=== PATIENT | female | born 2000 | race Caucasian/White ===

== ENCOUNTER 2022-09-24 19:43 | Outpatient (REF) | payer OTHER, SELFPAY ==
[2022-09-29 10:08] LABS: Age Gdln ACOG Testing Note (.); IGP, rfx Aptima HPV ASCU Note (.)
== END 2022-09-24 19:44 | disposition home or self-care (01) ==
LOC: LAB 19:43
PROVIDERS: Visit Provider Physician Assistant
DX: Z12.4 Encounter for screening for malignant neoplasm of cervix (principal); Z11.51 Encounter for screening for human papillomavirus (HPV)
CPT/HCPCS: G0145

== ENCOUNTER 2022-10-15 11:09 | Outpatient (OUT) | payer OTHER, SELFPAY ==
--- NOTE | 2022-10-15 11:15 | US_ITS ---
The [address] [address] Patient Name: SOCORRO VALENCIA MRN: [id number] date: 2000 Sex: F Assigned Patient Location: US Current Patient Location: US Accession/Order Number: [id number] Exam Date: 10/15/2022 11:15 Report Date: 10/15/2022 12:07 At the request of: ARIELA ALEJANDRO Procedure: US pelvis w/ transvaginal EXAMINATION: US pelvis w/ transvaginal HISTORY: MENORRHAGIA COMPARISON: Ultrasound pelvis 10/18/2021 TECHNIQUE: Transabdominal and/or transvaginal sonographic examination was performed as indicated by examination type. FINDINGS: UTERUS: Normal size and appearance. Uterus size: 8.6 x 5.0 x 6.7 cm. ENDOMETRIUM: Normal homogeneous appearance. Endometrial thickness: 10 mm RIGHT OVARY: Contains numerous follicles of varying size throughout the ovary. Duplex Doppler demonstrates normal waveform and flow; resistive index 0.6. Ovary size: 5.3 x 2.6 x 2.6 cm LEFT OVARY: Contains numerous follicles of varying size throughout the ovary. Duplex Doppler demonstrates normal waveform and flow; resistive index 0.7. Ovary size: 3.9 x 2.0 x 3.0 cm CUL-DE-SAC: Unremarkable. No significant free fluid. BLADDER: Unremarkable. OTHER: None. US/US pelvis w/ transvaginal IMPRESSION: 1. Unremarkable uterus. No specific findings to account for patient's symptoms. 2. Both ovaries contain numerous follicles, which can be seen with polycystic ovarian syndrome, but the distribution throughout the ovary and variable size size is not typical for PCOS. Electronically authenticated by: EVELIA LLAMAS Date: 10/15/2022 12:07
== END 2022-10-15 11:10 | disposition home or self-care (01) ==
LOC: US 11:10
PROVIDERS: Visit Provider Obstetrics & Gynecology
DX: N92.1 Excessive and frequent menstruation with irregular cycle (principal)
CPT/HCPCS: 76830; 76856

== ENCOUNTER 2023-01-22 08:43 | Outpatient (OUT) | payer OTHER, SELFPAY | END 2023-01-22 08:44 | disposition home or self-care (01) | PROVIDERS: Visit Provider Obstetrics & Gynecology | DX: Z01.818 Encounter for other preprocedural examination (principal); N92.0 Excessive and frequent menstruation with regular cycle; N93.9 Abnormal uterine and vaginal bleeding, unspecified; R10.2 Pelvic and perineal pain ==

== ENCOUNTER 2023-02-05 06:08 | Day surgery (SDC) | payer OTHER, SELFPAY ==
[2023-01-22 09:17] VITALS: BP 118/70; PULSE 63; RESP 14; TEMP 36.3; O2SAT 98; BMI 25.3
[2023-02-05] VITALS (9 sets, daily range): BP systolic 92–112; BP diastolic 49–71; PULSE 55–88; RESP 10–24; TEMP 36.3–36.6; O2SAT 97–99; BMI 25.1
[2023-02-05 06:19] LABS: Basophils Absolute Auto 0.1 10^3/uL (0.0-0.1); Basophils Percent Auto 0.9 % (0.2-2.0); Eosinophils Absolute Auto 0.1 10^3/uL (0.0-0.7); Eosinophils Percent Auto 1.7 % (0.9-7.0); Hemoglobin 14.2 g/dL (12.0-16.0); Immature Granulocytes Abs Auto 0.01 10^3/uL (0.00-0.03); Immature Granulocytes Pct Auto 0.2 % (0.0-0.5); Lymphocytes Absolute Auto 2.7 10^3/uL (1.2-3.8); Lymphocytes Percent Auto 40.6 % (20.5-60.0); Mean Corpuscular Hemoglobin 31.6 pg (26.7-34.0); Mean Corpuscular Volume 95.6 fL (81.0-99.0); Mean Platelet Volume 10.2 fL (9.5-13.5); Monocytes Absolute Auto 0.4 10^3/uL (0.3-0.8); Monocytes Percent Auto 6.3 % (1.7-12.0); Neutrophils Absolute Auto 3.3 10^3/uL (1.4-6.5); Neutrophils Percent Auto 50.3 % (43.0-75.0); Platelet Count 243 10^3/uL (150-450); Red Cell Distribution Width 12.4 % (11.0-15.0); White Blood Count 6.5 10^3/uL (4.0-11.0)
[2023-02-05 06:36] LABS: HCG Quantitative <1 mIU/mL
[2023-02-05] MEDS: LACTATED RINGER'S SOLUTION 1,000 ML 50 ML IV (06:41)
[2023-02-05] MEDS: HYDROMORPHONE HCL 0.5 MG/0.5 ML SYRINGE IV (08:32)
--- NOTE | 2023-02-05 08:44 | PC.NURSE ---
Peripad dry; having urge to void; placed on bedpan
--- NOTE | 2023-02-05 08:47 | PC.NURSE ---
Removed from bedpan; unable to void. Peripad dry
[2023-02-05] MEDS: HYDROCODONE/ACET 5-325 MG TABLET 1 TAB PO (09:09)
--- NOTE | 2023-02-05 09:33 | PC.NURSE ---
Denies urge to void; peripad dry
--- NOTE | 2023-02-05 09:43 | PC.NURSE ---
Up to bathroom and voids clear yellow without difficulty; scant bloody drainage on peripad
--- NOTE | 2023-02-05 10:31 | PM.ONB ---
Brief Operative Note Date of procedure: 02/05/23 Pre-op diagnosis: menorrhagia Post-op diagnosis: same as pre-op Procedure: NAME OF PROCEDURE: [ ] Radha endometrial ablation with hysteroscopy. PROCEDURE: The patient was taken back to the OR where she was prepped and draped in the normal sterile fashion after being placed in the dorsal lithotomy position, after being placed under general anesthesia without difficulty.? A weighted speculum was placed into the vagina. The anterior lip was grasped with a single tooth tenaculum. The patient was then sounded to approximated 8cm. The patient?s cervix was gently dilated using hegardilators. The hysteroscope was passed through the cervix into the uterus where both ostia were seen. No gross evidence of polyps, fibroids or malignancy. The cervical length was noted to be 4 cm. The total cavity length is 4cm.? The Radha ablation apparatus was set to approximately 4cm in length. This was placed through the cervix and into the uterus. After the seal was tested, at that time the total ablation of 120 seconds was performed with the Radha withoutdifficulty. All instruments were removed from the vagina. Excellent hemostasis noted.? Sponge and lap count correct times 2.? Patient taken to recovery in stable condition. Anesthesia: GETA Surgeon: Shaan Witt Estimated blood loss (mL): 5 Pathology: none sent Condition: stable Disposition: PACU
== END 2023-02-05 09:50 | disposition home or self-care (01) ==
PROVIDERS: Visit Provider Obstetrics & Gynecology
PROC: (CPT 952; principal; 2023-02-05 07:30)
DX: N92.0 Excessive and frequent menstruation with regular cycle (principal); N93.9 Abnormal uterine and vaginal bleeding, unspecified; R10.2 Pelvic and perineal pain; F32.A Depression, unspecified; F17.210 Nicotine dependence, cigarettes, uncomplicated
CPT/HCPCS: 58563; 36415; 84702; 85025; J1170; J2704

== ENCOUNTER 2023-12-13 20:29 | Outpatient (REF) | payer BC, SELFPAY ==
--- OUTSIDE RECORDS SUMMARY | 2023-12-13 20:34 | XMS_ITS | CCD ---
Author Organization [facility] Care Team Providers Care Director Property Name Role Phone GIGI MITCH ALLISON Unavailable CHANDANA Armstrong Unavailable Unavailable NO PRIMARY CARE, Unavailable Unavailable Lilliam Gonzalez Primary Care Physician Fernanda MNUROE Unavailable Raquel Nolan Primary Care Physician [phone] Unavailable Primary Care Provider Unavailhoney WITT ., DR TITUS Admitting Unavailable ALMA NOLAN Primary Care Unavailable JAVON ., DR TITUS Attending Unavailable JAVON ., DR TITUS Consulting Unavailable RAD LICEA Consulting Unavailable STEW IIKAYA Consulting Unavailable JAVON ., DR TITUS Attending Unavailable JAVON ., DR TITUS Admitting Unavailable JAVON ., DR TITUS Admitting Unavailable JAVON ., DR TITUS Attending Unavailable JAVON ., DR TITUS Consulting Unavailable ZIEBER, DR EVELIA Gutierrez Consulting Unavailable JAVON ., DR TITUS Admitting Unavailable MILFORD, DR BAO Painter Consulting Unavailable RAQUEL NOLANH Primary Care Unavailable JAVON ., DR TITUS Attending Unavailable JAVON ., DR TITUS Consulting Unavailable DO Amberly Whitehead Attending Unavailable Jacinto Mendiola Attending Unavailable Tony Aguirre Attending Unavailable Tony Aguirre Attending Unavailable Tony Aguirre Admitting Unavailable MARY NARAYAN Attending Unavailab ARIADNA Monsivais Attending Unavailable HENRRY PORRAS Attending Unavailable RAQUEL NOLAN Attending Unavailable TERESA AGUIRRE Attending Unavailable TERESA AGUIRRE Attending Unavailable Medications Current Medications Medication Drug Class(es) Dates Sig (Normalized) Sig (Original) acetaminophen 325 mg / HYDROcodone bitartrate 5 mg oral tablet (2 sources) Opioid Agonist Start: 09-18-2021 [place] 325 mg-5 mg oral tablet 1 tab(s), Oral, q6hr for pain, 10 tab(s), Refill(s) 0 Start Date: 09/18/21 Status: Ordered amoxicillin 875 mg / clavulanate 125 mg oral tablet (1 source) Penicillin-class Antibacterial Start: 09-18-2021 End: 09-28-2021 Augmentin 875 mg-125 mg Tab 1 tab(s), Oral, q12hr for 10 day(s), 20 tab(s), Refill(s) 0 Start Date: 09/18/21 Stop Date: 09/28/21 Status: Ordered cephalexin 500 mg oral capsule (4 sources) Cephalosporin Antibacterial Start: 06-16-2020 take 1 capsule by mouth every twelve hours Keflex 500 mg Cap 500 mg = 1 cap(s), Oral, q12hr, # 14 cap(s), Refills(s) 0, Pharmacy: [facility], 175, cm, 06/16/20 13:40:00 EDT, Height/Length Dosing, 70.8, kg, 06/16/20 13:40:00 EDT, Weight Dosing Start Date: 06/16/20 Status: Ordered dicyclomine hydrochloride 10 mg oral capsule (1 source) Anticholinergic Start: 09-18-2021 End: 09-25-2021 take 1 capsule by mouth four times daily Bentyl 10 mg Cap 10 mg = 1 cap(s), Oral, QID, X 7 day(s), # 14 cap(s), Refills(s) 0 Start Date: 09/18/21 Stop Date: 09/25/21 Status: Ordered levonorgestrel 0.330695 mg/hr intrauterine system (4 sources) Progestin, Progestin-containing Intrauterine Device Start: 08-29-2019 Liletta 52 mg IUD Refills(s) 0 Start Date: 08/29/19 Status: Ordered Start: 08-29-2019 Liletta 52 mg IUD Refills(s) 0 Start Date: 08/29/19 Status: Ordered methocarbamol 500 mg oral tablet (1 source) Muscle Relaxant Start: 06-29-2023 End: 07-02-2023 take 1 tablet by mouth three times daily Robaxin 500 mg Tab 500 mg = 1 tab(s), Oral, TID, X 3 day(s), # 9 tab(s), Refills(s) 0, Pharmacy: [facility] 1985, 175, cm, 06/29/23 19:28:00 EDT, Height/Length Dosing, 82, kg, 06/29/23 19:28:00 EDT, Weight Dosing Start Date: 06/29/23 Stop Date: 07/02/23 Status: Ordered naproxen 500 mg oral tablet (1 source) Nonsteroidal Anti-inflammatory Drug Start: 06-29-2023 take 1 tablet by mouth twice daily as needed for pain Naprosyn 500 mg Tab 500 mg = 1 tab(s), Oral, BID, PRN for pain, # 20 tab(s), Refills(s) 0, Pharmacy: [facility], 175, cm, 06/29/23 19:28:00 EDT, Height/Length Dosing, 82, kg, 06/29/23 19:28:00 EDT, Weight Dosing Start Date: 06/29/23 Status: Ordered ondansetron 4 mg oral tablet (4 sources) Serotonin-3 Receptor Antagonist Start: 09-18-2021 take 1 tablet by mouth every eight hours as needed for nausea Zofran 4 mg Tab 4 mg = 1 tab(s), Oral, q8hr, PRN Nausea/Vomiting, # 12 tab(s), Refills(s) 0 Start Date: 09/18/21 Status: Ordered Comment on above: Take 4 mg by mouth e very 8 hours as needed for nausea/vomiting. Zofran ODT 4 mg Tab-Dis (3 sources) Start: 06-29-2023 take 1 tablet by mouth every eight hours Zofran ODT 4 mg Tab-Dis 4 mg = 1 tab(s), Oral, q8hr, # 12 tab(s), Refills(s) 0, Pharmacy: [facility], 175, cm, 06/29/23 19:28:00 EDT, Height/Length Dosing, 82, kg, 06/29/23 19:28:00 EDT, Weight Dosing Start Date: 06/29/23 Status: Ordered Start: 02-16-2023 take 1 tablet by sloan th every eight hours as needed for nausea Zofran ODT 4 mg Tab-Dis 4 mg = 1 tab(s), Oral, q8hr, PRN Nausea/Vomiting, # 20 tab(s), Refills(s) 0, Pharmacy: [facility] 1986, 175.3, cm, 02/16/23 5:18:00 EST, Height/Length Dosing, 76, kg, 02/16/23 5:18:00 EST, Weight Dosing Start Date: 02/16/23 Status: Ordered Completed/Discontinued Medications Medication Drug Class(es) Dates Sig (Normalized) Sig (Original) amoxicillin 875 mg oral tablet (2 sources) Penicillin-class Antibacterial take 1 tablet by mouth twice daily amoxicillin (AMOXIL) 875 mg tablet Take 875 mg by mouth twice daily. 0 Active Comment on above: Take 875 mg by mouth twice daily. polyethylene glycol 3350 84490 mg powder for oral solution (2 sources) Osmotic Laxative Start: 10-10-2021 polyethylene glycol 3350 (MIRALAX) 17 gram/dose powder Take 17 g by mouth once daily. Dissolve dose in 4 - 8 ounces of liquid and take as directed. 507 g 5 10/10/2021 Active Comment on above: Take 17 g by mouth o nce daily. Dissolve dose in 4 - 8 ounces of liquid and take as directed. Problems Active Problems Problem Classification Problem Date Documented Da te Episodic/Chronic Abdominal pain (2 sources) Abdominal pain; Translations: [Unspecified abdominal pain] Onset: 11-17-2021 Episodic Contraceptive and procreative management (4 sources) Encounter for sterilization; Translations: [ENCOUNTER FOR STERILIZATION] Onset: 06-24-2022 Episodic Endometriosis (1 source) Endometriosis; Translations: [ENDOMETRIOSIS RT OVARY UNSPEC DEPTH] Onset: 07-08-2022 Headache; including migraine (1 source) Headache; Translations: [Headache, unspecified] Onset: 06-29-2023 Episodic Menstrual disorders (4 sources) Irregular menstruation, unspecified; Translations: [IRREGULAR MENSTRUATION UNSPECIFIED] Onset: 10-18-2021 Chronic Mood disorders (7 sources) Depressive disorder 12-28-2018 Chronic Nausea and vomiting (3 sources) Vomiting; Translations: [Vomiting, unspecified] Onset: 11-17-2021 Episodic Noninfectious gastroenteritis (3 sources) Noninfectious enteritis; Translations: [Noninfective gastroenteritis and colitis, unspecified] Onset: 09-18-2021 Episodic Other female genital disorders (2 sources) Abnormal uterine bleeding; Translations: [Abnormal uterine and vaginal bleeding, unspecified] Onset: 07-16-2021 Chronic Other female genital disorders (1 source) Other specified noninflammatory disorders of vagina; Translations: [OTH SPEC NONINFLAMMATORY D/O VAGINA] Onset: 07-08-2022 Episodic Other gastrointestinal disorders (2 sources) Constipation; Translations: [Constipation, unspecified] Episodic Other gastrointestinal disorders (2 sources) Diarrhea; Translations: [Diarrhea, unspecified] Onset: 11-17-2021 Episodic Other and delivery including normal (7 sources) Normal 05-03-2019 Episodic Ovarian cyst (2 sources) Cyst of ovary; Translations: [Unspecified ovarian cyst, unspecified side] Onset: 09-18-2021 Episodic Substance-related disorders (16 sources) Smoker; Translations: [Nicotine dependence, cigarettes, uncomplicated] Onset: 06-11-2022 Resolved: 09-25-2016 11-21-2018 Chronic Comment on above: Added secondary to d ocumentation in Social History. Added secondary to d ocumentation in Social History. Syncope (1 source) Syncope and collapse; Translations: [Syncope and collapse] Onset: 02-16-2023 Episodic Past or Other Problems Problem Classification Problem Date Documented Da te Episodic/Chronic Unclassified (14 sources) Onset: 09-11-2017 Resolved: 07-18-2019 11-04-2017 Results Test Name Value Interpretation Reference Range Facility B hCG [place] 06-30-2023 Beta HCG ( test) Ql Negative Normal [facility] Comment on above: Performed By: #### 2 [id number], [id number], [id number], [id number], [id number], [id number] ####[facility] [id number] [place] [address] CT Abdomen/Pelvis w/ Contras ton 06-30-2023 CT Abdomen/Pelvis w/ Contrast Exam Date/Time: 06/29/2023 22:13 EDT Reason for Exam: Abdominal pain, acute, nonlocalized;Other (please specify) Report IMPRESSION: NO EVIDENCE OF ACUTE ABDOMINAL OR PELVIC PATHOLOGY. CLINICAL HISTORY: Abdominal pain, acute, nonlocalized. COMPARISON: 09/17/2021. COMMENT: Images were obtained following the administration of Intravenous contrast. The liver, spleen, pancreas, gallbladder, adrenal glands, and kidneys are normal in appearance. The renal collecting systems are not dilated. No retroperitoneal lymphadenopathy is evident. The abdominal aorta is normal. No aneurysm is noted. Evaluation of bowel is limited. The bowel loops are not dilated, and there is no evidence of bowel obstruction. The appendix is normal. Fecal material in the colon limits evaluation. There is no evidence of colitis or diverticulitis. No abdominal inflammatory complex nor free air nor free fluid is noted. The uterus is retroverted. There are small follicular ovarian cysts bilaterally. There is little fluid in the lumen of the urinary bladder, and lack of fluid distention of the bladder limits assessment. No bladder calculus is evident. No pelvic mass nor pelvic lymphadenopathy is noted. The visualized bones are unremarkable. All CT scans at this facility use dose modulation, iterative reconstruction, and/or weight based dosing when appropriate to reduce radiation dose to as low as reasonably achievable. Unless otherwise stated, incidental findings identified in this report do not require routine follow-up imaging. Ordering Provider: Amberly Whitehead FINAL REPORT Dictated: 06/30/2023 10:32 am Pk Foley M.D. Signed (Electronic Signature): 06/30/2023 10:32 am Signed by: Pk Foley M.D. Transcribed by: KEE Technologist: ABIGAIL Technical Comments GFR (mL/min/1/73m2) n/a-age Contrast: Isovue 300 Contrast amount in ml's: 100 Normal [facility] CT Head or Brain w/o Contras ton 06-30-2023 CT Head or Brain w/o Contrast Exam Date/Time: 06/29/2023 22:13 EDT Reason for Exam: Headache, new or worsening, neuro deficit;Other (please specify) Report IMPRESSION: NEGATIVE CT SCAN OF THE BRAIN. CLINICAL HISTORY: Headache, new or worsening, neuro deficit. COMMENT: Unenhanced images were obtained. The ventricles and basal cisterns and cortical sulci appear normal. There is no mass effect nor midline shift. No abnormal attenuation within the brain is noted. There is no evidence of intracranial hemorrhage nor extra-axial hematoma. No mass lesion is evident. No skull fracture is noted. All CT scans at this facility use dose modulation, iterative reconstruction, and/or weight based dosing when appropriate to reduce radiation dose to as low as reasonably achievable. Ordering Provider: Amberly Whitehead FINAL REPORT Dictated: 06/30/2023 8:43 am Pk Foley M.D. Signed (Electronic Signature): 06/30/2023 8:43 am Signed by: Pk Foley M.D. Transcribed by: KEE Technologist: ABIGAIL Normal [facility] Discharge Instructionson Discharge Instructions [id number] #[id number] Normal [facility] ED Clinical Summaryon 2023 ED Clinical Summary [place] [id number] ED Clinical Summary Person Information Name: SOCORRO JOSEPH [facility] Age: 22 Years : 2000 Sex: Female Language: Wolof PCP: Raquel Nolan MD Marital Status: Single Visit Id: Visit Reason: Vomiting; Nausea; Headache; PAIN IN BACK OF NECK AND HEAD LEFT SIDE Speciality: Acuity: 3 Enc Type: Emergency Med Service: Emergency Arrival: 06/29/2023 19:10:29 Discharge: 06/30/2023 00:02:52 LOS: 000 04:52 Checkin: 06/29/2023 19:10:29 Checkout: 06/30/2023 00:02:52 Dispo Type: Home (Routine DC) EVENTS: Event Name Event Status Request Date/Time Start Date/Time Complete Date/Time Arrive Complete 06/29/2023 19:10:29 06/29/2023 19:10:29 06/29/2023 19:10:29 Document Home Meds Request 06/29/2023 19:10:29 Triage Complete 06/29/2023 19:10:29 06/29/2023 19:28:56 06/29/2023 19:28:56 Registration Complete 06/29/2023 19:13:57 06/29/2023 19:13:57 06/29/2023 19:13:57 Reg Complete Request 06/29/2023 19:13:57 Reg Bed Request Complete 06/29/2023 19:13:57 06/29/2023 19:13:57 06/29/2023 19:13:57 Bed Assign Complete 06/29/2023 20:03:28 06/29/2023 20:03:28 06/29/2023 20:03:28 Dr Exam Complete 06/29/2023 20:03:28 06/29/2023 20:05:22 06/29/2023 20:05:22 RN Exam Complete 06/29/2023 20:03:28 06/29/2023 20:22:09 06/29/2023 20:22:09 Registration Request 06/29/2023 20:05:22 Meds Admin Complete 06/29/2023 21:01:22 06/29/2023 21:27:45 Pending Labs Complete 06/29/2023 21:01:22 06/29/2023 22:03:06 Lab Complete 06/29/2023 21:01:22 06/29/2023 21:52:52 CT Complete 06/29/2023 21:01:22 06/29/2023 21:35:32 06/29/2023 22:13:21 Pending Labs Complete 06/29/2023 21:34:28 06/29/2023 21:34:28 06/29/2023 21:52:52 Lab Complete 06/29/2023 21:34:28 06/29/2023 21:34:28 06/29/2023 21:52:52 Discharge Complete 06/29/2023 23:51:28 06/30/2023 00:02:57 06/30/2023 00:02:57 Transfer Complete 06/30/2023 00:02:57 06/30/2023 00:02:57 06/30/2023 00:02:57 ADDRESS: [address] [place] [id number] PHYS DOC NOTES: MEDICAL INFORMATION: Prescriptions Given: New Medications [facility], [address] [place], [place] [id number], [phone] methocarbamol (Robaxin 500 mg Tab) 1 Tablets By Mouth 3 times a day for 3 Days. Refills: 0. naproxen (Naprosyn 500 mg Tab) 1 Tablets By Mouth 2 times a day as needed for pain. Refills: 0. Medications to Continue Taking That Have Changed [facility], [address] [place], [place] [id number], [phone] START: ondansetron (Zofran ODT 4 mg Tab-Dis) 1 Tablets By Mouth every 8 hours. Refills: 0. Other Medications START: ondansetron (Zofran ODT 4 mg Tab-Dis) 1 Tablets By Mouth every 8 hours as needed Nausea/Vomiting. Refills: 0. PATIENT EDUCATION INFORMATION: Instructions: Nausea and Vomiting, Adult, Ozmf-so-Aqyo; General Headache Without Cause, Pwtg-hi-Slxc; Abdominal Pain, Adult, Rtsx-oz-Iqut Follow up: With: Address: When: Raquel [place] [address] Business (1) In 3 days 07/02/2023 Comments: You can take the medications as prescribed as needed for pain. Please follow-up with your primary care doctor in the next 2 to 3 days for further evaluation management. Please return to the ED for any new or worsening symptoms. DIAGNOSIS: Abdominal pain, acute; Headache; N&V (nausea and vomiting) Normal [facility] ED Note-Physicianon 06-30-19 ED Note-Physician Basic Information Time Seen: Amberly Whitehead DO 06/29/2023 20:05 Chief Complaint Pt. reports headache since wednesday and today associated with nuasea and abdominal pain. History of Present Illness Patient is a 22-year-old female with no past medical history presenting to the ED for evaluation of headache, in addition to nausea and abdominal pain. Patient states she has had tightness in her neck since Wednesday, wrapping around to the front of her head with some blurred vision in her left eye. Patient states today started having nausea vomiting in addition to left lower quadrant abdominal pain. Patient denies recent falls, trauma, fevers, chills, dizziness or lightheadedness. Denies previous history of headaches. Review of Systems A 10 point review of systems is negative except as noted above. Medical and Surgical History: Reviewed and noted Social history: Lives at home Tobacco: Denies Physical Exam Vitals & Measurements T: 36.9 ?C(Oral) HR: 58(Peripheral) RR: 16 BP: 115/57 SpO2: 99% HT: 175 cm WT: 82 kg BMI: 26.78 General: Well developed, non toxic appearing, no acute distress HEENT: Head atraumatic, Mucosa moist, hearing grossly normal Neck: No JVD, tracheal deviation Cardiac: Regular rate, rhythm, no murmurs, or gallops, 2+ radial pulses Respiratory: Lungs clear to auscultation B/L, normal respiratory effort Abdomen: Soft, mild tenderness palpation of the left lower quadrant no rebound or guarding, no peritoneal signs Extremities: No edema noted in the LE B/L, no tenderness to palpation Neurologic: Alert and oriented, speech clear cranial nerves III through XII intact, no focal neurologic deficits, no ataxia with finger-nose testing Skin: No rashes or lesions Psych: Appropriate mood and behavior Medical Decision Making MEDICAL DECISION MAKING Number and Complexity of Problems Differential Diagnosis: [] [facility] Data External documents reviewed: [] My EKG interpretation: [] My CT interpretation: [] My X-ray interpretation: [] My Ultrasound interpretation: [] Decision rules/scores evaluated: [] Discussed with: [] Treatment and Disposition ED Course: Patient is a 22-year-old female presenting to the ED for evaluation of headache, abdominal pain, nausea and vomiting. Patient is nontoxic and on arrival, no acute distress. No focal deficits noted on examination. Laboratory evaluation is obtained is unremarkable, urinalysis is without signs of infection. Patient is given Toradol, Reglan, IV fluids in addition to Benadryl and Decadron for treatment of her headache. CT imaging is ordered. Patient's laboratory evaluation is unremarkable, urinalysis without signs of infection. CT imaging shows no acute findings, CT ab pelvis does not show any acute intra-abdominal pathology. On reevaluation patient is feeling improved. Discussed findings with patient she is comfortable with discharge home. She is discharged home with Debora Robaxin in addition to Zofran. She is follow-up with her primary care doctor in the next 2 to 3 days. She is to return to the ED for any new or worsening symptoms. Shared decision making: [] Code status: [] Assessment/Plan Abdominal pain, acute (R10.9: Unspecified abdominal pain) Headache (R51.9: Headache, unspecified) N&V (nausea and vomiting) (R11.2: Nausea with vomiting, unspecified) Orders: dexamethasone, 10 mg = 2.5 mL, Injection, IV Push, Once, Stop date 06/29/23 21:00:00 EDT, STAT, Start date 06/29/23 21:00:00 EDT, 06/29/23 21:00:00 EDT diphenhydrAMINE, 25 mg = 0.5 mL, Injection, IV Push, Once, Stop date 06/29/23 21:00:00 EDT, STAT, Start date 06/29/23 21:00:00 EDT, 06/29/23 21:00:00 EDT ketorolac, 30 mg = 1 mL, Injection, IV Push, Once, Stop date 06/29/23 21:00:00 EDT, STAT, Start date 06/29/23 21:00:00 EDT, 06/29/23 21:00:00 EDT methocarbamol, 500 mg = 1 tab(s), Oral, TID, X 3 day(s), # 9 tab(s), Refills(s) 0, Pharmacy: [facility] 1985, 175, cm, 06/29/23 19:28:00 EDT, Height/Length Dosing, 82, kg, 06/29/23 19:28:00 EDT, Weight Dosing metoclopramide, 10 mg = 2 mL, Injection, IV Push, Once, Stop date 06/29/23 21:00:00 EDT, STAT, Start date 06/29/23 21:00:00 EDT, 06/29/23 21:00:00 EDT naproxen, 500 mg = 1 tab(s), Oral, BID, PRN for pain, # 20 tab(s), Refills(s) 0, Pharmacy: [facility] 1985, 175, cm, 06/29/23 19:28:00 EDT, Height/Length Dosing, 82, kg, 06/29/23 19:28:00 EDT, Weight Dosing ondansetron, 4 mg = 1 tab(s), Oral, q8hr, # 12 tab(s), Refills(s) 0, Pharmacy: [facility] 1985, 175, cm, 06/29/23 19:28:00 EDT, Height/Length Dosing, 82, kg, 06/29/23 19:28:00 EDT, Weight Dosing Sodium Chloride 0.9% intravenous solution, 1,000 mL, Soln-IV, IV, Once, Stop date 06/29/23 21:00:00 EDT, STAT, Start date 06/29/23 21:00:00 EDT, Infuse over 61, minute(s) Basic Metabolic Panel Beta hCG Qual CBC w/ Auto Diff CT Abdomen/Pelvis w/ Contrast CT Head or Brain w/o Contrast eGFR Hepatic Function Panel Lipase Level UA with Cult Rfl (more content not included)... Normal [facility] Comment on above: Result Comment: Elec tronically Signed By: Amberly Whitehead DO\.br\Date and Time Signed: 06/29/23 23:56 EDT ED Patient Education Noteon 06-30-2023 ED Patient Education Note Gastroenterolo gy Nausea and Vomiting, Adult Nausea is feeling that you have an upset stomach and that you are about to vomit. Vomiting is when food in your stomach forcefully comes out of your mouth. Vomiting can make you feel weak. If you vomit, or if you are not able to drink enough fluids, you may not have enough water in your body (get dehydrated). If you do not have enough water in your body, you may: ? Feel tired. ? Feel thirsty. ? Have a dry mouth. ? Have cracked lips. ? Pee (urinate) less often. Older adults and people with other diseases or a weak body defense system (immune system) are at higher risk for not having enough water in the body. If you feel like you may vomit or you vomit, it is important to follow instructions from your doctor about how to take care of yourself. Follow these instructions at home: Watch your symptoms for any changes. Tell your doctor about them. Eating and drinking ? Take an ORS (oral rehydration solution). This is a drink that is sold at pharmacies and stores. ? Drink clear fluids in small amounts as you are able, such as: ? Water. ? Ice chips. ? Fruit juice that has water added (diluted fruit juice). ? Low-calorie sports drinks. ? Eat bland, twqb-hr-hempnx foods in small amounts as you are able, such as: ? Bananas. ? Applesauce. ? Rice. ? Low-fat (lean) meats. ? Dane. ? Crackers. ? Avoid drinking fluids that have a lot of sugar or caffeine in them. This includes energy drinks, sports drinks, and soda. ? Avoid alcohol. ? Avoid spicy or fatty foods. General instructions ? Take nthq-zhl-ktrhmqq and prescription medicines only as told by your doctor. ? Drink enough fluid to keep your pee (urine) pale yellow. ? Wash your hands often with soap and water for at least 20 seconds. If you cannot use soap and water, use hand donor services manager. ? Make sure that everyone in your home washes their hands well and often. ? Rest at home until you feel better. ? Watch your condition for any changes. ? Take slow and deep breaths when you feel like you may vomit. ? Keep all follow-up visits. Contact a doctor if: ? Your symptoms get worse. ? You have new symptoms. ? You have a fever. ? You cannot drink fluids without vomiting. ? You feel like you may vomit for more than 2 days. ? You feel light-headed or dizzy. ? You have a headache. ? You have muscle cramps. ? You have a rash. ? You have pain while peeing. Get help right away if: ? You have pain in your chest, neck, arm, or jaw. ? You feel very weak or you faint. ? You vomit again and again. ? You have vomit that is bright red or looks like black coffee grounds. ? You have bloody or black poop (stools) or poop that looks like tar. ? You have a very bad headache, a stiff neck, or both. ? You have very bad pain, cramping, or bloating in your belly (abdomen). ? You have trouble breathing. ? You are breathing very quickly. ? Your heart is beating very quickly. ? Your skin feels cold and clammy. ? You feel confused. ? You have signs of losing too much water in your body, such as: ? Dark pee, very little pee, or no pee. ? Cracked lips. ? Dry mouth. ? Sunken eyes. ? Sleepiness. ? Weakness. These symptoms may be an emergency. Get help right away. Call 911. ? Do not wait to see if the symptoms will go away. ? Do not drive yourself to the hospital. Summary ? Nausea is feeling that you have an upset stomach and that you are about to vomit. Vomiting is when food in your stomach comes out of your mouth. ? Follow instructions from your doctor about eating and drinking. ? Take encd-dwy-spqzoei and prescription medicines only as told by your doctor. ? Contact your doctor if your symptoms get worse or you have new symptoms. ? Keep all follow-up visits. This information is not intended to replace advice given to you by your health care provider. Make sure you discuss any questions you have with your health care provider. Document Revised: 09/26/2021 Document Reviewed: 09/26/2021 [employer] Patient Education ? 2022 [employer]. Abdominal Pain, Adult Many things can cause belly (abdominal) pain. Most times, belly pain is not dangerous. Many cases of belly pain can be watched and treated at home. Sometimes, though, belly pain is serious. Your doctor will try to find the cause of your belly pain. Follow these instructions at home: Medicines ? Take ogph-yro-olauqxv and prescription medicines only as told by your doctor. ? Do not take medicines that help you poop (laxatives) unless told by your doctor. General instructions ? Watch your belly pain for any changes. ? Drink enough fluid to keep your pee (urine) pale yellow. ? Keep all follow-up visits as told by your doctor. This is important. Contact a doctor if: ? Your belly pain changes or gets worse. ? You are not hungry, or y (more content not included)... Normal [facility] ED Patient Summaryon 024 ED Patient Summary [address], [place] [address] Patient Discharge Instructions Person Information Name: SOCORRO JOSEPH Age: 22 Years Arrival Date: 06/29/2023 19:10:29 Discharge Diagnosis: Abdominal pain, acute; Headache; N&V (nausea and vomiting) Primary Care Physician: Raquel Nolan MD Provider Information Primary Provider: Amberly Whitehead DO Advanced Sole Buffer:None The exam and treatment you received in the Emergency Department were for an urgent problem and are not intended as complete care. It is important that you follow up with a doctor, nurse practitioner, or physician?s programs assistant for ongoing care. If your symptoms become worse or you do not improve as expected and you are unable to reach your usual health care provider, you should return to the Emergency Department. We are available 24 hours a day. SOCORRO JOSEPH has been given the following list of patient education materials, prescriptions and follow-up instructions: Follow-up Instructions: With: Address: When: [place] [address] [place] [address] Business (1) In 3 days 07/02/2023 Comments: You can take the medications as prescribed as needed for pain. Please follow-up with your primary care doctor in the next 2 to 3 days for further evaluation management. Please return to the ED for any new or worsening symptoms. In the event that this physician does not participate in your insurance network, please consult with your insurance company to find a nearby participating provider. Patient Education Materials: Nausea and Vomiting, Adult, Jpym-ba-Hnzs; General Headache Without Cause, Ppoz-ll-Yoqt; Abdominal Pain, Adult, Kofa-ee-Afnj A MESSAGE TO ALL PATIENTS REGARDING OPIOIDS PRESCRIPTION OPIOIDS: WHAT YOU NEED TO KNOW Prescription opioids can be used to help relieve vhmtnndz-qk-qrtdct pain and are often prescribed following a surgery or injury, or for certain health conditions. These medications can be an important part of the treatment but also come with serious risks. It is important to work with your healthcare provider to make sure you are getting the safest, most effective care. WHAT ARE THE RISKS AND SIDE EFFECTS OF OPIOID USE? Prescription opioids carry serious risks of addiction and overdose, especially with prolonged use. An opioid overdose, often marked by slowed breathing, can cause sudden . The use of prescription opioids can have a number of side effects as well, even when taken as directed: ? Tolerance?meaning you might need to take more of the medication for the same pain relief ? Physical dependence?meaning you have symptoms of withdrawal when a medication is stopped ? Increased sensitivity to pain ? Constipation ? Nausea, vomiting, and dry mouth ? Sleepiness and dizziness ? Confusion ? Depression ? Low levels of testosterone that can result in lower sex drive, energy, and strength ? Itching and sweating RISKS ARE GREATER WITH: ? History of drug misuse, substance use disorder, or overdose ? Mental health conditions (such as depression or anxiety) ? Sleep apnea ? Older age (65 years and older) ? Avoid alcohol while taking prescription opioids. Also, unless specifically advised by your health care provider, medications to avoid include: ? Benzodiazepines (such as Xanax or Valium) ? Muscle relaxants (such as Soma or Flexeril) ? Hypnotics (such as Ambien or Lunesta) ? Other prescription opioids KNOW YOUR OPTIONS Talk to your health care provider about ways to manage your pain that don?t involve prescription opioids. Some of these options may actually work better and have fewer risks and side effects. Options may include: ? Pain relievers such as acetaminophen, ibuprofen, and naproxen ? Some medication that are also used for depression or seizures ? Physical therapy and exercise ? Cognitive behavioral therapy, a psychological, goal-directed approach, in which patients learn how to modify physical, behavioral, and emotional triggers of pain and stress. IF YOU ARE PRESCRIBED OPIOIDS FOR PAIN: ? Never take opioids in greater amounts or more often than prescribed. ? Follow up with your primary health care provider. o Work together to create a plan on how to manage your pain. o Talk about ways to help manage your pain that don?t involve prescription opioids. o Talk about any and all concerns and side effects. ? Help prevent misuse and abuse o Never sell or share prescription opioids. o Never use another person?s prescription opioids. ? Store prescription opioids in a secure place and out of reach of others (this may include visitors, children, friends, and family). ? Safely dispose of unused prescription opioids: Find your community drug take-back program or your pharmacy mail-back program, or flush them down the toilet, follow (more content not included)... Normal [facility] Prescriptions/Work Noteson 0 06-30-2023 Prescriptions/Work Notes [id number] #1.00TIFF Normal [facility] RAD - Preliminary Cat Scan R eporton 06-30-2023 RAD - Preliminary Cat Scan Report [id number] #1.00TIFF Normal [facility] BMPon 06-29-2023 Anion gap [Moles/Vol] 9 mmol/L Normal 6-16 [facility] Comment on above: Performed By: #### 2 636514, 19442909, 1244374, 9355756, 63357770, 2004117 ####[facility] [address] [place] [address] Calcium [Mass/Vol] 9.0 mg/dL Normal 8.9-11.1 [facility] Comment on above: Performed By: #### 2 823513, 56946213, 2341316, 6150751, 41020906, 0911552 ####[facility] [address] [place] [address] Chloride [Moles/Vol] 104 mmol/L Normal 101-111 [facility] Comment on above: Performed By: #### 2 413947, 71950516, 2145748, 1753649, 28428095, 0277519 ####[facility] [address] [place] [address] CO2 [Moles/Vol] 27 mmol/L Normal 21-31 [facility] Comment on above: Performed By: #### 2 150081, 35914336, 7929643, 4273727, 12577800, 0259645 ####[facility] [address] [place] [address] Creatinine [Mass/Vol] 0.7 mg/dL Normal 0.5-1.3 [facility] Comment on above: Performed By: #### 2 701642, 57974513, 2682406, 4021485, 21898217, 8820743 ####[facility] [address] [place] [address] Glucose [Mass/Vol] 93 mg/dL Normal 55-199 [facility] Comment on above: Performed By: #### 2 312918, 37747317, 8980643, 1475695, 29177592, 3446306 ####[facility] [address] [place] [address] Potassium [Moles/Vol] 3.7 mmol/L Normal 3.5-5.3 [facility] Comment on above: Performed By: #### 2 832071, 17886430, 1580071, 7352138, 41337225, 6438707 ####[facility] [address] [place] [address] Sodium [Moles/Vol] 136 mmol/L Normal 135-145 [facility] Comment on above: Performed By: #### 2 496601, 62419206, 3163984, 4118757, 37114001, 8329304 ####[facility] [address] [place] [address] Urea nitrogen [Mass/Vol] 13 mg/dL Normal 5-21 [facility] Comment on above: Performed By: #### 2 448324, 56582991, 4544872, 9326750, 56811685, 6605507 ####[facility] [address] [place] [address] Urea nitrogen/Creatinine [Mass ratio] 19 No Units Normal 10-20 [facility] Comment on above: Performed By: #### 2 297853, 14586644, 4498489, 0509601, 87838419, 7985306 ####[facility] [address] [place] [address] CBC w/ Auto Diffon 4 Basophils/100 WBC (Bld) 0.3 % Normal 0.0-2.0 [facility] Comment on above: Order Comment: Per eva Salter, wait to poke until they try for an IV. [id number] 06/29/2023 21:16:35 EDT Performed By: #### 2 068600, 68834374, 1990167, 8203555, 02381891, 2129535 ####[facility] [address] [place] [address] Basophils/Leukocytes Auto (Bld) [Pure # fraction] 0.0 E9/L Normal 0.0-0.2 [facility] Comment on above: Order Comment: Per eva Salter, wait to poke until they try for an IV. [id number] 06/29/2023 21:16:35 EDT Performed By: #### 2 879108, 43352866, 3005984, 5000271, 92489137, 1991246 ####[facility] [address] [place] [address] Eosinophils (Bld) [#/Vol] 0.1 E9/L Normal 0.0-0.5 [facility] Comment on above: Order Comment: Per eva Salter, wait to poke until they try for an IV. [id number] 06/29/2023 21:16:35 EDT Performed By: #### 2 450230, 41232053, 8807909, 7430608, 51987486, 6837087 ####[facility] [address] [place] [address] Eosinophils/100 WBC (Bld) 1.2 % Normal 0.0-8.0 [facility] Comment on above: Order Comment: Per eva Salter, wait to poke until they try for an IV. [id number] 06/29/2023 21:16:35 EDT Performed By: #### 2 035877, 29349661, 3443899, 5026287, 22836668, 2451546 ####[facility] [address] [place] [address] Erythrocyte distribution width (RBC) [Ratio] 13.1 % Normal 10.9-14.2 [facility] Comment on above: Order Comment: Per eva Salter, wait to poke until they try for an IV. [id number] 06/29/2023 21:16:35 EDT Performed By: #### 2 016758, 20311769, 7336811, 6949136, 18584778, 7659959 ####[facility] [address] [place] [address] Hematocrit (Bld) [Volume fraction] 39.6 % Normal 34.0-46.0 [facility] Comment on above: Order Comment: Per r andrew Salter, wait to poke until they try for an IV. [id number] 06/29/2023 21:16:35 EDT Performed By: #### 2 751786, 51824768, 3289862, 5732379, 11114233, 0636905 ####[facility] [address] [place] [address] Hemoglobin (Bld) [Mass/Vol] 13.2 g/dL Normal 12.0-16.0 [facility] Comment on above: Order Comment: Per r andrew Salter, wait to poke until they try for an IV. [id number] 06/29/2023 21:16:35 EDT Performed By: #### 2 034818, 86831879, 7542153, 4776806, 64357623, 5191450 ####[facility] [address] [place] [address] Lymphocytes (Bld) [#/Vol] 2.0 E9/L Normal 1.0-4.0 [facility] Comment on above: Order Comment: Per r andrew Salter, wait to poke until they try for an IV. [id number] 06/29/2023 21:16:35 EDT Performed By: #### 2 399691, 49361776, 4282176, 9979405, 37636257, 4901259 ####[facility] [address] [place] [address] Lymphocytes/100 WBC (Bld) 22.0 % Normal 14.0-50.0 [facility] Comment on above: Order Comment: Per r andrew Salter, wait to poke until they try for an IV. [id number] 06/29/2023 21:16:35 EDT Performed By: #### 2 989577, 65019505, 4117433, 4228241, 19249411, 5528862 ####[facility] [address] [place] [address] MCH (RBC) [Entitic mass] 30.7 pg Normal 27.0-34.0 [facility] Comment on above: Order Comment: Per eva Salter, wait to poke until they try for an IV. [id number] 06/29/2023 21:16:35 EDT Performed By: #### 2 375208, 91379975, 4352656, 7097666, 56836779, 6501982 ####[facility] [address] [place] [address] MCHC (RBC) [Mass/Vol] 33.3 g/dL Normal 31.4-36.0 [facility] Comment on above: Order Comment: Per eva Salter, wait to poke until they try for an IV. [id number] 06/29/2023 21:16:35 EDT Performed By: #### 2 795233, 62731317, 1760593, 6493555, 37804639, 2520079 ####[facility] [address] [place] [address] MCV (RBC) [Entitic vol] 91.9 fL Normal 80.0-100.0 [facility] Comment on above: Order Comment: Per eva Salter, wait to poke until they try for an IV. [id number] 06/29/2023 21:16:35 EDT Performed By: #### 2 134792, 17228667, 4683361, 6245566, 26272670, 8046731 ####[facility] [address] [place] [address] Monocytes (Bld) [#/Vol] 0.4 E9/L Normal 0.2-1.0 [facility] Comment on above: Order Comment: Per eva Salter, wait to poke until they try for an IV. [id number] 06/29/2023 21:16:35 EDT Performed By: #### 2 414210, 20164992, 2704775, 5436493, 40040626, 9474934 ####[facility] [address] [place] [address] Neutrophils (Bld) [#/Vol] 6.5 E9/L Normal 2.0-7.5 [facility] Comment on above: Order Comment: Per eva Salter, wait to poke until they try for an IV. [id number] 06/29/2023 21:16:35 EDT Performed By: #### 2 567096, 86527108, 2608659, 8928672, 57981702, 6903804 ####[facility] [address] [place] [address] Neutrophils/100 WBC (Bld) 71.9 % Normal 36.0-75.0 [facility] Comment on above: Order Comment: Per eva Salter, wait to poke until they try for an IV. [facility] 06/29/2023 21:16:35 EDT Performed By: #### 2 485776, 61118042, 2857139, 4959104, 26759730, 6543614 ####[facility] [address] [place] [address] Platelet 216.0 E9/L Normal 150.0-500.0 [facility] Comment on above: Order Comment: Per eva Salter, wait to poke until they try for an IV. [facility] 06/29/2023 21:16:35 EDT Performed By: #### 2 143948, 08111973, 2254636, 8434936, 65205443, 1215648 ####[facility] [address] [place] [address] Platelet mean volume (Bld) [Entitic vol] 8.2 fL Normal 6.4-10.8 [facility] Comment on above: Order Comment: Per eva Salter, wait to poke until they try for an IV. [id number] 06/29/2023 21:16:35 EDT Performed By: #### 2 671732, 21026145, 8441926, 5851932, 29921137, 8151755 ####[facility] [address] [place] [address] RBC (Bld) [#/Vol] 4.3 E12/L Normal 4.3-5.9 [facility] Comment on above: Order Comment: Per eva Salter, wait to poke until they try for an IV. [id number] 06/29/2023 21:16:35 EDT Performed By: #### 2 671845, 47045012, 9594088, 3852637, 39997280, 1547065 ####[facility] [address] [place] [address] WBC corrected for nucl RBC Auto (Bld) [#/Vol] 9.0 E9/L Normal 4.0-11.0 [facility] Comment on above: Order Comment: Per eva Salter, wait to poke until they try for an IV. [id number] 06/29/2023 21:16:35 EDT Performed By: #### 2 924647, 88575963, 0295793, 0293287, 25980535, 6800982 ####[facility] [address] [place] [address] CHEMISTRYOrdered By: SYSTEM SYSTEM on 06-29-2023 Albumin [Mass/Vol] 4.3 g/dL Normal 3.3 - 5.0 gm/dL [facility] Albumin/Globulin [Mass ratio] 2.0 {ratio} Normal 1.1 - 2.2 [facility] ALP [Catalytic activity/Vol] 70 [iU]/d Normal 21 - 98 Int._Unit/L [facility] ALT No additional P-5'-P [Catalytic activity/Vol] 29 [iU]/d Normal 6 - 46 Int._Unit/L [facility] Anion gap [Moles/Vol] 9 mmol/L Normal 6 - 16 mEq/L [facility] AST [Catalytic activity/Vol] 17 [iU]/d Normal 5 - 43 Int._Unit/L [facility] Bilirubin [Mass/Vol] 0.9 mg/dL Normal 0.0 - 1 .1 mg/dL [facility] Bilirubin.direct [Mass/Vol] 0.1 mg/dL Normal 0.0 - 0.4 mg/dL [facility] Bilirubin.indirect [Mass or moles/Vol] 0.8 mg/dL Normal 0.1 - 0.9 mg/dL [facility] Calcium [Mass/Vol] 9.0 mg/dL Normal 8.9 - 11. 1 mg/dL [facility] Chloride [Moles/Vol] 104 mmol/L Normal 101 - 1 11 mmol/L [facility] CO2 [Moles/Vol] 27 mmol/L Normal 21 - 31 mmol/L [facility] Creatinine [Mass/Vol] 0.7 mg/dL Normal 0.5 - 1.3 mg/dL [facility] eGFR 123 mL/min/1.73 m2 Normal >=59mL/mi n/ 1.73 m2 [facility] Globulin (S) [Mass/Vol] 2.1 g/dL Normal 1.4 - 4.0 gm/dL [facility] Glucose [Mass/Vol] 93 mg/dL Normal 55 - 199 mg/dL [facility] Lipase [Catalytic activity/Vol] unit/L Low 13 - 58 unit/L [facility] Potassium [Moles/Vol] 3.7 mmol/L Normal 3.5 - 5.3 mmol/L [facility] Protein [Mass/Vol] 6.4 g/dL Normal 6.0 - 7.8 gm/dL [facility] Sodium [Moles/Vol] 136 mmol/L Normal 135 - 145 mmol/L [facility] Urea nitrogen [Mass/Vol] 13 mg/dL Normal 5 - 21 mg/dL [facility] Urea nitrogen/Creatinine [Mass ratio] 19 mg/mg Normal 10 - 20 [facility] Consent for Treatmenton 06-04 Consent for Treatment [id number] [facility] [id number]#1 .00TIFF Normal [facility] HEMATOLOGYOrdered By: SYSTEM SYSTEM on 06-29-2023 Basophils/100 WBC (Bld) 0.3 % Normal 0.0 - 2.0 % [facility] Basophils/Leukocytes Auto (Bld) [Pure # fraction] 0.0 E9/L Normal 0.0 - 0.2 E9/L [facility] Eosinophils (Bld) [#/Vol] 0.1 E9/L Normal 0. 0 - 0.5 E9/L [facility] Eosinophils/100 WBC (Bld) 1.2 % Normal 0.0 - 8.0 % [facility] Erythrocyte distribution width (RBC) [Ratio] 13.1 % Normal 10.9 - 14.2 % [facility] Hematocrit (Bld) [Volume fraction] 39.6 % Normal 34.0 - 46.0 % [facility] Hemoglobin (Bld) [Mass/Vol] 13.2 g/dL Normal 12.0 - 16.0 gm/dL [facility] Lymphocytes (Bld) [#/Vol] 2.0 E9/L Normal 1. 0 - 4.0 E9/L [facility] Lymphocytes/100 WBC (Bld) 22.0 % Normal 14 .0 - 50.0 % [facility] MCH (RBC) [Entitic mass] 30.7 pg Normal 27. 0 - 34.0 pg [facility] MCHC (RBC) [Mass/Vol] 33.3 g/dL Normal 31.4 - 36.0 gm/dL [facility] MCV (RBC) [Entitic vol] 91.9 fL Normal 80.0 - 100.0 fL [facility] Monocytes (Bld) [#/Vol] 0.4 E9/L Normal 0.2 - 1.0 E9/L [facility] Monocytes/100 WBC (Bld) 4.6 % Normal 4.0 - 14.0 % [facility] Neutrophils (Bld) [#/Vol] 6.5 E9/L Normal 2. 0 - 7.5 E9/L [facility] Neutrophils/100 WBC (Bld) 71.9 % Normal 36 .0 - 75.0 % [facility] Platelet 216.0 E9/L Normal 150.0 - 500.0 E9/L [facility] Platelet mean volume (Bld) [Entitic vol] 8.2 fL Normal 6.4 - 10.8 fL [facility] RBC (Bld) [#/Vol] 4.3 E12/L Normal 4.3 - 5.9 E12/L [facility] WBC corrected for nucl RBC Auto (Bld) [#/Vol] 9.0 E9/L Normal 4.0 - 11.0 E9/L [facility] Hep Func Panelon 06-29-2023 Albumin [Mass/Vol] 4.3 g/dL Normal 3.3-5.0 [facility] Comment on above: Performed By: #### 2 421796, 08924223, 1797063, 4914566, 40547904, 3874979 ####[facility] [address] [place] [address] Albumin/Globulin (S) [Mass conc ratio] 2.0 Normal 1.1-2.2 [facility] Comment on above: Performed By: #### 2 367834, 00063685, 4028777, 2247546, 05997376, 3586800 ####[facility] [address] [place] [address] ALP [Catalytic activity/Vol] 70 Int._Unit/L Normal 21-98 [facility] Comment on above: Performed By: #### 2 315870, 34688510, 8147492, 5822573, 20678382, 5103757 ####[address] [address] ALT No additional P-5'-P [Catalytic activity/Vol] 29 Int._Unit/L Normal 6-46 [facility] Comment on above: Performed By: #### 2 033619, 06812299, 5430989, 9920136, 72947916, 8766693 ####[facility] [address] [place] [address] AST [Catalytic activity/Vol] 17 Int._Unit/L Normal 5-43 [facility] Comment on above: Performed By: #### 2 307620, 57186701, 4688130, 2771953, 97903807, 5407878 ####[facility] [address] [place] [address] Bilirubin [Mass/Vol] 0.9 mg/dL Normal 0.0-1.1 [facility] Comment on above: Performed By: #### 2 910544, 56165648, 1377406, 3864404, 59449737, 9390277 ####[address] [address] Bilirubin.direct [Mass/Vol] 0.1 mg/dL Normal 0.0-0.4 [facility] Comment on above: Performed By: #### 2 185860, 90606011, 1598826, 9058994, 55884282, 5740441 ####[facility] [address] [place] [address] Bilirubin.indirect [Mass or moles/Vol] 0.8 mg/dL Normal 0.1-0.9 [facility] Comment on above: Performed By: #### 2 863529, 11006385, 1139286, 6827850, 89424599, 8400708 ####[address] [place] [address] Globulin (S) [Mass/Vol] 2.1 g/dL Normal 1.4-4.0 [facility] Comment on above: Performed By: #### 2 348015, 11369172, 0440105, 5490945, 62928799, 2934689 ####[facility] [address] [place] [address] Protein [Mass/Vol] 6.4 g/dL Normal 6.0-7.8 [facility] Comment on above: Performed By: #### 2 788267, 06975225, 6831277, 1228252, 04920551, 8147404 ####[address] [address] Lipase Levelon 06-29-2023 Lipase [Catalytic activity/Vol] U/L Low 13-58 [facility] Comment on above: Performed By: #### 2 737684, 41686521, 6179658, 6467687, 53617401, 6608866 ####[address] [address] SEROLOGYOrdered By: Linh Wright on 06-29-2023 Beta HCG ( test) Ql Negative (06/29/23 9:29 PM) Normal [facility] UA with Cult Rflxon 06-29-19 24 Color (U) Light-Yellow Normal Yellow [facility] Comment on above: Result Comment: Micr oscopic readings are only performed on those samples that meet specific criteria set forth by [facility]. Performed By: #### 4 [id number] ####[facility] [address] [place] [address] Glucose (U) [Mass/Vol] Negative Normal Negative [facility] Comment on above: Performed By: #### 4 [id number] ####[facility] [address] [place] [address] Ketones Ql (U) Negative Normal Negative [facility] Comment on above: Performed By: #### 4 [id number] ####[facility] [address] [place] [address] UA Blood Negative Normal Negative [facility] Comment on above: Performed By: #### 4 [id number] ####[facility] [address] [place] [address] UA Bacteria Trace Normal Trace [facility] Comment on above: Performed By: #### 4 [id number] ####[facility] [address] [place] [address] UA Clarity Turbid Abnormal Clear [facility] Comment on above: Performed By: #### 4 [id number] ####[facility] [address] [facility] [place] [address] UA Leuk Est Negative Normal Negative [facility] Comment on above: Performed By: #### 4 [id number] ####[facility] [address] [address] UA Mucous Trace Normal Negative [facility] Comment on above: Performed By: #### 4 [id number] ####[facility] [address] [place] [address] UA Nitrite Negative Normal Negative [facility] Comment on above: Performed By: #### 4 [id number] ####[facility] [address] [place] [address] UA pH 5.5 Invalid Interpretation Code 5.0-9.0 [facility] Comment on above: Performed By: #### 4 [id number] ####[facility] [address] [place] [address] UA Protein Negative Normal Negative [facility] Comment on above: Performed By: #### 4 [id number] ####[facility] [address] [place] [address] UA RBC 0-3 Normal 0-3 [facility] Comment on above: Performed By: #### 4 [id number] ####[facility] [address] [place] [address] UA Spec Grav 1.017 Invalid Interpretation Code 1.005-1.030 [facility] Comment on above: Performed By: #### 4 [id number] ####[address] [address] UA Squam Epithelial >10 Abnormal 0-2 [facility] Comment on above: Performed By: #### 4 [id number] ####[facility] [address] [place] [address] UA Urobilinogen Negative Normal Negative [facility] Comment on above: Performed By: #### 4 [id number] ####[address] [address] Urobilinogen (U) [Mass/Vol] Negative Normal Negative [facility] Comment on above: Performed By: #### 4 [id number] ####[address] [address] UA Spec Desc Clean Catch Normal [facility] Comment on above: Performed By: #### 4 [id number] ####[facility] [address] [place] [address] URINALYSISOrdered By: SYSTEM SYSTEM on 06-29-2023 Color (U) Light-Yellow 1 (06/29/23 9:34 PM) Normal Yellow [facility] UA Auto SS Comment on above: Interpretive Data: M icroscopic readings are only performed on those samples that meet specific criteria set forth by [facility]. Glucose (U) [Mass/Vol] Negative Normal Negat ivemg/ dL [facility] UA Auto SS Ketones Ql (U) Negative Normal Negativemg/ dL [facility] UA Auto SS UA Bacteria Trace graded/HPF Normal Tracegraded /HPF [facility] UA Auto SS UA Blood Negative Normal Negativemg/ dL [facility] UA Auto SS UA Clarity Turbid *ABN* (06/29/23 9:34 PM) Invalid Interpretation Code Clear [facility] UA Auto SS UA Leuk Est Negative Normal NegativeLeu /uL [facility] UA Auto SS UA Mucous Trace graded/LPF Normal Negativegra ded/LPF [facility] UA Auto SS UA Nitrite Negative Normal Negativemg/ dL [facility] UA Auto SS UA pH 5.5 *NA* (06/29/23 9:34 PM) Invalid Interpretation Code 5.0 - 9.0 [facility] UA Auto SS UA Protein Negative Normal Negativemg/ dL [facility] UA Auto SS UA RBC 0-3 graded/HPF Normal 0-3graded/H PF [facility] UA Auto SS UA Spec Grav 1.017 *NA* (06/29/23 9:34 PM) Invalid Interpretation Code 1.005 - 1.030 [facility] UA Auto SS UA Squam Epithelial >10 graded/HPF Invalid Interpretation Code 0-2graded/H PF [facility] UA Auto SS UA Urobilinogen Negative Normal Negativemg/ dL [facility] UA Auto SS Urobilinogen (U) [Mass/Vol] Negative Normal Negativemg/ dL [facility] UA Auto SS URINALYSISOrdered By: Mary Ann Whitehead on 06-29-2023 UA Spec Desc Clean Catch (06/29/23 9:34 PM) Normal [facility] UA Auto SS Work Phone: eGFRon 06-29-2023 eGFR 123 mL/min/1.73 m2 Normal >=59 [facility] Comment on above: Order Comment: Order added by Discern Expert. Performed By: #### 2 [id number], [id number], 7842873, 9340544, 54610098, 4172131 ####[facility] [address] [place] [address] Auto Diffon 02-16-2023 Basophils/100 WBC (Bld) 0.6 % Normal 0.0-2.0 [facility] Comment on above: Order Comment: Order Added by Discern Expert. Performed By: #### 1 0287562, 2938264, 5649314, 0644209, 2488653, 57396889, 6368120 ####[place] [address] [place] [address] Basophils/Leukocytes Auto (Bld) [Pure # fraction] 0.0 E9/L Normal 0.0-0.2 [facility] Comment on above: Order Comment: Order Added by Discern Expert. Performed By: #### 1 5268386, 0876855, 8628134, 1615148, 6323950, 49174477, 8815252 ####[address] [place] [address] Eosinophils/100 WBC (Bld) 0.8 % Normal 0.0-8.0 [facility] Comment on above: Order Comment: Order Added by Chaitanya Expert. Performed By: #### 1 5303900, 9331018, 6272362, 0600284, 7955597, 71908484, 9901397 ####[address] [address] Eosinophils/Leukocytes Auto (Bld) [Pure # fraction] 0.1 E9/L Normal 0.0-0.5 [facility] Comment on above: Order Comment: Order Added by Chaitanya Expert. Performed By: #### 1 2804435, 8220508, 6925003, 4554978, 0844891, 52044122, 0253496 ####[address] [address] Lymphocytes/100 WBC (Bld) 27.0 % Normal 14.0-50.0 [facility] Comment on above: Order Comment: Order Added by Chaitanya Expert. Performed By: #### 1 0907264, 0125197, 4088303, 0837459, 4446966, 40809114, 9957186 ####[address] [place] [address] Lymphocytes/Leukocytes Auto (Bld) [Pure # fraction] 1.8 E9/L Normal 1.0-4.0 [facility] Comment on above: Order Comment: Order Added by Discern Expert. Performed By: #### 1 5928787, 3967280, 4704373, 7909674, 5630161, 42424764, 8224680 ####[facility] [address] [place] [address] Monocytes/100 WBC (Bld) 7.8 % Normal 4.0-14.0 [facility] Comment on above: Order Comment: Order Added by Discern Expert. Performed By: #### 1 3333444, 6204575, 4465972, 5726296, 8512986, 36340235, 2271192 ####[facility] [address] [place] [address] Monocytes/Leukocytes Auto (Bld) [Pure # fraction] 0.5 E9/L Normal 0.2-1.0 [facility] Comment on above: Order Comment: Order Added by Chaitanya Expert. Performed By: #### 1 5541576, 4613970, 4085324, 8110528, 1080990, 19552834, 4093982 ####[facility] [address] [place] [address] Neutrophils/100 WBC (Bld) 63.8 % Normal 36.0-75.0 [facility] Comment on above: Order Comment: Order Added by Chaitanya Expert. Performed By: #### 1 3796214, 6933625, 3297404, 0953537, 4989539, 20874252, 1858950 ####[facility] [address] [place] [address] Neutrophils/Leukocytes Auto (Bld) [Pure # fraction] 4.3 E9/L Normal 2.0-7.5 [facility] Comment on above: Order Comment: Order Added by Chaitanya Expert. Performed By: #### 1 2287363, 5986013, 4568473, 6322558, 7997518, 84433137, 5520213 ####[facility] [address] [place] [address] BMPon 02-16-2023 Creatinine [Mass/Vol] 0.6 mg/dL Normal 0.5-1.3 [facility] Comment on above: Performed By: #### 1 2127651, 2320345, 4561398, 5918599, 4510097, 09625680, 3308162 ####[facility] [address] [place] [address] Urea nitrogen [Mass/Vol] 19 mg/dL Normal 5-21 [facility] Comment on above: Performed By: #### 1 6900806, 8002105, 8962874, 1748519, 6742003, 18548902, 5713545 ####[facility] [address] [place] [address] Urea nitrogen/Creatinine [Mass ratio] 32 No Units High 10-20 [facility] Comment on above: Performed By: #### 1 5597536, 9582600, 2584097, 1594731, 9037307, 25832352, 9643127 ####[facility] [address] [place] [address] Anion gap [Moles/Vol] 8 mmol/L Normal 6-16 [facility] Comment on above: Performed By: #### 1 2144866, 9478615, 8550864, 2040570, 5801312, 92787148, 3306914 ####[facility] [address] [place] [address] Calcium [Mass/Vol] 8.5 mg/dL Low 8.9-11.1 [facility] Comment on above: Performed By: #### 1 0241735, 2812033, 4525147, 7869106, 0200841, 37841893, 6901294 ####[facility] [address] [place] [address] Chloride [Moles/Vol] 107 mmol/L Normal 101-111 [facility] Comment on above: Performed By: #### 1 9647874, 0097767, 7695870, 2220373, 8586127, 30528763, 7113865 ####[facility] [address] [place] [address] CO2 [Moles/Vol] 25 mmol/L Normal 21-31 [facility] Comment on above: Performed By: #### 1 3297397, 5706622, 7822326, 3478670, 3906082, 04894510, 5870575 ####[facility] [address] [place] [address] Glucose [Mass/Vol] 93 mg/dL Normal 55-199 [facility] Comment on above: Result Comment: If t his glucose result represents a fasting glucose, interpretation should refer to the following reference range: 55-99 mg/dL Performed By: #### 1 4513745, 2940029, 8843469, 1858218, 5603637, 71029806, 7911400 ####[facility] [address] [place] [address] Potassium [Moles/Vol] 3.4 mmol/L Low 3.5-5.3 [facility] Comment on above: Performed By: #### 1 4413466, 2117996, 2238484, 6890841, 3092452, 91196238, 5697874 ####[facility] [address] [place] [address] Sodium [Moles/Vol] 137 mmol/L Normal 135-145 [facility] Comment on above: Performed By: #### 1 5067683, 6994696, 7392939, 3331963, 5496641, 24783274, 1429039 ####[facility] [address] [place] [address] CBC w/ Auto Diffon 3 Erythrocyte distribution width (RBC) [Ratio] 13.0 % Normal 10.9-14.2 [facility] Comment on above: Performed By: #### 1 8800347, 8760517, 1874288, 6409579, 0913875, 01082091, 9895564 ####[facility] [address] [place] [address] Hematocrit (Bld) [Volume fraction] 41.4 % Normal 34.0-46.0 [facility] Comment on above: Performed By: #### 1 2506625, 4466377, 7260053, 0471513, 3459694, 36751044, 8255743 ####[address] [place] [address] Hemoglobin (Bld) [Mass/Vol] 13.9 g/dL Normal 12.0-16.0 [facility] Comment on above: Performed By: #### 1 6484894, 4243169, 7487761, 7423592, 3017566, 16083665, 6261791 ####[address] [address] MCH (RBC) [Entitic mass] 31.0 pg Normal 27.0-34.0 [facility] Comment on above: Performed By: #### 1 5621505, 2019964, 5093521, 4179451, 8933630, 85224214, 3523419 ####[place] [address] MCHC (RBC) [Mass/Vol] 33.6 g/dL Normal 31.4-36.0 [facility] Comment on above: Performed By: #### 1 0284827, 8907024, 7085409, 1636453, 8064488, 38958495, 2745486 ####[address] [address] MCV (RBC) [Entitic vol] 92.3 fL Normal 80.0-100.0 [facility] Comment on above: Performed By: #### 1 3422922, 8438671, 2535032, 9397691, 5497054, 76191379, 2989784 ####[address] [place] [address] Platelet mean volume (Bld) [Entitic vol] 9.7 fL Normal 6.4-10.8 [facility] Comment on above: Performed By: #### 1 8108792, 8781377, 8453539, 1822742, 6463419, 57300159, 9686803 ####[address] [address] Platelets (Bld) [#/Vol] 254.0 E9/L Normal 150.0-500.0 [facility] Comment on above: Performed By: #### 1 4863466, 9143430, 9474532, 2966151, 5692558, 61073115, 2188658 ####[facility] [address] [place] [address] RBC (Bld) [#/Vol] 4.5 E12/L Normal 4.3-5.9 [facility] Comment on above: Performed By: #### 1 6025495, 7887155, 3752684, 0186682, 4968975, 80114665, 7584846 ####[facility] [address] [place] [address] WBC corrected for nucl RBC Auto (Bld) [#/Vol] 6.7 E9/L Normal 4.0-11.0 [facility] Comment on above: Performed By: #### 1 5201729, 7268001, 9969816, 9109892, 1909242, 30962625, 1533748 ####[facility] [address] [place] [address] CHEMISTRYOrdered By: SYSTEM SYSTEM on 02-16-2023 Albumin [Mass/Vol] 3.9 g/dL Normal 3.3 - 5.0 gm/dL [facility] Remisol Albumin/Globulin [Mass ratio] 1.4 {ratio} Normal 1.1 - 2.2 [facility] Remisol ALP [Catalytic activity/Vol] 86 [iU]/d Normal 21 - 98 Int._Unit/L [facility] Remisol ALT No additional P-5'-P [Catalytic activity/Vol] 18 [iU]/d Normal 6 - 46 Int._Unit/L [facility] Anion gap [Moles/Vol] 8 mmol/L Normal 6 - 16 mEq/L [facility] AST [Catalytic activity/Vol] 14 [iU]/d Normal 5 - 43 Int._Unit/L [facility] Bilirubin [Mass/Vol] 1.0 mg/dL Normal 0.0 - 1 .1 mg/dL [facility] Bilirubin.direct [Mass/Vol] 0.2 mg/dL Normal 0.1 - 0.4 mg/dL [facility] Bilirubin.indirect [Mass or moles/Vol] 0.8 mg/dL Normal 0.1 - 0.9 mg/dL [facility] Calcium [Mass/Vol] 8.5 mg/dL Low 8.9 - 11. 1 mg/dL [facility] Chloride [Moles/Vol] 107 mmol/L Normal 101 - 1 11 mmol/L [facility] CO2 [Moles/Vol] 25 mmol/L Normal 21 - 31 mmol/L [facility] Creatinine [Mass/Vol] 0.6 mg/dL Normal 0.5 - 1.3 mg/dL FT Remisol GFR/1.73 sq M.predicted among non-blacks MDRD (S/P/Bld) [Vol rate/Area] 128 mL/min/1.73 m2 Normal >=59mL/min/ 1.73 m2 [facility] Chem S Comment on above: Interpretive Data: C hronic kidney disease could be indicated at eGFR's of less than 60 mL/min/1.73m2. Kidney failure is indicated at less than 15 mL/min/1.73m2. Globulin (S) [Mass/Vol] 2.8 g/dL Normal 1.4 - 4.0 gm/dL [facility] Glucose [Mass/Vol] 93 mg/dL Normal 55 - 199 mg/dL [facility] Comment on above: Interpretive Data: I f this glucose result represents a fasting glucose, interpretation should refer to the following reference range: 55-99 mg/dL Lipase [Catalytic activity/Vol] 22 U/L Normal 13 - 58 unit/L [facility] Potassium [Moles/Vol] 3.4 mmol/L Low 3.5 - 5.3 mmol/L [facility] Protein [Mass/Vol] 6.7 g/dL Normal 6.0 - 7.8 gm/dL [facility] Sodium [Moles/Vol] 137 mmol/L Normal 135 - 145 mmol/L [facility]isol Troponin I.cardiac [Mass/Vol] pg/mL Low 10.10 - 27.10 pg/mL [facility] Comment on above: Interpretive Data: T he 95% CI (Confidence Interval) PPV (Positive Predictive Value) for myocardial infarction in females is 38 pg/mL, in males 51 pg/mL. The results should be used in conjunction with clinical conditions of myocardial infarction. (Access High Sensitivity Troponin I Instructions For Use, Lianna Alejandra, November 2017) Urea nitrogen [Mass/Vol] 19 mg/dL Normal 5 - 21 mg/dL [facility] Remisol Urea nitrogen/Creatinine [Mass ratio] 32 mg/mg High 10 - 20 [facility] Remisol Consent for Treatmenton 02-03 Consent for Treatment [id number] .[id number] Normal [facility] Discharge Instructionson Discharge Instructions [id number] Normal [facility] ED Clinical Summaryon 2022 ED Clinical Summary [place] [id number] ED Clinical Summary Person Information Name: SOCORRO JOSEPH Alena/[facility] Age: 22 Years : 2000 Sex: Female Language: Wolof PCP: Lilliam Gonzalez MD Marital Status: Single Visit Id: Visit Reason: Syncope/Near syncope; Diarrhea; Vomiting; Nausea; VOMITING, SYNCOPE Speciality: Acuity: 3 Enc Type: Emergency Med Service: Emergency Arrival: 02/16/2023 05:05:22 Discharge: 02/16/2023 07:09:17 LOS: 000 02:04 Checkin: 02/16/2023 05:05:22 Checkout: 02/16/2023 07:09:17 Dispo Type: Home (Routine DC) EVENTS: Event Name Event Status Request Date/Time Start Date/Time Complete Date/Time Arrive Complete 02/16/2023 05:05:22 02/16/2023 05:05:22 02/16/2023 05:05:22 Document Home Meds Request 02/16/2023 05:05:22 Triage Complete 02/16/2023 05:05:22 02/16/2023 05:18:18 02/16/2023 05:18:18 Dr Exam Complete 02/16/2023 05:06:31 02/16/2023 05:06:31 02/16/2023 05:06:31 Registration Complete 02/16/2023 05:06:31 02/16/2023 05:08:06 02/16/2023 05:08:06 Reg Complete Request 02/16/2023 05:08:06 Reg Bed Request Complete 02/16/2023 05:08:06 02/16/2023 05:08:06 02/16/2023 05:08:06 EKG Complete 02/16/2023 05:15:00 02/16/2023 05:32:30 Meds Admin Complete 02/16/2023 05:15:00 02/16/2023 05:44:31 Pending Labs Complete 02/16/2023 05:15:00 02/16/2023 06:46:06 Lab Complete 02/16/2023 05:15:00 02/16/2023 06:41:11 Patient Care Complete 02/16/2023 05:15:00 02/16/2023 05:45:53 Bed Assign Complete 02/16/2023 05:20:22 02/16/2023 05:20:22 02/16/2023 05:20:22 RN Exam Complete 02/16/2023 05:20:22 02/16/2023 05:24:21 02/16/2023 05:24:21 Fall Risk Request 02/16/2023 05:24:22 Pending Labs Complete 02/16/2023 05:46:06 02/16/2023 05:46:06 02/16/2023 06:41:12 Lab Complete 02/16/2023 05:46:06 02/16/2023 05:46:06 02/16/2023 06:41:12 Pending Labs Complete 02/16/2023 05:58:45 02/16/2023 05:58:45 02/16/2023 05:58:51 Lab Complete 02/16/2023 05:58:45 02/16/2023 05:58:45 02/16/2023 05:58:51 Pending Labs Complete 02/16/2023 06:21:19 02/16/2023 06:21:19 02/16/2023 06:21:19 Pending Labs Complete 02/16/2023 06:21:32 02/16/2023 06:21:32 02/16/2023 06:21:32 Pending Labs Complete 02/16/2023 06:21:49 02/16/2023 06:21:49 02/16/2023 06:21:49 Meds Admin Complete 02/16/2023 06:40:27 02/16/2023 07:06:58 Discharge Complete 02/16/2023 06:54:10 02/16/2023 07:09:21 02/16/2023 07:09:21 Transfer Complete 02/16/2023 07:09:21 02/16/2023 07:09:21 02/16/2023 07:09:21 ADDRESS: [address] [place] [id number] PHYS DOC NOTES: MEDICAL INFORMATION: Prescriptions Given: New Medications [facility] 1988, [address] [facility] [place], [place] [id number], [phone] ondansetron (Zofran ODT 4 mg Tab-Dis) 1 Tablets By Mouth every 8 hours as needed Nausea/Vomiting. Refills: 0. PATIENT EDUCATION INFORMATION: Instructions: Nausea and Vomiting, Adult Follow up: With: Address: When: Lilliam Gonzalez [address] [place] [address] Business (1) In 3 days DIAGNOSIS: Diarrhea; N&V (nausea and vomiting); Syncope Normal [facility] ED Note-Physicianon 02-17-20 ED Note-Physician Basic Information Time Seen: Jacinto Mendiola DO 02/16/2023 05:06 History of Present Illness HPI: Patient is a 22-year-old female with past medical history of depression who presents the ED for nausea, vomiting, and syncope. Patient states that yesterday she developed intense nausea and vomiting as well as diarrhea. She has been unable to hold down any foods or liquids since that time. She has had chills but no fever that she is aware of. She denies any cough or shortness of breath or respiratory symptoms. She states that this morning when she got up and for stood up she got extremely lightheaded and passed out. ROS: Pertinent review of systems conducted and is negative except as noted above. Physical exam: General: nontoxic appearing and in no distress HEENT: Mucous membranes moist Neuro: awake and alert Neck: supple, trachea midline Card: Heart regular rate and rhythm no murmur Resp: Lungs clear to auscultation no wheeze or rhonchi Abd: Soft and nondistended. Mild epigastric tenderness without rebound or guarding. Ext: No gross deformity or edema Medical Decision Making MEDICAL DECISION MAKING Number and Complexity of Problems Differential Diagnosis: [] [facility] Data External documents reviewed: N/A My EKG interpretation: Noted in chart if applicable My CT interpretation: N/A My X-ray interpretation: Noted in chart if applicable My Ultrasound interpretation: N/A Decision rules/scores evaluated: N/A Discussed with: N/A Treatment and Disposition ED Course: Patient is well-appearing and in no distress. She is afebrile here in the ED and her vital signs are overall reassuring. She is neurologically intact to my exam. She has had symptoms of gastroenteritis for 24 hours and then when she stood up concerning for orthostatic hypotension. We will give her IV fluids and Zofran and obtain blood work including metabolic panel and troponin. Work-up reveals very mild hypokalemia of 3.4 for which we will give her potassium orally. Patient is feeling better after the IV fluids and Zofran. We discussed the plan of discharge with a prescription for Zofran as well as a work note. We discussed the need for rest and oral hydration as I believe she has a viral gastroenteritis. Patient will follow-up with her primary care physician in 2 to 3 days for follow-up. Shared decision making: As above Code status: N/A Assessment/Plan Diarrhea (R19.7: Diarrhea, unspecified) N&V (nausea and vomiting) (R11.2: Nausea with vomiting, unspecified) Syncope (R55: Syncope and collapse) Orders: ondansetron, 4 mg = 2 mL, Injection, IV Push, Once, Stop date 02/16/23 5:14:00 EST, STAT, Start date 02/16/23 5:14:00 EST, 02/16/23 5:14:00 EST potassium bicarbonate, 25 mEq = 1 tab(s), Tab-Eff, Oral, Once, Stop date 02/16/23 6:40:00 EST, STAT, Start date 02/16/23 6:40:00 EST, 02/16/23 6:40:00 EST Sodium Chloride 0.9% intravenous solution, 1,000 mL, Soln-IV, IV, Once, Stop date 02/16/23 5:14:00 EST, STAT, Start date 02/16/23 5:14:00 EST, Infuse over 61, minute(s) Automated Diff Basic Metabolic Panel CBC w/ Auto Diff ECG 12 Lead Adult eGFR Extra Blue Tube Extra Lav Tube Extra SST Tube Hepatic Function Panel Lipase Level Saline Lock Insert Troponin 0 Hr. Medications Administered Given NS 1000 ml Bolus, 1000 mL, IV ondansetron 4 mg/2 mL Inj, 4 mg, IV Push Disposition Plan Discharge Prescription List Prescriptions Zofran ODT 4 mg Tab-Dis, 4 mg= 1 tab(s), Oral, q8hr, PRN Follow-up With When Contact Information Lilliam Gonzalez In 3 days [address] [place], [place] [address] (1) Additional Instructions: Patient Education Nausea and Vomiting, Adult Problem List/Past Medical History Ongoing Depression Smoker Historical Smoker Supervision of normal in second trimester Procedure/Surgical History Insertion of IUD (07/18/2019). Medications Inpatient NS 1000 ml Bolus, 1000 mL, IV, Once ondansetron 4 mg/2 mL Inj, 4 mg= 2 mL, IV Push, Once Home No active home medications Allergies No Known Allergies Social History Alcohol - Medium Risk, 06/16/2020 Liquor, 1-2 times per month, 06/16/2020 DENIES, Household alcohol concerns: No., 12/25/2019 Employment/School Employed, Highest education level: High school. Operates hazardous equipment: No., 11/01/2017 Home/Environment Lives with Father, Mother. Living situation: Home/Independent. Alcohol abuse in household: No. Substance abuse in household: No. Smoker in household: No. Injuries/Abuse/Neglec t in household: No. Feels unsafe at home: No. Safe place to go: Yes. Agency(s)/Others notified: No. Family/Friends available for support: Yes. Concern for family members at home: No. Major illness in household: No. Financial concerns: No., 07/18/2019 Nutrition/Health Regular, 07/18/2019 Sexual Straight or heterosexual Sexual orientation:. Sexually active: Yes., 11/01/2017 Substance Abuse - Isaac (more content not included)... Normal [facility] Comment on above: Result Comment: Elec tronically Signed By: Jacinto Mendiola DO\.br\Date and Time Signed: 02/16/23 06:54 EST ED Patient Education Noteon 02-16-2023 ED Patient Education Note Gastroenterolo gy Nausea and Vomiting, Adult Nausea is the feeling that you have an upset stomach or that you are about to vomit. As nausea gets worse, it can lead to vomiting. Vomiting is when stomach contents forcefully come out of your mouth as a result of nausea. Vomiting can make you feel weak and cause you to become dehydrated. Dehydration can make you feel tired and thirsty, cause you to have a dry mouth, and decrease how often you urinate. Older adults and people with other diseases or a weak disease-fighting system (immune system) are at higher risk for dehydration. It is important to treat your nausea and vomiting as told by your health care provider. Follow these instructions at home: Watch your symptoms for any changes. Tell your health care provider about them. Eating and drinking ? Take an oral rehydration solution (ORS). This is a drink that is sold at pharmacies and retail stores. ? Drink clear fluids slowly and in small amounts as you are able. Clear fluids include water, ice chips, low-calorie sports drinks, and fruit juice that has water added (diluted fruit juice). ? Eat bland, ucyz-hh-zgcmhc foods in small amounts as you are able. These foods include bananas, applesauce, rice, lean meats, toast, and crackers. ? Avoid fluids that contain a lot of sugar or caffeine, such as energy drinks, sports drinks, and soda. ? Avoid alcohol. ? Avoid spicy or fatty foods. General instructions ? Take uhfu-dqi-shukyjx and prescription medicines only as told by your health care provider. ? Drink enough fluid to keep your urine pale yellow. ? Wash your hands often using soap and water for at least 20 seconds. If soap and water are not available, use hand donor services manager. ? Make sure that everyone in your household washes their hands well and often. ? Rest at home while you recover. ? Watch your condition for any changes. ? Take slow and deep breaths when you feel nauseous. ? Keep all follow-up visits. This is important. Contact a health care provider if: ? Your symptoms get worse. ? You have new symptoms. ? You have a fever. ? You cannot drink fluids without vomiting. ? Your nausea does not go away after 2 days. ? You feel light-headed or dizzy. ? You have a headache. ? You have muscle cramps. ? You have a rash. ? You have pain while urinating. Get help right away if: ? You have pain in your chest, neck, arm, or jaw. ? You feel extremely weak or you faint. ? You have persistent vomiting. ? You have vomit that is bright red or looks like black coffee grounds. ? You have bloody or black stools (feces) or stools that look like tar. ? You have a severe headache, a stiff neck, or both. ? You have severe pain, cramping, or bloating in your abdomen. ? You have difficulty breathing, or you are breathing very quickly. ? Your heart is beating very quickly. ? Your skin feels cold and clammy. ? You feel confused. ? You have signs of dehydration, such as: ? Dark urine, very little urine, or no urine. ? Cracked lips. ? Dry mouth. ? Sunken eyes. ? Sleepiness. ? Weakness. These symptoms may be an emergency. Get help right away. Call 911. ? Do not wait to see if the symptoms will go away. ? Do not drive yourself to the hospital. Summary ? Nausea is the feeling that you have an upset stomach or that you are about to vomit. As nausea gets worse, it can lead to vomiting. Vomiting can make you feel weak and cause you to become dehydrated. ? Follow instructions from your health care provider about eating and drinking to prevent dehydration. ? Take llgb-mfu-tyrmfvm and prescription medicines only as told by your health care provider. ? Contact your health care provider if your symptoms get worse, or you have new symptoms. ? Keep all follow-up visits. This is important. This information is not intended to replace advice given to you by your health care provider. Make sure you discuss any questions you have with your health care provider. Document Revised: 09/26/2021 Document Reviewed: 09/26/2021 Elsevier Patient Education ? 2022 [employer] Normal [facility] ED Patient Summaryon 023 ED Patient Summary [address] [address] Patient Discharge Instructions Person Information Name: SOCORRO JOSEPH Age: 22 Years Arrival Date: 02/16/2023 05:05:22 Discharge Diagnosis: Diarrhea; N&V (nausea and vomiting); Syncope Primary Care Physician: Lilliam Gonzalez MD Provider Information Primary Provider: Jacinto Mendiola DO Advanced Sole Buffer:None The exam and treatment you received in the Emergency Department were for an urgent problem and are not intended as complete care. It is important that you follow up with a doctor, nurse practitioner, or physician?s programs assistant for ongoing care. If your symptoms become worse or you do not improve as expected and you are unable to reach your usual health care provider, you should return to the Emergency Department. We are available 24 hours a day. SOCORRO JOSEPH has been given the following list of patient education materials, prescriptions and follow-up instructions: Follow-up Instructions: With: Address: When: [place] [address] Business (1) In 3 days In the event that this physician does not participate in your insurance network, please consult with your insurance company to find a nearby participating provider. Patient Education Materials: Nausea and Vomiting, Adult A MESSAGE TO ALL PATIENTS REGARDING OPIOIDS PRESCRIPTION OPIOIDS: WHAT YOU NEED TO KNOW Prescription opioids can be used to help relieve nomgcced-dj-rxweup pain and are often prescribed following a surgery or injury, or for certain health conditions. These medications can be an important part of the treatment but also come with serious risks. It is important to work with your healthcare provider to make sure you are getting the safest, most effective care. WHAT ARE THE RISKS AND SIDE EFFECTS OF OPIOID USE? Prescription opioids carry serious risks of addiction and overdose, especially with prolonged use. An opioid overdose, often marked by slowed breathing, can cause sudden . The use of prescription opioids can have a number of side effects as well, even when taken as directed: ? Tolerance?meaning you might need to take more of the medication for the same pain relief ? Physical dependence?meaning you have symptoms of withdrawal when a medication is stopped ? Increased sensitivity to pain ? Constipation ? Nausea, vomiting, and dry mouth ? Sleepiness and dizziness ? Confusion ? Depression ? Low levels of testosterone that can result in lower sex drive, energy, and strength ? Itching and sweating RISKS ARE GREATER WITH: ? History of drug misuse, substance use disorder, or overdose ? Mental health conditions (such as depression or anxiety) ? Sleep apnea ? Older age (65 years and older) ? Avoid alcohol while taking prescription opioids. Also, unless specifically advised by your health care provider, medications to avoid include: ? Benzodiazepines (such as Xanax or Valium) ? Muscle relaxants (such as Soma or Flexeril) ? Hypnotics (such as Ambien or Lunesta) ? Other prescription opioids KNOW YOUR OPTIONS Talk to your health care provider about ways to manage your pain that don?t involve prescription opioids. Some of these options may actually work better and have fewer risks and side effects. Options may include: ? Pain relievers such as acetaminophen, ibuprofen, and naproxen ? Some medication that are also used for depression or seizures ? Physical therapy and exercise ? Cognitive behavioral therapy, a psychological, goal-directed approach, in which patients learn how to modify physical, behavioral, and emotional triggers of pain and stress. IF YOU ARE PRESCRIBED OPIOIDS FOR PAIN: ? Never take opioids in greater amounts or more often than prescribed. ? Follow up with your primary health care provider. o Work together to create a plan on how to manage your pain. o Talk about ways to help manage your pain that don?t involve prescription opioids. o Talk about any and all concerns and side effects. ? Help prevent misuse and abuse o Never sell or share prescription opioids. o Never use another person?s prescription opioids. ? Store prescription opioids in a secure place and out of reach of others (this may include visitors, children, friends, and family). ? Safely dispose of unused prescription opioids: Find your community drug take-back program or your pharmacy mail-back program, or flush them down the toilet, following guidance from the Food and Drug Administration (www.fda.gov/Drugs/Re sourcesForYou). ? Visit www.cdc.gov/drugoverd ose to learn about the risks of opioids abuse and overdose. ? If you believe you may be struggling with addiction, tell your health technical healthcare consultant and ask for guidance or call [facility]?S National Helpline at 6-783-799-ZDNG. g [facility] (more content not included)... Normal [facility] HEMATOLOGYOrdered By: SYSTEM SYSTEM on 02-16-2023 Basophils/100 WBC (Bld) 0.6 % Normal 0.0 - 2.0 % [facility] Basophils/Leukocytes Auto (Bld) [Pure # fraction] 0.0 E9/L Normal 0.0 - 0.2 E9/L [facility] Eosinophils/100 WBC (Bld) 0.8 % Normal 0.0 - 8.0 % [facility] Eosinophils/Leukocytes Auto (Bld) [Pure # fraction] 0.1 E9/L Normal 0.0 - 0.5 E9/L [facility] Lymphocytes/100 WBC (Bld) 27.0 % Normal 14 .0 - 50.0 % [facility] Lymphocytes/Leukocytes Auto (Bld) [Pure # fraction] 1.8 E9/L Normal 1.0 - 4.0 E9/L [facility] Monocytes/100 WBC (Bld) 7.8 % Normal 4.0 - 14.0 % [facility] Monocytes/Leukocytes Auto (Bld) [Pure # fraction] 0.5 E9/L Normal 0.2 - 1.0 E9/L [facility] Neutrophils/100 WBC (Bld) 63.8 % Normal 36 .0 - 75.0 % [facility] Neutrophils/Leukocytes Auto (Bld) [Pure # fraction] 4.3 E9/L Normal 2.0 - 7.5 E9/L [facility] HEMATOLOGYOrdered By: Case Aponte on 02-16-2023 Erythrocyte distribution width (RBC) [Ratio] 13.0 % Normal 10.9 - 14.2 % [facility] Hematocrit (Bld) [Volume fraction] 41.4 % Normal 34.0 - 46.0 % [facility] Hemoglobin (Bld) [Mass/Vol] 13.9 g/dL Normal 12.0 - 16.0 gm/dL [facility] MCH (RBC) [Entitic mass] 31.0 pg Normal 27. 0 - 34.0 pg [facility] MCHC (RBC) [Mass/Vol] 33.6 g/dL Normal 31.4 - 36.0 gm/dL [facility] MCV (RBC) [Entitic vol] 92.3 fL Normal 80.0 - 100.0 fL [facility] Platelet mean volume (Bld) [Entitic vol] 9.7 fL Normal 6.4 - 10.8 fL [facility] Platelets (Bld) [#/Vol] 254.0 E9/L Normal 150. 0 - 500.0 E9/L [facility] RBC (Bld) [#/Vol] 4.5 E12/L Normal 4.3 - 5.9 E12/L [facility] WBC corrected for nucl RBC Auto (Bld) [#/Vol] 6.7 E9/L Normal 4.0 - 11.0 E9/L [facility] Hep Func Panelon 02-16-2023 Albumin [Mass/Vol] 3.9 g/dL Normal 3.3-5.0 [facility] Comment on above: Performed By: #### 1 [id number], [id number], 8688391, 0095944, 6225741, [id number], 1960803 ####[facility] [address] [place] [address] Albumin/Globulin (S) [Mass conc ratio] 1.4 Normal 1.1-2.2 [facility] Comment on above: Performed By: #### 1 [id number], 5086514, 4369724, 4912989, 2935739, 66591064, 9078220 ####[facility] [address] [place] [address] ALP [Catalytic activity/Vol] 86 Int._Unit/L Normal 21-98 [facility] Comment on above: Performed By: #### 1 [id number], 7745598, 8775778, 0501787, 0214530, 78609048, 8180456 ####[facility] [address] [place] [address] ALT No additional P-5'-P [Catalytic activity/Vol] 18 Int._Unit/L Normal 6-46 [facility] Comment on above: Performed By: #### 1 [id number], 7384324, 3238511, 0667943, 1501542, 83164217, 8984549 ####[facility] [address] [place] [address] AST [Catalytic activity/Vol] 14 Int._Unit/L Normal 5-43 [facility] Comment on above: Performed By: #### 1 [id number], 7738305, 8626473, 9041446, 4325096, 16961232, 9768610 ####[facility] [address] [place] [address] Bilirubin [Mass/Vol] 1.0 mg/dL Normal 0.0-1.1 [facility] Comment on above: Performed By: #### 1 0171084, 1421784, 6065217, 9095399, 2848891, 33050551, 5288929 ####[place] [id number] Bilirubin.direct [Mass/Vol] 0.2 mg/dL Normal 0.1-0.4 [facility] Comment on above: Performed By: #### 1 2894222, 1483278, 3163744, 9424182, 2004340, 18470361, 8399858 ####[place] [address] [place] [address] Bilirubin.indirect [Mass or moles/Vol] 0.8 mg/dL Normal 0.1-0.9 [facility] Comment on above: Performed By: #### 1 [id number], 6620872, 9476528, 9869406, 7424146, 24871503, 9564886 ####[place] [address] [place] [address] Globulin (S) [Mass/Vol] 2.8 g/dL Normal 1.4-4.0 [facility] Comment on above: Performed By: #### 1 7403448, 0132360, 6846811, 1339008, 1429118, 68326580, 3186732 ####[facility] [address] [place] [address] Protein [Mass/Vol] 6.7 g/dL Normal 6.0-7.8 [facility] Comment on above: Performed By: #### 1 7974421, 8511160, 2048067, 0492455, 1157025, 86592393, 8597028 ####[facility] [address] [place] [address] Lipase Levelon 02-16-2023 Lipase [Catalytic activity/Vol] 22 U/L Normal 13-58 [facility] Comment on above: Performed By: #### 1 [id number], 6396364, 9440960, 4251322, 4916769, 41057078, 0840573 ####[facility] [address] [place] [address] Prescriptions/Work Noteson 1 04-18-2022 Prescriptions/Work Notes [id number] Normal [facility] Troponin 0 Hr.on 02-16-2023 Troponin I.cardiac [Mass/Vol] ng/mL Low 10.10-27.10 [facility] Comment on above: Result Comment: The 95% CI (Confidence Interval) PPV (Positive Predictive Value) for myocardial infarction in females is 38 pg/mL, in males 51 pg/mL. The results should be used in conjunction with clinical conditions of myocardial infarction. (Access High Sensitivity Troponin I Instructions For Use, Lianna Eckley, November 2017) Performed By: #### 1 [id number], 6748641, 9019395, 6496006, 7413608, 19089108, 4769406 ####[facility] [address] [place] [address] eGFRon 02-16-2023 GFR/1.73 sq M.predicted among non-blacks MDRD (S/P/Bld) [Vol rate/Area] 128 mL/min/1.73 m2 Normal >=59 Fis [facility] Comment on above: Order Comment: Order added by Discern Expert. 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 Kidney failure is indicated at less than 15 mL/min/1.73m2. Performed By: #### 1 [id number], 9724194, 8512643, 3692864, 8850317, 91283731, 5285763 ####[facility] [address] [place] [address] Family Medicine Office/Clini c Noteon 12-18-2022 Family Medicine Office/Clinic Note Chief Complaint EST rt foot injury HPI Staff 22 year old female presents with right foot injury dropped a transmission on her foot and then dropped a steel cast on it a couple days later History of Present Illness I have reviewed and verified the staff HPI to be accurate for this encounter. Portions of this record have been created with voice recognition software. Occasional wrong-word or ?ecqtf-h-udkq? substitutions may have occurred due to the inherent limitations of voice recognition software. 22 yo female presents today with cc of foot pain following injury. Patient states 2 days ago on Wednesday she was helping her who is a ethanol maintenance mechanic change a transmission. She states it kind of rolled on top of her right foot and she states the right great toe took the brunt of it. She states when she can realize that this big thing was sitting on her foot she tried to pull her foot out from underneath of it. She states that shortly after that she then dropped a steel casing onto the right foot. Patient states pain is a 6 out of 10 throbbing in nature while resting. Better 8 out of 10 while walking. She states she was not one of her kids a field trip today but came in for further evaluation to make sure that nothing is broken in the right foot she also complains of ankle pain mostly radiating from the right foot however also has concern for right ankle pain. She denies any numbness tingling or weakness in the right foot or right lower extremity. She does note she has fractured that foot in the past. States last menstrual cycle ended last week denies any chance of history of tubal ligation. Patient has no other concerns at this time. Review of Systems PHQ Score Initial Depression Screen Score: 0 ROS negative unless otherwise stated in HPI. Physical Exam Vitals & Measurements T: 37 ?C(Oral) HR: 61(Peripheral) BP: 108/72 SpO2: 98% HT: 70 in HT: 178 cm WT: 76 kg WT: 167.2 lb BMI: 23.99 General: Well developed, well nourished, in no acute distress Eyes: Conjunctive a within normal limits no injection Ears: Nose: not addressed Mouth: not assessed Neck: not assessed Lungs: Lung sounds are clear bilaterally. No wheezing rhonchi or crackles on exam. Cardio: S1, S2, regular rhythm. No murmurs gallops or rubs. Abdomen: not assessed Extremity: Patient has strong pedal and posterior tibialis pulses bilaterally. No lower extremity edema or pedal edema. No calf tenderness. Negative Homans' sign bilaterally. Patient has pain and discomfort with palpation over the dorsal aspect of the right foot along all metatarsals 1 through 5. Patient has pain with palpation at the right great toe at the MTP and proximal phalanx. Patient has normal flexion extension of all of all joint spaces of the right toes. She is able to dorsiflex and plantarflex the right foot without difficulty she notes slight pain at end range of motion of the right ankle. Is able to rotate the right ankle. No obvious edema no bony tenderness with patient over the right ankle. No acute bruising lacerations abrasions or lesions. No focal deficits. Patient is neurovascularly intact. Neurologic: not assessed Skin: No rashes, ulcerations, or suspicious lesions Mental Status: Alert and oriented x3. Normal mood and affect Assessment/Plan X-ray right foot, right ankle are negative for any fractures or dislocations. I updated patient in regards to negative x-ray results treated for a right foot and ankle contusion continue rest ice and elevation as needed for pain and swelling Tylenol or ibuprofen as needed for pain. Patient agrees and understands plan will continue to follow-up with primary care provider and return if needed 1. Contusion of right foot (S90.31XA: Contusion of right foot, initial encounter) Please follow closely with primary care provider in 3 to 5 days contact their office on Wednesday morning to schedule follow-up appointment you were seen and evaluated regards to right foot and right ankle pain following injury x2 days ago x-ray right foot x-ray right ankle are both negative for any fractures or dislocations. Continue rest ice and elevation as needed for discomfort Tylenol or ibuprofen as needed for pain or swelling. Continue to wear good supportive shoes and rest when you can. You may return if needed for any worsening or concerning symptoms. 2. Contusion of right ankle (S90.01XA: Contusion of right ankle, initial encounter) see above Right ankle pain (M25.571: Pain in right ankle and joints of right foot) Ordered: XR Ankle 3+ Views Right Right foot pain (M79.671: Pain in right foot) Ordered: XR Ankle 3+ Views Right XR Foot 3+ Views Right Follow-up With When Contact Information Raquel Nolan MD [address] [place] [address]- Additional Instructions: Patient Education Contusion, Qfsc-jf-Lzni Problem List/Past Medical History Ongoing Depression Smoker Historical Smoker Supervision of normal (more content not included)... Normal [facility] Comment on above: Result Comment: Elec tronically Signed By: Timothy TREVIZO, Tony Bhatia\.br\Date and Time Signed: 12/18/22 16:13 EDT Patient Educationon 12-19-19 Patient Education Orthopedics Contusion A contusion is a deep bruise. This is a result of an injury that causes bleeding under the skin. Symptoms of bruising include pain, swelling, and discolored skin. The skin may turn blue, purple, or yellow. Follow these instructions at home: Managing pain, stiffness, and swelling You may use RICE. This stands for: ? Resting. ? Icing. ? Compression, or putting pressure. ? Elevating, or raising the injured area. To follow this method, do these actions: ? Rest the injured area. ? If told, put ice on the injured area. ? Put ice in a plastic bag. ? Place a towel between your skin and the bag. ? Leave the ice on for 20 minutes, 2?3 times per day. ? If told, put light pressure (compression) on the injured area using an elastic bandage. Make sure the bandage is not too tight. If the area tingles or becomes numb, remove it and put it back on as told by your doctor. ? If possible, raise (elevate) the injured area above the level of your heart while you are sitting or lying down. General instructions ? Take epsj-vgj-kprtqtg and prescription medicines only as told by your doctor. ? Keep all follow-up visits as told by your doctor. This is important. Contact a doctor if: ? Your symptoms do not get better after several days of treatment. ? Your symptoms get worse. ? You have trouble moving the injured area. Get help right away if: ? You have very bad pain. ? You have a loss of feeling (numbness) in a hand or foot. ? Your hand or foot turns pale or cold. Summary ? A contusion is a deep bruise. This is a result of an injury that causes bleeding under the skin. ? Symptoms of bruising include pain, swelling, and discolored skin. The skin may turn blue, purple, or yellow. ? This condition is treated with rest, ice, compression, and elevation. This is also called RICE. You may be given hubp-uhu-ypnlxnx medicines for pain. ? Contact a doctor if you do not feel better, or you feel worse. Get help right away if you have very bad pain, have lost feeling in a hand or foot, or the area turns pale or cold. This information is not intended to replace advice given to you by your health care provider. Make sure you discuss any questions you have with your health care provider. Document Revised: 01/15/2022 Document Reviewed: 01/15/2022 [employer] Patient Education ? 2022 [employer]. Normal [facility] XR Ankle 3+ Views Righton XR Ankle 3+ Views Right Exam Date/Time: 12/18/2022 15:56 EDT Reason for Exam: Pain Report IMPRESSION: No acute osseous findings. EXAMINATION/TECHNIQUE : XR Foot 3+ Views Right, 3+ views right ankle HISTORY: Right foot and ankle pain. COMPARISON: 04/30/2022. RESULT: Right foot/ankle: No evidence for acute fracture. No dislocation. Ankle mortise maintained. Joint spaces appear maintained. Mild hallux valgus. Mild soft tissue edema. No other significant abnormality. Ordering Provider: Tony Aguirre FINAL REPORT Dictated: 12/18/2022 4:05 pm Roque Vasques MD. Signed (Electronic Signature): 12/18/2022 4:05 pm Signed by: Roque Vasques MD Transcribed by: KEE Technologist: PHILIPPE Technical Comments Radiation Dose: Kar in mGy = na DAP = na Normal [facility] XR Foot 3+ Views Righton XR Foot 3+ Views Right Exam Date/Time: 12/18/2022 15:56 EDT Reason for Exam: Pain, Traumatic Report IMPRESSION: No acute osseous findings. EXAMINATION/TECHNIQUE : XR Foot 3+ Views Right, 3+ views right ankle HISTORY: Right foot and ankle pain. COMPARISON: 04/30/2022. RESULT: Right foot/ankle: No evidence for acute fracture. No dislocation. Ankle mortise maintained. Joint spaces appear maintained. Mild hallux valgus. Mild soft tissue edema. No other significant abnormality. Ordering Provider: Tony Aguirre FINAL REPORT Dictated: 12/18/2022 4:04 pm Roque Vasques MD. Signed (Electronic Signature): 12/18/2022 4:04 pm Signed by: Roque Vasques MD Transcribed by: KEE Technologist: PHILIPPE Technical Comments Radiation Dose: Ka,r in mGy = na DAP = na Normal [facility] CBC AUTO DIFFon 06-24-2022 BASO # 0.1 103/ul Normal 0.0-0.1 [facility] Comment on above: Performed By: #### C BC #### [facility] [address] [place] [address] Dr. Janett Plata Basophils/100 WBC (Bld) 1.1 % Normal 0.2-2.0 [facility] Comment on above: Performed By: #### C BC #### [facility] [address] [place] [address] Dr. Janett Plata EO # 0.1 103/ul Normal 0.0-0.7 [facility] Comment on above: Performed By: #### C BC #### [facility] [address] [place] [address] Dr. Janett Plata Eosinophils/100 WBC (Bld) 1.7 % Normal 0.9-7.0 [facility] Comment on above: Performed By: #### C BC #### [facility] [address] [place] [address] Dr. Janett Plata Erythrocyte distribution width (RBC) [Ratio] 12.6 % Normal 11.0-15.0 [facility] Comment on above: Performed By: #### C BC #### [facility] [address] [place] [address] Dr. Janett Plata Hematocrit (Bld) [Volume fraction] 41.0 % Normal 36.0-48.0 [facility] Comment on above: Performed By: #### C BC #### [facility] [address] [place] [address] Dr. Janett Plata Hemoglobin (Bld) [Mass/Vol] 13.3 g/dL Normal 12.0-16.0 [facility] Comment on above: Performed By: #### C BC #### [facility] [address] [place] [address] Dr. Janett Plata IG # 0.02 10e3/ul Normal 0.00-0.03 [facility] Comment on above: Performed By: #### C BC #### [facility] [address] [place] [address] Dr. Janett Plata IG % 0.3 % Normal 0.0-0.5 [facility] Comment on above: Performed By: #### C BC #### [facility] [address] [place] [address] Dr. Janett Plata LYMPH # 2.8 103/ul Normal 1.2-3.8 [facility] Comment on above: Performed By: #### C BC #### [facility] [address] [place] [address] Dr. Janett Plata Lymphocytes/100 WBC (Bld) 40.6 % Normal 20.5-60.0 [facility] Comment on above: Performed By: #### C BC #### [facility] [address] [place] [address] Dr. Janett Plata MANUAL DIFF REQ NO Normal [facility] Comment on above: Performed By: #### C BC #### [facility] [address] [place] [address] Dr. Janett Plata MCH (RBC) [Entitic mass] 30.4 pg Normal 26.7-34.0 [facility] Comment on above: Performed By: #### C BC #### [facility] [address] [place] [address] Dr. Janett Plata MCHC (RBC) [Mass/Vol] 32.4 g/dL Normal 29.9-35.2 [facility] Comment on above: Performed By: #### C BC #### [facility] [address] [place] [address] Dr. Janett Plata MCV (RBC) [Entitic vol] 93.8 fL Normal 81.0-99.0 [facility] Comment on above: Performed By: #### C BC #### [facility] [address] [place] [address] Dr. Janett Plata MONO # 0.4 103/ul Normal 0.3-0.8 [facility] Comment on above: Performed By: #### C BC #### [facility] [address] [place] [address] Dr. Janett Plata Monocytes/100 WBC (Bld) 5.4 % Normal 1.7-12.0 [facility] Comment on above: Performed By: #### C BC #### [facility] [address] [place] [address] Dr. Janett Plata NEUT # 3.6 103/ul Normal 1.4-6.5 [facility] Comment on above: Performed By: #### C BC #### [facility] [address] [place] [address] Dr. Janett Plata Neutrophils/100 WBC (Bld) 50.9 % Normal 43.0-75.0 [facility] Comment on above: Performed By: #### C BC #### [facility] [address] [place] [address] Dr. Janett Plata Platelet mean volume (Bld) [Entitic vol] 10.2 fL Normal 9.5-13.5 [facility] Comment on above: Performed By: #### C BC #### [facility] [address] [place] [address] Dr. Janett Plata PLT 267 103/ul Normal 150-450 [facility] Comment on above: Performed By: #### C BC #### [facility] [address] [address] [address] Janett Plata RBC 4.37 106/ul Normal 4.20-5.40 [facility] Comment on above: Performed By: #### C BC #### [facility] [address] [place] [address] Dr. Janett Plata WBC 7.0 103/ul Normal 4.0-11.0 [facility] Comment on above: Performed By: #### C BC #### [facility] [address] [place] [address] Dr. Janett Plata PREG QUANT HCGon 06-24-2022 HCG QUANT <1 Normal [facility] Comment on above: Performed By: #### P REGQNT #### [facility] [address] [place] [address] Dr. Janett Plata HCG RANGE SEE BELOW Normal [facility] Comment on above: Result Comment: 5-50 0.2-1 WEEK 50-500 1-2 WEEKS 100-5,000 2-3 WEEKS 500-10,000 3-4 WEEKS 1,000-50,000 4-5 WEEKS 10,000-100,000 5-6 WEEKS 15,000-200,000 6-8 WEEKS 10,000-100,000 2-3 MONTHS Performed By: #### P REGQNT #### [facility] [address] [place] [address] Dr. Janett Plata XR CHEST 2 Von 06-10-2022 XR CHEST 2 V EXAMINATION: XR CHES T 2 V HISTORY: Electronic cigarette user COMPARISON: No relevant comparison available. TECHNIQUE: PA and lateral FINDINGS: LUNGS: No significant pulmonary parenchymal abnormalities. VASCULATURE: No increased pulmonary vasculature. PLEURA: No pneumothorax, effusion, or pleural thickening. CARDIAC: No cardiomegaly or cardiac silhouette abnormality. MEDIASTINUM: No visible mass or adenopathy. BONES: No fracture or visible bone lesion. OTHER: Negative. IMPRESSION: No acute disease. Electronically authenticated by: BAO DESIR Date: 2022-06-10 10:31 Normal [facility] CNOVon 11-06-2021 CNOV Office Visit ([facility] ) SOCORRO JOSEPH ([id number]) 2000 F Date Time Provider Department 11/06/21 1:30 PM FERNANDA BROWN During your visit today, we recorded the following information about you: Fernanda Brown APRN.CNP 11/06/2021 1:17 PM Signed 1. Stay hydrated by drinking at least 8 glasses of water per day. This will help to keep your bowel habits more regular. 2. Continue taking your bowel regimen as prescribed by Dr. Gutierrez 3. Pelvic floor physical therapy. The goal of this therapy is to retrain the pelvic floor muscles to more appropriately relax and therefore improve evacuation of stool. Physical therapy is the most effective way to get the pelvic floor muscles moving and coordinating correctly. Pelvic floor PT was ordered today, reviewed scheduling process with patient and how to find local therapists. 4.Follow up with your referring physician. A copy of your test results will be sent to this physician. You may follow by virtual after completion of physical therapy Fernanda Brown APRN.CNP 11/06/2021 2:00 PM Signed PELVIC FLOOR COLON AND RECTAL SURGERY Reason for visit: Review anorectal manometry and EMG results History of Present Illness: Socorro Joseph is a 21 year old FEMALE who was seen at the request of Dr. Gutierrez for anorectal manometry testing, rectal sensation testing and EMG recruitment. Ms. Joseph was referred for testing due to symptoms of constipation. Office visit with Dr. Gutierrez on 10/10/2021 PRESENTING COMPLAINT 20 year old female with PMHx of tobacco use (active) and cervical dysplasia s/p LEEP procedure, who presents to IBD clinic to establish care for ?gastroenteritis. ? Accompanied by her boyfriend today. In terms of GI symptoms, at 8 years of age, after a meal had severe abd pain with nausea, vomiting, went to the ED, diagnosed with ovarian cyst (had menstrual cycles) and constipation, given abx for tt. ? Ms. Joseph reports being in usual state of health until 6 months ago. She developed lower abdominal burning pain intermittently, usually post-prandial, associated with nausea and multiple episodes of vomiting, but no diarrhea. She was in the ED 3 weeks ago with these symptoms, chart review from 09/17/2021 reveals a normal CBC/CMP/lipase, -ve FOBT, - UA, had a CT that's not on records, per pt diagnosed with gastroenteritis and ovarian cyst, prescribed abx, zofran and norco. Symptoms improved with this, however she has constant nausea all day, and abd pain only post-prandially, no emesis since ED visit. ? BMs: normal is 1 every 1-2 sometimes even every 3 weeks, has straining, feels constipated and has small BMs at a time, no blood. Took OTC Docusate and OTC laxative (Mg Citrate), did not help. Last normal BM over a year ago. ? No fevers or chills, gained weight recently. +ve cigarette smoking. No significant ETOH use. No known FHx of IBD, however mom has diarrhea and abd pain and is getting a colonoscopy soon. 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 No skin rash, no oral ulcers. IMPRESSION #Nausea and abdominal pain Long-standing history of chronic constipation (1 small BM every 1-3 weeks), not responsive to OTC stool softener and Mg citrate, never tried Miralax. Had an ED visit as a result as a 8 year old, and recently on 09/17 at [address]. Although CT incidentally showed ?gastroenteritis (report unavailable), her clinical picture is consistent with constipation induced nausea and abdominal pain. Suspect constipation from pelvic floor dysfunction. ? PLAN - Prescribed Miralax once daily, advised to titrate as needed for desired effect - ARM ordered to rule out dyssynergic defecation in s/o severe constipation Squatty potty She recently was put on Metformin about 2 weeks ago, she is now having bowel movements once a day. She is straining to get stool and does not feel completely empty after going. The stool consistency is unformed due to medicine usually stool is small in small amounts and hard. She denies any blood but could possibly see mucus in stool. She denies any protrusion of tissue or swelling feeling with BM. She does get bulging sensation from vagina at times with defecation. She denies any urinary issues, except frequency. She is on BC and Metformin and Miralax, but has not taken due to results from metformin. She does get pelvic pressure and pain relieved with bowel movements as well as sharp anorectal pain ( also relieved with bowel movement) Prior hysterectomy: No Obstetric history: 2 Para 2 Vaginal delivery: 2 vaginal births. - Episiotomy: No - Tear: Yes - Forceps No Previous Testing Results include: Colonoscopy: no Manometry: today Defecography: No No past medical history on file. No past surgical history on file. Current Outpatient Medications M (more content not included)... Normal [facility] HISTORY PHYSICALon HISTORY PHYSICAL HNO ID: [id number] Author: Fernanda Brown APRN.MASON HELPER Service: ? Author Type: Nurse Practitioner Type: HANDP Filed: 11/06/2021 2:00 PM Note Text: PELVIC FLOOR COLON AND RECTAL SURGERY Reason for visit: Review anorectal manometry and EMG results History of Present Illness: Socorro Joseph is a 21 year old FEMALE who was seen at the request of Dr. Gutierrez for anorectal manometry testing, rectal sensation testing and EMG recruitment. Ms. Joseph was referred for testing due to symptoms of constipation. Office visit with Dr. Gutierrez on 10/10/2021 PRESENTING COMPLAINT 20 year old female with PMHx of tobacco use (active) and cervical dysplasia s/p LEEP procedure, who presents to IBD clinic to establish care for ?gastroenteritis. ? Accompanied by her boyfriend today. In terms of GI symptoms, at 8 years of age, after a meal had severe abd pain with nausea, vomiting, went to the ED, diagnosed with ovarian cyst (had menstrual cycles) and constipation, given abx for tt. ? Ms. Joseph reports being in usual state of health until 6 months ago. She developed lower abdominal burning pain intermittently, usually post-prandial, associated with nausea and multiple episodes of vomiting, but no diarrhea. She was in the ED 3 weeks ago with these symptoms, chart review from 09/17/2021 reveals a normal CBC/CMP/lipase, -ve FOBT, - UA, had a CT that's not on records, per pt diagnosed with gastroenteritis and ovarian cyst, prescribed abx, zofran and norco. Symptoms improved with this, however she has constant nausea all day, and abd pain only post-prandially, no emesis since ED visit. ? BMs: normal is 1 every 1-2 sometimes even every 3 weeks, has straining, feels constipated and has small BMs at a time, no blood. Took OTC Docusate and OTC laxative (Mg Citrate), did not help. Last normal BM over a year ago. ? No fevers or chills, gained weight recently. +ve cigarette smoking. No significant ETOH use. No known FHx of IBD, however mom has diarrhea and abd pain and is getting a colonoscopy soon. 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 No skin rash, no oral ulcers. IMPRESSION #Nausea and abdominal pain Long-standing history of chronic constipation (1 small BM every 1-3 weeks), not responsive to OTC stool softener and Mg citrate, never tried Miralax. Had an ED visit as a result as a 8 year old, and recently on 09/17 at [address]. Although CT incidentally showed ?gastroenteritis (report unavailable), her clinical picture is consistent with constipation induced nausea and abdominal pain. Suspect constipation from pelvic floor dysfunction. ? PLAN - Prescribed Miralax once daily, advised to titrate as needed for desired effect - ARM ordered to rule out dyssynergic defecation in s/o severe constipation Squatty potty She recently was put on Metformin about 2 weeks ago, she is now having bowel movements once a day. She is straining to get stool and does not feel completely empty after going. The stool consistency is unformed due to medicine usually stool is small in small amounts and hard. She denies any blood but could possibly see mucus in stool. She denies any protrusion of tissue or swelling feeling with BM. She does get bulging sensation from vagina at times with defecation. She denies any urinary issues, except frequency. She is on BC and Metformin and Miralax, but has not taken due to results from metformin. She does get pelvic pressure and pain relieved with bowel movements as well as sharp anorectal pain ( also relieved with bowel movement) Prior hysterectomy: No Obstetric history: 2 Para 2 Vaginal delivery: 2 vaginal births. - Episiotomy: No - Tear: Yes - Forceps No Previous Testing Results include: Colonoscopy: no Manometry: today Defecography: No No past medical history on file. No past surgical history on file. Current Outpatient Medications Medication Sig Dispense Refill - ondansetron (ZOFRAN) 4 mg tablet Take 4 mg by mouth every 8 hours as needed for nausea/vomiting. - amoxicillin (AMOXIL) 875 mg tablet Take 875 mg by mouth twice daily. - polyethylene glycol 3350 (MIRALAX) 17 gram/dose powder Take 17 g by mouth once daily. Dissolve dose in 4 - 8 ounces of liquid and take as directed. 507 g 5 No current facility-administered medications for this visit. ALLERGIES No Known Allergies No family history on file. Social History Tobacco Use - Smoking status: Current Some Day Smoker Packs/day: 1.00 Types: Cigarettes - Smokeless tobacco: Not on file - Tobacco comment: smokes 1 packs every 2 days Substance Use Topics - Alcohol use: Not Currently - Drug use: Not on file Physical Exam: There were no vitals filed for this visit. General Appearance: Well appearing, alert, in no acute distress, well-hydrated, well nourished. Anorectal: Perianal skin is intact. No erythema, induration or e (more content not included)... Normal [facility] DHEA SERUMon 10-23-2021 Dehydroepiandrosterone (DHEA) 234 ng/dL Normal 31-701 [facility] Comment on above: Result Comment: Age 1 - 5 years 0 - 67 6 - 7 years 0 - 110 8 - 10 years 0 - 185 11 - 12 years 0 - 201 13 - 14 years 0 - 318 15 - 16 years 39 - 481 17 - 19 years 40 - 491 >19 years 31 - 701 Performed By: #### D [facility]. #### [facility] [address] [address] [address] Janett Plata US PELVIS AND TRANSVAGon US PELVIS AND TRANSVAG EXAMINATION: US PELVIS AND TRANSVAG HISTORY: Irregular periods COMPARISON: No relevant comparison available. TECHNIQUE: Transabdominal and transvaginal sonographic examination. FINDINGS: UTERUS: Normal size and appearance. Uterus size: 7.8 x 6.5 x 4.6 cm ENDOMETRIUM: Normal homogeneous appearance. Endometrial thickness: 10 mm RIGHT OVARY: Normal size and appearance, containing multiple small follicles. Duplex Doppler demonstrates normal waveform and flow; resistive index 0.55. Ovary size: 4.3 x 3.2 x 2.5 cm LEFT OVARY: Normal size and appearance, containing multiple small follicles. Duplex Doppler demonstrates normal waveform and flow; resistive index 0.55. Ovary size: 3.3 x 2.2 x 1.6 cm CUL-DE-SAC: Unremarkable. No significant free fluid. BLADDER: Unremarkable. OTHER: None. IMPRESSION: 1. Normal-appearing uterus and ovaries. Both ovaries contain multiple small follicles. Electronically authenticated by: EVELIA LLAMAS Date: 2021-10-21 08:09 Normal [facility] DHEA-SULFATEon 10-19-2021 DHEA-Sulfate 244.0 ug/dL Normal 110.0-431.7 [facility] Comment on above: Performed By: #### D HEASUL ####[facility] [id number] [address]Dr. Janett Plata FSHon 10-19-2021 FSH 8.3 mIU/mL Normal [facility] Comment on above: Result Comment: Adul t Female: Follicular phase 3.5 - 12.5 Ovulation phase 4.7 - 21.5 Luteal phase 1.7 - 7.7 Postmenopausal 25.8 - 134.8 Performed By: #### L BCFSH #### [facility] [address] [place] [address] Dr. Janett Plata LUTEINIZING HORMONE (LH)on 0 10-19-2021 LH 21.9 mIU/mL Normal [facility] Comment on above: Result Comment: Adul t Female: Follicular phase 2.4 - 12.6 Ovulation phase 14.0 - 95.6 Luteal phase 1.0 - 11.4 Postmenopausal 7.7 - 58.5 Performed By: #### L BCLH #### [facility] [address] [address] [address] Janett Plata CBC AUTO DIFFon 10-18-2021 BASO # 0.0 103/ul Normal 0.0-0.1 [facility] Comment on above: Performed By: #### C BC #### [facility] [address] [place] [address] Dr. Janett Plata Basophils/100 WBC (Bld) 0.4 % Normal 0.2-2.0 [facility] Comment on above: Performed By: #### C BC #### [facility] [address] [place] [address] Dr. Janett Plata EO # 0.1 103/ul Normal 0.0-0.7 [facility] Comment on above: Performed By: #### C BC #### [facility] [address] [place] [address] Dr. Janett Plata Eosinophils/100 WBC (Bld) 1.1 % Normal 0.9-7.0 [facility] Comment on above: Performed By: #### C BC #### [facility] [address] [place] [address] Dr. Janett Plata Erythrocyte distribution width (RBC) [Ratio] 12.1 % Normal 11.0-15.0 [facility] Comment on above: Performed By: #### C BC #### [facility] [address] [place] [address] Dr. Janett Plata Hematocrit (Bld) [Volume fraction] 39.9 % Normal 36.0-48.0 [facility] Comment on above: Performed By: #### C BC #### [facility] [address] [place] [address] Dr. Janett Plata Hemoglobin (Bld) [Mass/Vol] 13.0 g/dL Normal 12.0-16.0 [facility] Comment on above: Performed By: #### C BC #### [facility] [address] [place] [address] Dr. Janett Plata IG # 0.02 10e3/ul Normal 0.00-0.03 [facility] Comment on above: Performed By: #### C BC #### [facility] [address] [place] [address] Dr. Janett Plata IG % 0.2 % Normal 0.0-0.5 [facility] Comment on above: Performed By: #### C BC #### [facility] [address] [place] [address] Dr. Janett Plata LYMPH # 2.9 103/ul Normal 1.2-3.8 [facility] Comment on above: Performed By: #### C BC #### [facility] [address] [place] [address] Dr. Janett Plata Lymphocytes/100 WBC (Bld) 32.0 % Normal 20.5-60.0 [facility] Comment on above: Performed By: #### C BC #### [facility] [address] [place] [address] Dr. Janett Plata MANUAL DIFF REQ NO Normal [facility] Comment on above: Performed By: #### C BC #### [facility] [address] [place] [address] Dr. Janett Plata MCH (RBC) [Entitic mass] 31.0 pg Normal 26.7-34.0 [facility] Comment on above: Performed By: #### C BC #### [facility] [address] [place] [address] Dr. Janett Plata MCHC (RBC) [Mass/Vol] 32.6 g/dL Normal 29.9-35.2 [facility] Comment on above: Performed By: #### C BC #### [facility] [address] [place] [address] Dr. Janett Plata MCV (RBC) [Entitic vol] 95.2 fL Normal 81.0-99.0 [facility] Comment on above: Performed By: #### C BC #### [facility] [address] [place] [address] Dr. Janett Plata MONO # 0.5 103/ul Normal 0.3-0.8 [facility] Comment on above: Performed By: #### C BC #### [facility] [address] [place] [address] Dr. Janett Plata Monocytes/100 WBC (Bld) 5.3 % Normal 1.7-12.0 [facility] Comment on above: Performed By: #### C BC #### [facility] [address] [place] [address] Dr. Janett Plata NEUT # 5.5 103/ul Normal 1.4-6.5 [facility] Comment on above: Performed By: #### C BC #### [facility] [address] [address] [address] Janett Plata Neutrophils/100 WBC (Bld) 61.0 % Normal 43.0-75.0 [facility] Comment on above: Performed By: #### C BC #### [facility] [address] [address] [address] Janett Plata Platelet mean volume (Bld) [Entitic vol] 9.5 fL Normal 9.5-13.5 [facility] Comment on above: Performed By: #### C BC #### [facility] [address] [address] [address] Janett Plata PLT 227 103/ul Normal 150-450 [facility] Comment on above: Performed By: #### C BC #### [facility] [address] [address] [address] Janett Plata RBC 4.19 106/ul Critically low 4.20-5.40 [facility] Comment on above: Performed By: #### C BC #### [facility] [address] [address] [address] Janett Plata WBC 9.1 103/ul Normal 4.0-11.0 [facility] Comment on above: Performed By: #### C BC #### [facility] [address] [place] [address] Dr. Janett Plata TSHon 10-18-2021 TSH 1.507 uIU/mL Normal 0.358-3.740 [facility] Comment on above: Performed By: #### T SH #### [facility] [address] [address] [address] Janett Plata URINALYSISOrdered By: Cristina Wright on 09-18-2021 Bilirubin Ql (U) Negative (09/18/21 1:25 AM) Normal Negative [facility] UA Auto SS Clarity (U) Clear (09/18/21 1:25 AM) Normal Clear [facility] UA Auto SS Color (U) Yellow (09/18/21 1:25 AM) Normal Yellow [facility] UA Auto SS Epithelial cells.squamous LM.HPF (Urine sed) [#/Area] 0-2 /HPF Normal 0-2/HPF [facility] UA Auto SS Glucose Test strip (U) [Mass/Vol] Negative (09/18/21 1:25 AM) Normal Negative [facility] UA Auto SS Hemoglobin Ql (U) Negative (09/18/21 1:25 AM) Normal Negative [facility] UA Auto SS Ketones (U) [Mass/Vol] Negative (09/18/21 1:25 AM) Normal Negative [facility] UA Auto SS [place].plasma/[place].RB C (Bld) [Mass ratio] 0-3 /HPF Normal 0-3/HPF [facility] UA Aut o SS Nitrite Ql (U) Negative (09/18/21 1:25 AM) Normal Negative [facility] UA Auto SS pH (U) 6.5 *NA* (09/18/21 1:25 AM) Invalid Interpretation Code 5.0 - 9.0 [facility] Auto SS Protein (U) [Mass/Vol] Negative (09/18/21 1:25 AM) Normal Negative [facility] UA Auto SS Specific gravity (U) [Rel density] <=1.005 *NA* (09/18/21 1:25 AM) Invalid Interpretation Code 1.005 - 1.030 [facility] UA Auto SS UA Spec Desc Clean Catch (09/18/21 1:25 AM) Normal [facility] UA Auto SS Urobilinogen Qn (U) [id number] {Paco'U}/dL Normal 0.0 - 1.0 EU/dL [facility] UA Auto SS WBC Auto Ql (U) Negative (09/18/21 1:25 AM) Normal Negative [facility] UA Auto SS WBC LM.HPF (Urine sed) [#/Area] 0-5 /HPF Normal 0-5/HPF [facility] UA Auto SS CHEMISTRYOrdered By: SYSTEM SYSTEM on 09-17-2021 Albumin [Mass/Vol] 4.5 g/dL Normal 3.3 - 5.0 gm/dL [facility] Remisol Albumin/Globulin [Mass ratio] 1.6 {ratio} Normal 1.1 - 2.2 [facility] Remisol ALP [Catalytic activity/Vol] 71 [iU]/d Normal 21 - 98 Int._Unit/L [facility] Remisol ALT No additional P-5'-P [Catalytic activity/Vol] 27 [iU]/d Normal 6 - 46 Int._Unit/L [facility] Remisol Anion gap [Moles/Vol] 14 mmol/L Normal 6 - 16 mEq/L [facility] Remisol AST [Catalytic activity/Vol] 32 [iU]/d Normal 5 - 43 Int._Unit/L [facility] Remisol Bilirubin [Mass/Vol] 0.6 mg/dL Normal 0.0 - 1 .1 mg/dL [facility] Remisol Bilirubin.direct [Mass/Vol] mg/dL Normal 0.1 - 0.4 mg/dL [facility] Remisol Bilirubin.indirect [Mass or moles/Vol] Unable to Calculate mg/dL Invalid Interpretation Code 0.1 - 0.9 mg/dL [facility] Remisol Calcium [Mass/Vol] 9.2 mg/dL Normal 8.9 - 11. 1 mg/dL [facility] Chloride [Moles/Vol] 105 mmol/L Normal 101 - 1 11 mmol/L [facility] Remisol CO2 [Moles/Vol] 23 mmol/L Normal 21 - 31 mmol/L [facility] Remisol Creatinine [Mass/Vol] 0.6 mg/dL Normal 0.5 - 1.3 mg/dL [facility] Rem[facility] GFR/1.73 sq M.predicted among blacks MDRD (S/P/Bld) [Vol rate/Area] mL/min/1.73 m2 Normal >=59mL/min/ 1.73 m2 [facility] S GFR/1.73 sq M.predicted among non-blacks MDRD (S/P/Bld) [Vol rate/Area] mL/min/1.73 m2 Normal >=59mL/min/ 1.73 m2 [facility] S Globulin (S) [Mass/Vol] 2.8 g/dL Normal 1.4 - 4.0 gm/dL [facility] Glucose [Mass/Vol] 109 mg/dL Normal 55 - 199 mg/dL [facility] Lipase [Catalytic activity/Vol] 23 U/L Normal 13 - 58 unit/L [facility] Potassium [Moles/Vol] 3.5 mmol/L Normal 3.5 - 5.3 mmol/L [facility] Protein [Mass/Vol] 7.3 g/dL Normal 6.0 - 7.8 gm/dL [facility] Sodium [Moles/Vol] 138 mmol/L Normal 135 - 145 mmol/L [facility] Urea nitrogen [Mass/Vol] 10 mg/dL Normal 5 - 21 mg/dL [facility] Urea nitrogen/Creatinine [Mass ratio] 17 mg/mg Normal 10 - 20 [facility] HEMATOLOGYOrdered By: SYSTEM SYSTEM on 09-17-2021 Basophils/100 WBC (Bld) 0.4 % Normal 0.0 - 2.0 % [facility] Basophils/Leukocytes Auto (Bld) [Pure # fraction] 0.0 E9/L Normal 0.0 - 0.2 E9/L [facility] Eosinophils/100 WBC (Bld) 0.7 % Normal 0.0 - 8.0 % [facility] Eosinophils/Leukocytes Auto (Bld) [Pure # fraction] 0.1 E9/L Normal 0.0 - 0.5 E9/L [facility] Lymphocytes/100 WBC (Bld) 33.7 % Normal 14 .0 - 50.0 % [facility] Lymphocytes/Leukocytes Auto (Bld) [Pure # fraction] 3.6 E9/L Normal 1.0 - 4.0 E9/L [facility] Monocytes/100 WBC (Bld) 6.4 % Normal 4.0 - 14.0 % [facility] Monocytes/Leukocytes Auto (Bld) [Pure # fraction] 0.7 E9/L Normal 0.2 - 1.0 E9/L [facility] Neutrophils/100 WBC (Bld) 58.8 % Normal 36 .0 - 75.0 % [facility] Neutrophils/Leukocytes Auto (Bld) [Pure # fraction] 6.3 E9/L Normal 2.0 - 7.5 E9/L [facility] HEMATOLOGYOrdered By: Coretta li on 09-17-2021 Erythrocyte distribution width (RBC) [Ratio] 13.1 % Normal 10.9 - 14.2 % [facility] Hematocrit (Bld) [Volume fraction] 41.1 % Normal 34.0 - 46.0 % [facility] Hemoglobin (Bld) [Mass/Vol] 14.0 g/dL Normal 12.0 - 16.0 gm/dL [facility] MCH (RBC) [Entitic mass] 31.8 pg Normal 27. 0 - 34.0 pg [facility] MCHC (RBC) [Mass/Vol] 34.1 g/dL Normal 31.4 - 36.0 gm/dL [facility] MCV (RBC) [Entitic vol] 93.2 fL Normal 80.0 - 100.0 fL [facility] Platelet mean volume (Bld) [Entitic vol] 8.4 fL Normal 6.4 - 10.8 fL [facility] Platelets (Bld) [#/Vol] 233.0 E9/L Normal 150. 0 - 500.0 E9/L [facility] RBC (Bld) [#/Vol] 4.4 E12/L Normal 4.3 - 5.9 E12/L [facility] WBC corrected for nucl RBC Auto (Bld) [#/Vol] 10.7 E9/L Normal 4.0 - 11.0 E9/L [facility] MICRO OTHER TESTSOrdered By: Coretta Tony on 09-17-2021 Occult Bld Stl Negative (09/17/21 10:40 PM) Normal Negative [facility] SEROLOGYOrdered By: iLnh Wright on 09-17-2021 Beta hCG Ql Negative (09/17/21 10:42 PM) Normal [facility] BLOOD BANKOrdered By: Coretta li on 07-16-2021 ABO/Rh Interp Positive Invalid Interpretation Code [facility] BB Subsection CHEMISTRYOrdered By: SYSTEM SYSTEM on 07-16-2021 Anion gap [Moles/Vol] 12 mmol/L Normal 6 - 16 mEq/L [facility] Calcium [Mass/Vol] 9.1 mg/dL Normal 8.9 - 11. 1 mg/dL [facility] Chloride [Moles/Vol] 103 mmol/L Normal 101 - 1 11 mmol/L [facility] CO2 [Moles/Vol] 24 mmol/L Normal 21 - 31 mmol/L [facility] Creatinine [Mass/Vol] 0.5 mg/dL Normal 0.5 - 1.3 mg/dL [facility] GFR/1.73 sq M.predicted among blacks MDRD (S/P/Bld) [Vol rate/Area] mL/min/1.73 m2 Normal >=59mL/min/ 1.73 m2 [facility] Chem S GFR/1.73 sq M.predicted among non-blacks MDRD (S/P/Bld) [Vol rate/Area] mL/min/1.73 m2 Normal >=59mL/min/ 1.73 m2 [facility] Chem S Glucose [Mass/Vol] 114 mg/dL Normal 55 - 199 mg/dL [facility] Potassium [Moles/Vol] 3.6 mmol/L Normal 3.5 - 5.3 mmol/L [facility] Sodium [Moles/Vol] 135 mmol/L Normal 135 - 145 mmol/L [facility] Urea nitrogen [Mass/Vol] 17 mg/dL Normal 5 - 21 mg/dL [facility] Urea nitrogen/Creatinine [Mass ratio] 34 mg/mg High 10 - 20 [facility] COAGULATIONOrdered By: Panchito Rosales on 07-16-2021 aPTT Coag (PPP) [Time] 36.1 s Normal 25.1 - 36.5 second(s) [facility] Coag INR Coag (PPP) [Relative time] 1.0 {INR} Invalid Interpretation Code [facility] Auto Coag PT Coag (PPP) [Time] 12.3 s Normal 10.2 - 12.9 second(s) [facility] Auto Coag HEMATOLOGYOrdered By: SYSTEM SYSTEM on 07-16-2021 Basophils/100 WBC (Bld) 0.4 % Normal 0.0 - 2.0 % [facility] Basophils/Leukocytes Auto (Bld) [Pure # fraction] 0.0 E9/L Normal 0.0 - 0.2 E9/L [facility] Eosinophils/100 WBC (Bld) 0.8 % Normal 0.0 - 8.0 % [facility] Eosinophils/Leukocytes Auto (Bld) [Pure # fraction] 0.1 E9/L Normal 0.0 - 0.5 E9/L [facility] Lymphocytes/100 WBC (Bld) 39.8 % Normal 14 .0 - 50.0 % [facility] Lymphocytes/Leukocytes Auto (Bld) [Pure # fraction] 2.6 E9/L Normal 1.0 - 4.0 E9/L [facility] Monocytes/100 WBC (Bld) 5.8 % Normal 4.0 - 14.0 % [facility] Monocytes/Leukocytes Auto (Bld) [Pure # fraction] 0.4 E9/L Normal 0.2 - 1.0 E9/L [facility] Neutrophils/100 WBC (Bld) 53.2 % Normal 36 .0 - 75.0 % [facility] Neutrophils/Leukocytes Auto (Bld) [Pure # fraction] 3.5 E9/L Normal 2.0 - 7.5 E9/L [facility] HEMATOLOGYOrdered By: Coretta li on 07-16-2021 Erythrocyte distribution width (RBC) [Ratio] 13.3 % Normal 10.9 - 14.2 % [facility] Hematocrit (Bld) [Volume fraction] 38.5 % Normal 34.0 - 46.0 % [facility] Hemoglobin (Bld) [Mass/Vol] 13.1 g/dL Normal 12.0 - 16.0 gm/dL [facility] MCH (RBC) [Entitic mass] 31.4 pg Normal 27. 0 - 34.0 pg [facility] MCHC (RBC) [Mass/Vol] 34.2 g/dL Normal 31.4 - 36.0 gm/dL [facility] MCV (RBC) [Entitic vol] 92.0 fL Normal 80.0 - 100.0 fL [facility] Platelet mean volume (Bld) [Entitic vol] 8.6 fL Normal 6.4 - 10.8 fL [facility] Platelets (Bld) [#/Vol] 213.0 E9/L Normal 150. 0 - 500.0 E9/L [facility] RBC (Bld) [#/Vol] 4.2 E12/L Low 4.3 - 5.9 E12/L [facility] WBC corrected for nucl RBC Auto (Bld) [#/Vol] 6.6 E9/L Normal 4.0 - 11.0 E9/L [facility] SEROLOGYOrdered By: Charlotte stanford on 07-16-2021 HCG.beta subunit (U) [Moles/Vol] Negative Normal [facility] URINALYSISOrdered By: Charlotte Rosales on 07-16-2021 Bilirubin Ql (U) Negative (07/16/21 3:20 PM) Normal Negative [facility]A Auto SS Clarity (U) Clear (07/16/21 3:20 PM) Normal Clear [facility]A Auto SS Color (U) Yellow (07/16/21 3:20 PM) Normal Yellow [facility]A [facility] SS Epithelial cells.squamous LM.HPF (Urine sed) [#/Area] 0-2 /HPF Normal 0-2/HPF [facility]A Auto SS Glucose Test strip (U) [Mass/Vol] Negative (07/16/21 3:20 PM) Normal Negative [facility]A Auto SS Hemoglobin Ql (U) 1+ *ABN* (07/16/21 3:20 PM) Invalid Interpretation Code Negative [facility]A Auto SS Ketones (U) [Mass/Vol] Negative (07/16/21 3:20 PM) Normal Negative [facility] UA Auto SS [place].plasma/[place].RB C (Bld) [Mass ratio] 4-20 /HPF Normal 0-3/HPF [facility] UA Aut o SS Nitrite Ql (U) Negative (07/16/21 3:20 PM) Normal Negative [facility]A Auto SS pH (U) 7.0 *NA* (07/16/21 3:20 PM) Invalid Interpretation Code 5.0 - 9.0 [facility]A Auto SS Protein (U) [Mass/Vol] Negative (07/16/21 3:20 PM) Normal Negative [facility]A Auto SS Specific gravity (U) [Rel density] 1.010 *NA* (07/16/21 3:20 PM) Invalid Interpretation Code 1.005 - 1.030 [facility]A Auto SS UA Spec Desc Clean Catch (07/16/21 3:20 PM) Normal [facility]A Auto SS Urobilinogen Qn (U) [id number] {Paco'U}/dL Normal 0.0 - 1.0 EU/dL [facility] Auto SS WBC Auto Ql (U) Negative (07/16/21 3:20 PM) Normal Negative [facility]A Auto SS WBC LM.HPF (Urine sed) [#/Area] 0-5 /HPF Normal 0-5/HPF [facility] UA Auto SS Progress Noteon 07-05-2017 [employer] Aut[employer] Interface Message Text GeneticsNoteReason for ReferralSocorro, her partner Uli, her mother and sister were seen on 07/05/2017 at [facility] by myself and Brenda [facility]. Chandana Huitron MD requested a genetic consult to discuss theprevious ultrasound finding of a choroid plexus cyst. The ultrasound also notedpossible shortened cervical length.HistoryAt the time of the visit Socorro was 16 y.o. and , approximately 20 weeks 1day by prior established dating, with an KAIN of 11/21/17.Prior to her visit Socorro had an ultrasound performed at 19 weeks 2 daysgestation that was significant for a right choroid plexus cyst and possibleshortened cervical length.Family History (scanned under media tab)Maternal first cousin with a congenital heart defect not requiring surgery, butrestricting participation in sports.Maternal grandmother and two of her grandmother's siblings reportedly ofcardiac issues at age 47 years.Paternal aunt reported to have a hole in her spine affecting walking to acertain degree. She reportedly has a son with a hole in his spine who iscompletely asymptomatic. This aunt also has a 23 year old son withhydrocephalus, cerebral palsy, intellectual disability, and deafness. She hasanother son who is 7 years of age, who was born premature, has a trach, anddevelopmental delays. There is no known chromosome abnormality known toBsharron, as an underlying etiology for the two cousins with developmentaldelays.Alejandra rahman's reported family history is unremarkable.The remainder of the and family medical history was also obtainedwhich was non-contributory.Gene tic Counseling SummaryChoroid Plexus Cysts:We discussed that choroid plexus cysts (CPCs) typically occur as normal variantsand are a common ultrasound finding, seen in approximately 1% to 2% of fetusesin the second trimester. They are not associated with an increased chance ofneurological problems and usually resolve on their own. However, regardless ofwhether or not they resolve, CPCs are associated with an increased risk oftrisomy 18, and to a lesser extent, Down syndrome. When identified, the presenceof structural malformations and other sonographic markers of aneuploidy shouldbe assessed including a detailed examination of the heart with 4-chamberview and outflow tracts view, hands for clenching or other abnormalpositioning, and biometry for assessment of intrauterine growthrestriction. If no other sonographic abnormalities are present, the choroidplexus cyst is considered isolated, and the increased risk is typicallyconsidered to be less than 1%, as long as there are not additional risks such asfamily history, advanced maternal age, or abnormal maternal serum screening. Wediscussed the option of maternal serum cell-free DNA screening forspecific chromosome abnormalities, including trisomy 18, that can be done at anytime in the after 9 weeks' gestation. We also discussed diagnostictesting through amniocentesis.Althoug h the paternal family histories of two cousins with developmental delaysdid not appear to be consistent with trisomy 18, recommend a genetic consult, ifnot already done, to determine if there is an underlying genetic etiology foreither of these cousins problems. Although not related to CPCs, we discussed the option of universal carrierscreening for conditions such as cystic fibrosis, spinal muscular atrophy, andFragile X syndrome. Follow up testing options discussed included: Comprehensive Ultrasound Amniocentesis Maternal serum cell-free DNA screening [place] carrier screeningFollowing our discussion Socorro elected to have: Ultrasound only and declined additional screening and testing.Ultrasound FindingsThe ultrasound was consistent with prior ultrasound dating. 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 Otherwise the ultrasound was unremarkable. The cervicallength was in the normal range. Please refer to the ultrasound report for fulldetails.Follow-up No follow-up in [facility] necessary unless additional concerns arise. Recommend that Socorro's mother follow-up with her physician in regard to herfamily history of early-onset heart conditions Recommend genetic consult for [place] paternal first cousins to rule out agenetic etiology for their defects/developmental delays which may provideimportant etiologic information for their nuclear family as well as other familymembers. Follow up as clinically indicated. Mitch Phillips MD and SCOT Mark Normal [facility] Vital Signs Date Time Vital Sign Value Performing Clinician Facility 06-29-2023 23:53-0400 Diastolic blood pressure 64 mm[Hg] Amberly Whitehead [facility] 06-29-2023 23:53-0400 Heart rate 65 /min Amberly Whitehead [facility] 06-29-2023 23:53-0400 Mean blood pressure 79 mm[Hg] Kaylinn Dokken [facility] 06-29-2023 23:53-0400 Respiratory rate 16 /min Kaylinn Dokken [facility] 06-29-2023 23:53-0400 SaO2% (BldA) [Mass fraction] 98 % Kaylinn Dokken [facility] 06-29-2023 23:53-0400 Systolic blood pressure 110 mm[Hg] Kaylinn Dokken [facility] 06-29-2023 22:37-0400 Diastolic blood pressure 65 mm[Hg] Kaylinn Dokken [facility] 06-29-2023 22:37-0400 Heart rate 62 /min Kaylinn Dokken [facility] 06-29-2023 22:37-0400 Mean blood pressure 81 mm[Hg] Kaylinn Dokken [facility] 06-29-2023 22:37-0400 Respiratory rate 16 /min Kaylinn Dokken [facility] 06-29-2023 22:37-0400 SaO2% (BldA) [Mass fraction] 98 % Kaylinn Dokken [facility] 06-29-2023 22:37-0400 Systolic blood pressure 114 mm[Hg] Kaylinn Dokken [facility] 06-29-2023 21:29-0400 Diastolic blood pressure 57 mm[Hg] Kaylinn Dokken [facility] 06-29-2023 21:29-0400 Heart rate 58 /min Teylinn Dokken [facility] 06-29-2023 21:29-0400 Mean blood pressure 76 mm[Hg] Kaylinn Dokken [facility] 06-29-2023 21:29-0400 Respiratory rate 16 /min Kaylinn Dokken [facility] 06-29-2023 21:29-0400 SaO2% (BldA) [Mass fraction] 99 % Awildainn Dokken [facility] 06-29-2023 21:29-0400 Systolic blood pressure 115 mm[Hg] Teylinn Dokken [facility] 06-29-2023 20:10-0400 Heart rate 61 /min Teylinn Dokken [facility] 06-29-2023 19:25-0400 Body temperature 98.42 [degF] Teylinn Dokken [facility] 06-29-2023 19:25-0400 Heart rate 62 /min Teylinn Dokken [facility] 02-16-2023 07:05-0500 Diastolic blood pressure 56 mm[Hg] Jacinto Maury [facility] 02-16-2023 07:05-0500 Heart rate 58 /min Jacinto Maury [facility] 02-16-2023 07:05-0500 Mean blood pressure 73 mm[Hg] Jacinto Maury [facility] 02-16-2023 07:05-0500 Respiratory rate 18 /min Jacinto Maury [facility] 02-16-2023 07:05-0500 SaO2% (BldA) [Mass fraction] 99 % Jacinto Maury [facility] 02-16-2023 07:05-0500 Systolic blood pressure 106 mm[Hg] Jacinto Maury [facility] 02-16-2023 06:16-0500 Diastolic blood pressure 68 mm[Hg] Jacinto Maury [facility] 02-16-2023 06:16-0500 Heart rate 81 /min Jacinto Maury [facility] 02-16-2023 06:16-0500 Mean blood pressure 81 mm[Hg] Jacinto Maury [facility] 02-16-2023 06:16-0500 Respiratory rate 18 /min Jacinto Maury [facility] 02-16-2023 06:16-0500 SaO2% (BldA) [Mass fraction] 99 % Jacinto Maury [facility] 02-16-2023 06:16-0500 Systolic blood pressure 106 mm[Hg] Jacinto Maury [facility] 02-16-2023 05:18-0500 gluc 100 mg/dL Jacinto Maury [facility] 02-16-2023 05:18-0500 gluc Jacinto Maury [facility] 02-16-2023 05:12-0500 Body temperature 97.7 [degF] Jacinto Maury [facility] 02-16-2023 05:12-0500 Diastolic blood pressure 75 mm[Hg] Jacinto Maury [facility] 02-16-2023 05:12-0500 Heart rate 73 /min Jacinto Maury [facility] 02-16-2023 05:12-0500 Respiratory rate 16 /min Jacinto Maury [facility] 02-16-2023 05:12-0500 SaO2% (BldA) [Mass fraction] 98 % Jacinto Maury [facility] 02-16-2023 05:12-0500 Systolic blood pressure 120 mm[Hg] Jacinto Maury [facility] 10-10-2021 13:50-0400 Body height 175.3 cm Javier Gutierrez MD Work Phone: [facility] 10-10-2021 13:50-0400 Body temperature 96.69 [degF] Javier Gutierrez MD Work Phone: [facility] 10-10-2021 13:50-0400 Body weight 75.52 kg Javier Gutierrez MD Work Phone: [facility] 10-10-2021 13:50-0400 Diastolic blood pressure 68 mm[Hg] Javier Gutierrez MD Work Phone: [facility] 10-10-2021 13:50-0400 Heart rate 67 /min Javier Gutierrez MD Work Phone: [facility] 10-10-2021 13:50-0400 SaO2% (BldA) [Mass fraction] 98 % Javier Gutierrez MD Work Phone: [facility] 10-10-2021 13:50-0400 Systolic blood pressure 116 mm[Hg] Javier Gutierrez MD Work Phone: [facility] 09-18-2021 02:53-0400 Diastolic blood pressure 58 mm[Hg] Kaylinn Dokken [facility] 09-18-2021 02:53-0400 Heart rate 58 /min Kaylinn Dokken [facility] 09-18-2021 02:53-0400 Hourly Rounding Kaylinn Dokken [facility] 09-18-2021 02:53-0400 Respiratory rate 16 /min Kaylinn Dokken [facility] 09-18-2021 02:53-0400 SaO2% (BldA) [Mass fraction] 100 % Kaylinn Dokken [facility] 09-18-2021 02:53-0400 Systolic blood pressure 101 mm[Hg] Kaylinn Dokken [facility] 09-18-2021 01:45-0400 Diastolic blood pressure 52 mm[Hg] Kaylinn Dokken [facility] 09-18-2021 01:45-0400 Heart rate 61 /min Kaylinn Dokken [facility] 09-18-2021 01:45-0400 Hourly Rounding Kaylinn Dokken [facility] 09-18-2021 01:45-0400 Respiratory rate 18 /min Kaylinn Dokken [facility] 09-18-2021 01:45-0400 SaO2% (BldA) [Mass fraction] 98 % Kaylinn Dokken [facility] 09-18-2021 01:45-0400 Systolic blood pressure 97 mm[Hg] Kaylinn Dokken [facility] 09-18-2021 00:15-0400 Hourly Rounding Kaylinn Dokken [facility] 09-17-2021 23:50-0400 Body temperature 97.88 [degF] Mary Annn Dokken [facility] 09-17-2021 23:50-0400 Diastolic blood pressure 61 mm[Hg] Awildainn Dokken [facility] 09-17-2021 23:50-0400 Heart rate 70 /min Mary Annn Dokken [facility] 09-17-2021 23:50-0400 Respiratory rate 18 /min Mary Annn kken [facility] 09-17-2021 23:50-0400 SaO2% (BldA) [Mass fraction] 98 % Mary Annn kken [facility] 09-17-2021 23:50-0400 Systolic blood pressure 107 mm[Hg] Mary Annn Dokken [facility] 09-17-2021 22:06-0400 Body temperature 98.06 [degF] yordann Dotrishaen [facility] 07-16-2021 16:39-0400 Diastolic blood pressure 54 mm[Hg] [facility] 07-16-2021 16:39-0400 Heart rate 64 /min [facility] 07-16-2021 16:39-0400 Mean blood pressure 73 mm[Hg] [facility] 07-16-2021 16:39-0400 Respiratory rate 16 /min [facility] 07-16-2021 16:39-0400 SaO2% (BldA) [Mass fraction] 99 % [facility] 07-16-2021 16:39-0400 Systolic blood pressure 111 mm[Hg] [facility] 07-16-2021 16:00-0400 Hourly Rounding [facility] 07-16-2021 16:00-0400 Promise to Return [facility] 07-16-2021 14:24-0400 Body temperature 98.42 [degF] [facility] 07-16-2021 14:24-0400 Diastolic blood pressure 81 mm[Hg] [facility] 07-16-2021 14:24-0400 Heart rate 67 /min [facility] 07-16-2021 14:24-0400 Respiratory rate 16 /min [facility] 07-16-2021 14:24-0400 SaO2% (BldA) [Mass fraction] 99 % [facility] 07-16-2021 14:24-0400 Systolic blood pressure 139 mm[Hg] [facility] Encounters Encounter Date Encounter Type Care Provider Facility Start: 09-21-2023 End: 09-21-2023 ambulatory TERESA AGUIRRE Not Available Start: 08-27-2023 End: 08-27-2023 ambulatory TERESA AGUIRRE Not Available Start: 06-30-2023 End: 06-30-2023 ambulatory RAQUEL NOLAN Not Available Start: 06-29-2023 End: 06-30-2023 Emergency department patient visit DO Amberly Whitehead Facility[facility] Start: 06-29-2023 End: 06-30-2023 Emergency department patient visit Amberly Néstor Ventura [facility] Start: 06-25-2023 End: 06-25-2023 ambulatory ARIADNA CBOB Not Available Start: 04-27-2023 End: 04-27-2023 ambulatory MARY NARAYAN Not Available Start: 03-09-2023 End: 03-09-2023 ambulatory HENRRY PORRAS Not Available Start: 02-16-2023 End: 02-16-2023 Emergency department patient visit Jacinto Mendiola Facility:[facility] Start: 02-16-2023 End: 02-16-2023 Emergency department patient visit Jacinto Mendiola [facility] Start: 12-18-2022 End: 12-19-2022 ambulatory Toyn Aguirre Facility:[facility] Start: 12-18-2022 End: 12-18-2022 Patient encounter procedure Tony Aguirre [facility] Start: 06-24-2022 End: 06-24-[address] SHAAN WITT . Facility: Start: 06-11-2022 Encounter for preprocedural cardiovascular examination DR SHAAN WITT . [facility] Start: 06-10-2022 End: 06-11-[address] SHAAN WITT . Facility: Start: 06-10-2022 End: 06-11-2022 Encounter for preprocedural cardiovascular examination DR SHAAN WITT . Facility: Start: 11-19-2021 End: 11-19-2021 Patient encounter procedure Aguilarcata ROACH [facility] Start: 10-18-2021 End: 10-19-[address] SHAAN WITT . Facility: Start: 10-14-[address] SHAAN WITT . Facili ty:[facility] Start: 10-10-2021 End: 10-10-2021 Patient encounter procedure Javier Gutierrez MD Work Phone: Gastroenterology Comment on above: Constipation, unspec ified constipation type (Primary Dx) Start: 09-17-2021 End: 09-18-2021 Emergency department patient visit Amberly Whitehead [facility] Start: 08-07-2021 End: 08-07-2021 Lab Drop off Fernanda MUNROE [facility] Start: 07-16-2021 End: 07-16-2021 Emergency department patient visit Lcuila Levin [facility] Start: 07-05-2017 Ambulatory MITCH ALLISON [facility] Procedures Date Procedure Procedure Detail Performing Clinician Start: 07-18-2019 Insertion of intraut erine contraceptive device Lucila Levin Ligation of fallopian tube N oah Maury Plan of Treatment Date Care Activity Detail Author Start: 12-04-2021 Influenza vaccination INFLUENZA (#1) [facility] Start: 11-04-2019 PAP TESTING PAP TESTING [facility] Start: 2017 Urine microalbumin profile DTAP,TDAP,TD (1 - Tdap) [facility] Start: 2016 CHLAMYDIA SCREENING (18-24) CHLAMYDIA SCREENING (18-24) [facility] Start: 2016 GC (GONORRHEA) SCREE ADRIANNA (18-24) GC (GONORRHEA) SCREENING (18-24) [facility] Start: 2016 HEPATITIS C SCREENING HEPATITIS C SC REENING [facility] Start: 2016 HIV SCREENING HIV SCREENING [facility] Start: 2012 PEDS TO ADULT TRANSI TION ANNUAL ASSESSMENT PEDS TO ADULT TRANSITION ANNUAL ASSESSMENT [facility] Start: 2010 Adult depression screening assessment DEPRESSION SCREENING [facility] Start: 2010 PEDS TO ADULT TRANSI TION INITIAL DISCUSSION PEDS TO ADULT TRANSITION INITIAL DISCUSSION [facility] Start: 2009 HPV VACCINE (1 - 2-d ose series) HPV VACCINE (1 - 2-dose series) [facility] Start: 2008 MENINGOCOCCAL B: Consider based on risk (1 of 2 - Risk Bexsero 2-dose series) MENINGOCOCCAL B: Consider based on risk (1 of 2 - Risk Bexsero 2-dose series) [facility] Start: 2004 PNEUMOCOCCAL (1 - PCV) PNEUMOCOCCAL (1 - PCV) [facility] Start: 05-06-1999 COVID-19 VACCINE (#1) COVID-19 VACCI NE (#1) [facility] End: 10-10-2022 ADULT [place] [facility] ADULT [place] [facility] Endoscopy Routine Constipation, unspecified constipation type 1 Occurrences starting 10/10/2021 until 10/10/2022 [facility] Work Phone: Comment on above: 1 Occurrences starti ng 10/10/2021 until 10[facility] Immunization Date Immunization Notes Care Provider Xochilt perdomo 06-19-2019 tetanus toxoid, unspecified formulation Lucila Arevalochidi [facility] Comment on above: Result Comment: Done at Health Department Result Comment: Done at Health Department 09-15-2017 tetanus toxoid, reduced diphtheria toxoid, and acellular pertussis vaccine, adsorbed Aguilar SALAM [facility] 01-27-2017 hepatitis A vaccine, unspecified formulation Aguilar SALAM [facility] 01-27-2017 HPV, unspecified formulation Aguilar SALAM [facility] 01-27-2017 meningococcal B vaccine, fully recombinant Aguilar SALAM [facility] 11-26-2016 HPV, unspecified formulation Aguilar SALAM [facility] 12-13-2015 meningococcal ACWY vaccine, unspecified formulation Aguilar SALAM [facility] 11-24-2010 tetanus toxoid, reduced diphtheria toxoid, and acellular pertussis vaccine, adsorbed Aguilar SALAM [facility] [facility]2004 DTaP, unspecified formulation [facility]ilar SALAM [facility] 01-09-2004 measles, mumps and rubella virus vaccine Aguilar SALAM [facility] 12-24-1999 DTaP, unspecified formulation Aguilar SALAM [facility] 12-24-1999 haemophilus influenz ae type b vaccine, PRP-OMP conjugate [employer] [facility] 12-24-1999 measles, mumps and rubella virus vaccine Aguilar SALAM [facility] 12-24-1999 poliovirus vaccine, unspecified formulation Aguilar SALAM [facility] 04-30-1999 DTaP, unspecified formulation Aguilar SALAM [facility] 04-30-1999 haemophilus influenz ae type b vaccine, PRP-OMP conjugate [employer] [facility] 04-30-1999 hepatitis B vaccine, pediatric or pediatric/adolescent dosage Aguilar SALAM [facility] 02-26-1999 DTaP, unspecified formulation Aguilar SALAM [facility] 02-26-1999 haemophilus influenz ae type b vaccine, PRP-OMP conjugate [employer]ilar [employer] [facility] 02-26-1999 poliovirus vaccine, unspecified formulation [facility] [employer] [facility] 1998 DTaP, unspecified formulation [employer] [facility] 1998 haemophilus influenz ae type b vaccine, PRP-OMP conjugate [facility] [employer] [facility] 1998 hepatitis B vaccine, pediatric or pediatric/adolescent dosage [facility] [employer] [facility] 1998 poliovirus vaccine, unspecified formulation [facility] [employer] [facility] 1998 hepatitis B vaccine, pediatric or pediatric/adolescent dosage [employer] [facility] NEGATED: Highlighted row has not occurred!03-21-2019 influenza virus vaccine, live, attenuated, for intranasal use Lucila Levin [facility] Payers Date Payer Category Payer Unknown [id number] 2017 Medicaid [place] [employer] [place] [employer] [id number] 2017-Present [phone] [address] [place] [address] Medicaid [id number] 1998 Unknown [id number] 1998 Unknown [id number] 1998 Unknown [id number] 1998 Unknown [id number] 1998 Unknown [id number] 1998 Unknown [id number] 1998 Unknown [id number] 1998 Unknown [id number] 1998 Unknown [id number] 1998 Unknown [id number] [id number] 1998 Unknown [id number] 1998 Unknown [id number] [id number] 1998 Unknown [id number] [id number] 1998 Unknown [id number] 1959 Self-pay 1961 Unknown [id number] Social History Date Type Detail Facility Tobacco [facility] Comment on above: current current Sex Assigned At Female [facility] Start: 10-10-2021 Tobacco smoking stat us NHIS Occasional tobacco smoker [facility] History of tobacco use Cigarette Smoker [facility] Start: 10-10-2021 Cigarettes smoked current (pack per day) - Reported 1 [facility] Start: 10-10-2021 Alcohol intake Ex-drinker (finding) [facility] Start: 10-10-2021 Tobacco Comment smokes 1 packs every 2 days [facility] Start: 2000 Sex Assigned At Not on file [facility] Start: 12-18-2022 Tobacco smoking status Light t obacco smoker (finding) [facility] Comment on above: current Tobacco smoking status No Smokin g Status Entered [facility] Functional Status Date Assessment Result Facility 06-29-2023 Functional Status N/A [facility] 02-16-2023 Functional Status N/A [facility] 09-17-2021 Functional Status N/A [facility] Clinical Notes 07-16-2021 to 06-30-2023 Note Date & Type Note Facility 06-30-2023 Hospital Discharg e instructions Patient Education 06/30/2023 00:02:57 Nausea and Vomiting, Adult, Uriv-ob-Wodw Nausea and Vomiting, Adult Nausea is feeling that you have an upset stomach and that you are about to vomit. Vomiting is when food in your stomach forcefully comes out of your mouth. Vomiting can make you feel weak. If you vomit, or if you are not able to drink enough fluids, you may not have enough water in your body (get dehydrated). If you do not have enough water in your body, you may: Feel tired. Feel thirsty. Have a dry mouth. Have cracked lips. Pee (urinate) less often. Older adults and people with other diseases or a weak body defense system (immune system) are at higher risk for not having enough water in the body. If you feel like you may vomit or you vomit, it is important to follow instructions from your doctor about how to take care of yourself. Follow these instructions at home: Watch your symptoms for any changes. Tell your doctor about them. Eating and drinking Take an ORS (oral rehydration solution). This is a drink that is sold at pharmacies and stores. Drink clear fluids in small amounts as you are able, such as: ?Water. ?Ice chips. ?Fruit juice that has water added (diluted fruit juice). ?Low-calorie sports drinks. Eat bland, ucob-tv-xkmykr foods in small amounts as you are able, such as: ?Bananas. ?Applesauce. ?Rice. ?Low-fat (lean) meats. ?Dane. ?Crackers. Avoid drinking fluids that have a lot of sugar or caffeine in them. This includes energy drinks, sports drinks, and soda. Avoid alcohol. Avoid spicy or fatty foods. General instructions Take rijg-zgl-vcrccfk and prescription medicines only as told by your doctor. Drink enough fluid to keep your pee (urine) pale yellow. Wash your hands often with soap and water for at least 20 seconds. If you cannot use soap and water, use hand donor services manager. Make sure that everyone in your home washes their hands well and often. Rest at home until you feel better. Watch your condition for any changes. Take slow and deep breaths when you feel like you may vomit. Keep all follow-up visits. Contact a doctor if: Your symptoms get worse. You have new symptoms. You have a fever. You cannot drink fluids without vomiting. You feel like you may vomit for more than 2 days. You feel light-headed or dizzy. You have a headache. You have muscle cramps. You have a rash. You have pain while peeing. Get help right away if: You have pain in your chest, neck, arm, or jaw. You feel very weak or you faint. You vomit again and again. You have vomit that is bright red or looks like black coffee grounds. You have bloody or black poop (stools) or poop that looks like tar. You have a very bad headache, a stiff neck, or both. You have very bad pain, cramping, or bloating in your belly (abdomen). You have trouble breathing. You are breathing very quickly. Your heart is beating very quickly. Your skin feels cold and clammy. You feel confused. You have signs of losing too much water in your body, such as: ?Dark pee, very little pee, or no pee. ?Cracked lips. ?Dry mouth. ?Sunken eyes. ?Sleepiness. ?Weakness. These symptoms may be an emergency. Get help right away. Call 911. Do not wait to see if the symptoms will go away. Do not drive yourself to the hospital. Summary Nausea is feeling that you have an upset stomach and that you are about to vomit. Vomiting is when food in your stomach comes out of your mouth. Follow instructions from your doctor about eating and drinking. Take kujz-ele-njgdqme and prescription medicines only as told by your doctor. Contact your doctor if your symptoms get worse or you have new symptoms. Keep all follow-up visits. This information is not intended to replace advice given to you by your health care provider. Make sure you discuss any questions you have with your health care provider. Document Revised: 09/26/2021 Document Reviewed: 09/26/2021 [employer] Patient Education 2022 [employer] 06/30/2023 00:02:57 General Headache Without Cause, Qckt-lx-Gkfh General Headache Without Cause A headache is pain or discomfort you feel around the head or neck area. There are many causes and types of headaches. In some cases, the cause may not be found. Follow these instructions at home: Watch your condition for any changes. Let your doctor know about them. Take these steps to help with your condition: Managing pain Take bcmz-xlk-faxgsea and prescription medicines only as told by your doctor. This includes medicines for pain that are taken by mouth or put on the skin. Lie down in a dark, quiet room when you have a headache. If told, put ice on your head and neck area: ?Put ice in a plastic bag. ?Place a towel between your skin and the bag. ?Leave the ice on for 20 minutes, 2 3 times per day. ?Take off the ice if your skin turns bright red. This is very important. If you cannot feel pain, heat, or cold, you have a greater risk of damage to the area. If told, put heat on the affected area. Use the heat source that your doctor recommends, such as a moist heat pack or a heating pad. ? Place a towel between your skin and the heat source. ?Leave the heat on for 20 30 minutes. ?Take off the heat if your skin turns bright red. This is very important. If you cannot feel pain, heat, or cold, you have a greater risk of getting burned. Keep lights dim if bright lights bother you or make your headaches worse. Eating and drinking Eat meals on a regular schedule. If you drink alcohol: ?Limit how much you have to: ?0 1 drink a day for women who are not . ? 0 2 drinks a day for men. ?Know how much alcohol is in a drink. In the [place] one drink equals one 12 oz bottle of beer (355 mL), one 5 oz glass of wine (148 mL), or one 1 oz glass of hard liquor (44 mL). Stop drinking caffeine, or drink less caffeine. General instructions Keep a journal to find out if certain things bring on headaches. For example, write down: ?What you eat and drink. ?How much sleep you get. ?Any change to your diet or medicines. Get a massage or try other ways to relax. Limit stress. Sit up straight. Do not tighten (tense) your muscles. Do not smoke or use any products that contain nicotine or tobacco. If you need help quitting, ask your doctor. Exercise regularly as told by your doctor. Get enough sleep. This often means 7 9 hours of sleep each night. Keep all follow-up visits. This is important. Contact a doctor if: Medicine does not help your symptoms. You have a headache that feels different than the other headaches. You feel like you may vomit (nauseous) or you vomit. You have a fever. Get help right away if: Your headache: ?Gets very bad quickly. ?Gets worse after a lot of physical activity. You have any of these symptoms: ?You continue to vomit. ?A stiff neck. ?Trouble seeing. ?Your eye or ear hurts. ?Trouble speaking. ?Weak muscles or you lose muscle control. ?You lose your balance or have trouble walking. You feel like you will pass out (faint) or you pass out. You are mixed up (confused). You have a seizure. These symptoms may be an emergency. Get help right away. Call your local emergency services (911 in the [place] Do not wait to see if the symptoms will go away. Do not drive yourself to the hospital. Summary A headache is pain or discomfort that is felt around the head or neck area. There are many causes and types of headaches. In some cases, the cause may not be found. Keep a journal to help find out what causes your headaches. Watch your condition for any changes. Let your doctor know about them. Contact a doctor if you have a headache that is different from usual, or if medicine does not help your headache. Get help right away if your headache gets very bad, you throw up, you have trouble seeing, you lose your balance, or you have a seizure. This information is not intended to replace advice given to you by your health care provider. Make sure you discuss any questions you have with your health care provider. Document Revised: 08/20/2021 Document Reviewed: 08/20/2021 [employer] Patient Education 2022 [employer] 06/30/2023 00:02:57 Abdominal Pain, Adult, Dhyo-ei-Plch Abdominal Pain, Adult Many things can cause belly (abdominal) pain. Most times, belly pain is not dangerous. Many cases of belly pain can be watched and treated at home. Sometimes, though, belly pain is serious. Your doctor will try to find the cause of your belly pain. Follow these instructions at home: Medicines Take cmsu-ybh-yyswxuj and prescription medicines only as told by your doctor. Do not take medicines that help you poop (laxatives) unless told by your doctor. General instructions Watch your belly pain for any changes. Drink enough fluid to keep your pee (urine) pale yellow. Keep all follow-up visits as told by your doctor. This is important. Contact a doctor if: Your belly pain changes or gets worse. You are not hungry, or you lose weight without trying. You are having trouble pooping (constipated) or have watery poop (diarrhea) for more than 2 3 days. You have pain when you pee or poop. Your belly pain wakes you up at night. Your pain gets worse with meals, after eating, or with certain foods. You are vomiting and cannot keep anything down. You have a fever. You have blood in your pee. Get help right away if: Your pain does not go away as soon as your doctor says it should. You cannot stop vomiting. Your pain is only in areas of your belly, such as the right side or the left lower part of the belly. You have bloody or black poop, or poop that looks like tar. You have very bad pain, cramping, or bloating in your belly. You have signs of not having enough fluid or water in your body (dehydration), such as: ?Dark pee, very little pee, or no pee. ?Cracked lips. ?Dry mouth. ?Sunken eyes. ?Sleepiness. ?Weakness. You have trouble breathing or chest pain. Summary Many cases of belly pain can be watched and treated at home. Watch your belly pain for any changes. Take bhmj-naf-jwtagxs and prescription medicines only as told by your doctor. Contact a doctor if your belly pain changes or gets worse. Get help right away if you have very bad pain, cramping, or bloating in your belly. This information is not intended to replace advice given to you by your health care provider. Make sure you discuss any questions you have with your health care provider. Document Revised: 07/31/2019 Document Reviewed: 07/31/2019 [employer] Patient Education 2022 [employer]. Follow Up Care 06/29/2023 19:12:13 With:Raquel Nolan Address: [place] [address]- Business (1) When:07/02/2023 Comments:You can take the medications as prescribed as needed for pain. Please follow-up with your primary care doctor in the next 2 to 3 days for further evaluation management. Please return to the ED for any new or worsening symptoms. [facility] 06-29-2023 Evaluation + Plan note Extrac brittani from: Title:ED Note Author:Amberly Whitehead DO Date :06/29/23 Abdominal pain, acute (R10.9 : Unspecified abdominal pain) Headache (R51.9: Headache, unspecified) N&V (nausea and vomiting) (R11.2: Nausea with vomiting, unspecified) Orders: dexamethasone, 10 mg = 2.5 mL, Injection, IV Push, Once, Stop date 06/29/23 21:00:00 EDT, STAT, Start date 06/29/23 21:00:00 EDT, 06/29/23 21:00:00 EDT diphenhydrAMINE, 25 mg = 0.5 mL, Injection, IV Push, Once, Stop date 06/29/23 21:00:00 EDT, STAT, Start date 06/29/23 21:00:00 EDT, 06/29/23 21:00:00 EDT ketorolac, 30 mg = 1 mL, Injection, IV Push, Once, Stop date 06/29/23 21:00:00 EDT, STAT, Start date 06/29/23 21:00:00 EDT, 06/29/23 21:00:00 EDT methocarbamol, 500 mg = 1 tab(s), Oral, TID, X 3 day(s), # 9 tab(s), Refills(s) 0, [facility], [facility], cm, 06/29/23 19:28:00 EDT, Height/Length Dosing, 82, kg, 06/29/23 19:28:00 EDT, Weight Dosing metoclopramide, 10 mg = 2 mL, Injection, IV Push, Once, Stop date 06/29/23 21:00:00 EDT, STAT, Start date 06/29/23 21:00:00 EDT, 06/29/23 21:00:00 EDT naproxen, 500 mg = 1 tab(s), Oral, BID, PRN for pain, # 20 tab(s), Refills(s) 0, [facility], [facility], cm, 06/29/23 19:28:00 EDT, Height/Length Dosing, 82, kg, 06/29/23 19:28:00 EDT, Weight Dosing ondansetron, 4 mg = 1 tab(s), Oral, q8hr, # 12 tab(s), Refills(s) 0, [facility], 175, cm, 06/29/23 19:28:00 EDT, Height/Length Dosing, 82, kg, 06/29/23 19:28:00 EDT, Weight Dosing Sodium Chloride 0.9% intravenous solution, 1,000 mL, Soln-IV, IV, Once, Stop date 06/29/23 21:00:00 EDT, STAT, Start date 06/29/23 21:00:00 EDT, Infuse over 61, minute(s) Basic Metabolic Panel Beta hCG Qual CBC w/ Auto Diff CT Abdomen/Pelvis w/ Contrast CT Head or Brain w/o Contrast eGFR Hepatic Function Panel Lipase Level UA with Cult Rflx [facility]11-14-2023 Evaluation + Plan noteExtracted from: Title:ED Note Author:Jacinto Mendiola DO Date :02/16/23 Diarrhea (R19.7: Diarrhea, u nspecified) N&V (nausea and vomiting) (R11.2: Nausea with vomiting, unspecified) Syncope (R55: Syncope and collapse) Orders: ondansetron, 4 mg = 2 mL, Injection, IV Push, Once, Stop date 02/16/23 5:14:00 EST, STAT, Start date 02/16/23 5:14:00 EST, 02/16/23 5:14:00 EST potassium bicarbonate, 25 mEq = 1 tab(s), Tab-Eff, Oral, Once, Stop date 02/16/23 6:40:00 EST, STAT, Start date 02/16/23 6:40:00 EST, 02/16/23 6:40:00 EST Sodium Chloride 0.9% intravenous solution, 1,000 mL, Soln-IV, IV, Once, Stop date 02/16/23 5:14:00 EST, STAT, Start date 02/16/23 5:14:00 EST, Infuse over 61, minute(s) Automated Diff Basic Metabolic Panel CBC w/ Auto Diff ECG 12 Lead Adult eGFR Extra Blue Tube Extra Lav Tube Extra SST Tube Hepatic Function Panel Lipase Level Saline Lock Insert Troponin 0 Hr. [facility]11-14-2023 Hospital Discharge instructions Patient Education 02/16/2023 07:09:21 Nausea and Vomiting, Adult Nausea and Vomiting, Adult Nausea is the feeling that you have an upset stomach or that you are about to vomit. As nausea getsworse, it can lead to vomiting. Vomiting is when stomach contents forcefully come out of your mouthas a result of nausea. Vomiting can make you feel weak and cause you to become dehydrated. Dehydration can make you feel tired and thirsty, cause you to have a dry mouth, and decrease how often you urinate. Older adults and people with other diseases or a weak disease-fighting system (immune system) are at higher risk for dehydration. It is important to treat your nausea and vomiting as told by your health care provider. Follow these instructions at home: Watch your symptoms for any changes. Tell your health care provider about them. Eating and drinking Take an oral rehydration solution (ORS). This is a drink that is sold at pharmacies and retail stores. Drink clear fluids slowly and in small amounts as you are able. Clear fluids include water, ice chips, low-calorie sports drinks, and fruit juice that has water added (diluted fruit juice). Eat bland, bnak-uw-bxqfcl foods in small amounts as you are able. These foods include bananas, applesauce, rice, lean meats, toast, and crackers. Avoid fluids that contain a lot of sugar or caffeine, such as energy drinks, sports drinks, and soda. Avoid alcohol. Avoid spicy or fatty foods. General instructions Take acyc-nex-uriiose and prescription medicines only as told by your health care provider. Drink enough fluid to keep your urine pale yellow. Wash your hands often using soap and water for at least 20 seconds. If soap and water are not available, use hand donor services manager. Make sure that everyone in your household washes their hands well and often. Rest at home while you recover. Watch your condition for any changes. Take slow and deep breaths when you feel nauseous. Keep all follow-up visits. This is important. Contact a health care provider if: Your symptoms get worse. You have new symptoms. You have a fever. You cannot drink fluids without vomiting. Your nausea does not go away after 2 days. You feel light-headed or dizzy. You have a headache. You have muscle cramps. You have a rash. You have pain while urinating. Get help right away if: You have pain in your chest, neck, arm, or jaw. You feel extremely weak or you faint. You have persistent vomiting. You have vomit that is bright red or looks like black coffee grounds. You have bloody or black stools (feces) or stools that look like tar. You have a severe headache, a stiff neck, or both. You have severe pain, cramping, or bloating in your abdomen. You have difficulty breathing, or you are breathing very quickly. Your heart is beating very quickly. Your skin feels cold and clammy. You feel confused. You have signs of dehydration, such as: ?Dark urine, very little urine, or no urine. ?Cracked lips. ?Dry mouth. ?Sunken eyes. ?Sleepiness. ?Weakness. These symptoms may be an emergency. Get help right away. Call 911. Do not wait to see if the symptoms will go away. Do not drive yourself to the hospital. Summary Nausea is the feeling that you have an upset stomach or that you are about to vomit. As nausea getsworse, it can lead to vomiting. Vomiting can make you feel weak and cause you to become dehydrated. Follow instructions from your health care provider about eating and drinking to prevent dehydration. Take ajgi-ral-azjcbhi and prescription medicines only as told by your health care provider. Contact your health care provider if your symptoms get worse, or you have new symptoms. Keep all follow-up visits. This is important. This information is not intended to replace advice given to you by your health care provider. Make sure you discuss any questions you have with your health care provider. Document Revised: 09/26/2021 Document Reviewed: 09/26/2021 [employer] Patient Education 2022 [employer] Follow Up Care 02/16/2023 05:06:19 With:Lilliam Gonzalez Address: [address] [place], [place] [id number] Business (1) When:Within 3 Day(s) [facility]03-22-2023 NoteOPERATIVE NOTE OPERATION DATE: 06/24/2022 PROCEDURE: Robotic assisted bilateral laparoscopic salpingectomy, fulguration of ovarian endometrial implant. PREOPERATIVE DIAGNOSIS: Desires permanent sterilization, multiparity. POSTOPERATIVE DIAGNOSIS: Desires permanent sterilization, multiparity. ANESTHESIA: General. SURGEON: Shaan Witt D.O. SCOWMAN: ASHLEY Dominguez URINE OUTPUT: Yellow and clear. BLOOD LOSS: 5 mL. SPECIMEN: Bilateral tubes. FINDINGS: Normal appearing ovaries, uterus and tubes. Please note, there was an area of endometriosis on the patient's right ovary which was fulgurated. PROCEDURE: The patient was taken back to the OR where she was prepped and draped in the normal sterile fashion after being placed in the dorsal lithotomy position, after being placed under general anesthesia without difficulty. A wet sponge stick was placed into the patient's vagina. Attention was then turned to the patient's abdomen, where a scalpel was used to make a small infraumbilical incision. The S retractors were then used to dissect the underlying layers until the fascia could be seen. The fascia was then grasped with Gabby clamps and tented up. A knife was then used to make a small incision to the fascia. The muscle was identified, at that time two sutures of #0 Vicryl on a GI needle was then used and placed through the fascia. The peritoneum was then identified and entered bluntly. The 10-4 Olivia was then placed into the patient's abdomen. This was confirmed with direct visualization of the bowel, using the laparoscope. The patient's abdomen was then insufflated using approximately 4 liters of CO2 gas. Survey of the patient's abdomen demonstrated normal appearing ovaries, uterus and tubes. A second and third lateral port, which was 7-8 in size and 5 mm in size, was then placed laterally after incision was made in the skin under direct visualization. The patient's tube on the patient's right side was identified. The tube was then tented up using a grasper. The LigaSure was used to transect and coagulate the mesosalpinx from the fimbriated end to the insertion at the uterus; the tube was amputated and removed in its entirety. Excellent hemostasis was noted. This was performed on the contralateral side as well. The lateral ports were then removed under direct visualization with excellent hemostasis. The abdomen was desufflated. All instruments were removed from the patient's abdomen. The fascia was closed using the #0 Vicryl on GI needle. The skin was closed using 4-0 Vicryl subcuticularly. All instruments were removed from the patient's vagina as well. The patient was taken out of the dorsal lithotomy position and placed in the supine position and taken to recovery in stable condition. Sponge, lap and needle counts were correct x2.[facility] [id number] NoteHNO ID: [id number] Author: Javier Gutierrez MD Service: ? Author Type: Physician Type: Progress Notes Filed: 10/10/2021 3:41 PM Note Text: NAME: Socorro Joseph CLINIC NO: [id number] REASON FOR VISIT Socorro Joseph is a 20 year old female who is scheduled for a consult at the request of Raquel Nolan Consultation requested by Dr. Ellis for an opinion regarding constipation. My final recommendations will be communicated back to the requesting physician by way of shared Medical record or letter to requesting physician via US mail. . Patient presents with: New Patient: inflammation in abdomon PRESENTING COMPLAINT 20 year old female with PMHx of tobacco use (active) and cervical dysplasia s/p LEEP procedure, who presents to IBD clinic to establish care for ?gastroenteritis. Accompanied by her boyfriend today. In terms of GI symptoms, at 8 years of age, after a meal had severe abd pain with nausea, vomiting, went to the ED, diagnosed with ovarian cyst (had menstrual cycles) and constipation, given abx for tt. Ms. Joseph reports being in usual state of health until 6 months ago. She developed lower abdominal burning pain intermittently, usually post-prandial, associated with nausea and multiple episodes of vomiting, but no diarrhea. She was in the ED 3 weeks ago with these symptoms, chart review from 09/17/2021 reveals a normal CBC/CMP/lipase, -ve FOBT, - UA, had a CT that's not on records, per pt diagnosed with gastroenteritis and ovarian cyst, prescribed abx, zofran and norco. Symptoms improved with this, however she has constant nausea all day, and abd pain only post-prandially, no emesis since ED visit. BMs: normal is 1 every 1-2 sometimes even every 3 weeks, has straining, feels constipated and has small BMs at a time, no blood. Took OTC Docusate and OTC laxative (Mg Citrate), did not help. Last normal BM over a year ago. No fevers or chills, gained weight recently. +ve cigarette smoking. No significant ETOH use. No known FHx of IBD, however mom has diarrhea and abd pain and is getting a colonoscopy soon. 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 No skin rash, no oral ulcers. No past surgical history on file. No past medical history on file. Current Outpatient Medications Medication Sig Dispense Refill - ondansetron (ZOFRAN) 4 mg tablet Take 4 mg by mouth every 8 hours as needed for nausea/vomiting. - amoxicillin (AMOXIL) 875 mg tablet Take 875 mg by mouth twice daily. - polyethylene glycol 3350 (MIRALAX) 17 gram/dose powder Take 17 g by mouth once daily. Dissolve dose in 4 - 8 ounces of liquid and take as directed. 507 g 5 No current facility-administered medications for this visit. Patient has no known allergies. Recent Labs: CBC: No results found for: WBC, HCT, MCV, PLT, NEUT, LYMPHP Hepatic Function Panel: No results found for: ALB, TBILI, CBILI, ALKPHOS, AST, ALT, TPROT Social History Tobacco Use - Smoking status: Current Some Day Smoker Packs/day: 1.00 Types: Cigarettes - Smokeless tobacco: Not on file - Tobacco comment: smokes 1 packs every 2 days Substance Use Topics - Alcohol use: Not Currently - Drug use: Not on file PERSONAL HABITS: Tobacco: Yes, Alcohol: No PAST MEDICAL HISTORY Colon polyps:No Colon cancer: No Other cancer:No Radiation / Chemotherapy:No Crohn's disease / Ulcerative colitis:No High cholesterol or triglycerides:No Ulcers: No Gallstones:No Hepatitis / jaundice: No Heart Disease: No Lung Disease:No Liver problems:No Thyroid disease: No Kidney stones:No Pancreatitis:No Diabetes:No Arthritis:No Rheumatic fever:No Gastrointestinal bleeding:No Depression or other mental illness:No ROS EyesNegative for vision changes, diplopia or epiphora. Ears, Mouth, nose, throat:No problems Cardiovascular: No Problems Respiratory: Negative for cough, wheezing and shortness of breath Gastrointestinal : see above Genitourinary: Negative Musuloskeletal: Normal Integumentary: no rashes, lesions, or jaundice Neurological: No history of neurologic problems Endocrine: Negative for cold or heat intolerance, polyuria, polydipsia and goiter. Psychiatric: Cooperative and agreeable Allergic/ Immunologic: Negative All others negative FAMILY HISTORY Has anyone in your family (grandparents, parents, brothers, sisters, aunts, or uncles) had: Liver problems: No Colitis: No Colon cancer:No No family history on file. PHYSICAL EXAMINATION General Appearance: alert, oriented x 3, pleasant and in no acute distress Eyes: No icterus or conjunctival pallor.. Oropharynx: Lips, tongue, and oral mucosa normal. There is no thrush or oral ulcers. Lungs: breath sounds clear to auscultation bilaterally Heart: regular rate and rhythm, no murmurs or gallops. Abdomen: Not distended. Normal bowel sounds. Soft, mild lower abd TTP. No masses or organomegaly. (more content not included)...[facility]07-08-2022 History of Present illness Narrative* Javier Gutierrez MD - 10/10/2021 2:00 PM EDT [facility] NO: [id number] REASON FOR VISIT Socorro Joseph is a 20 year old female who is scheduled for a consult at the request of Raquel Nolan Consultation requested by Dr. Ellis for an opinion regarding constipation. My final recommendations will be communicated back to the requesting physician by way of shared Medical record or letter to requesting physician via [place] mail. . Patient presents with: New Patient: inflammation in abdomon PRESENTING COMPLAINT 20 year old female with PMHx of tobacco use (active) and cervical dysplasia s/p LEEP procedure, whopresents to IBD clinic to establish care for ?gastroenteritis. Accompanied by her boyfriend today. In terms of GI symptoms, at 8 years of age, after a meal had severe abd pain with nausea, vomiting, went to the ED, diagnosed with ovarian cyst (had menstrual cycles) and constipation, given abx for tt. Ms. Joseph reports being in usual state of health until 6 months ago. She developed lower abdominalburning pain intermittently, usually post-prandial, associated with nausea and multiple episodes ofvomiting, but no diarrhea. She was in the ED 3 weeks ago with these symptoms, chart review from 09/17/2021 reveals a normal CBC/CMP/lipase, -ve FOBT, - UA, had a CT that's not on records, per pt diagnosed with gastroenteritis and ovarian cyst, prescribed abx, zofran and norco. Symptoms improved withthis, however she has constant nausea all day, and abd pain only post-prandially, no emesis since ED visit. BMs: normal is 1 every 1-2 sometimes even every 3 weeks, has straining, feels constipated and has small BMs at a time, no blood. Took OTC Docusate and OTC laxative (Mg Citrate), did not help. Last normal BM over a year ago. No fevers or chills, gained weight recently. +ve cigarette smoking. No significant ETOH use. No known FHx of IBD, however mom has diarrhea and abd pain and is getting a colonoscopy soon. 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 No skin rash, no oral ulcers. No past surgical history on file. No past medical history on file. Current Outpatient Medications Medication Sig Dispense Refill ondansetron (ZOFRAN) 4 mg tablet Take 4 mg by mouth every 8 hours as needed for nausea/vomiting. amoxicillin (AMOXIL) 875 mg tablet Take 875 mg by mouth twice daily. polyethylene glycol 3350 (MIRALAX) 17 gram/dose powder Take 17 g by mouth once daily. Dissolve dosein 4 - 8 ounces of liquid and take as directed. 507 g 5 No current facility-administered medications for this visit. Patient has no known allergies. Recent Labs: CBC: No results found for: WBC, HCT, MCV, PLT, NEUT, LYMPHP Hepatic Function Panel: No results found for: ALB, TBILI, CBILI, ALKPHOS, AST, ALT, TPROT Social History Tobacco Use Smoking status: Current Some Day Smoker Packs/day: 1.00 Types: Cigarettes Smokeless tobacco: Not on file Tobacco comment: smokes 1 packs every 2 days Substance Use Topics Alcohol use: Not Currently Drug use: Not on file PERSONAL HABITS: Tobacco: Yes, Alcohol: No PAST MEDICAL HISTORY Colon polyps:No Colon cancer: No Other cancer:No Radiation / Chemotherapy:No Crohn's disease / Ulcerative colitis:No High cholesterol or triglycerides:No Ulcers: No Gallstones:No Hepatitis / jaundice: No Heart Disease: No Lung Disease:No Liver problems:No Thyroid disease: No Kidney stones:No Pancreatitis:No Diabetes:No Arthritis:No Rheumatic fever:No Gastrointestinal bleeding:No Depression or other mental illness:No ROS EyesNegative for vision changes, diplopia or epiphora. Ears, Mouth, nose, throat:No problems Cardiovascular: No Problems Respiratory: Negative for cough, wheezing and shortness of breath Gastrointestinal : see above Genitourinary: Negative Musuloskeletal: Normal Integumentary: no rashes, lesions, or jaundice Neurological: No history of neurologic problems Endocrine: Negative for cold or heat intolerance, polyuria, polydipsia and goiter. Psychiatric: Cooperative and agreeable Allergic/ Immunologic: Negative All others negative FAMILY HISTORY Has anyone in your family (grandparents, parents, brothers, sisters, aunts, or uncles) had: Liver problems: No Colitis: No Colon cancer:No No family history on file. PHYSICAL EXAMINATION General Appearance: alert, oriented x 3, pleasant and in no acute distress Eyes: No icterus or conjunctival pallor.. Oropharynx: Lips, tongue, and oral mucosa normal. There is no thrush or oral ulcers. Lungs: breath sounds clear to auscultation bilaterally Heart: regular rate and rhythm, no murmurs or gallops. Abdomen: Not distended. Normal bowel sounds. Soft, mild lower abd TTP. No masses or organomegaly. Rectal: No external lesions, no masses Extremities: no cyanosis or edema. Skin: no rashes or lesions Lymph: No cervical, axillary, supraclavicular, or adenopathy. Assessment IMPRESSION #Nausea and abdominal pain Long-standing history of chronic constipation (1 small BM every 1-3 weeks), not responsive to OTC stool softener and Mg citrate, never tried Miralax. Had an ED visit as a result as a 8 year old, andregayly on 09/[address] Although CT incidentally showed ?gastroenteritis (report unavailable), her clinical picture is consistent with constipation induced nausea and abdominal pain. Suspect const ipation from pelvic floor dysfunction. PLAN - Prescribed Miralax once daily, advised to titrate as needed for desired effect - ARM ordered to rule out dyssynergic defecation in s/o severe constipation Ernay teri Kesha Nicholson MD October 10, 2021 11:07 AM Gastroenterology, IBD Fellow, PGY- VII Javier Gutierrez MD October 10, 2021 11:07 AM [facility] Discharge instructions Patient Education 09/18/2021 03:02:59 Ovarian Cyst, Ecdq-ry-Ztis Ovarian Cyst An ovarian cyst is a fluid-filled sac on an ovary. The ovaries are organs that make eggs in women. Most ovarian cysts go away on their own and are not cancerous (are benign). Some cysts need treatment. Follow these instructions at home: Take cpbq-hot-dtspujo and prescription medicines only as told by your doctor. Do not drive or use heavy machinery while taking prescription pain medicine. Get pelvic exams and Pap tests as often as told by your doctor. Return to your normal activities as told by your doctor. Ask your doctor what activities are safe for you. Do not use any products that contain nicotine or tobacco, such as cigarettes and e-cigarettes. If you need help quitting, ask your doctor. Keep all follow-up visits as told by your doctor. This is important. Contact a doctor if: Your periods are: ?Late. ?Irregular. ?Painful. Your periods stop. You have pelvic pain that does not go away. You have pressure on your bladder. You have trouble making your bladder empty when you pee (urinate). You have pain during sex. You have any of the following in your belly (abdomen): ?A feeling of fullness. ?Pressure. ?Discomfort. ?Pain that does not go away. ?Swelling. You feel sick most of the time. You have trouble pooping (have constipation). You are not as hungry as usual (you lose your appetite). You get very bad acne. You start to have more hair on your body and face. You are gaining weight or losing weight without changing your exercise and eating habits. You think you may be . Get help right away if: You have belly pain that is very bad or gets worse. You cannot eat or drink without throwing up (vomiting). You suddenly get a fever. Your period is a lot heavier than usual. This information is not intended to replace advice given to you by your health care provider. Make sure you discuss any questions you have with your health care provider. Document Released: 09/07/2008 Document Revised: 03/04/2018 Document Reviewed: 08/23/2016 [employer] Patient Education 2020 [employer]. 09/18/2021 03:02:59 Colitis Colitis Colitis is inflammation of the colon. Colitis may last a short time (be acute), or it may last a long time (become chronic). What are the causes? This condition may be caused by: Viruses. Bacteria. Reaction to medicine. Certain autoimmune diseases such as Crohn's disease or ulcerative colitis. Radiation treatment. Decreased blood flow to the bowel (ischemia). What are the signs or symptoms? Symptoms of this condition include: Watery diarrhea. Passing bloody or tarry stool. Pain. Fever. Vomiting. Tiredness (fatigue). Weight loss. Bloating. Abdominal pain. Having fewer bowel movements than usual. A strong and sudden urge to have a bowel movement. Feeling like the bowel is not empty after a bowel movement. How is this diagnosed? This condition is diagnosed with a stool test or a blood test. You may also have other tests, such as: X-rays. CT scan. Colonoscopy. Endoscopy. Biopsy. How is this treated? Treatment for this condition depends on the cause. The condition may be treated by: Resting the bowel. This involves not eating or drinking for a period of time. Fluids that are given through an IV. Medicine for pain and diarrhea. Antibiotic medicines. Cortisone medicines. Surgery. Follow these instructions at home: Eating and drinking Follow instructions from your health care provider about eating or drinking restrictions. Drink enough fluid to keep your urine pale yellow. Work with a dietitian to determine which foods cause your condition to flare up. Avoid foods that cause flare-ups. Eat a well-balanced diet. General instructions If you were prescribed an antibiotic medicine, take it as told by your health care provider. Do notstop taking the antibiotic even if you start to feel better. Take jhls-kzv-jpwodho and prescription medicines only as told by your health care provider. Keep all follow-up visits as told by your health care provider. This is important. Contact a health care provider if: Your symptoms do not go away. You develop new symptoms. Get help right away if you: Have a fever that does not go away with treatment. Develop chills. Have extreme weakness, fainting, or dehydration. Have repeated vomiting. Develop severe pain in your abdomen. Pass bloody or tarry stool. Summary Colitis is inflammation of the colon. Colitis may last a short time (be acute), or it may last a long time (become chronic). Treatment for this condition depends on the cause and may include resting the bowel, taking medicines, or having surgery. If you were prescribed an antibiotic medicine, take it as told by your health care provider. Do notstop taking the antibiotic even if you start to feel better. Get help right away if you develop severe pain in your abdomen. Keep all follow-up visits as told by your health care provider. This is important. This information is not intended to replace advice given to you by your health care provider. Make sure you discuss any questions you have with your health care provider. Document Released: 04/29/2005 Document Revised: 09/22/2018 Document Reviewed: 09/22/2018 [employer] Patient Education 2020 [employer]. Follow Up Care 09/17/2021 22:00:56 With:Jeff ROACH Address: [address] [place] [address] Business (1) When:09/21/2021 Comments:Take The antibiotics as prescribed until you have completed the course. You can use the Zofran every 6 hours as needed for nausea and vomiting. You can use the [place] every 6 hours as needed for pain or the Bentyl every 8 hours. Please follow-up with your primary care doctor in addition to GI for further evaluation and management of the inflammation of your colon. Please return to the ED for any new or worsening symptoms. With:Raquel Nolan Address: [place] [phone]- Business (1) When:Within 3 Day(s) [facility]06-15-2022 Evaluation + Plan noteExtracted from: Title:ED Note Author:Amberly Whitehead DO Date :09/17/21 Acute colitis (K52.9: Noninf ective gastroenteritis and colitis, unspecified) Cyst, ovarian (N83.209: Unspecified ovarian cyst, unspecified side) Orders: acetaminophen-hydrocodone, 1 tab(s), Oral, q6hr for pain, 10 tab(s), Refill(s) 0 amoxicillin-clavulanate, 1 tab(s), Tab, Oral, Once, Stop date 09/18/21 1:27:00 EDT, STAT, Start date 09/18/21 1:27:00 EDT amoxicillin-clavulanate, 1 tab(s), Oral, q12hr for 10 day(s), 20 tab(s), Refill(s) 0 dicyclomine, 10 mg = 1 cap(s), Oral, QID, X 7 day(s), # 14 cap(s), Refills(s) 0 ketorolac, 30 mg = 1 mL, Injection, IV Push, Once, Stop date 09/17/21 22:25:00 EDT, STAT, Start date 09/17/21 22:25:00 EDT, 09/17/21 22:25:00 EDT morphine, 2 mg = 1 mL, Injection, IV Push, Once, Stop date 09/18/21 1:37:00 EDT, STAT, Start date 09/18/21 1:37:00 EDT, 09/18/21 1:37:00 EDT ondansetron, 4 mg = 2 mL, Injection, IV Push, Once, Stop date 09/17/21 22:25:00 EDT, STAT, Start date 09/17/21 22:25:00 EDT, 09/17/21 22:25:00 EDT ondansetron, 4 mg = 2 mL, Injection, IV Push, Once, Stop date 09/18/21 1:27:00 EDT, STAT, Start date 09/18/21 1:27:00 EDT, 09/18/21 1:27:00 EDT ondansetron, 4 mg = 1 tab(s), Oral, q8hr, PRN Nausea/Vomiting, # 12 tab(s), Refills(s) 0 Sodium Chloride 0.9% intravenous solution 1,000 mL, 1,000 mL, IV, 983.61 mL/hr, for 30 day(s), Stop date 10/17/21 22:25:00 EDT, STAT, Start date 09/17/21 22:26:00 EDT, 61 minute(s), Total volume (mL): 1,000, 74 kg, 1.9, m2 Sodium Chloride 0.9% intravenous solution 1,000 mL, 1,000 mL, IV, 983.61 mL/hr, for 30 day(s), Stop date 10/18/21 1:47:00 EDT, STAT, Start date 09/18/21 1:48:00 EDT, 61 minute(s), Total volume (mL): 1,000, 74 kg, 1.9, m2 Automated Diff Basic Metabolic Panel Beta hCG Qual CBC w/ Auto Diff CT Abdomen/Pelvis w/ Contrast eGFR Hepatic Function Panel Lipase Level Stool Occult Blood UA With Cult Reflex Future Appointments Appointment Date:11/19/2021 08:00:00 AM Scheduled Provider:Jeff ROACH MD Location:[facility] App[facility] Type:[facility]04-13-2022 Hospital Discharge instructions Patient Education 07/16/2021 16:41:56 Abnormal Uterine Bleeding Abnormal Uterine Bleeding Abnormal uterine bleeding is unusual bleeding from the uterus. It includes: Bleeding or spotting between periods. Bleeding after sex. Bleeding that is heavier than normal. Periods that last longer than usual. Bleeding after menopause. Abnormal uterine bleeding can affect women at various stages in life, including teenagers, women intheir reproductive years, women, and women who have reached menopause. Common causes of abnormal uterine bleeding include: . Growths of tissue (polyps). A noncancerous tumor in the uterus (fibroid). Infection. Cancer. Hormonal imbalances. Any type of abnormal bleeding should be evaluated by a health care provider. Many cases are minor and simple to treat, while others are more serious. Treatment will depend on the cause of the bleeding. Follow these instructions at home: Monitor your condition for any changes. Do not use tampons, douche, or have sex if told by your health care provider. Change your pads often. Get regular exams that include pelvic exams and cervical cancer screening. Keep all follow-up visits as told by your health care provider. This is important. Contact a health care provider if: Your bleeding lasts for more than one week. You feel dizzy at times. You feel nauseous or you vomit. Get help right away if: You pass out. Your bleeding soaks through a pad every hour. You have abdominal pain. You have a fever. You become sweaty or weak. You pass large blood clots from your vagina. Summary Abnormal uterine bleeding is unusual bleeding from the uterus. Any type of abnormal bleeding should be evaluated by a health care provider. Many cases are minor and simple to treat, while others are more serious. Treatment will depend on the cause of the bleeding. This information is not intended to replace advice given to you by your health care provider. Make sure you discuss any questions you have with your health care provider. Document Released: 03/22/2006 Document Revised: 06/29/2018 Document Reviewed: 04/23/2017 [employer] Patient Education [employer]. Follow Up Care 07/16/2021 14:22:36 With:Sujit Mujica Address: [address] [address] Business (1) When:07/18/2021 16:29:07 Comments:Make sure to follow-up with Dr. Mujica as discussed. Return to the emergency room if your bleeding gets worse, you develop dizziness your abdominal pain gets worse or any new symptoms. With:Lilliam Gonzalez Address: [address] [place] [phone]- Business (1) When:Within 3 Day(s) [facility]04-13-2022 Evaluation + Plan noteExtracted from: Title:ED Note Author:Ollie Sneed, Astrit H Da te:07/16/21 1. Abnormal vaginal bleeding (N93.9: Abnormal uterine and vaginal bleeding, unspecified) Orders: ketorolac, 30 mg = 1 mL, Injection, IV Push, Once, Stop date 07/16/21 14:47:00 EDT, STAT, Start date 07/16/21 14:47:00 EDT, 07/16/21 14:47:00 EDT Sodium Chloride 0.9% intravenous solution, Soln-IV, Misc, Once, Stop date 07/16/21 14:58:44 EDT, Physician Stop, 07/16/21 14:58:44 EDT ABO/Rh Automated Diff Basic Metabolic Panel CBC w/ Auto Diff eGFR Orthostatic Vitals Signs PT & PTT Saline Lock Insert U Beta Hcg Qual UA With Cult Reflex [facility] Diagnosis Constipation, unspecified constipation type- Primary documented in this encounter [facility] Narrative No data available for this section [facility] No data available for this section [facility] No data available for this section [facility] Outpatient Procedure (Routine) - Authorized Specialty Diagnoses / Procedures Referred By Keo mcneal Referred To Contact [facility] Diagnoses Constipation, unspecified constipation type Procedures [facility] ANORECTAL MANOMETRY ANORECTAL MANOMETRY Javier Gutierrez MD [address] [place] [address] [facility] [address] [place] [address] Referral ID Status Reason Start Date Expiration Date Visits Requested Visits Authorized [id number] Authorized Auto-Generat ed Referral 10/10/2021 10/10/2022 1 1 [facility] Summary Purpose Family History No Family History Records FoundNo Family History Records FoundNo Family History Records Found No data available for this section No data available for this section No Family History Records FoundNo Family History Records Found Advance Directives No Advanced Directives Records FoundNo Advanced Directives Records FoundNo Advanced Directives Records FoundNo Advanced Directives Records FoundNo Advanced Directives Records Found Additional Source Comments INFORMATION SOURCE (unrecogn ized section and content) DATE CREATED AUTHOR 09/23/2017 [facility] DATE CREATED AUTHOR AUTHOR'S ORGANIZ ATION 11/07/2021 [facility] DATE CREATED AUTHOR AUTHOR'S ORGANIZ ATION 07/10/2022 [facility] DATE CREATED AUTHOR AUTHOR'S ORGANIZ ATION 07/01/2023 [place] [facility] DATE CREATED AUTHOR AUTHOR'S ORGANIZ ATION 09/22/2023 [facility] EPIC Care Team (unrecognized sect ion and content) Personnel Name: Raquel Nolan MD Address: [address] Name: Fernanda HARMON Address: [facility] [address] [place] [address] [place] [address] Personnel Name: Raquel Nolan MD Address: [address] Name: Fernanda HARMON Address: [facility] [address] Personnel Name: Raquel Nolan MD Address: Address: [address] Name: Fernanda HARMON Address: Address: [facility] [address] Personnel Name: Lilliam Gonzalez MD Address: Address: [address] Name: Fernanda HARMON Address: Address: [facility] [address] Personnel Name: Raquel Nolan MD Address: Address: [address] Name: Fernanda HARMON Address: Address: [facility] [address] [place] [address] [place] [address] Source Comments (unrecognize d section and content) In the event this informatio n is protected by the Federal Confidentiality of Alcohol and Drug Abuse Patient Records regulations: The Federal rules restrict any use of the information to criminally investigate or prosecute any alcohol or drug abuse patient.[facility] Reason for Visit (unrecogniz ed section and content) Reason Comments New Patient inflammation in abdo mon FOR RECORDS PERTAINING TO PATIENTS WHO ARE OR HAVE BEEN ENROLLED IN A CHEMICAL DEPENDENCY/SUBSTANCEABUSE PROGRAM, SOME INFORMATION MAY BE OMITTED. This clinical summary was aggregated from multiple sources. Caution should be exercised in using it in the provision of clinical care. This summary normalizes information from multiple sources, and as a consequence, information in this document may materially change the coding, format and clinical context of patient data. In addition, data may be omitted in some cases. CLINICAL DECISIONS SHOULD BE BASED ON THE PRIMARY CLINICAL RECORDS. [facility]. provides no warranty or guarantee of the accuracy or completeness of information in this document.
[2023-12-17 08:13] LABS: Age Gdln ACOG Testing Note (.); IGP, rfx Aptima HPV ASCU Note (.)
== END 2023-12-13 20:30 | disposition home or self-care (01) ==
LOC: LAB 20:29
PROVIDERS: Visit Provider Physician Assistant
DX: Z01.419 Encounter for gynecological examination (general) (routine) without abnormal findings (principal)
CPT/HCPCS: 88175

== ENCOUNTER 2024-12-18 20:20 | Outpatient (REF) | payer BC, SELFPAY ==
--- OUTSIDE RECORDS SUMMARY | 2024-12-18 20:26 | XMS_ITS | CCD ---
Author Organization [facility] CliniSyin Care Team Providers Care Stapler Coil Unit Name Role Phone GIGI MITCH ALLISON Unavailable UnaCHANDANA Dey Unavailable Unavailable NO PRIMARY CARE, Unavailable Unavailable Lilliam Gonzalez Primary Care Physician Fernanda MUNROE Unavailable Raquel Nolan Primary Care Physician Unavailable Primary Care Provider Unavailhoney WITT ., DR TITUS Admitting Unavailable ALMA NOLAN Primary Care Unavailable JAVON ., DR TITUS Attending Unavailable JAVON ., DR TITUS Consulting Unavailable RAD LICEA Consulting Unavailable STEW II, KAYA Consulting Unavailable JAVON ., DR TITUS Attending Unavailable JAVON ., DR TITUS Admitting Unavailable JAVON ., DR TITUS Admitting Unavailable JAVON ., DR TITUS Attending Unavailable JAVON ., DR TITUS Consulting Unavailable ZIEBER, DR EVELIA Gutierrez Consulting Unavailable JAVON ., DR TITUS Admitting Unavailable SPRAY, DR BAO Painter Consulting Unavailable ALMA NOLAN Primary Care Unavailable JAVON ., DR TITUS Attending Unavailable JAVON ., DR TITUS Consulting Unavailable DO Jacinto Mendiola Attending Unavailable Amberly Whitehead Attending Unavailable Tony Aguirre Attending Unavailable Tony Aguirre Admitting Unavailable Tony Aguirre Attending Unavailable NIA COLBERT Attending Unavailable NIA COLBERT Admitting Unavailable Raquel Nolan MD Primary Care Provider Raquel Nolan MD Unavailable NIA COLBERT Admitting Unavailable NIA COLBERT Attending Unavailable Roque Harris Attending Unavailable Ann Warner Attending Unavailable Ann Warner Admitting Unavailable Ann Warner Attending Unavailable Narinder Kumar. Attending Unavailable Roque Harris Attending Unavailable Ann Warner Attending Unavailable Elver Gonzales Attending Unavailable Narinder Kumar. Attending Unavailable Raquel Nolan MD Unavailable Elver Gonzales Attending Unavailable Raquel Nolan MD Primary Care Provider Raqeul Nolan MD Unavailable [phone] RAQUEL NOLAN Attending Unavailable RAQUEL NOLAN Attending Unavailable NIA COLBERT Attending Unavailable NIA COLBERT Attending Unavailable RAQUEL NOLAN Attending Unavailable CHERISE JAIMES Attending Unavail le Medications Current Medications Medication Drug Class(es) Dates Sig (Normalized) Sig (Original) acetaminophen 325 mg / HYDROcodone bitartrate 5 mg oral tablet (2 sources) Opioid Agonist Start: 09-18-2021 [place] 325 mg-5 mg oral tablet 1 tab(s), Oral, q6hr for pain, 10 tab(s), Refill(s) 0 Start Date: 09/18/21 Status: Ordered [id number] 200 actuat albuterol 0.09 mg/actuat metered dose inhaler (10 sources) beta2-Adrenergic Agonist Start: 04-27-2023 End: 03-22-2024 take 2 puff(s) by inhalation every four hours for wheezing albuterol HFA 90 mcg/act inhaler Indications: Acute cough Inhale 2 puffs every 4 (four) hours if needed for wheezing or shortness of breath 18 g 04/27/2023 03/22/2024 Discontinued (Therapy completed) cephalexin 500 mg oral capsule (4 sources) Cephalosporin Antibacterial Start: 06-16-2020 take 1 capsule by mouth every twelve hours Keflex 500 mg Cap 500 mg = 1 cap(s), Oral, q12hr, # 14 cap(s), Refills(s) 0, Pharmacy: [facility], 175, cm, 06/16/20 13:40:00 EDT, Height/Length Dosing, 70.8, kg, 06/16/20 13:40:00 EDT, Weight Dosing Start Date: 06/16/20 Status: Ordered dextromethorphan hydrobromide 3 mg/ml / promethazine hydrochloride 1.25 mg/ml oral solution (1 source) Phenothiazine, Uncompetitive N-jdjllg-R-aspartate Receptor Antagonist, Sigma-1 Agonist Start: 03-20-2024 End: 03-25-2024 take 5 mL by mouth every six hours for cough dextromethorphan- promethazine 15 mg-6.25 mg/5 mL Oral Syrup 5 mL 5 mL, Oral, q6hr for cough for 5 day(s), 200 mL, Refill(s) 0, [facility], 175.6, cm, 03/20/24 7:23:00 EST, Height/Length Dosing, 80, kg, 03/20/24 7:23:00 EST, Weight Dosing Start Date: 03/20/24 Stop Date: 03/25/24 Status: Ordered dicyclomine hydrochloride 10 mg oral capsule (2 sources) Anticholinergic Start: 04-16-2024 take 1 capsule by mouth four times daily as needed for nausea Bentyl 10 mg Cap 10 mg = 1 cap(s), Oral, QID, PRN Nausea/Vomiting, For abdominal cramping, # 16 cap(s), Refills(s) 0, Pharmacy: [facility] 1986, 177, cm, 04/15/24 21:15:00 EST, Height/Length Dosing, 83.8, kg, 04/15/24 21:15:00 EST, Weight Dosing Start Date: 04/16/24 Status: Ordered Start: 09-18-2021 End: 09-25-2021 take 1 capsule by mouth four times daily Bentyl 10 mg Cap 10 mg = 1 cap(s), Oral, QID, X 7 day(s), # 14 cap(s), Refills(s) 0 Start Date: 09/18/21 Stop Date: 09/25/21 Status: Ordered famotidine 40 mg oral tablet (10 sources) Histamine-2 Receptor Antagonist Start: 06-15-2024 End: 06-15-2025 take 1 tablet by mouth at bedtime famotidine (Pepcid) 40 MG tablet Indications: Gastroesophageal reflux disease, unspecified whether esophagitis present Take 1 tablet (40 mg) by mouth at bedtime 90 tablet 3 06/15/2024 06/15/2025 Active ibuprofen 200 mg oral tablet (10 sources) Nonsteroidal Anti-inflammatory Drug End: 03-22-2024 ibuprofen 200 MG tablet Take by mouth. 03/22/2024 Discontinued (Therapy completed) levonorgestrel 0.825304 mg/hr intrauterine system (4 sources) Progestin, Progestin-contain ing Intrauterine Device Start: 08-29-2019 Liletta 52 mg [...] day(s), # 9 tab(s), Refills(s) 0, Pharmacy: [facility], 175, cm, 06/29/23 19:28:00 EDT, Height/Length Dosing, 82, kg, 06/29/23 19:28:00 EDT, Weight Dosing Start Date: 06/29/23 Stop Date: 07/02/23 Status: Ordered naproxen 500 mg oral tablet (2 sources) Nonsteroidal Anti-inflammatory Drug Start: 06-29-2023 take 1 tablet by mouth twice daily as needed for pain Naprosyn 500 mg Tab 500 mg = 1 tab(s), Oral, BID, PRN for pain, # 20 tab(s), Refills(s) 0, Pharmacy: [facility], 175, cm, 06/29/23 19:28:00 EDT, Height/Length Dosing, 82, kg, 06/29/23 19:28:00 EDT, Weight Dosing Start Date: 06/29/23 Status: Ordered ondansetron 4 mg oral tablet (20 sources) Serotonin-3 Receptor Antagonist Start: 12-06-2024 take 1 tablet by mouth every eight hours as needed for nausea and vomiting and nausea and nausea ondansetron (Zofran) 4 MG tablet Indications: Nausea Take 1 tablet (4 mg) by mouth every 8 (eight) hours if needed for nausea or vomiting 12 tablet 12/06/2024 Active Start: 07-26-2024 End: 12-06-2024 take 2 tablets by mouth every eight hours as needed for nausea and vomiting and nausea and nausea ondansetron (Zofran) 4 MG tablet Indications: Nausea Take 2 tablets (8 mg) by mouth every 8 (eight) hours if needed for nausea or vomiting 20 tablet 09/26/2024 12/06/2024 Discontinued (Reorder) Start: 04-12-2024 End: 04-14-2024 take 1 tablet by mouth every eight hours ondansetron 4 mg Dis Tab 4 mg = 1 tab(s), Oral, q8hr, allow tablet to dissolve on tongue, X 2 day(s), # 6 tab(s), Refills(s) 0, Pharmacy: [facility], 175.6, cm, 04/12/24 13:49:00 EST, Height/Length Dosing, 83.8, kg, 04/12/24 13:49:00 EST, Weight Dosing Start Date: 04/12/24 Stop Date: 04/14/24 Status: Ordered Start: 12-13-2023 End: 01-12-2024 take 1 tablet by mouth every six hours as needed for nausea and vomiting and nausea and nausea ondansetron ODT (Zofran-ODT) 4 MG disintegrating tablet Indications: Nausea Take 1 tablet (4 mg) by mouth every 6 (six) hours if needed for nausea or vomiting 30 tablet 2 12/13/2023 01/12/2024 Active Start: 09-21-2023 End: 03-22-2024 take 2 tablets by mouth every eight hours as needed for nausea and vomiting and nausea and nausea ondansetron (Zofran) 4 MG tablet Indications: Nausea Take 2 tablets (8 mg) by mouth every 8 (eight) hours if needed for nausea or vomiting 20 tablet 03/22/2024 Active Start: 09-18-2021 take 1 tablet by sloan th every eight hours as needed for nausea Zofran 4 mg Tab 4 mg = 1 tab(s), Oral, q8hr, PRN Nausea/Vomiting, # 12 tab(s), Refills(s) 0 Start Date: 09/18/21 Status: Ordered Comment on above: Take 4 mg by mouth e very 8 hours as needed for nausea/vomiting. oseltamivir 75 mg oral capsule (2 sources) Neuraminidase Inhibitor Start: 2024 End: 2024 take 1 capsule by mouth twice daily Tamiflu 75 mg Cap 75 mg = 1 cap(s), Oral, BID, X 5 day(s), # 10 cap(s), Refills(s) 0, Pharmacy: [facility], 175.6, cm, 04/12/24 13:49:00 EST, Height/Length Dosing, 83.8, kg, 04/12/24 13:49:00 EST, Weight Dosing Start Date: 04/12/24 Stop Date: 04/17/24 Status: Ordered pantoprazole 40 mg delayed release oral tablet (10 sources) Proton Pump Inhibitor Start: 2024 End: 2025 take 1 tablet by mouth once daily pantoprazole (ProtoNix) 40 MG EC tablet Indications: Gastroesophageal reflux disease, unspecified whether esophagitis present Take 1 tablet (40 mg) by mouth Daily Do not crush, chew, or split. 90 tablet 3 06/15/2024 06/15/2025 Active phenazopyridine hydrochloride 100 mg oral tablet (2 sources) Start: 2024 End: 2024 take 1 tablet by mouth three times daily as needed for muscle spasms phenazopyridine (Pyridium) 100 MG tablet Indications: UTI symptoms Take 1 tablet (100 mg) by mouth 3 (three) times a day as needed for bladder spasms for up to 3 days 10 tablet 12/18/2024 12/21/2024 Active predniSONE 20 mg oral tablet (2 sources) Start: 2023 End: 2023 take 2 tablets by mouth once daily predniSONE (Deltasone) 20 MG tablet Indications: Acute cough Take 2 tablets (40 mg) by mouth Daily for 5 days 10 tablet 03/22/2024 03/27/2024 Active Zofran ODT 4 mg Tab-Dis (6 sources) Start: 2024 take 1 tablet by mouth every eight hours as needed for nausea Zofran ODT 4 mg Tab-Dis 4 mg = 1 tab(s), Oral, q8hr, PRN Nausea/Vomiting, # 12 tab(s), Refills(s) 0, Pharmacy: [facility] 1986, 177, cm, 04/15/24 21:15:00 EST, Height/Length Dosing, 83.8, kg, 04/15/24 21:15:00 EST, Weight Dosing Start Date: 04/16/24 Status: Ordered Start: 06-29-2023 take 1 tablet by sloan th every eight hours Zofran ODT 4 mg Tab-Dis 4 mg = 1 tab(s), Oral, q8hr, # 12 tab(s), Refills(s) 0, Pharmacy: [facility] 1986, 175, cm, 06/29/23 19:28:00 EDT, Height/Length Dosing, 82, kg, 06/29/23 19:28:00 EDT, Weight Dosing Start Date: 06/29/23 Status: Ordered Start: 02-16-2023 take 1 tablet by sloan th every eight hours as needed for nausea Zofran ODT 4 mg Tab-Dis 4 mg = 1 tab(s), Oral, q8hr, PRN Nausea/Vomiting, # 20 tab(s), Refills(s) 0, Pharmacy: [facility] 1986, 175.3, cm, 02/16/23 5:18:00 EST, [...] Take 875 mg by mouth twice daily. amoxicillin 875 mg / clavulanate 125 mg oral tablet (7 sources) Penicillin-class Antibacterial Start: 03-20-2024 End: 06-15-2024 take 1 tablet by mouth in the morning amoxicillin-clavul anate (Augmentin) 875-125 MG tablet Take 875 mg by mouth in the morning and 875 mg before bedtime. 03/20/2024 06/15/2024 Discontinued Start: 09-18-2021 End: 09-28-2021 Augmentin 875 mg-125 mg Tab 1 tab(s), Oral, q12hr for 10 day(s), 20 tab(s), Refill(s) 0 Start Date: 09/18/21 Stop Date: 09/28/21 Status: Ordered azithromycin 250 mg oral tablet (5 sources) Macrolide Antimicrobial Start: 03-22-2024 End: 06-15-2024 azithromycin (Zithromax) 250 MG tablet Indications: Acute cough Take 2 tabs PO x 1 day then 1 tab PO daily x 4 days 6 tablet 03/22/2024 06/15/2024 Discontinued metFORMIN hydrochloride 500 mg oral tablet (12 sources) Biguanide Start: 12-13-2023 End: 12-12-2024 take 1 tablet by mouth at bedtime metFORMIN (Glucophage) 500 MG tablet Indications: PCOS (polycystic ovarian syndrome) Take 1 tablet (500 mg) by mouth at bedtime 30 tablet 11 12/13/2023 06/15/2024 Discontinued polyethylene glycol 3350 85764 mg powder for oral solution (2 sources) [...] Classification Problem Date Documented Da te Episodic/Chronic Diseases of white blood cells (2 sources) Leukocytosis; Translations: [Elevated white blood cell count, unspecified] 06-15-2024 Chronic Endometriosis (1 source) Endometriosis; Translations: [ENDOMETRIOSIS RT OVARY UNSPEC DEPTH] Onset: 3 Esophageal disorders (4 sources) Gastroesophageal reflux disease; Translations: [Gastro-esophageal reflux disease without esophagitis] 06-15-2024 Chronic Genitourinary symptoms and ill-defined conditions (2 sources) Urinary symptoms ; Translations: [Unspecified symptoms and signs involving the genitourinary system] 12-18-2024 Episodic Headache; including migraine (4 sources) Headache; Translations: [Headache, unspecified] Onset: 4 Episodic Immunizations and screening for infectious disease (2 sources) Exposure to sexually transmissible disorder; Translations: [Contact with and (suspected) exposure to infections with a predominantly sexual mode of transmission] 12-18-2024 Episodic Influenza (1 source) Influenza; Translations: [Influenza due to other identified influenza virus with other respiratory manifestations] Onset: 5 Episodic Menstrual disorders (4 sources) Irregular menstruation, unspecified; Translations: [IRREGULAR MENSTRUATION UNSPECIFIED] Onset: 2 Chronic Mood disorders (20 sources) Depressive disorder; Translations: [Depression] Onset: 3 12-28-2018 Chronic Other ear and sense organ disorders (2 sources) Ear sensations - finding; Translations: [Other specified disorders of ear, bilateral] 03-22-2024 Episodic Other endocrine disorders (2 sources) Polycystic ovary syndrome; Translations: [Polycystic ovarian syndrome] 12-13-2023 Chronic Other female genital disorders (2 sources) Abnormal uterine bleeding; Translations: [Abnormal uterine and vaginal bleeding, unspecified] Onset: 2 Chronic Other female genital disorders (1 source) Other specified noninflammatory disorders of vagina; Translations: [OTH SPEC NONINFLAMMATORY D/O VAGINA] Onset: 3 Episodic Other female genital disorders (2 sources) Vaginal discharge; Translations: [Other specified noninflammatory disorders of vagina] 12-18-2024 Episodic Other gastrointestinal disorders (2 sources) Diarrhea; Translations: [Diarrhea, unspecified] Onset: 2 Episodic Other gastrointestinal disorders (2 sources) Acute diarrhea; Translations: [Diarrhea, unspecified] 12-06-2024 Episodic Other lower respiratory disease (1 source) Cough; Translations: [Cough, unspecified] Onset: 4 Episodic Other lower respiratory disease (2 sources) Cough; Translations: [Acute cough] 03-22-2024 Episodic Other nervous system disorders (2 sources) Pins and needles; Translations: [Paresthesia of skin] 09-26-2024 Episodic Other nutritional; endocrine; and metabolic disorders (7 sources) Overweight in adulthood with body mass index of 25 or more but less than 30; Translations: [Body mass index (BMI) 27.0-27.9, adult] Onset: 5 03-22-2024 Episodic Other nutritional; endocrine; and metabolic disorders (6 sources) Overweight; Translations: [Overweight] 03-22-2024 Episodic Other and delivery including normal (11 sources) Normal 05-03-2019 Episodic Other upper respiratory disease (3 sources) Nasal congestion; Translations: [Nasal congestion] Onset: 5 03-22-2024 Episodic Ovarian cyst (2 sources) Cyst of ovary; Translations: [Unspecified ovarian cyst, unspecified side] Onset: 2 Episodic Residual codes; unclassified (1 source) Chill; Translations: [Chills (without fever)] Onset: 5 Episodic Substance-related disorders (20 sources) Smoker; Translations: [Nicotine dependence, cigarettes, uncomplicated] Onset: 3 Resolved: 7 11-21-2018 Chronic Comment on above: Added secondary to d ocumentation in Social History. Added secondary to d ocumentation in Social History. Syncope (1 source) Syncope and collapse; Translations: [Syncope and collapse] Onset: 3 Episodic Past or Other Problems Problem Classification Problem Date Documented Da te Episodic/Chronic Abdominal pain (20 sources) Abdominal pain; Translations: [Unspecified abdominal pain] Onset: 11-17-2021 Episodic Complication of device; implant or graft (20 sources) Mechanical complication of intrauterine contraceptive device; Translations: [Other mechanical complication of intrauterine contraceptive device, initial encounter] Onset: 09-24-2022 09-24-2022 Episodic Contraceptive and procreative management (20 sources) Encounter for sterilization; Translations: [Sterilization requested] Onset: 06-24-2022 Resolved: 06-30-2023 Episodic Nausea and vomiting (20 sources) Vomiting; Translations: [Vomiting, unspecified] Onset: 11-17-2021 Episodic Noninfectious gastroenteritis (20 sources) Noninfectious enteritis; Translations: [Noninfective gastroenteritis and colitis, unspecified] Onset: 09-18-2021 Episodic Other female genital disorders (20 sources) Cervical intraepithelial neoplasia grade 2; Translations: [Moderate cervical dysplasia] Onset: 09-24-2022 09-24-2022 Episodic Other female genital disorders (20 sources) Vaginal odor; Translations: [Other specified noninflammatory disorders of vagina] Onset: 09-24-2022 09-24-2022 Episodic Other gastrointestinal disorders (20 sources) Constipation; Translations: [Constipation, unspecified] Onset: 09-24-2022 Episodic Other upper respiratory infections (20 sources) Pharyngitis; Translations: [Acute pharyngitis, unspecified] Onset: 08-27-2023 08-27-2023 Episodic Otitis media and related conditions (20 sources) Acute suppurative otitis media without spontaneous rupture of ear drum; Translations: [Acute suppurative otitis media without spontaneous rupture of ear drum, left ear] Onset: 08-27-2023 08-27-2023 Episodic Residual codes; unclassified (20 sources) History of endometrial ablation; Translations: [Other specified postprocedural states] Onset: 03-05-2023 03-05-2023 Episodic Unclassified (20 sources) Onset: 09-11-2017 Resolved: 07-18-2019 11-04-2017 Results Test Name Value Interpretation Reference Range Facility Urinalysis macro (dipstick) panel (U)on 12-18-2024 Bilirubin, UA Negative Negative - 4(70) +++ mg/dL [facility] Blood, UA Negative Negative - 50 Silas/mcL [facility] Clarity, UA Clear [facility] Color, UA Yellow [facility] Glucose, UA Negative Negative - 2000(110) ++++ mg/dL [facility] Interpretation and review of laboratory results Normal [facility] Ketones, UA Negative Negative - 160(16) ++++ mg/dL [facility] Leukocytes, UA Negative Negative - 500+++ Estephania/mcL [facility] Nitrite, UA Negative Negative - Positive [facility] pH, UA 6 5 - 9 [facility] Protein, UA Negative Negative - 2000(20) ++++ mg/dL [facility] Spec Grav, UA 1.01 1 - 1.03 [facility] Urobilinogen, UA 1.0 0.2 - 12 mg/dL [facility] ED Note-Physicianon 06-19-19 ED Note-Physician ED Note-Physician Basic Information Time Seen: Heri Lazcano PA-C 06/11/2024 09:02 Chief Complaint pt presents with vomitting and diahrea since 3AM this morning History of Present Illness 23-year-old female comes to the ED for evaluation of nausea vomiting and diarrhea. She developed symptoms overnight. She tried taking a Zofran without any relief. She has some mild associate abdominal cramping. No concerns of or previous tubal ligation. No fever or chills. No recent travel, sick contacts or bad food. Review of Systems A 10 point review of systems is negative except as noted above. Medical and Surgical History: Reviewed and noted Social history: Lives at home Tobacco: Denies Physical Exam Vitals & Measurements T: 36.6 ???C(Oral) HR: 79(Peripheral) RR: 16 BP: 108/73 SpO2: 100% HT: 177 cm WT: 80.7 kg BMI: 25.76 Nurses notes and vital signs reviewed and patient is not hypoxic. General: Well-awake and alert, sitting in exam chair, nontoxic Skin: Warm, dry. Head: Atraumatic. Neck: No JVD. Eye: Normal conjunctiva. Ears, Nose, Mouth, and Throat: Sinus congestion, no difficulty with speaking or swallowing Cardiovascular: Not tachycardic Chest wall: Respiratory: Respirations are nonlabored. Back: Normal range of motion. Musculoskeletal: Normal ROM with no gross deformity. Gastrointestinal: Abdomen is soft throughout. Relatively nontender. No guarding rebound or rigidity. No distention Urological: Neurological: Awake and alert. No focal deficits. Follows commands. Psychiatric: Cooperative. Medical Decision Making Laboratory studies are reviewed and noted. The patient was treated here with Phenergan and is feeling improved. She is been able to take oral fluids. Her abdomen is benign. Suspect viral gastroenteritis and we have seen a significant number of cases throughout the community in recent days. She is discharged home with Phenergan and given PCP follow-up. Patient was encouraged to return to the ED if symptoms worsen or change. Assessment/Plan Diarrhea, unspecified (R19.7: Diarrhea, unspecified) Nausea vomiting and diarrhea (R11.2: Nausea with vomiting, unspecified) Orders: ondansetron, 4 mg = 1 tab(s), Tab-Dis, Oral, Once, Stop date 06/11/24 10:33:00 EDT, STAT, Start date 06/11/24 10:33:00 EDT, 06/11/24 10:33:00 EDT promethazine, 25 mg = 1 mL, Injection, IntraMuscular, Once, Stop date 06/11/24 9:06:00 EDT, STAT, Start date 06/11/24 9:06:00 EDT promethazine, 25 mg = 1 tab(s), Oral, TID, # 15 tab(s), Refills(s) 0, Pharmacy: [facility] 1986, 177, cm, 06/11/24 9:05:00 EDT, Height/Length Dosing, 80.7, kg, 06/11/24 9:05:00 EDT, Weight Dosing Basic Metabolic Panel CBC w/ Auto Diff eGFR Hepatic Function Panel Lipase Level Disposition Plan Patient Discharge Condition Disposition: Discharged home Condition: Improved and stable Counseled: Patient and/or family were counseled to workup, results, treatment plan and follow-up recommendations Discharge Prescription List Prescriptions promethazine 25 mg Tab, 25 mg= 1 tab(s), Oral, TID Follow-up With When Contact Information Raquel Nolan In 3 days 06/14/[address] [place] [address]- Business (1) Additional Instructions: Patient Education Viral Gastroenteritis, Adult Attestation I performed a substantive part of the MDM during the patient???s E/M visit. I personally made or approved the documented management plan and acknowledge its risk of complications. (Independent Interpretation) My (EKG/X-Ray/US/CT) interpretation as above. (Discussion) Management/test interpretation discussed with APC. This report was transcribed using voice recognition software. Every effort was made to ensure accuracy, however, inadvertently computerized account manager b2b mistakes may be present. Appropriate healthcare PPE was used in evaluating this patient. Problem List/Past Medical History Ongoing Depression Smoker Historical Smoker Supervision of normal in second trimester Procedure/Surgical History Insertion of IUD (07/18/2019), Tubal ligation. Medications Inpatient Phenergan 25 mg/mL Injection, 25 mg= 1 mL, IntraMuscular, Once Home Bentyl 10 mg Cap, 10 mg= 1 cap(s), Oral, QID, PRN Zofran ODT 4 mg Tab-Dis, 4 mg= 1 tab(s), Oral, q8hr, PRN Allergies No Known Allergies Social History Alcohol - Denies Alcohol Use, 06/29/2023 Liquor, 1-2 times per month, 06/16/2020 DENIES, [...] Yes. Agency(s)/Others notified: No. Family/Friends available for suppo (more content not included)... Normal [facility] Comment on above: Result Comment: Elec tronically Signed By: Heri Lazcano PA-C\.br\Date and Time Signed: 06/11/24 11:45 EDT\.br\Electronically Co-Signed By: Elver Gonzales MD\.br\Date and Time Co-Signed: 06/18/24 00:53 EDT CBC (INCLUDES DIFF/PLT)on Basophils (Bld) [#/Vol] 0.043 10*3/uL Normal 0-200 [facility] Comment on above: Performed By: #### [id number] #### [facility] [place] [address] Swing Driver: Nima Dong MD Basophils/100 WBC (Bld) 0.5 % Normal [facility] Comment on above: Performed By: #### 6 [id number] #### [facility] [place] [address] Swing Driver: Nima Dong MD Eosinophils (Bld) [#/Vol] 0.068 10*3/uL Normal 15-500 [facility] Comment on above: Performed By: #### 6 399 #### [facility] [place] [address] Swing Driver: Nima Dong MD Eosinophils/100 WBC (Bld) 0.8 % Normal [facility] Comment on above: Performed By: #### 6 399 #### [facility] [place] [address] Swing Driver: Nima Dong MD Erythrocyte distribution width (RBC) [Ratio] 12.1 % Normal 11.0-15.0 [facility] Comment on above: Performed By: #### 6 399 #### [facility] [place] [address] Swing Driver: Nima Dong MD Hematocrit (Bld) [Volume fraction] 41.2 % Normal 35.0-45.0 [facility] Comment on above: Performed By: #### 6 399 #### [facility] [place] [address] Swing Driver: Nima Dong MD Hemoglobin (Bld) [Mass/Vol] 13.9 g/dL Normal 11.7-15.5 [facility] Comment on above: Performed By: #### 6 399 #### [facility] [place] [address] Swing Driver: Nima Dong MD Lymphocytes (Bld) [#/Vol] 2.788 10*3/uL Normal 850-3900 [facility] Comment on above: Performed By: #### 6 399 #### [facility] [place] [address] Swing Driver: Nima Dong MD Lymphocytes/100 WBC (Bld) 32.8 % Normal [facility] Comment on above: Performed By: #### 6 399 #### [facility] [place] [address] Swing Driver: Nima Dong MD MCH (RBC) [Entitic mass] 31.5 pg Normal 27.0-33.0 [facility] Comment on above: Performed By: #### 6 399 #### [facility] [place] [address] Swing Driver: Nima Dong MD MCHC (RBC) [Mass/Vol] 33.7 g/dL Normal 32.0-36.[address] [facility] Comment on above: Result Comment: For adults, a slight decrease in the calculated MCHC value (in the range of 30 to 32 g/dL) is most likely not clinically significant; however, it should be interpreted with caution in correlation with other red cell parameters and the patient's clinical condition. Performed By: #### 6 399 #### [facility] [place] [address] Swing Driver: Nima Dong MD MCV (RBC) [Entitic vol] 93.4 fL Normal 80.0-100.0 [facility] Comment on above: Performed By: #### 6 399 #### [facility] of [address], [address] [place] [address] Swing Driver: Nima Dong MD Monocytes (Bld) [#/Vol] 0.502 10*3/uL Normal 200-950 [facility] Comment on above: Performed By: #### 6 399 #### [facility] [place] [address] Swing Driver: Nima Dong MD Monocytes/100 WBC (Bld) 5.9 % Normal [facility] Comment on above: Performed By: #### 6 399 #### [facility] [place] [address] Swing Driver: Nima Dong MD Neutrophils (Bld) [#/Vol] 5.1 10*3/uL Normal 6755-8901 [facility] Comment on above: Performed By: #### 6 399 #### [facility] [place] [address] Swing Driver: Nima Dong MD Neutrophils/100 WBC (Bld) 60 % Normal [facility] Comment on above: Performed By: #### 6 399 #### [facility] [place] [address] Swing Driver: Nima Dong MD Platelet mean volume (Bld) [Entitic vol] 10.8 fL Normal 7.5-12.5 [facility] Comment on above: Performed By: #### 6 399 #### [facility] [place] [address] Swing Driver: Nima Dong MD Platelets (Bld) [#/Vol] 280 10*3/uL Normal 140-400 [facility] Comment on above: Performed By: #### 6 399 #### [facility] of [address], [address] [place] [address] Swing Driver: Nima Dong MD RBC (Bld) [#/Vol] 4.41 10*6/uL Normal 3.80-5.10 [facility] Comment on above: Performed By: #### 6 399 #### [facility] of [place] [address], [address] [place] [address] Swing Driver: Nima Dong MD WBC (Bld) [#/Vol] 8.5 10*3/uL Normal 3.8-10.8 [facility] Comment on above: Performed By: #### 6 399 #### [facility] [address], [address] [place] [address] Swing Driver: Nima Dong [facility] Anion gap [Moles/Vol] 12 mmol/L Normal 6-16 [facility] Comment on above: Performed By: #### 2 [id number] #### [facility] [address] [place] [address] Calcium [Mass/Vol] 10.0 mg/dL Normal 8.9-11.1 [facility] Comment on above: Performed By: #### 2 [id number] #### [facility] [address] [place] [address] Chloride [Moles/Vol] 105 mmol/L Normal 101-111 [facility] Comment on above: Performed By: #### 2 [id number] #### [facility] [address] [place] [address] CO2 [Moles/Vol] 25 mmol/L Normal 21-31 [facility] Comment on above: Performed By: #### 2 [id number] #### [facility] [address] [place] [address] Creatinine [Mass/Vol] 0.6 mg/dL Normal 0.5-1.3 [facility] Comment on above: Performed By: #### 2 [id number] #### [facility] [address] [place] [address] Glucose [Mass/Vol] 117 mg/dL Normal 55-199 [facility] Comment on above: Performed By: #### 2 [id number] #### [facility] [address] [place] [address] Potassium [Moles/Vol] 4.2 mmol/L Normal 3.5-5.3 [facility] Comment on above: Performed By: #### 2 [id number] #### [facility] [address] [place] [address] Sodium [Moles/Vol] 138 mmol/L Normal 135-145 [facility] Comment on above: Performed By: #### 2 [id number] #### [facility] [address] [place] [address] Urea nitrogen [Mass/Vol] 15 mg/dL Normal 5-21 [facility] Comment on above: Performed By: #### 2 468153 #### [facility] [address] [place] [address] Urea nitrogen/Creatinine [Mass ratio] 25 No Units High 10-20 [facility] Comment on above: Performed By: #### 2 [id number] #### [facility] [address] [place] [address] CBC w/ Auto Diffon 5 Basophils/100 WBC (Bld) 0.1 % Normal 0.0-2.0 [facility] Comment on above: Performed By: #### 2 [id number] #### [facility] [address] [place] [address] Basophils/Leukocytes Auto (Bld) [Pure # fraction] 0.0 E9/L Normal 0.0-0.2 [facility] Comment on above: Performed By: #### 2 309507 #### [facility] [address] [place] [address] Eosinophils (Bld) [#/Vol] 0.1 E9/L Normal 0.0-0.5 [facility] Comment on above: Performed By: #### 2 830014 #### [facility] [address] [place] [address] Eosinophils/100 WBC (Bld) 0.4 % Normal 0.0-8.0 [facility] Comment on above: Performed By: #### 2 398322 #### [facility] [address] [place] [address] Erythrocyte distribution width (RBC) [Ratio] 13.5 % Normal 10.9-14.2 [facility] Comment on above: Performed By: #### 2 749281 #### [facility] [address] [place] [address] Hematocrit (Bld) [Volume fraction] 44.1 % Normal 34.0-46.0 [facility] Comment on above: Performed By: #### 2 736555 #### [facility] [address] [place] [address] Hemoglobin (Bld) [Mass/Vol] 15.1 g/dL Normal 12.0-16.0 [facility] Comment on above: Performed By: #### 2 151251 #### [facility] [address] [place] [address] Lymphocytes (Bld) [#/Vol] 1.1 E9/L Normal 1.0-4.0 [facility] Comment on above: Performed By: #### 2 768615 #### [facility] [address] [place] [address] Lymphocytes/100 WBC (Bld) 7.4 % Low 14.0-50.0 [facility] Comment on above: Performed By: #### 2 745420 #### [facility] [address] [place] [address] MCH (RBC) [Entitic mass] 31.8 pg Normal 27.0-34.0 [facility] Comment on above: Performed By: #### 2 [id number] #### [facility] [address] [place] [address] MCHC (RBC) [Mass/Vol] 34.2 g/dL Normal 31.4-36.0 [facility] Comment on above: Performed By: #### 2 242981 #### [facility] [address] [place] [address] MCV (RBC) [Entitic vol] 93.0 fL Normal 80.0-100.0 [facility] Comment on above: Performed By: #### 2 397299 #### [facility] [address] [place] [address] Monocytes (Bld) [#/Vol] 0.4 E9/L Normal 0.2-1.0 [facility] Comment on above: Performed By: #### 2 269565 #### [facility] [address] [place] [address] Neutrophils (Bld) [#/Vol] 13.1 E9/L High 2.0-7.5 [facility] Comment on above: Performed By: #### 2 [id number] #### [facility] [address] [place] [address] Neutrophils/100 WBC (Bld) 89.6 % High 36.0-75.0 [facility] Comment on above: Performed By: #### 2 712449 #### [facility] [address] [place] [address] Platelet mean volume (Bld) [Entitic vol] 8.6 fL Normal 6.4-10.8 [facility] Comment on above: Performed By: #### 2 960312 #### [facility] [address] [place] [address] Platelets (Bld) [#/Vol] 269.0 E9/L Normal 150.0-500.0 [facility] Comment on above: Performed By: #### 2 790107 #### [facility] [address] [place] [address] RBC (Bld) [#/Vol] 4.7 E12/L Normal 4.3-5.9 [facility] Comment on above: Performed By: #### 2 [id number] #### [facility] [address] [place] [address] WBC corrected for nucl RBC Auto (Bld) [#/Vol] 14.7 E9/L High 4.0-11.0 [facility] Comment on above: Performed By: #### 2 [id number] #### [facility] [address] [place] [address] ED Clinical Summaryon 2024 ED Clinical Summary ED Clinical Summary [address] [address] ED Clinical Summary Person Information Name: SOCORRO JOSEPH [facility] Age: 23 Years : 2000 Sex: Female Language: Nepalese PCP: Raquel Nolan MD Marital Status: Single Visit Id: Visit Reason: Diarrhea; Vomiting; DIZZY, VOMTING Speciality: Acuity: 3 Enc Type: Emergency Med Service: Emergency Arrival: 06/11/2024 08:54:52 Discharge: 06/11/2024 11:55:32 LOS: 000 03:01 Checkin: 06/11/2024 08:54:52 Checkout: 06/11/2024 11:55:32 Dispo Type: Home (Routine DC) EVENTS: Event Name Event Status Request Date/Time Start Date/Time Complete Date/Time Arrive Complete 06/11/2024 08:54:52 06/11/2024 08:54:52 06/11/2024 08:54:52 Document Home Meds Request 06/11/2024 08:54:52 Triage Complete 06/11/2024 08:54:52 06/11/2024 09:05:36 06/11/2024 09:05:36 Bed Assign Complete 06/11/2024 09:01:25 06/11/2024 09:01:25 06/11/2024 09:01:25 Dr Exam Complete 06/11/2024 09:01:25 06/11/2024 09:02:58 06/11/2024 09:02:58 RN Exam Complete 06/11/2024 09:01:25 06/11/2024 09:08:48 06/11/2024 09:08:48 Registration Complete 06/11/2024 09:02:58 06/11/2024 09:05:43 06/11/2024 09:05:43 Reg Complete Request 06/11/2024 09:05:43 Reg Bed Request Complete 06/11/2024 09:05:43 06/11/2024 09:05:43 06/11/2024 09:05:43 Meds Admin Complete 06/11/2024 09:06:22 06/11/2024 09:18:21 Pending Labs Complete 06/11/2024 09:06:22 06/11/2024 09:56:35 Lab Complete 06/11/2024 09:06:22 06/11/2024 09:56:35 Pending Labs Complete 06/11/2024 09:31:05 06/11/2024 09:31:05 06/11/2024 09:56:35 Lab Complete 06/11/2024 09:31:05 06/11/2024 09:31:05 06/11/2024 09:56:35 Meds Admin Complete 06/11/2024 10:34:06 06/11/2024 10:42:16 Dr Exam Complete 06/11/2024 11:43:32 06/11/2024 11:43:32 06/11/2024 11:43:32 Registration Request 06/11/2024 11:43:32 Discharge Complete 06/11/2024 11:44:35 06/11/2024 11:55:54 06/11/2024 11:55:54 Transfer Complete 06/11/2024 11:55:54 06/11/2024 11:55:54 06/11/2024 11:55:54 ADDRESS: [address] [place] [id number] PHYS DOC NOTES: MEDICAL INFORMATION: Prescriptions Given: New Medications [facility], [address] [place], [place] [id number], [phone] promethazine (promethazine 25 mg Tab) 1 Tablets By Mouth 3 times a day. Refills: 0. Medications to Continue with No Changes Other Medications dicyclomine (Bentyl 10 mg Cap) 1 Capsules By Mouth 4 times a day as needed Nausea/Vomiting. For abdominal cramping. Refills: 0. ondansetron (Zofran ODT 4 mg Tab-Dis) 1 Tablets By Mouth every 8 hours as needed Nausea/Vomiting. Refills: 0. PATIENT EDUCATION INFORMATION: Instructions: Viral Gastroenteritis, Adult Follow up: With: Address: When: Raquel Nolan [address] [place] [address] Business (1) In 3 days 06/14/2024 DIAGNOSIS: Diarrhea, unspecified; Nausea vomiting and diarrhea Normal [facility] ED Patient Summaryon 025 ED Patient Summary ED Patient Summary [address] [address] Patient Discharge Instructions Person Information Name: ERIKSOCORRO Kumar Age: 23 Years Arrival Date: 06/11/2024 08:54:52 Discharge Diagnosis: Diarrhea, unspecified; Nausea vomiting and diarrhea Primary Care Physician: Raquel Nolan MD Provider Information Primary Provider: Elver Gonzales MD Advanced Promotional Marketing Agent:Heri Lazcano PA-C The exam and treatment you received in the Emergency Department were for an urgent problem and are not intended as complete care. It is important that you follow up with a doctor, nurse practitioner, or physician???s tmd teacher assistant for ongoing care. If your symptoms become worse or you do not improve as expected and you are unable to reach your usual health care provider, you should return to the Emergency Department. We are available 24 hours a day. SOCORRO JOSEPH has been given the following list of patient education materials, prescriptions and follow-up instructions: Follow-up Instructions: With: Address: When: [address] [address] [employer] (1) In 3 days 06/14/2024 In the event that this physician does not participate in your insurance network, please consult with your insurance company to find a nearby participating provider. Patient Education Materials: Viral Gastroenteritis, Adult A MESSAGE TO ALL PATIENTS REGARDING OPIOIDS PRESCRIPTION OPIOIDS: WHAT YOU NEED TO KNOW Prescription opioids can be used to help relieve hmujgjfz-ri-codfzd pain and are often prescribed following a [...] as well, even when taken as directed: ??? Tolerance???meaning you might need to take more of the medication for the same pain relief ??? Physical dependence???meaning you have symptoms of withdrawal when a medication is stopped ??? Increased sensitivity to pain ??? Constipation ??? Nausea, vomiting, and dry mouth ??? Sleepiness and dizziness ??? Confusion ??? Depression ??? Low levels of testosterone that can result in lower sex drive, energy, and strength ??? Itching and sweating RISKS ARE GREATER WITH: ??? History of drug misuse, substance use disorder, or overdose ??? Mental health conditions (such as depression or anxiety) ??? Sleep apnea ??? Older age (65 years and older) ??? Avoid alcohol while taking prescription opioids. Also, unless specifically advised by your health care provider, medications to avoid include: ??? Benzodiazepines (such as Xanax or Valium) ??? Muscle relaxants (such as Soma or Flexeril) ??? Hypnotics (such as Ambien or Lunesta) ??? Other prescription opioids KNOW YOUR OPTIONS Talk to your health care provider about ways to manage your pain that don???t involve prescription opioids. Some of these options may actually work better and have fewer risks and side effects. Options may include: ??? Pain relievers such as acetaminophen, ibuprofen, and naproxen ??? Some medication that are also used for depression or seizures ??? Physical therapy and exercise ??? Cognitive behavioral therapy, a psychological, goal-directed approach, in which patients learn how to modify physical, behavioral, and emotional triggers of pain and stress. IF YOU ARE PRESCRIBED OPIOIDS FOR PAIN: ??? Never take opioids in greater amounts or more often than prescribed. ??? Follow up with your primary health care provider. o Work together to create a plan on how to manage your pain. o Talk about ways to help manage your pain that don???t involve prescription opioids. o Talk about any and all concerns and side effects. ??? Help prevent misuse and abuse o Never sell or share prescription opioids. o Never use another person???s prescription opioids. ??? Store prescription opioids in a secure place and out of reach of others (this may include visitors, children, friends, and family). ??? Safely dispose of unused prescription opioids: Find your community drug take-back program or your pharmacy mail-back program, or flush them down the toilet, following guidance from the Food and Drug Administration (www.fda.gov/Drugs/Re sourcesForYou). ??? Visit www.cdc.gov/drugoverd ose to learn about the risks of opioids abuse and overdose. ??? If you believe you may be struggling with addiction, tell (more content not included)... Normal [facility] Hep Func Panelon 06-11-2024 Albumin [Mass/Vol] 4.9 g/dL Normal 3.3-5.0 [facility] Comment on above: Performed By: #### 2 [id number] #### [facility] [address] [place] [address] Albumin/Globulin (S) [Mass conc ratio] 1.8 Normal 1.1-2.2 [facility] Comment on above: Performed By: #### 2 [id number] #### [facility] [address] [place] [address] ALP [Catalytic activity/Vol] 91 Int._Unit/L Normal 21-98 [facility] Comment on above: Performed By: #### 2 [id number] #### [facility] [address] [place] [address] ALT No additional P-5'-P [Catalytic activity/Vol] 14 Int._Unit/L Normal 6-46 [facility] Comment on above: Performed By: #### 2 [id number] #### [facility] [address] [place] [address] AST [Catalytic activity/Vol] 14 Int._Unit/L Normal 5-43 [facility] Comment on above: Performed By: #### 2 [id number] #### [facility] [address] [place] [address] Bilirubin [Mass/Vol] 1.0 mg/dL Normal 0.0-1.1 [facility] Comment on above: Performed By: #### 2 [id number] #### [facility] [address] [place] [address] Bilirubin.direct [Mass/Vol] 0.1 mg/dL Normal 0.0-0.4 [facility] Comment on above: Performed By: #### 2 [id number] #### [facility] [address] [place] [address] Bilirubin.indirect [Mass or moles/Vol] 0.9 mg/dL Normal 0.1-0.9 [facility] Comment on above: Performed By: #### 2 [id number] #### [facility] [address] [place] [address] Globulin (S) [Mass/Vol] 2.7 g/dL Normal 1.4-4.0 [facility] Comment on above: Performed By: #### 2 230578 #### [facility] [address] [place] [address] Protein [Mass/Vol] 7.6 g/dL Normal 6.0-7.8 [facility] Comment on above: Performed By: #### 2 [id number] #### [facility] [address] [place] [address] Lipase Levelon 06-11-2024 Lipase [Catalytic activity/Vol] 6 U/L Low 13-58 [facility] Comment on above: Performed By: #### 2 650214 #### [facility] [address] [place] [address] eGFRon 06-11-2024 eGFR 127 mL/min/1.73 m2 Normal >=59 [facility] Comment on above: Performed By: #### 1 [id number] #### [facility] [address] [place] [address] CT Abdomen/Pelvis w/ Contras ton 04-16-2024 CT Abdomen/Pelvis w/ Contrast Exam Date/Time: 04/15/2024 23:15 EST Reason for Exam: Pain Report IMPRESSION: FINDINGS SUGGESTIVE OF ENTEROCOLITIS, NOTED. NO ACUTE INTRA-ABDOMINAL COMPLICATION IDENTIFIED. EXAM: CT Abdomen/Pelvis w/ Contrast DATE: 04/15/2024 11:07 PM CLINICAL HISTORY: Pain. COMPARISON: None available. TECHNIQUE: Spiral imaging was obtained of the abdomen and pelvis after the uneventful infusion of approximately 100 mL of Isovue [address] scans at this facility use dose modulation, iterative reconstruction, and/or weight based dosing when appropriate to reduce radiation dose to as low as reasonably achievable. Unless otherwise stated, incidental findings identified in this report do not require routine follow-up imaging. FINDINGS: Liver: No enlargement, significant fatty infiltration, suspicious mass or lesion. Biliary: The gallbladder is unremarkable. No abnormal biliary ductal dilatation. Pancreas: No suspicious mass, organized fluid collection, surrounding inflammation, or abnormal pancreatic ductal dilatation. Spleen: Unremarkable. Adrenals: Unremarkable. Kidneys: No hydronephrosis, significant urinary tract calculi, or suspicious mass. GI tract: Mild wall thickening with some fluid within the mid to distal small bowel and essentially decompressed colon. No abnormal small bowel dilation, pneumatosis, or suspicious mass. Normal appendix. Lymph nodes: No pathologically enlarged lymph nodes. Vasculature: No aneurysm or dissection. Mesentery/peritoneum/ retroperitoneum: No ascites, organized fluid collection, inflammatory changes, or suspicious mass. Pelvis: The urinary bladder, uterus, and adnexa appear within normal limits. Musculoskeletal: No acute osseous findings identified. Lower thorax: Noncontributory. Report Ordering Provider: Narinder Kumar FINAL REPORT Dictated: 04/16/2024 10:58 am Galo Altman MD Signed (Electronic Signature): 04/16/2024 10:58 am Signed by: Galo Altman MD Transcribed by: KEE Technologist: RODRÍGUEZ Technical Comments GFR (mL/min/1/73m2) na - age Contrast: Isovue 300 Contrast amount in ml's: 100 Normal [facility] ED Clinical Summaryon 2024 ED Clinical Summary ED Clinical Summary [address] [address] ED Clinical Summary Person Information Name: SOCORRO JOSEPH/New[employer]jeev Age: 23 Years : 2000 Sex: Female Language: Nepalese PCP: Raquel Nolan MD Marital Status: Single Visit Id: Visit Reason: Sinus Pain/Congestion; Vomiting; Nausea; Epigastric Pain; FLU+, N/V/ Speciality: Acuity: 3 Enc Type: Emergency Med Service: Emergency Arrival: 04/15/2024 20:32:57 Discharge: 04/16/2024 02:42:29 LOS: 000 06:10 Checkin: 04/15/2024 20:32:57 Checkout: 04/16/2024 02:42:29 Dispo Type: Home (Routine DC) EVENTS: Event Name Event Status Request Date/Time Start Date/Time Complete Date/Time Arrive Complete 04/15/2024 20:32:57 04/15/2024 20:32:57 04/15/2024 20:32:57 Document Home Meds Request 04/15/2024 20:32:57 Triage Complete 04/15/2024 20:32:57 04/15/2024 21:15:37 04/15/2024 21:15:37 Registration Complete 04/15/2024 20:37:26 04/15/2024 20:37:26 04/15/2024 20:37:26 Reg Complete Request 04/15/2024 20:37:26 Reg Bed Request Complete 04/15/2024 20:37:26 04/15/2024 20:37:26 04/15/2024 20:37:26 Bed Assign Complete 04/15/2024 21:43:27 04/15/2024 21:43:27 04/15/2024 21:43:27 Dr Exam Complete 04/15/2024 21:43:27 04/15/2024 21:51:23 04/15/2024 21:51:23 RN Exam Complete 04/15/2024 21:43:27 04/15/2024 22:40:12 04/15/2024 22:40:12 Pending Labs Complete 04/15/2024 21:51:18 04/15/2024 22:48:53 Lab Complete 04/15/2024 21:51:18 04/15/2024 22:48:53 Registration Request 04/15/2024 21:51:23 Pending Labs Complete 04/15/2024 22:21:35 04/15/2024 22:21:35 04/15/2024 22:48:53 Lab Complete 04/15/2024 22:21:35 04/15/2024 22:21:35 04/15/2024 22:48:53 CT Complete 04/15/2024 22:40:12 04/15/2024 23:07:24 04/15/2024 23:15:24 Meds Admin Complete 04/15/2024 22:42:37 04/15/2024 23:18:19 Meds Admin Request 04/15/2024 23:14:22 Meds Admin Complete 04/16/2024 00:07:04 04/16/2024 00:27:14 Meds Admin Complete 04/16/2024 02:16:00 04/16/2024 02:33:25 Discharge Complete 04/16/2024 02:16:40 04/16/2024 02:43:08 04/16/2024 02:43:08 Transfer Complete 04/16/2024 02:43:08 04/16/2024 02:43:08 04/16/2024 02:43:08 ADDRESS: [address] [place] [id number] PHYS DOC NOTES: MEDICAL INFORMATION: Prescriptions Given: New Medications [facility] 1986, [address] [place], [place] [id number], [phone] dicyclomine (Bentyl 10 mg Cap) 1 Capsules By Mouth 4 times a day as needed Nausea/Vomiting. For abdominal cramping. Refills: 0. ondansetron (Zofran ODT 4 mg Tab-Dis) 1 Tablets By Mouth every 8 hours as needed Nausea/Vomiting. Refills: 0. Medications to Continue with No Changes Other Medications oseltamivir (Tamiflu 75 mg Cap) 1 Capsules By Mouth 2 times a day for 5 Days. Refills: 0. PATIENT EDUCATION INFORMATION: Instructions: Abdominal Pain, Adult Follow up: With: Address: When: [place] [address] [place] [address] [employer] ([employer] In 3 days 04/19/2024 Comments: Call the office of your primary care doctor to arrange for follow-up within the above-stated timeframe. Follow-up with your primary care doctor about this ED visit. You should review your labs, imaging, and diagnoses from this ED visit with your primary care physician. There are occasionally non-emergent findings that require additional follow-up after your ED visit. If you were prescribed medications you should discuss possible side-effects and drug interactions with your pharmacist. Call 911 or go to the nearest Emergency Department if you develop any new or worsening symptoms. DIAGNOSIS: Abdominal pain, acute, epigastric; N&V (nausea and vomiting) Normal [facility] ED Note-Physicianon 04-16-19 ED Note-Physician ED Note-Physician Basic Information Time Seen: Narinder Kumar DO 04/15/2024 21:51 Chief Complaint dx with influenza on wednesday, started on tamiflu and n/v has gotten worse with epigastric pain. History of Present Illness 23-year-old female to the emergency department chief complaint of abdominal pain. She reports nausea and vomiting as well. She was diagnosed with influenza on Wednesday. She was started on Tamiflu. She reports worsening nausea and vomiting. Today she began to have severe epigastric pain. She denies . Review of Systems A 10 point review of systems is negative except as noted above. Medical and Surgical History: Reviewed and noted Social history: Lives at home Tobacco: Denies Physical Exam Vitals & Measurements T: 36.4 ???C(Oral) HR: 61(Monitored) RR: 16 BP: 114/62 SpO2: 97% HT: 177 cm WT: 83.8 kg BMI: 26.75 VITALS: I have reviewed the triage vital signs. GENERAL: Well developed, well appearing adult in no acute distress. NEURO: Alert and oriented. Moves all extremities. Face is symmetric and expressive. EYES: PERRL. No scleral icterus or conjunctival injection. No discharge. HENT: Normocephalic, atraumatic. Hearing is grossly intact. Nares grossly patent and without discharge. Mucous membranes moist. NECK: No JVD. Patient moves neck without restriction. CARDIO: Rhythm regular. Normal rate. No murmur, rub, or gallop. Pulses equal bilaterally in the upper and lower extremity. No lower extremity edema. PULM: Lungs clear to auscultation in all stevens. No wheezes, rales, or rhonchi. No conversational dyspnea. No splinting, stridor, or accessory muscle use. GI/: Abdomen is soft. Moderate epigastric tenderness. Normoactive bowel sounds. EXTREMITIES: Symmetric muscle bulk. No joint swelling. No clubbing, cyanosis, or deformity. SKIN: Warm and dry. Normal turgor. No rash or lesions appreciated. PSYCH: Mood, affect, and interaction is appropriate to the setting. Medical Decision Making 23-year-old female to the emergency department chief complaint of severe abdominal pain as well as nausea vomiting. Vital stable, the patient is afebrile. Recent influenza diagnosis. She seems to have more pain that I would expect in the abdomen however. Symptomatic medications were ordered. Will obtain CT scan as well as labs. Patient agrees with this plan. CBC and chemistry without major abnormalities. Her lipase is low. CT scan without acute findings. Possible enteritis. Discussed findings with the patient. She feels much improved. She is able tolerate oral intake. Return precautions were discussed. All questions were answered. The patient was discharged home. Assessment/Plan Abdominal pain, acute, epigastric (R10.13: Epigastric pain) N&V (nausea and vomiting) (R11.2: Nausea with vomiting, unspecified) Orders: dicyclomine, 10 mg = 1 cap(s), Oral, QID, PRN Nausea/Vomiting, For abdominal cramping, # 16 cap(s), Refills(s) 0, Pharmacy: [facility], 177, cm, 04/15/24 21:15:00 EST, Height/Length Dosing, 83.8, kg, 04/15/24 21:15:00 EST, Weight Dosing dicyclomine, 20 mg = 1 tab(s), Tab, Oral, Once, Stop date 04/16/24 2:15:00 EST, STAT, Start date 04/16/24 2:15:00 EST, 04/16/24 2:15:00 EST famotidine, 20 mg = 2 mL, Soln-IV, IV Push, Once, Stop date 04/15/24 22:42:00 EST, STAT, Start date 04/15/24 22:42:00 EST, 04/15/24 22:42:00 EST ketorolac, 15 mg = 1 mL, Injection, IV Push, Once, Stop date 04/15/24 22:41:00 EST, STAT, Start date 04/15/24 22:41:00 EST, 04/15/24 22:41:00 EST ondansetron, 4 mg = 1 tab(s), Oral, q8hr, PRN Nausea/Vomiting, # 12 tab(s), Refills(s) 0, Pharmacy: [facility], 177, cm, 04/15/24 21:15:00 EST, Height/Length Dosing, 83.8, kg, 04/15/24 21:15:00 EST, Weight Dosing ondansetron, 4 mg = 2 mL, Injection, IV Push, Once, Stop date 04/15/24 22:41:00 EST, STAT, Start date 04/15/24 22:41:00 EST, 04/15/24 22:41:00 EST ondansetron, 4 mg = 1 tab(s), Tab-Dis, Oral, Once, Stop date 04/16/24 2:15:00 EST, STAT, Start date 04/16/24 2:15:00 EST, 04/16/24 2:15:00 EST promethazine 25 mg + Sodium Chloride 0.9% intravenous solution 50 mL, Injection, IV Piggyback, Once, Stop date 04/16/24 0:06:00 EST, STAT, Start date 04/16/24 0:06:00 EST, 153 mL/hr, Infuse over 20 minute(s) Sodium Chloride 0.9% intravenous solution 1,000 mL, 1,000 mL, IV, 999 mL/hr, STAT, Start date 04/15/24 23:13:00 EST, 1 hour(s), Total volume (mL): 1,000, 83.8 kg, 2.03, m2 CBC w/ Auto Diff Comprehensive Metabolic Panel CT Abdomen/Pelvis w/ Contrast eGFR Lipase Level Medications Administered Given Sodium Chloride 0.9% IV Lorie 1000 mL 1,000 mL, 1000 mL, IV dicyclomine 20 mg Tab, 20 mg, Oral famotidine 10 mg/mL IV Lorie, 20 mg, IV Push ketorolac 15 mg/mL Inj, 15 mg, IV Push ondansetron 4 mg Dis Tab, 4 mg, Oral [id number] [F] 25 mg + Sodium Chloride 0.9% IV Lorie 50 mL [F] 50 mL, IV Piggyback Zofran 4 mg/2 mL Injection, 4 mg, IV Push Disposition Plan Patient Discharge Condition Stable Discharge Dispo (more content not included)... Normal [facility] Comment on above: Result Comment: Elec tronically Signed By: Narinder Kumar DO\.br\Date and Time Signed: 04/16/24 04:28 EST ED Patient Summaryon 025 ED Patient Summary ED Patient Summary [address] [address] Patient Discharge Instructions Person Information Name: SOCORRO JOSEPH Age: 23 Years Arrival Date: 04/15/2024 20:32:57 Discharge Diagnosis: Abdominal pain, acute, epigastric; N&V (nausea and vomiting) Primary Care Physician: Raquel Nolan MD Provider Information Primary Provider: Narinder Kumar DO Advanced Promotional Marketing Agent:None The exam and treatment you received in the Emergency Department were for an urgent problem and are not intended as complete care. It is important that you follow up with a doctor, nurse practitioner, or physician???s tmd teacher assistant for ongoing care. If your symptoms [...] With: Address: When: Raquel Nolan [place] [address] Business (1) In 3 days 04/19/2024 Comments: Call the office of your primary care doctor to arrange for follow-up within the above-stated timeframe. Follow-up with your primary care doctor about this ED visit. You should review your labs, imaging, and diagnoses from this ED visit with your primary care physician. There are occasionally non-emergent findings that require additional follow-up after your ED visit. If you were prescribed medications you should discuss possible side-effects and drug interactions with your pharmacist. Call 911 or go to the nearest Emergency Department if you develop any new or worsening symptoms. In the event that this physician does not participate in your insurance network, please consult with your insurance company to find a nearby participating provider. Patient Education Materials: Abdominal Pain, Adult A MESSAGE TO ALL PATIENTS REGARDING OPIOIDS PRESCRIPTION OPIOIDS: WHAT YOU NEED TO KNOW Prescription opioids can be used to help relieve hzyyatly-mi-fervmx pain and are often prescribed following a [...] as well, even when taken as directed: ??? Tolerance???meaning you might need to take more of the medication for the same pain relief ??? Physical dependence???meaning you have symptoms of withdrawal when a medication is stopped ??? Increased sensitivity to pain ??? Constipation ??? Nausea, vomiting, and dry mouth ??? Sleepiness and dizziness ??? Confusion ??? Depression ??? Low levels of testosterone that can result in lower sex drive, energy, and strength ??? Itching and sweating RISKS ARE GREATER WITH: ??? History of drug misuse, substance use disorder, or overdose ??? Mental health conditions (such as depression or anxiety) ??? Sleep apnea ??? Older age (65 years and older) ??? Avoid alcohol while taking prescription opioids. Also, unless specifically advised by your health care provider, medications to avoid include: ??? Benzodiazepines (such as Xanax or Valium) ??? Muscle relaxants (such as Soma or Flexeril) ??? Hypnotics (such as Ambien or Lunesta) ??? Other prescription opioids KNOW YOUR OPTIONS Talk to your health care provider about ways to manage your pain that don???t involve prescription opioids. Some of these options may actually work better and have fewer risks and side effects. Options may include: ??? Pain relievers such as acetaminophen, ibuprofen, and naproxen ??? Some medication that are also used for depression or seizures ??? Physical therapy and exercise ??? Cognitive behavioral therapy, a psychological, goal-directed approach, in which patients learn how to modify physical, behavioral, and emotional triggers of pain and stress. IF YOU ARE PRESCRIBED OPIOIDS FOR PAIN: ??? Never take opioids in greater amounts or more often than prescribed. ??? Follow up with your primary health care provider. o Work together to create a plan on how to manage your pain. o Talk about ways to help manage your pain that don???t involve prescription opioids. o Talk about any and all concerns and side effects. ??? Help prevent misuse and abuse o Never sell or share prescription opioids. o Never use (more content not included)... Normal [facility] CBC w/ Auto Diffon 5 Basophils/100 WBC (Bld) 0.2 % Normal 0.0-2.0 [facility] Comment on above: Performed By: #### 2 [id number] #### [facility] [address] [place] [address] Basophils/Leukocytes Auto (Bld) [Pure # fraction] 0.0 E9/L Normal 0.0-0.2 [facility] Comment on above: Performed By: #### 2 [id number] #### [facility] [address] [place] [address] Eosinophils (Bld) [#/Vol] 0.1 E9/L Normal 0.0-0.5 [facility] Comment on above: Performed By: #### 2 [id number] #### [facility] [address] [place] [address] Eosinophils/100 WBC (Bld) 1.0 % Normal 0.0-8.0 [facility] Comment on above: Performed By: #### 2 [id number] #### [facility] [address] [place] [address] Erythrocyte distribution width (RBC) [Ratio] 13.1 % Normal 10.9-14.2 [facility] Comment on above: Performed By: #### 2 [id number] #### [facility] [address] [place] [address] Hematocrit (Bld) [Volume fraction] 39.0 % Normal 34.0-46.0 [facility] Comment on above: Performed By: #### 2 [id number] #### [facility] [address] [place] [address] Hemoglobin (Bld) [Mass/Vol] 13.4 g/dL Normal 12.0-16.0 [facility] Comment on above: Performed By: #### 2 [id number] #### [facility] [address] [place] [address] Lymphocytes (Bld) [#/Vol] 2.9 E9/L Normal 1.0-4.0 [facility] Comment on above: Performed By: #### 2 [id number] #### [facility] [address] [place] [address] Lymphocytes/100 WBC (Bld) 28.0 % Normal 14.0-50.0 [facility] Comment on above: Performed By: #### 2 [id number] #### [facility] [address] [place] [address] MCH (RBC) [Entitic mass] 31.8 pg Normal 27.0-34.0 [facility] Comment on above: Performed By: #### 2 [id number] #### [facility] [address] [place] [address] MCHC (RBC) [Mass/Vol] 34.3 g/dL Normal 31.4-36.0 [facility] Comment on above: Performed By: #### 2 [id number] #### [facility] [address] [place] [address] MCV (RBC) [Entitic vol] 92.9 fL Normal 80.0-100.0 [facility] Comment on above: Performed By: #### 2 [id number] #### [facility] [address] [place] [address] Monocytes (Bld) [#/Vol] 0.5 E9/L Normal 0.2-1.0 [facility] Comment on above: Performed By: #### 2 [id number] #### [facility] [address] [place] [address] Neutrophils (Bld) [#/Vol] 6.9 E9/L Normal 2.0-7.5 [facility] Comment on above: Performed By: #### 2 [id number] #### [facility] [address] [place] [address] Neutrophils/100 WBC (Bld) 66.1 % Normal 36.0-75.0 [facility] Comment on above: Performed By: #### 2 [id number] #### [facility] [address] [place] [address] Platelet mean volume (Bld) [Entitic vol] 8.2 fL Normal 6.4-10.8 [facility] Comment on above: Performed By: #### 2 [id number] #### [facility] [address] [place] [address] Platelets (Bld) [#/Vol] 214.0 E9/L Normal 150.0-500.0 [facility] Comment on above: Performed By: #### 2 [id number] #### [facility] [address] [place] [address] RBC (Bld) [#/Vol] 4.2 E12/L Low 4.3-5.9 [facility] Comment on above: Performed By: #### 2 [id number] #### [facility] [address] [place] [address] WBC corrected for nucl RBC Auto (Bld) [#/Vol] 10.5 E9/L Normal 4.0-11.0 [facility] Comment on above: Performed By: #### 2 [id number] #### [facility] [address] [place] [address] CHEMISTRYOrdered By: Case shanks on 04-15-2024 Albumin [Mass/Vol] 4.4 g/dL Normal 3.3 - 5.0 gm/dL [facility] Albumin/Globulin [Mass ratio] 2.0 {ratio} Normal 1.1 - 2.2 [facility] ALP [Catalytic activity/Vol] 78 [iU]/d Normal 21 - 98 Int._Unit/L [facility] ALT No additional P-5'-P [Catalytic activity/Vol] 24 [iU]/d Normal 6 - 46 Int._Unit/L [facility] Anion gap [Moles/Vol] 10 mmol/L Normal 6 - 16 mEq/L [facility] AST [Catalytic activity/Vol] 16 [iU]/d Normal 5 - 43 Int._Unit/L [facility] Bilirubin [Mass/Vol] 0.4 mg/dL Normal 0.0 - 1 .1 mg/dL [facility] Calcium [Mass/Vol] 8.8 mg/dL Low 8.9 - 11. 1 mg/dL [facility] Chloride [Moles/Vol] 106 mmol/L Normal 101 - 1 11 mmol/L [facility] CO2 [Moles/Vol] 27 mmol/L Normal 21 - 31 mmol/L [facility] Creatinine [Mass/Vol] 0.7 mg/dL Normal 0.5 - 1.3 mg/dL [facility] eGFR 123 mL/min/1.73 m2 Normal >=59mL/mi n/ 1.73 m2 [facility] Globulin (S) [Mass/Vol] 2.2 g/dL Normal 1.4 - 4.0 gm/dL [facility] Glucose [Mass/Vol] 94 mg/dL Normal 55 - 199 mg/dL [facility] Lipase [Catalytic activity/Vol] 8 U/L Low 13 - 58 unit/L [facility] Potassium [Moles/Vol] 3.5 mmol/L Normal 3.5 - 5.3 mmol/L [facility] Protein [Mass/Vol] 6.6 g/dL Normal 6.0 - 7.8 gm/dL [facility] Sodium [Moles/Vol] 139 mmol/L Normal 135 - 145 mmol/L [facility] Urea nitrogen [Mass/Vol] 9 mg/dL Normal 5 - 21 mg/dL [facility] Urea nitrogen/Creatinine [Mass ratio] 13 mg/mg Normal 10 - 20 [facility] CMPon 04-15-2024 Albumin [Mass/Vol] 4.4 g/dL Normal 3.3-5.0 [facility] Comment on above: Performed By: #### 2 [id number] #### [facility] [address] [place] [address] Albumin/Globulin (S) [Mass conc ratio] 2.0 Normal 1.1-2.2 [facility] Comment on above: Performed By: #### 2 [id number] #### [facility] [address] [place] [address] ALP [Catalytic activity/Vol] 78 Int._Unit/L Normal 21-98 [facility] Comment on above: Performed By: #### 2 [id number] #### [facility] [address] [place] [address] ALT No additional P-5'-P [Catalytic activity/Vol] 24 Int._Unit/L Normal 6-46 [facility] Comment on above: Performed By: #### 2 [id number] #### [facility] [address] [place] [address] Anion gap [Moles/Vol] 10 mmol/L Normal 6-16 [facility] Comment on above: Performed By: #### 2 [id number] #### [facility] [address] [place] [address] AST [Catalytic activity/Vol] 16 Int._Unit/L Normal 5-43 [facility] Comment on above: Performed By: #### 2 [id number] #### [facility] [address] [place] [address] Bilirubin [Mass/Vol] 0.4 mg/dL Normal 0.0-1.1 [facility] Comment on above: Performed By: #### 2 [id number] #### [facility] [address] [place] [address] Calcium [Mass/Vol] 8.8 mg/dL Low 8.9-11.1 [facility] Comment on above: Performed By: #### 2 [id number] #### [facility] [address] [place] [address] Chloride [Moles/Vol] 106 mmol/L Normal 101-111 [facility] Comment on above: Performed By: #### 2 [id number] #### [facility] [address] [place] [address] CO2 [Moles/Vol] 27 mmol/L Normal 21-31 [facility] Comment on above: Performed By: #### 2 [id number] #### [facility] [address] [place] [address] Creatinine [Mass/Vol] 0.7 mg/dL Normal 0.5-1.3 [facility] Comment on above: Performed By: #### 2 [id number] #### [facility] [address] [place] [address] Globulin (S) [Mass/Vol] 2.2 g/dL Normal 1.4-4.0 [facility] Comment on above: Performed By: #### 2 [id number] #### [facility] [address] [place] [address] Glucose [Mass/Vol] 94 mg/dL Normal 55-199 [facility] Comment on above: Performed By: #### 2 [id number] #### [facility] [address] [place] [address] Potassium [Moles/Vol] 3.5 mmol/L Normal 3.5-5.3 [facility] Comment on above: Performed By: #### 2 [id number] #### [facility] [address] [place] [address] Protein [Mass/Vol] 6.6 g/dL Normal 6.0-7.8 [facility] Comment on above: Performed By: #### 2 [id number] #### [facility] [address] [place] [address] Sodium [Moles/Vol] 139 mmol/L Normal 135-145 [facility] Comment on above: Performed By: #### 2 [id number] #### [facility] [address] [place] [address] Urea nitrogen [Mass/Vol] 9 mg/dL Normal 5-21 [facility] Comment on above: Performed By: #### 2 [id number] #### [facility] [address] [place] [address] Urea nitrogen/Creatinine [Mass ratio] 13 No Units Normal 10-20 [facility] Comment on above: Performed By: #### 2 [id number] #### [facility] [address] [place] [address] HEMATOLOGYOrdered By: SYSTEM SYSTEM on 04-15-2024 Basophils/100 WBC (Bld) 0.2 % Normal 0.0 - 2.0 % [facility] Basophils/Leukocytes Auto (Bld) [Pure # fraction] 0.0 E9/L Normal 0.0 - 0.2 E9/L [facility] Eosinophils (Bld) [#/Vol] 0.1 E9/L Normal 0.0 - 0.5 E9/L [facility] Eosinophils/100 WBC (Bld) 1.0 % Normal 0.0 - 8.0 % [facility] Erythrocyte distribution width (RBC) [Ratio] 13.1 % Normal 10.9 - 14.2 % [facility] Hematocrit (Bld) [Volume fraction] 39.0 % Normal 34.0 - 46.0 % [facility] Hemoglobin (Bld) [Mass/Vol] 13.4 g/dL Normal 12.0 - 16.0 gm/dL [facility] Lymphocytes (Bld) [#/Vol] 2.9 E9/L Normal 1.0 - 4.0 E9/L [facility] Lymphocytes/100 WBC (Bld) 28.0 % Normal 14.0 - 50.0 % [facility] MCH (RBC) [Entitic mass] 31.8 pg Normal 27. 0 - 34.0 pg [facility] MCHC (RBC) [Mass/Vol] 34.3 g/dL Normal 31.4 - 36.0 gm/dL [facility] MCV (RBC) [Entitic vol] 92.9 fL Normal 80.0 - 100.0 fL [facility] Monocytes (Bld) [#/Vol] 0.5 E9/L Normal 0.2 - 1.0 E9/L [facility] Monocytes/100 WBC (Bld) 4.7 % Normal 4.0 - 14.0 % [facility] Neutrophils (Bld) [#/Vol] 6.9 E9/L Normal 2.0 - 7.5 E9/L [facility] Neutrophils/100 WBC (Bld) 66.1 % Normal 36.0 - 75.0 % [facility] Platelet mean volume (Bld) [Entitic vol] 8.2 fL Normal 6.4 - 10.8 fL [facility] Platelets (Bld) [#/Vol] 214.0 E9/L Normal 150. 0 - 500.0 E9/L [facility] RBC (Bld) [#/Vol] 4.2 E12/L Low 4.3 - 5.9 E12/L [facility] WBC corrected for nucl RBC Auto (Bld) [#/Vol] 10.5 E9/L Normal 4.0 - 11.0 E9/L [facility] Lipase Levelon 04-15-2024 Lipase [Catalytic activity/Vol] 8 U/L Low 13-58 [facility] Comment on above: Performed By: #### 2 [id number] #### [facility] [address] [place] [address] eGFRon 04-15-2024 eGFR 123 mL/min/1.73 m2 Normal >=59 [facility] Comment on above: Performed By: #### 1 [id number] #### [facility] [address] [place] [address] Ambulatory Visit Summaryon 0 04-12-2024 Ambulatory Visit Summary Ambulatory Visi t Summary EARL JOSEPHERICA Penny :2000 Visit Date:04/12/2024 Ambulatory Visit Instructions Your Diagnosis Influenza A Headache Nausea Chills Congestion of nasal sinus BMI 27.0-27.9,adult Your Care Team Attending Physician - Alana VIEYRA, Charisse Primary Care Physician - Raquel Nolan MD This Is Your Medications List ondansetron (ondansetron 4 mg Dis Tab) oseltamivir (Tamiflu 75 mg Cap) Procedures Performed Insertion of IUD (07/18/2019), Tubal ligation. Discharge Vitals Temperature (Oral) 36.8 ???C Heart Rate (Peripheral) 79 Respiratory Rate 18 Blood Pressure 122/72 Height 175.6 cm Height 69 in Weight 83.8 kg Weight 184.747 lb BMI 27.18 Medications What How Much When Why Instructions New ondansetron (ondansetron 4 mg Dis Tab) 1 Tablets By Mouth Every 8 hours Duration: 2 Days allow tablet to dissolve on tongue Pickup at [facility] 1985 New oseltamivir (Tamiflu 75 mg Cap) 1 Capsules By Mouth 2 times a day Influenza A Nausea BMI 27.0-27.9,adult Duration: 5 Days Pickup at [facility] 1985 Pharmacy Information [facility] 1986: [address], [place] [id number] [phone] Medications and Immunizations Administered Given ondansetron 4 mg Dis Tab, 4 mg, Oral. For: Allergies No Known Allergies Problems Ongoing - Any problem that you are currently receiving treatment for. Depression Smoker Historical - Any problem that you are no longer receiving treatment for. Smoker Supervision of normal in second trimester Patient Survey You may receive a survey via text or e-mail asking about your office visit. Please share your experience with us by completing your survey. We appreciate your feedback and thank you for choosing us for your care. Normal [facility] Family Medicine Office/Clini c Noteon 04-12-2024 Family Medicine Office/Clinic Note Family Medicine Office/Clinic Note Chief Complaint migraine, nausea HPI Staff 23 year old female presents with migraine, nausea, sinus congestion onset yesterday History of Present Illness I have reviewed and verified the staff HPI to be accurate for this encounter. Portions of this record have been created with voice recognition software. Occasional wrong-word or ???[id number]??? substitutions may have occurred due to the inherent limitations of voice recognition software. 23-year-old female presents with complaints of nasal congestion, headache and nausea. Patient states she is not sure if it is a migraine or she is coming down with something as her sister recently had been diagnosed with influenza A. States she has been difficult for her to eat today as she feels like she could throw up but so she has not been eating. She does report cutting back on caffeine but tried sipping a Coke earlier for the caffeine it did not seem to help. She denies any ear pain or sore throat. She denies any cough wheezing shortness of breath. She has felt cold at times and hot at times but she says she is not sure if that is a fever or the weather. Is been using Tylenol for her headache pain with some relief but feels like she does not get a significant amount of relief with just Tylenol. She does not report having history of migraines in the past. Patient states her headache pain radiates down each side of her neck. No known trauma to her neck or head. She reports some mild light sensitivity but not increased sensitivity to sound. Patient states she was treated in the ER for sinus infection a few weeks ago and had headaches at that time as well but does not feel she has another sinus infection but she is not sure. Review of Systems PHQ Score Initial Depression Screen Score: 0 SCORE ROS negative unless otherwise stated in HPI. Physical Exam Vitals & Measurements T: 36.8 ???C(Oral) HR: 79(Peripheral) RR: 18 BP: 122/72 SpO2: 99% HT: 69 in HT: 175.6 cm WT: 83.8 kg WT: 184.747 lb BMI: 27.18 General: Well developed, well nourished, in no acute distress Eyes: Pupils equal, round, and reactive to light. Conjunctivae and sclerae normal, and extraocular movements intact. Glasses Ears: No deformity or lesion of external ear. Canals and TM appear normal bilaterally. TM???s intact, not inflamed, with normal light reflex. Hearing grossly normal to conversational speech Nose: mild nasal mucosa inflammation and edema Mouth: Mucous membranes moist. Normal oropharynx, and posterior pharynx without lesions or exudates. Tongue normal Neck: no adenopathy Lungs: clear to auscultation throughout, no wheezing, no rales. No respiratory distress Cardio: regular rate and rhythm, no murmur Abdomen: not assessed Musculoskeletal: not assessed Extremity: not assessed Neurologic: Grossly normal Skin: No rashes, ulcerations, or suspicious lesions Mental Status: Alert and oriented x3. Normal mood and affect Assessment/Plan Due to exposure to influenza A by her sister as well as symptoms that could also be COVID we will rule those out with a rapid swab. Patient was positive for influenza A. Patient has had symptoms less than 72 hours and would like to be treated with Tamiflu which will be sent to her preferred pharmacy. Work note provided for today and tomorrow. Also given additional note for Wednesday at but patient would like to try to return on Wednesday if she is fever free without use of medication. For headache pain she is going to try alternating doses of ibuprofen and Tylenol. Headaches are likely due to illness with influenza A. 1. Influenza A (J10.1: Influenza due to other identified influenza virus with other respiratory manifestations) Tested at patient request. Rapid influenza test positive for influenza A. Discussed viral nature of illness and typical duration- the worst (fever, body aches) is usually the first 3-5 days with cold symptoms lasting 7-14 days typically. Advised 72 hr tamiflu window. Advised of possible benefits (shortening duration of illness by about 24 hours, possibly less severe illness) vs possible risks/side effects including temporary altered mental status. Patient/parent would like RX for tamiflu- sent to pharmacy. May use [id number] cold and flu medications per package instructions for symptomatic treatment. Fluids/rest encouraged, PRN tylenol/ibuprofen for pain/fever, may need to alternate. Follow up with PCP if not improving over next 5-7 days, sooner or ER if significantly worsening. Patient/parent verbalized understanding of tx plan. Ordered: oseltamivir, 75 mg = 1 cap(s), Oral, BID, X 5 day(s), # 10 cap(s), Refills(s) 0, Pharmacy: [facility], 175.6, cm, 04/12/24 13:49:00 EST, Height/Length Dosing, 83.8, kg, 04/12/24 13:49:00 EST, Weight Dosing 2. Headache (R51.9: Headache, unspecified) As above in #1 May use Tylenol or ibuprofen for headache/ fever per package instructions. 3. Nausea (R11.0: Nausea) Patien (more content not included)... Normal [facility] Comment on above: Result Comment: Elec tronically Signed By: Alana VIEYRA, Charisse\.br\Date and Time Signed: 04/12/24 18:34 EST Patient Letter FTon 2024 Patient Letter [facility] Patient Letter [facility] [address], [facility] [place] [id number] April 12, 2024 BREANNIA ERIK [address] [place] [address] : 2000 Please excuse ERIK, BREANNIA M from work . Date and/or Time of Absence: From: 04/15/24 To: 04/15/2024 May return to work on: 04/16/2024 Restrictions: None Comments: Please excuse due to an acute illness. Provider Signature: AZALIA Arizmendi Nurse Practitioner [facility] [address] [place] [address] [facility] Patient Letter [facility] Patient Letter [facility] [address], [place] [phone] April 12, 2024 BREANNIA ERIK [address] [place] [address] : 2000 Please excuse ERIK BREANNIA M from work . Date and/or Time of Absence: From: 04/12/2024 To: 04/13/2024 May return to work on: 04/14/2024 Restrictions: None Comments: Please excuse due to an acute illness. Provider Signature: AZALIA Arizmendi Nurse Practitioner [facility] [address] [place] [address] [facility] ED Note-Physicianon 03-21-20 ED Note-Physician ED Note-Physician Basic Information Time Seen: Heri Lazcano PA-C 03/20/2024 07:21 Chief Complaint Pt reports she started with burning pain around umbilicus this AM while driviing with associated nausea. has had URI s/s for one week. Covid and CXR neg. Started with urinary urgency and burning last night. hx of tubal. History of Present Illness 23-year-old female comes into the ED for evaluation of abdominal pain. Over the last several days she has had some upper respiratory infection symptoms nasal congestion and cough. Associated lack of taste and smell. States she had negative COVID testing performed. Has been trying some vkey-cuv-dkoquhi cough and cold medications. Muscle discharge now has developed abdominal pain. She complains of pain to the umbilicus without radiation. She has had nausea but no vomiting. Has had some urinary symptoms with frequency and discomfort. She has had previous tubal ligation secondary to ectopic . No fever or chills. Review of Systems A 10 point review of systems is negative except as noted above. Medical and Surgical History: Reviewed and noted Social history: Lives at home Tobacco: Denies Physical Exam Vitals & Measurements T: 36.8 ???C(Oral) HR: 79(Peripheral) RR: 16 BP: 132/88 SpO2: 100% HT: 175.56 cm WT: 80 kg BMI: 25.96 Nurses notes and vital signs reviewed and patient is not hypoxic. General: The patient appears well, resting comfortably. Skin: Warm, dry. Head: Atraumatic. Neck: No JVD. Eye: Normal conjunctiva. Ears, Nose, Mouth, and Throat: Moist mucous membranes. Sinus congestion Cardiovascular: Strong distal pulses. Chest wall: Respiratory: Respirations are nonlabored. Congested cough Back: Normal range of motion. Mild right CVA tenderness Musculoskeletal: Normal ROM with no gross deformity. Gastrointestinal: Abdomen is soft throughout. There is mild tenderness about the umbilicus. No guarding rebound or rigidity. No distention Urological: Neurological: Awake and alert. No focal deficits. Follows commands. Psychiatric: Cooperative. Medical Decision Making Laboratory studies reviewed and noted. The patient does have some hematuria, which is currently on her menstrual period. Chest and abdominal x-rays with no acute findings. Patient does feel improved here after Bentyl and Naprosyn. Her abdomen is soft throughout. Relatively nontender. No fevers. No vomiting he does have sinus congestion and cough on examination. Though symptoms have been progressive over the last 7-10 days. Her sinus congestion and drainage may be contributory to her abdominal pain. She is treated today with Augmentin and Phenergan DM. Discharged home PCP follow-up. Patient was encouraged to return to the ED if symptoms worsen or change. Assessment/Plan Abdominal pain (R10.9: Unspecified abdominal pain) Cough (R05.9: Cough, unspecified) Orders: amoxicillin-clavulana te, = 1 tab(s), Oral, q12hr, X 10 day(s), # 20 tab(s), Refills(s) 0, Pharmacy: [facility] 1985, 175.6, cm, 03/20/24 7:23:00 EST, Height/Length Dosing, 80, kg, 03/20/24 7:23:00 EST, Weight Dosing dextromethorphan-prom ethazine, 5 mL, Oral, q6hr for cough for 5 day(s), 200 mL, Refill(s) 0, [facility], 175.6, cm, 03/20/24 7:23:00 EST, Height/Length Dosing, 80, kg, 03/20/24 7:23:00 EST, Weight Dosing dicyclomine, 20 mg = 1 tab(s), Tab, Oral, Once, Stop date 03/20/24 7:38:00 EST, STAT, Start date 03/20/24 7:38:00 EST, 03/20/24 7:38:00 EST ibuprofen, 600 mg = 1 tab(s), Tab, Oral, Once, Stop date 03/20/24 7:38:00 EST, STAT, Start date 03/20/24 7:38:00 EST, 03/20/24 7:38:00 EST Basic Metabolic Panel CBC w/ Auto Diff eGFR Extra Blue Tube Extra SST Tube Hepatic Function Panel Lipase Level U Beta Hcg Qual UA with Cult Rflx XR Abdomen Series w/ Chest 1 View Medications Administered Given dicyclomine 20 mg Tab, 20 mg, Oral ibuprofen 600 mg Tab, 600 mg, Oral Disposition Plan Patient Discharge Condition Disposition: Discharged home Condition: Improved and stable Counseled: Patient and/or family were counseled to workup, results, treatment plan and follow-up recommendations Discharge Prescription List Prescriptions Augmentin 875 mg oral tablet, 1 tab(s), Oral, q12hr dextromethorphan-prom ethazine 15 mg-6.25 mg/5 mL Oral Syrup 5 mL, 5 mL, Oral, q6hr, PRN Follow-up With When Contact Information Raquel Nolan In 3 days 03/23/[address] [place] [address]- Business (1) Additional Instructions: Patient Education Cough, Adult Abdominal Pain, Adult Attestation I performed a substantive part of the MDM during the patient???s E/M visit. I personally made or approved the documented management plan and acknowledge its risk of complications. (Independent Interpretation) My (EKG/X-Ray/US/CT) interpretation as above. (Discussion) Management/test interpretation discussed with APC. This report was transcribed using voice recognition software. Every effort was mad (more content not included)... Normal [facility] Comment on above: Result Comment: Elec tronically Signed By: Heri Lazcano PA-C\.br\Date and Time Signed: 03/20/24 09:21 EST\.br\Electronically Co-Signed By: Roque Harris DO\.br\Date and Time Co-Signed: 03/21/24 08:01 EST BMPon 03-20-2024 Anion gap [Moles/Vol] 10 mmol/L Normal 6-16 [facility] Comment on above: Performed By: #### 2 [id number] #### [facility] [address] [place] [address] Calcium [Mass/Vol] 9.4 mg/dL Normal 8.9-11.1 [facility] Comment on above: Performed By: #### 2 [id number] #### [facility] [address] [place] [address] Chloride [Moles/Vol] 104 mmol/L Normal 101-111 [facility] Comment on above: Performed By: #### 2 [id number] #### [facility] [address] [place] [address] CO2 [Moles/Vol] 28 mmol/L Normal 21-31 [facility] Comment on above: Performed By: #### 2 [id number] #### [facility] [address] [place] [address] Creatinine [Mass/Vol] 0.6 mg/dL Normal 0.5-1.3 [facility] Comment on above: Performed By: #### 2 [id number] #### [facility] [address] [place] [address] Glucose [Mass/Vol] 93 mg/dL Normal 55-199 [facility] Comment on above: Performed By: #### 2 [id number] #### [facility] [address] [place] [address] Potassium [Moles/Vol] 4.2 mmol/L Normal 3.5-5.3 [facility] Comment on above: Performed By: #### 2 [id number] #### [facility] [address] [place] [address] Sodium [Moles/Vol] 138 mmol/L Normal 135-145 [facility] Comment on above: Performed By: #### 2 [id number] #### [facility] [address] [place] [address] Urea nitrogen [Mass/Vol] 15 mg/dL Normal 5-21 [facility] Comment on above: Performed By: #### 2 [id number] #### [facility] [address] [place] [address] Urea nitrogen/Creatinine [Mass ratio] 25 No Units High 10-20 [facility] Comment on above: Performed By: #### 2 [id number] #### [facility] [address] [place] [address] CBC w/ Auto Diffon 4 Basophils/100 WBC (Bld) 0.7 % Normal 0.0-2.0 [facility] Comment on above: Performed By: #### 2 [id number] #### [facility] [address] [place] [address] Basophils/Leukocytes Auto (Bld) [Pure # fraction] 0.1 E9/L Normal 0.0-0.2 [facility] Comment on above: Performed By: #### 2 [id number] #### [facility] [address] [place] [address] Eosinophils (Bld) [#/Vol] 0.3 E9/L Normal 0.0-0.5 [facility] Comment on above: Performed By: #### 2 [id number] #### [facility] [address] [place] [address] Eosinophils/100 WBC (Bld) 3.9 % Normal 0.0-8.0 [facility] Comment on above: Performed By: #### 2 [id number] #### [facility] [address] [place] [address] Erythrocyte distribution width (RBC) [Ratio] 12.7 % Normal 10.9-14.2 [facility] Comment on above: Performed By: #### 2 [id number] #### [facility] [address] [place] [address] Hematocrit (Bld) [Volume fraction] 38.7 % Normal 34.0-46.0 [facility] Comment on above: Performed By: #### 2 997231 #### [facility] [address] [place] [address] Hemoglobin (Bld) [Mass/Vol] 13.4 g/dL Normal 12.0-16.0 [facility] Comment on above: Performed By: #### 2 [id number] #### [facility] [address] [place] [address] Lymphocytes (Bld) [#/Vol] 2.2 E9/L Normal 1.0-4.0 [facility] Comment on above: Performed By: #### 2 [id number] #### [facility] [address] [place] [address] Lymphocytes/100 WBC (Bld) 31.7 % Normal 14.0-50.0 [facility] Comment on above: Performed By: #### 2 696117 #### [facility] [address] [place] [address] MCH (RBC) [Entitic mass] 32.2 pg Normal 27.0-34.0 [facility] Comment on above: Performed By: #### 2 076172 #### [facility] [address] [place] [address] MCHC (RBC) [Mass/Vol] 34.5 g/dL Normal 31.4-36.0 [facility] Comment on above: Performed By: #### 2 [id number] #### [facility] [address] [place] [address] MCV (RBC) [Entitic vol] 93.1 fL Normal 80.0-100.0 [facility] Comment on above: Performed By: #### 2 [id number] #### [facility] [address] [place] [address] Monocytes (Bld) [#/Vol] 0.5 E9/L Normal 0.2-1.0 [facility] Comment on above: Performed By: #### 2 [id number] #### [facility] [address] [place] [address] Neutrophils (Bld) [#/Vol] 4.0 E9/L Normal 2.0-7.5 [facility] Comment on above: Performed By: #### 2 579666 #### [facility] [address] [place] [address] Neutrophils/100 WBC (Bld) 56.8 % Normal 36.0-75.0 [facility] Comment on above: Performed By: #### 2 845384 #### [facility] [address] [place] [address] Platelet mean volume (Bld) [Entitic vol] 8.6 fL Normal 6.4-10.8 [facility] Comment on above: Performed By: #### 2 [id number] #### [facility] [address] [place] [address] Platelets (Bld) [#/Vol] 264.0 E9/L Normal 150.0-500.0 [facility] Comment on above: Performed By: #### 2 [id number] #### [facility] [address] [place] [address] RBC (Bld) [#/Vol] 4.2 E12/L Low 4.3-5.9 [facility] Comment on above: Performed By: #### 2 [id number] #### [facility] [address] [place] [address] WBC corrected for nucl RBC Auto (Bld) [#/Vol] 7.0 E9/L Normal 4.0-11.0 [facility] Comment on above: Performed By: #### 2 [id number] #### [facility] [address] [place] [address] CHEMISTRYOrdered By: SYSTEM SYSTEM on 03-20-2024 Albumin [Mass/Vol] 4.3 g/dL Normal 3.3 - 5.0 gm/dL Rem[facility] Chem Albumin/Globulin [Mass ratio] 1.6 {ratio} Normal 1.1 - 2.2 [facility] ALP [Catalytic activity/Vol] 110 [iU]/d High 21 - 98 Int._Unit/L [facility]isol Chem ALT No additional P-5'-P [Catalytic activity/Vol] 26 [iU]/d Normal 6 - 46 Int._Unit/L [facility] Anion gap [Moles/Vol] 10 mmol/L Normal 6 - 16 mEq/L [facility] AST [Catalytic activity/Vol] 16 [iU]/d Normal 5 - 43 Int._Unit/L [facility] Bilirubin [Mass/Vol] 0.7 mg/dL Normal 0.0 - 1 .1 mg/dL [facility] Bilirubin.direct [Mass/Vol] 0.1 mg/dL Normal 0.0 - 0.4 mg/dL [facility] Bilirubin.indirect [Mass or moles/Vol] 0.6 mg/dL Normal 0.1 - 0.9 mg/dL [facility] Calcium [Mass/Vol] 9.4 mg/dL Normal 8.9 - 11. 1 mg/dL [facility] Chloride [Moles/Vol] 104 mmol/L Normal 101 - 1 11 mmol/L [facility] CO2 [Moles/Vol] 28 mmol/L Normal 21 - 31 mmol/L [facility] Creatinine [Mass/Vol] 0.6 mg/dL Normal 0.5 - 1.3 mg/dL [facility] eGFR 127 mL/min/1.73 m2 Normal >=59mL/mi n/ 1.73 m2 [facility] Globulin (S) [Mass/Vol] 2.7 g/dL Normal 1.4 - 4.0 gm/dL [facility] Glucose [Mass/Vol] 93 mg/dL Normal 55 - 199 mg/dL [facility] Lipase [Catalytic activity/Vol] 6 U/L Low 13 - 58 unit/L [facility] Potassium [Moles/Vol] 4.2 mmol/L Normal 3.5 - 5.3 mmol/L [facility] Protein [Mass/Vol] 7.0 g/dL Normal 6.0 - 7.8 gm/dL [facility] Sodium [Moles/Vol] 138 mmol/L Normal 135 - 145 mmol/L [facility] Urea nitrogen [Mass/Vol] 15 mg/dL Normal 5 - 21 mg/dL [facility] Urea nitrogen/Creatinine [Mass ratio] 25 mg/mg High 10 - 20 [facility] ED Clinical Summaryon 2023 ED Clinical Summary ED Clinical Summary [place] [id number] ED Clinical Summary Person Information Name: SOCORRO JOSEPH [facility] Age: 23 Years : 2000 Sex: Female Language: Nepalese PCP: Raquel Nolan MD Marital Status: Single Visit Id: Visit Reason: Nausea; Abdominal pain; NAUSEA, ABDOMINAL PAIN Speciality: Acuity: 3 Enc Type: Emergency Med Service: Emergency Arrival: 03/20/2024 07:17:01 Discharge: 03/20/2024 09:23:43 LOS: 000 02:06 Checkin: 03/20/2024 07:17:01 Checkout: 03/20/2024 09:23:43 Dispo Type: Home (Routine DC) EVENTS: Event Name Event Status Request Date/Time Start Date/Time Complete Date/Time Arrive Complete 03/20/2024 07:17:01 03/20/2024 07:17:01 03/20/2024 07:17:01 Document Home Meds Request 03/20/2024 07:17:01 Triage Complete 03/20/2024 07:17:01 03/20/2024 07:23:48 03/20/2024 07:23:48 Bed Assign Complete 03/20/2024 07:19:50 03/20/2024 07:19:50 03/20/2024 07:19:50 Dr Exam Complete 03/20/2024 07:19:50 03/20/2024 07:21:25 03/20/2024 07:21:25 RN Exam Complete 03/20/2024 07:19:50 03/20/2024 07:36:37 03/20/2024 07:36:37 Registration Complete 03/20/2024 07:20:08 03/20/2024 07:20:08 03/20/2024 07:20:08 Reg Complete Request 03/20/2024 07:20:08 Reg Bed Request Complete 03/20/2024 07:20:09 03/20/2024 07:20:09 03/20/2024 07:20:09 Registration Request 03/20/2024 07:21:25 Pending Labs Complete 03/20/2024 07:28:08 03/20/2024 07:53:33 Lab Complete 03/20/2024 07:28:08 03/20/2024 07:52:34 Urine Collect Complete 03/20/2024 07:28:08 03/20/2024 07:52:34 Dr Exam Complete 03/20/2024 07:29:21 03/20/2024 07:29:21 03/20/2024 07:29:21 X-Ray Complete 03/20/2024 07:33:37 03/20/2024 07:59:19 03/20/2024 08:14:40 Pending Labs Complete 03/20/2024 07:33:37 03/20/2024 08:29:25 Lab Complete 03/20/2024 07:33:37 03/20/2024 08:29:25 Meds Admin Complete 03/20/2024 07:38:21 03/20/2024 08:01:13 Pending Labs Complete 03/20/2024 08:01:58 03/20/2024 08:01:58 03/20/2024 08:29:25 Lab Complete 03/20/2024 08:01:58 03/20/2024 08:01:58 03/20/2024 08:29:25 Wet Read Complete 03/20/2024 08:14:40 03/20/2024 08:17:07 03/20/2024 08:17:07 Pending Labs Complete 03/20/2024 08:36:32 03/20/2024 08:36:32 03/20/2024 08:36:33 Discharge Complete 03/20/2024 09:16:34 03/20/2024 09:23:46 03/20/2024 09:23:46 Transfer Complete 03/20/2024 09:23:46 03/20/2024 09:23:46 03/20/2024 09:23:46 ADDRESS: [address] [place] [phone] PHYS DOC NOTES: MEDICAL INFORMATION: Prescriptions Given: New Medications [facility], [address] [place] [id number], [phone] amoxicillin-clavulana te (Augmentin 875 mg oral tablet) 1 Tablets By Mouth every 12 hours for 10 Days. Refills: 0. dextromethorphan-prom ethazine (dextromethorphan-pro methazine 15 mg-6.25 mg/5 mL Oral Syrup 5 mL) 5 Milliliter By Mouth every 6 hours as needed for cough for 5 Days. Refills: 0. Medications to Continue with No Changes Other Medications brompheniramine/dextr omethorphan/PSE (Bromfed DM oral syrup) 10 Milliliter By Mouth 4 times a day for 5 Days. Refills: 0. PATIENT EDUCATION INFORMATION: Instructions: Cough, Adult; Abdominal Pain, Adult Follow up: With: Address: When: Raquel [place] [address] Business (1) In 3 days 03/23/2024 DIAGNOSIS: Abdominal pain; Cough Normal [facility] ED Patient Summaryon ED Patient Summary ED Patient Summary [address] [address] Patient Discharge Instructions Person Information Name: SOCORRO JOSEPH Age: 23 Years Arrival Date: 03/20/2024 07:17:01 Discharge Diagnosis: Abdominal pain; Cough Primary Care Physician: Raquel Nolan MD Provider Information Primary Provider: Roque Harris DO Advanced Promotional Marketing Agent:Heri Lazcano PA-C The exam and treatment you received in the Emergency Department were for an urgent problem and are not intended as complete care. It is important that you follow up with a doctor, nurse practitioner, or physician???s tmd teacher assistant for ongoing care. If your symptoms [...] With: Address: When: Raquel [address] [place], [place] [id number] Business (1) In 3 days 03/23/2024 In the event that this physician does not participate in your insurance network, please consult with your insurance company to find a nearby participating provider. Patient Education Materials: Cough, Adult; Abdominal Pain, Adult A MESSAGE TO ALL PATIENTS REGARDING OPIOIDS PRESCRIPTION OPIOIDS: WHAT YOU NEED TO KNOW Prescription opioids can be used to help relieve npvvzbtg-jm-kfskso pain and are often prescribed following a [...] as well, even when taken as directed: ??? Tolerance???meaning you might need to take more of the medication for the same pain relief ??? Physical dependence???meaning you have symptoms of withdrawal when a medication is stopped ??? Increased sensitivity to pain ??? Constipation ??? Nausea, vomiting, and dry mouth ??? Sleepiness and dizziness ??? Confusion ??? Depression ??? Low levels of testosterone that can result in lower sex drive, energy, and strength ??? Itching and sweating RISKS ARE GREATER WITH: ??? History of drug misuse, substance use disorder, or overdose ??? Mental health conditions (such as depression or anxiety) ??? Sleep apnea ??? Older age (65 years and older) ??? Avoid alcohol while taking prescription opioids. Also, unless specifically advised by your health care provider, medications to avoid include: ??? Benzodiazepines (such as Xanax or Valium) ??? Muscle relaxants (such as Soma or Flexeril) ??? Hypnotics (such as Ambien or Lunesta) ??? Other prescription opioids KNOW YOUR OPTIONS Talk to your health care provider about ways to manage your pain that don???t involve prescription opioids. Some of these options may actually work better and have fewer risks and side effects. Options may include: ??? Pain relievers such as acetaminophen, ibuprofen, and naproxen ??? Some medication that are also used for depression or seizures ??? Physical therapy and exercise ??? Cognitive behavioral therapy, a psychological, goal-directed approach, in which patients learn how to modify physical, behavioral, and emotional triggers of pain and stress. IF YOU ARE PRESCRIBED OPIOIDS FOR PAIN: ??? Never take opioids in greater amounts or more often than prescribed. ??? Follow up with your primary health care provider. o Work together to create a plan on how to manage your pain. o Talk about ways to help manage your pain that don???t involve prescription opioids. o Talk about any and all concerns and side effects. ??? Help prevent misuse and abuse o Never sell or share prescription opioids. o Never use another person???s prescription opioids. ??? Store prescription opioids in a secure place and out of reach of others (this may include visitors, children, friends, and family). ??? Safely dispose of unused prescription opioids: Find your community drug take-back program or your pharmacy mail-back program, or flush them down the toilet, following guidance from the Food and Drug Administration (www.fda.gov/Drugs/Re sourcesForYou). ??? Visit www.cdc.gov/drugoverd ose to learn about the risks of opioids abuse and overdose. ??? If you believe you may be struggling with addiction, tell your health care (more content not included)... [facility] Extra Blueon 12-16-2024 Tube Collected Plasma Yes Invalid Interpretation Code [facility] Comment on above: Performed By: #### 1 [id number] #### [facility] Laboratory [address] [place] [address] HEMATOLOGYOrdered By: Bruna San on 03-20-2024 Basophils/100 WBC (Bld) 0.7 % Normal 0.0 - 2.0 % Remisol Heme Basophils/Leukocytes Auto (Bld) [Pure # fraction] 0.1 E9/L Normal 0.0 - 0.2 E9/L Remisol Heme Eosinophils (Bld) [#/Vol] 0.3 E9/L Normal 0.0 - 0.5 E9/L Remisol Heme Eosinophils/100 WBC (Bld) 3.9 % Normal 0.0 - 8.0 % Remisol Heme Erythrocyte distribution width (RBC) [Ratio] 12.7 % Normal 10.9 - 14.2 % Remisol Heme Hematocrit (Bld) [Volume fraction] 38.7 % Normal 34.0 - 46.0 % Remisol Heme Hemoglobin (Bld) [Mass/Vol] 13.4 g/dL Normal 12.0 - 16.0 gm/dL Remisol Heme Lymphocytes (Bld) [#/Vol] 2.2 E9/L Normal 1.0 - 4.0 E9/L Remisol Heme Lymphocytes/100 WBC (Bld) 31.7 % Normal 14.0 - 50.0 % Remisol Heme MCH (RBC) [Entitic mass] 32.2 pg Normal 27. 0 - 34.0 pg Remisol Heme MCHC (RBC) [Mass/Vol] 34.5 g/dL Normal 31.4 - 36.0 gm/dL Remisol Heme MCV (RBC) [Entitic vol] 93.1 fL Normal 80.0 - 100.0 fL Remisol Heme Monocytes (Bld) [#/Vol] 0.5 E9/L Normal 0.2 - 1.0 E9/L Remisol Heme Monocytes/100 WBC (Bld) 6.9 % Normal 4.0 - 14.0 % Remisol Heme Neutrophils (Bld) [#/Vol] 4.0 E9/L Normal 2.0 - 7.5 E9/L Rem[facility] Heme Neutrophils/100 WBC (Bld) 56.8 % Normal 36.0 - 75.0 % [facility] Heme Platelet mean volume (Bld) [Entitic vol] 8.6 fL Normal 6.4 - 10.8 fL Rem[facility] Heme Platelets (Bld) [#/Vol] 264.0 E9/L Normal 150. 0 - 500.0 E9/L Rem[facility] Heme RBC (Bld) [#/Vol] 4.2 E12/L Low 4.3 - 5.9 E12/L [facility] Heme WBC corrected for nucl RBC Auto (Bld) [#/Vol] 7.0 E9/L Normal 4.0 - 11.0 E9/L Remisol Heme Hep Func Panelon 03-20-2024 Albumin [Mass/Vol] 4.3 g/dL Normal 3.3-5.0 [facility] Comment on above: Performed By: #### 2 [id number] #### [facility] [address] [place] [address] Albumin/Globulin (S) [Mass conc ratio] 1.6 Normal 1.1-2.2 [facility] Comment on above: Performed By: #### 2 [id number] #### [facility] [address] [place] [address] ALP [Catalytic activity/Vol] 110 Int._Unit/L High 21-98 [facility] Comment on above: Performed By: #### 2 [id number] #### [facility] [address] [place] [address] ALT No additional P-5'-P [Catalytic activity/Vol] 26 Int._Unit/L Normal 6-46 [facility] Comment on above: Performed By: #### 2 [id number] #### [facility] [address] [place] [address] AST [Catalytic activity/Vol] 16 Int._Unit/L Normal 5-43 [facility] Comment on above: Performed By: #### 2 [id number] #### [facility] [address] [place] [address] Bilirubin [Mass/Vol] 0.7 mg/dL Normal 0.0-1.1 [facility] Comment on above: Performed By: #### 2 [id number] #### [facility] [address] [place] [address] Bilirubin.direct [Mass/Vol] 0.1 mg/dL Normal 0.0-0.4 [facility] Comment on above: Performed By: #### 2 [id number] #### [facility] [address] [place] [address] Bilirubin.indirect [Mass or moles/Vol] 0.6 mg/dL Normal 0.1-0.9 [facility] Comment on above: Performed By: #### 2 [id number] #### [facility] [address] [place] [address] Globulin (S) [Mass/Vol] 2.7 g/dL Normal 1.4-4.0 [facility] Comment on above: Performed By: #### 2 [id number] #### [facility] [address] [place] [address] Protein [Mass/Vol] 7.0 g/dL Normal 6.0-7.8 [facility] Comment on above: Performed By: #### 2 [id number] #### [facility] [address] [place] [address] Lipase Levelon 03-20-2024 Lipase [Catalytic activity/Vol] 6 U/L Low 13-58 [facility] Comment on above: Performed By: #### 2 [id number] #### [facility] [address] [id number] SEROLOGYOrdered By: Radha kumar on 03-20-2024 HCG.beta subunit (U) [Moles/Vol] Negative Normal [facility] Man Sero U BetaHcg Qualon 03-20-2024 HCG.beta subunit (U) [Moles/Vol] Negative Normal [facility] Comment on above: Performed By: #### 2 [id number] #### [facility] [address] [place] [address] UA with Cult Rflxon 12-16-20 24 Bacteria Auto Ql (U) Trace Normal Trace Fish er [facility] Comment on above: Performed By: #### 4 [id number] #### [facility] [address] [place] [address] Bilirubin Ql (U) Negative Normal Negative [facility] Comment on above: Performed By: #### 4 [id number] #### [facility] [address] [place] [address] Clarity (U) Clear Normal Clear [facility] Comment on above: Performed By: #### 4 [id number] #### [facility] [address] [place] [address] Color (U) Yellow Normal Yellow [facility] Comment on above: Result Comment: Micr oscopic readings are only performed on those samples that meet specific criteria set forth by [facility]. Performed By: #### 4 [id number] #### [facility] [address] [place] [address] Epithelial cells.squamous Auto (Urine sed) [#/Area] 3-4 Invalid Interpretation Code [facility] Comment on above: Performed By: #### 4 [id number] #### [facility] [address] [place] [address] Glucose Ql (U) Negative Normal Negative [facility] Comment on above: Performed By: #### 4 [id number] #### [facility] [address] [place] [address] Hemoglobin Auto test strip (U) [Mass/Vol] 3+ mg/dL Abnormal Negative [facility] Comment on above: Performed By: #### 4 [id number] #### [facility] [address] [place] [address] Ketones Auto test strip Ql (U) Negative Normal Negative [facility] Comment on above: Performed By: #### 4 [id number] #### [facility] [address] [place] [address] Leukocyte esterase Auto test strip Ql (U) Negative Normal Negative [facility] Comment on above: Performed By: #### 4 [id number] #### [facility] [address] [place] [address] Mucus Auto Ql (U) Trace Normal Negative [facility] Comment on above: Performed By: #### 4 [id number] #### [facility] [address] [place] [address] Nitrite Auto test strip Ql (U) Negative Normal Negative [facility] Comment on above: Performed By: #### 4 [id number] #### [facility] [address] [place] [address] pH (U) 7.5 [pH] Invalid Interpretation Code 5.0-9.0 [facility] Comment on above: Performed By: #### 4 [id number] #### [facility] [address] [place] [address] Protein Ql (U) Negative Normal Negative [facility] Comment on above: Performed By: #### 4 [id number] #### [facility] [address] [place] [address] RBC Ql (U) 4-20 Abnormal 0-3 [facility] Comment on above: Performed By: #### 4 [id number] #### [facility] [address] [place] [address] Specific gravity (U) [Rel density] 1.012 Invalid Interpretation Code 1.005-1.030 [facility] Comment on above: Performed By: #### 4 [id number] #### [facility] [address] [place] [address] Urobilinogen (U) [Mass/Vol] Negative Normal Negative [facility] Comment on above: Performed By: #### 4 [id number] #### [facility] [address] [place] [address] WBC Auto (Urine sed) [#/Area] 0-5 Normal 0-5 [facility] Comment on above: Performed By: #### 4 [id number] #### [facility] [address] [place] [address] Type of Urine collection method Clean Catch Normal [facility] Comment on above: Performed By: #### 4 [id number] #### [facility] [address] [place] [address] URINALYSISOrdered By: SYSTEM SYSTEM on 03-20-2024 Bacteria Auto Ql (U) Trace /HPF Normal Trace/HPF [facility] UA Auto SS Bilirubin Ql (U) Negative Normal Negativemg/ dL [facility] UA Auto SS Clarity (U) Clear (03/20/24 7:29 AM) Normal Clear [facility] UA Auto SS Color (U) Yellow 1 (03/20/24 7:29 AM) Normal Yellow [facility] UA Auto SS Comment on above: Interpretive Data: M icroscopic readings are only performed on those samples that meet specific criteria set forth by [facility]. Epithelial cells.squamous Auto (Urine sed) [#/Area] 3-4 graded/HPF Invalid Interpretation Code [facility] UA Auto SS Glucose Ql (U) Negative Normal Negativemg/ dL [facility] UA Auto SS Hemoglobin Auto test strip (U) [Mass/Vol] 3+ mg/dL Invalid Interpretation Code Negativemg/ dL [facility] UA Auto SS Ketones Auto test strip Ql (U) Negative Normal Negativemg/ dL [facility] UA Auto SS Leukocyte esterase Auto test strip Ql (U) Negative Normal NegativeLeu /uL [facility] UA Auto SS Mucus Auto Ql (U) Trace graded/LPF Normal Negati vegra ded/LPF [facility] UA Auto SS Nitrite Auto test strip Ql (U) Negative Normal Negativemg/ dL [facility] UA Auto SS pH (U) 7.5 *NA* (03/20/24 7:29 AM) Invalid Interpretation Code 5.0 - 9.0 [facility] UA Auto SS Protein Ql (U) Negative Normal Negativemg/ dL [facility] UA Auto SS RBC Ql (U) 4-20 graded/HPF Invalid Interpretation Code 0-3graded/H PF [facility] UA Auto SS Specific gravity (U) [Rel density] 1.012 *NA* (03/20/24 7:29 AM) Invalid Interpretation Code 1.005 - 1.030 [facility] UA Auto SS Urobilinogen (U) [Mass/Vol] Negative Normal Negativemg/ dL [facility] UA Auto SS WBC Auto (Urine sed) [#/Area] 0-5 graded/HPF Normal 0-5graded/H PF [facility] UA Auto SS URINALYSISOrdered By: Blanca Tellez on 03-20-2024 UA Spec Desc Clean Catch (03/20/24 7:29 AM) Normal [facility] UA Auto SS XR Abdomen Series w/ Chest 1 Viewon 03-20-2024 XR Abdomen Series w/ Chest 1 View Exam Date/Time: 03/20/2024 08:14 EST Reason for Exam: Abdominal pain Report IMPRESSION: No acute radiographic findings. EXAMINATION/TECHNIQUE : XR Abdomen Series w/ Chest 1 View HISTORY: Abdominal pain. Nausea. COMPARISON: Chest x-ray 03/15/2024. CT 06/29/2023. RESULT: No consolidation. No pleural effusion. No pneumothorax. Normal cardiomediastinal silhouette. No pneumoperitoneum. Nonspecific nondilated bowel gas pattern. No abnormal calcifications. No acute osseous findings. No other significant abnormality. Ordering Provider: Heri Lazcano FINAL REPORT Dictated: 03/20/2024 8:50 am Roque Vasques MD Signed (Electronic Signature): 03/20/2024 8:50 am Signed by: Roque Vasques MD Transcribed by: KEE Technologist: SANDER Technical Comments Radiation Dose: Ka,r in mGy = na DAP = na Normal [facility] eGFRon 03-20-2024 eGFR 127 mL/min/1.73 m2 Normal >=59 [facility] Comment on above: Performed By: #### 1 [id number] #### [facility] [address] [place] [address] Ambulatory Visit Summaryon 1 05-16-2023 Ambulatory Visit Summary Ambulatory Visi t Summary SOCORRO JOSEPH :2000 Visit Date:03/15/2024 Ambulatory Visit Instructions Your Diagnosis Exposure to pneumonia Cough Your Care Team Attending Physician - Alana VIEYRA, Charisse Primary Care Physician - Raquel Nolan MD This Is Your Medications List brompheniramine/dextr omethorphan/PSE (Bromfed DM oral syrup) Procedures Performed Insertion of IUD (07/18/2019), Tubal ligation. Discharge Vitals Temperature (Tympanic) 37 ???C Heart Rate (Peripheral) 88 Blood Pressure 112/68 Height 175 cm Height 69 in Weight 84 kg Weight 185.188 lb BMI 27.43 Medications What How Much When Why Instructions New brompheniramine/ dextromethorphan/ PSE (Bromfed DM oral syrup) 10 Milliliter By Mouth 4 times a day Exposure to pneumonia Cough Duration: 5 Days Pickup at [facility] 1985 Pharmacy Information [facility] 1985: [address], [place] [id number] [phone] Allergies No Known Allergies Problems Ongoing - Any problem that you are currently receiving treatment for. Depression Smoker Historical - Any problem that you are no longer receiving treatment for. Smoker Supervision of normal in second trimester Patient Survey You may receive a survey via text or e-mail asking about your office visit. Please share your experience with us by completing your survey. We appreciate your feedback and thank you for choosing us for your care. Normal [facility] Family Medicine Office/Clini c Noteon 03-15-2024 Family Medicine Office/Clinic Note Family Medicine Office/Clinic Note Chief Complaint cough HPI Staff 23 year old female presents with sore throat, cough, congestion, headache, ear pain, itchy eyes for the past day pt's daughter had pneumonia 2 weeks ago, pt's coworker currently has pneumonia dayquil, tylenol cold and flu History of Present Illness I have reviewed and verified the staff HPI to be accurate for this encounter. Portions of this record have been created with voice recognition software. Occasional wrong-word or ???[id number]-d-ihzh??? substitutions may have occurred due to the inherent limitations of voice recognition software. 23-year-old female presents with complaints of sore throat, cough, nasal congestion, ear pain, itchy eyes for the past 24 hours. Patient also wanted to let us know that her daughter had pneumonia 2 weeks ago and she has a coworker she has been exposed to that was recently diagnosed with pneumonia. She has been using kgbc-nuz-daavffj medications like DayQuil, Tylenol Cold and flu for her symptoms. Patient is agreeable to COVID testing in the office however would like a chest x-ray to rule out pneumonia due to her cough and feeling tired. Review of Systems PHQ Score Initial Depression Screen Score: 0 SCORE ROS negative unless otherwise stated in HPI. Physical Exam Vitals & Measurements T: 37 ???C(Tympanic) HR: 88(Peripheral) BP: 112/68 SpO2: 100% HT: 69 in HT: 175 cm WT: 84 kg WT: 185.188 lb BMI: 27.43 General: Well developed, well nourished, in no acute distress mildly ill-appearing Eyes: Pupils equal, round, and reactive to light. Conjunctivae and sclerae normal, and extraocular movements intact Ears: No deformity or lesion of external ear. Right ear tympanic membrane has fluid behind the tympanic membrane. Left ear appears normal. TMs not inflamed. Hearing grossly normal to conversational speech Nose: moderate nasal mucosa inflammation and edema clear nasal drainage Mouth: Mucous membranes moist. Normal oropharynx, and posterior pharynx without lesions or exudates. Tongue normal Neck: no adenopathy Lungs: clear diminished auscultation in the bases. no wheezing, no rales. No respiratory distress moist cough noted Cardio: regular rate and rhythm, no murmur Abdomen: not assessed Musculoskeletal: not assessed Extremity: not assessed Neurologic: not assessed Skin: No rashes, ulcerations, or suspicious lesions Mental Status: Alert and oriented x3. Normal mood and affect Assessment/Plan Due to her symptoms I feel she likely has a viral illness possibly COVID so she is agreeable to COVID testing in the office today. If that is negative patient is requesting chest x-ray due to exposure to pneumonia by her child and coworker. Rapid COVID test was negative in the office today. X-ray was also negative. Suggested she repeat home COVID test in 2 to 3 days as she has only had symptoms for 24 hours so may not be picking up viral load on rapid COVID test today. 1. Viral URI with cough (J06.9: Acute upper respiratory infection, unspecified) Discussed exam and hx are consistent with viral illness. Advised of typical duration. Discussed antibiotics unfortunately do not treat viral illnesses, it will take time to run course- usually 7-14 days. Fluids/rest encouraged, PRN tylenol/ibuprofen for any pain. May use prescribed Bromfed-DM for symptomatic tx. Follow up with PCP if not improving over next 3-5 days or significantly worsening symptoms. Patient and/or parent verbalized understanding of tx plan. 2. Exposure to pneumonia (Z20.89: Contact with and (suspected) exposure to other communicable diseases) Chest x-ray negative today Ordered: brompheniramine/dextr omethorphan/PSE, 10 mL, Oral, QID for 5 day(s), 200 mL, Refill(s) 0, [facility], 175, cm, 03/15/24 15:52:00 EST, Height/Length Dosing, 84, kg, 03/15/24 15:52:00 EST, Weight Dosing Rapid COVID POC 29365 XR Chest 2 Views Cough (R05.9: Cough, unspecified) Ordered: brompheniramine/dextr omethorphan/PSE, 10 mL, Oral, QID for 5 day(s), 200 mL, Refill(s) 0, [facility], 175, cm, 03/15/24 15:52:00 EST, Height/Length Dosing, 84, kg, 03/15/24 15:52:00 EST, Weight Dosing Rapid COVID POC 95618 XR Chest 2 Views Follow-up With When Contact Information An LOERA, Raquel [address] [place] [address]- Additional Instructions: Patient Education Cough, Adult, Nyxj-eo-Gvsl Viral Respiratory Infection, Jeai-Ve-Eicc Problem List/Past Medical History Ongoing Depression Smoker Historical Smoker Supervision of normal in second trimester Procedure/Surgical History Insertion of IUD (07/18/2019), Tubal ligation. Medications Bromfed DM oral syrup, 10 mL, Oral, QID Allergies No Known Allergies Social History Alcohol - Denies Alcohol Use, 06/29/2023 Liquor, 1-2 times per month, 06/16/2020 DENIES, Household alcohol concerns: No., 12/25/2019 Employment/School Employed, Highest education (more content not included)... Normal [facility] Comment on above: Result Comment: Elec tronically Signed By: Charisse Russell\.br\Date and Time Signed: 03/15/24 16:45 EST Family Medicine Office/Clinic Note Family Medicine Office/Clinic Note Chief Complaint cough HPI Staff 23 year old female presents with sore throat, cough, congestion, headache, ear pain, itchy eyes for the past day pt's daughter had pneumonia 2 weeks ago, pt's coworker currently has pneumonia dayquil, tylenol cold and flu Review of Systems PHQ Score Initial Depression Screen Score: 0 SCORE Physical Exam Vitals & Measurements T: 37 ???C(Tympanic) HR: 88(Peripheral) BP: 112/68 SpO2: 100% HT: 69 in HT: 175 cm WT: 84 kg WT: 185.188 lb BMI: 27.43 Assessment/Plan 1. Exposure to pneumonia (Z20.89: Contact with and (suspected) exposure to other communicable diseases) Ordered: brompheniramine/dextr omethorphan/PSE, 10 mL, Oral, QID for 5 day(s), 200 mL, Refill(s) 0, [facility], 175, cm, 03/15/24 15:52:00 EST, Height/Length Dosing, 84, kg, 03/15/24 15:52:00 EST, Weight Dosing Rapid COVID POC 81763 XR Chest 2 Views 2. Cough (R05.9: Cough, unspecified) Ordered: brompheniramine/dextr omethorphan/PSE, 10 mL, Oral, QID for 5 day(s), 200 mL, Refill(s) 0, [facility], 175, cm, 03/15/24 15:52:00 EST, Height/Length Dosing, 84, kg, 03/15/24 15:52:00 EST, Weight Dosing Rapid COVID POC 13383 XR Chest 2 Views Follow-up No qualifying data available Problem List/Past Medical History Ongoing Depression Smoker Historical Smoker Supervision of normal in second trimester Procedure/Surgical History Insertion of IUD (07/18/2019), Tubal ligation. Medications Bromfed DM oral syrup, 10 mL, Oral, QID Allergies No Known Allergies Social History Alcohol - Denies Alcohol Use, 06/29/2023 Liquor, 1-2 times per month, 06/16/2020 DENIES, [...] Sexually active: Yes., 11/01/2017 Substance Abuse - Denies Substance Abuse, 05/03/2019 DENIES, Household substance abuse concerns: No., 12/25/2019 Tobacco - High Risk, 06/16/2020 4 or less cigarettes(less than 1/4 pack)/day in last 30 days Tobacco Use:. Current vaping or e-cigarette use Smokeless Tobacco Use:. Cigarettes, Vaping, 03/15/2024 5-9 cigarettes (between 1/4 to 1/2 pack)/day in last 30 days Tobacco Use:. Current vaping or e-cigarette use Smokeless Tobacco Use:. Cigarettes, Vaping, 12/18/2022 5-9 cigarettes (between 1/4 to 1/2 pack)/day in last 30 days Tobacco Use:. Never Smokeless Tobacco Use:. Cigarettes, 7 per day. 4 year(s). Yes, 06/20/2020 Cigarettes, Vaping, 06/16/2020 Family History Diabetes mellitus type 2: Mother. Hypertension: Father. Immunizations Vaccine Date Status Comments influenza virus vaccine, inactivated - Not Given Contraindicated - Do not give tetanus toxoid 06/19/2019 [facility] influenza virus vaccine, live, trivalent - Not Given Patient Refuses diphtheria/pertussis, acel/tetanus adult 09/15/2017 Recorded meningococcal group B vaccine 01/27/2017 Recorded human papillomavirus vaccine 01/27/2017 Recorded hepatitis A pediatric vaccine 01/27/2017 Recorded human papillomavirus vaccine 11/26/2016 Recorded meningococcal conjugate vaccine 12/13/2015 Recorded diphtheria/pertussis, acel/tetanus adult 11/24/2010 Recorded measles/mumps/rubella virus vaccine 01/09/2004 Recorded DTaP, unspecified formulation 01/09/2004 Recorded poliovirus vaccine, inactivated 12/24/1999 Recorded measles/mumps/rubella virus vaccine 12/24/1999 Recorded haemophilus b conj (PRP-OMP) vaccine 12/24/1999 Recorded DTaP, unspecified formulation 12/24/1999 Recorded hepatitis B pediatric vaccine 04/30/1999 Recorded haemophilus b conj (PRP-OMP) vaccine 04/30/1999 Recorded DTaP, unspecified formulation 04/30/1999 Recorded poliovirus vaccine, inactivated 02/26/1999 Recorded haemophilus b conj (PRP-OMP) vaccine 02/26/1999 Recorded DTaP, unspecified formulation 02/26/1999 Recorded poliovirus vaccine, inactivated 1998 Recorded hepatitis B pediatric vaccine 1998 Recorded haemophilus b conj (PRP-OMP) vaccine 1998 Recorded DTaP, unspecified formulation 1998 Recorded hepatitis B pediatric vaccine 1998 Recorded Lab Results Ambulatory Point of Care Results Rapid Covid POC: Negative (03/15/24 16:31:00) Diagnostic Results (03/15/2024 16:25 EST XR Chest 2 Views) IMPRESSION: NO RADIOGRAPHIC EVIDENC (more content not included)... Normal [facility] Comment on above: Result Comment: Elec tronically Signed By: Charisse Russell\.br\Date and Time Signed: 03/15/24 16:37 EST XR Chest 2 Viewson XR Chest 2 Views Exam Date/Time: 03/15/2024 16:25 EST Reason for Exam: Cough Report IMPRESSION: NO RADIOGRAPHIC EVIDENCE OF ACUTE INTRATHORACIC PROCESS. EXAMINATION: XR Chest 2 Views HISTORY: Cough TECHNIQUE: Frontal and lateral views of the chest. COMPARISON: None available FINDINGS: Cardiomediastinal silhouette is within normal limits. No pneumothorax, pleural effusion, or consolidation. No acute osseous abnormality. Ordering Provider: Ann Warner FINAL REPORT Dictated: 03/15/2024 4:31 pm Jeff Rand DO Signed (Electronic Signature): 03/15/2024 4:31 pm Signed by: Jeff Rand DO Transcribed by: KEE Technologist: SRF Technical Comments Radiation Dose: Ka,r in mGy = na DAP = na Normal [facility] IGP,APTIMA HPV,AGE GDLNon AGE GDLN ACOG TESTING Note . [facility] Comment on above: TESTS RESULT FLAG UN ITS REF RANGE LAB Clinician Provided Cytology Information Source.............Cervix;Endocervix No. of containers..01 ThinPrep Vial Age Ricardo ALCAZAR Rebecca... FLAG LEGEND: L-Low Normal,H-High Normal,LL-Alert Low,HH-Alert High <-Panic Low,>-Panic High,A-Abnormal,AA-Critical Abnormal Performed at: 01 [address] [place] [address] Rosalia Harp MD, IGP, RFX APTIMA HPV ASCU Note . [facility] Comment on above: TESTS RESULT FLAG UN ITS REF RANGE LAB DIAGNOSIS: 02 NEGATIVE FOR INTRAEPITHELIAL LESION OR MALIGNANCY. Specimen adequacy: 02 Satisfactory for evaluation. No endocervical component is identified. Performed by: 02 Hillary Campa, Curatorial Assistant ([facility]) . 02 Note: Note 02 The Pap smear is a screening test designed to aid in the detection of premalignant and malignant conditions of the uterine cervix. It is not a diagnostic procedure and should not be used as the sole means of detecting cervical cancer. Both false-positive and false-negative reports do occur. Test Methodology: Note 02 This liquid based ThinPrep(R) pap test was screened with the use of an image guided system. . 02 The HPV DNA reflex criteria were not met with this specimen result therefore, no HPV testing was performed. FLAG LEGEND: L-Low Normal,H-High Normal,LL-Alert Low,HH-Alert High <-Panic Low,>-Panic High,A-Abnormal,AA-Critical Abnormal Performed at: [address] [address] Rosalia Harp MD, Performed at: =G - [facility] [address] [id number] Senior C Web Developer: Rosalia Harp MD, Phone: [phone] Performed at: - [address] [id number] Senior C Web Developer: Rosalia Harp MD, Phone: [phone] BRUSH-SPATULA CERVIX ENDOCERVIX [facility] CBC w/ Auto Diffon 4 Basophils/100 WBC (Bld) 0.5 % Normal 0.0-2.0 F [facility] Comment on above: Performed By: #### 2 [id number] #### [facility] [address] [place] [address] Basophils/Leukocytes Auto (Bld) [Pure # fraction] 0.0 E9/L Normal 0.0-0.2 [facility] Comment on above: Performed By: #### 2 923325 #### [facility] [address] [place] [address] Eosinophils (Bld) [#/Vol] 0.1 E9/L Normal 0.0-0.5 [facility] Comment on above: Performed By: #### 2 863516 #### [facility] [address] [place] [address] Eosinophils/100 WBC (Bld) 1.1 % Normal 0.0-8.0 [facility] Comment on above: Performed By: #### 2 641805 #### [facility] [address] [place] [address] Erythrocyte distribution width (RBC) [Ratio] 13.1 % Normal 10.9-14.2 [facility] Comment on above: Performed By: #### 2 265359 #### [facility] [address] [place] [address] Hematocrit (Bld) [Volume fraction] 39.5 % Normal 34.0-46.0 [facility] Comment on above: Performed By: #### 2 295893 #### [facility] [address] [place] [address] Hemoglobin (Bld) [Mass/Vol] 13.8 g/dL Normal 12.0-16.0 [facility] Comment on above: Performed By: #### 2 827683 #### [facility] [address] [place] [address] Lymphocytes (Bld) [#/Vol] 3.0 E9/L Normal 1.0-4.0 [facility] Comment on above: Performed By: #### 2 505014 #### [facility] [address] [place] [address] Lymphocytes/100 WBC (Bld) 46.0 % Normal 14.0-50.0 [facility] Comment on above: Performed By: #### 2 675887 #### [facility] [address] [place] [address] MCH (RBC) [Entitic mass] 32.4 pg Normal 27.0-34.0 [facility] Comment on above: Performed By: #### 2 454267 #### [facility] [address] [place] [address] MCHC (RBC) [Mass/Vol] 34.8 g/dL Normal 31.4-36.0 [facility] Comment on above: Performed By: #### 2 090298 #### [facility] [address] [place] [address] MCV (RBC) [Entitic vol] 93.0 fL Normal 80.0-100.0 F [facility] Comment on above: Performed By: #### 2 863860 #### [facility] [address] [place] [address] Monocytes (Bld) [#/Vol] 0.4 E9/L Normal 0.2-1.0 [facility] Comment on above: Performed By: #### 2 822547 #### [facility] [address] [place] [address] Neutrophils (Bld) [#/Vol] 3.0 E9/L Normal 2.0-7.5 [facility] Comment on above: Performed By: #### 2 456468 #### [facility] [address] [place] [address] Neutrophils/100 WBC (Bld) 46.2 % Normal 36.0-75.0 [facility] Comment on above: Performed By: #### 2 207601 #### [facility] [address] [place] [address] Platelet mean volume (Bld) [Entitic vol] 8.7 fL Normal 6.4-10.8 [facility] Comment on above: Performed By: #### 2 919726 #### [facility] [address] [place] [address] Platelets (Bld) [#/Vol] 254.0 E9/L Normal 150.0-500.0 [facility] Comment on above: Performed By: #### 2 650017 #### [facility] [address] [place] [address] RBC (Bld) [#/Vol] 4.3 E12/L Normal 4.3-5.9 [facility] Comment on above: Performed By: #### 2 131803 #### [facility] [address] [place] [address] WBC corrected for nucl RBC Auto (Bld) [#/Vol] 6.5 E9/L Normal 4.0-11.0 [facility] Comment on above: Performed By: #### 2 941261 #### [facility] [address] [place] [address] CHEMISTRYOrdered By: SYSTEM SYSTEM on 12-14-2023 Albumin [Mass/Vol] 4.7 g/dL Normal 3.3 - 5.0 gm/dL [facility] Albumin/Globulin [Mass ratio] 2.0 {ratio} Normal 1.1 - 2.2 [facility] ALP [Catalytic activity/Vol] 78 [iU]/d Normal 21 - 98 Int._Unit/L [facility] ALT No additional P-5'-P [Catalytic activity/Vol] 26 [iU]/d Normal 6 - 46 Int._Unit/L [facility] Anion gap [Moles/Vol] 8 mmol/L Normal 6 - 16 mEq/L [facility] AST [Catalytic activity/Vol] 17 [iU]/d Normal 5 - 43 Int._Unit/L [facility] Bilirubin [Mass/Vol] 0.6 mg/dL Normal 0.0 - 1 .1 mg/dL [facility] Calcium [Mass/Vol] 9.7 mg/dL Normal 8.9 - 11. 1 mg/dL [facility] Chloride [Moles/Vol] 104 mmol/L Normal 101 - 1 11 mmol/L [facility] Cholesterol [Mass/Vol] 198 mg/dL Normal 120 - 200 mg/dL [facility] Cholesterol in HDL [Mass/Vol] 37 mg/dL Invalid Interpretation Code [facility] Comment on above: Result Comment: '>= 60 LOW RISK' '<= 40 HIGH RISK' Cholesterol in LDL [Mass/Vol] 141 mg/dL High <=129mg/dL [facility] Cholesterol in VLDL [Mass/Vol] 62 mg/dL High 7 - 40 mg/dL [facility] CO2 [Moles/Vol] 30 mmol/L Normal 21 - 31 mmol/L [facility] Creatinine [Mass/Vol] 0.6 mg/dL Normal 0.5 - 1.3 mg/dL [facility] eGFR 128 mL/min/1.73 m2 Normal >=59mL/mi n/ 1.73 m2 [facility] Globulin (S) [Mass/Vol] 2.4 g/dL Normal 1.4 - 4.0 gm/dL [facility] Glucose [Mass/Vol] 102 mg/dL Normal 55 - 199 mg/dL [facility] Lipase [Catalytic activity/Vol] 13 U/L Normal 13 - 58 unit/L [facility] Potassium [Moles/Vol] 4.4 mmol/L Normal 3.5 - 5.3 mmol/L [facility] Protein [Mass/Vol] 7.1 g/dL Normal 6.0 - 7.8 gm/dL [facility] Sodium [Moles/Vol] 138 mmol/L Normal 135 - 145 mmol/L [facility] Triglyceride [Mass/Vol] 309 mg/dL High <=149mg/dL R [facility] TSH Qn 1.11 m[IU]/L Normal 0.34 - 5.60 mcIU/mL [facility] Urea nitrogen [Mass/Vol] 12 mg/dL Normal 5 - 21 mg/dL [facility] Urea nitrogen/Creatinine [Mass ratio] 20 mg/mg Normal 10 - 20 [facility] CHEMISTRYOrdered By: Angy Rdz on 12-14-2023 HbA1c (Bld) [Mass fraction] 4.9 % Normal <=5.9% [facility] ChemAutoSS CMPon 12-14-2023 Albumin [Mass/Vol] 4.7 g/dL Normal 3.3-5.0 [facility] Comment on above: Performed By: #### 2 [id number] #### [facility] [address] [place] [address] Albumin/Globulin (S) [Mass conc ratio] 2.0 Normal 1.1-2.2 [facility] Comment on above: Performed By: #### 2 732014 #### [facility] [address] [place] [address] ALP [Catalytic activity/Vol] 78 Int._Unit/L Normal 21-98 [facility] Comment on above: Performed By: #### 2 069584 #### [facility] [address] [place] [address] ALT No additional P-5'-P [Catalytic activity/Vol] 26 Int._Unit/L Normal 6-46 [facility] Comment on above: Performed By: #### 2 060224 #### [facility] [address] [place] [address] Anion gap [Moles/Vol] 8 mmol/L Normal 6-16 [facility] Comment on above: Performed By: #### 2 670569 #### [facility] [address] [place] [address] AST [Catalytic activity/Vol] 17 Int._Unit/L Normal 5-43 [facility] Comment on above: Performed By: #### 2 444568 #### [facility] [address] [place] [address] Bilirubin [Mass/Vol] 0.6 mg/dL Normal 0.0-1.1 [facility] Comment on above: Performed By: #### 2 253276 #### [facility] [address] [place] [address] Calcium [Mass/Vol] 9.7 mg/dL Normal 8.9-11.1 [facility] Comment on above: Performed By: #### 2 767206 #### [facility] [address] [place] [address] Chloride [Moles/Vol] 104 mmol/L Normal 101-111 [facility] Comment on above: Performed By: #### 2 378007 #### [facility] [address] [place] [address] CO2 [Moles/Vol] 30 mmol/L Normal 21-31 [facility] Comment on above: Performed By: #### 2 103762 #### [facility] [address] [place] [address] Creatinine [Mass/Vol] 0.6 mg/dL Normal 0.5-1.3 [facility] Comment on above: Performed By: #### 2 594619 #### [facility] [address] [place] [address] Globulin (S) [Mass/Vol] 2.4 g/dL Normal 1.4-4.0 [facility] Comment on above: Performed By: #### 2 414504 #### [facility] [address] [place] [address] Glucose [Mass/Vol] 102 mg/dL Normal 55-199 [facility] Comment on above: Performed By: #### 2 768343 #### [facility] [address] [place] [address] Potassium [Moles/Vol] 4.4 mmol/L Normal 3.5-5.3 [facility] Comment on above: Performed By: #### 2 003264 #### [facility] [address] [place] [address] Protein [Mass/Vol] 7.1 g/dL Normal 6.0-7.8 [facility] Comment on above: Performed By: #### 2 176931 #### [facility] [address] [place] [address] Sodium [Moles/Vol] 138 mmol/L Normal 135-145 [facility] Comment on above: Performed By: #### 2 006154 #### [facility] [address] [place] [address] Urea nitrogen [Mass/Vol] 12 mg/dL Normal 5-21 [facility] Comment on above: Performed By: #### 2 028174 #### [facility] [address] [place] [address] Urea nitrogen/Creatinine [Mass ratio] 20 No Units Normal 10-20 [facility] Comment on above: Performed By: #### 2 455101 #### [facility] [address] [place] [address] HEMATOLOGYOrdered By: SYSTEM SYSTEM on 12-14-2023 Basophils/100 WBC (Bld) 0.5 % Normal 0.0 - 2.0 % [facility] Basophils/Leukocytes Auto (Bld) [Pure # fraction] 0.0 E9/L Normal 0.0 - 0.2 E9/L [facility] Eosinophils (Bld) [#/Vol] 0.1 E9/L Normal 0.0 - 0.5 E9/L [facility] Eosinophils/100 WBC (Bld) 1.1 % Normal 0.0 - 8.0 % [facility] Erythrocyte distribution width (RBC) [Ratio] 13.1 % Normal 10.9 - 14.2 % [facility] Hematocrit (Bld) [Volume fraction] 39.5 % Normal 34.0 - 46.0 % [facility] Hemoglobin (Bld) [Mass/Vol] 13.8 g/dL Normal 12.0 - 16.0 gm/dL [facility] Lymphocytes (Bld) [#/Vol] 3.0 E9/L Normal 1.0 - 4.0 E9/L [facility] Lymphocytes/100 WBC (Bld) 46.0 % Normal 14.0 - 50.0 % [facility] MCH (RBC) [Entitic mass] 32.4 pg Normal 27. 0 - 34.0 pg [facility] MCHC (RBC) [Mass/Vol] 34.8 g/dL Normal 31.4 - 36.0 gm/dL [facility] MCV (RBC) [Entitic vol] 93.0 fL Normal 80.0 - 100.0 fL [facility] Monocytes (Bld) [#/Vol] 0.4 E9/L Normal 0.2 - 1.0 E9/L [facility] Monocytes/100 WBC (Bld) 6.2 % Normal 4.0 - 14.0 % [facility] Neutrophils (Bld) [#/Vol] 3.0 E9/L Normal 2.0 - 7.5 E9/L [facility] Neutrophils/100 WBC (Bld) 46.2 % Normal 36.0 - 75.0 % [facility] Platelet mean volume (Bld) [Entitic vol] 8.7 fL Normal 6.4 - 10.8 fL [facility] Platelets (Bld) [#/Vol] 254.0 E9/L Normal 150. 0 - 500.0 E9/L [facility] RBC (Bld) [#/Vol] 4.3 E12/L Normal 4.3 - 5.9 E12/L [facility] WBC corrected for nucl RBC Auto (Bld) [#/Vol] 6.5 E9/L Normal 4.0 - 11.0 E9/L [facility] KihG1oka 12-14-2023 HbA1c (Bld) [Mass fraction] 4.9 % Normal <=5.9 [facility] Comment on above: Performed By: #### 7 [id number] #### [facility] [address] [place] [address] Lipase Levelon 12-14-2023 Lipase [Catalytic activity/Vol] 13 U/L Normal 13-58 [facility] Comment on above: Performed By: #### 2 [id number] #### [facility] [address] [place] [address] Lipid Panelon 12-14-2023 Cholesterol [Mass/Vol] 198 mg/dL Normal 120-200 [facility] Comment on above: Performed By: #### 2 920783 #### [facility] [address] [place] [address] Cholesterol in HDL [Mass/Vol] 37 mg/dL Invalid Interpretation Code [facility] Comment on above: Result Comment: '>= 60 LOW RISK' '<= 40 HIGH RISK' Performed By: #### 2 718583 #### [facility] [address] [place] [address] Cholesterol in LDL [Mass/Vol] 141 mg/dL High <=129 [facility] Comment on above: Performed By: #### 2 099145 #### [facility] [address] [place] [address] Cholesterol in VLDL [Mass/Vol] 62 mg/dL High 7-40 [facility] Comment on above: Performed By: #### 2 796310 #### [facility] [address] [place] [address] Triglyceride [Mass/Vol] 309 mg/dL High <=149 [facility] Comment on above: Performed By: #### 2 555609 #### [facility] [address] [place] [address] TSHon 12-14-2023 TSH Qn 1.11 m[IU]/L Normal 0.34-5.60 [facility] Comment on above: Performed By: #### 2 633980 #### [facility] [address] [place] [address] eGFRon 12-14-2023 eGFR 128 mL/min/1.73 m2 Normal >=59 [facility] Comment on above: Order Comment: Order added by Discern Expert. Performed By: #### 1 [id number] #### [facility] [address] [place] [address] CT Abdomen/Pelvis w/ Contras ton 06-30-2023 CT [...] 300 Contrast amount in ml's: [address] [facility] [address] Head or Brain w/o Contras ton [...] M.D. Transcribed by: KEE Technologist: ABIGAIL Normal [facility] Discharge Instructionson Discharge Instructions [id number] #1.00TIFF Normal [facility] ED Clinical Summaryon 2023 ED Clinical Summary [place] [id number] ED Clinical Summary Person Information Name: SOCORRO JOSEPH [place] Age: 22 Years : 2000 Sex: Female Language: Nepalese PCP: Raquel Nolan MD Marital Status: Single [...] 06/30/2023 00:02:57 06/30/2023 00:02:57 06/30/2023 00:02:57 ADDRESS: [address] [place] [id number] PHYS DOC NOTES: MEDICAL INFORMATION: Prescriptions Given: New Medications [facility], [address] [place] [id number], [phone] methocarbamol (Robaxin 500 mg Tab) 1 Tablets By Mouth 3 times a day for 3 Days. Refills: 0. naproxen (Naprosyn 500 mg Tab) 1 Tablets By Mouth 2 times a day as needed for pain. Refills: 0. Medications to Continue Taking That Have Changed [facility] [address], [address] [place] [id number], [phone] START: ondansetron (Zofran ODT 4 mg Tab-Dis) 1 Tablets By Mouth every 8 hours. Refills: 0. Other Medications START: ondansetron (Zofran ODT 4 mg Tab-Dis) 1 Tablets By Mouth every 8 hours as needed Nausea/Vomiting. Refills: 0. PATIENT EDUCATION INFORMATION: Instructions: Nausea and Vomiting, Adult, Wfvl-tb-Ltur; General Headache Without Cause, Gezv-xh-Nvfz; Abdominal Pain, Adult, Givu-eh-Tykb Follow up: With: Address: When: Raquel Nolan [place] [address] Business (1) In 3 days 07/02/2023 Comments: You can take the medications as prescribed as needed for pain. Please follow-up with your primary care doctor in the next 2 to 3 days for further evaluation management. Please return to the ED for any new or worsening symptoms. DIAGNOSIS: Abdominal pain, acute; Headache; N&V (nausea and vomiting) Normal [facility] ED Patient Education Noteon 06-30-2023 ED Patient Education Note Gastroenterology Nausea and Vomiting, Adult Nausea is feeling [...] ? Low-calorie sports drinks. ? Eat bland, axeh-cj-ogidcq foods in small amounts as you are able, such as: ? Bananas. ? Applesauce. ? Rice. ? Low-fat (lean) meats. ? [place]. ? Crackers. ? Avoid drinking fluids that have a lot of sugar or caffeine in them. This includes energy drinks, sports drinks, and soda. ? Avoid alcohol. ? Avoid spicy or fatty foods. General instructions ? Take xbhk-lmi-qfwmgwu and prescription medicines only as told by your doctor. ? Drink enough fluid to keep your pee (urine) pale yellow. ? Wash your hands often with soap and water for at least 20 seconds. If you cannot use soap and water, use hand solar photovoltaic electrician. ? Make sure that everyone in your [...] doctor about eating and drinking. ? Take snrg-jkw-msvzqpw and prescription medicines only as told by [...] Reviewed: 09/26/2021 Elsevier Patient Education ? 2022 [employer] Abdominal Pain, Adult Many things can cause belly (abdominal) pain. Most times, belly pain is not dangerous. Many cases of belly pain can be watched and treated at home. Sometimes, though, belly pain is serious. Your doctor will try to find the cause of your belly pain. Follow these instructions at home: Medicines ? Take ruyh-oxv-nudrpld and prescription medicines only as told by [...] or y (more content not included)... Normal [facility] ED Patient Summaryon 024 ED Patient Summary [place] [id number] Patient Discharge Instructions Person Information Name: SOCORRO JOSEPH Age: 22 Years Arrival Date: 06/29/2023 19:10:29 Discharge Diagnosis: Abdominal pain, acute; Headache; N&V (nausea and vomiting) Primary Care Physician: Raquel Nolan MD Provider Information Primary Provider: Amberly Whitehead DO Advanced Promotional Marketing Agent:None The exam and treatment you received in the Emergency Department were for an urgent problem and are not intended as complete care. It is important that you follow up with a doctor, nurse practitioner, or physician?s tmd teacher assistant for ongoing care. If your symptoms [...] With: Address: When: [place] [place] [address] Business (1) In 3 days 07/02/2023 Comments: [...] Patient Education Materials: Nausea and Vomiting, Adult, Acjf-jh-Gazy; General Headache Without Cause, Uvwb-fr-Mokx; Abdominal Pain, Adult, Bfpr-ay-Szqb A MESSAGE TO ALL PATIENTS REGARDING OPIOIDS PRESCRIPTION OPIOIDS: WHAT YOU NEED TO KNOW Prescription opioids can be used to help relieve suzdzbva-iw-nhkqkl pain and are often prescribed following a [...] toilet, follow (more content not included)... Normal [facility] Prescriptions/Work Noteson 0 06-30-2023 Prescriptions/Work Notes [id number] #1.00TIFF [facility] RAD - Preliminary Cat Scan R eporton 06-30-2023 RAD - Preliminary Cat Scan Report [id number] #1.00TIFF [facility] B hCG Qualon 06-29-2023 Beta HCG ( test) Ql Negative [facility] Comment on above: Performed By: #### 2 488798, [id number], 9030356, 4367410, 36621039, 7224981 ####[facility] [address] [place] [address] BMPon 06-29-2023 Anion gap [Moles/Vol] 9 mmol/L Normal 6-16 [facility] Comment on above: Performed By: #### 2 176167, 01705255, 7440533, 1339733, 75194563, 1530264 ####[facility] [address] [place] [address] Calcium [Mass/Vol] 9.0 mg/dL Normal 8.9-11.1 [facility] Comment on above: Performed By: #### 2 322851, 49123812, 6578622, 9373161, 13179871, 5214340 ####[facility] [address] [place] [address] Chloride [Moles/Vol] 104 mmol/L Normal 101-111 [facility] Comment on above: Performed By: #### 2 590744, 23017134, 7503039, 7368757, 34732964, 4377127 ####[facility] [address] [place] [address] CO2 [Moles/Vol] 27 mmol/L Normal 21-31 [facility] Comment on above: Performed By: #### 2 487872, 60816041, 5936369, 5154915, 20911521, 3205361 ####[facility] [address] [place] [address] Creatinine [Mass/Vol] 0.7 mg/dL Normal 0.5-1.3 [facility] Comment on above: Performed By: #### 2 713652, 05396171, 3916751, 2967148, 66985450, 3322243 ####[facility] [address] [place] [address] Glucose [Mass/Vol] 93 mg/dL Normal 55-199 [facility] Comment on above: Performed By: #### 2 218198, 94647521, 2546301, 7510413, 57075362, 2157525 ####[facility] [address] [place] [address] Potassium [Moles/Vol] 3.7 mmol/L Normal 3.5-5.3 [facility] Comment on above: Performed By: #### 2 089561, 70639713, 4512486, 8369774, 47559317, 2305142 ####[facility] [address] [place] [address] Sodium [Moles/Vol] 136 mmol/L Normal 135-145 [facility] Comment on above: Performed By: #### 2 747755, 78851904, 1681795, 9205097, 95914638, 4568947 ####[facility] [address] [place] [address] Urea nitrogen [Mass/Vol] 13 mg/dL Normal 5-21 [facility] Comment on above: Performed By: #### 2 323783, 71815879, 7529760, 3076975, 34901954, 3597277 ####[facility] [address] [place] [address] Urea nitrogen/Creatinine [Mass ratio] 19 No Units Normal 10-20 [facility] Comment on above: Performed By: #### 2 468811, 74209232, 0103848, 2215082, 45731266, 3038698 ####[facility] [address] [place] [address] CBC w/ Auto Diffon 4 Basophils/100 WBC (Bld) 0.3 % Normal 0.0-2.0 F [facility] Comment on above: Order Comment: Per eva Salter, wait to poke until they try for an IV. [id number] 06/29/2023 21:16:35 EDT Performed By: #### 2 203999, 32543976, 9240965, 2648919, 34714059, 4881704 ####[facility] [address] [place] [address] Basophils/Leukocytes Auto (Bld) [Pure # fraction] 0.0 E9/L Normal 0.0-0.2 [facility] Comment on above: Order Comment: Per eva Salter, wait to poke until they try for an IV. [id number] 06/29/2023 21:16:35 EDT Performed By: #### 2 353837, 47075634, 0451221, 8996260, 28535621, 7327090 ####[facility] [address] [place] [address] Eosinophils (Bld) [#/Vol] 0.1 E9/L Normal 0.0-0.5 [facility] Comment on above: Order Comment: Per eva Salter, wait to poke until they try for an IV. [facility] 06/29/2023 21:16:35 EDT Performed By: #### 2 924692, 35724946, 0463296, 4568720, 97490725, 4252547 ####[facility] [address] [place] [address] Eosinophils/100 WBC (Bld) 1.2 % Normal 0.0-8.0 [facility] Comment on above: Order Comment: Per eva Salter, wait to poke until they try for an IV. [facility] 06/29/2023 21:16:35 EDT Performed By: #### 2 813628, 44720723, 2125553, 9100955, 34436314, 2537409 ####[facility] [address] [place] [address] Erythrocyte distribution width (RBC) [Ratio] 13.1 % Normal 10.9-14.2 [facility] Comment on above: Order Comment: Per eva Salter, wait to poke until they try for an IV. [facility] [facility] 06/29/2023 21:16:35 EDT Performed By: #### 2 176329, 60053555, 1674726, 3687997, 42834877, 8750642 ####[facility] [address] [place] [address] Hematocrit (Bld) [Volume fraction] 39.6 % Normal 34.0-46.0 [facility] Comment on above: Order Comment: Per eva Salter, wait to poke until they try for an IV. [facility] 06/29/2023 21:16:35 EDT Performed By: #### 2 391259, 39337386, 6624744, 8440263, 64470880, 0471978 ####[facility] [address] [place] [address] Hemoglobin (Bld) [Mass/Vol] 13.2 g/dL Normal 12.0-16.0 [facility] Comment on above: Order Comment: Per eva Salter, wait to poke until they try for an IV. [id number] 06/29/2023 21:16:35 EDT Performed By: #### 2 370086, 41781015, 2916247, 1891499, 36958155, 2626566 ####[facility] [address] [place] [address] Lymphocytes (Bld) [#/Vol] 2.0 E9/L Normal 1.0-4.0 [facility] Comment on above: Order Comment: Per eva Salter, wait to poke until they try for an IV. [id number] 06/29/2023 21:16:35 EDT Performed By: #### 2 837319, 95044429, 8622701, 6445367, 98327254, 8526048 ####[facility] [address] [place] [address] Lymphocytes/100 WBC (Bld) 22.0 % Normal 14.0-50.0 [facility] Comment on above: Order Comment: Per eva Salter, wait to poke until they try for an IV. [id number] 06/29/2023 21:16:35 EDT Performed By: #### 2 818477, 48669692, 2588790, 0053374, 17376709, 4074691 ####[facility] [address] [place] [address] MCH (RBC) [Entitic mass] 30.7 pg Normal 27.0-34.0 [facility] Comment on above: Order Comment: Per eva Salter, wait to poke until they try for an IV. [id number] 06/29/2023 21:16:35 EDT Performed By: #### 2 707300, 85110860, 6314126, 1754050, 83091700, 5453183 ####[facility] [address] [place] [address] MCHC (RBC) [Mass/Vol] 33.3 g/dL Normal 31.4-36.[address] [facility] Comment on above: Order Comment: Per eva Salter, wait to poke until they try for an IV. [id number] 06/29/2023 21:16:35 EDT Performed By: #### 2 893145, 48766367, 9262336, 8066490, 20313187, 5348218 ####[facility] [address] [place] [address] MCV (RBC) [Entitic vol] 91.9 fL Normal 80.0-100.0 F [facility] Comment on above: Order Comment: Per eva Salter, wait to poke until they try for an IV. [id number] 06/29/2023 21:16:35 EDT Performed By: #### 2 568397, 86581014, 2926125, 6454220, 91880397, 3054774 ####[facility] [address] [place] [address] Monocytes (Bld) [#/Vol] 0.4 E9/L Normal 0.2-1.0 [facility] Comment on above: Order Comment: Rakan Salter, wait to poke until they try for an IV. [id number] 06/29/2023 21:16:35 EDT Performed By: #### 2 131624, 04120248, 3408401, 0011139, 08942280, 3087956 ####[facility] [address] [place] [address] Neutrophils (Bld) [#/Vol] 6.5 E9/L Normal 2.0-7.5 [facility] Comment on above: Order Comment: Rakan Salter, wait to poke until they try for an IV. [id number] 06/29/2023 21:16:35 EDT Performed By: #### 2 753806, 55438163, 0819100, 5101946, 45186643, 3459888 ####[facility] [address] [place] [address] Neutrophils/100 WBC (Bld) 71.9 % Normal 36.0-75.0 [facility] Comment on above: Order Comment: Per eva Salter, wait to poke until they try for an IV. [facility] 06/29/2023 21:16:35 EDT Performed By: #### 2 086827, 62179063, 2051055, 8588876, 58927931, 0503723 ####[facility] [address] [place] [address] Platelet 216.0 E9/L Normal 150.0-500.0 [facility] Comment on above: Order Comment: Per eva Salter, wait to poke until they try for an IV. [facility] 06/29/2023 21:16:35 EDT Performed By: #### 2 896482, 26816985, 2492791, 6554259, 97138366, 7157581 ####[address] [address] Platelet mean volume (Bld) [Entitic vol] 8.2 fL Normal 6.4-10.8 [facility] Comment on above: Order Comment: Per eva Salter, wait to poke until they try for an IV. [facility] 06/29/2023 21:16:35 EDT Performed By: #### 2 919445, 60639415, 1066363, 9752576, 93754308, 7959874 ####[address] [address] RBC (Bld) [#/Vol] 4.3 E12/L Normal 4.3-5.9 [facility] Comment on above: Order Comment: Per eva Salter, wait to poke until they try for an IV. [facility] 06/29/2023 21:16:35 EDT Performed By: #### 2 636148, 43074237, 7911838, 8637656, 53513115, 3555694 ####[facility] [address] [place] [address] WBC corrected for nucl RBC Auto (Bld) [#/Vol] 9.0 E9/L Normal 4.0-11.0 [facility] Comment on above: Order Comment: Per eva Salter, wait to poke until they try for an IV. [id number] 06/29/2023 21:16:35 EDT Performed By: #### 2 757809, 35552396, 5914728, 6707180, 95305862, 1332513 ####[facility] [address] [place] [address] CHEMISTRYOrdered By: SYSTEM SYSTEM on 06-29-2023 Albumin [...] for Treatmenton 06-04 Consent for Treatment [id number] Normal [facility] ED Note-Physicianon 06-29-19 ED Note-Physician Basic Information Time Seen: Amberly Whitehead DO Néstor 06/29/2023 20:05 Chief Complaint Pt. reports headache [...] and Complexity of Problems Differential Diagnosis: [] [facility] Data External documents reviewed: [] My [...] discharge home. She is discharged home with Naprosyn, Robaxin in addition to Zofran. She is [...] day(s), # 9 tab(s), Refills(s) 0, [facility], [facility], cm, 06/29/23 19:28:00 EDT, Height/Length Dosing, 82, kg, 06/29/23 19:28:00 EDT, Weight Dosing metoclopramide, 10 mg = 2 mL, Injection, IV Push, Once, Stop date 06/29/23 21:00:00 EDT, STAT, Start date 06/29/23 21:00:00 EDT, 06/29/23 21:00:00 EDT naproxen, 500 mg = 1 tab(s), Oral, BID, PRN for pain, # 20 tab(s), Refills(s) 0, [facility], 175, cm, 06/29/23 19:28:00 EDT, Height/Length Dosing, 82, kg, 06/29/23 19:28:00 EDT, Weight Dosing ondansetron, 4 mg = 1 tab(s), Oral, q8hr, # 12 tab(s), Refills(s) 0, [facility], 175, cm, 06/29/23 19:28:00 EDT, [...] Cult Rfl (more content not included)... Normal [facility] Comment on above: Result Comment: Elec tronically Signed By: Amberly Whitehead DO\.br\Date and Time Signed: 06/29/23 23:56 EDT HEMATOLOGYOrdered By: SYSTEM SYSTEM on 06-29-2023 Basophils/100 WBC (Bld) 0.3 % Normal 0.0 - 2.0 % Rem[facility]e Basophils/Leukocytes Auto (Bld) [Pure # fraction] 0.0 E9/L Normal 0.0 - 0.2 E9/L [facility] Eosinophils (Bld) [#/Vol] 0.1 E9/L Normal 0.0 - 0.5 E9/L [facility] Eosinophils/100 WBC (Bld) 1.2 % Normal 0.0 - 8.0 % [facility] Erythrocyte distribution width (RBC) [Ratio] 13.1 % Normal 10.9 - 14.2 % [facility] Hematocrit (Bld) [Volume fraction] 39.6 % Normal 34.0 - 46.0 % [facility] Hemoglobin (Bld) [Mass/Vol] 13.2 g/dL Normal 12.0 - 16.0 gm/dL [facility] Lymphocytes (Bld) [#/Vol] 2.0 E9/L Normal 1.0 - 4.0 E9/L [facility] Lymphocytes/100 WBC (Bld) 22.0 % Normal 14.0 - 50.0 % [facility] MCH (RBC) [...] Heme Neutrophils (Bld) [#/Vol] 6.5 E9/L Normal 2.0 - 7.5 E9/L [facility] Neutrophils/100 WBC (Bld) 71.9 % Normal 36.0 - 75.0 % [facility] Platelet 216.0 [...] 06-29-2023 Albumin [Mass/Vol] 4.3 g/dL Normal 3.3-5.0 [facility] Comment on above: Performed By: #### 2 954846, 37806387, 2148714, 2752373, 28791327, 7638917 ####[facility] [address] [place] [address] Albumin/Globulin (S) [Mass conc ratio] 2.0 Normal 1.1-2.2 [facility] Comment on above: Performed By: #### 2 117183, 38915351, 2296388, 8993595, 56960731, 1090918 ####[facility] [address] [place] [address] ALP [Catalytic activity/Vol] 70 Int._Unit/L Normal 21-98 [facility] Comment on above: Performed By: #### 2 768332, 81046653, 2340779, 1217930, 72691016, 0799192 ####[address] [address] ALT No additional P-5'-P [Catalytic activity/Vol] 29 Int._Unit/L Normal 6-46 [facility] Comment on above: Performed By: #### 2 159930, 98316475, 4041358, 9324748, 72695088, 4838401 ####[address] [address] AST [Catalytic activity/Vol] 17 Int._Unit/L Normal 5-43 [facility] Comment on above: Performed By: #### 2 103808, 67889465, 4004068, 5914325, 31919447, 3527198 ####[address] [address] Bilirubin [Mass/Vol] 0.9 mg/dL Normal 0.0-1.1 [facility] Comment on above: Performed By: #### 2 408969, 70544848, 6195574, 1194404, 20557678, 8698237 ####[place] [address] Bilirubin.direct [Mass/Vol] 0.1 mg/dL Normal 0.0-0.4 [facility] Comment on above: Performed By: #### 2 473506, 02960527, 8790457, 5866440, 02630492, 1856284 ####[place] [address] Bilirubin.indirect [Mass or moles/Vol] 0.8 mg/dL Normal 0.1-0.9 [facility] Comment on above: Performed By: #### 2 016248, 55534820, 0322616, 3923250, 81139135, 9564539 ####[address] [address] Globulin (S) [Mass/Vol] 2.1 g/dL Normal 1.4-4.0 F [facility] Comment on above: Performed By: #### 2 228532, 06761754, 9063321, 7746243, 54787332, 9148194 ####[facility] [address] [place] [address] Protein [Mass/Vol] 6.4 g/dL Normal 6.0-7.8 [facility] Comment on above: Performed By: #### 2 999823, 10666572, 0515984, 2001591, 65278504, 3134362 ####[facility] [address] [place] [address] Lipase Levelon 06-29-2023 Lipase [Catalytic activity/Vol] U/L Low 13-58 [facility] Comment on above: Performed By: #### 2 984093, 35513386, 8215342, 4764394, 93430254, 1467767 ####[facility] [address] [place] [address] SEROLOGYOrdered By: Linh Wright on 06-29-2023 Beta HCG ( test) Ql Negative (06/29/23 9:29 PM) Normal [facility] Man Sero UA with Cult Rflxon 06-29-19 Color (U) Light-Yellow Normal Yellow [facility] Comment on above: Result Comment: Micr oscopic readings are only performed on those samples that meet specific criteria set forth by [facility]. Performed By: #### 4 [id number] ####[facility] [address] [place] [address] Glucose (U) [Mass/Vol] Negative Normal Negative [facility] Comment on above: Performed By: #### 4 [id number] ####[facility] [address] [place] [address] Ketones Ql (U) Negative Normal Negative [facility] Comment on above: Performed By: #### 4 [id number] ####[facility] [address] [place] [address] UA Blood Negative Normal Negative [facility] Comment on above: Performed By: #### 4 [id number] ####[facility] [address] [place] [address] UA Bacteria Trace Normal Trace [facility] Comment on above: Performed By: #### 4 [id number] ####[facility] [address] [place] [address] UA Clarity Turbid Abnormal Clear [facility] Comment on above: Performed By: #### 4 [id number] ####[facility] [address] [place] [address] UA Leuk Est Negative Normal Negative [facility] Comment on above: Performed By: #### 4 [id number] ####[facility] [address] [place] [address] UA Mucous Trace Normal Negative [facility] Comment on above: Performed By: #### 4 [id number] ####[facility] [address] [place] [place] [address] UA Nitrite Negative Normal Negative [facility] Comment on above: Performed By: #### 4 [id number] ####[facility] [address] [place] [address] UA pH 5.5 Invalid Interpretation Code 5.0-9.0 [facility] Comment on above: Performed By: #### 4 [id number] ####[facility] [address] [place] [address] UA Protein Negative Normal Negative [facility] Comment on above: Performed By: #### 4 [id number] ####[facility] [address] [place] [address] UA RBC 0-3 Normal 0-3 [facility] Comment on above: Performed By: #### 4 [id number] ####[facility] [address] [place] [address] UA Spec Grav 1.017 Invalid Interpretation Code 1.005-1.030 [facility] Comment on above: Performed By: #### 4 [id number] ####[facility] [address] [place] [address] UA Squam Epithelial >10 Abnormal 0-2 [facility] Comment on above: Performed By: #### 4 [id number] ####[facility] [address] [place] [address] UA Urobilinogen Negative Normal Negative [facility] Comment on above: Performed By: #### 4 [id number] ####[facility] [address] [place] [address] Urobilinogen (U) [Mass/Vol] Negative Normal Negative [facility] Comment on above: Performed By: #### 4 [id number] ####[facility] [address] [place] [address] UA Spec Desc Clean Catch Normal [facility] Comment on above: Performed By: #### 4 [id number] ####[facility] [address] [place] [address] URINALYSISOrdered By: SYSTEM SYSTEM on 06-29-2023 Color (U) Light-Yellow 1 (06/29/23 9:34 PM) Normal Yellow [facility] UA Auto SS Comment on above: Interpretive Data: M icroscopic readings are only performed on those samples that meet specific criteria set forth by [facility]. Glucose (U) [Mass/Vol] Negative Normal Negat ivemg/ dL [facility] UA Auto SS Ketones Ql (U) Negative Normal Negativemg/ dL FT UA Auto SS UA Bacteria Trace graded/HPF Normal Tracegraded /HPF FT UA Auto SS UA Blood Negative Normal Negativemg/ dL FT UA Auto SS UA Clarity Turbid *ABN* (06/29/23 9:34 PM) Invalid Interpretation Code Clear FT UA Auto SS UA Leuk Est Negative Normal NegativeLeu /uL FT UA Auto SS UA Mucous Trace graded/LPF Normal Negativegra ded/LPF FT UA Auto SS UA Nitrite Negative Normal Negativemg/ dL FT UA Auto SS UA pH 5.5 *NA* (06/29/23 9:34 PM) Invalid Interpretation Code 5.0 - 9.0 [facility] UA Auto SS UA Protein Negative Normal Negativemg/ dL [facility] UA Auto SS UA RBC 0-3 graded/HPF Normal 0-3graded/H PF FT UA Auto SS UA Spec Grav 1.017 *NA* (06/29/23 9:34 PM) Invalid Interpretation Code 1.005 - 1.030 [facility] UA Auto SS UA Squam Epithelial >10 graded/HPF Invalid Interpretation Code 0-2graded/H PF FT UA Auto SS UA Urobilinogen Negative Normal Negativemg/ dL FT UA Auto SS Urobilinogen (U) [Mass/Vol] Negative Normal Negativemg/ dL FT UA Auto SS URINALYSISOrdered By: Mary Ann Whitehead on 06-29-2023 UA Spec Desc Clean Catch (06/29/23 9:34 PM) Normal [facility] UA Auto SS eGFRon 06-29-2023 eGFR 123 mL/min/1.73 m2 Normal >=59 [facility] Comment on above: Order Comment: Order added by Discern Expert. Performed By: #### 2 780636, 99987403, 1740025, 9622143, 64584736, 7476814 ####[facility] [address] [place] [address] Auto Diffon 02-16-2023 Basophils/100 WBC (Bld) 0.6 % Normal 0.0-2.0 F [facility] Comment on above: Order Comment: Order Added by Discern Expert. Performed By: #### 1 4099871, 7585323, 1621237, 9307550, 5928547, 71567002, 3716479 ####[facility] [address] [place] [address] Basophils/Leukocytes Auto (Bld) [Pure # fraction] 0.0 E9/L Normal 0.0-0.2 [facility] Comment on above: Order Comment: Order Added by Discern Expert. Performed By: #### 1 2832977, 2114991, 2440897, 6901056, 4558404, 53608050, 1228606 ####[facility] [address] [place] [address] Eosinophils/100 WBC (Bld) 0.8 % Normal 0.0-8.0 [facility] Comment on above: Order Comment: Order Added by Discern Expert. Performed By: #### 1 9084269, 8195095, 5274573, 2537440, 5367137, 27027425, 3799395 ####[place] [address] [place] [address] Eosinophils/Leukocytes Auto (Bld) [Pure # fraction] 0.1 E9/L Normal 0.0-0.5 [facility] Comment on above: Order Comment: Order Added by Discern Expert. Performed By: #### 1 0387590, 0489162, 8289320, 0088438, 8077295, 93620161, 4427424 ####[address] [address] Lymphocytes/100 WBC (Bld) 27.0 % Normal 14.0-50.0 [facility] Comment on above: Order Comment: Order Added by Discern Expert. Performed By: #### 1 6974286, 8958196, 5846432, 6797867, 1923300, 78114548, 1250986 ####[address] [address] Lymphocytes/Leukocytes Auto (Bld) [Pure # fraction] 1.8 E9/L Normal 1.0-4.0 [facility] Comment on above: Order Comment: Order Added by Discern Expert. Performed By: #### 1 7073944, 2934881, 4029658, 8833117, 8321610, 83400253, 3564533 ####[address] [address] Monocytes/100 WBC (Bld) 7.8 % Normal 4.0-14.0 [facility] Comment on above: Order Comment: Order Added by Discern Expert. Performed By: #### 1 3090922, 1404288, 2975582, 2460865, 9793701, 19471763, 0891092 ####[place] [address] [place] [address] Monocytes/Leukocytes Auto (Bld) [Pure # fraction] 0.5 E9/L Normal 0.2-1.0 [facility] Comment on above: Order Comment: Order Added by Discern Expert. Performed By: #### 1 0337745, 0332778, 5121118, 8506933, 2967894, 12978992, 1967141 ####[facility] [address] [place] [address] Neutrophils/100 WBC (Bld) 63.8 % Normal 36.0-75.0 [facility] Comment on above: Order Comment: Order Added by Discern Expert. Performed By: #### 1 8913629, 7999182, 7849731, 1848459, 6342148, 57043238, 1643403 ####[facility] [address] [place] [address] Neutrophils/Leukocytes Auto (Bld) [Pure # fraction] 4.3 E9/L Normal 2.0-7.5 [facility] Comment on above: Order Comment: Order Added by Discern Expert. Performed By: #### 1 4688299, 2088411, 5833365, 2254738, 8638816, 21791035, 3140252 ####[facility] [address] [place] [address] [facility] 02-16-2023 Creatinine [Mass/Vol] 0.6 mg/dL Normal 0.5-1.3 [facility] Comment on above: Performed By: #### 1 6136145, 1921688, 5819902, 9145439, 7267082, 96375595, 7959300 ####[facility] [address] [place] [address] Urea nitrogen [Mass/Vol] 19 mg/dL Normal 5-21 [facility] Comment on above: Performed By: #### 1 2937330, 8086353, 0202040, 4716479, 2469941, 66308826, 9350833 ####[facility] [address] [place] [address] Urea nitrogen/Creatinine [Mass ratio] 32 No Units High 10-20 [facility] Comment on above: Performed By: #### 1 0047947, 4921111, 2605119, 4479978, 7604384, 50728762, 2403056 ####[facility] [address] [place] [address] Anion gap [Moles/Vol] 8 mmol/L Normal 6-16 [facility] Comment on above: Performed By: #### 1 6185971, 6078141, 4277569, 0451458, 6948205, 14559341, 7485941 ####[facility] [address] [place] [address] Calcium [Mass/Vol] 8.5 mg/dL Low 8.9-11.1 [facility] Comment on above: Performed By: #### 1 0317153, 2956692, 4751420, 0101267, 0875093, 04143504, 4780389 ####[facility] [address] [place] [address] Chloride [Moles/Vol] 107 mmol/L Normal 101-111 [facility] Comment on above: Performed By: #### 1 0173060, 2549393, 1875929, 2642608, 0592527, 44935652, 4017971 ####[facility] [address] [place] [address] CO2 [Moles/Vol] 25 mmol/L Normal 21-31 [facility] Comment on above: Performed By: #### 1 5840026, 7198934, 6057355, 9196411, 4787065, 55360372, 8251911 ####[facility] [address] [place] [address] Glucose [Mass/Vol] 93 mg/dL Normal 55-199 [facility] Comment on above: Result Comment: If t his glucose result represents a fasting glucose, interpretation should refer to the following reference range: 55-99 mg/dL Performed By: #### 1 2839817, 3357237, 9322843, 2355082, 3800912, 15840706, 5278425 ####[facility] [address] [place] [address] Potassium [Moles/Vol] 3.4 mmol/L Low 3.5-5.3 [facility] Comment on above: Performed By: #### 1 6233943, 2311793, 6446503, 2462486, 0631092, 77390359, 6120184 ####[facility] [address] [place] [address] Sodium [Moles/Vol] 137 mmol/L Normal 135-145 [facility] Comment on above: Performed By: #### 1 9945256, 9881993, 5858285, 4147751, 2743458, 45621250, 1009888 ####[place] [address] [place] [address] CBC w/ Auto Diffon Erythrocyte distribution width (RBC) [Ratio] 13.0 % Normal 10.9-14.2 [facility] Comment on above: Performed By: #### 1 4285158, 7519275, 7479787, 4330198, 8637419, 44092602, 4031650 ####[place] [address] [place] [address] Hematocrit (Bld) [Volume fraction] 41.4 % Normal 34.0-46.0 [facility] Comment on above: Performed By: #### 1 0393777, 9188449, 0966477, 1664269, 0739786, 18651963, 4701962 ####[address] [address] Hemoglobin (Bld) [Mass/Vol] 13.9 g/dL Normal 12.0-16.0 [facility] Comment on above: Performed By: #### 1 5403397, 6147580, 4724675, 2050158, 0235500, 10955083, 7445300 ####[place] [address] [place] [address] MCH (RBC) [Entitic mass] 31.0 pg Normal 27.0-34.0 [facility] Comment on above: Performed By: #### 1 3313443, 6005660, 4125548, 6906174, 6556181, 28957938, 4640642 ####[address] [address] MCHC (RBC) [Mass/Vol] 33.6 g/dL Normal 31.4-36.[address] [facility] Comment on above: Performed By: #### 1 4946490, 3755691, 5881938, 8988078, 1002398, 11656710, 7510902 ####[facility] [address] [place] [address] MCV (RBC) [Entitic vol] 92.3 fL Normal 80.0-100.0 F [facility] Comment on above: Performed By: #### 1 7053453, 8024202, 7357068, 7015091, 5399373, 79568803, 2380229 ####[facility] [address] [place] [address] Platelet mean volume (Bld) [Entitic vol] 9.7 fL Normal 6.4-10.8 [facility] Comment on above: Performed By: #### 1 1026190, 2583250, 4037039, 5567804, 5284871, 75887274, 5040742 ####[facility] [address] [place] [address] Platelets (Bld) [#/Vol] 254.0 E9/L Normal 150.0-500.0 [facility] Comment on above: Performed By: #### 1 8416984, 5541317, 6077768, 0712901, 4494045, 95838249, 5765454 ####[facility] [address] [place] [address] RBC (Bld) [#/Vol] 4.5 E12/L Normal 4.3-5.9 [facility] Comment on above: Performed By: #### 1 6713812, 8681397, 3120664, 6995143, 6560635, 64710351, 2868371 ####[facility] [address] [place] [address] WBC corrected for nucl RBC Auto (Bld) [#/Vol] 6.7 E9/L Normal 4.0-11.0 [facility] Comment on above: Performed By: #### 1 4521433, 0650573, 3396748, 9725135, 4810980, 70976800, 2125493 ####[facility] [address] [place] [address] CHEMISTRYOrdered By: SYSTEM SYSTEM on 02-16-2023 Albumin [...] 0.6 mg/dL Normal 0.5 - 1.3 mg/dL [facility] Remisol GFR/1.73 sq M.predicted among non-blacks MDRD (S/P/Bld) [Vol rate/Area] 128 mL/min/1.73 m2 Normal >=59mL/min/ 1.73 m2 [facility] Chem S Comment on above: Interpretive Data: [...] Sensitivity Troponin I Instructions For Use, Lianna [place], November 2017) Urea nitrogen [Mass/Vol] 19 mg/dL Normal 5 - 21 mg/dL [facility] Remisol Urea nitrogen/Creatinine [Mass ratio] 32 mg/mg High 10 - 20 [facility] Remisol Consent for Treatmenton 02-03 Consent for Treatment [id number] Normal [facility] Discharge Instructionson Discharge Instructions [id number] Normal [facility] ED Clinical Summaryon 2022 ED Clinical Summary [address] [address] ED Clinical Summary Person Information Name: SOCORRO JOSEPH [facility] Age: 22 Years : 2000 Sex: Female Language: Nepalese PCP: Lilliam Gonzalez MD Marital Status: Single [...] 02/16/2023 07:09:21 02/16/2023 07:09:21 02/16/2023 07:09:21 ADDRESS: [address] [place] [id number] PHYS DOC NOTES: MEDICAL INFORMATION: Prescriptions Given: New Medications [facility], [address] [place], [place] [id number], [phone] ondansetron (Zofran ODT 4 mg Tab-Dis) 1 Tablets By Mouth every 8 hours as needed Nausea/Vomiting. Refills: 0. PATIENT EDUCATION INFORMATION: Instructions: Nausea and Vomiting, Adult Follow up: With: Address: When: Lilliam Gonzalez [address] [place] [address] Business (1) In 3 days DIAGNOSIS: Diarrhea; N&V (nausea and vomiting); Syncope Normal [facility] ED Note-Physicianon 02-17-20 ED Note-Physician Basic Information [...] and Complexity of Problems Differential Diagnosis: [] [facility] Data External documents reviewed: N/A My [...] Information Lilliam Gonzalez In [address] [place] [address]- [employer] (1) Additional Instructions: Patient Education Nausea and [...] - Isaac (more content not included)... Normal [facility] Comment on above: Result Comment: Elec tronically Signed By: Jacinto Mendiola DO\.br\Date and Time Signed: 02/16/23 06:54 EST ED Patient Education Noteon 02-16-2023 ED Patient Education Note Gastroenterology Nausea and Vomiting, Adult Nausea is the [...] added (diluted fruit juice). ? Eat bland, hgck-zz-pmrtjc foods in small amounts as you are able. These foods include bananas, applesauce, rice, lean meats, toast, and crackers. ? Avoid fluids that contain a lot of sugar or caffeine, such as energy drinks, sports drinks, and soda. ? Avoid alcohol. ? Avoid spicy or fatty foods. General instructions ? Take nzyf-pho-ptzfzfe and prescription medicines only as told by your health care provider. ? Drink enough fluid to keep your urine pale yellow. ? Wash your hands often using soap and water for at least 20 seconds. If soap and water are not available, use hand solar photovoltaic electrician. ? Make sure that everyone in your [...] and drinking to prevent dehydration. ? Take ikjc-tbf-cubusme and prescription medicines only as told by [...] provider. Document Revised: 09/26/2021 Document Reviewed: 09/26/2021 [employer] Patient Education ? 2022 [employer] Normal [facility] ED Patient Summaryon 023 ED Patient Summary [place] [id number] Patient Discharge Instructions Person Information Name: SOCORRO JOSEPH Age: 22 Years Arrival Date: 02/16/2023 05:05:22 Discharge Diagnosis: Diarrhea; N&V (nausea and vomiting); Syncope Primary Care Physician: Lilliam Gonzalez MD Provider Information Primary Provider: Jacinto Mendiola DO Advanced Promotional Marketing Agent:None The exam and treatment you received in the Emergency Department were for an urgent problem and are not intended as complete care. It is important that you follow up with a doctor, nurse practitioner, or physician?s tmd teacher assistant for ongoing care. If your symptoms [...] Follow-up Instructions: With: Address: When: Lilliam Gonzalez [address] [place] [phone] Business (1) In 3 days In the event that this physician does not participate in your insurance network, please consult with your insurance company to find a nearby participating provider. Patient Education Materials: Nausea and Vomiting, Adult A MESSAGE TO ALL PATIENTS REGARDING OPIOIDS PRESCRIPTION OPIOIDS: WHAT YOU NEED TO KNOW Prescription opioids can be used to help relieve ybsiahnj-ph-zzolom pain and are often prescribed following a [...] be struggling with addiction, tell your health respiratory care instructor and ask for guidance or call [facility] National Helpline at 3-359-568-KITU. p [facility] (more content not included)... Normal [facility] HEMATOLOGYOrdered By: SYSTEM SYSTEM on 02-16-2023 Basophils/100 WBC (Bld) 0.6 % Normal 0.0 - 2.0 % [facility] HemeAutoSS Basophils/Leukocytes Auto (Bld) [Pure # fraction] 0.0 E9/L Normal 0.0 - 0.2 E9/L [facility] HemeAutoSS Eosinophils/100 WBC (Bld) 0.8 % Normal 0.0 - 8.0 % [facility] HemeAutoSS Eosinophils/Leukocytes Auto (Bld) [Pure # fraction] 0.1 E9/L Normal 0.0 - 0.5 E9/L [facility] HemeAutoSS Lymphocytes/100 WBC (Bld) 27.0 % Normal 14.0 - 50.0 % [facility] HemeAutoSS Lymphocytes/Leukocytes Auto (Bld) [Pure # fraction] 1.8 E9/L Normal 1.0 - 4.0 E9/L [facility] HemeAutoSS Monocytes/100 WBC (Bld) 7.8 % Normal 4.0 - 14.0 % [facility] HemeAutoSS Monocytes/Leukocytes Auto (Bld) [Pure # fraction] 0.5 E9/L Normal 0.2 - 1.0 E9/L [facility] HemeAutoSS Neutrophils/100 WBC (Bld) 63.8 % Normal 36.0 - 75.0 % [facility] HemeAutoSS Neutrophils/Leukocytes Auto [...] 34.0 pg [facility] HemeAutoSS MCHC (RBC) [Mass/Vol] 33.6 g/dL Normal 31.4 - 36.0 gm/dL [facility] HemeAutoSS MCV (RBC) [Entitic vol] 92.3 fL Normal 80.0 - 100.0 fL [facility] HemeAutoSS Platelet mean volume (Bld) [Entitic vol] 9.7 fL Normal 6.4 - 10.8 fL [facility] HemeAutoSS Platelets (Bld) [#/Vol] 254.0 E9/L Normal 150. 0 - 500.0 E9/L [facility] HemeAutoSS RBC (Bld) [#/Vol] 4.5 E12/L Normal 4.3 - 5.9 E12/L [facility] HemeAutoSS WBC corrected for nucl RBC Auto (Bld) [#/Vol] 6.7 E9/L Normal 4.0 - 11.0 E9/L [facility] HemeAutoSS Hep Func Panelon 02-16-2023 Albumin [Mass/Vol] 3.9 g/dL Normal 3.3-5.0 [facility] Comment on above: Performed By: #### 1 [id number], 5928185, 4708629, 7974838, 1535657, 09579409, 2331311 ####[facility] [address] [place] [address] Albumin/Globulin (S) [Mass conc ratio] 1.4 Normal 1.1-2.2 [facility] Comment on above: Performed By: #### 1 [id number], 8671562, 2332071, 1277295, 8161079, 30806326, 9075063 ####[place] [address] [place] [address] ALP [Catalytic activity/Vol] 86 Int._Unit/L Normal 21-98 [facility] Comment on above: Performed By: #### 1 8468684, 3468910, 0715483, 8406781, 5995501, 85351923, 2959109 ####[address] [address] ALT No additional P-5'-P [Catalytic activity/Vol] 18 Int._Unit/L Normal 6-46 [facility] Comment on above: Performed By: #### 1 8879132, 3419143, 1591205, 7258311, 0215875, 17995602, 9047509 ####[address] [address] AST [Catalytic activity/Vol] 14 Int._Unit/L Normal 5-43 [facility] Comment on above: Performed By: #### 1 5145202, 1412828, 9590979, 2924242, 1532110, 38071221, 0431552 ####[place] [address] [place] [address] Bilirubin [Mass/Vol] 1.0 mg/dL Normal 0.0-1.1 [facility] Comment on above: Performed By: #### 1 4886677, 0708954, 4056123, 5992084, 9724128, 01328089, 5682434 ####[facility] [address] [place] [address] Bilirubin.direct [Mass/Vol] 0.2 mg/dL Normal 0.1-0.4 [facility] Comment on above: Performed By: #### 1 4548002, 2418309, 7457145, 1870991, 4832268, 07989009, 2552439 ####[facility] [address] [place] [address] Bilirubin.indirect [Mass or moles/Vol] 0.8 mg/dL Normal 0.1-0.9 [facility] Comment on above: Performed By: #### 1 6644173, 8860878, 8829142, 5717004, 1858193, 61111855, 7881726 ####[facility] [address] [place] [address] Globulin (S) [Mass/Vol] 2.8 g/dL Normal 1.4-4.0 [facility] Comment on above: Performed By: #### 1 1227656, 2486833, 2826930, 5370701, 7611428, 58623472, 2112092 ####[facility] [address] [place] [address] Protein [Mass/Vol] 6.7 g/dL Normal 6.0-7.8 [facility] Comment on above: Performed By: #### 1 2773325, 1374154, 0768669, 2029848, 2288804, 01384995, 4601462 ####[facility] [address] [place] [address] Lipase Levelon 02-16-2023 Lipase [Catalytic activity/Vol] 22 U/L Normal 13-58 [facility] Comment on above: Performed By: #### 1 1194823, 5759072, 6291916, 9961244, 7365355, 69089597, 7319130 ####[facility] [address] [place] [address] Prescriptions/Work Noteson 04-18-2022 Prescriptions/Work Notes [id number] Normal [facility] Troponin 0 Hr.on 02-16-2023 Troponin I.cardiac [Mass/Vol] ng/mL Low 10.10-27.10 [facility] Comment on above: Result Comment: The 95% CI (Confidence Interval) PPV (Positive Predictive Value) for myocardial infarction in females is 38 pg/mL, in males 51 pg/mL. The results should be used in conjunction with clinical conditions of myocardial infarction. (Access High Sensitivity Troponin I Instructions For Use, [place], November 2017) Performed By: #### 1 [id number], 1326945, 2573326, 3210219, 9245094, 50847009, 6947330 ####[facility] [address] [place] [address] eGFRon 02-16-2023 GFR/1.73 sq M.predicted among non-blacks MDRD (S/P/Bld) [Vol rate/Area] 128 mL/min/1.73 m2 Normal >=59 [facility] Comment on above: Order Comment: Order added by Discern Expert. Result Comment: Channel [employer] lila kidney disease could be indicated at eGFR's of less than 60 mL/min/1.73m2. Kidney failure is indicated at less than 15 mL/min/1.73m2. Performed By: #### 1 3547366, 7175042, 4761824, 4065944, 4708987, 98471797, 9250759 ####[facility] [address] [place] [address] Family Medicine Office/Clini c Noteon 12-18-2022 Family [...] with voice recognition software. Occasional wrong-word or ?rsrvp-q-hyjp? substitutions may have occurred due to the inherent limitations of voice recognition software. 22 yo female presents today with cc of foot pain following injury. 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 She states it kind [...] Views Right Follow-up With When Contact Information An LOERA, Raquel Penny [address] [place] [address]- Additional Instructions: Patient Education Contusion, Gsbv-ci-Hmvq Problem List/Past Medical History Ongoing Depression Smoker Historical Smoker Supervision of normal (more content not included)... Normal [facility] Comment on above: Result Comment: Elec tronically Signed By: Timothy TREVIZO, Tony Bhatia\.br\Date and Time Signed: 12/18/22 16:13 EDT Patient Educationon 09-15-20 23 Patient Education Orthopedics Contusion A contusion is [...] or lying down. General instructions ? Take tgxm-qtt-bphnvos and prescription medicines only as told by [...] also called RICE. You may be given ryqo-beo-xclizvc medicines for pain. ? Contact a doctor [...] provider. Document Revised: 01/15/2022 Document Reviewed: 01/15/2022 Elsevier Patient Education ? 2022 Elsevier Inc. Normal [facility] XR Ankle 3+ Views Righton XR Ankle [...] mGy = na DAP = na Normal [facility] XR Foot 3+ Views Righton XR Foot [...] mGy = na DAP = na Normal [facility] CBC AUTO DIFFon 06-24-2022 BASO # 0.1 103/ul Normal 0.0-0.1 [facility] Comment on above: Performed By: #### C BC #### [facility] [address] [place] [address] Dr. Janett Plata Basophils/100 WBC (Bld) 1.1 % Normal 0.2-2.0 [facility] Comment on above: Performed By: #### C BC #### [facility] [address] [place] [address] Dr. Janett Plata EO # 0.1 103/ul Normal 0.0-0.7 [facility] Comment on above: Performed By: #### C BC #### [facility] [address] [place] [address] Dr. Janett Plata Eosinophils/100 WBC (Bld) 1.7 % Normal 0.9-7.0 [facility] Comment on above: Performed By: #### C BC #### [facility] [address] [place] [address] Dr. Janett Plata Erythrocyte distribution width (RBC) [Ratio] 12.6 % Normal 11.0-15.0 [facility] Comment on above: Performed By: #### C BC #### [facility] [address] [place] [address] Dr. Janett Plata Hematocrit (Bld) [Volume fraction] 41.0 % Normal 36.0-48.0 [facility] Comment on above: Performed By: #### C BC #### [facility] [address] [place] [address] Dr. Janett Plata Hemoglobin (Bld) [Mass/Vol] 13.3 g/dL Normal 12.0-16.0 [facility] Comment on above: Performed By: #### C BC #### [facility] [address] [place] [address] Dr. Janett Plata IG # 0.02 10e3/ul Normal 0.00-0.03 [facility] Comment on above: Performed By: #### C BC #### [facility] [address] [place] [address] Dr. Janett Plata IG % 0.3 % Normal 0.0-0.5 [facility] Comment on above: Performed By: #### C BC #### [facility] [address] [place] [address] Dr. Janett Plata LYMPH # 2.8 103/ul Normal 1.2-3.8 [facility] Comment on above: Performed By: #### C BC #### [facility] [address] [place] [address] Dr. Janett Plata Lymphocytes/100 WBC (Bld) 40.6 % Normal 20.5-60.0 [facility] Comment on above: Performed By: #### C BC #### [facility] [address] [place] [address] Dr. Janett Plata MANUAL DIFF REQ NO Normal [facility] Comment on above: Performed By: #### C BC #### [facility] [address] [place] [address] Dr. Janett Plata MCH (RBC) [Entitic mass] 30.4 pg Normal 26.7-34.0 [facility] Comment on above: Performed By: #### C BC #### [facility] [address] [place] [address] Dr. Janett Plata MCHC (RBC) [Mass/Vol] 32.4 g/dL Normal 29.9-35.2 [facility] Comment on above: Performed By: #### C BC #### [facility] [address] [place] [address] Dr. Janett Plata MCV (RBC) [Entitic vol] 93.8 fL Normal 81.0-99.0 [facility] Comment on above: Performed By: #### C BC #### [facility] [address] [place] [address] Dr. Janett Plata MONO # 0.4 103/ul Normal 0.3-0.8 [facility] Comment on above: Performed By: #### C BC #### [facility] [address] [place] [address] Dr. Janett Plata Monocytes/100 WBC (Bld) 5.4 % Normal 1.7-12.0 [facility] Comment on above: Performed By: #### C BC #### [facility] [address] [place] [address] Dr. Janett Plata NEUT # 3.6 103/ul Normal 1.4-6.5 [facility] Comment on above: Performed By: #### C BC #### [facility] [address] [place] [address] Dr. Janett Plata Neutrophils/100 WBC (Bld) 50.9 % Normal 43.0-75.0 [facility] Comment on above: Performed By: #### C BC #### [facility] [address] [place] [address] Dr. Janett Plata Platelet mean volume (Bld) [Entitic vol] 10.2 fL Normal 9.5-13.5 [facility] Comment on above: Performed By: #### C BC #### [facility] [address] [place] [address] Dr. Janett Plata PLT 267 103/ul Normal 150-450 [facility] Comment on above: Performed By: #### C BC #### [facility] [address] [place] [address] Dr. Janett Plata RBC 4.37 106/ul Normal 4.20-5.40 [facility] Comment on above: Performed By: #### C BC #### [facility] [address] [place] [address] Dr. Janett Plata WBC 7.0 103/ul Normal 4.0-11.0 [facility] Comment on above: Performed By: #### C BC #### [facility] [address] [place] [address] Dr. Janett Plata PREG QUANT HCGon 06-24-2022 HCG QUANT <1 Normal [facility] Comment on above: Performed By: #### P REGQNT #### [facility] [address] [place] [address] Dr. Janett Plata HCG RANGE SEE BELOW Normal [facility] Comment on above: Result Comment: 5-50 0.2-1 WEEK 50-500 1-2 WEEKS 100-5,000 2-3 WEEKS 500-10,000 3-4 WEEKS 1,000-50,000 4-5 WEEKS 10,000-100,000 5-6 WEEKS 15,000-200,000 6-8 WEEKS 10,000-100,000 2-3 MONTHS Performed By: #### P REGQNT #### [facility] [address] [place] [address] [address] Janett Plata XR CHEST 2 Von [...] by: BAO DESIR Date: 2022-06-10 10:31 [facility] Office Visit (CALEB ) SOCORRO JOSEPH ([id number]) 2000 F Date Time Provider Department 11/06/21 1:30 PM FERNANDA SOUZA During your visit today, we recorded the following information about you: Fernanda Souza APRN.[employer] 11/06/2021 1:17 PM Signed 1. Stay hydrated [...] virtual after completion of physical therapy Fernanda Souza APRN.CNP 11/06/2021 2:00 PM Signed PELVIC FLOOR [...] Medications M (more content not included)... Normal [facility] HISTORY PHYSICALon HISTORY PHYSICAL HNO ID: [id number] Author: Fernanda Souza APRN.[employer] Service: ? 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 Normal [facility] DHEA SERUMon 10-23-2021 Dehydroepiandrosterone (DHEA) 234 ng/dL Normal 31-701 [facility] Comment on above: Result Comment: Age [...] years 31 - 701 Performed By: #### Alejandra FIELDS. #### [facility] [address] [place], [place] [address] Dr. Janett Plata US PELVIS AND TRANSVAGon [...] EVELIA LLAMAS Date: 2021-10-21 08:09 Normal [facility] DHEA-SULFATEon 10-19-2021 DHEA-Sulfate 244.0 ug/dL Normal 110.0-431.7 [facility] Comment on above: Performed By: #### Alejandra CURRYUL ####[facility] [address] [place], [place] [address]CrDr. Janett Plata FSHon 10-19-2021 FSH 8.3 mIU/mL Normal [facility] Comment on above: Result Comment: Adul t Female: Follicular phase 3.5 - 12.5 Ovulation phase 4.7 - 21.5 Luteal phase 1.7 - 7.7 Postmenopausal 25.8 - 134.8 Performed By: #### L [facility] #### [facility] [address] [place] [address] Dr. Janett Plata LUTEINIZING HORMONE (LH)on 0 10-19-2021 LH 21.9 mIU/mL Normal [facility] Comment on above: Result Comment: Adul t Female: Follicular phase 2.4 - 12.6 Ovulation phase 14.0 - 95.6 Luteal phase 1.0 - 11.4 Postmenopausal 7.7 - 58.5 Performed By: #### L BCL #### [facility] [address] [place] [address] Dr. Janett Plata CBC AUTO DIFFon 10-18-2021 BASO # 0.0 103/ul Normal 0.0-0.1 [facility] Comment on above: Performed By: #### C BC #### [facility] [address] [place] [address] Dr. Janett Plata Basophils/100 WBC (Bld) 0.4 % Normal 0.2-2.0 [facility] Comment on above: Performed By: #### C BC #### [facility] [address] [place] [address] Dr. Janett Plata EO # 0.1 103/ul Normal 0.0-0.7 [facility] Comment on above: Performed By: #### C BC #### [facility] [address] [place] [address] Dr. Janett Plata Eosinophils/100 WBC (Bld) 1.1 % Normal 0.9-7.0 [facility] Comment on above: Performed By: #### C BC #### [facility] [address] [place] [address] Dr. Janett Plata Erythrocyte distribution width (RBC) [Ratio] 12.1 % Normal 11.0-15.0 [facility] Comment on above: Performed By: #### C BC #### [facility] [address] [place] [address] Dr. Janett Plata Hematocrit (Bld) [Volume fraction] 39.9 % Normal 36.0-48.0 [facility] Comment on above: Performed By: #### C BC #### [facility] [address] [place] [address] Dr. Janett Plata Hemoglobin (Bld) [Mass/Vol] 13.0 g/dL Normal 12.0-16.0 [facility] Comment on above: Performed By: #### C BC #### [facility] [address] [place] [address] Dr. Janett Plata IG # 0.02 10e3/ul Normal 0.00-0.03 [facility] Comment on above: Performed By: #### C BC #### [facility] [address] [place] [address] Dr. Janett Plata IG % 0.2 % Normal 0.0-0.5 [facility] Comment on above: Performed By: #### C BC #### [facility] [address] [place] [address] Dr. Janett Plata LYMPH # 2.9 103/ul Normal 1.2-3.8 [facility] Comment on above: Performed By: #### C BC #### [facility] [address] [place] [address] Dr. Janett Plata Lymphocytes/100 WBC (Bld) 32.0 % Normal 20.5-60.0 [facility] Comment on above: Performed By: #### C BC #### [facility] [address] [place] [address] Dr. Janett Plata MANUAL DIFF REQ NO Normal [facility] Comment on above: Performed By: #### C BC #### [facility] [address] [place] [address] Dr. Janett Plata MCH (RBC) [Entitic mass] 31.0 pg Normal 26.7-34.0 [facility] Comment on above: Performed By: #### C BC #### [facility] [address] [place] [address] Dr. Janett Plata MCHC (RBC) [Mass/Vol] 32.6 g/dL Normal 29.9-35.2 [facility] Comment on above: Performed By: #### C BC #### [facility] [address] [place] [address] Dr. Janett Plata MCV (RBC) [Entitic vol] 95.2 fL Normal 81.0-99.0 [facility] Comment on above: Performed By: #### C BC #### [facility] [address] [place] [address] Dr. Janett Plata MONO # 0.5 103/ul Normal 0.3-0.8 [facility] Comment on above: Performed By: #### C BC #### [facility] [address] [place] [address] Dr. Janett Plata Monocytes/100 WBC (Bld) 5.3 % Normal 1.7-12.0 [facility] Comment on above: Performed By: #### C BC #### [facility] [address] [place] [address] Dr. Janett Plata NEUT # 5.5 103/ul Normal 1.4-6.5 [facility] Comment on above: Performed By: #### C BC #### [facility] [address] [place] [address] Dr. Janett Plata Neutrophils/100 WBC (Bld) 61.0 % Normal 43.0-75.0 [facility] Comment on above: Performed By: #### C BC #### [facility] [address] [place] [address] Dr. Janett Plata Platelet mean volume (Bld) [Entitic vol] 9.5 fL Normal 9.5-13.5 [facility] Comment on above: Performed By: #### C BC #### [facility] [address] [place] [address] Dr. Janett Plata PLT 227 103/ul Normal 150-450 [facility] Comment on above: Performed By: #### C BC #### [facility] [address] [place] [address] Dr. Janett Plata RBC 4.19 106/ul Critically low 4.20-5.40 [facility] Comment on above: Performed By: #### C BC #### [facility] [address] [address] [address] Janett Plata WBC 9.1 103/ul Normal 4.0-11.0 [facility] Comment on above: Performed By: #### C BC #### [facility] [id number] Janett Plata TSHon 10-18-2021 TSH 1.507 uIU/mL Normal 0.358-3.740 [facility] Comment on above: Performed By: #### T SH #### [facility] [address] [place] [address] Dr. Janett Plata URINALYSISOrdered By: Cristina Wright on 09-18-2021 Bilirubin Ql (U) Negative (09/18/21 1:25 AM) Normal Negative [facility] UA Auto SS Clarity (U) Clear (09/18/21 1:25 AM) Normal Clear [facility] UA Auto SS Color (U) Yellow (09/18/21 1:25 AM) Normal Yellow [facility] UA Auto SS Epithelial cells.squamous LM.HPF (Urine sed) [#/Area] 0-2 /HPF Normal 0-2/HPF [facility] UA Aut o SS Glucose Test strip (U) [Mass/Vol] Negative (09/18/21 1:25 AM) Normal Negative [facility] UA Auto SS Hemoglobin Ql (U) Negative (09/18/21 1:25 AM) Normal Negative [facility] UA Auto SS Ketones (U) [Mass/Vol] Negative (09/18/21 1:25 AM) Normal Negative [facility] UA Auto SS [place].plasma/[place].R BC (Bld) [Mass ratio] 0-3 /HPF Normal 0-3/HPF [facility] UA Au to SS Nitrite Ql (U) Negative (09/18/21 1:25 AM) Normal Negative [facility] UA Auto SS pH (U) 6.5 *NA* (09/18/21 1:25 AM) Invalid Interpretation Code 5.0 - 9.0 [facility] UA Auto SS Protein (U) [Mass/Vol] Negative (09/18/21 1:25 AM) Normal Negative [facility] UA Auto SS Specific gravity (U) [Rel density] <=1.005 *NA* (09/18/21 1:25 AM) Invalid Interpretation Code 1.005 - 1.030 [facility] UA Auto SS UA Spec Desc Clean Catch (09/18/21 1:25 AM) Normal [facility] UA Auto SS Urobilinogen Qn (U) [id number] {Paco'U}/dL Normal 0.0 - 1.0 EU/dL [facility] [...] 11. 1 mg/dL [facility] Remisol Chloride [Moles/Vol] 105 mmol/L Normal 101 - 1 11 mmol/L [facility] Remisol CO2 [Moles/Vol] 23 mmol/L Normal 21 - 31 mmol/L [facility] Remisol Creatinine [Mass/Vol] 0.6 mg/dL Normal 0.5 - 1.3 mg/dL [facility] Remisol GFR/1.73 sq M.predicted among blacks MDRD (S/P/Bld) [Vol rate/Area] mL/min/1.73 m2 Normal >=59mL/min/ 1.73 m2 [facility] Chem S GFR/1.73 sq M.predicted among non-blacks MDRD (S/P/Bld) [Vol rate/Area] mL/min/1.73 m2 Normal >=59mL/min/ 1.73 m2 [facility] Chem S Globulin (S) [Mass/Vol] 2.8 g/dL Normal 1.4 - 4.0 gm/dL [facility] Remisol Glucose [Mass/Vol] 109 mg/dL Normal 55 - 199 mg/dL [facility] Lipase [Catalytic activity/Vol] 23 U/L Normal 13 - 58 unit/L [facility]isol Potassium [Moles/Vol] 3.5 mmol/L Normal 3.5 - 5.3 mmol/L [facility] Remisol Protein [Mass/Vol] 7.3 g/dL Normal 6.0 - 7.8 gm/dL [facility] Remisol Sodium [Moles/Vol] 138 mmol/L Normal 135 [...] HemeAutoSS Lymphocytes/100 WBC (Bld) 33.7 % Normal 14.0 - 50.0 % [facility] HemeAutoSS Lymphocytes/Leukocytes Auto (Bld) [Pure # fraction] 3.6 E9/L Normal 1.0 - 4.0 E9/L [facility] HemeAutoSS Monocytes/100 WBC (Bld) 6.4 % Normal 4.0 - 14.0 % [facility] HemeAutoSS Monocytes/Leukocytes Auto (Bld) [Pure # fraction] 0.7 E9/L Normal 0.2 - 1.0 E9/L [facility] HemeAutoSS Neutrophils/100 WBC (Bld) 58.8 % Normal 36.0 - 75.0 % [facility] HemeAutoSS Neutrophils/Leukocytes Auto (Bld) [Pure # fraction] 6.3 E9/L Normal 2.0 - 7.5 E9/L [facility] HemeAutoSS HEMATOLOGYOrdered By: Coretta li on 09-17-2021 Erythrocyte distribution width (RBC) [Ratio] 13.1 % Normal 10.9 - 14.2 % [facility] HemeAutoSS Hematocrit (Bld) [Volume fraction] 41.1 % Normal 34.0 - 46.0 % [facility] HemeAutoSS Hemoglobin (Bld) [Mass/Vol] 14.0 g/dL Normal 12.0 - 16.0 gm/dL [facility] HemeAutoSS MCH (RBC) [Entitic mass] 31.8 pg Normal 27. 0 - 34.0 pg [facility] HemeAutoSS MCHC (RBC) [Mass/Vol] 34.1 g/dL Normal [...] 4.4 E12/L Normal 4.3 - 5.9 E12/L [facility] HemeAutoSS WBC corrected for nucl RBC Auto (Bld) [#/Vol] 10.7 E9/L Normal 4.0 - 11.0 E9/L [facility] HemeAutoSS MICRO OTHER TESTSOrdered By: Coretta Tony on 09-17-2021 Occult Bld Stl Negative (09/17/21 10:40 PM) Normal Negative [facility] Man Sero SEROLOGYOrdered By: Linh Wright on 09-17-2021 Beta hCG Ql Negative (09/17/21 10:42 PM) Normal [facility] Man Sero BLOOD BANKOrdered By: Coretta li on 07-16-2021 ABO/Rh Interp Positive Invalid Interpretation Code [facility] BB Subsection CHEMISTRYOrdered By: SYSTEM SYSTEM on 07-16-2021 Anion gap [Moles/Vol] 12 mmol/L Normal 6 - 16 mEq/L [facility] Remisol Calcium [Mass/Vol] 9.1 mg/dL Normal 8.9 - 11. 1 mg/dL [facility] Remisol Chloride [Moles/Vol] 103 mmol/L Normal 101 - 1 11 mmol/L [facility] CO2 [Moles/Vol] 24 mmol/L Normal 21 - 31 mmol/L [facility] Creatinine [Mass/Vol] 0.5 mg/dL Normal 0.5 - 1.3 mg/dL [facility] Remisol GFR/1.73 sq M.predicted among blacks MDRD (S/P/Bld) [Vol rate/Area] mL/min/1.73 m2 Normal >=59mL/min/ 1.73 m2 [facility] Chem S GFR/1.73 sq M.predicted among non-blacks MDRD (S/P/Bld) [Vol rate/Area] mL/min/1.73 m2 Normal >=59mL/min/ 1.73 m2 [facility] Chem S Glucose [Mass/Vol] 114 mg/dL Normal 55 - 199 mg/dL [facility] Potassium [Moles/Vol] 3.6 mmol/L Normal 3.5 - 5.3 mmol/L [facility] Sodium [Moles/Vol] 135 mmol/L Normal 135 - 145 mmol/L [facility] Urea nitrogen [Mass/Vol] 17 mg/dL Normal 5 - 21 mg/dL [facility] Remisol Urea nitrogen/Creatinine [Mass ratio] 34 mg/mg High 10 - 20 [facility] COAGULATIONOrdered By: Panchito Rosales on 07-16-2021 aPTT Coag (PPP) [Time] 36.1 s Normal 25.1 - 36.5 second(s) [facility] Auto Coag INR Coag (PPP) [Relative time] 1.0 {INR} Invalid Interpretation Code [facility] Auto Coag PT Coag (PPP) [Time] 12.3 s Normal 10.2 - 12.9 second(s) [facility] Auto Coag HEMATOLOGYOrdered By: SYSTEM SYSTEM on [...] HemeAutoSS Lymphocytes/100 WBC (Bld) 39.8 % Normal 14.0 - 50.0 % [facility] HemeAutoSS Lymphocytes/Leukocytes Auto (Bld) [Pure # fraction] 2.6 E9/L Normal 1.0 - 4.0 E9/L [facility] HemeAutoSS Monocytes/100 WBC (Bld) 5.8 % Normal 4.0 - 14.0 % [facility] HemeAutoSS Monocytes/Leukocytes Auto (Bld) [Pure # fraction] 0.4 E9/L Normal 0.2 - 1.0 E9/L [facility] HemeAutoSS Neutrophils/100 WBC (Bld) 53.2 % Normal 36.0 - 75.0 % [facility] HemeAutoSS Neutrophils/Leukocytes Auto (Bld) [Pure # fraction] 3.5 E9/L Normal 2.0 - 7.5 E9/L [facility] HemeAutoSS HEMATOLOGYOrdered By: Coretta li on 07-16-2021 Erythrocyte distribution width (RBC) [Ratio] 13.3 % Normal 10.9 - 14.2 % [facility] HemeAutoSS Hematocrit (Bld) [Volume fraction] 38.5 % Normal 34.0 - 46.0 % [facility] HemeAutoSS Hemoglobin (Bld) [Mass/Vol] 13.1 g/dL Normal 12.0 - 16.0 gm/dL [facility] HemeAutoSS MCH (RBC) [Entitic mass] 31.4 pg Normal 27. 0 - 34.0 pg [facility] HemeAutoSS MCHC (RBC) [Mass/Vol] 34.2 g/dL Normal 31.4 - 36.0 gm/dL [facility] HemeAutoSS MCV (RBC) [Entitic vol] 92.0 fL Normal 80.0 - 100.0 fL [facility] HemeAutoSS Platelet mean volume (Bld) [Entitic vol] 8.6 fL Normal 6.4 - 10.8 fL [facility] HemeAutoSS Platelets (Bld) [#/Vol] 213.0 E9/L Normal 150. 0 - 500.0 E9/L [facility] HemeAutoSS RBC (Bld) [#/Vol] 4.2 E12/L Low 4.3 - 5.9 E12/L [facility] HemeAutoSS WBC corrected for nucl RBC Auto (Bld) [#/Vol] 6.6 E9/L Normal 4.0 - 11.0 E9/L [facility] HemeAutoSS SEROLOGYOrdered By: Charlotte stanford on 07-16-2021 HCG.beta subunit (U) [Moles/Vol] Negative Normal [facility] Man Sero URINALYSISOrdered By: Charlotte Rosales on 07-16-2021 Bilirubin Ql (U) Negative (07/16/21 3:20 PM) Normal Negative [facility] UA Auto SS Clarity (U) Clear (07/16/21 3:20 PM) Normal Clear [facility] UA Auto SS Color (U) Yellow (07/16/21 3:20 PM) Normal Yellow [facility] UA Auto SS Epithelial cells.squamous LM.HPF (Urine sed) [#/Area] 0-2 /HPF Normal 0-2/HPF [facility] UA Aut o SS Glucose Test strip (U) [Mass/Vol] Negative (07/16/21 3:20 PM) Normal Negative [facility] UA Auto SS Hemoglobin Ql (U) 1+ *ABN* (07/16/21 3:20 PM) Invalid Interpretation Code Negative [facility] UA Auto SS Ketones (U) [Mass/Vol] Negative (07/16/21 3:20 PM) Normal Negative [facility] UA Auto SS [place].plasma/[place].R BC (Bld) [Mass ratio] 4-20 /HPF Normal 0-3/HPF [facility] UA Au to SS Nitrite Ql (U) Negative (07/16/21 3:20 [...] Desc Clean Catch (07/16/21 3:20 PM) Normal [facility] Auto SS Urobilinogen Qn (U) 0.2337513 {Paco'U}/dL Normal 0.0 - 1.0 EU/dL [facility] UA Auto SS WBC Auto Ql (U) Negative (07/16/21 3:20 PM) Normal Negative [facility] UA Auto SS WBC LM.HPF (Urine sed) [#/Area] 0-5 /HPF Normal 0-5/HPF [facility] UA Auto SS Progress Noteon 07-05-2017 [employer] Authentication Interface Message Text GeneticsSera for ReferralSocorro, her partner Uli, her mother and sister were seen on 07/05/2017 at [facility] by myself and Brenda [facility]. Chandana Huitron MD requested a genetic consult [...] There is no known chromosome abnormality known toBreannia, as an underlying etiology for the two [...] Ultrasound Amniocentesis Maternal serum cell-free DNA screening Whigham carrier screeningFollowing our discussion Socorro elected to have: Ultrasound only and declined additional screening and testing.Ultrasound FindingsThe ultrasound was consistent with prior ultrasound dating. 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 Otherwise the ultrasound was unremarkable. The cervicallength was in the normal range. Please refer to the ultrasound report for fulldetails.Follow-up No follow-up in [facility] necessary unless additional concerns arise. Recommend that Socorro's mother follow-up with her physician in regard to herfamily history of early-onset heart conditions Recommend genetic consult for Socorro's paternal first cousins to rule out agenetic etiology for their defects/developmental delays which may provideimportant etiologic information for their nuclear family as well as other familymembers. Follow up as clinically indicated. Mitch Phillips MD and Alix Hendricks Ana [facility] Vital Signs Date Time Vital Sign Value Performing Clinician Facility 12-18-2024 15:27-0400 Body mass index (BMI) [Ratio] 27.64 kg/m2 Nia GUILLEN Work Phone: [facility] 12-18-2024 15:27-0400 Body weight 82.46 kg Nia GUILLEN Work Phone: [facility] 12-18-2024 15:27-0400 Diastolic blood pressure 70 mm[Hg] Nia GUILLEN Work Phone: [facility] 12-18-2024 15:27-0400 Systolic blood pressure 120 mm[Hg] Nia GUILLEN Work Phone: [facility] 09-26-2024 12:38-0400 Body height 172.7 cm Raquel Nolan MD Work Phone: [facility] 09-26-2024 12:38-0400 Body mass index (BMI) [Ratio] 27.25 kg/m2 Raquel Nolan MD Work Phone: [facility] 09-26-2024 12:38-0400 Body temperature 98.2 [degF] Raquel Nolan MD Work Phone: [facility] 09-26-2024 12:38-0400 Body weight 81.28 kg Raquel Nolan MD Work Phone: [facility] 09-26-2024 12:38-0400 Diastolic blood pressure 70 mm[Hg] Raquel Nolan MD Work Phone: [facility] 09-26-2024 12:38-0400 Heart rate 71 /min Raquel Nolan MD Work Phone: [facility] 09-26-2024 12:38-0400 SaO2% (BldA) [Mass fraction] 98 % Raquel Nolan MD Work Phone: [facility] 09-26-2024 12:38-0400 Systolic blood pressure 118 mm[Hg] Raquel Nolan MD Work Phone: [facility] 06-15-2024 10:46-0400 Body height 172.7 cm Raquel Nolan MD Work Phone: [facility] 06-15-2024 10:46-0400 Body mass index (BMI) [Ratio] 26.94 kg/m2 Raquel Nolan MD Work Phone: [facility] 06-15-2024 10:46-0400 Body temperature 98.2 [degF] Raquel Nolan MD Work Phone: [facility] 06-15-2024 10:46-0400 Body weight 80.38 kg Raquel Nolan MD Work Phone: [facility] 06-15-2024 10:46-0400 Diastolic blood pressure 72 mm[Hg] Raquel Nolan MD Work Phone: [facility] 06-15-2024 10:46-0400 Heart rate 66 /min aRquel Nolan MD Work Phone: [facility] 06-15-2024 10:46-0400 SaO2% (BldA) [Mass fraction] 99 % Raquel Nolan MD Work Phone: [facility] 06-15-2024 10:46-0400 Systolic blood pressure 118 mm[Hg] Raquel Nolan MD Work Phone: [facility] 04-16-2024 14:00-0500 Diastolic blood pressure 62 mm[Hg] Narinder José [facility] 04-16-2024 14:00-0500 Heart rate 61 /min Narinder José [facility] 04-16-2024 14:00-0500 Mean blood pressure 79 mm[Hg] Narinder José [facility] 04-16-2024 14:00-0500 Respiratory rate 16 /min Narinder José [facility] 04-16-2024 14:00-0500 SaO2% (BldA) [Mass fraction] 97 % Narinder José [facility] 04-16-2024 14:00-0500 Systolic blood pressure 114 mm[Hg] Narinder José [facility] 04-16-2024 01:00-0500 Diastolic blood pressure 50 mm[Hg] Narinder José [facility] 04-16-2024 01:00-0500 Heart rate 60 /min Narinder José [facility] 04-16-2024 01:00-0500 Mean blood pressure 64 mm[Hg] Narinder José [facility] 04-16-2024 01:00-0500 SaO2% (BldA) [Mass fraction] 97 % Narinder José [facility] 04-16-2024 01:00-0500 Systolic blood pressure 91 mm[Hg] Narinder José [facility] 04-16-2024 00:00-0500 Diastolic blood pressure 71 mm[Hg] Narinder José [facility] 04-16-2024 00:00-0500 Heart rate 63 /min Narinder Kumar [facility] 04-16-2024 00:00-0500 Mean blood pressure 88 mm[Hg] Narinder Kumar [facility] 04-16-2024 00:00-0500 Respiratory rate 16 /min Narinder Kumar [facility] 04-16-2024 00:00-0500 SaO2% (BldA) [Mass fraction] 99 % Narinder Kumar [facility] 04-16-2024 00:00-0500 Systolic blood pressure 121 mm[Hg] Narinder Kumar [facility] 04-15-2024 21:11-0500 Body temperature 97.52 [degF] Narinder Kumar [facility] 04-15-2024 21:11-0500 Heart rate 68 /min Narinder Kumar [facility] 04-15-2024 21:11-0500 Respiratory rate 18 /min Narinder Kumar [facility] 04-12-2024 13:46-0500 Blood Pressure Location Ann Daviddner [facility] 04-12-2024 13:46-0500 Body temperature 98.24 [degF] Ann Bordner [facility] 04-12-2024 13:46-0500 Diastolic blood pressure 72 mm[Hg] Ann Bordner [facility] 04-12-2024 13:46-0500 Heart rate 79 /min Ann Bordner [facility] 04-12-2024 13:46-0500 Respiratory rate 18 /min Ann Warner [facility] 04-12-2024 13:46-0500 SaO2% (BldA) [Mass fraction] 99 % Ann Warner [facility] 04-12-2024 13:46-0500 Systolic blood pressure 122 mm[Hg] Ann Warner [facility] 03-22-2024 12:38-0500 Body height 172.7 cm Raquel Nolan MD Work Phone: [facility] 03-22-2024 12:38-0500 Body mass index (BMI) [Ratio] 27.31 kg/m2 Raquel Nolan MD Work Phone: [facility] 03-22-2024 12:38-0500 Body temperature 98.01 [degF] Raquel Nolan MD Work Phone: [facility] 03-22-2024 12:38-0500 Body weight 81.47 kg Raquel Nolan MD Work Phone: [facility] 03-22-2024 12:38-0500 Diastolic blood pressure 70 mm[Hg] Raquel Nolan MD Work Phone: [facility] 03-22-2024 12:38-0500 Heart rate 69 /min Raquel Nolan MD Work Phone: [facility] 03-22-2024 12:38-0500 SaO2% (BldA) [Mass fraction] 99 % Raquel Nolan MD Work Phone: [facility] 03-22-2024 12:38-0500 Systolic blood pressure 124 mm[Hg] Raquel Nolan MD Work Phone: [facility] 03-20-2024 08:55-0500 Diastolic blood pressure 71 mm[Hg] Roque Harris [facility] 03-20-2024 08:55-0500 Heart rate 53 /min Roque Harris [facility] 03-20-2024 08:55-0500 Mean blood pressure 83 mm[Hg] Roque Harris [facility] 03-20-2024 08:55-0500 Respiratory rate 15 /min Roque Harris [facility] 03-20-2024 08:55-0500 SaO2% (BldA) [Mass fraction] 100 % Roque Harris [facility] 03-20-2024 08:55-0500 Systolic blood pressure 108 mm[Hg] Roque Harris [facility] 03-20-2024 07:19-0500 Body temperature 98.24 [degF] Roque Harris [facility] 03-20-2024 07:19-0500 Diastolic blood pressure 88 mm[Hg] Roque Harris [facility] 03-20-2024 07:19-0500 Heart rate 79 /min Roque Harris [facility] 03-20-2024 07:19-0500 Respiratory rate 16 /min Roque Harris [facility] 03-20-2024 07:19-0500 SaO2% (BldA) [Mass fraction] 100 % Roque Harris [facility] 03-20-2024 07:19-0500 Systolic blood pressure 132 mm[Hg] Roque Cabrerae [facility] 12-13-2023 15:16-0400 Body mass index (BMI) [Ratio] 27.58 kg/m2 Nia GUILLEN Work Phone: [facility] 12-13-2023 15:16-0400 Body weight 82.28 kg Nia GUILLEN Work Phone: [facility] 12-13-2023 15:16-0400 Diastolic blood pressure 60 mm[Hg] Nia GUILLEN Work Phone: [facility] 12-13-2023 15:16-0400 Systolic blood pressure 100 mm[Hg] Nia GUILLEN Work Phone: [facility] 06-29-2023 23:53-0400 Diastolic blood pressure 64 mm[Hg] Kaylinn Dokken [facility] 06-29-2023 23:53-0400 Heart rate 65 /min Kaylinn Dokken [facility] 06-29-2023 23:53-0400 Mean blood pressure 79 mm[Hg] Kaylinn Dokken [facility] 06-29-2023 23:53-0400 Respiratory rate 16 /min Kaylinn Dokken [facility] 06-29-2023 23:53-0400 SaO2% (BldA) [Mass fraction] 98 % Kaylinn Dokken [facility] 06-29-2023 23:53-0400 Systolic blood pressure 110 mm[Hg] Kaylinn Dokken [facility] 06-29-2023 22:37-0400 Diastolic blood pressure 65 mm[Hg] Kaylinn Dokken [facility] 06-29-2023 22:37-0400 Heart rate 62 /min Kaylinn Dokken [facility] 06-29-2023 22:37-0400 Mean blood pressure 81 mm[Hg] Kaylinn Dokken [facility] 03-26-2024 22:37-0400 Respiratory rate 16 /min Kaylinn Dokken [facility] 06-29-2023 22:37-0400 SaO2% (BldA) [Mass fraction] 98 % Kaylinn Dokken [facility] 06-29-2023 22:37-0400 Systolic blood pressure 114 mm[Hg] Kaylinn Dokken [facility] 06-29-2023 21:29-0400 Diastolic blood pressure 57 mm[Hg] Kaylinn Dokken [facility] 06-29-2023 21:29-0400 Heart rate 58 /min Kaylinn Dokken [facility] 06-29-2023 21:29-0400 Mean blood pressure 76 mm[Hg] Kaylinn Dokken [facility] 06-29-2023 21:29-0400 Respiratory rate 16 /min Kaylinn Dokken [facility] 06-29-2023 21:29-0400 SaO2% (BldA) [Mass fraction] 99 % Kaylinn Dokken [facility] 06-29-2023 21:29-0400 Systolic blood pressure 115 mm[Hg] Kaylinn Dokken [facility] 06-29-2023 20:10-0400 Heart rate 61 /min Kaylinn Dokken [facility] 06-29-2023 19:25-0400 Body temperature 98.42 [degF] Kaylinn Dokken [facility] 06-29-2023 19:25-0400 Heart rate 62 /min Kaylinn Dokken [facility] 02-16-2023 07:05-0500 Diastolic blood pressure 56 mm[Hg] Jacinto Maury [facility] 02-16-2023 07:05-0500 Heart rate 58 /min Jacinto Maury [facility] 02-16-2023 07:05-0500 Mean blood pressure 73 mm[Hg] Jacinto Maury [facility] 02-16-2023 07:05-0500 Respiratory rate 18 /min Jacinto Maury [facility] 02-16-2023 07:05-0500 SaO2% (BldA) [Mass fraction] 99 % Jacinto Maury [facility] 02-16-2023 07:05-0500 Systolic blood pressure 106 mm[Hg] Jacinto Maury [facility] 02-16-2023 06:16-0500 Diastolic blood pressure 68 mm[Hg] Jacinto Maury [facility] 02-16-2023 06:16-0500 Heart rate 81 /min Jacinto Maury [facility] 02-16-2023 06:16-0500 Mean blood pressure 81 mm[Hg] Jacinto Maury [facility] 02-16-2023 06:16-0500 Respiratory rate 18 /min Jacinto Maury [facility] 02-16-2023 06:16-0500 SaO2% (BldA) [Mass fraction] 99 % Jacinto Maury [facility] 02-16-2023 06:16-0500 Systolic blood pressure 106 mm[Hg] Jacinto Maury [facility] 02-16-2023 05:18-0500 gluc 100 mg/dL Jacinto Maury [facility] 02-16-2023 05:18-0500 gluc Jacinto Maury [facility] 02-16-2023 05:12-0500 Body temperature 97.7 [degF] Jacinto Maury [facility] 02-16-2023 05:12-0500 Diastolic blood pressure 75 mm[Hg] Jacinto Maury [facility] 02-16-2023 05:12-0500 Heart rate 73 /min Jacinto Maury [facility] 02-16-2023 05:12-0500 Respiratory rate 16 /min [facility] [facility] 02-16-2023 05:12-0500 SaO2% (BldA) [Mass fraction] 98 % Jacinto Maury [facility] 02-16-2023 05:12-0500 Systolic blood pressure 120 mm[Hg] Jacinto Maury [facility] 10-10-2021 13:50-0400 Body height 175.3 cm Javier Gutierrez MD Work Phone: [facility] 10-10-2021 13:50-0400 Body temperature 96.69 [degF] Javier Gutierrez MD Work Phone: [facility] 10-10-2021 13:50-0400 Body weight 75.52 kg Javier Gutierrez MD Work Phone: [facility] 10-10-2021 13:50-0400 Diastolic blood pressure 68 mm[Hg] Javier Gutierrez MD Work Phone: [facility] 10-10-2021 13:50-0400 Heart rate 67 /min Javier Gutierrez MD Work Phone: [facility] 10-10-2021 13:50-0400 SaO2% (BldA) [Mass fraction] 98 % Javier Gutierrez MD Work Phone: [facility] 10-10-2021 13:50-0400 Systolic blood pressure 116 mm[Hg] Javier Gutierrez MD Work Phone: [facility] 09-18-2021 02:53-0400 Diastolic blood pressure 58 mm[Hg] Kaylinn Dokken [facility] 09-18-2021 02:53-0400 Heart rate 58 /min Kaylinn Dokken [facility] 09-18-2021 02:53-0400 Hourly Rounding Kaylinn Dokken [facility] 09-18-2021 02:53-0400 Respiratory rate 16 /min Kaylinn Dokken [facility] 09-18-2021 02:53-0400 SaO2% (BldA) [Mass fraction] 100 % Kaylinn Dokken [facility] 09-18-2021 02:53-0400 Systolic blood pressure 101 mm[Hg] Kaylinn Dokken [facility] 09-18-2021 01:45-0400 Diastolic blood pressure 52 mm[Hg] Kaylinn Dokken [facility] 09-18-2021 01:45-0400 Heart rate 61 /min Kaylinn Dokken [facility] 09-18-2021 01:45-0400 Hourly Rounding Kaylinn Dokken [facility] 09-18-2021 01:45-0400 Respiratory rate 18 /min Kaylinn Dokken [facility] 09-18-2021 01:45-0400 SaO2% (BldA) [Mass fraction] 98 % Kaylinn Dokken [facility] 09-18-2021 01:45-0400 Systolic blood pressure 97 mm[Hg] Kaylinn Dokken [facility] 09-18-2021 00:15-0400 Hourly Rounding Kaylinn Dokken [facility] 09-17-2021 23:50-0400 Body temperature 97.88 [degF] Kaylinn Dokken [facility] 09-17-2021 23:50-0400 Diastolic blood pressure 61 mm[Hg] Kaylinn Dokken [facility] 09-17-2021 23:50-0400 Heart rate 70 /min Kaylinn Dokken [facility] 09-17-2021 23:50-0400 Respiratory rate 18 /min Kaylinn Dokken [facility] 09-17-2021 23:50-0400 SaO2% (BldA) [Mass fraction] 98 % Kaylinn Dokken [facility] 09-17-2021 23:50-0400 Systolic blood pressure 107 mm[Hg] Kaylinn Dokken [facility] 09-17-2021 22:06-0400 Body temperature 98.06 [degF] Kaylinn Dokken [facility] 07-16-2021 16:39-0400 Diastolic blood pressure 54 mm[Hg[facility] 16:39-0400 Heart rate 64 /min [facility] 07-16-2021 16:39-0400 Mean blood pressure 73 mm[Hg] [facility] 07-16-2021 16:39-0400 Respiratory rate 16 /min [facility] 07-16-2021 16:39-0400 SaO2% (BldA) [Mass fraction] 99 % [facility] 07-16-2021 16:39-0400 Systolic blood pressure 111 mm[Hg] [facility] 07-16-2021 16:00-0400 Hourly Rounding [facility] 07-16-2021 16:00-0400 Promise to Return [facility] 07-16-2021 14:24-0400 Body temperature 98.42 [degF] [facility] 07-16-2021 14:24-0400 Diastolic blood pressure 81 mm[Hg] [facility] 07-16-2021 14:24-0400 Heart rate 67 /min [facility] 07-16-2021 14:24-0400 Respiratory rate 16 /min [facility] 07-16-2021 14:24-0400 SaO2% (BldA) [Mass fraction] 99 % [facility] 07-16-2021 14:24-0400 Systolic blood pressure 139 mm[Hg] [facility] Encounters Encounter Date Encounter Type Care Provider Facility Start: 12-18-2024 End: 12-18-2024 Patient encounter procedure Nia GUILLEN Work Phone: [facility] Work Phone: Start: 12-18-2024 End: 12-18-2024 Periodic preventive med est patient 18-39 yrs Nia GUILLEN Work Phone: [facility] Comment on above: Well woman exam with routine gynecological exam; UTI symptoms; Exposure to STD; Vaginal discharge Start: 12-18-2024 End: 12-18-2024 Bamboo flowsheet Nia GUILLEN Work Phone: [facility] Start: 12-18-2024 End: 12-18-2024 Bamboo flowsheet Nia GULILEN Work Phone: [facility] Start: 12-06-2024 End: 12-06-2024 ambulatory CHERISE A DONNAMILLER Not Available Start: 12-06-2024 End: 12-06-2024 Office outpatient visit 15 minutes Cherise Jaimes NP [facility] Comment on above: Acute diarrhea (Prim jyoti Dx); Nausea; Abdominal cramping Start: 09-26-2024 End: 09-26-2024 Bamboo flowsanali Nolan MD Work Phone: [facility] Start: 09-26-2024 End: 09-26-2024 Bamboo flowsanali Nolan MD Work Phone: [facility] Start: 09-26-2024 End: 09-26-2024 Office outpatient visit 15 minutes Raquel Nolan MD Work Phone: [facility] Comment on above: Intractable episodic headache, unspecified headache type (Primary Dx); Nausea; Facial tingling; Overweight; BMI 27.0-27.9,adult Start: 09-26-2024 End: 09-26-2024 ambulatory RAQUEL NOLAN Not Available Start: 06-15-2024 End: 06-15-2024 Bamboo scotty Nolan MD Work Phone: [facility] Start: 06-15-2024 End: 06-15-2024 Bamboo scotty Nolan MD Work Phone: [facility] Start: 06-15-2024 End: 06-15-2024 Office outpatient visit 25 minutes Raquel Nolan MD Work Phone: [facility] Comment on above: Leukocytosis, unspec ified type (Primary Dx); Gastroesophageal reflux disease, unspecified whether esophagitis present; BMI 26.0-26.9,adult; Overweight Start: 06-15-2024 End: 06-15-2024 ambulatory RAQUEL NOLAN Not Available Start: 06-11-2024 End: 06-11-2024 Emergency department patient visit Elver Gonzales Facility:[facility] Start: 04-15-2024 End: 04-16-2024 Emergency department patient visit Narinder Kumar [facility] Start: 04-12-2024 End: 04-12-2024 ambulatory Ann Warner Facility:[facility] Start: 04-12-2024 End: 04-12-2024 Patient encounter procedure Ann Warner [facility] Start: 03-22-2024 End: 03-22-2024 Bambobobby flowsanali Nolan MD Work Phone: [facility] Start: 03-22-2024 End: 03-22-2024 Mirza Nolan MD Work Phone: [facility] Start: 03-22-2024 End: 03-22-2024 Office outpatient visit 15 minutes Raquel Nolan MD Work Phone: [facility] Comment on above: Acute cough (Primary Dx); Nausea; Nasal congestion; Ear fullness, bilateral; BMI 27.0-27.9,adult; Overweight Start: 03-22-2024 End: 03-22-2024 ambulatory RAQUEL NOLAN Not Available Start: 03-20-2024 End: 03-20-2024 Emergency department patient visit Roque Harris Facility:[facility] Start: 03-15-2024 End: 03-15-2024 ambulatory Ann Warner Facility:[facility] Start: 12-22-2023 End: 12-22-2023 Bamboo flowsheet Nia GUILLEN Work Phone: [facility] Start: 12-22-2023 End: 12-22-2023 Bamboo flowsheet Nia GUILLEN Work Phone: [facility] Start: 12-22-2023 End: 12-22-2023 ambulatory NIA COLBERT Not Available Start: 12-22-2023 End: 12-22-2023 Office outpatient visit 10 minutes Nia GUILLEN Work Phone: [facility] Comment on above: Wellness examination (Primary Dx) Start: 12-22-2023 End: 12-22-2023 Patient encounter status Nia GUILLEN Work Phone: [facility] Work Phone: Start: 12-14-2023 End: 12-14-2023 ambulatory NIA COLBERT Facility:[facility] Start: 12-14-2023 End: 12-14-2023 Patient encounter procedure NIA COLBERT [facility] Start: 12-13-2023 End: 12-13-2023 Patient encounter procedure Nia GUILLEN Work Phone: [facility] Work Phone: Start: 12-13-2023 End: 12-13-2023 Periodic preventive med est patient 18-39 yrs Nia GUILLEN Work Phone: [facility] Comment on above: Well woman exam with routine gynecological exam; PCOS (polycystic ovarian syndrome); Nausea Start: 12-13-2023 End: 12-13-2023 ambulatory NIA COLBERT Not Available Start: 12-13-2023 End: 12-13-2023 Bamboo flowsheet Nia GUILLEN Work Phone: [facility] Start: 12-13-2023 End: 12-17-2023 Clinisync Result Encounter Nia GUILLEN Work Phone: [facility] Department Unsolicited Start: 12-13-2023 End: 12-17-2023 Clinisync Result Encounter Nia GUILLEN Work Phone: [facility] Unsolicited Start: 06-29-2023 End: 06-30-2023 Emergency department patient visit Amberly Whitehead [facility] Start: 02-16-2023 End: 02-16-2023 Emergency department patient visit Jacinto Mendiola [facility] Start: 12-18-2022 End: 12-18-2022 Patient encounter procedure Tony Aguirre [facility] Start: 12-18-2022 End: 12-18-2022 ambulatory Tony Aguirre Facility:[facility] Start: 06-24-2022 End: 06-24-[address] SHAAN WITT . Facility: Start: 06-11-2022 Encounter for preprocedural cardiovascular examination DR SHAAN WITT . [facility] Start: 06-10-2022 End: 06-11-[address] SHAAN WITT . Facility: Start: 06-10-2022 End: 06-11-2022 Encounter for preprocedural cardiovascular examination DR SHAAN WITT . Facility:[facility] Start: 11-19-2021 End: 11-19-2021 Patient encounter procedure Jeff ROACH [facility] Start: 10-18-2021 End: 10-19-[address] SHAAN WITT . Facility:[facility] Start: 10-14-[address] SHAAN WITT . Facili ty:[facility] Start: 10-10-2021 End: 10-10-2021 Patient encounter procedure Javier Gutierrez MD Work Phone: Gastroenterology Comment on above: Constipation, unspec ified constipation type (Primary Dx) Start: 09-17-2021 End: 09-18-2021 Emergency department patient visit Amberly Whitehead [facility] Start: 08-07-2021 End: 08-07-2021 Lab Drop off Fernanda MUNROE [facility] Start: 07-16-2021 End: 07-16-2021 Emergency department patient visit Lucila Levin [facility] Start: 07-05-2017 Ambulatory [facility]CH DE LA FU[facility] Procedures Date Procedure Procedure Detail Performing Clinician Start: 12-18-2024 Urnls dip stick/tabl et rgnt non-auto w/o micrscp Nia GUILLEN Work Phone: Start: 12-13-2023 IGP,APTIMA HPV,AGE GDLN Nia GUILLEN Work Phone: Start: 07-18-2019 Insertion of intraut erine contraceptive device Lucila Levin Ligation of fallopian tube N peterson Mendiola Plan of Treatment Date Care Activity Detail Author Start: 12-25-2025 End: 12-25-2025 Patient encounter procedure 12/25/2025 3:00 PM EDT Procedure Visit [facility] [address] [place] [address] Nia Colbert PA [address] [place] [address] [facility] Start: 12-18-2024 End: 12-18-2024 Patient encounter procedure [facility] Comment on above: Arrived Start: 12-04-2024 Influenza vaccination [facility] Start: 09-26-2024 End: 09-26-2024 Patient encounter procedure 09/26/2024 12:40 PM EDT Office Visit [facility] [address] [place] [address] Raquel Nolan MD [address] [place] [address] Arrived [facility] Comment on above: Arrived Start: 06-15-2024 End: 06-15-2025 CBC W Auto Differential panel - Blood CBC and differential Lab Routine Leukocytosis, unspecified type Expected: 06/15/2024 (Approximate), Expires: 06/15/2025 [facility] Work Phone: Comment on above: Expected: 06/15/2024 (Approximate), Expires: 06/15/2025 Start: 06-15-2024 End: 06-15-2024 Patient encounter procedure 06/15/2024 10:40 AM EDT Office Visit [facility] [address] [place] [address] Raquel Nolan MD [address] [place] [address] Arrived [facility] Comment on above: Arrived Start: 03-22-2024 End: 03-22-2024 Patient encounter procedure 03/22/2024 12:40 PM EST Office Visit [facility] [address] [place] [id number] Raquel Nolan MD [address] [place] [address] Arrived [facility] Comment on above: Arrived Start: 12-13-2023 End: 12-13-2023 Patient encounter procedure 12/13/2023 3:00 PM EDT Office Visit [facility] [address] [place] [phone] Nia Colbert PA [address] [place] [address] Arrived [facility] Comment on above: Arrived Start: 12-13-2023 End: 12-12-2024 Lipase [Enzymatic activity/volume] in Serum or Plasma Lipase Lab Routine Well woman exam with routine gynecological exam PCOS (polycystic ovarian syndrome) Expected: 12/13/2023 (Approximate), Expires: 12/12/2024 [facility] Comment on above: Expected: 12/13/2023 (Approximate), Expires: 12/12/2024 Start: 12-13-2023 End: 12-12-2024 Lipid 1996 panel - Serum or Plasma Lipid panel Lab Routine Well woman exam with routine gynecological exam PCOS (polycystic ovarian syndrome) Expected: 12/13/2023 (Approximate), Expires: 12/12/2024 [facility] Comment on above: Expected: 12/13/2023 (Approximate), Expires: 12/12/2024 Start: 12-05-2023 Influenza vaccination Influenza Vacc ine (#1) [facility] Start: 12-04-2021 Influenza vaccination INFLUENZA (#1) [facility] Start: 11-04-2019 PAP TESTING PAP TESTING [facility] Start: 2017 Urine microalbumin profile DTAP,TDAP,TD (1 - Tdap) [facility] Start: 2016 CHLAMYDIA SCREENING (18-24) CHLAMYDIA SCREENING (18-24) [facility] Start: 2016 GC (GONORRHEA) SCREE ADRIANNA (18-24) GC (GONORRHEA) SCREENING (18-24) [facility] Start: 2016 HEPATITIS C SCREENING HEPATITIS C SC REENING [facility] Start: 2016 HIV SCREENING HIV SCREENING [facility] Start: 2012 PEDS TO ADULT TRANSI TION ANNUAL ASSESSMENT PEDS TO ADULT TRANSITION ANNUAL ASSESSMENT [facility] Start: 2010 Adult depression screening assessment DEPRESSION SCREENING [facility] Start: 2010 PEDS TO ADULT TRANSI TION INITIAL DISCUSSION PEDS TO ADULT TRANSITION INITIAL DISCUSSION [facility] Start: 2009 HPV VACCINE (1 - 2-d ose series) HPV VACCINE (1 - 2-dose series) [facility] Start: 2008 MENINGOCOCCAL B: Consider based on risk (1 of 2 - Risk Bexsero 2-dose series) MENINGOCOCCAL B: Consider based on risk (1 of 2 - Risk Bexsero 2-dose series) [facility] Start: 2004 PNEUMOCOCCAL (1 - PCV) PNEUMOCOCCAL (1 - PCV) [facility] Start: 05-06-1999 COVID-19 VACCINE (#1) COVID-19 VACCI NE (#1) [facility] End: 10-10-2022 ADULT [place] [facility]ULT [place] [facility] Endoscopy Routine Constipation, unspecified constipation type 1 Occurrences starting 10/10/2021 until 10/10/2022 [facility] Work Phone: Comment on above: 1 Occurrences starti ng 10/10/2021 until 10/10/2022 CBC W Auto Different ial panel - Blood CBC and differential Lab Routine Well woman exam with routine gynecological exam PCOS (polycystic ovarian syndrome) Ordered: 12/13/2023 [facility] Comment on above: Ordered: 12/13/2023 CHLAMYDIA TRACHOMATI S (GENITO/STI) CHLAMYDIA TRACHOMATIS (GENITO/STI) Lab Routine Vaginal discharge Ordered: 12/18/2024 [facility] Comment on above: Ordered: 12/18/2024 Comprehensive metabo lic 2000 panel - Serum or Plasma Comprehensive metabolic panel Lab Routine Well woman exam with routine gynecological exam PCOS (polycystic ovarian syndrome) Ordered: 12/13/2023 [facility] Comment on above: Ordered: 12/13/2023 Cytology Cervical or vaginal smear or scraping study Pap Smear Pathology and Cytology Routine Well woman exam with routine gynecological exam Ordered: 12/13/2023 [facility] Work Phone: Comment on above: Ordered: 12/13/2023 Cytology Cervical or vaginal smear or scraping study Pap Smear Pathology and Cytology Routine Well woman exam with routine gynecological exam Ordered: 12/18/2024 [facility] Work Phone: Comment on above: Ordered: 12/18/2024 Hemoglobin A1c/Hemoglobin.total in Blood Hemoglobin A1c Lab Routine Well woman exam with routine gynecological exam PCOS (polycystic ovarian syndrome) Ordered: 12/13/2023 [facility] Comment on above: Ordered: 12/13/2023 Neisseria gonorrhoea e DNA [Presence] in Unspecified specimen by PRASHANT with probe detection Neisseria gonorrhea DNA probe, direct Lab Routine Vaginal discharge Ordered: 12/18/2024 [facility] Comment on above: Ordered: 12/18/2024 SURESWAB(R) ADVANCED VAGINITIS PLUS, TMA SURESWAB(R) ADVANCED VAGINITIS PLUS, TMA Pathology and Cytology Routine Exposure to STD Ordered: 12/18/2024 [facility] Comment on above: Ordered: 12/18/2024 Thyrotropin [Units/volume] in Serum or Plasma TSH Lab Routine Well woman exam with routine gynecological exam PCOS (polycystic ovarian syndrome) Ordered: 12/13/2023 [facility] Comment on above: Ordered: [facility]13[facility] Immunization Date Immunization Notes Care Provider Fa [facility] 06-19-2019 tetanus toxoid, redu jace diphtheria toxoid, and acellular pertussis vaccine, adsorbed Nia GUILLEN Work Phone: [facility] 06-19-2019 tetanus toxoid, unspecified formulation Gilkim Lópezaugusto [facility] Comment on above: Result Comment: Done at Health Department Result Comment: Done at Health Department 09-15-2017 tetanus toxoid, redu jace diphtheria toxoid, and acellular pertussis vaccine, adsorbed Aguilar SALAM [facility] 01-27-2017 hepatitis A vaccine, unspecified formulation Aguilar SALAM [facility] 01-27-2017 HPV, unspecified formulation Aguilar SALAM [facility] 01-27-2017 meningococcal B vaccine, fully recombinant Aguilar SALAM [facility] 11-26-2016 HPV, unspecified formulation Aguilar SALAM [facility] 12-13-2015 meningococcal ACWY vaccine, unspecified formulation Aguilar SALAM [facility] 12-13-2015 meningococcal polysaccharide (groups A, C, Y and W-135) diphtheria toxoid conjugate vaccine (MCV4P) Nia GUILLEN Work Phone: [facility] 11-24-2010 tetanus toxoid, redu jace diphtheria toxoid, and acellular pertussis vaccine, adsorbed Aguilar SALAM [facility] 02-21-2009 novel [id number], preservative-free, injectable Nia GUILLEN Work Phone: [facility] 01-09-2004 diphtheria, tetanus toxoids and acellular pertussis vaccine Nia GUILLEN Work Phone: [facility] 01-09-2004 diphtheria, tetanus toxoids and acellular pertussis vaccine, unspecified formulation Nia GUILLEN Work Phone: [facility] 01-09-2004 DTaP, unspecified formulation Aguilar STEVEAM [facility] 01-09-2004 measles, mumps and rubella virus vaccine Aguilar SALAM [facility] 01-09-2004 poliovirus vaccine, unspecified formulation Nia GUILLEN Work Phone: [facility] 07-21-2000 pneumococcal conjuga te vaccine, 7 valent Nia GUILLEN Work Phone: [facility] 03-24-2000 pneumococcal conjuga te vaccine, 7 valent Nia GUILLEN Work Phone: [facility] 12-24-1999 diphtheria, tetanus toxoids and acellular pertussis vaccine Nia GUILLEN Work Phone: [facility] 12-24-1999 diphtheria, tetanus toxoids and acellular pertussis vaccine, unspecified formulation Nia GUILLEN Work Phone: [facility] 12-24-1999 DTaP, unspecified formulation Aguilar STEVEAM [facility] 12-24-1999 haemophilus influenz ae type b vaccine, PRP-OMP conjugate Aguilar [employer] [facility] 12-24-1999 measles, mumps and rubella virus vaccine Aguilar SALAM [facility] 12-24-1999 poliovirus vaccine, inactivated Nia GUILLEN Work Phone: [facility] 12-24-1999 [facility]iovirus vaccine, unspecified [facility] 04-30-1999 diphtheria, tetanus toxoids and acellular pertussis vaccine Nia GUILLEN Work Phone: [facility] 04-30-1999 diphtheria, tetanus toxoids and acellular pertussis vaccine, unspecified formulation Nia GUILLEN Work Phone: [facility] 04-30-1999 DTaP, unspecified formulation Aguilar [employer] [facility] 04-30-1999 haemophilus influenz ae type b vaccine, PRP-OMP conjugate [facility] [employer] [facility] 04-30-1999 hepatitis B vaccine, pediatric or pediatric/adolescent dosage Aguilar SALAM [facility] 02-26-1999 diphtheria, tetanus toxoids and acellular pertussis vaccine Nia GUILLEN Work Phone: [facility] 02-26-1999 diphtheria, tetanus toxoids and acellular pertussis vaccine, unspecified formulation Nia GUILLEN Work Phone: [facility] 02-26-1999 DTaP, unspecified formulation [facility] 02-26-1999 haemophilus influenz ae type b vaccine, PRP-OMP conjugate [facility] 02-26-1999 poliovirus vaccine, inactivated Nia GUILLEN Work Phone: [facility] 02-26-1999 poliovirus vaccine, unspecified formulation [facility] 1998 diphtheria, tetanus toxoids and acellular pertussis vaccine Nia GUILLEN Work Phone: [facility] 1998 diphtheria, tetanus toxoids and acellular pertussis vaccine, unspecified formulation Nia GUILLEN Work Phone: [facility] 1998 DTaP, unspecified formulation [facility] [employer] [facility] 1998 haemophilus influenz ae type b vaccine, PRP-OMP conjugate [facility] [employer] [facility] 1998 hepatitis B vaccine, pediatric or pediatric/adolescent dosage [facility] [facility] 2000 poliovirus vaccine, inactivated Nia GUILLEN Work Phone: [facility] 1998 poliovirus vaccine, unspecified formulation [facility] 1998 hepatitis B vaccine, pediatric or pediatric/adolescent dosage [employer] [facility] NEGATED: Highlighted row has not occurred!03-21-2019 influenza virus vaccine, live, attenuated, for intranasal use Lucila Levin [facility] Payers Date Payer Category Payer [facility] [id number] 2023 Unknown [facility] [id number] 2023-Present [phone] [address] [place] [address] [id number]. [id number] 2023 Unknown [id number] 2017 Medicaid [place] [employer] [place] [employer] [id number] 2017-Present [phone] [address] [place] [address] Medicaid [id number] 1998 Unknown [id number] 2.16.840.1.350053.3.579.2. 593 1998 Unknown [id number] 2.16.840.1.379514.3.579.2. 593 1998 Unknown [id number] 2.16.840.1.484464.3.579.2. 593 1998 Unknown [id number] 2.16.840.1.106691.3.579.2. 593 1998 Unknown [id number] 2.16.840.1.541610.3.579.2. 727 1998 Unknown [id number] 2.16.840.1.822688.3.579.2. 727 1998 Unknown [id number] 2.16.840.1.718366.3.579.2. 727 1998 Unknown [id number] 2.16.840.1.425878.3.579.2. 727 1998 Unknown [id number] 2.16.840.1.247495.3.579.2. 727 1998 Unknown [id number] 2.16.840.1.922720.3.579.2. 72 1998 Unknown [id number] 2.16.840.1.840244.3.579.2. 727 1998 Unknown [id number] 2.16.840.1.456408.3.579.2. 72 1998 Unknown [id number] 2.16.840.1.562126.3.579.2. 727 1998 Unknown [id number] 2.16.840.1.599364.3.579.2. 727 1998 Unknown [id number] 2.16.840.1.888012.3.579.2. 727 1998 Unknown [id number] 2.16.840.1.960962.3.579.2. 727 1998 Unknown [id number] 2.16.840.1.907851.3.579.2. 727 1998 Unknown [id number] 2.16.840.1.525351.3.579.2. 727 1998 Unknown [id number] 2.16.840.1.520049.3.579.2. 1259 1998 Unknown [id number] 2.16.840.1.462866.3.579.2. 1259 1998 Unknown [id number] 2.16.840.1.316339.3.579.2. 1259 1998 Unknown [id number] 2.16.840.1.938225.3.579.2. 1259 1998 Unknown [id number] 2.16.840.1.971984.3.579.2. 1259 1998 Unknown [id number] 2.16.840.1.714220.3.579.2. 1259 1959 Self-pay 1961 Unknown [id number] Social History Date Type Detail Facility Tobacco Current every da y smoker [facility] Comment on above: current current Start: 08-27-2023 End: 09-26-2024 Sex Assigned At Female [facility] Start: 10-10-2021 Tobacco smoking stat us NHIS Occasional tobacco smoker [facility] History of tobacco use Cigarette Sm[facility] Start: 10-10-2021 End: 09-26-2024 Cigarettes smoked current (pack per day) - Reported 1 [facility] Start: 10-10-2021 Alcohol intake Ex-drinker (finding) [facility] Start: 10-10-2021 Tobacco Comment smokes 1 packs every 2 days [facility] Start: 2000 Sex Assigned At Not on file [facility] Start: 12-18-2022 End: 04-12-2024 Tobacco smoking status Light tobacco smoker (finding) [facility] Comment on above: current Tobacco smoking status No Smokin g Status Entered [facility] Start: 09-14-2022 End: 06-15-2024 Tobacco smoking status NHIS Smokes tobacco daily [facility] Start: 09-14-2022 End: 06-15-2024 Tobacco use and exposure Smokeless tobacco non-user [facility] Start: 12-13-2023 End: 12-18-2024 Alcoholic beverage intake Lifetime non-drinker (finding) [facility] Start: 09-14-2022 Alcohol Comment Caffeine intak e: occasional [facility] Functional Status Date Assessment Result Facility 09-26-2024 Patient Health [facility] ionnaire 2 item (PHQ-2) [Reported] [facility] 04-15-2024 Functional Status N/A [facility] 04-12-2024 Functional Status N/A [facility] 03-20-2024 Functional Status N/A [facility] 06-29-2023 Functional Status N/A [facility] 02-16-2023 Functional Status N/A [facility] 09-17-2021 Functional Status N/A [facility] Clinical Notes 07-16-2021 to 12-18-2024 WILMER Hernandez - 12/18/2024 3:00 PM EDTCherise Jaimes NP - 12/06/2024 10:40 AM Brooks Nolan MD - 09/26/2024 12:40 PM Brooks Nolan MD - 06/15/2024 10:40 AM EDT Note Date & Type Note Facility 12-18-2024 History of Present illness Narrative Reason for Appointment: Patient ID: Socorro Joseph is a 24 y.o. female who presents for Well Women Visit Patient presents today for Annual Exam. MEDICATIONS Current Outpatient Medications Medication Instructions famotidine (PEPCID) 40 mg, Oral, Nightly ondansetron (ZOFRAN) 4 mg, Oral, Every 8 hours PRN pantoprazole (PROTONIX) 40 mg, Oral, Daily, Do not crush, chew, or split. phenazopyridine (PYRIDIUM) 100 mg, Oral, 3 times daily PRN ALLERGIES No Known Allergies PROBLEMS Active Ambulatory Problems Diagnosis Date Noted Depression 09/14/2022 CUONG II (cervical intraepithelial neoplasia II) 09/24/2022 Colitis 09/24/2022 Constipation 09/24/2022 Nausea 09/24/2022 Mechanical complication of intrauterine contraceptive device 09/24/2022 Moderate episode of recurrent major depressive disorder (HCC) 09/24/2022 Pelvic and perineal pain 09/24/2022 Cigarette smoker 09/24/2022 Vaginal odor 09/24/2022 S/P endometrial ablation 03/05/2023 Pharyngitis 08/27/2023 Non-recurrent acute suppurative otitis media of left ear without spontaneous rupture of tympanic membrane 08/27/2023 Resolved Ambulatory Problems Diagnosis Date Noted Request for sterilization 09/24/2022 Past Medical History: Diagnosis Date History of abnormal cervical Pap smear History of being hospitalized History of cervical dysplasia Post depression Smoker HISTORY PAST MEDICAL HISTORY SOCIAL HISTORY Past Medical History: Diagnosis Date Constipation History of abnormal cervical Pap smear Colpo: CUONG II; Leep - CUONG II, CUONG III History of being hospitalized [facility] inflammation of stomach and ovarian cyst pain History of cervical dysplasia Pelvic and perineal pain Post depression Smoker Social History Tobacco Use Smoking status: Every Day Current packs/day: 0.50 Average packs/day: 0.5 packs/day for 6.0 years (3.0 ttl pk-yrs) Types: Cigarettes Smokeless tobacco: Never Vaping Use Vaping status: Every Day Substance Use Topics Alcohol use: Never Comment: Caffeine intake: occasional Drug use: Never FAMILY HISTORY Family History Problem Relation Name Age of Onset Diabetes Mother Hypertension Mother Mental illness Mother Breast cancer Mother Hypertension Father Mental illness Father No Known Problems Sister No Known Problems Daughter Cancer Son Cancer Maternal Grandmother Cancer Maternal Grandfather Cancer Paternal Grandmother Cancer Paternal Grandfather Mental illness Sibling SURGICAL HISTORY Past Surgical History: Procedure Laterality Date CERVICAL BIOPSY W/ LOOP ELECTRODE EXCISION 2020 Dr Mujica ENDOMETRIAL ABLATION 02/05/2023 ENDOMETRIAL ABLATION 02/05/2023 PAP SMEAR 08/12/2021 negative FL SALPINGECTOMY COMPLETE/PARTIAL UNI/BI SPX 06/24/2022 robotic, fulguration of ovarian endometrial implant VAGINAL DELIVERY x2 REVIEW OF SYSTEMS Review of Systems: Review of Systems Constitutional: Negative. HENT: Negative. Eyes: Negative. Respiratory: Negative. Cardiovascular: Negative. Gastrointestinal: Negative. Genitourinary: Negative. Musculoskeletal: Negative. Skin: Negative. Neurological: Negative. All other systems reviewed and are negative. Hematological: Negative. Endocrine: Negative. Allergic/Immunologic: Negative. OBJECTIVE Objective: Physical Exam Constitutional: Appearance: Normal appearance. Genitourinary: Right Adnexa: not tender and no mass present. Left Adnexa: not tender and no mass present. No cervical discharge. Breasts: Breasts are soft. Right: Normal. Left: Normal. HENT: Head: Normocephalic. Nose: Nose normal. Mouth/Throat: Mouth: Mucous membranes are moist. Cardiovascular: Rate and Rhythm: Normal rate. Pulmonary: Effort: Pulmonary effort is normal. Abdominal: General: Bowel sounds are normal. Palpations: Abdomen is soft. Musculoskeletal: General: Normal range of motion. Cervical back: Normal range of motion. Neurological: General: No focal deficit present. Mental Status: She is alert. Skin: General: Skin is warm and dry. Psychiatric: Mood and Affect: Mood normal. Vitals and nursing note reviewed. Exam conducted with a administrative judge present. Vitals: Estimated body mass index is 27.64 kg/m as calculated from the following: Height as of 09/26/24: 5' 8 . Weight as of this encounter: 181 lb 12.8 oz. BP: 120/70 Patient's last menstrual period was 12/09/2024. ASSESSMENT & PLAN ICD-10-CM 1. Well woman exam with routine gynecological exam Z01.419 Pap Smear 2. UTI symptoms R39.9 POCT urinalysis dipstick manually resulted phenazopyridine (Pyridium) 100 MG tablet 3. Exposure to STD Z20.2 SURESWAB(R) ADVANCED VAGINITIS PLUS, TMA 4. Vaginal discharge N89.8 CHLAMYDIA TRACHOMATIS (GENITO/STI) Neisseria gonorrhea DNA probe, direct Annual Exam: Patient presents today for an annual exam. Patient states she is doing well except she is having heavy bleeding and frequent periods per month despite ablation 2 years agoPap was obtained without difficulty. Orders Placed This Encounter Procedures CHLAMYDIA TRACHOMATIS (GENITO/STI) Neisseria gonorrhea DNA probe, direct POCT urinalysis dipstick manually resulted Patient wishes to move forward with surgical intervention for a partial hysterectomy due failed ablation and continued bleeding with pain Follow Up: Patient is to return in one year for annual unless needed otherwise. Documented by WILMER Hernandez on behalf of: WILMER Hernandez documented in this encounter [facility] 12-06-2024 History of Present illness Narrative Images from the original note were not included. Socorro Joseph is a 24 y.o. female presents with chief complaint of Diarrhea and Nausea HPI: History of Present Illness The patient is a 24-year-old female who presents via virtual visit via phone for an acute complaint. Symptoms began 5 days ago with a stomach bug, including frequent bathroom visits. This morning, she woke up feeling nauseous, and the nausea has progressively worsened. She has not vomited but has had 3 to 4 episodes of diarrhea per day since the onset of her symptoms. Stools are loose and brown in color, with no presence of blood. She has not experienced any fever or urinary symptoms. She has been able to consume saltine crackers and clear liquids. The patient's children's father has similar symptoms and is seeking medical attention today. Her girlfriend complained of a stomachache, but no other symptoms have been reported. She does not believe she consumed any contaminated food and has not traveled recently. She reports no exposure to C. difficile. She took Zofran, which she had left over from a previous illness, to alleviate the nausea. She has found relief from her symptoms with Zofran in the past and is requesting a refill. She has been taking antidiarrheal medication, which seems to have alleviated her abdominal cramping. She continues to take Pepcid and Protonix for acid reflux. Over the past few months, she has experienced intermittent diarrhea, which she did not find concerning as it would resolve on its own. She assumed these episodes were due to a stomach bug. SUBJECTIVE: ALLERGIES: No Known Allergies MEDICATIONS: Current Outpatient Medications Medication Instructions famotidine (PEPCID) 40 mg, Oral, Nightly ondansetron (ZOFRAN) 4 mg, Oral, Every 8 hours PRN pantoprazole (PROTONIX) 40 mg, Oral, Daily, Do not crush, chew, or split. REVIEW OF SYMPTOMS: Constitutional: Denies fever or chills, anorexia. Respiratory: Denies cough, wheezing or difficulty breathing. Gastrointestinal: Denies vomiting. Notes nausea and diarrhea. Genitourinary:Denies dysuria, hematuria, frequency or urgency. Obejctive: Visit Vitals OB Status Ablation Smoking Status Every Day BP Readings from Last 3 Encounters: 09/26/24 118/70 06/15/24 118/72 03/22/24 124/70 Wt Readings from Last 3 Encounters: 09/26/24 179 lb 3.2 oz 06/15/24 177 lb 3.2 oz 03/22/24 179 lb 9.6 oz Adult female spoken to over the phone, no acute distress heard. Conversation appropriate. Results No results found for: HGBA1C No results found for: GLUF , MICROALBUR , LDLCALC , CREATININE ASSESSMENT AND PLAN: Assessment & Plan 1. Acute diarrhea and nausea. - Symptoms suggest a viral etiology, given the onset on 12/02/2024 and the presence of nausea and diarrhea. The patient reports no vomiting, blood in stools, recent travel, antibiotic use or exposure to C. difficile. - Advised to maintain a bland diet including bananas, rice, applesauce, and toast, and to ensure adequate hydration. A daily probiotic was recommended to restore healthy gut kash. - A prescription for Zofran 4 mg every 8 hours as needed was provided and sent to pharmacy. If symptoms persist beyond this week, stool studies will be considered to rule out other underlying conditions. If unable to tolerate clear liquids or if develops a fever that does not respond to treatment, immediate reevaluation is advised. Assessment/Plan Diagnoses and all orders for this visit: Acute diarrhea Nausea - ondansetron (Zofran) 4 MG tablet; Take 1 tablet (4 mg) by mouth every 8 (eight) hours if needed for nausea or vomiting Abdominal cramping Resolving. This visit was conducting via phone communication. All issues were discussed and addressed but no physical exam was conducted. If it is determined that the patient should be evaluated in the clinic, the patient will be directed to the appropriate clinic or venue. The patient or their guardian verbally consented to this visit. Phone time was 10 minutes discussing health issues with counseling and coordination of care. Please Note: Portions of this chart may have been created using voice recognition software. Occasional wrong-word or sound-like substitutions may have occurred due to inherent limitations of the voice recognition software. Please read the chart carefully and recognize, using context, where the substitutions have occurred. documented in this encounter [facility] 09-26-2024 History of Present illness Narrative Images from the original note were not included. Subjective Patient ID: Socorro Joseph is a 23 y.o. female who presents for Dizziness, Migraine (/), Tingling (L side of face.), and Chest Pain. HPI Pt here for acute visit. States she has had headaches that are sudden and sharp, lasting for about 5-10 seconds on the L side of her head. Will have a dull ache after sharpness has resolved. Does have associated facial tinging w/o droop or speech abnormality. Denies aura, but does have nausea. Feels off balance and dizzy at times. Has tried tylenol w/o relief. Review of Systems General: Denies fever, chills CV: Denies CP, palpitations or swelling in legs Resp: denies cough, SOB or wheezing GI: Denies abd pain/n/v/c/d Skin: Denies rash Objective Blood pressure 118/70, pulse 71, temperature 98.2 F, height 5' 8 , weight 179 lb 3.2 oz, SpO2 98%. Body mass index is 27.25 kg/m . Physical Exam General: alert & oriented, NAD Head: NC/AT Oral Cavity: MMM Skin: warm, dry Heart: RRR, No m/r/g, S1S2 nml Lungs: CTA b/l Abdomen: soft, ND/NT, BS wnl Musculoskeletal: normal gait Extremities: no clubbing, cyanosis or edema Neurological: nonfocal Psych: mood/affect full range Assessment/Plan Socorro was seen today for dizziness, migraine, tingling and chest pain. Diagnoses and all orders for this visit: Intractable episodic headache, unspecified headache type (Primary) Nausea - ondansetron (Zofran) 4 MG tablet; Take 2 tablets (8 mg) by mouth every 8 (eight) hours if needed for nausea or vomiting Facial tingling Overweight BMI 27.0-27.9,adult Discussed possible causes with pt Samples of ubrelvy and nurtec given to pt - Discussed sx tx, side effects of meds and concerning sx to monitor for. If no improvement, consider migraine cocktail. Also discussed possible need for further evaluation with imaging if sx persist. documented in this encounter [facility] 06-15-2024 History of Present illness Narrative Images from the original note were not included. Patient: Socorro Joseph : 2000 PCP: Raquel Nolan MD Socorro Joseph is a 23 y.o. female presenting today for follow-up after being seen in ED. The main problem requiring evaluation was n/v/abd pain. The discharge summary and/or Transitional Care Management documentation was reviewed. Medication reconciliation was performed as indicated via the [facility] as Reviewed timestamp. Flowsheet Row Office Visit from 06/15/2024 in [facility] with Raquel Nolan MD Hospital Information ED, Hospital or Correction Facility Discharge? ED Patient has been contacted within 2 days of being seen in the ED Yes Diagnosis Virus Discharge Date 06/11/24 Discharged To: Home Setting Discharge [facility] Engagement Admission Date 06/11/24 Medications Discharge medications reviewed and reconciled from hospital? Yes Is the patient having any side effects they believe may be caused by any medication additions or changes? No Does the patient have all medications ordered at discharge? Yes Is the patient taking all medications as directed (includes completed medication regime)? Yes Appointments Self Management Patient Teaching Wrap Up Review of Systems General: Denies fever, chills, fatigue, LÓPEZ or weight loss/gain CV: Denies CP, palpitations or swelling in legs Resp: denies cough, SOB or wheezing Skin: Denies rash Neuro: Denies LH or dizziness Objective Vitals: 06/15/24 1046 BP: 118/72 Pulse: 66 Temp: 98.2 F SpO2: 99% Physical Exam General: alert & oriented, NAD Head: NC/AT Oral Cavity: MMM Skin: warm, dry Heart: RRR, No m/r/g, S1S2 nml Lungs: CTA b/l Abdomen: soft, ND/NT, BS wnl Musculoskeletal: normal gait Extremities: no clubbing, cyanosis or edema Neurological: nonfocal Psych: mood/affect full range Assessment/Plan Socorro was seen today for immunizations, er follow-up and results. Diagnoses and all orders for this visit: Leukocytosis, unspecified type (Primary) - CBC and differential; Future - CBC and differential Gastroesophageal reflux disease, unspecified whether esophagitis present - pantoprazole (ProtoNix) 40 MG EC tablet; Take 1 tablet (40 mg) by mouth Daily Do not crush, chew, or split. - famotidine (Pepcid) 40 MG tablet; Take 1 tablet (40 mg) by mouth at bedtime - Ambulatory referral to Gastroenterology; Future BMI 26.0-26.9,adult Overweight Reviewed ED course with pt including labs Discussed sx tx, side effects of meds and concerning sx to monitor for. Due to persistent sx, will refer to GI for further evaluation and tx. Follow up if symptoms worsen or fail to improve. documented in this encounter [facility] 06-11-2024 Note ED Patient Education Note Gastroenterology Viral Gastroenteritis, Adult Viral gastroenteritis is also known as the stomach flu. This condition may affect your stomach, small intestine, and large intestine. It can cause sudden watery diarrhea, fever, and vomiting. This condition is caused by many different viruses. These viruses can be passed from person to person very easily (are contagious). Diarrhea and vomiting can make you feel weak and cause you to become dehydrated. You may not be able to keep fluids down. Dehydration can make you tired and thirsty, cause you to have a dry mouth, and decrease how often you urinate. It is important to replace the fluids that you lose from diarrhea and vomiting. What are the causes? Gastroenteritis is caused by many viruses, including rotavirus and norovirus. Norovirus is the most common cause in adults. You can get sick after being exposed to the viruses from other people. You can also get sick by: ??? Eating food, drinking water, or touching a surface contaminated with one of these viruses. ??? Sharing utensils or other personal items with an infected person. What increases the risk? You are more likely to develop this condition if you: ??? Have a weak body defense system (immune system). ??? Live with one or more children who are younger than 2 years. ??? Live in a senior care. ??? Travel on cruise ships. What are the signs or symptoms? Symptoms of this condition start suddenly 1?3 days after exposure to a virus. Symptoms may last for a few days or for as long as a week. Common symptoms include watery diarrhea and vomiting. Other symptoms include: ??? Fever. ??? Headache. ??? Fatigue. ??? Pain in the abdomen. ??? Chills. ??? Weakness. ??? Nausea. ??? Muscle aches. ??? Loss of appetite. How is this diagnosed? This condition is diagnosed with a medical history and physical exam. You may also have a stool test to check for viruses or other infections. How is this treated? This condition typically goes away on its own. The focus of treatment is to prevent dehydration and restore lost fluids (rehydration). This condition may be treated with: ??? An oral rehydration solution (ORS) to replace important salts and minerals (electrolytes) in your body. Take this if told by your health care provider. This is a drink that is sold at pharmacies and retail stores. ??? Medicines to help with your symptoms. ??? Probiotic supplements to reduce symptoms of diarrhea. ??? Fluids given through an IV, if dehydration is severe. Older adults and people with other diseases or a weak immune system are at higher risk for dehydration. Follow these instructions at home: Eating and drinking ??? Take an ORS as told by your health care provider. ??? Drink clear fluids in small amounts as you are able. Clear fluids include: ? Water. ? Ice chips. ? Diluted fruit juice. ? Low-calorie sports drinks. ??? Drink enough fluid to keep your urine pale yellow. ??? Eat small amounts of healthy foods every 3?4 hours as you are able. This may include whole grains, fruits, vegetables, lean meats, and yogurt. ??? Avoid fluids that contain a lot of sugar or caffeine, such as energy drinks, sports drinks, and soda. ??? Avoid spicy or fatty foods. ??? Avoid alcohol. General instructions ??? Wash your hands often, especially after having diarrhea or vomiting. If soap and water are not available, use hand solar photovoltaic electrician. ??? Make sure that all people in your household wash their hands well and often. ??? Take [id number]-dao-uqspvkc and prescription medicines only as told by your health care provider. ??? Rest at home while you recover. ??? Watch your condition for any changes. ??? Take a warm bath to relieve any burning or pain from frequent diarrhea episodes. ??? Keep all follow-up visits. This is important. Contact a health care provider if you: ??? Cannot keep fluids down. ??? Have symptoms that get worse. ??? Have new symptoms. ??? Feel light-headed or dizzy. ??? Have muscle cramps. Get help right away if you: ??? Have chest pain. ??? Have trouble breathing or you are breathing very quickly. ??? Have a fast heartbeat. ??? Feel extremely weak or you faint. ??? Have a severe headache, a stiff neck, or both. ??? Have a rash. ??? Have severe pain, cramping, or bloating in your abdomen. ??? Have skin that feels cold and clammy. ??? Feel confused. ??? Have pain when you urinate. ??? Have signs of dehydration, such as: ? Dark urine, very little urine, or no urine. ? Cracked lips. ? Dry mouth. ? Sunken eyes. ? Sleepiness. ? Weakness. ??? Have signs of bleeding, such as: ? Seeing blood in your vomit. ? Having vomit that looks like coffee grounds. ? Having bloody or black stools or stools that look like tar. These symptoms may be an emergency. Get help right (more content not included)... [facility] 04-16-2024 Evaluation + Plan note Extrac brittani from: Title:ED Note Author:Narinder Kumar DO Date: Abdominal pain, acute, epiga stric (R10.13: Epigastric pain) N&V (nausea and vomiting) (R11.2: Nausea with vomiting, unspecified) Orders: dicyclomine, 10 mg = 1 cap(s), Oral, QID, PRN Nausea/Vomiting, For abdominal cramping, # 16 cap(s), Refills(s) 0, Pharmacy: [facility], 177, cm, 04/15/24 21:15:00 EST, Height/Length Dosing, 83.8, kg, 04/15/24 21:15:00 EST, Weight Dosing dicyclomine, 20 mg = 1 tab(s), Tab, Oral, Once, Stop date 04/16/24 2:15:00 EST, STAT, Start date 04/16/24 2:15:00 EST, 04/16/24 2:15:00 EST famotidine, 20 mg = 2 mL, Soln-IV, IV Push, Once, Stop date 04/15/24 22:42:00 EST, STAT, Start date 04/15/24 22:42:00 EST, 04/15/24 22:42:00 EST ketorolac, 15 mg = 1 mL, Injection, IV Push, Once, Stop date 04/15/24 22:41:00 EST, STAT, Start date 04/15/24 22:41:00 EST, 04/15/24 22:41:00 EST ondansetron, 4 mg = 1 tab(s), Oral, q8hr, PRN Nausea/Vomiting, # 12 tab(s), Refills(s) 0, Pharmacy: [facility], 177, cm, 04/15/24 21:15:00 EST, Height/Length Dosing, 83.8, kg, 04/15/24 21:15:00 EST, Weight Dosing ondansetron, 4 mg = 2 mL, Injection, IV Push, Once, Stop date 04/15/24 22:41:00 EST, STAT, Start date 04/15/24 22:41:00 EST, 04/15/24 22:41:00 EST ondansetron, 4 mg = 1 tab(s), Tab-Dis, Oral, Once, Stop date 04/16/24 2:15:00 EST, STAT, Start date 04/16/24 2:15:00 EST, 04/16/24 2:15:00 EST promethazine 25 mg + Sodium Chloride 0.9% intravenous solution 50 mL, Injection, IV Piggyback, Once, Stop date 04/16/24 0:06:00 EST, STAT, Start date 04/16/24 0:06:00 EST, 153 mL/hr, Infuse over 20 minute(s) Sodium Chloride 0.9% intravenous solution 1,000 mL, 1,000 mL, IV, 999 mL/hr, STAT, Start date 04/15/24 23:13:00 EST, 1 hour(s), Total volume (mL): 1,000, 83.8 kg, 2.03, m2 CBC w/ Auto Diff Comprehensive Metabolic Panel CT Abdomen/Pelvis w/ Contrast eGFR Lipase Level [facility] 01-12-2025 Hospital Discharge instructions Patient Education 04/16/2024 02:18:21 Abdominal Pain, Adult Abdominal Pain, Adult Pain in the abdomen (abdominal pain) can be caused by many things. In most cases, it gets better with no treatment or by being treated at home. But in some cases, it can be serious. Your health care provider will ask questions about your medical history and do a physical exam to try to figure out what is causing your pain. Follow these instructions at home: Medicines Take kiex-mew-wykexlx and prescription medicines only as told by your provider. Do not take medicines that help you poop (laxatives) unless told by your provider. General instructions Watch your condition for any changes. Drink enough fluid to keep your pee (urine) pale yellow. Contact a health care provider if: Your pain changes, gets worse, or lasts longer than expected. You have severe cramping or bloating in your abdomen, or you vomit. Your pain gets worse with meals, after eating, or with certain foods. You are constipated or have diarrhea for more than 2 3 days. You are not hungry, or you lose weight without trying. You have signs of dehydration. These may include: ?Dark pee, very little pee, or no pee. ?Cracked lips or dry mouth. ?Sleepiness or weakness. You have pain when you pee (urinate) or poop. Your abdominal pain wakes you up at night. You have blood in your pee. You have a fever. Get help right away if: You cannot stop vomiting. Your pain is only in one part of the abdomen. Pain on the right side could be caused by appendicitis. You have bloody or black poop (stool), or poop that looks like tar. You have trouble breathing. You have chest pain. These symptoms may be an emergency. Get help right away. Call 911. Do not wait to see if the symptoms will go away. Do not drive yourself to the hospital. This information is not intended to replace advice given to you by your health care provider. Make sure you discuss any questions you have with your health care provider. Document Revised: 01/06/2023 Document Reviewed: 01/06/2023 [employer] Patient Education 2023 GetThis. Follow Up Care 04/15/2024 20:34:28 With:Raquel Nolan Address: [address] [place] [address]- Business (1) When:04/19/2024 Comments:Call the office of your primary care doctor to arrange for follow-up within the above-stated timeframe. Follow-up with your primary care doctor about this ED visit. You should review your labs, imaging, and diagnoses from this ED visit with your primary care physician. There are occasionally non-emergent findings that require additional follow-up after your ED visit. If you were prescribed medications you should discuss possible side-effects and drug interactions with your pharmacist. Call 911 or go to the nearest Emergency Department if you develop any new or worsening symptoms. [facility] 01-12-2025 NoteED Patient Education Note Gastroenterology Abdominal Pain, Adult Pain in the abdomen (abdominal pain) can be caused by many things. In most cases, it gets better with no treatment or by being treated at home. But in some cases, it can be serious. Your health care provider will ask questions about your medical history and do a physical exam to try to figure out what is causing your pain. Follow these instructions at home: Medicines ??? Take ijiz-ygp-rzxisrh and prescription medicines only as told by your provider. ??? Do not take medicines that help you poop (laxatives) unless told by your provider. General instructions ??? Watch your condition for any changes. ??? Drink enough fluid to keep your pee (urine) pale yellow. Contact a health care provider if: ??? Your pain changes, gets worse, or lasts longer than expected. ??? You have severe cramping or bloating in your abdomen, or you vomit. ??? Your pain gets worse with meals, after eating, or with certain foods. ??? You are constipated or have diarrhea for more than 2?3 days. ??? You are not hungry, or you lose weight without trying. ??? You have signs of dehydration. These may include: ? Dark pee, very little pee, or no pee. ? Cracked lips or dry mouth. ? Sleepiness or weakness. ??? You have pain when you pee (urinate) or poop. ??? Your abdominal pain wakes you up at night. ??? You have blood in your pee. ??? You have a fever. Get help right away if: ??? You cannot stop vomiting. ??? Your pain is only in one part of the abdomen. Pain on the right side could be caused by appendicitis. ??? You have bloody or black poop (stool), or poop that looks like tar. ??? You have trouble breathing. ??? You have chest pain. These symptoms may be an emergency. Get help right away. Call 911. ??? Do not wait to see if the symptoms will go away. ??? Do not drive yourself to the hospital. This information is not intended to replace advice given to you by your health care provider. Make sure you discuss any questions you have with your health care provider. Document Revised: 01/06/2023 Document Reviewed: 01/06/2023 [employer] Patient Education ? 2023 GetThis.[facility] 04-12-2024 Hospital Discharge instructions Patient Education 04/12/2024 18:34:01 Influenza, Adult, Aeeh-zz-Fbbs Influenza, Adult Influenza is also called the flu. It is an infection in the lungs, nose, and throat (respiratory tract). It spreads easily from person to person (is contagious). The flu causes symptoms that are like a cold, along with high fever and body aches. What are the causes? This condition is caused by the influenza virus. You can get the virus by: Breathing in droplets that are in the air after a person infected with the flu coughed or sneezed. Touching something that has the virus on it and then touching your mouth, nose, or eyes. What increases the risk? Certain things may make you more likely to get the flu. These include: Not washing your hands often. Having close contact with many people during cold and flu season. Touching your mouth, eyes, or nose without first washing your hands. Not getting a flu shot every year. You may have a higher risk for the flu, and serious problems, such as a lung infection (pneumonia),if you: Are older than 65. Are . Have a weakened disease-fighting system (immune system) because of a disease or because you are taking certain medicines. Have a long-term (chronic) condition, such as: ?Heart, kidney, or lung disease. ?Diabetes. ?Asthma. Have a liver disorder. Are very overweight (morbidly obese). Have anemia. What are the signs or symptoms? Symptoms usually begin suddenly and last 4 14 days. They may include: Fever and chills. Headaches, body aches, or muscle aches. Sore throat. Cough. Runny or stuffy (congested) nose. Feeling discomfort in your chest. Not wanting to eat as much as normal. Feeling weak or tired. Feeling dizzy. Feeling sick to your stomach or throwing up. How is this treated? If the flu is found early, you can be treated with antiviral medicine. This can help to reduce how bad the illness is and how long it lasts. This may be given by mouth or through an IV tube. Taking care of yourself at home can help your symptoms get better. Your doctor may want you to: Take zpit-ymi-kfizifx medicines. Drink plenty of fluids. The flu often goes away on its own. If you have very bad symptoms or other problems, you may be treated in a hospital. Follow these instructions at home: Activity Rest as needed. Get plenty of sleep. Stay home from work or school as told by your doctor. ?Do not leave home until you do not have a fever for 24 hours without taking medicine. ?Leave home only to go to your doctor. Eating and drinking Take an ORS (oral rehydration solution). This is a drink that is sold at pharmacies and stores. Drink enough fluid to keep your pee pale yellow. Drink clear fluids in small amounts as you are able. Clear fluids include: ?Water. ?Ice chips. ?Fruit juice mixed with water. ?Low-calorie sports drinks. Eat bland foods that are easy to digest. Eat small amounts as you are able. These foods include: ?Bananas. ?Applesauce. ?Rice. ?Lean meats. ?[place]. ?Crackers. Do not eat or drink: ?Fluids that have a lot of sugar or caffeine. ?Alcohol. ?Spicy or fatty foods. General instructions Take mopy-oza-nhlmkbd and prescription medicines only as told by your doctor. Use a cool mist humidifier to add moisture to the air in your home. This can make it easier for youto breathe. ?When using a cool mist humidifier, clean it daily. Empty water and replace with clean water. Cover your mouth and nose when you cough or sneeze. Wash your hands with soap and water often and for at least 20 seconds. This is also important afteryou cough or sneeze. If you cannot use soap and water, use alcohol-based hand solar photovoltaic electrician. Keep all follow-up visits. How is this prevented? Get a flu shot every year. You may get the flu shot in late summer, fall, or winter. Ask your doctor when you should get your flu shot. Avoid contact with people who are sick during fall and winter. This is cold and flu season. Contact a doctor if: You get new symptoms. You have: ?Chest pain. ?Watery poop (diarrhea). ?A fever. Your cough gets worse. You start to have more mucus. You feel sick to your stomach. You throw up. Get help right away if you: Have shortness of breath. Have trouble breathing. Have skin or nails that turn a bluish color. Have very bad pain or stiffness in your neck. Get a sudden headache. Get sudden pain in your face or ear. Cannot eat or drink without throwing up. These symptoms may represent a serious problem that is an emergency. Get medical help right away. Call your local emergency services (911 in the [place] Do not wait to see if the symptoms will go away. Do not drive yourself to the hospital. Summary Influenza is also called the flu. It is an infection in the lungs, nose, and throat. It spreads easily from person to person. Take iwcm-wvr-ikhktdx and prescription medicines only as told by your doctor. Getting a flu shot every year is the best way to not get the flu. This information is not intended to replace advice given to you by your health care provider. Make sure you discuss any questions you have with your health care provider. Document Revised: 11/06/2020 Document Reviewed: 11/08/2020 [employer] Patient Education 2023 GetThis. Follow Up Care 04/12/2024 13:30:03 With:Raquel Nolan MD Address: [address] [place] [address]- When: Unknown [facility] 01-08-2025 NotePatient Education Infectious Disease Influenza, Adult Influenza is also called the flu. It is an infection in the lungs, nose, and throat (respiratory tract). It spreads easily from person to person (is contagious). The flu causes symptoms that are like a cold, along with high fever and body aches. What are the causes? This condition is caused by the influenza virus. You can get the virus by: ??? Breathing in droplets that are in the air after a person infected with the flu coughed or sneezed. ??? Touching something that has the virus on it and then touching your mouth, nose, or eyes. What increases the risk? Certain things may make you more likely to get the flu. These include: ??? Not washing your hands often. ??? Having close contact with many people during cold and flu season. ??? Touching your mouth, eyes, or nose without first washing your hands. ??? Not getting a flu shot every year. You may have a higher risk for the flu, and serious problems, such as a lung infection (pneumonia),if you: ??? Are older than 65. ??? Are . ??? Have a weakened disease-fighting system (immune system) because of a disease or because you aretaking certain medicines. ??? Have a long-term (chronic) condition, such as: ? Heart, kidney, or lung disease. ? Diabetes. ? Asthma. ??? Have a liver disorder. ??? Are very overweight (morbidly obese). ??? Have anemia. What are the signs or symptoms? Symptoms usually begin suddenly and last 4?14 days. They may include: ??? Fever and chills. ??? Headaches, body aches, or muscle aches. ??? Sore throat. ??? Cough. ??? Runny or stuffy (congested) nose. ??? Feeling discomfort in your chest. ??? Not wanting to eat as much as normal. ??? Feeling weak or tired. ??? Feeling dizzy. ??? Feeling sick to your stomach or throwing up. How is this treated? If the flu is found early, you can be treated with antiviral medicine. This can help to reduce how bad the illness is and how long it lasts. This may be given by mouth or through an IV tube. Taking care of yourself at home can help your symptoms get better. Your doctor may want you to: ??? Take panj-uck-daynutx medicines. ??? Drink plenty of fluids. The flu often goes away on its own. If you have very bad symptoms or other problems, you may be treated in a hospital. Follow these instructions at home: Activity ??? Rest as needed. Get plenty of sleep. ??? Stay home from work or school as told by your doctor. ? Do not leave home until you do not have a fever for 24 hours without taking medicine. ? Leave home only to go to your doctor. Eating and drinking ??? Take an ORS (oral rehydration solution). This is a drink that is sold at pharmacies and stores. ??? Drink enough fluid to keep your pee pale yellow. ??? Drink clear fluids in small amounts as you are able. Clear fluids include: ? Water. ? Ice chips. ? Fruit juice mixed with water. ? Low-calorie sports drinks. ??? Eat bland foods that are easy to digest. Eat small amounts as you are able. These foods include: ? Bananas. ? Applesauce. ? Rice. ? Lean meats. ? [place]. ? Crackers. ??? Do not eat or drink: ? Fluids that have a lot of sugar or caffeine. ? Alcohol. ? Spicy or fatty foods. General instructions ??? Take ighr-gsk-oksasen and prescription medicines only as told by your doctor. ??? Use a cool mist humidifier to add moisture to the air in your home. This can make it easier foryou to breathe. ? When using a cool mist humidifier, clean it daily. Empty water and replace with clean water. ??? Cover your mouth and nose when you cough or sneeze. ??? Wash your hands with soap and water often and for at least 20 seconds. This is also important after you cough or sneeze. If you cannot use soap and water, use alcohol-based hand solar photovoltaic electrician. ??? Keep all follow-up visits. How is this prevented? Get a flu shot every year. You may get the flu shot in late summer, fall, or winter. Ask your doctor when you should get your flu shot. ??? Avoid contact with people who are sick during fall and winter. This is cold and flu season. Contact a doctor if: ??? You get new symptoms. ??? You have: ? Chest pain. ? Watery poop (diarrhea). ? A fever. ??? Your cough gets worse. ??? You start to have more mucus. ??? You feel sick to your stomach. ??? You throw up. Get help right away if you: ??? Have shortness of breath. ??? Have trouble breathing. ??? Have skin or nails that turn a bluish color. ??? Have very bad pain or stiffness in your neck. ??? Get a sudden headache. ??? Get sudden pain in your face or ear. ??? Cannot eat or drink without throwing up. These symptoms may represent a serious problem that is an emergency. Get medical help right away. Call your local emergency services (911 in the [place] ??? Do (more content not included)...[facility]12-18-2024 History of Present illness Narrative* Raquel Nolan MD - 03/22/2024 12:40 PM EST Images from the original note were not included. Patient: Socorro Joseph : 2000 PCP: Raquel Nolan MD Socorro Joseph is a 23 y.o. female presenting today for follow-up after being seen in ED. The main problem requiring evaluation was cough, abd pain. The discharge summary and/or Transitional Care Management documentation was reviewed. Medication reconciliation was performed as indicated via the [employer] as Reviewed timestamp. Flowsheet Row Documentation from 03/21/2024 in [facility] with Amanda Rogers MA Hospital Information ED, Hospital or Correction Facility Discharge? ED Patient has been contacted within 1 week of being seen in the ED Yes Discharge Date 03/20/24 Discharged To: Home Setting Discharge Hospital [facility] Engagement Admission Date 03/20/24 Medications Discharge medications reviewed and reconciled from hospital? Yes Does the patient have all medications ordered at discharge? Yes Is the patient taking all medications as directed (includes completed medication regime)? Yes Appointments Does the patient have a primary care provider? Yes Self Management Patient Teaching Does the patient have access to their discharge instructions? Yes Wrap Up Review of Systems General: Denies fever, chills, fatigue, LÓPEZ or weight loss/gain CV: Denies CP, palpitations or swelling in legs Resp: denies SOB or wheezing GI: Denies abd pain/v/c/d Skin: Denies rash Neuro: Denies LH or dizziness Objective Vitals: 03/22/24 1238 BP: 124/70 Pulse: 69 Temp: 98 F SpO2: 99% Physical Exam General: alert & oriented, NAD Head: NC/AT Oral Cavity: MMM Skin: warm, dry Heart: RRR, No m/r/g, S1S2 nml Lungs: CTA b/l Abdomen: soft, ND/NT, BS wnl Musculoskeletal: normal gait Extremities: no clubbing, cyanosis or edema Neurological: nonfocal Psych: mood/affect full range Assessment/Plan Socorro was seen today for abdominal pain, nausea, cough, earache and sinusitis. Diagnoses and all orders for this visit: Acute cough (Primary) - azithromycin (Zithromax) 250 MG tablet; Take 2 tabs PO x 1 day then 1 tab PO daily x 4 days - predniSONE (Deltasone) 20 MG tablet; Take 2 tablets (40 mg) by mouth Daily for 5 days Discussed sx tx, side effects of meds and concerning sx to monitor for. Nausea - ondansetron (Zofran) 4 MG tablet; Take 2 tablets (8 mg) by mouth every 8 (eight) hours if needed for nausea or vomiting Nasal congestion Ear fullness, bilateral BMI 27.0-27.9,adult Overweight - continue to monitor weight Follow up if symptoms worsen or fail to improve. documented in this encounterSaint [facility] [id number] Hospital Discharge instructions Patient Education 03/20/2024 09:23:47 Cough, Adult Cough, Adult Coughing is a reflex that clears your throat and airways (respiratory system). It helps heal and protect your lungs. It is normal to cough from time to time. A cough that happens with other symptoms or that lasts a long time may be a sign of a condition that needs treatment. A short-term (acute) cough may only last 2 3 weeks. A long-term (chronic) cough may last 8 or more weeks. Coughing is often caused by: Diseases, such as: ?An infection of the respiratory system. ?Asthma or other heart or lung diseases. ?Gastroesophageal reflux. This is when acid comes back up from the stomach. Breathing in things that irritate your lungs. Allergies. Postnasal drip. This is when mucus runs down the back of your throat. Smoking. Some medicines. Follow these instructions at home: Medicines Take heeq-jgf-zcgdzyz and prescription medicines only as told by your health care provider. Talk with your provider before you take cough medicine (cough suppressants). Eating and drinking Do not drink alcohol. Avoid caffeine. Drink enough fluid to keep your pee (urine) pale yellow. Lifestyle Avoid cigarette smoke. Do not use any products that contain nicotine or tobacco. These products include cigarettes, chewing tobacco, and vaping devices, such as e-cigarettes. If you need help quitting, ask your provider. Avoid things that make you cough. These may include perfumes, candles, cleaning products, or campfire smoke. General instructions Watch for any changes to your cough. Tell your provider about them. Always cover your mouth when you cough. If the air is dry in your bedroom or home, use a cool mist vaporizer or humidifier. If your cough is worse at night, try to sleep in a semi-upright position. Rest as needed. Contact a health care provider if: You have new symptoms, or your symptoms get worse. You cough up pus. You have a fever that does not go away or a cough that does not get better after 2 3 weeks. You cannot control your cough with medicine, and you are losing sleep. You have pain that gets worse or is not helped with medicine. You lose weight for no clear reason. You have night sweats. Get help right away if: You cough up blood. You have trouble breathing. Your heart is beating very fast. These symptoms may be an emergency. Get help right away. Call 911. Do not wait to see if the symptoms will go away. Do not drive yourself to the hospital. This information is not intended to replace advice given to you by your health care provider. Make sure you discuss any questions you have with your health care provider. Document Revised: 11/20/2022 Document Reviewed: 11/20/2022 [employer] Patient Education 2023 GetThis. 03/20/2024 09:23:47 Abdominal Pain, Adult Abdominal Pain, Adult Pain in the abdomen (abdominal pain) can be caused by many things. In most cases, it gets better with no treatment or by being treated at home. But in some cases, it can be serious. Your health care provider will ask questions about your medical history and do a physical exam to try to figure out what is causing your pain. Follow these instructions at home: Medicines Take kvuq-azm-iwqaexk and prescription medicines only as told by your provider. Do not take medicines that help you poop (laxatives) unless told by your provider. General instructions Watch your condition for any changes. Drink enough fluid to keep your pee (urine) pale yellow. Contact a health care provider if: Your pain changes, gets worse, or lasts longer than expected. You have severe cramping or bloating in your abdomen, or you vomit. Your pain gets worse with meals, after eating, or with certain foods. You are constipated or have diarrhea for more than 2 3 days. You are not hungry, or you lose weight without trying. You have signs of dehydration. These may include: ?Dark pee, very little pee, or no pee. ?Cracked lips or dry mouth. ?Sleepiness or weakness. You have pain when you pee (urinate) or poop. Your abdominal pain wakes you up at night. You have blood in your pee. You have a fever. Get help right away if: You cannot stop vomiting. Your pain is only in one part of the abdomen. Pain on the right side could be caused by appendicitis. You have bloody or black poop (stool), or poop that looks like tar. You have trouble breathing. You have chest pain. These symptoms may be an emergency. Get help right away. Call 911. Do not wait to see if the symptoms will go away. Do not drive yourself to the hospital. This information is not intended to replace advice given to you by your health care provider. Make sure you discuss any questions you have with your health care provider. Document Revised: 01/06/2023 Document Reviewed: 01/06/2023 [employer] Patient Education 2023 [employer]. Follow Up Care 03/20/2024 07:17:55 With:Raquel Nolan Address: [address] [place] [address]- [facility] (1) When:03/23/2024 09:16:32 [facility] 12-16-2024 NoteED Patient Education Note ENT Cough, Adult Coughing is a reflex that clears your throat and airways (respiratory system). It helps heal and protect your lungs. It is normal to cough from time to time. A cough that happens with other symptoms or that lasts a long time may be a sign of a condition that needs treatment. A short-term (acute) cough may only last 2?3 weeks. A long-term (chronic) cough may last 8 or more weeks. Coughing is often caused by: ??? Diseases, such as: ? An infection of the respiratory system. ? Asthma or other heart or lung diseases. ? Gastroesophageal reflux. This is when acid comes back up from the stomach. ??? Breathing in things that irritate your lungs. ??? Allergies. ??? Postnasal drip. This is when mucus runs down the back of your throat. ??? Smoking. ??? Some medicines. Follow these instructions at home: Medicines ??? Take nvpx-wdf-kfaehlm and prescription medicines only as told by your health care provider. ??? Talk with your provider before you take cough medicine (cough suppressants). Eating and drinking ??? Do not drink alcohol. ??? Avoid caffeine. ??? Drink enough fluid to keep your pee (urine) pale yellow. Lifestyle ??? Avoid cigarette smoke. ??? Do not use any products that contain nicotine or tobacco. These products include cigarettes, chewing tobacco, and vaping devices, such as e-cigarettes. If you need help quitting, ask your provider. ??? Avoid things that make you cough. These may include perfumes, candles, cleaning products, or campfire smoke. General instructions ??? Watch for any changes to your cough. Tell your provider about them. ??? Always cover your mouth when you cough. ??? If the air is dry in your bedroom or home, use a cool mist vaporizer or humidifier. ??? If your cough is worse at night, try to sleep in a semi-upright position. ??? Rest as needed. Contact a health care provider if: ??? You have new symptoms, or your symptoms get worse. ??? You cough up pus. ??? You have a fever that does not go away or a cough that does not get better after 2?3 weeks. ??? You cannot control your cough with medicine, and you are losing sleep. ??? You have pain that gets worse or is not helped with medicine. ??? You lose weight for no clear reason. ??? You have night sweats. Get help right away if: ??? You cough up blood. ??? You have trouble breathing. ??? Your heart is beating very fast. These symptoms may be an emergency. Get help right away. Call 911. ??? Do not wait to see if the symptoms will go away. ??? Do not drive yourself to the hospital. This information is not intended to replace advice given to you by your health care provider. Make sure you discuss any questions you have with your health care provider. Document Revised: 11/20/2022 Document Reviewed: 11/20/2022 [employer] Patient Education ? 2023 GetThis. Gastroenterology Abdominal Pain, Adult Pain in the abdomen (abdominal pain) can be caused by many things. In most cases, it gets better with no treatment or by being treated at home. But in some cases, it can be serious. Your health care provider will ask questions about your medical history and do a physical exam to try to figure out what is causing your pain. Follow these instructions at home: Medicines ??? Take hlxp-tvw-irubdim and prescription medicines only as told by your provider. ??? Do not take medicines that help you poop (laxatives) unless told by your provider. General instructions ??? Watch your condition for any changes. ??? Drink enough fluid to keep your pee (urine) pale yellow. Contact a health care provider if: ??? Your pain changes, gets worse, or lasts longer than expected. ??? You have severe cramping or bloating in your abdomen, or you vomit. ??? Your pain gets worse with meals, after eating, or with certain foods. ??? You are constipated or have diarrhea for more than 2?3 days. ??? You are not hungry, or you lose weight without trying. ??? You have signs of dehydration. These may include: ? Dark pee, very little pee, or no pee. ? Cracked lips or dry mouth. ? Sleepiness or weakness. ??? You have pain when you pee (urinate) or poop. ??? Your abdominal pain wakes you up at night. ??? You have blood in your pee. ??? You have a fever. Get help right away if: ??? You cannot stop vomiting. ??? Your pain is only in one part of the abdomen. Pain on the right side could be caused by appendicitis. ??? You have bloody or black poop (stool), or poop that looks like tar. ??? You have trouble breathing. ??? You have chest pain. These symptoms may be an emergency. Get help right away. Call 911. ??? Do not wait to see if the symptoms will go away. ??? Do not drive yourself to the hospital. This information is not intended to replace advice given to you by your health care provider. Make sure you discuss any qu (more content not included)...[facility]12-11-2024 NotePatient Education ENT Cough, Adult A cough helps to clear your throat and lungs. It may be a sign of an illness or another condition. A short-term (acute) cough may last 2?3 weeks. A long-term (chronic) cough may last 8 or more weeks. Many things can cause a cough. They include: ??? Illnesses such as: ? An infection in your throat or lungs. ? Asthma or other heart or lung problems. ? Gastroesophageal reflux. This is when acid comes back up from your stomach. ??? Breathing in things that bother (irritate) your lungs. ??? Allergies. ??? Postnasal drip. This is when mucus runs down the back of your throat. ??? Smoking. ??? Some medicines. Follow these instructions at home: Medicines ??? Take niko-mcn-xkmszaz and prescription medicines only as told by your doctor. ??? Talk with your doctor before you take cough medicine (cough suppressants). Eating and drinking ??? Do not drink alcohol. ??? Do not drink caffeine. ??? Drink enough fluid to keep your pee (urine) pale yellow. Lifestyle ??? Stay away from cigarette smoke. ??? Do not smoke or use any products that contain nicotine or tobacco. If you need help quitting, ask your doctor. ??? Stay away from things that make you cough. These may include perfume, candles, cleaning products, or campfire smoke. General instructions ??? Watch for any changes to your cough. Tell your doctor about them. ??? Always cover your mouth when you cough. ??? If the air is dry in your home, use a cool mist vaporizer or humidifier. ??? If your cough is worse at night, try using extra pillows to raise your head up higher while yousleep. ??? Rest as needed. Contact a doctor if: ??? You have new symptoms. ??? Your symptoms get worse. ??? You cough up pus. ??? You have a fever that does not go away. ??? Your cough does not get better after 2?3 weeks. ??? Cough medicine does not help, and you are not sleeping well. ??? You have pain that gets worse or is not helped with medicine. ??? You are losing weight and do not know why. ??? You have night sweats. Get help right away if: ??? You cough up blood. ??? You have trouble breathing. ??? Your heart is beating very fast. These symptoms may be an emergency. Get help right away. Call 911. ??? Do not wait to see if the symptoms will go away. ??? Do not drive yourself to the hospital. This information is not intended to replace advice given to you by your health care provider. Make sure you discuss any questions you have with your health care provider. Document Revised: 11/20/2022 Document Reviewed: 11/20/2022 [employer] Patient Education ? 2023 [employer] Infectious Disease Viral Respiratory Infection A viral respiratory infection is an illness that affects parts of the body that are used for breathing. These include the lungs, nose, and throat. It is caused by a germ called a virus. Some examples of this kind of infection are: ??? A cold. ??? The flu (influenza). ??? A respiratory syncytial virus (RSV) infection. What are the causes? This condition is caused by a virus. It spreads from person to person. You can get the virus if: ??? You breathe in droplets from someone who is sick. ??? You come in contact with people who are sick. ??? You touch mucus or other fluid from a person who is sick. What are the signs or symptoms? Symptoms of this condition include: ??? A stuffy or runny nose. ??? A sore throat. ??? A cough. ??? Shortness of breath. ??? Trouble breathing. ??? Yellow or green fluid in the nose. Other symptoms may include: ??? A fever. ??? Sweating or chills. ??? Tiredness (fatigue). ??? Achy muscles. ??? A headache. How is this treated? This condition may be treated with: ??? Medicines that treat viruses. ??? Medicines that make it easy to breathe. ??? Medicines that are sprayed into the nose. ??? Acetaminophen or NSAIDs, such as ibuprofen, to treat fever. Follow these instructions at home: Managing pain and congestion ??? Take mwna-ycm-rxidggm and prescription medicines only as told by your doctor. ??? If you have a sore throat, gargle with salt water. Do this 3?4 times a day or as needed. ? To make salt water, dissolve ??1 tsp (3?6 g) of salt in 1 cup (237 mL) of warm water. Make sure that all the salt dissolves. ??? Use nose drops made from salt water. This helps with stuffiness (congestion). It also helps soften the skin around your nose. ??? Take 2 tsp (10 mL) of honey at bedtime to lessen coughing at night. ? Do not give honey to children who are younger than 1 year old. ??? Drink enough fluid to keep your pee (urine) pale yellow. General instructions ??? Rest as much as possible. ??? Do not drink alcohol. ??? Do not smoke or use any products that contain nicotine or tobacco. If you need help quitting, ask your doctor. ??? Keep all follow-up visits. How is this pr (more content not included)...[facility] 12-22-2023 History of Present illness Narrative* WILMER Hernandez - 12/22/2023 10:30 AM EDT Reason for Appointment: Patient ID: Socorro Joseph is a 23 y.o. female who presents for No chief complaint on file. Patient presents today via telephone call for a telehealth appointment. Patients Phone #: [phone] (mobile) Current Medications: has a current medication list which includes the following prescription(s): albuterol hfa, ibuprofen, metformin, ondansetron, and ondansetron odt. Medical History: Active Ambulatory Problems Diagnosis Date Noted Depression (CMS/HCC) 09/14/2022 CUONG II (cervical intraepithelial neoplasia II) 09/24/2022 Colitis 09/24/2022 Constipation 09/24/2022 Nausea 09/24/2022 Mechanical complication of intrauterine contraceptive device 09/24/2022 Moderate episode of recurrent major depressive disorder (HCC) (CMS/HCC) 09/24/2022 Pelvic and perineal pain 09/24/2022 Cigarette smoker 09/24/2022 Vaginal odor 09/24/2022 S/P endometrial ablation 03/05/2023 Pharyngitis 08/27/2023 Non-recurrent acute suppurative otitis media of left ear without spontaneous rupture of tympanic membrane 08/27/2023 Resolved Ambulatory Problems Diagnosis Date Noted Request for sterilization 09/24/2022 Past Medical History: Diagnosis Date History of abnormal cervical Pap smear History of being hospitalized History of cervical dysplasia Post depression (CMS/HCC) Smoker Family History Problem Relation Name Age of Onset Diabetes Mother Hypertension Mother Mental illness Mother Breast cancer Mother Hypertension Father Mental illness Father No Known Problems Sister No Known Problems Daughter Cancer Son Cancer Maternal Grandmother Cancer Maternal Grandfather Cancer Paternal Grandmother Cancer Paternal Grandfather Mental illness Sibling Social History Tobacco Use Smoking status: Every Day Current packs/day: 0.50 Average packs/day: 0.5 packs/day for 6.0 years (3.0 ttl pk-yrs) Types: Cigarettes Smokeless tobacco: Never Vaping Use Vaping status: Every Day Substance Use Topics Alcohol use: Never Comment: Caffeine intake: occasional Drug use: Never Past Surgical History: Procedure Laterality Date CERVICAL BIOPSY W/ LOOP ELECTRODE EXCISION 2020 Dr Mujica ENDOMETRIAL ABLATION 02/05/2023 ENDOMETRIAL ABLATION 02/05/2023 PAP SMEAR 08/12/2021 negative FL SALPINGECTOMY COMPLETE/PARTIAL UNI/BI SPX 06/24/2022 robotic, fulguration of ovarian endometrial implant VAGINAL DELIVERY x2 No Known Allergies Vitals: Estimated body mass index is 27.58 kg/m as calculated from the following: Height as of 08/27/23: 5' 8 . Weight as of 12/13/23: 181 lb 6.4 oz. BP: Patient's last menstrual period was 11/29/2023. Assessment/Plan No diagnosis found. Today's telehealth visit consisted of spending 5 minutes talking to patient on the phone. Documented by WILMER Hernandez on behalf of: Lalo Hernandez for Appointment: Patient ID: Socorro Joseph is a 23 y.o. female who presents for No chief complaint on file. Patient presents today via telephone call for a telehealth appointment. Patients Phone #: [phone] (mobile) Current Medications: has a current medication list which includes the following prescription(s): albuterol hfa, ibuprofen, metformin, ondansetron, and ondansetron odt. Medical History: Active Ambulatory Problems Diagnosis Date Noted Depression (CMS/HCC) 09/14/2022 CUONG II (cervical intraepithelial neoplasia II) 09/24/2022 Colitis 09/24/2022 Constipation 09/24/2022 Nausea 09/24/2022 Mechanical complication of intrauterine contraceptive device 09/24/2022 Moderate episode of recurrent major depressive disorder (HCC) (CMS/HCC) 09/24/2022 Pelvic and perineal pain 09/24/2022 Cigarette smoker 09/24/2022 Vaginal odor 09/24/2022 S/P endometrial ablation 03/05/2023 Pharyngitis 08/27/2023 Non-recurrent acute suppurative otitis media of left ear without spontaneous rupture of tympanic membrane 08/27/2023 Resolved Ambulatory Problems Diagnosis Date Noted Request for sterilization 09/24/2022 Past Medical History: Diagnosis Date History of abnormal cervical Pap smear History of being hospitalized History of cervical dysplasia Post depression (CMS/HCC) Smoker Family History Problem Relation Name Age of Onset Diabetes Mother Hypertension Mother Mental illness Mother Breast cancer Mother Hypertension Father Mental illness Father No Known Problems Sister No Known Problems Daughter Cancer Son Cancer Maternal Grandmother Cancer Maternal Grandfather Cancer Paternal Grandmother Cancer Paternal Grandfather Mental illness Sibling Social History Tobacco Use Smoking status: Every Day Current packs/day: 0.50 Average packs/day: 0.5 packs/day for 6.0 years (3.0 ttl pk-yrs) Types: Cigarettes Smokeless tobacco: Never Vaping Use Vaping status: Every Day Substance Use Topics Alcohol use: Never Comment: Caffeine intake: occasional Drug use: Never Past Surgical History: Procedure Laterality Date CERVICAL BIOPSY W/ LOOP ELECTRODE EXCISION 2020 Dr Mujica ENDOMETRIAL ABLATION 02/05/2023 ENDOMETRIAL ABLATION 02/05/2023 PAP SMEAR 08/12/2021 negative FL SALPINGECTOMY COMPLETE/PARTIAL UNI/BI SPX 06/24/2022 robotic, fulguration of ovarian endometrial implant VAGINAL DELIVERY x2 No Known Allergies Vitals: Estimated body mass index is 27.58 kg/m as calculated from the following: Height as of 08/27/23: 5' 8 . Weight as of 12/13/23: 181 lb 6.4 oz. BP: Patient's last menstrual period was 11/29/2023. Assessment/Plan No diagnosis found. Today's telehealth visit consisted of spending 5 minutes talking to patient on the phone. Patient labs were reviewed and pt made aware of elevated triglycerides. Pt will follow up with pcp for further assesment Documented by WILMER Hernandez on behalf of: WILMER Hernandez documented in this encounterSaint Louis University Health Science [id number] History of Present illness Narrative* WILMER Hernandez - 12/13/2023 3:00 PM EDT Reason for Appointment: Patient ID: Socorro Joseph is a 23 y.o. female who presents for Well Women Visit Patient presents today for Annual Exam. MEDICATIONS Current Outpatient Medications Medication Instructions albuterol HFA 90 mcg/act inhaler 2 puffs, Inhalation, Every 4 hours PRN ibuprofen 200 MG tablet Oral ondansetron (ZOFRAN) 8 mg, Oral, Every 8 hours PRN ALLERGIES No Known Allergies PROBLEMS Active Ambulatory Problems Diagnosis Date Noted Depression (CMS/HCC) 09/14/2022 CUONG II (cervical intraepithelial neoplasia II) 09/24/2022 Colitis 09/24/2022 Constipation 09/24/2022 Nausea 09/24/2022 Mechanical complication of intrauterine contraceptive device 09/24/2022 Moderate episode of recurrent major depressive disorder (HCC) ([facility]/HCC) 09/24/2022 Pelvic and perineal pain 09/24/2022 Cigarette smoker 09/24/2022 Vaginal odor 09/24/2022 S/P endometrial ablation 03/05/2023 Pharyngitis 08/27/2023 Non-recurrent acute suppurative otitis media of left ear without spontaneous rupture of tympanic membrane 08/27/2023 Resolved Ambulatory Problems Diagnosis Date Noted Request for sterilization 09/24/2022 Past Medical History: Diagnosis Date History of abnormal cervical Pap smear History of being hospitalized History of cervical dysplasia Post depression ([facility]) Smoker HISTORY PAST MEDICAL HISTORY SOCIAL HISTORY Past Medical History: Diagnosis Date Constipation History of abnormal cervical Pap smear Colpo: CUONG II; Leep - CUONG II, CUONG III History of being hospitalized [facility] inflammation of stomach and ovarian cyst pain History of cervical dysplasia Pelvic and perineal pain Post depression ([facility]) Smoker Social History Tobacco Use Smoking status: Every Day Current packs/day: 0.50 Average packs/day: 0.5 packs/day for 6.0 years (3.0 ttl pk-yrs) Types: Cigarettes Smokeless tobacco: Never Vaping Use Vaping status: Every Day Substance Use Topics Alcohol use: Never Comment: Caffeine intake: occasional Drug use: Never FAMILY HISTORY Family History Problem Relation Name Age of Onset Diabetes Mother Hypertension Mother Mental illness Mother Breast cancer Mother Hypertension Father Mental illness Father No Known Problems Sister No Known Problems Daughter Cancer Son Cancer Maternal Grandmother Cancer Maternal Grandfather Cancer Paternal Grandmother Cancer Paternal Grandfather Mental illness Sibling SURGICAL HISTORY Past Surgical History: Procedure Laterality Date CERVICAL BIOPSY W/ LOOP ELECTRODE EXCISION 2020 Dr Mujica ENDOMETRIAL ABLATION 02/05/2023 ENDOMETRIAL ABLATION 02/05/2023 PAP SMEAR 08/12/2021 negative FL SALPINGECTOMY COMPLETE/PARTIAL UNI/BI SPX 06/24/2022 robotic, fulguration of ovarian endometrial implant VAGINAL DELIVERY x2 REVIEW OF SYSTEMS Review of Systems: Review of Systems Constitutional: Negative. HENT: Negative. Eyes: Negative. Respiratory: Negative. Cardiovascular: Negative. Gastrointestinal: Negative. Genitourinary: Negative. Musculoskeletal: Negative. Skin: Negative. Neurological: Negative. All other systems reviewed and are negative. Hematological: Negative. Endocrine: Negative. Allergic/Immunologic: Negative. OBJECTIVE Objective: Physical Exam Constitutional: Appearance: Normal appearance. She is well-developed. Genitourinary: Vulva normal. Right Adnexa: not tender and no mass present. Left Adnexa: not tender and no mass present. No cervical discharge. Breasts: Breasts are soft. Right: Normal. Left: Normal. HENT: Head: Normocephalic. Nose: Nose normal. Mouth/Throat: Mouth: Mucous membranes are moist. Cardiovascular: Rate and Rhythm: Normal rate and regular rhythm. Pulmonary: Effort: Pulmonary effort is normal. Breath sounds: Normal breath sounds. Abdominal: General: Bowel sounds are normal. There is no distension. Palpations: Abdomen is soft. Tenderness: There is no abdominal tenderness. There is no guarding or rebound. Musculoskeletal: General: No swelling. Normal range of motion. Cervical back: Normal range of motion. Right lower leg: No edema. Left lower leg: No edema. Neurological: General: No focal deficit present. Mental Status: She is alert and oriented to person, place, and time. Skin: General: Skin is warm and dry. Psychiatric: Mood and Affect: Mood normal. Behavior: Behavior normal. Vitals and nursing note reviewed. Exam conducted with a administrative judge present. Vitals: Estimated body mass index is 27.58 kg/m as calculated from the following: Height as of 08/27/23: 5' 8 . Weight as of this encounter: 181 lb 6.4 oz. BP: 100/60 Patient's last menstrual period was 11/29/2023. ASSESSMENT & PLAN ICD-10-CM 1. Well woman exam with routine gynecological exam Z01.419 Pap Smear Annual Exam: Patient presents today for an annual exam. Patient states she is doing well other than history of chronic nausea in the mornings. States nauseated almost daily with family history of gall bladder issues. Pap was obtained without difficulty. Patient did have questions in regards gaining weight sinceknowing history of pcos. Pt has tried metformin in past but stopped due to side effects. We will send in metformin, not extended release and see if she tolerates better. We will order wellness labs as well Follow Up: Patient is to return in one year for annual unless needed otherwise. Documented by Sahara Rust LPN on behalf of: WILMER Hernandez documented in this encounterSaint Louis University Health Science [id number] Hospital Discharge instructions Patient Education 06/30/2023 00:02:57 Nausea and Vomiting, Adult, Wmbj-xp-Dssp Nausea and Vomiting, Adult Nausea is feeling [...] fruit juice). ?Low-calorie sports drinks. Eat bland, uued-fq-qumuxv foods in small amounts as you are able, such as: ?Bananas. ?Applesauce. ?Rice. ?Low-fat (lean) meats. ?[place]. ?Crackers. Avoid drinking fluids that have a lot of sugar or caffeine in them. This includes energy drinks, sports drinks, and soda. Avoid alcohol. Avoid spicy or fatty foods. General instructions Take swyb-oar-yqsttqu and prescription medicines only as told by your doctor. Drink enough fluid to keep your pee (urine) pale yellow. Wash your hands often with soap and water for at least 20 seconds. If you cannot use soap and water, use hand solar photovoltaic electrician. Make sure that everyone in your home [...] your doctor about eating and drinking. Take pxwl-wdr-xcjanjh and prescription medicines only as told by your doctor. Contact your doctor if your symptoms get worse or you have new symptoms. Keep all follow-up visits. This information is not intended to replace advice given to you by your health care provider. Make sure you discuss any questions you have with your health care provider. Document Revised: 09/26/2021 Document Reviewed: 09/26/2021 [employer] Patient Education 2022 [employer]. 06/30/2023 00:02:57 General Headache Without Cause, Xbcs-hr-Fgmq General Headache Without Cause A headache is pain or discomfort you feel around the head or neck area. There are many causes and types of headaches. In some cases, the cause may not be found. Follow these instructions at home: Watch your condition for any changes. Let your doctor know about them. Take these steps to help with your condition: Managing pain Take mmks-msi-jmjthbr and prescription medicines only as told by [...] right away. Call your local emergency services ([facility] [place] Do not wait to see if [...] throw up, you have trouble seeing, you loseyour balance, or you have a seizure. This information is not intended to replace advice given to you by your health care provider. Make sure you discuss any questions you have with your health care provider. Document Revised: 08/20/2021 Document Reviewed: 08/20/2021 [employer] Patient Education 2022 [employer] 06/30/2023 00:02:57 Abdominal Pain, Adult, Pngo-dm-Sfmv Abdominal Pain, Adult Many things can cause belly (abdominal) pain. Most times, belly pain is not dangerous. Many cases of belly pain can be watched and treated at home. Sometimes, though, belly pain is serious. Your doctor will try to find the cause of your belly pain. Follow these instructions at home: Medicines Take pmou-mry-skkqpws and prescription medicines only as told by [...] your belly pain for any changes. Take dkew-cvv-copvpmj and prescription medicines only as told by [...] provider. Document Revised: 07/31/2019 Document Reviewed: 07/31/2019 [employer] Patient Education 2022 GetThis. Follow Up Care 06/29/2023 19:12:13 With:Raquel Nolan Address: [place] [address]- Business (1) When:07/02/2023 Comments:You can take the medications as prescribed as needed for pain. Please follow-up with your primary care doctor in the next 2 to 3 days for further evaluation management. Please return to the ED for any new or worsening symptoms. [facility]03-26-2024 Evaluation + Plan noteExtracted from: Title:ED Note [...] day(s), # 9 tab(s), Refills(s) 0, Pharmacy: [facility], 175, cm, 06/29/23 19:28:00 EDT, Height/Length Dosing, 82, kg, 06/29/23 19:28:00 EDT, Weight Dosing metoclopramide, 10 mg = 2 mL, Injection, IV Push, Once, Stop date 06/29/23 21:00:00 EDT, STAT, Start date 06/29/23 21:00:00 EDT, 06/29/23 21:00:00 EDT naproxen, 500 mg = 1 tab(s), Oral, BID, PRN for pain, # 20 tab(s), Refills(s) 0, Pharmacy: [facility], 175, cm, 06/29/23 19:28:00 EDT, Height/Length Dosing, 82, kg, 06/29/23 19:28:00 EDT, Weight Dosing ondansetron, 4 mg = 1 tab(s), Oral, q8hr, # 12 tab(s), Refills(s) 0, Pharmacy: [facility], 175, cm, 06/29/23 19:28:00 EDT, [...] Panel Lipase Level UA with Cult Rflx [facility]11-14-2023 Evaluation + Plan noteExtracted from: Title:ED [...] date 02/16/23 6:40:00 EST, STAT, Start date 11/14/23 6:40:00 EST, 02/16/23 6:40:00 EST Sodium Chloride [...] Level Saline Lock Insert Troponin 0 Hr. [facility]11-14-2023 Hospital Discharge instructions Patient Education 02/16/2023 [...] water added (diluted fruit juice). Eat bland, veee-up-qwaqtl foods in small amounts as you are able. These foods include bananas, applesauce, rice, lean meats, toast, and crackers. Avoid fluids that contain a lot of sugar or caffeine, such as energy drinks, sports drinks, and soda. Avoid alcohol. Avoid spicy or fatty foods. General instructions Take hglq-lrs-ardnvod and prescription medicines only as told by your health care provider. Drink enough fluid to keep your urine pale yellow. Wash your hands often using soap and water for at least 20 seconds. If soap and water are not available, use hand solar photovoltaic electrician. Make sure that everyone in your household [...] eating and drinking to prevent dehydration. Take ttdc-etj-ilknnoc and prescription medicines only as told by [...] provider. Document Revised: 09/26/2021 Document Reviewed: 09/26/2021 [employer] Patient Education 2022 GetThis. Follow Up Care 02/16/2023 05:06:19 With:Lilliam Lisa Address: [address] [place], [place] [id number] Business (1) When:Within 3 Day(s) [facility]03-22-2023 NoteOPERATIVE NOTE OPERATION DATE: 06/24/2022 PROCEDURE: Robotic assisted bilateral laparoscopic salpingectomy, fulguration of ovarian endometrial implant. PREOPERATIVE DIAGNOSIS: Desires permanent sterilization, multiparity. POSTOPERATIVE DIAGNOSIS: Desires permanent sterilization, multiparity. ANESTHESIA: General. SURGEON: Shaan Witt D.O. TRAINING PROJECT MANAGER: ASHLEY Dominguez URINE OUTPUT: Yellow and clear. [...] lap and needle counts were correct x2.[facility] [id number] NoteHNO ID: [id number] Author: Javier Gutierrez MD Service: ? Author Type: Physician Type: Progress Notes Filed: 10/10/2021 3:41 PM Note Text: NAME: Socorro Joseph CLINIC NO: [id number] REASON FOR VISIT Socorro Joseph is a [...] No masses or organomegaly. (more content not included)...[facility]07-08-2022 History of Present illness Narrative* Javier Gutierrez MD - 10/10/2021 2:00 PM EDT [facility] NO: [id number] REASON FOR VISIT Socorro Joseph is a [...] a result as a 8 year old, andrecently on 09/[address] Although CT incidentally showed ?gastroenteritis (report unavailable), her clinical picture is consistent with constipation induced nausea and abdominal pain. Suspect const ipation from pelvic floor dysfunction. PLAN - Prescribed Miralax once daily, advised to titrate as needed for desired effect - ARM ordered to rule out dyssynergic defecation in s/o severe constipation Elver williamson Kesha Nicholson MD October 10, 2021 11:07 AM Gastroenterology, IBD Fellow, PGY- VII Javier Gutierrez MD October 10, 2021 11:07 AM [facility] Hospital Discharge instructions Patient Education 09/18/2021 03:02:59 Ovarian Cyst, Wqzw-sc-Nnyx Ovarian Cyst An ovarian cyst is a fluid-filled sac on an ovary. The ovaries are organs that make eggs in women. Most ovarian cysts go away on their own and are not cancerous (are benign). Some cysts need treatment. Follow these instructions at home: Take okqf-jop-yjkanbn and prescription medicines only as told by [...] 09/07/2008 Document Revised: 03/04/2018 Document Reviewed: 08/23/2016 [employer] Patient Education 2020 GetThis. 09/18/2021 03:02:59 Colitis Colitis Colitis is inflammation [...] if you start to feel better. Take hqvf-gwq-zmmfdiv and prescription medicines only as told by [...] 04/29/2005 Document Revised: 09/22/2018 Document Reviewed: 09/22/2018 [employer] Patient Education 2020 GetThis. Follow Up Care 09/17/2021 22:00:56 With:Jeff ROACH Address: [address] [place] [address] Business (1) When:09/21/2021 Comments:Take The antibiotics as prescribed until you have completed the course. You can use the Zofran every 6 hours as needed for nausea and vomiting. You can use the [place] every 6 hours as needed for pain or the Bentyl every 8 hours. Please follow-up with your primary care doctor in addition to GI for further evaluation and management of the inflammation of your colon. Please return to the ED for any new or worsening symptoms. With:Raquel Nolan Address: [address] [place] [address] Business (1) When:Within 3 Day(s) [facility]06-15-2022 Evaluation + Plan noteExtracted from: Title:ED Note Author:Ventura DE LA ROSA Tearben Palm Date :09/17/21 Acute colitis (K52.9: Noninf ective [...] Date:11/19/2021 08:00:00 AM Scheduled Provider:Jeff ROACH MD Location:[facility] Digestive Health Appointment Type:[facility] New Patient [facility]04-13-2022 Hospital Discharge instructions Patient Education 07/16/2021 [...] 03/22/2006 Document Revised: 06/29/2018 Document Reviewed: 04/23/2017 [employer] Patient Education [employer]. Follow Up Care 07/16/2021 14:22:36 With:Sujit Mujica Address: [address] [address]- Business (1) When:07/18/2021 16:29:07 Comments:Make sure to follow-up with Dr. Mujica as discussed. Return to the emergency room if your bleeding gets worse, you develop dizziness your abdominal pain gets worse or any new symptoms. With:Lilliam Gonzalez Address: [address] [place] [phone]- Business (1) When:Within 3 Day(s) [facility]04-13-2022 Evaluation + Plan noteExtracted from: Title:ED Note Author:Ollie Sneed, Lucila Arnold te:07/16/21 1. Abnormal vaginal bleeding (N93.9: Abnormal [...] Beta Hcg Qual UA With Cult Reflex [facility]* Diagnosis Constipation, unspecified constipation type- Primary documented in this [facility]* Diagnosis Wellness examination- Primary documented in this encounter [facility]* Diagnosis Nausea- Primary Nausea alone Acute cough- Primary Nausea Nausea alone Nasal congestion Other diseases of nasal cavity and sinuses Ear fullness, bilateral BMI 27.0-27.9,adult Overweight [facility] Diagnosis Well woman exam with routine gynecological exam Routine gynecological examination PCOS (polycystic ovarian syndrome) Polycystic ovaries Nausea Nausea alone documented in this encounter [facility]* Diagnosis Nausea- Primary Nausea alone Leukocytosis, unspecified type- Primary Gastroesophageal reflux disease, unspecified whether esophagitis present BMI 26.0-26.9,adult Overweight [facility] Diagnosis Nausea- Primary Nausea alone Intractable episodic headache, unspecified headache type- Primary Nausea Nausea alone Facial tingling Overweight BMI 27.0-27.9,adult [facility] Diagnosis Nausea- Primary Nausea alone Acute diarrhea- Primary Diarrhea Nausea Nausea alone Abdominal cramping Abdominal pain, unspecified site documented in this encounter [facility]* Diagnosis Nausea- Primary Nausea alone Well woman exam with routine gynecological exam Routine gynecological examination UTI symptoms Exposure to STD Vaginal discharge Leukorrhea, not specified as infective [facility] this encounter [facility] Narrative No data available for this section [facility] No data available for this section [facility]Progress note No data available for this section [facility] HospitalReason for referral (narrative)* Outpatient Procedure (Routine) - Authorized Specialty Diagnoses / Procedures Referred By Keo mcneal Referred To Contact [facility] Diagnoses Constipation, unspecified constipation type Procedures [facility] [place] [facility] ANORECTAL MANOMETRY Javier Gutierrez MD [address] [place] [address] [facility] [address] [place] [address] Referral ID Status Reason Start Date Expiration Date Visits Requested Visits Authorized [id number] Authorized Auto-Generat ed Referral 10/10/2021 10/10/2022 1 1 [facility] Summary Purpose Family History No Family [...] section and content) DATE CREATED AUTHOR 09/23/2017 [facility] DATE CREATED AUTHOR AUTHOR'S ORGANIZ ATION 11/07/2021 [facility] DATE CREATED AUTHOR AUTHOR'S ORGANIZ ATION 07/10/2022 [facility] DATE CREATED AUTHOR AUTHOR'S ORGANIZ ATION 12/16/2023 [facility] DATE CREATED AUTHOR AUTHOR'S ORGANIZ ATION 03/21/2024 [facility] DATE CREATED AUTHOR AUTHOR'S ORGANIZ ATION 04/18/2024 [facility] DATE CREATED AUTHOR AUTHOR'S ORGANIZ ATION 04/19/2024 [facility] DATE CREATED AUTHOR AUTHOR'S ORGANIZ ATION 06/12/2024 [facility] DATE CREATED AUTHOR AUTHOR'S ORGANIZ ATION 06/18/2024 [facility] DATE CREATED AUTHOR AUTHOR'S ORGANIZ ATION 06/20/2024 [facility] DATE CREATED AUTHOR AUTHOR'S ORGANIZ ATION 12/08/2024 [facility] Special[facility] Care Team (unrecognized sect ion and content) [employer] Relationship Specialty Start Date End Date Raquel Nolan MD [address] [place] [address] PCP - General [facility] 09/14/22 Raquel Nolan MD [address] [place] [address] PCP - [facility] 10/03/22 [employer] Relationship Specialty Start Date End Date Raquel Nolan MD [address] [place] [address] PCP - [facility] 09/14/22 Raquel Nolan MD [address] [place] [address] PCP - [facility] 10/03/22 [employer] Relationship Specialty Start Date End Date Raquel Nolan MD [address] [place] [address] PCP - [facility] 09/14/22 [employer] Relationship Specialty Start Date End Date Raquel Nolan MD [address] [place] [address] PCP - [facility] 09/14/22 [employer] Relationship Specialty Start Date End Date Raquel Nolan MD [address] [place] [address] PCP - [facility] 09/14/22 Raquel Nolan MD [address] [place] [address] PCP - [facility] 10/03/22 [employer] Relationship Specialty Start Date End Date Raquel Nolan MD [address] [place] [address] PCP - [facility] 09/14/22 Raquel Nolan MD [address] [place] [address] PCP - [facility] 10/03/22 [employer] Relationship Specialty Start Date End Date Raquel Nolan MD [address] [place] [address] PCP - [facility] 09/14/22 Raquel Nolan MD [address] [place] [address] PCP - [facility] 05/06/24 [employer] Relationship Specialty Start Date End Date Raquel Nolan MD [address] [place] [address] PCP - General Family [facility] 09/14/22 Raquel Nolan MD [address] [place] [address] PCP - [employer] 05/06/24 [employer] Relationship Specialty Start Date End Date Raquel Nolan MD [address] [place] [address] PCP - General [facility] 09/14/22 Raquel Nolan MD [address] [place] [address] PCP - [employer] 08/03/24 [employer] Relationship Specialty Start Date End Date Raquel Nolan MD [address] [place] [address] PCP - General Family Medicine 09/14/22 Raquel Nolan MD [address] [place] [address] PCP - [employer] 08/03/24 [employer] Relationship Specialty Start Date End Date Raquel Nolan MD [address] [place] [address] PCP - General Family Medicine 09/14/22 Raquel Nolan MD [address] [place] [address] PCP - [employer] 08/03/24 [employer] Relationship Specialty Start Date End Date Raquel Nolan MD [address] [place] [address] PCP - General Family [facility] 09/14/22 Raquel Nolan MD [address] [place] [address] PCP - [employer] 08/03/24 Source Comments (unrecognize d section and content) In the event this informatio n is protected by the Federal Confidentiality of Alcohol and Drug Abuse Patient Records regulations: The Federal rules restrict any use of the information to criminally investigate or prosecute any alcohol or drug abuse patient.[facility] Reason for Visit (unrecogniz ed section and content) Reason Comments New Patient inflammation in abdo mon Reason Comments Abdominal Pain Nausea Cough Earache Sinusitis Reason Comments Well Women Visit Reason Comments Immunizations Declines at this elver e ER Follow-up Results Discuss WBC and Acid Reflux Reason Comments Dizziness Migraine Tingling L side of face. Chest Pain Reason Comments Diarrhea Nausea FOR RECORDS PERTAINING TO PATIENTS WHO ARE [...] BE BASED ON THE PRIMARY CLINICAL RECORDS. [employer] provides no warranty or guarantee of the accuracy or completeness of information in this document.
[2024-12-22 19:08] LABS: Age Gdln ACOG Testing Note (.); IGP, rfx Aptima HPV ASCU Note (.)
== END 2024-12-18 20:21 | disposition home or self-care (01) ==
LOC: LAB 20:20
PROVIDERS: Visit Provider Physician Assistant
DX: Z01.419 Encounter for gynecological examination (general) (routine) without abnormal findings (principal)
CPT/HCPCS: 88175

== ENCOUNTER 2025-02-02 12:08 | Outpatient (OUT) | payer BC, SELFPAY ==
--- OUTSIDE RECORDS SUMMARY | 2025-01-24 10:00 | XMS_ITS | Encounter Summary ---
Author Organization [facility] Address [address] [place] [address] Care Team Providers Care Manager Domestic Name Role Phone Raquel Nolan MD Primary Care Provider [phone] Raquel Nolan MD Unavailable [phone] Encounter Details DateTypeDepartmentCare Team (Latest Contact Info)Fvgqjazwhpe40/22/2025 10:00 AM EDTAncillary Procedure [facility] [address] [place] [address] [place] [address] PCOS (polycystic ovarian syndrome); S/P endometrial ablation; Abnormal uterine bleeding (AUB); Pelvic pain in female Social History Tobacco UseTypesPacks/DayYears UsedDateSmoking Tobacco: Every DayCigarettes0.56 Smokeless Tobacco: NeverAlcohol UseStandard Drinks/WeekCommentsNever0 (1 standard drink = 0.6 oz pure alcohol)Caffeine intake: occasionalPHQ-2AnswerDate RecordedPatient Health Questionnaire-2 [id number] and Gender InformationValueDate RecordedSex Assigned at BirthNot on fileLegal Sex Xnzciq6806/17/2022 7:20 PM EDTGender IdentityNot on fileSexual OrientationNot on filedocumented as of this encounter Plan of Treatment DateTypeDepartmentCare Team (Latest Contact Info)Uootlhibvnt97/22/2026 3:00 PM EDTProcedure Visit [facility] [address] [place] [address] Nia Colbert PA [address] [place] [address] documented as of this encounter Procedures Procedure NamePriorityDate/TimeAssociated DiagnosisCommentsUS PELVIC COMPLETE W/ JGLzugmxe00/22/2025 10:36 AM EDT PCOS (polycystic ovarian syndrome) S/P endometrial ablation Abnormal uterine bleeding (AUB) Pelvic pain in female documented in this encounter Results * US Pelvis w/ TV (01/24/2025 10:36 AM EDT)Anatomical RegionLateralityModality PelvisUltrasoundSpecimen (Source)Anatomical Location / LateralityCollection Method / VolumeCollection TimeReceived Time01/24/2025 1:50 PM EDT Impressions 01/24/2025 2:01 PM EDT 1. Follicular ovaries, overall morphology can be consistent with PCOS. 2. ??Normal endometrium. TRANSCRIBED BY: ? ELECTRONICALLY SIGNED BY: Dmitriy Kimball MD Narrative 01/24/2025 2:01 PM EDT FINDINGS: Uterus ? 8.7 x 4.7 x 6.1 cm Endometrium ? 6 mm Right Ovary ?3.9 x 1.8 x 2.9 cm Left Ovary ?4.8 x 2.8 x 3.2 cm (cyst) Mild retroversion and retroflexion uterine fundus. Normal myometrium. 6 mm endometrium. No endometrial mass or cystic changes. No pelvic fluid. Both ovaries contain multiple subcentimeter follicles. ??Left ovary also contains a 2.7 x 2.4 x 2.2benign cyst. Procedure Note Dmitriy Kimball MD - 01/24/2025 FINDINGS: Uterus 8.7 x 4.7 x 6.1 cm Endometrium 6 mm Right Ovary 3.9 x 1.8 x 2.9 cm Left Ovary 4.8 x 2.8 x 3.2 cm (cyst) Mild retroversion and retroflexion uterine fundus. Normal myometrium. 6 mm endometrium. No endometrial mass or cystic changes. No pelvic fluid. Both ovaries contain multiple subcentimeter follicles. Left ovary alsocontains a 2.7 x 2.4 x 2.2 benign cyst. IMPRESSION: 1. Follicular ovaries, overall morphology can be consistent with PCOS. 2. Normal endometrium. TRANSCRIBED BY: ELECTRONICALLY SIGNED BY: Dmitriy Kimball MD Authorizing ProviderResult TypeResult StatusCorey Miryam [facility] PROCEDURESFinal Result documented in this encounter Visit Diagnoses Diagnosis PCOS (polycystic ovarian syndrome) Polycystic ovaries S/P endometrial ablation Other postprocedural status Abnormal uterine bleeding (AUB) Pelvic pain in female Unspecified symptom associated with female genital organs documented in this encounter Care Teams Team MemberRelationshipSpecialtyStart DateEnd Date Raquel Nolan MD [address] [place] [address] [facility] Raquel Nolan MD [address] [place] [address] PCP - Dewayne Yun08/03/24documented as of this encounter
--- OUTSIDE RECORDS SUMMARY | 2025-01-24 11:10 | XMS_ITS | Encounter Summary ---
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 Name Role Phone Raquel Nolan MD Primary Care Provider [phone] Raquel Nolan MD Unavailable [phone] Reason for Visit * ReasonCommentsPre-op Visit Encounter Details DateTypeDepartmentCare Team (Latest Contact Info)Upudjgsetiy51/22/2025 11:10 AM EDTConsult [facility] [address] [place] [address] Shaan Witt DO [address] [place], [place] [id number] Pre-operative exam; Menorrhagia with irregular cycle; Pelvic pain in female; Dysmenorrhea; Dyspareunia, female Social History Tobacco UseTypesPacks/DayYears UsedDateSmoking Tobacco: Every DayCigarettes0.56 Smokeless Tobacco: NeverAlcohol UseStandard Drinks/WeekCommentsNever0 (1 standard drink = 0.6 oz pure alcohol)Caffeine intake: occasionalPHQ-2AnswerDate RecordedPatient Health Questionnaire-2 Jyfvn261CommentsNoSex and Gender InformationValueDate RecordedSex Assigned at BirthNot on fileLegal Sex Jlhobb2006/17/2022 7:20 PM EDTGender IdentityNot on fileSexual OrientationNot on filedocumented as of this encounter Last Filed Vital Signs Vital SignReadingTime TakenCommentsBlood Mhkfxqdy855/8010/ 10:48 AM EDT Pulse--Temperature--Respiratory Rate--Oxygen Saturation--Inhaled Oxygen Concentration--Vegytg02.7 kg (186 lb 12.8 oz)01/24/2025 10:48 AM EDTHeight--Body Mass Index28. 12:38 PM EDTdocumented in this encounter Progress Notes * Krista Mandujano - 01/24/2025 11:10 AM EDT Reason for Appointment: Patient ID: Olamide Joseph is a 24 y.o. female who presents for Pre-op Visit Patient presents today for Pre Op appointment. Patient is scheduled to undergo Da Aliya assisted Laparoscopic Hysterectomy, possible exploratory laparotomy, possible BSO, possible cystoscopy on 02/19/[address] Witt at [facility]. MEDICATIONS Current Outpatient Medications Medication Instructions famotidine (PEPCID) 40 mg, Oral, Nightly pantoprazole (PROTONIX) 40 mg, Oral, Daily, Do not crush, chew, or split. ALLERGIES No Known Allergies PROBLEMS Active Ambulatory [...] II, CUONG III History of being hospitalized [facility] inflammation of stomach and ovarian cyst pain [...] ENDOMETRIAL ABLATION 02/05/2023 PAP SMEAR 08/12/2021 negative [place] SALPINGECTOMY COMPLETE/PARTIAL UNI/BI SPX 06/24/2022 robotic, fulguration of ovarian endometrial implant VAGINAL DELIVERY x2 REVIEW OF SYSTEMS Review of Systems: Review of Systems Constitutional: Negative. HENT: Negative. Eyes: Negative. Respiratory: Negative. Cardiovascular: Negative. Gastrointestinal: Negative. Genitourinary: Positive for dyspareunia, menstrual problem and pelvic pain. Musculoskeletal: Negative. Skin: Negative. Neurological: Negative. All other systems reviewed and are negative. Hematological: Negative. Endocrine: Negative. Allergic/Immunologic: Negative. OBJECTIVE Objective: Physical Exam Constitutional: Appearance: Normal appearance. She is well-developed. Cardiovascular: Rate and Rhythm: Normal rate and regular rhythm. Pulmonary: Effort: Pulmonary effort is normal. Breath sounds: Normal breath sounds. Abdominal: General: Bowel sounds are normal. There is no distension. Palpations: Abdomen is soft. Tenderness: There is no abdominal tenderness. There is no guarding or rebound. Musculoskeletal: General: No swelling. Normal range of motion. Right lower leg: No edema. Left lower leg: No edema. Neurological: Mental Status: She is alert and oriented to person, place, and time. Skin: General: Skin is warm and dry. Psychiatric: Mood and Affect: Mood normal. Behavior: Behavior normal. Vitals and nursing note reviewed. Exam conducted with a motor expert present. Vitals: Estimated body mass index is 28.4 kg/m?? as calculated from the following: Height as of 09/26/24: 5' 8 . Weight as of this encounter: 186 lb 12.8 oz. BP: 120/80 Patient's last menstrual period was 01/11/2025. ASSESSMENT & PLAN ICD-10-CM 1. Pre-operative exam Z01.818 2. Menorrhagia with irregular cycle N92.1 3. Pelvic pain in female R10.20 4. Dysmenorrhea N94.6 5. Dyspareunia, female N94.10 Pre Op: Patient is doing well but has complaints of menorrhagia, pelvic pain, dyspareunia, and dysmenorrhea. I have discussed conservative management vs. surgical management with the patient in detail and patient desires surgical management at this time. Patient will undergo Da Aliya assisted Laparoscopic H ysterectomy, possible exploratory laparotomy, possible BSO, possible cystoscopy on 02/19/2025. Surgical consents were signed, mmc was reviewed, and patient is to proceed to [facility] OR. Follow Up: Patient is to follow up at 1 & 6 weeks post operative to assess proper healing and recovery from procedure. Documented by Debi Nunez LPN on behalf of: Shaan Witt DO documented in this encounter Plan of Treatment DateTypeDepartmentCare Team (Latest Contact Info)Izznanvqjyr22/22/2026 3:00 PM EDTProcedure Visit [facility] [address] [place] [address] Nia Colbert PA [address] [place] [address] documented as of this encounter Visit Diagnoses Diagnosis Pre-operative exam Unspecified pre-operative examination Menorrhagia with irregular cycle Pelvic pain in female Unspecified symptom associated with female genital organs Dysmenorrhea Dyspareunia, female documented in this encounter Care Teams Team MemberRelationshipSpecialtyStart DateEnd Date Raquel Nolan MD [address] [place] [address] PCP - GeneralFamily Medicine09/14/22 Raquel Nolan MD [address] [place] [address] PCP - [employer]08/03/24documented as of this encounter
--- OUTSIDE RECORDS SUMMARY | 2025-02-02 12:14 | XMS_ITS | Clinical Summary ---
Author Organization [facility] Address [address] [place] [address] Care Team Providers Care Experimental Technician Name Role Phone Raquel Nolan MD Primary Care Provider [phone] Raquel Nolan MD Unavailable [phone] Allergies No known active allergies Medications MedicationSigDispense QuantityRefillsLast FilledStart DateEnd DateStatus pantoprazole (ProtoNix) 40 MG EC tablet Indications:Gastroesophageal reflux disease, unspecified whether esophagitis presentTake 1 tablet (40 mg) by mouth Daily Do not crush, chew, or split. 90 tablet 5006/15/2025ctive famotidine (Pepcid) 40 MG tablet Indications:Gastroesophageal reflux disease, unspecified whether esophagitis presentTake 1 tablet (40 mg) by mouth at bedtime 90 tablet 506Active ondansetron (Zofran) 4 MG tablet Indications:NauseaTake 1 tablet (4 mg) by mouth every 8 (eight) hours if needed for nausea or vomiting 12 tablet Discontinued Active Problems ProblemNoted DateDiagnosed IuwxDlhbcahdviz99/24/2024Non-recurrent acute suppurative otitis media of left ear without spontaneous rupture of tympanic mem brane08/27/2023S/P endometrial /01/2023IN II (cervical intraepithelial neoplasia II)09/24/20225575Wynuoes96/22/1381Incwzzsmcpjh56/22/2023 Rljcsw7009/24/2022 Assessment & Plan (09/21/2023 9:54 AM EDT): Patient states stomach pain is residing Will try zofran as needed Patient ok for work excuse Patient advised if symptoms change or worsen go to ER Mechanical complication of intrauterine contraceptive oyxcko7909/24/2022Moderate episode of recurrent major depressive edscoxif64/22/2023Pelvic and perineal pain 3Cigarette ljpapj5809/24/2022Vaginal odor09/24/20222772Sskpcmmpet98/12/2023 Resolved Problems ProblemNoted DateDiagnosed DateResolved DateRequest for edptftaswrgge97/22/2023 06/30/2023 Encounters DateTypeDepartmentCare SuxnTqhnqsonuva83/22/2025 11:10 AM EDTConsult [facility] [address] [place] [address] [place] [address] Shaan Witt, Pre-operative exam; Menorrhagia with irregular cycle; Pelvic pain in female; Dysmenorrhea; Dyspareunia, ygxpxp2101/24/2025 10:00 AM EDTAncillary Procedure [facility] [address] [place] [address] [place] [address] PCOS (polycystic ovarian syndrome); S/P endometrial ablation; Abnormal uterine bleeding (AUB); Pelvic pain in yrlfbl3001/04/2025Orders Only [facility] [address] [place], [place] [address] [address] Vale Hernandez MA 12/20/2024Orders Only [facility] [address] [place], [place] [address] [address] Shaan Witt DO PCOS (polycystic ovarian syndrome); S/P endometrial ablation; Abnormal uterine bleeding (AUB); Pelvic pain in bostmo7412/18/2024 3:00 PM EDTOffice Visit [facility] [place] [address] Nia Colbert PA Well woman exam with routine gynecological exam; UTI symptoms; Exposure to STD; Vaginal boahzbwoq81/15/2025linisync Result Encounter [facility] Unsolicited Nia Colbert PA 12/18/2024External Result Encounter [facility] Unsolicited Nia Colbert PA 12/18/2024amboo flowsheet [facility] HARDYDianna [address] [place] [address] [place] [address] Nia Colbert PA 12/17/20245160Sbgvcz79/05/2025Telephone [facility] [address] [place] [address] Jessie Colin Prior Mlzmjatlvpnxb92/03/2025 10:40 AM EDTOffice Visit [facility] [address] [place] [address] Cherise Jaimes, CARLOZ Acute diarrhea (Primary Dx); Nausea; Abdominal tmzlzehl46/03/2025Travelfrom Last 3 Months Immunizations ImmunizationAdministration DatesNext OxwBOxO81/06/2004,12/24/1999,04/30/1999, 02/26/1999,1998DTaP, Xbhwezmzmvj90/06/2004,12/24/1999,04/30/1999, 02/26/1999,1998HPV, Xxaxhqndvzo12/25/2017,11/26/2016Hep A, Unspecified 01/27/2017Hep B, Adolescent or Mkajwouzy74/26/2000,1998,1998Hib (PRP-OMP)12/24/1999,04/30/1999,02/26/1999,1998IPV12/24/1999,02/26/1999, 1998MMR1,12/24/1999Meningococcal ACWY, xlshmluggtd04/09/2016 Meningococcal B, Ptlcgnnrynx79/25/2017Meningococcal GJZ1W6412/13/2015Novel cotditigl-R2T9-62, preservative-free02/21/2009Pneumococcal Conjugate PCV 7 07/21/2000,03/24/2000Polio, Studbxbtqzp57/06/2004,12/24/1999,02/26/1999, 1998Tdap06/19/2019,09/15/2017,11/24/2010Tetanus Toxoid, Unspecified 06/19/2019 Family History Medical HistoryRelationNameCommentsNo Known ProblemsDaughterHypertensionFather Mental illnessFatherCancerMaternal GrandfatherCancerMaternal GrandmotherBreast cancerMotherDiabetesMotherHypertensionMotherMental illnessMotherCancerPaternal GrandfatherCancerPaternal GrandmotherMental illnessSiblingNo Known Problems RrmmdqNnbwveEbxJmgpdkagPgtjRwfodkLyfbnqgnBiousedo0BehhdiPtjdvRtxjadkd GrandfatherMaternal GrandmotherMotherAlivePaternal GrandfatherPaternal PswcnaiewwiCnnlhzqSukbem7Xtb Social History Tobacco UseTypesPacks/DayYears UsedDateSmoking Tobacco: Every DayCigarettes0.56 Smokeless Tobacco: Never Tobacco Cessation:Ready to Q uit: Not Asked; Counseling Given: Not Answered Alcohol UseStandard Drinks/WeekCommentsNever0 (1 standard drink = 0.6 oz pure alcohol)Caffeine intake: occasionalPHQ-2AnswerDate RecordedPatient Health Questionnaire-2 Adzvd464CommentsNoSex and Gender Information ValueDate RecordedSex Assigned at BirthNot on fileLegal VniJjuzye52/15/2023 7:20 PM EDTGender IdentityNot on fileSexual OrientationNot on file Last Filed Vital Signs Vital SignReadingTime TakenCommentsBlood Vcnoalem783/801 10:48 AM EDT Meqfn192809/26/2024 12:38 PM SGEVbfhounkfjw45.8 ??C (98.2 ??F)09/26/2024 12:38 PM EDTRespiratory Rate--Oxygen Qqxflwxzlu22%09/26/2024 12:38 PM EDTInhaled Oxygen Concentration--Qmkesc00.7 kg (186 lb 12.8 oz)01/24/2025 10:48 AM OIHRktsed209.7 cm (5' 8 )09/26/2024 12:38 PM EDTBody Mass Index28. 12:38 PM EDT Plan of Treatment DateTypeDepartmentCare Team (Latest Contact Info)Ilxfstnjuoi22/22/2026 3:00 PM EDTProcedure Visit [facility] FLORESN [address] [place] [address] Nia Colbert PA [address] [place] [address] Health MaintenanceDue DateLast DoneCommentsInfluenza Vaccine (#1)12/04/2024 Procedures Procedure NamePriorityDate/TimeAssociated DiagnosisCommentsUS PELVIC COMPLETE W/ CYYvbhtxv16/22/2025 10:36 AM EDT PCOS (polycystic ovarian syndrome) S/P endometrial ablation Abnormal uterine bleeding (AUB) Pelvic pain in female RECURRENT VAGINITIS (HTRX)Zjmcsek6712/18/2024 4:57 PM EDT POCT URINALYSIS CUXPUPWNCmwgzqq86/15/2025 3:39 PM EDT UTI symptoms IGP,APTIMA HPV,AGE PZNQUafdejz41/15/2025 1:23 PM EDT PAP MCUDCDsiuhza84/15/2025 12:00 AM EDTfrom Last 3 Months Results * US Pelvis w/ TV (01/24/2025 [...] Dmitriy Kimball MD Authorizing ProviderResult TypeResult StatusCorey Regional Medical Center of [facility] PROCEDURESFinal Result * RECURRENT VAGINITIS (HTRX) (12/18/2024 4:57 PM EDT)ComponentValueRef RangeTest MethodAnalysis TimePerformed AtPathologist SignatureATOPOBIUM SVRAVSC025.961 - 24.689 ppm12/20/2024 7:11 AM EDTHealthTrackRx at LabPortATOPOBIUM VAGINAENot Iikeqyvc51.961 - 24.689 ppm12/20/2024 7:11 AM EDTHealthTrackRx at LabPortBVAB 2,3 (BACTERIAL VAGINOSIS ASSOCIATED BACTERIA 2, 3); MOBILUNCUS FKO710.961 - 24.689 ppm12/20/2024 7:11 AM EDTHealthTrackRx at LabPortBVAB 2,3 (BACTERIAL VAGINOSIS ASSOCIATED BACTERIA 2, 3); MOBILUNCUS SPPNot Gvvharrg64.961 - 24.689 ppm12/20/2024 7:11 AM EDTHealthTrackRx at LabRiverview HospitalCANDIDA ALBICANS, PARAPSILOSIS, CZIJYSFPHR731.000 - 30.347 ppm12/20/2024 7:11 AM EDT [facility] LabRiverview HospitalCANDIDA ALBICANS, PARAPSILOSIS, TROPICALISNot Detected 23.000 - 30.347 ppm12/20/2024 7:11 AM EDTHealthTrackRx at LabPortCANDIDA HIFEATXR816.000 - 31.618 ppm12/20/2024 7:11 AM EDTHealthTrackRx at LabPort IVAN GLABRATANot Lpjxddns67.000 - 31.618 ppm12/20/2024 7:11 AM EDT [facility] at LabPortCANDIDA SAWZIS322.000 - 30.873 ppm12/20/2024 7:11 AM EDTHealthTrackRx at LabPortCANDIDA KRUSEINot Pcbeqsnt92.000 - 30.873 ppm 12/20/2024 7:11 AM EDTHealthTrackRx at LabPortCHLAMYDIA NVNPKPTCVTP922.000 - 31.586 ppm12/20/2024 7:11 AM EDTHealthTrackRx at LabPortCHLAMYDIA TRACHOMATIS Not Izeskvtt78.000 - 31.586 ppm12/20/2024 7:11 AM EDTHealthTrackRx at LabPort GARDNERELLA EQRXGTXBA919.961 - 24.689 ppm12/20/2024 7:11 AM EDTHealthTrackRx at LabRiverview HospitalGARDNERELLA VAGINALISNot Hefjqbjp04.961 - 24.689 ppm12/20/2024 7:11 AM EDTHealthTrackRx at LabPortMEGASPHAERA (TYPES 1, 2)019.961 - 24.689 ppm 12/20/2024 7:11 AM EDTHealthTrackRx at LabPortMEGASPHAERA (TYPES 1, 2)Not Bdevjuir03.961 - 24.689 ppm12/20/2024 7:11 AM EDTHealthTrackRx at LabPort NEISSERIA EINDVAFVPII951.000 - 32.587 ppm12/20/2024 7:11 AM EDTHealthTrackRx at LabPortNEISSERIA GONORRHOEAENot Zulgsqzn22.000 - 32.587 ppm12/20/2024 7:11 AM EDTHealthTrackRx at LabPortTRICHOMONAS YPQFTDLAX646.000 - 31.995 ppm 12/20/2024 7:11 AM EDTHealthTrackRx at [facility] HospitalTRICHOMONAS VAGINALISNot Rlcolarf97.000 - 31.995 ppm12/20/2024 7:11 AM EDTHealth[facility]Rx at [facility] MYCOPLASMA CUCWCFMPPH769.961 - 24.689 ppm12/20/2024 7:11 AM EDTHealthTrackRx at [facility] HospitalMYCOPLASMA GENITALIUMNot Tvltmgei82.961 - 24.689 ppm12/20/2024 7:11 AM EDTHealthTrackRx at [facility] HospitalSpecimen (Source)Anatomical Location / LateralityCollection Method / VolumeCollection TimeReceived TimeTissue 12/18/2024 4:57 PM EDT12/20/2024 1:39 AM EDT Narrative Authorizing ProviderResult TypeResult StatusAmy Filemon PALAB BLOOD ORDERABLES Final ResultPerforming OrganizationAddressCity/State/ZIP CodePhone Number [facility] [address] [place] [address] * POCT urinalysis dipstick manually resulted (12/18/2024 3:39 PM EDT)Component ValueRef RangeTest MethodAnalysis TimePerformed AtPathologist SignatureColor, UAYellowClarity, UAClearGlucose, UANegativeNegative - 2000(110) ++++ mg/dL Bilirubin, UANegativeNegative - 4(70) +++ mg/dLKetones, UANegativeNegative - 160(16) ++++ mg/dLSpec Grav, UA1.0101 - 1.03Blood, UANegativeNegative - 50 Silas/mcLpH, UA6.05 - 9Protein, UANegativeNegative - 2000(20) ++++ mg/dL Urobilinogen, UA1.00.2 - 12 mg/dLLeukocytes, UANegativeNegative - 500+++ Estephania/mcLNitrite, UANegativeNegative - PositiveSpecimen (Source)Anatomical Location / LateralityCollection Method / VolumeCollection TimeReceived Time Urine12/18/2024 3:39 PM EDT Narrative Authorizing ProviderResult TypeResult StatusAmy Filemon PAPOINT OF CARE TEST ENTER/EDIT ORDERABLESFinal Result * IGP,APTIMA HPV,AGE GDLN (12/18/2024 1:23 PM EDT)ComponentValueRef RangeTest MethodAnalysis TimePerformed AtPathologist SignatureAGE GDLN ACOG TESTINGNote. TBHComment: ?? TESTS ? RESULT ??FLAG ??UNITS ?REF RANGE ??LAB ?? Clinician Provided Cytology Information ?? Source.............Cervix;Endocervix ?? No. of containers..01 ThinPrep Vial Age Algo ACOG Rebecca... ??21-29 ? 01 ?FLAG LEGEND: ?L-Low Normal,H-High Normal,LL-Alert Low,HH-Alert High <-Panic Low,>-Panic High,A-Abnormal,AA-Critical Abnormal Performed at: 01 =G ?[facility] ?? [address] [place] ??[phone] ?? Rosalia Harp MD, IGP, RFX APTIMA HPV ASCUNote.TBHComment: ?? TESTS ? RESULT ??FLAG ??UNITS ?REF RANGE ??LAB DIAGNOSIS: ?02 ?? NEGATIVE FOR INTRAEPITHELIAL LESION OR MALIGNANCY. Specimen adequacy: ?02 ?? Satisfactory for evaluation. ??Endocervical and/or squamous metaplastic ?? cells (endocervical component) are present. Performed by: ? 02 ?? Gildardo Chan Garage Door Opener Installer (ASCP) . ? 02 Note: ? Note ?02 ?? The Pap smear is a screening test designed to aid in the ?? detection of premalignant and malignant conditions of the ?? uterine cervix. ??It is not a diagnostic procedure and ?? should not be used as the sole means of detecting cervical ?? cancer. ??Both false-positive and false-negative reports do ?? occur. Test Methodology: ? Note ?02 ?? This liquid based ThinPrep(R) pap test was screened with ?? the use of an image guided system. . ? 02 ?? The HPV DNA reflex criteria were not met with this specimen ?? result therefore, no HPV testing was performed. ?FLAG LEGEND: ?L-Low Normal,H-High Normal,LL-Alert Low,HH-Alert High <-Panic Low,>-Panic High,A-Abnormal,AA-Critical Abnormal Performed at: 02 WB ?[facility] ?? [address] [place], [place] ??[address] ?? Rosalia Harp MD, Performed at: ??=G - [facility] [address] ??[id number] Land Measurer: Rosalia Harp MD, Phone: ??[phone] Performed at: ??WB - [facility] ??[id number] Land Measurer: Rosalia Harp MD, Phone: ??[phone] Specimen (Source)Anatomical Location / LateralityCollection Method / Volume Collection TimeReceived Time12/18/2024 1:23 PM EDT12/18/2024 9:35 PM EDT Narrative [facility] - 12/22/2024 7:08 PM EDT BRUSH-SPATULA CERVIX ENDOCERVIX Authorizing ProviderResult TypeResult StatusAmy [place] PALAB BLOOD ORDERABLES Final ResultPerforming OrganizationAddressCity/State/ZIP CodePhone Number [facility] * Pap Smear (12/18/2024 12:00 AM EDT)Specimen (Source)Anatomical Location / LateralityCollection Method / VolumeCollection TimeReceived TimeSwabCervical swab / Unknown Narrative Authorizing ProviderResult TypeResult StatusAmy Filemon PALAB CYTOLOGY ORDERABLES Final ResultPerforming OrganizationAddressCity/State/ZIP CodePhone Number EXTERNAL LAB from Last 3 Months Insurance Care Teams Team MemberRelationshipSpecialtyStart DateEnd Date Raquel Nolan MD [address] [place] [address] [facility] Raquel Nolan MD [address] [place] [address] [facility]
--- OUTSIDE RECORDS SUMMARY | 2025-02-02 12:17 | XMS_ITS | CCD ---
Author Organization [facility] CliniSyma Care Team Providers Care Registered Nurse Surgical Services Name Role Phone GIGI MITCH ALLISON Unavailable UnaCHANDANA Dey Unavailable Unavailable NO PRIMARY CARE, Unavailable Unavailable Lilliam Gonzalez Primary Care Physician Fernanda MUNROE Unavailable Raquel Nolan Primary Care Physician [phone] Unavailable Primary Care Provider Unavailhoney WITT ., DR TITUS Admitting Unavailable ALMA NOLAN Primary Care Unavailable MIRYAM ., DR TITUS Attending Unavailable IMRYAM ., DR TITUS Consulting Unavailable RAD LICEA Consulting Unavailable STEW II, KAYA Consulting Unavailable MIRYAM ., DR TITUS Attending Unavailable MIRYAM ., DR TITUS Admitting Unavailable MIRYAM ., DR TITUS Admitting Unavailable MIRYAM ., DR TITUS Attending Unavailable MIRYAM ., DR TITUS Consulting Unavailable ZIEBER, DR EVELIA Gutierrez Consulting Unavailable MIRYAM ., DR TITUS Admitting Unavailable DUBUQUE, DR BAO Painter Consulting Unavailable ALMA NOLAN Primary Care Unavailable MIRYAM ., DR TITUS Attending Unavailable MIRYAM ., DR TITUS Consulting Unavailable DO Jacinto [...] Primary Care Provider Raquel Nolan MD Unavailable RAQUEL NOLAN Attending Unavailable RAQUEL NOLAN Attending Unavailable CHERISE JAIMES Attending Unavailab NIA Merritt Attending Unavailable SHAAN WITT Attending Unavailable RAQUEL NOLAN Attending Unavailable Medications Current Medications MedicationDrug Class(es)DatesSig (Normalized)Sig (Original)acetaminophen 325 mg / HYDROcodone bitartrate 5 mg oral tablet (2 sources)Opioid AgonistStart: 23-59-6048Oahgn 325 mg-5 mg oral tablet 1 tab(s), Oral, q6hr for pain, 10 tab(s), Refill(s) 0 Start Date: 09/18/21 Status: [id number] 200 actuat albuterol 0.09 mg/actuat metered dose inhaler (10 sources)beta2-Adrenergic AgonistStart: 04-27-2023 End: 62-92-9837glbd 2 puff(s) by inhalation every four hours for wheezing albuterol HFA 90 mcg/act inhaler Indications: Acute cough Inhale 2 puffs every 4 (four) hours if needed for wheezing or shortness of breath 18 g 04/27/2023 03/22/2024 Discontinued (Therapy completed)cephalexin 500 mg oral capsule (4 sources)Cephalosporin AntibacterialStart: 16-11-1876nyyz 1 capsule by mouth every twelve hoursKeflex 500 mg Cap 500 mg = 1 cap(s), Oral, q12hr, # 14 cap(s), Refills(s) 0, Pharmacy: [facility], 175, cm, 06/16/20 13:40:00 EDT, Height/Length Dosing, 70.8, kg, 06/16/20 13:40:00 EDT, Weight Dosing Start Date: 06/16/20 Status: Ordereddextromethorphan hydrobromide 3 mg/ml / promethazine hydrochloride 1.25 mg/ml oral solution (1 source)Phenothiazine, Uncompetitive M-basgsy-Q-aspartate Receptor Antagonist, Sigma-1 AgonistStart: 03-20-2024 End: 60-95-6608fcmn 5 mL by mouth every six hours for coughdextromethorphan- promethazine 15 mg-6.25 mg/5 mL Oral Syrup 5 mL 5 mL, Oral, q6hr for cough for 5 day(s), 200 mL, Refill(s) 0, [facility], 175.6, cm, 03/20/24 7:23:00 EST, Height/Length Dosing, 80, kg, 03/20/24 7:23:00 EST, Weight Dosing Start Date: 03/20/24 Stop Date: 03/25/24 Status: Ordereddicyclomine hydrochloride 10 mg oral capsule (2 sources)AnticholinergicStart: 97-17-3754azwa 1 capsule by mouth four times daily as needed for nauseaBentyl 10 mg Cap 10 mg = 1 cap(s), Oral, QID, PRN Nausea/Vomiting, For abdominal cramping, # 16 cap(s), Refills(s) 0, Pharmacy: [facility], 177, cm, 04/15/24 21:15:00 EST, Height/Length Dosing, 83.8, kg, 04/15/24 21:15:00 EST, Weight Dosing Start Date: 04/16/24 Status: OrderedStart: 09-18-2021 End: 61-08-3870aejd 1 capsule by mouth four times dailyBentyl 10 mg Cap 10 mg = 1 cap(s), Oral, QID, X 7 day(s), # 14 cap(s), Refills(s) 0 Start Date: 09/18/21 Stop Date: 09/25/21 Status: Orderedfamotidine 40 mg oral tablet (13 sources)Histamine-2 Receptor AntagonistStart: 06-15-2024 End: 95-73-3428nfbd 1 tablet by mouth at bedtimefamotidine (Pepcid) 40 MG tablet Indications: Gastroesophageal reflux disease, unspecified whether esophagitis present Take 1 tablet (40 mg) by mouth at bedtime 90 tablet 3 06/15/2024 06/15/2025 Activeibuprofen 200 mg oral tablet (10 sources)Nonsteroidal Anti-inflammatory Drug End: 91-36-1115lwfglgxmu 200 MG tablet Take by mouth. 03/22/2024 Discontinued (Therapy completed)levonorgestrel 0.304975 mg/hr intrauterine system (4 sources)Progestin, Progestin-containing Intrauterine DeviceStart: 08-29-2019 Liletta 52 mg IUD Refills(s) 0 Start Date: 08/29/19 Status: OrderedStart: 94-66-2516Dkgfrun 52 mg IUD Refills(s) 0 Start Date: 08/29/19 Status: Ordered methocarbamol 500 mg oral tablet (1 source)Muscle RelaxantStart: 06-29-2023 End: 84-75-4822kvsw 1 tablet by mouth three times dailyRobaxin 500 mg Tab 500 mg = 1 tab(s), Oral, TID, X 3 day(s), # 9 tab(s), Refills(s) 0, Pharmacy: [facility], 175, cm, 06/29/23 19:28:00 EDT, Height/Length Dosing, 82, kg, 06/29/23 19:28:00EDT, Weight Dosing Start Date: 06/29/23 Stop Date: 07/02/23 Status: Orderednaproxen 500 mg oral tablet (2 sources)Nonsteroidal Anti-inflammatory DrugStart: 85-16-4954lvxz 1 tablet by mouth twice daily as needed for painNaprosyn 500 mg Tab 500 mg = 1 tab(s), Oral, BID, PRN for pain, # 20 tab(s), Refills(s) 0, Pharmacy: [facility], 175, cm, 06/29/23 19:28:00 EDT, Height/Length Dosing, 82, kg, 06/29/23 19:28:00 EDT, Weight Dosing Start Date: 06/29/23 Status: Orderedoseltamivir 75 mg oral capsule (2 sources)Neuraminidase InhibitorStart: 04-12-2024 End: 67-75-9967orlw 1 capsule by mouth twice dailyTamiflu 75 mg Cap 75 mg = 1 cap(s), Oral, BID, X 5 day(s), # 10 cap(s), Refills(s) 0, Pharmacy: [facility], 175.6, cm, 04/12/24 13:49:00 EST, Height/Length Dosing, 83.8, kg, 04/12/24 13:49:00 EST, Weight Dosing Start Date: 04/12/24 Stop Date: 04/17/24 Status: Orderedpantoprazole 40 mg delayed release oral tablet (13 sources)Proton Pump InhibitorStart: 06-15-2024 End: 98-10-5254oxsz 1 tablet by mouth once dailypantoprazole (ProtoNix) 40 MG EC tablet Indications: Gastroesophageal reflux disease, unspecified whether esophagitis present Take 1 tablet (40 mg) by mouth Daily Do not crush, chew, or split. 90 tablet 3 06/15/2024 06/15/2025 Activephenazopyridine hydrochloride 100 mg oral tablet (3 sources)Start: 12-18-2024 End: 57-91-4380mqed 1 tablet by mouth three times daily as needed for muscle spasmsphenazopyridine (Pyridium) 100 MG tablet Indications: UTI symptoms Take 1 tablet (100 mg) by mouth 3 (three) times a day as needed for bladder spasms for up to 3 days 10 tablet 12/18/2024 12/21/2024 ActivepredniSONE 20 mg oral tablet (2 sources)Start: 03-22-2024 End: 88-18-7774neid 2 tablets by mouth once dailypredniSONE (Deltasone) 20 MG tablet Indications: Acute cough Take 2 tablets (40 mg) by mouth Daily for 5 days 10 tablet 03/22/2024 03/27/2024 ActiveZofran ODT 4 mg Tab-Dis (6 sources)Start: 58-28-7314tugh 1 tablet by mouth every eight hours as needed for nauseaZofran ODT 4 mg Tab-Dis 4 mg = 1 tab(s), Oral, q8hr, PRN Nausea/Vomiting, # 12 tab(s), Refills(s) 0, Pharmacy: [facility], 177, cm, 04/15/24 21:15:00 EST, Height/Length Dosing, 83.8, kg, 04/15/24 21:15:00 EST, Weight Dosing Start Date: 04/16/24 Status: OrderedStart: 06-29-2023 take 1 tablet by mouth every eight hoursZofran ODT 4 mg Tab-Dis 4 mg = 1 tab(s), Oral, q8hr, # 12 tab(s), Refills(s) 0, Pharmacy: [facility], 175, cm, 06/29/23 19:28:00 EDT, Height/Length Dosing, 82, kg, 06/29/23 19:28:00 EDT, We ight Dosing Start Date: 06/29/23 Status: OrderedStart: 81-04-0750rscy 1 tablet by mouth every eight hours as needed for nauseaZofran ODT 4 mg Tab-Dis 4 mg = 1 tab(s), Oral, q8hr, PRN Nausea/Vomiting, # 20 tab(s), Refills(s) 0, Pharmacy: [facility], 175.3, cm, 02/16/23 5:18:00 EST, Height/Length Dosing, 76, kg, 02/16/23 5:18:00 EST, Weight Dosing Start Date: 02/16/23 Status: Ordered Completed/Discontinued Medications MedicationDrug Class(es)DatesSig (Normalized)Sig (Original)amoxicillin 875 mg oral tablet (2 sources)Penicillin-class Antibacterialtake 1 tablet by mouth twice daily amoxicillin (AMOXIL) 875 mg tablet Take 875 mg by mouth twice daily. 0 Active Comment on above:Take 875 mg by mouth twice daily.amoxicillin 875 mg / clavulanate 125 mg oral tablet (7 sources)Penicillin-class AntibacterialStart: 03-20-2024 End: 25-87-9645qeyq 1 tablet by mouth in the morningamoxicillin-clavulanate (Augmentin) 875-125 MG tablet Take 875 mg by mouth in the morning and 875 mg before bedtime. 03/20/2024 06/15/2024 DiscontinuedStart: 09-18-2021 End: 35-33-9021Ktjpmmznz 875 mg-125 mg Tab 1 tab(s), Oral, q12hr for 10 day(s), 20 tab(s), Refill(s) 0 Start Date:09/18/21 Stop Date: 09/28/21 Status: Ordered azithromycin 250 mg oral tablet (5 sources)Macrolide AntimicrobialStart: 03-22-2024 End: 56-23-6918fccmngbnzyml (Zithromax) 250 MG tablet Indications: Acute cough Take 2 tabs PO x 1 day then 1 tab PO daily x 4 days 6 tablet 03/22/2024 06/15/2024 DiscontinuedmetFORMIN hydrochloride 500 mg oral tablet (12 sources)BiguanideStart: 12-13-2023 End: 80-21-6152qegm 1 tablet by mouth at bedtimemetFORMIN (Glucophage) 500 MG tablet Indications: PCOS (polycystic ovarian syndrome) Take 1 tablet (500 mg) by mouth at bedtime 30 tablet 11 12/13/2023 06/15/2024 Discontinuedondansetron 4 mg oral tablet (20 sources)Serotonin-3 Receptor AntagonistStart: 12-06-2024 End: 65-26-1826zdxh 1 tablet by mouth every eight hours as needed for nausea and vomiting and nausea and nauseaondansetron (Zofran) 4 MG tablet Indications: Nausea Take 1 tablet (4 mg) by mouth every 8 (eight) hours if needed for nausea or vomiting 12 tablet 12/06/2024 01/24/2025 DiscontinuedStart: 07-26-2024 End: 89-06-3107vkaz 2 tablets by mouth every eight hours as needed for nausea and vomiting and nausea and nauseaondansetron (Zofran) 4 MG tablet Indications: Nausea Take 2 tablets (8 mg) by mouth every 8 (eight)hours if needed for nausea or vomiting 20 tablet 09/26/2024 12/06/2024 Discontinued (Reorder)Start: 04-12-2024 End: 49-57-3110nqyy 1 tablet by mouth every eight hoursondansetron 4 mg Dis Tab 4 mg = 1 tab(s), Oral, q8hr, allow tablet to dissolve on tongue, X 2 day(s), # 6 tab(s), Refills(s) 0, Pharmacy: [facility], 175.6, cm, 04/12/24 13:49:00 EST, Height/Length Dosing, 83.8, kg, 04/12/24 13:49:00 EST, Weight Dosing Start Date: 04/12/24 Stop Date: 04/14/24 Status: OrderedStart: 12-13-2023 End: 39-40-7212jgoj 1 tablet by mouth every six hours as needed for nausea and vomiting and nausea and nauseaondansetron ODT (Zofran-ODT) 4 MG disintegrating tablet Indications: Nausea Take 1 tablet (4 mg) bymouth every 6 (six) hours if needed for nausea or vomiting 30 tablet 2 12/13/2023 01/12/2024 ActiveStart: 09-21-2023 End: 37-53-3896tyju 2 tablets by mouth every eight hours as needed for nausea and vomiting and nausea and nauseaondansetron (Zofran) 4 MG tablet Indications: Nausea Take 2 tablets (8 mg) by mouth every 8 (eight)hours if needed for nausea or vomiting 20 tablet 03/22/2024 ActiveStart: 21-38-6380yfks 1 tablet by mouth every eight hours as needed for nauseaZofran 4 mg Tab 4 mg = 1 tab(s), Oral, q8hr, PRN Nausea/Vomiting, # 12 tab(s), Refills(s) 0 Start Date: 09/18/21 Status: OrderedComment on above:Take 4 mg by mouth every 8 hours as needed for nausea/vomiting.polyethylene glycol 3350 41453 mg powder for oral solution (2 sources)Osmotic LaxativeStart: 00-48-9868phqurnoeitzu glycol 3350 (MIRALAX) 17 gram/dose powder Take 17 g by mouth once daily. Dissolve dosein 4 - 8 ounces of liquid and take as directed. 507 g 5 10/10/2021 ActiveComment on above:Take 17 g by mouth once daily. Dissolve dose in 4 - 8 ounces of liquid and take as directed. Problems Active Problems Problem ClassificationProblemDateDocumented DateEpisodic/ChronicDiseases of white blood cells (2 sources)Leukocytosis; Translations: [Elevated white blood cell count, unspecified]39-89-6724AsshgmeFwhdxicqhqqmm (1 source)Endometriosis; Translations: [ENDOMETRIOSIS RT OVARY UNSPEC DEPTH] Onset: 72-54-9157Cbcuqnvnow disorders (4 sources)Gastroesophageal reflux disease; Translations: [Gastro-esophageal reflux disease without esophagitis]45-59-5348PfifskyTenaaekmlnebq symptoms and ill-defined conditions (2 sources)Urinary symptoms ; Translations: [Unspecified symptoms and signs involving the genitourinary system]15-86-3565TpqodxquFydohxyw; including migraine (4 sources)Headache; Translations: [Headache, unspecified]Onset: 06-29-2023 EpisodicImmunizations and screening for infectious disease (2 sources)Exposure to sexually transmissible disorder; Translations: [Contact with and (suspected) exposure to infections with a predominantly sexual mode of transmission]87-49-7610LgvptkedXtjphafpe (1 source)Influenza; Translations: [Influenza due to other identified influenza virus with other respiratory manifestations]Onset: 01-78-0258LqudnspgRcwqpsxud disorders (6 sources)Irregular menstruation, unspecified; Translations: [Menometrorrhagia] Onset: 24-15-7487IosjnpmTvgk disorders (20 sources)Depressive disorder; Translations: [Depression]Onset: 09-14-2022 48-12-9550NpdkoujOnenl ear and sense organ disorders (2 sources)Ear sensations - finding; Translations: [Other specified disorders of ear, bilateral]54-63-8051FtjcqiedQrpmw endocrine disorders (2 sources)Polycystic ovary syndrome; Translations: [Polycystic ovarian syndrome]89-89-1069CflhldqRgzrm female genital disorders (2 sources)Abnormal uterine bleeding; Translations: [Abnormal uterine and vaginal bleeding, unspecified]Onset: 88-50-9733YatfrbhRutia female genital disorders (1 source)Pain in female genitalia on intercourse; Translations: [Unspecified dyspareunia]03-87-1837LnuobefOzncx female genital disorders (1 source)Other specified noninflammatory disorders of vagina; Translations: [OTH SPEC NONINFLAMMATORY D/O VAGINA]Onset: 55-62-3716MtzwcnhzHbfod female genital disorders (2 sources)Vaginal discharge; Translations: [Other specified noninflammatory disorders of vagina]60-55-1134LddigvpxNiktf female genital disorders (1 source)Pain in female pelvis; Translations: [Pelvic pain in female]01-24-2025 EpisodicOther gastrointestinal disorders (2 sources)Diarrhea; Translations: [Diarrhea, unspecified]Onset: 11-17-2021 EpisodicOther gastrointestinal disorders (2 sources)Acute diarrhea; Translations: [Diarrhea, unspecified]12-06-2024 EpisodicOther lower respiratory disease (1 source)Cough; Translations: [Cough, unspecified]Onset: 21-81-1049Zvdqdjtk Other lower respiratory disease (2 sources)Cough; Translations: [Acute cough]04-50-4918ZqytssycNvset nervous system disorders (2 sources)Pins and needles; Translations: [Paresthesia of skin]09-26-2024 EpisodicOther nutritional; endocrine; and metabolic disorders (7 sources)Overweight in adulthood with body mass index of 25 or more but less than 30; Translations: [Body mass index (BMI) 27.0-27.9, adult]Onset: 04-12-2024 00-90-6380IutblheaRyunf nutritional; endocrine; and metabolic disorders (6 sources)Overweight; Translations: [Overweight]89-42-1614OsovzjroNhvyl and delivery including normal (11 sources)Normal mbnsqerso49-73-4496DltylykiHhluk upper respiratory disease (3 sources)Nasal congestion; Translations: [Nasal congestion]Onset: 04-12-2024 33-87-1332IzvedutbYcrmtla cyst (2 sources)Cyst of ovary; Translations: [Unspecified ovarian cyst, unspecified side]Onset: 66-87-2179XjpldfeiBvejjcuq codes; unclassified (1 source)Chill; Translations: [Chills (without fever)]Onset: 63-17-6762Xjpxnjyl Substance-related disorders (20 sources)Smoker; Translations: [Nicotine dependence, cigarettes, uncomplicated]Onset: 06-11-2022 Resolved: 667664-15-7662MzrlthkPlfrrmm on above:Added secondary to documentation in Social History.Added secondary to documentation in Social History.Syncope (1 source)Syncope and collapse; Translations: [Syncope and collapse]Onset: 11-94-7816Wsqwodyq Past or Other Problems Problem ClassificationProblemDateDocumented DateEpisodic/ChronicAbdominal pain (20 sources)Abdominal pain; Translations: [Unspecified abdominal pain]Onset: 24-10-8979PmktydlkZitllkkdigla of device; implant or graft (20 sources)Mechanical complication of intrauterine contraceptive device; Translations: [Other mechanical complication of intrauterine contraceptive device, initial encounter]Onset: 806294-81-4628FvaondxaQkhinnuxhaovo and procreative management (20 sources)Encounter for sterilization; Translations: [Sterilization requested] Onset: 06-24-2022 Resolved: 54-87-6602SodynpefVukzvt and vomiting (20 sources)Vomiting; Translations: [Vomiting, unspecified]Onset: 11-17-2021 EpisodicNoninfectious gastroenteritis (20 sources)Noninfectious enteritis; Translations: [Noninfective gastroenteritis and colitis, unspecified]Onset: 93-66-3349RqkspcpeVyhtj female genital disorders (20 sources)Cervical intraepithelial neoplasia grade 2; Translations: [Moderate cervical dysplasia]Onset: 706045-51-0061PkphvepiFbgmf female genital disorders (20 sources)Vaginal odor; Translations: [Other specified noninflammatory disorders of vagina]Onset: 791783-93-6339LzaimqjhPmuqu female genital disorders (1 source)Pelvic and perineal pain; Translations: [Pelvic and perineal pain] Onset: 544102-31-1451FjcetuocDbqcv gastrointestinal disorders (20 sources)Constipation; Translations: [Constipation, unspecified]Onset: 25-10-8313KpqmkhbtDovqm upper respiratory infections (20 sources)Pharyngitis; Translations: [Acute pharyngitis, unspecified]Onset: 976521-46-9874QdguflyyTxpcun media and related conditions (20 sources)Acute suppurative otitis media without spontaneous rupture of ear drum; Translations: [Acute suppurative otitis media without spontaneous rupture of ear drum, left ear]Onset: 630603-90-8138YauiebdsAjcudpqe codes; unclassified (20 sources)History of endometrial ablation; Translations: [Other specified postprocedural states]Onset: 504378-44-3372LnoqxtxeRvbqngdhqdxw (20 sources)PregnancyOnset: 09-11-2017 Resolved: Results Test NameValueInterpretationReference RangeFacilityUS PELVIC COMPLETE W/ TVon 67-61-2537DF PELVIC COMPLETE W/ TVFINDINGS: Uterus 8.7 x 4.7 x 6.1 cm Endometrium 6 mm Right Ovary 3.9 x 1.8 x 2.9 cm Left Ovary 4.8 x 2.8 x 3.2 cm (cyst) Mild retroversion and retroflexion uterine fundus. Normal myometrium. 6 mm endometrium. No endometrial mass or cystic changes. No pelvic fluid. Both ovaries contain multiple subcentimeter follicles. Left ovary also contains a 2.7 x 2.4 x 2.2 benign cyst. IMPRESSION: 1. Follicular ovaries, overall morphology can be consistent with PCOS. 2. Normal endometrium. TRANSCRIBED BY: ELECTRONICALLY SIGNED BY: Norma Killian AvailableComment on above:Order Comment: US PELVIS-TRANSVAG IF INDICATED Patient's last menstrual period was 12/09/2024.IGP,APTIMA HPV,AGE GDLNon [id number] GDLN ACOG TESTINGNote.NOMS HealthcareComment on above:TESTS RESULT FLAG UNITS REF RANGE LAB Clinician Provided Cytology Information Source.............Cervix;Endocervix No. of containers..01 ThinPrep Vial Age Ricardo ALCAZAR Rebecca... -03 05 FLAG LEGEND: L-Low Normal,H-High Normal,LL-Alert Low,HH-Alert High <-Panic Low,>-Panic High,A-Abnormal,AA-Critical Abnormal Performed at: 01 =G [address] [address] Rosalia Harp MD, IGP, RFX APTIMA HPV ASCUNote.NOMS HealthcareComment on above:TESTS RESULT FLAG UNITS REF RANGE LAB DIAGNOSIS: 02 NEGATIVE FOR INTRAEPITHELIAL LESION OR MALIGNANCY. Specimen adequacy: 02 Satisfactory for evaluation. Endocervical and/or squamous metaplastic cells (endocervical component) are present. Performed by: 02 Gildardo Chan Digital Performance Analyst ([facility]) . 02 Note: Note 02 [...] Low,>-Panic High,A-Abnormal,AA-Critical Abnormal Performed at: 02 [facility] [address] [place] [address] Rosalia Harp MD, Performed at: =G - [facility] [address], [place] [id number] Extrusion Technician: Rosalia Harp MD, Phone: [phone] Performed at: [address] [id number] Extrusion Technician: Rosalia Harp MD, Phone: [phone] BRUSH-SPATULA CERVIX ENDOCERVIX CLINISYNCNOMS HealthcareRECURRENT VAGINITIS (HTRX)on 13-42-8432QZHYKEDKP VAGINAE 0NOMS HealthcareATOPOBIUM VAGINAENot detectedNOMS HealthcareBVAB 2,3 (BACTERIAL VAGINOSIS ASSOCIATED BACTERIA 2, 3); MOBILUNCUS [id number] HealthcareBVAB 2,3 (BACTERIAL VAGINOSIS ASSOCIATED BACTERIA 2, 3); MOBILUNCUS SPPNot detectedNOMS HealthcareCANDIDA ALBICANS, PARAPSILOSIS, [id number] HealthcareCANDIDA ALBICANS, PARAPSILOSIS, TROPICALISNot detectedNOMS HealthcareCANDIDA GLABRATA0 NOMS HealthcareCANDIDA GLABRATANot detectedNOMS HealthcareCANDIDA MUSPWQ2SBUE HealthcareCANDIDA KRUSEINot detectedNOMS HealthcareCHLAMYDIA PJJHCHHGNES6CUXG HealthcareCHLAMYDIA TRACHOMATISNot detectedNOMS HealthcareGARDNERELLA VAGINALIS0 NOMS HealthcareGARDNERELLA VAGINALISNot detectedNOMS HealthcareMEGASPHAERA (TYPES 1, 2)0NOMS HealthcareMEGASPHAERA (TYPES 1, 2)Not detectedNOMS Healthcare MYCOPLASMA [id number] HealthcareMYCOPLASMA GENITALIUMNot detectedNOMS HealthcareNEISSERIA [id number] HealthcareNEISSERIA GONORRHOEAENot detected NOMS HealthcareTRICHOMONAS [id number] HealthcareTRICHOMONAS VAGINALISNot detectedNOMS HealthcareNOMS HealthcareUrinalysis macro (dipstick) panel (U)on 94-22-8533Dydbszyhh, UANegativeNegative - 4(70) +++ mg/dLNOMS HealthcareBlood, UANegativeNegative - 50 Silas/mcLNOMS HealthcareClarity, UAClearNOMS Healthcare Color, UAYellowNOMS HealthcareGlucose, UANegativeNegative - 2000(110) ++++ mg/dL N[facility]S HealthcareInterpretation and review of laboratory resultsNormalNOMS HealthcareKetones, UANegativeNegative - 160(16) ++++ mg/dLNOMS Healthcare Leukocytes, UANegativeNegative - 500+++ Estephania/mcLNOMS HealthcareNitrite, UA NegativeNegative - PositiveNOMS HealthcarepH, UA65 - 9NOMS HealthcareProtein, UA NegativeNegative - 1999(20) ++++ mg/dLNOMS HealthcareSpec Grav, UA1.011 - 1.03 NOMS HealthcareUrobilinogen, UA1.00.2 - 12 mg/dLNOVA HealthcareNOMS HealthcareED Note-Physicianon [id number] Note-PhysicianED Note-Physician Basic Information Time Seen: Heri Lazcano [...] was encouraged to return to the ED ifsymptoms worsen or change. Assessment/Plan Diarrhea, unspecified (R19.7: [...] TID, # 15 tab(s), Refills(s) 0, Pharmacy: [facility], 177, cm, 06/11/24 9:05:00 EDT, Height/Length Dosing, [...] days 06/14/[address] [place] [address]- Business (1) Additional Instructions: Patient Education Viral [...] made to ensure accuracy, however, inadvertently computerized cartoon artist mistakes may be present. Appropriate healthcare PPE [...] in household: No. Smoker in household: No. Injuries/Abuse/Neglect in household: No. Feels unsafe at home: No. Safe place to go: Yes. Agency(s)/Others notified: No. Family/Friends availablefor suppo (more content not included)...[facility] WestComment on above:Result Comment: Electronically Signed By: Heri Lazcano PA-C\.br\Date and Time Signed: 06/11/2510:45 EDT\.br\Electronically Co-Signed By: Elver Gonzales MD\.br\Date and Time Co-Signed: 06/18/24 00:53 EDTCBC (INCLUDES DIFF/PLT)on 23-68-8573Dbgpkdrpy (Bld) [#/Vol]0.043 10*3/uLNormal0-200[facility] Comment on above:Performed By: #### [id number] #### [facility] [address] [place] [address], [address] [place] [id number] [employer]: Nima Dong MDBasophils/100 WBC (Bld)0.5 %NormalQuest DiagnosticsComment on above:Performed By: #### 6399 #### [facility] of [address], [address] [place] [address] [employer]: Nima Dong MDEosinophils (Bld) [#/Vol]0.068 10*3/uLNormal 15-500Quest DiagnosticsComment on above:Performed By: #### 6399 #### [facility] of [address], [address] [place] [address] [employer]: Nima Dong MDEosinophils/100 WBC (Bld)0.8 %NormalQuest DiagnosticsComment on above:Performed By: #### 6399 #### [facility] of [address] [address], [address] [place] [address] [employer]: Nima Dong MDErythrocyte distribution width (RBC) [Ratio] 12.1 %Pklbzi91.0-15.0Quest DiagnosticsComment on above:Performed By: #### [id number] #### [facility] of [address], [address] [place] [address] [employer]: Nima Dong MDHematocrit (Bld) [Volume fraction]41.2 %Normal 35.0-45.0Quest DiagnosticsComment on above:Performed By: #### [id number] #### [facility] of [address], [address] [place] [address] [employer]: Nima Dong MDHemoglobin (Bld) [Mass/Vol]13.9 g/dLNormal 11.7-15.5Quest DiagnosticsComment on above:Performed By: #### [id number] #### [facility] of [address], [address] [place] [address] [employer]: Nima Dong MDLymphocytes (Bld) [#/Vol]2.788 10*3/uLNormal 850-3900Quest DiagnosticsComment on above:Performed By: #### [id number] #### [facility] of [address], [address] [place] [address] [employer]: Nima Dong MDLymphocytes/100 WBC (Bld)32.8 %NormalQuest DiagnosticsComment on above:Performed By: #### [id number] #### [facility] of [address], [address] [place] [address] [employer]: Nima Dong MDMCH (RBC) [Entitic mass]31.5 ofFtkefw93.0-33.0 Quest DiagnosticsComment on above:Performed By: #### [id number] #### [facility] of [address], [address] [place] [address] [employer]: Nima SPARKSCHC (RBC) [Mass/Vol]33.7 g/bYOhfmtz39.0-36.0 Quest DiagnosticsComment on above:Result Comment: For adults, a slight decrease in the calculated MCHC value (in the range of 30 to 32 g/dL) is most likely not clinically significant; however, it should be interpreted with caution in correlation with other red cell parameters and the patient's clinical condition.Performed By: #### [id number] #### [facility] of [address], [address] [place] [address] [employer]: Nima Dong MDMCV (RBC) [Entitic vol]93.4 sMGxcdxb48.0-100.0 Quest DiagnosticsComment on above:Performed By: #### [id number] #### [facility] of [address], [address] [place] [address] [employer]: Nima Dong MDMonocytes (Bld) [#/Vol]0.502 10*3/uLNormal 200-950Quest DiagnosticsComment on above:Performed By: #### [id number] #### [facility] of [address], [address] [place] [address] [employer]: Nima Dong MDMonocytes/100 WBC (Bld)5.9 %NormalQuest DiagnosticsComment on above:Performed By: #### [id number] #### [facility] of [address], [address] [address] [employer]: Nima Dong MDNeutrophils (Bld) [#/Vol]5.1 10*3/uLNormal 1500-7800Quest DiagnosticsComment on above:Performed By: #### [id number] #### [facility] of [place] [address] [address] , [address] [place] [address] [employer]: Nima Youssefophils/100 WBC (Bld)60 %NormalQuest DiagnosticsComment on above:Performed By: #### [id number] #### [facility] of [place] [address] [address] , [address] [place] [address] [employer]: Nima Dong MDPlatelet mean volume (Bld) [Entitic vol]10.8 fLNormal7.5-12.5Quest DiagnosticsComment on above:Performed By: #### [id number] #### [facility] of [place] [address] [address] , [address] [place] [address] [employer]: Nima Dong MDPlatelets (Bld) [#/Vol]280 10*3/uLNormal 140-400Quest DiagnosticsComment on above:Performed By: #### [id number] #### [facility] of [place] [address] [address] , [address] [place] [address] [employer]: Nima Dong MDRBC (Bld) [#/Vol]4.41 10*6/uLNormal3.80-5.10 Quest DiagnosticsComment on above:Performed By: #### [id number] #### [facility] of [place] [address] [address] , [address] [place] [address] [employer]: Nima Dong MDWBC (Bld) [#/Vol]8.5 10*3/uLNormal3.8-10.8 Quest DiagnosticsComment on above:Performed By: #### [id number] #### [facility] of [place] [address] [address] , [address] [place] [address] [employer]: Nima Pride 93-37-0905Chljw gap [Moles/Vol]12 mmol/L Normal6-16[facility]len[facility] HospitalComment on above:Performed By: #### [id number] #### [facility] [address], [place] [address]Uiispeu [Mass/Vol]10.0 mg/dLNormal8.9-11.1FMercy Memorial HospitalComment on above:Performed By: #### [id number] #### [facility] [address], [place] [address]Bajbnlbg [Moles/Vol]105 mmol/ZPnykys282-860QclwzmOhiohealth O'Bleness HospitalComment on above:Performed By: #### [id number] #### [facility] [address], [place] [address]QA2 [Moles/Vol]25 mmol/TKfwoif46-68GfbfxoOhiohealth O'Bleness Hospital Comment on above:Performed By: #### [id number] #### [facility] [address], [place] [address]Ivtuuwppgt [Mass/Vol]0.6 mg/dLNormal0.5-1.3FMercy Memorial HospitalComment on above:Performed By: #### [id number] #### [facility] [address], [place] [address]Iuifgli [Mass/Vol]117 mg/hIMmzkyh19-828KiolgzOhiohealth O'Bleness HospitalComment on above:Performed By: #### [id number] #### [facility] [address], [place] [address]Zulebszys [Moles/Vol]4.2 mmol/LNormal3.5-5.3FMercy Memorial HospitalComment on above:Performed By: #### [id number] #### [facility] [address], [place] [address]Souiqv [Moles/Vol]138 mmol/DFmkbhh138-674UbmvoxOhiohealth O'Bleness HospitalComment on above:Performed By: #### [id number] #### [facility] [address], [place] [address]Nyvy nitrogen [Mass/Vol]15 mg/dLNormal5-21Ohio[facility] O'Bleness HospitalComment on above:Performed By: #### [id number] #### [facility] [address] [place] [address] 180[address]Nynb nitrogen/Creatinine [Mass ratio]25 No UqknfWxvm63-86XlnaweOhiohealth O'Bleness HospitalComment on above:Performed By: #### [id number] #### [facility] [address] [place] [address]OQA w/ Auto Diffon 50-34-8387Phlunoddm/100 WBC (Bld)0.1 %Normal 0.0-2.0[facility] O'Bleness HospitalComment on above:Performed By: #### [id number] #### [facility] [address] [place] [address]Rpurmfzho/Leukocytes Auto (Bld) [Pure # fraction]0.0 E9/LNormal 0.0-0.2FMercy Memorial HospitalComment on above:Performed By: #### [id number] #### [facility] [address] [place] [address] 05005Sdsqvjccgas (Bld) [#/Vol]0.1 E9/LNormal0.0-0.5FMercy Memorial HospitalComment on above:Performed By: #### [id number] #### [facility] [address] [place] [address] 61965Chfjafdqwab/100 WBC (Bld)0.4 %Normal0.0-8.0[facility]leness HospitalComment on above:Performed By: #### [id number] #### [facility] [address] [place] [address] 98[address]Mrvtofedykh distribution width (RBC) [Ratio]13.5 %Normal 10.9-14.2FMercy Memorial HospitalComment on above:Performed By: #### [id number] #### [facility] [address] [place] [address] 364[address]Oofbdexnzy (Bld) [Volume fraction]44.1 %Vvgmpb86.0-46.0[facility]leness HospitalComment on above:Performed By: #### [id number] #### [facility] [address] [place] [address] 38624Vuwchlvydu (Bld) [Mass/Vol]15.1 g/eXIxvork00.0-16.0[facility]leness HospitalComment on above:Performed By: #### [id number] #### [facility] [address] [place] [address] 313[address]Slwbqeqzpim (Bld) [#/Vol]1.1 E9/LNormal1.0-4.0[facility]leness HospitalComment on above:Performed By: #### [id number] #### [facility] [address] [place] [address] 413[address]Qcokedbfjfd/100 WBC (Bld)7.4 %Low14.0-50.0[facility]leness HospitalComment on above:Performed By: #### [id number] #### [facility] [address] [place] [address] 34598URZ (RBC) [Entitic mass]31.8 meUzzxgz66.0-34.0[facility]len[facility] HospitalComment on above:Performed By: #### [id number] #### [facility] [address] [place] [address] 08328TVTI (RBC) [Mass/Vol]34.2 g/oQEqcfyr48.4-36.0[facility]len[facility] HospitalComment on above:Performed By: #### [id number] #### [facility] [address] [place] [address] 00748QCX (RBC) [Entitic vol]93.0 yIKvykan03.0-100.0[facility]leness HospitalComment on above:Performed By: #### [id number] #### [facility] [address] [place] [address] 879[address]Oomemxizb (Bld) [#/Vol]0.4 E9/LNormal0.2-1.0[facility]leness HospitalComment on above:Performed By: #### [id number] #### [facility] [address] [place] [address] 004[address]Qzrkacaoihq (Bld) [#/Vol]13.1 E9/LHigh2.0-7.5FMercy Memorial HospitalComment on above:Performed By: #### [id number] #### [facility] [address] [place] [address] 97809Jsfhumytjcw/100 WBC (Bld)89.6 %High36.0-75.0[facility]len[facility] HospitalComment on above:Performed By: #### [id number] #### [facility] [address] [place] [address] 640[address]Wwzmbbqd mean volume (Bld) [Entitic vol]8.6 fLNormal6.4-10.8 [facility]len[facility] HospitalComment on above:Performed By: #### [id number] #### [facility] [address] [place] [address] 872[address]Ynldxfzdd (Bld) [#/Vol]269.0 E9/LRpvbkx754.0-500.0[facility] HospitalComment on above:Performed By: #### [id number] #### [facility] [address] [place] [address] 41186RCZ (Bld) [#/Vol]4.7 E12/LNormal4.3-5.9[facility]len[facility] HospitalComment on above:Performed By: #### [id number] #### [facility] [address] [place] [address] 882[address]LKM corrected for nucl RBC Auto (Bld) [#/Vol]14.7 E9/LHigh 4.0-11.0[facility]leness HospitalComment on above:Performed By: #### [id number] #### [facility] [address] [place] [address] 40125ZP Clinical Summaryon [id number] Clinical SummaryED Clinical Summary [address] [address] ED Clinical Summary Person Information Name: SOCORRO JOSEPH Alena/[facility] [place] Age: 23 Years : 2000 Sex: Female Language: Nigerien PCP: Raquel Nolan MD Marital Status: Single [...] 06/11/2024 11:55:54 06/11/2024 11:55:54 06/11/2024 11:55:54 ADDRESS: [address] [place] [id number] PHYS DOC NOTES: MEDICAL INFORMATION: Prescriptions Given: New Medications [facility], [address] [place], [place] [id number], [phone] promethazine (promethazine 25 mg Tab) 1 Tablets [...] Address: When: Raquel [address] [place], [place] [id number] Business (1) In 3 days 06/14/2024 DIAGNOSIS: Diarrhea, unspecified; Nausea vomiting and diarrheaNormalFisher Jo Daviess Medical CenterED Patient Summaryon [id number] Patient SummaryED Patient Summary [address] [address] Patient Discharge Instructions Person Information Name: SOCORRO JOSEPH Age: 23 Years Arrival Date: 06/11/2024 08:54:52 Discharge Diagnosis: Diarrhea, unspecified; Nausea vomiting and diarrhea Primary Care Physician: Raquel Nolan MD Provider Information Primary Provider: Elver Gonzales MD [facility] Rn:Heri Lazcano PA-C The exam and treatment you received in the Emergency Department were for an urgent problem and are not intended as complete care. It is important that you follow up with a doctor, nurse practitioner,or physician???s admin assistant for ongoing care. If your symptoms become worse or you do not improve asexpected and you are unable to reach your usual health care provider, you should return to the Emergency Department. We are available 24 hours a day. SOCORRO JOSEPH has been given the following list of patient education materials, prescriptions and follow-up instructions: Follow-up Instructions: With: Address: When: Raquel [place] [address] Business () In 3 days 06/14/2024 In the event that this physician does not participate in your insurance network, please consult with your insurance company to find a nearby participating provider. Patient Education Materials: Viral Gastroenteritis, Adult A MESSAGE TO ALL PATIENTS REGARDING OPIOIDS PRESCRIPTION OPIOIDS: WHAT YOU NEED TO KNOW Prescription opioids can be used to help relieve rbaxeczg-mi-qebaou pain and are often prescribed following a [...] guidance from the Food and Drug Administration (www.fda.gov/Drugs/ResourcesForYou). ??? Visit www.cdc.gov/drugoverdose to learn about the risks of opioids abuse and overdose. ??? If you believe you may be struggling with addiction, tell (more content not included)...NormalOhiohealth O'Bleness HospitalHep Func Panelon 16-91-9555Htbqolh [Mass/Vol]4.9 g/dLNormal3.3-5.0[facility]len[facility] HospitalComment on above: Performed By: #### [id number] #### [facility] [address], [place] [address]Onktwtm/Globulin (S) [Mass conc ratio]1.0Prngiv6.1-2.2FMercy Memorial HospitalComment on above:Performed By: #### [id number] #### [facility] [address], [place] [address]OJO [Catalytic activity/Vol]91 Int._Unit/AVbpszq40-33BcjfmrOhiohealth O'Bleness HospitalComment on above:Performed By: #### [id number] #### [facility] [address], [place] [address]XGJ No additional P-5'-P [Catalytic activity/Vol]14 Int._Unit/L Normal6-46[facility]'Bleness HospitalComment on above:Performed By: #### [id number] #### [facility] [address], [place] [address]XVM [Catalytic activity/Vol]14 Int._Unit/LNormal5-43[facility]leness HospitalComment on above:Performed By: #### [id number] #### [facility] [address], [place] [address]Wxnoubkvt [Mass/Vol]1.0 mg/dLNormal0.0-1.1FMercy Memorial HospitalComment on above:Performed By: #### [id number] #### [facility] [address], [place] [address]Wxaapplfk.direct [Mass/Vol]0.1 mg/dLNormal0.0-0.4FMercy Memorial HospitalComment on above:Performed By: #### [id number] #### [facility] [address] [place] [address]Hbsnalnuf.indirect [Mass or moles/Vol]0.9 mg/dLNormal0.1-0.9 [facility]leness HospitalComment on above:Performed By: #### [id number] #### [facility] [address] [place] [address]Sigyggcw (S) [Mass/Vol]2.7 g/dLNormal1.4-4.0[facility]leness HospitalComment on above:Performed By: #### [id number] #### [facility] [address] [place] [address]13[address]Mgmhzqg [Mass/Vol]7.6 g/dLNormal6.0-7.8[facility]Bleness HospitalComment on above:Performed By: #### [id number] #### [facility] [address] [place] [address] 541[address]Ipbxdc Levelon 70-16-1129Qtdusw [Catalytic activity/Vol]6 U/L Rgn68-29NitflkOhiohealth O'Bleness HospitalComment on above:Performed By: #### [id number] #### [facility] [address] [place] [address] 965[address]tFBKgu 28-99-5114mMXD709 mL/min/1.73 m1Glxxtj>=59Ohio[facility] O'Bleness HospitalComment on above:Performed By: #### [id number] #### [facility] [address] [place] [address] 00583CV Abdomen/Pelvis w/ Contraston 27-75-9628KX Abdomen/Pelvis w/ ContrastExam Date/Time: 04/15/2024 23:15 EST Reason for Exam: [...] lymph nodes. Vasculature: No aneurysm or dissection. Mesentery/peritoneum/retroperitoneum: No ascites, organized fluid collection, inflammatory changes, [...] Contrast: Isovue 300 Contrast amount in ml's: 100NormalFisher [facility] Hospital CenterED Clinical Summary on [id number] Clinical SummaryED Clinical Summary [address] [address] ED Clinical Summary Person Information Name: SOCORRO JOSEPH Alena/[facility] Age: 23 Years : 2000 Sex: Female Language: Nigerien PCP: Raquel Nolan MD Marital Status: Single [...] 04/16/2024 02:43:08 04/16/2024 02:43:08 04/16/2024 02:43:08 ADDRESS: [address] [place] [phone] PHYS DOC NOTES: MEDICAL INFORMATION: Prescriptions Given: New Medications [facility], [address] [place] [id number], [phone] dicyclomine (Bentyl 10 mg Cap) 1 Capsules [...] Abdominal Pain, Adult Follow up: With: Address: Mario: [place] [address] Business (1) In 3 days 04/19/2024 Comments: [...] Abdominal pain, acute, epigastric; N&V (nausea and vomiting)DoloresYonas Stacy Medical CenterED Note-Physicianon [id number] Note-PhysicianED Note-Physician Basic Information Time Seen: José DE LA ROSA Narinder PennyElizabeth 04/15/2024 21:51 Chief Complaint dx with influenza [...] began to have severe epigastric pain. She deniespregnancy. Review of Systems A 10 point review [...] PRN Nausea/Vomiting, For abdominal cramping, # 16 cap(s),Refills(s) 0, Pharmacy: [facility], 177, cm, 04/15/24 21:15:00 EST, Height/Length Dosing, 83.8, kg, 04/15/24 21:15:00 EST, Weight Dosing dicyclomine, 20 mg = 1 tab(s), Tab, Oral, Once, Stop date 04/16/24 2:15:00 EST, STAT, Start date 04/16/24 2:15:00 EST, 04/16/24 2:15:00 EST famotidine, 20 mg = 2 mL, Soln-IV, IV Push, Once, Stop date 04/15/24 22:42:00 EST, STAT, Start date04/15/24 22:42:00 EST, 04/15/24 22:42:00 EST ketorolac, 15 mg = 1 mL, Injection, IV Push, Once, Stop date 04/15/24 22:41:00 EST, STAT, Start date 04/15/24 22:41:00 EST, 04/15/24 22:41:00 EST ondansetron, 4 mg = 1 tab(s), Oral, q8hr, PRN Nausea/Vomiting, # 12 tab(s), Refills(s) 0, Pharmacy:[facility], 177, cm, 04/15/24 21:15:00 EST, Height/Length Dosing, 83.8, kg, 04/15/24 21:15:00 EST, Weight Dosing ondansetron, 4 mg = 2 mL, Injection, IV Push, Once, Stop date 04/15/24 22:41:00 EST, STAT, Start date 04/15/24 22:41:00 EST, 04/15/24 22:41:00 EST ondansetron, 4 mg = 1 tab(s), Tab-Dis, Oral, Once, Stop date 04/16/24 2:15:00 EST, STAT, Start date04/16/24 2:15:00 EST, 04/16/24 2:15:00 EST promethazine 25 [...] 4 mg Dis Tab, 4 mg, Oral kyvcfg87Gfattxgmq [F] 25 mg + Sodium Chloride 0.9% IV Lorie 50 mL [F] 50 mL, IV Piggyback Zofran 4 mg/2 mL Injection, 4 mg, IV Push Disposition Plan Patient Discharge Condition Stable Discharge Dispo (more content not included)...[facility] Comment on above:Result Comment: Electronically Signed By: Narinder Kumar DO\.br\Date and Time Signed: 04/16/24 04:28 ESTED Patient Summaryon [id number] Patient SummaryED Patient Summary [address] [address] Patient Discharge Instructions Person Information Name: SOCORRO JOSEPH Age: 23 Years Arrival Date: 04/15/2024 20:32:57 Discharge Diagnosis: Abdominal pain, acute, epigastric; N&V (nausea and vomiting) Primary Care Physician: Raquel Nolan MD Provider Information Primary Provider: Narinder Kumar DO [facility] Rn:None The exam and treatment you received in the Emergency Department were for an urgent problem and are not intended as complete care. It is important that you follow up with a doctor, nurse practitioner,or physician???s admin assistant for ongoing care. If your symptoms become worse or you do not improve asexpected and you are unable to reach your usual health care provider, you should return to the Emergency Department. We are available 24 hours a day. SOCORRO JOSEPH has been given the following list of patient education materials, prescriptions and follow-up instructions: Follow-up Instructions: With: Address: When: Ra[address] [place] [address] Business () In 3 days 04/19/2024 Comments: Call the [...] opioids can be used to help relieve vvqwqsqc-rh-vonyrc pain and are often prescribed following a [...] opioids. o Never use (more content not included)...NormalNor[facility] w/ Auto Diffon 52-79-1122Mbzpyknox/100 WBC (Bld)0.2 %Normal0.0-2.0[facility] HospitalComment on above:Performed By: #### [id number] #### [facility] [address] [place] [address] 987[address]Jttkphlkq/Leukocytes Auto (Bld) [Pure # fraction]0.0 E9/LNormal 0.0-0.2FMercy Memorial HospitalComment on above:Performed By: #### [id number] #### [facility] [address] [place] [address] 47790Qpuffktexzm (Bld) [#/Vol]0.1 E9/LNormal0.0-0.5FMercy Memorial HospitalComment on above:Performed By: #### [id number] #### [facility] [address] [place] [address] 25849Yjbsswaldiu/100 WBC (Bld)1.0 %Normal0.0-8.0[facility]len[facility] HospitalComment on above:Performed By: #### [id number] #### [facility] [address] [place] [address] 13276Wirmvvocuhp distribution width (RBC) [Ratio]13.1 %Normal 10.9-14.2FMercy Memorial HospitalComment on above:Performed By: #### [id number] #### [facility] [address] [place] [address] 23408Rvrdyginhi (Bld) [Volume fraction]39.0 %Auvzzs59.0-46.0[facility]leness HospitalComment on above:Performed By: #### [id number] #### [facility] [address] [place] [address] 56672Xunzyelhkm (Bld) [Mass/Vol]13.4 g/aKCfxivp75.0-16.0[facility]leness HospitalComment on above:Performed By: #### [id number] #### [facility] [address] [place] [address] 05029Czsfrewpkjz (Bld) [#/Vol]2.9 E9/LNormal1.0-4.0[facility]leness HospitalComment on above:Performed By: #### [id number] #### [facility] [address] [place] [address] 98058Ocbgfpoeiyl/100 WBC (Bld)28.0 %Jabpth10.0-50.0[facility]leness HospitalComment on above:Performed By: #### [id number] #### [facility] [address] [place] [address] 33964BXN (RBC) [Entitic mass]31.8 moIcqmbx72.0-34.0[facility]leness HospitalComment on above:Performed By: #### [id number] #### [facility] [address] [place] [address] 25468VPSL (RBC) [Mass/Vol]34.3 g/sIGcondz77.4-36.0[facility]leness HospitalComment on above:Performed By: #### [id number] #### [facility] [address] [place] [address] 76188CMY (RBC) [Entitic vol]92.9 bWSeucoc80.0-100.0[facility]len[facility] HospitalComment on above:Performed By: #### [id number] #### [facility] [address] [place] [address] 70502Vbvqzclrk (Bld) [#/Vol]0.5 E9/LNormal0.2-1.0[facility] HospitalComment on above:Performed By: #### [id number] #### [facility] [address], [place] [address]Zpimhuididv (Bld) [#/Vol]6.9 E9/LNormal2.0-7.5FMercy Memorial HospitalComment on above:Performed By: #### [id number] #### [facility] [address] [place] [address] 67008Dcgllrviojj/100 WBC (Bld)66.1 %Ayvocv34.0-75.0[facility]leness HospitalComment on above:Performed By: #### [id number] #### [facility] [address], [place] [address]Gqvnvcsv mean volume (Bld) [Entitic vol]8.2 fLNormal6.4-10.8 [facility]len[facility] HospitalComment on above:Performed By: #### [id number] #### [facility] [address] [place] [address] 853[address]Boexdybvz (Bld) [#/Vol]214.0 E9/ZHerped022.0-500.0[facility]leness HospitalComment on above:Performed By: #### [id number] #### [facility] [address] [place] [address] 01302TVJ (Bld) [#/Vol]4.2 E12/LLow4.3-5.9[facility] Comment on above:Performed By: #### [id number] #### [facility] [address] [place] [address] 26901ECF corrected for nucl RBC Auto (Bld) [#/Vol]10.5 E9/LNormal 4.0-11.0[facility]leness HospitalComment on above:Performed By: #### [id number] #### [facility] [address] [place] [address] 31911LJCUZXGVNVnceicg By: Case Aponte on 49-07-5832Xgnaqfz [Mass/Vol]4.4 g/dLNormal3.3 - 5.0 gm/dLRemisol ChemAlbumin/Globulin [Mass ratio] 2.0 {ratio}Normal1.1 - 2.2Remisol ChemALP [Catalytic activity/Vol]78 [iU]/d Uwuvzo36 - 98 Int._Unit/LRemisol ChemALT No additional P-5'-P [Catalytic activity/Vol]24 [iU]/dNormal6 - 46 Int._Unit/LRemisol ChemAnion gap [Moles/Vol] 10 mmol/LNormal6 - 16 mEq/LRemisol ChemAST [Catalytic activity/Vol]16 [iU]/d Normal5 - 43 Int._Unit/LRemisol ChemBilirubin [Mass/Vol]0.4 mg/dLNormal0.0 - 1.1 mg/dLRemisol ChemCalcium [Mass/Vol]8.8 mg/dLLow8.9 - 11.1 mg/dLRemisol Chem Chloride [Moles/Vol]106 mmol/CSfciio888 - 111 mmol/LRemisol ChemCO2 [Moles/Vol] 27 mmol/FCtkdcm38 - 31 mmol/LRemisol ChemCreatinine [Mass/Vol]0.7 mg/dLNormal0.5 - 1.3 mg/dLRemisol GiuavZJT674 mL/min/1.73 j1Zktzhw>=59mL/min/1.73 z0Tjjhbqz ChemGlobulin (S) [Mass/Vol]2.2 g/dLNormal1.4 - 4.0 gm/dLRemisol ChemGlucose [Mass/Vol]94 mg/nLEnnlxq94 - 199 mg/dLRemisol ChemLipase [Catalytic activity/Vol]8 U/LLow13 - 58 unit/LRemisol ChemPotassium [Moles/Vol]3.5 mmol/L Normal3.5 - 5.3 mmol/LRemisol ChemProtein [Mass/Vol]6.6 g/dLNormal6.0 - 7.8 gm/dLRemisol ChemSodium [Moles/Vol]139 mmol/YOesehv125 - 145 mmol/LRemisol Chem Urea nitrogen [Mass/Vol]9 mg/dLNormal5 - 21 mg/dLRemisol ChemUrea nitrogen/Creatinine [Mass ratio]13 mg/wcBtwzgj74 - 20Remisol ChemCMPon 38-30-2289Yrhgrkr [Mass/Vol]4.4 g/dLNormal3.3-5.0[facility] Comment on above:Performed By: #### [id number] #### [facility] [address] [place] [address] 93282Vsmlqea/Globulin (S) [Mass conc ratio]2.4Fbfokb9.1-2.2FMercy Memorial HospitalComment on above:Performed By: #### [id number] #### [facility] [address], [place] [address]ZEV [Catalytic activity/Vol]78 Int._Unit/SRojief18-54BwjbibOhiohealth O'Bleness HospitalComment on above:Performed By: #### [id number] #### [facility] [address] [place] [address] 68656HNL No additional P-5'-P [Catalytic activity/Vol]24 Int._Unit/L Normal6-46[facility] HospitalComment on above:Performed By: #### [id number] #### [facility] [address], [place] [address]Zbkpb gap [Moles/Vol]10 mmol/LNormal6-16[facility] HospitalComment on above:Performed By: #### [id number] #### [facility] [address] [place] [address] 14143TTQ [Catalytic activity/Vol]16 Int._Unit/LNormal5-43[facility] HospitalComment on above:Performed By: #### [id number] #### [facility] [address], [place] [address]Mjjrkjlsd [Mass/Vol]0.4 mg/dLNormal0.0-1.1FMercy Memorial HospitalComment on above:Performed By: #### [id number] #### [facility] [address] [place] [address] 978[address]Jbtuhrh [Mass/Vol]8.8 mg/dLLow8.9-11.1FMercy Memorial HospitalComment on above:Performed By: #### [id number] #### [facility] [address], [place] [address]Dlawfglk [Moles/Vol]106 mmol/KDhjpbd584-208RkcobrOhiohealth O'Bleness HospitalComment on above:Performed By: #### [id number] #### [facility] [address] [place] [address] 31309VR6 [Moles/Vol]27 mmol/RFkzvit84-33PruuteOhiohealth O'Bleness Hospital Comment on above:Performed By: #### [id number] #### [facility] [address], [place] [address]Ygcjxkbrmr [Mass/Vol]0.7 mg/dLNormal0.5-1.3FMercy Memorial HospitalComment on above:Performed By: #### [id number] #### [facility] [address] [place] [address] 116[address]Oxauhean (S) [Mass/Vol]2.2 g/dLNormal1.4-4.0[facility] HospitalComment on above:Performed By: #### [id number] #### [facility] [address], [place] [address]Kbsekyc [Mass/Vol]94 mg/dTMeohyb76-605LbwgiuOhiohealth O'Bleness HospitalComment on above:Performed By: #### [id number] #### [facility] [address] [place] [address]Xzudrzimp [Moles/Vol]3.5 mmol/LNormal3.5-5.3FMercy Memorial HospitalComment on above:Performed By: #### [id number] #### [facility] [address], [place] [address]Drbjugw [Mass/Vol]6.6 g/dLNormal6.0-7.8[facility] HospitalComment on above:Performed By: #### [id number] #### [facility] [address], [place] [address]Hhdvwf [Moles/Vol]139 mmol/VGfahes654-301DobdqkOhiohealth O'Bleness HospitalComment on above:Performed By: #### [id number] #### [place] [facility] [address], [place] [address]Lcpe nitrogen [Mass/Vol]9 mg/dLNormal5-21[facility] HospitalComment on above:Performed By: #### [id number] #### [facility] [address], [place] [address]Qvrx nitrogen/Creatinine [Mass ratio]13 No IlbdfKwrpag68-65 [facility] HospitalComment on above:Performed By: #### [id number] #### [facility] [address], [place] [address]SPARXVVFUQHdzxcjv By: SYSTEM SYSTEM on 30-50-6608Gfcspkpns/100 WBC (Bld)0.2 %Normal0.0 - 2.0 %Remisol HemeBasophils/Leukocytes Auto (Bld) [Pure # fraction]0.0 E9/LNormal0.0 - 0.2 E9/LRemisol HemeEosinophils (Bld) [#/Vol]0.1 E9/LNormal0.0 - 0.5 E9/LRemisol HemeEosinophils/100 WBC (Bld)1.0 %Normal0.0 - 8.0 %Remisol HemeErythrocyte distribution width (RBC) [Ratio]13.1 %Tgecxw69.9 - 14.2 %Remisol HemeHematocrit (Bld) [Volume fraction]39.0 %Iiivxg61.0 - 46.0 % Remisol HemeHemoglobin (Bld) [Mass/Vol]13.4 g/nXNmvqlk68.0 - 16.0 gm/dLRemisol HemeLymphocytes (Bld) [#/Vol]2.9 E9/LNormal1.0 - 4.0 E9/LRemisol Heme Lymphocytes/100 WBC (Bld)28.0 %Pacpic06.0 - 50.0 %Remisol HemeMCH (RBC) [Entitic mass]31.8 iqSfzkog27.0 - 34.0 pgRemisol HemeMCHC (RBC) [Mass/Vol]34.3 g/dL Gfkqzq08.4 - 36.0 gm/dLRemisol HemeMCV (RBC) [Entitic vol]92.9 mNHcznsg75.0 - 100.0 fLRemisol HemeMonocytes (Bld) [#/Vol]0.5 E9/LNormal0.2 - 1.0 E9/LRemisol HemeMonocytes/100 WBC (Bld)4.7 %Normal4.0 - 14.0 %Remisol HemeNeutrophils (Bld) [#/Vol]6.9 E9/LNormal2.0 - 7.5 E9/LRemisol HemeNeutrophils/100 WBC (Bld)66.1 % Zcgutq93.0 - 75.0 %Remisol HemePlatelet mean volume (Bld) [Entitic vol]8.2 fL Normal6.4 - 10.8 fLRemisol HemePlatelets (Bld) [#/Vol]214.0 E9/XDioypn298.0 - 500.0 E9/LRemisol HemeRBC (Bld) [#/Vol]4.2 E12/LLow4.3 - 5.9 E12/LRemisol Heme WBC corrected for nucl RBC Auto (Bld) [#/Vol]10.5 E9/LNormal4.0 - 11.0 E9/L Remisol HemeLipase Levelon 67-02-6478Kkojcb [Catalytic activity/Vol]8 U/LLow 13-58[facility] HospitalComment on above:Performed By: #### [id number] #### [facility] [address], [place] [address]sDAZqd 88-85-8639uVDG205 mL/min/1.73 k4Icunjk>=59[facility] HospitalComment on above:Performed By: #### [id number] #### [facility] [address], [place] [address]Blmdmzvogd Visit Summaryon 40-84-5523Ykhwkwymib Visit Summary Ambulatory Visit Summary SOCORRO JOSEPH :2000 Visit Date:04/12/2024 Ambulatory Visit Instructions Your Diagnosis Influenza A Headache Nausea Chills Congestion of nasal sinus BMI 27.0-27.9,adult Your Care Team Attending Physician - Alana VIEYRA, Charisse Primary Care Physician - An LOERA, Raquel Penny This Is Your Medications List ondansetron (ondansetron [...] tablet to dissolve on tongue Pickup at [facility] New oseltamivir (Tamiflu 75 mg Cap) 1 Capsules By Mouth 2 times a day Influenza A Nausea BMI 27.0-27.9,adult Duration: 5 Days Pickup at [facility] 1985 Pharmacy Information [facility] 1986: [address] [place], [place] [id number] [phone] Medications and Immunizations Administered Given ondansetron 4 [...] you for choosing us for your care. [facility] Medicine Office/Clinic Noteon 10-25-7489[facility] Office/Clinic Note[facility] Chief Complaint migraine, nausea HPI Staff 23 year old female presents with migraine, nausea, sinus congestion onset yesterday History of Present Illness I have reviewed and verified the staff HPI to be accurate for this encounter. Portions of this record have been created with voice recognition software. Occasional wrong-word or???kiunj-p-socp??? substitutions may have occurred due to the [...] less than 72 hours and would like kathie treated with Tamiflu which will be sent [...] positive for influenza A. Discussed viral nature ofillness and typical duration- the worst (fever, body aches) is usually the first 3-5 days with coldsymptoms lasting 7-14 days typically. Advised 72 hr tamiflu window. Advised of possible benefits (sh ortening duration of illness by about 24 hours, possibly less severe illness) vs possible risks/side effects including temporary altered mental status. Patient/parent would like RX for tamiflu- sent to pharmacy. May use rmhk-amj-uxzbsug cold and flu medications per package instructions for symptomat ic treatment. Fluids/rest encouraged, PRN tylenol/ibuprofen for pain/fever, may need to alternate. Follow up with PCP if not improving over next 5-7 days, sooner or ER if significantly worsening. Patient/parent verbalized understanding of tx plan. Ordered: oseltamivir, 75 mg = 1 cap(s), Oral, BID, X 5 day(s), # 10 cap(s), Refills(s) 0, Pharmacy: [facility], 175.6, cm, 04/12/24 13:49:00 EST, Height/Length Dosing, 83.8, kg, 04/12/24 13:49:00 EST, Weight Dosing 2. Headache (R51.9: Headache, unspecified) As above in #1 May use Tylenol or ibuprofen for headache/ fever per package instructions. 3. Nausea (R11.0: Nausea) Patien (more content not included)...[facility] - WestComment on above:Result Comment: Electronically Signed By: Alana VIEYRA, Charisse\.br\Date and Time Signed: 04/12/24 18:34 ESTPatient Letter FTMCon [id number] Letter FTPatient Letter FT [address] [facility], [place] [id number] April 12, 2024 BREANNIA ERIK [address] [place] [address] : 2000 Please excuse ERIK, BREANNIA M from work . Date and/or Time of Absence: From: 04/15/24 To: 04/15/2024 May return to work on: 04/16/2024 Restrictions: None Comments: Please excuse due to an acute illness. Provider Signature: AZALIA Arizmendi Nurse Practitioner [facility] [address] [address] [facility] - WestPatient Letter FTPatient Letter FT [address] [facility] [facility], [place] [address] [phone] April 12, 2024 BREANNIA ERIK [address] [place] [phone] : 2000 Please excuse ERIK, BREANNIA M from work . Date and/or Time of Absence: From: 04/12/2024 To: 04/13/2024 May return to work on: 04/14/2024 Restrictions: None Comments: Please excuse due to an acute illness. Provider Signature: AZALIA Arizmendi Nurse Practitioner [facility] [address] [place] [address] [facility] Note-Physicianon [id number] Note-PhysicianED Note-Physician Basic Information Time Seen: Heri Lazcano PA-C 03/20/2024 07:21 Chief Complaint Pt reports she started with burning pain around umbilicus this AM while driviing with associated nausea. has had URI s/s for one week. Covid and CXR neg. Started with urinary urgency and burning lastnight. hx of tubal. History of Present Illness 23-year-old female comes into the ED for evaluation of abdominal pain. Over the last several days she has had some upper respiratory infection symptoms nasal congestion and cough. Associated lack of taste and smell. States she had negative COVID testing performed. Has been trying some llsk-hbg-qismmee cough and cold medications. Muscle discharge now [...] abdominal pain) Cough (R05.9: Cough, unspecified) Orders: amoxicillin-clavulanate, = 1 tab(s), Oral, q12hr, X 10 day(s), # 20 tab(s), Refills(s) 0, Pharmacy:[facility], 175.6, cm, 03/20/24 7:23:00 EST, Height/Length Dosing, 80, kg, 03/20/24 7:23:00 EST, Weight Dosing dextromethorphan-promethazine, 5 mL, Oral, q6hr for cough for 5 day(s), 200 mL, Refill(s) 0, [facility], 175.6, cm, 03/20/24 7:23:00 EST, [...] mg oral tablet, 1 tab(s), Oral, q12hr dextromethorphan-promethazine 15 mg-6.25 mg/5 mL Oral Syrup 5 mL, 5 mL, Oral, q6hr, PRN Follow-up With When Contact Information Raquel Nolan In 3 days 03/23/2024 EST [address] [place] [address]- Business (1) Additional Instructions: Patient Education Cough, [...] Every effort was mad (more content not included)...[facility] - WestComment on above:Result Comment: Electronically Signed By: Heri Lazcano PA-C\.br\Date and Time Signed: 03/20/2409:21 EST\.br\Electronically Co-Signed By: Roque Harris DO\.br\Date and Time Co-Signed: 03/21/24 08:01 ESTBMPon 94-76-2994Ktuei gap [Moles/Vol]10 mmol/LNormal6-16[facility] HospitalComment on above: Performed By: #### [id number] #### [facility] [address], [place] [address]Nohxrkm [Mass/Vol]9.4 mg/dLNormal8.9-11.1FMercy Memorial HospitalComment on above:Performed By: #### [id number] #### [facility] [address], [place] [address]Ckxqszbd [Moles/Vol]104 mmol/NJhxlsy321-056GfmbhcOhiohealth O'Bleness HospitalComment on above:Performed By: #### [id number] #### [facility] [address], [place] [address]JM3 [Moles/Vol]28 mmol/FKdttux35-04YbewdlOhiohealth O'Bleness Hospital Comment on above:Performed By: #### [id number] #### [facility] [address], [place] [address]Mjhhwtwfph [Mass/Vol]0.6 mg/dLNormal0.5-1.3FMercy Memorial HospitalComment on above:Performed By: #### [id number] #### [facility] [address] [place] [address] 19[address]Bcjuezr [Mass/Vol]93 mg/lYElldfz02-698UffwdxOhiohealth O'Bleness HospitalComment on above:Performed By: #### [id number] #### [facility] [address], [place] [address]Iylugriuv [Moles/Vol]4.2 mmol/LNormal3.5-5.3FMercy Memorial HospitalComment on above:Performed By: #### [id number] #### [facility] [address] [place] [address]64[address]Qgodbd [Moles/Vol]138 mmol/UEyxvil089-701WdecvgOhiohealth O'Bleness HospitalComment on above:Performed By: #### [id number] #### [facility] [address] [place] [address]36[address]Spwz nitrogen [Mass/Vol]15 mg/dLNormal5-21[facility] HospitalComment on above:Performed By: #### [id number] #### [facility] [address] [place] [address] 588[address]Biei nitrogen/Creatinine [Mass ratio]25 No DsucuYzlk47-04OfkiafOhiohealth O'Bleness HospitalComment on above:Performed By: #### [id number] #### [facility] [address] [place] [address] 37[address]PGZ w/ Auto Diffon 48-97-0452Lnniggikq/100 WBC (Bld)0.7 %Normal 0.0-2.0[facility] HospitalComment on above:Performed By: #### [id number] #### [facility] [address] [place] [address] 524[address]Xxkknfwjr/Leukocytes Auto (Bld) [Pure # fraction]0.1 E9/LNormal 0.0-0.2FMercy Memorial HospitalComment on above:Performed By: #### [id number] #### [facility] [address] [place] [address]Fuagtgaqyjx (Bld) [#/Vol]0.3 E9/LNormal0.0-0.5FMercy Memorial HospitalComment on above:Performed By: #### [id number] #### [facility] [address] [place] [address] 60406Zwiempstmav/100 WBC (Bld)3.9 %Normal0.0-8.0[facility]len[facility] HospitalComment on above:Performed By: #### [id number] #### [facility] [address] [place] [address] 23[address]Mxlsnoimulq distribution width (RBC) [Ratio]12.7 %Normal 10.9-14.2FMercy Memorial HospitalComment on above:Performed By: #### [id number] #### [facility] [address] [place] [address] 39992Vndloeepie (Bld) [Volume fraction]38.7 %Hcrixc16.0-46.0[facility] HospitalComment on above:Performed By: #### [id number] #### [facility] [address] [place] [address] 19869Vegqaqarjn (Bld) [Mass/Vol]13.4 g/jKXbcbfo28.0-16.0[facility] HospitalComment on above:Performed By: #### [id number] #### [facility] [address] [place] [address] 647[address]Ahxwruhymqg (Bld) [#/Vol]2.2 E9/LNormal1.0-4.0[facility] HospitalComment on above:Performed By: #### [id number] #### [facility] [address] [place] [address] 10063Deznkqegkvd/100 WBC (Bld)31.7 %Hseppq66.0-50.0[facility] HospitalComment on above:Performed By: #### [id number] #### [facility] [address] [place] [address] [place] [address]JII (RBC) [Entitic mass]32.2 xdSpygel46.0-34.0[facility] HospitalComment on above:Performed By: #### [id number] #### [facility] [address] [place] [address] 900[address]UYOR (RBC) [Mass/Vol]34.5 g/cQMuoiml42.4-36.0[facility] HospitalComment on above:Performed By: #### [id number] #### [facility] [address] [place] [address] 92806DBL (RBC) [Entitic vol]93.1 iUBvoawp65.0-100.0[facility] HospitalComment on above:Performed By: #### [id number] #### [facility] [address] [place] [address]95[address]Vunkovzat (Bld) [#/Vol]0.5 E9/LNormal0.2-1.0[facility] HospitalComment on above:Performed By: #### [id number] #### [facility] [address] [place] [address]32[address]Luomuwtzcmy (Bld) [#/Vol]4.0 E9/LNormal2.0-7.5FMercy Memorial HospitalComment on above:Performed By: #### [id number] #### [facility] [address] [place] [address] 155[address]Ybegarmodal/100 WBC (Bld)56.8 %Scbdvn59.0-75.0[facility] HospitalComment on above:Performed By: #### [id number] #### [facility] [address] [place] [address] 949[address]Qpvljsvv mean volume (Bld) [Entitic vol]8.6 fLNormal6.4-10.8 [facility] HospitalComment on above:Performed By: #### [id number] #### [facility] [address] [place] [address] 285[address]Sqfawwmfd (Bld) [#/Vol]264.0 E9/HHvtzfi930.0-500.0[facility] HospitalComment on above:Performed By: #### [id number] #### [place] [facility] [address], [place] [address]HVP (Bld) [#/Vol]4.2 E12/LLow4.3-5.9[facility] Comment on above:Performed By: #### [id number] #### [place] [facility] [address], [place] [address]UJT corrected for nucl RBC Auto (Bld) [#/Vol]7.0 E9/LNormal 4.0-11.0[facility] HospitalComment on above:Performed By: #### [id number] #### [place] [facility] [address], [place] [address]RHTICFNOUYkudzsj By: SYSTEM SYSTEM on 71-31-8567Jdsvdog [Mass/Vol]4.3 g/dLNormal3.3 - 5.0 gm/dLRemisol ChemAlbumin/Globulin [Mass ratio] 1.6 {ratio}Normal1.1 - 2.2Remisol ChemALP [Catalytic activity/Vol]110 [iU]/dHigh 21 - 98 Int._Unit/LRemisol ChemALT No additional P-5'-P [Catalytic activity/Vol] 26 [iU]/dNormal6 - 46 Int._Unit/LRemisol ChemAnion gap [Moles/Vol]10 mmol/L Normal6 - 16 mEq/LRemisol ChemAST [Catalytic activity/Vol]16 [iU]/dNormal5 - 43 Int._Unit/LRemisol ChemBilirubin [Mass/Vol]0.7 mg/dLNormal0.0 - 1.1 mg/dLRemisol ChemBilirubin.direct [Mass/Vol]0.1 mg/dLNormal0.0 - 0.4 mg/dLRemisol Chem Bilirubin.indirect [Mass or moles/Vol]0.6 mg/dLNormal0.1 - 0.9 mg/dLRemisol Chem Calcium [Mass/Vol]9.4 mg/dLNormal8.9 - 11.1 mg/dLRemisol ChemChloride [Moles/Vol]104 mmol/ZJjhgus441 - 111 mmol/LRemisol ChemCO2 [Moles/Vol]28 mmol/L Ujdwbm91 - 31 mmol/LRemisol ChemCreatinine [Mass/Vol]0.6 mg/dLNormal0.5 - 1.3 mg/dLRemisol PltazNSX453 mL/min/1.73 q3Wudxxo>=59mL/min/1.73 g9Byxuzht Chem Globulin (S) [Mass/Vol]2.7 g/dLNormal1.4 - 4.0 gm/dLRemisol ChemGlucose [Mass/Vol]93 mg/jYWcueas18 - 199 mg/dLRemisol ChemLipase [Catalytic activity/Vol]6 U/LLow13 - 58 unit/LRemisol ChemPotassium [Moles/Vol]4.2 mmol/L Normal3.5 - 5.3 mmol/LRemisol ChemProtein [Mass/Vol]7.0 g/dLNormal6.0 - 7.8 gm/dLRemisol ChemSodium [Moles/Vol]138 mmol/MDpcila485 - 145 mmol/LRemisol Chem Urea nitrogen [Mass/Vol]15 mg/dLNormal5 - 21 mg/dLRemisol ChemUrea nitrogen/Creatinine [Mass ratio]25 mg/elHaqp59 - 20Remisol ChemED Clinical Summaryon [id number] Clinical SummaryED Clinical Summary [place] [id number] ED Clinical Summary Person Information Name: SOCORRO JOSEPH Alena/[facility] [place] Age: 23 Years : 2000 Sex: Female Language: Nigerien PCP: Raquel Nolan MD Marital Status: Single [...] 03/20/2024 09:23:46 03/20/2024 09:23:46 03/20/2024 09:23:46 ADDRESS: [address] [place] [id number] PHYS DOC NOTES: MEDICAL INFORMATION: Prescriptions Given: New Medications [facility], [address] [place], [place] [id number], [phone] amoxicillin-clavulanate (Augmentin 875 mg oral tablet) 1 Tablets By Mouth every 12 hours for 10 Days. Refills: 0. dextromethorphan-promethazine (dextromethorphan-promethazine 15 mg-6.25 mg/5 mL Oral Syrup 5 mL) 5 Milliliter By Mouth every 6 hours as needed for cough for 5 Days. Refills: 0. Medications to Continue with No Changes Other Medications brompheniramine/dextromethorphan/PSE (Bromfed DM oral syrup) 10 Milliliter By Mouth 4 times a day for 5 Days. Refills: 0. PATIENT EDUCATION INFORMATION: Instructions: Cough, Adult; Abdominal Pain, Adult Follow up: With: Address: When: Raquel Nolan [address] [place] [address] Business (1) In 3 days 03/23/2024 DIAGNOSIS: Abdominal pain; CoughNormalFisher Regis Medical CenterED Patient Summaryon [id number] Patient SummaryED Patient Summary [address] [address] Patient Discharge Instructions Person Information Name: SOCORRO JOSEPH Age: 23 Years Arrival Date: 03/20/2024 07:17:01 Discharge Diagnosis: Abdominal pain; Cough Primary Care Physician: Raquel Nolan MD Provider Information Primary Provider: Roque Harris DO [facility] Rn:Heri Lazcano PA-C The exam and treatment you received in the Emergency Department were for an urgent problem and are not intended as complete care. It is important that you follow up with a doctor, nurse practitioner,or physician???s admin assistant for ongoing care. If your symptoms become worse or you do not improve asexpected and you are unable to reach your usual health care provider, you should return to the Emergency Department. We are available 24 hours a day. SOCORRO JOSEPH has been given the following list of patient education materials, prescriptions and follow-up instructions: Follow-up Instructions: With: Address: When: Raquel Nolan [place] [address] Business (1) In 3 days 03/23/2024 In the event that this physician does not participate in your insurance network, please consult with your insurance company to find a nearby participating provider. Patient Education Materials: Cough, Adult; Abdominal Pain, Adult A MESSAGE TO ALL PATIENTS REGARDING OPIOIDS PRESCRIPTION OPIOIDS: WHAT YOU NEED TO KNOW Prescription opioids can be used to help relieve ugpzvofi-oz-yqoamd pain and are often prescribed following a [...] guidance from the Food and Drug Administration (www.fda.gov/Drugs/ResourcesForYou). ??? Visit www.cdc.gov/drugoverdose to learn about the risks of opioids abuse and overdose. ??? If you believe you may be struggling with addiction, tell your health care (more content not included)...[facility] - WestExtra Blueon 55-72-6739Aqbu Collected PlasmaYesInvalid Interpretation [facility] HospitalComment on above:Performed By: #### [id number] #### [place] [facility] [address] [place], [place] [address]OILEOWEGLILgxbxyi By: Rachael San on 03-20-2024 Basophils/100 WBC (Bld)0.7 %Normal0.0 - 2.0 %Remisol HemeBasophils/Leukocytes Auto (Bld) [Pure # fraction]0.1 E9/LNormal0.0 - 0.2 E9/LRemisol HemeEosinophils (Bld) [#/Vol]0.3 E9/LNormal0.0 - 0.5 E9/LRemisol HemeEosinophils/100 WBC (Bld) 3.9 %Normal0.0 - 8.0 %Remisol HemeErythrocyte distribution width (RBC) [Ratio] 12.7 %Phfieo68.9 - 14.2 %Remisol HemeHematocrit (Bld) [Volume fraction]38.7 % Gbglhg02.0 - 46.0 %Remisol HemeHemoglobin (Bld) [Mass/Vol]13.4 g/jSCmvzyn75.0 - 16.0 gm/dLRemisol HemeLymphocytes (Bld) [#/Vol]2.2 E9/LNormal1.0 - 4.0 E9/L Remisol HemeLymphocytes/100 WBC (Bld)31.7 %Xgjiav01.0 - 50.0 %Remisol HemeMCH (RBC) [Entitic mass]32.2 vnRturqw57.0 - 34.0 pgRemisol HemeMCHC (RBC) [Mass/Vol] 34.5 g/uTZlvitb92.4 - 36.0 gm/dLRemisol HemeMCV (RBC) [Entitic vol]93.1 fLNormal 80.0 - 100.0 fLRemisol HemeMonocytes (Bld) [#/Vol]0.5 E9/LNormal0.2 - 1.0 E9/L Remisol HemeMonocytes/100 WBC (Bld)6.9 %Normal4.0 - 14.0 %Remisol Heme Neutrophils (Bld) [#/Vol]4.0 E9/LNormal2.0 - 7.5 E9/LRemisol HemeNeutrophils/100 WBC (Bld)56.8 %Tdmtdj73.0 - 75.0 %Remisol HemePlatelet mean volume (Bld) [Entitic vol]8.6 fLNormal6.4 - 10.8 fLRemisol HemePlatelets (Bld) [#/Vol]264.0 E9/FByeucn922.0 - 500.0 E9/LRemisol HemeRBC (Bld) [#/Vol]4.2 E12/LLow4.3 - 5.9 E12/LRemisol HemeWBC corrected for nucl RBC Auto (Bld) [#/Vol]7.0 E9/LNormal4.0 - 11.0 E9/LRemisol HemeHep Func Panelon 79-58-8337Ftwgfkg [Mass/Vol]4.3 g/dL Normal3.3-5.0[facility]leness HospitalComment on above:Performed By: #### [id number] #### [facility] [address], [place] [address]Opfvrfy/Globulin (S) [Mass conc ratio]1.7Neztns0.1-2.2[facility] HospitalComment on above:Performed By: #### [id number] #### [facility] [address], [place] [address]MUN [Catalytic activity/Vol]110 Int._Unit/VRefa86-96WfydiuOhiohealth O'Bleness HospitalComment on above:Performed By: #### [id number] #### [facility] [address], [place] [address]VFN No additional P-5'-P [Catalytic activity/Vol]26 Int._Unit/L Normal6-46[facility]len[facility] HospitalComment on above:Performed By: #### [id number] #### [facility] [address], [place] [address]QJU [Catalytic activity/Vol]16 Int._Unit/LNormal5-43[facility] HospitalComment on above:Performed By: #### [id number] #### [facility] [address], [place] [address]Ffkqvpgrt [Mass/Vol]0.7 mg/dLNormal0.0-1.1FMercy Memorial HospitalComment on above:Performed By: #### [id number] #### [facility] [address], [place] [address]Fcrhwlsop.direct [Mass/Vol]0.1 mg/dLNormal0.0-0.4FMercy Memorial HospitalComment on above:Performed By: #### [id number] #### [facility] [address] [place] [address]Ygfhnfkpe.indirect [Mass or moles/Vol]0.6 mg/dLNormal0.1-0.9 [facility]len[facility] HospitalComment on above:Performed By: #### [id number] #### [facility] [address], [place] [address]Hotslloy (S) [Mass/Vol]2.7 g/dLNormal1.4-4.0[facility] HospitalComment on above:Performed By: #### [id number] #### [facility] [address], [place] [address]Fhfjlrq [Mass/Vol]7.0 g/dLNormal6.0-7.8[facility] HospitalComment on above:Performed By: #### [id number] #### [facility] [address] [place] [address]Mrcblg Levelon 13-48-5606Opuusr [Catalytic activity/Vol]6 U/L Vgz27-59DfeaftOhiohealth O'Bleness HospitalComment on above:Performed By: #### [id number] #### [facility] [address], [place] [address]PPXVCYKSKnhhqvo By: Radha Case on 28-37-8640JMI.beta subunit (U) [Moles/Vol]NegativeNormalMEM[facility]IAL [facility] Man SeroU BetaHcg Qualon 93-05-9574JPU.beta subunit (U) [Moles/Vol]NegativeNormalOhiohealth O'Bleness HospitalComment on above:Performed By: #### [id number] #### [facility] [address], [place] [address]ZK with Cult Rflxon 74-59-3302Iflbxnll Auto Ql (U)TraceNormal TraceOhiohealth O'Bleness HospitalComment on above:Performed By: #### [id number] #### [facility] [address], [place] [address]Tiinjcfds Ql (U)NegativeNormalNegativeOhiohealth O'Bleness HospitalComment on above:Performed By: #### [id number] #### [facility] [address], [place] [address]Sipersc (U)ClearNormalClearOhiohealth O'Bleness HospitalComment on above:Performed By: #### [id number] #### [facility] [address], [place] [address]Wefxj (U)YellowNormalYellowOhiohealth O'Bleness HospitalComment on above:Result Comment: Microscopic readings are only performed on those samples that meet specific criteria set forth by [facility].Performed By: #### [id number] #### [facility] [address], [place] [address]Tekvzauqpy cells.squamous Auto (Urine sed) [#/Area]3-4Invalid Interpretation CodeOhiohealth O'Bleness HospitalComment on above:Performed By: #### [id number] #### [facility] [address], [place] [address]Jmpmwyw Ql (U)NegativeNormalNegPeoples Hospital Comment on above:Performed By: #### [id number] #### [facility] [address], [place] [address]Awdyzrphtc Auto test strip (U) [Mass/Vol]3+ mg/dLAbnormal NegativeOhiohealth O'Bleness HospitalComment on above:Performed By: #### [id number] #### [facility] [address], [place] [address]Dmjwqka Auto test strip Ql (U)NegativeNormalNegativeOhiohealth O'Bleness HospitalComment on above:Performed By: #### [id number] #### [facility] [address], [place] [address]Dxyirbbma esterase Auto test strip Ql (U)[facility] HospitalNormalNegSt. Vincent HospitalComment on above:Performed By: #### [id number] #### [facility] [address], [place] [address]Mxkpk Auto Ql (U)TraceNormalNegPeoples Hospital Comment on above:Performed By: #### [id number] #### [facility] [address], [place] [address]Jchwred Auto test strip Ql (U)NegativeNormalNegPeoples HospitalComment on above:Performed By: #### [id number] #### [facility] [address], [place] [address]zU (U)7.5 [pH]Invalid Interpretation Code5.0-9.0[facility]len[facility] HospitalComment on above:Performed By: #### [id number] #### [facility] [address], [place] [address]Fezultc Ql (U)NegativeNormalNegPeoples Hospital Comment on above:Performed By: #### [id number] #### [facility] [address], [place] [address]IGX Ql (U)8-75Nyfsclec2-1RldmidMercy Memorial HospitalComment on above:Performed By: #### [id number] #### [facility] [address], [place] [address]Vsmyhajh gravity (U) [Rel density]1.012Invalid Interpretation Code1.005-1.030[facility] HospitalComment on above:Performed By: #### [id number] #### [facility] [address], [place] [address]Igtfhcqkszsw (U) [Mass/Vol]NegativeNormalNegativeOhiohealth O'Bleness HospitalComment on above:Performed By: #### [id number] #### [facility] [address] [place] [address]PCZ Auto (Urine sed) [#/Area]4-2Lbqqdh5-8NfalktMercy Memorial HospitalComment on above:Performed By: #### [id number] #### [facility] [address] [place] [address]Fota of Urine collection methodClean CatchNormalOhiohealth O'Bleness HospitalComment on above:Performed By: #### [id number] #### [facility] [address] [place] [address]CGNAIHWXBIMpbvjiv By: SYSTEM SYSTEM on 89-86-4465Tmgfuzxa Auto Ql (U)Trace /HPFNormalTrace/HPFMEMORIAL [facility] UA Auto SSBilirubin Ql (U)NegativeNormal Negativemg/dLMEMORIAL HOS[facility] UA Auto SSClarity (U)Clear (03/20/24 7:29 AM)NormalClearFTM UA Auto SSColor (U)Yellow 1 (03/20/24 7:29 AM)NormalYellowMEMORIAL H[facility] UA Auto SSComment on above:Interpretive Data: Microscopic readings are only performed on those samples that meet specific criteria set forth by [facility].Epithelial cells.squamous Auto (Urine sed) [#/Area]3-4 graded/HPFInvalid Interpretation CodeMEMORIAL HOS[facility] UA Auto SSGlucose Ql (U)NegativeNormalNegativemg/dLMEMORIAL HOS[facility] UA Auto SS Hemoglobin Auto test strip (U) [Mass/Vol]3+ mg/dLInvalid Interpretation Code Negativemg/dLFT UA Auto SSKetones Auto test strip Ql (U)NegativeNormal Negativemg/dLFT UA Auto SSLeukocyte esterase Auto test strip Ql (U)Negative NormalNegativeLeu/uLMEMORIAL HOS[facility] UA Auto SSMucus Auto Ql (U)Trace graded/LPFNormal Negativegraded/LPFFTMC UA Auto SSNitrite Auto test strip Ql (U)NegativeNormal Negativemg/dLMEMORIAL HOS[facility] UA Auto SSpH (U)7.5 *NA* (03/20/24 7:29 AM)Invalid Interpretation Code5.0 - 9.0[facility] UA Auto SSProtein Ql (U)NegativeNormalNegativemg/dLMEMORIAL [facility] UA Auto SSRBC Ql (U)4-20 graded/HPFInvalid Interpretation Code0-3graded/HPFMEMORIAL HOSPITAL OF [facility] UA Auto SSSpecific gravity (U) [Rel density]1.012 *NA* (03/20/24 7:29 AM)Invalid Interpretation Code1.005 - 1.030[facility] UA Auto SS Urobilinogen (U) [Mass/Vol]NegativeNormalNegativemg/dLMEMORIAL [facility] UA Auto SSWBC Auto (Urine sed) [#/Area]0-5 graded/HPFNormal0-5graded/HPFMEMORIAL HOS[facility] UA Auto SSURINALYSIS Ordered By: Chandana Tellez on 56-64-1801EE Spec DescClean Catch (03/20/24 7:29 AM)NormalMEMORIAL HOSPITAL OF [facility] UA Auto SSXR Abdomen Series w/ Chest 1 Viewon 34-21-1488ID Abdomen Series w/ Chest 1 ViewExam Date/Time: 03/20/2024 08:14 EST Reason for Exam: Abdominal pain Report IMPRESSION: No acute radiographic findings. EXAMINATION/TECHNIQUE: XR Abdomen Series w/ Chest 1 View [...] Ka,r in mGy = na DAP = naNormalOhiohealth O'Bleness HospitaleGFRon 77-01-9139oFNE416 mL/min/1.73 m2 Normal>=59Ohio[facility]len[facility] HospitalComment on above:Performed By: #### [id number] #### [facility] [address] [place] [address]Hxaampucdr Visit Summaryon 07-59-8434Sahwyoejlu Visit Summary Ambulatory Visit Summary ERIK, SOCORRO Penny :2000 Visit Date:03/15/2024 Ambulatory Visit Instructions Your Diagnosis Exposure to pneumonia Cough Your Care Team Attending Physician - Alana VIEYRA, Charisse Primary Care Physician - Raqule Nolan MD This Is Your Medications List brompheniramine/dextromethorphan/PSE (Bromfed DM oral syrup) Procedures Performed Insertion of IUD (07/18/2019), Tubal ligation. Discharge Vitals Temperature (Tympanic) 37 ???C Heart Rate (Peripheral) 88 Blood Pressure 112/68 Height 175 cm Height 69 in Weight 84 kg Weight 185.188 lb BMI 27.43 Medications What How Much When Why Instructions New brompheniramine/ dextromethorphan/ PSE (Bromfed DM oral syrup) 10 Milliliter By Mouth 4 times aday Exposure to pneumonia Cough Duration: 5 Days Pickup at [facility] Pharmacy Information [facility]: [address] [id number] [phone] Allergies No Known Allergies Problems Ongoing - [...] you for choosing us for your care. [facility] Medicine Office/Clinic Noteon 59-88-2117Beospd Medicine Office/Clinic NoteWestern [facility]/Clinic Note Chief Complaint cough HPI Staff 23 year old female presents with sore throat, cough, congestion, headache, ear pain, itchy eyes forthe past day pt's daughter had pneumonia 2 weeks ago, pt's coworker currently has pneumonia dayquil, tylenol cold and flu History of Present Illness I have reviewed and verified the staff HPI to be accurate for this encounter. Portions of this record have been created with voice recognition software. Occasional wrong-word or???kftpx-c-oadr??? substitutions may have occurred due to the [...] diagnosed with pneumonia. She has been using qpnn-oxp-euvpxvj medications like DayQuil, Tylenol Cold and flu for hersymptoms. Patient is agreeable to COVID testing in [...] communicable diseases) Chest x-ray negative today Ordered: brompheniramine/dextromethorphan/PSE, 10 mL, Oral, QID for 5 day(s), 200 mL, Refill(s) 0, [facility], 175, cm, 03/15/24 15:52:00 EST, Height/Length Dosing, 84, kg, 03/15/24 15:52:00 EST, Weight Dosing Rapid COVID POC 08628 XR Chest 2 Views Cough (R05.9: Cough, unspecified) Ordered: brompheniramine/dextromethorphan/PSE, 10 mL, Oral, QID for 5 day(s), 200 mL, Refill(s) 0, [facility], 175, cm, 03/15/24 15:52:00 EST, Height/Length Dosing, 84, kg, 03/15/24 15:52:00 EST, Weight Dosing Rapid COVID POC 89894 XR Chest 2 Views Follow-up With When Contact Information An LOERA, Raquel Penny [address] [place] [address]- Additional Instructions: Patient Education Cough, Adult, Dxqj-cu-Koiy Viral Respiratory Infection, Aofy-Wx-Xppo Problem List/Past Medical History Ongoing Depression Smoker Historical Smoker Supervision of normal in second trimester Procedure/Surgical History Insertion of IUD (07/18/2019), Tubal ligation. Medications Bromfed DM oral syrup, 10 mL, Oral, QID Allergies No Known Allergies Social History Alcohol - Denies Alcohol Use, 06/29/2023 Liquor, 1-2 times per month, 06/16/2020 DENIES, Household alcohol concerns: No., 12/25/2019 Employment/School Employed, Highest education (more content not included)...[facility] WestComment on above:Result Comment: Electronically Signed By: Charisse Russell\.br\Date and Time Signed: 03/15/24 16:45 ESTFamily Medicine Office/Clinic NoteFami Medicine Office/Clinic Note Chief Complaint cough HPI Staff 23 year old female presents with sore throat, cough, congestion, headache, ear pain, itchy eyes forthe past day pt's daughter had pneumonia 2 [...] (suspected) exposure to other communicable diseases) Ordered: brompheniramine/dextromethorphan/PSE, 10 mL, Oral, QID for 5 day(s), 200 mL, [facility]s) [facility], [facility], cm, 03/15/24 15:52:00 EST, Height/Length Dosing, 84, kg, 03/15/24 15:52:00 EST, Weight Dosing Rapid COVID POC 23858 XR Chest 2 Views 2. Cough (R05.9: Cough, unspecified) Ordered: brompheniramine/dextromethorphan/PSE, 10 mL, Oral, QID for 5 day(s), 200 mL, Refill(s) 0, [facility], 175, cm, 03/15/24 15:52:00 EST, Height/Length Dosing, 84, kg, 03/15/24 15:52:00 EST, Weight Dosing Rapid COVID POC 88635 XR Chest 2 Views Follow-up No qualifying [...] in household: No. Smoker in household: No. Injuries/Abuse/Neglect in household: No. Feels unsafe at home: No. Safe place to go: Yes. Agency(s)/Others notified: No. Family/Friends availablefor support: Yes. Concern for family members at home: No. Major illness in household: No. Financialconcerns: No., 07/18/2019 Nutrition/Health Regular, 07/18/2019 Sexual Straight [...] IMPRESSION: NO RADIOGRAPHIC EVIDENC (more content not included)...NormalFisher Regis Medical CenterComment on above:Result Comment: Electronically Signed By: Charisse Russell\.br\Date and Time Signed: 03/15/24 16:37 ESTXR Chest 2 Viewson 03-15-2024 XR Chest 2 ViewsExam Date/Time: 03/15/2024 16:25 EST Reason for Exam: [...] Jeff Rand DO Transcribed by: KEE Technologist: ROSENDA Technical Comments Radiation Dose: eva Tiwari in mGy = na DAP = naNorGerman HospitalIGP,APTIMA HPV,AGE GDLNon 07-12-5733VFL GDLN ACOG TESTINGNote.NOMS HealthcareComment on above:TESTS RESULT FLAG UNITS REF RANGE LAB Clinician Provided Cytology Information Source.............Cervix;Endocervix No. of containers..01 ThinPrep Vial Age Algo ACOG Rebecca... -03 05 FLAG LEGEND: L-Low Normal,H-High Normal,LL-Alert Low,HH-Alert High <-Panic Low,>-Panic High,A-Abnormal,AA-Critical Abnormal Performed at: 01 =[facility] [address] [place] [address] Rosalia Harp MD, IGP, RFX APTIMA HPV ASCUNote.NOMS HealthcareComment on above:TESTS RESULT FLAG UNITS REF RANGE LAB DIAGNOSIS: 02 NEGATIVE FOR INTRAEPITHELIAL LESION OR MALIGNANCY. Specimen adequacy: 02 Satisfactory for evaluation. No endocervical component is identified. Performed by: 02 Hillary Campa, [place] Machine Operator ([facility]) . 02 Note: Note 02 [...] <-Panic Low,>-Panic High,A-Abnormal,AA-Critical Abnormal Performed at: [address] [facility] [address] [place] [address] Rosalia Harp MD, Performed at: =G - [facility] [address], [place] [id number] Extrusion Technician: Rosalia Harp MD, Phone: [phone] Performed at: - [facility] [id number] Extrusion Technician: Rosalia Harp MD, Phone: [phone] BRUSH-SPATULA CERVIX ENDOCERVIX [facility] w/ Auto Diffon 01-92-3129Yoojjfvdp/100 WBC (Bld)0.5 %Normal0.0-2.0[facility]leness HospitalComment on above:Performed By: #### [id number] #### [facility] [address] [place] [address]Tvgekkdlt/Leukocytes Auto (Bld) [Pure # fraction]0.0 E9/LNormal 0.0-0.2FMercy Memorial HospitalComment on above:Performed By: #### [id number] #### [facility] [address] [place] [address]Vasmazjhdtm (Bld) [#/Vol]0.1 E9/LNormal0.0-0.5FMercy Memorial HospitalComment on above:Performed By: #### [id number] #### [facility] [address] [place] [address]Ymndmzigaxe/100 WBC (Bld)1.1 %Normal0.0-8.0[facility]Bleness HospitalComment on above:Performed By: #### [id number] #### [facility] [address] [place] [address]Ufaquklfjit distribution width (RBC) [Ratio]13.1 %Normal 10.9-14.2FMercy Memorial HospitalComment on above:Performed By: #### [id number] #### [facility] [address] [place] [address]Xosmpljhos (Bld) [Volume fraction]39.5 %Qimjhr64.0-46.0[facility] HospitalComment on above:Performed By: #### [id number] #### [facility] [address] [place] [address]Jwnyrtccfa (Bld) [Mass/Vol]13.8 g/aQScqtzf72.0-16.0[facility]leness HospitalComment on above:Performed By: #### [id number] #### [facility] [address] [place] [address]Ywactxpdzgf (Bld) [#/Vol]3.0 E9/LNormal1.0-4.0[facility] HospitalComment on above:Performed By: #### [id number] #### [facility] [address] [place] [address]Fakdodzrzgj/100 WBC (Bld)46.0 %Rmwwlv98.0-50.0[facility] HospitalComment on above:Performed By: #### [id number] #### [facility] [address] [place] [address]BQF (RBC) [Entitic mass]32.4 euIoyfvt50.0-34.0[facility] HospitalComment on above:Performed By: #### [id number] #### [facility] [address] [place] [address]OSBE (RBC) [Mass/Vol]34.8 g/xMOjrdwq70.4-36.0[facility] HospitalComment on above:Performed By: #### [id number] #### [facility] [address] [place] [address]VBN (RBC) [Entitic vol]93.0 rBTltkbo53.0-100.0[facility] HospitalComment on above:Performed By: #### [id number] #### [facility] [address] [place] [address]Jukkvckqk (Bld) [#/Vol]0.4 E9/LNormal0.2-1.0[facility] HospitalComment on above:Performed By: #### [id number] #### [facility] [address] [place] [address]Fqaszvikcgf (Bld) [#/Vol]3.0 E9/LNormal2.0-7.5FMercy Memorial HospitalComment on above:Performed By: #### [id number] #### [facility] [address] [place] [address]Kattjgbnirj/100 WBC (Bld)46.2 %Gryfrk60.0-75.0[facility]Bleness HospitalComment on above:Performed By: #### [id number] #### [facility] [address] [place] [address]Vuogdeay mean volume (Bld) [Entitic vol]8.7 fLNormal6.4-10.8 [facility]len[facility] HospitalComment on above:Performed By: #### [id number] #### [facility] [address] [place] [address]Lvkioyaot (Bld) [#/Vol]254.0 E9/QKzfwjy631.0-500.0[facility]leness HospitalComment on above:Performed By: #### [id number] #### [facility] [address] [place] [address]GRU (Bld) [#/Vol]4.3 E12/LNormal4.3-5.9[facility]len[facility] HospitalComment on above:Performed By: #### [id number] #### [facility] [address] [place] [address]PPV corrected for nucl RBC Auto (Bld) [#/Vol]6.5 E9/LNormal 4.0-11.0[facility]leness HospitalComment on above:Performed By: #### [id number] #### [facility] [address] [place] [address]BDFGCFHQFZcoeill By: SYSTEM SYSTEM on 02-12-3332Nznpjoj [Mass/Vol]4.7 g/dLNormal3.3 - 5.0 gm/dLRemisol ChemAlbumin/Globulin [Mass ratio] 2.0 {ratio}Normal1.1 - 2.2Remisol ChemALP [Catalytic activity/Vol]78 [iU]/d Ojorcx20 - 98 Int._Unit/LRemisol ChemALT No additional P-5'-P [Catalytic activity/Vol]26 [iU]/dNormal6 - 46 Int._Unit/LRemisol ChemAnion gap [Moles/Vol]8 mmol/LNormal6 - 16 mEq/LRemisol ChemAST [Catalytic activity/Vol]17 [iU]/dNormal 5 - 43 Int._Unit/LRemisol ChemBilirubin [Mass/Vol]0.6 mg/dLNormal0.0 - 1.1 mg/dL Remisol ChemCalcium [Mass/Vol]9.7 mg/dLNormal8.9 - 11.1 mg/dLRemisol Chem Chloride [Moles/Vol]104 mmol/WYwljfa072 - 111 mmol/LRemisol ChemCholesterol [Mass/Vol]198 mg/hIHlkzqm667 - 200 mg/dLRemisol ChemCholesterol in HDL [Mass/Vol]37 mg/dLInvalid Interpretation CodeRemisol ChemComment on above:Result Comment: '>= 60 LOW RISK' '<= 40 HIGH RISK'Cholesterol in LDL [Mass/Vol]141 mg/dLHigh<=129mg/dLRemisol ChemCholesterol in VLDL [Mass/Vol]62 mg/dLHigh7 - 40 mg/dLRemisol ChemCO2 [Moles/Vol]30 mmol/UHrtbzj70 - 31 mmol/LRemisol ChemCreatinine [Mass/Vol]0.6 mg/dLNormal0.5 - 1.3 mg/dLRemisol EotkqYRM314 mL/min/1.73 j8Weppge >=59mL/min/1.73 m5Dlomfep ChemGlobulin (S) [Mass/Vol]2.4 g/dLNormal1.4 - 4.0 gm/dLRemisol ChemGlucose [Mass/Vol]102 mg/mRRrwtbc86 - 199 mg/dLRemisol Chem Lipase [Catalytic activity/Vol]13 U/RYugdbd05 - 58 unit/LRemisol ChemPotassium [Moles/Vol]4.4 mmol/LNormal3.5 - 5.3 mmol/LRemisol ChemProtein [Mass/Vol]7.1 g/dLNormal6.0 - 7.8 gm/dLRemisol ChemSodium [Moles/Vol]138 mmol/JSwmdxc888 - 145 mmol/LRemisol ChemTriglyceride [Mass/Vol]309 mg/dLHigh<=149mg/dLRemisol ChemTSH Qn1.11 m[IU]/LNormal0.34 - 5.60 mcIU/mLRemisol ChemUrea nitrogen [Mass/Vol]12 mg/dLNormal5 - 21 mg/dLRemisol ChemUrea nitrogen/Creatinine [Mass ratio]20 mg/mg Zenfgd39 - 20Remisol ChemCHEMISTRYOrdered By: Angy Rdz on 74-54-2106QeF3h (Bld) [Mass fraction]4.9 %Normal<=5.9%[facility] ChemAutoSSCMPon 60-46-1980Lijboch [Mass/Vol]4.7 g/dLNormal3.3-5.0[facility] HospitalComment on above: Performed By: #### [id number] #### [facility] [address], [place] [address]Apkjbud/Globulin (S) [Mass conc ratio]2.6Qdebzt8.1-2.2Fisher [facility] HospitalComment on above:Performed By: #### [id number] #### [facility] [address], [place] [address]DBX [Catalytic activity/Vol]78 Int._Unit/MSgjwti18-18KeklzoOhiohealth O'Bleness HospitalComment on above:Performed By: #### [id number] #### [facility] [address], [place] [address]COW No additional P-5'-P [Catalytic activity/Vol]26 Int._Unit/L Normal6-46[facility] HospitalComment on above:Performed By: #### [id number] #### [facility] [address], [place] [address]Mgmdm gap [Moles/Vol]8 mmol/LNormal6-16[facility] HospitalComment on above:Performed By: #### [id number] #### [facility] [address], [place] [address]TJD [Catalytic activity/Vol]17 Int._Unit/LNormal5-43[facility] HospitalComment on above:Performed By: #### [id number] #### [facility] [address], [place] [address]Xvfyihcho [Mass/Vol]0.6 mg/dLNormal0.0-1.1FMercy Memorial HospitalComment on above:Performed By: #### [id number] #### [facility] [address], [place] [address]Gdkzeav [Mass/Vol]9.7 mg/dLNormal8.9-11.1FMercy Memorial HospitalComment on above:Performed By: #### [id number] #### [facility] [address], [place] [address]Mibcvljn [Moles/Vol]104 mmol/SFvvhwx259-455KbqaitOhiohealth O'Bleness HospitalComment on above:Performed By: #### [id number] #### [facility] [address] [place] [address]TU9 [Moles/Vol]30 mmol/TWwjwsa06-46KfgpzvOhiohealth O'Bleness Hospital Comment on above:Performed By: #### [id number] #### [facility] [address], [place] [address]Rjnxpkfhoq [Mass/Vol]0.6 mg/dLNormal0.5-1.3FMercy Memorial HospitalComment on above:Performed By: #### [id number] #### [facility] [address], [place] [address]Urtyhofz (S) [Mass/Vol]2.4 g/dLNormal1.4-4.0[facility] HospitalComment on above:Performed By: #### [id number] #### [facility] [address], [place] [address]Qxohias [Mass/Vol]102 mg/eBZkijbg43-982PqyunzOhiohealth O'Bleness HospitalComment on above:Performed By: #### [id number] #### [facility] [address], [place] [address]Bgztekhov [Moles/Vol]4.4 mmol/LNormal3.5-5.3FMercy Memorial HospitalComment on above:Performed By: #### [id number] #### [facility] [address], [place] [address]Grrheqq [Mass/Vol]7.1 g/dLNormal6.0-7.8[facility]'Bleness HospitalComment on above:Performed By: #### [id number] #### [facility] [address] [place] [address]Endhbu [Moles/Vol]138 mmol/QDdqfbd554-053MtxnrtOhiohealth O'Bleness HospitalComment on above:Performed By: #### [id number] #### [facility] [address], [place] [address]Mplq nitrogen [Mass/Vol]12 mg/dLNormal5-21Ohio[facility] O'Bleness HospitalComment on above:Performed By: #### [id number] #### [facility] [address] [place] [address]Brml nitrogen/Creatinine [Mass ratio]20 No QqffjSozmxj81-90 [facility]leness HospitalComment on above:Performed By: #### [id number] #### [facility] [address] [place] [address]IKLQPOBWGBIymdmpu By: SYSTEM SYSTEM on 88-11-5539Fwykcinly/100 WBC (Bld)0.5 %Normal0.0 - 2.0 %Remisol HemeBasophils/Leukocytes Auto (Bld) [Pure # fraction]0.0 E9/LNormal0.0 - 0.2 E9/LRemisol HemeEosinophils (Bld) [#/Vol]0.1 E9/LNormal0.0 - 0.5 E9/LRemisol HemeEosinophils/100 WBC (Bld)1.1 %Normal0.0 - 8.0 %Remisol HemeErythrocyte distribution width (RBC) [Ratio]13.1 %Lrtqgy99.9 - 14.2 %Remisol HemeHematocrit (Bld) [Volume fraction]39.5 %Ewytzi83.0 - 46.0 % Remisol HemeHemoglobin (Bld) [Mass/Vol]13.8 g/uHXmbyud59.0 - 16.0 gm/dLRemisol HemeLymphocytes (Bld) [#/Vol]3.0 E9/LNormal1.0 - 4.0 E9/LRemisol Heme Lymphocytes/100 WBC (Bld)46.0 %Abfkrw80.0 - 50.0 %Remisol HemeMCH (RBC) [Entitic mass]32.4 pqItffcl22.0 - 34.0 pgRemisol HemeMCHC (RBC) [Mass/Vol]34.8 g/dL Knflym49.4 - 36.0 gm/dLRemisol HemeMCV (RBC) [Entitic vol]93.0 pLSzwtwh98.0 - 100.0 fLRemisol HemeMonocytes (Bld) [#/Vol]0.4 E9/LNormal0.2 - 1.0 E9/LRemisol HemeMonocytes/100 WBC (Bld)6.2 %Normal4.0 - 14.0 %Remisol HemeNeutrophils (Bld) [#/Vol]3.0 E9/LNormal2.0 - 7.5 E9/LRemisol HemeNeutrophils/100 WBC (Bld)46.2 % Rikdqx89.0 - 75.0 %Remisol HemePlatelet mean volume (Bld) [Entitic vol]8.7 fL Normal6.4 - 10.8 fLRemisol HemePlatelets (Bld) [#/Vol]254.0 E9/IXgjbuy391.0 - 500.0 E9/LRemisol HemeRBC (Bld) [#/Vol]4.3 E12/LNormal4.3 - 5.9 E12/LRemisol HemeWBC corrected for nucl RBC Auto (Bld) [#/Vol]6.5 E9/LNormal4.0 - 11.0 E9/L Remisol DnsuHovB8mqe 38-30-5369SkU7i (Bld) [Mass fraction]4.9 %Normal<=5.9Ohio[facility] O'Bleness HospitalComment on above:Performed By: #### [id number] #### [facility] [address], [place] [address]Hnzqda Levelon 89-86-6904Bjihmo [Catalytic activity/Vol]13 U/L Falijq38-51XhsjzsOhiohealth O'Bleness HospitalComment on above:Performed By: #### [id number] #### [facility] [address], [place] [address]Nalms Panelon 00-66-6416Uudpvhuvcwe [Mass/Vol]198 mg/dLNormal 120-200[facility] O'Bleness HospitalComment on above:Performed By: #### [id number] #### [facility] [address], [place] [address]Hcgnwfrnqay in HDL [Mass/Vol]37 mg/dLInvalid Interpretation CodeOhiohealth O'Bleness HospitalComment on above:Result Comment: '>= 60 LOW RISK' '<= 40 HIGH RISK'Performed By: #### [id number] #### [facility] [address], [place] [address]Riftdcyrxxh in LDL [Mass/Vol]141 mg/dLHigh<=129Ohio[facility] O'Bleness HospitalComment on above:Performed By: #### [id number] #### [facility] [address], [place] [address]Krekxrxmpnc in VLDL [Mass/Vol]62 mg/dLHigh7-40Ohio[facility] O'Bleness HospitalComment on above:Performed By: #### [id number] #### [facility] [address], [place] [address]Zorrlgdvcljg [Mass/Vol]309 mg/dLHigh<=149Ohio[facility] O'Bleness HospitalComment on above:Performed By: #### [id number] #### [facility] [address], [place] [address]KNJya 65-42-0307GFS Qn1.11 m[IU]/LNormal0.34-5.60[facility]'Bleness HospitalComment on above:Performed By: #### [id number] #### [facility] [address], [place] [address]oHIRlq 31-00-3798gERO721 mL/min/1.73 n1Ryguyh>=59Ohiohealth O'Bleness HospitalComment on above:Order Comment: Order added by Discern Expert. Performed By: #### [id number] #### [facility] [address], [place] [address]OZ Abdomen/Pelvis w/ Contraston 08-41-5635JB Abdomen/Pelvis w/ ContrastExam Date/Time: 06/29/2023 22:13 EDT Reason for Exam: [...] Contrast: Isovue 300 Contrast amount in ml's: 100NoMercy Health West HospitalCT Head or Brain w/o Contraston 36-57-7002UL Head or Brain w/o ContrastExam Date/Time: 06/29/2023 22:13 EDT Reason for Exam: [...] Pk Foley M.D. Transcribed by: KEE Technologist: ABIGAILLake County Memorial Hospital - WestDischarge Instructionson 73-80-1977Rblueupka Instructions [id number]#1.00TIFFTuscarawas Hospital Clinical Summaryon [id number] Clinical Summary [address] [address] ED Clinical Summary Person Information Name: SOCORRO JOSEPH [place] Age: 22 Years : 2000 Sex: Female Language: Nigerien PCP: Raquel Nolan MD Marital Status: Single [...] 06/30/2023 00:02:57 06/30/2023 00:02:57 06/30/2023 00:02:57 ADDRESS: [address] [place] [phone] PHYS DOC NOTES: MEDICAL INFORMATION: Prescriptions Given: New Medications [facility], [address] [place], [place] [id number], [phone] methocarbamol (Robaxin 500 mg Tab) 1 Tablets By Mouth 3 times a day for 3 Days. Refills: 0. naproxen (Naprosyn 500 mg Tab) 1 Tablets By Mouth 2 times a day as needed for pain. Refills: 0. Medications to Continue Taking That Have Changed [facility], [address] [place], [place] [id number], [phone] START: ondansetron (Zofran ODT 4 mg Tab-Dis) 1 Tablets By Mouth every 8 hours. Refills: 0. Other Medications START: ondansetron (Zofran ODT 4 mg Tab-Dis) 1 Tablets By Mouth every 8 hours as needed Nausea/Vomiting. Refills: 0. PATIENT EDUCATION INFORMATION: Instructions: Nausea and Vomiting, Adult, Owca-pt-Iqhq; General Headache Without Cause, Qdiy-uu-Dddr; Abdominal Pain, Adult, Cwzn-hi-Blex Follow up: With: Address: When: Raquel Nolan [place] [address] Business (1) In 3 days 07/02/2023 Comments: You can take the medications as prescribed as needed for pain. Please follow-up with your primary care doctor in the next 2 to 3 days for further evaluation management. Please return to the ED for any new or worsening symptoms. DIAGNOSIS: Abdominal pain, acute; Headache; N&V (nausea and vomiting)[facility] CenterED Patient Education Noteon 23-47-7221BW Patient Education Note Gastroenterology Nausea and Vomiting, [...] ? Low-calorie sports drinks. ? Eat bland, qfvq-ki-iqnuhq foods in small amounts as you are able, such as: ? Bananas. ? Applesauce. ? Rice. ? Low-fat (lean) meats. ? [place]. ? Crackers. ? Avoid drinking fluids that have a lot of sugar or caffeine in them. This includes energy drinks, sports drinks, and soda. ? Avoid alcohol. ? Avoid spicy or fatty foods. General instructions ? Take qudx-htf-iztfvei and prescription medicines only as told by your doctor. ? Drink enough fluid to keep your pee (urine) pale yellow. ? Wash your hands often with soap and water for at least 20 seconds. If you cannot use soap and water, use hand vibrating screen operator. ? Make sure that everyone in your [...] doctor about eating and drinking. ? Take wign-xmw-ysscdir and prescription medicines only as told by [...] Reviewed: 09/26/2021 Elsevier Patient Education ? 2022 [employer] Abdominal Pain, Adult Many things can cause belly (abdominal) pain. Most times, belly pain is not dangerous. Many cases of belly pain can be watched and treated at home. Sometimes, though, belly pain is serious. Your doctor will try to find the cause of your belly pain. Follow these instructions at home: Medicines ? Take hggl-tih-gputaav and prescription medicines only as told by [...] not hungry, or y (more content not included)...[facility] Patient Summaryon [id number] Patient Summary [place] [id number] Patient Discharge Instructions Person Information Name: SOCORRO JOSEPH Age: 22 Years Arrival Date: 06/29/2023 19:10:29 Discharge Diagnosis: Abdominal pain, acute; Headache; N&V (nausea and vomiting) Primary Care Physician: Raquel Nolan MD Provider Information Primary Provider: Amberly Whitehead DO [facility] Rn:None The exam and treatment you received in the Emergency Department were for an urgent problem and are not intended as complete care. It is important that you follow up with a doctor, nurse practitioner,or physician?s admin assistant for ongoing care. If your symptoms become worse or you do not improve as expected and you are unable to reach your usual health care provider, you should return to the Emergency Department. We are available 24 hours a day. ERIK SOCORRO Hemalatha has been given the following list of patient education materials, prescriptions and follow-up instructions: Follow-up Instructions: With: Address: When: Raquel Nolan [address] [place] [address] Business (1) In 3 days 07/02/2023 Comments: [...] Patient Education Materials: Nausea and Vomiting, Adult, Nyds-ew-Ikzh; General Headache Without Cause, Woof-wd-Uojy; Abdominal Pain, Adult, Yozv-xl-Nwxy A MESSAGE TO ALL PATIENTS REGARDING OPIOIDS PRESCRIPTION OPIOIDS: WHAT YOU NEED TO KNOW Prescription opioids can be used to help relieve mgcnlnfw-oa-oatgpl pain and are often prescribed following a [...] and have fewer risks and side effects. Optionsmay include: ? Pain relievers such as acetaminophen, [...] unused prescription opioids: Find your community drug take- back program or yourCy[employer]light[employer].rmWebroot mail-back program, or flush them down the toilet, follow (more content not included)...[facility] Prescriptions/Work Noteson 76-60-2649Jdxmnfwpsurvc/Work Notes [id number]#1.00TIFMansfield HospitalRAD - Preliminary Cat Scan Reporton [id number] - Preliminary Cat Scan [id number]#1.00TIFMansfield HospitalB hCG Qualon 68-97-1354Edpr HCG ( test) QlNegativeNormal [facility] HospitalComment on above:Performed By: #### [id number], 00967774, 2858133, 4999732, 16949038, 3531883 ####[facility] [address] [place], [place] [address]KWFck 25-11-1196Ruarr gap [Moles/Vol] 9 mmol/LNormal6-16[facility]'Bleness HospitalComment on above:Performed By: #### 1165632, 98978322, 8014537, 6839629, 54194754, 9155901 ####[facility] [address] [place], [place] [address]Rvpipnm [Mass/Vol]9.0 mg/dL Normal8.9-11.1FMercy Memorial HospitalComment on above:Performed By: #### 4956820, 94334645, 5675443, 3748560, 48180937, 3362022 ####[facility] [address] [place], [place] [address]Xokwwdwg [Moles/Vol]104 mmol/L Mnncjx213-267HiueqhOhiohealth O'Bleness HospitalComment on above:Performed By: #### 0123251, 75975153, 8530902, 2552657, 10101413, 0520356 ####[facility] [address] [place], [place] [address]IZ7 [Moles/Vol]27 mmol/LNormal 21-31[facility]'Bleness HospitalComment on above:Performed By: #### 8336414, 49162354, 9677315, 4015236, 33221331, 5823148 ####[facility] [address] [place], [place] [address]Kotxfshzmo [Mass/Vol]0.7 mg/dLNormal 0.5-1.3FMercy Memorial HospitalComment on above:Performed By: #### 5244899, 12238843, 3039515, 5584445, 85295575, 5827355 ####[facility] [address] [place], [place] [address]Wvxuefh [Mass/Vol]93 mg/dLNormal 55-199Ohio[facility]'Bleness HospitalComment on above:Performed By: #### 5741128, 63506507, 6195875, 6509711, 93600784, 3089722 ####[facility] [address] [place], [place] [address]Lolptawyp [Moles/Vol]3.7 mmol/LNormal 3.5-5.3FMercy Memorial HospitalComment on above:Performed By: #### 5020508, 32771997, 4921846, 6411051, 21260981, 3157063 ####[facility] [address] [place], [place] [address]Kvjqiv [Moles/Vol]136 mmol/LNormal 135-145Ohio[facility] O'Bleness HospitalComment on above:Performed By: #### 8759323, 08253647, 2488703, 2370339, 20382518, 4824735 ####[facility] [address] [place], [place] [address]Mput nitrogen [Mass/Vol]13 mg/dL Normal5-21[facility]'Bleness HospitalComment on above:Performed By: #### 6748793, 06998860, 9971719, 0478116, 33207940, 0978582 ####[facility] [address] [place], [place] [address]Mvqv nitrogen/Creatinine [Mass ratio]19 No DixuxWvuhhq07-66OxmhemOhiohealth O'Bleness HospitalComment on above: Performed By: #### 3085722, 26182780, 2020419, 2219137, 31629632, 7235520 ####[facility] [address] [place], [place] [address]NCS w/ Auto Diffon 42-12-8925Mgpbdjrpd/100 WBC (Bld)0.3 %Normal0.0-2.0[facility]leness HospitalComment on above:Order Comment: Per fidel Salter wait to poke until they try for an IV. hgx262 06/29/2023 21:16:35 EDTPerformed By: #### 9006265, 54404540, 7938571, 9122235, 80262390, 8160358 ####[facility] [address] [place] [address]Ndfhookhi/Leukocytes Auto (Bld) [Pure # fraction]0.0 E9/LNormal0.0-0.2FMercy Memorial HospitalComment on above: Order Comment: Per fidel Salter wait to poke until they try for an IV. azr859 06/29/2023 21:16:35 EDTPerformed By: #### 5857107, 27034446, 0346866, 2588992, 14902885, 5656788 ####[facility] [address] [place], [place] [address]Dvmafrrftxs (Bld) [#/Vol]0.1 E9/LNormal0.0-0.5FMercy Memorial HospitalComment on above:Order Comment: Per fidel Salter, wait to poke until they try for an IV. pxq438 06/29/2023 21:16:35 EDTPerformed By: #### 9638744, 50986692, 1684950, 3686987, 72828100, 4583872 ####[place] [address] [place], [place] [address]Tyksaedepsz/100 WBC (Bld)1.2 %Normal 0.0-8.0[facility]Bleness HospitalComment on above:Order Comment: Per fidel Salter, wait to poke until they try for an IV. apy413 06/29/2023 21:16:35 EDT Performed By: #### 9205507, 90327093, 2274952, 4757608, 74562828, 3504418 ####[place] [address] [place] [address] Erythrocyte distribution width (RBC) [Ratio]13.1 %Ecsywp06.9-14.2FMercy Memorial HospitalComment on above:Order Comment: Per fidel Salter wait to poke until they try for an IV. sep948 06/29/2023 21:16:35 EDTPerformed By: #### 5764795, 84264957, 8616602, 8830857, 81462794, 0180129 ####[place] [address] [place], [place] [address]Bqgdbsofxc (Bld) [Volume fraction] 39.6 %Relwxk56.0-46.0[facility]len[facility] HospitalComment on above:Order Comment: Per fidel Salter, wait to poke until they try for an IV. yps321 06/29/2023 21:16:35 EDTPerformed By: #### 7287485, 77892248, 3589470, 1865461, 93188534, 3223325 ####[facility] [address] [place] [address] Hemoglobin (Bld) [Mass/Vol]13.2 g/kUSutxpi98.0-16.0[facility] Comment on above:Order Comment: Per fidel Salter, wait to poke until they try for an IV. dat500 06/29/2023 21:16:35 EDTPerformed By: #### 4346164, 26279839, 5654973, 4240030, 86252350, 8390333 ####[facility] [address] [place], [place] [address]Gwdwhjvviny (Bld) [#/Vol]2.0 E9/L Normal1.0-4.0[facility] HospitalComment on above:Order Comment: Per fidel Salter, wait to poke until they try for an IV. ixh018 06/29/2023 21:16:35 EDT Performed By: #### 4035393, 24188601, 3388136, 7545175, 80387220, 7739180 ####[facility] [address] [place] [address] Lymphocytes/100 WBC (Bld)22.0 %Twzfvf75.0-50.0[facility] HospitalComment on above:Order Comment: Per fidel Salter wait to poke until they try for an IV. hmw776 06/29/2023 21:16:35 EDTPerformed By: #### 6740114, 09659588, 4227217, 0149629, 30138202, 5348642 ####[facility] [address] [place], [place] [address]UVJ (RBC) [Entitic mass]30.7 xoLdutqj45.0-34.0 [facility] HospitalComment on above:Order Comment: Per fidel Salter, wait to poke until they try for an IV. cmz725 06/29/2023 21:16:35 EDTPerformed By: #### 7277872, 10551313, 8078064, 6629013, 26773594, 7419505 ####[facility] [address] [place], [place] [address]YQMF (RBC) [Mass/Vol] 33.3 g/hFUacuwj73.4-36.0[facility] HospitalComment on above:Order Comment: Per fidel Salter, wait to poke until they try for an IV. pwp963 06/29/2023 21:16:35 EDTPerformed By: #### 5501200, 21332819, 9215045, 7735615, 39701487, 9513259 ####[facility] [address] [place], [place] [address]DAZ (RBC) [Entitic vol]91.9 iDAnvlxk34.0-100.0[facility] Comment on above:Order Comment: Per fidel Salter, wait to poke until they try for an IV. xrd305 06/29/2023 21:16:35 EDTPerformed By: #### 7749833, 30383351, 8494644, 8585103, 68217939, 5867939 ####[place] [address] [place], [place] [address]Xpjlhxdjm (Bld) [#/Vol]0.4 E9/LNormal 0.2-1.0[facility] HospitalComment on above:Order Comment: Per fidel Salter wait to poke until they try for an IV. dcg630 06/29/2023 21:16:35 EDT Performed By: #### 8482856, 26566960, 5138517, 0352120, 17003974, 7206734 ####[facility] [address] [place] [address] Neutrophils (Bld) [#/Vol]6.5 E9/LNormal2.0-7.5FMercy Memorial HospitalComment on above:Order Comment: Per fidel Salter wait to poke until they try for an IV. lzt696 06/29/2023 21:16:35 EDTPerformed By: #### 2623940, 56262776, 7371675, 8655352, 97488936, 3923236 ####[facility] [address] [place], [place] [address]Crzebscmcjg/100 WBC (Bld)71.9 %Ikpsbe73.0-75.0 [facility] HospitalComment on above:Order Comment: Per fidel Salter, wait to poke until they try for an IV. ssq589 06/29/2023 21:16:35 EDTPerformed By: #### 1772678, 10094785, 2974068, 4304460, 04131669, 4817658 ####[place] [address] [place], [place] [address]Ddemqbvw633.0 E9/L Owvrqn238.0-500.0[facility]len[facility] HospitalComment on above:Order Comment: Per fidel Salter, wait to poke until they try for an IV. bbi364 06/29/2023 21:16:35 EDT Performed By: #### 4679902, 09593782, 4847458, 7662387, 22809632, 9601977 ####[facility] [address] [place] [address] Platelet mean volume (Bld) [Entitic vol]8.2 fLNormal6.4-10.8[facility] HospitalComment on above:Order Comment: Per fidel Salter, wait to poke until they try for an IV. zex626 06/29/2023 21:16:35 EDTPerformed By: #### 3758417, 54808212, 3375066, 2487427, 86785170, 7828610 ####[facility] [address] [place], [place] [address]GVZ (Bld) [#/Vol]4.3 E12/LNormal 4.3-5.9[facility]len[facility] HospitalComment on above:Order Comment: Per fidel Salter, wait to poke until they try for an IV. elk081 06/29/2023 21:16:35 EDT Performed By: #### 8238266, 14570699, 2222783, 6958061, 68013089, 5655869 ####[facility] [address] [place], [place] [address]WIZ corrected for nucl RBC Auto (Bld) [#/Vol]9.0 E9/LNormal4.0-11.0[facility] HospitalComment on above:Order Comment: Per fidel Salter, wait to poke until they try for an IV. lpj315 06/29/2023 21:16:35 EDTPerformed By: #### 8921363, 87377530, 4422612, 6555171, 75314841, 7038696 ####[facility] [address] [place], [place] [address]UDEZYHBAZQuwitsj By: SYSTEM SYSTEM on 70-88-2362Jvnwxpb [Mass/Vol]4.3 g/dLNormal3.3 - 5.0 gm/dLRemisol Chem Albumin/Globulin [Mass ratio]2.0 {ratio}Normal1.1 - 2.2Remisol ChemALP [Catalytic activity/Vol]70 [iU]/rYbulid73 - 98 Int._Unit/LRemisol ChemALT No additional P-5'-P [Catalytic activity/Vol]29 [iU]/dNormal6 - 46 Int._Unit/L Remisol ChemAnion gap [Moles/Vol]9 mmol/LNormal6 - 16 mEq/LRemisol ChemAST [Catalytic activity/Vol]17 [iU]/dNormal5 - 43 Int._Unit/LRemisol ChemBilirubin [Mass/Vol]0.9 mg/dLNormal0.0 - 1.1 mg/dLRemisol ChemBilirubin.direct [Mass/Vol] 0.1 mg/dLNormal0.0 - 0.4 mg/dLRemisol ChemBilirubin.indirect [Mass or moles/Vol] 0.8 mg/dLNormal0.1 - 0.9 mg/dLRemisol ChemCalcium [Mass/Vol]9.0 mg/dLNormal8.9 - 11.1 mg/dLRemisol ChemChloride [Moles/Vol]104 mmol/UGdtnlv542 - 111 mmol/L Remisol ChemCO2 [Moles/Vol]27 mmol/HWirvck27 - 31 mmol/LRemisol ChemCreatinine [Mass/Vol]0.7 mg/dLNormal0.5 - 1.3 mg/dLRemisol JvjxxTFD648 mL/min/1.73 b8Dhrziz >=59mL/min/1.73 z3Kqjhptl ChemGlobulin (S) [Mass/Vol]2.1 g/dLNormal1.4 - 4.0 gm/dLRemisol ChemGlucose [Mass/Vol]93 mg/nHXgejgx27 - 199 mg/dLRemisol Chem Lipase [Catalytic activity/Vol]unit/LLow13 - 58 unit/LRemisol ChemPotassium [Moles/Vol]3.7 mmol/LNormal3.5 - 5.3 mmol/LRemisol ChemProtein [Mass/Vol]6.4 g/dLNormal6.0 - 7.8 gm/dLRemisol ChemSodium [Moles/Vol]136 mmol/DUgwgto889 - 145 mmol/LRemisol ChemUrea nitrogen [Mass/Vol]13 mg/dLNormal5 - 21 mg/dLRemisol ChemUrea nitrogen/Creatinine [Mass ratio]19 mg/tuZcgpyk36 - 20Remisol Chem Consent for Treatmenton 52-89-2440[place] for Treatment [id number]#1.00TIFFNormalFisher Jo Daviess Medical CenterED Note-Physicianon [id number] Note-PhysicianBasic Information Time Seen: vandana Mary Annandrew Palm 06/29/2023 20:05 Chief Complaint Pt. reports headache since wednesday and today associated with nuasea and abdominal pain. History of Present Illness Patient is a 22-year-old female with no past medical history presenting to the ED for evaluation ofheadache, in addition to nausea and abdominal pain. Patient states she has had tightness in her neck since Wednesday, wrapping around to the front of her head with some blurred vision in her left eye. Patient states today started having nausea vomiting in addition to left lower quadrant abdominal pain. Patient denies recent falls, trauma, fevers, chills, dizziness or lightheadedness. Denies previoushistory of headaches. Review of Systems A 10 [...] and Complexity of Problems Differential Diagnosis: [] [facility] Data External documents reviewed: [] My [...] ab pelvis does not show any acute intra- abdominal pathology. On reevaluation patient is feeling improved. [...] day(s), # 9 tab(s), Refills(s) 0, [facility], cm, 06/29/23 19:28:00 EDT, Height/Length Dosing, 82, kg, 06/29/23 19:28:00 EDT, Weight Dosing metoclopramide, 10 mg = 2 mL, Injection, IV Push, Once, Stop date 06/29/23 21:00:00 EDT, STAT, Start date 06/29/23 21:00:00 EDT, 06/29/23 21:00:00 EDT naproxen, 500 mg = 1 tab(s), Oral, BID, PRN for pain, # 20 tab(s), Refills(s) 0, Pharmacy: [facility], 175, cm, 06/29/23 19:28:00 EDT, Height/Length Dosing, 82, kg, 06/29/23 19:28:00 EDT, Weight Dosing ondansetron, 4 mg = 1 tab(s), Oral, q8hr, # 12 tab(s), Refills(s) 0, Pharmacy: [facility], 175, cm, 06/29/23 19:28:00 EDT, Height/Length Dosing, 82, kg, 06/29/23 19:28:00 EDT, Weight Dosing Sodium Chloride 0.9% intravenous solution, 1,000 mL, Soln-IV, IV, Once, Stop date 06/29/23 21:00:00EDT, STAT, Start date 06/29/23 21:00:00 EDT, Infuse over 61, minute(s) Basic Metabolic Panel Beta hCG Qual CBC w/ Auto Diff CT Abdomen/Pelvis w/ Contrast CT Head or Brain w/o Contrast eGFR Hepatic Function Panel Lipase Level UA with Cult Rfl (more content not included)...[facility] Comment on above:Result Comment: Electronically Signed By: Amberly Whitehead DO\.br\Date and Time Signed: 06/29/23 23:56 EDTHEMATOLOGYOrdered By: SYSTEM SYSTEM on [id number]/100 WBC (Bld)0.3 %Normal0.0 - 2.0 %Remisol Heme Basophils/Leukocytes Auto (Bld) [Pure # fraction]0.0 E9/LNormal0.0 - 0.2 E9/L Remisol HemeEosinophils (Bld) [#/Vol]0.1 E9/LNormal0.0 - 0.5 E9/LRemisol Heme Eosinophils/100 WBC (Bld)1.2 %Normal0.0 - 8.0 %Remisol HemeErythrocyte distribution width (RBC) [Ratio]13.1 %Qlqrrw17.9 - 14.2 %Remisol HemeHematocrit (Bld) [Volume fraction]39.6 %Nqyeaq64.0 - 46.0 %Remisol HemeHemoglobin (Bld) [Mass/Vol]13.2 g/hXYjkueo19.0 - 16.0 gm/dLRemisol HemeLymphocytes (Bld) [#/Vol] 2.0 E9/LNormal1.0 - 4.0 E9/LRemisol HemeLymphocytes/100 WBC (Bld)22.0 %Normal 14.0 - 50.0 %Remisol HemeMCH (RBC) [Entitic mass]30.7 pdHrsqxj12.0 - 34.0 pg Remisol HemeMCHC (RBC) [Mass/Vol]33.3 g/dMOigzad56.4 - 36.0 gm/dLRemisol HemeMCV (RBC) [Entitic vol]91.9 gCXbvhkg41.0 - 100.0 fLRemisol HemeMonocytes (Bld) [#/Vol]0.4 E9/LNormal0.2 - 1.0 E9/LRemisol HemeMonocytes/100 WBC (Bld)4.6 % Normal4.0 - 14.0 %Remisol HemeNeutrophils (Bld) [#/Vol]6.5 E9/LNormal2.0 - 7.5 E9/LRemisol HemeNeutrophils/100 WBC (Bld)71.9 %Qchiwr47.0 - 75.0 %Remisol Heme Ugnqkoxy635.0 E9/ZUjxolb309.0 - 500.0 E9/LRemisol HemePlatelet mean volume (Bld) [Entitic vol]8.2 fLNormal6.4 - 10.8 fLRemisol HemeRBC (Bld) [#/Vol]4.3 E12/L Normal4.3 - 5.9 E12/LRemisol HemeWBC corrected for nucl RBC Auto (Bld) [#/Vol] 9.0 E9/LNormal4.0 - 11.0 E9/LRemisol HemeHep Func Panelon [id number] [Mass/Vol]4.3 g/dLNormal3.3-5.0[facility] HospitalComment on above: Performed By: #### 6359618, 68459227, 1604671, 5004032, 74135131, 5737329 ####Yonas [facility] [address] [place] [address] Albumin/Globulin (S) [Mass conc ratio]2.3Aestum7.1-2.2FMercy Memorial HospitalComment on above:Performed By: #### 2996573, 65305993, 7112910, 4647248, 13274289, 8854546 ####[address] [address]HRH [Catalytic activity/Vol]70 Int._Unit/EAhrlrl87-68VhvdpoOhiohealth O'Bleness HospitalComment on above:Performed By: #### 2190901, 82353073, 6752347, 0191552, 35212504, 7059195 ####[address] [address]YYM No additional P-5'-P [Catalytic activity/Vol]29 Int._Unit/LNormal6-46Ohio[facility]len[facility] HospitalComment on above:Performed By: #### 7784109, 67161982, 5818958, 0321497, 17426792, 4454636 ####[address] [address]FLO [Catalytic activity/Vol]17 Int._Unit/LNormal5-43[facility] Comment on above:Performed By: #### 6526497, 90529280, 3099327, 6284665, 69854460, 6764212 ####[address] [address]Xgwfdxbhp [Mass/Vol]0.9 mg/dLNormal0.0-1.1FMercy Memorial HospitalComment on above:Performed By: #### 0448225, 96541968, 8075073, 4736448, 56749250, 5929928 ####[address] [address]Hectkppxe.direct [Mass/Vol]0.1 mg/dLNormal0.0-0.4 [facility] HospitalComment on above:Performed By: #### 4706631, 45755158, 4885459, 2410667, 53125959, 9595278 ####[facility] [address] [place], [place] [address]Vfbzdhbdh.indirect [Mass or moles/Vol]0.8 mg/dLNormal0.1-0.9[facility] HospitalComment on above: Performed By: #### 4716989, 05895437, 5385936, 1994018, 65651759, 2321940 ####[address] [address] Globulin (S) [Mass/Vol]2.1 g/dLNormal1.4-4.0[facility] HospitalComment on above:Performed By: #### 6550955, 30340122, 6559711, 6950725, 33293834, 9427880 ####[address] [address]Agnwbny [Mass/Vol]6.4 g/dLNormal6.0-7.8[facility] HospitalComment on above:Performed By: #### 5678981, 00270301, 4743122, 1648484, 84740652, 5635020 ####[address] [address]Eqvgso Levelon 23-70-9379Vekczg [Catalytic activity/Vol]U/EXbj60-99NycyeuOhiohealth O'Bleness HospitalComment on above:Performed By: #### 7124867, 83112281, 7609187, 4367183, 65622842, 8791738 ####[address] [address]YQNIMQIQJwssose By: Linh Wright on 64-51-8003Gaxc HCG ( test) QlNegative (06/29/23 9:29 PM)NormalMEM[facility]IAL [facility] Man SeroUA with Cult Rflxon 31-05-4062Jwefc (U) Light-YellowNormalYellowOhiohealth O'Bleness HospitalComment on above:Result Comment: Microscopic readings are only performed on those samples that meet specific criteria set forth by [facility].Performed By: #### [id number] ####[address], [id number] (U) [Mass/Vol]NegativeNormalNegativeOhiohealth O'Bleness HospitalComment on above:Performed By: #### [id number] ####[address], KG[address]Brpjzjl Ql (U)Negative NormalNegativeOhiohealth O'Bleness HospitalComment on above:Performed By: #### [id number] ####[address], [place] [address]GA BloodNegativeNormalNegativeOhiohealth O'Bleness HospitalComment on above: Performed By: #### [id number] ####[address], [id number] BacteriaTraceNormalTraceOhiohealth O'Bleness HospitalComment on above:Performed By: #### [id number] ####[address], [place]RR ClarityTurbidAbnormalClear [facility] HospitalComment on above:Performed By: #### [id number] ####[address], ST32[address]QI Leuk EstNegativeNormalNegPeoples HospitalComment on above: Performed By: #### [id number] ####[address], [place]EF MucousTraceNormalNegativeOhiohealth O'Bleness HospitalComment on above:Performed By: #### [id number] ####[address], [id number] NitriteNegativeNormal NegativeOhiohealth O'Bleness HospitalComment on above:Performed By: #### [id number] ####[address], [place] [address]CH pH5.5Invalid Interpretation Code5.0-9.0[facility] Comment on above:Performed By: #### [id number] ####[place] [address] [place] [facility], [id number] ProteinNegativeNormalNegativeOhiohealth O'Bleness HospitalComment on above:Performed By: #### [id number] ####[place] [address] [place] [facility], [place]SW RBC0-3Normal 0-3Fisher [facility] Memorial HospitalComment on above:Performed By: #### [id number] ####[address], [id number] Spec Grav1.017Invalid Interpretation Code1.005-1.030[facility] Comment on above:Performed By: #### [id number] ####[address], [place]GD Squam Epithelial>81Acscjber3-4 [facility] HospitalComment on above:Performed By: #### [id number] ####[address], [id number] UrobilinogenNegativeNormalNegativeOhiohealth O'Bleness HospitalComment on above: Performed By: #### [id number] ####[address], [place]Tirnhnmtvqax (U) [Mass/Vol]NegativeNormalNegative [facility]len[facility] HospitalComment on above:Performed By: #### [id number] ####[address], [id number] Spec DescClean CatchNormalOhiohealth O'Bleness HospitalComment on above:Performed By: #### [id number] ####[address], TO[address]DTBDAIXKEIWzcyxvp By: SYSTEM SYSTEM on 08-30-8584Nsssw (U) Light-Yellow 1 (06/29/23 9:34 PM)NormalYellowFT UA Auto SSComment on above:Interpretive Data: Microscopic readings are only performed on those samples that meet specific criteria set forth by [facility].Glucose (U) [Mass/Vol]NegativeNormalNegativemg/dLMEMORIAL H[facility] UA Auto SSKetones Ql (U)NegativeNormal Negativemg/dLFT UA Auto SSUA BacteriaTrace graded/HPFNormalTracegraded/HPFFT UA Auto SSUA BloodNegativeNormalNegativemg/dLMEMORIAL [facility] UA Auto SSUA ClarityTurbid *ABN* (06/29/23 9:34 PM)Invalid Interpretation CodeClearFCLEVELAND AREA HOSPITAL [facility] UA Auto SSUA Leuk Est NegativeNormalNegativeLeu/uLFT UA Auto SSUA MucousTrace graded/LPFNormal Negativegraded/LPFFTMC UA Auto SSUA NitriteNegativeNormalNegativemg/dLMEMORIAL [facility] UA Auto SSUA pH5.5 *NA* (06/29/23 9:34 PM)Invalid Interpretation Code5.0 - 9.0[facility] UA Auto SSUA Protein NegativeNormalNegativemg/dLMEMORIAL [facility] UA Auto SSUA RBC0-3 graded/HPFNormal 0-3graded/HPFMEMORIAL HOSP[facility] UA Auto SSUA Spec Grav1.017 *NA* (06/29/23 9:34 PM)Invalid Interpretation Code1.005 - 1.030FT UA Auto SSUA Squam Epithelial>10 graded/HPFInvalid Interpretation Code0-2graded/HPFFT UA Auto SS UA UrobilinogenNegativeNormalNegativemg/dLMEMORIAL [facility] UA Auto SSUrobilinogen (U) [Mass/Vol]NegativeNormalNegativemg/dLMEMORIAL HOS[facility] UA Auto SSURINALYSISOrdered By: Amberly Whitehead on 57-87-1423RL Spec DescClean Catch (06/29/23 9:34 PM)NormalMEMORIAL [facility] UA Auto SS eGFRon 91-83-0127eGRR100 mL/min/1.73 f1Xbanij>=59Ohio[facility] O'Bleness HospitalComment on above:Order Comment: Order added by Discern Expert.Performed By: #### 1630164, 91930767, 0633777, 8350425, 31281750, 4242261 ####Branham Regis [address] [address]Psyb Diffon 01-78-4348Zvggewvhf/100 WBC (Bld)0.6 %Normal0.0-2.0[facility] HospitalComment on above:Order Comment: Order Added by Discern Expert.Performed By: #### 69632317, 5244323, 2532219, 2633745, 7158564, 45140992, 0235925 ####Branham [address] [address] Basophils/Leukocytes Auto (Bld) [Pure # fraction]0.0 E9/LNormal0.0-0.2FMercy Memorial HospitalComment on above:Order Comment: Order Added by Discern Expert.Performed By: #### 91721544, 1667095, 0249899, 6399789, 5665683, 86257965, 8259513 ####[address] [address]Zvbigkszvwo/100 WBC (Bld)0.8 %Normal0.0-8.0[facility] HospitalComment on above:Order Comment: Order Added by Discern Expert. Performed By: #### 66856260, 2683433, 5715554, 1494110, 5962591, 61353337, 4475211 ####Branham [address] [address]Pidvaieawqy/Leukocytes Auto (Bld) [Pure # fraction]0.1 E9/LNormal0.0-0.5 [facility] HospitalComment on above:Order Comment: Order Added by Discern Expert.Performed By: #### 99865138, 0687244, 2380305, 2534486, 6885699, 00021634, 2012567 ####[address] [address]Sjzldjicxel/100 WBC (Bld)27.0 %Aanewe70.0-50.0[facility] HospitalComment on above:Order Comment: Order Added by Discern Expert. Performed By: #### 95286068, 5653934, 8736466, 9757139, 1960574, 99916795, 7007100 ####[facility] [address] [place], [place] [address]Datiaebkdch/Leukocytes Auto (Bld) [Pure # fraction]1.8 E9/LNormal1.0-4.0 [facility] HospitalComment on above:Order Comment: Order Added by Discern Expert.Performed By: #### 73624051, 2504126, 9120269, 5438660, 8940425, 38477974, 5604825 ####[address] [address]Engqunvaw/100 WBC (Bld)7.8 %Normal4.0-14.0[facility] HospitalComment on above:Order Comment: Order Added by Discern Expert. Performed By: #### 76789387, 2401914, 1569806, 8593285, 3215210, 55287299, 9648465 ####[address] [address]Qtkwkkcli/Leukocytes Auto (Bld) [Pure # fraction]0.5 E9/LNormal0.2-1.0 [facility] HospitalComment on above:Order Comment: Order Added by Discern Expert.Performed By: #### 97998432, 1732233, 8820138, 6393281, 9795973, 11053271, 3084279 ####[address] [address]Xtmrkehtfdk/100 WBC (Bld)63.8 %Zyroqf26.0-75.0[facility] HospitalComment on above:Order Comment: Order Added by Discern Expert. Performed By: #### 29049993, 8643027, 1508240, 5469283, 2838787, 87364698, 6912947 ####[place] [address] [place], [place] [address]Nxsfftftpkw/Leukocytes Auto (Bld) [Pure # fraction]4.3 E9/LNormal2.0-7.5 [facility] HospitalComment on above:Order Comment: Order Added by Discern Expert.Performed By: #### 96019513, 8610348, 9141145, 2858705, 2495407, 67746530, 3462041 ####[place] [address] [place], [place] [address]ZAUuv 37-68-6444Qjtzantady [Mass/Vol]0.6 mg/dLNormal0.5-1.3 [facility] HospitalComment on above:Performed By: #### 60312593, 9305764, 1936795, 9843325, 0454234, 42966690, 4128026 ####[place] [address] [place], [place] [address]Tsra nitrogen [Mass/Vol]19 mg/dLNormal5-21[facility] HospitalComment on above:Performed By: #### 58404016, 7541350, 4001740, 9944333, 8779919, 59859825, 3444130 ####[address] [address]Mnfj nitrogen/Creatinine [Mass ratio]32 No KsxsyPllb74-64BxngukOhiohealth O'Bleness Hospital Comment on above:Performed By: #### 37021727, 6633886, 4554828, 5367012, 6659404, 72162777, 1728636 ####[place] [address] [place], [place] [address]Tfpld gap [Moles/Vol]8 mmol/LNormal6-16[facility] HospitalComment on above:Performed By: #### 61647203, 4752948, 6782747, 8822824, 1177196, 37798265, 5468744 ####[place] [address] [place], [place] [address]Kguongx [Mass/Vol]8.5 mg/dLLow8.9-11.1FMercy Memorial HospitalComment on above:Performed By: #### 48688902, 6240633, 3598055, 4682882, 5462059, 52881677, 5907234 ####Branham [facility] [address] [place], [place] [address]Filybfzf [Moles/Vol]107 mmol/TUuerlx686-832EcjzxuOhiohealth O'Bleness HospitalComment on above:Performed By: #### 79978399, 7970280, 2291411, 6549188, 9804856, 05894164, 0340303 ####Branham [place] [address] [place], [place] [address]IK8 [Moles/Vol]25 mmol/QJwoebu59-34AuzxjaOhiohealth O'Bleness HospitalComment on above:Performed By: #### 79035399, 7863558, 6993947, 3012156, 5494726, 46460443, 9081359 ####[address] [address]Kwxcyht [Mass/Vol]93 mg/nYNimbkm88-274EenftwOhiohealth O'Bleness HospitalComment on above:Result Comment: If this glucose result represents a fasting glucose, interpretation should refer tothe following reference range: 55-99 mg/dLPerformed By: #### 71148015, 5011708, 8998504, 2431523, 2350740, 01665943, 6442408 ####Branham [address] [address]Brfgasmbk [Moles/Vol]3.4 mmol/LLow3.5-5.3FMercy Memorial HospitalComment on above:Performed By: #### 13646446, 7864656, 9092520, 8631542, 5550649, 18863404, 8879181 ####Branham [place] [address] [place], [place] [address]Tmhffi [Moles/Vol]137 mmol/LNormal 135-145[facility]len[facility] HospitalComment on above:Performed By: #### 40396675, 6660757, 2047931, 1793885, 5101566, 29034935, 0561066 ####[address] [address]KWT w/ Auto Diffon 11-14-2023 Erythrocyte distribution width (RBC) [Ratio]13.0 %Xoufqw62.9-14.2FMercy Memorial HospitalComment on above:Performed By: #### 77659819, 6826439, 9163162, 5512952, 9724307, 05757665, 2804639 ####Yonas [address] [address]Qrvahahaof (Bld) [Volume fraction]41.4 %Normal 34.0-46.0[facility]len[facility] HospitalComment on above:Performed By: #### 21565564, 6902042, 5105790, 3154903, 9834115, 98338201, 6421422 ####Yonas [address] [address]Tcgiqovxvs (Bld) [Mass/Vol]13.9 g/aBHexwab31.0-16.0[facility] HospitalComment on above: Performed By: #### 16213601, 6426045, 3208798, 7333952, 2539581, 74992208, 3579513 ####Yonas [address] [address]BPZ (RBC) [Entitic mass]31.0 nqHbolzp05.0-34.0[facility] Comment on above:Performed By: #### 00777555, 5538318, 2497863, 1379297, 1843578, 05572812, 4109832 ####Yonas [address] [address]HLVT (RBC) [Mass/Vol]33.6 g/lTFlsgen28.4-36.0[facility] HospitalComment on above:Performed By: #### 87902653, 0563786, 2352609, 9794292, 6485742, 02773430, 1546873 ####Yonas [address] [address]OFJ (RBC) [Entitic vol]92.3 zZYhgovf86.0-100.0 [facility] HospitalComment on above:Performed By: #### 01634817, 1070890, 7870793, 8224584, 1230488, 31719477, 0048644 ####[address] [address]Thwkdqis mean volume (Bld) [Entitic vol]9.7 fLNormal6.4-10.8[facility]len[facility] HospitalComment on above: Performed By: #### 90068752, 1750706, 8508238, 0650421, 1543980, 69617025, 2243650 ####[address] [address]Nxneinrxz (Bld) [#/Vol]254.0 E9/SYnshbf235.0-500.0[facility] HospitalComment on above:Performed By: #### 58685251, 0557526, 8199129, 6268430, 6865126, 35012734, 6039151 ####[address] [address]JLN (Bld) [#/Vol]4.5 E12/LNormal4.3-5.9[facility] HospitalComment on above:Performed By: #### 02290575, 1424961, 1559289, 9606071, 8284502, 49243175, 4189496 ####[address] [address]YWW corrected for nucl RBC Auto (Bld) [#/Vol]6.7 E9/LNormal 4.0-11.0[facility] HospitalComment on above:Performed By: #### 82034436, 2867765, 7462874, 7537551, 5020519, 42878692, 1255329 ####[address] [address]BTQDMCESVUdmwkkc By: SYSTEM SYSTEM on 69-23-0096Oxqusee [Mass/Vol]3.9 g/dLNormal3.3 - 5.0 gm/dLFTMC Remisol Albumin/Globulin [Mass ratio]1.4 {ratio}Normal1.1 - 2.2FTMC RemisolALP [Catalytic activity/Vol]86 [iU]/aPnbcva20 - 98 Int._Unit/LFTMC RemisolALT No additional P-5'-P [Catalytic activity/Vol]18 [iU]/dNormal6 - 46 Int._Unit/LFTMC RemisolAnion gap [Moles/Vol]8 mmol/LNormal6 - 16 mEq/LFTMC RemisolAST [Catalytic activity/Vol]14 [iU]/dNormal5 - 43 Int._Unit/LFTMC RemisolBilirubin [Mass/Vol] 1.0 mg/dLNormal0.0 - 1.1 mg/dLFTMC RemisolBilirubin.direct [Mass/Vol]0.2 mg/dL Normal0.1 - 0.4 mg/dLFTMC RemisolBilirubin.indirect [Mass or moles/Vol]0.8 mg/dL Normal0.1 - 0.9 mg/dLFTMC RemisolCalcium [Mass/Vol]8.5 mg/dLLow8.9 - 11.1 mg/dL [facility] RemisolChloride [Moles/Vol]107 mmol/MZfbcsi086 - 111 mmol/LFTMC RemisolCO2 [Moles/Vol]25 mmol/PApoyxu18 - 31 mmol/LFTMC RemisolCreatinine [Mass/Vol]0.6 mg/dLNormal0.5 - 1.3 mg/dLFTMC RemisolGFR/1.73 sq M.predicted among non-blacks MDRD (S/P/Bld) [Vol rate/Area]128 mL/min/1.73 u5Bsbazr>=59mL/min/1.73 m2FTMC Chem SComment on above:Interpretive Data: Chronic kidney disease could be indicated at eGFR's of less than 60 mL/min/1.73m2. Kidney failure is indicated at less than 15 mL/min/1.73m2.Globulin (S) [Mass/Vol]2.8 g/dLNormal1.4 - 4.0 gm/dLFTMC RemisolGlucose [Mass/Vol]93 mg/eOFluqbf28 - 199 mg/dLMEM[facility] Remisol Comment on above:Interpretive Data: If this glucose result represents a fasting glucose, interpretation should referto the following reference range: 55-99 mg/dLLipase [Catalytic activity/Vol]22 U/SIondur94 - 58 unit/LFTMC Remisol Potassium [Moles/Vol]3.4 mmol/LLow3.5 - 5.3 mmol/LFTMC RemisolProtein [Mass/Vol] 6.7 g/dLNormal6.0 - 7.8 gm/dLMEMORIAL HOS[facility] RemisolSodium [Moles/Vol]137 mmol/UDvhqxg775 - 145 mmol/LFTMC RemisolTroponin I.cardiac [Mass/Vol]pg/mLLow10.10 - 27.10 pg/mL [facility] RemisolComment on above:Interpretive Data: The 95% CI (Confidence Interval) PPV (Positive Predictive Value) for myocardial infarction in females is 38 pg/mL, in males 51 pg/mL. The results should be used in conjunction withclinical conditions of myocardial infarction. (Access High Sensitivity Troponin I Instructions For Use, Lianna Teut[place]olis, November 2017)Urea nitrogen [Mass/Vol]19 mg/dLNormal5 - 21 mg/dLMEM[facility]IAL H[facility] RemisolUrea nitrogen/Creatinine [Mass ratio]32 mg/nuMxhd09 - 20[facility] RemisolConsent for Treatmenton 86-37-6391Obtnqeq for Treatment [id number]#1.00TIFMansfield HospitalDischarge Instructionson 69-18-1818Hpbpnxuhr Instructions [id number]#1.00TIFKettering Health Clinical Summaryon [id number] Clinical Summary [address] [address] ED Clinical Summary Person Information Name: SOCORRO JOSEPH [place] Age: 22 Years : 2000 Sex: Female Language: Nigerien PCP: Lilliam Gonzalez MD Marital Status: Single [...] 02/16/2023 07:09:21 02/16/2023 07:09:21 02/16/2023 07:09:21 ADDRESS: [address] [place] [id number] PHYS DOC NOTES: MEDICAL INFORMATION: Prescriptions Given: New Medications [facility], [address] [place], [place] [id number], [phone] ondansetron (Zofran ODT 4 mg Tab-Dis) 1 Tablets By Mouth every 8 hours as needed Nausea/Vomiting. Refills: 0. PATIENT EDUCATION INFORMATION: Instructions: Nausea and Vomiting, Adult Follow up: With: Address: When: Lilliam Gonzalez [address] [place] [address] [employer] ([employer] In 3 days DIAGNOSIS: Diarrhea; N&V (nausea and vomiting); SyncopeNormalFisher Jo Daviess Medical CenterED Note-Physicianon [id number] Note-PhysicianBasic Information Time Seen: Jacinto Mendiola DOElizabeth 02/16/2023 05:06 History of Present Illness HPI: Patient is a 22-year-old female with past medical history of depression who presents the ED for nausea, vomiting, and syncope. Patient states that yesterday she developed intense nausea and vomiting as well as diarrhea. She has been unable to hold down any foods or liquids since that time. Shehas had chills but no fever that she [...] and Complexity of Problems Differential Diagnosis: [] [facility] Data External documents reviewed: N/A My [...] We discussed the plan of discharge with aprescription for Zofran as well as a work [...] Information Lilliam Gonzalez In 3 days [address] [place] [address]- Business (1) Additional Instructions: Patient Education Nausea and [...] in household: No. Smoker in household: No. Injuries/Abuse/Neglect in household: No. Feels unsafe at home: No. Safe place to go: Yes. Agency(s)/Others notified: No. Family/Friends availablefor support: Yes. Concern for family members at home: No. Major illness in household: No. Financialconcerns: No., 07/18/2019 Nutrition/Health Regular, 07/18/2019 Sexual Straight or heterosexual Sexual orientation:. Sexually active: Yes., 11/01/2017 Substance Abuse - Isaac (more content not included)...[facility] WestComment on above:Result Comment: Electronically Signed By: Jacinto Mendiola DO\.br\Date and Time Signed: 02/16/23 06:54 PAULETTE Patient Education Noteon [id number] Patient Education NoteGastroenterology Nausea and Vomiting, Adult Nausea is the [...] added (diluted fruit juice). ? Eat bland, mvdc-zt-pzspzn foods in small amounts as you are able. These foods include bananas, applesauce, rice, lean meats, toast, and crackers. ? Avoid fluids that contain a lot of sugar or caffeine, such as energy drinks, sports drinks, and soda. ? Avoid alcohol. ? Avoid spicy or fatty foods. General instructions ? Take qdlh-ahf-tachesp and prescription medicines only as told by your health care provider. ? Drink enough fluid to keep your urine pale yellow. ? Wash your hands often using soap and water for at least 20 seconds. If soap and water are not available, use hand vibrating screen operator. ? Make sure that everyone in your [...] and drinking to prevent dehydration. ? Take ijwd-rng-gakxtyk and prescription medicines only as told by [...] provider. Document Revised: 09/26/2021 Document Reviewed: 09/26/2021 [email or web address] Patient Education ? 2022 [employer].[facility] ED Patient Summaryon [id number] Patient Summary [place] [id number] Patient Discharge Instructions Person Information Name: SOCORRO JOSEPH Age: 22 Years Arrival Date: 02/16/2023 05:05:22 Discharge Diagnosis: Diarrhea; N&V (nausea and vomiting); Syncope Primary Care Physician: Lilliam Gonzalez MD Provider Information Primary Provider: Jacinto Mendiola DO [facility] Rn:None The exam and treatment you received in the Emergency Department were for an urgent problem and are not intended as complete care. It is important that you follow up with a doctor, nurse practitioner,or physician?s admin assistant for ongoing care. If your symptoms [...] Address: When: Lilliam Gonzalez [address] [place] [id number] Business (1) In 3 days In the event that this physician does not participate in your insurance network, please consult with your insurance company to find a nearby participating provider. Patient Education Materials: Nausea and Vomiting, Adult A MESSAGE TO ALL PATIENTS REGARDING OPIOIDS PRESCRIPTION OPIOIDS: WHAT YOU NEED TO KNOW Prescription opioids can be used to help relieve ykngbpyt-kd-yulfba pain and are often prescribed following a [...] and have fewer risks and side effects. Optionsmay include: ? Pain relievers such as acetaminophen, [...] unused prescription opioids: Find your community drug take- back program or [employer] mail-back program, or flush them down the toilet, following guidance from the Food and Drug Administration (www.fda.gov/Drugs/ResourcesForYou). ? Visit www.cdc.gov/drugoverdose to learn about the risks of opioids abuse and overdose. ? If you believe you may be struggling with addiction, tell your health health care coach and ask for guidance or call [facility]?S National Helpline at 8-843-356-GLOP. o [facility] (more content not included)...[facility] HEMATOLOGYOrdered By: SYSTEM SYSTEM on 76-31-1797Dljqznkxp/100 WBC (Bld)0.6 % Normal0.0 - 2.0 %[facility] HemeAutoSSBasophils/Leukocytes Auto (Bld) [Pure # fraction]0.0 E9/LNormal0.0 - 0.2 E9/LFTMC HemeAutoSSEosinophils/100 WBC (Bld)0.8 %Normal0.0 - 8.0 %[facility] HemeAutoSSEosinophils/Leukocytes Auto (Bld) [Pure # fraction]0.1 E9/LNormal0.0 - 0.5 E9/LFTMC HemeAutoSSLymphocytes/100 WBC (Bld) 27.0 %Tcupjo10.0 - 50.0 %[facility] HemeAutoSSLymphocytes/Leukocytes Auto (Bld) [Pure # fraction]1.8 E9/LNormal1.0 - 4.0 E9/LFTMC HemeAutoSSMonocytes/100 WBC (Bld)7.8 %Normal4.0 - 14.0 %[facility] HemeAutoSSMonocytes/Leukocytes Auto (Bld) [Pure # fraction]0.5 E9/LNormal0.2 - 1.0 E9/LFTMC HemeAutoSSNeutrophils/100 WBC (Bld) 63.8 %Uhvchf20.0 - 75.0 %[facility] HemeAutoSSNeutrophils/Leukocytes Auto (Bld) [Pure # fraction]4.3 E9/LNormal2.0 - 7.5 E9/LFTMC HemeAutoSSHEMATOLOGYOrdered By: Case Aponte on 50-41-0540Ylggonulfbd distribution width (RBC) [Ratio]13.0 % Bumbjn24.9 - 14.2 %[facility] HemeAutoSSHematocrit (Bld) [Volume fraction]41.4 %Normal 34.0 - 46.0 %[facility] HemeAutoSSHemoglobin (Bld) [Mass/Vol]13.9 g/xMNlrpls13.0 - 16.0 gm/dLFTMC HemeAutoSSMCH (RBC) [Entitic mass]31.0 tgHmozzm45.0 - 34.0 pgFTMC HemeAutoSSMCHC (RBC) [Mass/Vol]33.6 g/xDGuquse52.4 - 36.0 gm/dLFTMC HemeAutoSS MCV (RBC) [Entitic vol]92.3 cKBlmman81.0 - 100.0 fLFTMC HemeAutoSSPlatelet mean volume (Bld) [Entitic vol]9.7 fLNormal6.4 - 10.8 fLFTMC HemeAutoSSPlatelets (Bld) [#/Vol]254.0 E9/JPsvpif513.0 - 500.0 E9/L[facility] HemeAutoSSRBC (Bld) [#/Vol] 4.5 E12/LNormal4.3 - 5.9 E12/LFT[facility] HemeAutoSSWBC corrected for nucl RBC Auto (Bld) [#/Vol]6.7 E9/LNormal4.0 - 11.0 E9/L[facility] HemeAutoSSHep Func Panelon 07-72-8686Zwdvbtq [Mass/Vol]3.9 g/dLNormal3.3-5.0[facility] Comment on above:Performed By: #### [id number], 3324953, 8860467, 4582016, 1362814, 95602275, 4998339 ####[address] [address]Axjcvfm/Globulin (S) [Mass conc ratio]1.4Pcsnfy8.1-2.2 [facility] HospitalComment on above:Performed By: #### [id number], 3260054, 5842563, 7314613, 1197195, 69521000, 3822087 ####[address] [address]OBZ [Catalytic activity/Vol]86 Int._Unit/BGtaegs81-29IwzoybOhiohealth O'Bleness HospitalComment on above:Performed By: #### [id number], 8098758, 6313394, 9577292, 2972318, 04346952, 9508195 ####[address] [address]UGY No additional P-5'-P [Catalytic activity/Vol]18 Int._Unit/LNormal6-46[facility] HospitalComment on above:Performed By: #### [id number], 7239485, 0241958, 1815215, 0560580, 75776248, 3735575 ####[address] [address]AYL [Catalytic activity/Vol]14 Int._Unit/LNormal5-43[facility] HospitalComment on above:Performed By: #### [id number], 9750506, 7288648, 1151806, 8365911, 64643855, 7049382 ####[address] [address]Dphrcdkhe [Mass/Vol]1.0 mg/dLNormal 0.0-1.1FMercy Memorial HospitalComment on above:Performed By: #### [id number], 7157252, 1031486, 9734889, 5520034, 72537304, 4169862 ####Yonas [address] [address]Shohzzlcq.direct [Mass/Vol]0.2 mg/dLNormal0.1-0.4FMercy Memorial HospitalComment on above:Performed By: #### 82118885, 7284948, 2828845, 2115824, 2619380, 52696954, 5410252 ####Yonas [address] [address] Bilirubin.indirect [Mass or moles/Vol]0.8 mg/dLNormal0.1-0.9[facility] HospitalComment on above:Performed By: #### 28739178, 1107247, 8575960, 2367066, 6336644, 25436001, 3792405 ####Yonas [address] [address]Fxlzfvny (S) [Mass/Vol]2.8 g/dLNormal1.4-4.0[facility] HospitalComment on above:Performed By: #### 45872074, 2577304, 7998003, 5717071, 9719599, 96087166, 6812575 ####Yonas [address] [address]Xbhtuyl [Mass/Vol]6.7 g/dLNormal6.0-7.8[facility] HospitalComment on above:Performed By: #### 43373154, 8528902, 0885338, 5249313, 2365300, 80248920, 7643373 ####Yonas [address] [address]Rzueub Levelon 99-71-3137Bmdose [Catalytic activity/Vol]22 U/UCvmhwz06-78CroegvOhiohealth O'Bleness HospitalComment on above:Performed By: #### 58251299, 4230509, 9474349, 9059166, 8888344, 87870444, 8141710 ####[facility] [address] [place], [place] [address]Rihbneizhwdfm/Work Noteson 15-11-1307Brzzwrxbuypme/Work Notes [id number]#1.00TIFFNormalOhiohealth O'Bleness HospitalTroponin 0 Hr.on 89-66-8420Wtudaewd I.cardiac [Mass/Vol]ng/mLLow 10.10-27.10[facility] HospitalComment on above:Result Comment: The 95% CI (Confidence Interval) PPV (Positive Predictive Value) for myocardial infa rction in females is 38 pg/mL, in males 51 pg/mL. The results should be used in conjunction with clinical conditions of myocardial infarction. (Access High Sensitivity Troponin I Instructions For Use, Lianna Te[place], November 2017)Performed By: #### [id number], 5109932, 8151449, 1511986, 8587038, 00478080, 9474516 ####[facility] [place], [place] [address]qXCZyo 24-81-4363XGS/1.73 sq M.predicted among non-blacks MDRD (S/P/Bld) [Vol rate/Area]128 mL/min/1.73 c0Lieapx>=59[facility] HospitalComment on above:Order Comment: Order added by Discern Expert.Result Comment: Chronic kidney disease could be indicated at eGFR's of less than 60 mL/min/1.73m2. Kidney failure is indicated at less than 15 mL/min/1.73m2. Performed By: #### [id number], 8446344, 4789198, 6754737, 2392158, 30064296, 1947024 ####[facility] Onw[address]janbd[address] [place], [place] [address]Xtktpu Medicine Office/Clinic Noteon 85-56-7291Lbrycu Medicine Office/Clinic NoteChief Complaint EST rt foot injury HPI Staff [...] created with voice recognition software. Occasional wrong-word or?kpuny-q-lxcf? substitutions may have occurred due to the inherent limitations of voice recognitionsoftware. 22 yo female presents today with cc of foot pain following injury. 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 She states it kind [...] extremity. She does note she has fractured thatfoot in the past. States last menstrual cycle [...] foot and ankle contusion continue rest ice andelevation as needed for pain and swelling Tylenol [...] LOERA, Raquel Penny [address] [place] [address]- Additional Instructions: Patient Education Contusion, Arcp-ut-Qokp Problem List/Past Medical History Ongoing Depression Smoker Historical Smoker Supervision of normal (more content not included)...[facility] - WestComment on above:Result Comment: Electronically Signed By: Timothy TREVIZO, Tony Bhatia\.br\Date and Time Signed: 12/19/2315:13 EDTPatient Educationon 95-75-2892Prdunko EducationOrthopedics Contusion A contusion is a deep bruise. [...] injured area using an elastic bandage. Make surethe bandage is not too tight. If the area tingles or becomes numb, remove it and put it back on as told by your doctor. ? If possible, raise (elevate) the injured area above the level of your heart while you are sittingor lying down. General instructions ? Take bhqj-apv-ehhwyrr and prescription medicines only as told by [...] discolored skin. The skin may turn blue, purple,or yellow. ? This condition is treated with rest, ice, compression, and elevation. This is also called RICE. You may be given bfap-jgn-cjlfdil medicines for pain. ? Contact a doctor [...] provider. Document Revised: 01/15/2022 Document Reviewed: 01/15/2022 [employer] Patient Education ? 2022 [employer].[facility] XR Ankle 3+ Views Righton 08-61-0068JD Ankle 3+ Views RightExam Date/Time: 12/18/2022 15:56 EDT Reason for Exam: Pain Report IMPRESSION: No acute osseous findings. EXAMINATION/TECHNIQUE: XR Foot 3+ Views Right, 3+ views [...] Ka,r in mGy = na DAP = [facility]XR Foot [facility]+ Views Righton 98-18-7744YU Foot 3+ Views RightExam Date/Time: 12/18/2022 15:56 EDT Reason for Exam: Pain, Traumatic Report IMPRESSION: No acute osseous findings. EXAMINATION/TECHNIQUE: XR Foot 3+ Views Right, 3+ views right ankle HISTORY: Right foot and ankle pain. COMPARISON: 04/30/2022. RESULT: Right foot/ankle: No evidence for acute fracture. No dislocation. Ankle mortise maintained. Joint spaces appear maintained. Mild hallux valgus. Mild soft tissue edema. No other significant abnormality. Ordering Provider: Tony Aguirre FINAL REPORT Dictated: 12/18/2022 4:04 pm Roque Vasques MD Signed (Electronic Signature): 12/18/2022 4:04 pm Signed by: Roque Vasques MD Transcribed by: KEE Technologist: PHILIPPE Technical Comments Radiation Dose: Ka,r in mGy = na DAP = naNormalFisher [facility] HospitalCB AUTO DIFFon 69-12-4076TFAB #0.1 103/ulNormal0.0-0.1The [facility] HospitalComment on above:Performed By: #### CBC #### [facility] [address] [address] [address] Janett PlataBasophils/100 WBC (Bld)1.1 %Normal0.2-2.0[facility] Comment on above:Performed By: #### CBC #### [facility] [address] [address] [address] Janett Tinsley #0.1 103/ulNormal0.0-0.7The [facility] HospitalComment on above: Performed By: #### CBC #### [facility] [address] [address] [address] Janett Babcockosinophils/100 WBC (Bld)1.7 %Normal0.9-7.0[facility] Comment on above:Performed By: #### CBC #### [facility] [address] [address] [address] Janett Babcockrythrocyte distribution width (RBC) [Ratio]12.6 %Qudfah87.0-15.0 The [facility] HospitalComment on above:Performed By: #### CBC #### [facility] [address] [address] [address] Janett PlataHematocrit (Bld) [Volume fraction]41.0 %Qoibjz88.0-48.0The [facility] HospitalComment on above:Performed By: #### CBC #### [facility] [address] [address] [address] Janett PlataHemoglobin (Bld) [Mass/Vol]13.3 g/vZKlldwp76.0-16.0The [facility] HospitalComment on above:Performed By: #### CBC #### [facility] [address] [place] [address] Dr. Janett Gonzales #0.02 10e3/ulNormal0.00-0.03The [facility] HospitalComment on above:Performed By: #### CBC #### [facility] [address] [place] [address] Dr. Janett Gonzales %0.3 %Normal0.0-0.5The [facility] HospitalComment on above: Performed By: #### CBC #### [facility] [address] [place] [address] Dr. Janett An #2.8 103/ulNormal1.2-3.8The [facility] HospitalComment on above:Performed By: #### CBC #### [facility] [address] [place] [address] Dr. Janett Patinohocytes/100 WBC (Bld)40.6 %Rdbykp19.5-60.0The [facility] HospitalComment on above:Performed By: #### CBC #### [facility] [address] [place] [address] Dr. Janett CruzUAL DIFF REQNONormalThe [facility] HospitalComment on above: Performed By: #### CBC #### [facility] [address] [place] [address] Dr. Janett Chamorro (RBC) [Entitic mass]30.4 qvSrbmij53.7-34.0The [facility] HospitalComment on above:Performed By: #### CBC #### [facility] [address] [place] [address] Dr. Janett Chamorro (RBC) [Mass/Vol]32.4 g/fGKwhzig20.9-35.2The [facility] HospitalComment on above:Performed By: #### CBC #### [facility] [address] [place] [address] Dr. Janett Chamorro (RBC) [Entitic vol]93.8 qSHunxph94.0-99.0The [facility] HospitalComment on above:Performed By: #### CBC #### [facility] [address] [place] [address] Dr. Janett Richard #0.4 103/ulNormal0.3-0.8The [facility] HospitalComment on above:Performed By: #### CBC #### [facility] [address] [place] [address] Dr. Janett Morrisonocytes/100 WBC (Bld)5.4 %Normal1.7-12.0The [facility] Comment on above:Performed By: #### CBC #### [facility] [address] [place] [address] Dr. Janett Garcia #3.6 103/ulNormal1.4-6.5The [facility] HospitalComment on above:Performed By: #### CBC #### [facility] [address] [place] [address] Dr. Janett Fletcherutrophils/100 WBC (Bld)50.9 %Yrbpiq64.0-75.0The [facility] HospitalComment on above:Performed By: #### CBC #### [facility] [address] [place] [address] Dr. Janett Gallo mean volume (Bld) [Entitic vol]10.2 fLNormal9.5-13.5The [facility] HospitalComment on above:Performed By: #### CBC #### [facility] [address] [place] [address] Dr. Janett BoyceT267 103/buXasfjb216-853Qry [facility] HospitalComment on above: Performed By: #### CBC #### [facility] [address] [place] [address] Dr. Janett BoseC4.37 106/ulNormal4.20-5.40The [facility] HospitalComment on above:Performed By: #### CBC #### [facility] [address] [place] [address] Dr. Janett PlataWBC7.0 103/ulNormal4.0-11.0[facility] HospitalComment on above: Performed By: #### CBC #### [facility] [address] [place] [address] Dr. Janett PlataPRELarissa QUANT HCGon 69-39-3760BAS QUANT<1NormalMercy Health Tiffin Hospital Comment on above:Performed By: #### PREGQNT #### [facility] [address] [place] [address] Dr. Janett PlataHCG RANGESEE BELOWTrinity Health SystemComment on above: Result Comment: 5-50 0.2-1 WEEK 50-500 1-2 WEEKS 100-5,000 2-3 WEEKS 500-10,000 3-4 WEEKS 1,000-50,000 4-5 WEEKS 10,000-100,000 5-6 WEEKS 15,000-200,000 6-8 WEEKS 10,000-100,000 2-3 MONTHSPerformed By: #### PREGQNT #### [facility] [address] [place] [address] Dr. Janett PlataXR CHEST 2 Von 79-88-4432GE CHEST 2 VEXAMINATION: XR CHEST 2 V HISTORY: Electronic cigarette user COMPARISON: [...] Electronically authenticated by: BAO DESIR Date: 2022-06-10 10:31[facility] Health SystemCNOVon [id number] Visit (CALEB) SOCORRO JOSEPH ([id number]) 2000 F Date Time Provider Department 11/06/21 1:30 PM FERNANDA SOUZA During your visit today, we recorded the following information about you: Fernanda Souza APRN.CNP 11/06/2021 1:17 PM Signed 1. Stay [...] Current Outpatient Medications M (more content not included)...NormalMemorial HospitalTORY PHYSICAL on [id number] PHYSICALHNO ID: [id number] Author: Fernanda Souza APRN.LINEN FOLDER Service: ? Author Type: Nurse Practitioner Type: [...] erythema, induration or e (more content not included)...NormalC[facility] SERUMon 49-90-2360Lqfyxmrpivwygwyhcrxdka (DHEA)234 ng/dYGovlrg98-585Zbb [facility] HospitalComment on above:Result Comment: Age 1 - 5 years 0 - 67 6 - 7 years 0 - 110 8 - 10 years 0 - 185 11 - 12 years 0 - 201 13 - 14 years 0 - 318 15 - 16 years 39 - 481 17 - 19 years 40 - 491 >19 years 31 - 701Performed By: #### DHEA. #### [facility] [address] [address] [address] Janett PlataUS PELVIS AND TRANSVAGon 32-62-6508AB PELVIS AND TRANSVAG EXAMINATION: US PELVIS AND [...] Electronically authenticated by: EVELIA LLAMAS Date: 2021-10-21 08:09[facility]inity Health SystemDHEA-SULFATEon 64-93-1476CSJD-Mrhwsbh543.0 ug/dLNormal 110.0-431.7The [facility] HospitalComment on above:Performed By: #### DHEASUL ####[facility] [address] [address]. Janett PlataFSHon 04-97-9435CJF3.3 mIU/mLNormalThe [facility] HospitalComment on above:Result Comment: Adult Female: Follicular phase 3.5 - 12.5 Ovulation phase 4.7 - 21.5 Luteal phase 1.7 - 7.7 Postmenopausal 25.8 - 134.8Performed By: #### LBCFSH #### [facility] [address] [place] [address] Dr. Janett PlataLUTEINIZING HORMONE (LH)on 12-94-2497FC58.9 mIU/mLNormalMercy Health Tiffin HospitalComment on above:Result Comment: Adult Female: Follicular phase 2.4 - 12.6 Ovulation phase 14.0 - 95.6 Luteal phase 1.0 - 11.4 Postmenopausal 7.7 - 58.5Performed By: #### LBCLH #### [facility] [address] [place] [address] Dr. Janett DiasC AUTO DIFFon 58-86-5558DOHU #0.0 103/ulNormal0.0-0.1[facility] HospitalComment on above:Performed By: #### CBC #### [facility] [address] [place] [address] Dr. Janett PlataBasophils/100 WBC (Bld)0.4 %Normal0.2-2.0[facility] Comment on above:Performed By: #### CBC #### [facility] [address] [place] [address] Dr. Janett Tinsley #0.1 103/ulNormal0.0-0.7The [facility] HospitalComment on above: Performed By: #### CBC #### [facility] [address] [place] [address] Dr. Janett Babcockosinophils/100 WBC (Bld)1.1 %Normal0.9-7.0The [facility] Comment on above:Performed By: #### CBC #### [facility] [address] [place] [address] Dr. Janett Babcockrythrocyte distribution width (RBC) [Ratio]12.1 %Yjztbz79.0-15.0 The [facility] HospitalComment on above:Performed By: #### CBC #### [facility] [address] [place] [address] Dr. Janett PlataHematocrit (Bld) [Volume fraction]39.9 %Hwkdve94.0-48.0The [facility] HospitalComment on above:Performed By: #### CBC #### [facility] [address] [place] [address] Dr. Janett PlataHemoglobin (Bld) [Mass/Vol]13.0 g/tTXxwcfr33.0-16.0The [facility] HospitalComment on above:Performed By: #### CBC #### [facility] [address] [place] [address] Dr. Janett Gonzales #0.02 10e3/ulNormal0.00-0.03The [facility] HospitalComment on above:Performed By: #### CBC #### [facility] [address] [place] [address] Dr. Janett Gonzales %0.2 %Normal0.0-0.5The [facility] HospitalComment on above: Performed By: #### CBC #### [facility] [address] [place] [address] Dr. Janett An #2.9 103/ulNormal1.2-3.8The [facility] HospitalComment on above:Performed By: #### CBC #### [facility] [address] [place] [address] Dr. Janett Hallmphocytes/100 WBC (Bld)32.0 %Eeulwj98.5-60.0The [facility] HospitalComment on above:Performed By: #### CBC #### [facility] [address] [place] [address] Dr. Janett CruzUAL DIFF REQNONormalThe [facility] HospitalComment on above: Performed By: #### CBC #### [facility] [address] [place] [address] Dr. Janett Chamorro (RBC) [Entitic mass]31.0 snAyajzd49.7-34.0The [facility] HospitalComment on above:Performed By: #### CBC #### [facility] [address] [place] [address] Dr. Janett Chamorro (RBC) [Mass/Vol]32.6 g/eJKojyvv17.9-35.2The [facility] HospitalComment on above:Performed By: #### CBC #### [facility] [address] [place] [address] Dr. Janett Chamorro (RBC) [Entitic vol]95.2 pIFkjiqw43.0-99.0The [facility] HospitalComment on above:Performed By: #### CBC #### [facility] [address] [place] [address] Dr. Janett Richard #0.5 103/ulNormal0.3-0.8The [facility] HospitalComment on above:Performed By: #### CBC #### [facility] [address] [place] [address] Dr. Janett Morrisonocytes/100 WBC (Bld)5.3 %Normal1.7-12.0The [facility] Comment on above:Performed By: #### CBC #### [facility] [address] [place] [address] Dr. Janett Garcia #5.5 103/ulNormal1.4-6.5The [facility] HospitalComment on above:Performed By: #### CBC #### [facility] [address] [address] [address] Janett Fletcherutrophils/100 WBC (Bld)61.0 %Anewuu66.0-75.0The [facility] Hospitalment on above:Performed By: #### CBC #### [facility] [address] [place] [address] Dr. Janett Saleemlet mean volume (Bld) [Entitic vol]9.5 fLNormal9.5-13.5The [facility] HospitalComment on above:Performed By: #### CBC #### [facility] [address] [place] [address] Dr. Janett PlataPLT227 103/xwTkbypn879-510Ltp [facility] HospitalComduane l. waters hospital on above: Performed By: #### CBC #### [facility] [address] [place] [address] Dr. Janett PlataRBC4.19 106/ulCritically low4.20-5.40The [facility] on above:Performed By: #### CBC #### [facility] [address] [place] [address] Dr. Janett PlataWBC9.1 103/ulNormal4.0-11.0The [facility] HospitalComment on above: Performed By: #### CBC #### [facility] [address] [place] [address] Dr. Janett Goodwin 42-09-9186KQU6.507 uIU/mLNormal0.358-3.740The [facility] on above:Performed By: #### TSH #### [facility] [address] [place] [address] Dr. Janett PlataURINALYSISOrdered By: Linh Wright on 72-70-8711Hkcdrtynn Ql (U)Negative (09/18/21 1:25 AM)NormalNegativeMEM[facility] UA Auto SSClarity (U)Clear (09/18/21 1:25 AM)NormalClearFTM UA Auto SSColor (U)Yellow (09/18/21 1:25 AM)NormalYellowMEMORIAL HOSPITAL OF [facility] UA Auto SSEpithelial cells.squamous LM.HPF (Urine sed) [#/Area]0-2 /HPFNormal0-2/HPFFTMC UA Auto SSGlucose Test strip (U) [Mass/Vol]Negative (09/18/21 1:25 AM)NormalNegativeMEMORIAL [facility] UA Auto SSHemoglobin Ql (U)Negative (09/18/21 1:25 AM)NormalNegativeMEMORIAL [facility] UA Auto SSKetones (U) [Mass/Vol]Negative (09/18/21 1:25 AM)NormalNegativeMEMORIAL [facility] UA Auto SSLithium.plasma/Xenia.RBC (Bld) [Mass ratio]0-3 /HPFNormal0-3/HPFMEMORIAL HOS[facility] UA Auto SSNitrite Ql (U)Negative (09/18/21 1:25 AM)NormalNegativeMEMORIAL [facility] UA Auto SSpH (U)6.5 *NA* (09/18/21 1:25 AM)Invalid Interpretation Code5.0 - 9.0[facility] UA Auto SSProtein (U) [Mass/Vol]Negative (09/18/21 1:25 AM)NormalNegativeMEMORIAL [facility] UA Auto SSSpecific gravity (U) [Rel density] <=1.005 *NA* (09/18/21 1:25 AM)Invalid Interpretation Code1.005 - 1.030[facility] UA Auto SSUA Spec DescClean Catch (09/18/21 1:25 AM)NormalMEMORIAL H[facility] UA Auto SSUrobilinogen Qn (U)0.6717725 {Paco'U}/dLNormal0.0 - 1.0 EU/dLMEMORIAL HOSP[facility] UA Auto SSWBC Auto Ql (U)Negative (09/18/21 1:25 AM)NormalNegativeMEMORIAL [facility] UA Auto SSWBC LM.HPF (Urine sed) [#/Area]0-5 /HPFNormal0-5/HPFFTMC UA Auto SSCHEMISTRYOrdered By: SYSTEM SYSTEM on 68-34-8568Pswnhjj [Mass/Vol]4.5 g/dLNormal3.3 - 5.0 gm/dLFTMC Remisol Albumin/Globulin [Mass ratio]1.6 {ratio}Normal1.1 - 2.2FTMC RemisolALP [Catalytic activity/Vol]71 [iU]/aJitpvq67 - 98 Int._Unit/LFTMC RemisolALT No additional P-5'-P [Catalytic activity/Vol]27 [iU]/dNormal6 - 46 Int._Unit/LFTMC RemisolAnion gap [Moles/Vol]14 mmol/LNormal6 - 16 mEq/LFTMC RemisolAST [Catalytic activity/Vol]32 [iU]/dNormal5 - 43 Int._Unit/LFTMC RemisolBilirubin [Mass/Vol]0.6 mg/dLNormal0.0 - 1.1 mg/dLFTMC RemisolBilirubin.direct [Mass/Vol] mg/dLNormal0.1 - 0.4 mg/dLFTMC RemisolBilirubin.indirect [Mass or moles/Vol] Unable to Calculate mg/dLInvalid Interpretation Code0.1 - 0.9 mg/dLFTMC Remisol Calcium [Mass/Vol]9.2 mg/dLNormal8.9 - 11.1 mg/dLFT[facility] RemisolChloride [Moles/Vol]105 mmol/UFcuzdv367 - 111 mmol/LFTMC RemisolCO2 [Moles/Vol]23 mmol/L Napxdc82 - 31 mmol/LFTMC RemisolCreatinine [Mass/Vol]0.6 mg/dLNormal0.5 - 1.3 mg/dLFTMC RemisolGFR/1.73 sq M.predicted among blacks MDRD (S/P/Bld) [Vol rate/Area]mL/min/1.73 d2Mzztxi>=59mL/min/1.73 m2[facility] Chem SGFR/1.73 sq M.predicted among non-blacks MDRD (S/P/Bld) [Vol rate/Area]mL/min/1.73 k1Erjddk >=59mL/min/1.73 m2[facility] Chem SGlobulin (S) [Mass/Vol]2.8 g/dLNormal1.4 - 4.0 gm/dLFT[facility] RemisolGlucose [Mass/Vol]109 mg/bIPlicyf21 - 199 mg/dLFT[facility] Remisol Lipase [Catalytic activity/Vol]23 U/CCtdzrp48 - 58 unit/LFTMC RemisolPotassium [Moles/Vol]3.5 mmol/LNormal3.5 - 5.3 mmol/LFT[facility] RemisolProtein [Mass/Vol]7.3 g/dLNormal6.0 - 7.8 gm/dLFT[facility] RemisolSodium [Moles/Vol]138 mmol/LLixenc027 - 145 mmol/LFTMC RemisolUrea nitrogen [Mass/Vol]10 mg/dLNormal5 - 21 mg/dLFT[facility] RemisolUrea nitrogen/Creatinine [Mass ratio]17 mg/nlCbuefq59 - 20[facility] Remisol HEMATOLOGYOrdered By: SYSTEM SYSTEM on 51-28-1273Pbqwdajpc/100 WBC (Bld)0.4 % Normal0.0 - 2.0 %[facility] HemeAutoSSBasophils/Leukocytes Auto (Bld) [Pure # fraction]0.0 E9/LNormal0.0 - 0.2 E9/LFTMC HemeAutoSSEosinophils/100 WBC (Bld)0.7 %Normal0.0 - 8.0 %[facility] HemeAutoSSEosinophils/Leukocytes Auto (Bld) [Pure # fraction]0.1 E9/LNormal0.0 - 0.5 E9/LFTMC HemeAutoSSLymphocytes/100 WBC (Bld) 33.7 %Iftvkb37.0 - 50.0 %[facility] HemeAutoSSLymphocytes/Leukocytes Auto (Bld) [Pure # fraction]3.6 E9/LNormal1.0 - 4.0 E9/LFT[facility] HemeAutoSSMonocytes/100 WBC (Bld)6.4 %Normal4.0 - 14.0 %[facility] HemeAutoSSMonocytes/Leukocytes Auto (Bld) [Pure # fraction]0.7 E9/LNormal0.2 - 1.0 E9/LFT[facility] HemeAutoSSNeutrophils/100 WBC (Bld) 58.8 %Jzdmqe44.0 - 75.0 %[facility] HemeAutoSSNeutrophils/Leukocytes Auto (Bld) [Pure # fraction]6.3 E9/LNormal2.0 - 7.5 E9/LFTMC HemeAutoSSHEMATOLOGYOrdered By: Coretta Tony on 80-02-0719Bmuhyhzugkc distribution width (RBC) [Ratio]13.1 %Ktismr75.9 - 14.2 %[facility] HemeAutoSSHematocrit (Bld) [Volume fraction]41.1 %Vydbyv35.0 - 46.0 %[facility] HemeAutoSSHemoglobin (Bld) [Mass/Vol]14.0 g/iTShdkbg68.0 - 16.0 gm/dL [facility] HemeAutoSSMCH (RBC) [Entitic mass]31.8 jeFoheng51.0 - 34.0 pgFTMC HemeAutoSSMCHC (RBC) [Mass/Vol]34.1 g/iFWbqrte63.4 - 36.0 gm/dLFTMC HemeAutoSS MCV (RBC) [Entitic vol]93.2 zQTlxluo03.0 - 100.0 fLFTMC HemeAutoSSPlatelet mean volume (Bld) [Entitic vol]8.4 fLNormal6.4 - 10.8 fLFTMC HemeAutoSSPlatelets (Bld) [#/Vol]233.0 E9/MZqucqw623.0 - 500.0 E9/LFT[facility] HemeAutoSSRBC (Bld) [#/Vol] 4.4 E12/LNormal4.3 - 5.9 E12/LFT[facility] HemeAutoSSWBC corrected for nucl RBC Auto (Bld) [#/Vol]10.7 E9/LNormal4.0 - 11.0 E9/LFT[facility] HemeAutoSSMICRO OTHER TESTS Ordered By: Coretta Tony on 24-89-1797Sqzbkw Bld StlNegative (09/17/21 10:40 PM)NormalNegativeMEM[facility] Man SeroSEROLOGYOrdered By: Linh Wright on 55-92-6703Rlti hCG QlNegative (09/17/21 10:42 PM)NormalMEM[facility]IAL [facility] Man SeroBLOOD BANKOrdered By: Coretta Tony on 67-75-8239TJO/Rh InterpPositiveInvalid Interpretation CodeMEMORIAL [facility] BB Subsection CHEMISTRYOrdered By: SYSTEM SYSTEM on 66-26-2489Pzdwt gap [Moles/Vol]12 mmol/L Normal6 - 16 mEq/LFT[facility] RemisolCalcium [Mass/Vol]9.1 mg/dLNormal8.9 - 11.1 mg/dL [facility] RemisolChloride [Moles/Vol]103 mmol/IZmanmg552 - 111 mmol/LFT[facility] RemisolCO2 [Moles/Vol]24 mmol/GBbeyxg88 - 31 mmol/LFT[facility] RemisolCreatinine [Mass/Vol]0.5 mg/dLNormal0.5 - 1.3 mg/dLFTMC RemisolGFR/1.73 sq M.predicted among blacks MDRD (S/P/Bld) [Vol rate/Area]mL/min/1.73 f9Rrsoox>=59mL/min/1.73 m2FT Chem S GFR/1.73 sq M.predicted among non-blacks MDRD (S/P/Bld) [Vol rate/Area] mL/min/1.73 l6Rwnzzj>=59mL/min/1.73 m2[facility] Chem SGlucose [Mass/Vol]114 mg/dL Hqrrua86 - 199 mg/dLFT RemisolPotassium [Moles/Vol]3.6 mmol/LNormal3.5 - 5.3 mmol/LFT[facility] RemisolSodium [Moles/Vol]135 mmol/JIebsha406 - 145 mmol/LFT[facility] Remisol Urea nitrogen [Mass/Vol]17 mg/dLNormal5 - 21 mg/dLFT RemisolUrea nitrogen/Creatinine [Mass ratio]34 mg/dpKsap17 - 20FT RemisolCOAGULATION Ordered By: Charlotte Rosales on 82-48-3017aZHD Coag (PPP) [Time]36.1 sNormal 25.1 - 36.5 second(s)[facility] Auto CoagINR Coag (PPP) [Relative time]1.0 {INR} Invalid Interpretation CodeFT Auto CoagPT Coag (PPP) [Time]12.3 xQygmbo41.2 - 12.9 second(s)[facility] Auto CoagHEMATOLOGYOrdered By: SYSTEM SYSTEM on 07-16-2021 Basophils/100 WBC (Bld)0.4 %Normal0.0 - 2.0 %[facility] HemeAutoSSBasophils/Leukocytes Auto (Bld) [Pure # fraction]0.0 E9/LNormal0.0 - 0.2 E9/LFTMC HemeAutoSS Eosinophils/100 WBC (Bld)0.8 %Normal0.0 - 8.0 %[facility] HemeAutoSS Eosinophils/Leukocytes Auto (Bld) [Pure # fraction]0.1 E9/LNormal0.0 - 0.5 E9/L [facility] HemeAutoSSLymphocytes/100 WBC (Bld)39.8 %Ukaysk50.0 - 50.0 %[facility] HemeAutoSS Lymphocytes/Leukocytes Auto (Bld) [Pure # fraction]2.6 E9/LNormal1.0 - 4.0 E9/L [facility] HemeAutoSSMonocytes/100 WBC (Bld)5.8 %Normal4.0 - 14.0 %[facility] HemeAutoSS Monocytes/Leukocytes Auto (Bld) [Pure # fraction]0.4 E9/LNormal0.2 - 1.0 E9/L [facility] HemeAutoSSNeutrophils/100 WBC (Bld)53.2 %Bhvaop90.0 - 75.0 %[facility] HemeAutoSS Neutrophils/Leukocytes Auto (Bld) [Pure # fraction]3.5 E9/LNormal2.0 - 7.5 E9/L [facility] HemeAutoSSHEMATOLOGYOrdered By: Coretta Tony on 30-90-2436Qgvtehulzyf distribution width (RBC) [Ratio]13.3 %Mronme56.9 - 14.2 %[facility] HemeAutoSS Hematocrit (Bld) [Volume fraction]38.5 %Hlgcmz79.0 - 46.0 %[facility] HemeAutoSS Hemoglobin (Bld) [Mass/Vol]13.1 g/gIXpzlqd69.0 - 16.0 gm/dLFTMC HemeAutoSSMCH (RBC) [Entitic mass]31.4 eiQfxhlw22.0 - 34.0 pgFTMC HemeAutoSSMCHC (RBC) [Mass/Vol]34.2 g/iQIuzmua61.4 - 36.0 gm/dLFTMC HemeAutoSSMCV (RBC) [Entitic vol] 92.0 mBWxjdqb81.0 - 100.0 fLFTMC HemeAutoSSPlatelet mean volume (Bld) [Entitic vol]8.6 fLNormal6.4 - 10.8 fLFTMC HemeAutoSSPlatelets (Bld) [#/Vol]213.0 E9/L Hzoyro639.0 - 500.0 E9/LFTMC HemeAutoSSRBC (Bld) [#/Vol]4.2 E12/LLow4.3 - 5.9 E12/LFC HemeAutoSSWBC corrected for nucl RBC Auto (Bld) [#/Vol]6.6 E9/LNormal 4.0 - 11.0 E9/LFC HemeAutoSSSEROLOGYOrdered By: Charlotte Rosales on 24-37-5838ZLS.beta subunit (U) [Moles/Vol]NegativeNormalMEMORIAL [facility] Man SeroURINALYSIS Ordered By: Charlotte Rosales on 19-08-8386Rxgfkvfbj Ql (U)Negative (07/16/21 3:20 PM)NormalNegativeMEM[facility] UA Auto SSClarity (U)Clear (07/16/21 3:20 PM)NormalClearFCLEVELAND [facility] [place] U[facility] Auto SSColor (U)Yellow (07/16/21 3:20 PM)NormalYellowMEMORIAL [facility] UA Auto SSEpithelial cells.squamous LM.HPF (Urine sed) [#/Area]0-2 /HPFNormal0-2/HPFFT UA Auto SSGlucose Test strip (U) [Mass/Vol]Negative (07/16/21 3:20 PM)NormalNegativeMEM[facility] UA Auto SSHemoglobin Ql (U)1+ *ABN* (07/16/21 3:20 PM)Invalid Interpretation CodeNegativeMEM[facility] UA Auto SSKetones (U) [Mass/Vol]Negative (07/16/21 3:20 PM)NormalNegativeMEM[facility] UA Auto SSLithium.plasma/Xenia.RBC (Bld) [Mass ratio]4-20 /HPFNormal0-3/HPFMEMORIAL [facility]OS[facility] UA Auto SSNitrite Ql (U)Negative (07/16/21 3:20 PM)NormalNegativeMEM[facility] UA Auto SSpH (U)7.0 *NA* (07/16/21 3:20 PM)Invalid Interpretation Code5.0 - 9.0[facility] UA Auto SSProtein (U) [Mass/Vol]Negative (07/16/21 3:20 PM)NormalNegativeMEM[facility] UA Auto SSSpecific gravity (U) [Rel density] 1.010 *NA* (07/16/21 3:20 PM)Invalid Interpretation Code1.005 - 1.030[facility] UA Auto SSUA Spec DescClean Catch (07/16/21 3:20 PM)NormalMEMORIAL H[facility] UA Auto SSUrobilinogen Qn (U)0.9481559 {Paco'U}/dLNormal0.0 - 1.0 EU/dLMEMORIAL [facility] UA Auto SSWBC Auto Ql (U)Negative (07/16/21 3:20 PM)NormalNegativeMEM[facility]IAL [facility] UA Auto SSWBC LM.HPF (Urine sed) [#/Area]0-5 /HPFNormal0-5/HPFMEMORIAL HOSP[facility] UA Auto SSProgress Noteon 33-87-4228Hiosshvqnlcqh Authentication Interface Message NavitaSera for ReferralSocorro, her partner Uli, her mother and sister were seen on 07/05/2017 at [facility] by myself and [facility]da [facility]. Chandana Huitron MD requested a genetic consult to discuss theprevious ultrasound finding of a choroid plexus cyst. The ultrasound also notedpossible shortened cervical length.HistoryAt the time ofthe visit Socorro was 16 y.o. and , approximately 20 weeks 1day by prior established dating, with an KAIN of 11/21/17.Prior to her visit Socorro had an ultrasound performed at 19 weeks 2daysgestation that was significant for a right choroid [...] reportedly has a son with a hole inhis spine who iscompletely asymptomatic. This aunt also has a 23 year old son withhydrocephalus, cerebral palsy, intellectual disability, and deafness. She hasanother son who is 7 years of age, who was born premature, has a trach, anddevelopmental delays. There is no known chromosome abnormality known toBreemmanuelia, as an underlying etiology for the two cousins with developmentaldelays.Uli's reported family history is unremarkable.The remainder of the and family medical history was also obtainedwhich was non-contributory.Genetic Counseling SummaryChoroid Plexus Cysts:We discussed th at choroid plexus cysts (CPCs) typically occur as normal variantsand are a common ultrasound finding, seen in approximately 1% to 2% of fetusesin the second trimester. They are not associated with anincreased chance ofneurological problems and usually resolve on [...] considered isolated, and the increased risk is typicallyconsideredto be less than 1%, as long as there are not additional risks such asfamily history, advanced maternal age, or abnormal maternal serum screening. Wediscussed the option of maternal serum cell-free DNA screening forspecific chromosome abnormalities, including trisomy 18, that can be done at anytime in the after 9 weeks' gestation. We also discussed diagnostictesting through amniocen tesis.Although the paternal family histories of two cousins with developmental delaysdid not appearto be consistent with trisomy 18, recommend a genetic consult, ifnot already done, to determine if there is an underlying genetic etiology foreither of these cousins problems. Although not related toCPCs, we discussed the option of universal carrierscreening for conditions such as cystic fibrosis,spinal muscular atrophy, andFragile X syndrome. Follow up testing options discussed included: Comprehensive Ultrasound Amniocentesis Maternal serum cell-free DNA screening [place] carrier screeningFollowing our discussion Socorro elected to have: Ultrasound only and declined additional screening and testing.Ultrasound FindingsThe ultrasound was consistent with prior ultrasound dating. 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 Otherwise the ultrasound was unremarkable. The cervicallength was in the normal range. Please refer to the ultrasound report for fulldetails.Follow-up No follow-up in [facility] necessary unless additional concerns arise. Recommend that Socorro's mother follow-up with her physician in regard to herfamily history of early-onset heart conditions Recommend genetic consult for Socorro's paternal first cousins to rule out agenetic etiology for their defects/developmental delays which may provideimportant etiologic information for their nuclear family as wellas other familymembers. Follow up as clinically indicated. Mitch Phillips MD and Alix Hendricks LGTriHealth Bethesda North Hospital Vital Signs Date TimeVital SignValuePerforming DtmlamqzmNnnbnxpm16-65-5216 10:48-0400Body mass index (BMI) [Ratio]28.4 kg/d3Dvewe [employer] Work Phone: NON[facility] CenterCapwgcgcva41-07-9629 10:48-0400Body spityf64.73 kgCorey Miryam [employer] [employer] [facility] Work Phone: NON[facility] CenterFsorllynfc44-10-3036 10:48-0400Diastolic blood dlwtvkvu79 mm[Hg]Shaan Miryam DO Work Phone: [phone] Regional Medical CenterFcxmympbmq88-95-7170 10:48-0400Systolic blood utyffziu365 mm[Hg]ShaanCodeEval Work Phone: [phone] Regional Medical CenterBbcshmpseo31-39-8550 15:27-0400Body mass index (BMI) [Ratio]27.64 kg/m2Amy Filemon GUILLEN Work Phone: [facility] CenterUpoenppndv32-19-7042 15:27-0400Body spijbv49.46 kgNia GUILLEN Work Phone: [phone] Regional Medical CenterKeuezpryyt74-19-6426 15:27-0400Diastolic blood azjyguvz47 mm[Hg]Nia GUILLEN Work Phone: [facility] CenterIkunogfioh15-02-1689 15:27-0400Systolic blood knidapid852 mm[Hg]Nia GUILLEN Work Phone: [facility] CenterLiqdkwcqcn37-87-7313 12:38-0400Body yzcwge522.7 cmRaquel Nolan MD Work Phone: NON[facility] CenterVdnguocxcd60-64-3474 12:38-0400Body mass index (BMI) [Ratio]27.25 kg/p2MqamsRaquel Nolan MD Work Phone: [facility] CenterGynqnshvgb18-96-2127 12:38-0400Body temperature 98.2 [degF]Raquel Nolan MD Work Phone: [facility] CenterXuwqwevcxw15-42-7648 12:38-0400Body bbpoqs37.28 kgRaquel Nolan MD Work Phone: [facility] CenterTelkhrnkfg90-54-5794 12:38-0400Diastolic blood enjvumpz67 mm[Hg]Raquel Nolan MD Work Phone: [facility] CenterIzpmnmjvac73-43-1771 12:38-0400Heart rate71 /min Raquel Nolan MD Work Phone: [facility] CenterYxnvvtwgqs82-25-3621 12:38-2723UpO4% (BldA) [Mass fraction]98 %Raquel Nolan MD Work Phone: [facility] CenterYjwshlmgyt18-37-2052 12:38-0400Systolic blood mm[Hg]Raquel Nolan MD Work Phone: [facility] CenterYqqnewaslk72-10-6712 10:46-0400Body fiaxvg797.7 cmRaquel Nolan MD Work Phone: [facility] CenterWsaekfjghj14-31-4799 10:46-0400Body mass index (BMI) [Ratio]26.94 kg/t7JmipiRaquel Nolan MD Work Phone: [facility] CenterMfzrigtbcu84-93-6083 10:46-0400Body temperature 98.2 [degF]Raquel Nolan MD Work Phone: [place] [address]Tjypnoniyd35-76-1819 10:46-0400Body .38 kgRaquel Nolan MD Work Phone: [facility] CenterCodbhyfcvm72-37-4512 10:46-0400Diastolic blood ifyjfwyz66 mm[Hg]Raquel Nolan MD Work Phone: [phone] [place], [place] [address]Xlgtyjedou21-94-6075 10:46-0400Heart rate66 /min Raquel Nolan MD Work Phone: [facility] CenterUexcysivnj82-57-9508 10:46-8518UyS9% (BldA) [Mass fraction]99 %Raquel Nolan MD Work Phone: [phone] CenterBxeinlmuiz34-50-3980 10:46-0400Systolic blood fwluclbr898 mm[Hg]Raquel Nolan MD Work Phone: [phone]-[facility] CenterOwlhqrxryl15-93-5733 14:00-0500Diastolic blood uoghsfvf62 mm[Hg]Narinder Kumar [address] [place], [place] 5737401-12-2025 14:00-0500Heart rate61 /minNarinder Kumar [address] [place], [place] 5737401-12-2025 14:00-0500Mean blood qzabxitg22 mm[Hg]Narinder Kumar [address] [place], [place] 5737401-12-2025 14:00-0500 Respiratory rate16 /minNarinder Kumar [address] [place], [place] 5737401-12-2025 14:00-4598ImT7% (BldA) [Mass fraction]97 %Narinder Kumar [address] [place], [place] 5737401-12-2025 14:00-0500 Systolic blood igckvnur887 mm[Hg]Narinder Kumar [address] [place], [place] 5737401-12-2025 01:00-0500 Diastolic blood ytuqshpj40 mm[Hg]Narinder Kumar [address] [place], [place] 5737401-12-2025 01:00-0500Heart rate60 /minNarinder Kumar [address] [place], [place] 5737401-12-2025 01:00-0500Mean blood axnwrgin58 mm[Hg]Narinder Kumar [address] [place], [place] 5737401-12-2025 01:00-0326KiK6% (BldA) [Mass fraction]97 %Narinder Kumar [address] [place], [place] 7242701-12-2025 01:00-0500 Systolic blood qyjhtwua18 mm[Hg]Narinder Kumar [address] [place], [place] 5737401-12-2025 00:00-0500 Diastolic blood moxoqufr90 mm[Hg]Narinder Kumar [address] [place], [place] 5737401-12-2025 00:00-0500Heart rate63 /minNarinder Kumar [address] [place], [place] 5737401-12-2025 00:00-0500Mean blood rpxuedpk49 mm[Hg]Narinder Kumar [address] [place], [place] 5737401-12-2025 00:00-0500 Respiratory rate16 /minNarinder Kumar [address] [place], [place] 5737401-12-2025 00:00-4280SgQ5% (BldA) [Mass fraction]99 %Narinder José [address] [place], [place] 7242701-12-2025 00:00-0500 Systolic blood iqtgesoz061 mm[Hg]Narinder Kumar [address] [place], [place] 5737401-11-2025 21:11-0500Body elswjlufqcn15.52 [degF]Narinder Kumar [address] [place], [place] 7242701-11-2025 21:11-0500Heart rate68 /minNarinder Kumar [address] [place], [place] 7242701-11-2025 21:11-0500 Respiratory rate18 /minNarinder Kumar [address] [place], [place] 7242701-08-2025 13:46-0500Blood Pressure LocationPatricia Alana [phone]-YbtfrProvidence Hospital Convenient Hdlq63-87-1376 13:46-0500Body pykblkmbust87.24 [degF]Ann Warner [phone]-OekuiProvidence Hospital Convenient Stmf89-80-0592 13:46-0500Diastolic blood sxaohqtr17 mm[Hg]Ann Warner [phone]-LzqcsProvidence Hospital Convenient Znke54-38-1975 13:46-0500Heart rate79 /minPatricia Teeteeer [phone]-PdircProvidence Hospital Convenient Ezvc05-53-5510 13:46-0500Respiratory rate18 /minPamaría elena Warner [phone]-YhihdProvidence Hospital Convenient Ewsw25-30-3554 13:46-9176HxS1% (BldA) [Mass fraction]99 %Ann Warner [phone]-MvqtaProvidence Hospital Convenient Zyyb72-28-0408 13:46-0500Systolic blood hwwsrwaf528 mm[Hg]Ann Warner [phone]-BivfaProvidence Hospital Convenient Zwyg58-52-2669 12:38-0500Body .7 cmRaquel Nolan MD Work Phone: [facility] CenterMqumlbjeot23-01-7480 12:38-0500Body mass index (BMI) [Ratio]27.31 kg/m2GwwmjRaquel Nolan MD Work Phone: [facility] CenterWqgyajcqca41-19-8962 12:38-0500Body temperature 98.01 [degF]Raquel Nolan MD Work Phone: [facility] CenterKkmmoegnrv99-55-7931 12:38-0500Body qjuill97.47 kgRaquel Nolan MD Work Phone: [facility] CenterHmshqcaens34-95-9668 12:38-0500Diastolic blood ahtbszft35 mm[Hg]Raquel Nolan MD Work Phone: [facility] CenterAzjkujzhgw99-99-6943 12:38-0500Heart rate69 /min Raquel Nolan MD Work Phone: [facility] CenterCptgxzkzjp57-68-7819 12:38-1592YvV4% (BldA) [Mass fraction]99 %Raquel Nolan MD Work Phone: [facility] CenterBouridomvy09-48-1781 12:38-0500Systolic blood fnkewbxw089 mm[Hg]Raquel Nolan MD Work Phone: [facility] CenterDicdblstjm33-41-2372 08:55-0500Diastolic blood pinxpubl58 mm[Hg]Roque Harris [address]12-16-2024 08:55-0500Heart rate53 /minRoque Harris [address]12-16-2024 08:55-0500Mean blood bwnvnagz53 mm[Hg]Roque Harris [address]12-16-2024 08:55-0500 Respiratory rate15 /minJokymberly Harris [address] [place], [place] 7242712-16-2024 08:55-0460TtS7% (BldA) [Mass fraction]100 %Roque Harris [address] [place], [place] 7242712-16-2024 08:55-0500 Systolic blood yhoxshst560 mm[Hg]Roque Harris [address] [place], [place] 7242712-16-2024 07:19-0500Body uenpusekfze45.24 [degF]Roque Harris [address] [place], [place] 7242712-16-2024 07:19-0500 Diastolic blood dvixxcjq16 mm[Hg]Roque Harris [address] [place], [place] 7242712-16-2024 07:19-0500Heart rate79 /minJokymberly Kimberly [address] [place], [place] 7242712-16-2024 07:19-0500 Respiratory rate16 /minJohn Kimberly [facility]12-16-2024 07:19-3394IsD6% (BldA) [Mass fraction]100 %Roque Harris [facility]12-16-2024 07:19-0500 Systolic blood owqdjvzp863 mm[Hg]Roque Harris [facility]09-09-2024 15:16-0400Body mass index (BMI) [Ratio]27.58 kg/m2Nia Filemon GUILLEN Work Phone: [facility] CenterPndejqngax52-11-0132 15:16-0400Body vebkfm80.28 kgAmy Filemon GUILLEN Work Phone: [facility] CenterMsjhuqwapi32-81-0471 15:16-0400Diastolic blood vqylownu10 mm[Hg]Nia GUILLEN Work Phone: [facility] CenterFmfvilhmkd10-71-4145 15:16-0400Systolic blood ixemqwfh926 mm[Hg]Nia GUILLEN Work Phone: [facility] CenterPskbucomuc03-41-1322 23:53-0400Diastolic blood zokdmixy56 mm[Hg]Teyordann Dokken [address] [place], [place] 7242703-26-2024 23:53-0400Heart rate65 /minTeylinn Dokken [address] [place], [place] 7242703-26-2024 23:53-0400Mean blood vofpndas52 mm[Hg]Awildainn Dokken [address] [place], [place] 7242703-26-2024 23:53-0400 Respiratory rate16 /minKaylinn Dokken [address] [place], [place] 7242703-26-2024 23:53-9449IpS4% (BldA) [Mass fraction]98 %Awildainn Dokken [address] [place], [place] 7242703-26-2024 23:53-0400 Systolic blood hznwsugo917 mm[Hg]Kaylinn Dokken [address] [place], [place] 5737403-26-2024 22:37-0400 Diastolic blood ogbccxwy14 mm[Hg]Kaylinn Dokken [address] [place], [place] 5737403-26-2024 22:37-0400Heart rate62 /minKaylinn Dokken [address] [place], [place] 5737403-26-2024 22:37-0400Mean blood bnehlbek16 mm[Hg]Kaylinn Dokken [address] [place], [place] 5737403-26-2024 22:37-0400 Respiratory rate16 /minKaylinn Dokken [address] [place], [place] 5737403-26-2024 22:37-6202FjK0% (BldA) [Mass fraction]98 %Kaylinn Dokken [address] [place], [place] 5737403-26-2024 22:37-0400 Systolic blood mm[Hg]Kaylinn Dokken [address] [place], [place] 5737403-26-2024 21:29-0400 Diastolic blood mm[Hg]Kaylinn Dokken [address] [place], [place] 5737403-26-2024 21:29-0400Heart rate58 /minKaylinn Dokken [address] [place], [place] 5737403-26-2024 21:29-0400Mean blood vkzzuhku07 mm[Hg]Kaylinn Dokken [address] [place], [place] 5737403-26-2024 21:29-0400 Respiratory rate16 /minKaylinn Dokken [address] [place], [place] 5737403-26-2024 21:29-1283CpL9% (BldA) [Mass fraction]99 %Amberly Whitehead [address] [place], [place] 5737403-26-2024 21:29-0400 Systolic blood oijoeiek028 mm[Hg]Amberly Whitehead [address] [place], [place] 5737403-26-2024 20:10-0400Heart rate61 /minAmberly Whitehead [address] [place], [place] 5737403-26-2024 19:25-0400Body wzzwqihfcet64.42 [degF]Amberly Whitehead [address] [place], [place] 5737403-26-2024 19:25-0400Heart rate62 /minAmberly Whitehead [address] [place], [place] 5737411-14-2023 07:05-0500 Diastolic blood gkexcpwx00 mm[Hg]Jacinto Maury [address] [place], [place] [id number] 07:05-0500Heart rate58 /minNodana Amury [address] [place], [place] [id number] 07:05-0500Mean blood mm[Hg]Jacinto Maury [address] [place], [place] [id number] 07:05-0500 Respiratory rate18 /minNoah Maury [address] [place], [place] [id number] 07:05-3761ZmB1% (BldA) [Mass fraction]99 %Jacinto Maury [address] [place], [place] [id number] 07:05-0500 Systolic blood kelbfnpz638 mm[Hg]Jacinto Maury [address] [place], [place] [id number] 06:16-0500 Diastolic blood dsoyrnny78 mm[Hg]Jacinto Maury [address] [place], [place] [id number] 06:16-0500Heart rate81 /minNoah Maury [address] [place], [place] [id number] 06:16-0500Mean blood nybokcya72 mm[Hg]Jacinto Maury [address]11-14-2023 06:16-0500 Respiratory rate18 /minNoah Maury [address] [place], [place] [id number] 06:16-8127YaZ3% (BldA) [Mass fraction]99 %Jacinto Maury [address]11-14-2023 06:16-0500 Systolic blood rmjnemqm869 mm[Hg]Jacinto Maury [address] [place], [place] [id number] 05:18-0500gluc 100 mg/dLNoah Maury [address] [place], [place] [id number] 05:18-0500gluc Jacinto Maury [address] [place], [place] [id number] 05:12-0500Body lqbznhzajaa76.7 [degF]Jacinto Maury [address] [place], [place] [id number] 05:12-0500 Diastolic blood yijgenos92 mm[Hg]Jacinto Maury [address] [place], [place] 7242711-14-2023 05:12-0500Heart rate73 /minNoah Maury [address] [place], [place] [id number] 05:12-0500 Respiratory rate16 /minNoah Maury [address] [place], [place] 7242711-14-2023 05:12-8787UwN7% (BldA) [Mass fraction]98 %Jacinto Maury [facility]11-14-2023 05:12-0500 Systolic blood dvhtvidi397 mm[Hg]Jacinto Mendiola [facility]07-08-2022 13:50-0400Body bpfzes306.3 cmJavier Gutierrez MD Work Phone: [facility]07-08-2022 13:50-0400Body temperature 96.69 [degF]Javier Gutierrez MD Work Phone: [facility]07-08-2022 13:50-0400Body glnipl58.52 kgJavier Gutierrez MD Work Phone: [facility]07-08-2022 13:50-0400Diastolic blood pwyevauz11 mm[Hg]Javier Gutierrez MD Work Phone: [facility]07-08-2022 13:50-0400Heart rate67 /min Javier Gutierrez MD Work Phone: [facility]07-08-2022 13:50-0941EoP7% (BldA) [Mass fraction]98 %Javier Gutierrez MD Work Phone: [facility]07-08-2022 13:50-0400Systolic blood ozmuccez270 mm[Hg]Javier Gutierrez MD Work Phone: [facility]06-16-2022 02:53-0400Diastolic blood jcqgwytg76 mm[Hg]Amberly Whitehead [facility]06-16-2022 02:53-0400Heart rate58 /minTeylinn Ventura [facility]06-16-2022 02:53-0400 Hourly RoundingAmberly Whitehead [facility]06-16-2022 02:53-0400 Respiratory rate16 /minKaylinn Dokken [address] [place], [place] 5737406-16-2022 02:53-5148XoN2% (BldA) [Mass fraction]100 %Kaylinn Dokken [address] [place], [place] 5737406-16-2022 02:53-0400 Systolic blood jkazmsko239 mm[Hg]Kaylinn Dokken [address] [place], [place] 5737406-16-2022 01:45-0400 Diastolic blood iqbhvzle19 mm[Hg]Kaylinn Dokken [address] [place], [place] 5737406-16-2022 01:45-0400Heart rate61 /minKaylinn Dokken [address] [place], [place] 5737406-16-2022 01:45-0400 Hourly RoundingKaylinn Dokken [address] [place], [place] 5737406-16-2022 01:45-0400 Respiratory rate18 /minKaylinn Dokken [address] [place], [place] 5737406-16-2022 01:45-2580MeR4% (BldA) [Mass fraction]98 %Kaylinn Dokken [address] [place], [place] 5737406-16-2022 01:45-0400 Systolic blood mm[Hg]Kaylinn Dokken [address] [place], [place] 5737406-16-2022 00:15-0400 Hourly RoundingKaylinn Dokken [address] [place], [place] 5737406-15-2022 23:50-0400Body szgsxeaihnt92.88 [degF]Kaylinn Dokken [address] [place], [place] 5737406-15-2022 23:50-0400 Diastolic blood hkwyorja86 mm[Hg]Kaylinn Dokken [address] [place], [place] 5737406-15-2022 23:50-0400Heart rate70 /Jennifer Whitehead [address] [place], [place] 5737406-15-2022 23:50-0400 Respiratory rate18 /Jennifer Retanaen [address] [place], [place] 5737406-15-2022 23:50-5107VbS2% (BldA) [Mass fraction]98 %Amberly Whitehead [address] [place], [place] 5737406-15-2022 23:50-0400 Systolic blood qtolplnx979 mm[Hg]Amberly Whitehead [address] [place], [place] 5737406-15-2022 22:06-0400Body ssixvtytehk97.06 [degF]Amberly Whitehead [address] [place], [place] 5737404-13-2022 16:39-0400 Diastolic blood vcmgfrir66 mm[Hg][facility] 07-16-2021 16:39-0400Heart rate64 /min[facility]04-13-2022 16:39-0400Mean blood zwwntmry65 mm[Hg][facility]04-13-2022 16:39-0400Respiratory rate16 /[facility]Fire[facility]04[facility]13[facility]2022 16:39-0973QoB0% (BldA) [Mass fraction]99 %[facility]04-13-2022 16:39-0400Systolic blood dzhonter222 mm[Hg][facility]04-13-2022 16:00-0400Hourly RoundingSum[facility]04-13-2022 16:00-0400Promise to ReturnSum[facility]04-13-2022 14:24-0400Body gkhnxotgnrq42.42 [degF][facility]04-13-2022 14:24-0400Diastolic blood sasawpth24 mm[Hg][facility]04-13-2022 14:24-0400Heart rate67 /minFire[facility]04-13-2022 14:24-0400Respiratory rate16 /minSum[facility]04-13-2022 14:24-9045ViO0% (BldA) [Mass fraction]99 %[facility]04-13-2022 14:24-0400 Systolic blood khkoprwa789 mm[Hg][facility] Encounters Encounter DateEncounter TypeCare ProviderFacilityStart: 01-24-2025 End: 97-01-3413Wxooml outpatient visit 15 minutesCorey [employer]s Phone: noinfibond Bright OBGYNComment on above:Pre-operative exam; Menorrhagia with irregular cycle; Pelvic pain in female; Dysmenorrhea; Dyspareunia, femaleStart: 01-24-2025 End: 99-31-9867Sjifmboetdfil examination doneCorey [employer] Phone: noms [employer] Work Phone: Start: 01-24-2025 End: 20-93-0246kxdcczvdxoYZOVM FAZIONot AvailableStart: 12-18-2024 End: 90-37-0454Cludbkl encounter procedureNia GUILLEN Work Phone: [facility] [employer] Work Phone: Start: 12-18-2024 End: 10-61-7199Mswuyelh preventive med est patient 18-39 yrsNia GUILLEN Work Phone: n[facility] OBGYNComment on above:Well woman exam with routine gynecological exam; UTI symptoms; Exposure to STD; Vaginal dischargeStart: 12-18-2024 End: 27-03-7548ehbvcyamhhZRN RAMEYNot AvailableStart: 12-18-2024 End: 35-94-0626Krbaag flowsSarah GUILLEN Work Phone: [facility] OBGYNStart: 12-18-2024 End: 96-89-3473Iffeqa flowsSarah Colbert PA Work Phone: noms [place] OBGYNStart: 12-18-2024 End: 06-36-7099Njkytlzjz Result EncounterNia GUILLEN Work Phone: no External Department UnsolicitedStart: 12-18-2024 End: 95-04-6267Bxmwsaxh Result EncounterNia GUILLEN Work Phone: noms External Department UnsolicitedStart: 12-06-2024 End: 83-45-4980smnyxfkkylPUEQCJI A DONNAMILLERNot AvailableStart: 12-06-2024 End: 60-80-8088Ooafeq outpatient visit 15 minutesCherise Jaimes NP Work Phone: [facility] HospitalComment on above:Acute diarrhea (Primary Dx); Nausea; Abdominal crampingStart: 09-26-2024 End: 30-30-7028Rssaofshazia Nolan MD Work Phone: noms NE FMStart: 09-26-2024 End: 92-42-8383Dbiqnqshazia Nolan MD Work Phone: noms NE FMStart: 09-26-2024 End: 97-58-8479Sapbxo outpatient visit 15 minutesRaquel Nolan MD Work Phone: noms NE FMComment on above:Intractable episodic headache, unspecified headache type (Primary Dx); Nausea; Facial tingling; Overweight; BMI 27.0-27.9,adultStart: 09-26-2024 End: 45-85-6386kkxfozbpjkXZRYZMayank Lopez AvailableStart: 06-15-2024 End: 26-03-4545Nbohvjshazia Nolan MD Work Phone: noms NE FMStart: 06-15-2024 End: 05-20-1389Gvfcjj Autumn Nolan MD Work Phone: noms NE FMStart: 06-15-2024 End: 73-69-3923Zxfald outpatient visit 25 minutesRaquel Nolan MD Work Phone: noms NE FMComment on above:Leukocytosis, unspecified type (Primary Dx); Gastroesophageal reflux disease, unspecified whether esophagitis present; BMI 26.0-26.9,adult; OverweightStart: 06-15-2024 End: 68-44-2697smeerysaeiLRDDE M RUGGLESNot AvailableStart: 06-11-2024 End: 47-73-1482Travfvufb department patient visitTim ThomasFacility:FTMCStart: 04-15-2024 End: 82-23-7482Jjwaaneyw department patient visitNarinder Kumar [facility] Start: 04-12-2024 End: 47-14-9294czlrlimraiIjwcfnef Ana WarnerFacility:[facility] NorwalkStart: 04-12-2024 End: 78-88-9133Cjttife encounter procedurePatricia Ana Warner [phone]-DqisjProv[facility] Start: 03-22-2024 End: 87-38-0237Yivkth Autumn Nolan MD Work Phone: noms NE FMStart: 03-22-2024 End: 98-92-4813Csunkq Autumn Nolan MD Work Phone: noms NE FMStart: 03-22-2024 End: 57-31-6678Pnelmp outpatient visit 15 minutesRaquel Nolan MD Work Phone: noms NE FMComment on above:Acute cough (Primary Dx); Nausea; Nasal congestion; Ear fullness, bilateral; BMI 27.0-27.9,adult; OverweightStart: 03-22-2024 End: 93-93-3570pjmvadwznnNXGZZ M RUGGLESNot AvailableStart: 03-20-2024 End: 40-52-0393Zkuxtgtkk department patient visitJohn ParenteFacility:FTMCStart: 03-15-2024 End: 32-55-9689jusjcedxmhFxnobuoz C BordnerFacility:FTMCStart: 12-22-2023 End: 59-87-8810Nbeqgw flowsheetNia GUILLEN Work Phone: noms BCP OBStart: 12-22-2023 End: 49-64-6078Tecvtz flowsheetNia GUILLEN Work Phone: noms [facility]CP OBStart: 12-22-2023 End: 77-35-0194Uycict outpatient visit 10 minutesNia GUILLEN Work Phone: noms BCP OBComment on above:Wellness examination (Primary Dx)Start: 12-22-2023 End: 70-86-5517Ljmlhkw encounter statusNia GULILEN Work Phone: [facility] Work Phone: Start: 12-14-2023 End: 63-02-2161vhfhguuwozGTJ L RAMEYFacility:FTMCStart: 12-14-2023 End: 45-67-8196Pxxnzwb encounter procedureNIA COLBERT [facility] Start: 12-13-2023 End: 41-07-4549Wyabwue encounter procedureNia GUILLEN Work Phone: [facility] Work Phone: Start: 12-13-2023 End: 06-73-5058Vrkgifdr preventive med est patient 18-39 yrsNia GUILLEN Work Phone: noms BCP OBComment on above:Well woman exam with routine gynecological exam; PCOS (polycystic ovarian syndrome); NauseaStart: 12-13-2023 End: 79-22-1370Uywnpp flowsheetNia Filemon GUILLEN Work Phone: noms BCP OBStart: 12-13-2023 End: 18-86-8325Rozmjhduj Result EncounterNia Filemon GUILLEN Work Phone: noms External Department UnsolicitedStart: 12-13-2023 End: 10-19-3440Pgolyffyh Result EncounterNia Filemon GUILLEN Work Phone: noms External Department UnsolicitedStart: 06-29-2023 End: 57-54-7917Pgvfertrk department patient visitAmberly Whitehead [facility] Start: 02-16-2023 End: 90-45-6974Fyzfuqijw department patient visitTrandana SiegelElizabeth Maury [facility] Start: 12-18-2022 End: 10-77-0645Hurodrv encounter Travis Aguirre [facility] Start: 12-18-2022 End: 66-42-8361bbrtqzasvuCxtkb M. DempseyFacility:[facility] CLINICtart: 06-24-2022 End: 99-13-5684zmitxuslmnFM SHAAN MIRYAM .Facility:Q5Yzcln: 33-84-4587Jwzahomip for preprocedural cardiovascular examinationDR SHAAN MIRYAM .[facility]: 06-10-2022 End: 96-16-7933ibcovhszdoAY SHAAN MIRYAM .Facility:E7Zkplf: 06-10-2022 End: 56-23-1743Nnogggjnr for preprocedural cardiovascular examinationDR SHAAN MIRYAM .Facility:P7Yypqm: 11-19-2021 End: 89-13-3401Fvqqcjj encounter procedureMaher SALAM [phone]-JncfzProv[facility] Hospital [facility] Start: 10-18-2021 End: 23-65-7137boedpmctjoMS COREY FAZIO .Facility:H1Sjwsz: 51-09-6131kwgqjbcawd DR SHAAN WITT .Facility:V9Kxmdk: 10-10-2021 End: 45-35-4948Fkrebzz encounter procedureJavier Gutierrez MD Work Phone: GastroenterologyComment on above:Constipation, unspecified constipation type (Primary Dx)Start: 09-17-2021 End: 76-17-4905Pxkdumicp department patient visitTeyldgaoberto Palm Dotrisharandy [facility] Start: 08-07-2021 End: 77-49-0167Lfa Drop offStepjaycobdanny MUNROE [facility] Start: 07-16-2021 End: 94-38-9539Djsgpkusq department patient visitAstrit H [facility] Start: 49-73-0184ZcuurbkkvdIYSPJO EHRENBERG [facility] Procedures DateProcedureProcedure DetailPerforming ClinicianStart: 62-58-3851KDABEMRPE VAGINITIS (HTRX)Nia GUILLEN Work Phone: Start: 20-62-4109Mowdt dip stick/tablet rgnt non-auto w/o micrscpAmy Filemon GUILLEN Work Phone: Start: 87-81-8327CTD,APTIMA HPV,AGE GDLNAmy Filemon GUILLEN Work Phone: Start: 42-79-8090VTG,APTIMA HPV,AGE GDLNAmy Filemon GUILLEN Work Phone: Start: 71-13-3566Eaffipfiu of intrauterine contraceptive deviceAstrit HajdariLigation of fallopian tubeJacinto Mendiola Plan of Treatment DateCare ActivityDetailAuthorStart: 12-25-2025 End: 22-01-9806Umpdunb encounter cxggoujgc10/22/2026 3:00 PM EDT Procedure Visit NOMChristal AGUERO [address] [place] [phone] Nia Colbert PA [address] [place], [place] [phone] NOMS Bright OBGYNStart: 01-24-2025 End: 97-35-9580Orecfgd encounter qkheiorkh83/22/2025 11:10 AM EDT Consult NOMChristal AGUERO [address] [place] [phone] Shaan Witt DO [address] [place], [place] [phone] [facility] OBGYNStart: 01-24-2025 End: 48-71-1387Hkwmavzxzqvf / ancillary services bzyunsttfn37/22/2025 10:00 AM EDT Ancillary Procedure [facility] Bright AGUERO [address] [place] [phone] NOMS [place] OBGYNStart: 12-18-2024 End: 39-93-0370Avazewv encounter procedureNOMS BCP OBComment on above:Arrived Start: 94-04-6697Zodkujoqi vaccinationNOMS HealthcareStart: 09-26-2024 End: 02-12-4884Gpoomtw encounter jkzroonhc95/24/2025 12:40 PM EDT Office Visit [facility] LORRAINE NUNEZ [address] [place] [phone], Hanna M, MD [address] [place] [address] ArrivedNOMS NE FMComment on above:ArrivedStart: 06-15-2024 End: 14-03-2277EKQ W Auto Differential panel - BloodCBC and differential Lab Routine Leukocytosis, unspecified type Expected: 06/15/2024 (Approximate), Expires: 06/15/2025[facility] Work Phone: comment on above:Expected: 06/15/2024 (Approximate), Expires: 06/15/2025Start: 06-15-2024 End: 41-28-9790Bqbwecd encounter glvjutmnp57/13/2025 10:40 AM EDT Office Visit [facility] LORRAINE [address] [place] [phone], Hanna M, MD [address] [place] [address] ArrivedNOMS NE FMComment on above:ArrivedStart: 03-22-2024 End: 04-29-5050Gfjmjjm encounter utudozdwm36/18/2024 12:40 PM EST Office Visit [facility] LORRAINE [address] [place] [phone], Hanna M, MD [address] [place] [address] ArrivedNOMS NE FMComment on above:ArrivedStart: 12-13-2023 End: 63-46-5353Mazsoym encounter tcgbqbydc99/09/2024 3:00 PM EDT Office Visit [facility] BCP OB [address] [place] [phone] Nia Colbert PA [address] [place] [address] ArrivedNOVA BCP OBComment on above:ArrivedStart: 12-13-2023 End: 94-27-8788Efddgq [Enzymatic activity/volume] in Serum or PlasmaLipase Lab Routine Well woman exam with routine gynecological exam PCOS (polycystic ovarian syndrome) Expected: 12/13/2023 (Approximate), Expires: 12/12/2024[facility] Comment on above:Expected: 12/13/2023 (Approximate), Expires: 12/12/2024Start: 12-13-2023 End: 31-26-7600Xiboz 1996 panel - Serum or PlasmaLipid panel Lab Routine Well woman exam with routine gynecological exam PCOS (polycystic ovarian syndrome) Expected: 12/13/2023 (Approximate), Expires: 12/12/2024[facility] HealthcareComment on above:Expected: 12/13/2023 (Approximate), Expires: 12/12/2024Start: 12-05-2023 Influenza vaccinationInfluenza Vaccine (#1)[facility] HealthcareStart: 12-04-2021 Influenza vaccinationINFLUENZA (#1)[facility]: 87-31-1046WEF TESTING PAP TESTINGUC [facility] Hospitaltart: 54-46-2301Nbrpb microalbumin profile DTAP,TDAP,TD (1 - Tdap)[facility]: 16-04-6328OTAZICUYW SCREENING (18-24)CHLAMYDIA SCREENING (18-24)[facility]: 99-64-4225CX (GONORRHEA) SCREENING (18-24)GC (GONORRHEA) SCREENING (18-24)[facility] Start: 45-58-2968FKCGXXQON C SCREENINGHEPATITIS C SCREENINGPrem[facility] Health At[facility] Start: 82-31-7697CMT SCREENINGHIV SCREENINGCleSelect Medical [facility], Beachwoodtart: 71-55-1968QXTF TO ADULT TRANSITION ANNUAL ASSESSMENTPEDS TO ADULT TRANSITION ANNUAL ASSESSMENT [facility]: 94-86-9225Mzonm depression screening assessmentDEPRESSION SCREENINGUC [facility] Hospitaltart: 85-22-7951WQKV TO ADULT TRANSITION INITIAL DISCUSSIONPEDS TO ADULT TRANSITION INITIAL DISCUSSIONUC [facility] Chester Hospitaltart: 77-62-1367GVG VACCINE (1 - 2-dose series)HPV VACCINE (1 - 2-dose series) [facility]: 93-11-0950FOGYEMMORBKTK B: Consider based on risk (1 of 2 - Risk Bexsero 2-dose series)MENINGOCOCCAL B: Consider based on risk (1 of 2 - Risk Bexsero 2-dose series)[facility]: 83-90-8614WITPIAHFCMFA (1 - PCV)PNEUMOCOCCAL (1 - PCV)[facility]: 12-98-1851NKEYC-19 VACCINE (#1) COVID-19 VACCINE (#1)[facility] End: 39-53-2167PWJGM [place] ANORECTAL MANOMETRYADULT [place] [facility] Endoscopy Routine Constipation, unspecified constipation type 1 [facility]ur[facility] 10[facility]10[facility] [facility] Work Phone: Comment on above:1 Occurrences starting 10/10/2021 until 3CBC W Auto Differential panel - BloodCBC and differential Lab Routine Well woman exam with routine gynecological exam PCOS (polycystic ovarian syndrome) Ordered: 12/13/2023[facility] HealthcareComment on above:Ordered: 12/13/2023 CHLAMYDIA TRACHOMATIS (GENITO/STI)CHLAMYDIA TRACHOMATIS (GENITO/STI) Lab Routine Vaginal discharge Ordered: 12/18/2024[facility] HealthcareComment on above:Ordered: 12/18/2024omprehensive metabolic 2000 panel - Serum or PlasmaComprehensive metabolic panel Lab Routine Well woman exam with routine gynecological exam PCOS (polycystic ovarian syndrome) Ordered: 12/13/2023[facility] HealthcareComment on above:Ordered: 12/13/2023ytology Cervical or vaginal smear or scraping studyPap Smear Pathology and Cytology Routine Well woman exam with routine gynecological exam Ordered: 12/13/2023[facility] Work Phone: comment on above:Ordered: 12/13/2023ytology Cervical or vaginal smear or scraping studyPap Smear Pathology and Cytology Routine Well woman exam with routine gynecological exam Ordered: 12/18/2024[facility] Work Phone: comment on above:Ordered: 12/18/2024Hemoglobin A1c/Hemoglobin.total in BloodHemoglobin A1c Lab Routine Well woman exam with routine gynecological exam PCOS (polycystic ovariansyndrome) Ordered: 12/13/2023 [facility] HealthcareComment on above:Ordered: 12/13/2023Neisseria gonorrhoeae DNA [Presence] in Unspecified specimen by PRASHANT with probe detectionNeisseria gonorrhea DNA probe, direct Lab Routine Vaginal discharge Ordered: 12/18/2024 [facility] HealthcareComment on above:Ordered: 12/18/2024SURESWAB(R) ADVANCED VAGINITIS PLUS, TMASURESWAB(R) ADVANCED VAGINITIS PLUS, TMA Pathology and Cytology Routine Exposure to STD Ordered: 12/18/2024[facility] HealthcareComment on above:Ordered: 12/18/2024Thyrotropin [Units/volume] in Serum or PlasmaTSH Lab Routine Well woman exam with routine gynecological exam PCOS (polycystic ovarian syndrome) Ordered: 12/13/2023[facility] HealthcareComment on above:Ordered: 4[facility] Immun[facility] Immunization DateImmunizationNotesCare YzazsutiAbokppnk66-28-9231oxqsfht toxoid, reduced diphtheria toxoid, and acellular pertussis vaccine, adsorbedNia GUILLEN Work Phone: [facility] CenterMgggersxyd71-10-9216qmizxtj toxoid, unspecified formulationSelect At Bellevilleit [facility]imaComment on above:Result Comment: Done at Health DepartmentResult Comment: Done at Health Department 00-79-3168rjflqzv toxoid, reduced diphtheria toxoid, and acellular pertussis vaccine, adsorbedMaher SALAM 993-0920Smhukl-VoeguProvidence Hospital Digestive Health 10-017315-71-8657ryoaolige A vaccine, unspecified formulation Aguilar SALAM 725-3563Ftiqfw-JstykProvidence Hospital Digestive Health 10-448555-87-1109BES, unspecified formulationMaher SALAM 606-3051Lzkpba-SpgonProvidence Hospital Digestive Health 10-462859-12-9305gthaevhhyswbw B vaccine, fully recombinant Aguilar SALAM 742-3591Lzsdmq-PtnczProvidence Hospital Digestive Health 08-551151-71-7073FSA, unspecified formulationOkher SALAM 556-8549Nbpcab-WzczsProvidence Hospital Digestive Health 09-664270-43-1026rjzsibzhjrgxt ACWY vaccine, unspecified formulationOkher SALAM 804-6534Sryirx-VpfwxProvidence Hospital [facility] Health 09-825053-02-1293wscwokhpwhcyo polysaccharide (groups A, C, Y and W-135) diphtheria toxoid conjugate vaccine (MCV4P)Nia GUILLEN Work Phone: [facility] CenterKmafcvotba23-91-0930sovohlu toxoid, reduced diphtheria toxoid, and acellular pertussis vaccine, adsorbedMaher SALAM 989-9225Tbuahm-UuqvtProvidence Hospital Digestive Health 11842348-90-3664hyoka cghjimjmx-V5X8-37, preservative-free, injectableNia GUILLEN Work Phone: [facility] CenterSoijfuhzzy65-78-0726ludsjftayi, tetanus toxoids and acellular pertussis vaccineNia GUILLEN Work Phone: [facility] CenterEmkkuropee69-51-5293ctdjjxkkoi, tetanus toxoids and acellular pertussis vaccine, unspecified formulationNia GUILLEN Work Phone: [facility] CenterUaqtdwqrjm69-88-4614NGdY, unspecified formulation Aguilar SALAM 947-3284Sibwwl-AgikwProvidence Hospital Digestive Health 10104393-73-5764tkxnrss, mumps and rubella virus vaccineOkher SALAM 454-1919Xdcrop-ApxubProvidence Hospital Digestive Health 10314202-32-2450oojqbfahgm vaccine, unspecified formulation Nia GUILLEN Work Phone: [facility] CenterAdtdbmomge92-81-7976bitlcjnckefr conjugate vaccine, 7 valSaad GUILLEN Work Phone: [facility] CenterYlvnxnxwyf13-90-6225xqwaumzvjfhj conjugate vaccine, 7 valSaad GUILLEN Work Phone: [facility] CenterTwbfgbszzh60-16-7628mhyygedlya, tetanus toxoids and acellular pertussis vaccineNia GUILLEN Work Phone: [facility] CenterVkdrvmsiku73-93-4400rciwihjupj, tetanus toxoids and acellular pertussis vaccine, unspecified formulationNia GUILLEN Work Phone: [facility] CenterDtxtcqiubg23-20-5562FDpO, unspecified formulation Aguilar SALAM 152-2772Mhahuf-JrllqProvidence Hospital Digestive Health 09-041142-65-0790bldzrvoaurb influenzae type b vaccine, PRP- OMP conjugateMaher SAL 612-2345Fqtzop-SvblvProvidence Hospital Digest[facility] Health 09-421849-70-0590jqwkzzi, mumps and rubella virus vaccineMaher SALAM 995-2153Xsvxbw-XzllbProvidence Hospital Digestive [facility] 09486348-10-3503gsbbrevzcj vaccine, inactivatedAmy Filemon GUILLEN Work Phone: [facility] CenterDhcwggyjkw95-90-9663ttzfxqmgrc vaccine, unspecified formulationMaher SALAM 517-7761Iwizds-LintrProvidence Hospital Digestive Health 01013844-55-3330pdctaekdjq, tetanus toxoids and acellular pertussis vaccineAmy Filemon GUILLEN Work Phone: [facility] CenterEjffasiykx83-37-3833wuhrpjerxx, tetanus toxoids and acellular pertussis vaccine, unspecified formulationAmy Filemon GUILLEN Work Phone: [facility] CenterJvqndygboc97-77-3405ONcY, unspecified formulation Aguilar SAL 030-6102Nyujmi-IxcxmProvidence Hospital Digestive Health 01784788-09-7807owhmcmqyezg influenzae type b vaccine, PRP- OMP conjugateCatskill [facility] 008-7444Ddkatn-JyyofProvidence Hospital Digestive [facility] 01161709-05-8717yuvppaqwn B vaccine, pediatric or pediatric/adolescent dosageMaher SALAM 400-8014Gluato-KnxedProvidence Hospital Digestive Health 11522576-55-4467azbzfriyce, tetanus toxoids and acellular pertussis vaccineAmy Filemon GUILLEN Work Phone: [facility] CenterWzzkafttrc19-89-2882ckapaxvcac, tetanus toxoids and acellular pertussis vaccine, unspecified formulationAmy Filemon GUILLEN Work Phone: [facility] CenterKfnmqhrlhz33-44-1638KReF, unspecified formulation Aguilar SALAM 261-6783Xkabgu-BptmoProvidence Hospital Digestive Health 11859500-65-6131npohpmvssda influenzae type b vaccine, PRP- OMP conjugateMaher SALAM 405-4108Lmokui-QqmicProvidence Hospital Digestive Health 11120223-48-6140zowecnicoa vaccine, inactivatedAmy Filemon PA Work Phone: [facility] CenterBicoobhihh08-66-1765csshndxalc vaccine, unspecified formulationMaher SALAM 628-9157Tjwfef-CpbebProvidence Hospital Digestive Health 09315196-49-4333lghhiabvsp, tetanus toxoids and acellular pertussis vaccineAmy Filemon PA Work Phone: [facility] CenterAfqmywgoke96-44-0749szowpssgwx, tetanus toxoids and acellular pertussis vaccine, unspecified formulationAmy Filemon PA Work Phone: [facility] CenterHmxbvrhuzo85-79-4308FWrJ, unspecified formulation Aguilar SALAM 819-1591Gfokzs-HnbfzProvidence Hospital Digestive Health 09150783-85-7003dykxtojthaj influenzae type b vaccine, PRP- OMP conjugateMaher SALAM 271-4016Owffbt-VudkxProvidence Hospital Digestive Health 09302907-63-2797thbbvbbot B vaccine, pediatric or pediatric/adolescent dosageMaher SALAM 010-2362Fwtwoh-OiwtnProvidence Hospital Digestive Health 09500989-37-3000fmnvgrabbh vaccine, inactivatedAmy [place] PA Work Phone: [facility] CenterJxqkvidiuj19-89-6811gfdweekhie vaccine, unspecified formulationMaher SALAM [phone]-PgxprProvidence Hospital Digestive Health [id number] B vaccine, pediatric or pediatric/adolescent dosageMaher SALAM [phone]-MllakProvidence Hospital [facility] Health NEGATED: Highlighted row has not occurred!03-21-2019 influenza virus vaccine, live, attenuated, for intranasal useLucila Irinachidi [facility] Payers DatePayer CategoryPayerPolicy [id number] [place] [facility] [facility] [id number].9.250576.391406.22015-49-6749TrqvfapRGSE BS [id number] 2023-Present [phone] [address] [place] [address] 1.2.840.016560.1.13.693.2.7.3.482382.06628-54-3209[id number] [place] MED[place] [facility] MEDICAID [id number] 2017-Present [phone] [address] [place] [address] [id number] 1.2.840.394703.1.13.159.2.7.3.048[id number] 2.16840.1.147592.3.57[id number] 2.16840.1.129558.3.57[id number] 2.16840.1.921373.3.579.[id number] 2.16.840.1.032895.3.579.[id number] 2.16.840.1.968280.3.57[id number] 2.16.840.1.017086.3.57[id number] 2.16840.1.851058.3.57[id number] 2.16840.1.851467.3.57[id number] 2.16840.1.546218.3.57[id number] 2.16840.1.805716.3.57[id number] 2.16840.1.155367.3.57[id number] 2.16840.1.317796.3.57[id number] 2.16840.1.580190.3.57[id number] 2.16840.1.543814.3.57[id number] 2.16840.1.239891.3.579.[id number] 2.16840.1.694125.3.57[id number] 2.16.840.1.045049.3.57[id number] 2.16.840.1.866672.3.579.2.6[id number] 2.16.840.1.942275.3.579.2.595722-90-9723Kbtjsuo95458744 2.16.840.1.981081.3.57[id number] 2.16.840.1.728809.3.579.2.540429-49-7292Vyrftbg87820648 2.16.840.1.429203.3.579.2.594449-22-4385Utmbevr45328093 2.16.840.1.758594.3.579.2.528275-67-3296Rfbchlr7701113 2.16.840.1.932009.3.579.2.10[id number] 2.16.840.1.698952.3.579.2.084088-39-6516Oxau-[id number] Social History DateTypeDetailFacilityTobaccoCurrent every day smokerFulton County Health CenterComment on above:currentcurrentStart: 08-27-2023 End: 06-42-4177Fso Assigned At BirthFemalProMedica Bay Park Hospitaltart: 38-12-2949Jenxqjv smoking status NHISOccasional tobacco smokerPremier Health Atrium Medical Center History of tobacco useCigarette SmokerUC West Chester Hospitaltart: 10-10-2021 End: 03-24-0517Unlihbbccx smoked current (pack per day) - Fhtnlujm3TLGQResearch Psychiatric CenterStart: 76-89-4096Xcrxcic intakeEx-drinker (finding)[facility] Start: 08-00-0227Ggaopor Commentsmokes 1 packs every 2 daysPremier Health Atrium Medical Center Start: 23-00-3179Kdi Assigned At BirthNot on fileUC West Chester Hospitaltart: 12-18-2022 End: 37-39-4674Bawggii smoking statusLight tobacco smoker (finding)[facility] CareComment on above:currentTobacco smoking statusNo Smoking Status EnteredTrinity Health System Twin City Medical Centertart: 09-14-2022 End: 12-96-0121Ehgqeku smoking status NHISSmokes tobacco dailyNOMS Healthcare Start: 09-14-2022 End: 40-08-9807Ylwoqtz use and exposureSmokeless tobacco non-userNOMS Healthcare Start: 12-13-2023 End: 20-18-2674Gwyrduefv beverage intakeLifetime non-drinker (finding)[facility] HealthcareStart: 85-85-9193Xhzjrcz CommentCaffeine intake: occasionalNOMS HealthcareStart: 17-29-8327EmnAfkowhRLHL Healthcare Functional Status SegrYrxvuvuhkhUhnuytWqgicltv95-34-6715Gkhmpro Health Questionnaire 2 item (PHQ- 2) [Reported]Research Psychiatric CenterRrwndckzxk20-82-4230Crmqopbups StatusN/[facility]01-08-2025Functional StatusN/[facility] 82-18-2903Jqojyqxnaz StatusN/[facility]03-26-2024Functional StatusN/[facility]11-14-2023Functional StatusN/[facility]06-15-2022Functional StatusN/[facility] Clinical Notes 07-16-2021 to 01-24-2025 Note Date & KnodQgmpRrqhkgil42-49-4521 History of Present illness Narrative* Krista Mandujano - 01/24/2025 11:10 AM EDT Reason for Appointment: Patient ID: Socorro Joseph is a 24 y.o. female who presents for Pre-op Visit Patient presents today for Pre Op appointment. Patient is scheduled to undergo Da Aliya assisted Laparoscopic Hysterectomy, possible exploratory laparotomy, possible BSO, possible cystoscopy on 02/19/[address] Witt at [facility]. MEDICATIONS Current Outpatient Medications Medication Instructions famotidine [...] II, CUONG III History of being hospitalized [facility] inflammation of stomach and ovarian cyst pain [...] ENDOMETRIAL ABLATION 02/05/2023 PAP SMEAR 08/12/2021 negative MD SALPINGECTOMY COMPLETE/PARTIAL UNI/BI SPX 06/24/2022 robotic, fulguration [...] nursing note reviewed. Exam conducted with a program dir present. Vitals: Estimated body mass index is 28.4 kg/m as calculated from the following: Height [...] reviewed, and patient is to proceed to [facility] OR. Follow Up: Patient is to follow up at 1 & 6 weeks post operative to assess proper healing and recovery from procedure. Documented by Debi Nunez LPN on behalf of: Shaan Witt DO documented in this encounterResearch Psychiatric [id number] History of Present illness Narrative* WILMER Hernandez - 12/18/2024 3:00 PM EDT Reason for Appointment: Patient [...] II, CUONG III History of being hospitalized [facility] inflammation of stomach and ovarian cyst pain [...] ENDOMETRIAL ABLATION 02/05/2023 PAP SMEAR 08/12/2021 negative MD SALPINGECTOMY COMPLETE/PARTIAL UNI/BI SPX 06/24/2022 robotic, fulguration [...] nursing note reviewed. Exam conducted with a program dir present. Vitals: Estimated body mass index is [...] behalf of: WILMER Hernandez documented in this encounterResearch Psychiatric CenterPjomxusyle25-46-6229 History of Present illness Narrative* Cherise Jaimes NP - 12/06/2024 10:40 AM EDT Images from the original note were not included. Scoorro Joseph is a 24 y.o. female presents with chief complaint of Diarrhea and Nausea HPI: History of Present Illness The patient is a 24-year-old female who presents via virtual visit via phone for an acute complaint. Symptoms began 5 days ago with a stomach bug, including frequent bathroom visits. This morning, shewoke up feeling nauseous, and the nausea has [...] symptoms have been reported. She does not believeshe consumed any contaminated food and has not [...] in stools, recent travel, antibiotic use or exposureto C. difficile. - Advised to maintain a [...] carefully and recognize, using context, where the sub stitutions have occurred. documented in this encounterResearch Psychiatric CenterNqoubqffih18-73-3528 History of Present illness Narrative* Raquel Nolan MD - 09/26/2024 12:40 PM EDT Images from the original note were not [...] tx, side effects of meds and concerning sxto monitor for. If no improvement, consider migraine cocktail. Also discussed possible need for further evaluation with imaging if sx persist. documented in this encounterResearch Psychiatric CenterAknvusclkr73-64-1374 History of Present illness Narrative* Raquel Nolan MD - 06/15/2024 10:40 AM EDT Images from the original note were not [...] Flowsheet Row Office Visit from 06/15/2024 in [facility] with Raquel Nolan MD Hospital Information ED, Hospital or Usp Facility Discharge? ED Patient has been contacted within 2 days of being seen in the ED Yes Diagnosis Virus Discharge Date 06/11/24 Discharged To: Home Setting Discharge [place] Engagement Admission Date 06/11/24 Medications Discharge medications [...] of Systems General: Denies fever, chills, fatigue, WHITNEY or weight loss/gain CV: Denies CP, palpitations [...] mg) by mouth Daily Do not crush, chew,or split. - famotidine (Pepcid) 40 MG tablet; [...] or fail to improve. documented in this encounterResearch Psychiatric [id number] NoteED Patient Education Note Gastroenterology Viral Gastroenteritis, Adult [...] including rotavirus and norovirus. Norovirus is the mostcommon cause in adults. You can get sick [...] than 2 years. ??? Live in a care home. ??? Travel on cruise ships. What are the signs or symptoms? Symptoms of this condition start suddenly 1?3 days after exposure to a virus. Symptoms may last fora few days or for as long as [...] focus of treatment is to prevent dehydration andrestore lost fluids (rehydration). This condition may be [...] caffeine, such as energy drinks, sports drinks, andsoda. ??? Avoid spicy or fatty foods. ??? Avoid alcohol. General instructions ??? Wash your hands often, especially after having diarrhea or vomiting. If soap and water are not available, use hand vibrating screen operator. ??? Make sure that all people in your household wash their hands well and often. ??? Take jsqp-bio-rpntgrx and prescription medicines only as told by [...] emergency. Get help right (more content not included)...[facility]01-12-2025 Evaluation + Plan note Extracted from:Title:ED NoteAuthor:Narinder Kumar DODate:04/16/24 Abdominal pain, acute, epiga stric (R10.13: Epigastric pain) N&V (nausea and vomiting) (R11.2: Nausea with vomiting, unspecified) Orders: dicyclomine, 10 mg = 1 cap(s), Oral, QID, PRN Nausea/Vomiting, For abdominal cramping, # 16 cap(s),Refills(s) 0, Pharmacy: [facility], 177, cm, 04/15/24 21:15:00 EST, Height/Length Dosing, 83.8, kg, 04/15/24 21:15:00 EST, Weight Dosing dicyclomine, 20 mg = 1 tab(s), Tab, Oral, Once, Stop date 04/16/24 2:15:00 EST, STAT, Start date 04/16/24 2:15:00 EST, 04/16/24 2:15:00 EST famotidine, 20 mg = 2 mL, Soln-IV, IV Push, Once, Stop date 04/15/24 22:42:00 EST, STAT, Start date04/15/24 22:42:00 EST, 04/15/24 22:42:00 EST ketorolac, 15 mg = 1 mL, Injection, IV Push, Once, Stop date 04/15/24 22:41:00 EST, STAT, Start date 04/15/24 22:41:00 EST, 04/15/24 22:41:00 EST ondansetron, 4 mg = 1 tab(s), Oral, q8hr, PRN Nausea/Vomiting, # 12 tab(s), Refills(s) 0, Pharmacy:[facility], 177, cm, 04/15/24 21:15:00 EST, Height/Length Dosing, 83.8, kg, 04/15/24 21:15:00 EST, Weight Dosing ondansetron, 4 mg = 2 mL, Injection, IV Push, Once, Stop date 04/15/24 22:41:00 EST, STAT, Start date 04/15/24 22:41:00 EST, 04/15/24 22:41:00 EST ondansetron, 4 mg = 1 tab(s), Tab-Dis, Oral, Once, Stop date 04/16/24 2:15:00 EST, STAT, Start date04/16/24 2:15:00 EST, 04/16/24 2:15:00 EST promethazine 25 [...] CT Abdomen/Pelvis w/ Contrast eGFR Lipase Level [facility] 01-12-2025 Hospital Discharge instructions Patient Education 04/16/2024 [...] Follow these instructions at home: Medicines Take tfyt-ozq-mqfolip and prescription medicines only as told by [...] provider. Document Revised: 01/06/2023 Document Reviewed: 01/06/2023 [email or web address] Patient Education 2023 [employer]. Follow Up Care 04/15/2024 20:34:28 With:Raquel Nolan Address: [address] [place] [address] [facility] (1) When:04/19/2024 Comments:Call the office of your [...] you develop any new or worsening symptoms. [facility] 01-12-2025 NoteED Patient Education Note Gastroenterology Abdominal [...] these instructions at home: Medicines ??? Take zkue-ppk-jxmrehi and prescription medicines only as told by [...] provider. Document Revised: 01/06/2023 Document Reviewed: 01/06/2023 [employer] Patient Education ? 2023 Guided Delivery SystemsElizabethOhiohealth O'[facility] 04-12-2024 Hospital Discharge instructions Patient Education 04/12/2024 18:34:01 Influenza, Adult, Kgna-uo-Aesu Influenza, Adult Influenza is also called the [...] Your doctor may want you to: Take vhow-wnn-szpoqea medicines. Drink plenty of fluids. The flu [...] foods include: ?Bananas. ?Applesauce. ?Rice. ?Lean meats. ?[place]. ?Crackers. Do not eat or drink: ?Fluids that have a lot of sugar or caffeine. ?Alcohol. ?Spicy or fatty foods. General instructions Take zbaa-fvu-axialhc and prescription medicines only as told by [...] use soap and water, use alcohol-based hand vibrating screen operator. Keep all follow-up visits. How is this [...] spreads easily from person to person. Take kwaz-kjc-dpermpt and prescription medicines only as told by your doctor. Getting a flu shot every year is the best way to not get the flu. This information is not intended to replace advice given to you by your health care provider. Make sure you discuss any questions you have with your health care provider. Document Revised: 11/06/2020 Document Reviewed: 11/08/2020 [email or web address] Patient Education 2023 [employer]. Follow Up Care 04/12/2024 13:30:03 With:An LOERA, Raquel Penny Address: [place] [place] [address]- When: Unknown [facility] 01-08-2025 NotePatient Education Infectious [...] doctor may want you to: ??? Take fuxi-jfu-ehlximv medicines. ??? Drink plenty of fluids. The [...] Applesauce. ? Rice. ? Lean meats. ? [place]. ? Crackers. ??? Do not eat or drink: ? Fluids that have a lot of sugar or caffeine. ? Alcohol. ? Spicy or fatty foods. General instructions ??? Take gshd-anj-rclttbx and prescription medicines only as told by [...] use soap and water, use alcohol-based hand vibrating screen operator. ??? Keep all follow-up visits. How is [...] [place] ??? Do (more content not included)...[facility]12-18-2024 History of Present illness Narrative* Raquel [...] timestamp. Flowsheet Row Documentation from 03/21/[address] [facility] with Amanda Rogers MA Hospital Information ED, Hospital or Usp Facility Discharge? ED Patient has been contacted within 1 week of being seen in the ED Yes Discharge Date 03/20/24 Discharged To: Home Setting [facility] Admission Date 03/20/24 Medications Discharge [...] of Systems General: Denies fever, chills, fatigue, WHITNEY or weight loss/gain CV: Denies CP, palpitations [...] or fail to improve. documented in this encounterResearch Psychiatric [id number] Hospital Discharge instructions Patient Education 03/20/2024 09:23:47 [...] Follow these instructions at home: Medicines Take dlfq-kyn-ifgzrig and prescription medicines only as told by [...] provider. Document Revised: 11/20/2022 Document Reviewed: 11/20/2022 [email or web address] Patient Education 2023 [email or web address] 03/20/2024 09:23:47 Abdominal Pain, Adult Abdominal Pain, [...] Follow these instructions at home: Medicines Take zymu-itz-lctzwpn and prescription medicines only as told by [...] provider. Document Revised: 01/06/2023 Document Reviewed: 01/06/2023 Elsevier Patient Education 2023 [employer]. Follow Up Care 03/20/2024 07:17:55 With:Raquel Nolan Address: [address] [place] [address]- Business (1) When:03/23/2024 09:16:32 [facility] 12-16-2024 NoteED Patient Education Note ENT Cough, [...] these instructions at home: Medicines ??? Take ogbm-rbz-rrmfnsm and prescription medicines only as told by [...] provider. Document Revised: 11/20/2022 Document Reviewed: 11/20/2022 [employer] Patient Education ? 2023 [employer]. Gastroenterology Abdominal Pain, Adult Pain in the [...] these instructions at home: Medicines ??? Take shqx-tih-muytmlp and prescription medicines only as told by [...] discuss any qu (more content not included)...[facility]12-11-2024 NotePatient Education ENT Cough, Adult A [...] these instructions at home: Medicines ??? Take gvfv-xkv-lahgmsz and prescription medicines only as told by [...] provider. Document Revised: 11/20/2022 Document Reviewed: 11/20/2022 [email or web address] Patient Education ? 2023 [email or web address] Infectious Disease Viral Respiratory Infection A [...] home: Managing pain and congestion ??? Take xgea-wxl-wzwssbp and prescription medicines only as told by [...] is this pr (more content not included)...[facility] 12-22-2023 History of Present illness Narrative* WILMER Hernandez - 12/22/2023 10:30 AM EDT Reason for Appointment: Patient ID: Socorro Joseph is a 23 y.o. female who presents for No chief complaint on file. Patient presents today via telephone call for a telehealth appointment. Patients Phone #: [phone] (mobile) Current Medications: has a current medication list which includes the following prescription(s): albuterol hfa, ibuprofen, metformin, ondansetron, and ondansetron odt. Medical History: Active Ambulatory Problems Diagnosis Date Noted Depression ([facility]) 09/14/2022 CUONG II (cervical intraepithelial neoplasia II) 09/24/2022 Colitis 09/24/2022 Constipation 09/24/2022 Nausea 09/24/2022 Mechanical complication of intrauterine contraceptive device 09/24/2022 Moderate episode of recurrent major depressive disorder (HCC) ([facility]) 09/24/2022 Pelvic and perineal pain 09/24/2022 Cigarette [...] hospitalized History of cervical dysplasia Post depression ([facility]) Smoker Family History Problem Relation Name Age [...] ENDOMETRIAL ABLATION 02/05/2023 PAP SMEAR 08/12/2021 negative MD SALPINGECTOMY COMPLETE/PARTIAL UNI/BI SPX 06/24/2022 robotic, fulguration [...] patient on the phone. Documented by WILMER Hernanedz on behalf of: Lalo Hernandez for Appointment: Patient ID: Socorro Joseph is a 23 y.o. female who presents for No chief complaint on file. Patient presents today via telephone call for a telehealth appointment. Patients Phone #: [phone] (mobile) Current Medications: has a current medication [...] ENDOMETRIAL ABLATION 02/05/2023 PAP SMEAR 08/12/2021 negative MD SALPINGECTOMY COMPLETE/PARTIAL UNI/BI SPX 06/24/2022 robotic, fulguration [...] behalf of: WILMER Hernandez documented in this encounterResearch Psychiatric [id number] History of Present illness Narrative* WILMER Hernandez [...] Active Ambulatory Problems Diagnosis Date Noted Depression ([facility]) 09/14/2022 CUONG II (cervical intraepithelial neoplasia II) [...] of cervical dysplasia Post depression (CMS/HCC) Smoker HISTORY PAST MEDICAL HISTORY SOCIAL HISTORY Past Medical History: Diagnosis Date Constipation History of abnormal cervical Pap smear Colpo: CUONG II; Leep - CUONG II, CUONG III History of being hospitalized [facility] inflammation of stomach and ovarian cyst pain History of cervical dysplasia Pelvic and perineal pain Post depression (CMS/HCC) Smoker Social History Tobacco Use Smoking status: [...] ENDOMETRIAL ABLATION 02/05/2023 PAP SMEAR 08/12/2021 negative MD SALPINGECTOMY COMPLETE/PARTIAL UNI/BI SPX 06/24/2022 robotic, fulguration [...] nursing note reviewed. Exam conducted with a program dir present. Vitals: Estimated body mass index is [...] behalf of: WILMER Hernandez documented in this encounterResearch Psychiatric [id number] Hospital Discharge instructions Patient Education 06/30/2023 00:02:57 Nausea and Vomiting, Adult, Aylv-dg-Qave Nausea and Vomiting, Adult Nausea is feeling [...] fruit juice). ?Low-calorie sports drinks. Eat bland, trtp-bh-ttelxt foods in small amounts as you are able, such as: ?Bananas. ?Applesauce. ?Rice. ?Low-fat (lean) meats. ?[place]. ?Crackers. Avoid drinking fluids that have a lot of sugar or caffeine in them. This includes energy drinks, sports drinks, and soda. Avoid alcohol. Avoid spicy or fatty foods. General instructions Take jjrm-pah-fizdahg and prescription medicines only as told by your doctor. Drink enough fluid to keep your pee (urine) pale yellow. Wash your hands often with soap and water for at least 20 seconds. If you cannot use soap and water, use hand vibrating screen operator. Make sure that everyone in your home [...] your doctor about eating and drinking. Take sxzl-qir-siyrxnr and prescription medicines only as told by your doctor. Contact your doctor if your symptoms get worse or you have new symptoms. Keep all follow-up visits. This information is not intended to replace advice given to you by your health care provider. Make sure you discuss any questions you have with your health care provider. Document Revised: 09/26/2021 Document Reviewed: 09/26/2021 [email or web address] Patient Education 2022 [email or web address] 06/30/2023 00:02:57 General Headache Without Cause, Gjbi-rk-Ibhe General Headache Without Cause A headache is pain or discomfort you feel around the head or neck area. There are many causes and types of headaches. In some cases, the cause may not be found. Follow these instructions at home: Watch your condition for any changes. Let your doctor know about them. Take these steps to help with your condition: Managing pain Take qbvx-bqk-vulzvhe and prescription medicines only as told by [...] away. Call your local emergency services (911 inthe [place] Do not wait to see if [...] provider. Document Revised: 08/20/2021 Document Reviewed: 08/20/2021 [email or web address] Patient Education 2022 [employer]. 06/30/2023 00:02:57 Abdominal Pain, Adult, Rvqk-yh-Bfsm Abdominal Pain, Adult Many things can cause belly (abdominal) pain. Most times, belly pain is not dangerous. Many cases of belly pain can be watched and treated at home. Sometimes, though, belly pain is serious. Your doctor will try to find the cause of your belly pain. Follow these instructions at home: Medicines Take awxi-qex-dzrbbao and prescription medicines only as told by [...] your belly pain for any changes. Take tbui-cnf-vzbwsng and prescription medicines only as told by [...] provider. Document Revised: 07/31/2019 Document Reviewed: 07/31/2019 [email or web address] Patient Education 2022 [employer]. Follow Up Care 06/29/2023 19:12:13 With:Raquel Nolan Address: [address] [place] [address]- Business (1) When:07/02/2023 Comments:You can take the medications as prescribed as needed for pain. Please follow-up with your primary care doctor in the next 2 to 3 days for further evaluation management. Please return to the ED for any new or worsening symptoms. [facility]03-26-2024 Evaluation + Plan noteExtracted from: Title:ED NoteAuthor:Amberly Whitehead DO ADate:06/29/23 Abdominal pain, acute (R10.9 : Unspecified abdominal [...] day(s), # 9 tab(s), Refills(s) 0, Pharmacy: [facility], 175, cm, 06/29/23 19:28:00 EDT, Height/Length Dosing, 82, kg, 06/29/23 19:28:00 EDT, Weight Dosing metoclopramide, 10 mg = 2 mL, Injection, IV Push, Once, Stop date 06/29/23 21:00:00 EDT, STAT, Start date 06/29/23 21:00:00 EDT, 06/29/23 21:00:00 EDT naproxen, 500 mg = 1 tab(s), Oral, BID, PRN for pain, # 20 tab(s), Refills(s) 0, Pharmacy: [facility], 175, cm, 06/29/23 19:28:00 EDT, Height/Length Dosing, 82, kg, 06/29/23 19:28:00 EDT, Weight Dosing ondansetron, 4 mg = 1 tab(s), Oral, q8hr, # 12 tab(s), Refills(s) 0, Pharmacy: [facility], 175, cm, 06/29/23 19:28:00 EDT, Height/Length Dosing, 82, kg, 06/29/23 19:28:00 EDT, Weight Dosing Sodium Chloride 0.9% intravenous solution, 1,000 mL, Soln-IV, IV, Once, Stop date 06/29/23 21:00:00EDT, STAT, Start date 06/29/23 21:00:00 EDT, Infuse over 61, minute(s) Basic Metabolic Panel Beta hCG Qual CBC w/ Auto Diff CT Abdomen/Pelvis w/ Contrast CT Head or Brain w/o Contrast eGFR Hepatic Function Panel Lipase Level UA with Cult Rflx [facility]11-14-2023 Evaluation + Plan noteExtracted from: Title:ED NoteAuthor:Jacinto Mendiola DO S.Date:02/16/23 Diarrhea (R19.7: Diarrhea, u nspecified) N&V (nausea [...] Level Saline Lock Insert Troponin 0 Hr. [facility]11-14-2023 Hospital Discharge instructions Patient Education 02/16/2023 07:09:21 [...] water added (diluted fruit juice). Eat bland, gyww-ow-txunvg foods in small amounts as you are able. These foods include bananas, applesauce, rice, lean meats, toast, and crackers. Avoid fluids that contain a lot of sugar or caffeine, such as energy drinks, sports drinks, and soda. Avoid alcohol. Avoid spicy or fatty foods. General instructions Take zywy-tbs-raicciv and prescription medicines only as told by your health care provider. Drink enough fluid to keep your urine pale yellow. Wash your hands often using soap and water for at least 20 seconds. If soap and water are not available, use hand vibrating screen operator. Make sure that everyone in your household [...] eating and drinking to prevent dehydration. Take xmcq-zst-avwsqwr and prescription medicines only as told by [...] provider. Document Revised: 09/26/2021 Document Reviewed: 09/26/2021 [email or web address] Patient Education 2022 Guided Delivery Systems. Follow Up Care 02/16/2023 05:06:19 With:Lilliam Gonzalez Address: [address] [place] [phone] Business (1) When:Within 3 Day(s) [facility]03-22-2023 NoteOPERATIVE NOTE OPERATION DATE: 06/24/2022 PROCEDURE: Robotic assisted bilateral laparoscopic salpingectomy, fulguration of ovarian endometrial implant. PREOPERATIVE DIAGNOSIS: Desires permanent sterilization, multiparity. POSTOPERATIVE DIAGNOSIS: Desires permanent sterilization, multiparity. ANESTHESIA: General. SURGEON: Shaan Witt D.O. MOLD CHECKER: ASHLEY Dominguez URINE OUTPUT: Yellow and clear. [...] lap and needle counts were correct x2.[facility] [id number] NoteHNO ID: [id number] Author: Javier Gutierrez MD Service: ? Author Type: Physician Type: Progress Notes Filed: 10/10/2021 3:41 PM Note Text: NAME: Socorro Joseph CLINIC NO: [id number] REASON FOR VISIT Socorro Joseph is a [...] No masses or organomegaly. (more content not included)...[facility]07-08-2022 History of Present illness Narrative* Javier Gutierrez MD - 10/10/2021 2:00 PM EDT NAME: Socorro Joseph CLINIC NO: [id number] REASON FOR VISIT Socorro Joseph is a [...] 10, 2021 11:07 AM [facility] Hospital Discharge instructions Patient Education 09/18/2021 03:02:59 Ovarian Cyst, Bmfr-yr-Mnvc Ovarian Cyst An ovarian cyst is a fluid-filled sac on an ovary. The ovaries are organs that make eggs in women. Most ovarian cysts go away on their own and are not cancerous (are benign). Some cysts need treatment. Follow these instructions at home: Take ouxc-lfu-osyjsry and prescription medicines only as told by [...] 09/07/2008 Document Revised: 03/04/2018 Document Reviewed: 08/23/2016 [email or web address] Patient Education 2020 Guided Delivery Systems. 09/18/2021 03:02:59 Colitis Colitis Colitis is inflammation [...] if you start to feel better. Take ytuk-kpw-pslecud and prescription medicines only as told by [...] 04/29/2005 Document Revised: 09/22/2018 Document Reviewed: 09/22/2018 [email or web address] Patient Education [employer] Follow Up Care 09/17/2021 22:00:56 With:Jeff ROACH Address: [address] [place] [address] Business (1) When:09/21/2021 Comments:Take The antibiotics as prescribed until you have completed the course. You can use the Zofran every 6 hours as needed for nausea and vomiting. You can use the [place] every 6 hours as needed for pain or the Bentyl every 8 hours. Please follow-up with your primary care doctor in addition to GI for further evaluation and management of the inflammation of your colon. Please return to the ED for any new or worsening symptoms. With:Raquel Nolan Address: [address] [place] [address]- Business (1) When:Within 3 Day(s) [facility]06-15-2022 Evaluation + Plan noteExtracted from: Title:ED NoteAuthor:Amberly Whitehead DO ADate:09/17/21 Acute colitis (K52.9: Noninf ective gastroenteritis and [...] mL, IV, 983.61 mL/hr, for 30 day(s), Stopdate 10/17/21 22:25:00 EDT, STAT, Start date 06/15/22 22:26:00 EDT, 61 minute(s), Total volume (mL): 1,000, 74 kg, 1.9, m2 Sodium Chloride 0.9% intravenous solution 1,000 mL, 1,000 mL, IV, 983.61 mL/hr, for 30 day(s), Stopdate 10/18/21 1:47:00 EDT, STAT, Start date 09/18/21 1:48:00 EDT, 61 minute(s), Total volume (mL): 1,000, 74 kg, 1.9, m2 Automated Diff Basic Metabolic Panel Beta hCG Qual CBC w/ Auto Diff CT Abdomen/Pelvis w/ Contrast eGFR Hepatic Function Panel Lipase Level Stool Occult Blood UA With Cult Reflex Future Appointments Appointment Date:11/19/2021 08:00:00 AM Scheduled Provider:Jeff ROACH MD Location:[facility] Appointment Type:[facility] New Patient [facility]04-13-2022 Hospital Discharge instructions Patient Education 07/16/2021 16:41:56 [...] 03/22/2006 Document Revised: 06/29/2018 Document Reviewed: 04/23/2017 [email or web address] Patient Education 2020 Guided Delivery Systems. Follow Up Care 07/16/2021 14:22:36 With:Sujit Mujica Address: [address] [address] Business (1) When:07/18/2021 16:29:07 Comments:Make sure to follow-up with Dr. Mujica as discussed. Return to the emergency room if your bleeding gets worse, you develop dizziness your abdominal pain gets worse or any new symptoms. With:Lilliam Gonzalez Address: [address] [place] [phone] Business (1) When:Within 3 Day(s) [facility]04-13-2022 Evaluation + Plan noteExtracted from: Title:ED NoteAuthor:Lucila Levin M.D. HDate:07/16/21 1. Abnormal vaginal bleeding (N93.9: Abnormal uterine [...] Beta Hcg Qual UA With Cult Reflex [facility]* Diagnosis Constipation, unspecified constipation type- Primary documented in this encounter [facility] Diagnosis Wellness examination- Primary documented in this encounter [facility]* Diagnosis Nausea- Primary Nausea alone Acute cough- Primary Nausea Nausea alone Nasal congestion Other diseases of nasal cavity and sinuses Ear fullness, bilateral BMI 27.0-27.9,adult Overweight documented in this encounter [facility]Evaluation [facility]* Diagnosis Well woman exam with routine gynecological exam Routine gynecological examination PCOS (polycystic ovarian syndrome) Polycystic ovaries Nausea Nausea alone documented in this encounter [facility]* Diagnosis Nausea- Primary Nausea alone Leukocytosis, unspecified type- Primary Gastroesophageal reflux disease, unspecified whether esophagitis present BMI 26.0-26.9,adult Overweight [facility] Nausea- Primary Nausea alone Intractable episodic headache, unspecified headache type- Primary Nausea Nausea alone Facial tingling Overweight BMI 27.0-27.9,adult [facility] Diagnosis Nausea- Primary Nausea alone Acute diarrhea- Primary Diarrhea Nausea Nausea alone Abdominal cramping Abdominal pain, unspecified site documented in this encounter [facility]Evaluation [facility]* Diagnosis Nausea- Primary Nausea alone Well woman exam with routine gynecological exam Routine gynecological examination UTI symptoms Exposure to STD Vaginal discharge Leukorrhea, not specified as infective documented in this encounter [facility]* Diagnosis Nausea- Primary Nausea alone Pre-operative exam Unspecified pre-operative examination Menorrhagia with irregular cycle Pelvic pain in female Unspecified symptom associated with female genital organs Dysmenorrhea Dyspareunia, female [facility] Narr[facility] No data available for this section [facility] No data available for this section [facility] No data available for this section [facility] CenterReason for referral (narrative)* Outpatient Procedure (Routine) - AuthorizedSpecialtyDiagnoses / ProceduresReferred By ContactReferred To [facility] Diagnoses Constipation, unspecified constipation type Procedures [place]ULT [place] ANORECTAL MANOMETRY ANORECTAL MANOMETRY Javier Gutierrez MD [address] [place] [address] [facility] [place] [address] [place] [address] Referral IDStatusReasonStart DateExpiration DateVisits RequestedVisits [id number] Auto-Generated Referral [facility] Summary Purpose Family History No Family History [...] section and content) DATE CREATED AUTHOR 09/23/2017 [facility] DATE CREATED AUTHOR AUTHOR'S ORGANIZ ATION 11/07/2021 [facility] DATE CREATED AUTHOR AUTHOR'S ORGANIZ ATION 07/10/2022 [facility] DATE CREATED AUTHOR AUTHOR'S ORGANIZ ATION 12/16/2023 [facility] DATE CREATED AUTHOR AUTHOR'S ORGANIZ ATION 03/21/2024 [facility] DATE CREATED AUTHOR AUTHOR'S ORGANIZ ATION 04/18/2024 [facility] DATE CREATED AUTHOR AUTHOR'S ORGANIZ ATION 04/19/2024 [facility] DATE CREATED AUTHOR AUTHOR'S ORGANIZ ATION 06/12/2024 [facility] DATE CREATED AUTHOR AUTHOR'S ORGANIZ ATION 06/18/2024 [facility] DATE CREATED AUTHOR AUTHOR'S ORGANIZ ATION 06/20/2024 [facility] DATE CREATED AUTHOR AUTHOR'S ORGANIZ ATION 01/25/2025 [facility] Care Team (unrecognized sect ion and content) Team MemberRelationshipSpecialtyStart DateEnd Date Raquel Nolan MD [address] [place] [address] PCP - [facility]09/14/22 Raquel Nolan MD [address] [place] [address] PCP - [facility]10/03/22Te MemberRelationshipSpecialtyStart DateEnd Date Raquel Nolan MD [address] [place] [address] PCP - [facility]09/14/22 Raquel Nolan MD [address] [place] [address] PCP - [facility]10/03/22Te MemberRelationshipSpecialtyStart DateEnd Date Raquel Nolan MD [address] [place] [address] PCP - [facility]09/14/22Te MemberRelationshipSpecialtyStart DateEnd Date Raquel Nolan MD [address] [place] [address] PCP - [facility]09/14/22Te MemberRelationshipSpecialtyStart DateEnd Date Raquel Nolan MD [address] [place] [address] [facility] - [facility]09/14/22 Raquel Nolan MD [address] [place] [address] [facility]10/03/22Te MemberRelationshipSpecialtyStart DateEnd Date Raquel Nolan MD [address] [place] [address] PCP - [facility]09/14/22 Raquel Nolan MD [address] [place] [address] [facility]10/03/22Te MemberRelationshipSpecialtyStart DateEnd Date Raquel Nolan MD [address] [place] [address] PCP [facility]09/14/22 Raquel Nolan MD [address] [place] [address] PCP [facility]2/1/25Team MemberRelationshipSpecialtyStart DateEnd Date Raquel Nolan MD [address] [place] [address] PCP - [facility]09/14/22 Raquel Nolan MD [address] [place] [address] PCP - [employer] MemberRelationshipSpecialtyStart DateEnd Date Raquel Nolan MD [address] [place] [address] PCP - [facility]09/14/22 Raquel Nolan MD [address] [place] [address] PCP - [employer]08/03/24 MemberRelationshipSpecialtyStart DateEnd Date Raquel Nolan MD [address] [place] [address] PCP - [facility]09/14/22 Raquel Nolan MD [address] [place] [address] PCP - [employer]08/03/24 MemberRelationshipSpecialtyStart DateEnd Date Raquel Nolan MD [address] [place] [address] PCP - [facility]09/14/22 Raquel Nolan MD [address] [place] [address] PCP - [employer]08/03/24Team MemberRelationshipSpecialtyStart DateEnd Date Raquel Nolan MD [address] [place] [address] [facility] Raquel Nolan MD [address] [place] [address] PCP - [employer]08/03/24Team MemberRelationshipSpecialtyStart DateEnd Date Raquel Nolan MD [address] [place] [address] PCP - [facility]09/14/22 Raquel Nolan MD [address] [place] [address] PCP - [employer]08/03/24Team MemberRelationshipSpecialtyStart DateEnd Date Raquel Nolan MD [address] [place] [address] PCP - [facility]09/14/22 Raquel Nolan MD [address] [place] [address] PCP - [employer]08/03/24 Source Comments (unrecognize d section and content) In the event this informatio n is protected by the Federal Confidentiality of Alcohol and Drug Abuse Patient Records regulations: The Federal rules restrict any use of the information to criminally investigate or prosecute any alcohol or drug abuse patient.[facility] Reason for Visit (unrecogniz ed section and content) ReasonCommentsNew Patientinflammation in abdomonReasonCommentsAbdominal Pain NauseaCoughEaracheSinusitisReasonCommentsWell Women VisitReasonComments ImmunizationsDeclines at this timeER Follow-upResultsDiscuss WBC and Acid Reflux ReasonCommentsDizzinessMigraineTinglingL side of face.Chest PainReasonComments DiarrheaNauseaReasonCommentsPre-op Visit FOR RECORDS PERTAINING TO PATIENTS WHO ARE [...] BE BASED ON THE PRIMARY CLINICAL RECORDS. [facility]. provides no warranty or guarantee of the accuracy or completeness of information in this document.
--- NOTE | 2025-02-02 12:28 | XR_ITS ---
[address] [address] Patient Name: SOCORRO VALENCIA MRN: [id number] date: 2000 Sex: F [facility] Current Patient Location: [facility] Accession/Order Number: [id number] Exam Date: 02/02/2025 13:15 Report Date: 02/02/2025 15:26 At the request of: ARIELA ALEJANDRO DO Procedure: XR chest 2V Chest 2 views CLINICAL HISTORY: Preop exam COMPARISON: Chest 06/10/2022 FINDINGS: Heart normal in size. Lungs are clear. No free air. XR/XR chest 2V IMPRESSION: NO ACUTE CARDIOPULMONARY ABNORMALITY. Impression dictated by: Honey May Jr.OElizabeth 02/02/2025 3:26 PM Dictation Location: [place] [address] Electronically authenticated by: [id number] Y Date: 02/02/2025 15:26
[2025-02-02 13:18] LABS: Hematocrit 43.1 % (36.0-48.0); Hemoglobin 14.3 g/dL (12.0-16.0); Immature Granulocytes Abs Auto 0.03 10^3/uL (0.00-0.03); Immature Granulocytes Pct Auto 0.3 % (0.0-0.5); Lymphocytes Absolute Auto 3.8 10^3/uL (1.2-3.8); Mean Corpuscular HGB Conc 33.2 g/dL (29.9-35.2); Mean Corpuscular Hemoglobin 31.4 pg (26.7-34.0); Mean Corpuscular Volume 94.7 fL (81.0-99.0); Platelet Count 283 10^3/uL (150-450); Red Blood Count 4.55 10^6/uL (4.20-5.40); White Blood Count 10.0 10^3/uL (4.0-11.0)
[2025-02-02 13:27] LABS: Alanine Aminotransferase 28 U/L (14-59); Albumin Globulin Ratio 1.2; Albumin Level 4.1 g/dL (3.4-5.0); Alkaline Phosphatase 97 U/L (46-116); Anion Gap 12.7; Aspartate Amino Transferase 16 U/L (15-37); Blood Urea Nitrogen 9.0 mg/dL (7.0-18.0); Calcium 9.1 mg/dL (8.5-10.1); Carbon Dioxide 27.5 mmol/L (21.0-32.0); Chloride 104 mmol/L (98-107); Estimated GFR (African America >60 (>=60 mL/min/1.73m^2); Estimated GFR (Non-African Ame >60 (>=60 mL/min/1.73m^2); Globulin 3.4 g/dL; Glucose 81 mg/dL (74-106); Potassium 4.2 mmol/L (3.5-5.1); Sodium 140 mmol/L (136-145); Total Protein 7.5 g/dL (6.4-8.2)
[2025-02-02 13:33] LABS: INR 1.00; Partial Thromboplastin Time 31.2 sec (22.3-36.2); Prothrombin Time 10.6 sec (9.0-11.6)
== END 2025-02-02 12:09 | disposition home or self-care (01) ==
LOC: PST 12:11
PROVIDERS: Visit Provider Obstetrics & Gynecology
DX: Z01.810 Encounter for preprocedural cardiovascular examination (principal); Z01.812 Encounter for preprocedural laboratory examination; N92.1 Excessive and frequent menstruation with irregular cycle; N94.6 Dysmenorrhea, unspecified; N94.10 Unspecified dyspareunia; R10.30 Lower abdominal pain, unspecified
CPT/HCPCS: 36415; 71046; 80048; 80076; 85025; 85610; 85730; 86850; 86900; 86901

== ENCOUNTER 2025-02-17 10:36 | Outpatient (OUT) | payer BC, SELFPAY ==
--- OUTSIDE RECORDS SUMMARY | 2025-02-17 10:39 | XMS_ITS | CCD ---
Author Organization [facility] Care Team Providers Care Wine Sales Representative Name Role Phone GIGI MITCH ALLISON Unavailable UnaCHANDANA Dey Unavailable Unavailable NO PRIMARY CARE, Unavailable Unavailable Lilliam Gonzalez Primary Care Physician Fernanda MUNROE Unavailable Raquel Nolan Primary Care Physician Unavailable Primary Care Provider Unavailhoney WITT ., DR TITUS Admitting Unavailable ALMA NOLAN Primary Care Unavailable MIRYAM ., DR TITUS Attending Unavailable MIRYAM ., DR TITUS Consulting Unavailable RAD LICEA Consulting Unavailable STEW II, KAYA Consulting Unavailable MIRYAM ., DR TITUS Attending Unavailable MIRYAM ., DR TITUS Admitting Unavailable MIRYAM ., DR TITUS Admitting Unavailable MIRYAM ., DR TITUS Attending Unavailable MIRYAM ., DR TITUS Consulting Unavailable ZIEBER, DR EVELIA Gutierrez Consulting Unavailable MIRYAM ., DR TITUS Admitting Unavailable TORONTO, DR BAO Painter Consulting Unavailable ALMA NOLAN [...] 5 mg oral tablet (2 sources)Opioid AgonistStart: 71-34-9229Gziaj 325 mg-5 mg oral tablet 1 tab(s), Oral, q6hr for pain, 10 tab(s), Refill(s) 0 Start Date: 09/18/21 Status: [id number] 200 actuat albuterol 0.09 mg/actuat metered dose inhaler (10 sources)beta2-Adrenergic AgonistStart: 04-27-2023 End: 80-18-6822dmye 2 puff(s) by inhalation every four hours for wheezing albuterol HFA 90 mcg/act inhaler Indications: Acute cough Inhale 2 puffs every 4 (four) hours if needed for wheezing or shortness of breath 18 g 04/27/2023 03/22/2024 Discontinued (Therapy completed)cephalexin 500 mg oral capsule (4 sources)Cephalosporin AntibacterialStart: 16-66-8331mtdm 1 capsule by mouth every twelve hoursKeflex 500 mg Cap 500 mg = 1 cap(s), Oral, q12hr, # 14 cap(s), Refills(s) 0, Pharmacy: [facility], 175, cm, 06/16/20 13:40:00 EDT, Height/Length Dosing, 70.8, kg, 06/16/20 13:40:00 EDT, Weight Dosing Start Date: 06/16/20 Status: Ordereddextromethorphan hydrobromide 3 mg/ml / promethazine hydrochloride 1.25 mg/ml oral solution (1 source)Phenothiazine, Uncompetitive V-cfgrip-Q-aspartate Receptor Antagonist, Sigma-1 AgonistStart: 03-20-2024 End: 81-74-6026wevk 5 mL by mouth every six hours for coughdextromethorphan- promethazine 15 mg-6.25 mg/5 mL Oral Syrup 5 mL 5 mL, Oral, q6hr for cough for 5 day(s), 200 mL, Refill(s) 0, [facility], 175.6, cm, 03/20/24 7:23:00 EST, Height/Length Dosing, 80, kg, 03/20/24 7:23:00 EST, Weight Dosing Start Date: 03/20/24 Stop Date: 03/25/24 Status: Ordereddicyclomine hydrochloride 10 mg oral capsule (2 sources)AnticholinergicStart: 36-47-8712tdzf 1 capsule by mouth four times daily as needed for nauseaBentyl 10 mg Cap 10 mg = 1 cap(s), Oral, QID, PRN Nausea/Vomiting, For abdominal cramping, # 16 cap(s), Refills(s) 0, Pharmacy: [facility], 177, cm, 04/15/24 21:15:00 EST, Height/Length Dosing, 83.8, kg, 04/15/24 21:15:00 EST, Weight Dosing Start Date: 04/16/24 Status: OrderedStart: 09-18-2021 End: 08-19-3596oaop 1 capsule by mouth four times dailyBentyl 10 mg Cap 10 mg = 1 cap(s), Oral, QID, X 7 day(s), # 14 cap(s), Refills(s) 0 Start Date: 09/18/21 Stop Date: 09/25/21 Status: Orderedfamotidine 40 mg oral tablet (15 sources)Histamine-2 Receptor AntagonistStart: 06-15-2024 End: 31-87-6015jpys 1 tablet by mouth at bedtimefamotidine (Pepcid) 40 MG tablet Indications: Gastroesophageal reflux disease, unspecified whether esophagitis present Take 1 tablet (40 mg) by mouth at bedtime 90 tablet 3 06/15/2024 06/15/2025 Activeibuprofen 200 mg oral tablet (10 sources)Nonsteroidal Anti-inflammatory Drug End: 54-85-8325oxjwphqrw 200 MG tablet Take by mouth. 03/22/2024 Discontinued (Therapy completed)levonorgestrel 0.445920 mg/hr intrauterine system (4 sources)Progestin, Progestin-containing Intrauterine DeviceStart: 08-29-2019 Liletta 52 mg IUD Refills(s) 0 Start Date: 08/29/19 Status: OrderedStart: 94-59-5649Tzftshh 52 mg IUD Refills(s) 0 Start Date: 08/29/19 Status: Ordered methocarbamol 500 mg oral tablet (1 source)Muscle RelaxantStart: 06-29-2023 End: 31-27-5787wtct 1 tablet by mouth three times dailyRobaxin 500 mg Tab 500 mg = 1 tab(s), Oral, TID, X 3 day(s), # 9 tab(s), Refills(s) 0, Pharmacy: [facility], 175, cm, 06/29/23 19:28:00 EDT, Height/Length Dosing, 82, kg, 06/29/23 19:28:00EDT, Weight Dosing Start Date: 06/29/23 Stop Date: 07/02/23 Status: Orderednaproxen 500 mg oral tablet (2 sources)Nonsteroidal Anti-inflammatory DrugStart: 42-30-3120ifde 1 tablet by mouth twice daily as needed for painNaprosyn 500 mg Tab 500 mg = 1 tab(s), Oral, BID, PRN for pain, # 20 tab(s), Refills(s) 0, Pharmacy: [facility], 175, cm, 06/29/23 19:28:00 EDT, Height/Length Dosing, 82, kg, 06/29/23 19:28:00 EDT, Weight Dosing Start Date: 06/29/23 Status: Orderedoseltamivir 75 mg oral capsule (2 sources)Neuraminidase InhibitorStart: 04-12-2024 End: 34-03-3363wjoh 1 capsule by mouth twice dailyTamiflu 75 mg Cap 75 mg = 1 cap(s), Oral, BID, X 5 day(s), # 10 cap(s), Refills(s) 0, Pharmacy: [facility], 175.6, cm, 04/12/24 13:49:00 EST, Height/Length Dosing, 83.8, kg, 04/12/24 13:49:00 EST, Weight Dosing Start Date: 04/12/24 Stop Date: 04/17/24 Status: Orderedpantoprazole 40 mg delayed release oral tablet (15 sources)Proton Pump InhibitorStart: 06-15-2024 End: 38-08-9062dubj 1 tablet by mouth once dailypantoprazole (ProtoNix) 40 MG EC tablet Indications: Gastroesophageal reflux disease, unspecified whether esophagitis present Take 1 tablet (40 mg) by mouth Daily Do not crush, chew, or split. 90 tablet 3 06/15/2024 06/15/2025 Activephenazopyridine hydrochloride 100 mg oral tablet (3 sources)Start: 12-18-2024 End: 67-80-4552sxpo 1 tablet by mouth three times daily as needed for muscle spasmsphenazopyridine (Pyridium) 100 MG tablet Indications: UTI symptoms Take 1 tablet (100 mg) by mouth 3 (three) times a day as needed for bladder spasms for up to 3 days 10 tablet 12/18/2024 12/21/2024 ActivepredniSONE 20 mg oral tablet (2 sources)Start: 03-22-2024 End: 52-76-5635tdbw 2 tablets by mouth once dailypredniSONE (Deltasone) 20 MG tablet Indications: Acute cough Take 2 tablets (40 mg) by mouth Daily for 5 days 10 tablet 03/22/2024 03/27/2024 ActiveZofran ODT 4 mg Tab-Dis (6 sources)Start: 66-25-8182zsyv 1 tablet by mouth every eight hours as needed for nauseaZofran ODT 4 mg Tab-Dis 4 mg = 1 tab(s), Oral, q8hr, PRN Nausea/Vomiting, # 12 tab(s), Refills(s) 0, Pharmacy: [facility], 177, cm, 04/15/24 21:15:00 EST, Height/Length Dosing, 83.8, kg, 04/15/24 21:15:00 EST, Weight Dosing Start Date: 04/16/24 Status: OrderedStart: 06-29-2023 take 1 tablet by mouth every eight hoursZofran ODT 4 mg Tab-Dis 4 mg = 1 tab(s), Oral, q8hr, # 12 tab(s), Refills(s) 0, Pharmacy: [facility], 175, cm, 06/29/23 19:28:00 EDT, Height/Length Dosing, 82, kg, 06/29/23 19:28:00 EDT, We ight Dosing Start Date: 06/29/23 Status: OrderedStart: 82-01-3999vqpe 1 tablet by mouth every eight hours as needed for nauseaZofran ODT 4 mg Tab-Dis 4 mg = 1 tab(s), Oral, q8hr, PRN Nausea/Vomiting, # 20 tab(s), Refills(s) 0, Pharmacy: [facility], 175.3, cm, 02/16/23 5:18:00 EST, [...] oral tablet (7 sources)Penicillin-class AntibacterialStart: 03-20-2024 End: 48-57-9538odkd 1 tablet by mouth in the morningamoxicillin-clavulanate (Augmentin) 875-125 MG tablet Take 875 mg by mouth in the morning and 875 mg before bedtime. 03/20/2024 06/15/2024 DiscontinuedStart: 09-18-2021 End: 22-52-1827Zyuugvcrb 875 mg-125 mg Tab 1 tab(s), Oral, q12hr for 10 day(s), 20 tab(s), Refill(s) 0 Start Date:09/18/21 Stop Date: 09/28/21 Status: Ordered azithromycin 250 mg oral tablet (5 sources)Macrolide AntimicrobialStart: 03-22-2024 End: 44-80-3062htldkrgvxyck (Zithromax) 250 MG tablet Indications: Acute cough Take 2 tabs PO x 1 day then 1 tab PO daily x 4 days 6 tablet 03/22/2024 06/15/2024 DiscontinuedmetFORMIN hydrochloride 500 mg oral tablet (12 sources)BiguanideStart: 12-13-2023 End: 62-81-2502tfbg 1 tablet by mouth at bedtimemetFORMIN (Glucophage) 500 MG tablet Indications: PCOS (polycystic ovarian syndrome) Take 1 tablet (500 mg) by mouth at bedtime 30 tablet 11 12/13/2023 06/15/2024 Discontinuedondansetron 4 mg oral tablet (20 sources)Serotonin-3 Receptor AntagonistStart: 12-06-2024 End: 21-33-8431exqp 1 tablet by mouth every eight hours as needed for nausea and vomiting and nausea and nauseaondansetron (Zofran) 4 MG tablet Indications: Nausea Take 1 tablet (4 mg) by mouth every 8 (eight) hours if needed for nausea or vomiting 12 tablet 12/06/2024 01/24/2025 DiscontinuedStart: 07-26-2024 End: 70-53-8655tkwo 2 tablets by mouth every eight hours as needed for nausea and vomiting and nausea and nauseaondansetron (Zofran) 4 MG tablet Indications: Nausea Take 2 tablets (8 mg) by mouth every 8 (eight)hours if needed for nausea or vomiting 20 tablet 09/26/2024 12/06/2024 Discontinued (Reorder)Start: 04-12-2024 End: 49-92-8274kjzd 1 tablet by mouth every eight hoursondansetron 4 mg Dis Tab 4 mg = 1 tab(s), Oral, q8hr, allow tablet to dissolve on tongue, X 2 day(s), # 6 tab(s), Refills(s) 0, Pharmacy: [facility], 175.6, cm, 04/12/24 13:49:00 EST, Height/Length Dosing, 83.8, kg, 04/12/24 13:49:00 EST, Weight Dosing Start Date: 04/12/24 Stop Date: 04/14/24 Status: OrderedStart: 12-13-2023 End: 05-87-3043jhmp 1 tablet by mouth every six hours as needed for nausea and vomiting and nausea and nauseaondansetron ODT (Zofran-ODT) 4 MG disintegrating tablet Indications: Nausea Take 1 tablet (4 mg) bymouth every 6 (six) hours if needed for nausea or vomiting 30 tablet 2 12/13/2023 01/12/2024 ActiveStart: 09-21-2023 End: 20-99-9861hgoy 2 tablets by mouth every eight hours as needed for nausea and vomiting and nausea and nauseaondansetron (Zofran) 4 MG tablet Indications: Nausea Take 2 tablets (8 mg) by mouth every 8 (eight)hours if needed for nausea or vomiting 20 tablet 03/22/2024 ActiveStart: 40-83-6732ajjg 1 tablet by mouth every eight hours as needed for nauseaZofran 4 mg Tab 4 mg = 1 tab(s), Oral, q8hr, PRN Nausea/Vomiting, # 12 tab(s), Refills(s) 0 Start Date: 09/18/21 Status: OrderedComment on above:Take 4 mg by mouth every 8 hours as needed for nausea/vomiting.polyethylene glycol 3350 69010 mg powder for oral solution (2 sources)Osmotic LaxativeStart: 57-21-8648vyaxzgmeewio glycol 3350 (MIRALAX) 17 gram/dose powder Take [...] sources)Leukocytosis; Translations: [Elevated white blood cell count, unspecified]41-32-3469ZpjxwscJrysenbfafvdz (1 source)Endometriosis; Translations: [ENDOMETRIOSIS RT OVARY UNSPEC DEPTH] Onset: 37-54-8395Qhpeljrokn disorders (4 sources)Gastroesophageal reflux disease; Translations: [Gastro-esophageal reflux disease without esophagitis]88-91-2572PdhbcwjSitjhokxvoimm symptoms and ill-defined conditions (2 sources)Urinary symptoms ; Translations: [Unspecified symptoms and signs involving the genitourinary system]90-57-5659OacgpowfGuobpxqe; including migraine (4 sources)Headache; Translations: [Headache, unspecified]Onset: 06-29-2023 EpisodicImmunizations and screening for infectious disease (2 sources)Exposure to sexually transmissible disorder; Translations: [Contact with and (suspected) exposure to infections with a predominantly sexual mode of transmission]65-54-6217NowopooaVeogyjotb (1 source)Influenza; Translations: [Influenza due to other identified influenza virus with other respiratory manifestations]Onset: 78-56-4076ZgijnmbzMymzoxmyh disorders (6 sources)Irregular menstruation, unspecified; Translations: [Menometrorrhagia] Onset: 39-89-9653UttvmazEdei disorders (20 sources)Depressive disorder; Translations: [Depression]Onset: 09-14-2022 45-97-3966CeponuvPyevo ear and sense organ disorders (2 sources)Ear sensations - finding; Translations: [Other specified disorders of ear, bilateral]80-99-9332LidkkhmyCmnzk endocrine disorders (2 sources)Polycystic ovary syndrome; Translations: [Polycystic ovarian syndrome]22-66-4826IvypqahLuvdq female genital disorders (2 sources)Abnormal uterine bleeding; Translations: [Abnormal uterine and vaginal bleeding, unspecified]Onset: 84-33-1635DmsmdgjQwzrt female genital disorders (1 source)Pain in female genitalia on intercourse; Translations: [Unspecified dyspareunia]89-65-4406DmokcsuDfyur female genital disorders (1 source)Other specified noninflammatory disorders of vagina; Translations: [OTH SPEC NONINFLAMMATORY D/O VAGINA]Onset: 61-65-1455DtiuymspWwfcy female genital disorders (2 sources)Vaginal discharge; Translations: [Other specified noninflammatory disorders of vagina]56-35-5122KdgfprsyZfoml female genital disorders (1 source)Pain in female pelvis; Translations: [Pelvic pain in female]01-24-2025 EpisodicOther gastrointestinal disorders (2 sources)Diarrhea; Translations: [Diarrhea, unspecified]Onset: 11-17-2021 EpisodicOther gastrointestinal disorders (2 sources)Acute diarrhea; Translations: [Diarrhea, unspecified]12-06-2024 EpisodicOther lower respiratory disease (1 source)Cough; Translations: [Cough, unspecified]Onset: 33-44-3825Ivcaaffj Other lower respiratory disease (2 sources)Cough; Translations: [Acute cough]79-13-9018OzydmraePyaxb nervous system disorders (2 sources)Pins and needles; Translations: [Paresthesia of skin]09-26-2024 EpisodicOther nutritional; endocrine; and metabolic disorders (7 sources)Overweight in adulthood with body mass index of 25 or more but less than 30; Translations: [Body mass index (BMI) 27.0-27.9, adult]Onset: 04-12-2024 80-18-6090EzdqpkhjIfkyb nutritional; endocrine; and metabolic disorders (6 sources)Overweight; Translations: [Overweight]89-12-6903ZkuxqgurLnnbd and delivery including normal (11 sources)Normal cfxefymyo49-62-8076VjhvtdumWziga upper respiratory disease (3 sources)Nasal congestion; Translations: [Nasal congestion]Onset: 04-12-2024 49-04-2794CpcofklsYaihueb cyst (2 sources)Cyst of ovary; Translations: [Unspecified ovarian cyst, unspecified side]Onset: 12-84-5598NigzqnrgTrzbgefw codes; unclassified (1 source)Chill; Translations: [Chills (without fever)]Onset: 47-60-3489Dwgftxsp Substance-related disorders (20 sources)Smoker; Translations: [Nicotine dependence, cigarettes, uncomplicated]Onset: 06-11-2022 Resolved: 602239-03-9654WnrhaawIwjozni on above:Added secondary to documentation in Social History.Added secondary to documentation in Social History.Syncope (1 source)Syncope and collapse; Translations: [Syncope and collapse]Onset: 74-02-7739Ropdpzsz Past or Other Problems Problem ClassificationProblemDateDocumented DateEpisodic/ChronicAbdominal pain (20 sources)Abdominal pain; Translations: [Unspecified abdominal pain]Onset: 50-28-2654KayriavkAhxbxmjcbsex of device; implant or graft (20 sources)Mechanical complication of intrauterine contraceptive device; Translations: [Other mechanical complication of intrauterine contraceptive device, initial encounter]Onset: 316319-16-6916JqxvmgaoWjuuskoiiekhx and procreative management (20 sources)Encounter for sterilization; Translations: [Sterilization requested] Onset: 06-24-2022 Resolved: 04-74-8925PvkbcaueEzeqix and vomiting (20 sources)Vomiting; Translations: [Vomiting, unspecified]Onset: 11-17-2021 EpisodicNoninfectious gastroenteritis (20 sources)Noninfectious enteritis; Translations: [Noninfective gastroenteritis and colitis, unspecified]Onset: 53-70-5473EncfdbqoKxiku female genital disorders (20 sources)Cervical intraepithelial neoplasia grade 2; Translations: [Moderate cervical dysplasia]Onset: 574305-72-1729BdoagmdnUqgbv female genital disorders (20 sources)Vaginal odor; Translations: [Other specified noninflammatory disorders of vagina]Onset: 718193-42-1789LquhhkmyDnwpq female genital disorders (3 sources)Pelvic and perineal pain; Translations: [Pelvic and perineal pain] Onset: 337088-19-8728AzrfzkfcQmunm gastrointestinal disorders (20 sources)Constipation; Translations: [Constipation, unspecified]Onset: 82-51-6978MzsjbpqxDjils upper respiratory infections (20 sources)Pharyngitis; Translations: [Acute pharyngitis, unspecified]Onset: 235562-49-6534FekvkqzbFtbgwi media and related conditions (20 sources)Acute suppurative otitis media without spontaneous rupture of ear drum; Translations: [Acute suppurative otitis media without spontaneous rupture of ear drum, left ear]Onset: 862138-75-4127McjbrpxnXacshpcq codes; unclassified (20 sources)History of endometrial ablation; Translations: [Other specified postprocedural states]Onset: 369937-91-8855MzdujpwtObfdirwdozlf (20 sources)PregnancyOnset: 09-11-2017 Resolved: Results Test NameValueInterpretationReference RangeFacilityALL CBC WITH AUTO DIFFon 73-08-7108GHYGYQSWJ ABSOLUTE AUTO0.0NOMS HealthcareBasophils/100 WBC (Bld)0.4 % 0.2 - 2.0 %[facility] CenterEosinophils/100 WBC (Bld)0.7 %Low0.9 - 7.0 %[facility] CenterErythrocyte distribution width (RBC) [Ratio]12.7 %11.0 - 15.0 %NOMRay County Memorial HospitalHematocrit (Bld) [Volume fraction]43.1 %36.0 - 48.0 %[facility] Hemoglobin (Bld) [Mass/Vol]14.3 g/dL12.0 - 16.0 g/dLMissouri Baptist Medical CenterIMMATURE GRANULOCYTES ABS AUTO0.03NOMS [facility] HospitalImmature granulocytes/100 WBC (Bld)0.3 % 0.0 - 0.5 %[facility] CenterInterpretation and review of laboratory results AbnormalNORipley County Memorial HospitalLYMPHOCYTES ABSOLUTE AUTO3.8NOMS [facility] Lymphocytes/100 WBC (Bld)38.3 %20.5 - 60.0 %[facility] CenterH (RBC) [Entitic mass]31.4 pg26.7 - 34.0 pgMissouri Baptist Medical CenterMCHC (RBC) [Mass/Vol]33.2 g/dL29.9 - 35.2 g/dLMissouri Baptist Medical CenterMCV (RBC) [Entitic vol]94.7 fL81.0 - 99.0 fLMissouri Baptist Medical CenterMONOCYTES ABSOLUTE AUTO0.6NOMS HealthcareMonocytes/100 WBC (Bld)5.9 % 1.7 - 12.0 %[facility] CenterNEUTROPHILS ABSOLUTE AUTO5.5NOMS [facility] Neutrophils/100 WBC (Bld)54.4 %43.0 - 75.0 %[facility] CenterPlatelet mean volume (Bld) [Entitic vol]10.4 fL9.5 - 13.5 fLMissouri Baptist Medical CenterTBH EO #0.1NOMS [facility] TBH [id number] [facility] RBC4.55NOMS [facility] HospitalTB WBC10.0NOMS [facility] CLINISYNCMissouri Baptist Medical CenterXR CHEST 2Von 05-36-1764[address] [address] XRay Report Signed Patient: SOCORRO JOSEPH MR#: [id number] : 2000 Acct:[id number] Age/Sex: 24 / F ADM Date: 02/02/25 Loc: PST Attending Dr: Shaan Witt D.O. Ordering Physician: Shaan Witt D.O. Date of Service: 02/02/25 Procedure(s): XR chest 2V Accession Number(s): [id number] cc: Shaan Witt D.O.; Physician,Non-Staff Na[place] [id number] Patient Name: SOCORRO JOSEPH MRN: [facility]:[id number] date: 2000 Sex: F [facility] Current Patient Location: [facility] Accession/Order Number: [id number] Exam Date: 02/02/2025 13:15 Report Date: 02/02/2025 15:26 At the request of: SHAAN WITT DO Procedure: XR chest 2V Chest 2 views CLINICAL HISTORY: Preop exam COMPARISON: Chest 06/10/2022 FINDINGS: Heart normal in size. Lungs are clear. No free air. XR/XR chest 2V IMPRESSION: NO ACUTE CARDIOPULMONARY ABNORMALITY. Impression dictated by: Dmitriy Mason Jr., D.O. 02/02/2025 3:26 PM Dictation Location: [place] [address] Electronically authenticated by: [id number] Y Date: 02/02/2025 15:26 Dictated By: Dmitriy Mason M.D. Signed By: 02/02/25 1528 DD/ 1526 TD/TT: Business Development Representative:DARRELLadiologzach, Radiologist, MD - 02/02/[address] [address] XRay Report Signed Patient: SOCORRO JOSEPH MR#: [id number] : 2000 Acct:[id number] Age/Sex: 24 / F ADM Date: 02/02/25 Loc: PST Attending Dr: Shaan Witt D.O. Ordering Physician: Shaan Witt D.O. Date of Service: 02/02/25 Procedure(s): XR chest 2V Accession Number(s): [id number] cc: Shaan Witt D.O.; Physician,Non-Staff Naren [place] [id number] Patient Name: SOCORRO JOSEPH MRN: [facility]:[id number] date: 2000 Sex: F Assigned [facility] Current Patient Location: [facility] Accession/Order Number: [id number] Exam Date: 02/02/2025 13:15 Report Date: 02/02/2025 15:26 At the request of: SHAAN WITT DO Procedure: XR chest 2V Chest 2 views CLINICAL HISTORY: Preop exam COMPARISON: Chest 06/10/2022 FINDINGS: Heart normal in size. Lungs are clear. No free air. XR/XR chest 2V IMPRESSION: NO ACUTE CARDIOPULMONARY ABNORMALITY. Impression dictated by: Dmitriy Mason Jr., D.O. 02/02/2025 3:26 PM Dictation Location: [place] [address] Electronically authenticated by: [id number] Y Date: 02/02/2025 15:26 Dictated By: Dmitriy Mason M.D. Signed By: 02/02/25 1528 DD/ 25 TD/TT: Business Development Representative: SOCO HealthcareRadiology Study observation (narrative)[facility] HealthcareXR CHEST 2V Ordered By: Radiologist Radiology on 76-24-3072FBSDMissouri Baptist Medical Center Work Phone: US PELVIC COMPLETE W/ TVon 79-26-4705VZ PELVIC COMPLETE W/ TVFINDINGS: Uterus 8.7 x [...] last menstrual period was 12/09/2024.IGP,APTIMA HPV,AGE GDLNon 02-10-3433NCD LN ACOG TESTINGNote.[facility] HealthcareComment on above:TESTS RESULT FLAG UNITS REF RANGE LAB Clinician Provided Cytology Information Source.............Cervix;Endocervix No. of containers..01 ThinPrep Vial Age Anuradhao O[place]EL Rebecca... FLAG LEGEND: L-Low Normal,H-High Normal,LL-Alert Low,HH-Alert High <-Panic Low,>-Panic High,A-Abnormal,AA-Critical Abnormal Performed at: 01 =[facility] [address] Rosalia Harp MD, IGP, RFX APTIMA HPV ASCUNote.[facility] HealthcareComment on above:TESTS RESULT FLAG UNITS REF RANGE LAB DIAGNOSIS: 02 NEGATIVE FOR INTRAEPITHELIAL LESION OR MALIGNANCY. Specimen adequacy: 02 Satisfactory for evaluation. Endocervical and/or squamous metaplastic cells (endocervical component) are present. Performed by: 02 Gildardo Chan Petroleum Geologist ([facility]) . 02 Note: Note 02 The Pap [...] Low,>-Panic High,A-Abnormal,AA-Critical Abnormal Performed at: [address] [facility] [address] [address] Rosalia Harp MD, Performed at: =G - [facility] [address] [id number] Metal Machinist: Rosalia Harp MD, Phone: [phone] Performed at: - [facility] [id number] Metal Machinist: Rosalia Harp MD, Phone: [phone] BRUSH-SPATULA CERVIX ENDOCERVIX CLINISYNCNOMS HealthcareRECURRENT VAGINITIS (HTRX)on 62-24-3378QWUOYMRDB VAGINAE 0NOMS HealthcareATOPOBIUM VAGINAENot detectedNOMS HealthcareBVAB 2,3 (BACTERIAL VAGINOSIS ASSOCIATED BACTERIA 2, 3); MOBILUNCUS [id number] HealthcareBVAB 2,3 (BACTERIAL VAGINOSIS ASSOCIATED BACTERIA 2, 3); MOBILUNCUS SPPNot detectedNOMS HealthcareCANDIDA ALBICANS, PARAPSILOSIS, [id number] HealthcareCANDIDA ALBICANS, PARAPSILOSIS, TROPICALISNot detectedNOMS HealthcareCANDIDA GLABRATA0 NOMS HealthcareCANDIDA GLABRATANot detectedNOMS HealthcareCANDIDA [id number] HealthcareCANDIDA KRUSEINot detectedNOMS HealthcareCHLAMYDIA [id number] HealthcareCHLAMYDIA TRACHOMATISNot detectedNOMS HealthcareGARDNERELLA VAGINALIS0 NOMS HealthcareGARDNERELLA VAGINALISNot detectedNOMS HealthcareMEGASPHAERA (TYPES 1, 2)0NOMS HealthcareMEGASPHAERA (TYPES 1, 2)Not detectedNOMS Healthcare MYCOPLASMA [id number] HealthcareMYCOPLASMA GENITALIUMNot detectedNOMS HealthcareNEISSERIA [id number] HealthcareNEISSERIA GONORRHOEAENot detected NOMS HealthcareTRICHOMONAS [id number] HealthcareTRICHOMONAS VAGINALISNot detectedNOMS HealthcareNOMS HealthcareUrinalysis macro (dipstick) panel (U)on 44-20-5149Xnjuhuuzf, UANegativeNegative - 4(70) +++ mg/dLNOMS HealthcareBlood, UANegativeNegative - 50 Silas/mcLNOMS HealthcareClarity, UAClearNOMS Healthcare Color, UAYellowNOMS HealthcareGlucose, UANegativeNegative - 2000(110) ++++ mg/dL N[facility]S HealthcareInterpretation and review of laboratory resultsNormalNOMS HealthcareKetones, UANegativeNegative - 160(16) ++++ mg/dLNOSC Healthcare Leukocytes, UANegativeNegative - 500+++ Estephania/mcLNOMS HealthcareNitrite, UA NegativeNegative - PositiveNOMS HealthcarepH, UA65 - 9NOMS HealthcareProtein, UA NegativeNegative - 2000(20) ++++ mg/dLNOMS HealthcareSpec Grav, UA1.011 - 1.03 NOMS HealthcareUrobilinogen, UA1.00.2 - 12 mg/dLNOMS HealthcareNOMS HealthcareED Note-Physicianon [id number] Note-PhysicianED Note-Physician Basic Information Time Seen: NenoHeri ortiz PA-C 06/11/2024 09:02 Chief Complaint pt presents [...] TID, # 15 tab(s), Refills(s) 0, Pharmacy: [facility], 177, cm, 06/11/24 9:05:00 EDT, [...] days 06/14/[address] [place] [address]- Business (1) Additional Instructions: Patient Education Viral [...] made to ensure accuracy, however, inadvertently computerized sheet music salesperson mistakes may be present. Appropriate healthcare PPE [...] No. Family/Friends availablefor suppo (more content not included)...[facility]tering Health HamiltonComment on above:Result Comment: Electronically Signed By: Heri Lazcano PA-C\.br\Date and Time Signed: 06/11/2510:45 EDT\.br\Electronically Co-Signed By: Elver Gonzales MD\.br\Date and Time Co-Signed: 06/18/24 00:53 EDTCBC (INCLUDES DIFF/PLT)on 35-50-3178Cvavdljko (Bld) [#/Vol]0.043 10*3/uLNormal0-200[facility] Comment on above:Performed By: #### [id number] #### [facility] [place] [address], [address] [place], [place] [id number] Board Worker: Nima Dong MDBasophils/100 WBC (Bld)0.5 %NormalQuest DiagnosticsComment on above:Performed By: #### [id number] #### [facility] [place] [address] [place] , [address] [place] [phone] Board Worker: Nima Dong MDEosinophils (Bld) [#/Vol]0.068 10*3/uLNormal 15-500Quest DiagnosticsComment on above:Performed By: #### [id number] #### [facility] [place] [address], [address] [place], [place] [phone] Board Worker: Nima Merati MDEosinophils/100 WBC (Bld)0.8 %NormalQuest DiagnosticsComment on above:Performed By: #### [id number] #### [facility] of [place] [address] Board Worker: Nima Dong MDErythrocyte distribution width (RBC) [Ratio] 12.1 %Ddaqmv10.0-15.0Quest DiagnosticsComment on above:Performed By: #### [id number] #### [facility] [place] [address] Board Worker: Nima Dong MDHematocrit (Bld) [Volume fraction]41.2 %Normal 35.0-45.0Quest DiagnosticsComment on above:Performed By: #### [id number] #### [facility] [place] [address] Board Worker: Nima Dong MDHemoglobin (Bld) [Mass/Vol]13.9 g/dLNormal 11.7-15.5Quest DiagnosticsComment on above:Performed By: #### 6399 #### [facility] [place] [address] Board Worker: Nima Dong MDLymphocytes (Bld) [#/Vol]2.788 10*3/uLNormal 850-3900Quest DiagnosticsComment on above:Performed By: #### 6399 #### [facility] [place] [address] Board Worker: Nima Dong MDLymphocytes/100 WBC (Bld)32.8 %NormalQuest DiagnosticsComment on above:Performed By: #### [id number] #### [facility] [place] [address] Board Worker: Nima Dong MDMCH (RBC) [Entitic mass]31.5 soBrqonz68.0-33.0 [facility] DiagnosticsComment on above:Performed By: #### [id number] #### [facility] of [address], [address] [place] [address] Board Worker: Nima SPARKSCHC (RBC) [Mass/Vol]33.7 g/aDLmwavz87.0-36.0 [facility] DiagnosticsComment on above:Result Comment: For adults, a slight decrease in the calculated MCHC value (in the range of 30 to 32 g/dL) is most likely not clinically significant; however, it should be interpreted with caution in correlation with other red cell parameters and the patient's clinical condition.Performed By: #### [id number] #### [facility] of [address], [address] [place] [address] Board Worker: Nima Dong MDMCV (RBC) [Entitic vol]93.4 vNEaqxeh93.0-100.0 [facility] DiagnosticsComment on above:Performed By: #### [id number] #### [facility] of [address], [address] [place] [address] Board Worker: Nima Dong MDMonocytes (Bld) [#/Vol]0.502 10*3/uLNormal 200-950Quest DiagnosticsComment on above:Performed By: #### [id number] #### [facility] of [address], [address] [place] [address] Board Worker: Nima Dong MDMonocytes/100 WBC (Bld)5.9 %NormalQuest DiagnosticsComment on above:Performed By: #### [id number] #### [facility] of [address], [address] [place] [address] Board Worker: Nima Dong MDNeutrophils (Bld) [#/Vol]5.1 10*3/uLNormal 1500-7800Quest DiagnosticsComment on above:Performed By: #### [id number] #### [facility] of [address], [address] [place] [address] Board Worker: iNma Dong MDNeutrophils/100 WBC (Bld)60 %NormalQuest DiagnosticsComment on above:Performed By: #### [id number] #### [facility] of [place] [address] [address] , [address] [place] [address] Board Worker: Nima Lemostedior mean volume (Bld) [Entitic vol]10.8 fLNormal7.5-12.5Quest DiagnosticsComment on above:Performed By: #### 6399 #### [facility] of [address], [address] [place] [address] Board Worker: Nima RAZAlatemary beth (Bld) [#/Vol]280 10*3/uLNormal 140-400Quest DiagnosticsComment on above:Performed By: #### [id number] #### [facility] of [address], [address] [place] [address] Board Worker: Nima Dong MDRBC (Bld) [#/Vol]4.41 10*6/uLNormal3.80-5.10 [facility]osticsComment on above:Performed By: #### 6399 #### [facility] of [address], [address] [place] [address] Board Worker: Nima Dong MDRICH[facility] (Bld) [#/Vol]8.5 10*3/uLNormal3.8-10.8 [facility]osticsComment on above:Performed By: #### 6399 #### [facility] of [address], [address] [place] [address] Board Worker: Nima Pride 59-73-2603Jkfyr gap [Moles/Vol]12 mmol/L Normal6-16Fisher [facility] & Orthopaedic InstituteComment on above:Performed By: #### [id number] #### [facility] [address] [place], [place] [address]Mybnovy [Mass/Vol]10.0 mg/dLNormal8.9-11.1Fisher [facility] Orthopaedic InstituteComment on above:Performed By: #### [id number] #### [facility] [address] [place], [place] [address]Ybkuodwi [Moles/Vol]105 mmol/VWzhgil695-075DaymjcKettering Health TroyComment on above:Performed By: #### [id number] #### [place] [facility] [address] [place], [place] [address]IP1 [Moles/Vol]25 mmol/UBvhsji51-72LdeoleKettering Health Troy Comment on above:Performed By: #### [id number] #### [facility] [address] [place], [place] [address]Yrclqqcecf [Mass/Vol]0.6 mg/dLNormal0.5-1.3FCleveland Clinic Euclid HospitalComment on above:Performed By: #### [id number] #### [facility] [address] [place], [place] [address]Ygnqyrm [Mass/Vol]117 mg/bVUgwajm81-246ZfwnerKettering Health TroyComment on above:Performed By: #### [id number] #### [facility] [address] [place], [place] [address]Aarictvnm [Moles/Vol]4.2 mmol/LNormal3.5-5.3FCleveland Clinic Euclid HospitalComment on above:Performed By: #### [id number] #### [facility] [address] [place], [place] [address]Bvdxhy [Moles/Vol]138 mmol/MGuigob649-333OyabjlKettering Health TroyComment on above:Performed By: #### [id number] #### [facility] [address] [place], [place] [address]Lres nitrogen [Mass/Vol]15 mg/dLNormal5-21K[facility] Health TroyComment on above:Performed By: #### [id number] #### [facility] [address] [place], [place] [address]Ycqf nitrogen/Creatinine [Mass ratio]25 No XlukeFnzc62-08ZrqdipKettering Health TroyComment on above:Performed By: #### [id number] #### [facility] [address] [place], [place] [address]YUL w/ Auto Diffon 30-92-0629Ntmjyrndi/100 WBC (Bld)0.1 %Normal 0.0-2.0[facility] TroyComment on above:Performed By: #### [id number] #### [facility] [address] [place] [address]Kolylgjtm/Leukocytes Auto (Bld) [Pure # fraction]0.0 E9/LNormal 0.0-0.2FCleveland Clinic Euclid HospitalComment on above:Performed By: #### [id number] #### [facility] [address] [place] [address]Gzpdznhwoep (Bld) [#/Vol]0.1 E9/LNormal0.0-0.5FCleveland Clinic Euclid HospitalComment on above:Performed By: #### [id number] #### [facility] [address] [place] [address]Qidjjlhopbw/100 WBC (Bld)0.4 %Normal0.0-8.0[facility] TroyComment on above:Performed By: #### [id number] #### [facility] [address] [place] [address]Ijasloyvwij distribution width (RBC) [Ratio]13.5 %Normal 10.9-14.2FCleveland Clinic Euclid HospitalComment on above:Performed By: #### [id number] #### [facility] [address] [place] [address]Tettfsdkua (Bld) [Volume fraction]44.1 %Kgqfjp64.0-46.0[facility] TroyComment on above:Performed By: #### [id number] #### [facility] [address] [place] [address]Gvoeidhbwb (Bld) [Mass/Vol]15.1 g/fFUtljdr86.0-16.0[facility] TroyComment on above:Performed By: #### [id number] #### [facility] [address] [place] [address]Zfjokiwpyqp (Bld) [#/Vol]1.1 E9/LNormal1.0-4.0[facility] TroyComment on above:Performed By: #### [id number] #### [facility] [address] [place] [address]Yveysdmquhq/100 WBC (Bld)7.4 %Low14.0-50.0[facility] TroyComment on above:Performed By: #### [id number] #### [place] [facility] [address] [place] [address]JDZ (RBC) [Entitic mass]31.8 fdZvmsev65.0-34.0[facility] TroyComment on above:Performed By: #### [id number] #### [facility] [address] [place] [address]IHXU (RBC) [Mass/Vol]34.2 g/nOMczqdf58.4-36.0[facility] TroyComment on above:Performed By: #### [id number] #### [place] [address] [place] [address]KPS (RBC) [Entitic vol]93.0 vWOtukcg38.0-100.0[facility] TroyComment on above:Performed By: #### [id number] #### [facility] [address] [place] [address]Siqvdfjmq (Bld) [#/Vol]0.4 E9/LNormal0.2-1.0[facility] TroyComment on above:Performed By: #### [id number] #### [facility] [address] [place] [address]Shwxbzjcvav (Bld) [#/Vol]13.1 E9/LHigh2.0-7.5FCleveland Clinic Euclid HospitalComment on above:Performed By: #### [id number] #### [facility] [address] [place] [address]Pqinzzmqpqw/100 WBC (Bld)89.6 %High36.0-75.0[facility] Health TroyComment on above:Performed By: #### [id number] #### [facility] [address] [place] [address]Nbusnnst mean volume (Bld) [Entitic vol]8.6 fLNormal6.4-10.8 [facility] TroyComment on above:Performed By: #### [id number] #### [facility] [address] [place] [address]Jhlntypql (Bld) [#/Vol]269.0 E9/ITzloia935.0-500.0[facility] TroyComment on above:Performed By: #### [id number] #### [facility] [address] [place] [address]YWQ (Bld) [#/Vol]4.7 E12/LNormal4.3-5.9[facility] TroyComment on above:Performed By: #### [id number] #### [facility] [address] [place] [address]QZS corrected for nucl RBC Auto (Bld) [#/Vol]14.7 E9/LHigh 4.0-11.0[facility] TroyComment on above:Performed By: #### [id number] #### [facility] [address] [place] [address]AK Clinical Summaryon [id number] Clinical SummaryED Clinical Summary [address] [address] ED Clinical Summary Person Information Name: SOCORRO JOSEPH [facility] Age: 23 Years : 2000 Sex: Female Language: Thai PCP: Raquel Nolan MD Marital Status: Single [...] 06/11/2024 11:55:54 06/11/2024 11:55:54 06/11/2024 11:55:54 ADDRESS: [address] [place] [id number] PHYS DOC NOTES: MEDICAL INFORMATION: Prescriptions Given: New Medications [facility], [address] [place], [place] [id number], [phone] promethazine (promethazine 25 mg Tab) 1 Tablets [...] With: Address: When: Raquel [place] [address] Business (1) In 3 days 06/14/2024 DIAGNOSIS: Diarrhea, unspecified; Nausea vomiting and diarrheaNormalFormerly [facility] Patient Summaryon [id number] Patient SummaryED Patient Summary [address] [address] Patient Discharge Instructions Person Information Name: SOCORRO JOSEPH Age: 23 Years Arrival Date: 06/11/2024 08:54:52 Discharge Diagnosis: Diarrhea, unspecified; Nausea vomiting and diarrhea Primary Care Physician: Raquel Nolan MD Provider Information Primary Provider: Elver Gonzales MD [employer] Specialist:Heri Lazcano PA-C The exam and treatment you received in the Emergency Department were for an urgent problem and are not intended as complete care. It is important that you follow up with a doctor, nurse practitioner,or physician???s shipping assistant for ongoing care. If your symptoms [...] Address: When: [place] [address] [place] [address] Business (1) In 3 days 06/14/2024 In the event that this physician does not participate in your insurance network, please consult with your insurance company to find a nearby participating provider. Patient Education Materials: Viral Gastroenteritis, Adult A MESSAGE TO ALL PATIENTS REGARDING OPIOIDS PRESCRIPTION OPIOIDS: WHAT YOU NEED TO KNOW Prescription opioids can be used to help relieve lqvlejgb-an-rgkpsj pain and are often prescribed following a [...] struggling with addiction, tell (more content not included)...NormalKettering Health TroyHep Func Panelon 63-30-1529Sqxowio [Mass/Vol]4.9 g/dLNormal3.3-5.0K[facility] Health TroyComment on above: Performed By: #### [id number] #### [facility] [address] [place], [place] [address]Thidwvg/Globulin (S) [Mass conc ratio]1.8Urqhbc3.1-2.2FCleveland Clinic Euclid HospitalComment on above:Performed By: #### [id number] #### [facility] [address] [place], [place] [address]DPS [Catalytic activity/Vol]91 Int._Unit/KGoonlj47-08DhbbkaKettering Health TroyComment on above:Performed By: #### [id number] #### [facility] [address] [place], [place] [address] No additional P-5'-P [Catalytic activity/Vol]14 Int._Unit/L Normal6-46K[facility] Health TroyComment on above:Performed By: #### [id number] #### [facility] [address] [place], [place] [address]YNQ [Catalytic activity/Vol]14 Int._Unit/LNormal5-43K[facility] Health TroyComment on above:Performed By: #### [id number] #### [facility] [address] [place], [place] [address]Ujpojzagv [Mass/Vol]1.0 mg/dLNormal0.0-1.1FCleveland Clinic Euclid HospitalComment on above:Performed By: #### [id number] #### [facility] [address] [place], [place] [address]Fjiwbvzun.direct [Mass/Vol]0.1 mg/dLNormal0.0-0.4FCleveland Clinic Euclid HospitalComment on above:Performed By: #### [id number] #### [facility] [address] [place], [place] [address]Qzacrpssw.indirect [Mass or moles/Vol]0.9 mg/dLNormal0.1-0.9 [facility] TroyComment on above:Performed By: #### [id number] #### [facility] [address] [place] [address]Haeqczxo (S) [Mass/Vol]2.7 g/dLNormal1.4-4.0K[facility] Health TroyComment on above:Performed By: #### [id number] #### [facility] [address] [place], [place] [address]Rabyljb [Mass/Vol]7.6 g/dLNormal6.0-7.8K[facility] Health TroyComment on above:Performed By: #### [id number] #### [facility] [address] [place], [place] [address]Qyidpu Levelon 24-47-7082Zijkqa [Catalytic activity/Vol]6 U/L Ejt43-75LqewqwKettering Health TroyComment on above:Performed By: #### [id number] #### [facility] [address] [place], [place] [address]oEJImr 45-86-0444uFWX378 mL/min/1.73 m3Mltvbi>=59K[facility]tering Health TroyComment on above:Performed By: #### [id number] #### [facility] [address] [place], [place] [address]TY Abdomen/Pelvis w/ Contraston [id number] Abdomen/Pelvis w/ ContrastExam Date/Time: 04/15/2024 23:15 EST [...] Isovue 300 Contrast amount in ml's: 100NormalFisher Ohio[facility] Hospital CenterED Clinical Summary on [id number] Clinical SummaryED Clinical Summary [place] [id number] ED Clinical Summary Person Information Name: SOCORRO JOSEPH [facility] Age: 23 Years : 2000 Sex: Female Language: Thai PCP: Raquel Nolan MD Marital Status: Single [...] 04/16/2024 02:43:08 04/16/2024 02:43:08 04/16/2024 02:43:08 ADDRESS: [address] [place] [phone] PHYS DOC NOTES: MEDICAL INFORMATION: Prescriptions Given: New Medications [facility], [address] [place], [place] [id number], [phone] dicyclomine (Bentyl 10 mg Cap) 1 Capsules [...] Address: When: [address] [address] [place] [address] Business (1) In 3 days 04/19/2024 Comments: [...] Abdominal pain, acute, epigastric; N&V (nausea and vomiting)NormalYonas Stacy Medical CenterED Note-Physicianon [id number] Note-PhysicianED Note-Physician Basic Information Time Seen: Narinder Kumar [...] abdominal cramping, # 16 cap(s),Refills(s) 0, [facility], cm, 04/15/24 21:15:00 EST, [...] PRN Nausea/Vomiting, # 12 tab(s), Refills(s) 0, [facility], cm, 04/15/24 21:15:00 EST, [...] 4 mg Dis Tab, 4 mg, Oral mxmbru21Ubjnjlpbf [F] 25 mg + Sodium Chloride 0.9% IV Lorie 50 mL [F] 50 mL, IV Piggyback Zofran 4 mg/2 mL Injection, 4 mg, IV Push Disposition Plan Patient Discharge Condition Stable Discharge Dispo (more content not included)...[facility] Comment on above:Result Comment: Electronically Signed By: Narinder Kumar DO\.br\Date and Time Signed: 04/16/24 04:28 BGD Patient Summaryon [id number] Patient SummaryED Patient Summary [place] [id number] Patient Discharge Instructions Person Information Name: SOCORRO JOSEPH Age: 23 Years Arrival Date: 04/15/2024 20:32:57 Discharge Diagnosis: Abdominal pain, acute, epigastric; N&V (nausea and vomiting) Primary Care Physician: Raquel Nolan MD Provider Information Primary Provider: Narinder Kumar DO [employer] Specialist:None The exam and treatment you received in the Emergency Department were for an urgent problem and are not intended as complete care. It is important that you follow up with a doctor, nurse practitioner,or physician???s shipping assistant for ongoing care. If your symptoms [...] With: Address: When: Raquel Nolan [address] [place], [place] [id number] [facility] () In 3 days 04/19/2024 Comments: Call [...] opioids can be used to help relieve novxwwut-sm-fwjnww pain and are often prescribed following a [...] opioids. o Never use (more content not included)...[facility] w/ Auto Diffon 99-09-3208Pbysrjgva/100 WBC (Bld)0.2 %Normal0.0-2.0[facility] Health TroyComment on above:Performed By: #### [id number] #### [facility] [address] [place] [address]Fxwhttfrb/Leukocytes Auto (Bld) [Pure # fraction]0.0 E9/LNormal 0.0-0.2FCleveland Clinic Euclid HospitalComment on above:Performed By: #### [id number] #### [facility] [address] [place] [address]Flmkjxunllr (Bld) [#/Vol]0.1 E9/LNormal0.0-0.5FCleveland Clinic Euclid HospitalComment on above:Performed By: #### [id number] #### [facility] [address] [place] [address]Rrmdzdgetha/100 WBC (Bld)1.0 %Normal0.0-8.0[facility] TroyComment on above:Performed By: #### [id number] #### [facility] [address] [place] [address]Lriozlxfgaq distribution width (RBC) [Ratio]13.1 %Normal 10.9-14.2FCleveland Clinic Euclid HospitalComment on above:Performed By: #### [id number] #### [facility] [address] [place] [address]Djcmpjhclu (Bld) [Volume fraction]39.0 %Lmowen51.0-46.0[facility] TroyComment on above:Performed By: #### [id number] #### [facility] [address] [place] [address]Vfpxtfwvus (Bld) [Mass/Vol]13.4 g/uUIfbrxy31.0-16.0[facility] TroyComment on above:Performed By: #### [id number] #### [facility] [address] [place] [address]Qnbbtimziif (Bld) [#/Vol]2.9 E9/LNormal1.0-4.0[facility] TroyComment on above:Performed By: #### [id number] #### [facility] [address] [place] [address]Gjobjqgzssb/100 WBC (Bld)28.0 %Enense11.0-50.0[facility] TroyComment on above:Performed By: #### [id number] #### [facility] [address] [place] [address]HWF (RBC) [Entitic mass]31.8 adXzitbd34.0-34.0[facility] TroyComment on above:Performed By: #### [id number] #### [facility] [address] [place] [address] 501[address]XOHN (RBC) [Mass/Vol]34.3 g/kQJovarz09.4-36.0[facility] TroyComment on above:Performed By: #### [id number] #### [facility] [address] [place] [address]PPK (RBC) [Entitic vol]92.9 wNOookyi67.0-100.0[facility] TroyComment on above:Performed By: #### [id number] #### [facility] [address] [place] [address] 110[address]Vtnaijryz (Bld) [#/Vol]0.5 E9/LNormal0.2-1.0[facility] TroyComment on above:Performed By: #### [id number] #### [facility] [address] [place] [address]Uigvrgsqyrr (Bld) [#/Vol]6.9 E9/LNormal2.0-7.5FCleveland Clinic Euclid HospitalComment on above:Performed By: #### [id number] #### [facility] [address] [place] [address] 527[address]Hpsmsolwpbn/100 WBC (Bld)66.1 %Rdntqz29.0-75.0[facility] TroyComment on above:Performed By: #### [id number] #### [facility] [address] [place], [place] [address]Tttlluey mean volume (Bld) [Entitic vol]8.2 fLNormal6.4-10.8 [facility] TroyComment on above:Performed By: #### [id number] #### [facility] [address] [place], [place] [address]Nvaatblsx (Bld) [#/Vol]214.0 E9/NKdrwak255.0-500.0[facility] TroyComment on above:Performed By: #### [id number] #### [facility] [address] [place] [address] 158[address]DBB (Bld) [#/Vol]4.2 E12/LLow4.3-5.9[facility] Comment on above:Performed By: #### [id number] #### [facility] [address] [place] [address] 248[address]QFL corrected for nucl RBC Auto (Bld) [#/Vol]10.5 E9/LNormal 4.0-11.0[facility] TroyComment on above:Performed By: #### [id number] #### [facility] [address] [place] [address] 23[address]WBBJNUJADHvondgz By: Case Aponte on 18-20-6826Sayuvyr [Mass/Vol]4.4 g/dLNormal3.3 - 5.0 gm/dLRemisol ChemAlbumin/Globulin [Mass ratio] 2.0 {ratio}Normal1.1 - 2.2Remisol ChemALP [Catalytic activity/Vol]78 [iU]/d Vegirt16 - 98 Int._Unit/LRemisol ChemALT No additional P-5'-P [Catalytic activity/Vol]24 [iU]/dNormal6 - 46 Int._Unit/LRemisol ChemAnion gap [Moles/Vol] 10 mmol/LNormal6 - 16 mEq/LRemisol ChemAST [Catalytic activity/Vol]16 [iU]/d Normal5 - 43 Int._Unit/LRemisol ChemBilirubin [Mass/Vol]0.4 mg/dLNormal0.0 - 1.1 mg/dLRemisol ChemCalcium [Mass/Vol]8.8 mg/dLLow8.9 - 11.1 mg/dLRemisol Chem Chloride [Moles/Vol]106 mmol/OWxzvgq427 - 111 mmol/LRemisol ChemCO2 [Moles/Vol] 27 mmol/ZGjmgjw71 - 31 mmol/LRemisol ChemCreatinine [Mass/Vol]0.7 mg/dLNormal0.5 - 1.3 mg/dLRemisol EjinaMDE446 mL/min/1.73 k4Uxjlhx>=59mL/min/1.73 x1Rlohpok ChemGlobulin (S) [Mass/Vol]2.2 g/dLNormal1.4 - 4.0 gm/dLRemisol ChemGlucose [Mass/Vol]94 mg/bMErvyok47 - 199 mg/dLRemisol ChemLipase [Catalytic activity/Vol]8 U/LLow13 - 58 unit/LRemisol ChemPotassium [Moles/Vol]3.5 mmol/L Normal3.5 - 5.3 mmol/LRemisol ChemProtein [Mass/Vol]6.6 g/dLNormal6.0 - 7.8 gm/dLRemisol ChemSodium [Moles/Vol]139 mmol/SCgkzsq905 - 145 mmol/LRemisol Chem Urea nitrogen [Mass/Vol]9 mg/dLNormal5 - 21 mg/dLRemisol ChemUrea nitrogen/Creatinine [Mass ratio]13 mg/afLszoef28 - 20Remisol ChemCMPon 67-51-7122Dmykcwp [Mass/Vol]4.4 g/dLNormal3.3-5.0[facility] Comment on above:Performed By: #### [id number] #### [facility] [address] [place], [place] [address]Upwxpae/Globulin (S) [Mass conc ratio]2.9Ayeeyg5.1-2.2Fisher [facility] Orthopaedic InstituteComment on above:Performed By: #### [id number] #### [place] [facility] [address], [place] [address]KAT [Catalytic activity/Vol]78 Int._Unit/STrpzga89-44LdlkseKettering Health TroyComment on above:Performed By: #### [id number] #### [facility] [address] [place], [place] [address]JAK No additional P-5'-P [Catalytic activity/Vol]24 Int._Unit/L Normal6-46[facility] TroyComment on above:Performed By: #### [id number] #### [facility] [address] [place], [place] [address]Ptgir gap [Moles/Vol]10 mmol/LNormal6-16[facility] TroyComment on above:Performed By: #### [id number] #### [facility] [address] [place], [place] [address]GYR [Catalytic activity/Vol]16 Int._Unit/LNormal5-43[facility] TroyComment on above:Performed By: #### [id number] #### [facility] [address] [place], [place] [address]Pneotqotb [Mass/Vol]0.4 mg/dLNormal0.0-1.1FCleveland Clinic Euclid HospitalComment on above:Performed By: #### [id number] #### [facility] [address] [place] [address]Xsahnql [Mass/Vol]8.8 mg/dLLow8.9-11.1FCleveland Clinic Euclid HospitalComment on above:Performed By: #### [id number] #### [facility] [address] [place], [place] [address]Myvdjdsb [Moles/Vol]106 mmol/BDroxzj822-762YveyphKettering Health TroyComment on above:Performed By: #### [id number] #### [facility] [address] [place], [place] [address]WZ0 [Moles/Vol]27 mmol/EPwrtqe23-17IxdgldKettering Health Troy Comment on above:Performed By: #### [id number] #### [facility] [address] [place], [place] [address]Ofjwlrjosu [Mass/Vol]0.7 mg/dLNormal0.5-1.3FCleveland Clinic Euclid HospitalComment on above:Performed By: #### [id number] #### [place] [facility] [address] [place], [place] [address]Mqtimmbv (S) [Mass/Vol]2.2 g/dLNormal1.4-4.0[facility] TroyComment on above:Performed By: #### [id number] #### [facility] [address] [place], [place] [address]Yccmday [Mass/Vol]94 mg/vQFfqsim04-116OgwxjtKettering Health TroyComment on above:Performed By: #### [id number] #### [facility] [address] [place] [address]Ypnytyyvb [Moles/Vol]3.5 mmol/LNormal3.5-5.3FCleveland Clinic Euclid HospitalComment on above:Performed By: #### [id number] #### [facility] [address] [place], [place] [address]Zdbtmeh [Mass/Vol]6.6 g/dLNormal6.0-7.8[facility] Health TroyComment on above:Performed By: #### [id number] #### [facility] [address], [place] [address]Roxqog [Moles/Vol]139 mmol/VWuvljf717-966DrwhqjKettering Health TroyComment on above:Performed By: #### [id number] #### [facility] [address] [place], [place] [address]Ibfg nitrogen [Mass/Vol]9 mg/dLNormal5-21[facility] TroyComment on above:Performed By: #### [id number] #### [facility] [address] [place], [place] [address]Nnre nitrogen/Creatinine [Mass ratio]13 No FjybrUyilbb81-33 [facility] TroyComment on above:Performed By: #### [id number] #### [place] [facility] [address] [place], [place] [address]CDCFXJSCHZTxtajpz By: SYSTEM SYSTEM on 08-17-6851Obtelrjmo/100 WBC (Bld)0.2 %Normal0.0 - 2.0 %Remisol HemeBasophils/Leukocytes Auto (Bld) [Pure # fraction]0.0 E9/LNormal0.0 - 0.2 E9/LRemisol HemeEosinophils (Bld) [#/Vol]0.1 E9/LNormal0.0 - 0.5 E9/LRemisol HemeEosinophils/100 WBC (Bld)1.0 %Normal0.0 - 8.0 %Remisol HemeErythrocyte distribution width (RBC) [Ratio]13.1 %Sfuvgi12.9 - 14.2 %Remisol HemeHematocrit (Bld) [Volume fraction]39.0 %Clmwhn42.0 - 46.0 % Remisol HemeHemoglobin (Bld) [Mass/Vol]13.4 g/zNMorsds37.0 - 16.0 gm/dLRemisol HemeLymphocytes (Bld) [#/Vol]2.9 E9/LNormal1.0 - 4.0 E9/LRemisol Heme Lymphocytes/100 WBC (Bld)28.0 %Qofiai85.0 - 50.0 %Remisol HemeMCH (RBC) [Entitic mass]31.8 fpWexjcu93.0 - 34.0 pgRemisol HemeMCHC (RBC) [Mass/Vol]34.3 g/dL Wqpnum53.4 - 36.0 gm/dLRemisol HemeMCV (RBC) [Entitic vol]92.9 sFFkavhn73.0 - 100.0 fLRemisol HemeMonocytes (Bld) [#/Vol]0.5 E9/LNormal0.2 - 1.0 E9/LRemisol HemeMonocytes/100 WBC (Bld)4.7 %Normal4.0 - 14.0 %Remisol HemeNeutrophils (Bld) [#/Vol]6.9 E9/LNormal2.0 - 7.5 E9/LRemisol HemeNeutrophils/100 WBC (Bld)66.1 % Vqgkqi74.0 - 75.0 %Remisol HemePlatelet mean volume (Bld) [Entitic vol]8.2 fL Normal6.4 - 10.8 fLRemisol HemePlatelets (Bld) [#/Vol]214.0 E9/DWdqlpx985.0 - 500.0 E9/LRemisol HemeRBC (Bld) [#/Vol]4.2 E12/LLow4.3 - 5.9 E12/LRemisol Heme WBC corrected for nucl RBC Auto (Bld) [#/Vol]10.5 E9/LNormal4.0 - 11.0 E9/L Remisol HemeLipase Levelon 13-02-9578Qbwdci [Catalytic activity/Vol]8 U/LLow 13-58[facility] Health TroyComment on above:Performed By: #### [id number] #### [facility] [address] [place], [place] [address]mRSTzl 64-06-2390mHNF772 mL/min/1.73 c1Gqbnqr>=59K[facility] Health TroyComment on above:Performed By: #### [id number] #### [facility] [address] [place], [place] [address]Ixvesefcfd Visit Summaryon 03-95-4259Oqpjyxjsbc Visit Summary Ambulatory Visit Summary ERIK, SOCORRO Penny :2000 Visit Date:04/12/2024 Ambulatory Visit Instructions Your Diagnosis Influenza A Headache Nausea Chills Congestion of nasal sinus BMI 27.0-27.9,adult Your Care Team Attending Physician - Alana RUVALCABA-Ana, Charisse Primary Care Physician - An LOERA, [...] tablet to dissolve on tongue Pickup at [facility] New oseltamivir (Tamiflu 75 mg Cap) 1 Capsules By Mouth 2 times a day Influenza A Nausea BMI 27.0-27.9,adult Duration: 5 Days Pickup at [facility] 1985 Pharmacy Information [facility] 1985: [address] [place], [place] [id number] [phone] Medications and Immunizations Administered Given ondansetron 4 [...] you for choosing us for your care. [facility] Medicine Office/Clinic Noteon 19-51-5299Becsdj Medicine Office/Clinic NoteFacommunity memorial hospital Medicine Office/Clinic Note Chief Complaint migraine, nausea HPI Staff 23 year old female presents with migraine, nausea, sinus congestion onset yesterday History of Present Illness I have reviewed and verified the staff HPI to be accurate for this encounter. Portions of this record have been created with voice recognition software. Occasional wrong-word or???ibgds-b-lxiz??? substitutions may have occurred due to the [...] for tamiflu- sent to pharmacy. May use orer-qso-mpecauq cold and flu medications per package instructions for symptomat ic treatment. Fluids/rest encouraged, PRN tylenol/ibuprofen for pain/fever, may need to alternate. Follow up with PCP if not improving over next 5-7 days, sooner or ER if significantly worsening. Patient/parent verbalized understanding of tx plan. Ordered: oseltamivir, 75 mg = 1 cap(s), Oral, BID, X 5 day(s), # 10 cap(s), Refills(s) 0, Pharmacy: [facility], 175.6, cm, 04/12/24 13:49:00 EST, Height/Length Dosing, 83.8, kg, 04/12/24 13:49:00 EST, Weight Dosing 2. Headache (R51.9: Headache, unspecified) As above in #1 May use Tylenol or ibuprofen for headache/ fever per package instructions. 3. Nausea (R11.0: Nausea) Patien (more content not included)...[facility] HamiltonComment on above:Result Comment: Electronically Signed By: Charisse Russell\.br\Date and Time Signed: 04/12/24 18:34 ESTPatient Letter FTon [phone] Letter FTPatient Letter FT [address], [place] [phone] April 12, 2024 SOCORRO JOSEPH [address] [place] [address] : 2000 Please excuse SOCORRO JOSEPH from work . Date and/or Time of Absence: From: 04/15/24 To: 04/15/2024 May return to work on: 04/16/2024 Restrictions: None Comments: Please excuse due to an acute illness. Provider Signature: AZALIA Arizmendi Nurse Practitioner [facility] [address] [facility] [place] [address] [facility] HamiltonPatient Letter FTMCPatient Letter FT [address] [facility], [facility] [place] [phone] April 12, 2024 SOCORRO JOSEPH [address] [place] [address] : 2000 Please excuse SOCORRO JOSEPH from work . Date and/or Time of Absence: From: 04/12/2024 To: 04/13/2024 May return to work on: 04/14/2024 Restrictions: None Comments: Please excuse due to an acute illness. Provider Signature: AZALIA Arizmendi Nurse Practitioner [facility] [address] [facility] [place] [address] [facility] CenterED Note-Physicianon 21-84-3971CD Note-PhysicianED Note-Physician Basic Information Time Seen: Heri [...] COVID testing performed. Has been trying some ldoe-kps-skvtcig cough and cold medications. Muscle discharge now [...] 10 day(s), # 20 tab(s), Refills(s) 0, Pharmacy:[facility], 175.6, cm, 03/20/24 7:23:00 EST, Height/Length Dosing, 80, kg, 03/20/24 7:23:00 EST, Weight Dosing dextromethorphan-promethazine, 5 mL, Oral, q6hr for cough for 5 day(s), 200 mL, Refill(s) 0, [facility], 175.6, cm, 03/20/24 7:23:00 [...] days 03/23/[address] [place] [address]- Business (1) Additional Instructions: Patient Education Cough, [...] Every effort was mad (more content not included)...NormalKettering Health TroyComment on above:Result Comment: Electronically Signed By: Heri Lazcano PA-C\.br\Date and Time Signed: 03/20/2409:21 EST\.br\Electronically Co-Signed By: Roque Harris DO\.br\Date and Time Co-Signed: 03/21/24 08:01 ESTBMPon 28-39-2186Nwpxe gap [Moles/Vol]10 mmol/LNormal6-16[facility] Health TroyComment on above: Performed By: #### [id number] #### [facility] [address] [place], [place] [address]Nkvzzsk [Mass/Vol]9.4 mg/dLNormal8.9-11.1FCleveland Clinic Euclid HospitalComment on above:Performed By: #### [id number] #### [facility] [address] [place], [place] [address]Jymzopso [Moles/Vol]104 mmol/PIexdet032-813PijuirKettering Health TroyComment on above:Performed By: #### [id number] #### [facility] [address] [place], [place] [address]MK2 [Moles/Vol]28 mmol/NYuhksv81-59KuctynKettering Health Troy Comment on above:Performed By: #### [id number] #### [facility] [address] [place], [place] [address]Rccxrnhrzn [Mass/Vol]0.6 mg/dLNormal0.5-1.3FCleveland Clinic Euclid HospitalComment on above:Performed By: #### [id number] #### [facility] [address] [place], [place] [address]Qvtcpvw [Mass/Vol]93 mg/iEUrypzi49-071EotvsnKettering Health TroyComment on above:Performed By: #### [id number] #### [facility] [address] [place], [place] [address]Ojcvpgcud [Moles/Vol]4.2 mmol/LNormal3.5-5.3FCleveland Clinic Euclid HospitalComment on above:Performed By: #### [id number] #### [facility] [address] [place], [place] [address]Blkbdx [Moles/Vol]138 mmol/MIvhgfb610-847ZbemurKettering Health TroyComment on above:Performed By: #### [id number] #### [facility] [address] [place], [place] [address]Lyji nitrogen [Mass/Vol]15 mg/dLNormal5-21[facility] TroyComment on above:Performed By: #### [id number] #### [facility] [address] [place] [address]Cmvy nitrogen/Creatinine [Mass ratio]25 No TbbczWgyp82-81RppkkvKettering Health TroyComment on above:Performed By: #### [id number] #### [facility] [address] [place] [address]SVA w/ Auto Diffon 31-75-3000Lnsqhsqfs/100 WBC (Bld)0.7 %Normal 0.0-2.0[facility] TroyComment on above:Performed By: #### [id number] #### [facility] [address] [place] [address]Jkbedgfzb/Leukocytes Auto (Bld) [Pure # fraction]0.1 E9/LNormal 0.0-0.2FC[facility] Clinic Euclid HospitalComment on above:Performed By: #### [id number] #### [facility] [address] [place] [address]Luovhtcnujv (Bld) [#/Vol]0.3 E9/LNormal0.0-0.5FCleveland Clinic Euclid HospitalComment on above:Performed By: #### [id number] #### [facility] [address] [place] [address]Cfkxlbxmvtr/100 WBC (Bld)3.9 %Normal0.0-8.0[facility] TroyComment on above:Performed By: #### [id number] #### [facility] [address] [place] [address]Kiygmuwpdmk distribution width (RBC) [Ratio]12.7 %Normal 10.9-14.2FCleveland Clinic Euclid HospitalComment on above:Performed By: #### [id number] #### [facility] [address] [place] [address]Unuoxubjsm (Bld) [Volume fraction]38.7 %Camryl04.0-46.0[facility] TroyComment on above:Performed By: #### [id number] #### [facility] [address] [place] [address]Wpewhyxnvk (Bld) [Mass/Vol]13.4 g/gWRxynjp75.0-16.0[facility] TroyComment on above:Performed By: #### [id number] #### [facility] [address] [place] [address]Dhbipcbolxf (Bld) [#/Vol]2.2 E9/LNormal1.0-4.0[facility] TroyComment on above:Performed By: #### [id number] #### [facility] [address] [place] [address]Ncobewktznn/100 WBC (Bld)31.7 %Rcajet34.0-50.0[facility] TroyComment on above:Performed By: #### [id number] #### [facility] [address] [place] [address]QNY (RBC) [Entitic mass]32.2 cpUrdcid67.0-34.0[facility] TroyComment on above:Performed By: #### [id number] #### [facility] [address] [place] [address]ILLQ (RBC) [Mass/Vol]34.5 g/rKYvfhvg18.4-36.0[facility] TroyComment on above:Performed By: #### [id number] #### [facility] [address] [place] [address]HGB (RBC) [Entitic vol]93.1 uKQczssj19.0-100.0[facility] TroyComment on above:Performed By: #### [id number] #### [facility] [address] [place] [address]Kiwufplzl (Bld) [#/Vol]0.5 E9/LNormal0.2-1.0[facility] TroyComment on above:Performed By: #### [id number] #### [facility] [address] [place] [address]Zdjnrnwvahm (Bld) [#/Vol]4.0 E9/LNormal2.0-7.5FCleveland Clinic Euclid HospitalComment on above:Performed By: #### [id number] #### [facility] [address] [place] [address]Hevofmqbkwj/100 WBC (Bld)56.8 %Qzvalk76.0-75.0[facility] TroyComment on above:Performed By: #### [id number] #### [facility] [address] [place] [address]Psscjpcy mean volume (Bld) [Entitic vol]8.6 fLNormal6.4-10.8 [facility] TroyComment on above:Performed By: #### [id number] #### [facility] [address] [place] [address]Pnfimphbi (Bld) [#/Vol]264.0 E9/KXgfadh522.0-500.0[facility] TroyComment on above:Performed By: #### [id number] #### [facility] [address] [place] [address]KFR (Bld) [#/Vol]4.2 E12/LLow4.3-5.9[facility] Comment on above:Performed By: #### [id number] #### [facility] [address] [place] [address] [place] [address]SKQ corrected for nucl RBC Auto (Bld) [#/Vol]7.0 E9/LNormal 4.0-11.0Formerly [facility] Centerer [facility] Orthopaedic InstituteComment on above:Performed By: #### [id number] #### [place] [facility] [address] [place], [place] [address]HSBDUPQLJDeqsjcp By: SYSTEM SYSTEM on 55-81-1485Inmdwut [Mass/Vol]4.3 g/dLNormal3.3 - 5.0 gm/dLRemisol ChemAlbumin/Globulin [Mass [...] [Mass/Vol]9.4 mg/dLNormal8.9 - 11.1 mg/dLRemisol ChemChloride [Moles/Vol]104 mmol/QOigbwv911 - 111 mmol/LRemisol ChemCO2 [Moles/Vol]28 mmol/L Qclmzg17 - 31 mmol/LRemisol ChemCreatinine [Mass/Vol]0.6 mg/dLNormal0.5 - 1.3 mg/dLRemisol XzbpaXGH912 mL/min/1.73 i7Kltxdb>=59mL/min/1.73 s3Ecsmmma Chem Globulin (S) [Mass/Vol]2.7 g/dLNormal1.4 - 4.0 gm/dLRemisol ChemGlucose [Mass/Vol]93 mg/wELewbbp86 - 199 mg/dLRemisol ChemLipase [Catalytic activity/Vol]6 U/LLow13 - 58 unit/LRemisol ChemPotassium [Moles/Vol]4.2 mmol/L Normal3.5 - 5.3 mmol/LRemisol ChemProtein [Mass/Vol]7.0 g/dLNormal6.0 - 7.8 gm/dLRemisol ChemSodium [Moles/Vol]138 mmol/LOozfrp634 - 145 mmol/LRemisol Chem Urea nitrogen [Mass/Vol]15 mg/dLNormal5 - 21 mg/dLRemisol ChemUrea nitrogen/Creatinine [Mass ratio]25 mg/pdZdey99 - 20Remisol ChemED Clinical Summaryon [id number] Clinical SummaryED Clinical Summary [place] [id number] ED Clinical Summary Person Information Name: SOCORRO JOSEPH [facility] Age: 23 Years : 2000 Sex: Female Language: Thai PCP: Raquel Nolan MD Marital Status: Single [...] 03/20/2024 09:23:46 03/20/2024 09:23:46 03/20/2024 09:23:46 ADDRESS: [address] [place] [phone] PHYS DOC NOTES: MEDICAL INFORMATION: Prescriptions Given: New Medications [facility], [address] [place] [id number], [phone] amoxicillin-clavulanate (Augmentin 875 mg oral tablet) 1 [...] With: Address: When: Raquel [place] [address] Business (1) In 3 days 03/23/2024 DIAGNOSIS: Abdominal pain; CoughNormalFisher Roosevelt Medical CenterED Patient Summaryon [id number] Patient SummaryED Patient Summary [address] [address] Patient Discharge Instructions Person Information Name: SOCORRO JOSEPH Age: 23 Years Arrival Date: 03/20/2024 07:17:01 Discharge Diagnosis: Abdominal pain; Cough Primary Care Physician: Raquel Nolan MD Provider Information Primary Provider: Roque Harris DO [employer] Specialist:Heri Lazcano PA-C The exam and treatment you received in the Emergency Department were for an urgent problem and are not intended as complete care. It is important that you follow up with a doctor, nurse practitioner,or physician???s shipping assistant for ongoing care. If your symptoms [...] Address: When: [address] [address] [place] [address] Business (1) In 3 days 03/23/2024 In the event that this physician does not participate in your insurance network, please consult with your insurance company to find a nearby participating provider. Patient Education Materials: Cough, Adult; Abdominal Pain, Adult A MESSAGE TO ALL PATIENTS REGARDING OPIOIDS PRESCRIPTION OPIOIDS: WHAT YOU NEED TO KNOW Prescription opioids can be used to help relieve pzygvzyu-ih-jocfbt pain and are often prescribed following a [...] tell your health care (more content not included)...NormalKettering Health TroyExtra Blueon 99-29-3229Wxmw Collected PlasmaYesInvalid Interpretation CodeKettering Health TroyComment on above:Performed By: #### [id number] #### [place] [facility] [address] [place], [place] [address]KQTKHTCGSLDfpphls By: Rachael San on 03-20-2024 Basophils/100 WBC (Bld)0.7 %Normal0.0 - 2.0 %Remisol HemeBasophils/Leukocytes Auto (Bld) [Pure # fraction]0.1 E9/LNormal0.0 - 0.2 E9/LRemisol HemeEosinophils (Bld) [#/Vol]0.3 E9/LNormal0.0 - 0.5 E9/LRemisol HemeEosinophils/100 WBC (Bld) 3.9 %Normal0.0 - 8.0 %Remisol HemeErythrocyte distribution width (RBC) [Ratio] 12.7 %Gskdyb71.9 - 14.2 %Remisol HemeHematocrit (Bld) [Volume fraction]38.7 % Pahgyh54.0 - 46.0 %Remisol HemeHemoglobin (Bld) [Mass/Vol]13.4 g/iETqzrow88.0 - 16.0 gm/dLRemisol HemeLymphocytes (Bld) [#/Vol]2.2 E9/LNormal1.0 - 4.0 E9/L Remisol HemeLymphocytes/100 WBC (Bld)31.7 %Tixtuy80.0 - 50.0 %Remisol HemeMCH (RBC) [Entitic mass]32.2 wcAomero78.0 - 34.0 pgRemisol HemeMCHC (RBC) [Mass/Vol] 34.5 g/tHCnsrhz56.4 - 36.0 gm/dLRemisol HemeMCV (RBC) [Entitic vol]93.1 fLNormal 80.0 - 100.0 fLRemisol HemeMonocytes (Bld) [#/Vol]0.5 E9/LNormal0.2 - 1.0 E9/L Remisol HemeMonocytes/100 WBC (Bld)6.9 %Normal4.0 - 14.0 %Remisol Heme Neutrophils (Bld) [#/Vol]4.0 E9/LNormal2.0 - 7.5 E9/LRemisol HemeNeutrophils/100 WBC (Bld)56.8 %Nhtxpi57.0 - 75.0 %Remisol HemePlatelet mean volume (Bld) [Entitic vol]8.6 fLNormal6.4 - 10.8 fLRemisol HemePlatelets (Bld) [#/Vol]264.0 E9/QXjsmio998.0 - 500.0 E9/LRemisol HemeRBC (Bld) [#/Vol]4.2 E12/LLow4.3 - 5.9 E12/LRemisol HemeWBC corrected for nucl RBC Auto (Bld) [#/Vol]7.0 E9/LNormal4.0 - 11.0 E9/LRemisol HemeHep Func Panelon 45-73-9985Cgnyeoh [Mass/Vol]4.3 g/dL Normal3.3-5.0[facility] TroyComment on above:Performed By: #### [id number] #### [facility] [address] [place], [place] [address]Ecxjyzt/Globulin (S) [Mass conc ratio]1.7Gztxwy2.1-2.2Fisher [facility] Orthopaedic InstituteComment on above:Performed By: #### [id number] #### [facility] [address] [place], [place] [address]TYO [Catalytic activity/Vol]110 Int._Unit/NKvch24-36EkckrrKettering Health TroyComment on above:Performed By: #### [id number] #### [facility] [address] [place], [place] [address]ZAG No additional P-5'-P [Catalytic activity/Vol]26 Int._Unit/L Normal6-46[facility] TroyComment on above:Performed By: #### [id number] #### [facility] [address] [place], [place] [address]JKU [Catalytic activity/Vol]16 Int._Unit/LNormal5-43[facility] TroyComment on above:Performed By: #### [id number] #### [facility] [address] [place], [place] [address]Ydwjcynoa [Mass/Vol]0.7 mg/dLNormal0.0-1.1FCleveland Clinic Euclid HospitalComment on above:Performed By: #### [id number] #### [facility] [address] [place], [place] [address]Tvwsjhfxm.direct [Mass/Vol]0.1 mg/dLNormal0.0-0.4FCleveland Clinic Euclid HospitalComment on above:Performed By: #### [id number] #### [facility] [address] [place] [address]Zgdiohnns.indirect [Mass or moles/Vol]0.6 mg/dLNormal0.1-0.9 [facility] TroyComment on above:Performed By: #### [id number] #### [facility] [address] [place] [address]Eirwjfpq (S) [Mass/Vol]2.7 g/dLNormal1.4-4.0[facility] Health TroyComment on above:Performed By: #### [id number] #### [facility] [address] [place] [address]Xzbrltm [Mass/Vol]7.0 g/dLNormal6.0-7.8[facility] TroyComment on above:Performed By: #### [id number] #### [facility] [address] [place] [address]Ajsijt Levelon 44-02-0027Wuaezk [Catalytic activity/Vol]6 U/L Vwg12-30SrzpxhKettering Health TroyComment on above:Performed By: #### [id number] #### [facility] [address] [place] [address]HBQHYXSIFlhjodc By: Radha Case on 28-97-3072UYV.beta subunit (U) [Moles/Vol]NegativeNormalFT Man SeroU BetaHcg Qualon 53-67-4686ODL.beta subunit (U) [Moles/Vol]NegativeNormalKettering Health TroyComment on above:Performed By: #### [id number] #### [facility] [address] [place], [place] [address]QU with Cult Rflxon 67-87-6930Ophqbizu Auto Ql (U)TraceNormal TraceKettering Health TroyComment on above:Performed By: #### [id number] #### [facility] [address] [place], [place] [address]Xqjvcuhlh Ql (U)NegativeNormalNegMercy Health Defiance HospitalComment on above:Performed By: #### [id number] #### [facility] [address] [place], [place] [address]Gfftmod (U)ClearNormalClearKettering Health TroyComment on above:Performed By: #### [id number] #### [facility] [address] [place], [place] [address]Zqnxt (U)YellowNormalYellowKettering Health TroyComment on above:Result Comment: Microscopic readings are only performed on those samples that meet specific criteria set forth by [facility].Performed By: #### [id number] #### [facility] [address] [place], [place] [address]Rrcbtovgmu cells.squamous Auto (Urine sed) [#/Area]3-4Invalid Interpretation CodeKettering Health TroyComment on above:Performed By: #### [id number] #### [facility] [address] [place], [place] [address]Vihmsrt Ql (U)NegativeNormalNegMercy Health Defiance Hospital Comment on above:Performed By: #### [id number] #### [facility] [address] [place], [place] [address]Pmmxqoadbp Auto test strip (U) [Mass/Vol]3+ mg/dLAbnormal [facility] Health DaytonComment on above:Performed By: #### [id number] #### [facility] [address] [place], [place] [address]Iwpcsov Auto test strip Ql (U)NegativeNormalNegativeKettering Health TroyComment on above:Performed By: #### [id number] #### [facility] [address] [place], [place] [address]Yyjngutvn esterase Auto test strip Ql (U)NegativeNormalNegative [facility] TroyComment on above:Performed By: #### [id number] #### [facility] [address] [place] [address]Rcamz Auto Ql (U)TraceNormalNegativeK[facility]tering Health [facility] Comment on above:Performed By: #### [id number] #### [facility] [address] [place] [address]Ibogylc Auto test strip Ql (U)NegativeNormalNegativeKettering Health TroyComment on above:Performed By: #### [id number] #### [facility] [address] [place] [address] 09208eU (U)7.5 [pH]Invalid Interpretation Code5.0-9.0[facility] Health TroyComment on above:Performed By: #### [id number] #### [facility] [address] [place] [address]28[address]Ijwwamu Ql (U)NegativeNormalNegativeKettering Health [facility] Comment on above:Performed By: #### [id number] #### [facility] [address] [place] [address] 26461GXE Ql (U)9-19Vszffytl4-3ZpeufjCleveland Clinic Euclid HospitalComment on above:Performed By: #### [id number] #### [facility] [address] [place] [address] 375[address]Rxcqzuhd gravity (U) [Rel density]1.012Invalid Interpretation Code1.005-1.030[facility] TroyComment on above:Performed By: #### [id number] #### [facility] [address] [place], [place] [address]Abivfgyaqdtx (U) [Mass/Vol]NegativeNormalNegativeFormerly Sout[facility] Medical Centerer [facility] Orthopaedic InstituteComment on above:Performed By: #### [id number] #### [place] [facility] [address] [place], [place] [address]MRL Auto (Urine sed) [#/Area]6-2Ipjkob5-8Yuilab [facility] Orthopaedic InstituteComment on above:Performed By: #### [id number] #### [place] [address] [place], [place] [address]Iwrb of Urine collection methodClean CatchNormUniversity Hospitals Elyria Medical CenterComment on above:Performed By: #### [id number] #### [place] [address] [place], [place] [address]HOVBVFXCRHGcdfhzk By: SYSTEM SYSTEM on 55-03-1102Qdzkqvyg Auto Ql (U)Trace /HPFNormalTrace/HPFFT UA Auto SSBilirubin Ql (U)NegativeNormal Negativemg/dLOKLAHOMA CITY VETER[facility] [place] UA Auto SSClarity (U)Clear (03/20/24 7:29 AM)NormalClearFROGER MILLS [facility] [place] U[facility] Auto SSColor (U)Yellow 1 (03/20/24 7:29 AM)NormalYellowOKLAHOMA CITY VETERANS [facility] [place] UA Auto SSComment on above:Interpretive Data: Microscopic readings are only performed on those samples that meet specific criteria set forth by [facility].Epithelial cells.squamous Auto (Urine sed) [#/Area]3-4 graded/HPFInvalid Interpretation CodeFT UA Auto SSGlucose Ql (U)NegativeNormalNegativemg/dLOKLAHOMA CITY VETERANS [facility] [place] UA Auto SS Hemoglobin Auto test strip (U) [Mass/Vol]3+ mg/dLInvalid Interpretation Code Negativemg/dLOKLAHOMA CITY VETERANS [facility] [place] UA Auto SSKetones Auto test strip Ql (U)NegativeNormal Negativemg/dLFT UA Auto SSLeukocyte esterase Auto test strip Ql (U)Negative NormalNegativeLeu/uLFT UA Auto SSMucus Auto Ql (U)Trace graded/LPFNormal Negativegraded/LPFFTMC UA Auto SSNitrite Auto test strip Ql (U)NegativeNormal Negativemg/dLFTMC UA Auto SSpH (U)7.5 *NA* (03/20/24 7:29 AM)Invalid Interpretation Code5.0 - 9.0[facility] [place] UA Auto SSProtein Ql (U)NegativeNormalNegativemg/dLOKLAHOMA [facility]ET[facility] [place] UA Auto SSRBC Ql (U)4-20 graded/HPFInvalid Interpretation Code0-3graded/HPFOKLAHOMA CITY VETERANS AD[facility]IST[facility] [place] UA Auto SSSpecific gravity (U) [Rel density]1.012 *NA* (03/20/24 7:29 AM)Invalid Interpretation Code1.005 - 1.030[facility] [place] UA Auto SS Urobilinogen (U) [Mass/Vol]NegativeNormalNegativemg/dLOKLAHOMA [facility]ET[facility] [place] UA Auto SSWBC Auto (Urine sed) [#/Area]0-5 graded/HPFNormal0-5graded/HPFOKLAHOMA CITY VETER[facility] [place] UA Auto SSURINALYSIS Ordered By: Chandana Tellez on 45-31-2401FF Spec DescClean Catch (03/20/24 7:29 AM)NormalOKLAHOMA CITY VETERANS [facility] [place] UA Auto SSXR Abdomen Series w/ Chest 1 Viewon 79-57-1430OK Abdomen Series w/ Chest 1 ViewExam Date/Time: [...] REPORT Dictated: 03/20/2024 8:50 am Roque Vasques MD. Signed (Electronic Signature): 03/20/2024 8:50 am Signed by: Roque Vasques MD Transcribed by: KEE Technologist: SANDER Technical Comments Radiation Dose: Ka,r in mGy = na DAP = naNormalKettering Health TroyeGFRon 98-71-5348nYJG763 mL/min/1.73 m2 Normal>=[address] [place], [place] [address]Comment on above:Performed By: #### [id number] #### [facility] [address] [place], [place] [address]Wpcbgrtldz Visit Summaryon 32-11-2672Fuapwevhdx Visit Summary Ambulatory Visit Summary SOCORRO JOSEPH :2000 Visit Date:03/15/2024 Ambulatory [...] pneumonia Cough Duration: 5 Days Pickup at [facility] Pharmacy Information [facility]: [address] [place], [place] [id number] [phone] Allergies No Known Allergies Problems Ongoing - [...] you for choosing us for your care. [facility] Office/Clinic Noteon 72-84-7124Cztism Medicine Office/Clinic NoteFacommunity memorial hospital Medicine Office/Clinic Note Chief Complaint cough HPI [...] created with voice recognition software. Occasional wrong-word or???uvncf-s-akac??? substitutions may have occurred due to the [...] diagnosed with pneumonia. She has been using wrif-eik-czzlcdw medications like DayQuil, Tylenol Cold and flu [...] for 5 day(s), 200 mL, Refill(s) 0, [facility], 175, cm, 03/15/24 15:52:00 EST, Height/Length Dosing, 84, kg, 03/15/24 15:52:00 EST, Weight Dosing Rapid COVID POC 18308 XR Chest 2 Views Cough (R05.9: Cough, unspecified) Ordered: brompheniramine/dextromethorphan/PSE, 10 mL, Oral, QID for 5 day(s), 200 mL, Refill(s) 0, [facility], 175, cm, 03/15/24 15:52:00 EST, Height/Length Dosing, 84, kg, 03/15/24 15:52:00 EST, Weight Dosing Rapid COVID POC 55611 XR Chest 2 Views Follow-up With When Contact Information An LOERA, [place] [place] [address]- Additional Instructions: Patient Education Cough, Adult, Etgs-bg-Keyi Viral Respiratory Infection, Ucka-Nq-Grjf Problem List/Past Medical History Ongoing Depression Smoker Historical Smoker Supervision of normal in second trimester Procedure/Surgical History Insertion of IUD (07/18/2019), Tubal ligation. Medications Bromfed DM oral syrup, 10 mL, Oral, QID Allergies No Known Allergies Social History Alcohol - Denies Alcohol Use, 06/29/2023 Liquor, 1-2 times per month, 06/16/2020 DENIES, Household alcohol concerns: No., 12/25/2019 Employment/School Employed, Highest education (more content not included)...[facility] HamiltonComment on above:Result Comment: Electronically Signed By: Charisse Russell\.br\Date and Time Signed: 03/15/24 16:45 ESTFacommunity memorial hospital Medicine Office/Clinic NoteFami Medicine Office/Clinic Note Chief [...] for 5 day(s), 200 mL, Refill(s) 0, [facility], 175, cm, 03/15/24 15:52:00 EST, Height/Length Dosing, 84, kg, 03/15/24 15:52:00 EST, Weight Dosing Rapid COVID POC 50182 XR Chest 2 Views 2. Cough (R05.9: Cough, unspecified) Ordered: brompheniramine/dextromethorphan/PSE, 10 mL, Oral, QID for 5 day(s), 200 mL, Refill(s) 0, [facility], 175, cm, 03/15/24 15:52:00 EST, Height/Length Dosing, 84, kg, 03/15/24 15:52:00 EST, Weight Dosing Rapid COVID POC 01937 XR Chest 2 Views Follow-up No qualifying [...] IMPRESSION: NO RADIOGRAPHIC EVIDENC (more content not included)...[facility] HamiltonComment on above:Result Comment: Electronically Signed By: Charisse Russell\.nando\Date and Time Signed: 03/15/24 16:37 ESTXR Chest [...] in mGy = na DAP = naNormalFisher [facility] Orthopaedic InstituteIGP,APTIMA HPV,AGE GDLNon 88-77-4440MWE GDLN ACOG TESTINGNote.NOMS HealthcareComment on above:TESTS RESULT FLAG UNITS REF RANGE LAB Clinician Provided Cytology Information Source.............Cervix;Endocervix No. of containers..01 ThinPrep Vial Age Algo ACOG Rebecca... -03 05 FLAG LEGEND: L-Low Normal,H-High Normal,LL-Alert Low,HH-Alert High <-Panic Low,>-Panic High,A-Abnormal,AA-Critical Abnormal Performed at: 01 =G [facility] [address] [place] [address] Rosalia Harp MD, IGP, RFX APTIMA HPV ASCUNote.NOMS HealthcareComment on above:TESTS RESULT FLAG UNITS REF RANGE LAB DIAGNOSIS: 02 NEGATIVE FOR INTRAEPITHELIAL LESION OR MALIGNANCY. Specimen adequacy: 02 Satisfactory for evaluation. No endocervical component is identified. Performed by: 02 Hillary Campa, Administrative Support Assistant ([facility]) . 02 Note: Note 02 The Pap [...] Low,>-Panic High,A-Abnormal,AA-Critical Abnormal Performed at: [address] [facility] [address] [place] [address] Rosalia Harp MD, Performed at: =G - [facility] [address] [id number] Metal Machinist: Rosalia Harp MD, Phone: [phone] Performed at: [facility] [address] [id number] Metal Machinist: Rosalia Harp MD, Phone: [phone] BRUSH-SPATULA CERVIX ENDOCERVIX [facility] w/ Auto Diffon 23-39-9777Luymcranr/100 WBC (Bld)0.5 %Normal0.0-2.0[facility] TroyComment on above:Performed By: #### [id number] #### [facility] [address] [place] [address]Afltwyhvg/Leukocytes Auto (Bld) [Pure # fraction]0.0 E9/LNormal 0.0-0.2FCleveland Clinic Euclid HospitalComment on above:Performed By: #### [id number] #### [facility] [address] [place] [address]Eotcebvzdlp (Bld) [#/Vol]0.1 E9/LNormal0.0-0.5FCleveland Clinic Euclid HospitalComment on above:Performed By: #### [id number] #### [facility] [address] [place] [address]Zfufnwupzzu/100 WBC (Bld)1.1 %Normal0.0-8.0[facility] TroyComment on above:Performed By: #### [id number] #### [facility] [address] [place] [address] 44[address]Obxnkqqxywa distribution width (RBC) [Ratio]13.1 %Normal 10.9-14.2FCleveland Clinic Euclid HospitalComment on above:Performed By: #### [id number] #### [facility] [address] [place] [address]Nieapcwcdk (Bld) [Volume fraction]39.5 %Ojives02.0-46.0[facility] TroyComment on above:Performed By: #### [id number] #### [facility] [address] [place] [address]Jwybjajugz (Bld) [Mass/Vol]13.8 g/sLDvwgyf09.0-16.0[facility] TroyComment on above:Performed By: #### [id number] #### [facility] [address] [place] [address] 26365Bduwwoidkqe (Bld) [#/Vol]3.0 E9/LNormal1.0-4.0[facility] TroyComment on above:Performed By: #### [id number] #### [facility] [address] [place] [address]Jzxxscjszih/100 WBC (Bld)46.0 %Gbqfkv62.0-50.0[facility] TroyComment on above:Performed By: #### [id number] #### [facility] [address] [place] [address] 36720OGC (RBC) [Entitic mass]32.4 ixAnfcts49.0-34.0[facility] TroyComment on above:Performed By: #### [id number] #### [facility] [address] [place] [address] 98514GFLT (RBC) [Mass/Vol]34.8 g/rWFqvuan37.4-36.0[facility] TroyComment on above:Performed By: #### [id number] #### [facility] [address] [place] [address] 03784RJD (RBC) [Entitic vol]93.0 kZKxviek05.0-100.0[facility] TroyComment on above:Performed By: #### [id number] #### [facility] [address] [place] [address] 65693Eytutmtjb (Bld) [#/Vol]0.4 E9/LNormal0.2-1.0[facility] TroyComment on above:Performed By: #### [id number] #### [facility] [address] [place] [address] 26629Kyghiefhkzr (Bld) [#/Vol]3.0 E9/LNormal2.0-7.5FCleveland Clinic Euclid HospitalComment on above:Performed By: #### [id number] #### [facility] [address] [place] [address] 78[address]Xvjwzopflta/100 WBC (Bld)46.2 %Jvvgir48.0-75.0[facility] TroyComment on above:Performed By: #### [id number] #### [facility] [address] [place], [place] [address]Raigflih mean volume (Bld) [Entitic vol]8.7 fLNormal6.4-10.8 [facility] TroyComment on above:Performed By: #### [id number] #### [facility] [address] [place], [place] [address]Qwtgmpkkg (Bld) [#/Vol]254.0 E9/DYmtfen157.0-500.0[facility] TroyComment on above:Performed By: #### [id number] #### [facility] [address] [place] [address] 25349OIS (Bld) [#/Vol]4.3 E12/LNormal4.3-5.9[facility] TroyComment on above:Performed By: #### [id number] #### [facility] [address] [place] [address]KVK corrected for nucl RBC Auto (Bld) [#/Vol]6.5 E9/LNormal 4.0-11.0[facility] TroyComment on above:Performed By: #### [id number] #### [facility] [address] [place] [address]CCJAESWEFMeojdcp By: SYSTEM SYSTEM on 33-43-2372Nulwxkd [Mass/Vol]4.7 g/dLNormal3.3 - 5.0 gm/dLRemisol ChemAlbumin/Globulin [Mass ratio] 2.0 {ratio}Normal1.1 - 2.2Remisol ChemALP [Catalytic activity/Vol]78 [iU]/d Bgerjp09 - 98 Int._Unit/LRemisol ChemALT No additional P-5'-P [Catalytic activity/Vol]26 [iU]/dNormal6 - 46 Int._Unit/LRemisol ChemAnion gap [Moles/Vol]8 mmol/LNormal6 - 16 mEq/LRemisol ChemAST [Catalytic activity/Vol]17 [iU]/dNormal 5 - 43 Int._Unit/LRemisol ChemBilirubin [Mass/Vol]0.6 mg/dLNormal0.0 - 1.1 mg/dL Remisol ChemCalcium [Mass/Vol]9.7 mg/dLNormal8.9 - 11.1 mg/dLRemisol Chem Chloride [Moles/Vol]104 mmol/MEsotrk789 - 111 mmol/LRemisol ChemCholesterol [Mass/Vol]198 mg/zEAnummo758 - 200 mg/dLRemisol ChemCholesterol in HDL [Mass/Vol]37 mg/dLInvalid Interpretation CodeRemisol ChemComment on above:Result Comment: '>= 60 LOW RISK' '<= 40 HIGH RISK'Cholesterol in LDL [Mass/Vol]141 mg/dLHigh<=129mg/dLRemisol ChemCholesterol in VLDL [Mass/Vol]62 mg/dLHigh7 - 40 mg/dLRemisol ChemCO2 [Moles/Vol]30 mmol/QGboxef75 - 31 mmol/LRemisol ChemCreatinine [Mass/Vol]0.6 mg/dLNormal0.5 - 1.3 mg/dLRemisol NrykdLWA043 mL/min/1.73 n1Zdxixu >=59mL/min/1.73 j6Tshdzov ChemGlobulin (S) [Mass/Vol]2.4 g/dLNormal1.4 - 4.0 gm/dLRemisol ChemGlucose [Mass/Vol]102 mg/fXQdsxtl60 - 199 mg/dLRemisol Chem Lipase [Catalytic activity/Vol]13 U/WNnptvv07 - 58 unit/LRemisol ChemPotassium [Moles/Vol]4.4 mmol/LNormal3.5 - 5.3 mmol/LRemisol ChemProtein [Mass/Vol]7.1 g/dLNormal6.0 - 7.8 gm/dLRemisol ChemSodium [Moles/Vol]138 mmol/VHgfwpm292 - 145 mmol/LRemisol ChemTriglyceride [Mass/Vol]309 mg/dLHigh<=149mg/dLRemisol ChemTSH Qn1.11 m[IU]/LNormal0.34 - 5.60 mcIU/mLRemisol ChemUrea nitrogen [Mass/Vol]12 mg/dLNormal5 - 21 mg/dLRemisol ChemUrea nitrogen/Creatinine [Mass ratio]20 mg/mg Oezafo34 - 20Remisol ChemCHEMISTRYOrdered By: Angy Rdz on 61-14-9171TwA3l (Bld) [Mass fraction]4.9 %Normal<=5.9%[facility] [place] ChemAutoSSCMPon 42-24-7122Iilcsyl [Mass/Vol]4.7 g/dLNormal3.3-5.0[facility] TroyComment on above: Performed By: #### [id number] #### [facility] [address] [place] [address]Vhxthlv/Globulin (S) [Mass conc ratio]2.2Txwnsq7.1-2.2FCleveland Clinic Euclid HospitalComment on above:Performed By: #### [id number] #### [facility] [address] [place] [address] 24664LSP [Catalytic activity/Vol]78 Int._Unit/NPaocco87-14KmqgstKettering Health TroyComment on above:Performed By: #### [id number] #### [facility] [address] [place] [address] 49[address]EHI No additional P-5'-P [Catalytic activity/Vol]26 Int._Unit/L Normal6-46[facility] Health TroyComment on above:Performed By: #### [id number] #### [facility] [address] [place], [place] [address]Yysaf gap [Moles/Vol]8 mmol/LNormal6-16[facility] Health TroyComment on above:Performed By: #### [id number] #### [facility] [address] [place], [place] [address]XAJ [Catalytic activity/Vol]17 Int._Unit/LNormal5-43[facility] TroyComment on above:Performed By: #### [id number] #### [facility] [address] [place], [place] [address]Blrgiwhqp [Mass/Vol]0.6 mg/dLNormal0.0-1.1FCleveland Clinic Euclid HospitalComment on above:Performed By: #### [id number] #### [facility] [address] [place], [place] [address]Jrybabr [Mass/Vol]9.7 mg/dLNormal8.9-11.1FCleveland Clinic Euclid HospitalComment on above:Performed By: #### [id number] #### [facility] [address] [place], [place] [address]Oilmsmxm [Moles/Vol]104 mmol/VPtswek608-489AzckgdKettering Health TroyComment on above:Performed By: #### [id number] #### [facility] [address] [place], [place] [address]OK7 [Moles/Vol]30 mmol/RBybplb59-97YwhwkoKettering Health Troy Comment on above:Performed By: #### [id number] #### [facility] [address] [place], [place] [address]Glrppbfjtt [Mass/Vol]0.6 mg/dLNormal0.5-1.3FCleveland Clinic Euclid HospitalComment on above:Performed By: #### [id number] #### [facility] [address] [place], [place] [address]Jomyypvg (S) [Mass/Vol]2.4 g/dLNormal1.4-4.0[facility] TroyComment on above:Performed By: #### [id number] #### [facility] [address] [place], [place] [address]Gizswbv [Mass/Vol]102 mg/bCMthdcy76-323KjsuviKettering Health TroyComment on above:Performed By: #### [id number] #### [facility] [address] [place], [place] [address]Drcuzfmmt [Moles/Vol]4.4 mmol/LNormal3.5-5.3FCleveland Clinic Euclid HospitalComment on above:Performed By: #### [id number] #### [facility] [address] [place], [place] [address]Nbbftye [Mass/Vol]7.1 g/dLNormal6.0-7.8[facility] TroyComment on above:Performed By: #### [id number] #### [facility] [address] [place], [place] [address]Mpxlqg [Moles/Vol]138 mmol/WFtiryd431-872GcrnftKettering Health TroyComment on above:Performed By: #### [id number] #### [facility] [address] [place], [place] [address]Dbzo nitrogen [Mass/Vol]12 mg/dLNormal5-21[facility] TroyComment on above:Performed By: #### [id number] #### [facility] [address] [place], [place] [address]Skbg nitrogen/Creatinine [Mass ratio]20 No OborbCyyrgs44-38 [facility] TroyComment on above:Performed By: #### [id number] #### [facility] [address] [place], [place] [address]JNSQDJVBBXVzqbkhx By: SYSTEM SYSTEM on 02-50-2225Ydmchodtq/100 WBC (Bld)0.5 %Normal0.0 - 2.0 %Remisol HemeBasophils/Leukocytes Auto (Bld) [Pure # fraction]0.0 E9/LNormal0.0 - 0.2 E9/LRemisol HemeEosinophils (Bld) [#/Vol]0.1 E9/LNormal0.0 - 0.5 E9/LRemisol HemeEosinophils/100 WBC (Bld)1.1 %Normal0.0 - 8.0 %Remisol HemeErythrocyte distribution width (RBC) [Ratio]13.1 %Vqssds04.9 - 14.2 %Remisol HemeHematocrit (Bld) [Volume fraction]39.5 %Ohxsuw04.0 - 46.0 % Remisol HemeHemoglobin (Bld) [Mass/Vol]13.8 g/fGRbrhiv63.0 - 16.0 gm/dLRemisol HemeLymphocytes (Bld) [#/Vol]3.0 E9/LNormal1.0 - 4.0 E9/LRemisol Heme Lymphocytes/100 WBC (Bld)46.0 %Iwckgy64.0 - 50.0 %Remisol HemeMCH (RBC) [Entitic mass]32.4 voHnwatf53.0 - 34.0 pgRemisol HemeMCHC (RBC) [Mass/Vol]34.8 g/dL Rgiqgm04.4 - 36.0 gm/dLRemisol HemeMCV (RBC) [Entitic vol]93.0 rTJcejqs95.0 - 100.0 fLRemisol HemeMonocytes (Bld) [#/Vol]0.4 E9/LNormal0.2 - 1.0 E9/LRemisol HemeMonocytes/100 WBC (Bld)6.2 %Normal4.0 - 14.0 %Remisol HemeNeutrophils (Bld) [#/Vol]3.0 E9/LNormal2.0 - 7.5 E9/LRemisol HemeNeutrophils/100 WBC (Bld)46.2 % Uhjftl05.0 - 75.0 %Remisol HemePlatelet mean volume (Bld) [Entitic vol]8.7 fL Normal6.4 - 10.8 fLRemisol HemePlatelets (Bld) [#/Vol]254.0 E9/ICetvev670.0 - 500.0 E9/LRemisol HemeRBC (Bld) [#/Vol]4.3 E12/LNormal4.3 - 5.9 E12/LRemisol HemeWBC corrected for nucl RBC Auto (Bld) [#/Vol]6.5 E9/LNormal4.0 - 11.0 E9/L Remisol MolaOmpO3qvq 28-34-1071NkF4b (Bld) [Mass fraction]4.9 %Normal<=5.9[facility] TroyComment on above:Performed By: #### [id number] #### [facility] [address] [place] [address]Zqvifp Levelon 28-29-7931Txcloh [Catalytic activity/Vol]13 U/L Dnpdlv90-50QvggepKettering Health TroyComment on above:Performed By: #### [id number] #### [facility] [address] [place], [place] [address]Uvdne Panelon 89-29-9099Lubvnvgudjz [Mass/Vol]198 mg/dLNormal 120-200K[facility] TroyComment on above:Performed By: #### [id number] #### [facility] [address] [place], [place] [address]Yvtppijqvca in HDL [Mass/Vol]37 mg/dLInvalid Interpretation CodeKettering Health TroyComment on above:Result Comment: '>= 60 LOW RISK' '<= 40 HIGH RISK'Performed By: #### [id number] #### [facility] [address] [place], [place] [address]Jvuygiggwlv in LDL [Mass/Vol]141 mg/dLHigh<=129K[facility] Health TroyComment on above:Performed By: #### [id number] #### [facility] [address] [place], [place] [address]Yeombasmaik in VLDL [Mass/Vol]62 mg/dLHigh7-40K[facility] Health TroyComment on above:Performed By: #### [id number] #### [facility] [address] [place], [place] [address]Onsrkigudbyd [Mass/Vol]309 mg/dLHigh<=149K[facility] Health TroyComment on above:Performed By: #### [id number] #### [facility] [address] [place], [place] [address]VTBqu 21-71-0843RDX Qn1.11 m[IU]/LNormal0.34-5.60[facility] TroyComment on above:Performed By: #### [id number] #### [facility] [address] [place], [place] [address]dNJGwk 10-36-3636vADK845 mL/min/1.73 d4Mxabeb>=59K[facility]tering Health TroyComment on above:Order Comment: Order added by Discern Expert. Performed By: #### [id number] #### [facility] [address] [place], [place] [address]BB Abdomen/Pelvis w/ Contraston 92-63-4300IW Abdomen/Pelvis w/ ContrastExam Date/Time: 06/29/2023 22:13 EDT [...] Isovue 300 Contrast amount in ml's: 100NormalFisher [facility] Orthopaedic InstituteCT Head or Brain w/o Contraston 54-21-3564EK Head or Brain w/o ContrastExam Date/Time: 06/29/2023 [...] Pk Foley M.D. Transcribed by: KEE Technologist: [facility] HospitalDischarge Instructionson 27-75-3050Wdjmegakr Instructions [id number] Children's Hospital Clinical Summaryon 65-69-5639WJ Clinical Summary [place] [id number] ED Clinical Summary Person Information Name: SOCORRO JOSEPH [facility] Age: 22 Years : 2000 Sex: Female Language: Thai PCP: Raquel Nolan MD Marital Status: Single [...] 06/30/2023 00:02:57 06/30/2023 00:02:57 06/30/2023 00:02:57 ADDRESS: [address] [place] [id number] PHYS DOC NOTES: MEDICAL INFORMATION: Prescriptions Given: New Medications [facility], [address] [place], [place] [id number], [phone] methocarbamol (Robaxin 500 mg Tab) 1 Tablets By Mouth 3 times a day for 3 Days. Refills: 0. naproxen (Naprosyn 500 mg Tab) 1 Tablets By Mouth 2 times a day as needed for pain. Refills: 0. Medications to Continue Taking That Have Changed [facility], [address] [place], [place] [id number], [phone] START: ondansetron (Zofran ODT 4 mg Tab-Dis) 1 Tablets By Mouth every 8 hours. Refills: 0. Other Medications START: ondansetron (Zofran ODT 4 mg Tab-Dis) 1 Tablets By Mouth every 8 hours as needed Nausea/Vomiting. Refills: 0. PATIENT EDUCATION INFORMATION: Instructions: Nausea and Vomiting, Adult, Vbrh-ur-Oyqs; General Headache Without Cause, Jhto-fc-Tefz; Abdominal Pain, Adult, Ellt-nk-Nfvq Follow up: With: Address: When: Raquel [address] [place] [address] Business (1) In 3 days 07/02/2023 Comments: You can take the medications as prescribed as needed for pain. Please follow-up with your primary care doctor in the next 2 to 3 days for further evaluation management. Please return to the ED for any new or worsening symptoms. DIAGNOSIS: Abdominal pain, acute; Headache; N&V (nausea and vomiting)[facility] CenterED Patient Education Noteon [id number] Patient Education Note Gastroenterology Nausea and Vomiting, [...] ? Low-calorie sports drinks. ? Eat bland, yufg-uc-akglrn foods in small amounts as you are able, such as: ? Bananas. ? Applesauce. ? Rice. ? Low-fat (lean) meats. ? Lehr. ? Crackers. ? Avoid drinking fluids that have a lot of sugar or caffeine in them. This includes energy drinks, sports drinks, and soda. ? Avoid alcohol. ? Avoid spicy or fatty foods. General instructions ? Take ixsf-suw-sgopskx and prescription medicines only as told by your doctor. ? Drink enough fluid to keep your pee (urine) pale yellow. ? Wash your hands often with soap and water for at least 20 seconds. If you cannot use soap and water, use hand sweatband maker. ? Make sure that everyone in your [...] doctor about eating and drinking. ? Take cztp-sug-dubpmnb and prescription medicines only as told by your doctor. ? Contact your doctor if your symptoms get worse or you have new symptoms. ? Keep all follow-up visits. This information is not intended to replace advice given to you by your health care provider. Make sure you discuss any questions you have with your health care provider. Document Revised: 09/26/2021 Document Reviewed: 09/26/2021 [employer] Patient Education ? 2022 [employer] Abdominal Pain, Adult Many things can cause belly (abdominal) pain. Most times, belly pain is not dangerous. Many cases of belly pain can be watched and treated at home. Sometimes, though, belly pain is serious. Your doctor will try to find the cause of your belly pain. Follow these instructions at home: Medicines ? Take ijko-nqo-lnjggzj and prescription medicines only as told by [...] not hungry, or y (more content not included)...[facility] Patient Summaryon [id number] Patient Summary [address] [address] Patient Discharge Instructions Person Information Name: SOCORRO JOSEPH Age: 22 Years Arrival Date: 06/29/2023 19:10:29 Discharge Diagnosis: Abdominal pain, acute; Headache; N&V (nausea and vomiting) Primary Care Physician: Raquel Nolan MD Provider Information Primary Provider: Amberly Whitehead DO [employer] Specialist:None The exam and treatment you received in the Emergency Department were for an urgent problem and are not intended as complete care. It is important that you follow up with a doctor, nurse practitioner,or physician?s shipping assistant for ongoing care. If your symptoms become worse or you do not improve as expected and you are unable to reach your usual health care provider, you should return to the Emergency Department. We are available 24 hours a day. SOCORRO JOSEPH Hemalatha has been given the following list of patient education materials, prescriptions and follow-up instructions: Follow-up Instructions: With: Address: When: Raquel Nolan [place] [address] Business (1) In 3 days [...] Patient Education Materials: Nausea and Vomiting, Adult, Meop-zs-Jbpy; General Headache Without Cause, Cyft-om-Ixfc; Abdominal Pain, Adult, Avew-vi-Zckh A MESSAGE TO ALL PATIENTS REGARDING OPIOIDS PRESCRIPTION OPIOIDS: WHAT YOU NEED TO KNOW Prescription opioids can be used to help relieve ycjilpji-ek-blkoxa pain and are often prescribed following a [...] your community drug take- back program or your[employer] mail-back program, or flush them down the toilet, follow (more content not included)...[facility] Prescriptions/Work Noteson 60-11-0100Ffrxeekvqsxzc/Work Notes [id number]#1.00TIFPremier Health Upper Valley Medical CenterRAD - Preliminary Cat Scan Reporton [id number] - Preliminary Cat Scan [id number]#1.00TIFPremier Health Upper Valley Medical CenterB hCG Qualon 78-89-6680Acoo HCG ( test) QlNegativeNormal [facility] TroyComment on above:Performed By: #### 9110527, 02598694, 1625329, 5547832, 10539072, 8356973 ####[facility] [address] [place], [place] [address]WVYqv 45-44-9210Wxgif gap [Moles/Vol] 9 mmol/LNormal6-16[facility] TroyComment on above:Performed By: #### 2186438, 18425663, 3174317, 8396442, 07362683, 8677422 ####[facility] [address] [place], [place] [address]Efhitch [Mass/Vol]9.0 mg/dL Normal8.9-11.1FCleveland Clinic Euclid HospitalComment on above:Performed By: #### 8113853, 70220684, 5094310, 0749313, 71576826, 5442436 ####[facility] [address] [place], [place] [address]Wrasazcs [Moles/Vol]104 mmol/L Ubcrsf935-171HekjjzKettering Health TroyComment on above:Performed By: #### 9241580, 68676949, 2064321, 6366303, 82834613, 6941344 ####[address] [address]MI0 [Moles/Vol]27 mmol/LNormal 21-31[facility] TroyComment on above:Performed By: #### 2745239, 66082880, 7224498, 2131128, 61491209, 0366430 ####[address] [address]Rkfjtjoajh [Mass/Vol]0.7 mg/dLNormal 0.5-1.3FCleveland Clinic Euclid HospitalComment on above:Performed By: #### 4523170, 48716270, 3697126, 6040146, 14105725, 3123302 ####[address] [address]Ytxsiua [Mass/Vol]93 mg/dLNormal 55-199K[facility] Health TroyComment on above:Performed By: #### 9771733, 31025239, 9213693, 0504693, 99928495, 8348169 ####[address] [address]Dzsdfjkar [Moles/Vol]3.7 mmol/LNormal 3.5-5.3FCleveland Clinic Euclid HospitalComment on above:Performed By: #### 7342558, 09860302, 8434090, 9817414, 23125154, 8673548 ####[address] [place], [place] [address]Xnrtgh [Moles/Vol]136 mmol/LNormal 135-145K[facility] Health TroyComment on above:Performed By: #### 7938429, 12201108, 0767235, 9436031, 01588978, 5006227 ####[facility] [address] [place], [place] [address]Ulbn nitrogen [Mass/Vol]13 mg/dL Normal5-21[facility] TroyComment on above:Performed By: #### 1636584, 18901845, 2300926, 6836277, 95110938, 5995941 ####[facility] [address] [place], [place] [address]Vmvo nitrogen/Creatinine [Mass ratio]19 No PtepnYlrlti09-35VuhuenKettering Health TroyComment on above: Performed By: #### 1842873, 30677137, 2951874, 0642747, 40394419, 9439654 ####[facility] [address] [place], [place] [address]VHG w/ Auto Diffon 98-67-2226Kheuqpwzi/100 WBC (Bld)0.3 %Normal0.0-2.0[facility] TroyComment on above:Order Comment: Per fidel Salter, wait to poke until they try for an IV. pwn311 06/29/2023 21:16:35 EDTPerformed By: #### 5495444, 09298257, 4823238, 0266117, 28607347, 8788467 ####[facility] [address] [place] [address]Wfozptexv/Leukocytes Auto (Bld) [Pure # fraction]0.0 E9/LNormal0.0-0.2FCleveland Clinic Euclid HospitalComment on above: Order Comment: Per fidel Salter, wait to poke until they try for an IV. wgh928 06/29/2023 21:16:35 EDTPerformed By: #### 2139976, 45202072, 4323476, 1603277, 36575574, 9976313 ####[facility] [address]axom[address] [place], [place] [address]Nykjmjngfsi (Bld) [#/Vol]0.1 E9/LNormal0.0-0.5FCleveland Clinic Euclid HospitalComment on above:Order Comment: Per fidel Salter, wait to poke until they try for an IV. avt831 06/29/2023 21:16:35 EDTPerformed By: #### 7618630, 08227477, 2507981, 0234567, 38452294, 4558044 ####[facility] [address] [place], [place] [address]Nqqlhecectf/100 WBC (Bld)1.2 %Normal 0.0-8.0[facility] TroyComment on above:Order Comment: Per fidel Salter, wait to poke until they try for an IV. pzl957 06/29/2023 21:16:35 EDT Performed By: #### 6653184, 02602987, 2270927, 9783867, 81138369, 3434920 ####[facility] [address] [place] [address] Erythrocyte distribution width (RBC) [Ratio]13.1 %Nliwus52.9-14.2FCleveland Clinic Euclid HospitalComment on above:Order Comment: Per fidel Salter, wait to poke until they try for an IV. ebb113 06/29/2023 21:16:35 EDTPerformed By: #### 9943933, 09236837, 4649972, 8975671, 27337553, 6450676 ####[place] [address] [place], [place] [address]Irqnrlkxcp (Bld) [Volume fraction] 39.6 %Ckzvku99.0-46.0[facility] TroyComment on above:Order Comment: Per fidel Salter, wait to poke until they try for an IV. jlu633 06/29/2023 21:16:35 EDTPerformed By: #### 3793568, 44046975, 1999734, 3495193, 18625945, 0522140 ####[facility] [address] [place] [address] Hemoglobin (Bld) [Mass/Vol]13.2 g/jNWzcdcq95.0-16.0[facility] Comment on above:Order Comment: Per fidel Salter, wait to poke until they try for an IV. hhq733 06/29/2023 21:16:35 EDTPerformed By: #### 8369727, 74451977, 1619736, 8973077, 80890125, 6243273 ####[facility] [address] [place], [place] [address]Iisojvsdaxt (Bld) [#/Vol]2.0 E9/L Normal1.0-4.0[facility] TroyComment on above:Order Comment: Per fidel Salter, wait to poke until they try for an IV. wls266 06/29/2023 21:16:35 EDT Performed By: #### 5484861, 90573339, 0527947, 4112447, 48221486, 2501130 ####[facility] [address] [place] [address] Lymphocytes/100 WBC (Bld)22.0 %Qxtlye12.0-50.0[facility] TroyComment on above:Order Comment: Per fidel Salter, wait to poke until they try for an IV. tvu643 06/29/2023 21:16:35 EDTPerformed By: #### 8630859, 26869278, 0231356, 0289829, 26378458, 1722155 ####[facility] [address] [place], [place] [address]EHU (RBC) [Entitic mass]30.7 ehYjojjl14.0-34.0 [facility] TroyComment on above:Order Comment: Per fidel Salter, wait to poke until they try for an IV. akn108 06/29/2023 21:16:35 EDTPerformed By: #### 4549660, 54630947, 4202949, 3826248, 77813494, 6070800 ####[place] [address] [place], [place] [address]IWGN (RBC) [Mass/Vol] 33.3 g/xBNtfzfa42.4-36.0[facility] TroyComment on above:Order Comment: Per fidel Salter, wait to poke until they try for an IV. adj140 06/29/2023 21:16:35 EDTPerformed By: #### 4087414, 33680485, 0385904, 1511947, 27716554, 0181196 ####[facility] [address] [place], [place] [address]AEB (RBC) [Entitic vol]91.9 oYIkwytc07.0-100.0[facility] Comment on above:Order Comment: Per fidel Salter, wait to poke until they try for an IV. ncq236 06/29/2023 21:16:35 EDTPerformed By: #### 1225448, 81616322, 5057022, 7309853, 32800971, 9357245 ####[facility] [address] [place], [place] [address]Ypgchoyps (Bld) [#/Vol]0.4 E9/LNormal 0.2-1.0[facility] TroyComment on above:Order Comment: Per fidel Salter, wait to poke until they try for an IV. yzk809 06/29/2023 21:16:35 EDT Performed By: #### 2502491, 77100862, 2771976, 3204061, 03920270, 2651324 ####[facility] [address] [place] [address] Neutrophils (Bld) [#/Vol]6.5 E9/LNormal2.0-7.5FCleveland Clinic Euclid HospitalComment on above:Order Comment: Per fidel Salter wait to poke until they try for an IV. rmh481 06/29/2023 21:16:35 EDTPerformed By: #### 1375299, 58792130, 7179810, 1808620, 38384615, 5814823 ####[facility] [facility] [address] [place], [place] [address]Pidofrfxoju/100 WBC (Bld)71.9 %Szdata62.0-75.0 [facility] TroyComment on above:Order Comment: Per fidel Salter, wait to poke until they try for an IV. zho994 06/29/2023 21:16:35 EDTPerformed By: #### 9154180, 23870464, 4097965, 4814118, 25229095, 3372062 ####[facility] [facility] [address] [place], [place] [address]Vgwdlqty333.0 E9/L Xpjhuc554.0-500.0[facility] TroyComment on above:Order Comment: Per fidel Salter, wait to poke until they try for an IV. fkl201 06/29/2023 21:16:35 EDT Performed By: #### 0890489, 64280788, 8759373, 0112761, 62625068, 4831522 ####[facility] [address] [place] [address] Platelet mean volume (Bld) [Entitic vol]8.2 fLNormal6.4-10.8[facility] TroyComment on above:Order Comment: Per fidel Salter wait to poke until they try for an IV. del620 06/29/2023 21:16:35 EDTPerformed By: #### 7228922, 16459437, 7366259, 1125517, 80410069, 8236165 ####[facility] [address] [place], [place] [address]INJ (Bld) [#/Vol]4.3 E12/LNormal 4.3-5.9[facility] TroyComment on above:Order Comment: Per fidel Salter wait to poke until they try for an IV. zxt653 06/29/2023 21:16:35 EDT Performed By: #### 2793561, 42838617, 7061249, 4424310, 01766445, 2033764 ####[facility] [address] [place], [place] [address]SJH corrected for nucl RBC Auto (Bld) [#/Vol]9.0 E9/LNormal4.0-11.0[facility] TroyComment on above:Order Comment: Per fidel Salter wait to poke until they try for an IV. tpz508 06/29/2023 21:16:35 EDTPerformed By: #### 5330888, 77544981, 2103503, 0129582, 76923925, 0072852 ####[facility] [facility] [address] [place], [place] [address]LDMUGDEYVZdfsfac By: SYSTEM SYSTEM on 44-99-1593Mvwmrqe [Mass/Vol]4.3 g/dLNormal3.3 - 5.0 gm/dLRemisol Chem Albumin/Globulin [Mass ratio]2.0 {ratio}Normal1.1 - 2.2Remisol ChemALP [Catalytic activity/Vol]70 [iU]/sDhlkbt99 - 98 Int._Unit/LRemisol ChemALT No additional P-5'-P [Catalytic activity/Vol]29 [iU]/dNormal6 - 46 Int._Unit/L Remisol ChemAnion gap [Moles/Vol]9 mmol/LNormal6 - 16 mEq/LRemisol ChemAST [Catalytic activity/Vol]17 [iU]/dNormal5 - 43 Int._Unit/LRemisol ChemBilirubin [Mass/Vol]0.9 mg/dLNormal0.0 - 1.1 mg/dLRemisol ChemBilirubin.direct [Mass/Vol] 0.1 mg/dLNormal0.0 - 0.4 mg/dLRemisol ChemBilirubin.indirect [Mass or moles/Vol] 0.8 mg/dLNormal0.1 - 0.9 mg/dLRemisol ChemCalcium [Mass/Vol]9.0 mg/dLNormal8.9 - 11.1 mg/dLRemisol ChemChloride [Moles/Vol]104 mmol/MQbhyez283 - 111 mmol/L Remisol ChemCO2 [Moles/Vol]27 mmol/OCxcmpg62 - 31 mmol/LRemisol ChemCreatinine [Mass/Vol]0.7 mg/dLNormal0.5 - 1.3 mg/dLRemisol XtlsdVAU608 mL/min/1.73 j3Rnrqme >=59mL/min/1.73 v3Zdjalfj ChemGlobulin (S) [Mass/Vol]2.1 g/dLNormal1.4 - 4.0 gm/dLRemisol ChemGlucose [Mass/Vol]93 mg/jNNysglz62 - 199 mg/dLRemisol Chem Lipase [Catalytic activity/Vol]unit/LLow13 - 58 unit/LRemisol ChemPotassium [Moles/Vol]3.7 mmol/LNormal3.5 - 5.3 mmol/LRemisol ChemProtein [Mass/Vol]6.4 g/dLNormal6.0 - 7.8 gm/dLRemisol ChemSodium [Moles/Vol]136 mmol/ATsgktq243 - 145 mmol/LRemisol ChemUrea nitrogen [Mass/Vol]13 mg/dLNormal5 - 21 mg/dLRemisol ChemUrea nitrogen/Creatinine [Mass ratio]19 mg/qhLvpjlh59 - 20Remisol Chem Consent for Treatmenton 09-32-3305Hlgkgye for Treatment [id number]#1.00TIFFNormalFisher Roosevelt Medical CenterED Note-Physicianon 33-50-7098NY Note-PhysicianBasic Information Time Seen: Amberly Whitehead DO Néstor [...] and Complexity of Problems Differential Diagnosis: [] [facility] Data External documents reviewed: [] My [...] day(s), # 9 tab(s), Refills(s) 0, [facility], cm, 06/29/23 19:28:00 EDT, Height/Length Dosing, 82, kg, 06/29/23 19:28:00 EDT, Weight Dosing metoclopramide, 10 mg = 2 mL, Injection, IV Push, Once, Stop date 06/29/23 21:00:00 EDT, STAT, Start date 06/29/23 21:00:00 EDT, 06/29/23 21:00:00 EDT naproxen, 500 mg = 1 tab(s), Oral, BID, PRN for pain, # 20 tab(s), Refills(s) 0, [facility], [facility], cm, 06/29/23 19:28:00 EDT, Height/Length Dosing, 82, kg, 06/29/23 19:28:00 EDT, Weight Dosing ondansetron, 4 mg = 1 tab(s), Oral, q8hr, # 12 tab(s), Refills(s) 0, [facility], cm, 06/29/23 19:28:00 EDT, [...] UA with Cult Rfl (more content not included)...[facility] Comment on above:Result Comment: Electronically Signed By: Amberly Whitehead DO\.br\Date and Time Signed: 06/29/23 23:56 EDTHEMATOLOGYOrdered By: SYSTEM SYSTEM on 80-16-5782Bfovabric/100 WBC (Bld)0.3 %Normal0.0 - 2.0 %Remisol Heme Basophils/Leukocytes Auto (Bld) [Pure # fraction]0.0 E9/LNormal0.0 - 0.2 E9/L Remisol HemeEosinophils (Bld) [#/Vol]0.1 E9/LNormal0.0 - 0.5 E9/LRemisol Heme Eosinophils/100 WBC (Bld)1.2 %Normal0.0 - 8.0 %Remisol HemeErythrocyte distribution width (RBC) [Ratio]13.1 %Ottfut32.9 - 14.2 %Remisol HemeHematocrit (Bld) [Volume fraction]39.6 %Lmbcau60.0 - 46.0 %Remisol HemeHemoglobin (Bld) [Mass/Vol]13.2 g/aSRedyht53.0 - 16.0 gm/dLRemisol HemeLymphocytes (Bld) [#/Vol] 2.0 E9/LNormal1.0 - 4.0 E9/LRemisol HemeLymphocytes/100 WBC (Bld)22.0 %Normal 14.0 - 50.0 %Remisol HemeMCH (RBC) [Entitic mass]30.7 cjXujtnc80.0 - 34.0 pg Remisol HemeMCHC (RBC) [Mass/Vol]33.3 g/uDQwobhc91.4 - 36.0 gm/dLRemisol HemeMCV (RBC) [Entitic vol]91.9 cSFusnwd74.0 - 100.0 fLRemisol HemeMonocytes (Bld) [#/Vol]0.4 E9/LNormal0.2 - 1.0 E9/LRemisol HemeMonocytes/100 WBC (Bld)4.6 % Normal4.0 - 14.0 %Remisol HemeNeutrophils (Bld) [#/Vol]6.5 E9/LNormal2.0 - 7.5 E9/LRemisol HemeNeutrophils/100 WBC (Bld)71.9 %Gxbuug44.0 - 75.0 %Remisol Heme Iuonbkef098.0 E9/ZTjinpu941.0 - 500.0 E9/LRemisol HemePlatelet mean volume (Bld) [Entitic vol]8.2 fLNormal6.4 - 10.8 fLRemisol HemeRBC (Bld) [#/Vol]4.3 E12/L Normal4.3 - 5.9 E12/LRemisol HemeWBC corrected for nucl RBC Auto (Bld) [#/Vol] 9.0 E9/LNormal4.0 - 11.0 E9/LRemisol HemeHep Func Panelon 29-71-0435Lgantjz [Mass/Vol]4.3 g/dLNormal3.3-5.0[facility] TroyComment on above: Performed By: #### 7919209, 82521998, 9663424, 3197906, 08312936, 7732608 ####[facility] [address] [place] [address] Albumin/Globulin (S) [Mass conc ratio]2.6Zzhenz3.1-2.2Fisher [facility] Orthopaedic InstituteComment on above:Performed By: #### 3047052, 69991258, 0413088, 7769145, 13985151, 5467406 ####[facility] [address] [place], [place] [address]GZD [Catalytic activity/Vol]70 Int._Unit/UBecqnb85-00GzahbtKettering Health TroyComment on above:Performed By: #### 3912533, 46526362, 6412514, 6115002, 68075359, 2749347 ####[address] [address]NZR No additional P-5'-P [Catalytic activity/Vol]29 Int._Unit/LNormal6-46[facility] TroyComment on above:Performed By: #### 9123282, 30639862, 3892331, 1150877, 18505166, 3615669 ####[address] [address]YNQ [Catalytic activity/Vol]17 Int._Unit/LNormal5-43[facility] Comment on above:Performed By: #### 1584988, 25910029, 0900096, 7121760, 63461390, 8959738 ####[address] [address]Jbaiqdymr [Mass/Vol]0.9 mg/dLNormal0.0-1.1FCleveland Clinic Euclid HospitalComment on above:Performed By: #### 0630146, 28466229, 2263324, 8381885, 41676568, 1490066 ####[address] [address]Ktsaxtorq.direct [Mass/Vol]0.1 mg/dLNormal0.0-0.4 [facility] TroyComment on above:Performed By: #### 7604936, 81664961, 9102814, 7002470, 31145945, 5789459 ####[address] [address]Wgsoyuanv.indirect [Mass or moles/Vol]0.8 mg/dLNormal0.1-0.9[facility] TroyComment on above: Performed By: #### 0329413, 22716493, 3550547, 4242082, 67614819, 8432028 ####[address] [address] Globulin (S) [Mass/Vol]2.1 g/dLNormal1.4-4.0[facility] TroyComment on above:Performed By: #### 6824391, 20939471, 1728258, 6091264, 12042687, 9333750 ####[facility] [address] [place], [place] [address]Flhzzpi [Mass/Vol]6.4 g/dLNormal6.0-7.8[facility] TroyComment on above:Performed By: #### 4777655, 87617508, 9397036, 1082766, 67120277, 6392042 ####[address] [address]Fbavld Levelon 28-36-3071Gxhwwx [Catalytic activity/Vol]U/QXwp92-61QqtoksKettering Health TroyComment on above:Performed By: #### 5233891, 72451783, 2014743, 0848274, 02123359, 7266369 ####[facility] [address] [place] [address]VFAJTVSBRilppdl By: Linh Wright on 22-89-8946Ghsa HCG ( test) QlNegative (06/29/23 9:29 PM)NormalOKLAHOMA CITY VETERANS [facility]IST[facility] [place] Man SeroUA with Cult Rflxon 39-54-5257Dzxqq (U) Light-YellowNormalYellowKettering Health TroyComment on above:Result Comment: Microscopic readings are only performed on those samples that meet specific criteria set forth by [facility].Performed By: #### [id number] ####[facility] [address]tm[address] [facility], [place]Rghbvjv (U) [Mass/Vol]NegativeNormalNegativeKettering Health TroyComment on above:Performed By: #### [id number] ####[facility] Fcacrocz[address] [facility], RQ[address]Lipxjyz Ql (U)Negative NormalNegativeKettering Health TroyComment on above:Performed By: #### [id number] ####[address], [place] [address]VM BloodNegativeNormalNegativeKettering Health TroyComment on above: Performed By: #### [id number] ####[address], [id number] BacteriaTraceNormalTraceKettering Health TroyComment on above:Performed By: #### [id number] ####[address], [id number] ClarityTurbidAbnormalClear [facility] TroyComment on above:Performed By: #### [id number] ####[address], EG[address]YU Leuk EstNegativeNormalNegativeKettering Health TroyComment on above: Performed By: #### [id number] ####[address], [id number] MucousTraceNormalNegativeKettering Health TroyComment on above:Performed By: #### [id number] ####[address], [id number] NitriteNegativeNormal NegativeKettering Health TroyComment on above:Performed By: #### [id number] ####[address], [place] [address]LZ pH5.5Invalid Interpretation Code5.0-9.0[facility] Comment on above:Performed By: #### [id number] ####[address], [id number] ProteinNegativeNormalNegativeKettering Health TroyComment on above:Performed By: #### [id number] ####[address], [id number] RBC0-3Normal 0-3Fisher [facility] Orthopaedic InstituteComment on above:Performed By: #### [id number] ####[facility] [address] AveNorlong island community hospitalk, [place]GI Spec Grav1.017Invalid Interpretation Code1.005-1.030[facility] Comment on above:Performed By: #### [id number] ####[facility] [address] Ave[place], [id number] Squam Epithelial>78Ebusttye3-1 [facility] TroyComment on above:Performed By: #### [id number] ####[facility] [address] AveNgaylord hospital, [id number] UrobilinogenNegativeNormalNegativeKettering Health TroyComment on above: Performed By: #### [id number] ####[address] AveNgaylord hospital, [id number] (U) [Mass/Vol]NegativeNormalNegative [facility] TroyComment on above:Performed By: #### [id number] ####[facility] [address]ybfyqu[address] [facility], NG[address]WU Spec DescClean CatchNormalKettering Health TroyComment on above:Performed By: #### [id number] ####[facility] [address] [employer] Solutionsgaylord hospital, [place]ZLLGTCTKSPDljxylo By: SYSTEM SYSTEM on 79-41-9100Psqfk (U) Light-Yellow 1 (06/29/23 9:34 PM)NormalYellowOKLAHOMA CITY VETERANS [facility]IST[facility] [place] UA Auto SSComment on above:Interpretive Data: Microscopic readings are only performed on those samples that meet specific criteria set forth by [facility].Glucose (U) [Mass/Vol]NegativeNormalNegativemg/dLFT UA Auto SSKetones Ql (U)NegativeNormal Negativemg/dLFT UA Auto SSUA BacteriaTrace graded/HPFNormalTracegraded/HPFFTMC UA Auto SSUA BloodNegativeNormalNegativemg/dLFT UA Auto SSUA ClarityTurbid *ABN* (06/29/23 9:34 PM)Invalid Interpretation CodeClearFTMC UA Auto SSUA Leuk Est NegativeNormalNegativeLeu/uLFT UA Auto SSUA MucousTrace graded/LPFNormal Negativegraded/LPFFTMC UA Auto SSUA NitriteNegativeNormalNegativemg/dLOKLAHOMA CITY [facility] [place] UA Auto SSUA pH5.5 *NA* (06/29/23 9:34 PM)Invalid Interpretation Code5.0 - 9.0[facility] [place] UA Auto SSUA Protein NegativeNormalNegativemg/dLOKLAH[facility] [place] UA Auto SSUA RBC0-3 graded/HPFNormal 0-3graded/HPFOKLAHOMA CITY VETER[facility] [place] UA Auto SSUA Spec Grav1.017 *NA* (06/29/23 9:34 PM)Invalid Interpretation Code1.005 - 1.030[facility] [place] UA Auto SSUA Squam Epithelial>10 graded/HPFInvalid Interpretation Code0-2graded/HPFOKLAHOMA CITY VETER[facility] [place] UA Auto SS UA UrobilinogenNegativeNormalNegativemg/dLOKLAHOMA [facility] [place] UA Auto SSUrobilinogen (U) [Mass/Vol]NegativeNormalNegativemg/dLOKLAH[facility] [place] UA Auto SSURINALYSISOrdered By: Amberly Whitehead on 64-30-2332UE Spec DescClean Catch (06/29/23 9:34 PM)NormalOKLAHOMA CITY [facility]ET[facility] [place] UA Auto SS eGFRon 33-70-6551lVYL967 mL/min/1.73 w4Pvkupg>=59K[facility] Health TroyComment on above:Order Comment: Order added by Discern Expert.Performed By: #### 3884841, 33971100, 1466702, 2148132, 39675278, 7617127 ####[facility] [address] [place], [place] [address]Rghj Diffon 06-04-6239Qhbpeavnr/100 WBC (Bld)0.6 %Normal0.0-2.0[facility] TroyComment on above:Order Comment: Order Added by Discern Expert.Performed By: #### 02418976, 3999352, 6972160, 0575658, 7522493, 24253543, 0002085 ####[facility] [address] [place] [address] Basophils/Leukocytes Auto (Bld) [Pure # fraction]0.0 E9/LNormal0.0-0.2FCleveland Clinic Euclid HospitalComment on above:Order Comment: Order Added by Discern Expert.Performed By: #### 94338884, 3655314, 6928475, 5919639, 1782980, 58284775, 5231978 ####[address] [address]Zikyxvptsie/100 WBC (Bld)0.8 %Normal0.0-8.0[facility] TroyComment on above:Order Comment: Order Added by Discern Expert. Performed By: #### 38967407, 4213235, 6050563, 6193152, 8856735, 54002656, 6832591 ####[address] [address]Msghzsujemk/Leukocytes Auto (Bld) [Pure # fraction]0.1 E9/LNormal0.0-0.5 [facility] TroyComment on above:Order Comment: Order Added by Discern Expert.Performed By: #### 24106781, 1185545, 6655593, 4096119, 4752148, 78453397, 3886804 ####[address] [address]Rdbdrdrlcct/100 WBC (Bld)27.0 %Pgsryx07.0-50.0[facility] TroyComment on above:Order Comment: Order Added by Discern Expert. Performed By: #### 21202873, 4068076, 5009990, 2134925, 5981457, 91162963, 4497934 ####[address] [address]Nsbibygomne/Leukocytes Auto (Bld) [Pure # fraction]1.8 E9/LNormal1.0-4.0 [facility] TroyComment on above:Order Comment: Order Added by Discern Expert.Performed By: #### 55895436, 9518267, 3757442, 9672229, 2578846, 99730777, 9466165 ####[address] [address]Bkquyialk/100 WBC (Bld)7.8 %Normal4.0-14.0[facility] TroyComment on above:Order Comment: Order Added by Discern Expert. Performed By: #### 07863869, 8090281, 1568639, 1623205, 8577660, 71823976, 7900397 ####[address] [address]Bpadiqvsk/Leukocytes Auto (Bld) [Pure # fraction]0.5 E9/LNormal0.2-1.0 [facility] TroyComment on above:Order Comment: Order Added by Discern Expert.Performed By: #### 98083350, 1161498, 8205271, 3709261, 0054334, 36972350, 5934005 ####[address] [address]Rlvfezichrz/100 WBC (Bld)63.8 %Ycbqly06.0-75.0[facility] TroyComment on above:Order Comment: Order Added by Discern Expert. Performed By: #### 02479741, 2491190, 1962611, 6398527, 2644601, 22906717, 9783447 ####[address] [address]Ylwlhlqxwqy/Leukocytes Auto (Bld) [Pure # fraction]4.3 E9/LNormal2.0-7.5 [facility] TroyComment on above:Order Comment: Order Added by Discern Expert.Performed By: #### 66549990, 3967294, 5497877, 3925909, 1544413, 86065407, 7341168 ####[address] [place], [place] [address]QPTna 29-60-3292Yftjgayjht [Mass/Vol]0.6 mg/dLNormal0.5-1.3 [facility] TroyComment on above:Performed By: #### 69476745, 2619158, 1714495, 6868053, 0662647, 84652744, 5483838 ####[facility] [address] [place], [place] [address]Waub nitrogen [Mass/Vol]19 mg/dLNormal5-21[facility] TroyComment on above:Performed By: #### 14823166, 6847322, 9793874, 6731159, 8767564, 66278331, 8945318 ####[facility] [address] [place], [place] [address]Zuzh nitrogen/Creatinine [Mass ratio]32 No LrsclNwfm16-08LwelxuKettering Health Troy Comment on above:Performed By: #### 16568198, 3039501, 1161671, 7276905, 6950353, 97986185, 2202384 ####[address] [address]Udsts gap [Moles/Vol]8 mmol/LNormal6-16[facility] TroyComment on above:Performed By: #### 82288925, 1748935, 0505901, 8644211, 7422094, 02892022, 3552980 ####[address] [place], [place] [address]Qiadyhh [Mass/Vol]8.5 mg/dLLow8.9-11.1Fisher [facility] Orthopaedic InstituteComment on above:Performed By: #### 25272053, 1198358, 6899319, 1349671, 7312122, 78054845, 8183597 ####[facility] [address] [place], [place] [address]Nfxvomju [Moles/Vol]107 mmol/SSjbnei077-349CagapaKettering Health TroyComment on above:Performed By: #### 61861848, 6842963, 1900659, 6985138, 2853283, 31633134, 0751211 ####[facility] [address] [place], [place] [address]QI7 [Moles/Vol]25 mmol/ECjuyaj03-71XzeoukKettering Health TroyComment on above:Performed By: #### 94620689, 6558350, 1415238, 0791293, 4774327, 79195775, 0618716 ####[facility] [address] [place], [place] [address]Ogfmxfm [Mass/Vol]93 mg/dRNvckbt12-255WajxsvKettering Health TroyComment on above:Result Comment: If this glucose result represents a fasting glucose, interpretation should refer tothe following reference range: 55-99 mg/dLPerformed By: #### 76398802, 2459729, 8291549, 4556483, 6772328, 45053799, 3799511 ####[address] [place], [place] [address]Rwpbqdyhc [Moles/Vol]3.4 mmol/LLow3.5-5.3FCleveland Clinic Euclid HospitalComment on above:Performed By: #### 79074572, 6497658, 0215098, 4181862, 5704642, 71590588, 7481566 ####[address] [address]Zgvyvc [Moles/Vol]137 mmol/LNormal 135-145[facility] TroyComment on above:Performed By: #### 47166257, 0430789, 8365832, 7151883, 0380061, 05888316, 3216022 ####[address] [address]RQK w/ Auto Diffon 02-16-2023 Erythrocyte distribution width (RBC) [Ratio]13.0 %Nkjmdl06.9-14.2FCleveland Clinic Euclid HospitalComment on above:Performed By: #### 73387767, 1220107, 5325845, 8589574, 8771177, 61646541, 3201702 ####[address] [address]Dfoajmvpak (Bld) [Volume fraction]41.4 %Normal 34.0-46.0[facility] TroyComment on above:Performed By: #### 02900324, 5387990, 1914605, 0313015, 4963649, 87382875, 1216111 ####[address] [address]Qagpoqmacs (Bld) [Mass/Vol]13.9 g/iCHxvzaq06.0-16.0[facility] TroyComment on above: Performed By: #### 69335190, 9230822, 0483060, 2676520, 2889980, 04640663, 4832326 ####[address] [address]DQZ (RBC) [Entitic mass]31.0 eaJmvsys43.0-34.0[facility] Comment on above:Performed By: #### 82909778, 3585050, 6711904, 3327604, 8873357, 54702729, 9348387 ####[address] [address]RKWZ (RBC) [Mass/Vol]33.6 g/nKDwutxg94.4-36.0[facility] TroyComment on above:Performed By: #### 52432229, 0773833, 2495518, 3987259, 5542860, 33424143, 7836494 ####[address] [address]IGA (RBC) [Entitic vol]92.3 mRZznpfk90.0-100.0 [facility] TroyComment on above:Performed By: #### 48440294, 1426899, 3999932, 6995328, 6051723, 55350399, 9605741 ####[address] [address]Dhrpqfkd mean volume (Bld) [Entitic vol]9.7 fLNormal6.4-10.8[facility] TroyComment on above: Performed By: #### 02734697, 7368341, 4937723, 4857010, 5300560, 67231396, 5356266 ####[place] [address] [place], [place] [address]Nbhcikgrs (Bld) [#/Vol]254.0 E9/LGrkoig234.0-500.0[facility] TroyComment on above:Performed By: #### 70740553, 4447940, 5707828, 8305611, 9748863, 63437392, 0051170 ####[address] [address]UZS (Bld) [#/Vol]4.5 E12/LNormal4.3-5.9[facility] TroyComment on above:Performed By: #### 40412466, 0735164, 7351240, 0831985, 1622958, 91438042, 7027164 ####[facility] [address] [address]WLJ corrected for nucl RBC Auto (Bld) [#/Vol]6.7 E9/LNormal 4.0-11.0[facility] TroyComment on above:Performed By: #### 06719198, 9616180, 6983133, 2432995, 5396865, 22088068, 8656724 ####[address] [address]ZFNMBDFJVHrmpcer By: SYSTEM SYSTEM on 02-85-2523Rtejhqz [Mass/Vol]3.9 g/dLNormal3.3 - 5.0 gm/dLFTMC Remisol Albumin/Globulin [Mass ratio]1.4 {ratio}Normal1.1 - 2.2[facility] RemisolALP [Catalytic activity/Vol]86 [iU]/rBhgsrt11 - 98 Int._Unit/LFTMC RemisolALT No additional P-5'-P [Catalytic activity/Vol]18 [iU]/dNormal6 - 46 Int._Unit/LFTMC RemisolAnion gap [Moles/Vol]8 mmol/LNormal6 - 16 mEq/LFTMC RemisolAST [Catalytic activity/Vol]14 [iU]/dNormal5 - 43 Int._Unit/LFTMC RemisolBilirubin [Mass/Vol] 1.0 mg/dLNormal0.0 - 1.1 mg/dLFT RemisolBilirubin.direct [Mass/Vol]0.2 mg/dL Normal0.1 - 0.4 mg/dLFT RemisolBilirubin.indirect [Mass or moles/Vol]0.8 mg/dL Normal0.1 - 0.9 mg/dLFT RemisolCalcium [Mass/Vol]8.5 mg/dLLow8.9 - 11.1 mg/dL [facility] [place] RemisolChloride [Moles/Vol]107 mmol/DTosuko302 - 111 mmol/LFTMC RemisolCO2 [Moles/Vol]25 mmol/UQrqprz95 - 31 mmol/LFTMC RemisolCreatinine [Mass/Vol]0.6 mg/dLNormal0.5 - 1.3 mg/dLFTMC RemisolGFR/1.73 sq M.predicted among non-blacks MDRD (S/P/Bld) [Vol rate/Area]128 mL/min/1.73 d9Zpkvry>=59mL/min/1.73 m2[facility] [place] Chem SComment on above:Interpretive Data: Chronic kidney disease could be indicated at eGFR's of less than 60 mL/min/1.73m2. Kidney failure is indicated at less than 15 mL/min/1.73m2.Globulin (S) [Mass/Vol]2.8 g/dLNormal1.4 - 4.0 gm/dLFT RemisolGlucose [Mass/Vol]93 mg/vEZhzscl42 - 199 mg/dLFTMC Remisol Comment on above:Interpretive Data: If this glucose result represents a fasting glucose, interpretation should referto the following reference range: 55-99 mg/dLLipase [Catalytic activity/Vol]22 U/OGmdzdu14 - 58 unit/LFTMC Remisol Potassium [Moles/Vol]3.4 mmol/LLow3.5 - 5.3 mmol/LFTMC RemisolProtein [Mass/Vol] 6.7 g/dLNormal6.0 - 7.8 gm/dLFT RemisolSodium [Moles/Vol]137 mmol/RNyxcff443 - 145 mmol/LFTMC RemisolTroponin I.cardiac [Mass/Vol]pg/mLLow10.10 - 27.10 pg/mL [facility] RemisolComment on above:Interpretive Data: The 95% CI (Confidence Interval) PPV (Positive Predictive Value) for myocardial infarction in females is 38 pg/mL, in males 51 pg/mL. The results should be used in conjunction withclinical conditions of myocardial infarction. (Access High Sensitivity Troponin I Instructions For Use, Lianna [place], November 2017)Urea nitrogen [Mass/Vol]19 mg/dLNormal5 - 21 mg/dLFT RemisolUrea nitrogen/Creatinine [Mass ratio]32 mg/laGmsq74 - 20FT RemisolConsent for Treatmenton 39-99-5385Palwdyu for Treatment [id number]#1.00Holzer HospitalDischarge Instructionson 93-31-8234Hymndxopj Instructions [id number]#1.00TIFNationwide Children's Hospital Clinical Summaryon 47-89-0138SR Clinical Summary [id number] ED Clinical Summary Person Information Name: SOCORRO JOSEPH [facility] Age: 22 Years : 2000 Sex: Female Language: Thai PCP: Lilliam Gonzalez MD Marital Status: Single [...] 02/16/2023 07:09:21 02/16/2023 07:09:21 02/16/2023 07:09:21 ADDRESS: [address] [place] [id number] PHYS DOC NOTES: MEDICAL INFORMATION: Prescriptions Given: New Medications [facility], [address] [place] [id number], [phone] ondansetron (Zofran ODT 4 mg Tab-Dis) 1 Tablets By Mouth every 8 hours as needed Nausea/Vomiting. Refills: 0. PATIENT EDUCATION INFORMATION: Instructions: Nausea and Vomiting, Adult Follow up: With: Address: When: Lilliam Gonzalez [address] [place] [address] Business (1) In 3 days DIAGNOSIS: Diarrhea; N&V (nausea and vomiting); SyncopeNormalFisher Roosevelt Medical CenterED Note-Physicianon 73-48-8584II Note-PhysicianBasic Information Time Seen: Jacinto Mendiola DO 02/16/2023 [...] and Complexity of Problems Differential Diagnosis: [] [facility] Data External documents reviewed: N/A My [...] Information Lilliam Gonzalez In 3 days [address] [place] [address] Business (1) Additional Instructions: Patient Education Nausea [...] Substance Abuse - Isaac (more content not included)...[facility] HamiltonComment on above:Result Comment: Electronically Signed By: Jacinto Mendiola DO\.br\Date and Time Signed: 02/16/23 06:54 PAULETTE Patient Education Noteon 63-63-4064FU Patient Education NoteGastroenterology Nausea and Vomiting, Adult [...] added (diluted fruit juice). ? Eat bland, iexw-zn-fvqiaw foods in small amounts as you are able. These foods include bananas, applesauce, rice, lean meats, toast, and crackers. ? Avoid fluids that contain a lot of sugar or caffeine, such as energy drinks, sports drinks, and soda. ? Avoid alcohol. ? Avoid spicy or fatty foods. General instructions ? Take mmwq-nuk-yfslkdv and prescription medicines only as told by your health care provider. ? Drink enough fluid to keep your urine pale yellow. ? Wash your hands often using soap and water for at least 20 seconds. If soap and water are not available, use hand sweatband maker. ? Make sure that everyone in your [...] and drinking to prevent dehydration. ? Take vyjl-dwo-tkqmkrt and prescription medicines only as told by [...] Reviewed: 09/26/2021 Elsevier Patient Education ? 2022 [employer].[facility] ED Patient Summaryon 38-39-5990PK Patient Summary [address] [address] Patient Discharge Instructions Person Information Name: SOCORRO JOSEPH Age: 22 Years Arrival Date: 02/16/2023 05:05:22 Discharge Diagnosis: Diarrhea; N&V (nausea and vomiting); Syncope Primary Care Physician: Lilliam Gonzalez MD Provider Information Primary Provider: Jacinto Mendiola DO [employer] Specialist:None The exam and treatment you received in the Emergency Department were for an urgent problem and are not intended as complete care. It is important that you follow up with a doctor, nurse practitioner,or physician?s shipping assistant for ongoing care. If your symptoms [...] With: Address: When: Lilliam Gonzalez [address] [place] [address] Business (1) In 3 days In the event that this physician does not participate in your insurance network, please consult with your insurance company to find a nearby participating provider. Patient Education Materials: Nausea and Vomiting, Adult A MESSAGE TO ALL PATIENTS REGARDING OPIOIDS PRESCRIPTION OPIOIDS: WHAT YOU NEED TO KNOW Prescription opioids can be used to help relieve ckcspfhy-bz-pcvdvd pain and are often prescribed following a [...] your community drug take- back program or yourithinksportrmBroadband Networks Wireless Internet mail-back program, or flush them down the toilet, following guidance from the Food and Drug Administration (www.fda.gov/Drugs/ResourcesForYou). ? Visit www.cdc.gov/drugoverdose to learn about the risks of opioids abuse and overdose. ? If you believe you may be struggling with addiction, tell your health child care attendant school and ask for guidance or call [facility]?S National Helpline at 0-871-567-FHIW. d [facility] (more content not included)...[facility] HEMATOLOGYOrdered By: SYSTEM SYSTEM on 26-93-1639Bhplxtuoq/100 WBC (Bld)0.6 % Normal0.0 - 2.0 %[facility] [place] HemeAutoSSBasophils/Leukocytes Auto (Bld) [Pure # fraction]0.0 E9/LNormal0.0 - 0.2 E9/LFTMC HemeAutoSSEosinophils/100 WBC (Bld)0.8 %Normal0.0 - 8.0 %FT HemeAutoSSEosinophils/Leukocytes Auto (Bld) [Pure # fraction]0.1 E9/LNormal0.0 - 0.5 E9/LFTMC HemeAutoSSLymphocytes/100 WBC (Bld) 27.0 %Clkedr56.0 - 50.0 %FT HemeAutoSSLymphocytes/Leukocytes Auto (Bld) [Pure # fraction]1.8 E9/LNormal1.0 - 4.0 E9/LFTMC HemeAutoSSMonocytes/100 WBC (Bld)7.8 %Normal4.0 - 14.0 %FT HemeAutoSSMonocytes/Leukocytes Auto (Bld) [Pure # fraction]0.5 E9/LNormal0.2 - 1.0 E9/LFTMC HemeAutoSSNeutrophils/100 WBC (Bld) 63.8 %Rjtbvk68.0 - 75.0 %[facility] [place] HemeAutoSSNeutrophils/Leukocytes Auto (Bld) [Pure # fraction]4.3 E9/LNormal2.0 - 7.5 E9/LFTMC HemeAutoSSHEMATOLOGYOrdered By: Case Aponte on 70-93-8673Nhrgdxjjhsl distribution width (RBC) [Ratio]13.0 % Udmrxx56.9 - 14.2 %[facility] HemeAutoSSHematocrit (Bld) [Volume fraction]41.4 %Normal 34.0 - 46.0 %[facility] HemeAutoSSHemoglobin (Bld) [Mass/Vol]13.9 g/pQJdywcz70.0 - 16.0 gm/dLFTMC HemeAutoSSMCH (RBC) [Entitic mass]31.0 lzMwjtax18.0 - 34.0 pgFTMC HemeAutoSSMCHC (RBC) [Mass/Vol]33.6 g/zKHvlbps07.4 - 36.0 gm/dLFTMC HemeAutoSS MCV (RBC) [Entitic vol]92.3 aBGcvvxw65.0 - 100.0 fLFTMC HemeAutoSSPlatelet mean volume (Bld) [Entitic vol]9.7 fLNormal6.4 - 10.8 fLFTMC HemeAutoSSPlatelets (Bld) [#/Vol]254.0 E9/AMbwxht019.0 - 500.0 E9/LFTMC HemeAutoSSRBC (Bld) [#/Vol] 4.5 E12/LNormal4.3 - 5.9 E12/LFTMC HemeAutoSSWBC corrected for nucl RBC Auto (Bld) [#/Vol]6.7 E9/LNormal4.0 - 11.0 E9/LFTMC HemeAutoSSHep Func Panelon 39-11-3018Odqattz [Mass/Vol]3.9 g/dLNormal3.3-5.0[facility] Comment on above:Performed By: #### 03839074, 4542182, 7208801, 4988609, 0405763, 26449909, 0713676 ####[facility] [address] [place], [place] [address]Lxlijmk/Globulin (S) [Mass conc ratio]1.0Zgivtf3.1-2.2 [facility] TroyComment on above:Performed By: #### 44791651, 2172853, 7021601, 3217844, 7825585, 69802357, 9687530 ####[address] [address]LFG [Catalytic activity/Vol]86 Int._Unit/PXymfdn21-29FeptsjKettering Health TroyComment on above:Performed By: #### 57122995, 4239883, 9753291, 1128396, 2943693, 75794153, 5926361 ####[address] [address]OOR No additional P-5'-P [Catalytic activity/Vol]18 Int._Unit/LNormal6-46[facility] TroyComment on above:Performed By: #### 90621381, 2485049, 2992171, 8258114, 7724136, 02790173, 6124547 ####[address] [address]VBT [Catalytic activity/Vol]14 Int._Unit/LNormal5-43[facility] TroyComment on above:Performed By: #### 00856866, 5606223, 4962297, 6186488, 1150169, 32924109, 2894335 ####[address] [address]Kvmfotbyt [Mass/Vol]1.0 mg/dLNormal 0.0-1.1FCleveland Clinic Euclid HospitalComment on above:Performed By: #### 27264953, 1062064, 4014141, 1419817, 4705313, 06145445, 1404264 ####[address] [address]Olhkojtqp.direct [Mass/Vol]0.2 mg/dLNormal0.1-0.4FCleveland Clinic Euclid HospitalComment on above:Performed By: #### 30597720, 0939991, 3329498, 0603721, 6390629, 32540414, 9522222 ####[facility] [address] [place] [address] Bilirubin.indirect [Mass or moles/Vol]0.8 mg/dLNormal0.1-0.9[facility] TroyComment on above:Performed By: #### 65986125, 8578490, 3913934, 4126274, 0552577, 40238815, 6626793 ####[address] [address]Xwnfumyy (S) [Mass/Vol]2.8 g/dLNormal1.4-4.0[facility] TroyComment on above:Performed By: #### 99686849, 4095659, 0171945, 1944067, 8640881, 20425205, 6243372 ####[address] [address]Tbaomnt [Mass/Vol]6.7 g/dLNormal6.0-7.8[facility] TroyComment on above:Performed By: #### 20596589, 0027596, 6474026, 3336764, 9578331, 97451043, 8671413 ####[address] [address]Lguxnw Levelon 60-46-5602Zjlckq [Catalytic activity/Vol]22 U/THpjkfk89-06IokevjKettering Health TroyComment on above:Performed By: #### 69823075, 4490408, 0297827, 8637046, 6506647, 80499979, 7113406 ####[address] [address]Oirzhvjobgzwu/Work Noteson 13-33-3463Gazxrdejgjgdl/Work Notes [id number]#1.00TIFFNormalKettering Health TroyTroponin 0 Hr.on 82-68-9919Lvhpgvmc I.cardiac [Mass/Vol]ng/mLLow 10.10-27.10[facility] TroyComment on above:Result Comment: The 95% CI (Confidence Interval) PPV (Positive Predictive Value) for myocardial infa rction in females is 38 pg/mL, in males 51 pg/mL. The results should be used in conjunction with clinical conditions of myocardial infarction. (Access High Sensitivity Troponin I Instructions For Use, Lianna Alej[place], November 2017)Performed By: #### 95459326, 0140352, 8214489, 8173723, 0999118, 52859873, 4562425 ####[facility] [address] [place], [place] [address]yTMIjx 32-58-1925ANW/1.73 sq M.predicted among non-blacks MDRD (S/P/Bld) [Vol rate/Area]128 mL/min/1.73 y7Iaesdy>=59[facility] TroyComment on above:Order Comment: Order added by Discern Expert.Result Comment: Chronic kidney disease could be indicated at eGFR's of less than 60 mL/min/1.73m2. Kidney failure is indicated at less than 15 mL/min/1.73m2. Performed By: #### 23963040, 0283589, 0393566, 9944508, 4420493, 39386489, 9118106 ####[facility] [address] [place], [place] [address]Okjiaw Medicine Office/Clinic Noteon 77-65-9445Nlrobx Medicine Office/Clinic NoteChief Complaint EST rt foot [...] created with voice recognition software. Occasional wrong-word or?wzefd-k-mazp? substitutions may have occurred due to the inherent limitations of voice recognitionsoftware. 22 yo female presents today with cc of foot pain following injury. 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 She states it kind [...] An LOERA, Raquel Penny [address] [place] [address]- Additional Instructions: Patient Education Contusion, Vttz-yk-Ckyw Problem List/Past Medical History Ongoing Depression Smoker Historical Smoker Supervision of normal (more content not included)...[facility] HamiltonComment on above:Result Comment: Electronically Signed By: Timothy TREVIZO, Tony Bhatia\.br\Date and Time Signed: 12/19/2315:13 EDTPatient Educationon 21-04-1238Yxvxpoo EducationOrthopedics Contusion A contusion is a deep [...] sittingor lying down. General instructions ? Take koao-ufq-blsexbm and prescription medicines only as told by [...] also called RICE. You may be given shch-juj-leskbjh medicines for pain. ? Contact a doctor [...] Reviewed: 01/15/2022 Elsevier Patient Education ? 2022 [employer] XR Ankle 3+ Views Righton [id number] Ankle 3+ Views RightExam Date/Time: 12/18/2022 15:56 [...] Ka,r in mGy = na DAP = [facility] HospitalXR Foot 3+ Views Righton [id number] Foot 3+ Views RightExam Date/Time: 12/18/2022 15:56 [...] Ka,r in mGy = na DAP = [facility] HospitalCB AUTO DIFFon 37-98-8087SDEO #0.1 103/ulNormal0.0-0.1[facility] Shelby HospitalComment on above:Performed By: #### CBC #### [facility] [address] [address] [address] Janett PlataBasophils/100 WBC (Bld)1.1 %Normal0.2-2.0[facility] Comment on above:Performed By: #### CBC #### [facility] [address] [place] [address] Dr. Janett Tinsley #0.1 103/ulNormal0.0-0.7The Memorial Health SystemComment on above: Performed By: #### CBC #### [facility] [address] [place] [address] Dr. Janett Babcockosinophils/100 WBC (Bld)1.7 %Normal0.9-7.0[facility] Comment on above:Performed By: #### CBC #### [facility] [address] [place] [address] Dr. Janett Babcockrythrocyte distribution width (RBC) [Ratio]12.6 %Ysezqe27.0-15.0 [facility] SystemComment on above:Performed By: #### CBC #### [facility] [address] [place] [address] Dr. Janett PlataHematocrit (Bld) [Volume fraction]41.0 %Vpetgm09.0-48.0[facility] SystemComment on above:Performed By: #### CBC #### [facility] [address] [place] [address] Dr. Janett PlataHemoglobin (Bld) [Mass/Vol]13.3 g/kJDqxwxy25.0-16.0The [facility] SystemComment on above:Performed By: #### CBC #### [facility] [address] [place] [address] Dr. Janett Gonzales #0.02 10e3/ulNormal0.00-0.03The [facility] SystemComment on above:Performed By: #### CBC #### [facility] [facility] [address] [place] [address] Dr. Janett Gonzales %0.3 %Normal0.0-0.5The Memorial Health SystemComment on above: Performed By: #### CBC #### [facility] [address] [place] [address] Dr. Janett An #2.8 103/ulNormal1.2-3.8The [facility] Health SystemComment on above:Performed By: #### CBC #### [facility] [address] [place] [address] Dr. Janett Aburtohocytes/100 WBC (Bld)40.6 %Zlayqq51.5-60.0The [facility] Health SystemComment on above:Performed By: #### CBC #### [facility] [address] [place] [address] Dr. Janett Murdock DIFF REQNONormalThe Memorial Health SystemComment on above: Performed By: #### CBC #### [facility] [address] [place] [address] Dr. Janett Elam (RBC) [Entitic mass]30.4 jeOlvhkb60.7-34.0The [facility] SystemComment on above:Performed By: #### CBC #### [facility] [address] [place] [address] Dr. Janett Chamorro (RBC) [Mass/Vol]32.4 g/wUDyitcr54.9-35.2The [facility] Health SystemComment on above:Performed By: #### CBC #### [facility] [address] [place] [address] Dr. Janett Cortez (RBC) [Entitic vol]93.8 bSDwrsyh24.0-99.0The [facility] Health SystemComment on above:Performed By: #### CBC #### [facility] [address] [place] [address] Dr. Janett Richard #0.4 103/ulNormal0.3-0.8The [facility] Health SystemComment on above:Performed By: #### CBC #### [facility] [address] [place] [address] Dr. Yilan ChangMonocytes/100 WBC (Bld)5.4 %Normal1.7-12.0[facility] Comment on above:Performed By: #### CBC #### [facility] [address] [place] [address] Dr. Janett Garcia #3.6 103/ulNormal1.4-6.5The [facility] SystemComment on above:Performed By: #### CBC #### [facility] [address] [place] [address] Dr. Janett Fletcherutrophils/100 WBC (Bld)50.9 %Srxmce04.0-75.0The [facility] Health SystemComment on above:Performed By: #### CBC #### [facility] [address] [place] [address] Dr. Janett Gallo mean volume (Bld) [Entitic vol]10.2 fLNormal9.5-13.5The [facility] Health SystemComment on above:Performed By: #### CBC #### [facility] [address] [place] [address] Dr. Janett BoyceT267 103/xcXxvgdq297-761Zlf [facility] SystemComment on above: Performed By: #### CBC #### [facility] [address] [place] [address] Dr. Janett BoseC4.37 106/ulNormal4.20-5.40The [facility] SystemComment on above:Performed By: #### CBC #### [facility] [address] [place] [address] Dr. Janett WoodsBC7.0 103/ulNormal4.0-11.0The [facility] Health SystemComment on above: Performed By: #### CBC #### [facility] [address] [place] [address] Dr. Janett Babin QUANT HCGon [id number] QUANT<1NormalThe [facility] Comment on above:Performed By: #### PREGQNT #### [facility] [address] [place] [address] Dr. Janett San RANGESEE [facility] CenterComment on [facility]: Result Comment: 5-50 0.2-1 WEEK 50-500 1-2 WEEKS 100-5,000 2-3 WEEKS 500-10,000 3-4 WEEKS 1,000-50,000 4-5 WEEKS 10,000-100,000 5-6 WEEKS 15,000-200,000 6-8 WEEKS 10,000-100,000 2-3 MONTHSPerformed By: #### PREGQNT #### [facility] [address] [place] [address] Dr. Janett PlataXR CHEST 2 Von [id number] CHEST 2 VEXAMINATION: XR CHEST 2 V [...] Electronically authenticated by: BAO DESIR Date: 2022-06-10 10:31[facility] HospitalCNOVon [id number] Visit (CALEB) SOCORRO JOSEPH ([id number]) 2000 F Date Time Provider Department 11/06/21 1:30 PM FERNANDA SOUZA During your visit today, we recorded the following information about you: Fernanda Souza APRN.MEDICAL MANAGER 11/06/2021 1:17 PM Signed 1. Stay hydrated [...] Current Outpatient Medications M (more content not included)...NormalUniversity Hospitals Lake West Medical CenterTORY PHYSICAL on [id number] PHYSICALHNO ID: [id number] Author: Fernanda Souza APRN.MEDICAL MANAGER Service: ? 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 #### [facility] [address] [place] [address] Dr. Janett PlataUS PELVIS AND TRANSVAGon [id number] PELVIS AND TRANSVAG EXAMINATION: US PELVIS AND [...] Electronically authenticated by: EVELIA LLAMAS Date: 2021-10-21 08:09[facility]-SULFATEon 61-40-4692VWKB-Ozpjhxg257.0 ug/dLNormal 110.0-431.7The [facility] Health SystemComment on above:Performed By: #### DHEASUL ####[facility] [address] [address]Dr. Janett Barone 39-42-9736OOA1.3 mIU/mLNormalOhiohealth Shelby HospitalComment on above:Result Comment: Adult Female: Follicular phase 3.5 - 12.5 Ovulation phase 4.7 - 21.5 Luteal phase 1.7 - 7.7 Postmenopausal 25.8 - 134.8Performed By: #### LBCFSH #### [facility] [address] [place] [address] Dr. Janett PlataLUTEINIZING HORMONE (LH)on 25-76-2094WB30.9 mIU/mLNormalOhiohealth Shelby HospitalComment on above:Result Comment: Adult Female: Follicular phase 2.4 - 12.6 Ovulation phase 14.0 - 95.6 Luteal phase 1.0 - 11.4 Postmenopausal 7.7 - 58.5Performed By: #### LBCLH #### [facility] [address] [place] [address] Dr. Janett Adhikari AUTO DIFFon [id number] #0.0 103/ulNormal0.0-0.1Ohiohealth Shelby HospitalComment on above:Performed By: #### CBC #### [facility] [address] [place] [address] Dr. Janett PlataBasophils/100 WBC (Bld)0.4 %Normal0.2-2.0[facility] Comment on above:Performed By: #### CBC #### [facility] [address] [place] [address] Dr. Janett Tinsley #0.1 103/ulNormal0.0-0.7The [facility] SystemComment on above: Performed By: #### CBC #### [facility] [address] [place] [address] Dr. Janett Babcockosinophils/100 WBC (Bld)1.1 %Normal0.9-7.0[facility] Comment on above:Performed By: #### CBC #### [facility] [address] [place] [address] Dr. Janett Babcockrythrocyte distribution width (RBC) [Ratio]12.1 %Bvawyt81.0-15.0 The [facility] Health SystemComment on above:Performed By: #### CBC #### [facility] [address] [place] [address] Dr. Janett PlataHematocrit (Bld) [Volume fraction]39.9 %Wotplp89.0-48.0The [facility] SystemComment on above:Performed By: #### CBC #### [facility] [address] [place] [address] Dr. Janett PlataHemoglobin (Bld) [Mass/Vol]13.0 g/iJEuhodj41.0-16.0The [facility] SystemComment on above:Performed By: #### CBC #### [facility] [address] [place] [address] Dr. Janett Gonzales #0.02 10e3/ulNormal0.00-0.03The [facility] SystemComment on above:Performed By: #### CBC #### [facility] [address] [place] [address] Dr. Janett Gonzales %0.2 %Normal0.0-0.5The [facility] SystemCommarlette regional hospital on above: Performed By: #### CBC #### [facility] [address] [place] [address] Dr. Janett AburtoH #2.9 103/ulNormal1.2-3.8The [facility] SystemComment on above:Performed By: #### CBC #### [facility] [address] [place] [address] Dr. Janett Hallmphocytes/100 WBC (Bld)32.0 %Kqnhib02.5-60.0The [facility] SystemComment on above:Performed By: #### CBC #### [facility] [address] [place] [address] Dr. Janett CruzUAL DIFF REQNONormalThe [facility] Health SystemComment on above: Performed By: #### CBC #### [facility] [address] [place] [address] Dr. Janett Chamorro (RBC) [Entitic mass]31.0 mbAwcwys39.7-34.0The [facility] SystemComment on above:Performed By: #### CBC #### [facility] [address] [place] [address] Dr. Janett Chamorro (RBC) [Mass/Vol]32.6 g/qHOdprgu38.9-35.2The [facility] Health SystemComment on above:Performed By: #### CBC #### [facility] [address] [place] [address] Dr. Janett Chamorro (RBC) [Entitic vol]95.2 eRPhwogs64.0-99.0The [facility] SystemComment on above:Performed By: #### CBC #### [facility] [address] [place] [address] Dr. Janett Richard #0.5 103/ulNormal0.3-0.8The [facility] SystemComment on above:Performed By: #### CBC #### [facility] [address] [place] [address] Dr. Janett Morrisonocytes/100 WBC (Bld)5.3 %Normal1.7-12.0[facility] Comment on above:Performed By: #### CBC #### [facility] [address] [place] [address] Dr. Janett Garcia #5.5 103/ulNormal1.4-6.5The [facility] SystemComment on above:Performed By: #### CBC #### [facility] [address] [place] [address] Dr. Janett Fletcherutrophils/100 WBC (Bld)61.0 %Uaanwr78.0-75.0The [facility] SystemComment on above:Performed By: #### CBC #### [facility] [address] [place] [address] Dr. Janett Saleemlet mean volume (Bld) [Entitic vol]9.5 fLNormal9.5-13.5The [facility] Health SystemComment on above:Performed By: #### CBC #### [facility] [address] [address] [address] Janett PlataPLT227 103/lkAcrobl599-677Gkb [facility] SystemComment on above: Performed By: #### CBC #### [facility] [address] [id number] [address] Janett PlataRBC4.19 106/ulCritically low4.20-5.40The [facility] SystemComment on above:Performed By: #### CBC #### [facility] [address] [address] [address] Janett PlataWBC9.1 103/ulNormal4.0-11.0The [facility] SystemComment on above: Performed By: #### CBC #### [facility] [address] [place] [address] Dr. Janett Goodwin 74-70-0529BIR4.507 uIU/mLNormal0.358-3.740The [facility] Health SystemComment on above:Performed By: #### TSH #### [facility] [address] [place] [address] Dr. Janett PlataURINALYSISOrdered By: Linh Wright on 64-57-7366Kifbzfqak Ql (U)Negative (09/18/21 1:25 AM)NormalNegativeOKLAHOMA [facility] [place] UA Auto SSClarity (U)Clear (09/18/21 1:25 AM)NormalClearFROGER [facility] [place] [facility] Auto SSColor (U)Yellow (09/18/21 1:25 AM)NormalYellowOKLAHOMA CITY VETERANS [facility] [place] UA Auto SSEpithelial cells.squamous LM.HPF (Urine sed) [#/Area]0-2 /HPFNormal0-2/HPFMC UA Auto SSGlucose Test strip (U) [Mass/Vol]Negative (09/18/21 1:25 AM)NormalNegativeOKLAHOMA CITY [facility] [place] UA Auto SSHemoglobin Ql (U)Negative (09/18/21 1:25 AM)NormalNegativeOKLAHOMA CITY [facility] [place] UA Auto SSKetones (U) [Mass/Vol]Negative (09/18/21 1:25 AM)NormalNegativeOKLAHOMA CITY [facility] [place] UA Auto SSLithium.plasma/[place]lenheim.RBC (Bld) [Mass ratio]0-3 /HPFNormal0-3/HPFOKLAHOMA CITY VETERANS AD[facility]IST[facility] [place] UA Auto SSNitrite Ql (U)Negative (09/18/21 1:25 AM)NormalNegativeOKLAHOMA CITY [facility] [place] UA Auto SSpH (U)6.5 *NA* (09/18/21 1:25 AM)Invalid Interpretation Code5.0 - 9.0[facility] [place] UA Auto SSProtein (U) [Mass/Vol]Negative (09/18/21 1:25 AM)NormalNegativeOKLAHOMA CITY [facility] [place] UA Auto SSSpecific gravity (U) [Rel density] <=1.005 *NA* (09/18/21 1:25 AM)Invalid Interpretation Code1.005 - 1.030[facility] [place] UA Auto SSUA Spec DescClean Catch (09/18/21 1:25 AM)NormalOKLAHOMA CITY VETERANS [facility] [place] UA Auto SSUrobilinogen Qn (U)0.4237244 {Paco'U}/dLNormal0.0 - 1.0 EU/dLOKLAHOMA CITY VETERANS [facility]IST[facility] [place] UA Auto SSWBC Auto Ql (U)Negative (09/18/21 1:25 AM)NormalNegativeOKLAHOMA CITY [facility] [place] UA Auto SSWBC LM.HPF (Urine sed) [#/Area]0-5 /HPFNormal0-5/HPFOKLAHOMA CITY VETERANS [facility] [place] UA Auto SSCHEMISTRYOrdered By: SYSTEM SYSTEM on 36-39-6081Ljbonag [Mass/Vol]4.5 g/dLNormal3.3 - 5.0 gm/dLOKLAHOMA CITY VETERANS [facility]IST[facility] [place] Remisol Albumin/Globulin [Mass ratio]1.6 {ratio}Normal1.1 - 2.2[facility] RemisolALP [Catalytic activity/Vol]71 [iU]/zKxnpqx93 - 98 Int._Unit/LFTMC RemisolALT No additional P-5'-P [Catalytic activity/Vol]27 [iU]/dNormal6 - 46 Int._Unit/LFTMC RemisolAnion gap [Moles/Vol]14 mmol/LNormal6 - 16 mEq/LFT[facility] RemisolAST [Catalytic activity/Vol]32 [iU]/dNormal5 - 43 Int._Unit/LFT[facility] RemisolBilirubin [Mass/Vol]0.6 mg/dLNormal0.0 - 1.1 mg/dLFTMC RemisolBilirubin.direct [Mass/Vol] mg/dLNormal0.1 - 0.4 mg/dLFTMC RemisolBilirubin.indirect [Mass or moles/Vol] Unable to Calculate mg/dLInvalid Interpretation Code0.1 - 0.9 mg/dLFTMC Remisol Calcium [Mass/Vol]9.2 mg/dLNormal8.9 - 11.1 mg/dLFT[facility] RemisolChloride [Moles/Vol]105 mmol/NQewlxm595 - 111 mmol/LFTMC RemisolCO2 [Moles/Vol]23 mmol/L Rshcoj34 - 31 mmol/LFTMC RemisolCreatinine [Mass/Vol]0.6 mg/dLNormal0.5 - 1.3 mg/dLFTMC RemisolGFR/1.73 sq M.predicted among blacks MDRD (S/P/Bld) [Vol rate/Area]mL/min/1.73 o3Olnkth>=59mL/min/1.73 m2[facility] Chem SGFR/1.73 sq M.predicted among non-blacks MDRD (S/P/Bld) [Vol rate/Area]mL/min/1.73 d9Aawuks >=59mL/min/1.73 m2[facility] Chem SGlobulin (S) [Mass/Vol]2.8 g/dLNormal1.4 - 4.0 gm/dLFTMC RemisolGlucose [Mass/Vol]109 mg/tOBdyzhh29 - 199 mg/dLFTMC Remisol Lipase [Catalytic activity/Vol]23 U/BZslgin30 - 58 unit/LFT[facility] RemisolPotassium [Moles/Vol]3.5 mmol/LNormal3.5 - 5.3 mmol/LFTMC RemisolProtein [Mass/Vol]7.3 g/dLNormal6.0 - 7.8 gm/dLFTMC RemisolSodium [Moles/Vol]138 mmol/YGxqntn724 - 145 mmol/LFTMC RemisolUrea nitrogen [Mass/Vol]10 mg/dLNormal5 - 21 mg/dLFTMC RemisolUrea nitrogen/Creatinine [Mass ratio]17 mg/dkCviegc31 - 20[facility] Remisol HEMATOLOGYOrdered By: SYSTEM SYSTEM on 64-23-3683Ifntefobb/100 WBC (Bld)0.4 % Normal0.0 - 2.0 %[facility] HemeAutoSSBasophils/Leukocytes Auto (Bld) [Pure # fraction]0.0 E9/LNormal0.0 - 0.2 E9/LFTMC HemeAutoSSEosinophils/100 WBC (Bld)0.7 %Normal0.0 - 8.0 %[facility] HemeAutoSSEosinophils/Leukocytes Auto (Bld) [Pure # fraction]0.1 E9/LNormal0.0 - 0.5 E9/LFTMC HemeAutoSSLymphocytes/100 WBC (Bld) 33.7 %Rfhwjt10.0 - 50.0 %[facility] HemeAutoSSLymphocytes/Leukocytes Auto (Bld) [Pure # fraction]3.6 E9/LNormal1.0 - 4.0 E9/LFT[facility] HemeAutoSSMonocytes/100 WBC (Bld)6.4 %Normal4.0 - 14.0 %[facility] HemeAutoSSMonocytes/Leukocytes Auto (Bld) [Pure # fraction]0.7 E9/LNormal0.2 - 1.0 E9/LFTMC HemeAutoSSNeutrophils/100 WBC (Bld) 58.8 %Lgxuik27.0 - 75.0 %[facility] HemeAutoSSNeutrophils/Leukocytes Auto (Bld) [Pure # fraction]6.3 E9/LNormal2.0 - 7.5 E9/LFTMC HemeAutoSSHEMATOLOGYOrdered By: Coretta Tony on 74-54-0801Nhkjkuicosk distribution width (RBC) [Ratio]13.1 %Mvoqbr33.9 - 14.2 %[facility] HemeAutoSSHematocrit (Bld) [Volume fraction]41.1 %Jzalhi92.0 - 46.0 %[facility] HemeAutoSSHemoglobin (Bld) [Mass/Vol]14.0 g/eXNcbvpf88.0 - 16.0 gm/dL [facility] HemeAutoSSMCH (RBC) [Entitic mass]31.8 laKejbju52.0 - 34.0 pgFTMC HemeAutoSSMCHC (RBC) [Mass/Vol]34.1 g/yTOozvio34.4 - 36.0 gm/dLOKLAHOMA CITY VETERANS [facility] [place] HemeAutoSS MCV (RBC) [Entitic vol]93.2 iXPhtxix82.0 - 100.0 fLOKLAHOMA CITY VETERANS ADMINISTRATION [facility] [place] HemeAutoSSPlatelet mean volume (Bld) [Entitic vol]8.4 fLNormal6.4 - 10.8 fLOKLAHOMA CITY VETERANS ADMINISTRATION [facility] [place] HemeAutoSSPlatelets (Bld) [#/Vol]233.0 E9/LDonlyu218.0 - 500.0 E9/LFTMC HemeAutoSSRBC (Bld) [#/Vol] 4.4 E12/LNormal4.3 - 5.9 E12/LFTMC HemeAutoSSWBC corrected for nucl RBC Auto (Bld) [#/Vol]10.7 E9/LNormal4.0 - 11.0 E9/LFTMC HemeAutoSSMICRO OTHER TESTS Ordered By: Coretta Tony on 53-61-2076Ttygxy Bld StlNegative (09/17/21 10:40 PM)NormalNegativeOKLAHOMA [facility] [place] Man SeroSEROLOGYOrdered By: Linh Wright on 23-37-6530Bwlf hCG QlNegative (09/17/21 10:42 PM)NormalOKLAHOMA CITY VETER[facility] [place] Man SeroBLOOD BANKOrdered By: Coretta Tony on 48-74-3518TIO/Rh InterpPositiveInvalid Interpretation CodeOKLAHOMA CITY VETERANS [facility] [place] BB Subsection CHEMISTRYOrdered By: SYSTEM SYSTEM on 10-97-8378Ybrvd gap [Moles/Vol]12 mmol/L Normal6 - 16 mEq/LFT[facility] RemisolCalcium [Mass/Vol]9.1 mg/dLNormal8.9 - 11.1 mg/dL [facility] [place] RemisolChloride [Moles/Vol]103 mmol/NTekubh183 - 111 mmol/LFT[facility] RemisolCO2 [Moles/Vol]24 mmol/TWmpvys40 - 31 mmol/LFT[facility] RemisolCreatinine [Mass/Vol]0.5 mg/dLNormal0.5 - 1.3 mg/dLOKLAHOMA CITY VETERANS ADMINIST[facility] [place] RemisolGFR/1.73 sq M.predicted among blacks MDRD (S/P/Bld) [Vol rate/Area]mL/min/1.73 d6Uhqizc>=59mL/min/1.73 m2FT Chem S GFR/1.73 sq M.predicted among non-blacks MDRD (S/P/Bld) [Vol rate/Area] mL/min/1.73 l4Fxkqcz>=59mL/min/1.73 m2OK[facility] [place] Chem SGlucose [Mass/Vol]114 mg/dL Rzjegs95 - 199 mg/dLFTMC RemisolPotassium [Moles/Vol]3.6 mmol/LNormal3.5 - 5.3 mmol/LFT[facility] RemisolSodium [Moles/Vol]135 mmol/NMtaabl121 - 145 mmol/LFT[facility] Remisol Urea nitrogen [Mass/Vol]17 mg/dLNormal5 - 21 mg/dLFTMC RemisolUrea nitrogen/Creatinine [Mass ratio]34 mg/bvJymc85 - 20[facility] RemisolCOAGULATION Ordered By: Charlotte Rosales on 11-17-1122yIKI Coag (PPP) [Time]36.1 sNormal 25.1 - 36.5 second(s)[facility] Auto CoagINR Coag (PPP) [Relative time]1.0 {INR} Invalid Interpretation CodeFTMC Auto CoagPT Coag (PPP) [Time]12.3 zXjeryo44.2 - 12.9 second(s)[facility] Auto CoagHEMATOLOGYOrdered By: SYSTEM SYSTEM on 07-16-2021 Basophils/100 WBC (Bld)0.4 %Normal0.0 - 2.0 %[facility] HemeAutoSSBasophils/Leukocytes Auto (Bld) [Pure # fraction]0.0 E9/LNormal0.0 - 0.2 E9/LFTMC HemeAutoSS Eosinophils/100 WBC (Bld)0.8 %Normal0.0 - 8.0 %[facility] HemeAutoSS Eosinophils/Leukocytes Auto (Bld) [Pure # fraction]0.1 E9/LNormal0.0 - 0.5 E9/L [facility] HemeAutoSSLymphocytes/100 WBC (Bld)39.8 %Yfpizg27.0 - 50.0 %[facility] HemeAutoSS Lymphocytes/Leukocytes Auto (Bld) [Pure # fraction]2.6 E9/LNormal1.0 - 4.0 E9/L [facility] HemeAutoSSMonocytes/100 WBC (Bld)5.8 %Normal4.0 - 14.0 %[facility] HemeAutoSS Monocytes/Leukocytes Auto (Bld) [Pure # fraction]0.4 E9/LNormal0.2 - 1.0 E9/L [facility] HemeAutoSSNeutrophils/100 WBC (Bld)53.2 %Gisuov05.0 - 75.0 %[facility] HemeAutoSS Neutrophils/Leukocytes Auto (Bld) [Pure # fraction]3.5 E9/LNormal2.0 - 7.5 E9/L [facility] HemeAutoSSHEMATOLOGYOrdered By: Coretta Tony on 86-90-1905Uuzniyultiq distribution width (RBC) [Ratio]13.3 %Wvnlgp20.9 - 14.2 %[facility] HemeAutoSS Hematocrit (Bld) [Volume fraction]38.5 %Xxmdrn03.0 - 46.0 %[facility] HemeAutoSS Hemoglobin (Bld) [Mass/Vol]13.1 g/nIUwxavl04.0 - 16.0 gm/dLFTMC HemeAutoSSMCH (RBC) [Entitic mass]31.4 kvVxomiy81.0 - 34.0 pgFTMC HemeAutoSSMCHC (RBC) [Mass/Vol]34.2 g/eUJqrehv75.4 - 36.0 gm/dLFTMC HemeAutoSSMCV (RBC) [Entitic vol] 92.0 vLWamtaa55.0 - 100.0 fLFTMC HemeAutoSSPlatelet mean volume (Bld) [Entitic vol]8.6 fLNormal6.4 - 10.8 fLFTMC HemeAutoSSPlatelets (Bld) [#/Vol]213.0 E9/L Bkirgw589.0 - 500.0 E9/LFTMC HemeAutoSSRBC (Bld) [#/Vol]4.2 E12/LLow4.3 - 5.9 E12/LFTMC HemeAutoSSWBC corrected for nucl RBC Auto (Bld) [#/Vol]6.6 E9/LNormal 4.0 - 11.0 E9/LFTMC HemeAutoSSSEROLOGYOrdered By: Charlotte Rosales on 75-89-0907KMB.beta subunit (U) [Moles/Vol]NegativeNormalFTMC Man SeroURINALYSIS Ordered By: Charlotte Rosales on 82-95-8728Jihxzlykg Ql (U)Negative (07/16/21 3:20 PM)NormalNegativeOKLAHOMA [facility] [place] UA Auto SSClarity (U)Clear (07/16/21 3:20 PM)NormalClearFROGER [facility]ILL[facility] [place] [facility] Auto SSColor (U)Yellow (07/16/21 3:20 PM)NormalYellowOKLAHOMA CITY VETER[facility] [place] UA Auto SSEpithelial cells.squamous LM.HPF (Urine sed) [#/Area]0-2 /HPFNormal0-2/HPFOKLAHOMA CITY VETERANS AD[facility]IST[facility] [place] UA Auto SSGlucose Test strip (U) [Mass/Vol]Negative (07/16/21 3:20 PM)NormalNegativeOKLAHOMA CITY [facility] [place] UA Auto SSHemoglobin Ql (U)1+ *ABN* (07/16/21 3:20 PM)Invalid Interpretation CodeNegativeOKLAHOMA CITY [facility] [place] UA Auto SSKetones (U) [Mass/Vol]Negative (07/16/21 3:20 PM)NormalNegativeOKLAHOMA CITY [facility] [place] UA Auto SSLithium.plasma/[place]len[place].RBC (Bld) [Mass ratio]4-20 /HPFNormal0-3/HPFOKLAHOMA CITY VETERANS [facility]IST[facility] [place] UA Auto SSNitrite Ql (U)Negative (07/16/21 3:20 PM)NormalNegativeOKLAHOMA CITY [facility] [place] UA Auto SSpH (U)7.0 *NA* (07/16/21 3:20 PM)Invalid Interpretation Code5.0 - 9.0[facility] [place] UA Auto SSProtein (U) [Mass/Vol]Negative (07/16/21 3:20 PM)NormalNegativeOKLAHOMA [facility] [place] UA Auto SSSpecific gravity (U) [Rel density] 1.010 *NA* (07/16/21 3:20 PM)Invalid Interpretation Code1.005 - 1.030[facility] [place] UA Auto SSUA Spec DescClean Catch (07/16/21 3:20 PM)NormalOKLAHOMA CITY VETERANS [facility] [place] UA Auto SSUrobilinogen Qn (U)0.6591933 {Paco'U}/dLNormal0.0 - 1.0 EU/dLOKLAHOMA CITY VETERANS [facility]IST[facility] [place] UA Auto SSWBC Auto Ql (U)Negative (07/16/21 3:20 PM)NormalNegativeOKLAHOMA CITY [facility] [place] Auto SSWBC LM.HPF (Urine sed) [#/Area]0-5 /HPFNormal0-5/HPFOKLAHOMA CITY VETERANS [facility]IST[facility] [place] Auto SSProgress Noteon [id number] Authentication Interface Message ElainaMichaelle for ReferralSocorro, her partner Uli, her mother and sister were seen on 07/05/2017 at [facility] by myself and SCOT Gutierrez. Chandana Huitron MD requested a genetic consult [...] Ultrasound Amniocentesis Maternal serum cell-free DNA screening [place] carrier screeningFollowing our discussion Socorro elected to have: Ultrasound only and declined additional screening and testing.Ultrasound FindingsThe ultrasound was consistent with prior ultrasound dating. 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 Otherwise the ultrasound was unremarkable. The cervicallength was in the normal range. Please refer to the ultrasound report for fulldetails.Follow-up No follow-up in [facility] necessary unless additional concerns arise. Recommend [...] indicated. Mitch Phillips MD and Alix Hendricks [facility] Vital Signs Date TimeVital SignValuePerforming [id number] 10:48-0400Body mass index (BMI) [Ratio]28.4 kg/p5Lgzej Miryam DO Work Phone: [facility] [id number] 10:48-0400Body eulpkq63.73 kgCorey Miryam DO Work Phone: [facility] [id number] 10:48-0400Diastolic blood lrvjutvl11 mm[Hg]Shaan Miryam DO Work Phone: [facility] [id number] 10:48-0400Systolic blood jpradizg775 mm[Hg]Shaan Miryam DO Work Phone: [phone])[facility] [place], [place] [address]Ieujfmhvsu27-04-8229 15:27-0400Body mass index (BMI) [Ratio]27.64 kg/m2Amy Filemon PA Work Phone: [phone] [place], [place] [address]Ovihjseimn70-60-4903 15:27-0400Body bncqux62.46 kgAmy Filemon PA Work Phone: [phone] [place], [place] [address]Dadwvnrlvd52-57-2346 15:27-0400Diastolic blood yeyhitqn17 mm[Hg]Nia Filemon PA Work Phone: 1(924)[phone] [place], [place] [address]Zhslfuonjb39-18-7921 15:27-0400Systolic blood qeswevxi572 mm[Hg]Nia Colbert PA Work Phone: [facility] CenterUnpfqcexqr83-96-3971 12:38-0400Body eawcmt610.7 cmRaquel Nolan MD Work Phone: [facility] CenterKhojkatkqh96-54-9363 12:38-0400Body mass index (BMI) [Ratio]27.25 kg/n9LgnzmRaquel Nolan MD Work Phone: [facility] CenterDrahbqvhlr79-17-2604 12:38-0400Body temperature 98.2 [degF]Raquel Nolan MD Work Phone: [facility] CenterSujcqusfvd15-90-2849 12:38-0400Body .28 kgRaquel Nolan MD Work Phone: [facility] CenterMcnentjxme90-50-4325 12:38-0400Diastolic blood vhxeqaik62 mm[Hg]Raquel Nolan MD Work Phone: [facility] CenterVbpcegvlih61-17-2063 12:38-0400Heart rate71 /min Raquel Nolan MD Work Phone: [facility] CenterZdczihocae44-43-0281 12:38-7094KyN8% (BldA) [Mass fraction]98 %Raquel Nolan MD Work Phone: [facility] CenterBuhwsgcnuv81-65-1500 12:38-0400Systolic blood slledlli048 mm[Hg]Raquel Nolan MD Work Phone: [phone] CenterOvxpdlihzi95-89-2264 10:46-0400Body ubhred920.7 cmRaquel Nolan MD Work Phone: [facility] CenterKmaepgrxgg45-68-0600 10:46-0400Body mass index (BMI) [Ratio]26.94 kg/z6EjuyaRaquel Nolan MD Work Phone: 1(669)674-[address] [place], [place] [address]Tnsswsxyvp71-33-1715 10:46-0400Body temperature 98.2 [degF]Raquel Nolan MD Work Phone: 1(049)540-[address] [place], [place] [address]Weapkbfzbk08-04-7728 10:46-0400Body .38 kgRaquel Nolan MD Work Phone: [facility] CenterGapdxbntvp73-06-5986 10:46-0400Diastolic blood kzahllff29 mm[Hg]Raquel Nolan MD Work Phone: [facility] CenterEapojwepsv82-38-7447 10:46-0400Heart rate66 /min Raquel Nolan MD Work Phone: [facility] CenterSngurennew56-00-9256 10:46-4258MbT6% (BldA) [Mass fraction]99 %Raquel Nolan MD Work Phone: [facility] CenterGanmzwixav81-46-5293 10:46-0400Systolic blood lmcvchae447 mm[Hg]Raquel Nolan MD Work Phone: [place] [address]Ktqgtxcpro42-23-0670 14:00-0500Diastolic blood mm[Hg]Narinder Kumar [address] [place], [place] 8601801-12-2025 14:00-0500Heart rate61 /minNarinder Kumar [address] [place], [place] 8601801-12-2025 14:00-0500Mean blood mm[Hg]Narinder Kumar [address] [place], [place] 8601801-12-2025 14:00-0500 Respiratory rate16 /minNarinder Kumar [address] [place], [place] 8601801-12-2025 14:00-1873FkL2% (BldA) [Mass fraction]97 %Narinder Kumar [address] [place], [place] 8601801-12-2025 14:00-0500 Systolic blood egtphuym283 mm[Hg]Narinder Kumar [address] [place], [place] 8601801-12-2025 01:00-0500 Diastolic blood uwkagygy27 mm[Hg]Narinder Kumar [address] [place], [place] 8601801-12-2025 01:00-0500Heart rate60 /Ifeoma Kumar [address] [place], [place] 8601801-12-2025 01:00-0500Mean blood ugemvkbp78 mm[Hg]Narinder Kumar [address] [place], [place] 2068901-12-2025 01:00-8792KuQ9% (BldA) [Mass fraction]97 %Narinder Kumar [address] [place], [place] 8601801-12-2025 01:00-0500 Systolic blood dfntlwiy91 mm[Hg]Narinder Kumar [address] [place], [place] 8601801-12-2025 00:00-0500 Diastolic blood vnqyafib76 mm[Hg]Narinder Kumar [address] [place], [place] 8601801-12-2025 00:00-0500Heart rate63 /Ifeoma Kumar [address] [place], [place] 2068901-12-2025 00:00-0500Mean blood mm[Hg]Narinder Kumar [address] [place], [place] 2068901-12-2025 00:00-0500 Respiratory rate16 /Ifeoma Kumar [address] [place], [place] 2068901-12-2025 00:00-2533QqA2% (BldA) [Mass fraction]99 %Narinder Kumar [address] [place], [place] 2068901-12-2025 00:00-0500 Systolic blood eddfqaym925 mm[Hg]Narinder Kumar [address] [place], [place] 2068901-11-2025 21:11-0500Body guwznpnhpwn55.52 [degF]Narinder José [address] [place], [place] 2068901-11-2025 21:11-0500Heart rate68 /Ifeoma Kumar [address] [place], [place] 2068901-11-2025 21:11-0500 Respiratory rate18 /Ifeoma Kumar [address] [place], [place] 2068901-08-2025 13:46-0500Blood Pressure LocationPamaría elena Warner [phone]-LbthdChillicothe Hospital [facility] Ipia43-98-7674 13:46-0500Body rejwmowobcx38.24 [degF]Ann Warner [phone]-SzichChillicothe Hospital [facility] Sfgd64-52-6487 13:46-0500Diastolic blood mm[Hg]Ann Warner [phone]-ZzafcChillicothe Hospital [facility] Mlcn56-87-5157 13:46-0500Heart rate79 /minAnn Warner [phone]-KgnxfChillicothe Hospital [facility] Udih41-15-2041 13:46-0500Respiratory rate18 /minPatrichenrietta Hernandezchasecata [phone]-IzgmrChillicothe Hospital [facility] Anrk38-53-8212 13:46-5185HhC5% (BldA) [Mass fraction]99 %Ann Warner [phone]-DglsnChillicothe Hospital [facility] Eake27-12-9434 13:46-0500Systolic blood coldwzbt830 mm[Hg]Ann Warner [phone]-IozvuChillicothe Hospital [facility] Ygby69-00-7203 12:38-0500Body kuudlt637.7 cmRaquel Nolan MD Work Phone: [facility] CenterDuquwqwcxk72-87-7093 12:38-0500Body mass index (BMI) [Ratio]27.31 kg/i4FggtaRaquel Nolan MD Work Phone: [facility] CenterXmesgtanus23-40-6767 12:38-0500Body temperature 98.01 [degF]Raquel Nolan MD Work Phone: [facility] CenterKddjmhipzh49-14-6231 12:38-0500Body lhthti37.47 kgRaquel Nolan MD Work Phone: [facility] CenterJoxdqseyte00-73-0380 12:38-0500Diastolic blood pojnwloh96 mm[Hg]Raquel Nolan MD Work Phone: [facility] CenterAomxphnxwq66-15-2943 12:38-0500Heart rate69 /min Raquel Nolan MD Work Phone: [facility] CenterVxvsuadalf90-55-0313 12:38-7592TwZ6% (BldA) [Mass fraction]99 %Raquel Nolan MD Work Phone: [facility] CenterTncfyxpohf62-55-8719 12:38-0500Systolic blood xnssouik427 mm[Hg]Raquel Nolan MD Work Phone: [facility] CenterHjrsnbksrb30-64-4494 08:55-0500Diastolic blood ighyaiuq01 mm[Hg]Roque Harris [address] [place], [place] 2068912-16-2024 08:55-0500Heart rate53 /minRoque Harris [address] [place], [place] 2068912-16-2024 08:55-0500Mean blood fpnudyln04 mm[Hg]Roque Harris [address] [place], [place] 2068912-16-2024 08:55-0500 Respiratory rate15 /minRoque Harris [address]12-16-2024 08:55-5487TwJ9% (BldA) [Mass fraction]100 %Roque Harris [address]12-16-2024 08:55-0500 Systolic blood tkxhjkqi130 mm[Hg]Roque Harris [address]12-16-2024 07:19-0500Body vxdlaiktbmh03.24 [degF]Roque Harris [address] [place], [place] 2068912-16-2024 07:19-0500 Diastolic blood zyrppxph09 mm[Hg]Roque Harris [address]12-16-2024 07:19-0500Heart rate79 /Ricky Harris [address] [place], [place] 2068912-16-2024 07:19-0500 Respiratory rate16 /minRoque Harris [address] [place], [place] 2068912-16-2024 07:19-3616ZvE7% (BldA) [Mass fraction]100 %Roque Harris [address] [place], [place] 2068912-16-2024 07:19-0500 Systolic blood ucdkmjlu238 mm[Hg]Roque Harris [address]09-09-2024 15:16-0400Body mass index (BMI) [Ratio]27.58 kg/m2Amy Filemon PA Work Phone: [facility] CenterSzllrxeepg52-16-4851 15:16-0400Body qusivd72.28 kgNia Colbert PA Work Phone: [facility] CenterHqlcatvxok92-92-7713 15:16-0400Diastolic blood qedulqjp20 mm[Hg]Nia Colbert PA Work Phone: [facility] CenterOoccrutlky33-08-6628 15:16-0400Systolic blood wmbemzkk058 mm[Hg]Nia Colbert PA Work Phone: [facility] CenterNpdoedfoiv18-91-0784 23:53-0400Diastolic blood txzayncj33 mm[Hg]Kaylinn Dokken [facility]03-26-2024 23:53-0400Heart rate65 /minKaylinn Dokken [address]03-26-2024 23:53-0400Mean blood xyijctba27 mm[Hg]Kaylinn Dokken [facility]03-26-2024 23:53-0400 Respiratory rate16 /minKaylinn Dokken [facility]03-26-2024 23:53-9657FhS9% (BldA) [Mass fraction]98 %Kaylinn Dokken [address] [place], [place] 2068903-26-2024 23:53-0400 Systolic blood kacawtnb691 mm[Hg]Kaylinn Dokken [address] [place], [place] 2068903-26-2024 22:37-0400 Diastolic blood uyizsntc21 mm[Hg]Kaylinn Dokken [facility]03-26-2024 22:37-0400Heart rate62 /minKaylinn Dokken [address] [place], [place] 8601803-26-2024 22:37-0400Mean blood kjpznnea66 mm[Hg]Kaylinn Dokken [address] [place], [place] 8601803-26-2024 22:37-0400 Respiratory rate16 /minKaylinn Dokken [address] [place], [place] 8601803-26-2024 22:37-4436GiE7% (BldA) [Mass fraction]98 %Kaylinn Dokken [address] [place], [place] 8601803-26-2024 22:37-0400 Systolic blood pkdgqexb238 mm[Hg]Kaylinn Dokken [address] [place], [place] 8601803-26-2024 21:29-0400 Diastolic blood kqeukuhm63 mm[Hg]Kaylinn Dokken [address] [place], [place] 8601803-26-2024 21:29-0400Heart rate58 /minKaylinn Dokken [address] [place], [place] 8601803-26-2024 21:29-0400Mean blood wxsgjeqd73 mm[Hg]Kaylinn Dokken [address] [place], [place] 8601803-26-2024 21:29-0400 Respiratory rate16 /minKaylinn Dokken [address] [place], [place] 8601803-26-2024 21:29-3419WyF7% (BldA) [Mass fraction]99 %Kaylinn Dokken [address] [place], [place] 8601803-26-2024 21:29-0400 Systolic blood qkssxfye905 mm[Hg]Kaylinn Dokken [address] [place], [place] 8601803-26-2024 20:10-0400Heart rate61 /minKaylinn Dokken [address] [place], [place] 8601803-26-2024 19:25-0400Body qldwbxxsetl42.42 [degF]Awildainn Dokken [address] [place], [place] 8601803-26-2024 19:25-0400Heart rate62 /minKaylinn Dokken [address] [place], [place] 8601811-14-2023 07:05-0500 Diastolic blood fgoyoyti90 mm[Hg]Jacinto Maury [address] [place], [place] 8601811-14-2023 07:05-0500Heart rate58 /minNoah Maury [address] [place], [place] 8601811-14-2023 07:05-0500Mean blood xovhgopf84 mm[Hg]Jacinto Maury [address] [place], [place] 8601811-14-2023 07:05-0500 Respiratory rate18 /minNoah Maury [address] [place], [place] 8601811-14-2023 07:05-2150GuH2% (BldA) [Mass fraction]99 %Jacinto Maury [address] [place], [place] 2068911-14-2023 07:05-0500 Systolic blood jeihofst085 mm[Hg]Jacinto Maury [address] [place], [place] 2068911-14-2023 06:16-0500 Diastolic blood mm[Hg]Jacinto Maury [address] [place], [place] 2068911-14-2023 06:16-0500Heart rate81 /minNoah Maury [address] [place], [place] 2068911-14-2023 06:16-0500Mean blood ibxfjosp01 mm[Hg]Jacinto Maury [address] [place], [place] 8601811-14-2023 06:16-0500 Respiratory rate18 /minNoah Maury [address] [place], [place] 2068911-14-2023 06:16-0589OgV8% (BldA) [Mass fraction]99 %Jacinto Maury [address] [place], [place] 2068911-14-2023 06:16-0500 Systolic blood lnyavegu737 mm[Hg]Jacinto Maury [address] [place], [place] 8601811-14-2023 05:18-0500gluc 100 mg/dLNoah Maury [address] [place], [place] 8601811-14-2023 05:18-0500gluc Jacinto Maury [address] [place], [place] 8601811-14-2023 05:12-0500Body qzwaeuukdyr27.7 [degF]Jacinto Maury [address] [place], [place] 8601811-14-2023 05:12-0500 Diastolic blood dpucxfjw20 mm[Hg]Jacinto Maury [address] [place], [place] 8601811-14-2023 05:12-0500Heart rate73 /minNodana Maury [address] [place], [place] 8601811-14-2023 05:12-0500 Respiratory rate16 /minNodana Maury [address] [place], [place] 8601811-14-2023 05:12-8899FqX9% (BldA) [Mass fraction]98 %Jacinto Maury [address] [place], [place] 8601811-14-2023 05:12-0500 Systolic blood bfytekos610 mm[Hg]Jacinto Maury [address] [place], [place] 8601807-08-2022 13:50-0400Body bakupu208.3 cmJavier Gutierrez MD Work Phone: [facility]07-08-2022 13:50-0400Body temperature 96.69 [degF]Javier Gutierrez MD Work Phone: [facility]07-08-2022 13:50-0400Body .52 kgJavier Gutierrez MD Work Phone: [facility]07-08-2022 13:50-0400Diastolic blood mm[Hg]Javier Gutierrez MD Work Phone: [facility]07-08-2022 13:50-0400Heart rate67 /min Javier Gutierrez MD Work Phone: [facility]07-08-2022 13:50-7604WzF7% (BldA) [Mass fraction]98 %Javier Gutierrez MD Work Phone: [facility]07-08-2022 13:50-0400Systolic blood mm[Hg]Javier Gutierrez MD Work Phone: [facility]06-16-2022 02:53-0400Diastolic blood piftwvww16 mm[Hg]Awildainn Dokken [address]06-16-2022 02:53-0400Heart rate58 /minKaylinn Dokken [address]06-16-2022 02:53-0400 Hourly RoundingKaylinn Dokken [address] [place], [place] 2068906-16-2022 02:53-0400 Respiratory rate16 /minKaylinn Dokken [address] [place], [place] 2068906-16-2022 02:53-1742ZgA8% (BldA) [Mass fraction]100 %Kaylinn Dokken [address] [place], [place] 2068906-16-2022 02:53-0400 Systolic blood ucopvuws034 mm[Hg]Kaylinn Dokken [address]06-16-2022 01:45-0400 Diastolic blood fcvjokxr03 mm[Hg]Kaylinn Dokken [address] [place], [place] 8601806-16-2022 01:45-0400Heart rate61 /minKaylinn Dokken [address] [place], [place] 8601806-16-2022 01:45-0400 Hourly RoundingKaylinn Dokken [address] [place], [place] 8601806-16-2022 01:45-0400 Respiratory rate18 /minKaylinn Dokken [address] [place], [place] 8601806-16-2022 01:45-8479UsL9% (BldA) [Mass fraction]98 %Kaylinn Dokken [address] [place], [place] 8601806-16-2022 01:45-0400 Systolic blood zwlxibmj75 mm[Hg]Kaylinn Dokken [address] [place], [place] 8601806-16-2022 00:15-0400 Hourly RoundingKaylinn Dokken [address] [place], [place] 8601806-15-2022 23:50-0400Body ddygiemylqg54.88 [degF]Kaylinn Dokken [address] [place], [place] 8601806-15-2022 23:50-0400 Diastolic blood xzfopill28 mm[Hg]Kaylinn Dokken [address] [place], [place] 8601806-15-2022 23:50-0400Heart rate70 /minKaylinn Dokken [address] [place], [place] 8601806-15-2022 23:50-0400 Respiratory rate18 /minKaylinn Dokken [address] [place], [place] 8601806-15-2022 23:50-7029KiO8% (BldA) [Mass fraction]98 %Kaylinn Dokken [facility]06-15-2022 23:50-0400 Systolic blood smahoyvu089 mm[Hg]Amberly Whitehead [address] [place], [place] 2068906-15-2022 22:06-0400Body ejwbnsyheil84.06 [degF]Amberly Whitehead [facility]04-13-2022 16:39-0400 Diastolic blood ycpqhans66 mm[Hg][facility] 07-16-2021 16:39-0400Heart rate64 /[facility]04-13-2022 16:39-0400Mean blood kzahwshc41 mm[Hg][facility]04-13-2022 16:39-0400Respiratory rate16 /[facility]13-2022 16:39-3785BbB1% (BldA) [Mass fraction]99 %[facility]04-13-2022 16:39-0400Systolic blood eyjgpjjv298 mm[Hg][facility]04-13-2022 16:00-0400Hourly RoundingK[facility]04-13-2022 16:00-0400Promise to ReturnK[facility]04-13-2022 14:24-0400Body sehjvodcdny50.42 [degF][facility]04-13-2022 14:24-0400Diastolic blood zdoivhln35 mm[Hg][facility]04-13-2022 14:24-0400Heart rate67 /[facility]04-13-2022 14:24-0400Respiratory rate16 /min[facility]04-13-2022 14:24-9579CyN7% (BldA) [Mass fraction]99 %[facility]04-13-2022 14: Systolic blood unmqeakj972 mm[Hg][facility] Encounters Encounter DateEncounter TypeCare ProviderFacilityStart: 02-02-2025 End: 18-58-7465Vaoyqibly Result EncounterCorey Miryam DO Work Phone: [facility] External Department UnsolicitedStart: 02-02-2025 End: 22-63-6863Dopzlwgry Result EncounterCorey Miryam DO Work Phone: [facility] External Department UnsolicitedStart: 01-24-2025 End: 42-31-0188Nkvosf outpatient visit 15 minutesCorey Miryam DO Work Phone: [facility] OBGYNComment on above:Pre-operative exam; Menorrhagia with irregular cycle; Pelvic pain in female; Dysmenorrhea; Dyspareunia, femaleStart: 01-24-2025 End: 08-99-9230Zfjjjbwiymelo examination doneCorey Miryam CorCardia Work Phone: [facility] Zachary Prell Work Phone: Start: 01-24-2025 End: 85-95-1339irgublniseBXNGU FAZIONot AvailableStart: 12-18-2024 End: 01-56-6184Okplqsc encounter procedureNia GUILLEN Work Phone: [facility] Work Phone: Start: 12-18-2024 End: 52-72-9421Euqzjvyf preventive med est patient 18-39 yrsNia GUILLEN Work Phone: [facility] [place] OBGYNComment on above:Well woman exam with routine gynecological exam; UTI symptoms; Exposure to STD; Vaginal dischargeStart: 12-18-2024 End: 34-15-1552hwfpreueolPJO RAMEYNot AvailableStart: 12-18-2024 End: 67-93-2318Buvobz flowsheetNia GUILLEN Work Phone: [facility] OBGYNStart: 12-18-2024 End: 31-81-0839Dmrkrh flowsSarah Elcaitlyn GUILLEN Work Phone: [facility] OBGYNStart: 12-18-2024 End: 39-39-6493Qpgoslyba Result EncounterNia Elcaitlyn GUILLEN Work Phone: [facility] External Department UnsolicitedStart: 12-18-2024 End: 20-74-7260Crtfugrl Result EncounterNia Colbert WILMER Work Phone: [facility] External Department UnsolicitedStart: 12-06-2024 End: 40-42-7271ostsweivcjQVCHBPX A DONNAMILLERNot AvailableStart: 12-06-2024 End: 22-63-3178Xemfbx outpatient visit 15 minutesCherise Jaimes NP Work Phone: [facility]Comment on above:Acute diarrhea (Primary Dx); Nausea; Abdominal crampingStart: 09-26-2024 End: 28-75-6674Zjhpjs Autumn Nolan MD Work Phone: [facility] NE FMStart: 09-26-2024 End: 64-57-7892Misgwj Autumn Nolan MD Work Phone: [facility] NE FMStart: 09-26-2024 End: 90-74-0639Pvpnvn outpatient visit 15 minutesRaquel Nolan MD Work Phone: [facility] NE FMComment on above:Intractable episodic headache, unspecified headache type (Primary Dx); Nausea; Facial tingling; Overweight; BMI 27.0-27.9,adultStart: 09-26-2024 End: 79-66-4887fpxmczmmiwJTBMZMayank Lopez AvailableStart: 06-15-2024 End: 39-95-9326Fmjutawilson Nolan MD Work Phone: [facility] NE FMStart: 06-15-2024 End: 39-49-1794Apknqd Autumn Nolan MD Work Phone: [facility] NE FMStart: 06-15-2024 End: 04-39-8350Kidjco outpatient visit 25 minutesRaquel Nolan MD Work Phone: [facility] NE FMComment on above:Leukocytosis, unspecified type (Primary Dx); Gastroesophageal reflux disease, unspecified whether esophagitis present; BMI 26.0-26.9,adult; OverweightStart: 06-15-2024 End: 57-80-3325lnyhzonfipWSGEV M RUGGLESNot AvailableStart: 06-11-2024 End: 61-65-1847Kqosaeoef department patient visitElver ThomasFacility:FTMCStart: 04-15-2024 End: 55-50-4739Amolqdpql department patient visitNarinder Kumar [facility] Start: 04-12-2024 End: 06-65-1506rqqcazuntyWccuybvo Ana WarnerFacility:CC NorwalkStart: 04-12-2024 End: 23-78-4550Ubaowjp encounter procedurePatricia Ana Warner [phone]-NlaoyChillicothe [facility] Start: 03-22-2024 End: 18-00-6280Roiczc Autumn Nolan MD Work Phone: [facility] NE FMStart: 03-22-2024 End: 74-19-8135Stcdol Autumn Nolan MD Work Phone: [facility] NE FMStart: 03-22-2024 End: 36-07-9722Yxcuen outpatient visit 15 minutesRaquel Nolan MD Work Phone: [facility] NE FMComment on above:Acute cough (Primary Dx); Nausea; Nasal congestion; Ear fullness, bilateral; BMI 27.0-27.9,adult; OverweightStart: 03-22-2024 End: 80-48-2509tfxsqjzgyaHPWFN M RUGGLESNot AvailableStart: 03-20-2024 End: 01-75-2788Moaostvda department patient visitJohn ParenteFacility:FTMCStart: 03-15-2024 End: 36-02-6032nrnojvirzxMnmifgrp Ana DaviddnerFacility:FTMCStart: 12-22-2023 End: 43-65-6975Uiufqg flowsSarah GUILLEN Work Phone: [facility] BCP OBStart: 12-22-2023 End: 21-75-0307Mwhvtf flowsSarah GUILLEN Work Phone: [facility] BCP OBStart: 12-22-2023 End: 64-97-6418Lfuqfb outpatient visit 10 minutesNia GUILLEN Work Phone: [facility] BCP OBComment on above:Wellness examination (Primary Dx)Start: 12-22-2023 End: 28-76-8007Jkojihy encounter statusNia GUILLEN Work Phone: [facility] Work Phone: Start: 12-14-2023 End: 97-64-1248krcvuoodqcHIX L RAMEYFacility:FTMCStart: 12-14-2023 End: 21-98-6385Frtjrmw encounter procedureNIA COLBERT [facility] Start: 12-13-2023 End: 22-02-0198Ghaegkb encounter procedureNia GUILLEN Work Phone: [facility] Work Phone: Start: 12-13-2023 End: 03-31-1264Ungbfrna preventive med est patient 18-39 yrsNia GUILLEN Work Phone: [facility] BCP OBComment on above:Well woman exam with routine gynecological exam; PCOS (polycystic ovarian syndrome); NauseaStart: 12-13-2023 End: 63-20-3576Wfuqua flowsSarah GUILLEN Work Phone: [facility] BCP OBStart: 12-13-2023 End: 79-12-0592Agkbkhope Result EncounterNia Filemon GUILLEN Work Phone: noMS External Department UnsolicitedStart: 12-13-2023 End: 59-35-6697Nxmnijhnl Result EncounterNia Filemon GUILLEN Work Phone: no[facility] External Department UnsolicitedStart: 06-29-2023 End: 63-86-9562Tlmyhzgne department patient visitAmberly Whitehead [facility] Start: 02-16-2023 End: 34-15-8800Hgrfxbwna department patient visitJacinto SiegelElizabeth Maury [facility] Start: 12-18-2022 End: 23-11-7245Xszfuae encounter Travis Aguirre [facility] Start: 12-18-2022 End: 20-09-0534oxvlhrffyfGtyid M. DempseyFacility:FTPROVIDENCE TARZANA MEDICAL CENTERtart: 06-24-2022 End: 58-57-4053ijksjmoybySU SHAAN MIRYAM .Facility:D8Tqgfh: 83-75-9165Olzgtwywo for preprocedural cardiovascular examinationDR SHAAN MIRYAM .[facility]tart: 06-10-2022 End: 65-81-6128upiihshvvtHV SHAAN MIRYAM .Facility:Z0Bmbmk: 06-10-2022 End: 15-14-2964Nylhttgqb for preprocedural cardiovascular examinationDR SHAAN MIRYAM .Facility:A1Kygbp: 11-19-2021 End: 00-55-6645Bjjshxm encounter procedureMaher SALAM [phone]-UjcnnChillicothe Hospital [facility] Start: 10-18-2021 End: 87-94-1458tiitefwsbkWJ SHAAN MIRYAM .Facility:W5Qstrw: 82-63-5767qlnuroqspu DR SHAAN WITT .Facility:Z2Jlnur: 10-10-2021 End: 70-26-0037Jgsjyxt encounter procedureJavier Gutierrez MD Work Phone: GastroenterologyComment on above:Constipation, unspecified constipation type (Primary Dx)Start: 09-17-2021 End: 37-81-2752Fpcebtusc department patient visitAmberly Palm Dovandana [facility] Start: 08-07-2021 End: 57-02-9796Rdq Drop offSkarina MUNROE [facility] Start: 07-16-2021 End: 60-28-0892Hjmnebuoh department patient visitLucila Peters OllieLicking [facility] Hospital Start: 57-07-8505UcyitjfervLELDFB EHRENBERG [facility] Procedures DateProcedureProcedure DetailPerforming ClinicianStart: 26-72-9016TP CHEST 2V Shaan Dooleyo DO Work Phone: Start: 46-42-5879ZWO CBC WITH AUTO DIFFCorey Miryam DO Work Phone: Start: 62-01-3836VZSODJNNQ VAGINITIS (HTRX)Nia GUILLEN Work Phone: Start: 19-08-6107Bwkhv dip stick/tablet rgnt non-auto w/o micrscpAmy Filemon GUILLEN Work Phone: Start: 53-99-2055PED,APTIMA HPV,AGE GDRichard GUILLEN Work Phone: Start: 03-52-5879ZJV,APTIMA HPV,AGE Catherine GUILLEN Work Phone: Start: 64-27-0376Xyarsswer of intrauterine contraceptive deviceAstrit HajdariLigation of fallopian tubeNodana Mendiola Plan of Treatment DateCare ActivityDetailAuthorStart: 12-25-2025 End: 51-12-8059Ttqpiqi encounter /22/2026 3:00 PM EDT Procedure Visit [facility] [address] [place] [address] Nia Colbert PA [address] [place] [address] [facility] OBGYNStart: 01-24-2025 End: 81-81-4990Xlvayro encounter vizkespwy51/22/2025 11:10 AM EDT Consult NOMChristal [facility] [address] [place] [address] Shaan Witt DO [address] [place] [address] [facility] OBGYNStart: 01-24-2025 End: 82-72-0584Yrbzhwcavcsk / ancillary services icbhxmnhvq71/22/2025 10:00 AM EDT Ancillary Procedure [facility] HARDYGYN [address] [place] [address] [facility] OBGYNStart: 12-18-2024 End: 77-67-0306Smpqsjm encounter procedureNOMS BCP OBComment on above:Arrived Start: 32-08-0837Lrkuhutoj vaccinationNOMS HealthcareStart: 09-26-2024 End: 88-68-3384Ezmftig encounter lovvktadm25/24/2025 12:40 PM EDT Office Visit [facility] [address] [place] [id number] [phone], Hanna M, MD [address] [place] [address] ArrivedNOMS NE FMComment on above:ArrivedStart: 06-15-2024 End: 21-26-5328IXX W Auto Differential panel - BloodCBC and differential Lab Routine Leukocytosis, unspecified type Expected: 06/15/2024 (Approximate), Expires: 06/15/2025[facility] Work Phone: comment on above:Expected: 06/15/2024 (Approximate), Expires: 06/15/2025Start: 06-15-2024 End: 58-92-0048Fbmwvxy encounter twwawtuxc18/13/2025 10:40 AM EDT Office Visit [facility] [address] [place] [address] Ngatosr, Hanna M, MD [address] [place] [address] ArrivedNOSC NE FMComment on above:ArrivedStart: 03-22-2024 End: 97-68-5128Qjordsb encounter ccjlrjasu39/18/2024 12:40 PM EST Office Visit [facility] [address] [place] [address] Kgtrgnx, Hanna M, MD [address] [place] [address] ArrivedNOSC NE FMComment on above:ArrivedStart: 12-13-2023 End: 42-78-3648Mjpdvno encounter basfpymdv13/09/2024 3:00 PM EDT Office Visit [facility] OB [address] [place] [address] Nia Colbert PA [address] [place] [address] ArrivedNOSC BCP OBComment on above:ArrivedStart: 12-13-2023 End: 37-74-3665Mxdtqv [Enzymatic activity/volume] in Serum or PlasmaLipase Lab Routine Well woman exam with routine gynecological exam PCOS (polycystic ovarian syndrome) Expected: 12/13/2023 (Approximate), Expires: 12/12/2024[facility] Comment on above:Expected: 12/13/2023 (Approximate), Expires: 12/12/2024Start: 12-13-2023 End: 59-50-4491Mxuon 1996 panel - Serum or PlasmaLipid panel Lab Routine Well woman exam with routine gynecological exam PCOS (polycystic ovarian syndrome) Expected: 12/13/2023 (Approximate), Expires: 12/12/2024[facility] HealthcareComment on above:Expected: 12/13/2023 (Approximate), Expires: 12/12/2024Start: 12-05-2023 Influenza vaccinationInfluenza Vaccine (#1)[facility] HealthcareStart: 12-04-2021 Influenza vaccinationINFLUENZA (#1)[facility]: 15-74-7812DBT TESTING PAP TESTINGKettering Health Daytontart: 73-31-5520Mxuei microalbumin profile DTAP,TDAP,TD (1 - Tdap)[facility]: 91-96-8704VHQZLOGDF SCREENING (18-24)CHLAMYDIA SCREENING (18-24)[facility]: 18-34-6244BQ (GONORRHEA) SCREENING (18-24)GC (GONORRHEA) SCREENING (18-24)[facility] Start: 86-58-7027PSPXDZNJY C SCREENINGHEPATITIS C SCREENINGMet[facility]health Main Campus [facility] Center Start: 58-94-7666UDF SCREENINGHIV SCREENINGKettering Health Daytontart: 32-45-3881SZSJ TO ADULT TRANSITION ANNUAL ASSESSMENTPEDS TO ADULT TRANSITION ANNUAL ASSESSMENT [facility]: 51-12-7732Ibput depression screening assessmentDEPRESSION SCREENINGKettering Health Daytontart: 24-22-7553CJPK TO ADULT TRANSITION INITIAL DISCUSSIONPEDS TO ADULT TRANSITION INITIAL DISCUSSIONKettering Health Daytontart: 79-94-3273WCU VACCINE (1 - 2-dose series)HPV VACCINE (1 - 2-dose series) [facility]: 68-01-5020MUUDDXBOEAWER B: Consider based on risk (1 of 2 - Risk Bexsero 2-dose series)MENINGOCOCCAL B: Consider based on risk (1 of 2 - Risk Bexsero 2-dose series)[facility]: 52-84-8633IDVSFNQLJONL (1 - PCV)PNEUMOCOCCAL (1 - PCV)[facility]: 24-01-9515AEQUK-19 VACCINE (#1) COVID-19 VACCINE (#1)[facility] End: 62-03-6475SKDGU [place] ANORECTAL MANOMETRYADULT [place] ANORECTAL MANOMETRY Endoscopy Routine Constipation, unspecified constipation type 1 Occurrences starting 10/10/2021 until 10/10/2022[facility] Work Phone: Comment on above:1 Occurrences starting 10/10/2021 until 10/10/2022BC W Auto Differential panel - BloodCBC and differential Lab Routine Well woman exam with routine gynecological exam PCOS (polycystic ovarian syndrome) Ordered: 12/13/2023[facility] HealthcareComment on above:Ordered: 12/13/2023 CHLAMYDIA TRACHOMATIS (GENITO/STI)CHLAMYDIA TRACHOMATIS (GENITO/STI) Lab Routine Vaginal discharge Ordered: 12/18/2024[facility] HealthcareComment on above:Ordered: 12/18/2024omprehensive metabolic 2000 panel - Serum or PlasmaComprehensive metabolic panel Lab Routine Well woman exam with routine gynecological exam PCOS (polycystic ovarian syndrome) Ordered: 12/13/2023[facility] HealthcareComment on above:Ordered: 4Cytology Cervical or vaginal smear or scraping studyPap Smear Pathology and Cytology Routine Well woman exam with routine gynecological exam Ordered: 12/13/2023[facility] Work Phone: comment on above:Ordered: ytology Cervical or vaginal smear or scraping studyPap Smear Pathology and Cytology Routine Well woman exam with routine gynecological exam Ordered: 12/18/2024[facility] Work Phone: comment on above:Ordered: 12/18/2024Hemoglobin A1c/Hemoglobin.total in BloodHemoglobin A1c Lab Routine Well woman exam with routine gynecological exam PCOS (polycystic ovariansyndrome) Ordered: 12/13/2023 [facility] HealthcareComment on above:Ordered: 12/13/2023Neisseria gonorrhoeae DNA [Presence] in Unspecified specimen by PRASHANT with probe detectionNeisseria gonorrhea DNA probe, direct Lab Routine Vaginal discharge Ordered: 12/18/2024 [facility] HealthcareComment on above:Ordered: 12/18/2024SURESWAB(R) ADVANCED VAGINITIS PLUS, TMASURESWAB(R) ADVANCED VAGINITIS PLUS, TMA Pathology and Cytology Routine Exposure to STD Ordered: 12/18/2024[facility] HealthcareComment on above:Ordered: 12/18/2024Thyrotropin [Units/volume] in Serum or PlasmaTSH Lab Routine Well woman exam with routine gynecological exam PCOS (polycystic ovarian syndrome) Ordered: 12/13/2023[facility] HealthcareComment on above:Ordered: [facility] Immunizations Immunization DateImmunizationNotesCare BfhfroyfAqmjseho36-68-6635adrvjgh toxoid, reduced diphtheria toxoid, and acellular pertussis vaccine, adsorbedAmy Filemon GUILLEN Work Phone: [facility] CenterAppqmeutsk70-84-1417jdyawtc toxoid, unspecified formulationChrist Hospitalit [facility] Anne HospitalComment on above:Result Comment: Done at Health DepartmentResult Comment: Done at Health Department 84-31-8962favqidm toxoid, reduced diphtheria toxoid, and acellular pertussis vaccine, adsorbedMaher SALAM 886-1502Hpknqs-DshrwCh[facility]ic[facility] 10-417976-47-5374nrkyavckj A vaccine, unspecified formulation Aguilar SALAM 529-3672Rlghtt-AcjceChillicothe [facility] 10-426738-06-6097BPO, unspecified formulationMaher SALAM 538-1993Pvmwmd-XjnidChillicothe [facility] 10-357616-20-6646qkourftqakttm B vaccine, fully recombinant Aguilar SALAM 272-5892Fpjmnt-GrdubChillic[facility] 08-812092-95-2763FTH, unspecified formulationMaher SALAM 379-8739Tdfide-FfwmkCh[facility]ic[facility] 09803045-78-8291ppdmzurvknsuz ACWY vaccine, unspecified formulationMaher SALAM 862-2567Fyitkb-BnukoChillicothe [facility] 09-747230-12-8044qzknxhglgpsjv polysaccharide (groups A, C, Y and W-135) diphtheria toxoid conjugate vaccine (MCV4P)Nia GUILLEN Work Phone: [facility] CenterEorbuyxixj90-90-8593hkkafvz toxoid, reduced diphtheria toxoid, and acellular pertussis vaccine, adsorbedMaher SALAM 995-5998Erqvvo-KkvrvChillic[facility] 11839239-06-0168taewf wwzqcinqr-P9U3-68, preservative-free, injectableNia GUILLEN Work Phone: [facility] CenterUhyddmfnah44-66-5066ipsubcerin, tetanus toxoids and acellular pertussis vaccineNia GUILLEN Work Phone: [facility] CenterFbbmmprpvk23-78-0614prnuzdzgoq, tetanus toxoids and acellular pertussis vaccine, unspecified formulationNia GUILLEN Work Phone: [facility] CenterXtvudzyhln60-07-3122UGsA, unspecified formulation Aguilar SALAM 528-3494Lvofwj-FookyChillic[facility] 10331412-66-7226osbtkll, mumps and rubella virus vaccineWyher SALAM 577-6750Sxleiu-OsfxwCh[facility]ic[facility] 10935554-99-3700marpworquy vaccine, unspecified formulation Nia GUILLEN Work Phone: [facility] CenterVasjnimpsj34-79-1859sicvsouzmqbb conjugate vaccine, 7 valSaad GUILLEN Work Phone: [facility] CenterIvkqosiqgm07-91-7409xryxgdinwfcq conjugate vaccine, 7 valSaad GUILLEN Work Phone: [facility] CenterNjcxpbyefw81-05-1118kmbhhxtomx, tetanus toxoids and acellular pertussis vaccineNia GUILLEN Work Phone: [facility] CenterNzbifwxepn49-29-7103ltpxvbfunr, tetanus toxoids and acellular pertussis vaccine, unspecified formulationNia GUILLEN Work Phone: [facility] CenterNtadwbuewa14-99-5745IAkN, unspecified formulation Aguilar SALAM 927-2169Kkturv-AsrryChillicothe Hospital [facility] 534072-66-0527qmtcczjzvkq influenzae type b vaccine, PRP- OMP conjugateMaher SALAM 387-5746Vxpkwi-QvabxChillicothe Hospital [facility] 09549775-37-2804kwrovog, mumps and rubella virus vaccineMaher SALAM 083-2596Dmjpss-XycnaChillicothe [facility] 09692410-51-9847qmusffjjjo vaccine, inactivatedAmy Filemon GUILLEN Work Phone: [facility] CenterRsxovflhga70-91-9986ruxrkbhvuq vaccine, unspecified formulationWyher SALAM 421-4148Ibmqne-FmycbChillicothe Hospital [facility] 887908-28-1096zuvdlunoqn, tetanus toxoids and acellular pertussis vaccineNia GUILLEN Work Phone: [facility] CenterTncrasmodv93-62-7814fzvsmitbcl, tetanus toxoids and acellular pertussis vaccine, unspecified formulationNia GUILLEN Work Phone: [facility] CenterDzvyawvhbh51-45-2668HYiQ, unspecified formulation Aguilar SALAM 581-5833Hwbvmw-NomnoChillicothe Hospital [facility] 043884-72-8183dypvbnbhfdd influenzae type b vaccine, PRP- OMP conjugateMaher SALAM 884-9019Affuhv-LauzrChillicothe Hospital [facility] 01-403774-12-5984wsaplhmsd B vaccine, pediatric or pediatric/adolescent dosageMaher SALAM 442-3599Wqhefm-ZloqlChillic[facility] 243597-21-6415aixqufuowy, tetanus toxoids and acellular pertussis vaccineAmy Filemon GUILLEN Work Phone: [facility] CenterKlgqeblvvj67-78-3799jtflizcabq, tetanus toxoids and acellular pertussis vaccine, unspecified formulationAmy Filemon PA Work Phone: [facility] CenterJxykhtcwfu15-53-3764FXrI, unspecified formulation Aguilar SALAM 359-0623Ujchdi-GhmyhChillicothe Hospital [facility] 11498747-89-0621qmaksychxql influenzae type b vaccine, PRP- OMP conjugateMaher SALAM 910-7385Nuwtib-XavqvChillicothe Hospital [facility] 4-947755-25062345-67-8126lzkwwlqkbo vaccine, inactivatedAmy Filemon PA Work Phone: [facility] CenterLlbdrepglo43-73-6384jzekoweann vaccine, unspecified formulationMaher SALAM 763-9421Mjyrac-RbstsChillicothe Hospital [facility] 412972-79-1679kccqjbjlng, tetanus toxoids and acellular pertussis vaccineAmy [place] PA Work Phone: [facility] CenterMgyymifdhk35-02-9141tyzxmcklua, tetanus toxoids and acellular pertussis vaccine, unspecified formulationAmy [place] PA Work Phone: [facility] CenterWethfsuqmz31-64-9788HJxU, unspecified formulation Aguilar SALAM 118-5970Hqdteu-UibgiChillicothe Hospital [facility] 09760961-63-3743aldfvuwrqlo influenzae type b vaccine, PRP- OMP conjugateMaher SALAM 133-9486Ukjyod-FfmnzChillicothe Hospital [facility] 09337949-41-1862cezwbnyms B vaccine, pediatric or pediatric/adolescent dosageMaher SALAM 752-8880Gzkjyv-NiwddChillicothe Hospital [facility] 09807995-57-6963qsrxljrjcw vaccine, inactivatedAmy [place] PA Work Phone: [facility] CenterUcbiespvfj68-92-9603yttcbamkjx vaccine, unspecified formulationMaher SALAM 282-7940Xvskvf-MjlxwChillicothe Hospital [facility] 107543-26-7681rwajxxsia B vaccine, pediatric or pediatric/adolescent dosageMaher SALAM 863-9889Gzmuam-NfyikChillicothe Hospital [facility] NEGATED: Highlighted row has not occurred!03-21-2019 influenza virus vaccine, live, attenuated, for intranasal useAstrit Ollie [facility] Payers DatePayer CategoryPayerPolicy [id number] [id number] [facility] [id number] 2023- [phone] [address] [place] [address] [id number] Medicaid[place] MEDICAID [place] MED[place] [id number] 2017-Present [phone] [address] [place] [address] [id number] [id number] 2.16.840.1.981669.3.57[id number] .16.840.1.890253.3.579.[id number] 2.16.840.1.877113.3.57[id number] 2.16.840.1.796614.3.57[id number] 2.16.840.1.617983.3.57[id number] 2.16.840.1.488905.3.57[id number] 2.16840.1.130367.3.57[id number] 2.16840.1.301095.3.57[id number] 2.16840.1.022722.3.57[id number] 2.16840.1.047755.3.57[id number] 2.16840.1.148154.3.57[id number] 2.16.840.1.253201.3.579.2.[id number] 2.16840.1.056619.3.57[id number] 2.16.840.1.604913.3.57[id number] 2.16840.1.709673.3.579.2.45863-90-3545Nkxgqid62698454 2.16.840.1.499367.3.579.2.68804-22-2113Sjqgfpb47471292 2.16.840.1.533458.3.579.2.81556-93-8260Ldhptdj12201873 2.16.840.1.890429.3.579.2.68981-85-9701Nzumzea06255053 2.16.840.1.716468.3.579.2.475291-19-8761Huxujrt98493672 2.16.840.1.304787.3.579.2.949[id number] 2.16.840.1.555734.3.579.2.3[id number] 2.16.840.1.505057.3.579.[id number] 2.16.840.1.105492.3.579.2.539626-69-7393Mfwgswp5467766 2.16.840.1.815675.3.579.2.786703-73-2193Qekeaqi1924577 2.16.840.1.790727.3.579.2.965320-59-4305Jzym-zet1[id number] Social History DateTypeDetailFacilityTobaccoCurrent every day smokerLicking Memorial HospitalComment on above:currentcurrentStart: 08-27-2023 End: 29-09-0022Hdh Assigned At BirthFeCleveland Clinic Lutheran Hospitaltart: 54-26-0319Ntjuken smoking status NHISOccasional tobacco smokerMetrohealth Main Campus Medical Center History of tobacco useCigarette SmokerKettering Health Daytontart: 10-10-2021 End: 78-29-8426Ckqpyrvmfc smoked current (pack per day) - Xhrtmgwc9IETM HealthcareStart: 53-09-0615Qgcrykd intakeEx-drinker (finding)[facility] Start: 72-50-0577Gdigkwm Commentsmokes 1 packs every 2 daysMetrohealth Main Campus Medical Center Start: 88-38-1547Phj Assigned At BirthNot on fileKettering Health Daytontart: 12-18-2022 End: 01-75-0577Vmwucrq smoking statusLight tobacco smoker (finding)[facility] CareComment on above:currentTobacco smoking statusNo Smoking Status EnteredUniversity Hospitals St. John Medical Centertart: 09-14-2022 End: 45-93-3647Yfsqeuu smoking status NHISSmokes tobacco dailyNOMS Healthcare Start: 09-14-2022 End: 60-39-8313Yeuabko use and exposureSmokeless tobacco non-userNOMS Healthcare Start: 12-13-2023 End: 08-11-7334Ptgmhfckw beverage intakeLifetime non-drinker (finding)[facility] CenterStart: 83-03-0198Jrgizjl CommentCaffeine intake: occasionalNOMS HealthcareStart: 11-92-6317TflJfczewZNWL Healthcare Functional Status HpbkJjtloaaxagKdltbdSphqmali87-86-4588Oplnohd Health Questionnaire 2 item (PHQ- 2) [Reported][facility] CenterSazwxrrdtp82-98-8536Dmctstnusu StatusN/[facility]01-08-2025Functional StatusN/[facility] 52-47-5944Vydzqiycuq StatusN/[facility]03-26-2024Functional StatusN/[facility]11-14-2023Functional StatusN/[facility]06-15-2022Functional StatusN/[facility] Clinical Notes 07-16-2021 to 01-24-2025 Note Date & ZprdVraiNylcdvmu94-29-5046 History of Present illness Narrative* Krista Nazia - 01/24/2025 11:10 AM EDT Reason for Appointment: Patient ID: Socorro Joseph is a 24 y.o. female who presents for Pre-op Visit Patient presents today for Pre Op appointment. Patient is scheduled to undergo [facility] assisted Laparoscopic Hysterectomy, possible exploratory laparotomy, possible BSO, possible cystoscopy on 02/19/[address] Witt at [facility]. MEDICATIONS Current Outpatient Medications Medication Instructions famotidine [...] II, CUONG III History of being hospitalized [facility] [place] inflammation of stomach and ovarian cyst [...] ENDOMETRIAL ABLATION 02/05/2023 PAP SMEAR 08/12/2021 negative [place] SALPINGECTOMY COMPLETE/PARTIAL UNI/BI SPX 06/24/2022 robotic, fulguration [...] nursing note reviewed. Exam conducted with a job boss present. Vitals: Estimated body mass index is [...] cystoscopy on 02/19/2025. Surgical consents were signed, [facility] was reviewed, and patient is to proceed to [facility] OR. Follow Up: Patient is to follow up at 1 & 6 weeks post operative to assess proper healing and recovery from procedure. Documented by Debi Nunez LPN on behalf of: Shaan Witt DO documented in this encounterMissouri Baptist Medical CenterVidqecntjf99-41-9357 History of Present illness Narrative* WILMER Hernandez [...] II, CUONG III History of being hospitalized [facility] [place] inflammation of stomach and ovarian cyst [...] ENDOMETRIAL ABLATION 02/05/2023 PAP SMEAR 08/12/2021 negative [place] SALPINGECTOMY COMPLETE/PARTIAL UNI/BI SPX 06/24/2022 robotic, fulguration [...] nursing note reviewed. Exam conducted with a job boss present. Vitals: Estimated body mass index is [...] behalf of: WILMER Hernandez documented in this encounterMissouri Baptist Medical CenterYcsjnyiafn41-28-0069 History of Present illness Narrative* Cherise Jaimes [...] sub stitutions have occurred. documented in this encounterMissouri Baptist Medical CenterAhqkmaovhp01-16-6865 History of Present illness Narrative* Raquel Nolan [...] imaging if sx persist. documented in this encounterMissouri Baptist Medical CenterFehbafzauh77-25-7550 History of Present illness Narrative* Raquel Nolan [...] Flowsheet Row Office Visit from 06/15/2024 [facility] with Raquel Nolan MD Hospital Information ED, Hospital or Nursing Home Facility Discharge? ED Patient has been contacted within 2 days of being seen in the ED Yes Diagnosis Virus Discharge Date 06/11/24 Discharged To: Home Setting Discharge Hospital [facility] Engagement Admission Date 06/11/24 Medications Discharge [...] or fail to improve. documented in this encounterMissouri Baptist Medical CenterCwwiqfznfq06-75-2411 NoteED Patient Education Note Gastroenterology Viral Gastroenteritis, [...] than 2 years. ??? Live in a assisted. ??? Travel on cruise ships. What are [...] and water are not available, use hand sweatband maker. ??? Make sure that all people in your household wash their hands well and often. ??? Take bmaf-ihf-zlfbsnx and prescription medicines only as told by [...] emergency. Get help right (more content not included)...[facility]01-12-2025 Evaluation + Plan note Extracted from:Title:ED NoteAuthor:Narinder Kumar DODate:04/16/24 Abdominal pain, acute, epiga stric (R10.13: Epigastric pain) N&V (nausea and vomiting) (R11.2: Nausea with vomiting, unspecified) Orders: dicyclomine, 10 mg = 1 cap(s), Oral, QID, PRN Nausea/Vomiting, For abdominal cramping, # 16 cap(s),Refills(s) 0, Pharmacy: [facility], 177, cm, 04/15/24 21:15:00 [...] PRN Nausea/Vomiting, # 12 tab(s), Refills(s) 0, Pharmacy:[facility], 177, cm, 04/15/24 21:15:00 [...] CT Abdomen/Pelvis w/ Contrast eGFR Lipase Level [facility] 01-12-2025 Hospital Discharge instructions Patient Education [...] Follow these instructions at home: Medicines Take alsb-peb-bnauybz and prescription medicines only as told by [...] provider. Document Revised: 01/06/2023 Document Reviewed: 01/06/2023 [employer] Patient Education 2023 [employer]riefs. Follow Up Care 04/15/2024 20:34:28 With:Raquel Nolan Address: [address] [place] [address]- [facility] (1) When:04/19/2024 Comments:Call the office of your [...] you develop any new or worsening symptoms. [facility] 01-12-2025 NoteED Patient Education Note Gastroenterology [...] these instructions at home: Medicines ??? Take maeb-qiq-sknigyo and prescription medicines only as told by [...] provider. Document Revised: 01/06/2023 Document Reviewed: 01/06/2023 Else[employer]de[employer] Patient Education ? 2023 [employer]Briefs.[facility] 04-12-2024 Hospital Discharge instructions Patient Education 04/12/2024 18:34:01 Influenza, Adult, Xzvj-jk-Ebca Influenza, Adult Influenza is also called the [...] Your doctor may want you to: Take bkwq-ekx-rhttter medicines. Drink plenty of fluids. The flu [...] foods include: ?Bananas. ?Applesauce. ?Rice. ?Lean meats. ?Lehr. ?Crackers. Do not eat or drink: ?Fluids that have a lot of sugar or caffeine. ?Alcohol. ?Spicy or fatty foods. General instructions Take vsxq-pid-cbyqvqj and prescription medicines only as told by [...] use soap and water, use alcohol-based hand sweatband maker. Keep all follow-up visits. How is this [...] spreads easily from person to person. Take umzz-atq-rmaskaj and prescription medicines only as told by your doctor. Getting a flu shot every year is the best way to not get the flu. This information is not intended to replace advice given to you by your health care provider. Make sure you discuss any questions you have with your health care provider. Document Revised: 11/06/2020 Document Reviewed: 11/08/2020 [employer] Patient Education 2023 [employer]Briefs. Follow Up Care 04/12/2024 13:30:03 With:Raquel Nolan MD Address: [place] [address]- When: Unknown [facility] 01-08-2025 NotePatient Education Infectious [...] doctor may want you to: ??? Take bpst-jen-xhjkveh medicines. ??? Drink plenty of fluids. The [...] Applesauce. ? Rice. ? Lean meats. ? Lehr. ? Crackers. ??? Do not eat or drink: ? Fluids that have a lot of sugar or caffeine. ? Alcohol. ? Spicy or fatty foods. General instructions ??? Take maiy-xxz-vpbuedj and prescription medicines only as told by [...] use soap and water, use alcohol-based hand sweatband maker. ??? Keep all follow-up visits. How is [...] the [place] ??? Do (more content not included)...[facility]12-18-2024 History of Present illness Narrative* Raquel Nolan [...] timestamp. Flowsheet Row Documentation [place] 03[place]21/2024 in [facility] [place] 2[place] with Amanda Rogers MA Hospital Information ED, Hospital or Nursing Home Facility Discharge? ED Patient has been contacted within 1 week of being seen in the ED Yes Discharge Date 03/20/24 Discharged To: Home Setting Discharge Hospital [facility] Engagement Admission Date 03/20/24 Medications Discharge [...] or fail to improve. documented in this encounterMissouri Baptist Medical CenterAmjrwskcvf62-21-1525 Hospital Discharge instructions Patient Education 03/20/2024 09:23:47 [...] Follow these instructions at home: Medicines Take lgyy-vkv-giemfox and prescription medicines only as told by [...] provider. Document Revised: 11/20/2022 Document Reviewed: 11/20/2022 [employer] Patient Education 2023 [employer]riefs. 03/20/2024 09:23:47 Abdominal Pain, Adult Abdominal Pain, [...] Follow these instructions at home: Medicines Take gzxm-itc-pxgtvrc and prescription medicines only as told by [...] provider. Document Revised: 01/06/2023 Document Reviewed: 01/06/2023 [employer] Patient Education 2023 [employer] Follow Up Care 03/20/2024 07:17:55 With:Raquel Nolan Address: [place] [address]- Business (1) When:03/23/2024 09:16:32 [facility] 12-16-2024 NoteED Patient Education Note ENT [...] these instructions at home: Medicines ??? Take nuqg-qtn-xvxucxm and prescription medicines only as told by [...] provider. Document Revised: 11/20/2022 Document Reviewed: 11/20/2022 [employer] Patient Education ? 2023 [employer]Briefs. Gastroenterology Abdominal Pain, Adult Pain in the [...] these instructions at home: Medicines ??? Take bvwr-bur-rziawpa and prescription medicines only as told by [...] you discuss any qu (more content not included)...[facility]12-11-2024 NotePatient Education ENT Cough, Adult A cough [...] these instructions at home: Medicines ??? Take fgbn-ito-zzorhhc and prescription medicines only as told by [...] provider. Document Revised: 11/20/2022 Document Reviewed: 11/20/2022 [employer] Patient Education ? 2023 [employer] Infectious Disease Viral Respiratory Infection A [...] home: Managing pain and congestion ??? Take xnpb-hfn-dnsqrze and prescription medicines only as told by [...] How is this pr (more content not included)...[facility] 12-22-2023 History of Present illness Narrative* WILMER Hernandez - 12/22/2023 10:30 AM EDT Reason for Appointment: Patient ID: Socorro Joseph is a 23 y.o. female who presents for No chief complaint on file. Patient presents today via telephone call for a telehealth appointment. Patients Phone #: [phone] (mobile) Current Medications: has a current medication list which includes the following prescription(s): albuterol hfa, ibuprofen, metformin, ondansetron, and ondansetron odt. Medical History: Active Ambulatory Problems Diagnosis Date Noted Depression ([facility]) 09/14/2022 CUONG II (cervical intraepithelial neoplasia II) 09/24/2022 Colitis 09/24/2022 Constipation 09/24/2022 Nausea 09/24/2022 Mechanical complication of intrauterine contraceptive device 09/24/2022 Moderate episode of recurrent major depressive disorder (HCC) ([facility]) 09/24/2022 Pelvic and perineal pain 09/24/2022 Cigarette [...] hospitalized History of cervical dysplasia Post depression ([facility]) Smoker Family History Problem Relation Name Age [...] ENDOMETRIAL ABLATION 02/05/2023 PAP SMEAR 08/12/2021 negative [place] SALPINGECTOMY COMPLETE/PARTIAL UNI/BI SPX 06/24/2022 robotic, fulguration [...] for a telehealth appointment. Patients Phone #: [phone] (mobile) Current Medications: has a current medication [...] ENDOMETRIAL ABLATION 02/05/2023 PAP SMEAR 08/12/2021 negative [place] SALPINGECTOMY COMPLETE/PARTIAL UNI/BI SPX 06/24/2022 robotic, fulguration [...] behalf of: WILMER Hernandez documented in this encounterMiss[facility] [id number] History of Present illness Narrative* WILMER Hernandez - 12/13/2023 3:00 PM EDT Reason for Appointment: Patient ID: Socorro Joseph is a 23 y.o. female who presents for [facility] Women Visit Patient presents today for Annual [...] episode of recurrent major depressive disorder (HCC) ([facility]) 09/24/2022 Pelvic and perineal pain 09/24/2022 Cigarette [...] hospitalized History of cervical dysplasia Post depression ([facility]) Smoker HISTORY PAST MEDICAL HISTORY SOCIAL HISTORY Past Medical History: Diagnosis Date Constipation History of abnormal cervical Pap smear Colpo: CUONG II; Leep - CUONG II, CUONG III History of being hospitalized [facility] [place] inflammation of stomach and ovarian cyst pain History of cervical dysplasia Pelvic and perineal pain Post depression ([facility]) Smoker Social History Tobacco Use Smoking status: [...] ENDOMETRIAL ABLATION 02/05/2023 PAP SMEAR 08/12/2021 negative [place] SALPINGECTOMY COMPLETE/PARTIAL UNI/BI SPX 06/24/2022 robotic, fulguration [...] nursing note reviewed. Exam conducted with a job boss present. Vitals: Estimated body mass index is [...] behalf of: WILMER Hernandez documented in this encounterNOMS [id number] Hospital Discharge instructions Patient Education 06/30/2023 00:02:57 Nausea and Vomiting, Adult, Kxhv-ej-Dobv Nausea and Vomiting, Adult Nausea is feeling [...] fruit juice). ?Low-calorie sports drinks. Eat bland, zsji-yk-sgdqes foods in small amounts as you are able, such as: ?Bananas. ?Applesauce. ?Rice. ?Low-fat (lean) meats. ?Lehr. ?Crackers. Avoid drinking fluids that have a lot of sugar or caffeine in them. This includes energy drinks, sports drinks, and soda. Avoid alcohol. Avoid spicy or fatty foods. General instructions Take nfmf-ttf-ngckncr and prescription medicines only as told by your doctor. Drink enough fluid to keep your pee (urine) pale yellow. Wash your hands often with soap and water for at least 20 seconds. If you cannot use soap and water, use hand sweatband maker. Make sure that everyone in your home [...] your doctor about eating and drinking. Take ocgv-vnn-iawyusa and prescription medicines only as told by your doctor. Contact your doctor if your symptoms get worse or you have new symptoms. Keep all follow-up visits. This information is not intended to replace advice given to you by your health care provider. Make sure you discuss any questions you have with your health care provider. Document Revised: 09/26/2021 Document Reviewed: 09/26/2021 [employer] Patient Education 2022 [employer]. 06/30/2023 00:02:57 General Headache Without Cause, Kxhc-bq-Mnrj General Headache Without Cause A headache is pain or discomfort you feel around the head or neck area. There are many causes and types of headaches. In some cases, the cause may not be found. Follow these instructions at home: Watch your condition for any changes. Let your doctor know about them. Take these steps to help with your condition: Managing pain Take cmac-bgs-ovsxzct and prescription medicines only as told by [...] away. Call your local emergency services ([address] [facility] [place] Do not wait to see [...] provider. Document Revised: 08/20/2021 Document Reviewed: 08/20/2021 [employer] Patient Education 2022 [employer] 06/30/2023 00:02:57 Abdominal Pain, Adult, Gssn-vx-Elug Abdominal Pain, Adult Many things can cause belly (abdominal) pain. Most times, belly pain is not dangerous. Many cases of belly pain can be watched and treated at home. Sometimes, though, belly pain is serious. Your doctor will try to find the cause of your belly pain. Follow these instructions at home: Medicines Take rsvd-hiz-ypaxjgr and prescription medicines only as told by [...] your belly pain for any changes. Take zwsw-ggf-aobhbjo and prescription medicines only as told by [...] provider. Document Revised: 07/31/2019 Document Reviewed: 07/31/2019 [employer] Patient Education 2022 [employer]. Follow Up Care 06/29/2023 19:12:13 With:Raquel Nolan Address: [address] [place] [address]- Business (1) When:07/02/2023 Comments:You can take the medications as prescribed as needed for pain. Please follow-up with your primary care doctor in the next 2 to 3 days for further evaluation management. Please return to the ED for any new or worsening symptoms. [facility]03-26-2024 Evaluation + Plan noteExtracted from: Title:ED NoteAuthor:Amberly [...] day(s), # 9 tab(s), Refills(s) 0, Pharmacy: [facility], 175, cm, 06/29/23 19:28:00 EDT, Height/Length Dosing, 82, kg, 06/29/23 19:28:00 EDT, Weight Dosing metoclopramide, 10 mg = 2 mL, Injection, IV Push, Once, Stop date 06/29/23 21:00:00 EDT, STAT, Start date 06/29/23 21:00:00 EDT, 06/29/23 21:00:00 EDT naproxen, 500 mg = 1 tab(s), Oral, BID, PRN for pain, # 20 tab(s), Refills(s) 0, Pharmacy: [facility], 175, cm, 06/29/23 19:28:00 EDT, Height/Length Dosing, 82, kg, 06/29/23 19:28:00 EDT, Weight Dosing ondansetron, 4 mg = 1 tab(s), Oral, q8hr, # 12 tab(s), Refills(s) 0, Pharmacy: [facility], 175, cm, 06/29/23 19:28:00 [...] Panel Lipase Level UA with Cult Rflx [facility]11-14-2023 Evaluation + Plan noteExtracted from: Title:ED NoteAuthor:Maury Jacinto Christal.Date:02/16/23 Diarrhea (R19.7: Diarrhea, u nspecified) N&V (nausea [...] Level Saline Lock Insert Troponin 0 Hr. [facility]11-14-2023 Hospital Discharge instructions Patient Education 02/16/2023 [...] water added (diluted fruit juice). Eat bland, gtqo-pz-xwyxbr foods in small amounts as you are able. These foods include bananas, applesauce, rice, lean meats, toast, and crackers. Avoid fluids that contain a lot of sugar or caffeine, such as energy drinks, sports drinks, and soda. Avoid alcohol. Avoid spicy or fatty foods. General instructions Take xaeb-plg-zuuvutg and prescription medicines only as told by your health care provider. Drink enough fluid to keep your urine pale yellow. Wash your hands often using soap and water for at least 20 seconds. If soap and water are not available, use hand sweatband maker. Make sure that everyone in your household [...] eating and drinking to prevent dehydration. Take snzh-pfz-vzzmfzd and prescription medicines only as told by [...] provider. Document Revised: 09/26/2021 Document Reviewed: 09/26/2021 [employer] Patient Education 2022 [employer]. Follow Up Care 02/16/2023 05:06:19 With:Lilliam Gonzalez Address: [address] [place] [phone]- Business (1) When:Within 3 Day(s) [facility]03-22-2023 NoteOPERATIVE NOTE OPERATION DATE: 06/24/2022 PROCEDURE: Robotic assisted bilateral laparoscopic salpingectomy, fulguration of ovarian endometrial implant. PREOPERATIVE DIAGNOSIS: Desires permanent sterilization, multiparity. POSTOPERATIVE DIAGNOSIS: Desires permanent sterilization, multiparity. ANESTHESIA: General. SURGEON: Shaan Witt D.O. DENTAL EQUIPMENT INSTALLER AND SERVICER: ASHLEY Dominguez URINE OUTPUT: Yellow and clear. [...] lap and needle counts were correct x2.[facility] [id number] NoteHNO ID: [id number] Author: Javier Gutierrez MD Service: ? Author Type: Physician Type: Progress Notes Filed: 10/10/2021 3:41 PM Note Text: NAME: Socorro Joseph CLINIC NO: [id number] REASON FOR VISIT Socorro Joseph is a [...] No masses or organomegaly. (more content not included)...[facility]07-08-2022 History of Present illness Narrative* Javier Gutierrez MD - 10/10/2021 2:00 PM EDT NAME: Socorro Joseph [facility] NO: [id number] REASON FOR VISIT Socorro Joseph is a [...] 10, 2021 11:07 AM documented in [facility] Hospital Discharge instructions Patient Education 09/18/2021 03:02:59 Ovarian Cyst, Ihoy-wc-Bypi Ovarian Cyst An ovarian cyst is a fluid-filled sac on an ovary. The ovaries are organs that make eggs in women. Most ovarian cysts go away on their own and are not cancerous (are benign). Some cysts need treatment. Follow these instructions at home: Take aqld-oxv-whooiap and prescription medicines only as told by [...] 09/07/2008 Document Revised: 03/04/2018 Document Reviewed: 08/23/2016 [employer] Patient Education 2020 [employer]. 09/18/2021 03:02:59 Colitis Colitis Colitis is inflammation [...] if you start to feel better. Take ozba-igi-swxxsmu and prescription medicines only as told by [...] 04/29/2005 Document Revised: 09/22/2018 Document Reviewed: 09/22/2018 [employer] Patient Education [employer]. Follow Up Care 09/17/2021 22:00:56 With:Jeff ROACH Address: [facility] [address] [place] [address] Business (1) When:09/21/2021 Comments:Take The antibiotics as prescribed until you have completed the course. You can use the Zofran every 6 hours as needed for nausea and vomiting. You can use the [place] every 6 hours as needed for pain or the Bentyl every 8 hours. Please follow-up with your primary care doctor in addition to GI for further evaluation and management of the inflammation of your colon. Please return to the ED for any new or worsening symptoms. With:Raquel Nolan Address: [place] [address]- Business (1) When:Within 3 Day(s) [facility]06-15-2022 Evaluation + Plan noteExtracted from: Title:ED NoteAuthor:Amberly [...] Stopdate 10/17/21 22:25:00 EDT, STAT, Start date 09/17/21 [...] Date:11/19/2021 08:00:00 AM Scheduled Provider:Jeff ROACH MD Location[place] [place] [facility] Appointment Type:[facility]04-13-2022 Hospital Discharge instructions Patient Education 07/16/2021 [...] 03/22/2006 Document Revised: 06/29/2018 Document Reviewed: 04/23/2017 [employer] Patient Education [employer]. Follow Up Care 07/16/2021 14:22:36 With:Sujit Mujica Address: [address] [place] [phone] Business (1) When:07/18/2021 16:29:07 Comments:Make sure to follow-up with Dr. Mujica as discussed. Return to the emergency room if your bleeding gets worse, you develop dizziness your abdominal pain gets worse or any new symptoms. With:Lilliam Gonzalez Address: [address] [place] [phone] Business (1) When:Within 3 Day(s) [facility]04-13-2022 Evaluation + Plan noteExtracted from: Title:ED NoteAuthor:Lucila [...] Beta Hcg Qual UA With Cult Reflex [facility]* Diagnosis Constipation, unspecified constipation type- Primary [facility] this encounter [facility]* Diagnosis Wellness examination- Primary documented in this encounter [facility]* Diagnosis Nausea- Primary Nausea alone Acute cough- Primary Nausea Nausea alone Nasal congestion Other diseases of nasal cavity and sinuses Ear fullness, bilateral BMI 27.0-27.9,adult Overweight documented in this encounter [facility] note* Diagnosis Well woman exam with routine gynecological exam Routine gynecological examination PCOS (polycystic ovarian syndrome) Polycystic ovaries Nausea Nausea alone documented in this encounter [facility]* Diagnosis Nausea- Primary Nausea alone Leukocytosis, unspecified type- Primary Gastroesophageal reflux disease, unspecified whether esophagitis present BMI 26.0-26.9,adult Overweight documented in this encounter [facility] note* Diagnosis Nausea- Primary Nausea alone Intractable episodic headache, unspecified headache type- Primary Nausea Nausea alone Facial tingling Overweight BMI 27.0-27.9,adult documented in this encounter [facility] note* Diagnosis Nausea- Primary Nausea alone Acute diarrhea- Primary Diarrhea Nausea Nausea alone Abdominal cramping Abdominal pain, unspecified site documented in this encounter [facility] note* Diagnosis Nausea- Primary Nausea alone Well woman exam with routine gynecological exam Routine gynecological examination UTI symptoms Exposure to STD Vaginal discharge Leukorrhea, not specified as infective documented in this encounter [facility]* Diagnosis Nausea- Primary Nausea alone Pre-operative exam Unspecified pre-operative examination Menorrhagia with irregular cycle Pelvic pain in female Unspecified symptom associated with female genital organs Dysmenorrhea Dyspareunia, female [facility] encounter [facility] Narrative No data available for this section [facility] No data available for this section [facility] HospitalProgress note No data available for this section [facility]Reason for referral (narrative)* Outpatient Procedure (Routine) - AuthorizedSpecialtyDiagnoses / ProceduresReferred By ContactReferred To [facility] Diagnoses Constipation, unspecified constipation type Procedures ADULT [place] ANORECTAL MANOMETRY ANORECTAL MANOMETRY Javier Gutierrez MD [address] [place] [address] [facility] [place] [address] [place], [place] [id number] Referral IDStatusReasonStart DateExpiration DateVisits RequestedVisits [id number] Auto-Generated Referral [facility] Summary Purpose Family History No [...] section and content) DATE CREATED AUTHOR 09/23/2017 [facility] DATE CREATED AUTHOR AUTHOR'S ORGANIZ ATION 11/07/[address] [facility] DATE CREATED AUTHOR AUTHOR'S ORGANIZ ATION 07/10/2022 [facility] DATE CREATED AUTHOR AUTHOR'S ORGANIZ ATION 12/16/2023 [facility] DATE CREATED AUTHOR AUTHOR'S ORGANIZ ATION 03/21/2024 [facility] DATE CREATED AUTHOR AUTHOR'S ORGANIZ ATION 04/18/2024 [facility] DATE CREATED AUTHOR AUTHOR'S ORGANIZ ATION 04/19/2024 [facility] DATE CREATED AUTHOR AUTHOR'S ORGANIZ ATION 06/12/2024 [facility] DATE CREATED AUTHOR AUTHOR'S ORGANIZ ATION 06/18/2024 [facility] DATE CREATED AUTHOR AUTHOR'S ORGANIZ ATION 06/20/2024 [facility] DATE CREATED AUTHOR AUTHOR'S ORGANIZ ATION 01/25/2025 [facility] EPIC Care Team (unrecognized sect ion and content) Team MemberRelationshipSpecialtyStart DateEnd Date Raquel Nolan MD [address] [place] [address] PCP - [facility]09/14/22 Raquel Nolan MD [address] [place] [address] PCP - [facility]10/03/22Te MemberRelationshipSpecialtyStart DateEnd Date Raquel Nolan MD [address] [place] [address] [facility]09/14/22 Raquel Nolan MD [address] [place] [address] [facility]10/03/22Te MemberRelationshipSpecialtyStart DateEnd Date Raquel Nolan MD [address] [place] [address] [facility] - [facility]09/14/22Te MemberRelationshipSpecialtyStart DateEnd Date Raquel Nolan MD [address] [place] [address] PCP - [facility]09/14/22Te MemberRelationshipSpecialtyStart DateEnd Date Raquel Nolan MD [address] [place] [address] [facility] - [facility]09/14/22 Raquel Nolan MD [address] [place] [address] [facility] - [facility]10/03/22Te MemberRelationshipSpecialtyStart DateEnd Date Raquel Nolan MD [address] [place] [address] [facility] - [facility]09/14/22 Raquel Nolan MD [address] [place] [address] [facility] - [facility]10/03/22Te MemberRelationshipSpecialtyStart DateEnd Date Raquel Nolan MD [address] [place] [address] [facility]09/14/22 Raquel Nolan MD [address] [place] [address] PCP - [place] [employer] MemberRelationshipSpecialtyStart DateEnd Date Raquel Nolan MD [address] [place] [address] PCP - [facility]09/14/22 Raquel Nolan MD [address] [place] [address] PCP - [place] [employer] MemberRelationshipSpecialtyStart DateEnd Date Raquel Nolan MD [address] [place] [address] PCP - [facility]09/14/22 Raquel Nolan MD [address] [place] [address] PCP - [place] [employer]08/03/24Team MemberRelationshipSpecialtyStart DateEnd Date Raquel Nolan MD [address] [place] [address] [facility] Raquel Nolan MD [address] [place] [address] PCP - [place] [employer]08/03/24Team MemberRelationshipSpecialtyStart DateEnd Date Raquel Nolan MD [address] [place] [address] PCP - [facility]09/14/22 Raquel Nolan MD [address] [place] [address] PCP - [place] [employer]08/03/24Te MemberRelationshipSpecialtyStart DateEnd Date Raquel Nolan MD [address] [place] [address] [facility] Raquel Nolan MD [address] [place] [address] PCP - [place] [employer]08/03/24Team MemberRelationshipSpecialtyStart DateEnd Date Raquel Nolan MD [address] [place] [address] PCP - [facility]09/14/22 Raquel Nolan MD [address] [place] [address] PCP - [place] [employer]08/03/24Te MemberRelationshipSpecialtyStart DateEnd Raquel Nolan MD [address] [place] [address] PCP - [facility]09/14/22 Raquel Nolan MD [address] [place] [address] PCP - [place] [employer]08/03/24Team MemberRelationshipSpecialtyStart DateEnd Date Raquel Nolan MD [address] [place] [address] PCP - GeneralFamily Medicine09/14/22 Raquel Nolan MD [address] [place] [address] PCP - Dewayne Yun08/03/24 Source Comments (unrecognize d section and content) In the event this informatio n is protected by the Federal Confidentiality of Alcohol and Drug Abuse Patient Records regulations: The Federal rules restrict any use of the information to criminally investigate or prosecute any alcohol or drug abuse patient.[facility] Reason for Visit (unrecogniz ed [...] BE BASED ON THE PRIMARY CLINICAL RECORDS. [employer] provides no warranty or guarantee of the accuracy or completeness of information in this document.
== END 2025-02-17 10:37 | disposition home or self-care (01) ==
LOC: LAB 10:36
PROVIDERS: Visit Provider Obstetrics & Gynecology
DX: Z01.812 Encounter for preprocedural laboratory examination (principal); N92.1 Excessive and frequent menstruation with irregular cycle; R10.30 Lower abdominal pain, unspecified; N94.10 Unspecified dyspareunia
CPT/HCPCS: 36415; 86850; 86900; 86901

== ENCOUNTER 2025-02-19 11:18 | Day surgery (SDC) | payer BC, SELFPAY ==
[2025-02-02 12:39] VITALS: BP 121/66; PULSE 73; TEMP 36.3; O2SAT 100; BMI 26.3
[2025-02-19] VITALS (23 sets, daily range): BP systolic 116–163; BP diastolic 63–92; PULSE 69–115; TEMP 36.3–37.1; O2SAT 93–99
--- OUTSIDE RECORDS SUMMARY | 2025-02-19 11:28 | XMS_ITS | CCD ---
Author Organization [facility] CliniSysc Care Team Providers Care Foundry Engineer Name Role Phone GIGI MITCH ALLISON Unavailable UnaCHANDANA Dey Unavailable Unavailable NO PRIMARY CARE, Unavailable Unavailable Lilliam Gonzalez Primary Care Physician Fernanda MUNROE Unavailable Raquel Nolan Primary Care Physician [phone] Unavailable Primary Care Provider Unavailhoney WITT ., [...] Unavailable MIRYAM ., DR TITUS Admitting Unavailable COLSTRIP, DR BAO Painter Consulting Unavailable ALMA NOLAN Primary Care Unavailable MIRYAM ., DR TITUS Attending Unavailable MIRYAM ., DR TITUS Consulting Unavailable DO Jacinto Mendiola Attending Unavailable Amberly Whitehead Attending Unavailable Tony Aguirre Attending Unavailable Tony Aguirre Admitting Unavailable Tony Aguirre Attending Unavailable NIA COLBERT Attending Unavailable NIA COLBERT Admitting Unavailable Raquel Nolan MD Primary Care Provider Raquel Nolan MD Unavailable [phone] NIA COLBERT Admitting Unavailable NIA COLBERT Attending Unavailable Roque Harris Attending Unavailable Ann Warner Attending Unavailable Ann Warner Admitting Unavailable Ann Warner Attending Unavailable Narinder Kumar. Attending Unavailable Roque Harris Attending Unavailable Ann Warner Attending Unavailable Elver Gonzales Attending Unavailable Narinder Kumar. Attending Unavailable Raquel Nolan MD Unavailable Elver Gonzales Attending Unavailable Raquel Nolan MD Primary Care Provider Raquel Nolan MD Unavailable [phone] RAQUEL NOLAN Attending Unavailable RAQUEL NOLAN Attending Unavailable CHERISE JAIMES Attending Unavailab NIA Merritt Attending Unavailable SHAAN WITT Attending Unavailable RAQUEL NOLAN Attending Unavailable Medications Current Medications MedicationDrug Class(es)DatesSig (Normalized)Sig (Original)acetaminophen 325 mg / HYDROcodone bitartrate 5 mg oral tablet (2 sources)Opioid AgonistStart: 24-89-9501Lnggg 325 mg-5 mg oral tablet 1 tab(s), Oral, q6hr for pain, 10 tab(s), Refill(s) 0 Start Date: 09/18/21 Status: [id number] 200 actuat albuterol 0.09 mg/actuat metered dose inhaler (10 sources)beta2-Adrenergic AgonistStart: 04-27-2023 End: 24-11-8953jznf 2 puff(s) by inhalation every four hours for wheezing albuterol HFA 90 mcg/act inhaler Indications: Acute cough Inhale 2 puffs every 4 (four) hours if needed for wheezing or shortness of breath 18 g 04/27/2023 03/22/2024 Discontinued (Therapy completed)cephalexin 500 mg oral capsule (4 sources)Cephalosporin AntibacterialStart: 10-80-7435qzfc 1 capsule by mouth every twelve hoursKeflex 500 mg Cap 500 mg = 1 cap(s), Oral, q12hr, # 14 cap(s), Refills(s) 0, Pharmacy: [facility], 175, cm, 06/16/20 13:40:00 EDT, Height/Length Dosing, 70.8, kg, 06/16/20 13:40:00 EDT, Weight Dosing Start Date: 06/16/20 Status: Ordereddextromethorphan hydrobromide 3 mg/ml / promethazine hydrochloride 1.25 mg/ml oral solution (1 source)Phenothiazine, Uncompetitive Q-ppnqnd-Y-aspartate Receptor Antagonist, Sigma-1 AgonistStart: 03-20-2024 End: 17-05-2018zzuv 5 mL by mouth every six hours for coughdextromethorphan- promethazine 15 mg-6.25 mg/5 mL Oral Syrup 5 mL 5 mL, Oral, q6hr for cough for 5 day(s), 200 mL, Refill(s) 0, [facility], 175.6, cm, 03/20/24 7:23:00 EST, Height/Length Dosing, 80, kg, 03/20/24 7:23:00 EST, Weight Dosing Start Date: 03/20/24 Stop Date: 03/25/24 Status: Ordereddicyclomine hydrochloride 10 mg oral capsule (2 sources)AnticholinergicStart: 47-58-4417clbc 1 capsule by mouth four times daily as needed for nauseaBentyl 10 mg Cap 10 mg = 1 cap(s), Oral, QID, PRN Nausea/Vomiting, For abdominal cramping, # 16 cap(s), Refills(s) 0, Pharmacy: [facility], 177, cm, 04/15/24 21:15:00 EST, Height/Length Dosing, 83.8, kg, 04/15/24 21:15:00 EST, Weight Dosing Start Date: 04/16/24 Status: OrderedStart: 09-18-2021 End: 47-91-6247ygsd 1 capsule by mouth four times dailyBentyl 10 mg Cap 10 mg = 1 cap(s), Oral, QID, X 7 day(s), # 14 cap(s), Refills(s) 0 Start Date: 09/18/21 Stop Date: 09/25/21 Status: Orderedfamotidine 40 mg oral tablet (15 sources)Histamine-2 Receptor AntagonistStart: 06-15-2024 End: 48-14-2124yzdw 1 tablet by mouth at bedtimefamotidine (Pepcid) 40 MG tablet Indications: Gastroesophageal reflux disease, unspecified whether esophagitis present Take 1 tablet (40 mg) by mouth at bedtime 90 tablet 3 06/15/2024 06/15/2025 Activeibuprofen 200 mg oral tablet (10 sources)Nonsteroidal Anti-inflammatory Drug End: 61-04-4841zumnwbcma 200 MG tablet Take by mouth. 03/22/2024 Discontinued (Therapy completed)levonorgestrel 0.332251 mg/hr intrauterine system (4 sources)Progestin, Progestin-containing Intrauterine DeviceStart: 08-29-2019 Liletta 52 mg IUD Refills(s) 0 Start Date: 08/29/19 Status: OrderedStart: 07-97-1767Kdydpiq 52 mg IUD Refills(s) 0 Start Date: 08/29/19 Status: Ordered methocarbamol 500 mg oral tablet (1 source)Muscle RelaxantStart: 06-29-2023 End: 94-68-1839zjgc 1 tablet by mouth three times dailyRobaxin 500 mg Tab 500 mg = 1 tab(s), Oral, TID, X 3 day(s), # 9 tab(s), Refills(s) 0, Pharmacy: [facility], 175, cm, 06/29/23 19:28:00 EDT, Height/Length Dosing, 82, kg, 06/29/23 19:28:00EDT, Weight Dosing Start Date: 06/29/23 Stop Date: 07/02/23 Status: Orderednaproxen 500 mg oral tablet (2 sources)Nonsteroidal Anti-inflammatory DrugStart: 39-49-3037uslj 1 tablet by mouth twice daily as needed for painNaprosyn 500 mg Tab 500 mg = 1 tab(s), Oral, BID, PRN for pain, # 20 tab(s), Refills(s) 0, Pharmacy: [facility], 175, cm, 06/29/23 19:28:00 EDT, Height/Length Dosing, 82, kg, 06/29/23 19:28:00 EDT, Weight Dosing Start Date: 06/29/23 Status: Orderedoseltamivir 75 mg oral capsule (2 sources)Neuraminidase InhibitorStart: 04-12-2024 End: 62-84-1991fziw 1 capsule by mouth twice dailyTamiflu 75 mg Cap 75 mg = 1 cap(s), Oral, BID, X 5 day(s), # 10 cap(s), Refills(s) 0, Pharmacy: [facility], 175.6, cm, 04/12/24 13:49:00 EST, Height/Length Dosing, 83.8, kg, 04/12/24 13:49:00 EST, Weight Dosing Start Date: 04/12/24 Stop Date: 04/17/24 Status: Orderedpantoprazole 40 mg delayed release oral tablet (15 sources)Proton Pump InhibitorStart: 06-15-2024 End: 98-83-3623vzmh 1 tablet by mouth once dailypantoprazole (ProtoNix) 40 MG EC tablet Indications: Gastroesophageal reflux disease, unspecified whether esophagitis present Take 1 tablet (40 mg) by mouth Daily Do not crush, chew, or split. 90 tablet 3 06/15/2024 06/15/2025 Activephenazopyridine hydrochloride 100 mg oral tablet (3 sources)Start: 12-18-2024 End: 06-02-9367uqng 1 tablet by mouth three times daily as needed for muscle spasmsphenazopyridine (Pyridium) 100 MG tablet Indications: UTI symptoms Take 1 tablet (100 mg) by mouth 3 (three) times a day as needed for bladder spasms for up to 3 days 10 tablet 12/18/2024 12/21/2024 ActivepredniSONE 20 mg oral tablet (2 sources)Start: 03-22-2024 End: 16-54-0250jaht 2 tablets by mouth once dailypredniSONE (Deltasone) 20 MG tablet Indications: Acute cough Take 2 tablets (40 mg) by mouth Daily for 5 days 10 tablet 03/22/2024 03/27/2024 ActiveZofran ODT 4 mg Tab-Dis (6 sources)Start: 99-93-0744lmvq 1 tablet by mouth every eight hours as needed for nauseaZofran ODT 4 mg Tab-Dis 4 mg = 1 tab(s), Oral, q8hr, PRN Nausea/Vomiting, # 12 tab(s), Refills(s) 0, Pharmacy: [facility], 177, cm, 04/15/24 21:15:00 EST, Height/Length Dosing, 83.8, kg, 04/15/24 21:15:00 EST, Weight Dosing Start Date: 04/16/24 Status: OrderedStart: 06-29-2023 take 1 tablet by mouth every eight hoursZofran ODT 4 mg Tab-Dis 4 mg = 1 tab(s), Oral, q8hr, # 12 tab(s), Refills(s) 0, Pharmacy: [facility], 175, cm, 06/29/23 19:28:00 EDT, Height/Length Dosing, 82, kg, 06/29/23 19:28:00 EDT, We ight Dosing Start Date: 06/29/23 Status: OrderedStart: 68-28-5038xllp 1 tablet by mouth every eight hours as needed for nauseaZofran ODT 4 mg Tab-Dis 4 mg = 1 tab(s), Oral, q8hr, PRN Nausea/Vomiting, # 20 tab(s), Refills(s) 0, Pharmacy: [facility], 175.3, cm, 02/16/23 5:18:00 [...] oral tablet (7 sources)Penicillin-class AntibacterialStart: 03-20-2024 End: 40-83-6207wbvz 1 tablet by mouth in the morningamoxicillin-clavulanate (Augmentin) 875-125 MG tablet Take 875 mg by mouth in the morning and 875 mg before bedtime. 03/20/2024 06/15/2024 DiscontinuedStart: 09-18-2021 End: 19-69-3655Qudouukni 875 mg-125 mg Tab 1 tab(s), Oral, q12hr for 10 day(s), 20 tab(s), Refill(s) 0 Start Date:09/18/21 Stop Date: 09/28/21 Status: Ordered azithromycin 250 mg oral tablet (5 sources)Macrolide AntimicrobialStart: 03-22-2024 End: 62-84-0448xvtngjqgqafy (Zithromax) 250 MG tablet Indications: Acute cough Take 2 tabs PO x 1 day then 1 tab PO daily x 4 days 6 tablet 03/22/2024 06/15/2024 DiscontinuedmetFORMIN hydrochloride 500 mg oral tablet (12 sources)BiguanideStart: 12-13-2023 End: 64-05-7469tafq 1 tablet by mouth at bedtimemetFORMIN (Glucophage) 500 MG tablet Indications: PCOS (polycystic ovarian syndrome) Take 1 tablet (500 mg) by mouth at bedtime 30 tablet 11 12/13/2023 06/15/2024 Discontinuedondansetron 4 mg oral tablet (20 sources)Serotonin-3 Receptor AntagonistStart: 12-06-2024 End: 28-49-6090yfyk 1 tablet by mouth every eight hours as needed for nausea and vomiting and nausea and nauseaondansetron (Zofran) 4 MG tablet Indications: Nausea Take 1 tablet (4 mg) by mouth every 8 (eight) hours if needed for nausea or vomiting 12 tablet 12/06/2024 01/24/2025 DiscontinuedStart: 07-26-2024 End: 57-59-0104ekaq 2 tablets by mouth every eight hours as needed for nausea and vomiting and nausea and nauseaondansetron (Zofran) 4 MG tablet Indications: Nausea Take 2 tablets (8 mg) by mouth every 8 (eight)hours if needed for nausea or vomiting 20 tablet 09/26/2024 12/06/2024 Discontinued (Reorder)Start: 04-12-2024 End: 15-57-5721mowm 1 tablet by mouth every eight hoursondansetron 4 mg Dis Tab 4 mg = 1 tab(s), Oral, q8hr, allow tablet to dissolve on tongue, X 2 day(s), # 6 tab(s), Refills(s) 0, Pharmacy: [facility], 175.6, cm, 04/12/24 13:49:00 EST, Height/Length Dosing, 83.8, kg, 04/12/24 13:49:00 EST, Weight Dosing Start Date: 04/12/24 Stop Date: 04/14/24 Status: OrderedStart: 12-13-2023 End: 63-54-6847tybx 1 tablet by mouth every six hours as needed for nausea and vomiting and nausea and nauseaondansetron ODT (Zofran-ODT) 4 MG disintegrating tablet Indications: Nausea Take 1 tablet (4 mg) bymouth every 6 (six) hours if needed for nausea or vomiting 30 tablet 2 12/13/2023 01/12/2024 ActiveStart: 09-21-2023 End: 30-67-4365eqzz 2 tablets by mouth every eight hours as needed for nausea and vomiting and nausea and nauseaondansetron (Zofran) 4 MG tablet Indications: Nausea Take 2 tablets (8 mg) by mouth every 8 (eight)hours if needed for nausea or vomiting 20 tablet 03/22/2024 ActiveStart: 23-17-0557gzzz 1 tablet by mouth every eight hours as needed for nauseaZofran 4 mg Tab 4 mg = 1 tab(s), Oral, q8hr, PRN Nausea/Vomiting, # 12 tab(s), Refills(s) 0 Start Date: 09/18/21 Status: OrderedComment on above:Take 4 mg by mouth every 8 hours as needed for nausea/vomiting.polyethylene glycol 3350 20076 mg powder for oral solution (2 sources)Osmotic LaxativeStart: 87-68-1324nizmfzofsumd glycol 3350 (MIRALAX) 17 gram/dose powder Take [...] sources)Leukocytosis; Translations: [Elevated white blood cell count, unspecified]78-05-3472TkekmciVfcoobukcknwj (1 source)Endometriosis; Translations: [ENDOMETRIOSIS RT OVARY UNSPEC DEPTH] Onset: 96-47-2676Tawgndhyhu disorders (4 sources)Gastroesophageal reflux disease; Translations: [Gastro-esophageal reflux disease without esophagitis]55-54-2877CtcknooWxzhethsknrei symptoms and ill-defined conditions (2 sources)Urinary symptoms ; Translations: [Unspecified symptoms and signs involving the genitourinary system]14-09-5161ZirwbitxZmuxgpdl; including migraine (4 sources)Headache; Translations: [Headache, unspecified]Onset: 06-29-2023 EpisodicImmunizations and screening for infectious disease (2 sources)Exposure to sexually transmissible disorder; Translations: [Contact with and (suspected) exposure to infections with a predominantly sexual mode of transmission]58-93-3101XhsqanprIxkzhgitg (1 source)Influenza; Translations: [Influenza due to other identified influenza virus with other respiratory manifestations]Onset: 68-02-6348ZtzsgostOfwqdsckc disorders (6 sources)Irregular menstruation, unspecified; Translations: [Menometrorrhagia] Onset: 74-52-2684QigolizHatv disorders (20 sources)Depressive disorder; Translations: [Depression]Onset: 09-14-2022 55-87-8377JizpayvDwnnr ear and sense organ disorders (2 sources)Ear sensations - finding; Translations: [Other specified disorders of ear, bilateral]81-48-7416HghytkxlQrnzp endocrine disorders (2 sources)Polycystic ovary syndrome; Translations: [Polycystic ovarian syndrome]61-92-7462OdyukxdWqeji female genital disorders (2 sources)Abnormal uterine bleeding; Translations: [Abnormal uterine and vaginal bleeding, unspecified]Onset: 35-45-8866XtvqrnvLtfvp female genital disorders (1 source)Pain in female genitalia on intercourse; Translations: [Unspecified dyspareunia]53-29-9678LuzwupfCcqbp female genital disorders (1 source)Other specified noninflammatory disorders of vagina; Translations: [OTH SPEC NONINFLAMMATORY D/O VAGINA]Onset: 21-45-1884PuectqbfPjhhp female genital disorders (2 sources)Vaginal discharge; Translations: [Other specified noninflammatory disorders of vagina]19-58-0554EksounkmXaojc female genital disorders (1 source)Pain in female pelvis; Translations: [Pelvic pain in female]01-24-2025 EpisodicOther gastrointestinal disorders (2 sources)Diarrhea; Translations: [Diarrhea, unspecified]Onset: 11-17-2021 EpisodicOther gastrointestinal disorders (2 sources)Acute diarrhea; Translations: [Diarrhea, unspecified]12-06-2024 EpisodicOther lower respiratory disease (1 source)Cough; Translations: [Cough, unspecified]Onset: 74-63-5897Qqmixmlf Other lower respiratory disease (2 sources)Cough; Translations: [Acute cough]71-61-6647PgfxlozgNjecx nervous system disorders (2 sources)Pins and needles; Translations: [Paresthesia of skin]09-26-2024 EpisodicOther nutritional; endocrine; and metabolic disorders (7 sources)Overweight in adulthood with body mass index of 25 or more but less than 30; Translations: [Body mass index (BMI) 27.0-27.9, adult]Onset: 04-12-2024 53-01-8865ZdznjpeeBybnb nutritional; endocrine; and metabolic disorders (6 sources)Overweight; Translations: [Overweight]64-18-6954QfdjebnhNrktn and delivery including normal (11 sources)Normal sysjrmgcc46-91-5081TqoeiabeNgstm upper respiratory disease (3 sources)Nasal congestion; Translations: [Nasal congestion]Onset: 04-12-2024 87-24-3938YsgqxifeVzfqseu cyst (2 sources)Cyst of ovary; Translations: [Unspecified ovarian cyst, unspecified side]Onset: 01-97-6077TzkrtmtvTljjosaj codes; unclassified (1 source)Chill; Translations: [Chills (without fever)]Onset: 55-77-6878Brfmbqym Substance-related disorders (20 sources)Smoker; Translations: [Nicotine dependence, cigarettes, uncomplicated]Onset: 06-11-2022 Resolved: 157366-95-6783MpmjuklOrlamuy on above:Added secondary to documentation in Social History.Added secondary to documentation in Social History.Syncope (1 source)Syncope and collapse; Translations: [Syncope and collapse]Onset: 75-65-8607Qftnrgcc Past or Other Problems Problem ClassificationProblemDateDocumented DateEpisodic/ChronicAbdominal pain (20 sources)Abdominal pain; Translations: [Unspecified abdominal pain]Onset: 61-59-4838YnmmjglfSvsajqegyeqo of device; implant or graft (20 sources)Mechanical complication of intrauterine contraceptive device; Translations: [Other mechanical complication of intrauterine contraceptive device, initial encounter]Onset: 841930-59-1614ImjjvmiwWgymyjmuhziff and procreative management (20 sources)Encounter for sterilization; Translations: [Sterilization requested] Onset: 06-24-2022 Resolved: 49-41-7140AtwykjgaSsmihx and vomiting (20 sources)Vomiting; Translations: [Vomiting, unspecified]Onset: 11-17-2021 EpisodicNoninfectious gastroenteritis (20 sources)Noninfectious enteritis; Translations: [Noninfective gastroenteritis and colitis, unspecified]Onset: 42-97-3829HttegazrJwkwk female genital disorders (20 sources)Cervical intraepithelial neoplasia grade 2; Translations: [Moderate cervical dysplasia]Onset: 435957-92-5877AcwbrcnjCjmwp female genital disorders (20 sources)Vaginal odor; Translations: [Other specified noninflammatory disorders of vagina]Onset: 531709-09-6764FlziawugRkxpn female genital disorders (3 sources)Pelvic and perineal pain; Translations: [Pelvic and perineal pain] Onset: 030525-43-5329MknczeopUpehc gastrointestinal disorders (20 sources)Constipation; Translations: [Constipation, unspecified]Onset: 37-04-0977OfenbpohEccfa upper respiratory infections (20 sources)Pharyngitis; Translations: [Acute pharyngitis, unspecified]Onset: 026865-04-5325GqrrqptcZxsfts media and related conditions (20 sources)Acute suppurative otitis media without spontaneous rupture of ear drum; Translations: [Acute suppurative otitis media without spontaneous rupture of ear drum, left ear]Onset: 638352-24-5718LgejuzgzZvevokhd codes; unclassified (20 sources)History of endometrial ablation; Translations: [Other specified postprocedural states]Onset: 050739-79-4070ZravleubGkfgfwlxzojw (20 sources)PregnancyOnset: 09-11-2017 Resolved: Results Test NameValueInterpretationReference RangeFacilityALL CBC WITH AUTO DIFFon 66-44-9814DMSFIFTXH ABSOLUTE AUTO0.0NOMS HealthcareBasophils/100 WBC (Bld)0.4 % 0.2 - 2.0 %[facility] HospitalEosinophils/100 WBC (Bld)0.7 %Low0.9 - 7.0 %[facility] HospitalErythrocyte distribution width (RBC) [Ratio]12.7 %11.0 - 15.0 %NOMSt. Luke'S HospitalHematocrit (Bld) [Volume fraction]43.1 %36.0 - 48.0 %[facility] Hemoglobin (Bld) [Mass/Vol]14.3 g/dL12.0 - 16.0 g/dLOzarks Community HospitalIMMATURE GRANULOCYTES ABS AUTO0.03NOMS [facility] SystemImmature granulocytes/100 WBC (Bld)0.3 % 0.0 - 0.5 %[facility] HospitalInterpretation and review of laboratory results AbnormalNOWashington University Medical CenterLYMPHOCYTES ABSOLUTE AUTO3.8N[facility] Lymphocytes/100 WBC (Bld)38.3 %20.5 - 60.0 %[facility]villeH (RBC) [Entitic mass]31.4 pg26.7 - 34.0 pgOzarks Community HospitalMCHC (RBC) [Mass/Vol]33.2 g/dL29.9 - 35.2 g/dLOzarks Community HospitalMCV (RBC) [Entitic vol]94.7 fL81.0 - 99.0 fLOzarks Community HospitalMONOCYTES ABSOLUTE AUTO0.6NOMS HealthcareMonocytes/100 WBC (Bld)5.9 % 1.7 - 12.0 %[facility] HospitalNEUTROPHILS ABSOLUTE AUTO5.5N[facility] Neutrophils/100 WBC (Bld)54.4 %43.0 - 75.0 %[facility] HospitalPlatelet mean volume (Bld) [Entitic vol]10.4 fL9.5 - 13.5 fLOzarks Community HospitalTBH EO #0.1N[facility]S [facility] TBH [id number] [facility] RBC4.55NOMS [facility] Healthcare SystemTB WBC10.0N[facility]S [facility] CLINISYNCOzarks Community HospitalXR CHEST 2Von 32-22-3247[address] [address] XRay Report Signed Patient: SOCORRO JOSEPH MR#: [id number] : 2000 Acct:[id number] Age/Sex: 24 / F ADM Date: 02/02/25 Loc: PST Attending Dr: Shaan Witt D.O. Ordering Physician: Shaan Witt D.O. Date of Service: 02/02/25 Procedure(s): XR chest 2V Accession Number(s): [id number] cc: Shaan Witt D.O.; Physician,Non-Staff Naren [place] [id number] Patient Name: SOCORRO JOSEPH MRN: [facility]:[id number] date: 2000 Sex: F [facility] Accession/Order Number: [id number] Exam Date: 02/02/2025 13:15 Report Date: 02/02/2025 15:26 At the request of: SHAAN WITT DO Procedure: XR chest 2V Chest 2 views CLINICAL HISTORY: Preop exam COMPARISON: Chest 06/10/2022 FINDINGS: Heart normal in size. Lungs are clear. No free air. XR/XR chest 2V IMPRESSION: NO ACUTE CARDIOPULMONARY ABNORMALITY. Impression dictated by: Dmitriy Mason Jr., D.O. 02/02/2025 3:26 PM Dictation Location: [place] [address] Electronically authenticated by: [id number] Y Date: 02/02/2025 15:26 Dictated By: Dmitriy Mason M.D. Signed By: 02/02/25 1528 DD/ 1526 TD/TT: [facility] Nurse:DARRELLadiologzach, Radiologist, MD - 02/02/[address] [address] XRay Report Signed Patient: SOCORRO JOSEPH MR#: [id number] : 2000 Acct:[id number] Age/Sex: 24 / F ADM Date: 02/02/25 Loc: PST Attending Dr: Shaan Witt D.O. Ordering Physician: Shaan Witt D.O. Date of Service: 02/02/25 Procedure(s): XR chest 2V Accession Number(s): [id number] cc: Shaan Witt D.O.; Physician,Non-Staff Naren [place] [id number] Patient Name: SOCORRO JOSEPH MRN: [facility]:[id number] date: 2000 Sex: F [facility] Current Patient Location: [facility] Accession/Order Number: [id number] Exam Date: 02/02/2025 13:15 Report Date: 02/02/2025 15:26 At the request of: SHAAN WITT DO Procedure: XR chest 2V Chest 2 views CLINICAL HISTORY: Preop exam COMPARISON: Chest 06/10/2022 FINDINGS: Heart normal in size. Lungs are clear. No free air. XR/XR chest 2V IMPRESSION: NO ACUTE CARDIOPULMONARY ABNORMALITY. Impression dictated by: Dmitriy Mason Jr., D.O. 02/02/2025 3:26 PM Dictation Location: [place] [address] Electronically authenticated by: [id number] Y Date: 02/02/2025 15:26 Dictated By: Dmitriy Mason M.D. Signed By: 02/02/25 1528 DD/ 25 TD/TT: [facility] Nurse: SOCO HealthcareRadiology Study observation (narrative)[facility] HealthcareXR CHEST 2V Ordered By: Radiologist Radiology on 80-70-1213SEMZOzarks Community Hospital Work Phone: US PELVIC COMPLETE W/ TVon 97-60-4088SJ PELVIC COMPLETE W/ TVFINDINGS: Uterus 8.7 x [...] last menstrual period was 12/09/2024.IGP,APTIMA HPV,AGE GDLNon 68-23-6234WDQ LN ACOG TESTINGNote.[facility] HealthcareComment on above:TESTS RESULT FLAG UNITS REF RANGE LAB Clinician Provided Cytology Information Source.............Cervix;Endocervix No. of containers..01 ThinPrep Vial Age Anuradhao OTTONIEL Rebecca... FLAG LEGEND: L-Low Normal,H-High Normal,LL-Alert Low,HH-Alert High <-Panic Low,>-Panic High,A-Abnormal,AA-Critical Abnormal Performed at: 01 =[facility] [address] Rosalia Harp MD, IGP, RFX APTIMA HPV ASCUNote.[facility] HealthcareComment on above:TESTS RESULT FLAG UNITS REF RANGE LAB DIAGNOSIS: 02 NEGATIVE FOR INTRAEPITHELIAL LESION OR MALIGNANCY. Specimen adequacy: 02 Satisfactory for evaluation. Endocervical and/or squamous metaplastic cells (endocervical component) are present. Performed by: 02 Gildardo Chan Medical Reception Specialist ([facility]) . 02 Note: Note 02 [...] High,A-Abnormal,AA-Critical Abnormal Performed at: [address] [facility] [address] [address] Rosalia Harp MD, Performed at: =G - [facility] [address] [id number] [facility] Supervisor: Rosalia Harp MD, Phone: [phone] Performed at: - [facility] [id number] [facility] Supervisor: Rosalia Harp MD, Phone: [phone] BRUSH-SPATULA CERVIX ENDOCERVIX CLINISYNCNOMS HealthcareRECURRENT VAGINITIS (HTRX)on 32-08-6021CAPMHRSOC VAGINAE 0NOMS HealthcareATOPOBIUM VAGINAENot detectedNOMS HealthcareBVAB 2,3 (BACTERIAL VAGINOSIS ASSOCIATED BACTERIA 2, 3); MOBILUNCUS [id number] HealthcareBVAB 2,3 (BACTERIAL VAGINOSIS ASSOCIATED BACTERIA 2, 3); MOBILUNCUS SPPNot detectedNOMS HealthcareCANDIDA ALBICANS, PARAPSILOSIS, [id number] HealthcareCANDIDA ALBICANS, PARAPSILOSIS, TROPICALISNot detectedNOMS HealthcareCANDIDA GLABRATA0 NOMS HealthcareCANDIDA GLABRATANot detectedNOMS HealthcareCANDIDA [id number] HealthcareCANDIDA KRUSEINot detectedNOMS HealthcareCHLAMYDIA [id number] HealthcareCHLAMYDIA TRACHOMATISNot detectedNOMS HealthcareGARDNERELLA VAGINALIS0 NOMS HealthcareGARDNERELLA VAGINALISNot detectedNOMS HealthcareMEGASPHAERA (TYPES 1, 2)0NOMS HealthcareMEGASPHAERA (TYPES 1, 2)Not detectedNOMS Healthcare MYCOPLASMA [id number] HealthcareMYCOPLASMA GENITALIUMNot detectedNOMS HealthcareNEISSERIA [id number] HealthcareNEISSERIA GONORRHOEAENot detected NOMS HealthcareTRICHOMONAS [id number] HealthcareTRICHOMONAS VAGINALISNot detectedNOMS HealthcareNOMS HealthcareUrinalysis macro (dipstick) panel (U)on 83-98-8584Wikkortyu, UANegativeNegative - 4(70) +++ mg/dLNOMS HealthcareBlood, UANegativeNegative - 50 Silas/mcLNOMS HealthcareClarity, UAClearNOMS Healthcare Color, UAYellowNOMS HealthcareGlucose, UANegativeNegative - 2000(110) ++++ mg/dL NOMS HealthcareInterpretation and review of laboratory resultsNormalNOMS HealthcareKetones, UANegativeNegative - 160(16) ++++ mg/dLNOWV Healthcare Leukocytes, UANegativeNegative - 500+++ Estephania/mcLNOMS HealthcareNitrite, UA NegativeNegative - PositiveNOMS HealthcarepH, UA65 - 9NOMS HealthcareProtein, UA NegativeNegative - 2000(20) ++++ mg/dLNOMS HealthcareSpec Grav, UA1.011 - 1.03 NOMS HealthcareUrobilinogen, UA1.00.2 - 12 mg/dLNOMS HealthcareNOMS HealthcareED Note-Physicianon [id number] Note-PhysicianED Note-Physician Basic Information Time Seen: NenoHeri [...] TID, # 15 tab(s), Refills(s) 0, Pharmacy: [facility] 1985, 177, cm, 06/11/24 9:05:00 [...] days 06/14/[address] [place] [address]- Business (1) Additional Instructions: Patient Education Viral [...] made to ensure accuracy, however, inadvertently computerized cake inspector mistakes may be present. Appropriate healthcare PPE [...] No. Family/Friends availablefor suppo (more content not included)...[facility] HospitalComment on above:Result Comment: Electronically Signed By: Heri Lazcano PA-C\.br\Date and Time Signed: 06/11/2510:45 EDT\.br\Electronically Co-Signed By: Elver Gonzales MD\.br\Date and Time Co-Signed: 06/18/24 00:53 EDTCBC (INCLUDES DIFF/PLT)on 70-58-3686Fuyizbeen (Bld) [#/Vol]0.043 10*3/uLNormal0-200[facility] Comment on above:Performed By: #### [id number] #### [facility] [place] [address], [address] [place], [place] [id number] Facer Operator: Nima Dong MDBasophils/100 WBC (Bld)0.5 %NormalQuest DiagnosticsComment on above:Performed By: #### [id number] #### [facility] [place] [address] [address] , [address] [place] [phone] Facer Operator: Nima Dong MDEosinophils (Bld) [#/Vol]0.068 10*3/uLNormal 15-500Quest DiagnosticsComment on above:Performed By: #### [id number] #### [facility] [place] [address], [address] [place], [place] [address] Facer Operator: Nima Merati MDEosinophils/100 WBC (Bld)0.8 %NormalQuest DiagnosticsComment on above:Performed By: #### [id number] #### [facility] of [place] [address] Facer Operator: Nima Dong MDErythrocyte distribution width (RBC) [Ratio] 12.1 %Jdnalr11.0-15.0Quest DiagnosticsComment on above:Performed By: #### [id number] #### [facility] [place] [address] Facer Operator: Nima Dong MDHematocrit (Bld) [Volume fraction]41.2 %Normal 35.0-45.0Quest DiagnosticsComment on above:Performed By: #### [id number] #### [facility] [place] [address] Facer Operator: Nima Dong MDHemoglobin (Bld) [Mass/Vol]13.9 g/dLNormal 11.7-15.5Quest DiagnosticsComment on above:Performed By: #### [id number] #### [facility] [place] [address] Facer Operator: Nima Dong MDLymphocytes (Bld) [#/Vol]2.788 10*3/uLNormal 850-3900Quest DiagnosticsComment on above:Performed By: #### [id number] #### [facility] [place] [address] Facer Operator: Nima Dong MDLymphocytes/100 WBC (Bld)32.8 %NormalQuest DiagnosticsComment on above:Performed By: #### [id number] #### [facility] [place] [address] Facer Operator: Nima Dong MDMCH (RBC) [Entitic mass]31.5 lhBqqion68.0-33.0 [facility] DiagnosticsComment on above:Performed By: #### [id number] #### [facility] of [address], [address] [place] [address] Facer Operator: Nima SPARKSCHC (RBC) [Mass/Vol]33.7 g/xLPargcw11.0-36.0 [facility] DiagnosticsComment on above:Result Comment: For adults, a slight decrease in the calculated MCHC value (in the range of 30 to 32 g/dL) is most likely not clinically significant; however, it should be interpreted with caution in correlation with other red cell parameters and the patient's clinical condition.Performed By: #### [id number] #### [facility] of [address], [address] [place] [address] Facer Operator: Nima Dong MDMCV (RBC) [Entitic vol]93.4 qNOygyux98.0-100.0 [facility] DiagnosticsComment on above:Performed By: #### [id number] #### [facility] of [address], [address] [place] [address] Facer Operator: Nima Dong MDMonocytes (Bld) [#/Vol]0.502 10*3/uLNormal 200-950Quest DiagnosticsComment on above:Performed By: #### [id number] #### [facility] of [address], [address] [place] [address] Facer Operator: Nima Dong MDMonocytes/100 WBC (Bld)5.9 %NormalQuest DiagnosticsComment on above:Performed By: #### [id number] #### [facility] of [address], [address] [place] [address] Facer Operator: Nima Dong MDNeutrophils (Bld) [#/Vol]5.1 10*3/uLNormal 1500-7800Quest DiagnosticsComment on above:Performed By: #### [id number] #### [facility] of [address], [address] [place] [address] Facer Operator: Nima Dong MDNeutrophils/100 WBC (Bld)60 %NormalQuest DiagnosticsComment on above:Performed By: #### [id number] #### [facility] of [place] [address] [address] , [address] [place] [address] Facer Operator: Nima Lemostedior mean volume (Bld) [Entitic vol]10.8 fLNormal7.5-12.5Quest DiagnosticsComment on above:Performed By: #### [id number] #### [facility] of [address], [address] [place] [address] Facer Operator: Nima RAZAlatemary beth (Bld) [#/Vol]280 10*3/uLNormal 140-400Quest DiagnosticsComment on above:Performed By: #### [id number] #### [facility] of [address], [address] [place] [address] Facer Operator: Nima Dong MDRBC (Bld) [#/Vol]4.41 10*6/uLNormal3.80-5.10 [facility]osticsComment on above:Performed By: #### [id number] #### [facility] of [address], [address] [place] [address] Facer Operator: Nima Dong MDNASSAU [facility]IV[facility] (Bld) [#/Vol]8.5 10*3/uLNormal3.8-10.8 [facility]osticsComment on above:Performed By: #### [id number] #### [facility] of [address], [address] [place] [address] Facer Operator: Nima Pride 64-92-6332Uuijv gap [Moles/Vol]12 mmol/L Normal6-16Fisher Brandenburg CenterComment on above:Performed By: #### [id number] #### [facility] [address] [place], [place] [address]Biqdixs [Mass/Vol]10.0 mg/dLNormal8.9-11.1Fisher Brandenburg CenterComment on above:Performed By: #### [id number] #### [facility] [address] [place], [place] [address]Zwkvtozc [Moles/Vol]105 mmol/LHwkftu623-637TjacjdOhiohealth Marion General HospitalComment on above:Performed By: #### [id number] #### [facility] [address] [place], [place] [address]TB8 [Moles/Vol]25 mmol/IUsydjg09-42DtmpfgOhiohealth Marion General Hospital Comment on above:Performed By: #### [id number] #### [facility] [address] [place], [place] [address]Lhxuvjazgh [Mass/Vol]0.6 mg/dLNormal0.5-1.3FFairfield Medical CenterComment on above:Performed By: #### [id number] #### [facility] [address] [place], [place] [address]Brssmty [Mass/Vol]117 mg/tZJvtkzc85-804ZrbbmpOhiohealth Marion General HospitalComment on above:Performed By: #### [id number] #### [facility] [address] [place], [place] [address]Rotpwjtir [Moles/Vol]4.2 mmol/LNormal3.5-5.3FFairfield Medical CenterComment on above:Performed By: #### [id number] #### [facility] [address] [place], [place] [address]Bduhrv [Moles/Vol]138 mmol/ABkggej796-701VbxalyOhiohealth Marion General HospitalComment on above:Performed By: #### [id number] #### [facility] [address] [place], [place] [address]Zpbx nitrogen [Mass/Vol]15 mg/dLNormal5-21Ohio[facility] General HospitalComment on above:Performed By: #### [id number] #### [facility] [address] [place], [place] [address]Lywa nitrogen/Creatinine [Mass ratio]25 No BflfoVdjc21-38VuyuazOhiohealth Marion General HospitalComment on above:Performed By: #### [id number] #### [facility] [address] [place], [place] [address]FUT w/ Auto Diffon 57-32-8347Fqxltsyfk/100 WBC (Bld)0.1 %Normal 0.0-2.0[facility] Marion General HospitalComment on above:Performed By: #### [id number] #### [facility] [address] [place] [address]Vkzvenfzd/Leukocytes Auto (Bld) [Pure # fraction]0.0 E9/LNormal 0.0-0.2FFairfield Medical CenterComment on above:Performed By: #### [id number] #### [facility] [address] [place] [address]Wbbkzwfggvv (Bld) [#/Vol]0.1 E9/LNormal0.0-0.5FFairfield Medical CenterComment on above:Performed By: #### [id number] #### [facility] [address] [place] [address]Mfunkoncbeu/100 WBC (Bld)0.4 %Normal0.0-8.0[facility] General HospitalComment on above:Performed By: #### [id number] #### [facility] [address] [place] [address]Ionzatjosui distribution width (RBC) [Ratio]13.5 %Normal 10.9-14.2FFairfield Medical CenterComment on above:Performed By: #### [id number] #### [facility] [address] [place] [address]Bkhhutbrqd (Bld) [Volume fraction]44.1 %Qvmxpy07.0-46.0[facility] General HospitalComment on above:Performed By: #### [id number] #### [facility] [address] [place] [address]Bcukflvnng (Bld) [Mass/Vol]15.1 g/aHKflunp81.0-16.0[facility] HospitalComment on above:Performed By: #### [id number] #### [facility] [address] [place] [address]Kpoqdxbqfhm (Bld) [#/Vol]1.1 E9/LNormal1.0-4.0[facility] General HospitalComment on above:Performed By: #### [id number] #### [facility] [address] [place] [address]Xaibiiapxui/100 WBC (Bld)7.4 %Low14.0-50.0[facility] General HospitalComment on above:Performed By: #### [id number] #### [facility] [address] [place] [address] 16[address]NQY (RBC) [Entitic mass]31.8 cmArxpjj86.0-34.0[facility] HospitalComment on above:Performed By: #### [id number] #### [facility] [address] [place] [address]VLOV (RBC) [Mass/Vol]34.2 g/tGCiwkwp35.4-36.0[facility] HospitalComment on above:Performed By: #### [id number] #### [facility] [address] [place] [address]RUK (RBC) [Entitic vol]93.0 nRKopgen79.0-100.0[facility] HospitalComment on above:Performed By: #### [id number] #### [facility] [address] [place] [address]Piblvpwgm (Bld) [#/Vol]0.4 E9/LNormal0.2-1.0[facility] HospitalComment on above:Performed By: #### [id number] #### [facility] [address] [place] [address]Ijsdffkpqve (Bld) [#/Vol]13.1 E9/LHigh2.0-7.5FFairfield Medical CenterComment on above:Performed By: #### [id number] #### [facility] [address] [place] [address]Kuodlybzdbj/100 WBC (Bld)89.6 %High36.0-75.0[facility] General HospitalComment on above:Performed By: #### [id number] #### [facility] [address] [place] [address]Zejtogul mean volume (Bld) [Entitic vol]8.6 fLNormal6.4-10.8 [facility] HospitalComment on above:Performed By: #### [id number] #### [facility] [address] [place] [address]Ktdfhdvsi (Bld) [#/Vol]269.0 E9/SKlhnsb978.0-500.0[facility] General HospitalComment on above:Performed By: #### [id number] #### [facility] [address] [place] [address]OQW (Bld) [#/Vol]4.7 E12/LNormal4.3-5.9[facility] HospitalComment on above:Performed By: #### [id number] #### [facility] [address] [place] [address]NEN corrected for nucl RBC Auto (Bld) [#/Vol]14.7 E9/LHigh 4.0-11.0[facility] General HospitalComment on above:Performed By: #### [id number] #### [facility] [address] [place] [address]LS Clinical Summaryon [id number] Clinical SummaryED Clinical Summary [address] [address] ED Clinical Summary Person Information Name: SOCORRO JOSEPH [facility] Age: 23 Years : 2000 Sex: Female Language: [place] Islander PCP: Raquel Nolan MD Marital Status: Single [...] 06/11/2024 11:55:54 06/11/2024 11:55:54 06/11/2024 11:55:54 ADDRESS: [address] [place] [id number] PHYS DOC NOTES: MEDICAL INFORMATION: Prescriptions Given: New Medications [facility], [address] [place] [id number], [phone] promethazine (promethazine 25 mg Tab) 1 Tablets [...] With: Address: When: Raquel [address] [place] [place] [address] Business (1) In 3 days 06/14/2024 DIAGNOSIS: Diarrhea, unspecified; Nausea vomiting and diarrheaNormalNovant Health Rehabilitation Hospitaler [facility] Patient Summaryon [id number] Patient SummaryED Patient Summary [address] [address] Patient Discharge Instructions Person Information Name: SOCORRO JOSEPH Age: 23 Years Arrival Date: 06/11/2024 08:54:52 Discharge Diagnosis: Diarrhea, unspecified; Nausea vomiting and diarrhea Primary Care Physician: Raquel Nolan MD Provider Information Primary Provider: Elver Gonzales MD Advanced Ecommerce Project Manager:Heri Lazcano PA-C The exam and treatment you received in the Emergency Department were for an urgent problem and are not intended as complete care. It is important that you follow up with a doctor, nurse practitioner,or physician???s assistant case manager for ongoing care. If your symptoms become [...] Address: When: [address] [address] [place] [address] Business (1) In 3 days 06/14/2024 In the event that this physician does not participate in your insurance network, please consult with your insurance company to find a nearby participating provider. Patient Education Materials: Viral Gastroenteritis, Adult A MESSAGE TO ALL PATIENTS REGARDING OPIOIDS PRESCRIPTION OPIOIDS: WHAT YOU NEED TO KNOW Prescription opioids can be used to help relieve pwzafsaz-on-qciloa pain and are often prescribed following a [...] with addiction, tell (more content not included)...NormalOhiohealth Marion General HospitalHep Func Panelon 92-14-1108Bhkkjue [Mass/Vol]4.9 g/dLNormal3.3-5.0[facility] General HospitalComment on above: Performed By: #### [id number] #### [facility] [address] [place], [place] [address]Rknwrmn/Globulin (S) [Mass conc ratio]1.8Sajuyk0.1-2.2FFairfield Medical CenterComment on above:Performed By: #### [id number] #### [facility] [address] [place], [place] [address]PVN [Catalytic activity/Vol]91 Int._Unit/SNhcecr09-22EntbuaOhiohealth Marion General HospitalComment on above:Performed By: #### [id number] #### [facility] [address] [place], [place] [address]BTU No additional P-5'-P [Catalytic activity/Vol]14 Int._Unit/L Normal6-46Ohio[facility] Marion General HospitalComment on above:Performed By: #### [id number] #### [facility] [address] [place], [place] [address]FAM [Catalytic activity/Vol]14 Int._Unit/LNormal5-43Ohio[facility] General HospitalComment on above:Performed By: #### [id number] #### [facility] [address] [place], [place] [address]Viynmykes [Mass/Vol]1.0 mg/dLNormal0.0-1.1FFairfield Medical CenterComment on above:Performed By: #### [id number] #### [facility] [address] [place], [place] [address]Okrsiblyg.direct [Mass/Vol]0.1 mg/dLNormal0.0-0.4FFairfield Medical CenterComment on above:Performed By: #### [id number] #### [facility] [address] [place], [place] [address]Djlebythf.indirect [Mass or moles/Vol]0.9 mg/dLNormal0.1-0.9 [facility] HospitalComment on above:Performed By: #### [id number] #### [facility] [address] [place] [address]Obudktdq (S) [Mass/Vol]2.7 g/dLNormal1.4-4.0[facility] General HospitalComment on above:Performed By: #### [id number] #### [facility] [address] [place], [place] [address]Eqzgvof [Mass/Vol]7.6 g/dLNormal6.0-7.8[facility] General HospitalComment on above:Performed By: #### [id number] #### [facility] [address] [place], [place] [address]Nutujj Levelon 97-99-1770Tpyfet [Catalytic activity/Vol]6 U/L Mtk30-06JefewuOhiohealth Marion General HospitalComment on above:Performed By: #### [id number] #### [facility] [address] [place], [place] [address]iHGEzq 47-18-5697qQUS427 mL/min/1.73 f7Hstmdp>=59Ohio[facility] Marion General HospitalComment on above:Performed By: #### [id number] #### [facility] [address] [place], [place] [address]GH Abdomen/Pelvis w/ Contraston 51-07-3097DV Abdomen/Pelvis w/ ContrastExam Date/Time: 04/15/2024 23:15 EST [...] 300 Contrast amount in ml's: 100NormalFisher [facility] CenterED Clinical Summary on 40-48-9014YX Clinical SummaryED Clinical Summary [place] [id number] ED Clinical Summary Person Information Name: SOCORRO JOSEPH [facility] Age: 23 Years : 2000 Sex: Female Language: [place]er PCP: Raquel Nolan MD Marital Status: Single [...] 04/16/2024 02:43:08 04/16/2024 02:43:08 04/16/2024 02:43:08 ADDRESS: [address] [place] [id number] PHYS DOC NOTES: MEDICAL INFORMATION: Prescriptions Given: New Medications [facility], [address] [place], [place] [id number], [phone] dicyclomine (Bentyl 10 mg Cap) 1 Capsules [...] Address: When: [address] [place] [address] Business (1) In 3 days 04/19/2024 Comments: [...] (nausea and vomiting)NormalYonas Stacy Medical CenterED Note-Physicianon [id number] Note-PhysicianED Note-Physician Basic Information Time Seen: Narinder [...] abdominal cramping, # 16 cap(s),Refills(s) 0, [facility], cm, 04/15/24 21:15:00 EST, [...] PRN Nausea/Vomiting, # 12 tab(s), Refills(s) 0, [facility], cm, 04/15/24 21:15:00 EST, [...] 4 mg Dis Tab, 4 mg, Oral kmckml67Pphamltrq [F] 25 mg + Sodium Chloride 0.9% IV Lorie 50 mL [F] 50 mL, IV Piggyback Zofran 4 mg/2 mL Injection, 4 mg, IV Push Disposition Plan Patient Discharge Condition Stable Discharge Dispo (more content not included)...[facility] Comment on above:Result Comment: Electronically Signed By: Narinder Kumar DO\.br\Date and Time Signed: 04/16/24 04:28 BGD Patient Summaryon [id number] Patient SummaryED Patient Summary [place] [id number] Patient Discharge Instructions Person Information Name: SOCORRO JOSEPH Age: 23 Years Arrival Date: 04/15/2024 20:32:57 Discharge Diagnosis: Abdominal pain, acute, epigastric; N&V (nausea and vomiting) Primary Care Physician: Raquel Nolan MD Provider Information Primary Provider: Narinder Kumar DO Advanced Ecommerce Project Manager:None The exam and treatment you received in the Emergency Department were for an urgent problem and are not intended as complete care. It is important that you follow up with a doctor, nurse practitioner,or physician???s assistant case manager for ongoing care. If your symptoms become [...] With: Address: When: Raquel Nolan [address] [place], [place] [id number] [facility] () In 3 days 04/19/2024 Comments: Call [...] opioids can be used to help relieve vjqmeoax-qs-cyykrz pain and are often prescribed following a [...] opioids. o Never use (more content not included)...[facility] w/ Auto Diffon 92-18-8155Pcwjiigvp/100 WBC (Bld)0.2 %Normal0.0-2.0[facility] General HospitalComment on above:Performed By: #### [id number] #### [facility] [address] [place] [address]Xylvfetdy/Leukocytes Auto (Bld) [Pure # fraction]0.0 E9/LNormal 0.0-0.2FFairfield Medical CenterComment on above:Performed By: #### [id number] #### [facility] [address] [place] [address]Pfssyzezfqj (Bld) [#/Vol]0.1 E9/LNormal0.0-0.5FFairfield Medical CenterComment on above:Performed By: #### [id number] #### [facility] [address] [place] [address] 45763Ldwvtwpgvhr/100 WBC (Bld)1.0 %Normal0.0-8.0[facility] General HospitalComment on above:Performed By: #### [id number] #### [facility] [address] [place] [address]33[address]Svthbwmrfvs distribution width (RBC) [Ratio]13.1 %Normal 10.9-14.2FFairfield Medical CenterComment on above:Performed By: #### [id number] #### [facility] [address] [place] [address] 15[address]Ogzggddtqe (Bld) [Volume fraction]39.0 %Aydasu87.0-46.0[facility] General HospitalComment on above:Performed By: #### [id number] #### [facility] [address] [place] [address]Srqeiaasxu (Bld) [Mass/Vol]13.4 g/sWWfyexx78.0-16.0[facility] HospitalComment on above:Performed By: #### [id number] #### [facility] [address] [place] [address]Ryvwlefjoza (Bld) [#/Vol]2.9 E9/LNormal1.0-4.0[facility] HospitalComment on above:Performed By: #### [id number] #### [facility] [address] [place] [address]Vdsuvcxwgna/100 WBC (Bld)28.0 %Mhvfig77.0-50.0[facility] HospitalComment on above:Performed By: #### [id number] #### [facility] [address] [place] [address]13[address]CJW (RBC) [Entitic mass]31.8 hdFddynb43.0-34.0[facility] HospitalComment on above:Performed By: #### [id number] #### [facility] [address] [place] [address] 087[address]EIRV (RBC) [Mass/Vol]34.3 g/gHErvtym44.4-36.0[facility] HospitalComment on above:Performed By: #### [id number] #### [facility] [address] [place] [address]27[address]MRW (RBC) [Entitic vol]92.9 lPWscvyn62.0-100.0[facility] HospitalComment on above:Performed By: #### [id number] #### [facility] [address] [place] [address] 830[address]Ictcwgwdc (Bld) [#/Vol]0.5 E9/LNormal0.2-1.0[facility] HospitalComment on above:Performed By: #### [id number] #### [facility] [address] [place] [address] 738[address]Mlpngeazmro (Bld) [#/Vol]6.9 E9/LNormal2.0-7.5FFairfield Medical CenterComment on above:Performed By: #### [id number] #### [facility] [address] [place] [address] 870[address]Kmqeeasjxpp/100 WBC (Bld)66.1 %Mvqrea21.0-75.0[facility] HospitalComment on above:Performed By: #### [id number] #### [facility] [address] [place], [place] [address]Qccfevie mean volume (Bld) [Entitic vol]8.2 fLNormal6.4-10.8 [facility] HospitalComment on above:Performed By: #### [id number] #### [facility] [address] [place], [place] [address]Opdrxszhc (Bld) [#/Vol]214.0 E9/GFsndwl213.0-500.0[facility] HospitalComment on above:Performed By: #### [id number] #### [facility] [address] [place] [address] 369[address]BFI (Bld) [#/Vol]4.2 E12/LLow4.3-5.9[facility] Comment on above:Performed By: #### [id number] #### [facility] [address] [place] [address]DHF corrected for nucl RBC Auto (Bld) [#/Vol]10.5 E9/LNormal 4.0-11.0[facility] HospitalComment on above:Performed By: #### [id number] #### [facility] [address] [place] [address] 61988UCQKWWSMSWmniofw By: Case Aponte on 35-27-1547Vwcoten [Mass/Vol]4.4 g/dLNormal3.3 - 5.0 gm/dLRemisol ChemAlbumin/Globulin [Mass ratio] 2.0 {ratio}Normal1.1 - 2.2Remisol ChemALP [Catalytic activity/Vol]78 [iU]/d Oboxtv65 - 98 Int._Unit/LRemisol ChemALT No additional P-5'-P [Catalytic activity/Vol]24 [iU]/dNormal6 - 46 Int._Unit/LRemisol ChemAnion gap [Moles/Vol] 10 mmol/LNormal6 - 16 mEq/LRemisol ChemAST [Catalytic activity/Vol]16 [iU]/d Normal5 - 43 Int._Unit/LRemisol ChemBilirubin [Mass/Vol]0.4 mg/dLNormal0.0 - 1.1 mg/dLRemisol ChemCalcium [Mass/Vol]8.8 mg/dLLow8.9 - 11.1 mg/dLRemisol Chem Chloride [Moles/Vol]106 mmol/HSbunpk130 - 111 mmol/LRemisol ChemCO2 [Moles/Vol] 27 mmol/FFrfari39 - 31 mmol/LRemisol ChemCreatinine [Mass/Vol]0.7 mg/dLNormal0.5 - 1.3 mg/dLRemisol WpwtmZSC937 mL/min/1.73 t8Dpccrp>=59mL/min/1.73 n7Uzloxxn ChemGlobulin (S) [Mass/Vol]2.2 g/dLNormal1.4 - 4.0 gm/dLRemisol ChemGlucose [Mass/Vol]94 mg/gXBvpgms25 - 199 mg/dLRemisol ChemLipase [Catalytic activity/Vol]8 U/LLow13 - 58 unit/LRemisol ChemPotassium [Moles/Vol]3.5 mmol/L Normal3.5 - 5.3 mmol/LRemisol ChemProtein [Mass/Vol]6.6 g/dLNormal6.0 - 7.8 gm/dLRemisol ChemSodium [Moles/Vol]139 mmol/XOrojjf802 - 145 mmol/LRemisol Chem Urea nitrogen [Mass/Vol]9 mg/dLNormal5 - 21 mg/dLRemisol ChemUrea nitrogen/Creatinine [Mass ratio]13 mg/tzDtpgtj65 - 20Remisol ChemCMPon 78-90-5801Oxhglxp [Mass/Vol]4.4 g/dLNormal3.3-5.0[facility] Comment on above:Performed By: #### [id number] #### [facility] [address], [place] [address]Hyidlxf/Globulin (S) [Mass conc ratio]2.7Ilebpy9.1-2.2[facility] CenterComment on above:Performed By: #### [id number] #### [facility] [address], [place] [address]EBY [Catalytic activity/Vol]78 Int._Unit/IZscsec96-08DiiklmOhiohealth Marion General HospitalComment on above:Performed By: #### [id number] #### [facility] [address], [place] [address]DIX No additional P-5'-P [Catalytic activity/Vol]24 Int._Unit/L Normal6-46[facility] HospitalComment on above:Performed By: #### [id number] #### [facility] [address], [place] [address]Ecnnh gap [Moles/Vol]10 mmol/LNormal6-16[facility] HospitalComment on above:Performed By: #### [id number] #### [facility] [address], [place] [address]BPD [Catalytic activity/Vol]16 Int._Unit/LNormal5-43[facility] HospitalComment on above:Performed By: #### [id number] #### [facility] [address], [place] [address]Zlmqfeafb [Mass/Vol]0.4 mg/dLNormal0.0-1.1FFairfield Medical CenterComment on above:Performed By: #### [id number] #### [facility] [address] [place] [address]Awmuxqr [Mass/Vol]8.8 mg/dLLow8.9-11.1FFairfield Medical CenterComment on above:Performed By: #### [id number] #### [facility] [address], [place] [address]Ykkkhpol [Moles/Vol]106 mmol/CWkkbgv500-773TckuabOhiohealth Marion General HospitalComment on above:Performed By: #### [id number] #### [facility] [address], [place] [address]MY3 [Moles/Vol]27 mmol/GUvyzwf46-27AkzedxOhiohealth Marion General Hospital Comment on above:Performed By: #### [id number] #### [facility] [address], [place] [address]Qgrntnulob [Mass/Vol]0.7 mg/dLNormal0.5-1.3FFairfield Medical CenterComment on above:Performed By: #### [id number] #### [facility] [address], [place] [address]Tvhmuowa (S) [Mass/Vol]2.2 g/dLNormal1.4-4.0[facility] HospitalComment on above:Performed By: #### [id number] #### [facility] [address], [place] [address]Ejektrc [Mass/Vol]94 mg/fAYomsqg13-137YikhoaOhiohealth Marion General HospitalComment on above:Performed By: #### [id number] #### [facility] [address] [place] [address]Tzesolbdz [Moles/Vol]3.5 mmol/LNormal3.5-5.3FFairfield Medical CenterComment on above:Performed By: #### [id number] #### [facility] [address], [place] [address]Yahtsie [Mass/Vol]6.6 g/dLNormal6.0-7.8[facility] HospitalComment on above:Performed By: #### [id number] #### [facility] [address], [place] [address]Aqjykj [Moles/Vol]139 mmol/UMrchjx494-415RpofdxOhiohealth Marion General HospitalComment on above:Performed By: #### [id number] #### [facility] [address], [place] [address]Ysbz nitrogen [Mass/Vol]9 mg/dLNormal5-21[facility] HospitalComment on above:Performed By: #### [id number] #### [facility] [address], [place] [address]Fkpr nitrogen/Creatinine [Mass ratio]13 No KulzhKhgxak37-25 [facility] HospitalComment on above:Performed By: #### [id number] #### [facility] [address] [place], [place] [address]MLZFKYPYNHLlqovej By: SYSTEM SYSTEM on 22-31-7980Ajnizktne/100 WBC (Bld)0.2 %Normal0.0 - 2.0 %Remisol HemeBasophils/Leukocytes Auto (Bld) [Pure # fraction]0.0 E9/LNormal0.0 - 0.2 E9/LRemisol HemeEosinophils (Bld) [#/Vol]0.1 E9/LNormal0.0 - 0.5 E9/LRemisol HemeEosinophils/100 WBC (Bld)1.0 %Normal0.0 - 8.0 %Remisol HemeErythrocyte distribution width (RBC) [Ratio]13.1 %Ponvln62.9 - 14.2 %Remisol HemeHematocrit (Bld) [Volume fraction]39.0 %Rerlfp50.0 - 46.0 % Remisol HemeHemoglobin (Bld) [Mass/Vol]13.4 g/zLEpnroc65.0 - 16.0 gm/dLRemisol HemeLymphocytes (Bld) [#/Vol]2.9 E9/LNormal1.0 - 4.0 E9/LRemisol Heme Lymphocytes/100 WBC (Bld)28.0 %Cpblmy92.0 - 50.0 %Remisol HemeMCH (RBC) [Entitic mass]31.8 cnAmjjxd76.0 - 34.0 pgRemisol HemeMCHC (RBC) [Mass/Vol]34.3 g/dL Ijmpjn86.4 - 36.0 gm/dLRemisol HemeMCV (RBC) [Entitic vol]92.9 uHHbtkwj72.0 - 100.0 fLRemisol HemeMonocytes (Bld) [#/Vol]0.5 E9/LNormal0.2 - 1.0 E9/LRemisol HemeMonocytes/100 WBC (Bld)4.7 %Normal4.0 - 14.0 %Remisol HemeNeutrophils (Bld) [#/Vol]6.9 E9/LNormal2.0 - 7.5 E9/LRemisol HemeNeutrophils/100 WBC (Bld)66.1 % Rqvivm90.0 - 75.0 %Remisol HemePlatelet mean volume (Bld) [Entitic vol]8.2 fL Normal6.4 - 10.8 fLRemisol HemePlatelets (Bld) [#/Vol]214.0 E9/RMopgaj220.0 - 500.0 E9/LRemisol HemeRBC (Bld) [#/Vol]4.2 E12/LLow4.3 - 5.9 E12/LRemisol Heme WBC corrected for nucl RBC Auto (Bld) [#/Vol]10.5 E9/LNormal4.0 - 11.0 E9/L Remisol HemeLipase Levelon 24-34-6162Bpiacw [Catalytic activity/Vol]8 U/LLow 13-58[facility] HospitalComment on above:Performed By: #### [id number] #### [facility] [address], [place] [address]hBRYwz 64-25-1243hGKW957 mL/min/1.73 e3Ptfvwj>=59Ohio[facility] HospitalComment on above:Performed By: #### [id number] #### [facility] [address], [place] [address]Fcewljjwnh Visit Summaryon 25-89-0681Lhszxrrqvy Visit Summary Ambulatory Visit Summary ERIK, SOCORRO [...] tablet to dissolve on tongue Pickup at [facility] 1985 New oseltamivir (Tamiflu 75 mg Cap) 1 Capsules By Mouth 2 times a day Influenza A Nausea BMI 27.0-27.9,adult Duration: 5 Days Pickup at [facility] 1985 Pharmacy Information [facility] 1985: [address] [place], [place] [id number] [phone] Medications and Immunizations Administered Given ondansetron 4 [...] you for choosing us for your care. [facility] Medicine Office/Clinic Noteon 81-39-4541Pbmyxy Medicine Office/Clinic NoteFarutland heights state hospital [facility] Office/Clinic Note Chief Complaint migraine, nausea HPI Staff 23 year old female presents with migraine, nausea, sinus congestion onset yesterday History of Present Illness I have reviewed and verified the staff HPI to be accurate for this encounter. Portions of this record have been created with voice recognition software. Occasional wrong-word or???sacau-r-qfbt??? substitutions may have occurred due to the [...] for tamiflu- sent to pharmacy. May use sbyc-ndr-kenfgga cold and flu medications per package instructions for symptomat ic treatment. Fluids/rest encouraged, PRN tylenol/ibuprofen for pain/fever, may need to alternate. Follow up with PCP if not improving over next 5-7 days, sooner or ER if significantly worsening. Patient/parent verbalized understanding of tx plan. Ordered: oseltamivir, 75 mg = 1 cap(s), Oral, BID, X 5 day(s), # 10 cap(s), Refills(s) 0, Pharmacy: [facility] 1985, 175.6, cm, 04/12/24 13:49:00 EST, Height/Length Dosing, 83.8, kg, 04/12/24 13:49:00 EST, Weight Dosing 2. Headache (R51.9: Headache, unspecified) As above in #1 May use Tylenol or ibuprofen for headache/ fever per package instructions. 3. Nausea (R11.0: Nausea) Patien (more content not included)...[facility]ville HospitalComment on above:Result Comment: Electronically Signed By: Charisse Russell\.br\Date and Time Signed: 04/12/24 18:34 ESTPatient Letter FTon [id number] Letter FTPatient Letter FT [address], [place] [phone] April 12, 2024 SOCORRO JOSEPH [address] [place] [address] : 2000 Please excuse SOCORRO JOSEPH from work . Date and/or Time of Absence: From: 04/15/24 To: 04/15/2024 May return to work on: 04/16/2024 Restrictions: None Comments: Please excuse due to an acute illness. Provider Signature: AZALIA Arizmendi Nurse Practitioner [facility] [address] [address] [facility] HospitalPatient Letter FTMCPatient Letter FT [address], [facility] [place] [phone] April 12, 2024 SOCORRO JOSEPH [address] [place] [address] : 2000 Please excuse SOCORRO JOSEPH from work . Date and/or Time of Absence: From: 04/12/2024 To: 04/13/2024 May return to work on: 04/14/2024 Restrictions: None Comments: Please excuse due to an acute illness. Provider Signature: AZALIA Arizmendi Nurse Practitioner [facility] [address] [place] [address] [facility] CenterED Note-Physicianon 25-42-1891FY Note-PhysicianED Note-Physician Basic Information Time Seen: eHri Lazcano PA-C 03/20/2024 07:21 Chief Complaint Pt [...] COVID testing performed. Has been trying some fiwh-zob-fqteizf cough and cold medications. Muscle discharge now [...] 10 day(s), # 20 tab(s), Refills(s) 0, Pharmacy:[facility] 1985, 175.6, cm, 03/20/24 7:23:00 EST, Height/Length Dosing, 80, kg, 03/20/24 7:23:00 EST, Weight Dosing dextromethorphan-promethazine, 5 mL, Oral, q6hr for cough for 5 day(s), 200 mL, Refill(s) 0, [facility], 175.6, cm, 03/20/24 7:23:00 [...] days 03/23/[address] [place] [address]- Business (1) Additional Instructions: Patient Education Cough, [...] Every effort was mad (more content not included)...NormalOhiohealth Marion General HospitalComment on above:Result Comment: Electronically Signed By: Heri Lazcano PA-C\.br\Date and Time Signed: 03/20/2409:21 EST\.br\Electronically Co-Signed By: Roque Harris DO\.br\Date and Time Co-Signed: 03/21/24 08:01 ESTBMPon 97-03-4891Vkxry gap [Moles/Vol]10 mmol/LNormal6-16[facility] HospitalComment on above: Performed By: #### [id number] #### [facility] [address], [place] [address]Rcllnio [Mass/Vol]9.4 mg/dLNormal8.9-11.1FFairfield Medical CenterComment on above:Performed By: #### [id number] #### [facility] [address], [place] [address]Qhtzinnm [Moles/Vol]104 mmol/NFkzdah284-682IgheclOhiohealth Marion General HospitalComment on above:Performed By: #### [id number] #### [facility] [address], [place] [address]VU8 [Moles/Vol]28 mmol/VVwftve07-94VefizwOhiohealth Marion General Hospital Comment on above:Performed By: #### [id number] #### [facility] [address], [place] [address]Xxcmmkcncw [Mass/Vol]0.6 mg/dLNormal0.5-1.3FFairfield Medical CenterComment on above:Performed By: #### [id number] #### [facility] [address], [place] [address]Ocfumam [Mass/Vol]93 mg/uCPfushf44-193EbudlqOhiohealth Marion General HospitalComment on above:Performed By: #### [id number] #### [facility] [address], [place] [address]Ipbalpulo [Moles/Vol]4.2 mmol/LNormal3.5-5.3FFairfield Medical CenterComment on above:Performed By: #### [id number] #### [facility] [address], [place] [address]Jfagbw [Moles/Vol]138 mmol/HDijinc489-603MhnrsmOhiohealth Marion General HospitalComment on above:Performed By: #### [id number] #### [facility] [address], [place] [address]Ytej nitrogen [Mass/Vol]15 mg/dLNormal5-21[facility] HospitalComment on above:Performed By: #### [id number] #### [facility] [address] [place] [address]Ojfs nitrogen/Creatinine [Mass ratio]25 No IxuecMykm46-63InvlbzOhiohealth Marion General HospitalComment on above:Performed By: #### [id number] #### [facility] [address] [place] [address]IDH w/ Auto Diffon 43-59-1060Vcmklnecv/100 WBC (Bld)0.7 %Normal 0.0-2.0[facility] HospitalComment on above:Performed By: #### [id number] #### [facility] [address] [place] [address]Dkiikukxe/Leukocytes Auto (Bld) [Pure # fraction]0.1 E9/LNormal 0.0-0.2FFairfield Medical CenterComment on above:Performed By: #### [id number] #### [facility] [address] [place] [address]Pcgoxvhhlwf (Bld) [#/Vol]0.3 E9/LNormal0.0-0.5FFairfield Medical CenterComment on above:Performed By: #### [id number] #### [facility] [address] [place] [address]Yeqjwnoqsps/100 WBC (Bld)3.9 %Normal0.0-8.0[facility] HospitalComment on above:Performed By: #### [id number] #### [facility] [address] [place] [address] 189[address]Zyjqtimfksv distribution width (RBC) [Ratio]12.7 %Normal 10.9-14.2FFairfield Medical CenterComment on above:Performed By: #### [id number] #### [facility] [address] [place] [address]Zigfctcoau (Bld) [Volume fraction]38.7 %Vhiwah94.0-46.0[facility] HospitalComment on above:Performed By: #### [id number] #### [facility] [address] [place] [address]Gibtjdvvjl (Bld) [Mass/Vol]13.4 g/iGHepboc72.0-16.0[facility] HospitalComment on above:Performed By: #### [id number] #### [facility] [address] [place] [address]Lfphieslvhv (Bld) [#/Vol]2.2 E9/LNormal1.0-4.0[facility] HospitalComment on above:Performed By: #### [id number] #### [facility] [address] [place] [address]Gjcdtddzytt/100 WBC (Bld)31.7 %Nqvdvi81.0-50.0[facility] HospitalComment on above:Performed By: #### [id number] #### [facility] [address] [place] [address] 122[address]LVI (RBC) [Entitic mass]32.2 qiMqlhjz00.0-34.0[facility] HospitalComment on above:Performed By: #### [id number] #### [facility] [address] [place] [address]80[address]WHQA (RBC) [Mass/Vol]34.5 g/xRAaiyqw53.4-36.0[facility] HospitalComment on above:Performed By: #### [id number] #### [facility] [address] [place] [address]XRA (RBC) [Entitic vol]93.1 dEWuntle63.0-100.0[facility] HospitalComment on above:Performed By: #### [id number] #### [facility] [address] [place] [address] 803[address]Vnpibqgzs (Bld) [#/Vol]0.5 E9/LNormal0.2-1.0[facility] HospitalComment on above:Performed By: #### [id number] #### [facility] [address] [place] [address]Tcevhvqmfgb (Bld) [#/Vol]4.0 E9/LNormal2.0-7.5FFairfield Medical CenterComment on above:Performed By: #### [id number] #### [facility] [address] [place] [address]60[address]Fngzextbbjw/100 WBC (Bld)56.8 %Qsbtvh94.0-75.0[facility] HospitalComment on above:Performed By: #### [id number] #### [facility] [address] [place] [address]Jkelacgo mean volume (Bld) [Entitic vol]8.6 fLNormal6.4-10.8 [facility] HospitalComment on above:Performed By: #### [id number] #### [facility] [address] [place] [address] 187[address]Nqfssvtig (Bld) [#/Vol]264.0 E9/AYowpuw066.0-500.0[facility] HospitalComment on above:Performed By: #### [id number] #### [facility] [address] [place] [address]ULS (Bld) [#/Vol]4.2 E12/LLow4.3-5.9[facility] Comment on above:Performed By: #### [id number] #### [facility] [address] [place] [address] [place] [address]PLZ corrected for nucl RBC Auto (Bld) [#/Vol]7.0 E9/LNormal 4.0-11.0[facility] Hospitaler [facility] CenterComment on above:Performed By: #### [id number] #### [facility] [address], [place] [address]IVYOKWQJRUcbjhyj By: SYSTEM SYSTEM on 55-61-5627Bmalvxb [Mass/Vol]4.3 g/dLNormal3.3 - 5.0 gm/dLRemisol ChemAlbumin/Globulin [Mass [...] [Mass/Vol]9.4 mg/dLNormal8.9 - 11.1 mg/dLRemisol ChemChloride [Moles/Vol]104 mmol/BPluiob392 - 111 mmol/LRemisol ChemCO2 [Moles/Vol]28 mmol/L Hosktz35 - 31 mmol/LRemisol ChemCreatinine [Mass/Vol]0.6 mg/dLNormal0.5 - 1.3 mg/dLRemisol EcajgKQY464 mL/min/1.73 g3Onjlnf>=59mL/min/1.73 d7Tpectyz Chem Globulin (S) [Mass/Vol]2.7 g/dLNormal1.4 - 4.0 gm/dLRemisol ChemGlucose [Mass/Vol]93 mg/nWEutnwb12 - 199 mg/dLRemisol ChemLipase [Catalytic activity/Vol]6 U/LLow13 - 58 unit/LRemisol ChemPotassium [Moles/Vol]4.2 mmol/L Normal3.5 - 5.3 mmol/LRemisol ChemProtein [Mass/Vol]7.0 g/dLNormal6.0 - 7.8 gm/dLRemisol ChemSodium [Moles/Vol]138 mmol/JCtzjae752 - 145 mmol/LRemisol Chem Urea nitrogen [Mass/Vol]15 mg/dLNormal5 - 21 mg/dLRemisol ChemUrea nitrogen/Creatinine [Mass ratio]25 mg/dkQynp56 - 20Remisol ChemED Clinical Summaryon [id number] Clinical SummaryED Clinical Summary [place] [id number] ED Clinical Summary Person Information Name: SOCORRO JOSEPH [facility] Age: 23 Years : 2000 Sex: Female Language: [place] PCP: Raquel Nolan MD Marital Status: Single [...] 03/20/2024 09:23:46 03/20/2024 09:23:46 03/20/2024 09:23:46 ADDRESS: [address] [place] [id number] PHYS DOC NOTES: MEDICAL INFORMATION: Prescriptions Given: New Medications [facility], [address] [place] [id number], [phone] amoxicillin-clavulanate (Augmentin 875 mg oral tablet) 1 [...] With: Address: When: Raquel Nolan [place] [place] [address] Business (1) In 3 days 03/23/2024 DIAGNOSIS: Abdominal pain; CoughNormalFisher Tensas Medical CenterED Patient Summaryon [id number] Patient SummaryED Patient Summary [address] [address] Patient Discharge Instructions Person Information Name: SOCORRO JOSEPH Age: 23 Years Arrival Date: 03/20/2024 07:17:01 Discharge Diagnosis: Abdominal pain; Cough Primary Care Physician: Raquel Nolan MD Provider Information Primary Provider: Roque Harris DO Advanced Ecommerce Project Manager:Heri Lazcano PA-C The exam and treatment you received in the Emergency Department were for an urgent problem and are not intended as complete care. It is important that you follow up with a doctor, nurse practitioner,or physician???s assistant case manager for ongoing care. If your symptoms become [...] Address: When: [address] [address] [place] [address] Business (1) In 3 days 03/23/2024 In the event that this physician does not participate in your insurance network, please consult with your insurance company to find a nearby participating provider. Patient Education Materials: Cough, Adult; Abdominal Pain, Adult A MESSAGE TO ALL PATIENTS REGARDING OPIOIDS PRESCRIPTION OPIOIDS: WHAT YOU NEED TO KNOW Prescription opioids can be used to help relieve zvionidq-df-xgimqs pain and are often prescribed following a [...] tell your health care (more content not included)...NormalOhiohealth Marion General HospitalExtra Blueon 38-79-7017Ixzu Collected PlasmaYesInvalid Interpretation CodeOhiohealth Marion General HospitalComment on above:Performed By: #### [id number] #### [facility] [address] [place], [place] [address]EVODNZVUUOPlgyjkw By: Rachael San on 03-20-2024 Basophils/100 WBC (Bld)0.7 %Normal0.0 - 2.0 %Remisol HemeBasophils/Leukocytes Auto (Bld) [Pure # fraction]0.1 E9/LNormal0.0 - 0.2 E9/LRemisol HemeEosinophils (Bld) [#/Vol]0.3 E9/LNormal0.0 - 0.5 E9/LRemisol HemeEosinophils/100 WBC (Bld) 3.9 %Normal0.0 - 8.0 %Remisol HemeErythrocyte distribution width (RBC) [Ratio] 12.7 %Xsvhqq32.9 - 14.2 %Remisol HemeHematocrit (Bld) [Volume fraction]38.7 % Yvygef16.0 - 46.0 %Remisol HemeHemoglobin (Bld) [Mass/Vol]13.4 g/aACoexhj10.0 - 16.0 gm/dLRemisol HemeLymphocytes (Bld) [#/Vol]2.2 E9/LNormal1.0 - 4.0 E9/L Remisol HemeLymphocytes/100 WBC (Bld)31.7 %Chapcn78.0 - 50.0 %Remisol HemeMCH (RBC) [Entitic mass]32.2 hmEnktvq71.0 - 34.0 pgRemisol HemeMCHC (RBC) [Mass/Vol] 34.5 g/dSRgngez63.4 - 36.0 gm/dLRemisol HemeMCV (RBC) [Entitic vol]93.1 fLNormal 80.0 - 100.0 fLRemisol HemeMonocytes (Bld) [#/Vol]0.5 E9/LNormal0.2 - 1.0 E9/L Remisol HemeMonocytes/100 WBC (Bld)6.9 %Normal4.0 - 14.0 %Remisol Heme Neutrophils (Bld) [#/Vol]4.0 E9/LNormal2.0 - 7.5 E9/LRemisol HemeNeutrophils/100 WBC (Bld)56.8 %Magsdr98.0 - 75.0 %Remisol HemePlatelet mean volume (Bld) [Entitic vol]8.6 fLNormal6.4 - 10.8 fLRemisol HemePlatelets (Bld) [#/Vol]264.0 E9/IOgbeib028.0 - 500.0 E9/LRemisol HemeRBC (Bld) [#/Vol]4.2 E12/LLow4.3 - 5.9 E12/LRemisol HemeWBC corrected for nucl RBC Auto (Bld) [#/Vol]7.0 E9/LNormal4.0 - 11.0 E9/LRemisol HemeHep Func Panelon 41-76-0987Rcezwsx [Mass/Vol]4.3 g/dL Normal3.3-5.0[facility] HospitalComment on above:Performed By: #### [id number] #### [facility] [address] [place], [place] [address]Xzxncbp/Globulin (S) [Mass conc ratio]1.0Qtrrbg2.1-2.2Fisher Brandenburg CenterComment on above:Performed By: #### [id number] #### [facility] [address], [place] [address]MVN [Catalytic activity/Vol]110 Int._Unit/QAvik70-80EhspgxOhiohealth Marion General HospitalComment on above:Performed By: #### [id number] #### [facility] [address], [place] [address]FFL No additional P-5'-P [Catalytic activity/Vol]26 Int._Unit/L Normal6-46Ohio[facility] Marion General HospitalComment on above:Performed By: #### [id number] #### [facility] [address], [place] [address]XMK [Catalytic activity/Vol]16 Int._Unit/LNormal5-43Ohio[facility] General HospitalComment on above:Performed By: #### [id number] #### [facility] [address], [place] [address]Mfuvildvx [Mass/Vol]0.7 mg/dLNormal0.0-1.1FFairfield Medical CenterComment on above:Performed By: #### [id number] #### [facility] [address], [place] [address]Oztvbldjm.direct [Mass/Vol]0.1 mg/dLNormal0.0-0.4FFairfield Medical CenterComment on above:Performed By: #### [id number] #### [facility] [address] [place] [address]Jnbrmldnz.indirect [Mass or moles/Vol]0.6 mg/dLNormal0.1-0.9 [facility] HospitalComment on above:Performed By: #### [id number] #### [facility] [address] [place] [address]Xcyvutxr (S) [Mass/Vol]2.7 g/dLNormal1.4-4.0[facility] Marion General HospitalComment on above:Performed By: #### [id number] #### [facility] [address] [place] [address]Opgultd [Mass/Vol]7.0 g/dLNormal6.0-7.8[facility] General HospitalComment on above:Performed By: #### [id number] #### [facility] [address] [place] [address]Zstjmn Levelon 58-14-6097Xhdcrv [Catalytic activity/Vol]6 U/L Asa39-30VswjdzOhiohealth Marion General HospitalComment on above:Performed By: #### [id number] #### [facility] [address] [place] [address] 79[address]XXERCSDBUutbwka By: Radha Case on 02-24-5734QOH.beta subunit (U) [Moles/Vol]NegativeNormalFT Man SeroU BetaHcg Qualon 30-93-4062VRH.beta subunit (U) [Moles/Vol]NegativeNormalOhiohealth Marion General HospitalComment on above:Performed By: #### [id number] #### [facility] [address], [place] [address]MI with Cult Rflxon 19-44-7063Gwohwmqm Auto Ql (U)TraceNormal TraceOhiohealth Marion General HospitalComment on above:Performed By: #### [id number] #### [facility] [address], [place] [address]Ascszpqrb Ql (U)NegativeNormalNegProMedica Bay Park HospitalComment on above:Performed By: #### [id number] #### [facility] [address], [place] [address]Jnyxmqz (U)ClearNormalClearOhiohealth Marion General HospitalComment on above:Performed By: #### [id number] #### [facility] [address], [place] [address]Btlkw (U)YellowNormalYellowOhiohealth Marion General HospitalComment on above:Result Comment: Microscopic readings are only performed on those samples that meet specific criteria set forth by [facility].Performed By: #### [id number] #### [facility] [address], [place] [address]Dnzsannllh cells.squamous Auto (Urine sed) [#/Area]3-4Invalid Interpretation CodeOhiohealth Marion General HospitalComment on above:Performed By: #### [id number] #### [facility] [address], [place] [address]Ezgvuqa Ql (U)NegativeNormalNegProMedica Bay Park Hospital Comment on above:Performed By: #### [id number] #### [facility] [address], [place] [address]Ctymyvqesd Auto test strip (U) [Mass/Vol]3+ mg/dLAbnormal [facility] HospitalComment on above:Performed By: #### [id number] #### [facility] [address], [place] [address]Hdnpwpz Auto test strip Ql (U)NegativeNormalNegativeOhiohealth Marion General HospitalComment on above:Performed By: #### [id number] #### [facility] [address], [place] [address]Uvwwwahkm esterase Auto test strip Ql (U)NegativeNormalNegative [facility] HospitalComment on above:Performed By: #### [id number] #### [facility] [address] [place] [address]Tnoqk Auto Ql (U)TraceNormalNegativeOhiohealth [facility] Comment on above:Performed By: #### [id number] #### [facility] [address] [place] [address] 137[address]Niilkzd Auto test strip Ql (U)NegativeNormalNegativeOhiohealth Marion General HospitalComment on above:Performed By: #### [id number] #### [facility] [address] [place] [address] 74799rZ (U)7.5 [pH]Invalid Interpretation Code5.0-9.0[facility] HospitalComment on above:Performed By: #### [id number] #### [facility] [address] [place] [address]Sacvjgm Ql (U)NegativeNormalNegativeOhiohealth [facility] General Hospital Comment on above:Performed By: #### [id number] #### [facility] [address] [place] [address] 17300LFK Ql (U)5-20Kjykosze1-2AzdkeoFairfield Medical CenterComment on above:Performed By: #### [id number] #### [facility] [address] [place] [address]Mzdovxdy gravity (U) [Rel density]1.012Invalid Interpretation Code1.005-1.030[facility] HospitalComment on above:Performed By: #### [id number] #### [facility] [address], [place] [address]Bjahygzsntqi (U) [Mass/Vol]NegativeNormalNegativeNovant Health Rehabilitation Hospitaler Brandenburg CenterComment on above:Performed By: #### [id number] #### [facility] [address], [place] [address]IAM Auto (Urine sed) [#/Area]5-7Slswqi6-3Ehhzif [facility]enburg CenterComment on above:Performed By: #### [id number] #### [facility] [address], [place] [address]Ubkw of Urine collection methodClean CatchNormMarion HospitalComment on above:Performed By: #### [id number] #### [facility] [address], [place] [address]VOJGCCOMGWOexfxst By: SYSTEM SYSTEM on 40-35-9593Fyunbiwi Auto Ql (U)Trace /HPFNormalTrace/HPFFT UA Auto SSBilirubin Ql (U)NegativeNormal Negativemg/dLCANCER TRE[facility] UA Auto SSClarity (U)Clear (03/20/24 7:29 AM)NormalClearFBONE AND JOINT [facility] [place] [facility] UA Auto SSColor (U)Yellow 1 (03/20/24 7:29 AM)NormalYellowCANCER TREATMENT [facility] UA Auto SSComment on above:Interpretive Data: Microscopic readings are only performed on those samples that meet specific criteria set forth by [facility].Epithelial cells.squamous Auto (Urine sed) [#/Area]3-4 graded/HPFInvalid Interpretation CodeFT UA Auto SSGlucose Ql (U)NegativeNormalNegativemg/dLCANC[facility] UA Auto SS Hemoglobin Auto test strip (U) [Mass/Vol]3+ mg/dLInvalid Interpretation Code Negativemg/dLCANCER [facility] UA Auto SSKetones Auto test strip Ql (U)NegativeNormal Negativemg/dLFT UA Auto SSLeukocyte esterase Auto test strip Ql (U)Negative NormalNegativeLeu/uLFT UA Auto SSMucus Auto Ql (U)Trace graded/LPFNormal Negativegraded/LPFFTMC UA Auto SSNitrite Auto test strip Ql (U)NegativeNormal Negativemg/dLFTMC UA Auto SSpH (U)7.5 *NA* (03/20/24 7:29 AM)Invalid Interpretation Code5.0 - 9.0[facility] UA Auto SSProtein Ql (U)NegativeNormalNegativemg/dLCANC[facility] UA Auto SSRBC Ql (U)4-20 graded/HPFInvalid Interpretation Code0-3graded/HPFCANCER [facility]REAT[facility]ENT[facility] UA Auto SSSpecific gravity (U) [Rel density]1.012 *NA* (03/20/24 7:29 AM)Invalid Interpretation Code1.005 - 1.030[facility] UA Auto SS Urobilinogen (U) [Mass/Vol]NegativeNormalNegativemg/dLCANC[facility] UA Auto SSWBC Auto (Urine sed) [#/Area]0-5 graded/HPFNormal0-5graded/HPFCANCER [facility] UA Auto SSURINALYSIS Ordered By: Chandana Tellez on 67-24-1734UC Spec DescClean Catch (03/20/24 7:29 AM)NormalCANCER TREATMENT CENTERS OF [facility] UA Auto SSXR Abdomen Series w/ Chest 1 Viewon 55-63-3688LJ Abdomen Series w/ Chest 1 ViewExam Date/Time: [...] in mGy = na DAP = naNormalOhiohealth Marion General HospitaleGFRon 17-85-4257nDQS986 mL/min/1.73 m2 Normal>=[address] [place], [place] [address]Comment on above:Performed By: #### [id number] #### [facility] [address] [place], [place] [address]Qxdsqycjhc Visit Summaryon 95-21-4053Cwzfmeehqr Visit Summary Ambulatory Visit Summary SOCORRO JOSEPH [...] pneumonia Cough Duration: 5 Days [facility] [address] [facility]: [address] [facility] [place], [place] [id number] [phone] Allergies No Known Allergies Problems Ongoing - [...] you for choosing us for your care. [facility] Medicine Office/Clinic Noteon 97-45-8593Ewmgxi Medicine Office/Clinic NoteFarutland heights state hospital Medicine Office/Clinic Note Chief Complaint cough [...] created with voice recognition software. Occasional wrong-word or???rhbdy-x-ilcn??? substitutions may have occurred due to the [...] diagnosed with pneumonia. She has been using kbay-dli-igummgt medications like DayQuil, Tylenol Cold and flu [...] for 5 day(s), 200 mL, Refill(s) 0, [facility] 1985, 175, cm, 03/15/24 15:52:00 EST, Height/Length Dosing, 84, kg, 03/15/24 15:52:00 EST, Weight Dosing Rapid COVID POC 54539 XR Chest 2 Views Cough (R05.9: Cough, unspecified) Ordered: brompheniramine/dextromethorphan/PSE, 10 mL, Oral, QID for 5 day(s), 200 mL, Refill(s) 0, [facility] 1985, 175, cm, 03/15/24 15:52:00 EST, Height/Length Dosing, 84, kg, 03/15/24 15:52:00 EST, Weight Dosing Rapid COVID POC 33842 XR Chest 2 Views Follow-up With When Contact Information An LOERA, [address] [place] [address]- Additional Instructions: Patient Education Cough, Adult, Uwvb-la-Hslr Viral Respiratory Infection, Imyd-Ss-Ryqc Problem List/Past Medical History Ongoing Depression Smoker Historical Smoker Supervision of normal in second trimester Procedure/Surgical History Insertion of IUD (07/18/2019), Tubal ligation. Medications Bromfed DM oral syrup, 10 mL, Oral, QID Allergies No Known Allergies Social History Alcohol - Denies Alcohol Use, 06/29/2023 Liquor, 1-2 times per month, 06/16/2020 DENIES, Household alcohol concerns: No., 12/25/2019 Employment/School Employed, Highest education (more content not included)...[place] HospitalComment on above:Result Comment: Electronically Signed By: Charisse Russell\.br\Date and Time Signed: 03/15/24 16:45 ESTFarutland heights state hospital Medicine Office/Clinic NoteFami Medicine Office/Clinic Note [...] for 5 day(s), 200 mL, Refill(s) 0, [facility] 1985, 175, cm, 03/15/24 15:52:00 EST, Height/Length Dosing, 84, kg, 03/15/24 15:52:00 EST, Weight Dosing Rapid COVID POC 39023 XR Chest 2 Views 2. Cough (R05.9: Cough, unspecified) Ordered: brompheniramine/dextromethorphan/PSE, 10 mL, Oral, QID for 5 day(s), 200 mL, Refill(s) 0, [facility] 1985, 175, cm, 03/15/24 15:52:00 EST, Height/Length Dosing, 84, kg, 03/15/24 15:52:00 EST, Weight Dosing Rapid COVID POC 40520 XR Chest 2 Views Follow-up No qualifying [...] IMPRESSION: NO RADIOGRAPHIC EVIDENC (more content not included)...[facility] HospitalComment on above:Result Comment: Electronically Signed By: Charisse [...] in mGy = na DAP = naNormalFisher Brandenburg CenterIGP,APTIMA HPV,AGE GDLNon 51-25-9578UOH GDLN ACOG TESTINGNote.NOMS HealthcareComment on above:TESTS RESULT FLAG UNITS REF RANGE LAB Clinician Provided Cytology Information Source.............Cervix;Endocervix No. of containers..01 ThinPrep Vial Age Algo ACOG Rebecca... -03 05 FLAG LEGEND: L-Low Normal,H-High Normal,LL-Alert Low,HH-Alert High <-Panic Low,>-Panic High,A-Abnormal,AA-Critical Abnormal Performed at: 01 =G [facility] [address] [place] [address] Rosalia Harp MD, IGP, RFX APTIMA HPV ASCUNote.NOMS HealthcareComment on above:TESTS RESULT FLAG UNITS REF RANGE LAB DIAGNOSIS: 02 NEGATIVE FOR INTRAEPITHELIAL LESION OR MALIGNANCY. Specimen adequacy: 02 Satisfactory for evaluation. No endocervical component is identified. Performed by: 02 Hillary Campa, Fishing Vessel Deckhand ([facility]) . 02 Note: Note 02 [...] Low,>-Panic High,A-Abnormal,AA-Critical Abnormal Performed at: [address] [facility] [address] [place] [address] Rosalia Harp MD, Performed at: =G - [facility] [address] [id number] [facility] Facility Supervisor: Rosalia Harp MD, Phone: [phone] Performed at: [facility] [address] [id number] Solid Waste Facility Supervisor: Rosalia Harp MD, Phone: [phone] BRUSH-SPATULA CERVIX ENDOCERVIX [facility] w/ Auto Diffon 82-07-4755Hapzaszjm/100 WBC (Bld)0.5 %Normal0.0-2.0[facility] HospitalComment on above:Performed By: #### [id number] #### [facility] [address] [place] [address]77[address]Syrgyvmqq/Leukocytes Auto (Bld) [Pure # fraction]0.0 E9/LNormal 0.0-0.2FFairfield Medical CenterComment on above:Performed By: #### [id number] #### [facility] [address] [place] [address] 28[address]Nmetrcxpnkk (Bld) [#/Vol]0.1 E9/LNormal0.0-0.5FFairfield Medical CenterComment on above:Performed By: #### [id number] #### [facility] [address] [place] [address] 866[address]Bjtjijhzauc/100 WBC (Bld)1.1 %Normal0.0-8.0[facility] HospitalComment on above:Performed By: #### [id number] #### [facility] [address] [place] [address]Mxmiszupudj distribution width (RBC) [Ratio]13.1 %Normal 10.9-14.2FFairfield Medical CenterComment on above:Performed By: #### [id number] #### [facility] [address] [place] [address] 558[address]Kvxrzsjnsc (Bld) [Volume fraction]39.5 %Qjsbfk40.0-46.0[facility] HospitalComment on above:Performed By: #### [id number] #### [facility] [address] [place] [address]Mxhajvfpbd (Bld) [Mass/Vol]13.8 g/dMYvmuah24.0-16.0[facility] HospitalComment on above:Performed By: #### [id number] #### [facility] [address] [place] [address]Qizayajgacg (Bld) [#/Vol]3.0 E9/LNormal1.0-4.0[facility] HospitalComment on above:Performed By: #### [id number] #### [facility] [address] [place] [address]Bhcpssbbjyh/100 WBC (Bld)46.0 %Zcgljm65.0-50.0[facility] HospitalComment on above:Performed By: #### [id number] #### [facility] [address] [place] [address] 78622MTR (RBC) [Entitic mass]32.4 dhQkrpjh26.0-34.0[facility] HospitalComment on above:Performed By: #### [id number] #### [facility] [address] [place] [address] 525[address]LNUE (RBC) [Mass/Vol]34.8 g/bZOgerxp27.4-36.0[facility] HospitalComment on above:Performed By: #### [id number] #### [facility] [address] [place] [address] 22373MKP (RBC) [Entitic vol]93.0 iEEfrgrn65.0-100.0[facility] HospitalComment on above:Performed By: #### [id number] #### [facility] [address] [place] [address] 01417Sdbsxhwxx (Bld) [#/Vol]0.4 E9/LNormal0.2-1.0[facility] HospitalComment on above:Performed By: #### [id number] #### [facility] [address] [place] [address] 75[address]Kojszinmfsu (Bld) [#/Vol]3.0 E9/LNormal2.0-7.5FFairfield Medical CenterComment on above:Performed By: #### [id number] #### [facility] [address] [place] [address] 199[address]Hjfhblvmqeo/100 WBC (Bld)46.2 %Vhbzfs21.0-75.0[facility] HospitalComment on above:Performed By: #### [id number] #### [facility] [address], [place] [address]Tvonoxiq mean volume (Bld) [Entitic vol]8.7 fLNormal6.4-10.8 [facility] HospitalComment on above:Performed By: #### [id number] #### [facility] [address], [place] [address]Rgkyavztt (Bld) [#/Vol]254.0 E9/NWydttk407.0-500.0[facility] HospitalComment on above:Performed By: #### [id number] #### [facility] [address] [place] [address] 92720EUR (Bld) [#/Vol]4.3 E12/LNormal4.3-5.9[facility] HospitalComment on above:Performed By: #### [id number] #### [facility] [address] [place] [address]UIW corrected for nucl RBC Auto (Bld) [#/Vol]6.5 E9/LNormal 4.0-11.0[facility] HospitalComment on above:Performed By: #### [id number] #### [facility] [address] [place] [address] 54[address]QQPHUUMDRVzhjfqu By: SYSTEM SYSTEM on 08-93-5619Dbxxifr [Mass/Vol]4.7 g/dLNormal3.3 - 5.0 gm/dLRemisol ChemAlbumin/Globulin [Mass ratio] 2.0 {ratio}Normal1.1 - 2.2Remisol ChemALP [Catalytic activity/Vol]78 [iU]/d Edwhpw33 - 98 Int._Unit/LRemisol ChemALT No additional P-5'-P [Catalytic activity/Vol]26 [iU]/dNormal6 - 46 Int._Unit/LRemisol ChemAnion gap [Moles/Vol]8 mmol/LNormal6 - 16 mEq/LRemisol ChemAST [Catalytic activity/Vol]17 [iU]/dNormal 5 - 43 Int._Unit/LRemisol ChemBilirubin [Mass/Vol]0.6 mg/dLNormal0.0 - 1.1 mg/dL Remisol ChemCalcium [Mass/Vol]9.7 mg/dLNormal8.9 - 11.1 mg/dLRemisol Chem Chloride [Moles/Vol]104 mmol/TWdmcih516 - 111 mmol/LRemisol ChemCholesterol [Mass/Vol]198 mg/yUBvwnnj159 - 200 mg/dLRemisol ChemCholesterol in HDL [Mass/Vol]37 mg/dLInvalid Interpretation CodeRemisol ChemComment on above:Result Comment: '>= 60 LOW RISK' '<= 40 HIGH RISK'Cholesterol in LDL [Mass/Vol]141 mg/dLHigh<=129mg/dLRemisol ChemCholesterol in VLDL [Mass/Vol]62 mg/dLHigh7 - 40 mg/dLRemisol ChemCO2 [Moles/Vol]30 mmol/XRfusbx13 - 31 mmol/LRemisol ChemCreatinine [Mass/Vol]0.6 mg/dLNormal0.5 - 1.3 mg/dLRemisol IiiesUCC801 mL/min/1.73 d3Kpzfgo >=59mL/min/1.73 w0Gnvvjrd ChemGlobulin (S) [Mass/Vol]2.4 g/dLNormal1.4 - 4.0 gm/dLRemisol ChemGlucose [Mass/Vol]102 mg/rWLrkitt52 - 199 mg/dLRemisol Chem Lipase [Catalytic activity/Vol]13 U/JAgqlcq66 - 58 unit/LRemisol ChemPotassium [Moles/Vol]4.4 mmol/LNormal3.5 - 5.3 mmol/LRemisol ChemProtein [Mass/Vol]7.1 g/dLNormal6.0 - 7.8 gm/dLRemisol ChemSodium [Moles/Vol]138 mmol/QCejnxl528 - 145 mmol/LRemisol ChemTriglyceride [Mass/Vol]309 mg/dLHigh<=149mg/dLRemisol ChemTSH Qn1.11 m[IU]/LNormal0.34 - 5.60 mcIU/mLRemisol ChemUrea nitrogen [Mass/Vol]12 mg/dLNormal5 - 21 mg/dLRemisol ChemUrea nitrogen/Creatinine [Mass ratio]20 mg/mg Hsmjft71 - 20Remisol ChemCHEMISTRYOrdered By: Angy Rdz on 35-93-1204KkQ0k (Bld) [Mass fraction]4.9 %Normal<=5.9%[facility] ChemAutoSSCMPon 46-14-4702Tugsdgo [Mass/Vol]4.7 g/dLNormal3.3-5.0[facility] HospitalComment on above: Performed By: #### [id number] #### [facility] [address] [place] [address] 575[address]Neutkut/Globulin (S) [Mass conc ratio]2.0Rwxvob3.1-2.2FFairfield Medical CenterComment on above:Performed By: #### [id number] #### [facility] [address] [place] [address] 20192DQU [Catalytic activity/Vol]78 Int._Unit/PYkrpcd56-14VnztcpOhiohealth Marion General HospitalComment on above:Performed By: #### [id number] #### [facility] [address] [place] [address] 692[address]DQF No additional P-5'-P [Catalytic activity/Vol]26 Int._Unit/L Normal6-46[facility] HospitalComment on above:Performed By: #### [id number] #### [facility] [address], [place] [address]Yxine gap [Moles/Vol]8 mmol/LNormal6-16[facility] HospitalComment on above:Performed By: #### [id number] #### [facility] [address], [place] [address]UST [Catalytic activity/Vol]17 Int._Unit/LNormal5-43[facility] HospitalComment on above:Performed By: #### [id number] #### [facility] [address], [place] [address]Sqmwegmsn [Mass/Vol]0.6 mg/dLNormal0.0-1.1FFairfield Medical CenterComment on above:Performed By: #### [id number] #### [facility] [address], [place] [address]Bcyzpom [Mass/Vol]9.7 mg/dLNormal8.9-11.1FFairfield Medical CenterComment on above:Performed By: #### [id number] #### [facility] [address], [place] [address]Maygvknw [Moles/Vol]104 mmol/QFtsmqd990-014QzhdybOhiohealth Marion General HospitalComment on above:Performed By: #### [id number] #### [facility] [address], [place] [address]IR4 [Moles/Vol]30 mmol/DAottjm65-46YcewuuOhiohealth Marion General Hospital Comment on above:Performed By: #### [id number] #### [facility] [address], [place] [address]Jcmmvdiori [Mass/Vol]0.6 mg/dLNormal0.5-1.3FFairfield Medical CenterComment on above:Performed By: #### [id number] #### [facility] [address], [place] [address]Bsnzvawj (S) [Mass/Vol]2.4 g/dLNormal1.4-4.0[facility] HospitalComment on above:Performed By: #### [id number] #### [facility] [address], [place] [address]Majpweg [Mass/Vol]102 mg/yVHckins04-617VwdjmlOhiohealth Marion General HospitalComment on above:Performed By: #### [id number] #### [facility] [address], [place] [address]Wpgwqtdeb [Moles/Vol]4.4 mmol/LNormal3.5-5.3FFairfield Medical CenterComment on above:Performed By: #### [id number] #### [facility] [address], [place] [address]Modbquh [Mass/Vol]7.1 g/dLNormal6.0-7.8[facility] HospitalComment on above:Performed By: #### [id number] #### [facility] [address], [place] [address]Chvnse [Moles/Vol]138 mmol/YDjkhvj109-062VgcqulOhiohealth Marion General HospitalComment on above:Performed By: #### [id number] #### [facility] [address], [place] [address]Xkmq nitrogen [Mass/Vol]12 mg/dLNormal5-21[facility] HospitalComment on above:Performed By: #### [id number] #### [facility] [address], [place] [address]Iskt nitrogen/Creatinine [Mass ratio]20 No KrcabDwdrgv03-00 [facility] HospitalComment on above:Performed By: #### [id number] #### [facility] [address], [place] [address]KDFIMYAZNEDcvxodw By: SYSTEM SYSTEM on 96-05-9672Wxhusfifu/100 WBC (Bld)0.5 %Normal0.0 - 2.0 %Remisol HemeBasophils/Leukocytes Auto (Bld) [Pure # fraction]0.0 E9/LNormal0.0 - 0.2 E9/LRemisol HemeEosinophils (Bld) [#/Vol]0.1 E9/LNormal0.0 - 0.5 E9/LRemisol HemeEosinophils/100 WBC (Bld)1.1 %Normal0.0 - 8.0 %Remisol HemeErythrocyte distribution width (RBC) [Ratio]13.1 %Ymcftj31.9 - 14.2 %Remisol HemeHematocrit (Bld) [Volume fraction]39.5 %Nbbqxy90.0 - 46.0 % Remisol HemeHemoglobin (Bld) [Mass/Vol]13.8 g/yZVvrtwu39.0 - 16.0 gm/dLRemisol HemeLymphocytes (Bld) [#/Vol]3.0 E9/LNormal1.0 - 4.0 E9/LRemisol Heme Lymphocytes/100 WBC (Bld)46.0 %Fmvevh49.0 - 50.0 %Remisol HemeMCH (RBC) [Entitic mass]32.4 byVsvsfh48.0 - 34.0 pgRemisol HemeMCHC (RBC) [Mass/Vol]34.8 g/dL Vcswck34.4 - 36.0 gm/dLRemisol HemeMCV (RBC) [Entitic vol]93.0 dZSlcnic01.0 - 100.0 fLRemisol HemeMonocytes (Bld) [#/Vol]0.4 E9/LNormal0.2 - 1.0 E9/LRemisol HemeMonocytes/100 WBC (Bld)6.2 %Normal4.0 - 14.0 %Remisol HemeNeutrophils (Bld) [#/Vol]3.0 E9/LNormal2.0 - 7.5 E9/LRemisol HemeNeutrophils/100 WBC (Bld)46.2 % Ovcjmf26.0 - 75.0 %Remisol HemePlatelet mean volume (Bld) [Entitic vol]8.7 fL Normal6.4 - 10.8 fLRemisol HemePlatelets (Bld) [#/Vol]254.0 E9/LNzwuyu520.0 - 500.0 E9/LRemisol HemeRBC (Bld) [#/Vol]4.3 E12/LNormal4.3 - 5.9 E12/LRemisol HemeWBC corrected for nucl RBC Auto (Bld) [#/Vol]6.5 E9/LNormal4.0 - 11.0 E9/L Remisol JzokKxfE9ghn 20-03-8496DwB6l (Bld) [Mass fraction]4.9 %Normal<=5.9[facility] HospitalComment on above:Performed By: #### [id number] #### [facility] [address] [place] [address]Rceddy Levelon 85-27-2897Nyffgk [Catalytic activity/Vol]13 U/L Qbnciz60-02RmdpwnOhiohealth Marion General HospitalComment on above:Performed By: #### [id number] #### [facility] [address] [place], [place] [address]Bgcho Panelon 49-56-0964Vscuuxayrnz [Mass/Vol]198 mg/dLNormal 120-200Ohio[facility] HospitalComment on above:Performed By: #### [id number] #### [facility] [address] [place] [address], [place] [address]Uzalqzoikyq in HDL [Mass/Vol]37 mg/dLInvalid Interpretation CodeOhiohealth Marion General HospitalComment on above:Result Comment: '>= 60 LOW RISK' '<= 40 HIGH RISK'Performed By: #### [id number] #### [facility] [address], [place] [address]Psvuyawlljj in LDL [Mass/Vol]141 mg/dLHigh<=129Ohio[facility] HospitalComment on above:Performed By: #### [id number] #### [facility] [address], [place] [address]Wsgyzfzdmxv in VLDL [Mass/Vol]62 mg/dLHigh7-40[facility] HospitalComment on above:Performed By: #### [id number] #### [facility] [address], [place] [address]Xyadooadswwd [Mass/Vol]309 mg/dLHigh<=149Ohio[facility] HospitalComment on above:Performed By: #### [id number] #### [facility] [address], [place] [address]VJMoz 83-20-2908NOF Qn1.11 m[IU]/LNormal0.34-5.60[facility] HospitalComment on above:Performed By: #### [id number] #### [facility] [address] [place] [address], [place] [address]iVVErb 97-49-7533aDLB019 mL/min/1.73 z6Vzsamr>=59[facility] General HospitalComment on above:Order Comment: Order added by Discern Expert. Performed By: #### [id number] #### [facility] [address] [place], [place] [address]BH Abdomen/Pelvis w/ Contraston [id number] Abdomen/Pelvis w/ ContrastExam Date/Time: 06/29/2023 22:13 EDT [...] Isovue 300 Contrast amount in ml's: 100NormalFisher Brandenburg CenterCT Head or Brain w/o Contraston 30-56-7695NW Head or Brain w/o ContrastExam Date/Time: 06/29/2023 [...] Pk Foley M.D. Transcribed by: KEE Technologist: [facility] HospitalDischarge Instructionson [id number] Instructions [id number] [facility] Clinical Summaryon [id number] Clinical Summary [place] [id number] ED Clinical Summary Person Information Name: SOCORRO JOSEPH Alena/[facility] Age: 22 Years : 2000 Sex: Female Language: [place] Islander PCP: Raquel Nolan MD Marital Status: Single [...] 06/30/2023 00:02:57 06/30/2023 00:02:57 06/30/2023 00:02:57 ADDRESS: [address] [place] [id number] PHYS DOC NOTES: MEDICAL INFORMATION: Prescriptions Given: New Medications [facility], [address] [place], [place] [id number], [phone] methocarbamol (Robaxin 500 mg Tab) 1 Tablets By Mouth 3 times a day for 3 Days. Refills: 0. naproxen (Naprosyn 500 mg Tab) 1 Tablets By Mouth 2 times a day as needed for pain. Refills: 0. Medications to Continue Taking That Have Changed [facility] 1985, [address] [place], [place] [id number], [phone] START: ondansetron (Zofran ODT 4 mg Tab-Dis) 1 Tablets By Mouth every 8 hours. Refills: 0. Other Medications START: ondansetron (Zofran ODT 4 mg Tab-Dis) 1 Tablets By Mouth every 8 hours as needed Nausea/Vomiting. Refills: 0. PATIENT EDUCATION INFORMATION: Instructions: Nausea and Vomiting, Adult, Ybxr-ai-Bqco; General Headache Without Cause, Wbvi-cv-Menv; Abdominal Pain, Adult, Dqie-cp-Bhim Follow up: With: Address: When: Raquel [address] [place] [address] Business (1) In 3 days 07/02/2023 Comments: You can take the medications as prescribed as needed for pain. Please follow-up with your primary care doctor in the next 2 to 3 days for further evaluation management. Please return to the ED for any new or worsening symptoms. DIAGNOSIS: Abdominal pain, acute; Headache; N&V (nausea and vomiting)[facility] Medical CenterED Patient Education Noteon 57-91-0698EP Patient Education Note Gastroenterology Nausea and Vomiting, [...] ? Low-calorie sports drinks. ? Eat bland, otlx-xk-cemrcm foods in small amounts as you are able, such as: ? Bananas. ? Applesauce. ? Rice. ? Low-fat (lean) meats. ? Cleone. ? Crackers. ? Avoid drinking fluids that have a lot of sugar or caffeine in them. This includes energy drinks, sports drinks, and soda. ? Avoid alcohol. ? Avoid spicy or fatty foods. General instructions ? Take oisq-fxf-gjauyau and prescription medicines only as told by your doctor. ? Drink enough fluid to keep your pee (urine) pale yellow. ? Wash your hands often with soap and water for at least 20 seconds. If you cannot use soap and water, use hand caser in. ? Make sure that everyone in your [...] doctor about eating and drinking. ? Take loht-gbz-rrgqqtk and prescription medicines only as told by your doctor. ? Contact your doctor if your symptoms get worse or you have new symptoms. ? Keep all follow-up visits. This information is not intended to replace advice given to you by your health care provider. Make sure you discuss any questions you have with your health care provider. Document Revised: 09/26/2021 Document Reviewed: 09/26/2021 ElseHi[employer]Dis([employer]) Patient Education ? 2022 [employer] Abdominal Pain, Adult Many things can cause belly (abdominal) pain. Most times, belly pain is not dangerous. Many cases of belly pain can be watched and treated at home. Sometimes, though, belly pain is serious. Your doctor will try to find the cause of your belly pain. Follow these instructions at home: Medicines ? Take bwyu-osc-tvfduya and prescription medicines only as told by [...] not hungry, or y (more content not included)...[facility] Patient Summaryon [id number] Patient Summary [address] [address] Patient Discharge Instructions Person Information Name: SOCORRO JOSEPH Age: 22 Years Arrival Date: 06/29/2023 19:10:29 Discharge Diagnosis: Abdominal pain, acute; Headache; N&V (nausea and vomiting) Primary Care Physician: Raquel Nolan MD Provider Information Primary Provider: Amberly Whitehead DO Advanced Ecommerce Project Manager:None The exam and treatment you received in the Emergency Department were for an urgent problem and are not intended as complete care. It is important that you follow up with a doctor, nurse practitioner,or physician?s assistant case manager for ongoing care. If your symptoms become [...] With: Address: When: Raquel Nolan [place] [place] [address] Business (1) In 3 days [...] Patient Education Materials: Nausea and Vomiting, Adult, Dscc-gx-Oytv; General Headache Without Cause, Xjtp-hv-Ukub; Abdominal Pain, Adult, Davf-co-Lczu A MESSAGE TO ALL PATIENTS REGARDING OPIOIDS PRESCRIPTION OPIOIDS: WHAT YOU NEED TO KNOW Prescription opioids can be used to help relieve ebtixdsb-bu-uvpcxv pain and are often prescribed following a [...] your community drug take- back program or yourSilk mail-back program, or flush them down the toilet, follow (more content not included)...[facility] Prescriptions/Work Noteson 81-88-3405Tnnqpmzoebakn/Work Notes [id number]#1.00TIFGrand Lake Joint Township District Memorial HospitalRAD - Preliminary Cat Scan Reporton [id number] - Preliminary Cat Scan [id number]#1.00TIFGrand Lake Joint Township District Memorial HospitalB hCG Qualon 22-31-9150Iqnf HCG ( test) QlNegativeNormal [facility] HospitalComment on above:Performed By: #### 8590331, 80172902, 1529273, 2531135, 14409912, 4871830 ####[facility] [address] [place], [place] [address]BOLke 37-78-8421Qdxmr gap [Moles/Vol] 9 mmol/LNormal6-16[facility] HospitalComment on above:Performed By: #### 7762918, 97495696, 1412340, 2226569, 64004434, 7106218 ####[facility] [address] [place], [place] [address]Rioyzyr [Mass/Vol]9.0 mg/dL Normal8.9-11.1FFairfield Medical CenterComment on above:Performed By: #### 7870212, 28415195, 8625929, 5336384, 44532804, 2460662 ####[facility] [address] [place], [place] [address]Mpslbmsg [Moles/Vol]104 mmol/L Ppewca246-278RsdevsOhiohealth Marion General HospitalComment on above:Performed By: #### 1045487, 97297289, 7089041, 0868332, 94109847, 4946426 ####[address] [address]KB[address] [Moles/Vol]27 mmol/LNormal 21-31[facility] HospitalComment on above:Performed By: #### 5833043, 55746678, 0857159, 6186520, 79273771, 0311400 ####[address] [address]Jppovlgtzi [Mass/Vol]0.7 mg/dLNormal 0.5-1.3FFairfield Medical CenterComment on above:Performed By: #### 6007147, 20535271, 5011066, 8348159, 74914351, 1605733 ####[address] [address]Mnoyukd [Mass/Vol]93 mg/dLNormal 55-199[facility] HospitalComment on above:Performed By: #### 6082064, 67895351, 2819596, 3459272, 29544721, 8406221 ####[address] [address]Prmorrdow [Moles/Vol]3.7 mmol/LNormal 3.5-5.3FFairfield Medical CenterComment on above:Performed By: #### 0890060, 73106217, 8671442, 9976817, 74372755, 0370326 ####[place] [address] [place], [place] [address]Kkqtyg [Moles/Vol]136 mmol/LNormal 135-145[facility] HospitalComment on above:Performed By: #### 2158924, 00491622, 7263140, 1868204, 17081241, 6906357 ####[facility] [address] [place], [place] [address]Nugz nitrogen [Mass/Vol]13 mg/dL Normal5-21[facility] HospitalComment on above:Performed By: #### 4432358, 05627452, 4007451, 1260967, 31644620, 8420420 ####[facility] [address] [place], [place] [address]Xgzf nitrogen/Creatinine [Mass ratio]19 No GdgryYikslu62-40MajkwdOhiohealth Marion General HospitalComment on above: Performed By: #### 1054000, 54880384, 4470791, 0135759, 17078583, 9681308 ####[facility] [address] [place], [place] [address]PLR w/ Auto Diffon 01-31-4396Oisxbipid/100 WBC (Bld)0.3 %Normal0.0-2.0[facility] HospitalComment on above:Order Comment: Per fidel Salter, wait to poke until they try for an IV. nwf595 06/29/2023 21:16:35 EDTPerformed By: #### 0745173, 72895326, 2671573, 8863325, 70458907, 2025613 ####[facility] [address] [place] [address]Yxzpxfehq/Leukocytes Auto (Bld) [Pure # fraction]0.0 E9/LNormal0.0-0.2FFairfield Medical CenterComment on above: Order Comment: Per fidel Salter, wait to poke until they try for an IV. onp616 06/29/2023 21:16:35 EDTPerformed By: #### 7038347, 25640839, 0039090, 2100019, 19923096, 0816330 ####[facility] [address] [place], [place] [address]Jnbxsmaxvxt (Bld) [#/Vol]0.1 E9/LNormal0.0-0.5FFairfield Medical CenterComment on above:Order Comment: Per fidel Salter, wait to poke until they try for an IV. rar059 06/29/2023 21:16:35 EDTPerformed By: #### 0727178, 19390334, 4210086, 9636681, 14790679, 7916398 ####[facility] [address] [place], [place] [address]Sakinaxfetn/100 WBC (Bld)1.2 %Normal 0.0-8.0[facility] HospitalComment on above:Order Comment: Per fidel Salter, wait to poke until they try for an IV. yqu331 06/29/2023 21:16:35 EDT Performed By: #### 1722548, 53144606, 8572675, 6738789, 49316729, 6950931 ####[facility] [address] [place] [address] Erythrocyte distribution width (RBC) [Ratio]13.1 %Mehtmb77.9-14.2FFairfield Medical CenterComment on above:Order Comment: Per fidel Salter, wait to poke until they try for an IV. vtt604 06/29/2023 21:16:35 EDTPerformed By: #### 6968842, 36823520, 7057265, 2505363, 57049864, 9486898 ####[address] [place] [address] [place], [place] [address]Cjmacgbpua (Bld) [Volume fraction] 39.6 %Dsgcql75.0-46.0[facility] HospitalComment on above:Order Comment: Per fidel Salter, wait to poke until they try for an IV. hmd879 06/29/2023 21:16:35 EDTPerformed By: #### 6599629, 54651215, 6945789, 4089260, 78060700, 8768098 ####[facility] [address] [place] [address] Hemoglobin (Bld) [Mass/Vol]13.2 g/bSArimjx67.0-16.0[facility] Comment on above:Order Comment: Per fidel Salter, wait to poke until they try for an IV. doz116 06/29/2023 21:16:35 EDTPerformed By: #### 5200437, 11520552, 4494494, 2564746, 15941730, 2810578 ####[facility] [address] [place], [place] [address]Ornjuapcdqn (Bld) [#/Vol]2.0 E9/L Normal1.0-4.0[facility] HospitalComment on above:Order Comment: Per fidel Salter, wait to poke until they try for an IV. myo121 06/29/2023 21:16:35 EDT Performed By: #### 9647892, 12739386, 6782734, 8658622, 45912179, 3350155 ####[facility] [address] [place] [address] Lymphocytes/100 WBC (Bld)22.0 %Mkswxs29.0-50.0[facility] HospitalComment on above:Order Comment: Per fidel Salter, wait to poke until they try for an IV. ypt115 06/29/2023 21:16:35 EDTPerformed By: #### 5761703, 26666007, 3495775, 1735885, 20532665, 1829938 ####[facility] [address] [place], [place] [address]TOX (RBC) [Entitic mass]30.7 ttIftzyu98.0-34.0 [facility] HospitalComment on above:Order Comment: Per fidel Salter, wait to poke until they try for an IV. vse360 06/29/2023 21:16:35 EDTPerformed By: #### 8110098, 12825422, 2931422, 3624114, 53913399, 2881757 ####[place] [address] [place], [place] [address]YAEG (RBC) [Mass/Vol] 33.3 g/cMQbbqnn35.4-36.0[facility] HospitalComment on above:Order Comment: Per fidel Salter, wait to poke until they try for an IV. jpg780 06/29/2023 21:16:35 EDTPerformed By: #### 4225911, 62497186, 0139227, 2639419, 08039935, 9450945 ####[facility] [address] [place], [place] [address]RCB (RBC) [Entitic vol]91.9 bZMjvgrl01.0-100.0[facility] Comment on above:Order Comment: Per fidel Salter, wait to poke until they try for an IV. uih587 06/29/2023 21:16:35 EDTPerformed By: #### 0868656, 03652381, 0715838, 6791408, 60144177, 7226809 ####[facility] [address] [place], [place] [address]Iugfifotx (Bld) [#/Vol]0.4 E9/LNormal 0.2-1.0[facility] HospitalComment on above:Order Comment: Per fidel Salter, wait to poke until they try for an IV. xno227 06/29/2023 21:16:35 EDT Performed By: #### 6563827, 47881524, 2596213, 7936120, 95460369, 7731517 ####[facility] [address] [place] [address] Neutrophils (Bld) [#/Vol]6.5 E9/LNormal2.0-7.5FFairfield Medical CenterComment on above:Order Comment: Per fidel Salter wait to poke until they try for an IV. fqq543 06/29/2023 21:16:35 EDTPerformed By: #### 5696712, 39385434, 1943674, 5622860, 63552958, 6997121 ####[facility] [address] [place], [place] [address]Tuxvelwmful/100 WBC (Bld)71.9 %Porwml24.0-75.0 [facility] HospitalComment on above:Order Comment: Per fidel Salter, wait to poke until they try for an IV. sck302 06/29/2023 21:16:35 EDTPerformed By: #### 3729812, 94128814, 7868532, 2475996, 22489391, 3145665 ####[facility] [address] [place], [place] [address]Iuxhnnte433.0 E9/L Vvodul725.0-500.0[facility] HospitalComment on above:Order Comment: Per fidel Salter, wait to poke until they try for an IV. isr355 06/29/2023 21:16:35 EDT Performed By: #### 3094368, 16713567, 0222698, 5210930, 85298698, 7566842 ####[facility] [address] [place] [address] Platelet mean volume (Bld) [Entitic vol]8.2 fLNormal6.4-10.8[facility] HospitalComment on above:Order Comment: Per fidel Salter wait to poke until they try for an IV. gqw896 06/29/2023 21:16:35 EDTPerformed By: #### 2084351, 14901095, 2513200, 5319834, 94312612, 6808876 ####[facility] [address] [place], [place] [address]ODT (Bld) [#/Vol]4.3 E12/LNormal 4.3-5.9[facility] HospitalComment on above:Order Comment: Per fidel Salter wait to poke until they try for an IV. sgb211 06/29/2023 21:16:35 EDT Performed By: #### 4575690, 35251124, 9500953, 0339525, 59131023, 8500093 ####[facility] [address] [place], [place] [address]UZR corrected for nucl RBC Auto (Bld) [#/Vol]9.0 E9/LNormal4.0-11.0[facility] HospitalComment on above:Order Comment: Per fidel Salter wait to poke until they try for an IV. yzm067 06/29/2023 21:16:35 EDTPerformed By: #### 7316194, 01995859, 7129247, 9966210, 99973585, 9576896 ####[facility] [address] [place], [place] [address]IWLLXUZSWUigqtgg By: SYSTEM SYSTEM on 76-13-6234Kypugpj [Mass/Vol]4.3 g/dLNormal3.3 - 5.0 gm/dLRemisol Chem Albumin/Globulin [Mass ratio]2.0 {ratio}Normal1.1 - 2.2Remisol ChemALP [Catalytic activity/Vol]70 [iU]/zJvoykk18 - 98 Int._Unit/LRemisol ChemALT No additional P-5'-P [Catalytic activity/Vol]29 [iU]/dNormal6 - 46 Int._Unit/L Remisol ChemAnion gap [Moles/Vol]9 mmol/LNormal6 - 16 mEq/LRemisol ChemAST [Catalytic activity/Vol]17 [iU]/dNormal5 - 43 Int._Unit/LRemisol ChemBilirubin [Mass/Vol]0.9 mg/dLNormal0.0 - 1.1 mg/dLRemisol ChemBilirubin.direct [Mass/Vol] 0.1 mg/dLNormal0.0 - 0.4 mg/dLRemisol ChemBilirubin.indirect [Mass or moles/Vol] 0.8 mg/dLNormal0.1 - 0.9 mg/dLRemisol ChemCalcium [Mass/Vol]9.0 mg/dLNormal8.9 - 11.1 mg/dLRemisol ChemChloride [Moles/Vol]104 mmol/SMzopfy039 - 111 mmol/L Remisol ChemCO2 [Moles/Vol]27 mmol/DGncqjb10 - 31 mmol/LRemisol ChemCreatinine [Mass/Vol]0.7 mg/dLNormal0.5 - 1.3 mg/dLRemisol WnvjeZSE095 mL/min/1.73 x5Tkeyfl >=59mL/min/1.73 f9Uldjqxn ChemGlobulin (S) [Mass/Vol]2.1 g/dLNormal1.4 - 4.0 gm/dLRemisol ChemGlucose [Mass/Vol]93 mg/yJJrvfeg09 - 199 mg/dLRemisol Chem Lipase [Catalytic activity/Vol]unit/LLow13 - 58 unit/LRemisol ChemPotassium [Moles/Vol]3.7 mmol/LNormal3.5 - 5.3 mmol/LRemisol ChemProtein [Mass/Vol]6.4 g/dLNormal6.0 - 7.8 gm/dLRemisol ChemSodium [Moles/Vol]136 mmol/PYtssgw416 - 145 mmol/LRemisol ChemUrea nitrogen [Mass/Vol]13 mg/dLNormal5 - 21 mg/dLRemisol ChemUrea nitrogen/Creatinine [Mass ratio]19 mg/ukSqgihe63 - 20Remisol Chem Consent for Treatmenton 86-91-8971Jrlofnu for Treatment [id number]#1.00TIFFNormalFisher Tensas Medical CenterED Note-Physicianon 90-40-7896CF Note-PhysicianBasic Information Time Seen: Amberly Whitehead DO [...] and Complexity of Problems Differential Diagnosis: [] [facility] Data External documents reviewed: [] My [...] day(s), # 9 tab(s), Refills(s) 0, [facility], [facility], cm, 06/29/23 19:28:00 EDT, Height/Length Dosing, 82, kg, 06/29/23 19:28:00 EDT, Weight Dosing metoclopramide, 10 mg = 2 mL, Injection, IV Push, Once, Stop date 06/29/23 21:00:00 EDT, STAT, Start date 06/29/23 21:00:00 EDT, 06/29/23 21:00:00 EDT naproxen, 500 mg = 1 tab(s), Oral, BID, PRN for pain, # 20 tab(s), Refills(s) 0, [facility], [facility], cm, 06/29/23 19:28:00 EDT, Height/Length Dosing, 82, kg, 06/29/23 19:28:00 EDT, Weight Dosing ondansetron, 4 mg = 1 tab(s), Oral, q8hr, # 12 tab(s), Refills(s) 0, [facility], 175, cm, 06/29/23 19:28:00 EDT, [...] UA with Cult Rfl (more content not included)...[facility] Comment on above:Result Comment: Electronically Signed By: Amberly Whitehead DO\.br\Date and Time Signed: 06/29/23 23:56 EDTHEMATOLOGYOrdered By: SYSTEM SYSTEM on 14-81-7544Crxjcrclv/100 WBC (Bld)0.3 %Normal0.0 - 2.0 %Remisol Heme Basophils/Leukocytes Auto (Bld) [Pure # fraction]0.0 E9/LNormal0.0 - 0.2 E9/L Remisol HemeEosinophils (Bld) [#/Vol]0.1 E9/LNormal0.0 - 0.5 E9/LRemisol Heme Eosinophils/100 WBC (Bld)1.2 %Normal0.0 - 8.0 %Remisol HemeErythrocyte distribution width (RBC) [Ratio]13.1 %Cveorn24.9 - 14.2 %Remisol HemeHematocrit (Bld) [Volume fraction]39.6 %Qwrryq87.0 - 46.0 %Remisol HemeHemoglobin (Bld) [Mass/Vol]13.2 g/rKKawheu81.0 - 16.0 gm/dLRemisol HemeLymphocytes (Bld) [#/Vol] 2.0 E9/LNormal1.0 - 4.0 E9/LRemisol HemeLymphocytes/100 WBC (Bld)22.0 %Normal 14.0 - 50.0 %Remisol HemeMCH (RBC) [Entitic mass]30.7 faJusvlt64.0 - 34.0 pg Remisol HemeMCHC (RBC) [Mass/Vol]33.3 g/dKGbtdkr40.4 - 36.0 gm/dLRemisol HemeMCV (RBC) [Entitic vol]91.9 lFSgyfut33.0 - 100.0 fLRemisol HemeMonocytes (Bld) [#/Vol]0.4 E9/LNormal0.2 - 1.0 E9/LRemisol HemeMonocytes/100 WBC (Bld)4.6 % Normal4.0 - 14.0 %Remisol HemeNeutrophils (Bld) [#/Vol]6.5 E9/LNormal2.0 - 7.5 E9/LRemisol HemeNeutrophils/100 WBC (Bld)71.9 %Veostl00.0 - 75.0 %Remisol Heme Bqpkpxuk010.0 E9/UArhfgr335.0 - 500.0 E9/LRemisol HemePlatelet mean volume (Bld) [Entitic vol]8.2 fLNormal6.4 - 10.8 fLRemisol HemeRBC (Bld) [#/Vol]4.3 E12/L Normal4.3 - 5.9 E12/LRemisol HemeWBC corrected for nucl RBC Auto (Bld) [#/Vol] 9.0 E9/LNormal4.0 - 11.0 E9/LRemisol HemeHep Func Panelon 72-42-9754Eqigsks [Mass/Vol]4.3 g/dLNormal3.3-5.0[facility] HospitalComment on above: Performed By: #### 6893045, 79158439, 0855927, 6162491, 07186536, 3803458 ####[facility] [address] [place] [address] Albumin/Globulin (S) [Mass conc ratio]2.3Vpcjgy9.1-2.2[facility] CenterComment on above:Performed By: #### 8886934, 86372705, 3002533, 5554896, 63014532, 5912741 ####[facility] [address] [place], [place] [address]XNP [Catalytic activity/Vol]70 Int._Unit/JNolcsb80-88SykdimOhiohealth Marion General HospitalComment on above:Performed By: #### 2951250, 83124977, 6325079, 7577397, 88604182, 3940048 ####[address] [address]BSS No additional P-5'-P [Catalytic activity/Vol]29 Int._Unit/LNormal6-46[facility] HospitalComment on above:Performed By: #### 8016225, 28848546, 0197593, 2260014, 54493651, 2282482 ####[address] [address]HFQ [Catalytic activity/Vol]17 Int._Unit/LNormal5-43[facility] Comment on above:Performed By: #### 5562110, 87055920, 3027820, 3545094, 83338754, 1807700 ####[address] [address]Wnklfnanf [Mass/Vol]0.9 mg/dLNormal0.0-1.1FFairfield Medical CenterComment on above:Performed By: #### 6548262, 41550922, 2237002, 0653854, 24521263, 2974300 ####[address] [address]Uznfkczgr.direct [Mass/Vol]0.1 mg/dLNormal0.0-0.4 [facility] HospitalComment on above:Performed By: #### 0836427, 95591423, 9889725, 7899804, 46280749, 5710825 ####[address] [address]Aemdarsnl.indirect [Mass or moles/Vol]0.8 mg/dLNormal0.1-0.9[facility] HospitalComment on above: Performed By: #### 2892393, 44795237, 7806487, 1896132, 86587131, 6237606 ####[address] [address] Globulin (S) [Mass/Vol]2.1 g/dLNormal1.4-4.0[facility] HospitalComment on above:Performed By: #### 6327736, 66631633, 0000073, 6418319, 21212984, 9067073 ####[facility] [address] [place], [place] [address]Mujmcpa [Mass/Vol]6.4 g/dLNormal6.0-7.8[facility] HospitalComment on above:Performed By: #### 3961283, 77718963, 8300009, 1562660, 66920637, 0691366 ####[address] [address]Uwyzss Levelon 90-14-1411Yfsthx [Catalytic activity/Vol]U/KXye47-81HmfkjjOhiohealth Marion General HospitalComment on above:Performed By: #### 2166563, 95150727, 7928644, 0002926, 00037008, 2174018 ####[facility] [address] [place] [address]ZISJIKNMBkgljun By: Linh Wright on 15-79-8708Pvlp HCG ( test) QlNegative (06/29/23 9:29 PM)NormalCANCER TREATMENT CENTERS OF [facility] Man SeroUA with Cult Rflxon 35-71-3460Bvjey (U) Light-YellowNormalYellowOhiohealth Marion General HospitalComment on above:Result Comment: Microscopic readings are only performed on those samples that meet specific criteria set forth by [facility].Performed By: #### [id number] ####[facility] [address] [facility], [id number] (U) [Mass/Vol]NegativeNormalNegativeOhiohealth Marion General HospitalComment on above:Performed By: #### [id number] ####[facility] [address] [facility], BI[address]Saecvpz Ql (U)Negative NormalNegativeOhiohealth Marion General HospitalComment on above:Performed By: #### [id number] ####[address], [place] [address]PJ BloodNegativeNormalNegativeOhiohealth Marion General HospitalComment on above: Performed By: #### [id number] ####[address], [id number] BacteriaTraceNormalTraceOhiohealth Marion General HospitalComment on above:Performed By: #### [id number] ####[address], [id number] ClarityTurbidAbnormalClear [facility] HospitalComment on above:Performed By: #### [id number] ####[address], [id number] Leuk EstNegativeNormalNegativeOhiohealth Marion General HospitalComment on above: Performed By: #### [id number] ####[address], [id number] MucousTraceNormalNegativeOhiohealth Marion General HospitalComment on above:Performed By: #### [id number] ####[address], [id number] NitriteNegativeNormal NegativeOhiohealth Marion General HospitalComment on above:Performed By: #### [id number] ####[address], [place] [address]DP pH5.5Invalid Interpretation Code5.0-9.0[facility] Comment on above:Performed By: #### [id number] ####[address], [id number] ProteinNegativeNormalNegativeOhiohealth Marion General HospitalComment on above:Performed By: #### [id number] ####[address], [id number] RBC0-3Normal 0-3[facility] Brandenburg CenterComment on above:Performed By: #### [id number] ####[facility] [address] AveNormohansic state hospitalk, [id number] Spec Grav1.017Invalid Interpretation Code1.005-1.030[facility] Comment on above:Performed By: #### [id number] ####[facility] [facility] F[address]Nor[place], [place]JN Squam Epithelial>45Qwzwxklf4-4 [facility] HospitalComment on above:Performed By: #### [id number] ####[facility] Qjylmgldhf[address] AveNgriffin hospital, [place]TQ UrobilinogenNegativeNormalNegativeOhiohealth Marion General HospitalComment on above: Performed By: #### [id number] ####[place] [address] AveNgriffin hospital, [place]Emywlokotfwq (U) [Mass/Vol]NegativeNormalNegative [facility] HospitalComment on above:Performed By: #### [id number] ####[facility] Qhwtgllw[address] [facility], [id number] Spec DescClean CatchNormalOhiohealth Marion General HospitalComment on above:Performed By: #### [id number] ####[facility] [address] [employer] Digital Assetsgriffin hospital, [id number] By: SYSTEM SYSTEM on 55-53-9888Vktrq (U) Light-Yellow 1 (06/29/23 9:34 PM)NormalYellowCANCER [facility] UA Auto SSComment on above:Interpretive Data: Microscopic readings are only performed on those samples that meet specific criteria set forth by [facility] Laboratory.Glucose (U) [Mass/Vol]NegativeNormalNegativemg/dLFT UA Auto SSKetones Ql (U)NegativeNormal Negativemg/dLFT UA Auto SSUA BacteriaTrace graded/HPFNormalTracegraded/HPFFTMC UA Auto SSUA BloodNegativeNormalNegativemg/dLFT UA Auto SSUA ClarityTurbid *ABN* (06/29/23 9:34 PM)Invalid Interpretation CodeClearFTMC UA Auto SSUA Leuk Est NegativeNormalNegativeLeu/uLFT UA Auto SSUA MucousTrace graded/LPFNormal Negativegraded/LPFFTMC UA Auto SSUA NitriteNegativeNormalNegativemg/dLCANCER TREATMENT [facility] UA Auto SSUA pH5.5 *NA* (06/29/23 9:34 PM)Invalid Interpretation Code5.0 - 9.0[facility] UA Auto SSUA Protein NegativeNormalNegativemg/dLCANCER [facility] UA Auto SSUA RBC0-3 graded/HPFNormal 0-3graded/HPFCANCER [facility] UA Auto SSUA Spec Grav1.017 *NA* (06/29/23 9:34 PM)Invalid Interpretation Code1.005 - 1.030[facility] UA Auto SSUA Squam Epithelial>10 graded/HPFInvalid Interpretation Code0-2graded/HPFCANCER [facility] UA Auto SS UA UrobilinogenNegativeNormalNegativemg/dLCANCER [facility] UA Auto SSUrobilinogen (U) [Mass/Vol]NegativeNormalNegativemg/dLCANC[facility] UA Auto SSURINALYSISOrdered By: Amberly Whitehead on 86-51-3012BE Spec DescClean Catch (06/29/23 9:34 PM)NormalCANCER [facility] UA Auto SS eGFRon 99-56-1459fVRA393 mL/min/1.73 g5Vcvcvp>=59[facility] HospitalComment on above:Order Comment: Order added by Discern Expert.Performed By: #### 8051905, 56349829, 4634441, 3690487, 41697445, 7641624 ####[facility] [address] [place], [place] [address]Ldwi Diffon 24-68-0705Knioonpne/100 WBC (Bld)0.6 %Normal0.0-2.0[facility] HospitalComment on above:Order Comment: Order Added by Discern Expert.Performed By: #### [id number], 2725824, 2614232, 3408879, 1670277, 62747939, 5672973 ####[facility] [address] [place] [address] Basophils/Leukocytes Auto (Bld) [Pure # fraction]0.0 E9/LNormal0.0-0.2FFairfield Medical CenterComment on above:Order Comment: Order Added by Discern Expert.Performed By: #### 38173850, 6430407, 6516036, 1003733, 3592450, 15867520, 0267944 ####[address] [address]Mepiucycogw/100 WBC (Bld)0.8 %Normal0.0-8.0[facility] HospitalComment on above:Order Comment: Order Added by Discern Expert. Performed By: #### 42944873, 5603978, 4689023, 4788591, 3542412, 37496833, 8299553 ####[address] [address]Xzmvibouvwa/Leukocytes Auto (Bld) [Pure # fraction]0.1 E9/LNormal0.0-0.5 [facility] HospitalComment on above:Order Comment: Order Added by Discern Expert.Performed By: #### 42209723, 4654085, 9152405, 4788516, 5578531, 39649712, 1908581 ####[address] [address]Lgzzovrguiy/100 WBC (Bld)27.0 %Tehaib54.0-50.0[facility] HospitalComment on above:Order Comment: Order Added by Discern Expert. Performed By: #### 88956899, 9303452, 5944379, 7069962, 5443309, 68503317, 7130015 ####[address] [address]Vktvqtoqxfa/Leukocytes Auto (Bld) [Pure # fraction]1.8 E9/LNormal1.0-4.0 [facility] HospitalComment on above:Order Comment: Order Added by Discern Expert.Performed By: #### 85179479, 6546035, 1337550, 2269972, 3079404, 04125784, 1341513 ####[address] [address]Tgikxhgwt/100 WBC (Bld)7.8 %Normal4.0-14.0[facility] HospitalComment on above:Order Comment: Order Added by Discern Expert. Performed By: #### 03853593, 6395529, 8904984, 5527729, 6680516, 96789409, 1487297 ####[address] [address]Lxnrnyqxc/Leukocytes Auto (Bld) [Pure # fraction]0.5 E9/LNormal0.2-1.0 [facility] HospitalComment on above:Order Comment: Order Added by Discern Expert.Performed By: #### 47576168, 8030693, 8784158, 8660758, 9276857, 01991281, 5458195 ####[address] [address]Qtshejykozi/100 WBC (Bld)63.8 %Lavzwb45.0-75.0[facility] HospitalComment on above:Order Comment: Order Added by Discern Expert. Performed By: #### 29788929, 4279388, 9745187, 3921793, 2591371, 33869625, 2737705 ####[address] [address]Ruhegwrmlhl/Leukocytes Auto (Bld) [Pure # fraction]4.3 E9/LNormal2.0-7.5 [facility] HospitalComment on above:Order Comment: Order Added by Discern Expert.Performed By: #### 93024766, 9380199, 8086624, 3685966, 4678113, 66325764, 3499196 ####[place] [address] [place], [place] [address]EKKjw 93-61-5961Xafbsvdwkj [Mass/Vol]0.6 mg/dLNormal0.5-1.3 [facility] HospitalComment on above:Performed By: #### 64401117, 8848784, 2043241, 4619497, 5018475, 46498216, 4737723 ####[facility] [address] [place], [place] [address]Oadk nitrogen [Mass/Vol]19 mg/dLNormal5-21[facility] HospitalComment on above:Performed By: #### 69889496, 3133702, 7919858, 3299337, 9206187, 55331117, 9552573 ####[facility] [address] [place], [place] [address]Steu nitrogen/Creatinine [Mass ratio]32 No BzpyfWdjn69-35GqmiwpOhiohealth Marion General Hospital Comment on above:Performed By: #### 98387387, 6948843, 7978215, 1770991, 0910938, 93761495, 4754777 ####[address] [address]Quyjx gap [Moles/Vol]8 mmol/LNormal6-16[facility] HospitalComment on above:Performed By: #### 09469163, 9696672, 6627713, 6608342, 7270217, 06737194, 6311684 ####[place] [address] [place], [place] [address]Htxyxvd [Mass/Vol]8.5 mg/dLLow8.9-11.1Fisher Brandenburg CenterComment on above:Performed By: #### 17359025, 5674159, 6622804, 6557623, 9957827, 63117792, 9218162 ####[facility] [address]que[address] [place], [place] [address]Iqttdwhm [Moles/Vol]107 mmol/KWkfosd200-241ZouckyOhiohealth Marion General HospitalComment on above:Performed By: #### 16364748, 1494556, 0274804, 8422745, 8198511, 42323953, 4017213 ####[facility] Bk[address] [place], [place] [address]OL4 [Moles/Vol]25 mmol/VWchicu70-95MizuguOhiohealth Marion General HospitalComment on above:Performed By: #### 94557932, 3714016, 4792694, 5491924, 2535873, 90689216, 0566378 ####[facility] [address] [place], [place] [address]Xohlgqr [Mass/Vol]93 mg/qVAmrwky07-700PytxcwOhiohealth Marion General HospitalComment on above:Result Comment: If this glucose result represents a fasting glucose, interpretation should refer tothe following reference range: 55-99 mg/dLPerformed By: #### 32389554, 1548442, 8004692, 7048550, 7539732, 32482183, 5651372 ####[place] [address] [place], [place] [address]Ymtzujbih [Moles/Vol]3.4 mmol/LLow3.5-5.3FFairfield Medical CenterComment on above:Performed By: #### 55572088, 2114520, 4809554, 5570683, 1044433, 18708353, 0803833 ####[address] [address]Glmexc [Moles/Vol]137 mmol/LNormal 135-145[facility] HospitalComment on above:Performed By: #### 11976235, 6006469, 5887718, 0473216, 8045150, 82128612, 4177107 ####[address] [address]QTH w/ Auto Diffon 02-16-2023 Erythrocyte distribution width (RBC) [Ratio]13.0 %Cpoxxz88.9-14.2FFairfield Medical CenterComment on above:Performed By: #### 21249754, 8928063, 8279649, 1075125, 2797967, 26823081, 1740176 ####[address] [address]Bypfeimkir (Bld) [Volume fraction]41.4 %Normal 34.0-46.0[facility] HospitalComment on above:Performed By: #### 69442756, 0291177, 4519288, 8793964, 7066158, 95858122, 6203445 ####[address] [address]Aqusnyrowb (Bld) [Mass/Vol]13.9 g/fWJaogqg84.0-16.0[facility] HospitalComment on above: Performed By: #### 63457778, 1954803, 9922068, 0945793, 3129167, 15217276, 0934023 ####[address] [address]DKA (RBC) [Entitic mass]31.0 qcPvafwn85.0-34.0[facility] Comment on above:Performed By: #### 60548853, 4790398, 3892143, 6223164, 6625451, 20297299, 8382973 ####[address] [address]QGSH (RBC) [Mass/Vol]33.6 g/vZSiesvt82.4-36.0[facility] HospitalComment on above:Performed By: #### 98313872, 1540492, 3896416, 6487626, 5797928, 01501806, 8349074 ####[address] [address]MRK (RBC) [Entitic vol]92.3 uFVlwfmr32.0-100.0 [facility] HospitalComment on above:Performed By: #### 75388818, 1237773, 4942200, 3635687, 1687971, 17139035, 2532233 ####[address] [address]Aaeluvck mean volume (Bld) [Entitic vol]9.7 fLNormal6.4-10.8[facility] HospitalComment on above: Performed By: #### 84357597, 1094942, 6946100, 9230019, 5159724, 55659107, 0082608 ####[place] [address] [place], [place] [address]Fiszxsnwe (Bld) [#/Vol]254.0 E9/YUawmso003.0-500.0[facility] HospitalComment on above:Performed By: #### 01259705, 0757587, 8964143, 4404751, 1314648, 56440345, 4048823 ####[address] [address]CXW (Bld) [#/Vol]4.5 E12/LNormal4.3-5.9[facility] HospitalComment on above:Performed By: #### 91434861, 6547883, 1884859, 8059444, 7312185, 91705071, 5067128 ####[place] [address] [address]COO corrected for nucl RBC Auto (Bld) [#/Vol]6.7 E9/LNormal 4.0-11.0[facility] HospitalComment on above:Performed By: #### 46585456, 2611087, 5545584, 7265005, 9526959, 27582967, 9782462 ####[address] [address]RHEUFDINFSmqdbzw By: SYSTEM SYSTEM on 88-26-9005Omirsol [Mass/Vol]3.9 g/dLNormal3.3 - 5.0 gm/dLFTMC Remisol Albumin/Globulin [Mass ratio]1.4 {ratio}Normal1.1 - 2.2[facility] RemisolALP [Catalytic activity/Vol]86 [iU]/qHcqvqj67 - 98 Int._Unit/LFTMC RemisolALT No additional P-5'-P [Catalytic activity/Vol]18 [iU]/dNormal6 - 46 Int._Unit/LFTMC RemisolAnion gap [Moles/Vol]8 mmol/LNormal6 - 16 mEq/LFTMC RemisolAST [Catalytic activity/Vol]14 [iU]/dNormal5 - 43 Int._Unit/LFTMC RemisolBilirubin [Mass/Vol] 1.0 mg/dLNormal0.0 - 1.1 mg/dLFT RemisolBilirubin.direct [Mass/Vol]0.2 mg/dL Normal0.1 - 0.4 mg/dLFT RemisolBilirubin.indirect [Mass or moles/Vol]0.8 mg/dL Normal0.1 - 0.9 mg/dLFT RemisolCalcium [Mass/Vol]8.5 mg/dLLow8.9 - 11.1 mg/dL [facility] RemisolChloride [Moles/Vol]107 mmol/FYfgxzz651 - 111 mmol/LFTMC RemisolCO2 [Moles/Vol]25 mmol/ESyfmge63 - 31 mmol/LFTMC RemisolCreatinine [Mass/Vol]0.6 mg/dLNormal0.5 - 1.3 mg/dLFTMC RemisolGFR/1.73 sq M.predicted among non-blacks MDRD (S/P/Bld) [Vol rate/Area]128 mL/min/1.73 h6Lrkvyt>=59mL/min/1.73 m2[facility] Chem SComment on above:Interpretive Data: Chronic kidney disease could be indicated at eGFR's of less than 60 mL/min/1.73m2. Kidney failure is indicated at less than 15 mL/min/1.73m2.Globulin (S) [Mass/Vol]2.8 g/dLNormal1.4 - 4.0 gm/dLFT RemisolGlucose [Mass/Vol]93 mg/cBAwlpsg53 - 199 mg/dLFTMC Remisol Comment on above:Interpretive Data: If this glucose result represents a fasting glucose, interpretation should referto the following reference range: 55-99 mg/dLLipase [Catalytic activity/Vol]22 U/EQqyrgg45 - 58 unit/LFTMC Remisol Potassium [Moles/Vol]3.4 mmol/LLow3.5 - 5.3 mmol/LFTMC RemisolProtein [Mass/Vol] 6.7 g/dLNormal6.0 - 7.8 gm/dLFT RemisolSodium [Moles/Vol]137 mmol/KTdomxy574 - 145 mmol/LFTMC RemisolTroponin I.cardiac [Mass/Vol]pg/mLLow10.10 - 27.10 pg/mL FTMC RemisolComment on above:Interpretive Data: The 95% CI (Confidence Interval) PPV (Positive Predictive Value) for myocardial infarction in females is 38 pg/mL, in males 51 pg/mL. The results should be used in conjunction withclinical conditions of myocardial infarction. (Access High Sensitivity Troponin I Instructions For Use, Lianna Crofton, November 2017)Urea nitrogen [Mass/Vol]19 mg/dLNormal5 - 21 mg/dLFT RemisolUrea nitrogen/Creatinine [Mass ratio]32 mg/obUegz44 - 20FT RemisolConsent for Treatmenton 25-36-7047Lktjfcg for Treatment [id number]#1.00[facility] CenterDischarge Instructionson 81-69-4349Yrdfsuoby Instructions [id number]#1.00TIFWilson Memorial Hospital Clinical Summaryon 79-53-2381UF Clinical Summary [place] [id number] ED Clinical Summary Person Information Name: SOCORRO JOSEPH Alena/[facility] Age: 22 Years : 2000 Sex: Female Language: [place] Islander PCP: Lilliam Gonzalez MD Marital Status: Single [...] 02/16/2023 07:09:21 02/16/2023 07:09:21 02/16/2023 07:09:21 ADDRESS: [address] [place] [id number] PHYS DOC NOTES: MEDICAL INFORMATION: Prescriptions Given: New Medications [facility] 1988, [address] [place] [id number], [phone] ondansetron (Zofran ODT 4 mg Tab-Dis) 1 Tablets By Mouth every 8 hours as needed Nausea/Vomiting. Refills: 0. PATIENT EDUCATION INFORMATION: Instructions: Nausea and Vomiting, Adult Follow up: With: Address: When: Lilliam Gonzalez [address] [place] [address] Business (1) In 3 days DIAGNOSIS: Diarrhea; N&V (nausea and vomiting); SyncopeNormalFisher Tensas Medical CenterED Note-Physicianon 63-25-2424BI Note-PhysicianBasic Information Time Seen: Jacinto Mendiola DO [...] and Complexity of Problems Differential Diagnosis: [] [facility] Data External documents reviewed: N/A My [...] Information Lilliam Gonzalez In 3 days [address] [place] [address] Business (1) Additional Instructions: Patient Education Nausea [...] Substance Abuse - Isaac (more content not included)...[facility] HospitalComment on above:Result Comment: Electronically Signed By: Jacinto Mendiola DO\.br\Date and Time Signed: 02/16/23 06:54 PAULETTE Patient Education Noteon 24-84-5647PN Patient Education NoteGastroenterology Nausea and Vomiting, Adult [...] added (diluted fruit juice). ? Eat bland, rgjh-qv-pyultj foods in small amounts as you are able. These foods include bananas, applesauce, rice, lean meats, toast, and crackers. ? Avoid fluids that contain a lot of sugar or caffeine, such as energy drinks, sports drinks, and soda. ? Avoid alcohol. ? Avoid spicy or fatty foods. General instructions ? Take rktf-uid-myfmswb and prescription medicines only as told by your health care provider. ? Drink enough fluid to keep your urine pale yellow. ? Wash your hands often using soap and water for at least 20 seconds. If soap and water are not available, use hand caser in. ? Make sure that everyone in your [...] and drinking to prevent dehydration. ? Take zglc-tvg-vzntzpw and prescription medicines only as told by [...] Reviewed: 09/26/2021 Elsevier Patient Education ? 2022 [employer].[facility] ED Patient Summaryon 08-70-3642ZD Patient Summary [address] [address] Patient Discharge Instructions Person Information Name: SOCORRO JOSEPH Age: 22 Years Arrival Date: 02/16/2023 05:05:22 Discharge Diagnosis: Diarrhea; N&V (nausea and vomiting); Syncope Primary Care Physician: Lilliam Gonzalez MD Provider Information Primary Provider: Jacinto Mendiola DO Advanced Ecommerce Project Manager:None The exam and treatment you received in the Emergency Department were for an urgent problem and are not intended as complete care. It is important that you follow up with a doctor, nurse practitioner,or physician?s assistant case manager for ongoing care. If your symptoms become [...] With: Address: When: Lilliam Gonzalez [address] [place] [address] Business (1) In 3 days In the event that this physician does not participate in your insurance network, please consult with your insurance company to find a nearby participating provider. Patient Education Materials: Nausea and Vomiting, Adult A MESSAGE TO ALL PATIENTS REGARDING OPIOIDS PRESCRIPTION OPIOIDS: WHAT YOU NEED TO KNOW Prescription opioids can be used to help relieve jcfxffrp-xr-tnjbiz pain and are often prescribed following a [...] your community drug take- back program or yourTorrent LoadingSystemsrmPhysioSonics mail-back program, or flush them down the toilet, following guidance from the Food and Drug Administration (www.fda.gov/Drugs/ResourcesForYou). ? Visit www.cdc.gov/drugoverdose to learn about the risks of opioids abuse and overdose. ? If you believe you may be struggling with addiction, tell your health career development counselor and ask for guidance or call [facility]?S National Helpline at 6-659-969-SBGN. i [facility] (more content not included)...[facility] HEMATOLOGYOrdered By: SYSTEM SYSTEM on 78-79-1857Xmkyyrxeh/100 WBC (Bld)0.6 % Normal0.0 - 2.0 %[facility] HemeAutoSSBasophils/Leukocytes Auto (Bld) [Pure # fraction]0.0 E9/LNormal0.0 - 0.2 E9/LFTMC HemeAutoSSEosinophils/100 WBC (Bld)0.8 %Normal0.0 - 8.0 %FT HemeAutoSSEosinophils/Leukocytes Auto (Bld) [Pure # fraction]0.1 E9/LNormal0.0 - 0.5 E9/LFTMC HemeAutoSSLymphocytes/100 WBC (Bld) 27.0 %Zzrlti96.0 - 50.0 %FT HemeAutoSSLymphocytes/Leukocytes Auto (Bld) [Pure # fraction]1.8 E9/LNormal1.0 - 4.0 E9/LFTMC HemeAutoSSMonocytes/100 WBC (Bld)7.8 %Normal4.0 - 14.0 %FT HemeAutoSSMonocytes/Leukocytes Auto (Bld) [Pure # fraction]0.5 E9/LNormal0.2 - 1.0 E9/LFTMC HemeAutoSSNeutrophils/100 WBC (Bld) 63.8 %Dmmfzk93.0 - 75.0 %[facility] HemeAutoSSNeutrophils/Leukocytes Auto (Bld) [Pure # fraction]4.3 E9/LNormal2.0 - 7.5 E9/LFTMC HemeAutoSSHEMATOLOGYOrdered By: Case Aponte on 34-55-1920Kdnypvtgjso distribution width (RBC) [Ratio]13.0 % Egludm53.9 - 14.2 %[facility] HemeAutoSSHematocrit (Bld) [Volume fraction]41.4 %Normal 34.0 - 46.0 %[facility] HemeAutoSSHemoglobin (Bld) [Mass/Vol]13.9 g/vUTvydax37.0 - 16.0 gm/dLFTMC HemeAutoSSMCH (RBC) [Entitic mass]31.0 uyBkwobe54.0 - 34.0 pgFTMC HemeAutoSSMCHC (RBC) [Mass/Vol]33.6 g/hEWkfutk50.4 - 36.0 gm/dLFTMC HemeAutoSS MCV (RBC) [Entitic vol]92.3 lJHuhjao96.0 - 100.0 fLFTMC HemeAutoSSPlatelet mean volume (Bld) [Entitic vol]9.7 fLNormal6.4 - 10.8 fLFTMC HemeAutoSSPlatelets (Bld) [#/Vol]254.0 E9/PRznyhz797.0 - 500.0 E9/LFTMC HemeAutoSSRBC (Bld) [#/Vol] 4.5 E12/LNormal4.3 - 5.9 E12/LFTMC HemeAutoSSWBC corrected for nucl RBC Auto (Bld) [#/Vol]6.7 E9/LNormal4.0 - 11.0 E9/LFTMC HemeAutoSSHep Func Panelon 78-91-3264Ijhfsfj [Mass/Vol]3.9 g/dLNormal3.3-5.0[facility] Comment on above:Performed By: #### 75412505, 3664517, 5949998, 9541888, 8659245, 91677386, 7277099 ####[facility] [address] [place], [place] [address]Mmxgchf/Globulin (S) [Mass conc ratio]1.5Vphbhd6.1-2.2 [facility] HospitalComment on above:Performed By: #### 99563282, 9280004, 4285625, 5491377, 7611036, 80401465, 8859043 ####[address] [address]TGW [Catalytic activity/Vol]86 Int._Unit/MRwqybj33-67FcgbwrOhiohealth Marion General HospitalComment on above:Performed By: #### 53767674, 6348302, 9554957, 8860802, 1369264, 16824237, 5575480 ####[address] [address]JZS No additional P-5'-P [Catalytic activity/Vol]18 Int._Unit/LNormal6-46[facility] HospitalComment on above:Performed By: #### 33451314, 2853902, 5927601, 0061803, 6083933, 94718374, 8466221 ####[address] [address]UHG [Catalytic activity/Vol]14 Int._Unit/LNormal5-43[facility] HospitalComment on above:Performed By: #### 99466925, 1127316, 6594649, 2504249, 6294098, 75919661, 0540824 ####[address] [address]Mursjjzag [Mass/Vol]1.0 mg/dLNormal 0.0-1.1FFairfield Medical CenterComment on above:Performed By: #### 65089070, 1871853, 1052780, 6051395, 9842240, 99629767, 9260124 ####[address] [address]Llnxobjoo.direct [Mass/Vol]0.2 mg/dLNormal0.1-0.4FFairfield Medical CenterComment on above:Performed By: #### 90439443, 3162116, 4719659, 7203258, 6346591, 15779927, 9842122 ####[facility] [address] [place] [address] Bilirubin.indirect [Mass or moles/Vol]0.8 mg/dLNormal0.1-0.9[facility] HospitalComment on above:Performed By: #### 60699290, 8978699, 8832183, 5928624, 9529166, 30086296, 9321347 ####[address] [address]Kmchlscc (S) [Mass/Vol]2.8 g/dLNormal1.4-4.0[facility] HospitalComment on above:Performed By: #### 52833552, 9304389, 4305789, 5565397, 8371794, 43762169, 4648506 ####[address] [address]Kueqmmu [Mass/Vol]6.7 g/dLNormal6.0-7.8[facility] HospitalComment on above:Performed By: #### 05142540, 5867066, 8711427, 3406551, 8818365, 77306332, 1920849 ####[address] [address]Bnccyo Levelon 76-80-3936Tkwroa [Catalytic activity/Vol]22 U/WGldkjk22-20QdpuqsOhiohealth Marion General HospitalComment on above:Performed By: #### 26796946, 0561974, 6873759, 5620280, 7471230, 82621494, 6910273 ####[address] [address]Ghliwqrrcyfkq/Work Noteson 46-15-6333Rmyghmksnskth/Work Notes [id number]#1.00TIFFNormalOhiohealth Marion General HospitalTroponin 0 Hr.on 18-21-4424Glfqyhyf I.cardiac [Mass/Vol]ng/mLLow 10.10-27.10[facility] HospitalComment on above:Result Comment: The 95% CI (Confidence Interval) PPV (Positive Predictive Value) for myocardial infa rction in females is 38 pg/mL, in males 51 pg/mL. The results should be used in conjunction with clinical conditions of myocardial infarction. (Access High Sensitivity Troponin I Instructions For Use, Lianna Alejandra, November 2017)Performed By: #### 61885294, 1456372, 6714725, 8594598, 7478231, 88484894, 9057905 ####[facility] [address] [place], [place] [address]gDXPhq 21-20-0641JCZ/1.73 sq M.predicted among non-blacks MDRD (S/P/Bld) [Vol rate/Area]128 mL/min/1.73 k5Igmyii>=59Ohio[facility] HospitalComment on above:Order Comment: Order added by Discern Expert.Result Comment: Chronic kidney disease could be indicated at eGFR's of less than 60 mL/min/1.73m2. Kidney failure is indicated at less than 15 mL/min/1.73m2. Performed By: #### 90708543, 1056778, 5561961, 9112923, 2668718, 32596929, 9428589 ####[facility] [address] [place], [place] [address]Wapsff Medicine Office/Clinic Noteon 85-69-6145Jpvrlg Medicine Office/Clinic NoteChief Complaint EST rt foot [...] created with voice recognition software. Occasional wrong-word or?xtagh-o-jvep? substitutions may have occurred due to the inherent limitations of voice recognitionsoftware. 22 yo female presents today with cc of foot pain following injury. 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 She states it [...] An LOERA, Raquel Penny [address] [place] [address]- Additional Instructions: Patient Education Contusion, Qtod-rv-Xsfe Problem List/Past Medical History Ongoing Depression Smoker Historical Smoker Supervision of normal (more content not included)...[facility] HospitalComment on above:Result Comment: Electronically Signed By: Timothy TREVIZO, Tony Bhatia\.br\Date and Time Signed: 12/19/2315:13 EDTPatient Educationon 69-23-6212Allrnij EducationOrthopedics Contusion A contusion is a deep [...] sittingor lying down. General instructions ? Take scha-kim-idjgedg and prescription medicines only as told by [...] also called RICE. You may be given akap-qiy-ntumysm medicines for pain. ? Contact a doctor [...] Reviewed: 01/15/2022 Elsevier Patient Education ? 2022 [employer] XR Ankle 3+ Views Righton [id number] Ankle 3+ Views RightExam Date/Time: 12/18/2022 15:56 [...] Ka,r in mGy = na [facility] = [facility]+ Views Righton [id number] Foot 3+ Views RightExam Date/Time: 12/18/2022 15:56 [...] Ka,r in mGy = na DAP = [facility]CB AUTO DIFFon [id number] #0.1 103/ulNormal0.0-0.1High[facility] District HospitalComment on above:Performed By: #### CBC #### [facility] [address] [address] [address] Janett PlataBasophils/100 WBC (Bld)1.1 %Normal0.2-2.0[facility] Comment on above:Performed By: #### CBC #### [facility] [address] [place] [address] Dr. Janett Tinsley #0.1 103/ulNormal0.0-0.7The [facility] HospitalComment on above: Performed By: #### CBC #### [facility] [address] [place] [address] Dr. Janett Babcockosinophils/100 WBC (Bld)1.7 %Normal0.9-7.0[facility] Comment on above:Performed By: #### CBC #### [facility] [address] [place] [address] Dr. Janett Babcockrythrocyte distribution width (RBC) [Ratio]12.6 %Wrosuf02.0-15.0 The [facility] HospitalComment on above:Performed By: #### CBC #### [facility] [address] [place] [address] Dr. Janett PlataHematocrit (Bld) [Volume fraction]41.0 %Tdrhav05.0-48.0The [facility] HospitalComment on above:Performed By: #### CBC #### [facility] [address] [place] [address] Dr. Janett PlataHemoglobin (Bld) [Mass/Vol]13.3 g/uGBbpidp64.0-16.0The [facility] HospitalComment on above:Performed By: #### CBC #### [facility] [address] [place] [address] Dr. Janett Gonzales #0.02 10e3/ulNormal0.00-0.03The [facility] HospitalComment on above:Performed By: #### CBC #### [facility] [address] [place] [address] Dr. Janett Gonzales %0.3 %Normal0.0-0.5The [facility] HospitalComment on above: Performed By: #### CBC #### [facility] [address] [place] [address] Dr. Janett An #2.8 103/ulNormal1.2-3.8The [facility] HospitalComment on above:Performed By: #### CBC #### [facility] [address] [place] [address] Dr. Janett Aburtohocytes/100 WBC (Bld)40.6 %Rtaofj73.5-60.0The [facility] HospitalComment on above:Performed By: #### CBC #### [facility] [address] [place] [address] Dr. Janett Murdock DIFF REQNONormalThe [facility]man HospitalComment on above: Performed By: #### CBC #### [facility] [address] [place] [address] Dr. Janett Elam (RBC) [Entitic mass]30.4 xkFrllvr55.7-34.0The [facility] HospitalComment on above:Performed By: #### CBC #### [facility] [address] [place] [address] Dr. Janett Chamorro (RBC) [Mass/Vol]32.4 g/yHUeksqu05.9-35.2The [facility] HospitalComment on above:Performed By: #### CBC #### [facility] [address] [place] [address] Dr. Janett Cortez (RBC) [Entitic vol]93.8 lHIdyzno41.0-99.0The [facility] HospitalComment on above:Performed By: #### CBC #### [facility] [address] [place] [address] Dr. Janett Richard #0.4 103/ulNormal0.3-0.8The [facility] HospitalComment on above:Performed By: #### CBC #### [facility] [address] [place] [address] Dr. Yilan ChangMonocytes/100 WBC (Bld)5.4 %Normal1.7-12.0[facility] Comment on above:Performed By: #### CBC #### [facility] [address] [place] [address] Dr. Janett Garcia #3.6 103/ulNormal1.4-6.5The [facility] HospitalComment on above:Performed By: #### CBC #### [facility] [address] [place] [address] Dr. Janett Fletcherutrophils/100 WBC (Bld)50.9 %Iopiog98.0-75.0The [facility] HospitalComment on above:Performed By: #### CBC #### [facility] [address] [place] [address] Dr. Janett Gallo mean volume (Bld) [Entitic vol]10.2 fLNormal9.5-13.5The [facility] HospitalComment on above:Performed By: #### CBC #### [facility] [address] [place] [address] Dr. Janett BoyceT267 103/fwLjxyxm453-926Exv [facility] HospitalComment on above: Performed By: #### CBC #### [facility] [address] [place] [address] Dr. Janett BoseC4.37 106/ulNormal4.20-5.40The [facility] HospitalComment on above:Performed By: #### CBC #### [facility] [address] [place] [address] Dr. Janett WoodsBC7.0 103/ulNormal4.0-11.0The [facility] HospitalComment on above: Performed By: #### CBC #### [facility] [address] [place] [address] Dr. Janett Babin QUANT HCGon [id number] QUANT<1NormalThe [facility] Comment on above:Performed By: #### PREGQNT #### [facility] [address] [place] [address] Dr. Janett San RANGESEE [facility] Ahuja Medical CenterComment on above: Result Comment: 5-50 0.2-1 WEEK 50-500 1-2 WEEKS 100-5,000 2-3 WEEKS 500-10,000 3-4 WEEKS 1,000-50,000 4-5 WEEKS 10,000-100,000 5-6 WEEKS 15,000-200,000 6-8 WEEKS 10,000-100,000 2-3 MONTHSPerformed By: #### PREGQNT #### [facility] [address] [place] [address] Dr. Janett PlataXR CHEST 2 Von [id number] CHEST 2 VEXAMINATION: XR CHEST 2 V [...] Electronically authenticated by: BAO DESIR Date: 2022-06-10 10:31[facility] GeneralCNOVon [id number] Visit (CALEB) SOCORRO JOSEPH ([id number]) 2000 F Date Time Provider Department 11/06/21 1:30 PM FERNANDA SOUZA During your visit today, we recorded the following information about you: Fernanda Souza APRN.[employer] 11/06/2021 1:17 PM Signed 1. Stay hydrated [...] (more content not included)...NormalMemorial HospitalTORY PHYSICAL on [id number] PHYSICALHNO ID: [id number] Author: Fernanda Souza APRN.[employer] Service: ? Author Type: Nurse Practitioner Type: [...] erythema, induration or e (more content not included)...NormalK[facility] SERUMon 71-74-3884Sjhfwwbkymqlygzywdzwjf (DHEA)234 ng/yIGwfqih99-260Lus [facility] HospitalComment on above:Result Comment: Age 1 - 5 years 0 - 67 6 - 7 years 0 - 110 8 - 10 years 0 - 185 11 - 12 years 0 - 201 13 - 14 years 0 - 318 15 - 16 years 39 - 481 17 - 19 years 40 - 491 >19 years 31 - 701Performed By: #### DHEA. #### [facility] [address] [place] [address] Dr. Janett PlataUS PELVIS AND TRANSVAGon [id number] PELVIS AND TRANSVAG EXAMINATION: US PELVIS AND [...] Electronically authenticated by: EVELIA LLAMAS Date: 2021-10-21 08:09NoUniversity [facility]als [facility]-SULFATEon [id number]-Qnupved064.0 ug/dLNormal 110.0-431.7The [facility] HospitalComment on above:Performed By: #### DHEASUL ####[facility] [address] [address]. Janett Barone 54-36-3468DZX2.3 mIU/mLNormalHighland District HospitalComment on above:Result Comment: Adult Female: Follicular phase 3.5 - 12.5 Ovulation phase 4.7 - 21.5 Luteal phase 1.7 - 7.7 Postmenopausal 25.8 - 134.8Performed By: #### LBCFSH #### [facility] [address] [place] [address] Dr. Janett PlataLUTEINIZING HORMONE (LH)on 96-07-7034XA41.9 mIU/mLNormalHighland District HospitalComment on above:Result Comment: Adult Female: Follicular phase 2.4 - 12.6 Ovulation phase 14.0 - 95.6 Luteal phase 1.0 - 11.4 Postmenopausal 7.7 - 58.5Performed By: #### LBCLH #### [facility] [address] [place] [address] Dr. Janett Adhikari AUTO DIFFon [id number] #0.0 103/ulNormal0.0-0.1[facility] District HospitalComment on above:Performed By: #### CBC #### [facility] [address] [place] [address] Dr. Janett PlataBasophils/100 WBC (Bld)0.4 %Normal0.2-2.0[facility] Comment on above:Performed By: #### CBC #### [facility] [address] [place] [address] Dr. Janett Tinsley #0.1 103/ulNormal0.0-0.7The [facility] HospitalComment on above: Performed By: #### CBC #### [facility] [address] [place] [address] Dr. Janett Babcockosinophils/100 WBC (Bld)1.1 %Normal0.9-7.0[facility] Comment on above:Performed By: #### CBC #### [facility] [address] [place] [address] Dr. Janett Babcockrythrocyte distribution width (RBC) [Ratio]12.1 %Fxtoul63.0-15.0 The [facility] HospitalComment on above:Performed By: #### CBC #### [facility] [address] [place] [address] Dr. Janett PlataHematocrit (Bld) [Volume fraction]39.9 %Bwacpu31.0-48.0The [facility] HospitalComment on above:Performed By: #### CBC #### [facility] [address] [place] [address] Dr. Janett PlataHemoglobin (Bld) [Mass/Vol]13.0 g/zZLsqaex94.0-16.0The [facility] HospitalComment on above:Performed By: #### CBC #### [facility] [address] [place] [address] Dr. Janett Gonzales #0.02 10e3/ulNormal0.00-0.03The [facility] HospitalComment on above:Performed By: #### CBC #### [facility] [address] [place] [address] Dr. Janett Gonzales %0.2 %Normal0.0-0.5The [facility] HospitalCommunson healthcare [facility] on above: Performed By: #### CBC #### [facility] [address] [place] [address] Dr. Janett AburtoH #2.9 103/ulNormal1.2-3.8The [facility] HospitalComment on above:Performed By: #### CBC #### [facility] [address] [place] [address] Dr. Janett Hallmphocytes/100 WBC (Bld)32.0 %Nzeqsj97.5-60.0The [facility] HospitalComment on above:Performed By: #### CBC #### [facility] [address] [place] [address] Dr. Janett CruzUAL DIFF REQNONormalThe [facility] HospitalComment on above: Performed By: #### CBC #### [facility] [address] [place] [address] Dr. Janett Chamorro (RBC) [Entitic mass]31.0 apUmonvi50.7-34.0The [facility] HospitalComment on above:Performed By: #### CBC #### [facility] [address] [place] [address] Dr. Janett Chamorro (RBC) [Mass/Vol]32.6 g/uHVdcjxl49.9-35.2The [facility] HospitalComment on above:Performed By: #### CBC #### [facility] [address] [place] [address] Dr. Janett Chamorro (RBC) [Entitic vol]95.2 fKRryqmk26.0-99.0The [facility] HospitalComment on above:Performed By: #### CBC #### [facility] [address] [place] [address] Dr. Janett Richard #0.5 103/ulNormal0.3-0.8The [facility] HospitalComment on above:Performed By: #### CBC #### [facility] [address] [place] [address] Dr. Janett Morrisonocytes/100 WBC (Bld)5.3 %Normal1.7-12.0[facility] Comment on above:Performed By: #### CBC #### [facility] [address] [place] [address] Dr. Janett Garcia #5.5 103/ulNormal1.4-6.5The [facility] HospitalComment on above:Performed By: #### CBC #### [facility] [address] [place] [address] Dr. Janett Fletcherutrophils/100 WBC (Bld)61.0 %Adawli07.0-75.0The [facility] HospitalComment on above:Performed By: #### CBC #### [facility] [address] [place] [address] Dr. Janett Saleemlet mean volume (Bld) [Entitic vol]9.5 fLNormal9.5-13.5The [facility] HospitalComment on above:Performed By: #### CBC #### [facility] [address] [address] [address] Janett PlataPLT227 103/mlPvtlth487-540Tux [facility] HospitalComment on above: Performed By: #### CBC #### [facility] [address] [id number] Janett PlataRBC4.19 106/ulCritically low4.20-5.40The [facility] HospitalComment on above:Performed By: #### CBC #### [facility] [address] [address] [address] Janett PlataWBC9.1 103/ulNormal4.0-11.0The [facility] HospitalComment on above: Performed By: #### CBC #### [facility] [address] [place] [address] Dr. Janett Goodwin 51-45-9756SUX1.507 uIU/mLNormal0.358-3.740The [facility] HospitalComment on above:Performed By: #### TSH #### [facility] [address] [place] [address] Dr. Janett PlataURINALYSISOrdered By: Linh Wright on 72-72-6713Eamhhddep Ql (U)Negative (09/18/21 1:25 AM)NormalNegativeC[facility] UA Auto SSClarity (U)Clear (09/18/21 1:25 AM)NormalClearFBONE AND [facility] [place] UA Auto SSColor (U)Yellow (09/18/21 1:25 AM)NormalYellowCANC[facility] UA Auto SSEpithelial cells.squamous LM.HPF (Urine sed) [#/Area]0-2 /HPFNormal0-2/HPFMC UA Auto SSGlucose Test strip (U) [Mass/Vol]Negative (09/18/21 1:25 AM)NormalNegativeC[facility] UA Auto SSHemoglobin Ql (U)Negative (09/18/21 1:25 AM)NormalNegativeC[facility] UA Auto SSKetones (U) [Mass/Vol]Negative (09/18/21 1:25 AM)NormalNegativeC[facility] UA Auto SSLithium.plasma/Dale.RBC (Bld) [Mass ratio]0-3 /HPFNormal0-3/HPFCANCER [facility] [place] UA Auto SSNitrite Ql (U)Negative (09/18/21 1:25 AM)NormalNegativeC[facility] UA Auto SSpH (U)6.5 *NA* (09/18/21 1:25 AM)Invalid Interpretation Code5.0 - 9.0[facility] UA Auto SSProtein (U) [Mass/Vol]Negative (09/18/21 1:25 AM)NormalNegativeC[facility] UA Auto SSSpecific gravity (U) [Rel density] <=1.005 *NA* (09/18/21 1:25 AM)Invalid Interpretation Code1.005 - 1.030[facility] UA Auto SSUA Spec DescClean Catch (09/18/21 1:25 AM)NormalCANC[facility] UA Auto SSUrobilinogen Qn (U)0.2545074 {Paco'U}/dLNormal0.0 - 1.0 EU/dLCANCER [facility] UA Auto SSWBC Auto Ql (U)Negative (09/18/21 1:25 AM)NormalNegativeC[facility] UA Auto SSWBC LM.HPF (Urine sed) [#/Area]0-5 /HPFNormal0-5/HPFCANCER [facility] [place] UA Auto SSCHEMISTRYOrdered By: SYSTEM SYSTEM on 74-85-6173Kxvfyxl [Mass/Vol]4.5 g/dLNormal3.3 - 5.0 gm/dLCANCER [facility] Remisol Albumin/Globulin [Mass ratio]1.6 {ratio}Normal1.1 - 2.2[facility] RemisolALP [Catalytic activity/Vol]71 [iU]/hJuvcae14 - 98 Int._Unit/LFTMC RemisolALT No additional P-5'-P [Catalytic activity/Vol]27 [iU]/dNormal6 - 46 Int._Unit/LFTMC RemisolAnion gap [Moles/Vol]14 mmol/LNormal6 - 16 mEq/LFTMC RemisolAST [Catalytic activity/Vol]32 [iU]/dNormal5 - 43 Int._Unit/LFTMC RemisolBilirubin [Mass/Vol]0.6 mg/dLNormal0.0 - 1.1 mg/dLFTMC RemisolBilirubin.direct [Mass/Vol] mg/dLNormal0.1 - 0.4 mg/dLFTMC RemisolBilirubin.indirect [Mass or moles/Vol] Unable to Calculate mg/dLInvalid Interpretation Code0.1 - 0.9 mg/dLFTMC Remisol Calcium [Mass/Vol]9.2 mg/dLNormal8.9 - 11.1 mg/dLFTMC RemisolChloride [Moles/Vol]105 mmol/HUkshvt962 - 111 mmol/LFTMC RemisolCO2 [Moles/Vol]23 mmol/L Gpgcfe93 - 31 mmol/LFTMC RemisolCreatinine [Mass/Vol]0.6 mg/dLNormal0.5 - 1.3 mg/dLFTMC RemisolGFR/1.73 sq M.predicted among blacks MDRD (S/P/Bld) [Vol rate/Area]mL/min/1.73 f8Kbvfni>=59mL/min/1.73 m2[facility] Chem SGFR/1.73 sq M.predicted among non-blacks MDRD (S/P/Bld) [Vol rate/Area]mL/min/1.73 n9Ufgfbs >=59mL/min/1.73 m2[facility] Chem SGlobulin (S) [Mass/Vol]2.8 g/dLNormal1.4 - 4.0 gm/dLFTMC RemisolGlucose [Mass/Vol]109 mg/oMEqvhfh98 - 199 mg/dLFTMC Remisol Lipase [Catalytic activity/Vol]23 U/GNdrzjt04 - 58 unit/LFTMC RemisolPotassium [Moles/Vol]3.5 mmol/LNormal3.5 - 5.3 mmol/LFTMC RemisolProtein [Mass/Vol]7.3 g/dLNormal6.0 - 7.8 gm/dLFTMC RemisolSodium [Moles/Vol]138 mmol/UPvtcli124 - 145 mmol/LFTMC RemisolUrea nitrogen [Mass/Vol]10 mg/dLNormal5 - 21 mg/dLFTMC RemisolUrea nitrogen/Creatinine [Mass ratio]17 mg/nrZgkzkh01 - 20[facility] Remisol HEMATOLOGYOrdered By: SYSTEM SYSTEM on 58-91-5830Plfiogfqz/100 WBC (Bld)0.4 % Normal0.0 - 2.0 %[facility] HemeAutoSSBasophils/Leukocytes Auto (Bld) [Pure # fraction]0.0 E9/LNormal0.0 - 0.2 E9/LFTMC HemeAutoSSEosinophils/100 WBC (Bld)0.7 %Normal0.0 - 8.0 %[facility] HemeAutoSSEosinophils/Leukocytes Auto (Bld) [Pure # fraction]0.1 E9/LNormal0.0 - 0.5 E9/LFTMC HemeAutoSSLymphocytes/100 WBC (Bld) 33.7 %Qtuknt91.0 - 50.0 %[facility] HemeAutoSSLymphocytes/Leukocytes Auto (Bld) [Pure # fraction]3.6 E9/LNormal1.0 - 4.0 E9/LFTMC HemeAutoSSMonocytes/100 WBC (Bld)6.4 %Normal4.0 - 14.0 %[facility] HemeAutoSSMonocytes/Leukocytes Auto (Bld) [Pure # fraction]0.7 E9/LNormal0.2 - 1.0 E9/LFTMC HemeAutoSSNeutrophils/100 WBC (Bld) 58.8 %Zhbrvw80.0 - 75.0 %[facility] HemeAutoSSNeutrophils/Leukocytes Auto (Bld) [Pure # fraction]6.3 E9/LNormal2.0 - 7.5 E9/LFTMC HemeAutoSSHEMATOLOGYOrdered By: Coretta Tony on 84-27-8749Sekwyiuoamg distribution width (RBC) [Ratio]13.1 %Nvzuao95.9 - 14.2 %[facility] HemeAutoSSHematocrit (Bld) [Volume fraction]41.1 %Bbovyk94.0 - 46.0 %[facility] HemeAutoSSHemoglobin (Bld) [Mass/Vol]14.0 g/hGRxfuiy98.0 - 16.0 gm/dL [facility] HemeAutoSSMCH (RBC) [Entitic mass]31.8 ogXhmxtu54.0 - 34.0 pgFTMC HemeAutoSSMCHC (RBC) [Mass/Vol]34.1 g/aLOpqbct65.4 - 36.0 gm/dLCANCER [facility] HemeAutoSS MCV (RBC) [Entitic vol]93.2 rNEwwalz18.0 - 100.0 fLCANCER [facility]REATMENT [facility]ENTERS OF [facility] HemeAutoSSPlatelet mean volume (Bld) [Entitic vol]8.4 fLNormal6.4 - 10.8 fLCANCER TREATMENT [facility]ENT[facility] HemeAutoSSPlatelets (Bld) [#/Vol]233.0 E9/KHnplpd349.0 - 500.0 E9/LFTMC HemeAutoSSRBC (Bld) [#/Vol] 4.4 E12/LNormal4.3 - 5.9 E12/LFTMC HemeAutoSSWBC corrected for nucl RBC Auto (Bld) [#/Vol]10.7 E9/LNormal4.0 - 11.0 E9/LFTMC HemeAutoSSMICRO OTHER TESTS Ordered By: Coretta Tony on 90-54-8642Wwvqpz Bld StlNegative (09/17/21 10:40 PM)NormalNegativeCANC[facility] Man SeroSEROLOGYOrdered By: Linh Wright on 90-55-0106Tczb hCG QlNegative (09/17/21 10:42 PM)NormalCANC[facility] Man SeroBLOOD BANKOrdered By: Coretta Tony on 26-62-9139SAE/Rh InterpPositiveInvalid Interpretation CodeCANCER [facility] BB Subsection CHEMISTRYOrdered By: SYSTEM SYSTEM on 67-76-7270Bmvxw gap [Moles/Vol]12 mmol/L Normal6 - 16 mEq/LFT[facility] RemisolCalcium [Mass/Vol]9.1 mg/dLNormal8.9 - 11.1 mg/dL [facility] RemisolChloride [Moles/Vol]103 mmol/DXsiion642 - 111 mmol/LFT[facility] RemisolCO2 [Moles/Vol]24 mmol/RBbkecw59 - 31 mmol/LFT[facility] RemisolCreatinine [Mass/Vol]0.5 mg/dLNormal0.5 - 1.3 mg/dLCANCER [facility] RemisolGFR/1.73 sq M.predicted among blacks MDRD (S/P/Bld) [Vol rate/Area]mL/min/1.73 f0Xogllr>=59mL/min/1.73 m2FT Chem S GFR/1.73 sq M.predicted among non-blacks MDRD (S/P/Bld) [Vol rate/Area] mL/min/1.73 h8Aolrag>=59mL/min/1.73 m2[facility] Chem SGlucose [Mass/Vol]114 mg/dL Orfrcu96 - 199 mg/dLFTMC RemisolPotassium [Moles/Vol]3.6 mmol/LNormal3.5 - 5.3 mmol/LFTMC RemisolSodium [Moles/Vol]135 mmol/COtycml715 - 145 mmol/LFTMC Remisol Urea nitrogen [Mass/Vol]17 mg/dLNormal5 - 21 mg/dLFTMC RemisolUrea nitrogen/Creatinine [Mass ratio]34 mg/kwXkcg12 - 20[facility] RemisolCOAGULATION Ordered By: Charlotte Rosales on 52-86-0083lQNT Coag (PPP) [Time]36.1 sNormal 25.1 - 36.5 second(s)[facility] Auto CoagINR Coag (PPP) [Relative time]1.0 {INR} Invalid Interpretation CodeFTMC Auto CoagPT Coag (PPP) [Time]12.3 cDqzwpl05.2 - 12.9 second(s)[facility] Auto CoagHEMATOLOGYOrdered By: SYSTEM SYSTEM on 07-16-2021 Basophils/100 WBC (Bld)0.4 %Normal0.0 - 2.0 %[facility] HemeAutoSSBasophils/Leukocytes Auto (Bld) [Pure # fraction]0.0 E9/LNormal0.0 - 0.2 E9/LFTMC HemeAutoSS Eosinophils/100 WBC (Bld)0.8 %Normal0.0 - 8.0 %[facility] HemeAutoSS Eosinophils/Leukocytes Auto (Bld) [Pure # fraction]0.1 E9/LNormal0.0 - 0.5 E9/L [facility] HemeAutoSSLymphocytes/100 WBC (Bld)39.8 %Ifkfmp81.0 - 50.0 %[facility] HemeAutoSS Lymphocytes/Leukocytes Auto (Bld) [Pure # fraction]2.6 E9/LNormal1.0 - 4.0 E9/L [facility] HemeAutoSSMonocytes/100 WBC (Bld)5.8 %Normal4.0 - 14.0 %[facility] HemeAutoSS Monocytes/Leukocytes Auto (Bld) [Pure # fraction]0.4 E9/LNormal0.2 - 1.0 E9/L [facility] HemeAutoSSNeutrophils/100 WBC (Bld)53.2 %Uyvqks71.0 - 75.0 %[facility] HemeAutoSS Neutrophils/Leukocytes Auto (Bld) [Pure # fraction]3.5 E9/LNormal2.0 - 7.5 E9/L [facility] HemeAutoSSHEMATOLOGYOrdered By: Coretta Tony on 80-51-3527Beywgribzoz distribution width (RBC) [Ratio]13.3 %Olgkfx41.9 - 14.2 %[facility] HemeAutoSS Hematocrit (Bld) [Volume fraction]38.5 %Sasqbj23.0 - 46.0 %[facility] HemeAutoSS Hemoglobin (Bld) [Mass/Vol]13.1 g/qMAslihf12.0 - 16.0 gm/dLFTMC HemeAutoSSMCH (RBC) [Entitic mass]31.4 etGlcyix67.0 - 34.0 pgFTMC HemeAutoSSMCHC (RBC) [Mass/Vol]34.2 g/yVRszlog64.4 - 36.0 gm/dLFTMC HemeAutoSSMCV (RBC) [Entitic vol] 92.0 oTUjjysy90.0 - 100.0 fLFTMC HemeAutoSSPlatelet mean volume (Bld) [Entitic vol]8.6 fLNormal6.4 - 10.8 fLFTMC HemeAutoSSPlatelets (Bld) [#/Vol]213.0 E9/L Zqljtx895.0 - 500.0 E9/LFTMC HemeAutoSSRBC (Bld) [#/Vol]4.2 E12/LLow4.3 - 5.9 E12/LFTMC HemeAutoSSWBC corrected for nucl RBC Auto (Bld) [#/Vol]6.6 E9/LNormal 4.0 - 11.0 E9/LFTMC HemeAutoSSSEROLOGYOrdered By: Charlotte Rosales on 03-31-7447UUS.beta subunit (U) [Moles/Vol]NegativeNormalFTMC Man SeroURINALYSIS Ordered By: Charlotte Rosales on 06-06-1017Gfqleyukf Ql (U)Negative (07/16/21 3:20 PM)NormalNegativeC[facility] UA Auto SSClarity (U)Clear (07/16/21 3:20 PM)NormalClearFBONE AND [facility] [place] U[facility] Auto SSColor (U)Yellow (07/16/21 3:20 PM)NormalYellowCANC[facility] UA Auto SSEpithelial cells.squamous LM.HPF (Urine sed) [#/Area]0-2 /HPFNormal0-2/HPFCANCER [facility]REAT[facility]ENT[facility] [place] UA Auto SSGlucose Test strip (U) [Mass/Vol]Negative (07/16/21 3:20 PM)NormalNegativeC[facility] UA Auto SSHemoglobin Ql (U)1+ *ABN* (07/16/21 3:20 PM)Invalid Interpretation CodeNegativeC[facility] UA Auto SSKetones (U) [Mass/Vol]Negative (07/16/21 3:20 PM)NormalNegativeC[facility] UA Auto SSLithium.plasma/Dale.RBC (Bld) [Mass ratio]4-20 /HPFNormal0-3/HPFCANCER [facility] [place] UA Auto SSNitrite Ql (U)Negative (07/16/21 3:20 PM)NormalNegativeC[facility]A Auto SSpH (U)7.0 *NA* (07/16/21 3:20 PM)Invalid Interpretation Code5.0 - 9.0[facility] Auto SSProtein (U) [Mass/Vol]Negative (07/16/21 3:20 PM)NormalNegativeCANC[facility] [place] [facility] Auto SSSpecific gravity (U) [Rel density] 1.010 *NA* (07/16/21 3:20 PM)Invalid Interpretation Code1.005 - 1.030[facility]A Auto SSUA Spec DescClean Catch (07/16/21 3:20 PM)NormalCANCER [facility] [place] UA Auto SSUrobilinogen Qn (U)0.7221612 {[place]aco'U}/dLNormal0.0 - 1.0 EU/dLCANCER [facility]REATMENT [facility] [place] [facility] Auto SSWBC Auto Ql (U)Negative (07/16/21 3:20 PM)NormalNegativeCANCER [facility] [place] [facility] Auto SSWBC LM.HPF (Urine sed) [#/Area]0-5 /HPFNormal0-5/HPFCANCER [facility] [place] UA Auto SSProgress Noteon [id number] Authentication Interface Message ElainaMichaelle for ReferralSocorro, her partner Uli, her mother and sister were seen on 07/05/2017 at [facility] by myself and SCOT [...] Ultrasound Amniocentesis Maternal serum cell-free DNA screening [place] carrier screeningFollowing our discussion Socorro elected to [...] indicated. Mitch Phillips MD and Alix Hendricks [facility] Vital Signs Date TimeVital SignValuePerforming [id number] 10:48-0400Body mass index (BMI) [Ratio]28.4 kg/s7Ffvmo Miryam DO Work Phone: [facility] [id number] 10:48-0400Body uprqyf44.73 kgCorey Miryam DO Work Phone: [facility] [id number] 10:48-0400Diastolic blood gguykylw06 mm[Hg]Shaan Miryam DO Work Phone: [facility] [id number] 10:48-0400Systolic blood bykdhsda801 mm[Hg]Shaan Miryam DO Work Phone: [phone] [place], [place] [address]Lpxcgrfoxm34-78-8111 15:27-0400Body mass index (BMI) [Ratio]27.64 kg/m2Amy Filemon PA Work Phone: [phone] [place], [place] [address]Dobmfqetxd95-06-3645 15:27-0400Body vudzvs65.46 kgAmy Filemon PA Work Phone: [phone] [place], [place] [address]Yccdqpkjqu23-37-6360 15:27-0400Diastolic blood byeyrfva18 mm[Hg]Nia Filemon PA Work Phone: [phone] [place], [place] [address]Pbnxdewrvq24-51-3698 15:27-0400Systolic blood nblbkods843 mm[Hg]Nia Colbert PA Work Phone: [facility] [facility] HospitalDwgsctaxko57-69-0304 12:38-0400Body imofqz753.7 cmRaquel Nolan MD Work Phone: [facility] HospitalKkrgewrtgl69-58-4733 12:38-0400Body mass index (BMI) [Ratio]27.25 kg/f8UwlgwRaquel Nolan MD Work Phone: [facility] HospitalZeotjekfib58-94-1856 12:38-0400Body temperature 98.2 [degF]Raquel Nolan MD Work Phone: [facility] HospitalByykbsgneg60-79-2810 12:38-0400Body rfenun47.28 kgRaquel Nolan MD Work Phone: [facility] HospitalXboeodbwsr26-59-4558 12:38-0400Diastolic blood mm[Hg]Raquel Nolan MD Work Phone: [facility] HospitalMikabdscxl73-21-9763 12:38-0400Heart rate71 /min Raquel Nolan MD Work Phone: [facility] HospitalKenqmhfipt49-80-0526 12:38-1588JaE0% (BldA) [Mass fraction]98 %Raquel Nolan MD Work Phone: [facility] HospitalEyehckvege20-50-2898 12:38-0400Systolic blood ijpfxrpa243 mm[Hg]Raquel Nolan MD Work Phone: [phone] HospitalForhqstvhg31-47-2266 10:46-0400Body ynussr133.7 cmRaquel Nolan MD Work Phone: [facility] HospitalGwxgpqiyxj76-57-0736 10:46-0400Body mass index (BMI) [Ratio]26.94 kg/j8AlyprRaquel Nolan MD Work Phone: 1(640)[phone] [place], [place] [address]Uimhfwcdko02-99-8458 10:46-0400Body temperature 98.2 [degF]Raquel Nolan MD Work Phone: 1(646)269-[address] [place], [place] [address]Jynonkrivk16-41-3257 10:46-0400Body .38 kgRaquel Nolan MD Work Phone: [facility] HospitalDnqncwtwfl31-78-4227 10:46-0400Diastolic blood iqpdvlof34 mm[Hg]Raquel Nolan MD Work Phone: [facility] HospitalUjsjruepcv02-92-2758 10:46-0400Heart rate66 /min Raquel Nolan MD Work Phone: [facility] HospitalFjacvoexoy32-01-8393 10:46-6105XuF3% (BldA) [Mass fraction]99 %Raquel Nolan MD Work Phone: [facility] HospitalNtmnrqhfqb00-28-3312 10:46-0400Systolic blood iyqyxpfw047 mm[Hg]Raquel Nolan MD Work Phone: [place] [address]Hackkboqfd94-27-8889 14:00-0500Diastolic blood ilbiybmv76 mm[Hg]Narinder Kumar [address] [place], [place] 2586401-12-2025 14:00-0500Heart rate61 /minNarinder Kumar [address] [place], [place] 2586401-12-2025 14:00-0500Mean blood qffzydfr12 mm[Hg]Narinder Kumar [address] [place], [place] 2586401-12-2025 14:00-0500 Respiratory rate16 /minNarinder Kumar [address] [place], [place] 2586401-12-2025 14:00-1304KcC4% (BldA) [Mass fraction]97 %Narinder Kumar [address] [place], [place] 2586401-12-2025 14:00-0500 Systolic blood nslvwytj348 mm[Hg]Narinder Kumar [address] [place], [place] 2586401-12-2025 01:00-0500 Diastolic blood bytncevy51 mm[Hg]Narinder Kumar [address] [place], [place] 2586401-12-2025 01:00-0500Heart rate60 /Ifeoma Kumar [address] [place], [place] 2586401-12-2025 01:00-0500Mean blood hyczqpoo85 mm[Hg]Narinder Kumar [address] [place], [place] 3772301-12-2025 01:00-2047LeJ5% (BldA) [Mass fraction]97 %Narinder Kumar [address] [place], [place] 2586401-12-2025 01:00-0500 Systolic blood gzkjeytj22 mm[Hg]Narinder Kumar [address] [place], [place] 2586401-12-2025 00:00-0500 Diastolic blood vnemwetf21 mm[Hg]Narinder Kumar [address] [place], [place] 2586401-12-2025 00:00-0500Heart rate63 /Ifeoma Kumar [address] [place], [place] 3772301-12-2025 00:00-0500Mean blood uhafebyi03 mm[Hg]Narinder Kumar [address] [place], [place] 3772301-12-2025 00:00-0500 Respiratory rate16 /Ifeoma Kumar [address] [place], [place] 3772301-12-2025 00:00-7597CcU5% (BldA) [Mass fraction]99 %Narinder Kumar [address] [place], [place] 3772301-12-2025 00:00-0500 Systolic blood yaurkbbd836 mm[Hg]Narinder Kumar [address] [place], [place] 3772301-11-2025 21:11-0500Body ckhuhwjuyyd71.52 [degF]Narinder José [address] [place], [place] 3772301-11-2025 21:11-0500Heart rate68 /Ifeoma Kumar [address] [place], [place] 3772301-11-2025 21:11-0500 Respiratory rate18 /Ifeoma Kumar [address] [place], [place] 3772301-08-2025 13:46-0500Blood Pressure LocationPamaría elena Warner [phone]-GwzqhC[facility] Xlme05-63-6177 13:46-0500Body gummijtamea99.24 [degF]Ann Warner 321-1791Wztrwn-RmyraCrystal [facility] Hplv32-79-3906 13:46-0500Diastolic blood mm[Hg]Ann Warner 347-3429Fckkie-SqkupCrystal [facility] Oudi39-27-5511 13:46-0500Heart rate79 /minAnn Warner 377-2293Erbjlq-FxmguCrystal [facility] Hqnx10-28-2351 13:46-0500Respiratory rate18 /minPatrichenrietta Hernandezhcasecata [phone]-NodkuCrystal Clinic [facility] Lxwt27-50-6331 13:46-5493AfZ6% (BldA) [Mass fraction]99 %Ann Warner 577-2740Hbgtnc-OjcorCrystal Clinic [facility] Mxki26-85-1751 13:46-0500Systolic blood mm[Hg]Ann Warner [phone]-UlyxnCrystal [facility] Gzrh65-51-4232 12:38-0500Body igsrkn754.7 cmRaquel Nolan MD Work Phone: [facility] HospitalKrsgljrkaw40-60-9229 12:38-0500Body mass index (BMI) [Ratio]27.31 kg/q8BrefoRaquel Nolan MD Work Phone: [facility] HospitalZzpxycsryy89-79-9217 12:38-0500Body temperature 98.01 [degF]Raquel Nolan MD Work Phone: [facility] HospitalWbynnqaroo33-08-7898 12:38-0500Body iczhvg20.47 kgRaquel Nolan MD Work Phone: [facility] HospitalRkxzpazabq95-20-0151 12:38-0500Diastolic blood nscwmsel47 mm[Hg]Raquel Nolan MD Work Phone: [facility] HospitalPblcvxfpjn41-51-9338 12:38-0500Heart rate69 /min Raquel Nolan MD Work Phone: [facility] HospitalZjmcefeqak42-43-2526 12:38-7392OkN8% (BldA) [Mass fraction]99 %Raquel Nolan MD Work Phone: [facility] HospitalTlaujqwzwf76-33-1208 12:38-0500Systolic blood iitboqrg710 mm[Hg]Raquel Nolan MD Work Phone: [facility] HospitalBasnoievdt81-54-7175 08:55-0500Diastolic blood mm[Hg]Roque Harris [address] [place], [place] 3772312-16-2024 08:55-0500Heart rate53 /minRoque Harris [address] [place], [place] 3772312-16-2024 08:55-0500Mean blood ixvpejjt23 mm[Hg]Roque Harris [address] [place], [place] 3772312-16-2024 08:55-0500 Respiratory rate15 /minRoque Harris [address]12-16-2024 08:55-6437UkN0% (BldA) [Mass fraction]100 %Roque Harris [address]12-16-2024 08:55-0500 Systolic blood qgsgnytk624 mm[Hg]Roque Harris [address]12-16-2024 07:19-0500Body eruoepzbkoj71.24 [degF]Roque Harris [address] [place], [place] 3772312-16-2024 07:19-0500 Diastolic blood okvvdupy38 mm[Hg]Rqoue Harris [address]12-16-2024 07:19-0500Heart rate79 /Ricky Harris [address] [place], [place] 3772312-16-2024 07:19-0500 Respiratory rate16 /minRoque Harris [address] [place], [place] 3772312-16-2024 07:19-3265CqD4% (BldA) [Mass fraction]100 %Roque Harris [address] [place], [place] 3772312-16-2024 07:19-0500 Systolic blood uilxqojv577 mm[Hg]Roque Harris [address]09-09-2024 15:16-0400Body mass index (BMI) [Ratio]27.58 kg/m2Amy Filemon PA Work Phone: [facility] HospitalCpqvoootuh10-17-2831 15:16-0400Body vaaqiu03.28 kgNia Colbert PA Work Phone: [facility] HospitalNsafruysdw48-18-0970 15:16-0400Diastolic blood vqhfuxfy07 mm[Hg]Nia Colbert PA Work Phone: [facility] HospitalYbvostqmht89-01-6381 15:16-0400Systolic blood zubccacs395 mm[Hg]Nia Colbert PA Work Phone: [facility] HospitalMdlpruntut06-73-3167 23:53-0400Diastolic blood zwclagpo17 mm[Hg]Kaylinn Dokken [facility]03-26-2024 23:53-0400Heart rate65 /minKaylinn Dokken [address]03-26-2024 23:53-0400Mean blood esprdngt65 mm[Hg]Kaylinn Dokken [facility]03-26-2024 23:53-0400 Respiratory rate16 /minKaylinn Dokken [facility]03-26-2024 23:53-6138UuN9% (BldA) [Mass fraction]98 %Kaylinn Dokken [address] [place], [place] 3772303-26-2024 23:53-0400 Systolic blood uxasipct925 mm[Hg]Kaylinn Dokken [address] [place], [place] 3772303-26-2024 22:37-0400 Diastolic blood ducobvbl79 mm[Hg]Kaylinn Dokken [facility]03-26-2024 22:37-0400Heart rate62 /minKaylinn Dokken [address] [place], [place] 2586403-26-2024 22:37-0400Mean blood ogrwqfyf82 mm[Hg]Kaylinn Dokken [address] [place], [place] 2586403-26-2024 22:37-0400 Respiratory rate16 /minKaylinn Dokken [address] [place], [place] 2586403-26-2024 22:37-0382KmX9% (BldA) [Mass fraction]98 %Kaylinn Dokken [address] [place], [place] 2586403-26-2024 22:37-0400 Systolic blood msiyycgm030 mm[Hg]Kaylinn Dokken [address] [place], [place] 2586403-26-2024 21:29-0400 Diastolic blood hxosnteq09 mm[Hg]Kaylinn Dokken [address] [place], [place] 2586403-26-2024 21:29-0400Heart rate58 /minKaylinn Dokken [address] [place], [place] 2586403-26-2024 21:29-0400Mean blood qtdrfdmo37 mm[Hg]Kaylinn Dokken [address] [place], [place] 2586403-26-2024 21:29-0400 Respiratory rate16 /minKaylinn Dokken [address] [place], [place] 2586403-26-2024 21:29-4487FsB1% (BldA) [Mass fraction]99 %Kaylinn Dokken [address] [place], [place] 2586403-26-2024 21:29-0400 Systolic blood pymadymd218 mm[Hg]Kaylinn Dokken [address] [place], [place] 2586403-26-2024 20:10-0400Heart rate61 /minKaylinn Dokken [address] [place], [place] 2586403-26-2024 19:25-0400Body yrndafgxvni39.42 [degF]Awildainn Dokken [address] [place], [place] 2586403-26-2024 19:25-0400Heart rate62 /minKaylinn Dokken [address] [place], [place] 2586411-14-2023 07:05-0500 Diastolic blood mm[Hg]Jacinto Maury [address] [place], [place] 2586411-14-2023 07:05-0500Heart rate58 /minNoah Maury [address] [place], [place] 2586411-14-2023 07:05-0500Mean blood pkpvgxti25 mm[Hg]Jacinto Maury [address] [place], [place] 2586411-14-2023 07:05-0500 Respiratory rate18 /minNoah Maury [address] [place], [place] 2586411-14-2023 07:05-4546OzE7% (BldA) [Mass fraction]99 %Jacinto Maury [address] [place], [place] 3772311-14-2023 07:05-0500 Systolic blood xwxfmyds974 mm[Hg]Jacinto Maury [address] [place], [place] 3772311-14-2023 06:16-0500 Diastolic blood tmxnrwji97 mm[Hg]Jacinto Maury [address] [place], [place] 3772311-14-2023 06:16-0500Heart rate81 /minNoah Maury [address] [place], [place] 3772311-14-2023 06:16-0500Mean blood mm[Hg]Jacinto Maury [address] [place], [place] 2586411-14-2023 06:16-0500 Respiratory rate18 /minNoah Maury [address] [place], [place] 3772311-14-2023 06:16-9952NmR3% (BldA) [Mass fraction]99 %Jacinto Maury [address] [place], [place] 3772311-14-2023 06:16-0500 Systolic blood pnrfjlyx116 mm[Hg]Jacinto Maury [address] [place], [place] 2586411-14-2023 05:18-0500gluc 100 mg/dLNoah Maury [address] [place], [place] 2586411-14-2023 05:18-0500gluc Jacinto Maury [address] [place], [place] 2586411-14-2023 05:12-0500Body eadaawfmdgy59.7 [degF]Jacinto Maury [address] [place], [place] 2586411-14-2023 05:12-0500 Diastolic blood uoycizcn83 mm[Hg]Jacinto Maury [address] [place], [place] 2586411-14-2023 05:12-0500Heart rate73 /minNodana Maury [address] [place], [place] 2586411-14-2023 05:12-0500 Respiratory rate16 /minNodana Maury [address] [place], [place] 2586411-14-2023 05:12-1294WaH0% (BldA) [Mass fraction]98 %Jacinto Maury [address] [place], [place] 2586411-14-2023 05:12-0500 Systolic blood ukehmsyo673 mm[Hg]Jacinto Maury [address] [place], [place] 2586407-08-2022 13:50-0400Body .3 cmJavier Gutierrez MD Work Phone: [facility]07-08-2022 13:50-0400Body temperature 96.69 [degF]Javier Gutierrez MD Work Phone: [facility]07-08-2022 13:50-0400Body komyos43.52 kgJavier Gutierrez MD Work Phone: [facility]07-08-2022 13:50-0400Diastolic blood bzawylmq13 mm[Hg]Javier Gutierrez MD Work Phone: [facility]07-08-2022 13:50-0400Heart rate67 /min Javier Gutierrez MD Work Phone: [facility]07-08-2022 13:50-6782JpS3% (BldA) [Mass fraction]98 %Javier Gutierrez MD Work Phone: [facility]07-08-2022 13:50-0400Systolic blood fnznyyjr491 mm[Hg]Javier Gutierrez MD Work Phone: [facility]06-16-2022 02:53-0400Diastolic blood fteslnnf66 mm[Hg]Awildainn Dokken [address]06-16-2022 02:53-0400Heart rate58 /minKaylinn Dokken [address]06-16-2022 02:53-0400 Hourly RoundingKaylinn Dokken [address] [place], [place] 3772306-16-2022 02:53-0400 Respiratory rate16 /minKaylinn Dokken [address] [place], [place] 3772306-16-2022 02:53-0850KoQ9% (BldA) [Mass fraction]100 %Kaylinn Dokken [address] [place], [place] 3772306-16-2022 02:53-0400 Systolic blood xujdtsba006 mm[Hg]Kaylinn Dokken [address]06-16-2022 01:45-0400 Diastolic blood ywxpzalq60 mm[Hg]Kaylinn Dokken [address] [place], [place] 2586406-16-2022 01:45-0400Heart rate61 /minKaylinn Dokken [address] [place], [place] 2586406-16-2022 01:45-0400 Hourly RoundingKaylinn Dokken [address] [place], [place] 2586406-16-2022 01:45-0400 Respiratory rate18 /minKaylinn Dokken [address] [place], [place] 2586406-16-2022 01:45-3147DeR8% (BldA) [Mass fraction]98 %Kaylinn Dokken [address] [place], [place] 2586406-16-2022 01:45-0400 Systolic blood bqsmjdow78 mm[Hg]Kaylinn Dokken [address] [place], [place] 2586406-16-2022 00:15-0400 Hourly RoundingKaylinn Dokken [address] [place], [place] 2586406-15-2022 23:50-0400Body ytqkpurmxnq44.88 [degF]Kaylinn Dokken [address] [place], [place] 2586406-15-2022 23:50-0400 Diastolic blood ajanulsz57 mm[Hg]Kaylinn Dokken [address] [place], [place] 2586406-15-2022 23:50-0400Heart rate70 /minKaylinn Dokken [address] [place], [place] 2586406-15-2022 23:50-0400 Respiratory rate18 /minKaylinn Dokken [address] [place], [place] 2586406-15-2022 23:50-9290YiU8% (BldA) [Mass fraction]98 %Kaylinn Dokken [facility]06-15-2022 23:50-0400 Systolic blood vepcpbki578 mm[Hg]Amberly Whitehead [address] [place], [place] 3772306-15-2022 22:06-0400Body uiemehxmrjw01.06 [degF]Amberly Whitehead [facility]04-13-2022 16:39-0400 Diastolic blood lotfpwnl78 mm[Hg][facility] 07-16-2021 16:39-0400Heart rate64 /[facility]04-13-2022 16:39-0400Mean blood ysmxqqfk40 mm[Hg][facility]04-13-2022 16:39-0400Respiratory rate16 /[facility] 16:39-5081ZkT3% (BldA) [Mass fraction]99 %[facility]04-13-2022 16:39-0400Systolic blood ufqdyzce945 mm[Hg][facility]04-13-2022 16:00-0400Hourly [facility]ingMartins Ferry Hospital04-13-2022 16:00-0400[facility]Mart[facility]04-13-2022 14:24-0400Body ppgwujmgnce04.42 [degF][facility]04-13-2022 14:24-0400Diastolic blood rksubzon21 mm[Hg][facility]04-13-2022 14:24-0400Heart rate67 /[facility]04-13-2022 14:24-0400Respiratory rate16 /minMart[facility]04-13-2022 14:24-5060YnD9% (BldA) [Mass fraction]99 %[facility]04-13-2022 14: Systolic blood jipubqrv080 mm[Hg][facility] Encounters Encounter DateEncounter TypeCare ProviderFacilityStart: 02-02-2025 End: 68-44-9069Swxjiryzb Result EncounterCorey Miryam DO Work Phone: [facility] External Department UnsolicitedStart: 02-02-2025 End: 68-67-4659Cmvepxhkf Result EncounterCorey Miryam DO Work Phone: [facility] External Department UnsolicitedStart: 01-24-2025 End: 84-45-7934Ktejco outpatient visit 15 minutesCorey Miryam DO Work Phone: [facility] OBGYNComment on above:Pre-operative exam; Menorrhagia with irregular cycle; Pelvic pain in female; Dysmenorrhea; Dyspareunia, femaleStart: 01-24-2025 End: 09-62-4824Bnzvtdcpzopwq examination doneCorey Miryam Docracy Work Phone: [facility] Work Phone: Start: 01-24-2025 End: 67-21-0210rambsnkfvxXQRIC FAZIONot AvailableStart: 12-18-2024 End: 02-37-8297Dialaoi encounter procedureNia GUILLEN Work Phone: [facility] Work Phone: Start: 12-18-2024 End: 97-73-1590Twdfwapt preventive med est patient 18-39 yrsNia GUILLEN Work Phone: [facility] Elizabeth OBGYNComment on above:Well woman exam with routine gynecological exam; UTI symptoms; Exposure to STD; Vaginal dischargeStart: 12-18-2024 End: 18-27-8541gbjsrhiitqPWZ RAMEYNot AvailableStart: 12-18-2024 End: 15-51-2355Uvwixq flowsheetNia GUILLEN Work Phone: [facility] OBGYNStart: 12-18-2024 End: 22-52-9211Vsweul flowsSarah Elcaitlyn GUILLEN Work Phone: [facility] OBGYNStart: 12-18-2024 End: 92-72-4836Yotylmzfy Result EncounterNia Elcaitlyn GUILLEN Work Phone: [facility] External Department UnsolicitedStart: 12-18-2024 End: 76-50-1083Rwweueor Result EncounterNia Colbert WILMER Work Phone: [facility] External Department UnsolicitedStart: 12-06-2024 End: 34-98-5268wjpqkteqkhKXFBYZZ A DONNAMILLERNot AvailableStart: 12-06-2024 End: 60-07-8755Fefvia outpatient visit 15 minutesCherise Jaimes NP Work Phone: [facility] CenterComment on above:Acute diarrhea (Primary Dx); Nausea; Abdominal crampingStart: 09-26-2024 End: 09-30-6319Cnigfv Autumn Nolan MD Work Phone: [facility] NE FMStart: 09-26-2024 End: 84-74-5252Aemovo Autumn Nolan MD Work Phone: [facility] NE FMStart: 09-26-2024 End: 24-00-5549Fsznzd outpatient visit 15 minutesRaquel Nolan MD Work Phone: [facility] NE FMComment on above:Intractable episodic headache, unspecified headache type (Primary Dx); Nausea; Facial tingling; Overweight; BMI 27.0-27.9,adultStart: 09-26-2024 End: 68-45-9797iwbdlceztyBUKRMMayank Lopez AvailableStart: 06-15-2024 End: 14-88-6579Dqkdblwilson Nolan MD Work Phone: [facility] NE FMStart: 06-15-2024 End: 74-75-6865Jzvmvs Autumn Nolan MD Work Phone: [facility] NE FMStart: 06-15-2024 End: 27-42-3901Yceozn outpatient visit 25 minutesRaquel Nolan MD Work Phone: [facility] NE FMComment on above:Leukocytosis, unspecified type (Primary Dx); Gastroesophageal reflux disease, unspecified whether esophagitis present; BMI 26.0-26.9,adult; OverweightStart: 06-15-2024 End: 55-50-1053wburmmiuqbQMXUC M RUGGLESNot AvailableStart: 06-11-2024 End: 84-42-4841Mmnbtoipv department patient visitElver ThomasFacility:FTMCStart: 04-15-2024 End: 62-12-3688Axkhwtpsm department patient visitNarinder Kumar [facility] Start: 04-12-2024 End: 83-55-9682ptesdrxrytAhupqmdv Ana WarnerFacility:[facility] NorwalkStart: 04-12-2024 End: 27-96-7631Dpxmxfe encounter procedurePatricia Ana Warner [phone]-XgameCrystal Clinic [facility] Start: 03-22-2024 End: 30-81-5045Zowfdt Autumn Nolan MD Work Phone: [facility] NE FMStart: 03-22-2024 End: 80-20-8202Shyssr Autumn Nolan MD Work Phone: [facility] NE FMStart: 03-22-2024 End: 61-35-4626Ffqpkg outpatient visit 15 minutesRaquel oNlan MD Work Phone: [facility] NE FMComment on above:Acute cough (Primary Dx); Nausea; Nasal congestion; Ear fullness, bilateral; BMI 27.0-27.9,adult; OverweightStart: 03-22-2024 End: 90-02-4148mutduwhvqwNTWDO M RUGGLESNot AvailableStart: 03-20-2024 End: 71-20-4128Aeymggsjk department patient visitJohn ParenteFacility:FTMCStart: 03-15-2024 End: 20-90-9443knormjfxdkVgfxztrs Ana DaviddnerFacility:FTMCStart: 12-22-2023 End: 38-11-6219Quzbwf flowsSarah GUILLEN Work Phone: [facility] BCP OBStart: 12-22-2023 End: 00-87-7114Fgqjpv flowsSarah GUILLEN Work Phone: [facility] BCP OBStart: 12-22-2023 End: 24-85-3185Rwjirk outpatient visit 10 minutesNia GUILLEN Work Phone: [facility] BCP OBComment on above:Wellness examination (Primary Dx)Start: 12-22-2023 End: 54-16-5956Vxigaxq encounter statusNia GUILLEN Work Phone: [facility] Work Phone: Start: 12-14-2023 End: 75-02-6820frvqfgogbjOKX L RAMEYFacility:FTMCStart: 12-14-2023 End: 27-82-1610Wcckyfz encounter procedureNIA COLBERT [facility] Start: 12-13-2023 End: 10-14-0547Hneorsq encounter procedureNia GUILLEN Work Phone: [facility] Work Phone: Start: 12-13-2023 End: 40-20-5959Lpvxagiw preventive med est patient 18-39 yrsNia GUILLEN Work Phone: [facility] BCP OBComment on above:Well woman exam with routine gynecological exam; PCOS (polycystic ovarian syndrome); NauseaStart: 12-13-2023 End: 73-17-1104Drwduj flowsSarah GUILLEN Work Phone: [facility] BCP OBStart: 12-13-2023 End: 1998Mkpaagcku Result EncounterNia Filemon GUILLEN Work Phone: no[facility] External Department UnsolicitedStart: 12-13-2023 End: 88-79-6627Dqfrmgzpl Result EncounterNia Filemon GUILLEN Work Phone: noMS External Department UnsolicitedStart: 06-29-2023 End: 25-27-0538Mtxfrrhac department patient visitAmberly Whitehead [facility] Start: 02-16-2023 End: 11-91-9974Yxdwzguxy department patient visitJacinto SiegelElizabeth Maury [facility] Start: 12-18-2022 End: 59-93-6366Lbykecd encounter Travis Aguirre [facility] Start: 12-18-2022 End: 44-25-4071jxkynmffkoFbnux M. DempseyFacility:[facility]ENTERtart: 06-24-2022 End: 39-44-1989cpngqczzhyRK SHAAN MIRYAM .Facility:L2Apkpx: 79-83-2424Dvruykjbo for preprocedural cardiovascular examinationDR SHAAN MIRYAM .[facility] Centertart: 06-10-2022 End: 42-24-1223boewvpusmpPJ SHAAN MIRYAM .Facility:D5Pmndz: 06-10-2022 End: 15-85-9012Momhsttjy for preprocedural cardiovascular examinationDR SHAAN MIRYAM .Facility:U5Qzqwh: 11-19-2021 End: 47-84-7176Iegxiws encounter procedureMaher SALAM [phone]-JdxobCrystal Clinic [facility] Start: 10-18-2021 End: 74-17-7348muhsudnhdyAE SHAAN MIRYAM .Facility:W1Ewrei: 84-54-5471vdxkdjxflu DR SHAAN WITT .Facility:Y0Pnmmz: 10-10-2021 End: 28-34-1867Nvhgnhi encounter procedureJavier Gutierrez MD Work Phone: GastroenterologyComment on above:Constipation, unspecified constipation type (Primary Dx)Start: 09-17-2021 End: 75-76-9998Ismckdcpc department patient visitAmberly Palm Dovandana [facility] Start: 08-07-2021 End: 92-50-0124Yvp Drop offSkarina MUNROE [facility] Start: 07-16-2021 End: 98-76-3852Fonhugtkc department patient visitLucila Peters OllieK[facility]tering Health [facility] Start: 92-15-6097HuwxyfamddUKBXES EHRENBERG [facility] Procedures DateProcedureProcedure DetailPerforming ClinicianStart: 10-17-9867GZ CHEST 2V Shaan Dooleyo DO Work Phone: Start: 52-64-9698JEX CBC WITH AUTO DIFFCorey Miryam DO Work Phone: Start: 95-02-9737CMUDRLFOO VAGINITIS (HTRX)Nia GUILLEN Work Phone: Start: 34-03-1381Qkfqd dip stick/tablet rgnt non-auto w/o micrscpAmy Filemon GUILLEN Work Phone: Start: 21-42-0412LVM,APTIMA HPV,AGE GDRichard GUILLEN Work Phone: Start: 06-31-5058XWV,APTIMA HPV,AGE Catherine GUILLEN Work Phone: Start: 35-27-1462Osnspxrma of intrauterine contraceptive deviceAstrit HajdariLigation of fallopian tubeNodana Mendiola Plan of Treatment DateCare ActivityDetailAuthorStart: 12-25-2025 End: 62-90-7126Vngpgkg encounter gxminkwop02/22/2026 3:00 PM EDT Procedure Visit [facility] [address] [facility] [address] Nia Colbert PA [address] [place] [address] [facility] OBGYNStart: 01-24-2025 End: 86-09-0191Glqufjn encounter zbdhribqw87/22/2025 11:10 AM EDT Consult NOM[facility]al [facility] [address] [facility] [place] [address] Shaan Witt DO [address] [facility] [address] [place] [address] [facility] OBGYNStart: 01-24-2025 End: 39-99-2436Guvxnizwckwc / ancillary services /22/2025 10:00 AM EDT Ancillary Procedure [facility]ARDY[facility] [address] [facility] [address] [facility] OBGYNStart: 12-18-2024 End: 87-12-3341Bxtxmak encounter procedureNOMS BCP OBComment on above:Arrived Start: 69-74-4144Ovfzxiftl vaccinationNOMS HealthcareStart: 09-26-2024 End: 19-67-3446Ogwzvjv encounter wzhveyluw50/24/2025 12:40 PM EDT Office Visit [facility] [address] [place] [id number] [phone], Hanna M, MD [address] [place] [address] ArrivedNOMS NE FMComment on above:ArrivedStart: 06-15-2024 End: 00-37-8024MEU W Auto Differential panel - BloodCBC and differential Lab Routine Leukocytosis, unspecified type Expected: 06/15/2024 (Approximate), Expires: 06/15/2025[facility] Work Phone: comment on above:Expected: 06/15/2024 (Approximate), Expires: 06/15/2025Start: 06-15-2024 End: 74-24-4950Rrwdtdw encounter gedqxulxl39/13/2025 10:40 AM EDT Office Visit [facility] [address] [place] [address] Lbqruoj, Hanna M, MD [address] [place] [address] ArrivedNOWV NE FMComment on above:ArrivedStart: 03-22-2024 End: 37-37-3042Dkdqksp encounter aeimfsikg86/18/2024 12:40 PM EST Office Visit [facility] [address] [place] [address] Hqdknqr, Hanna M, MD [address] [place] [address] ArrivedNOWV NE FMComment on above:ArrivedStart: 12-13-2023 End: 30-77-8781Ojlatoh encounter rkrbhkqvi14/09/2024 3:00 PM EDT Office Visit [facility] [address] [id number] Nia Colbert PA [address] [place] [address] ArrivedNOWV BCP OBComment on above:ArrivedStart: 12-13-2023 End: 02-80-0759Zyjfzh [Enzymatic activity/volume] in Serum or PlasmaLipase Lab Routine Well woman exam with routine gynecological exam PCOS (polycystic ovarian syndrome) Expected: 12/13/2023 (Approximate), Expires: 12/12/2024[facility] Comment on above:Expected: 12/13/2023 (Approximate), Expires: 12/12/2024Start: 12-13-2023 End: 17-31-4385Hharq 1996 panel - Serum or PlasmaLipid panel Lab Routine Well woman exam with routine gynecological exam PCOS (polycystic ovarian syndrome) Expected: 12/13/2023 (Approximate), Expires: 12/12/2024[facility] HealthcareComment on above:Expected: 12/13/2023 (Approximate), Expires: 12/12/2024Start: 12-05-2023 Influenza vaccinationInfluenza Vaccine (#1)[facility] HealthcareStart: 12-04-2021 Influenza vaccinationINFLUENZA (#1)[facility]: 73-22-5568VMQ TESTING PAP TESTINGChillicothe VA Medical Centertart: 25-25-5825Mnhbe microalbumin profile DTAP,TDAP,TD (1 - Tdap)[facility]: 62-16-7328WWZBQGOYT SCREENING (18-24)CHLAMYDIA SCREENING (18-24)[facility]: 18-70-1706PO (GONORRHEA) SCREENING (18-24)GC (GONORRHEA) SCREENING (18-24)[facility] Start: 71-79-8976BCQKTKDAQ C SCREENINGHEPATITIS C SCREENINGWilson Health Start: 82-49-8754GRF SCREENINGHIV SCREENINGChillicothe [facility] Centertart: 76-76-4653XOOR TO ADULT TRANSITION ANNUAL ASSESSMENTPEDS TO ADULT TRANSITION ANNUAL ASSESSMENT [facility]: 37-07-2837Mkptq depression screening assessmentDEPRESSION SCREENINGChillicothe VA [facility] Centertart: 40-21-3641OZFB TO ADULT TRANSITION INITIAL DISCUSSIONPEDS TO ADULT TRANSITION INITIAL DISCUSSIONChillicothe VA Medical Centertart: 08-22-5809WBA VACCINE (1 - 2-dose series)HPV VACCINE (1 - 2-dose series) [facility]: 90-88-0324ZHOTAZDASEBUL B: Consider based on risk (1 of 2 - Risk Bexsero 2-dose series)MENINGOCOCCAL B: Consider based on risk (1 of 2 - Risk Bexsero 2-dose series)[facility]: 80-29-5918KQDMJFFPNHGL (1 - PCV)PNEUMOCOCCAL (1 - PCV)[facility]: 48-45-3453LIDAE-19 VACCINE (#1) COVID-19 VACCINE (#1)[facility] End: 73-88-9885GIHQQ [place] ANORECTAL MANOMETRYADULT [place] ANORECTAL MANOMETRY Endoscopy Routine Constipation, unspecified constipation type 1 Occurrences starting 10/10/2021 until 10/10/2022[facility] Work Phone: Comment on above:1 Occurrences starting 10/10/2021 until 10/10/2022BC W Auto Differential panel - BloodCBC and differential Lab Routine Well woman exam with routine gynecological exam PCOS (polycystic ovarian syndrome) Ordered: 12/13/2023[facility] HealthcareComment on above:Ordered: 12/13/2023 CHLAMYDIA TRACHOMATIS (GENITO/STI)CHLAMYDIA TRACHOMATIS (GENITO/STI) Lab Routine Vaginal discharge Ordered: 12/18/2024[facility] HealthcareComment on above:Ordered: 12/18/2024omprehensive metabolic 2000 panel - Serum or PlasmaComprehensive metabolic panel Lab Routine Well woman exam with routine gynecological exam PCOS (polycystic ovarian syndrome) Ordered: 12/13/2023[facility] HealthcareComment on above:Ordered: 4Cytology Cervical or vaginal smear or scraping studyPap Smear Pathology and Cytology Routine Well woman exam with routine gynecological exam Ordered: 12/13/2023[facility] Work Phone: comment on above:Ordered: ytology Cervical or vaginal smear or scraping studyPap Smear Pathology and Cytology Routine Well woman exam with routine gynecological exam Ordered: 12/18/2024[facility] Work Phone: comment on above:Ordered: 12/18/2024Hemoglobin A1c/Hemoglobin.total in BloodHemoglobin A1c Lab Routine Well woman exam with routine gynecological exam PCOS (polycystic ovariansyndrome) Ordered: 12/13/2023 [facility] HealthcareComment on above:Ordered: 12/13/2023Neisseria gonorrhoeae DNA [Presence] in Unspecified specimen by PRASHANT with probe detectionNeisseria gonorrhea DNA probe, direct Lab Routine Vaginal discharge Ordered: 12/18/2024 [facility] HealthcareComment on above:Ordered: 12/18/2024SURESWAB(R) ADVANCED VAGINITIS PLUS, TMASURESWAB(R) ADVANCED VAGINITIS PLUS, TMA Pathology and Cytology Routine Exposure to STD Ordered: 12/18/2024[facility] HealthcareComment on above:Ordered: 12/18/2024Thyrotropin [Units/volume] in Serum or PlasmaTSH Lab Routine Well woman exam with routine gynecological exam PCOS (polycystic ovarian syndrome) Ordered: 12/13/2023[facility] HealthcareComment on above:Ordered: [facility] Immunizations Immunization DateImmunizationNotesCare MpzxhpeuAdhtyyno47-72-2395sjzxirt toxoid, reduced diphtheria toxoid, and acellular pertussis vaccine, adsorbedAmy Filemon GUILLEN Work Phone: [facility] HospitalXkbkcvdjoj47-91-9312qhcqbuu toxoid, unspecified formulationBayonne Medical Centerit [facility]ittman Medical CenterComment on above:Result Comment: Done at Health DepartmentResult Comment: Done at Health Department 35-70-0456sjhfxks toxoid, reduced diphtheria toxoid, and acellular pertussis vaccine, adsorbedMaher SALAM 916-9348Kymkqo-XcrhiC[facility] 10-542584-41-0099fkkxpjqpf A vaccine, unspecified formulation Aguilar SALAM 067-7439Axaghs-JdqabC[facility] 10-532248-66-5184NBJ, unspecified formulationMaher SALAM 680-2344Haenry-MegbwC[facility] 10-269068-67-7034rqygnatooluww B vaccine, fully recombinant Aguilar SALAM 815-4845Lebrdv-ThpwxC[facility] 08-768705-55-1399ZTG, unspecified formulationMaher SALAM 307-0604Hbvkkv-AucutC[facility] 09379561-21-3493hjkyvqqqcxtcd ACWY vaccine, unspecified formulationMaher SALAM 389-9167Vcboig-LwxcfC[facility] 09-818417-83-3173rmllqtmqxzbzd polysaccharide (groups A, C, Y and W-135) diphtheria toxoid conjugate vaccine (MCV4P)Nia GUILLEN Work Phone: [facility] HospitalRixiwubcrq66-64-6146njmqmay toxoid, reduced diphtheria toxoid, and acellular pertussis vaccine, adsorbedMaher SALAM 266-6177Jtarmq-XqoyaC[facility] 11302968-38-6431otmrt xbyyuoban-K9R0-58, preservative-free, injectableNia GUILLEN Work Phone: [facility] HospitalBbbfozyumn59-83-3236iyrajymffp, tetanus toxoids and acellular pertussis vaccineNia GUILLEN Work Phone: [facility] HospitalFewjogxdpd81-41-5254btwhhwuxyl, tetanus toxoids and acellular pertussis vaccine, unspecified formulationNia GUILLEN Work Phone: [facility] HospitalAphhmernqu64-58-2703RFjM, unspecified formulation Aguilar SALAM 991-7149Lwcxgl-JgeymC[facility] 10907113-39-5584hyyzqcn, mumps and rubella virus vaccineHiher SALAM 197-1672Byyiil-ToyijC[facility] 10560049-67-0291njayxqphep vaccine, unspecified formulation iNa GUILLEN Work Phone: [facility] HospitalRyezhnimic82-89-0910gaecirjmqibi conjugate vaccine, 7 valSaad GUILLEN Work Phone: [facility] HospitalGuncunrdtk98-70-2918rnqpydkdosaq conjugate vaccine, 7 valSaad GUILLEN Work Phone: [facility] HospitalVzugnsocek00-74-8333iaintcfbbj, tetanus toxoids and acellular pertussis vaccineNia GUILLEN Work Phone: [facility] HospitalQsedyvawzl15-01-7373vxjzybfnvv, tetanus toxoids and acellular pertussis vaccine, unspecified formulationNia GUILLEN Work Phone: [facility] HospitalPbgydhlrqo16-46-9864AYjV, unspecified formulation Aguilar SALAM 542-8948Ujfnwc-ZopqyCrystal [facility] 257488-79-0351dfyispdtyva influenzae type b vaccine, PRP- OMP conjugateMaher SALAM 986-8535Peospq-UrnnpCrystal [facility] 09214680-80-0243gjumfgb, mumps and rubella virus vaccineMaher SALAM 141-5432Xsoaox-EeuodCrystal [facility] 09284458-68-0851joxgyfggzc vaccine, inactivatedAmy Filemon GUILLEN Work Phone: [facility] HospitalLswzjoxyoa84-08-5213klvsnbrpdu vaccine, unspecified formulationHiher SALAM 712-9815Mczhig-YysedCrystal [facility] 510326-81-0200zktphjdtiy, tetanus toxoids and acellular pertussis vaccineNia GUILLEN Work Phone: [facility] HospitalSfnhbfxxpc33-32-0432xwboryjggy, tetanus toxoids and acellular pertussis vaccine, unspecified formulationNia GUILLEN Work Phone: [facility] HospitalQeaochqizl77-83-4101OSkM, unspecified formulation Aguilar SALAM 825-0720Moeeib-VtoteC[facility] 861203-54-6758tvoirdemnuh influenzae type b vaccine, PRP- OMP conjugateMaher SALAM 369-8567Ajuybu-RjzhxCrystal Clinic [facility] 01-787172-79-8906jhlclulri B vaccine, pediatric or pediatric/adolescent dosageMaher SALAM 944-8213Ydghku-RivjxCrystal Clinic Orth[facility] 329233-41-7351vsspcptmah, tetanus toxoids and acellular pertussis vaccineAmy Filemon GUILLEN Work Phone: [facility] HospitalZoxxlxfvon45-99-5615ztxssypjnr, tetanus toxoids and acellular pertussis vaccine, unspecified formulationAmy Filemon PA Work Phone: [facility] HospitalQguhxcusbf49-40-4401CNhN, unspecified formulation Aguilar SALAM 597-9945Muutit-FmyowC[facility] 11823325-23-7134ehazxrtpmhp influenzae type b vaccine, PRP- OMP conjugateMaher SALAM 976-6456Npheqe-DjywlC[facility] 0-030483-36838621-05-1336zcracbqyja vaccine, inactivatedAmy Filemon PA Work Phone: [facility] HospitalMjhifirtyx25-84-2052foafukvhck vaccine, unspecified formulationMaher SALAM 147-3453Jpfzoh-OfagmC[facility] 683373-21-0962wggshmmmlw, tetanus toxoids and acellular pertussis vaccineAmy Leblanc PA Work Phone: [facility] HospitalXxdedcevgg43-02-3137fwbyebwirs, tetanus toxoids and acellular pertussis vaccine, unspecified formulationAmy Leblanc PA Work Phone: [facility] HospitalVrehuamucj16-72-6155AHtK, unspecified formulation Aguilar SALAM 535-5840Nvnjdw-MqsacC[facility] 09388552-00-8348awvezjyvgak influenzae type b vaccine, PRP- OMP conjugateMaher SALAM 737-3176Oruojo-RmdprC[facility] 09745340-90-6990fdqirwnwl B vaccine, pediatric or pediatric/adolescent dosageMaher SALAM 090-5800Sarudn-ShilrCrystal [facility] 09432186-83-8465rvokkqzxuo vaccine, inactivatedAmy Leblanc PA Work Phone: [facility] HospitalElyxxifxqj95-73-5727nnijzhcgfp vaccine, unspecified formulationMaher SALAM 222-9813Gstwiu-WqlmeC[facility] 452268-30-6713oxjbwzmvf B vaccine, pediatric or pediatric/adolescent dosageMaher SALAM 445-9170Ayykbh-KvedeCrystal Clinic [facility] NEGATED: Highlighted row has not occurred!03-21-2019 influenza virus vaccine, live, attenuated, for intranasal useAstrit Ollie [facility] Payers DatePayer CategoryPayerPolicy [id number] [id number] [facility] [id number] 2023- [phone] [address] [place] [address] [id number] Medicaid[place] MEDICAID [place] MED[place] [id number] 2017-Present [phone] [address] [place] [address] [id number] [id number] 2.16.840.1.923949.3.57[id number] .16.840.1.763381.3.57[id number] 2.16.840.1.852916.3.57[id number] 2.16.840.1.704277.3.57[id number] 2.16.840.1.069475.3.57[id number] 2.16.840.1.935186.3.57[id number] 2.16840.1.390241.3.579.2.31007-29-0981Fzdowgs23021680 2.16840.1.085325.3.57[id number] 2.16840.1.402969.3.57[id number] 2.16840.1.193976.3.57[id number] 2.16840.1.467825.3.57[id number] 2.16.840.1.182091.3.57[id number] 2.16840.1.094231.3.579.[id number] 2.16.840.1.066407.3.57[id number] 2.16840.1.227068.3.579.[id number] 2.16.840.1.155179.3.579.2.67533-56-4784Xgrqalh88601213 2.16.840.1.962763.3.579.2.[id number] 2.16.840.1.298752.3.579.[id number] 2.16.840.1.630228.3.579.2.828076-05-5162Tldbvhj29910168 2.16.840.1.312003.3.579.2.470500-43-8786Wribhlx24676379 2.16.840.1.637586.3.579.2.429501-74-8488Rzpmpio16226575 2.16.840.1.542675.3.579.2.004489-05-6802Dvlhzek73497513 2.16.840.1.630354.3.579.2.463004-86-9991Ifwhntp1266006 2.16.840.1.626390.3.57[id number] 2.16.840.1.386903.3.579.2.305536-97-7882Ayec-buc9[id number] Social History DateTypeDetailFacilityTobaccoCurrent every day smokerKettering Health HamiltonComment on above:currentcurrentStart: 08-27-2023 End: 54-92-8436Sgx Assigned At BirthFeMercy Health Fairfield Hospitaltart: 69-78-2081Rbdiupo smoking status NHISOccasional tobacco smokerWilson Health History of tobacco useCigarette SmokerChillicothe VA Medical Centertart: 10-10-2021 End: 96-90-6111Tmbkghdunx smoked current (pack per day) - Wgyvsniv3LOVO HealthcareStart: 13-06-4905Xazdqhi intakeEx-drinker (finding)[facility] Start: 04-15-2974Vdmefgk Commentsmokes 1 packs every 2 daysWilson Health Start: 72-34-5616Khs Assigned At BirthNot on fileChillicothe VA Medical Centertart: 12-18-2022 End: 76-12-5255Kijtgwz smoking statusLight tobacco smoker (finding)[facility] CareComment on above:currentTobacco smoking statusNo Smoking Status EnteredChildren's Hospital for Rehabilitationtart: 09-14-2022 End: 76-82-8389Aimwajk smoking status NHISSmokes tobacco dailyNOMS Healthcare Start: 09-14-2022 End: 15-13-1754Yfnuqdn use and exposureSmokeless tobacco non-userNOMS Healthcare Start: 12-13-2023 End: 90-43-9351Ywyicmbqk beverage intakeLifetime non-drinker (finding)[facility] HospitalStart: 89-22-3966Idpsarp CommentCaffeine intake: occasionalNOMS HealthcareStart: 22-33-8095MwwGshzuqATZV Healthcare Functional Status QbunPpdjpcotrnKkodpaBofwrway06-17-0418Wfleapa Health Questionnaire 2 item (PHQ- 2) [Reported][facility] HospitalVkaehecxsp10-10-8563Ijpehrsqoc StatusN/[facility]01-08-2025Functional StatusN/[facility] 35-34-5629Yngxjvscum StatusN/[facility]03-26-2024Functional StatusN/[facility]11-14-2023Functional StatusN/[facility]06-15-2022Functional StatusN/[facility] Clinical Notes 07-16-2021 to 01-24-2025 Note Date & IqurJbssUceckiat07-78-5949 History of Present illness Narrative* Krista Nazia - 01/24/2025 11:10 AM EDT Reason for Appointment: Patient ID: Socorro Joseph is a 24 y.o. female who presents for Pre-op Visit Patient presents today for Pre Op appointment. Patient is scheduled to undergo Da Aliya assisted Laparoscopic Hysterectomy, possible exploratory laparotomy, possible BSO, possible cystoscopy on 02/19/[address] Witt at [facility]. MEDICATIONS Current Outpatient Medications Medication Instructions [...] II, CUONG III History of being hospitalized [facility] inflammation of stomach and ovarian cyst pain [...] ENDOMETRIAL ABLATION 02/05/2023 PAP SMEAR 08/12/2021 negative [place] SALPINGECTOMY COMPLETE/PARTIAL UNI/BI SPX 06/24/2022 robotic, fulguration [...] nursing note reviewed. Exam conducted with a laundry technician present. Vitals: Estimated body mass index is [...] cystoscopy on 02/19/2025. Surgical consents were signed, [facility] was reviewed, and patient is to proceed to [facility] OR. Follow Up: Patient is to follow up at 1 & 6 weeks post operative to assess proper healing and recovery from procedure. Documented by Debi Nunez LPN on behalf of: Shaan Witt DO documented in this encounterOzarks Community HospitalTmqgyrslih77-62-0358 History of Present illness Narrative* WILMER Hernandez [...] II, CUONG III History of being hospitalized [facility] inflammation of stomach and ovarian cyst pain [...] ENDOMETRIAL ABLATION 02/05/2023 PAP SMEAR 08/12/2021 negative [place] SALPINGECTOMY COMPLETE/PARTIAL UNI/BI SPX 06/24/2022 robotic, fulguration [...] nursing note reviewed. Exam conducted with a laundry technician present. Vitals: Estimated body mass index is [...] behalf of: WILMER Hernandez documented in this encounterOzarks Community HospitalHcswhzaoab90-90-3752 History of Present illness Narrative* Cherise Jaimes [...] sub stitutions have occurred. documented in this encounterOzarks Community HospitalNkpsvydjxq47-43-4200 History of Present illness Narrative* Raquel Nolan [...] imaging if sx persist. documented in this encounterOzarks Community HospitalOkpwwdxwxo55-95-8694 History of Present illness Narrative* Raquel Nolan MD - 06/15/2024 10:40 AM EDT Images from the original note were not included. Patient: Socoror Joseph : 2000 PCP: Raquel Nolan MD [...] Nolan MD Hospital Information ED, Hospital or Custodial Facility Discharge? ED Patient has been contacted within 2 days of being seen in the ED Yes Diagnosis Virus Discharge Date 06/11/24 Discharged To: Home Setting Discharge Hospital [facility] Engagement Admission Date 06/11/24 Medications Discharge medications [...] or fail to improve. documented in this encounterOzarks Community HospitalPsteyfiiub30-52-2606 NoteED Patient Education Note Gastroenterology Viral Gastroenteritis, [...] and water are not available, use hand caser in. ??? Make sure that all people in your household wash their hands well and often. ??? Take bxxh-ssz-dgvugdw and prescription medicines only as told by [...] Get help right (more content not included)...[facility]01-12-2025 Evaluation + Plan note Extracted from:Title:ED NoteAuthor:Narinder Kumar DODate:04/16/24 Abdominal pain, acute, epiga stric (R10.13: Epigastric pain) N&V (nausea and vomiting) (R11.2: Nausea with vomiting, unspecified) Orders: dicyclomine, 10 mg = 1 cap(s), Oral, QID, PRN Nausea/Vomiting, For abdominal cramping, # 16 cap(s),Refills(s) 0, Pharmacy: [facility], 177, cm, 04/15/24 21:15:00 [...] PRN Nausea/Vomiting, # 12 tab(s), Refills(s) 0, Pharmacy:[facility], 177, cm, 04/15/24 21:15:00 [...] CT Abdomen/Pelvis w/ Contrast eGFR Lipase Level [facility] 01-12-2025 Hospital Discharge instructions Patient Education 04/16/2024 [...] Follow these instructions at home: Medicines Take lrkj-jji-lbrnztu and prescription medicines only as told by [...] provider. Document Revised: 01/06/2023 Document Reviewed: 01/06/2023 [employer] Patient Education 2023 [employer]. Follow Up Care 04/15/2024 20:34:28 With:Raquel Nolan Address: [address] [place] [address]- [facility] (1) When:04/19/2024 Comments:Call the office of [...] you develop any new or worsening symptoms. [facility] 01-12-2025 NoteED Patient Education Note Gastroenterology Abdominal [...] these instructions at home: Medicines ??? Take vzsc-tbc-jyldegp and prescription medicines only as told by [...] provider. Document Revised: 01/06/2023 Document Reviewed: 01/06/2023 ElseHi-Dis([employer]) Patient Education ? 2023 [employer].[facility] 04-12-2024 Hospital Discharge instructions Patient Education 04/12/2024 18:34:01 Influenza, Adult, Ocsk-jk-Scvt Influenza, Adult Influenza is also called the [...] Your doctor may want you to: Take tyyx-vwp-cvoaenv medicines. Drink plenty of fluids. The flu [...] foods include: ?Bananas. ?Applesauce. ?Rice. ?Lean meats. ?Cleone. ?Crackers. Do not eat or drink: ?Fluids that have a lot of sugar or caffeine. ?Alcohol. ?Spicy or fatty foods. General instructions Take yioh-cfd-udgbyqw and prescription medicines only as told by [...] use soap and water, use alcohol-based hand caser in. Keep all follow-up visits. How is this [...] spreads easily from person to person. Take bcqp-jjk-wgnyapv and prescription medicines only as told by your doctor. Getting a flu shot every year is the best way to not get the flu. This information is not intended to replace advice given to you by your health care provider. Make sure you discuss any questions you have with your health care provider. Document Revised: 11/06/2020 Document Reviewed: 11/08/2020 [employer] Patient Education 2023 [employer]. Follow Up Care 04/12/2024 13:30:03 With:Raquel Nolan MD Address: [place] [address]- When: Unknown [facility] 01-08-2025 NotePatient Education Infectious Disease [...] doctor may want you to: ??? Take yfuf-bcm-tdjwfmy medicines. ??? Drink plenty of fluids. The [...] Applesauce. ? Rice. ? Lean meats. ? Cleone. ? Crackers. ??? Do not eat or drink: ? Fluids that have a lot of sugar or caffeine. ? Alcohol. ? Spicy or fatty foods. General instructions ??? Take oxub-kte-lnlicai and prescription medicines only as told by [...] use soap and water, use alcohol-based hand caser in. ??? Keep all follow-up visits. How is [...] [place] ??? Do (more content not included)...[facility]12-18-2024 History of Present illness Narrative* Raquel [...] Rogers MA Hospital Information ED, Hospital or Custodial Facility Discharge? ED Patient has been contacted within 1 week of being seen in the ED Yes Discharge Date 03/20/24 Discharged To: Home Setting Discharge Hospital [facility] Engagement Admission Date 03/20/24 Medications Discharge medications [...] or fail to improve. documented in this encounterOzarks Community HospitalNnnneljjqk11-70-3475 Hospital Discharge instructions Patient Education 03/20/2024 09:23:47 [...] Follow these instructions at home: Medicines Take elrt-nlv-savnndr and prescription medicines only as told by [...] provider. Document Revised: 11/20/2022 Document Reviewed: 11/20/2022 [employer] Patient Education 2023 [employer]. 03/20/2024 09:23:47 Abdominal Pain, Adult Abdominal Pain, [...] Follow these instructions at home: Medicines Take zhzw-xxt-migpkop and prescription medicines only as told by [...] provider. Document Revised: 01/06/2023 Document Reviewed: 01/06/2023 ElseHi-Dis([employer]) Patient Education 2023 [employer] Follow Up Care 03/20/2024 07:17:55 With:Raquel Nolan Address: [place] [address]- Business (1) When:03/23/2024 09:16:32 [facility] 12-16-2024 NoteED Patient Education Note ENT Cough, [...] these instructions at home: Medicines ??? Take dmzi-foq-ngfsmhe and prescription medicines only as told by [...] provider. Document Revised: 11/20/2022 Document Reviewed: 11/20/2022 [employer] Patient Education ? 2023 Answerology. Gastroenterology Abdominal Pain, Adult Pain in the [...] these instructions at home: Medicines ??? Take lbld-xoi-lgaximp and prescription medicines only as told by [...] discuss any qu (more content not included)...[facility]12-11-2024 NotePatient Education ENT Cough, Adult A [...] these instructions at home: Medicines ??? Take ewsm-vsi-zikgkki and prescription medicines only as told by [...] provider. Document Revised: 11/20/2022 Document Reviewed: 11/20/2022 [employer] Patient Education ? 2023 [employer] Infectious Disease Viral Respiratory Infection A [...] home: Managing pain and congestion ??? Take grqj-ubi-ncswntv and prescription medicines only as told by [...] is this pr (more content not included)...[facility] 12-22-2023 History of Present illness Narrative* WILMER Hernandez - 12/22/2023 10:30 AM EDT Reason for Appointment: Patient ID: Socorro Joseph is a 23 y.o. female who presents for No chief complaint on file. Patient presents today via telephone call for a telehealth appointment. Patients Phone #: [phone] (mobile) Current Medications: has a current medication list which includes the following prescription(s): albuterol hfa, ibuprofen, metformin, ondansetron, and ondansetron odt. Medical History: Active Ambulatory Problems Diagnosis Date Noted Depression ([facility]) 09/14/2022 CUONG II (cervical intraepithelial neoplasia II) 09/24/2022 Colitis 09/24/2022 Constipation 09/24/2022 Nausea 09/24/2022 Mechanical complication of intrauterine contraceptive device 09/24/2022 Moderate episode of recurrent major depressive disorder (HCC) ([facility]) 09/24/2022 Pelvic and perineal pain 09/24/2022 [...] hospitalized History of cervical dysplasia Post depression ([facility]) Smoker Family History Problem Relation Name [...] ENDOMETRIAL ABLATION 02/05/2023 PAP SMEAR 08/12/2021 negative [place] SALPINGECTOMY COMPLETE/PARTIAL UNI/BI SPX 06/24/2022 robotic, fulguration [...] for a telehealth appointment. Patients Phone #: [phone] (mobile) Current Medications: has a current medication [...] ENDOMETRIAL ABLATION 02/05/2023 PAP SMEAR 08/12/2021 negative [place] SALPINGECTOMY COMPLETE/PARTIAL UNI/BI SPX 06/24/2022 robotic, fulguration [...] behalf of: WILMER Hernandez documented in this encounterOzarks Community [id number] History of Present illness Narrative* WILMER Hernandez - 12/13/2023 3:00 PM EDT Reason for Appointment: Patient ID: Socorro Joseph is a 23 y.o. female who presents for [facility] Patient presents today for Annual [...] episode of recurrent major depressive disorder (HCC) ([facility]) 09/24/2022 Pelvic and perineal pain [...] hospitalized History of cervical dysplasia Post depression ([facility]) Smoker HISTORY PAST MEDICAL HISTORY SOCIAL HISTORY Past Medical History: Diagnosis Date Constipation History of abnormal cervical Pap smear Colpo: CUONG II; Leep - CUONG II, CUONG III History of being hospitalized [facility] inflammation of stomach and ovarian cyst pain History of cervical dysplasia Pelvic and perineal pain Post depression ([facility]) Smoker Social History Tobacco Use Smoking status: [...] ENDOMETRIAL ABLATION 02/05/2023 PAP SMEAR 08/12/2021 negative [place] SALPINGECTOMY COMPLETE/PARTIAL UNI/BI SPX 06/24/2022 robotic, fulguration [...] nursing note reviewed. Exam conducted with a laundry technician present. Vitals: Estimated body mass index is [...] of: WILMER Hernandez documented in this encounterNOMS [id number] Hospital Discharge instructions Patient Education 06/30/2023 00:02:57 Nausea and Vomiting, Adult, Kgmq-fn-Ahqc Nausea and Vomiting, Adult Nausea is feeling [...] fruit juice). ?Low-calorie sports drinks. Eat bland, mdwm-oa-vwmfzs foods in small amounts as you are able, such as: ?Bananas. ?Applesauce. ?Rice. ?Low-fat (lean) meats. ?Cleone. ?Crackers. Avoid drinking fluids that have a lot of sugar or caffeine in them. This includes energy drinks, sports drinks, and soda. Avoid alcohol. Avoid spicy or fatty foods. General instructions Take owrx-tal-babaien and prescription medicines only as told by your doctor. Drink enough fluid to keep your pee (urine) pale yellow. Wash your hands often with soap and water for at least 20 seconds. If you cannot use soap and water, use hand caser in. Make sure that everyone in your home [...] your doctor about eating and drinking. Take yhxs-szu-uzbewob and prescription medicines only as told by your doctor. Contact your doctor if your symptoms get worse or you have new symptoms. Keep all follow-up visits. This information is not intended to replace advice given to you by your health care provider. Make sure you discuss any questions you have with your health care provider. Document Revised: 09/26/2021 Document Reviewed: 09/26/2021 [employer] Patient Education 2022 [employer]. 06/30/2023 00:02:57 General Headache Without Cause, Lxub-kz-Bedo General Headache Without Cause A headache is pain or discomfort you feel around the head or neck area. There are many causes and types of headaches. In some cases, the cause may not be found. Follow these instructions at home: Watch your condition for any changes. Let your doctor know about them. Take these steps to help with your condition: Managing pain Take azlq-msh-xvbxalx and prescription medicines only as told by [...] away. Call your local emergency services ([address] [facility] [place] Do not wait to see [...] provider. Document Revised: 08/20/2021 Document Reviewed: 08/20/2021 [employer] Patient Education 2022 [employer] 06/30/2023 00:02:57 Abdominal Pain, Adult, Diza-vg-Hcjt Abdominal Pain, Adult Many things can cause belly (abdominal) pain. Most times, belly pain is not dangerous. Many cases of belly pain can be watched and treated at home. Sometimes, though, belly pain is serious. Your doctor will try to find the cause of your belly pain. Follow these instructions at home: Medicines Take lndd-hmc-vxbqtkm and prescription medicines only as told by [...] your belly pain for any changes. Take ogyw-cse-imwiddf and prescription medicines only as told by [...] provider. Document Revised: 07/31/2019 Document Reviewed: 07/31/2019 [employer] Patient Education 2022 [employer]. Follow Up Care 06/29/2023 19:12:13 With:Raquel Nolan Address: [address] [place] [address]- Business (1) When:07/02/2023 Comments:You can take the medications as prescribed as needed for pain. Please follow-up with your primary care doctor in the next 2 to 3 days for further evaluation management. Please return to the ED for any new or worsening symptoms. [facility]03-26-2024 Evaluation + Plan noteExtracted from: Title:ED NoteAuthor:Amberly [...] day(s), # 9 tab(s), Refills(s) 0, Pharmacy: [facility], 175, cm, 06/29/23 19:28:00 EDT, Height/Length Dosing, 82, kg, 06/29/23 19:28:00 EDT, Weight Dosing metoclopramide, 10 mg = 2 mL, Injection, IV Push, Once, Stop date 06/29/23 21:00:00 EDT, STAT, Start date 06/29/23 21:00:00 EDT, 06/29/23 21:00:00 EDT naproxen, 500 mg = 1 tab(s), Oral, BID, PRN for pain, # 20 tab(s), Refills(s) 0, Pharmacy: [facility], 175, cm, 06/29/23 19:28:00 EDT, Height/Length Dosing, 82, kg, 06/29/23 19:28:00 EDT, Weight Dosing ondansetron, 4 mg = 1 tab(s), Oral, q8hr, # 12 tab(s), Refills(s) 0, Pharmacy: [facility], 175, cm, 06/29/23 19:28:00 [...] Panel Lipase Level UA with Cult Rflx [facility]11-14-2023 Evaluation + Plan noteExtracted from: Title:ED NoteAuthor:Maury [...] Level Saline Lock Insert Troponin 0 Hr. [facility]11-14-2023 Hospital Discharge instructions Patient Education 02/16/2023 07:09:21 [...] water added (diluted fruit juice). Eat bland, zhcx-nv-mwpwdb foods in small amounts as you are able. These foods include bananas, applesauce, rice, lean meats, toast, and crackers. Avoid fluids that contain a lot of sugar or caffeine, such as energy drinks, sports drinks, and soda. Avoid alcohol. Avoid spicy or fatty foods. General instructions Take lbhd-yzb-mwrgalf and prescription medicines only as told by your health care provider. Drink enough fluid to keep your urine pale yellow. Wash your hands often using soap and water for at least 20 seconds. If soap and water are not available, use hand caser in. Make sure that everyone in your household [...] eating and drinking to prevent dehydration. Take vqxx-xfw-qqbdodh and prescription medicines only as told by [...] provider. Document Revised: 09/26/2021 Document Reviewed: 09/26/2021 [employer] Patient Education 2022 [employer]. Follow Up Care 02/16/2023 05:06:19 With:Lilliam Gonzalez Address: [address] [place] [phone]- Business (1) When:Within 3 Day(s) [facility]03-22-2023 NoteOPERATIVE NOTE OPERATION DATE: 06/24/2022 PROCEDURE: Robotic assisted bilateral laparoscopic salpingectomy, fulguration of ovarian endometrial implant. PREOPERATIVE DIAGNOSIS: Desires permanent sterilization, multiparity. POSTOPERATIVE DIAGNOSIS: Desires permanent sterilization, multiparity. ANESTHESIA: General. SURGEON: Shaan Witt D.O. FREELANCE WRITER: ASHLEY Dominguez URINE OUTPUT: Yellow and clear. [...] lap and needle counts were correct x2.[facility] [id number] NoteHNO ID: [id number] Author: Javier Gutierrez MD Service: ? Author Type: Physician Type: Progress Notes Filed: 10/10/2021 3:41 PM Note Text: NAME: Socorro Joseph CLINIC NO: [id number] REASON FOR VISIT Socorro Joseph is a [...] No masses or organomegaly. (more content not included)...[facility]07-08-2022 History of Present illness Narrative* Javier Gutierrez MD - 10/10/2021 2:00 PM EDT NAME: Socorro Joseph [facility] NO: [id number] REASON FOR VISIT Socorro Joseph is a [...] 10, 2021 11:07 AM documented in this encounterWilson Health06-16-2022 Hospital Discharge instructions Patient Education 09/18/2021 03:02:59 Ovarian Cyst, Msca-ft-Rhbn Ovarian Cyst An ovarian cyst is a fluid-filled sac on an ovary. The ovaries are organs that make eggs in women. Most ovarian cysts go away on their own and are not cancerous (are benign). Some cysts need treatment. Follow these instructions at home: Take jdii-cqn-earmjct and prescription medicines only as told by [...] 09/07/2008 Document Revised: 03/04/2018 Document Reviewed: 08/23/2016 [employer] Patient Education 2020 [employer]. 09/18/2021 03:02:59 Colitis Colitis Colitis is inflammation [...] if you start to feel better. Take xnvv-qtc-xhjlqfl and prescription medicines only as told by [...] 04/29/2005 Document Revised: 09/22/2018 Document Reviewed: 09/22/2018 [employer] Patient Education [place]. Follow Up Care 09/17/2021 22:00:56 With:Jeff ROACH Address: [facility] [address] [place] [address] Business (1) When:09/21/2021 Comments:Take The antibiotics as prescribed until you have completed the course. You can use the Zofran every 6 hours as needed for nausea and vomiting. You can use the Shevlin every 6 hours as needed for pain or the Bentyl every 8 hours. Please follow-up with your primary care doctor in addition to GI for further evaluation and management of the inflammation of your colon. Please return to the ED for any new or worsening symptoms. With:Raquel Nolan Address: [place] [address]- Business (1) When:Within 3 Day(s) [facility]06-15-2022 Evaluation + Plan noteExtracted from: Title:ED NoteAuthor:Amberly [...] Date:11/19/2021 08:00:00 AM Scheduled Provider:Jeff ROACH MD Location:[facility] Appointment Type:[place]04-13-2022 Hospital Discharge instructions Patient Education 07/16/2021 16:41:56 [...] 03/22/2006 Document Revised: 06/29/2018 Document Reviewed: 04/23/2017 [employer] Patient Education [place]. Follow Up Care 07/16/2021 14:22:36 With:Sujit Mujica Address: [address] [place] [phone] Business (1) When:07/18/2021 16:29:07 Comments:Make sure to follow-up with Dr. Mujica as discussed. Return to the emergency room if your bleeding gets worse, you develop dizziness your abdominal pain gets worse or any new symptoms. With:Lilliam Gonzalez Address: [address] [place] [phone] Business (1) When:Within 3 Day(s) [facility]04-13-2022 Evaluation + Plan noteExtracted from: Title:ED NoteAuthor:Lucila [...] Beta Hcg Qual UA With Cult Reflex [facility]* Diagnosis Constipation, unspecified constipation type- Primary documented in this encounter [facility]* Diagnosis Wellness examination- Primary documented in this encounter [facility]* Diagnosis Nausea- Primary Nausea alone Acute cough- Primary Nausea Nausea alone Nasal congestion Other diseases of nasal cavity and sinuses Ear fullness, bilateral BMI 27.0-27.9,adult Overweight documented in this encounter [facility]* Diagnosis Well woman exam with routine gynecological exam Routine gynecological examination PCOS (polycystic ovarian syndrome) Polycystic ovaries Nausea Nausea alone documented in this encounter [facility]* Diagnosis Nausea- Primary Nausea alone Leukocytosis, unspecified type- Primary Gastroesophageal reflux disease, unspecified whether esophagitis present BMI 26.0-26.9,adult Overweight documented in this encounter [facility] note* Diagnosis Nausea- Primary Nausea alone Intractable episodic headache, unspecified headache type- Primary Nausea Nausea alone Facial tingling Overweight BMI 27.0-27.9,adult documented in this encounter [facility]* Diagnosis Nausea- Primary Nausea alone Acute diarrhea- Primary Diarrhea Nausea Nausea alone Abdominal cramping Abdominal pain, unspecified site documented in this encounter [facility] note* Diagnosis Nausea- Primary Nausea alone Well woman exam with routine gynecological exam Routine gynecological examination UTI symptoms Exposure to STD Vaginal discharge Leukorrhea, not specified as infective documented in this encounter [facility] note* Diagnosis Nausea- Primary Nausea alone Pre-operative exam Unspecified pre-operative examination Menorrhagia with irregular cycle Pelvic pain in female Unspecified symptom associated with female genital organs Dysmenorrhea Dyspareunia, female documented in this encounter [facility] Narrative No data available for this section [facility] No data available for this section [facility] No data available for this section [facility] for referral (narrative)* Outpatient Procedure (Routine) - AuthorizedSpecialtyDiagnoses / ProceduresReferred By ContactReferred To [facility] Diagnoses Constipation, unspecified constipation type Procedures ADULT [place] ANORECTAL MANOMETRY ANORECTAL MANOMETRY Javier Gutierrez MD [address] [place] [address] [facility] [place] [address] [place], [place] [id number] Referral IDStatusReasonStart DateExpiration DateVisits RequestedVisits [id number] Auto-Generated Referral [facility] Summary Purpose Family History No Family History [...] section and content) DATE CREATED AUTHOR 09/23/2017 [facility] DATE CREATED AUTHOR AUTHOR'S ORGANIZ ATION 11/07/2021 [facility] DATE CREATED AUTHOR AUTHOR'S ORGANIZ ATION 07/10/2022 [facility] DATE CREATED AUTHOR AUTHOR'S ORGANIZ ATION 12/16/2023 [facility] DATE CREATED AUTHOR AUTHOR'S ORGANIZ ATION 03/21/2024 [facility] DATE CREATED AUTHOR AUTHOR'S ORGANIZ ATION 04/18/2024 [facility] DATE CREATED AUTHOR AUTHOR'S ORGANIZ ATION 04/19/2024 [facility] DATE CREATED AUTHOR AUTHOR'S ORGANIZ ATION 06/12/2024 [facility] DATE CREATED AUTHOR AUTHOR'S ORGANIZ ATION 06/18/2024 [facility] DATE CREATED AUTHOR AUTHOR'S ORGANIZ ATION 06/20/2024 [facility] DATE CREATED AUTHOR AUTHOR'S ORGANIZ ATION 01/25/2025 [facility] EPIC Care Team (unrecognized sect ion and content) Team MemberRelationshipSpecialtyStart DateEnd Date Raquel Nolan MD [address] [place] [address] PCP - [facility]09/14/22 Raquel Nolan MD [address] [place] [address] PCP - [facility]10/03/22Te MemberRelationshipSpecialtyStart DateEnd Date Raquel Nolan MD [address] [place] [address] [facility]09/14/22 Raquel Nolan MD [address] [place] [address] [facility]10/03/22Te MemberRelationshipSpecialtyStart DateEnd Date Raquel Nolan MD [address] [place] [address] [facility]09/14/22Te MemberRelationshipSpecialtyStart DateEnd Date Raquel Nolan MD [address] [place] [address] PCP - [facility]09/14/22Te MemberRelationshipSpecialtyStart DateEnd Date Raquel Nolan MD [address] [place] [address] [facility] - [facility]09/14/22 Raquel Nolan MD [address] [place] [address] [facility] - [facility]10/03/22Te MemberRelationshipSpecialtyStart DateEnd Date Raquel Nolan MD [address] [place] [address] [facility] - [facility]09/14/22 Raquel Nolan MD [address] [place] [address] [facility] - [facility]10/03/22Te MemberRelationshipSpecialtyStart DateEnd Date Raquel Nolan MD [address] [place] [address] [facility]09/14/22 Raquel Nolan MD [address] [place] [address] PCP - [employer] MemberRelationshipSpecialtyStart DateEnd Date Raquel Nolan MD [address] [place] [address] [facility]CP - [facility]09/14/22 Raquel Nolan MD [address] [place] [address] PCP - [employer] MemberRelationshipSpecialtyStart DateEnd Date Raquel Nolan MD [address] [place] [address] PCP - [facility]09/14/22 Raquel Nolan MD [address] [place] [address] PCP - [employer]08/03/24Team MemberRelationshipSpecialtyStart DateEnd Date Raquel Nolan MD [address] [place] [address] [facility] Raquel Nolan MD [address] [place] [address] PCP - [employer]08/03/24Team MemberRelationshipSpecialtyStart DateEnd Date Raquel Nolan MD [address] [place] [address] PCP - [facility] Medicine09/14/22 Raquel Nolan MD [address] [place] [address] PCP - [employer]08/03/24Te MemberRelationshipSpecialtyStart DateEnd Date Raquel Nolan MD [address] [place] [address] [facility] Raquel Nolan MD [address] [place] [address] PCP - [employer]08/03/24Team MemberRelationshipSpecialtyStart DateEnd Date Raquel Nolan MD [address] [place] [address] PCP - [facility] Medicine09/14/22 Raquel Nolan MD [address] [place] [address] PCP - [employer]08/03/24Te MemberRelationshipSpecialtyStart DateEnd Raquel Nolan MD [address] [place] [address] PCP - [facility] Medicine09/14/22 Raquel Nolan MD [address] [place] [address] PCP - [employer]08/03/24Team MemberRelationshipSpecialtyStart DateEnd Date Raquel Nolan MD [address] [place] [address] PCP - [facility]09/14/22 Raqule Nolan MD [address] [place] [address] PCP - Dewayne Yun08/03/24 Source Comments (unrecognize d section and content) In the event this informatio n is protected by the Federal Confidentiality of Alcohol and Drug Abuse Patient Records regulations: The Federal rules restrict any use of the information to criminally investigate or prosecute any alcohol or drug abuse patient.[facility] Reason for Visit (unrecogniz ed section and [...] BE BASED ON THE PRIMARY CLINICAL RECORDS. [employer] provides no warranty or guarantee of the accuracy or completeness of information in this document.
[2025-02-19 11:32] LABS: Hematocrit 43.0 % (36.0-48.0); Hemoglobin 14.3 g/dL (12.0-16.0); Immature Granulocytes Abs Auto 0.01 10^3/uL (0.00-0.03); Immature Granulocytes Pct Auto 0.2 % (0.0-0.5); Lymphocytes Absolute Auto 2.7 10^3/uL (1.2-3.8); Mean Corpuscular HGB Conc 33.3 g/dL (29.9-35.2); Mean Corpuscular Hemoglobin 31.3 pg (26.7-34.0); Mean Corpuscular Volume 94.1 fL (81.0-99.0); Platelet Count 245 10^3/uL (150-450); Red Blood Count 4.57 10^6/uL (4.20-5.40); White Blood Count 6.5 10^3/uL (4.0-11.0)
[2025-02-19] MEDS: CEFAZOLIN SODIUM 2 GM/50 ML D5W PREMIX IV (14:34)
--- NOTE | 2025-02-19 15:26 | PM.ONB ---
Brief Operative Note Date of procedure: 02/19/25 Pre-op diagnosis general: dysparenia, menorrhagia, dysmenorrhea, pelvic pain Post-op diagnosis: same as pre-op Procedure: NAME OF PROCEDURE: ? Robotic assisted laparoscopic hysterectomy with cystoscopy please note left ureteral orifice appeared slight stenotic however excellent efflux was noted PROCEDURE:? The patient was taken back to the operating room, where she was prepped and draped in the normal sterile fashion after being placed in the dorsal lithotomy position.? Patient?s anesthesia was found to be adequate.? Surgical timeout was performed using two patient identifiers.? SCDs were on and in place.? Two grams of Ancef were given prior to the surgery.? Sterile Allison catheter was inserted.? Standard size VCare was secured to the uterine cervix and the surgeon changed gloves.? Attention then was turned to the patient's abdomen, where a supraumbilical incision was then made.? Two S retractors were used to identify the patient?s fascia.? The fascia was then tented up using Gabby clamps and the patient?s fascia was incised sharply.? Patient?s abdomen was identified and entered bluntly.? The patient had the trocar placed and a pneumoperitoneum was obtained.? Approximately 4 liters of CO2 gas was used.? The camera was then placed through the trocar.? At this time, two robot trocars were placed in the patient?s left and right side, two hand widths from the midline, and this was placed under direct visualization.? Please note absent tubes were seen. The uterine ovarian ligament was identified and transected and ligated using the vessel sealer? The vessel sealer was carried down serially to the broad ligament, to the area of the bladder flap, which was then created anteriorly, and the uterine arteries were skeletonized and sealed using the vessel sealer.? The colpotomy was made using the monopolar cautery on cut, and this was carried circumferentially, posteriorly to anteriorly, until the uterus was amputated.? The specimen was then removed intact through the vagina, without difficulty.? The vagina was then closed using two running V-Loc in a non-lock fashion.? The robot was undocked.? The abdomen was desufflated.? The skin defects were closed using 4-0 Vicryl.? Please note, the fascia was closed using 0 Vicryl.? Sponge, lap and needle counts were correct x2.? Patient was taken to recovery room in stable condition.? The patient was awakened by Anesthesia first.? Patient tolerated procedure well.?? Anesthesia: MICHELLE Surgeon: Shaan Witt In Home Caregiver: Jessie Meadows Estimated blood loss (mL): 100 Pathology: other (uterus and cervix) Condition: stable Disposition: PACU Urinary Catheter Management Urinary Catheter Management Urethral: Cath placed during this visit: no
[2025-02-19] MEDS: HYDROMORPHONE HCL 0.5 MG/0.5 ML SYRINGE IV (17:15)
--- NOTE | 2025-02-19 17:48 | PC.NURSE ---
patient had small emesis. emend is ordered to administer waiting on pharmacy to bring
--- NOTE | 2025-02-19 18:12 | PC.NURSE ---
patient complaining of nausea emend currently running
--- OUTSIDE RECORDS SUMMARY | 2025-02-19 18:33 | XMS_ITS | CCD ---
Author Organization [facility] CliniSyoh Care Team Providers Care Mental Health Orderly Name Role Phone GIGI MITCH ALLISON Unavailable UnaCHANDANA Dey Unavailable Unavailable NO PRIMARY CARE, Unavailable Unavailable Lilliam Gonzalez Primary Care Physician [phone] Fernanda MUNROE Unavailable Raquel Nolan Primary Care [...] Unavailable MIRYAM ., DR TITUS Admitting Unavailable AVISTON, DR BAO Painter Consulting Unavailable ALMA NOLAN [...] Primary Care Provider Raquel Nolan MD Unavailable [phone] RAQUEL NOLAN Attending Unavailable RAQUEL NOLAN Attending Unavailable CHERISE JAIMES Attending Unavailab NIA Merritt Attending Unavailable SHAAN WITT Attending Unavailable RAQUEL NOLAN Attending Unavailable Medications Current Medications MedicationDrug Class(es)DatesSig (Normalized)Sig (Original)acetaminophen 325 mg / HYDROcodone bitartrate 5 mg oral tablet (2 sources)Opioid AgonistStart: 44-60-3092Kobcc 325 mg-5 mg oral tablet 1 tab(s), Oral, q6hr for pain, 10 tab(s), Refill(s) 0 Start Date: 09/18/21 Status: [id number] 200 actuat albuterol 0.09 mg/actuat metered dose inhaler (10 sources)beta2-Adrenergic AgonistStart: 04-27-2023 End: 81-39-0487vtai 2 puff(s) by inhalation every four hours for wheezing albuterol HFA 90 mcg/act inhaler Indications: Acute cough Inhale 2 puffs every 4 (four) hours if needed for wheezing or shortness of breath 18 g 04/27/2023 03/22/2024 Discontinued (Therapy completed)cephalexin 500 mg oral capsule (4 sources)Cephalosporin AntibacterialStart: 66-03-8495fimx 1 capsule by mouth every twelve hoursKeflex 500 mg Cap 500 mg = 1 cap(s), Oral, q12hr, # 14 cap(s), Refills(s) 0, Pharmacy: [facility], 175, cm, 06/16/20 13:40:00 EDT, Height/Length Dosing, 70.8, kg, 06/16/20 13:40:00 EDT, Weight Dosing Start Date: 06/16/20 Status: Ordereddextromethorphan hydrobromide 3 mg/ml / promethazine hydrochloride 1.25 mg/ml oral solution (1 source)Phenothiazine, Uncompetitive C-lxxdyf-L-aspartate Receptor Antagonist, Sigma-1 AgonistStart: 03-20-2024 End: 73-74-8249sjoc 5 mL by mouth every six hours for coughdextromethorphan- promethazine 15 mg-6.25 mg/5 mL Oral Syrup 5 mL 5 mL, Oral, q6hr for cough for 5 day(s), 200 mL, Refill(s) 0, [facility], 175.6, cm, 03/20/24 7:23:00 EST, Height/Length Dosing, 80, kg, 03/20/24 7:23:00 EST, Weight Dosing Start Date: 03/20/24 Stop Date: 03/25/24 Status: Ordereddicyclomine hydrochloride 10 mg oral capsule (2 sources)AnticholinergicStart: 42-32-6070yksj 1 capsule by mouth four times daily as needed for nauseaBentyl 10 mg Cap 10 mg = 1 cap(s), Oral, QID, PRN Nausea/Vomiting, For abdominal cramping, # 16 cap(s), Refills(s) 0, Pharmacy: [facility], 177, cm, 04/15/24 21:15:00 EST, Height/Length Dosing, 83.8, kg, 04/15/24 21:15:00 EST, Weight Dosing Start Date: 04/16/24 Status: OrderedStart: 09-18-2021 End: 19-88-1118qugx 1 capsule by mouth four times dailyBentyl 10 mg Cap 10 mg = 1 cap(s), Oral, QID, X 7 day(s), # 14 cap(s), Refills(s) 0 Start Date: 09/18/21 Stop Date: 09/25/21 Status: Orderedfamotidine 40 mg oral tablet (15 sources)Histamine-2 Receptor AntagonistStart: 06-15-2024 End: 29-45-4604kxwk 1 tablet by mouth at bedtimefamotidine (Pepcid) 40 MG tablet Indications: Gastroesophageal reflux disease, unspecified whether esophagitis present Take 1 tablet (40 mg) by mouth at bedtime 90 tablet 3 06/15/2024 06/15/2025 Activeibuprofen 200 mg oral tablet (10 sources)Nonsteroidal Anti-inflammatory Drug End: 79-55-0219cqkzzgpon 200 MG tablet Take by mouth. 03/22/2024 Discontinued (Therapy completed)levonorgestrel 0.842009 mg/hr intrauterine system (4 sources)Progestin, Progestin-containing Intrauterine DeviceStart: 08-29-2019 Liletta 52 mg IUD Refills(s) 0 Start Date: 08/29/19 Status: OrderedStart: 85-45-4014Zwywjly 52 mg IUD Refills(s) 0 Start Date: 08/29/19 Status: Ordered methocarbamol 500 mg oral tablet (1 source)Muscle RelaxantStart: 06-29-2023 End: 63-43-0260iano 1 tablet by mouth three times dailyRobaxin 500 mg Tab 500 mg = 1 tab(s), Oral, TID, X 3 day(s), # 9 tab(s), Refills(s) 0, Pharmacy: [facility], 175, cm, 06/29/23 19:28:00 EDT, Height/Length Dosing, 82, kg, 06/29/23 19:28:00EDT, Weight Dosing Start Date: 06/29/23 Stop Date: 07/02/23 Status: Orderednaproxen 500 mg oral tablet (2 sources)Nonsteroidal Anti-inflammatory DrugStart: 67-41-5552tzzk 1 tablet by mouth twice daily as needed for painNaprosyn 500 mg Tab 500 mg = 1 tab(s), Oral, BID, PRN for pain, # 20 tab(s), Refills(s) 0, Pharmacy: [facility], 175, cm, 06/29/23 19:28:00 EDT, Height/Length Dosing, 82, kg, 06/29/23 19:28:00 EDT, Weight Dosing Start Date: 06/29/23 Status: Orderedoseltamivir 75 mg oral capsule (2 sources)Neuraminidase InhibitorStart: 04-12-2024 End: 48-07-8481elfj 1 capsule by mouth twice dailyTamiflu 75 mg Cap 75 mg = 1 cap(s), Oral, BID, X 5 day(s), # 10 cap(s), Refills(s) 0, Pharmacy: [facility] 1986, 175.6, cm, 04/12/24 13:49:00 EST, Height/Length Dosing, 83.8, kg, 04/12/24 13:49:00 EST, Weight Dosing Start Date: 04/12/24 Stop Date: 04/17/24 Status: Orderedpantoprazole 40 mg delayed release oral tablet (15 sources)Proton Pump InhibitorStart: 06-15-2024 End: 85-05-4528mhhm 1 tablet by mouth once dailypantoprazole (ProtoNix) 40 MG EC tablet Indications: Gastroesophageal reflux disease, unspecified whether esophagitis present Take 1 tablet (40 mg) by mouth Daily Do not crush, chew, or split. 90 tablet 3 06/15/2024 06/15/2025 Activephenazopyridine hydrochloride 100 mg oral tablet (3 sources)Start: 12-18-2024 End: 33-97-6145ledo 1 tablet by mouth three times daily as needed for muscle spasmsphenazopyridine (Pyridium) 100 MG tablet Indications: UTI symptoms Take 1 tablet (100 mg) by mouth 3 (three) times a day as needed for bladder spasms for up to 3 days 10 tablet 12/18/2024 12/21/2024 ActivepredniSONE 20 mg oral tablet (2 sources)Start: 03-22-2024 End: 16-43-7113lhlu 2 tablets by mouth once dailypredniSONE (Deltasone) 20 MG tablet Indications: Acute cough Take 2 tablets (40 mg) by mouth Daily for 5 days 10 tablet 03/22/2024 03/27/2024 ActiveZofran ODT 4 mg Tab-Dis (6 sources)Start: 46-51-4676jwjn 1 tablet by mouth every eight hours as needed for nauseaZofran ODT 4 mg Tab-Dis 4 mg = 1 tab(s), Oral, q8hr, PRN Nausea/Vomiting, # 12 tab(s), Refills(s) 0, Pharmacy: [facility], 177, cm, 04/15/24 21:15:00 EST, Height/Length Dosing, 83.8, kg, 04/15/24 21:15:00 EST, Weight Dosing Start Date: 04/16/24 Status: OrderedStart: 06-29-2023 take 1 tablet by mouth every eight hoursZofran ODT 4 mg Tab-Dis 4 mg = 1 tab(s), Oral, q8hr, # 12 tab(s), Refills(s) 0, Pharmacy: [facility], 175, cm, 06/29/23 19:28:00 EDT, Height/Length Dosing, 82, kg, 06/29/23 19:28:00 EDT, We ight Dosing Start Date: 06/29/23 Status: OrderedStart: 78-91-8202takc 1 tablet by mouth every eight hours as needed for nauseaZofran ODT 4 mg Tab-Dis 4 mg = 1 tab(s), Oral, q8hr, PRN Nausea/Vomiting, # 20 tab(s), Refills(s) 0, Pharmacy: [facility], 175.3, cm, 02/16/23 5:18:00 [...] oral tablet (7 sources)Penicillin-class AntibacterialStart: 03-20-2024 End: 96-98-0572ptmd 1 tablet by mouth in the morningamoxicillin-clavulanate (Augmentin) 875-125 MG tablet Take 875 mg by mouth in the morning and 875 mg before bedtime. 03/20/2024 06/15/2024 DiscontinuedStart: 09-18-2021 End: 71-16-5008Vvusbmhkd 875 mg-125 mg Tab 1 tab(s), Oral, q12hr for 10 day(s), 20 tab(s), Refill(s) 0 Start Date:09/18/21 Stop Date: 09/28/21 Status: Ordered azithromycin 250 mg oral tablet (5 sources)Macrolide AntimicrobialStart: 03-22-2024 End: 54-16-6965xmxspqpyzpzt (Zithromax) 250 MG tablet Indications: Acute cough Take 2 tabs PO x 1 day then 1 tab PO daily x 4 days 6 tablet 03/22/2024 06/15/2024 DiscontinuedmetFORMIN hydrochloride 500 mg oral tablet (12 sources)BiguanideStart: 12-13-2023 End: 56-59-2651zufv 1 tablet by mouth at bedtimemetFORMIN (Glucophage) 500 MG tablet Indications: PCOS (polycystic ovarian syndrome) Take 1 tablet (500 mg) by mouth at bedtime 30 tablet 11 12/13/2023 06/15/2024 Discontinuedondansetron 4 mg oral tablet (20 sources)Serotonin-3 Receptor AntagonistStart: 12-06-2024 End: 89-06-8101riby 1 tablet by mouth every eight hours as needed for nausea and vomiting and nausea and nauseaondansetron (Zofran) 4 MG tablet Indications: Nausea Take 1 tablet (4 mg) by mouth every 8 (eight) hours if needed for nausea or vomiting 12 tablet 12/06/2024 01/24/2025 DiscontinuedStart: 07-26-2024 End: 43-84-5276drsw 2 tablets by mouth every eight hours as needed for nausea and vomiting and nausea and nauseaondansetron (Zofran) 4 MG tablet Indications: Nausea Take 2 tablets (8 mg) by mouth every 8 (eight)hours if needed for nausea or vomiting 20 tablet 09/26/2024 12/06/2024 Discontinued (Reorder)Start: 04-12-2024 End: 45-21-6719pqcq 1 tablet by mouth every eight hoursondansetron 4 mg Dis Tab 4 mg = 1 tab(s), Oral, q8hr, allow tablet to dissolve on tongue, X 2 day(s), # 6 tab(s), Refills(s) 0, Pharmacy: [facility], 175.6, cm, 04/12/24 13:49:00 EST, Height/Length Dosing, 83.8, kg, 04/12/24 13:49:00 EST, Weight Dosing Start Date: 04/12/24 Stop Date: 04/14/24 Status: OrderedStart: 12-13-2023 End: 89-54-3833gfox 1 tablet by mouth every six hours as needed for nausea and vomiting and nausea and nauseaondansetron ODT (Zofran-ODT) 4 MG disintegrating tablet Indications: Nausea Take 1 tablet (4 mg) bymouth every 6 (six) hours if needed for nausea or vomiting 30 tablet 2 12/13/2023 01/12/2024 ActiveStart: 09-21-2023 End: 62-78-7888ccdx 2 tablets by mouth every eight hours as needed for nausea and vomiting and nausea and nauseaondansetron (Zofran) 4 MG tablet Indications: Nausea Take 2 tablets (8 mg) by mouth every 8 (eight)hours if needed for nausea or vomiting 20 tablet 03/22/2024 ActiveStart: 05-33-3893bllf 1 tablet by mouth every eight hours as needed for nauseaZofran 4 mg Tab 4 mg = 1 tab(s), Oral, q8hr, PRN Nausea/Vomiting, # 12 tab(s), Refills(s) 0 Start Date: 09/18/21 Status: OrderedComment on above:Take 4 mg by mouth every 8 hours as needed for nausea/vomiting.polyethylene glycol 3350 54065 mg powder for oral solution (2 sources)Osmotic LaxativeStart: 74-76-4320rvgrkmoayosc glycol 3350 (MIRALAX) 17 gram/dose powder Take [...] sources)Leukocytosis; Translations: [Elevated white blood cell count, unspecified]18-67-0732QhrqgivPbrdoekxaqdtx (1 source)Endometriosis; Translations: [ENDOMETRIOSIS RT OVARY UNSPEC DEPTH] Onset: 21-76-7546Xtxckuxlwk disorders (4 sources)Gastroesophageal reflux disease; Translations: [Gastro-esophageal reflux disease without esophagitis]68-95-8444FaeidtePpwqpfwlizluf symptoms and ill-defined conditions (2 sources)Urinary symptoms ; Translations: [Unspecified symptoms and signs involving the genitourinary system]52-34-6263NbzlgfkiKldtjolm; including migraine (4 sources)Headache; Translations: [Headache, unspecified]Onset: 06-29-2023 EpisodicImmunizations and screening for infectious disease (2 sources)Exposure to sexually transmissible disorder; Translations: [Contact with and (suspected) exposure to infections with a predominantly sexual mode of transmission]16-49-1561YqsftuihFoquqvkef (1 source)Influenza; Translations: [Influenza due to other identified influenza virus with other respiratory manifestations]Onset: 94-74-5666VmmfbhybYkjtgmseu disorders (6 sources)Irregular menstruation, unspecified; Translations: [Menometrorrhagia] Onset: 55-35-4389PaaffujDtkz disorders (20 sources)Depressive disorder; Translations: [Depression]Onset: 09-14-2022 27-18-1362HtvjvrrCvpee ear and sense organ disorders (2 sources)Ear sensations - finding; Translations: [Other specified disorders of ear, bilateral]73-03-9822FytvtyonIpxjq endocrine disorders (2 sources)Polycystic ovary syndrome; Translations: [Polycystic ovarian syndrome]05-13-8480CbwmmjdPxnvq female genital disorders (2 sources)Abnormal uterine bleeding; Translations: [Abnormal uterine and vaginal bleeding, unspecified]Onset: 09-72-6378FfhzozqCdrwm female genital disorders (1 source)Pain in female genitalia on intercourse; Translations: [Unspecified dyspareunia]92-36-5344JnryknhHhkui female genital disorders (1 source)Other specified noninflammatory disorders of vagina; Translations: [OTH SPEC NONINFLAMMATORY D/O VAGINA]Onset: 65-25-3161TbebjwokJvlyj female genital disorders (2 sources)Vaginal discharge; Translations: [Other specified noninflammatory disorders of vagina]73-22-2483IafaykggUwgxc female genital disorders (1 source)Pain in female pelvis; Translations: [Pelvic pain in female]01-24-2025 EpisodicOther gastrointestinal disorders (2 sources)Diarrhea; Translations: [Diarrhea, unspecified]Onset: 11-17-2021 EpisodicOther gastrointestinal disorders (2 sources)Acute diarrhea; Translations: [Diarrhea, unspecified]12-06-2024 EpisodicOther lower respiratory disease (1 source)Cough; Translations: [Cough, unspecified]Onset: 16-61-6623Zhhvjgwh Other lower respiratory disease (2 sources)Cough; Translations: [Acute cough]31-40-7703MtvqtwjrTouaq nervous system disorders (2 sources)Pins and needles; Translations: [Paresthesia of skin]09-26-2024 EpisodicOther nutritional; endocrine; and metabolic disorders (7 sources)Overweight in adulthood with body mass index of 25 or more but less than 30; Translations: [Body mass index (BMI) 27.0-27.9, adult]Onset: 04-12-2024 83-94-9742IfvyerjmClzbj nutritional; endocrine; and metabolic disorders (6 sources)Overweight; Translations: [Overweight]49-68-8409LimmpxpiZekjf and delivery including normal (11 sources)Normal xixgocsqo24-40-3563UdyxybaeRapdc upper respiratory disease (3 sources)Nasal congestion; Translations: [Nasal congestion]Onset: 04-12-2024 13-51-5304AqujxkfiXkpnvoi cyst (2 sources)Cyst of ovary; Translations: [Unspecified ovarian cyst, unspecified side]Onset: 56-92-0300ThcmdulhEjqqxcls codes; unclassified (1 source)Chill; Translations: [Chills (without fever)]Onset: 18-91-0286Azwjktks Substance-related disorders (20 sources)Smoker; Translations: [Nicotine dependence, cigarettes, uncomplicated]Onset: 06-11-2022 Resolved: 082637-69-7220WwkxwbsHuxfmdz on above:Added secondary to documentation in Social History.Added secondary to documentation in Social History.Syncope (1 source)Syncope and collapse; Translations: [Syncope and collapse]Onset: 40-17-6300Kbvtrobg Past or Other Problems Problem ClassificationProblemDateDocumented DateEpisodic/ChronicAbdominal pain (20 sources)Abdominal pain; Translations: [Unspecified abdominal pain]Onset: 41-32-1749QdrbcrucIransklgtwin of device; implant or graft (20 sources)Mechanical complication of intrauterine contraceptive device; Translations: [Other mechanical complication of intrauterine contraceptive device, initial encounter]Onset: 751832-77-9252GwzkmiahPnilrylyutfzq and procreative management (20 sources)Encounter for sterilization; Translations: [Sterilization requested] Onset: 06-24-2022 Resolved: 71-08-8606PqebpnchAxtnae and vomiting (20 sources)Vomiting; Translations: [Vomiting, unspecified]Onset: 11-17-2021 EpisodicNoninfectious gastroenteritis (20 sources)Noninfectious enteritis; Translations: [Noninfective gastroenteritis and colitis, unspecified]Onset: 09-54-3989KuykbqzsGbdmk female genital disorders (20 sources)Cervical intraepithelial neoplasia grade 2; Translations: [Moderate cervical dysplasia]Onset: 951415-06-5505AneynvkhPsayz female genital disorders (20 sources)Vaginal odor; Translations: [Other specified noninflammatory disorders of vagina]Onset: 346697-45-8332XpcsoikrFmzji female genital disorders (3 sources)Pelvic and perineal pain; Translations: [Pelvic and perineal pain] Onset: 197501-81-4573EkaxszgmMeymz gastrointestinal disorders (20 sources)Constipation; Translations: [Constipation, unspecified]Onset: 85-72-3497AebajxjmGgbvq upper respiratory infections (20 sources)Pharyngitis; Translations: [Acute pharyngitis, unspecified]Onset: 862926-85-5608VhrbsebrKapbeb media and related conditions (20 sources)Acute suppurative otitis media without spontaneous rupture of ear drum; Translations: [Acute suppurative otitis media without spontaneous rupture of ear drum, left ear]Onset: 301476-92-2291IunepbtsJguznqae codes; unclassified (20 sources)History of endometrial ablation; Translations: [Other specified postprocedural states]Onset: 884099-20-3104VaeipbdwZxvowvogngwb (20 sources)PregnancyOnset: 09-11-2017 Resolved: Results Test NameValueInterpretationReference RangeFacilityALL CBC WITH AUTO DIFFon 42-61-7320UYSUBIWWB ABSOLUTE AUTO0.0NOMS HealthcareBasophils/100 WBC (Bld)0.4 % 0.2 - 2.0 %[facility] HospitalEosinophils/100 WBC (Bld)0.7 %Low0.9 - 7.0 %[facility] HospitalErythrocyte distribution width (RBC) [Ratio]12.7 %11.0 - 15.0 %NOMSaint John'S Aurora Community HospitalHematocrit (Bld) [Volume fraction]43.1 %36.0 - 48.0 %[facility] Hemoglobin (Bld) [Mass/Vol]14.3 g/dL12.0 - 16.0 g/dLNorth [facility] City HospitalIMMATURE GRANULOCYTES ABS AUTO0.03[facility]S [facility] HospitalImmature granulocytes/100 WBC (Bld)0.3 % 0.0 - 0.5 %[facility] HospitalInterpretation and review of laboratory results AbnormalNOChristian HospitalLYMPHOCYTES ABSOLUTE AUTO3.8[facility] Lymphocytes/100 WBC (Bld)38.3 %20.5 - 60.0 %[facility] HealthcareH (RBC) [Entitic mass]31.4 pg26.7 - 34.0 pgNorth Kansas City HospitalMCHC (RBC) [Mass/Vol]33.2 g/dL29.9 - 35.2 g/dLNorth Kansas City HospitalMCV (RBC) [Entitic vol]94.7 fL81.0 - 99.0 fLNorth Kansas City HospitalMONOCYTES ABSOLUTE AUTO0.6NOMS HealthcareMonocytes/100 WBC (Bld)5.9 % 1.7 - 12.0 %[facility] HospitalNEUTROPHILS ABSOLUTE AUTO5.5[facility] Neutrophils/100 WBC (Bld)54.4 %43.0 - 75.0 %[facility] HospitalPlatelet mean volume (Bld) [Entitic vol]10.4 fL9.5 - 13.5 fLNorth Kansas City HospitalTBH EO #0.1[facility] TBH [id number] [facility] RBC4.55[facility] Francis HospitalTB WBC10.0[facility] CLINISYNCNorth [facility] City HospitalXR CHEST 2Von 80-76-6547[address] [address] XRay Report Signed Patient: SOCORRO JOSEPH MR#: [id number] : 2000 Acct:[id number] Age/Sex: 24 / F ADM Date: 02/02/25 Loc: PST Attending Dr: Shaan Witt D.O. Ordering Physician: Shaan Witt D.O. Date of Service: 02/02/25 Procedure(s): XR chest 2V Accession Number(s): [id number] cc: Shaan Witt D.O.; Physician,Non-Staff Na[place] [id number] Patient Name: SOCORRO JOSEPH MRN: [facility]:[id number] date: 2000 Sex: F [facility] Accession/Order Number: [id number] Exam Date: 02/02/2025 13:15 Report Date: 02/02/2025 15:26 At the request of: SHAAN WITT DO Procedure: XR chest 2V Chest 2 views CLINICAL HISTORY: Preop exam COMPARISON: Chest 06/10/2022 FINDINGS: Heart normal in size. Lungs are clear. No free air. XR/XR chest 2V IMPRESSION: NO ACUTE CARDIOPULMONARY ABNORMALITY. Impression dictated by: Dmitriy Mason Jr., D.O. 02/02/2025 3:26 PM Dictation Location: [place] [address] Electronically authenticated by: [id number] Y Date: 02/02/2025 15:26 Dictated By: Dmitriy Mason M.D. Signed By: 02/02/25 1528 DD/ 1526 TD/TT: Neonatal Doctor:DARRELLadiologzach, Radiologist, MD - 02/02/[address] [address] XRay Report Signed Patient: SOCORRO JOSEPH MR#: [id number] : 2000 Acct:[id number] Age/Sex: 24 / F ADM Date: 02/02/25 Loc: PST Attending Dr: Shaan Witt D.O. Ordering Physician: Shaan Witt D.O. Date of Service: 02/02/25 Procedure(s): XR chest 2V Accession Number(s): [id number] cc: Shaan Witt D.O.; Physician,Non-Staff Naren [place] [id number] Patient Name: SOCORRO JOSEPH MRN: [facility]:[id number] date: 2000 Sex: F [facility] Current Patient Location: [facility] Accession/Order Number: [id number] Exam Date: 02/02/2025 13:15 Report Date: 02/02/2025 15:26 At the request of: SHAAN WITT DO Procedure: XR chest 2V Chest 2 views CLINICAL HISTORY: Preop exam COMPARISON: Chest 06/10/2022 FINDINGS: Heart normal in size. Lungs are clear. No free air. XR/XR chest 2V IMPRESSION: NO ACUTE CARDIOPULMONARY ABNORMALITY. Impression dictated by: Dmitryi Mason Jr., D.O. 02/02/2025 3:26 PM Dictation Location: [place] [address] Electronically authenticated by: [id number] Y Date: 02/02/2025 15:26 Dictated By: Dmitriy Mason M.D. Signed By: 02/02/25 1528 DD/ 25 TD/TT: Neonatal Doctor: SOCO HealthcareRadiology Study observation (narrative)[facility] HealthcareXR CHEST 2V Ordered By: Radiologist Radiology on 15-90-4354VPDTNorth Kansas City Hospital Work Phone: US PELVIC COMPLETE W/ TVon 53-21-6280LB PELVIC COMPLETE W/ TVFINDINGS: Uterus 8.7 x [...] last menstrual period was 12/09/2024.IGP,APTIMA HPV,AGE GDLNon 03-01-9891XOQ LN ACOG TESTINGNote.[facility] HealthcareComment on above:TESTS RESULT FLAG UNITS REF RANGE LAB Clinician Provided Cytology Information Source.............Cervix;Endocervix No. of containers..01 ThinPrep Vial Age Anuradhao OTTONIEL Rebecca... FLAG LEGEND: L-Low Normal,H-High Normal,LL-Alert Low,HH-Alert High <-Panic Low,>-Panic High,A-Abnormal,AA-Critical Abnormal Performed at: 01 =[facility] [address] Rosalia Harp MD, IGP, RFX APTIMA HPV ASCUNote.[facility] HealthcareComment on above:TESTS RESULT FLAG UNITS REF RANGE LAB DIAGNOSIS: 02 NEGATIVE FOR INTRAEPITHELIAL LESION OR MALIGNANCY. Specimen adequacy: 02 Satisfactory for evaluation. Endocervical and/or squamous metaplastic cells (endocervical component) are present. Performed by: 02 Gildardo Chan Director Targeted Marketing ([facility]) . 02 Note: Note 02 The [...] Low,>-Panic High,A-Abnormal,AA-Critical Abnormal Performed at: [address] [facility] [address] [address] Rosalia Harp MD, Performed at: =G - [facility] [address] [id number] Lead Mechanic: Rosalia Harp MD, Phone: [phone] Performed at: - [facility] [id number] Lead Mechanic: Rosalia Harp MD, Phone: [phone] BRUSH-SPATULA CERVIX ENDOCERVIX CLINISYNCNOMS HealthcareRECURRENT VAGINITIS (HTRX)on 10-24-5985IMGBLNBAE VAGINAE 0NOMS HealthcareATOPOBIUM VAGINAENot detectedNOMS HealthcareBVAB 2,3 (BACTERIAL VAGINOSIS ASSOCIATED BACTERIA 2, 3); MOBILUNCUS SEU2WVZN HealthcareBVAB 2,3 (BACTERIAL VAGINOSIS ASSOCIATED BACTERIA 2, 3); MOBILUNCUS SPPNot detectedNOMS HealthcareCANDIDA ALBICANS, PARAPSILOSIS, JNIBFPDOSG5PINO HealthcareCANDIDA ALBICANS, PARAPSILOSIS, TROPICALISNot detectedNOMS HealthcareCANDIDA GLABRATA0 NOMS HealthcareCANDIDA GLABRATANot detectedNOMS HealthcareCANDIDA UFHHEC1YZNK HealthcareCANDIDA KRUSEINot detectedNOMS HealthcareCHLAMYDIA [id number] HealthcareCHLAMYDIA TRACHOMATISNot detectedNOMS HealthcareGARDNERELLA VAGINALIS0 NOMS HealthcareGARDNERELLA VAGINALISNot detectedNOMS HealthcareMEGASPHAERA (TYPES 1, 2)0NOMS HealthcareMEGASPHAERA (TYPES 1, 2)Not detectedNOMS Healthcare MYCOPLASMA [id number] HealthcareMYCOPLASMA GENITALIUMNot detectedNOMS HealthcareNEISSERIA JQUWTOIPEQI9VAYF HealthcareNEISSERIA GONORRHOEAENot detected NOMS HealthcareTRICHOMONAS [id number] HealthcareTRICHOMONAS VAGINALISNot detectedNOMS HealthcareNOMS HealthcareUrinalysis macro (dipstick) panel (U)on 99-07-5184Oodkkkodl, UANegativeNegative - 4(70) +++ mg/dLNOMS HealthcareBlood, UANegativeNegative - 50 Silas/mcLNOMS HealthcareClarity, UAClearNOMS Healthcare Color, UAYellowNOMS HealthcareGlucose, UANegativeNegative - 2000(110) ++++ mg/dL N[facility]S HealthcareInterpretation and review of laboratory resultsNormalNOMS HealthcareKetones, UANegativeNegative - 160(16) ++++ mg/dLNOMI Healthcare Leukocytes, UANegativeNegative - 500+++ Estephania/mcLNOMS HealthcareNitrite, UA NegativeNegative - PositiveNOMS HealthcarepH, UA65 - 9NOMS HealthcareProtein, UA NegativeNegative - 2000(20) ++++ mg/dLNOMS HealthcareSpec Grav, UA1.011 - 1.03 NOMS HealthcareUrobilinogen, UA1.00.2 - 12 mg/dLNOMS HealthcareNOMS HealthcareED Note-Physicianon 91-85-3483ZM Note-PhysicianED Note-Physician Basic Information Time Seen: NenoHeri [...] TID, # 15 tab(s), Refills(s) 0, Pharmacy: [facility] 1985, 177, cm, 06/11/24 9:05:00 [...] days 06/14/[address] [place] [address]- Business (1) Additional Instructions: Patient Education Viral [...] made to ensure accuracy, however, inadvertently computerized control officer mistakes may be present. Appropriate healthcare PPE [...] No. Family/Friends availablefor suppo (more content not included)...[facility] HospitalComment on above:Result Comment: Electronically Signed By: Heri Lazcano PA-C\.br\Date and Time Signed: 06/11/2510:45 EDT\.br\Electronically Co-Signed By: Elver Gonzales MD\.br\Date and Time Co-Signed: 06/18/24 00:53 EDTCBC (INCLUDES DIFF/PLT)on 48-27-5266Uydbmeocr (Bld) [#/Vol]0.043 10*3/uLNormal0-200[facility] Comment on above:Performed By: #### [id number] #### [facility] [place] [address], [address] [place], [place] [id number] [employer]umber Press Operator: Nima Dong MDBasophils/100 WBC (Bld)0.5 %NormalQuest DiagnosticsComment on above:Performed By: #### [id number] #### [facility] [place] [address] [address] , [address] [place] [phone] Lumber Press Operator: Nima Dong MDEosinophils (Bld) [#/Vol]0.068 10*3/uLNormal 15-500Quest DiagnosticsComment on above:Performed By: #### [id number] #### [facility] [place] [address], [address] [place], [place] [phone] Lumber Press Operator: Nima Merati MDEosinophils/100 WBC (Bld)0.8 %NormalQuest DiagnosticsComment on above:Performed By: #### [id number] #### [facility] of [place] [address] [employer] Operator: Nima Dong MDErythrocyte distribution width (RBC) [Ratio] 12.1 %Ewzxzc21.0-15.0[facility] DiagnosticsComment on above:Performed By: #### [id number] #### [facility] [place] [address] [employer] Operator: Nima Dong MDHematocrit (Bld) [Volume fraction]41.2 %Normal 35.0-45.0[facility] DiagnosticsComment on above:Performed By: #### [id number] #### [facility] [place] [address] [employer] Operator: Nima Dong MDHemoglobin (Bld) [Mass/Vol]13.9 g/dLNormal 11.7-15.5Quest DiagnosticsComment on above:Performed By: #### [id number] #### [facility] [place] [address] [employer] Operator: Nima Dong MDLymphocytes (Bld) [#/Vol]2.788 10*3/uLNormal 850-3900Quest DiagnosticsComment on above:Performed By: #### [id number] #### [facility] [place] [address] [employer] Operator: Nima Dong MDLymphocytes/100 WBC (Bld)32.8 %NormalQuest DiagnosticsComment on above:Performed By: #### [id number] #### [facility] [place] [address] [employer] Operator: Nima Dong MDMCH (RBC) [Entitic mass]31.5 aaGsblzk01.0-33.0 [facility]osticsComment on above:Performed By: #### [id number] #### [facility] of [address], [address] [place] [address] Lumber Press Operator: Nima SPARKSCHC (RBC) [Mass/Vol]33.7 g/bFMzlakm70.0-36.0 [facility]osticsComment on above:Result Comment: For adults, a slight decrease in the calculated MCHC value (in the range of 30 to 32 g/dL) is most likely not clinically significant; however, it should be interpreted with caution in correlation with other red cell parameters and the patient's clinical condition.Performed By: #### [id number] #### [facility] of [address], [address] [place] [address] Lumber Press Operator: Nima Dong MDMCV (RBC) [Entitic vol]93.4 mEWpmikm06.0-100.0 [facility]osticsComment on above:Performed By: #### [id number] #### [facility] of [address], [address] [place] [address] Lumber Press Operator: Nima Dong MDMonocytes (Bld) [#/Vol]0.502 10*3/uLNormal 200-950Quest DiagnosticsComment on above:Performed By: #### [id number] #### [facility] of [address], [address] [place] [address] Lumber Press Operator: Nima Dong MDMonocytes/100 WBC (Bld)5.9 %NormalQuest DiagnosticsComment on above:Performed By: #### [id number] #### [facility] of [address], [address] [place] [address] Lumber Press Operator: Nima Dong MDNeutrophils (Bld) [#/Vol]5.1 10*3/uLNormal 1500-7800Quest DiagnosticsComment on above:Performed By: #### [id number] #### [facility] of [address], [address] [place] [address] Lumber Press Operator: Nima Dong MDNeutrophils/100 WBC (Bld)60 %NormalQuest DiagnosticsComment on above:Performed By: #### [id number] #### [facility] of [place] [address] [address] , [address] [place] [address] Lumber Press Operator: Nima Lemostedior mean volume (Bld) [Entitic vol]10.8 fLNormal7.5-12.5Quest DiagnosticsComment on above:Performed By: #### [id number] #### [facility] of [address], [address] [place] [address] Lumber Press Operator: Nima RAZAlatemary beth (Bld) [#/Vol]280 10*3/uLNormal 140-400Quest DiagnosticsComment on above:Performed By: #### [id number] #### [facility] of [address], [address] [place] [address] Lumber Press Operator: Nima Dong MDRBC (Bld) [#/Vol]4.41 10*6/uLNormal3.80-5.10 [facility]osticsComment on above:Performed By: #### [id number] #### [facility] of [address], [address] [place] [address] Lumber Press Operator: Nima Dong MDROCHESTER REGIONAL HEALTH (Bld) [#/Vol]8.5 10*3/uLNormal3.8-10.8 [facility]osticsComment on above:Performed By: #### [id number] #### [facility] of [address], [address] [place] [address] Lumber Press Operator: Nima Pride 40-47-4898Wmnoo gap [Moles/Vol]12 mmol/L Normal6-16Fisher [facility] Center And HospitalComment on above:Performed By: #### [id number] #### [facility] [address], [place] [address]Lmeagso [Mass/Vol]10.0 mg/dLNormal8.9-11.1[facility] And HospitalComment on above:Performed By: #### [id number] #### [facility] [address], [place] [address]Xwmrrchb [Moles/Vol]105 mmol/LUlqfsi176-864YxxobkPremier Health Miami Valley Hospital NorthComment on above:Performed By: #### [id number] #### [facility] [address], [place] [address]EN0 [Moles/Vol]25 mmol/SFrxjgh39-12XbdrslPremier Health Miami Valley Hospital North Comment on above:Performed By: #### [id number] #### [facility] [address], [place] [address]Kbvcodywho [Mass/Vol]0.6 mg/dLNormal0.5-1.3FSt. Rita's HospitalComment on above:Performed By: #### [id number] #### [facility] [address], [place] [address]Xboafnv [Mass/Vol]117 mg/dCIivsjw14-453JlultzPremier Health Miami Valley Hospital NorthComment on above:Performed By: #### [id number] #### [facility] [address], [place] [address]Tzapniozj [Moles/Vol]4.2 mmol/LNormal3.5-5.3FSt. Rita's HospitalComment on above:Performed By: #### [id number] #### [facility] [address], [place] [address]Kkjmky [Moles/Vol]138 mmol/GGduxgh668-735ErdjbvPremier Health Miami Valley Hospital NorthComment on above:Performed By: #### [id number] #### [facility] [address], [place] [address]Isnk nitrogen [Mass/Vol]15 mg/dLNormal5-21Prem[facility] Hospital NorthComment on above:Performed By: #### [id number] #### [facility] [address], [place] [address]Ahto nitrogen/Creatinine [Mass ratio]25 No CjhzbXbfo03-54NkbrkpPremier Health Miami Valley Hospital NorthComment on above:Performed By: #### [id number] #### [facility] [address], [place] [address]DEU w/ Auto Diffon 21-82-6123Dwujtliuf/100 WBC (Bld)0.1 %Normal 0.0-2.0Prem[facility] Hospital NorthComment on above:Performed By: #### [id number] #### [facility] [address] [place] [address]Yqpodetsn/Leukocytes Auto (Bld) [Pure # fraction]0.0 E9/LNormal 0.0-0.2FSt. Rita's HospitalComment on above:Performed By: #### [id number] #### [facility] [address] [place] [address]Onfyjvhlnyu (Bld) [#/Vol]0.1 E9/LNormal0.0-0.5FSt. Rita's HospitalComment on above:Performed By: #### [id number] #### [facility] [address] [place] [address]Bwdcoiwuacr/100 WBC (Bld)0.4 %Normal0.0-8.0Prem[facility] Hospital NorthComment on above:Performed By: #### [id number] #### [facility] [address] [place] [address]Yiypobzeeei distribution width (RBC) [Ratio]13.5 %Normal 10.9-14.2FSt. Rita's HospitalComment on above:Performed By: #### [id number] #### [facility] [address] [place] [address]Rmsonufodz (Bld) [Volume fraction]44.1 %Vwcbxp66.0-46.0Prem[facility] Hospital NorthComment on above:Performed By: #### [id number] #### [facility] [address] [place] [address]Kcbuiqxpua (Bld) [Mass/Vol]15.1 g/lIOifiya66.0-16.0Prem[facility] Hospital NorthComment on above:Performed By: #### [id number] #### [facility] [address] [place] [address]Oolmtudrzpj (Bld) [#/Vol]1.1 E9/LNormal1.0-4.0Prem[facility] Hospital NorthComment on above:Performed By: #### [id number] #### [facility] [address] [place] [address]Qwmzswckafd/100 WBC (Bld)7.4 %Low14.0-50.0Prem[facility] Hospital NorthComment on above:Performed By: #### [id number] #### [facility] [address] [place] [address] 214[address]OXR (RBC) [Entitic mass]31.8 aeVpkxlc57.0-34.0[facility] Hospital NorthComment on above:Performed By: #### [id number] #### [facility] [address] [place] [address]EDQZ (RBC) [Mass/Vol]34.2 g/yGIjdbyv98.4-36.0[facility] Hospital NorthComment on above:Performed By: #### [id number] #### [facility] [address] [place] [address]AED (RBC) [Entitic vol]93.0 hDLymbwh25.0-100.0[facility] Hospital NorthComment on above:Performed By: #### [id number] #### [facility] [address] [place] [address]Omiyoigmt (Bld) [#/Vol]0.4 E9/LNormal0.2-1.0[facility] Hospital NorthComment on above:Performed By: #### [id number] #### [facility] [address] [place] [address]46[address]Zrgxqgexouo (Bld) [#/Vol]13.1 E9/LHigh2.0-7.5FSt. Rita's HospitalComment on above:Performed By: #### [id number] #### [facility] [address] [place] [address] 297[address]Zxouzsrppzv/100 WBC (Bld)89.6 %High36.0-75.0[facility] Hospital NorthComment on above:Performed By: #### [id number] #### [facility] [address] [place] [address]Eynipifn mean volume (Bld) [Entitic vol]8.6 fLNormal6.4-10.8 [facility] Hospital NorthComment on above:Performed By: #### [id number] #### [facility] [address] [place] [address]Jzhfccqsy (Bld) [#/Vol]269.0 E9/WXahagz905.0-500.0Prem[facility] Hospital NorthComment on above:Performed By: #### [id number] #### [facility] [address] [place] [address]KXD (Bld) [#/Vol]4.7 E12/LNormal4.3-5.9Prem[facility] Hospital NorthComment on above:Performed By: #### [id number] #### [facility] [address] [place] [address]JFF corrected for nucl RBC Auto (Bld) [#/Vol]14.7 E9/LHigh 4.0-11.0Prem[facility] Hospital NorthComment on above:Performed By: #### [id number] #### [facility] [address] [place] [address]NO Clinical Summaryon [id number] Clinical SummaryED Clinical Summary [address] [address] ED Clinical Summary Person Information Name: SOCORRO JOSEPH Alena/[facility] Age: 23 Years : 2000 Sex: Female Language: Bahraini PCP: Raquel Nolan MD Marital Status: Single [...] 06/11/2024 11:55:54 06/11/2024 11:55:54 06/11/2024 11:55:54 ADDRESS: [address] [place] [id number] PHYS DOC NOTES: MEDICAL INFORMATION: Prescriptions Given: New Medications [facility], [address] [place] [id number], [phone] promethazine (promethazine 25 mg Tab) 1 Tablets [...] With: Address: When: Raquel [address] [place] [address] Business (1) In 3 days 06/14/2024 DIAGNOSIS: Diarrhea, unspecified; Nausea vomiting and diarrheaNormalSwain Community Hospitaler [facility] Patient Summaryon [id number] Patient SummaryED Patient Summary [address] [address] Patient Discharge Instructions Person Information Name: SOCORRO JOSEPH Age: 23 Years Arrival Date: 06/11/2024 08:54:52 Discharge Diagnosis: Diarrhea, unspecified; Nausea vomiting and diarrhea Primary Care Physician: Raquel Nolan MD Provider Information Primary Provider: Elver Gonzales MD Advanced Weigh Box Tender:Heri Lazcano PA-C The exam and treatment you received in the Emergency Department were for an urgent problem and are not intended as complete care. It is important that you follow up with a doctor, nurse practitioner,or physician???s computer assistant for ongoing care. If your symptoms [...] Address: When: [place] [address] [place] [address] Business (1) In 3 days 06/14/2024 In the event that this physician does not participate in your insurance network, please consult with your insurance company to find a nearby participating provider. Patient Education Materials: Viral Gastroenteritis, Adult A MESSAGE TO ALL PATIENTS REGARDING OPIOIDS PRESCRIPTION OPIOIDS: WHAT YOU NEED TO KNOW Prescription opioids can be used to help relieve iasmlnyy-wk-typeae pain and are often prescribed following a [...] struggling with addiction, tell (more content not included)...NormalPremier Health Miami Valley Hospital NorthHep Func Panelon 53-97-7406Cctgchh [Mass/Vol]4.9 g/dLNormal3.3-5.0Prem[facility] Hospital NorthComment on above: Performed By: #### [id number] #### [facility] [address], [place] [address]Dhpnlcu/Globulin (S) [Mass conc ratio]1.1Xfkgwr2.1-2.2FSt. Rita's HospitalComment on above:Performed By: #### [id number] #### [facility] [address], [place] [address]HJE [Catalytic activity/Vol]91 Int._Unit/JAkqvec74-75KokfoyPremier Health Miami Valley Hospital NorthComment on above:Performed By: #### [id number] #### [facility] [address], [place] [address]LDV No additional P-5'-P [Catalytic activity/Vol]14 Int._Unit/L Normal6-46Prem[facility] Miami [facility] Hospital NorthComment on above:Performed By: #### [id number] #### [facility] [address], [place] [address]GEN [Catalytic activity/Vol]14 Int._Unit/LNormal5-43Prem[facility] Hospital NorthComment on above:Performed By: #### [id number] #### [facility] [address], [place] [address]Tiqjjkcyp [Mass/Vol]1.0 mg/dLNormal0.0-1.1FSt. Rita's HospitalComment on above:Performed By: #### [id number] #### [facility] [address], [place] [address]Synqocfie.direct [Mass/Vol]0.1 mg/dLNormal0.0-0.4FSt. Rita's HospitalComment on above:Performed By: #### [id number] #### [facility] [address], [place] [address]Rjzirnwne.indirect [Mass or moles/Vol]0.9 mg/dLNormal0.1-0.9 [facility] Hospital NorthComment on above:Performed By: #### [id number] #### [facility] [address] [place] [address]Unsocxng (S) [Mass/Vol]2.7 g/dLNormal1.4-4.0Prem[facility] Hospital NorthComment on above:Performed By: #### [id number] #### [facility] [address], [place] [address]Yidgzow [Mass/Vol]7.6 g/dLNormal6.0-7.8Prem[facility] Hospital NorthComment on above:Performed By: #### [id number] #### [facility] [address], [place] [address]Cmmiuw Levelon 45-57-3298Fxqnci [Catalytic activity/Vol]6 U/L Ueu30-18HqbqzsPremier Health Miami Valley Hospital NorthComment on above:Performed By: #### [id number] #### [facility] [address], [place] [address]uOIJot 86-32-6714xIUP921 mL/min/1.73 q4Knneef>=59Prem[facility] Miami Valley Hospital NorthComment on above:Performed By: #### [id number] #### [facility] [address], [place] [address]NY Abdomen/Pelvis w/ Contraston 73-88-2595UU Abdomen/Pelvis w/ ContrastExam Date/Time: 04/15/2024 23:15 EST [...] Isovue 300 Contrast amount in ml's: 100NormalFisher E[facility]ria Memorial Hospital CenterED Clinical Summary on [id number] Clinical SummaryED Clinical Summary [place] [id number] ED Clinical Summary Person Information Name: SOCORRO JOSEPH Alena/[facility] Age: 23 Years : 2000 Sex: Female Language: Bahraini PCP: Raquel Nolan MD Marital Status: Single [...] 04/16/2024 02:43:08 04/16/2024 02:43:08 04/16/2024 02:43:08 ADDRESS: [address] [place] [phone] PHYS DOC NOTES: MEDICAL INFORMATION: Prescriptions Given: New Medications [facility] 1986, [address] [place], [place] [id number], [phone] dicyclomine (Bentyl 10 mg Cap) 1 Capsules [...] Address: When: [address] [place] [address] Business (1) In 3 days 04/19/2024 Comments: [...] (nausea and vomiting)NormalYonas Stacy Medical CenterED Note-Physicianon [id number] Note-PhysicianED Note-Physician Basic Information Time Seen: Narinder [...] abdominal cramping, # 16 cap(s),Refills(s) 0, [facility], cm, 04/15/24 21:15:00 EST, [...] PRN Nausea/Vomiting, # 12 tab(s), Refills(s) 0, [facility], cm, 04/15/24 21:15:00 EST, [...] 4 mg Dis Tab, 4 mg, Oral snwbwl88Clawgouxv [F] 25 mg + Sodium Chloride 0.9% IV Lorie 50 mL [F] 50 mL, IV Piggyback Zofran 4 mg/2 mL Injection, 4 mg, IV Push Disposition Plan Patient Discharge Condition Stable Discharge Dispo (more content not included)...[facility] Comment on above:Result Comment: Electronically Signed By: Narinder Kumar DO\.br\Date and Time Signed: 04/16/24 04:28 BGD Patient Summaryon [id number] Patient SummaryED Patient Summary [place] [id number] Patient Discharge Instructions Person Information Name: SOCORRO JOSEPH Age: 23 Years Arrival Date: 04/15/2024 20:32:57 Discharge Diagnosis: Abdominal pain, acute, epigastric; N&V (nausea and vomiting) Primary Care Physician: Raquel Nolan MD Provider Information Primary Provider: Narinder Kumar DO Advanced Weigh Box Tender:None The exam and treatment you received in the Emergency Department were for an urgent problem and are not intended as complete care. It is important that you follow up with a doctor, nurse practitioner,or physician???s computer assistant for ongoing care. If your symptoms [...] With: Address: When: Raquel Nolan [address] [place], [place] [id number] [facility] () In 3 days 04/19/2024 Comments: Call [...] opioids can be used to help relieve ztaangbk-ek-wxtpkc pain and are often prescribed following a [...] opioids. o Never use (more content not included)...[facility] w/ Auto Diffon 57-60-2165Sihdcwyus/100 WBC (Bld)0.2 %Normal0.0-2.0[facility] Hospital NorthComment on above:Performed By: #### [id number] #### [facility] [address] [place] [address]Vrjftauhc/Leukocytes Auto (Bld) [Pure # fraction]0.0 E9/LNormal 0.0-0.2FSt. Rita's HospitalComment on above:Performed By: #### [id number] #### [facility] [address] [place] [address]45[address]Jvpsmyfqbqb (Bld) [#/Vol]0.1 E9/LNormal0.0-0.5FSt. Rita's HospitalComment on above:Performed By: #### [id number] #### [facility] [address] [place] [address]30[address]Teghhwqjjpj/100 WBC (Bld)1.0 %Normal0.0-8.0[facility] Hospital NorthComment on above:Performed By: #### [id number] #### [facility] [address] [place] [address]Mxubejgwphd distribution width (RBC) [Ratio]13.1 %Normal 10.9-14.2FSt. Rita's HospitalComment on above:Performed By: #### [id number] #### [facility] [address] [place] [address] 99[address]Dhkjlprcop (Bld) [Volume fraction]39.0 %Vnejmw69.0-46.0[facility] Hospital NorthComment on above:Performed By: #### [id number] #### [facility] [address] [place] [address]36[address]Cdrpmhvhaf (Bld) [Mass/Vol]13.4 g/rJZnepir06.0-16.0[facility] Hospital NorthComment on above:Performed By: #### [id number] #### [facility] [address] [place] [address]Xossxnastuk (Bld) [#/Vol]2.9 E9/LNormal1.0-4.0[facility] NorthComment on above:Performed By: #### [id number] #### [facility] [address] [place] [address] 24[address]Dwahcachnle/100 WBC (Bld)28.0 %Alimjn67.0-50.0[facility] Hospital NorthComment on above:Performed By: #### [id number] #### [facility] [address] [place] [address]33[address]MMZ (RBC) [Entitic mass]31.8 ycAxtzoi72.0-34.0[facility] Hospital NorthComment on above:Performed By: #### [id number] #### [facility] [address] [place] [address]69[address]UCIM (RBC) [Mass/Vol]34.3 g/uRRwudlv74.4-36.0[facility] NorthComment on above:Performed By: #### [id number] #### [facility] [address] [place] [address] 10639TBY (RBC) [Entitic vol]92.9 sNHusmis57.0-100.0[facility] NorthComment on above:Performed By: #### [id number] #### [facility] [address] [place] [address] 37[address]Xhlfmbnui (Bld) [#/Vol]0.5 E9/LNormal0.2-1.0[facility] NorthComment on above:Performed By: #### [id number] #### [facility] [address] [place] [address] 42[address]Qjybxeninsi (Bld) [#/Vol]6.9 E9/LNormal2.0-7.5FSt. Rita's HospitalComment on above:Performed By: #### [id number] #### [facility] [address] [place] [address] 701[address]Xlrsgqhjrjy/100 WBC (Bld)66.1 %Yxqwvf86.0-75.0[facility] Hospital NorthComment on above:Performed By: #### [id number] #### [facility] [address], [place] [address]Xrccceus mean volume (Bld) [Entitic vol]8.2 fLNormal6.4-10.8 [facility] Hospital NorthComment on above:Performed By: #### [id number] #### [facility] [address], [place] [address]Mydrqjunn (Bld) [#/Vol]214.0 E9/MRmwpvb105.0-500.0[facility] Hospital NorthComment on above:Performed By: #### [id number] #### [facility] [address] [place] [address] 245[address]VMY (Bld) [#/Vol]4.2 E12/LLow4.3-5.9[facility] Comment on above:Performed By: #### [id number] #### [facility] [address] [place] [address] 39781RXD corrected for nucl RBC Auto (Bld) [#/Vol]10.5 E9/LNormal 4.0-11.0[facility] Hospital NorthComment on above:Performed By: #### [id number] #### [facility] [address] [place] [address] 89662QINCZSBLLQeycnmg By: Case Aponte on 57-59-6927Eoxvgbk [Mass/Vol]4.4 g/dLNormal3.3 - 5.0 gm/dLRemisol ChemAlbumin/Globulin [Mass ratio] 2.0 {ratio}Normal1.1 - 2.2Remisol ChemALP [Catalytic activity/Vol]78 [iU]/d Kdtjkj96 - 98 Int._Unit/LRemisol ChemALT No additional P-5'-P [Catalytic activity/Vol]24 [iU]/dNormal6 - 46 Int._Unit/LRemisol ChemAnion gap [Moles/Vol] 10 mmol/LNormal6 - 16 mEq/LRemisol ChemAST [Catalytic activity/Vol]16 [iU]/d Normal5 - 43 Int._Unit/LRemisol ChemBilirubin [Mass/Vol]0.4 mg/dLNormal0.0 - 1.1 mg/dLRemisol ChemCalcium [Mass/Vol]8.8 mg/dLLow8.9 - 11.1 mg/dLRemisol Chem Chloride [Moles/Vol]106 mmol/BTznmci389 - 111 mmol/LRemisol ChemCO2 [Moles/Vol] 27 mmol/HHfvjdl49 - 31 mmol/LRemisol ChemCreatinine [Mass/Vol]0.7 mg/dLNormal0.5 - 1.3 mg/dLRemisol UhkmrDHJ048 mL/min/1.73 b4Xyeode>=59mL/min/1.73 k7Fgwatzc ChemGlobulin (S) [Mass/Vol]2.2 g/dLNormal1.4 - 4.0 gm/dLRemisol ChemGlucose [Mass/Vol]94 mg/sMXptzjm41 - 199 mg/dLRemisol ChemLipase [Catalytic activity/Vol]8 U/LLow13 - 58 unit/LRemisol ChemPotassium [Moles/Vol]3.5 mmol/L Normal3.5 - 5.3 mmol/LRemisol ChemProtein [Mass/Vol]6.6 g/dLNormal6.0 - 7.8 gm/dLRemisol ChemSodium [Moles/Vol]139 mmol/XLasmoz002 - 145 mmol/LRemisol Chem Urea nitrogen [Mass/Vol]9 mg/dLNormal5 - 21 mg/dLRemisol ChemUrea nitrogen/Creatinine [Mass ratio]13 mg/thUatryg90 - 20Remisol ChemCMPon 75-23-3108Skrifcp [Mass/Vol]4.4 g/dLNormal3.3-5.0[facility] Comment on above:Performed By: #### [id number] #### [facility] [address], [place] [address]Jzdmpwp/Globulin (S) [Mass conc ratio]2.2Qatuuk8.1-2.2[facility] And HospitalComment on above:Performed By: #### [id number] #### [facility] [address], [place] [address]BVW [Catalytic activity/Vol]78 Int._Unit/MWvkest08-08LmhkhxPremier Health Miami Valley Hospital NorthComment on above:Performed By: #### [id number] #### [facility] [address], [place] [address]IFG No additional P-5'-P [Catalytic activity/Vol]24 Int._Unit/L Normal6-46[facility] NorthComment on above:Performed By: #### [id number] #### [facility] [address], [place] [address]Oenio gap [Moles/Vol]10 mmol/LNormal6-16[facility] NorthComment on above:Performed By: #### [id number] #### [facility] [address], [place] [address]VVI [Catalytic activity/Vol]16 Int._Unit/LNormal5-43[facility] NorthComment on above:Performed By: #### [id number] #### [facility] [address], [place] [address]Wymrdjzar [Mass/Vol]0.4 mg/dLNormal0.0-1.1FSt. Rita's HospitalComment on above:Performed By: #### [id number] #### [facility] [address] [place] [address]Hgxttpx [Mass/Vol]8.8 mg/dLLow8.9-11.1FSt. Rita's HospitalComment on above:Performed By: #### [id number] #### [facility] [address], [place] [address]Qqdmmdyi [Moles/Vol]106 mmol/QWayzyn710-617HihhzqPremier Health Miami Valley Hospital NorthComment on above:Performed By: #### [id number] #### [facility] [address], [place] [address]DM1 [Moles/Vol]27 mmol/LPiodyl70-96JbfqqxPremier Health [facility] Comment on above:Performed By: #### [id number] #### [facility] [address], [place] [address]Eurupfvggt [Mass/Vol]0.7 mg/dLNormal0.5-1.3FSt. Rita's HospitalComment on above:Performed By: #### [id number] #### [place] [facility] [address], [place] [address]Mzbtmjgk (S) [Mass/Vol]2.2 g/dLNormal1.4-4.0[facility] NorthComment on above:Performed By: #### [id number] #### [facility] [address], [place] [address]Sseewlz [Mass/Vol]94 mg/lXIorayx54-575LgsbzoPremier Health Miami Valley Hospital NorthComment on above:Performed By: #### [id number] #### [facility] [address] [place] [address]Dfcmjujxi [Moles/Vol]3.5 mmol/LNormal3.5-5.3FSt. Rita's HospitalComment on above:Performed By: #### [id number] #### [facility] [address], [place] [address]Djhxijh [Mass/Vol]6.6 g/dLNormal6.0-7.8[facility] NorthComment on above:Performed By: #### [id number] #### [facility] [address], [place] [address]Cfhcpf [Moles/Vol]139 mmol/NHenusm867-264YivdxnPremier Health Miami Valley Hospital NorthComment on above:Performed By: #### [id number] #### [facility] [address], [place] [address]Axmr nitrogen [Mass/Vol]9 mg/dLNormal5-21[facility] NorthComment on above:Performed By: #### [id number] #### [facility] [address], [place] [address]Khne nitrogen/Creatinine [Mass ratio]13 No OosvhOxqnwb06-75 [facility] NorthComment on above:Performed By: #### [id number] #### [facility] [address] [place], [place] [address]DMBAJUNURUImtwimm By: SYSTEM SYSTEM on 87-54-0140Kburrloym/100 WBC (Bld)0.2 %Normal0.0 - 2.0 %Remisol HemeBasophils/Leukocytes Auto (Bld) [Pure # fraction]0.0 E9/LNormal0.0 - 0.2 E9/LRemisol HemeEosinophils (Bld) [#/Vol]0.1 E9/LNormal0.0 - 0.5 E9/LRemisol HemeEosinophils/100 WBC (Bld)1.0 %Normal0.0 - 8.0 %Remisol HemeErythrocyte distribution width (RBC) [Ratio]13.1 %Jpnldp20.9 - 14.2 %Remisol HemeHematocrit (Bld) [Volume fraction]39.0 %Jwmngs44.0 - 46.0 % Remisol HemeHemoglobin (Bld) [Mass/Vol]13.4 g/oRXgobsi45.0 - 16.0 gm/dLRemisol HemeLymphocytes (Bld) [#/Vol]2.9 E9/LNormal1.0 - 4.0 E9/LRemisol Heme Lymphocytes/100 WBC (Bld)28.0 %Erapzc83.0 - 50.0 %Remisol HemeMCH (RBC) [Entitic mass]31.8 cxYpeqqu40.0 - 34.0 pgRemisol HemeMCHC (RBC) [Mass/Vol]34.3 g/dL Jtlade90.4 - 36.0 gm/dLRemisol HemeMCV (RBC) [Entitic vol]92.9 nMQqwzdc10.0 - 100.0 fLRemisol HemeMonocytes (Bld) [#/Vol]0.5 E9/LNormal0.2 - 1.0 E9/LRemisol HemeMonocytes/100 WBC (Bld)4.7 %Normal4.0 - 14.0 %Remisol HemeNeutrophils (Bld) [#/Vol]6.9 E9/LNormal2.0 - 7.5 E9/LRemisol HemeNeutrophils/100 WBC (Bld)66.1 % Rbabaw85.0 - 75.0 %Remisol HemePlatelet mean volume (Bld) [Entitic vol]8.2 fL Normal6.4 - 10.8 fLRemisol HemePlatelets (Bld) [#/Vol]214.0 E9/BVdprcd900.0 - 500.0 E9/LRemisol HemeRBC (Bld) [#/Vol]4.2 E12/LLow4.3 - 5.9 E12/LRemisol Heme WBC corrected for nucl RBC Auto (Bld) [#/Vol]10.5 E9/LNormal4.0 - 11.0 E9/L Remisol HemeLipase Levelon 57-68-4960Avzdeu [Catalytic activity/Vol]8 U/LLow 13-58[facility] NorthComment on above:Performed By: #### [id number] #### [facility] [address], [place] [address]kDZRbb 11-70-6330iZWK094 mL/min/1.73 h8Qeduoz>=59[facility] NorthComment on above:Performed By: #### [id number] #### [facility] [address], [place] [address]Kmyciybupa Visit Summaryon 09-72-7771Yijsthrypq Visit Summary Ambulatory Visit Summary ERIK, SOCORRO [...] tablet to dissolve on tongue Pickup at [facility] 1985 New oseltamivir (Tamiflu 75 mg Cap) 1 Capsules By Mouth 2 times a day Influenza A Nausea BMI 27.0-27.9,adult Duration: 5 Days Pickup at [facility] 1985 Pharmacy Information [facility] 1985: [address] [place], [place] [id number] [phone] Medications and Immunizations Administered Given ondansetron 4 [...] you for choosing us for your care. [facility] Medicine Office/Clinic Noteon 36-08-8636Ftzqac Medicine Office/Clinic NoteFamalden hospital Medicine Office/Clinic Note Chief Complaint migraine, nausea HPI Staff 23 year old female presents with migraine, nausea, sinus congestion onset yesterday History of Present Illness I have reviewed and verified the staff HPI to be accurate for this encounter. Portions of this record have been created with voice recognition software. Occasional wrong-word or???vxtol-m-llec??? substitutions may have occurred due to the [...] for tamiflu- sent to pharmacy. May use sbxj-hxm-gnzvamn cold and flu medications per package instructions for symptomat ic treatment. Fluids/rest encouraged, PRN tylenol/ibuprofen for pain/fever, may need to alternate. Follow up with PCP if not improving over next 5-7 days, sooner or ER if significantly worsening. Patient/parent verbalized understanding of tx plan. Ordered: oseltamivir, 75 mg = 1 cap(s), Oral, BID, X 5 day(s), # 10 cap(s), Refills(s) 0, Pharmacy: [facility] 1985, 175.6, cm, 04/12/24 13:49:00 EST, Height/Length Dosing, 83.8, kg, 04/12/24 13:49:00 EST, Weight Dosing 2. Headache (R51.9: Headache, unspecified) As above in #1 May use Tylenol or ibuprofen for headache/ fever per package instructions. 3. Nausea (R11.0: Nausea) Patien (more content not included)...[facility] HospitalComment on above:Result Comment: Electronically Signed By: Charisse Russell\.br\Date and Time Signed: 04/12/24 18:34 ESTPatient Letter FTon [id number] Letter FTPatient Letter FT [address], [place] [phone] April 12, 2024 SOCORRO JOSEPH [address] [place] [address] : 2000 Please excuse SOCORRO JOSEPH from work . Date and/or Time of Absence: From: 04/15/24 To: 04/15/2024 May return to work on: 04/16/2024 Restrictions: None Comments: Please excuse due to an acute illness. Provider Signature: AZALIA Arizmendi Nurse Practitioner [facility] [address] [address] [facility] HospitalPatient Letter FTMCPatient Letter FT [address], [facility] [place] [phone] April 12, 2024 SOCORRO JOSEPH [address] [place] [address] : 2000 Please excuse SOCORRO JOSEPH from work . Date and/or Time of Absence: From: 04/12/2024 To: 04/13/2024 May return to work on: 04/14/2024 Restrictions: None Comments: Please excuse due to an acute illness. Provider Signature: AZALIA Arizmendi Nurse Practitioner [facility] [address] [place] [address] [facility] CenterED Note-Physicianon [id number] Note-PhysicianED Note-Physician Basic Information Time Seen: Heri [...] COVID testing performed. Has been trying some ugks-arc-ajfftli cough and cold medications. Muscle discharge now [...] 10 day(s), # 20 tab(s), Refills(s) 0, Pharmacy:[facility] 1985, 175.6, cm, 03/20/24 7:23:00 EST, Height/Length Dosing, 80, kg, 03/20/24 7:23:00 EST, Weight Dosing dextromethorphan-promethazine, 5 mL, Oral, q6hr for cough for 5 day(s), 200 mL, Refill(s) 0, [facility] 1985, 175.6, cm, 03/20/24 7:23:00 [...] days 03/23/[address] [place] [address]- Business (1) Additional Instructions: Patient Education Cough, [...] Every effort was mad (more content not included)...NormalPremier Health Miami Valley Hospital NorthComment on above:Result Comment: Electronically Signed By: Heri Lazcano PA-C\.br\Date and Time Signed: 03/20/2409:21 EST\.br\Electronically Co-Signed By: Roque Harris DO\.br\Date and Time Co-Signed: 03/21/24 08:01 ESTBMPon 63-20-2854Kvovi gap [Moles/Vol]10 mmol/LNormal6-16[facility] NorthComment on above: Performed By: #### [id number] #### [facility] [address], [place] [address]Cevcvmp [Mass/Vol]9.4 mg/dLNormal8.9-11.1FSt. Rita's HospitalComment on above:Performed By: #### [id number] #### [facility] [address], [place] [address]Ojflhhrv [Moles/Vol]104 mmol/LCdsrkm824-304EpmksfPremier Health Miami Valley Hospital NorthComment on above:Performed By: #### [id number] #### [facility] [address], [place] [address]AG7 [Moles/Vol]28 mmol/LAnuodd80-13GurkjqPremier Health [facility] Comment on above:Performed By: #### [id number] #### [facility] [address], [place] [address]Plzrdzedko [Mass/Vol]0.6 mg/dLNormal0.5-1.3FSt. Rita's HospitalComment on above:Performed By: #### [id number] #### [facility] [address], [place] [address]Wlvxypt [Mass/Vol]93 mg/aGCgnyin72-288CnjntlPremier Health Miami Valley Hospital NorthComment on above:Performed By: #### [id number] #### [facility] [address], [place] [address]Qbgspcdlv [Moles/Vol]4.2 mmol/LNormal3.5-5.3FSt. Rita's HospitalComment on above:Performed By: #### [id number] #### [facility] [address], [place] [address]Jqhwfe [Moles/Vol]138 mmol/BXyjdzi381-129SlohgtPremier Health Miami Valley Hospital NorthComment on above:Performed By: #### [id number] #### [facility] [address], [place] [address]Uvkm nitrogen [Mass/Vol]15 mg/dLNormal5-21[facility] NorthComment on above:Performed By: #### [id number] #### [facility] [address] [place] [address]Plqc nitrogen/Creatinine [Mass ratio]25 No OfvcvInxy88-66BsmzqzPremier Health Miami Valley Hospital NorthComment on above:Performed By: #### [id number] #### [facility] [address] [place] [address]DZQ w/ Auto Diffon 29-34-9713Txzsipygg/100 WBC (Bld)0.7 %Normal 0.0-2.0[facility] NorthComment on above:Performed By: #### [id number] #### [facility] [address] [place] [address]Xjiufbrfe/Leukocytes Auto (Bld) [Pure # fraction]0.1 E9/LNormal 0.0-0.2FSt. Rita's HospitalComment on above:Performed By: #### [id number] #### [facility] [address] [place] [address]Wwmbsmmsqhs (Bld) [#/Vol]0.3 E9/LNormal0.0-0.5FSt. Rita's HospitalComment on above:Performed By: #### [id number] #### [facility] [address] [place] [address]Tvvmwhleezd/100 WBC (Bld)3.9 %Normal0.0-8.0[facility] NorthComment on above:Performed By: #### [id number] #### [facility] [address] [place] [address]Afavqwnjvxa distribution width (RBC) [Ratio]12.7 %Normal 10.9-14.2FSt. Rita's HospitalComment on above:Performed By: #### [id number] #### [facility] [address] [place] [address]Fyvucwiyzj (Bld) [Volume fraction]38.7 %Gqyzuh51.0-46.0[facility] NorthComment on above:Performed By: #### [id number] #### [facility] [address] [place] [address]Agibxqjjpu (Bld) [Mass/Vol]13.4 g/eMLdhmkm02.0-16.0[facility] NorthComment on above:Performed By: #### [id number] #### [facility] [address] [place] [address]Lgeedbjnwop (Bld) [#/Vol]2.2 E9/LNormal1.0-4.0[facility] NorthComment on above:Performed By: #### [id number] #### [facility] [address] [place] [address]Zyqfazhlydl/100 WBC (Bld)31.7 %Sakuzd16.0-50.0[facility] NorthComment on above:Performed By: #### [id number] #### [facility] [address] [place] [address]XOZ (RBC) [Entitic mass]32.2 pfCwdddz46.0-34.0[facility] NorthComment on above:Performed By: #### [id number] #### [facility] [address] [place] [address]MZED (RBC) [Mass/Vol]34.5 g/fJQmnvqk36.4-36.0[facility] NorthComment on above:Performed By: #### [id number] #### [facility] [address] [place] [address]WUY (RBC) [Entitic vol]93.1 aYFrbwxn07.0-100.0[facility] NorthComment on above:Performed By: #### [id number] #### [facility] [address] [place] [address]Xtrtsxzcc (Bld) [#/Vol]0.5 E9/LNormal0.2-1.0[facility] NorthComment on above:Performed By: #### [id number] #### [facility] [address] [place] [address]Jfngrfgccls (Bld) [#/Vol]4.0 E9/LNormal2.0-7.5FSt. Rita's HospitalComment on above:Performed By: #### [id number] #### [facility] [address] [place] [address]Nkqlpbhdpze/100 WBC (Bld)56.8 %Czfsor70.0-75.0[facility] NorthComment on above:Performed By: #### [id number] #### [facility] [address] [place] [address]Wacdcxzv mean volume (Bld) [Entitic vol]8.6 fLNormal6.4-10.8 [facility] NorthComment on above:Performed By: #### [id number] #### [facility] [address] [place] [address]Xcqgzqweg (Bld) [#/Vol]264.0 E9/FDbqbgc092.0-500.0[facility] NorthComment on above:Performed By: #### [id number] #### [facility] [address] [place] [address]XEF (Bld) [#/Vol]4.2 E12/LLow4.3-5.9[facility] Comment on above:Performed By: #### [id number] #### [facility] [address] [place] [address] [place] [address]REK corrected for nucl RBC Auto (Bld) [#/Vol]7.0 E9/LNormal 4.0-11.0[facility] Hospitaler [facility] HospitalComment on above:Performed By: #### [id number] #### [facility] [address], [place] [address]DZTDQJMVWIekqjcb By: SYSTEM SYSTEM on 53-13-8054Wjkcnfb [Mass/Vol]4.3 g/dLNormal3.3 - 5.0 gm/dLRemisol ChemAlbumin/Globulin [Mass [...] [Mass/Vol]9.4 mg/dLNormal8.9 - 11.1 mg/dLRemisol ChemChloride [Moles/Vol]104 mmol/MMqxnbu984 - 111 mmol/LRemisol ChemCO2 [Moles/Vol]28 mmol/L Mlhdor49 - 31 mmol/LRemisol ChemCreatinine [Mass/Vol]0.6 mg/dLNormal0.5 - 1.3 mg/dLRemisol LsqfiYBQ006 mL/min/1.73 b3Uszbtg>=59mL/min/1.73 n7Igebfsq Chem Globulin (S) [Mass/Vol]2.7 g/dLNormal1.4 - 4.0 gm/dLRemisol ChemGlucose [Mass/Vol]93 mg/yLVofpyw63 - 199 mg/dLRemisol ChemLipase [Catalytic activity/Vol]6 U/LLow13 - 58 unit/LRemisol ChemPotassium [Moles/Vol]4.2 mmol/L Normal3.5 - 5.3 mmol/LRemisol ChemProtein [Mass/Vol]7.0 g/dLNormal6.0 - 7.8 gm/dLRemisol ChemSodium [Moles/Vol]138 mmol/RExwrte520 - 145 mmol/LRemisol Chem Urea nitrogen [Mass/Vol]15 mg/dLNormal5 - 21 mg/dLRemisol ChemUrea nitrogen/Creatinine [Mass ratio]25 mg/xlZrdv85 - 20Remisol ChemED Clinical Summaryon [id number] Clinical SummaryED Clinical Summary [place] [id number] ED Clinical Summary Person Information Name: SOCORRO JOSEPH [facility] Age: 23 Years : 2000 Sex: Female Language: Bahraini PCP: Raquel Nolan MD Marital Status: Single [...] 03/20/2024 09:23:46 03/20/2024 09:23:46 03/20/2024 09:23:46 ADDRESS: [address] [place] [id number] PHYS DOC NOTES: MEDICAL INFORMATION: Prescriptions Given: New Medications [facility], [address] [place] [id number], [phone] amoxicillin-clavulanate (Augmentin 875 mg oral tablet) 1 [...] With: Address: When: Raquel Nolan [place] [address] Business (1) In 3 days 03/23/2024 DIAGNOSIS: Abdominal pain; CoughNormalFisher New Kent Medical CenterED Patient Summaryon [id number] Patient SummaryED Patient Summary [address] [address] Patient Discharge Instructions Person Information Name: SOCORRO JOSEPH Age: 23 Years Arrival Date: 03/20/2024 07:17:01 Discharge Diagnosis: Abdominal pain; Cough Primary Care Physician: Raquel Nolan MD Provider Information Primary Provider: Roque Harris DO Advanced Weigh Box Tender:Heri Lazcano PA-C The exam and treatment you received in the Emergency Department were for an urgent problem and are not intended as complete care. It is important that you follow up with a doctor, nurse practitioner,or physician???s computer assistant for ongoing care. If your symptoms [...] Address: When: [address] [address] [place] [address] Business (1) In 3 days 03/23/2024 In the event that this physician does not participate in your insurance network, please consult with your insurance company to find a nearby participating provider. Patient Education Materials: Cough, Adult; Abdominal Pain, Adult A MESSAGE TO ALL PATIENTS REGARDING OPIOIDS PRESCRIPTION OPIOIDS: WHAT YOU NEED TO KNOW Prescription opioids can be used to help relieve hpafpldf-hn-owefqk pain and are often prescribed following a [...] tell your health care (more content not included)...NormalPremier Health Miami Valley Hospital NorthExtra Blueon 02-36-6040Tcol Collected PlasmaYesInvalid Interpretation CodePremier Health Miami Valley Hospital NorthComment on above:Performed By: #### [id number] #### [facility] [address] [place], [place] [address]MGXFLSRLBVIqnrnid By: Rachael San on 03-20-2024 Basophils/100 WBC (Bld)0.7 %Normal0.0 - 2.0 %Remisol HemeBasophils/Leukocytes Auto (Bld) [Pure # fraction]0.1 E9/LNormal0.0 - 0.2 E9/LRemisol HemeEosinophils (Bld) [#/Vol]0.3 E9/LNormal0.0 - 0.5 E9/LRemisol HemeEosinophils/100 WBC (Bld) 3.9 %Normal0.0 - 8.0 %Remisol HemeErythrocyte distribution width (RBC) [Ratio] 12.7 %Pzdoaj83.9 - 14.2 %Remisol HemeHematocrit (Bld) [Volume fraction]38.7 % Nduzfd94.0 - 46.0 %Remisol HemeHemoglobin (Bld) [Mass/Vol]13.4 g/sSHnmguz09.0 - 16.0 gm/dLRemisol HemeLymphocytes (Bld) [#/Vol]2.2 E9/LNormal1.0 - 4.0 E9/L Remisol HemeLymphocytes/100 WBC (Bld)31.7 %Boodof95.0 - 50.0 %Remisol HemeMCH (RBC) [Entitic mass]32.2 evEghycy66.0 - 34.0 pgRemisol HemeMCHC (RBC) [Mass/Vol] 34.5 g/sDApesib97.4 - 36.0 gm/dLRemisol HemeMCV (RBC) [Entitic vol]93.1 fLNormal 80.0 - 100.0 fLRemisol HemeMonocytes (Bld) [#/Vol]0.5 E9/LNormal0.2 - 1.0 E9/L Remisol HemeMonocytes/100 WBC (Bld)6.9 %Normal4.0 - 14.0 %Remisol Heme Neutrophils (Bld) [#/Vol]4.0 E9/LNormal2.0 - 7.5 E9/LRemisol HemeNeutrophils/100 WBC (Bld)56.8 %Xigchw13.0 - 75.0 %Remisol HemePlatelet mean volume (Bld) [Entitic vol]8.6 fLNormal6.4 - 10.8 fLRemisol HemePlatelets (Bld) [#/Vol]264.0 E9/MTbuzyc489.0 - 500.0 E9/LRemisol HemeRBC (Bld) [#/Vol]4.2 E12/LLow4.3 - 5.9 E12/LRemisol HemeWBC corrected for nucl RBC Auto (Bld) [#/Vol]7.0 E9/LNormal4.0 - 11.0 E9/LRemisol HemeHep Func Panelon [id number] [Mass/Vol]4.3 g/dL Normal3.3-5.0[facility] Hospital NorthComment on above:Performed By: #### [id number] #### [facility] [address], [place] [address]Xdostun/Globulin (S) [Mass conc ratio]1.9Iirhfo3.1-2.2Fisher [facility] And HospitalComment on above:Performed By: #### [id number] #### [facility] [address], [place] [address]PMF [Catalytic activity/Vol]110 Int._Unit/UPszo21-17EiqxzqPremier Health Miami Valley Hospital NorthComment on above:Performed By: #### [id number] #### [facility] [address], [place] [address]GNX No additional P-5'-P [Catalytic activity/Vol]26 Int._Unit/L Normal6-46[facility] Hospital NorthComment on above:Performed By: #### [id number] #### [facility] [address], [place] [address]KAU [Catalytic activity/Vol]16 Int._Unit/LNormal5-43[facility] NorthComment on above:Performed By: #### [id number] #### [facility] [address], [place] [address]Suoryywmq [Mass/Vol]0.7 mg/dLNormal0.0-1.1FSt. Rita's HospitalComment on above:Performed By: #### [id number] #### [facility] [address], [place] [address]Xynllhwvc.direct [Mass/Vol]0.1 mg/dLNormal0.0-0.4FSt. Rita's HospitalComment on above:Performed By: #### [id number] #### [facility] [address] [place] [address]Kqzkjndax.indirect [Mass or moles/Vol]0.6 mg/dLNormal0.1-0.9 [facility] NorthComment on above:Performed By: #### [id number] #### [facility] [address] [place] [address] 14066Krhazera (S) [Mass/Vol]2.7 g/dLNormal1.4-4.0[facility] NorthComment on above:Performed By: #### [id number] #### [facility] [address] [place] [address] 66388Nihbvnw [Mass/Vol]7.0 g/dLNormal6.0-7.8[facility] NorthComment on above:Performed By: #### [id number] #### [facility] [address] [place] [address] 57484Kwurqu Levelon 52-92-6068Kjjjyr [Catalytic activity/Vol]6 U/L Tmc80-68HltysmPremier Health Miami Valley Hospital NorthComment on above:Performed By: #### [id number] #### [facility] [address] [place] [address] 55452WYTQFNKTJfthccd By: Radha Case on 55-49-6418ZUI.beta subunit (U) [Moles/Vol]NegativeNormalFT Man SeroU BetaHcg Qualon 12-09-3057ONR.beta subunit (U) [Moles/Vol]NegativeNormalPremier Health Miami [facility] Hospital NorthComment on above:Performed By: #### [id number] #### [facility] [address], [place] [address]WC with Cult Rflxon 22-11-2044Circwooj Auto Ql (U)TraceNormal TracePremier Health Miami Valley Hospital NorthComment on above:Performed By: #### [id number] #### [facility] [address], [place] [address]Kmuxcopfo Ql (U)NegativeNormalNegMiddletown HospitalComment on above:Performed By: #### [id number] #### [facility] [address], [place] [address]Avedcso (U)ClearNormalClearPremier Health [facility] Hospital NorthComment on above:Performed By: #### [id number] #### [facility] [address], [place] [address]Cvmoe (U)YellowNormalYellowPremier Health [facility] Hospital NorthComment on above:Result Comment: Microscopic readings are only performed on those samples that meet specific criteria set forth by [facility].Performed By: #### [id number] #### [facility] [address], [place] [address]Qlqgzinxzs cells.squamous Auto (Urine sed) [#/Area]3-4Invalid Interpretation CodePremier Health Miami Valley Hospital NorthComment on above:Performed By: #### [id number] #### [facility] [address], [place] [address]Wlroutt Ql (U)NegativeNormalNegMiddletown Hospital Comment on above:Performed By: #### [id number] #### [facility] [address], [place] [address]Pttpzufsea Auto test strip (U) [Mass/Vol]3+ mg/dLAbnormal [facility] HospitalComment on above:Performed By: #### [id number] #### [facility] [address], [place] [address]Uvcebcl Auto test strip Ql (U)NegativeNormalNegativePremier Health [facility] Hospital NorthComment on above:Performed By: #### [id number] #### [facility] [address], [place] [address]Ulbpoydoq esterase Auto test strip Ql (U)NegativeNormalNegative [facility] NorthComment on above:Performed By: #### [id number] #### [facility] [address] [place] [address] 09854Yockh Auto Ql (U)TraceNormalNegativePrem[facility] Health [facility] Comment on above:Performed By: #### [id number] #### [facility] [address] [place] [address] 94281Bacpikz Auto test strip Ql (U)NegativeNormalNegativePremier Health [facility] Hospital NorthComment on above:Performed By: #### [id number] #### [facility] [address] [place] [address] 61923xJ (U)7.5 [pH]Invalid Interpretation Code5.0-9.0[facility] NorthComment on above:Performed By: #### [id number] #### [facility] [address] [place] [address] 828[address]Nzxdxdu Ql (U)NegativeNormalNegativePrem[facility] Health [facility] Comment on above:Performed By: #### [id number] #### [facility] [address] [place] [address] 68100XPJ Ql (U)0-87Tskfdnum0-2EizqhrSt. Rita's HospitalComment on above:Performed By: #### [id number] #### [facility] [address] [place] [address] 12557Vskxiyjf gravity (U) [Rel density]1.012Invalid Interpretation Code1.005-1.030[facility] NorthComment on above:Performed By: #### [id number] #### [facility] [address], [place] [address]Vsjlvppagxgw (U) [Mass/Vol]NegativeNormalNegativeSwain Community Hospitaler [facility] And HospitalComment on above:Performed By: #### [id number] #### [facility] [address], [place] [address]WTI Auto (Urine sed) [#/Area]1-5Lwkbju9-3Uzclvv [facility] HospitalComment on above:Performed By: #### [id number] #### [facility] [address], [place] [address]Vfbu of Urine collection methodClean CatchNormSouthern Ohio Medical CenterComment on above:Performed By: #### [id number] #### [facility] [address], [place] [address]FJEGDMMYYZBnktpmh By: SYSTEM SYSTEM on 58-99-5510Jqaublmq Auto Ql (U)Trace /HPFNormalTrace/HPFFT UA Auto SSBilirubin Ql (U)NegativeNormal Negativemg/dLINTEGRIS [facility] [place] U[place] Auto SSClarity (U)Clear (03/20/24 7:29 AM)NormalClearFLAKESIDE W[facility] [place] Auto SSColor (U)Yellow 1 (03/20/24 7:29 AM)NormalYellowINTEGRIS BAPTIST [facility] [place] UA Auto SSComment on above:Interpretive Data: Microscopic readings are only performed on those samples that meet specific criteria set forth by [facility].Epithelial cells.squamous Auto (Urine sed) [#/Area]3-4 graded/HPFInvalid Interpretation CodeFT UA Auto SSGlucose Ql (U)NegativeNormalNegativemg/dLINTEGRIS BAP[facility] [place] UA Auto SS Hemoglobin Auto test strip (U) [Mass/Vol]3+ mg/dLInvalid Interpretation Code Negativemg/dLINTEGRIS BAPT[facility] [place] UA Auto SSKetones Auto test strip Ql (U)NegativeNormal Negativemg/dLFT UA Auto SSLeukocyte esterase Auto test strip Ql (U)Negative NormalNegativeLeu/uLFT UA Auto SSMucus Auto Ql (U)Trace graded/LPFNormal Negativegraded/LPFFTMC UA Auto SSNitrite Auto test strip Ql (U)NegativeNormal Negativemg/dLFTMC UA Auto SSpH (U)7.5 *NA* (03/20/24 7:29 AM)Invalid Interpretation Code5.0 - 9.0[facility] [place] UA Auto SSProtein Ql (U)NegativeNormalNegativemg/dLINTEGRIS BAP[facility] [place] UA Auto SSRBC Ql (U)4-20 graded/HPFInvalid Interpretation Code0-3graded/HPFINTEGRIS BAPTIST [facility] [place] UA Auto SSSpecific gravity (U) [Rel density]1.012 *NA* (03/20/24 7:29 AM)Invalid Interpretation Code1.005 - 1.030[facility] [place] UA Auto SS Urobilinogen (U) [Mass/Vol]NegativeNormalNegativemg/dLINTEGRIS BAP[facility] [place] UA Auto SSWBC Auto (Urine sed) [#/Area]0-5 graded/HPFNormal0-5graded/HPFINTEGRIS BAPT[facility] [place] UA Auto SSURINALYSIS Ordered By: Chandana Tellez on 66-20-5491KU Spec DescClean Catch (03/20/24 7:29 AM)NormalINTEGRIS BAPTIST [facility]ICAL [facility] [place] UA Auto SSXR Abdomen Series w/ Chest 1 Viewon 94-98-7149TD Abdomen Series w/ Chest 1 ViewExam Date/Time: [...] Ka,r in mGy = na DAP = naNormalPremier Health [facility] Hospital NortheGFRon 83-93-4189vVHF761 mL/min/1.73 m2 Normal>=[address] [place], [place] [address]Comment on above:Performed By: #### [id number] #### [facility] [address] [place], [place] [address]Ruegzaydjm Visit Summaryon 02-73-9671Tegoexwlyd Visit Summary Ambulatory Visit Summary SOCORRO JOSEPH [...] pneumonia Cough Duration: 5 Days Pickup at [facility] Pharmacy Information [facility]: [address] [place], [place] [id number] [phone] Allergies No Known Allergies Problems Ongoing - [...] you for choosing us for your care. [facility] Office/Clinic Noteon 75-10-7019[place] Medicine Office/Clinic NoteFamalden hospital Medicine Office/Clinic Note Chief Complaint cough [...] created with voice recognition software. Occasional wrong-word or???qlcmc-k-buxe??? substitutions may have occurred due to the [...] diagnosed with pneumonia. She has been using tjdk-fqr-thgdbgj medications like DayQuil, Tylenol Cold and flu [...] for 5 day(s), 200 mL, Refill(s) 0, [facility], 175, cm, 03/15/24 15:52:00 EST, Height/Length Dosing, 84, kg, 03/15/24 15:52:00 EST, Weight Dosing Rapid COVID POC 78775 XR Chest 2 Views Cough (R05.9: Cough, unspecified) Ordered: brompheniramine/dextromethorphan/PSE, 10 mL, Oral, QID for 5 day(s), 200 mL, Refill(s) 0, [facility], 175, cm, 03/15/24 15:52:00 EST, Height/Length Dosing, 84, kg, 03/15/24 15:52:00 EST, Weight Dosing Rapid COVID POC 40322 XR Chest 2 Views Follow-up With When Contact Information An LOERA, [place] [place] [address]- Additional Instructions: Patient Education Cough, Adult, Onrf-ep-Sieh Viral Respiratory Infection, Llmr-Lg-Lkdv Problem List/Past Medical History Ongoing Depression Smoker Historical Smoker Supervision of normal in second trimester Procedure/Surgical History Insertion of IUD (07/18/2019), Tubal ligation. Medications Bromfed DM oral syrup, 10 mL, Oral, QID Allergies No Known Allergies Social History Alcohol - Denies Alcohol Use, 06/29/2023 Liquor, 1-2 times per month, 06/16/2020 DENIES, Household alcohol concerns: No., 12/25/2019 Employment/School Employed, Highest education (more content not included)...[facility] HospitalComment on above:Result Comment: Electronically Signed By: Charisse Russell\.br\Date and Time Signed: 03/15/24 16:45 ESTFamalden hospital Medicine Office/Clinic NoteFami Medicine Office/Clinic Note [...] for 5 day(s), 200 mL, Refill(s) 0, [facility], 175, cm, 03/15/24 15:52:00 EST, Height/Length Dosing, 84, kg, 03/15/24 15:52:00 EST, Weight Dosing Rapid COVID POC 36556 XR Chest 2 Views 2. Cough (R05.9: Cough, unspecified) Ordered: brompheniramine/dextromethorphan/PSE, 10 mL, Oral, QID for 5 day(s), 200 mL, Refill(s) 0, [facility], 175, cm, 03/15/24 15:52:00 EST, Height/Length Dosing, 84, kg, 03/15/24 15:52:00 EST, Weight Dosing Rapid COVID POC 02644 XR Chest 2 Views Follow-up No qualifying [...] IMPRESSION: NO RADIOGRAPHIC EVIDENC (more content not included)...[facility] HospitalComment on above:Result Comment: Electronically Signed [...] in mGy = na DAP = naNormalFisher [facility] And HospitalIGP,APTIMA HPV,AGE GDLNon 79-89-1147NIF GDLN ACOG TESTINGNote.NOMS HealthcareComment on above:TESTS RESULT FLAG UNITS REF RANGE LAB Clinician Provided Cytology Information Source.............Cervix;Endocervix No. of containers..01 ThinPrep Vial Age Algo ACOG Rebecca... -03 05 FLAG LEGEND: L-Low Normal,H-High Normal,LL-Alert Low,HH-Alert High <-Panic Low,>-Panic High,A-Abnormal,AA-Critical Abnormal Performed at: 01 =G [facility] [address] [place] [address] Rosalia Harp MD, IGP, RFX APTIMA HPV ASCUNote.NOMS HealthcareComment on above:TESTS RESULT FLAG UNITS REF RANGE LAB DIAGNOSIS: 02 NEGATIVE FOR INTRAEPITHELIAL LESION OR MALIGNANCY. Specimen adequacy: 02 Satisfactory for evaluation. No endocervical component is identified. Performed by: 02 Hillray Campa, Manager Fraud ([facility]) . 02 Note: Note 02 The [...] Low,>-Panic High,A-Abnormal,AA-Critical Abnormal Performed at: [address] [facility] [address] [place] [address] Rosalia Harp MD, Performed at: =G - [facility] [address] [id number] Lead Mechanic: Rosalia Harp MD, Phone: [phone] Performed at: [facility] [address] [id number] Lead Mechanic: Rosalia Harp MD, Phone: [phone] BRUSH-SPATULA CERVIX ENDOCERVIX [facility] w/ Auto Diffon 02-11-6596Xyujpaixy/100 WBC (Bld)0.5 %Normal0.0-2.0[facility] NorthComment on above:Performed By: #### [id number] #### [facility] [address] [place] [address] 70298Cnmdlrnvg/Leukocytes Auto (Bld) [Pure # fraction]0.0 E9/LNormal 0.0-0.2FSt. Rita's HospitalComment on above:Performed By: #### [id number] #### [facility] [address] [place] [address]87[address]Swsyajkbyjs (Bld) [#/Vol]0.1 E9/LNormal0.0-0.5FSt. Rita's HospitalComment on above:Performed By: #### [id number] #### [facility] [address] [place] [address] 45145Rkxrrxvjpgr/100 WBC (Bld)1.1 %Normal0.0-8.0[facility] NorthComment on above:Performed By: #### [id number] #### [facility] [address] [place] [address] 38238Ukqerceizrc distribution width (RBC) [Ratio]13.1 %Normal 10.9-14.2FSt. Rita's HospitalComment on above:Performed By: #### [id number] #### [facility] [address] [place] [address] 17348Ewywloaxna (Bld) [Volume fraction]39.5 %Qpzoly59.0-46.0[facility] NorthComment on above:Performed By: #### [id number] #### [facility] [address] [place] [address]84[address]Ggzkbekokc (Bld) [Mass/Vol]13.8 g/qORufzmw45.0-16.0[facility] NorthComment on above:Performed By: #### [id number] #### [facility] [address] [place] [address] 08147Tlluqleabgf (Bld) [#/Vol]3.0 E9/LNormal1.0-4.0[facility] NorthComment on above:Performed By: #### [id number] #### [facility] [address] [place] [address] 42186Hlrmchumpdd/100 WBC (Bld)46.0 %Yiafoh31.0-50.0[facility] NorthComment on above:Performed By: #### [id number] #### [facility] [address] [place] [address] 51167SJB (RBC) [Entitic mass]32.4 glVcuwvy42.0-34.0[facility] NorthComment on above:Performed By: #### [id number] #### [facility] [address] [place] [address] 49347HPGI (RBC) [Mass/Vol]34.8 g/wAFlqtcy54.4-36.0[facility] NorthComment on above:Performed By: #### [id number] #### [facility] [address] [place] [address] 83079YFW (RBC) [Entitic vol]93.0 sNUrcvwq89.0-100.0[facility] NorthComment on above:Performed By: #### [id number] #### [facility] [address] [place] [address] 83428Isxhqvrnd (Bld) [#/Vol]0.4 E9/LNormal0.2-1.0[facility] NorthComment on above:Performed By: #### [id number] #### [facility] [address] [place] [address] 78740Xytvjwxvjqn (Bld) [#/Vol]3.0 E9/LNormal2.0-7.5FSt. Rita's HospitalComment on above:Performed By: #### [id number] #### [facility] [address] [place] [address] 00714Uuephhxtgwb/100 WBC (Bld)46.2 %Pwbrau00.0-75.0[facility] NorthComment on above:Performed By: #### [id number] #### [facility] [address], [place] [address]Ftszpvcb mean volume (Bld) [Entitic vol]8.7 fLNormal6.4-10.8 [facility] NorthComment on above:Performed By: #### [id number] #### [facility] [address], [place] [address]Wksopnjxl (Bld) [#/Vol]254.0 E9/LZvsooq028.0-500.0[facility] NorthComment on above:Performed By: #### [id number] #### [facility] [address] [place] [address] 10905FAF (Bld) [#/Vol]4.3 E12/LNormal4.3-5.9[facility] NorthComment on above:Performed By: #### [id number] #### [facility] [address] [place] [address] 884[address]YKU corrected for nucl RBC Auto (Bld) [#/Vol]6.5 E9/LNormal 4.0-11.0[facility] NorthComment on above:Performed By: #### [id number] #### [facility] [address] [place] [address] 35636UQVKIOPALFewdzsl By: SYSTEM SYSTEM on 73-36-9602Bsvxolv [Mass/Vol]4.7 g/dLNormal3.3 - 5.0 gm/dLRemisol ChemAlbumin/Globulin [Mass ratio] 2.0 {ratio}Normal1.1 - 2.2Remisol ChemALP [Catalytic activity/Vol]78 [iU]/d Gjhohz19 - 98 Int._Unit/LRemisol ChemALT No additional P-5'-P [Catalytic activity/Vol]26 [iU]/dNormal6 - 46 Int._Unit/LRemisol ChemAnion gap [Moles/Vol]8 mmol/LNormal6 - 16 mEq/LRemisol ChemAST [Catalytic activity/Vol]17 [iU]/dNormal 5 - 43 Int._Unit/LRemisol ChemBilirubin [Mass/Vol]0.6 mg/dLNormal0.0 - 1.1 mg/dL Remisol ChemCalcium [Mass/Vol]9.7 mg/dLNormal8.9 - 11.1 mg/dLRemisol Chem Chloride [Moles/Vol]104 mmol/SQefuoc234 - 111 mmol/LRemisol ChemCholesterol [Mass/Vol]198 mg/pJKsrlxc971 - 200 mg/dLRemisol ChemCholesterol in HDL [Mass/Vol]37 mg/dLInvalid Interpretation CodeRemisol ChemComment on above:Result Comment: '>= 60 LOW RISK' '<= 40 HIGH RISK'Cholesterol in LDL [Mass/Vol]141 mg/dLHigh<=129mg/dLRemisol ChemCholesterol in VLDL [Mass/Vol]62 mg/dLHigh7 - 40 mg/dLRemisol ChemCO2 [Moles/Vol]30 mmol/ZYgorps43 - 31 mmol/LRemisol ChemCreatinine [Mass/Vol]0.6 mg/dLNormal0.5 - 1.3 mg/dLRemisol XmpuoWAM215 mL/min/1.73 q7Fkevja >=59mL/min/1.73 e5Tieqmgw ChemGlobulin (S) [Mass/Vol]2.4 g/dLNormal1.4 - 4.0 gm/dLRemisol ChemGlucose [Mass/Vol]102 mg/eFScpsai77 - 199 mg/dLRemisol Chem Lipase [Catalytic activity/Vol]13 U/CBpudum65 - 58 unit/LRemisol ChemPotassium [Moles/Vol]4.4 mmol/LNormal3.5 - 5.3 mmol/LRemisol ChemProtein [Mass/Vol]7.1 g/dLNormal6.0 - 7.8 gm/dLRemisol ChemSodium [Moles/Vol]138 mmol/XCmycim791 - 145 mmol/LRemisol ChemTriglyceride [Mass/Vol]309 mg/dLHigh<=149mg/dLRemisol ChemTSH Qn1.11 m[IU]/LNormal0.34 - 5.60 mcIU/mLRemisol ChemUrea nitrogen [Mass/Vol]12 mg/dLNormal5 - 21 mg/dLRemisol ChemUrea nitrogen/Creatinine [Mass ratio]20 mg/mg Xoiaom16 - 20Remisol ChemCHEMISTRYOrdered By: Angy Rdz on 74-05-4764NpQ2t (Bld) [Mass fraction]4.9 %Normal<=5.9%[facility] ChemAutoSSCMPon 63-01-6011Ozqnctt [Mass/Vol]4.7 g/dLNormal3.3-5.0[facility] NorthComment on above: Performed By: #### [id number] #### [facility] [address] [place] [address] 815[address]Emyaxny/Globulin (S) [Mass conc ratio]2.6Pvjhdw7.1-2.2FSt. Rita's HospitalComment on above:Performed By: #### [id number] #### [facility] [address] [place] [address] 61988PGY [Catalytic activity/Vol]78 Int._Unit/NFlsetd21-38VartewPremier Health Miami Valley Hospital NorthComment on above:Performed By: #### [id number] #### [facility] [address] [place] [address]66[address]YST No additional P-5'-P [Catalytic activity/Vol]26 Int._Unit/L Normal6-46[facility] NorthComment on above:Performed By: #### [id number] #### [facility] [address], [place] [address]Alpsh gap [Moles/Vol]8 mmol/LNormal6-16[facility] NorthComment on above:Performed By: #### [id number] #### [facility] [address], [place] [address]WCV [Catalytic activity/Vol]17 Int._Unit/LNormal5-43[facility] NorthComment on above:Performed By: #### [id number] #### [facility] [address], [place] [address]Azsjvumoz [Mass/Vol]0.6 mg/dLNormal0.0-1.1FSt. Rita's HospitalComment on above:Performed By: #### [id number] #### [facility] [address], [place] [address]Prditiz [Mass/Vol]9.7 mg/dLNormal8.9-11.1FSt. Rita's HospitalComment on above:Performed By: #### [id number] #### [facility] [address], [place] [address]Wvjliumd [Moles/Vol]104 mmol/ZXhoeod714-949OwnwcsPremier Health Miami Valley Hospital NorthComment on above:Performed By: #### [id number] #### [facility] [address], [place] [address]UG3 [Moles/Vol]30 mmol/NIlfhft45-57QoqbnvPremier Health Miami Valley Hospital North Comment on above:Performed By: #### [id number] #### [facility] [address], [place] [address]Caflkmzqqe [Mass/Vol]0.6 mg/dLNormal0.5-1.3FSt. Rita's HospitalComment on above:Performed By: #### [id number] #### [facility] [address], [place] [address]Ieyollic (S) [Mass/Vol]2.4 g/dLNormal1.4-4.0[facility] NorthComment on above:Performed By: #### [id number] #### [facility] [address], [place] [address]Olvtoub [Mass/Vol]102 mg/aQEghrdu42-109ZafgbjPremier Health Miami Valley Hospital NorthComment on above:Performed By: #### [id number] #### [facility] [address], [place] [address]Udqmelbst [Moles/Vol]4.4 mmol/LNormal3.5-5.3FSt. Rita's HospitalComment on above:Performed By: #### [id number] #### [facility] [address], [place] [address]Ayviqus [Mass/Vol]7.1 g/dLNormal6.0-7.8[facility] NorthComment on above:Performed By: #### [id number] #### [facility] [address], [place] [address]Bejuvm [Moles/Vol]138 mmol/JZoskqz313-394UkejcoPremier Health Miami Valley Hospital NorthComment on above:Performed By: #### [id number] #### [facility] [address], [place] [address]Vmrv nitrogen [Mass/Vol]12 mg/dLNormal5-21[facility] NorthComment on above:Performed By: #### [id number] #### [facility] [address], [place] [address]Qzbf nitrogen/Creatinine [Mass ratio]20 No KjpimAvqnnq22-02 [facility] NorthComment on above:Performed By: #### [id number] #### [facility] [address], [place] [address]ZBGSQGGTNXUvnpwhh By: SYSTEM SYSTEM on 43-57-9477Edtftwtqg/100 WBC (Bld)0.5 %Normal0.0 - 2.0 %Remisol HemeBasophils/Leukocytes Auto (Bld) [Pure # fraction]0.0 E9/LNormal0.0 - 0.2 E9/LRemisol HemeEosinophils (Bld) [#/Vol]0.1 E9/LNormal0.0 - 0.5 E9/LRemisol HemeEosinophils/100 WBC (Bld)1.1 %Normal0.0 - 8.0 %Remisol HemeErythrocyte distribution width (RBC) [Ratio]13.1 %Mdoufh32.9 - 14.2 %Remisol HemeHematocrit (Bld) [Volume fraction]39.5 %Xuzkjo70.0 - 46.0 % Remisol HemeHemoglobin (Bld) [Mass/Vol]13.8 g/rDEmklrh07.0 - 16.0 gm/dLRemisol HemeLymphocytes (Bld) [#/Vol]3.0 E9/LNormal1.0 - 4.0 E9/LRemisol Heme Lymphocytes/100 WBC (Bld)46.0 %Crjyla49.0 - 50.0 %Remisol HemeMCH (RBC) [Entitic mass]32.4 krLahiom52.0 - 34.0 pgRemisol HemeMCHC (RBC) [Mass/Vol]34.8 g/dL Arjvpf51.4 - 36.0 gm/dLRemisol HemeMCV (RBC) [Entitic vol]93.0 pVEyxgpy91.0 - 100.0 fLRemisol HemeMonocytes (Bld) [#/Vol]0.4 E9/LNormal0.2 - 1.0 E9/LRemisol HemeMonocytes/100 WBC (Bld)6.2 %Normal4.0 - 14.0 %Remisol HemeNeutrophils (Bld) [#/Vol]3.0 E9/LNormal2.0 - 7.5 E9/LRemisol HemeNeutrophils/100 WBC (Bld)46.2 % Bvcdsp49.0 - 75.0 %Remisol HemePlatelet mean volume (Bld) [Entitic vol]8.7 fL Normal6.4 - 10.8 fLRemisol HemePlatelets (Bld) [#/Vol]254.0 E9/FIrbfdd427.0 - 500.0 E9/LRemisol HemeRBC (Bld) [#/Vol]4.3 E12/LNormal4.3 - 5.9 E12/LRemisol HemeWBC corrected for nucl RBC Auto (Bld) [#/Vol]6.5 E9/LNormal4.0 - 11.0 E9/L Remisol NfweGqgH7hoe 72-12-6963McU1h (Bld) [Mass fraction]4.9 %Normal<=5.9[facility] NorthComment on above:Performed By: #### [id number] #### [facility] [facility] [address] [place] [address]Icnypa Levelon 11-63-8420Ofrqsg [Catalytic activity/Vol]13 U/L Qczcbl35-93GeguyaPremier Health Miami Valley Hospital NorthComment on above:Performed By: #### [id number] #### [facility] [address], [place] [address]Dlmti Panelon 56-68-9393Qnkcddjhblc [Mass/Vol]198 mg/dLNormal 120-200Prem[facility] Hospital NorthComment on above:Performed By: #### [id number] #### [facility] [address], [place] [address]Ojutesfikho in HDL [Mass/Vol]37 mg/dLInvalid Interpretation CodePremier Health Miami Valley Hospital NorthComment on above:Result Comment: '>= 60 LOW RISK' '<= 40 HIGH RISK'Performed By: #### [id number] #### [facility] [address], [place] [address]Wporjwcazwp in LDL [Mass/Vol]141 mg/dLHigh<=129Prem[facility] Miami [facility] Hospital NorthComment on above:Performed By: #### [id number] #### [facility] [address], [place] [address]Edjfoefxvqf in VLDL [Mass/Vol]62 mg/dLHigh7-40Prem[facility] Hospital NorthComment on above:Performed By: #### [id number] #### [facility] [address], [place] [address]Zsgnxydzcxgo [Mass/Vol]309 mg/dLHigh<=149Prem[facility] Miami [facility] Hospital NorthComment on above:Performed By: #### [id number] #### [facility] [address], [place] [address]HSPpp 49-67-6141HZG Qn1.11 m[IU]/LNormal0.34-5.60Prem[facility] Hospital NorthComment on above:Performed By: #### 6108765 #### [facility] [address], [place] [address]hBZDfb 74-41-5183jDYR924 mL/min/1.73 p2Lzdcvb>=59Prem[facility] Miami [facility] Hospital NorthComment on above:Order Comment: Order added by Discern Expert. Performed By: #### [id number] #### [facility] [address] [place], [place] [address]NB Abdomen/Pelvis w/ Contraston [id number] Abdomen/Pelvis w/ ContrastExam Date/Time: 06/29/2023 22:13 EDT [...] Isovue 300 Contrast amount in ml's: 100NormalFisher [facility] And HospitalCT Head or Brain w/o Contraston 48-24-4187EZ Head or Brain w/o ContrastExam Date/Time: 06/29/2023 [...] Pk Foley M.D. Transcribed by: KEE Technologist: [facility] HospitalDischarge Instructionson 25-00-4202Pirqjnfjt Instructions [id number] [facility] Clinical Summaryon [id number] Clinical Summary [place] [id number] ED Clinical Summary Person Information Name: SOCORRO JOSEPH Alena/[facility] Age: 22 Years : 2000 Sex: Female Language: Bahraini PCP: Raquel Nolan MD Marital Status: Single [...] 06/30/2023 00:02:57 06/30/2023 00:02:57 06/30/2023 00:02:57 ADDRESS: [address] [place] [id number] PHYS DOC NOTES: MEDICAL INFORMATION: Prescriptions Given: New Medications [facility], [address] [place], [place] [id number], [phone] methocarbamol (Robaxin 500 mg Tab) 1 Tablets By Mouth 3 times a day for 3 Days. Refills: 0. naproxen (Naprosyn 500 mg Tab) 1 Tablets By Mouth 2 times a day as needed for pain. Refills: 0. Medications to Continue Taking That Have Changed [facility] 1987, [address] [place], [place] [id number], [phone] START: ondansetron (Zofran ODT 4 mg Tab-Dis) 1 Tablets By Mouth every 8 hours. Refills: 0. Other Medications START: ondansetron (Zofran ODT 4 mg Tab-Dis) 1 Tablets By Mouth every 8 hours as needed Nausea/Vomiting. Refills: 0. PATIENT EDUCATION INFORMATION: Instructions: Nausea and Vomiting, Adult, Ljxf-pr-Egyv; General Headache Without Cause, Ahjo-wl-Tcfy; Abdominal Pain, Adult, Iysq-jk-Zyxb Follow up: With: Address: When: Raquel [address] [place] [address] Business (1) In 3 days 07/02/2023 Comments: You can take the medications as prescribed as needed for pain. Please follow-up with your primary care doctor in the next 2 to 3 days for further evaluation management. Please return to the ED for any new or worsening symptoms. DIAGNOSIS: Abdominal pain, acute; Headache; N&V (nausea and vomiting)[facility] CenterED Patient Education Noteon 96-90-0628YC Patient Education Note Gastroenterology Nausea and Vomiting, [...] ? Low-calorie sports drinks. ? Eat bland, khlc-gd-zfstsh foods in small amounts as you are able, such as: ? Bananas. ? Applesauce. ? Rice. ? Low-fat (lean) meats. ? Savage. ? Crackers. ? Avoid drinking fluids that have a lot of sugar or caffeine in them. This includes energy drinks, sports drinks, and soda. ? Avoid alcohol. ? Avoid spicy or fatty foods. General instructions ? Take kvdn-wnq-kclmgnx and prescription medicines only as told by your doctor. ? Drink enough fluid to keep your pee (urine) pale yellow. ? Wash your hands often with soap and water for at least 20 seconds. If you cannot use soap and water, use hand compliance mgr. ? Make sure that everyone in your [...] doctor about eating and drinking. ? Take lvbh-xfh-llccksg and prescription medicines only as told by your doctor. ? Contact your doctor if your symptoms get worse or you have new symptoms. ? Keep all follow-up visits. This information is not intended to replace advice given to you by your health care provider. Make sure you discuss any questions you have with your health care provider. Document Revised: 09/26/2021 Document Reviewed: 09/26/2021 [employer]) Patient Education ? 2022 [employer] Abdominal Pain, Adult Many things can cause belly (abdominal) pain. Most times, belly pain is not dangerous. Many cases of belly pain can be watched and treated at home. Sometimes, though, belly pain is serious. Your doctor will try to find the cause of your belly pain. Follow these instructions at home: Medicines ? Take vdlb-ayh-eyrusgl and prescription medicines only as told by [...] not hungry, or y (more content not included)...[facility] Patient Summaryon [id number] Patient Summary [address] [address] Patient Discharge Instructions Person Information Name: SOCORRO JOSEPH Age: 22 Years Arrival Date: 06/29/2023 19:10:29 Discharge Diagnosis: Abdominal pain, acute; Headache; N&V (nausea and vomiting) Primary Care Physician: Raquel Nolan MD Provider Information Primary Provider: Amberly Whitehead DO Advanced Weigh Box Tender:None The exam and treatment you received in the Emergency Department were for an urgent problem and are not intended as complete care. It is important that you follow up with a doctor, nurse practitioner,or physician?s computer assistant for ongoing care. If your symptoms [...] With: Address: When: Raquel Nolan [place] [address] Business (1) In 3 days [...] Patient Education Materials: Nausea and Vomiting, Adult, Hpkr-cx-Qslz; General Headache Without Cause, Gxfk-ep-Dbjr; Abdominal Pain, Adult, Ltdq-lc-Ddrx A MESSAGE TO ALL PATIENTS REGARDING OPIOIDS PRESCRIPTION OPIOIDS: WHAT YOU NEED TO KNOW Prescription opioids can be used to help relieve guqgcmwz-vv-rbzrsn pain and are often prescribed following a [...] your community drug take- back program or yourMatchMine mail-back program, or flush them down the toilet, follow (more content not included)...[facility] Prescriptions/Work Noteson 62-49-8785Jlkpwchhpucqw/Work Notes [id number] VA Medical CenterRAD - Preliminary Cat Scan Reporton 80-27-1184MUK - Preliminary Cat Scan [id number]#1.00TIFChillicothe VA Medical CenterB hCG Qualon 15-56-7496Mlez HCG ( test) QlNegativeNormal [facility] Hospital NorthComment on above:Performed By: #### [id number], 61692237, 7558394, 2327063, 82764749, 2355318 ####[facility] [address] [place], [place] [address]MGOqm 49-02-3948Ktfgw gap [Moles/Vol] 9 mmol/LNormal6-16Prem[facility] Hospital NorthComment on above:Performed By: #### 5979040, 06928217, 1332351, 2032605, 47591788, 0295385 ####[facility] [address] [place], [place] [address]Oamxzub [Mass/Vol]9.0 mg/dL Normal8.9-11.1FSt. Rita's HospitalComment on above:Performed By: #### 4504993, 83494419, 2666750, 3478970, 80790338, 5329938 ####[facility] [address] [place], [place] [address]Wlkgcvuj [Moles/Vol]104 mmol/L Qltmmb513-940WjbnnbPremier Health Miami Valley Hospital NorthComment on above:Performed By: #### 5237286, 03355649, 3729815, 2031506, 27617289, 3366285 ####[address] [address]VG7 [Moles/Vol]27 mmol/LNormal 21-31Prem[facility] Hospital NorthComment on above:Performed By: #### 7117870, 59782768, 1049964, 1432535, 58245871, 3252465 ####[address] [address]Uvaphrspws [Mass/Vol]0.7 mg/dLNormal 0.5-1.3FSt. Rita's HospitalComment on above:Performed By: #### 1694284, 58315402, 8844001, 0477018, 74219166, 0472873 ####[address] [address]Ahhftnp [Mass/Vol]93 mg/dLNormal 55-199Prem[facility] Hospital NorthComment on above:Performed By: #### 9089070, 30897136, 5825083, 4114795, 72360791, 9528703 ####[address] [address]Cihqovjgn [Moles/Vol]3.7 mmol/LNormal 3.5-5.3FSt. Rita's HospitalComment on above:Performed By: #### 6132943, 37844780, 6024405, 4827012, 62858122, 7918445 ####[place] [address] [place], [place] [address]Tutzgk [Moles/Vol]136 mmol/LNormal 135-145Prem[facility] Hospital NorthComment on above:Performed By: #### 5699972, 78380732, 7463567, 8163177, 65876941, 9669090 ####[facility] [address] [place], [place] [address]Fzps nitrogen [Mass/Vol]13 mg/dL Normal5-21Prem[facility] Hospital NorthComment on above:Performed By: #### 8395258, 17877480, 8590042, 0939603, 16755715, 5140892 ####[facility] [address] [place], [place] [address]Gujm nitrogen/Creatinine [Mass ratio]19 No MfituNcwkjf97-17PjtrshPremier Health Miami Valley Hospital NorthComment on above: Performed By: #### 0691621, 99073659, 9044143, 0294924, 91563003, 5606382 ####[facility] [address] [place], [place] [address]KGU w/ Auto Diffon 47-80-3849Oupylyvtf/100 WBC (Bld)0.3 %Normal0.0-2.0Prem[facility] Hospital NorthComment on above:Order Comment: Per fidel Salter, wait to poke until they try for an IV. xmu727 06/29/2023 21:16:35 EDTPerformed By: #### 3786453, 08396533, 4895411, 7468404, 23279784, 9611251 ####[facility] [address] [place] [address]Vpajdebnv/Leukocytes Auto (Bld) [Pure # fraction]0.0 E9/LNormal0.0-0.2FSt. Rita's HospitalComment on above: Order Comment: Per fidel Salter, wait to poke until they try for an IV. jzi190 06/29/2023 21:16:35 EDTPerformed By: #### 1050904, 96167531, 8936604, 5712587, 30950789, 7634596 ####[facility] [address] [place], [place] [address]Vezfakrremg (Bld) [#/Vol]0.1 E9/LNormal0.0-0.5FSt. Rita's HospitalComment on above:Order Comment: Per fidel Salter, wait to poke until they try for an IV. oaf797 06/29/2023 21:16:35 EDTPerformed By: #### 6913457, 24732400, 2165389, 4867482, 42946899, 6545741 ####[facility] [address] [place], [place] [address]Thmqoplzmii/100 WBC (Bld)1.2 %Normal 0.0-8.0Prem[facility] Hospital NorthComment on above:Order Comment: Per fidel Salter, wait to poke until they try for an IV. mhy001 06/29/2023 21:16:35 EDT Performed By: #### 3406669, 01694131, 5962446, 2308048, 66364580, 6398496 ####[facility] [address] [place] [address] Erythrocyte distribution width (RBC) [Ratio]13.1 %Srbjhp60.9-14.2FSt. Rita's HospitalComment on above:Order Comment: Per fidel Salter, wait to poke until they try for an IV. dfo105 06/29/2023 21:16:35 EDTPerformed By: #### 0721528, 93546737, 0143171, 7740034, 10226002, 4562009 ####[place] [address] [place], [place] [address]Mtycezepal (Bld) [Volume fraction] 39.6 %Jaylni50.0-46.0Prem[facility] Hospital NorthComment on above:Order Comment: Per fidel Salter, wait to poke until they try for an IV. mxl630 06/29/2023 21:16:35 EDTPerformed By: #### 1852700, 11349067, 2031378, 3965695, 40785898, 2465541 ####[facility] [address] [place] [address] Hemoglobin (Bld) [Mass/Vol]13.2 g/xJYnmrkp27.0-16.0[facility] Comment on above:Order Comment: Per fidel Salter, wait to poke until they try for an IV. avx885 06/29/2023 21:16:35 EDTPerformed By: #### 1891958, 75584695, 7944762, 8783972, 11783316, 3726493 ####[facility] [address] [place], [place] [address]Jqkfvsrwoxb (Bld) [#/Vol]2.0 E9/L Normal1.0-4.0Prem[facility] Hospital NorthComment on above:Order Comment: Per fidel Salter, wait to poke until they try for an IV. upy211 06/29/2023 21:16:35 EDT Performed By: #### 3811462, 35639064, 9481149, 0461248, 57035234, 5660851 ####[facility] [address] [place] [address] Lymphocytes/100 WBC (Bld)22.0 %Vbzmgl49.0-50.0Prem[facility] Hospital NorthComment on above:Order Comment: Per fidel Salter, wait to poke until they try for an IV. utu112 06/29/2023 21:16:35 EDTPerformed By: #### 8253977, 32878197, 7312511, 4460784, 95568765, 9995930 ####[facility] [address] [place], [place] [address]KKZ (RBC) [Entitic mass]30.7 ptNrzxgs09.0-34.0 [facility] Hospital NorthComment on above:Order Comment: Per fidel Salter, wait to poke until they try for an IV. gvu265 06/29/2023 21:16:35 EDTPerformed By: #### 3816752, 06150448, 2874043, 6350822, 55695404, 5588294 ####[place] [address] [place], [place] [address]WQVD (RBC) [Mass/Vol] 33.3 g/bUGvffdj01.4-36.0Prem[facility] Hospital NorthComment on above:Order Comment: Per fidel Salter, wait to poke until they try for an IV. dea359 06/29/2023 21:16:35 EDTPerformed By: #### 4163976, 32935308, 4068120, 8741003, 07805289, 9202089 ####[facility] [address] [place], [place] [address]OHE (RBC) [Entitic vol]91.9 sGOsigkw78.0-100.0[facility] Comment on above:Order Comment: Per fidel Salter, wait to poke until they try for an IV. pvs438 06/29/2023 21:16:35 EDTPerformed By: #### 0088464, 29591208, 4638338, 7006974, 27089579, 8181213 ####[facility] [address] [place], [place] [address]Xifoqkksj (Bld) [#/Vol]0.4 E9/LNormal 0.2-1.0[facility] NorthComment on above:Order Comment: Per fidel Salter, wait to poke until they try for an IV. tvw336 06/29/2023 21:16:35 EDT Performed By: #### 5484870, 51939153, 7059033, 7718134, 86543893, 6645455 ####[facility] [address] [place] [address] Neutrophils (Bld) [#/Vol]6.5 E9/LNormal2.0-7.5FSt. Rita's HospitalComment on above:Order Comment: Per fidel Salter wait to poke until they try for an IV. ebm859 06/29/2023 21:16:35 EDTPerformed By: #### 7897473, 73831515, 1368528, 8773489, 87027361, 0739265 ####[facility] [address] [place], [place] [address]Jimzehyypmb/100 WBC (Bld)71.9 %Qtupht08.0-75.0 [facility] NorthComment on above:Order Comment: Per fidel Salter, wait to poke until they try for an IV. tqn434 06/29/2023 21:16:35 EDTPerformed By: #### 6732025, 35178162, 3406098, 6678127, 77243766, 6778901 ####[facility] [address], [place] [address]Eacgyvru639.0 E9/L Pgtztq862.0-500.0Prem[facility] Hospital NorthComment on above:Order Comment: Per fidel Salter, wait to poke until they try for an IV. uhi757 06/29/2023 21:16:35 EDT Performed By: #### 3167143, 25865750, 4213371, 9679712, 82488696, 1463248 ####[facility] [address] [place] [address] Platelet mean volume (Bld) [Entitic vol]8.2 fLNormal6.4-10.8[facility] Hospital NorthComment on above:Order Comment: Per fidel Salter wait to poke until they try for an IV. nfz311 06/29/2023 21:16:35 EDTPerformed By: #### 7924792, 53201075, 9253313, 4440049, 45920225, 1756549 ####[facility] [address] [place], [place] [address]YAG (Bld) [#/Vol]4.3 E12/LNormal 4.3-5.9[facility] Hospital NorthComment on above:Order Comment: Per fidel Salter wait to poke until they try for an IV. btz705 06/29/2023 21:16:35 EDT Performed By: #### 9892189, 15223055, 6766174, 8931843, 51893436, 1927140 ####[facility] [address] [place], [place] [address]WFS corrected for nucl RBC Auto (Bld) [#/Vol]9.0 E9/LNormal4.0-11.0[facility] NorthComment on above:Order Comment: Per fidel Salter wait to poke until they try for an IV. jke543 06/29/2023 21:16:35 EDTPerformed By: #### 9618244, 07476405, 1635046, 7048248, 24727172, 9483143 ####[facility] [address] [place], [place] [address]FUYVWQBWMJzwfojr By: SYSTEM SYSTEM on 75-88-6335Lhpgzra [Mass/Vol]4.3 g/dLNormal3.3 - 5.0 gm/dLRemisol Chem Albumin/Globulin [Mass ratio]2.0 {ratio}Normal1.1 - 2.2Remisol ChemALP [Catalytic activity/Vol]70 [iU]/nVywqls01 - 98 Int._Unit/LRemisol ChemALT No additional P-5'-P [Catalytic activity/Vol]29 [iU]/dNormal6 - 46 Int._Unit/L Remisol ChemAnion gap [Moles/Vol]9 mmol/LNormal6 - 16 mEq/LRemisol ChemAST [Catalytic activity/Vol]17 [iU]/dNormal5 - 43 Int._Unit/LRemisol ChemBilirubin [Mass/Vol]0.9 mg/dLNormal0.0 - 1.1 mg/dLRemisol ChemBilirubin.direct [Mass/Vol] 0.1 mg/dLNormal0.0 - 0.4 mg/dLRemisol ChemBilirubin.indirect [Mass or moles/Vol] 0.8 mg/dLNormal0.1 - 0.9 mg/dLRemisol ChemCalcium [Mass/Vol]9.0 mg/dLNormal8.9 - 11.1 mg/dLRemisol ChemChloride [Moles/Vol]104 mmol/NBpeubg466 - 111 mmol/L Remisol ChemCO2 [Moles/Vol]27 mmol/UXxnhla18 - 31 mmol/LRemisol ChemCreatinine [Mass/Vol]0.7 mg/dLNormal0.5 - 1.3 mg/dLRemisol FedwrSOH044 mL/min/1.73 c9Hiwyxx >=59mL/min/1.73 x2Vfvfvvn ChemGlobulin (S) [Mass/Vol]2.1 g/dLNormal1.4 - 4.0 gm/dLRemisol ChemGlucose [Mass/Vol]93 mg/xWOnvpvv03 - 199 mg/dLRemisol Chem Lipase [Catalytic activity/Vol]unit/LLow13 - 58 unit/LRemisol ChemPotassium [Moles/Vol]3.7 mmol/LNormal3.5 - 5.3 mmol/LRemisol ChemProtein [Mass/Vol]6.4 g/dLNormal6.0 - 7.8 gm/dLRemisol ChemSodium [Moles/Vol]136 mmol/OOhducc473 - 145 mmol/LRemisol ChemUrea nitrogen [Mass/Vol]13 mg/dLNormal5 - 21 mg/dLRemisol ChemUrea nitrogen/Creatinine [Mass ratio]19 mg/niNvlivh94 - 20Remisol Chem Consent for Treatmenton 92-57-3117Tbzbauy for Treatment [id number] New Kent Medical CenterED Note-Physicianon 11-94-0548XO Note-PhysicianBasic Information Time Seen: Amberly Whitehead DO [...] and Complexity of Problems Differential Diagnosis: [] [facility] Data External documents reviewed: [] My [...] day(s), # 9 tab(s), Refills(s) 0, [facility], cm, 06/29/23 19:28:00 EDT, Height/Length Dosing, 82, kg, 06/29/23 19:28:00 EDT, Weight Dosing metoclopramide, 10 mg = 2 mL, Injection, IV Push, Once, Stop date 06/29/23 21:00:00 EDT, STAT, Start date 06/29/23 21:00:00 EDT, 06/29/23 21:00:00 EDT naproxen, 500 mg = 1 tab(s), Oral, BID, PRN for pain, # 20 tab(s), Refills(s) 0, [facility], [facility], cm, 06/29/23 19:28:00 EDT, Height/Length Dosing, 82, kg, 06/29/23 19:28:00 EDT, Weight Dosing ondansetron, 4 mg = 1 tab(s), Oral, q8hr, # 12 tab(s), Refills(s) 0, [facility], [facility], cm, 06/29/23 19:28:00 EDT, [...] UA with Cult Rfl (more content not included)...[facility] Comment on above:Result Comment: Electronically Signed By: Amberly Whitehead DO\.br\Date and Time Signed: 06/29/23 23:56 EDTHEMATOLOGYOrdered By: SYSTEM SYSTEM on 39-79-7046Plwqzfowf/100 WBC (Bld)0.3 %Normal0.0 - 2.0 %Remisol Heme Basophils/Leukocytes Auto (Bld) [Pure # fraction]0.0 E9/LNormal0.0 - 0.2 E9/L Remisol HemeEosinophils (Bld) [#/Vol]0.1 E9/LNormal0.0 - 0.5 E9/LRemisol Heme Eosinophils/100 WBC (Bld)1.2 %Normal0.0 - 8.0 %Remisol HemeErythrocyte distribution width (RBC) [Ratio]13.1 %Cvefye97.9 - 14.2 %Remisol HemeHematocrit (Bld) [Volume fraction]39.6 %Ilynkq04.0 - 46.0 %Remisol HemeHemoglobin (Bld) [Mass/Vol]13.2 g/mVJoipin14.0 - 16.0 gm/dLRemisol HemeLymphocytes (Bld) [#/Vol] 2.0 E9/LNormal1.0 - 4.0 E9/LRemisol HemeLymphocytes/100 WBC (Bld)22.0 %Normal 14.0 - 50.0 %Remisol HemeMCH (RBC) [Entitic mass]30.7 bwAcrqof93.0 - 34.0 pg Remisol HemeMCHC (RBC) [Mass/Vol]33.3 g/lTShjuii44.4 - 36.0 gm/dLRemisol HemeMCV (RBC) [Entitic vol]91.9 dOSadqgr13.0 - 100.0 fLRemisol HemeMonocytes (Bld) [#/Vol]0.4 E9/LNormal0.2 - 1.0 E9/LRemisol HemeMonocytes/100 WBC (Bld)4.6 % Normal4.0 - 14.0 %Remisol HemeNeutrophils (Bld) [#/Vol]6.5 E9/LNormal2.0 - 7.5 E9/LRemisol HemeNeutrophils/100 WBC (Bld)71.9 %Kgjqla68.0 - 75.0 %Remisol Heme Xvtegzwm924.0 E9/LCukgoz197.0 - 500.0 E9/LRemisol HemePlatelet mean volume (Bld) [Entitic vol]8.2 fLNormal6.4 - 10.8 fLRemisol HemeRBC (Bld) [#/Vol]4.3 E12/L Normal4.3 - 5.9 E12/LRemisol HemeWBC corrected for nucl RBC Auto (Bld) [#/Vol] 9.0 E9/LNormal4.0 - 11.0 E9/LRemisol HemeHep Func Panelon 50-43-4771Fzrtzah [Mass/Vol]4.3 g/dLNormal3.3-5.0[facility] NorthComment on above: Performed By: #### 0601057, 83882787, 0307969, 4404199, 95722166, 9930203 ####[facility] [address] [place] [address] Albumin/Globulin (S) [Mass conc ratio]2.4Rvsooc7.1-2.2[facility] And HospitalComment on above:Performed By: #### 8264433, 26967298, 1565239, 7365703, 77541773, 5716458 ####[facility] [address] [place], [place] [address]ALM [Catalytic activity/Vol]70 Int._Unit/FJgbcmh56-85KqmlkjPremier Health Miami Valley Hospital NorthComment on above:Performed By: #### 5353006, 21490024, 3990642, 9253628, 04191961, 7020638 ####[address] [address]HZG No additional P-5'-P [Catalytic activity/Vol]29 Int._Unit/LNormal6-46[facility] NorthComment on above:Performed By: #### 0841272, 84007809, 8856873, 6307305, 81172105, 0500977 ####[address] [address]QAX [Catalytic activity/Vol]17 Int._Unit/LNormal5-43[facility] Comment on above:Performed By: #### 5580563, 42720241, 4926960, 9799200, 74344211, 7417795 ####[address] [address]Xfvsxrcwo [Mass/Vol]0.9 mg/dLNormal0.0-1.1FSt. Rita's HospitalComment on above:Performed By: #### 3853307, 58983012, 0400256, 6561318, 06735874, 6405679 ####[address] [address]Tqgqmqlma.direct [Mass/Vol]0.1 mg/dLNormal0.0-0.4 [facility] NorthComment on above:Performed By: #### 4911145, 87615982, 4837842, 9178103, 93128433, 4077743 ####[address] [address]Fknawpzyi.indirect [Mass or moles/Vol]0.8 mg/dLNormal0.1-0.9[facility] NorthComment on above: Performed By: #### 6556250, 48847036, 1440737, 2716389, 19503724, 3069506 ####[address] [address] Globulin (S) [Mass/Vol]2.1 g/dLNormal1.4-4.0[facility] NorthComment on above:Performed By: #### 3835630, 07653339, 6089281, 7837029, 07744446, 2468860 ####[facility] [address] [place], [place] [address]Yapghud [Mass/Vol]6.4 g/dLNormal6.0-7.8[facility] NorthComment on above:Performed By: #### [id number], [id number], [id number], [id number], [id number], [id number] ####[address] [address]Fclext [place] 16-02-6944Sduery [Catalytic activity/Vol][id number] Health [facility] Hospital NorthComment on above:Performed By: #### [id number], [id number], [id number], [id number], [id number], [id number] ####[facility] [address] [place] [address] 93969LIHQRZTURzthgcq By: Linh Wright on 95-50-7099Jsaw HCG ( test) QlNegative (06/29/23 9:29 PM)NormalINTEGRIS B[facility]IST [facility] [place] Man SeroUA with Cult Rflxon 72-17-7185Rwzsg (U) Light-YellowNormalYellowPremier Health Miami Valley Hospital NorthComment on above:Result Comment: Microscopic readings are only performed on those samples that meet specific criteria set forth by [facility] Laboratory.Performed By: #### [id number] ####[facility] Phmsikfqpt266 [facility], DM77596Xqvwhpi (U) [Mass/Vol]NegativeNormalNegativePremier Health Miami Valley Hospital NorthComment on above:Performed By: #### [id number] ####[facility] Mirwrdbkuf916 [facility], IK[address]Xojsjuo Ql (U)Negative NormalNegativePremier Health Miami Valley Hospital NorthComment on above:Performed By: #### [id number] ####[address], [place] [address]GI BloodNegativeNormalNegativePremier Health Miami Valley Hospital NorthComment on above: Performed By: #### [id number] ####[address], GV[address]PH BacteriaTraceNormalTracePremier Health Miami Valley Hospital NorthComment on above:Performed By: #### [id number] ####[address], [place] ClarityTurbidAbnormalClear [facility] Hospital NorthComment on above:Performed By: #### [id number] ####[address], [id number] Leuk EstNegativeNormalNegativePremier Health Miami Valley Hospital NorthComment on above: Performed By: #### [id number] ####[address], SV[address]KK MucousTraceNormalNegativePremier Health Miami Valley Hospital NorthComment on above:Performed By: #### [id number] ####[address], [id number] NitriteNegativeNormal NegativePremier Health Miami Valley Hospital NorthComment on above:Performed By: #### [id number] ####[address], [place] [address]MZ pH5.5Invalid Interpretation Code5.0-9.0[facility] Comment on above:Performed By: #### [id number] ####[address], [id number] ProteinNegativeNormalNegativePremier Health Miami Valley Hospital NorthComment on above:Performed By: #### [id number] ####[address], [id number] RBC0-3Normal 0-3[facility] And HospitalComment on above:Performed By: #### [id number] ####[facility] Mgjbdsbsmf9[address] Alb[address] AveNorrochester general hospitalk, [id number] Spec Grav1.017Invalid Interpretation Code1.005-1.030[facility] Comment on above:Performed By: #### [id number] ####[facility] Wzmvdatsrw7[address]Norwalk, FM[address]TD Squam Epithelial>91Qulyijrq0-8 [facility] NorthComment on above:Performed By: #### [id number] ####[facility] Fszrtzjjlt876 Alb[address] AveNconnecticut children[facility] medical center, [id number] UrobilinogenNegativeNormalNegativePremier Health Miami Valley Hospital NorthComment on above: Performed By: #### [id number] ####[place] [address] Alb[address] AveNconnecticut children's medical center, [id number] (U) [Mass/Vol]NegativeNormalNegative [facility] NorthComment on above:Performed By: #### [id number] ####[facility] Aplzhreaer284 [facility], TT46845TJ Spec DescClean CatchNormalPremier Health Miami Valley Hospital NorthComment on above:Performed By: #### [id number] ####[facility] Oknnuwzbgv9[address] [employer] Generationconnecticut children[facility] center, PM13140FNLBWHKEFTGgckjln By: SYSTEM SYSTEM on 63-60-4380Fuynt (U) Light-Yellow 1 (06/29/23 9:34 PM)NormalYellowINTEGRIS BAPTIST [facility] [place] UA Auto SSComment on above:Interpretive Data: Microscopic readings are only performed on those samples that meet specific criteria set forth by [facility] Laboratory.Glucose (U) [Mass/Vol]NegativeNormalNegativemg/dLFT UA Auto SSKetones Ql (U)NegativeNormal Negativemg/dLFT UA Auto SSUA BacteriaTrace graded/HPFNormalTracegraded/HPFFTMC UA Auto SSUA BloodNegativeNormalNegativemg/dLFT UA Auto SSUA ClarityTurbid *ABN* (06/29/23 9:34 PM)Invalid Interpretation CodeClearFTMC UA Auto SSUA Leuk Est NegativeNormalNegativeLeu/uLFT UA Auto SSUA MucousTrace graded/LPFNormal Negativegraded/LPFFTMC UA Auto SSUA NitriteNegativeNormalNegativemg/dLINTEGRIS BAPTIST [facility] [place] UA Auto SSUA pH5.5 *NA* (06/29/23 9:34 PM)Invalid Interpretation Code5.0 - 9.0[facility] [place] UA Auto SSUA Protein NegativeNormalNegativemg/dLINTEGRIS BAPTIST [facility] [place] UA Auto SSUA RBC0-3 graded/HPFNormal 0-3graded/HPFINTEGRIS BAPTIST MEDICAL C[facility] – [place] UA Auto SSUA Spec Grav1.017 *NA* (06/29/23 9:34 PM)Invalid Interpretation Code1.005 - 1.030[facility] [place] UA Auto SSUA Squam Epithelial>10 graded/HPFInvalid Interpretation Code0-2graded/HPFINTEGRIS BAPTIST [facility]ICAL C[facility] [place] UA Auto SS UA UrobilinogenNegativeNormalNegativemg/dLINTEGRIS BAPTIST [facility] [place] UA Auto SSUrobilinogen (U) [Mass/Vol]NegativeNormalNegativemg/dLINTEGRIS BAP[facility] [place] UA Auto SSURINALYSISOrdered By: Amberly Whitehead on 15-43-8608FV Spec DescClean Catch (06/29/23 9:34 PM)NormalINTEGRIS BAP[facility] [place] UA Auto SS eGFRon 05-60-2300pNXD562 mL/min/1.73 e5Ldkywx>=59Prem[facility] Hospital NorthComment on above:Order Comment: Order added by Discern Expert.Performed By: #### [id number], 30268146, 5943622, 9924004, 90413803, 2271118 ####[facility] [address] [place], [place] [address]Bogr Diffon 69-32-5665Mgfzmaaqi/100 WBC (Bld)0.6 %Normal0.0-2.0[facility] Hospital NorthComment on above:Order Comment: Order Added by Discern Expert.Performed By: #### [id number], 9955301, 9134943, 5551342, 1964024, 08131713, 5143089 ####[facility] Pptkrqnhqo542 [place] [address] Basophils/Leukocytes Auto (Bld) [Pure # fraction]0.0 E9/LNormal0.0-0.2FSt. Rita's HospitalComment on above:Order Comment: Order Added by Discern Expert.Performed By: #### [id number], 3026908, 0248955, 6228581, 7885094, 99258025, 6994221 ####[address] [address]Hxgfudkhjgw/100 WBC (Bld)0.8 %Normal0.0-8.0[facility] Hospital NorthComment on above:Order Comment: Order Added by Discern Expert. Performed By: #### 15160028, 8000720, 9457367, 0509353, 4207710, 73006801, 3178790 ####[address] [address]Xsvxeqibewc/Leukocytes Auto (Bld) [Pure # fraction]0.1 E9/LNormal0.0-0.5 [facility] NorthComment on above:Order Comment: Order Added by Discern Expert.Performed By: #### 81991373, 0977328, 9670309, 6455514, 9457848, 83931691, 9998907 ####[address] [address]Cbdoldmepwy/100 WBC (Bld)27.0 %Uboeal34.0-50.0[facility] Hospital NorthComment on above:Order Comment: Order Added by Discern Expert. Performed By: #### 79649472, 6358698, 3565514, 8713366, 0212563, 76665975, 2131448 ####[address] [address]Vnhfxnmwnaz/Leukocytes Auto (Bld) [Pure # fraction]1.8 E9/LNormal1.0-4.0 [facility] NorthComment on above:Order Comment: Order Added by Discern Expert.Performed By: #### 92247999, 8240871, 3875690, 0371194, 6866640, 14116310, 4046114 ####[address] [address]Gxidxcdwy/100 WBC (Bld)7.8 %Normal4.0-14.0[facility] Hospital NorthComment on above:Order Comment: Order Added by Discern Expert. Performed By: #### 68803456, 7287580, 7893772, 1224330, 4865652, 56968303, 2583701 ####[address] [address]Ijzmmhgnz/Leukocytes Auto (Bld) [Pure # fraction]0.5 E9/LNormal0.2-1.0 [facility] NorthComment on above:Order Comment: Order Added by Discern Expert.Performed By: #### 40036082, 5012544, 7201263, 3572912, 2377528, 75407771, 9398283 ####[address] [address]Jhoptruhmnw/100 WBC (Bld)63.8 %Kacihy08.0-75.0[facility] Hospital NorthComment on above:Order Comment: Order Added by Discern Expert. Performed By: #### 24368654, 9688332, 4853873, 8742603, 3026754, 26871247, 6447127 ####[address] [address]Eejsszdkcqj/Leukocytes Auto (Bld) [Pure # fraction]4.3 E9/LNormal2.0-7.5 [facility] NorthComment on above:Order Comment: Order Added by Discern Expert.Performed By: #### 62693389, 5103959, 6344745, 8286244, 1925989, 66990313, 0725147 ####[place] [address] [place], [place] [address]ATYik 09-42-8165Gqhwmwgscl [Mass/Vol]0.6 mg/dLNormal0.5-1.3 [facility] NorthComment on above:Performed By: #### 76858154, 3908730, 0835491, 3468139, 1762675, 18204267, 7309913 ####[facility] Revxyefjtq[address] [place], [place] [address]Fatl nitrogen [Mass/Vol]19 mg/dLNormal5-21Prem[facility] Hospital NorthComment on above:Performed By: #### 24850676, 1135015, 0388353, 3086688, 1252879, 99688802, 3701985 ####[facility] [address] [place], [place] [address]Qxcz nitrogen/Creatinine [Mass ratio]32 No OolfiJptc71-25NehzilPremier Health Miami Valley Hospital North Comment on above:Performed By: #### 64669586, 0983030, 5837141, 3827199, 7557304, 82836338, 0674717 ####[address] [address]Xgdig gap [Moles/Vol]8 mmol/LNormal6-16[facility] Hospital NorthComment on above:Performed By: #### 36653047, 9979868, 9791293, 6673253, 5884485, 29334510, 7065662 ####[place] [address] [place], [place] [address]Eifitnz [Mass/Vol]8.5 mg/dLLow8.9-11.1[facility] And HospitalComment on above:Performed By: #### 48742435, 4194417, 8993613, 5041532, 3094668, 96611654, 2127741 ####[facility] Rynhxgqtpa7[address] [place], [place] [address]Ahkrkcks [Moles/Vol]107 mmol/EEiobmr490-386OtuzxuPremier Health Miami Valley Hospital NorthComment on above:Performed By: #### 91915714, 6361894, 6394920, 3375153, 5800765, 31677499, 3514693 ####[facility] Dhjaihhbyr[address] [place], [place] [address]PN0 [Moles/Vol]25 mmol/CMlcnws07-28ParkvyPremier Health Miami Valley Hospital NorthComment on above:Performed By: #### 09805347, 5594699, 9794462, 3503325, 4602935, 52353713, 4023578 ####[facility] Evujyihevk[address] [place], [place] [address]Egorrdl [Mass/Vol]93 mg/uVZcntap12-394QwphznPremier Health Miami Valley Hospital NorthComment on above:Result Comment: If this glucose result represents a fasting glucose, interpretation should refer tothe following reference range: 55-99 mg/dLPerformed By: #### 56445602, 4179753, 8866157, 4116974, 0578172, 20529504, 7158642 ####[place] [address] [place], [place] [address]Anypddayq [Moles/Vol]3.4 mmol/LLow3.5-5.3FSt. Rita's HospitalComment on above:Performed By: #### 35660468, 4823041, 8639825, 7507211, 6022738, 69076784, 4582399 ####[address] [address]Elzlmh [Moles/Vol]137 mmol/LNormal 135-145Prem[facility] Hospital NorthComment on above:Performed By: #### 70883346, 9414221, 7335094, 9307327, 5991911, 80213116, 3225507 ####[address] [address]EMS w/ Auto Diffon 02-16-2023 Erythrocyte distribution width (RBC) [Ratio]13.0 %Zwygzp75.9-14.2FSt. Rita's HospitalComment on above:Performed By: #### 01610779, 3879077, 4174032, 2169491, 6578969, 40646574, 5763966 ####[address] [address]Arfnburweh (Bld) [Volume fraction]41.4 %Normal 34.0-46.0[facility] Hospital NorthComment on above:Performed By: #### 13248413, 5604027, 0847256, 3099573, 2387701, 68977747, 7138754 ####[address] [address]Osohdkhhnf (Bld) [Mass/Vol]13.9 g/iEAduxzy33.0-16.0[facility] Hospital NorthComment on above: Performed By: #### 17023655, 5176649, 1111591, 6364623, 8017248, 34424388, 8634221 ####[address] [address]DIL (RBC) [Entitic mass]31.0 icGolscm82.0-34.0[facility] Comment on above:Performed By: #### 03635573, 3324218, 9449142, 8386573, 0173755, 82854971, 0270125 ####[address] [address]FQAJ (RBC) [Mass/Vol]33.6 g/tMMumqlr62.4-36.0[facility] Hospital NorthComment on above:Performed By: #### 46835134, 6468680, 2463082, 3048585, 2663215, 34732255, 2590153 ####[address] [address]MIQ (RBC) [Entitic vol]92.3 jICvcygc01.0-100.0 [facility] NorthComment on above:Performed By: #### 90757587, 3515404, 5900082, 1763884, 4634656, 38855432, 2299904 ####[address] [address]Woszswib mean volume (Bld) [Entitic vol]9.7 fLNormal6.4-10.8[facility] Hospital NorthComment on above: Performed By: #### 34391997, 1748420, 6482615, 0796077, 5050483, 91709430, 9442278 ####[place] [address] [place], [place] [address]Ryjsmeqmm (Bld) [#/Vol]254.0 E9/KWdnoep560.0-500.0[facility] NorthComment on above:Performed By: #### 83880124, 4402923, 4832811, 6591879, 4350367, 52384150, 1969081 ####[address] [address]TFN (Bld) [#/Vol]4.5 E12/LNormal4.3-5.9[facility] Hospital NorthComment on above:Performed By: #### 87292878, 1582862, 0999614, 9163823, 1855842, 63544998, 5953881 ####Yonas [address] [address]YKX corrected for nucl RBC Auto (Bld) [#/Vol]6.7 E9/LNormal 4.0-11.0[facility] Hospital NorthComment on above:Performed By: #### 88403449, 8684462, 0638693, 9452196, 8590081, 17444764, 6504863 ####[address] [address]CNYSROLZGEurjbtc By: SYSTEM SYSTEM on 35-56-9437Vcgslkz [Mass/Vol]3.9 g/dLNormal3.3 - 5.0 gm/dLFTMC Remisol Albumin/Globulin [Mass ratio]1.4 {ratio}Normal1.1 - 2.2FTMC RemisolALP [Catalytic activity/Vol]86 [iU]/yWdxsqm22 - 98 Int._Unit/LFTMC RemisolALT No additional P-5'-P [Catalytic activity/Vol]18 [iU]/dNormal6 - 46 Int._Unit/LFTMC RemisolAnion gap [Moles/Vol]8 mmol/LNormal6 - 16 mEq/LFTMC RemisolAST [Catalytic activity/Vol]14 [iU]/dNormal5 - 43 Int._Unit/LFTMC RemisolBilirubin [Mass/Vol] 1.0 mg/dLNormal0.0 - 1.1 mg/dLFT RemisolBilirubin.direct [Mass/Vol]0.2 mg/dL Normal0.1 - 0.4 mg/dLFT RemisolBilirubin.indirect [Mass or moles/Vol]0.8 mg/dL Normal0.1 - 0.9 mg/dLFT RemisolCalcium [Mass/Vol]8.5 mg/dLLow8.9 - 11.1 mg/dL [facility] RemisolChloride [Moles/Vol]107 mmol/FQzmpsa031 - 111 mmol/LFTMC RemisolCO2 [Moles/Vol]25 mmol/OCmhgsa01 - 31 mmol/LFTMC RemisolCreatinine [Mass/Vol]0.6 mg/dLNormal0.5 - 1.3 mg/dLFTMC RemisolGFR/1.73 sq M.predicted among non-blacks MDRD (S/P/Bld) [Vol rate/Area]128 mL/min/1.73 u0Ykrkmk>=59mL/min/1.73 m2[facility] [place] Chem SComment on above:Interpretive Data: Chronic kidney disease could be indicated at eGFR's of less than 60 mL/min/1.73m2. Kidney failure is indicated at less than 15 mL/min/1.73m2.Globulin (S) [Mass/Vol]2.8 g/dLNormal1.4 - 4.0 gm/dLFT RemisolGlucose [Mass/Vol]93 mg/yJAzlqgg49 - 199 mg/dLFTMC Remisol Comment on above:Interpretive Data: If this glucose result represents a fasting glucose, interpretation should referto the following reference range: 55-99 mg/dLLipase [Catalytic activity/Vol]22 U/BHdjqfe64 - 58 unit/LFTMC Remisol Potassium [Moles/Vol]3.4 mmol/LLow3.5 - 5.3 mmol/LFTMC RemisolProtein [Mass/Vol] 6.7 g/dLNormal6.0 - 7.8 gm/dLFT RemisolSodium [Moles/Vol]137 mmol/BUlgzmb460 - 145 mmol/LFTMC RemisolTroponin I.cardiac [Mass/Vol]pg/mLLow10.10 - 27.10 pg/mL FTMC RemisolComment on above:Interpretive Data: The 95% CI (Confidence Interval) PPV (Positive Predictive Value) for myocardial infarction in females is 38 pg/mL, in males 51 pg/mL. The results should be used in conjunction withclinical conditions of myocardial infarction. (Access High Sensitivity Troponin I Instructions For Use, Lianna Paris, November 2017)Urea nitrogen [Mass/Vol]19 mg/dLNormal5 - 21 mg/dLFT RemisolUrea nitrogen/Creatinine [Mass ratio]32 mg/dhEvsd70 - 20FT RemisolConsent for Treatmenton 62-25-3746Qhzwjin for Treatment [id number]#1.00Wayne HospitalDischarge Instructionson 65-14-7845Ntqijwqyc Instructions [id number]#1.00TIFCommunity [facility] Clinical Summaryon 90-77-5373RJ Clinical Summary [place] [id number] ED Clinical Summary Person Information Name: SOCORRO JOSEPH Alena/[facility] Age: 22 Years : 2000 Sex: Female Language: Bahraini PCP: Lilliam Gonzalez MD Marital Status: Single [...] 02/16/2023 07:09:21 02/16/2023 07:09:21 02/16/2023 07:09:21 ADDRESS: [address] [place] [id number] PHYS DOC NOTES: MEDICAL INFORMATION: Prescriptions Given: New Medications [facility] 1988, [address] [place] [id number], [phone] ondansetron (Zofran ODT 4 mg Tab-Dis) 1 Tablets By Mouth every 8 hours as needed Nausea/Vomiting. Refills: 0. PATIENT EDUCATION INFORMATION: Instructions: Nausea and Vomiting, Adult Follow up: With: Address: When: Lilliam Gonzalez [address] [place] [address] Business (1) In 3 days DIAGNOSIS: Diarrhea; N&V (nausea and vomiting); SyncopeNormalFisher New Kent Medical CenterED Note-Physicianon [id number] Note-PhysicianBasic Information Time Seen: Jacinto Mendiola DO [...] and Complexity of Problems Differential Diagnosis: [] [facility] Data External documents reviewed: N/A My [...] Information Lilliam Gonzalez In 3 days [address] [place] [address] Business (1) Additional Instructions: Patient Education Nausea [...] Substance Abuse - Isaac (more content not included)...[facility]Comment on above:Result Comment: Electronically Signed By: Jacinto Mendiola DO\.br\Date and Time Signed: 02/16/23 06:54 PAULETTE Patient Education Noteon 42-05-7894BZ Patient Education NoteGastroenterology Nausea and Vomiting, Adult [...] added (diluted fruit juice). ? Eat bland, dlon-dc-qodhxd foods in small amounts as you are able. These foods include bananas, applesauce, rice, lean meats, toast, and crackers. ? Avoid fluids that contain a lot of sugar or caffeine, such as energy drinks, sports drinks, and soda. ? Avoid alcohol. ? Avoid spicy or fatty foods. General instructions ? Take ugav-ifi-viihgpj and prescription medicines only as told by your health care provider. ? Drink enough fluid to keep your urine pale yellow. ? Wash your hands often using soap and water for at least 20 seconds. If soap and water are not available, use hand compliance mgr. ? Make sure that everyone in your [...] and drinking to prevent dehydration. ? Take uzqc-gya-xfqyzau and prescription medicines only as told by [...] Reviewed: 09/26/2021 Elsevier Patient Education ? 2022 [employer].[facility] ED Patient Summaryon [id number] Patient Summary [address] [address] Patient Discharge Instructions Person Information Name: SOCORRO JOSEPH Age: 22 Years Arrival Date: 02/16/2023 05:05:22 Discharge Diagnosis: Diarrhea; N&V (nausea and vomiting); Syncope Primary Care Physician: Lilliam Gonzalez MD Provider Information Primary Provider: Jacinto Mendiola DO Advanced Weigh Box Tender:None The exam and treatment you received in the Emergency Department were for an urgent problem and are not intended as complete care. It is important that you follow up with a doctor, nurse practitioner,or physician?s computer assistant for ongoing care. If your symptoms [...] With: Address: When: Lilliam Gonzalez [address] [place] [address] Business (1) In 3 days In the event that this physician does not participate in your insurance network, please consult with your insurance company to find a nearby participating provider. Patient Education Materials: Nausea and Vomiting, Adult A MESSAGE TO ALL PATIENTS REGARDING OPIOIDS PRESCRIPTION OPIOIDS: WHAT YOU NEED TO KNOW Prescription opioids can be used to help relieve ncgfqhxv-fp-wodboq pain and are often prescribed following a [...] your community drug take- back program or yourSequoia Pharm[employer]rm[employer] mail-back program, or flush them down the toilet, following guidance from the Food and Drug Administration (www.fda.gov/Drugs/ResourcesForYou). ? Visit www.cdc.gov/drugoverdose to learn about the risks of opioids abuse and overdose. ? If you believe you may be struggling with addiction, tell your health live in caregiver and ask for guidance or call [facility]?S National Helpline at 0-124-322-FJBW. p [facility] (more content not included)...[facility] HEMATOLOGYOrdered By: SYSTEM SYSTEM on 76-10-5047Ziiikwfis/100 WBC (Bld)0.6 % Normal0.0 - 2.0 %[facility] HemeAutoSSBasophils/Leukocytes Auto (Bld) [Pure # fraction]0.0 E9/LNormal0.0 - 0.2 E9/LFTMC HemeAutoSSEosinophils/100 WBC (Bld)0.8 %Normal0.0 - 8.0 %FT HemeAutoSSEosinophils/Leukocytes Auto (Bld) [Pure # fraction]0.1 E9/LNormal0.0 - 0.5 E9/LFTMC HemeAutoSSLymphocytes/100 WBC (Bld) 27.0 %Mgbxcf87.0 - 50.0 %FT HemeAutoSSLymphocytes/Leukocytes Auto (Bld) [Pure # fraction]1.8 E9/LNormal1.0 - 4.0 E9/LFTMC HemeAutoSSMonocytes/100 WBC (Bld)7.8 %Normal4.0 - 14.0 %FT HemeAutoSSMonocytes/Leukocytes Auto (Bld) [Pure # fraction]0.5 E9/LNormal0.2 - 1.0 E9/LFTMC HemeAutoSSNeutrophils/100 WBC (Bld) 63.8 %Veqmvn68.0 - 75.0 %[facility] HemeAutoSSNeutrophils/Leukocytes Auto (Bld) [Pure # fraction]4.3 E9/LNormal2.0 - 7.5 E9/LFTMC HemeAutoSSHEMATOLOGYOrdered By: Case Aponte on 65-79-0893Bnavtexbdoi distribution width (RBC) [Ratio]13.0 % Tmrrpf72.9 - 14.2 %[facility] HemeAutoSSHematocrit (Bld) [Volume fraction]41.4 %Normal 34.0 - 46.0 %[facility] HemeAutoSSHemoglobin (Bld) [Mass/Vol]13.9 g/fGDxprlh51.0 - 16.0 gm/dLFTMC HemeAutoSSMCH (RBC) [Entitic mass]31.0 ihAodlap09.0 - 34.0 pgFTMC HemeAutoSSMCHC (RBC) [Mass/Vol]33.6 g/lAGzqjvn43.4 - 36.0 gm/dLFTMC HemeAutoSS MCV (RBC) [Entitic vol]92.3 sIOeprcr68.0 - 100.0 fLFTMC HemeAutoSSPlatelet mean volume (Bld) [Entitic vol]9.7 fLNormal6.4 - 10.8 fLFTMC HemeAutoSSPlatelets (Bld) [#/Vol]254.0 E9/WXqkdqg623.0 - 500.0 E9/LFTMC HemeAutoSSRBC (Bld) [#/Vol] 4.5 E12/LNormal4.3 - 5.9 E12/LFTMC HemeAutoSSWBC corrected for nucl RBC Auto (Bld) [#/Vol]6.7 E9/LNormal4.0 - 11.0 E9/LFTMC HemeAutoSSHep Func Panelon 62-37-8950Mcrzqeq [Mass/Vol]3.9 g/dLNormal3.3-5.0[facility] Comment on above:Performed By: #### 51989245, 9384649, 4665099, 7865884, 6161997, 78029554, 8824099 ####[facility] [address]xtcyt[address] [place], [place] [address]Azsojxv/Globulin (S) [Mass conc ratio]1.0Kiahjy1.1-2.2 [facility] NorthComment on above:Performed By: #### 73684049, 4780945, 4356883, 6718918, 6863350, 30529673, 5982886 ####[address] [address]OMU [Catalytic activity/Vol]86 Int._Unit/IGnufby80-05WrgawzPremier Health Miami Valley Hospital NorthComment on above:Performed By: #### 67702969, 5216101, 2133060, 1729542, 8495330, 46558475, 5409340 ####[address] [address]FWX No additional P-5'-P [Catalytic activity/Vol]18 Int._Unit/LNormal6-46[facility] NorthComment on above:Performed By: #### 17333499, 1545768, 8678465, 0881952, 1417952, 61131301, 0204055 ####[address] [address]DPS [Catalytic activity/Vol]14 Int._Unit/LNormal5-43[facility] NorthComment on above:Performed By: #### 77579021, 4828519, 3174775, 8631206, 9435676, 24901538, 0418435 ####[address] [address]Dmrsacimy [Mass/Vol]1.0 mg/dLNormal 0.0-1.1FSt. Rita's HospitalComment on above:Performed By: #### 69789846, 5236024, 7248697, 4983550, 8448474, 07593785, 1737582 ####[address] [address]Plgdomugc.direct [Mass/Vol]0.2 mg/dLNormal0.1-0.4FSt. Rita's HospitalComment on above:Performed By: #### 53566770, 9830671, 2959624, 4930186, 0659983, 12284355, 3167331 ####[facility] [address] [place] [address] Bilirubin.indirect [Mass or moles/Vol]0.8 mg/dLNormal0.1-0.9[facility] NorthComment on above:Performed By: #### 07706603, 4143690, 0881443, 5813340, 0553218, 65725367, 1784115 ####[address] [address]Njydmwjk (S) [Mass/Vol]2.8 g/dLNormal1.4-4.0[facility] NorthComment on above:Performed By: #### [id number], [id number], 7467278, 7907926, 0948496, [id number], [id number] ####[address] [address]Jihgvvu [Mass/Vol]6.7 g/dLNormal6.0-7.8[facility] Hospital NorthComment on above:Performed By: #### [id number], [id number], 0208254, 8271968, 5341054, [id number], [id number] ####[address] [address]Yvimha Levelon 16-83-4502Rjfsxb [Catalytic activity/Vol]22 U/QHupucl83-62YfmaqsPremier Health Miami Valley Hospital NorthComment on above:Performed By: #### [id number], 0334288, 7769589, 0180717, 6231332, [id number], [id number] ####[address] [address]Wzrhnxqoynknh/Work Noteson 91-63-1507Lomypprskbnzs/Work Notes [id number]#1.00TIFFNormalPremier Health Miami Valley Hospital NorthTroponin 0 Hr.on 87-25-0246Tomjgvty I.cardiac [Mass/Vol]ng/mLLow 10.10-27.10[facility] Hospital NorthComment on above:Result Comment: The 95% CI (Confidence Interval) PPV (Positive Predictive Value) for myocardial infa rction in females is 38 pg/mL, in males 51 pg/mL. The results should be used in conjunction with clinical conditions of myocardial infarction. (Access High Sensitivity Troponin I Instructions For Use, Lianna Alejandra, November 2017)Performed By: #### [id number], 7952734, 9475436, 7806328, 8076613, 64326000, 6623696 ####[facility] [address] [place], [place] [address]aCYSsm 58-66-4638SSF/1.73 sq M.predicted among non-blacks MDRD (S/P/Bld) [Vol rate/Area]128 mL/min/1.73 a8Mxjalt>=59Prem[facility] Hospital NorthComment on above:Order Comment: Order added by Discern Expert.Result Comment: Chronic kidney disease could be indicated at eGFR's of less than 60 mL/min/1.73m2. Kidney failure is indicated at less than 15 mL/min/1.73m2. Performed By: #### [id number], 2909529, 7306114, 7945221, 1004525, [id number], 6963577 ####[facility] [address] [place], [place] [address]Hufuhv Medicine Office/Clinic Noteon 08-90-3738Ucimeh Medicine Office/Clinic NoteChief Complaint EST rt foot [...] created with voice recognition software. Occasional wrong-word or?jcyke-t-mbni? substitutions may have occurred due to the inherent limitations of voice recognitionsoftware. 22 yo female presents today with cc of foot pain following injury. 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 She states it [...] An LOERA, Raquel Penny [address] [place] [address]- Additional Instructions: Patient Education Contusion, Woqj-fc-Zrms Problem List/Past Medical History Ongoing Depression Smoker Historical Smoker Supervision of normal (more content not included)...[facility] HospitalComment on above:Result Comment: Electronically Signed By: Timothy TREVIZO, Tony Bhatia\.br\Date and Time Signed: 12/19/2315:13 EDTPatient Educationon 28-29-8958Toittwz EducationOrthopedics Contusion A contusion is a deep [...] sittingor lying down. General instructions ? Take xtwf-uaf-aiuorta and prescription medicines only as told by [...] also called RICE. You may be given flml-fur-uyxkzum medicines for pain. ? Contact a doctor [...] Reviewed: 01/15/2022 Elsevier Patient Education ? 2022 [employer] XR Ankle 3+ Views Righton [id number] Ankle 3+ Views RightExam Date/Time: 12/18/2022 15:56 [...] Ka,r in mGy = na DAP = [facility]XR Foot [facility]+ Views Righton 01-08-7735WM Foot 3+ Views RightExam Date/Time: 12/18/2022 15:56 [...] Ka,r in mGy = na DAP = [facility] ColumbusCB AUTO DIFFon [id number] #0.1 103/ulNormal0.0-0.1[facility] HospitalComment on above:Performed By: #### CBC #### [facility] [address] [address] [address] Janett PlataBasophils/100 WBC (Bld)1.1 %Normal0.2-2.0[facility] Comment on above:Performed By: #### CBC #### [facility] [address] [place] [address] Dr. Janett Tinsley #0.1 103/ulNormal0.0-0.7The [facility] HospitalComment on above: Performed By: #### CBC #### [facility] [address] [place] [address] Dr. Janett Babcockosinophils/100 WBC (Bld)1.7 %Normal0.9-7.0[facility] Comment on above:Performed By: #### CBC #### [facility] [address] [place] [address] Dr. Janett Babcockrythrocyte distribution width (RBC) [Ratio]12.6 %Cwsjzd90.0-15.0 The [facility] HospitalComment on above:Performed By: #### CBC #### [facility] [address] [place] [address] Dr. Janett PlataHematocrit (Bld) [Volume fraction]41.0 %Krctea95.0-48.0The [facility] HospitalComment on above:Performed By: #### CBC #### [facility] [address] [place] [address] Dr. Janett PlataHemoglobin (Bld) [Mass/Vol]13.3 g/yXUgxnzi63.0-16.0The [facility] HospitalComment on above:Performed By: #### CBC #### [facility] [address] [place] [address] Dr. Janett Gonzales #0.02 10e3/ulNormal0.00-0.03The [facility] HospitalComment on above:Performed By: #### CBC #### [facility] [address] [place] [address] Dr. Janett Gonzales %0.3 %Normal0.0-0.5The [facility] HospitalComment on above: Performed By: #### CBC #### [facility] [address] [place] [address] Dr. Janett An #2.8 103/ulNormal1.2-3.8The [facility] HospitalComment on above:Performed By: #### CBC #### [facility] [address] [place] [address] Dr. Janett Aburtohocytes/100 WBC (Bld)40.6 %Fnimbs20.5-60.0The [facility] HospitalComment on above:Performed By: #### CBC #### [facility] [address] [place] [address] Dr. Janett Murdock DIFF REQNONormalThe [facility] HospitalComment on above: Performed By: #### CBC #### [facility] [address] [place] [address] Dr. Janett Elam (RBC) [Entitic mass]30.4 ycRcikiz21.7-34.0The [facility] HospitalComment on above:Performed By: #### CBC #### [facility] [address] [place] [address] Dr. Janett Chamorro (RBC) [Mass/Vol]32.4 g/wVDtjmkr99.9-35.2The [facility] HospitalComment on above:Performed By: #### CBC #### [facility] [address] [place] [address] Dr. Janett Cortez (RBC) [Entitic vol]93.8 yZDiknyz24.0-99.0The [facility] HospitalComment on above:Performed By: #### CBC #### [facility] [address] [place] [address] Dr. Janett Richard #0.4 103/ulNormal0.3-0.8The [facility] HospitalComment on above:Performed By: #### CBC #### [facility] [address] [place] [address] Dr. Yilan ChangMonocytes/100 WBC (Bld)5.4 %Normal1.7-12.0[facility] Comment on above:Performed By: #### CBC #### [facility] [address] [place] [address] Dr. Janett Gacria #3.6 103/ulNormal1.4-6.5The [facility] HospitalComment on above:Performed By: #### CBC #### [facility] [address] [place] [address] Dr. Janett Fletcherutrophils/100 WBC (Bld)50.9 %Buouff18.0-75.0The [facility] HospitalComment on above:Performed By: #### CBC #### [facility] [address] [place] [address] Dr. Janett Gallo mean volume (Bld) [Entitic vol]10.2 fLNormal9.5-13.5The [facility] HospitalComment on above:Performed By: #### CBC #### [facility] [address] [place] [address] Dr. Janett BoyceT267 103/evEpsmzr349-299End [facility] HospitalComment on above: Performed By: #### CBC #### [facility] [address] [place] [address] Dr. Janett BoseC4.37 106/ulNormal4.20-5.40The [facility] HospitalComment on above:Performed By: #### CBC #### [facility] [address] [place] [address] Dr. Janett WoodsBC7.0 103/ulNormal4.0-11.0The [facility] HospitalComment on above: Performed By: #### CBC #### [facility] [address] [place] [address] Dr. Janett Babin QUANT HCGon 79-96-9917LYQ QUANT<1NormalThe [facility] Comment on above:Performed By: #### PREGQNT #### [facility] [address] [place] [address] Dr. Janett San RANGESEE [facility] HospitalComment on above: Result Comment: 5-50 0.2-1 WEEK 50-500 1-2 WEEKS 100-5,000 2-3 WEEKS 500-10,000 3-4 WEEKS 1,000-50,000 4-5 WEEKS 10,000-100,000 5-6 WEEKS 15,000-200,000 6-8 WEEKS 10,000-100,000 2-3 MONTHSPerformed By: #### PREGQNT #### [facility] [address] [place] [address] Dr. Janett PlataXR CHEST 2 Von 06-25-2872OK CHEST 2 VEXAMINATION: XR CHEST 2 V [...] Electronically authenticated by: BAO DESIR Date: 2022-06-10 10:31[facility] HospitalCNOVon [id number] Visit (CALEB) SOCORRO JOSEPH ([id number]) 2000 F Date Time Provider Department 11/06/21 1:30 PM FERNANDA SOUZA During your visit today, we recorded the following information about you: Fernanda Souza APRN.ICE SKATING COACH 11/06/2021 1:17 PM Signed 1. Stay hydrated [...] Current Outpatient Medications M (more content not included)...NormalWood County HospitalTORY PHYSICAL on 76-94-4086XFMECBX PHYSICALHNO ID: [id number] Author: Fernanda Souza APRN.ICE SKATING COACH Service: ? Author Type: Nurse Practitioner Type: [...] or e (more content not included)...NormalUniversity [facility]als [facility] SERUMon 87-15-0231Drmsylxkkbjrvlbdrbadis (DHEA)234 ng/rNZjiffx45-286Ral [facility] HospitalComment on above:Result Comment: Age 1 - 5 years 0 - 67 6 - 7 years 0 - 110 8 - 10 years 0 - 185 11 - 12 years 0 - 201 13 - 14 years 0 - 318 15 - 16 years 39 - 481 17 - 19 years 40 - 491 >19 years 31 - 701Performed By: #### DHEA. #### [facility] [address] [place] [address] Dr. Janett PlataUS PELVIS AND TRANSVAGon 92-05-3324MZ PELVIS AND TRANSVAG EXAMINATION: US PELVIS AND [...] Electronically authenticated by: EVELIA LLAMAS Date: 2021-10-21 08:09NoBet[facility]-SULFATEon 11-60-9687QPUE-Opmgtcq380.0 ug/dLNormal 110.0-431.7The [facility] HospitalComment on above:Performed By: #### DHEASUL ####[facility] [address] [address]Dr. Janett Barone 38-12-5102GNV5.3 mIU/mLNormalMercy Health St. Elizabeth Boardman HospitalComment on above:Result Comment: Adult Female: Follicular phase 3.5 - 12.5 Ovulation phase 4.7 - 21.5 Luteal phase 1.7 - 7.7 Postmenopausal 25.8 - 134.8Performed By: #### LBCFSH #### [facility] [address] [place] [address] Dr. Janett PlataLUTEINIZING HORMONE (LH)on 53-45-1636EV50.9 mIU/mLNormalMercy Health St. Elizabeth Boardman HospitalComment on above:Result Comment: Adult Female: Follicular phase 2.4 - 12.6 Ovulation phase 14.0 - 95.6 Luteal phase 1.0 - 11.4 Postmenopausal 7.7 - 58.5Performed By: #### LBCLH #### [facility] [address] [place] [address] Dr. Janett Adhikari AUTO DIFFon [id number] #0.0 103/ulNormal0.0-0.1[facility] HospitalComment on above:Performed By: #### CBC #### [facility] [address] [place] [address] Dr. Janett PlataBasophils/100 WBC (Bld)0.4 %Normal0.2-2.0[facility] Comment on above:Performed By: #### CBC #### [facility] [address] [place] [address] Dr. Janett Tinsley #0.1 103/ulNormal0.0-0.7The [facility] HospitalComment on above: Performed By: #### CBC #### [facility] [address] [place] [address] Dr. Janett Babcockosinophils/100 WBC (Bld)1.1 %Normal0.9-7.0[facility] Comment on above:Performed By: #### CBC #### [facility] [address] [place] [address] Dr. Janett Babcockrythrocyte distribution width (RBC) [Ratio]12.1 %Wphutm67.0-15.0 The [facility] HospitalComment on above:Performed By: #### CBC #### [facility] [address] [place] [address] Dr. Janett PlataHematocrit (Bld) [Volume fraction]39.9 %Isdktj30.0-48.0The [facility] HospitalComment on above:Performed By: #### CBC #### [facility] [address] [place] [address] Dr. Janett PlataHemoglobin (Bld) [Mass/Vol]13.0 g/dTFmutso04.0-16.0The [facility] HospitalComment on above:Performed By: #### CBC #### [facility] [address] [place] [address] Dr. Janett Gonzales #0.02 10e3/ulNormal0.00-0.03The [facility] HospitalComment on above:Performed By: #### CBC #### [facility] [address] [place] [address] Dr. Janett Gonzales %0.2 %Normal0.0-0.5The [facility] HospitalComharbor beach community hospital on above: Performed By: #### CBC #### [facility] [address] [place] [address] Dr. Janett AburtoH #2.9 103/ulNormal1.2-3.8The [facility] HospitalComment on above:Performed By: #### CBC #### [facility] [address] [place] [address] Dr. Janett Hallmphocytes/100 WBC (Bld)32.0 %Qjhdot19.5-60.0The [facility] HospitalComment on above:Performed By: #### CBC #### [facility] [address] [place] [address] Dr. Janett CruzUAL DIFF REQNONormalThe [facility] HospitalComment on above: Performed By: #### CBC #### [facility] [address] [place] [address] Dr. Janett Chamorro (RBC) [Entitic mass]31.0 obQpvbqt35.7-34.0The [facility] HospitalComment on above:Performed By: #### CBC #### [facility] [address] [place] [address] Dr. Janett Chamorro (RBC) [Mass/Vol]32.6 g/tJSngcnc55.9-35.2The [facility] HospitalComment on above:Performed By: #### CBC #### [facility] [address] [place] [address] Dr. Janett Chamorro (RBC) [Entitic vol]95.2 rTSllpsf52.0-99.0The [facility] HospitalComment on above:Performed By: #### CBC #### [facility] [address] [place] [address] Dr. Janett Richard #0.5 103/ulNormal0.3-0.8The [facility] HospitalComment on above:Performed By: #### CBC #### [facility] [address] [place] [address] Dr. Janett Morrisonocytes/100 WBC (Bld)5.3 %Normal1.7-12.0[facility] Comment on above:Performed By: #### CBC #### [facility] [address] [place] [address] Dr. Janett Garcia #5.5 103/ulNormal1.4-6.5The [facility] HospitalComment on above:Performed By: #### CBC #### [facility] [address] [place] [address] Dr. Janett Fletcherutrophils/100 WBC (Bld)61.0 %Qhdtbq77.0-75.0The [facility] HospitalComment on above:Performed By: #### CBC #### [facility] [address] [place] [address] Dr. Janett Saleemlet mean volume (Bld) [Entitic vol]9.5 fLNormal9.5-13.5The [facility] HospitalComment on above:Performed By: #### CBC #### [facility] [address] [address] [address] Janett PlataPLT227 103/gcMnrorl813-408Bny [facility] HospitalComment on above: Performed By: #### CBC #### [facility] [id number] Janett PlataRBC4.19 106/ulCritically low4.20-5.40The [facility] HospitalComment on above:Performed By: #### CBC #### [facility] [address] [address] [address] Janett PlataWBC9.1 103/ulNormal4.0-11.0The [facility] HospitalComment on above: Performed By: #### CBC #### [facility] [address] [place] [address] Dr. Janett Goodwin 70-44-8805YDI4.507 uIU/mLNormal0.358-3.740The [facility] HospitalComment on above:Performed By: #### TSH #### [facility] [address] [place] [address] Dr. Janett PlataURINALYSISOrdered By: Linh Wright on 05-48-9191Rfaadnmzl Ql (U)Negative (09/18/21 1:25 AM)NormalNegativeIN[facility] [place] UA Auto SSClarity (U)Clear (09/18/21 1:25 AM)NormalClearFLAKESIDE [facility] [place] UA Auto SSColor (U)Yellow (09/18/21 1:25 AM)NormalYellowINTEGRIS BAPTIST [facility] [place] UA Auto SSEpithelial cells.squamous LM.HPF (Urine sed) [#/Area]0-2 /HPFNormal0-2/HPFMC UA Auto SSGlucose Test strip (U) [Mass/Vol]Negative (09/18/21 1:25 AM)NormalNegativeINTEGRIS [facility] [place] UA Auto SSHemoglobin Ql (U)Negative (09/18/21 1:25 AM)NormalNegativeIN[facility]GR[facility] [place] UA Auto SSKetones (U) [Mass/Vol]Negative (09/18/21 1:25 AM)NormalNegativeINTE[facility] [place] UA Auto SSLithium.plasma/[place].RBC (Bld) [Mass ratio]0-3 /HPFNormal0-3/HPFINTEGRIS BAPT[facility] [place] UA Auto SSNitrite Ql (U)Negative (09/18/21 1:25 AM)NormalNegativeINTEGRIS [facility] [place] UA Auto SSpH (U)6.5 *NA* (09/18/21 1:25 AM)Invalid Interpretation Code5.0 - 9.0[facility] [place] UA Auto SSProtein (U) [Mass/Vol]Negative (09/18/21 1:25 AM)NormalNegativeINTEGRIS [facility] [place] UA Auto SSSpecific gravity (U) [Rel density] <=1.005 *NA* (09/18/21 1:25 AM)Invalid Interpretation Code1.005 - 1.030[facility] [place] UA Auto SSUA Spec DescClean Catch (09/18/21 1:25 AM)NormalINTEGRIS [facility]AP[facility] [place] UA Auto SSUrobilinogen Qn (U)0.5690503 {Paco'U}/dLNormal0.0 - 1.0 EU/dLINTEGRIS [facility]AP[facility] [place] UA Auto SSWBC Auto Ql (U)Negative (09/18/21 1:25 AM)NormalNegativeINTEGR[facility] [place] UA Auto SSWBC LM.HPF (Urine sed) [#/Area]0-5 /HPFNormal0-5/HPFINTEGRIS BAPT[facility] [place] UA Auto SSCHEMISTRYOrdered By: SYSTEM SYSTEM on 64-16-5284Ddeqjgo [Mass/Vol]4.5 g/dLNormal3.3 - 5.0 gm/dLINTEGRIS [facility] [place] Remisol Albumin/Globulin [Mass ratio]1.6 {ratio}Normal1.1 - 2.2[facility] RemisolALP [Catalytic activity/Vol]71 [iU]/nCvibrj03 - 98 Int._Unit/LFTMC RemisolALT No additional P-5'-P [Catalytic activity/Vol]27 [iU]/dNormal6 - 46 Int._Unit/LFTMC RemisolAnion gap [Moles/Vol]14 mmol/LNormal6 - 16 mEq/LFT[facility] RemisolAST [Catalytic activity/Vol]32 [iU]/dNormal5 - 43 Int._Unit/LFT[facility] RemisolBilirubin [Mass/Vol]0.6 mg/dLNormal0.0 - 1.1 mg/dLFTMC RemisolBilirubin.direct [Mass/Vol] mg/dLNormal0.1 - 0.4 mg/dLFTMC RemisolBilirubin.indirect [Mass or moles/Vol] Unable to Calculate mg/dLInvalid Interpretation Code0.1 - 0.9 mg/dLFTMC Remisol Calcium [Mass/Vol]9.2 mg/dLNormal8.9 - 11.1 mg/dLFTMC RemisolChloride [Moles/Vol]105 mmol/RWltrls798 - 111 mmol/LFTMC RemisolCO2 [Moles/Vol]23 mmol/L Fzxdsi55 - 31 mmol/LFTMC RemisolCreatinine [Mass/Vol]0.6 mg/dLNormal0.5 - 1.3 mg/dLFTMC RemisolGFR/1.73 sq M.predicted among blacks MDRD (S/P/Bld) [Vol rate/Area]mL/min/1.73 d8Xintrs>=59mL/min/1.73 m2[facility] Chem SGFR/1.73 sq M.predicted among non-blacks MDRD (S/P/Bld) [Vol rate/Area]mL/min/1.73 f6Pybbte >=59mL/min/1.73 m2[facility] Chem SGlobulin (S) [Mass/Vol]2.8 g/dLNormal1.4 - 4.0 gm/dLFTMC RemisolGlucose [Mass/Vol]109 mg/sTIpuoii16 - 199 mg/dLFTMC Remisol Lipase [Catalytic activity/Vol]23 U/KGeqxut94 - 58 unit/LFTMC RemisolPotassium [Moles/Vol]3.5 mmol/LNormal3.5 - 5.3 mmol/LFTMC RemisolProtein [Mass/Vol]7.3 g/dLNormal6.0 - 7.8 gm/dLFTMC RemisolSodium [Moles/Vol]138 mmol/TJavxbj031 - 145 mmol/LFTMC RemisolUrea nitrogen [Mass/Vol]10 mg/dLNormal5 - 21 mg/dLFTMC RemisolUrea nitrogen/Creatinine [Mass ratio]17 mg/uxZyrnzz94 - 20[facility] Remisol HEMATOLOGYOrdered By: SYSTEM SYSTEM on 99-76-2873Tudthibts/100 WBC (Bld)0.4 % Normal0.0 - 2.0 %[facility] HemeAutoSSBasophils/Leukocytes Auto (Bld) [Pure # fraction]0.0 E9/LNormal0.0 - 0.2 E9/LFTMC HemeAutoSSEosinophils/100 WBC (Bld)0.7 %Normal0.0 - 8.0 %[facility] HemeAutoSSEosinophils/Leukocytes Auto (Bld) [Pure # fraction]0.1 E9/LNormal0.0 - 0.5 E9/LFTMC HemeAutoSSLymphocytes/100 WBC (Bld) 33.7 %Jhtaix84.0 - 50.0 %[facility] HemeAutoSSLymphocytes/Leukocytes Auto (Bld) [Pure # fraction]3.6 E9/LNormal1.0 - 4.0 E9/LFTMC HemeAutoSSMonocytes/100 WBC (Bld)6.4 %Normal4.0 - 14.0 %[facility] HemeAutoSSMonocytes/Leukocytes Auto (Bld) [Pure # fraction]0.7 E9/LNormal0.2 - 1.0 E9/LFTMC HemeAutoSSNeutrophils/100 WBC (Bld) 58.8 %Nmyebv56.0 - 75.0 %[facility] HemeAutoSSNeutrophils/Leukocytes Auto (Bld) [Pure # fraction]6.3 E9/LNormal2.0 - 7.5 E9/LFTMC HemeAutoSSHEMATOLOGYOrdered By: Coretta Tony on 02-42-0844Vhxtctyyhsd distribution width (RBC) [Ratio]13.1 %Vabpzt22.9 - 14.2 %[facility] HemeAutoSSHematocrit (Bld) [Volume fraction]41.1 %Ruyckx70.0 - 46.0 %[facility] HemeAutoSSHemoglobin (Bld) [Mass/Vol]14.0 g/tIEwnmoo61.0 - 16.0 gm/dL [facility] HemeAutoSSMCH (RBC) [Entitic mass]31.8 kvZngsyj34.0 - 34.0 pgFTMC HemeAutoSSMCHC (RBC) [Mass/Vol]34.1 g/tKNpxxbj21.4 - 36.0 gm/dLINTEGRIS [facility] [place] HemeAutoSS MCV (RBC) [Entitic vol]93.2 vPCmqsyq26.0 - 100.0 fLINTEGRIS BAPTIST [facility] [place] HemeAutoSSPlatelet mean volume (Bld) [Entitic vol]8.4 fLNormal6.4 - 10.8 fLINTEGRIS BAPTIST [facility] [place] HemeAutoSSPlatelets (Bld) [#/Vol]233.0 E9/CHkozvn861.0 - 500.0 E9/LFTMC HemeAutoSSRBC (Bld) [#/Vol] 4.4 E12/LNormal4.3 - 5.9 E12/LFTMC HemeAutoSSWBC corrected for nucl RBC Auto (Bld) [#/Vol]10.7 E9/LNormal4.0 - 11.0 E9/LFTMC HemeAutoSSMICRO OTHER TESTS Ordered By: Coretta Tony on 98-86-9359Udlbif Bld StlNegative (09/17/21 10:40 PM)NormalNegativeINTEGRIS [facility] [place] Man SeroSEROLOGYOrdered By: Linh Wright on 19-47-9715Hony hCG QlNegative (09/17/21 10:42 PM)NormalINTEGRIS BAP[facility] [place] Man SeroBLOOD BANKOrdered By: Coretta Tony on 78-28-7261GMZ/Rh InterpPositiveInvalid Interpretation CodeINTEGRIS BAPTIST [facility] [place] BB Subsection CHEMISTRYOrdered By: SYSTEM SYSTEM on 28-10-1734Lwdhh gap [Moles/Vol]12 mmol/L Normal6 - 16 mEq/LFT[facility] RemisolCalcium [Mass/Vol]9.1 mg/dLNormal8.9 - 11.1 mg/dL [facility] [place] RemisolChloride [Moles/Vol]103 mmol/LYvvued633 - 111 mmol/LFTMC RemisolCO2 [Moles/Vol]24 mmol/TAvkvzu51 - 31 mmol/LFTMC RemisolCreatinine [Mass/Vol]0.5 mg/dLNormal0.5 - 1.3 mg/dLINTEGRIS BAP[facility] [place] RemisolGFR/1.73 sq M.predicted among blacks MDRD (S/P/Bld) [Vol rate/Area]mL/min/1.73 q7Bhsybw>=59mL/min/1.73 m2FT Chem S GFR/1.73 sq M.predicted among non-blacks MDRD (S/P/Bld) [Vol rate/Area] mL/min/1.73 p3Qcdroa>=59mL/min/1.73 m2IN[facility] [place] Chem SGlucose [Mass/Vol]114 mg/dL Lqlwwi26 - 199 mg/dLFTMC RemisolPotassium [Moles/Vol]3.6 mmol/LNormal3.5 - 5.3 mmol/LFTMC RemisolSodium [Moles/Vol]135 mmol/OHwrxop870 - 145 mmol/LFTMC Remisol Urea nitrogen [Mass/Vol]17 mg/dLNormal5 - 21 mg/dLFTMC RemisolUrea nitrogen/Creatinine [Mass ratio]34 mg/euVqup66 - 20[facility] RemisolCOAGULATION Ordered By: Charlotte Rosales on 59-98-5762yRQR Coag (PPP) [Time]36.1 sNormal 25.1 - 36.5 second(s)[facility] Auto CoagINR Coag (PPP) [Relative time]1.0 {INR} Invalid Interpretation CodeFTMC Auto CoagPT Coag (PPP) [Time]12.3 gAeyfvp48.2 - 12.9 second(s)[facility] Auto CoagHEMATOLOGYOrdered By: SYSTEM SYSTEM on 07-16-2021 Basophils/100 WBC (Bld)0.4 %Normal0.0 - 2.0 %[facility] HemeAutoSSBasophils/Leukocytes Auto (Bld) [Pure # fraction]0.0 E9/LNormal0.0 - 0.2 E9/LFTMC HemeAutoSS Eosinophils/100 WBC (Bld)0.8 %Normal0.0 - 8.0 %[facility] HemeAutoSS Eosinophils/Leukocytes Auto (Bld) [Pure # fraction]0.1 E9/LNormal0.0 - 0.5 E9/L [facility] HemeAutoSSLymphocytes/100 WBC (Bld)39.8 %Dzuaqd47.0 - 50.0 %[facility] HemeAutoSS Lymphocytes/Leukocytes Auto (Bld) [Pure # fraction]2.6 E9/LNormal1.0 - 4.0 E9/L [facility] HemeAutoSSMonocytes/100 WBC (Bld)5.8 %Normal4.0 - 14.0 %[facility] HemeAutoSS Monocytes/Leukocytes Auto (Bld) [Pure # fraction]0.4 E9/LNormal0.2 - 1.0 E9/L [facility] HemeAutoSSNeutrophils/100 WBC (Bld)53.2 %Upuywx94.0 - 75.0 %[facility] HemeAutoSS Neutrophils/Leukocytes Auto (Bld) [Pure # fraction]3.5 E9/LNormal2.0 - 7.5 E9/L [facility] HemeAutoSSHEMATOLOGYOrdered By: Coretta Tony on [id number] distribution width (RBC) [Ratio]13.3 %Gpzugk98.9 - 14.2 %[facility] HemeAutoSS Hematocrit (Bld) [Volume fraction]38.5 %Ytikjr32.0 - 46.0 %[facility] HemeAutoSS Hemoglobin (Bld) [Mass/Vol]13.1 g/fYFhncsy86.0 - 16.0 gm/dLFTMC HemeAutoSSMCH (RBC) [Entitic mass]31.4 ajGwdohj47.0 - 34.0 pgFTMC HemeAutoSSMCHC (RBC) [Mass/Vol]34.2 g/bJWmenlo25.4 - 36.0 gm/dLFT[facility] HemeAutoSSMCV (RBC) [Entitic vol] 92.0 zKGlrsse82.0 - 100.0 fLFTMC HemeAutoSSPlatelet mean volume (Bld) [Entitic vol]8.6 fLNormal6.4 - 10.8 fLFTMC HemeAutoSSPlatelets (Bld) [#/Vol]213.0 E9/L Gbvxcq790.0 - 500.0 E9/LFTMC HemeAutoSSRBC (Bld) [#/Vol]4.2 E12/LLow4.3 - 5.9 E12/LFTMC HemeAutoSSWBC corrected for nucl RBC Auto (Bld) [#/Vol]6.6 E9/LNormal 4.0 - 11.0 E9/LFTMC HemeAutoSSSEROLOGYOrdered By: Charlotte Rosales on 05-76-8012HCM.beta subunit (U) [Moles/Vol]NegativeNormalFTMC Man SeroURINALYSIS Ordered By: Charlotte Rosales on 54-22-4458Dbotjwvfu Ql (U)Negative (07/16/21 3:20 PM)NormalNegativeIN[facility] [place] Auto SSClarity (U)Clear (07/16/21 3:20 PM)NormalClearFLAKESIDE [facility] [place] Auto SSColor (U)Yellow (07/16/21 3:20 PM)NormalYellowINTEGRIS BAPTIST [facility] [place] Auto SSEpithelial cells.squamous LM.HPF (Urine sed) [#/Area]0-2 /HPFNormal0-2/HPFINTEGRIS BAP[facility]IST [facility] [place] Auto SSGlucose Test strip (U) [Mass/Vol]Negative (07/16/21 3:20 PM)NormalNegativeINTEGRIS [facility] [place] [facility] Auto SSHemoglobin Ql (U)1+ *ABN* (07/16/21 3:20 PM)Invalid Interpretation CodeNegativeINTEGRIS [facility] [place] Auto SSKetones (U) [Mass/Vol]Negative (07/16/21 3:20 PM)NormalNegativeINTEGRIS [facility] [place] Auto SSLithium.plasma/[place].RBC (Bld) [Mass ratio]4-20 /HPFNormal0-3/HPFINTEGRIS BAPTIST [facility] [place] Auto SSNitrite Ql (U)Negative (07/16/21 3:20 PM)NormalNegativeINTEGR[facility] [place] Auto SSpH (U)7.0 *NA* (07/16/21 3:20 PM)Invalid Interpretation Code5.0 - 9.0[facility] [place] [facility] Auto SSProtein (U) [Mass/Vol]Negative (07/16/21 3:20 PM)NormalNegativeINTEGRIS [facility] [place] Auto SSSpecific gravity (U) [Rel density] 1.010 *NA* (07/16/21 3:20 PM)Invalid Interpretation Code1.005 - 1.030[facility] [place] UA Auto SSUA Spec DescClean Catch (07/16/21 3:20 PM)NormalINTEGRIS [facility]AP[facility]IST [facility] [place] Auto SSUrobilinogen Qn (U)0.0070083 {Paco'U}/dLNormal0.0 - 1.0 EU/dLINTEGRIS BAPTIST [facility] [place] Auto SSWBC Auto Ql (U)Negative (07/16/21 3:20 PM)NormalNegativeINTE[facility] [place] Auto SSWBC LM.HPF (Urine sed) [#/Area]0-5 /HPFNormal0-5/HPFINTEGRIS [facility] [place] Auto SSProgress Noteon [id number] Authentication Interface Message ElainaMichaelle for ReferralSocorro, her partner Uli, her mother and sister were seen on 07/05/[address] [facility] by myself and [...] Ultrasound Amniocentesis Maternal serum cell-free DNA screening [place] carrier screeningFollowing our discussion Socorro elected to have: Ultrasound only and declined additional screening and testing.Ultrasound FindingsThe ultrasound was consistent with prior ultrasound dating. 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 Otherwise the ultrasound was unremarkable. The cervicallength was in the normal range. Please refer to the ultrasound report for fulldetails.Follow-up No follow-up in [facility] necessary unless additional concerns arise. [...] indicated. Mitch Phillips MD and Alix Hendricks [facility] Vital Signs Date TimeVital SignValuePerforming IhdavquixIdehahik45-16-9584 10:48-0400Body mass index (BMI) [Ratio]28.4 kg/i6Hzkhp Miryam DO Work Phone: [facility] HospitalHklrlffjoa64-80-4849 10:48-0400Body kdwlel49.73 kgCorey Miryam DO Work Phone: [facility] [place] HospitalLlqgetdjyx67-28-8200 10:48-0400Diastolic blood ytgczroj49 mm[Hg]Shaan Miryam DO Work Phone: [facility] [place] HospitalJhmhpoxekm16-61-0975 10:48-0400Systolic blood lmeecbik129 mm[Hg]Shaan Miryam DO Work Phone: [phone])[facility] [place], [place] [address]Aoseilohvb81-26-7861 15:27-0400Body mass index (BMI) [Ratio]27.64 kg/m2Amy Filemon PA Work Phone: [phone] [place], [place] [address]Labcxiqwqs67-57-3841 15:27-0400Body juakoj12.46 kgAmy Filemon PA Work Phone: [phone] [place], [place] [address]Pnvccxqmmd81-53-0372 15:27-0400Diastolic blood mm[Hg]Nia Filemon PA Work Phone: [phone])[phone] [place], [place] [address]Bvhxtwlvbr91-97-0487 15:27-0400Systolic blood xeprckhu805 mm[Hg]Nia Colbert PA Work Phone: [facility] HospitalTpanxqpcov85-04-3973 12:38-0400Body .7 cmRaquel Nolan MD Work Phone: [facility] HospitalHyihsianom79-24-9863 12:38-0400Body mass index (BMI) [Ratio]27.25 kg/g9XusnhRaquel Nolan MD Work Phone: [facility] HospitalJfzrhiaipy06-15-7926 12:38-0400Body temperature 98.2 [degF]Raquel Nolan MD Work Phone: [facility] HospitalQjnvhtorqw69-96-7509 12:38-0400Body yunrtd18.28 kgRaquel Nolan MD Work Phone: [facility] HospitalNojiokyhtm32-77-7769 12:38-0400Diastolic blood aiwpfgle51 mm[Hg]Raquel Nolan MD Work Phone: [facility] HospitalSaopscgdnz01-50-8634 12:38-0400Heart rate71 /min Raquel Nolan MD Work Phone: [facility] [place] HospitalOjrdbxtxex50-41-3735 12:38-6561CpR1% (BldA) [Mass fraction]98 %Raquel Nolan MD Work Phone: [facility] [place] HospitalCtlxatoild92-49-3112 12:38-0400Systolic blood hcuxrcst984 mm[Hg]Raquel Nolan MD Work Phone: [phone] [place] HospitalUyqxzfzxzl03-91-8961 10:46-0400Body ikgrjn677.7 cmRaquel Nolan MD Work Phone: [facility] HospitalOercnvxrkb25-44-4063 10:46-0400Body mass index (BMI) [Ratio]26.94 kg/m7DwkwjRaquel Nolan MD Work Phone: 1(312)228-[address] [place], [place] [address]Rujgxeyaao31-90-9011 10:46-0400Body temperature 98.2 [degF]Raquel Nolan MD Work Phone: [phone])368-[address] [place], [place] [address]Zibnooogjw06-89-5100 10:46-0400Body ranrzx46.38 kgRaquel Nolan MD Work Phone: [facility] HospitalZtkabwyspm98-80-5485 10:46-0400Diastolic blood isxklobx02 mm[Hg]Raquel Nolan MD Work Phone: [facility] HospitalXczayweykd27-05-5778 10:46-0400Heart rate66 /min Raquel Nolan MD Work Phone: [facility] HospitalYxybdmhxjr43-61-4916 10:46-6221QdG0% (BldA) [Mass fraction]99 %Raquel Nolan MD Work Phone: [facility] HospitalNozoncnefo20-98-6272 10:46-0400Systolic blood jwgjgdyz446 mm[Hg]Raquel Nolan MD Work Phone: [place] [address]Kxarldxusa97-43-1111 14:00-0500Diastolic blood hwknrncu38 mm[Hg]Narinder Kumar [address] [place], [place] 6011301-12-2025 14:00-0500Heart rate61 /minNarinder Kumar [address] [place], [place] 6011301-12-2025 14:00-0500Mean blood utdfhfvf09 mm[Hg]Narinder Kumar [address] [place], [place] 6011301-12-2025 14:00-0500 Respiratory rate16 /minNarinder Kumar [address] [place], [place] 6011301-12-2025 14:00-8539TsD3% (BldA) [Mass fraction]97 %Narinder Kumar [address] [place], [place] 6011301-12-2025 14:00-0500 Systolic blood gjbpborn448 mm[Hg]Narinder Kumar [address] [place], [place] 6011301-12-2025 01:00-0500 Diastolic blood ajjvjjzw73 mm[Hg]Narinder Kumar [address] [place], [place] 6011301-12-2025 01:00-0500Heart rate60 /Ifeoma Kumar [address] [place], [place] 6011301-12-2025 01:00-0500Mean blood vsecfxxf47 mm[Hg]Narinder Kumar [address] [place], [place] 4617601-12-2025 01:00-1430QgM7% (BldA) [Mass fraction]97 %Narinder Kumar [address] [place], [place] 6011301-12-2025 01:00-0500 Systolic blood eivcnqci01 mm[Hg]Narinder Kumar [address] [place], [place] 6011301-12-2025 00:00-0500 Diastolic blood galqdclh18 mm[Hg]Narinder Kumar [address] [place], [place] 6011301-12-2025 00:00-0500Heart rate63 /Ifeoma Kumar [address] [place], [place] 4617601-12-2025 00:00-0500Mean blood mm[Hg]Narinder Kumar [address] [place], [place] 4617601-12-2025 00:00-0500 Respiratory rate16 /Ifeoma Kumar [address] [place], [place] 4617601-12-2025 00:00-2847UxA4% (BldA) [Mass fraction]99 %Narinder Kumar [address] [place], [place] 4617601-12-2025 00:00-0500 Systolic blood rlriqvqa452 mm[Hg]Narinder Kumar [address] [place], [place] 4617601-11-2025 21:11-0500Body oyplqmfgbdj65.52 [degF]Narinder José [address] [place], [place] 4617601-11-2025 21:11-0500Heart rate68 /Ifeoma Kumar [address] [place], [place] 4617601-11-2025 21:11-0500 Respiratory rate18 /Ifeoma Kumar [address] [place], [place] 4617601-08-2025 13:46-0500Blood Pressure LocationPamaría elena Warner [phone]-MttbhOhiohealth [facility] Gvjq19-17-3130 13:46-0500Body lnrceizesfb83.24 [degF]Ann Warner [phone]-EiqyaOhiohealth [facility] Qpjn56-89-7194 13:46-0500Diastolic blood odhvcqag08 mm[Hg]Ann Warner [phone]-KzpakOhiohealth Arthur [facility] Afuj52-31-1415 13:46-0500Heart rate79 /minAnn Warner [phone]-HucrjOhiohealth Arthur [facility] Xmdc41-58-9587 13:46-0500Respiratory rate18 /minPatrichenrietta Hernandezchasecata [phone]-WbsccOhiohealth [facility] Lsfb51-77-4733 13:46-7780ObR9% (BldA) [Mass fraction]99 %Ann Warner [phone]-AlrywOhiohealth Arthur [facility] Prgo34-43-7638 13:46-0500Systolic blood zvhckcux766 mm[Hg]Ann Warner [phone]-FwtofOhiohealth Arthur [facility] Xppo46-13-1405 12:38-0500Body nnyhaq969.7 cmRaquel Nolan MD Work Phone: [facility] [place] HospitalVzjtsvbxxp99-42-5632 12:38-0500Body mass index (BMI) [Ratio]27.31 kg/v1GpabnRaquel Nolan MD Work Phone: [facility] HospitalGxtraojxwn76-41-4835 12:38-0500Body temperature 98.01 [degF]Raquel Nolan MD Work Phone: [facility] HospitalMgkziivjjz95-15-5999 12:38-0500Body ecxxwj93.47 kgRaquel Nolan MD Work Phone: [facility] HospitalMzseqyyoso93-60-6549 12:38-0500Diastolic blood pzlpkolv38 mm[Hg]Raquel Nolan MD Work Phone: [facility] HospitalQnmkwgfjzz98-80-6270 12:38-0500Heart rate69 /min Raquel Nolan MD Work Phone: [facility] HospitalGwhqglpumj25-72-1591 12:38-3280ByM9% (BldA) [Mass fraction]99 %Raquel Nolan MD Work Phone: [facility] HospitalYlyieuvwgw82-10-7022 12:38-0500Systolic blood draddqlz463 mm[Hg]Raquel Nolan MD Work Phone: [facility] HospitalVsnzmogjea46-99-7585 08:55-0500Diastolic blood bsoeyubw18 mm[Hg]Roque Harris [address] [place], [place] 4617612-16-2024 08:55-0500Heart rate53 /minRoque Harris [address] [place], [place] 4617612-16-2024 08:55-0500Mean blood llgudzgr48 mm[Hg]Roque Harris [address] [place], [place] 4617612-16-2024 08:55-0500 Respiratory rate15 /minRoque Harris [address]12-16-2024 08:55-6027WnF6% (BldA) [Mass fraction]100 %Roque Harris [address]12-16-2024 08:55-0500 Systolic blood uocetkwv257 mm[Hg]Roque Harris [address]12-16-2024 07:19-0500Body kwkfxmreuau25.24 [degF]Roque Harris [address] [place], [place] 4617612-16-2024 07:19-0500 Diastolic blood kmqxrxsy57 mm[Hg]Roque Harris [address]12-16-2024 07:19-0500Heart rate79 /Ricky Harris [address] [place], [place] 4617612-16-2024 07:19-0500 Respiratory rate16 /minRoqeu Harris [address] [place], [place] 4617612-16-2024 07:19-3027KiU0% (BldA) [Mass fraction]100 %Roque Harris [address] [place], [place] 4617612-16-2024 07:19-0500 Systolic blood xnvwykvr785 mm[Hg]Roque Harris [address]09-09-2024 15:16-0400Body mass index (BMI) [Ratio]27.58 kg/m2Amy Filemon PA Work Phone: [facility] HospitalAtzftfxtxh81-44-3612 15:16-0400Body .28 kgNia Colbert PA Work Phone: [facility] HospitalVwwzlhuuuh18-75-0579 15:16-0400Diastolic blood fiyblbpk15 mm[Hg]Nia Colbert PA Work Phone: [facility] HospitalZaagdaheku43-77-7592 15:16-0400Systolic blood iwrerdcq152 mm[Hg]Nia Colbert PA Work Phone: [facility] HospitalHlfntwggbb00-07-6599 23:53-0400Diastolic blood mm[Hg]Kaylinn Dokken [facility]03-26-2024 23:53-0400Heart rate65 /minKaylinn Dokken [address]03-26-2024 23:53-0400Mean blood fzcykupv41 mm[Hg]Kaylinn Dokken [facility]03-26-2024 23:53-0400 Respiratory rate16 /minKaylinn Dokken [facility]03-26-2024 23:53-9042XbT3% (BldA) [Mass fraction]98 %Kaylinn Dokken [address] [place], [place] 4617603-26-2024 23:53-0400 Systolic blood mm[Hg]Kaylinn Dokken [address] [place], [place] 4617603-26-2024 22:37-0400 Diastolic blood mm[Hg]Kaylinn Dokken [facility]03-26-2024 22:37-0400Heart rate62 /minKaylinn Dokken [address] [place], [place] 6011303-26-2024 22:37-0400Mean blood gxxujmmy86 mm[Hg]Kaylinn Dokken [address] [place], [place] 6011303-26-2024 22:37-0400 Respiratory rate16 /minKaylinn Dokken [address] [place], [place] 6011303-26-2024 22:37-0048VsC3% (BldA) [Mass fraction]98 %Kaylinn Dokken [address] [place], [place] 6011303-26-2024 22:37-0400 Systolic blood xrcvdudq066 mm[Hg]Kaylinn Dokken [address] [place], [place] 6011303-26-2024 21:29-0400 Diastolic blood yeutufjq61 mm[Hg]Kaylinn Dokken [address] [place], [place] 6011303-26-2024 21:29-0400Heart rate58 /minKaylinn Dokken [address] [place], [place] 6011303-26-2024 21:29-0400Mean blood euzsqpno53 mm[Hg]Kaylinn Dokken [address] [place], [place] 6011303-26-2024 21:29-0400 Respiratory rate16 /minKaylinn Dokken [address] [place], [place] 6011303-26-2024 21:29-2681VuH1% (BldA) [Mass fraction]99 %Kaylinn Dokken [address] [place], [place] 6011303-26-2024 21:29-0400 Systolic blood ldifohwq466 mm[Hg]Kaylinn Dokken [address] [place], [place] 6011303-26-2024 20:10-0400Heart rate61 /minKaylinn Dokken [address] [place], [place] 6011303-26-2024 19:25-0400Body nlcvxpaapzp81.42 [degF]Awildainn Dokken [address] [place], [place] 6011303-26-2024 19:25-0400Heart rate62 /minKaylinn Dokken [address] [place], [place] 6011311-14-2023 07:05-0500 Diastolic blood lmlhzpni32 mm[Hg]Jacinto Maury [address] [place], [place] 6011311-14-2023 07:05-0500Heart rate58 /minNoah Maury [address] [place], [place] 6011311-14-2023 07:05-0500Mean blood zutjztsd07 mm[Hg]Jacinto Maury [address] [place], [place] 6011311-14-2023 07:05-0500 Respiratory rate18 /minNoah Maury [address] [place], [place] 6011311-14-2023 07:05-0361YtI1% (BldA) [Mass fraction]99 %Jacinto Maury [address] [place], [place] 4617611-14-2023 07:05-0500 Systolic blood rkwuvyvi042 mm[Hg]Jacinto Maury [address] [place], [place] 4617611-14-2023 06:16-0500 Diastolic blood eksalwla96 mm[Hg]Jacinto Maury [address] [place], [place] 4617611-14-2023 06:16-0500Heart rate81 /minNoah Maury [address] [place], [place] 4617611-14-2023 06:16-0500Mean blood zrvilivs06 mm[Hg]Jacinto Maury [address] [place], [place] 6011311-14-2023 06:16-0500 Respiratory rate18 /minNoah Maury [address] [place], [place] 4617611-14-2023 06:16-3312PjN7% (BldA) [Mass fraction]99 %Jacinto Maury [address] [place], [place] 4617611-14-2023 06:16-0500 Systolic blood bvjivxhi673 mm[Hg]Jacinto Maury [address] [place], [place] 6011311-14-2023 05:18-0500gluc 100 mg/dLNoah Maury [address] [place], [place] 6011311-14-2023 05:18-0500gluc Jacinto Maury [address] [place], [place] 6011311-14-2023 05:12-0500Body dhxhkxbxyyl68.7 [degF]Jacinto Maury [address] [place], [place] 6011311-14-2023 05:12-0500 Diastolic blood iwzikyjg72 mm[Hg]Jacinto Maury [address] [place], [place] 6011311-14-2023 05:12-0500Heart rate73 /minNodana Maury [address] [place], [place] 6011311-14-2023 05:12-0500 Respiratory rate16 /minNodana Maury [address] [place], [place] 6011311-14-2023 05:12-5620OqW4% (BldA) [Mass fraction]98 %Jacinto Maury [address] [place], [place] 6011311-14-2023 05:12-0500 Systolic blood wacoxmwf676 mm[Hg]Jacinto Maury [address] [place], [place] 6011307-08-2022 13:50-0400Body pnkofk098.3 cmJavier Gutierrez MD Work Phone: [facility]07-08-2022 13:50-0400Body temperature 96.69 [degF]Javier Gutierrez MD Work Phone: [facility]07-08-2022 13:50-0400Body .52 kgJavier Gutierrez MD Work Phone: [facility]07-08-2022 13:50-0400Diastolic blood pegvogwv23 mm[Hg]Javier Gutierrez MD Work Phone: [facility]07-08-2022 13:50-0400Heart rate67 /min Javier Gutierrez MD Work Phone: [facility]07-08-2022 13:50-4069MeY2% (BldA) [Mass fraction]98 %Javier Gutierrez MD Work Phone: [facility]07-08-2022 13:50-0400Systolic blood ctycsitg786 mm[Hg]Javier Gutierrez MD Work Phone: [facility]06-16-2022 02:53-0400Diastolic blood npgyfdrr27 mm[Hg]Awildainn Dokken [address]06-16-2022 02:53-0400Heart rate58 /minKaylinn Dokken [address]06-16-2022 02:53-0400 Hourly RoundingKaylinn Dokken [address] [place], [place] 4617606-16-2022 02:53-0400 Respiratory rate16 /minKaylinn Dokken [address] [place], [place] 4617606-16-2022 02:53-6510BmS9% (BldA) [Mass fraction]100 %Kaylinn Dokken [address] [place], [place] 4617606-16-2022 02:53-0400 Systolic blood mm[Hg]Kaylinn Dokken [address]06-16-2022 01:45-0400 Diastolic blood dsuoaywi25 mm[Hg]Kaylinn Dokken [address] [place], [place] 6011306-16-2022 01:45-0400Heart rate61 /minKaylinn Dokken [address] [place], [place] 6011306-16-2022 01:45-0400 Hourly RoundingKaylinn Dokken [address] [place], [place] 6011306-16-2022 01:45-0400 Respiratory rate18 /minKaylinn Dokken [address] [place], [place] 6011306-16-2022 01:45-3284NpK4% (BldA) [Mass fraction]98 %Kaylinn Dokken [address] [place], [place] 6011306-16-2022 01:45-0400 Systolic blood lxrvpobs39 mm[Hg]Kaylinn Dokken [address] [place], [place] 6011306-16-2022 00:15-0400 Hourly RoundingKaylinn Dokken [address] [place], [place] 6011306-15-2022 23:50-0400Body akiuluyeerj94.88 [degF]Kaylinn Dokken [address] [place], [place] 6011306-15-2022 23:50-0400 Diastolic blood cvrdhmiy90 mm[Hg]Kaylinn Dokken [address] [place], [place] 6011306-15-2022 23:50-0400Heart rate70 /minKaylinn Dokken [address] [place], [place] 6011306-15-2022 23:50-0400 Respiratory rate18 /minKaylinn Dokken [address] [place], [place] 6011306-15-2022 23:50-9603ZnB0% (BldA) [Mass fraction]98 %Kaylinn Dokken [facility]06-15-2022 23:50-0400 Systolic blood maheutxx047 mm[Hg]Amberly Whitehead [address] [place], [place] 4617606-15-2022 22:06-0400Body rfszhpvseyy55.06 [degF]Amberly Whitehead [facility]04-13-2022 16:39-0400 Diastolic blood cmprjzej37 mm[Hg][facility] 07-16-2021 16:39-0400Heart rate64 /minC[facility]04-13-2022 16:39-0400Mean blood ivbtaiic78 mm[Hg][facility]04-13-2022 16:39-0400Respiratory rate16 /[facility]04-13-2022 16:39-5616BfK4% (BldA) [Mass fraction]99 %[facility]04-13-2022 16:39-0400Systolic blood zamlrksi086 mm[Hg][facility]04-13-2022 16:00-0400Hourly RoundingCleveland Clinic04-13-2022 16:00-0400[facility] ReturnC[facility] Clinic04-13-2022 14:24-0400Body davihfjigla75.42 [degF][facility]04-13-2022 14:24-0400Diastolic blood stdvpown71 mm[Hg][facility]04-13-2022 14:24-0400Heart rate67 /minMagruder Hospital04-13-2022 14:24-0400Respiratory rate16 /minC[facility]04-13-2022 14:24-7817IbB8% (BldA) [Mass fraction]99 %[facility]04-13-2022 14: Systolic blood xqwgdcil807 mm[Hg][facility] Encounters Encounter DateEncounter TypeCare ProviderFacilityStart: 02-02-2025 End: 17-15-5687Dyyqydefp Result EncounterCorey Miryam DO Work Phone: [facility] External Department UnsolicitedStart: 02-02-2025 End: 99-77-8608Boyofmiav Result EncounterCorey Miryam DO Work Phone: [facility] External Department UnsolicitedStart: 01-24-2025 End: 62-59-5203Lwzjhq outpatient visit 15 minutesCorey Miryam DO Work Phone: [facility] OBGYNComment on above:Pre-operative exam; Menorrhagia with irregular cycle; Pelvic pain in female; Dysmenorrhea; Dyspareunia, femaleStart: 01-24-2025 End: 79-49-2480Enwxgoernjiqa examination doneCorey Miryam Vitrinepix Work Phone: [facility] Work Phone: Start: 01-24-2025 End: 70-95-6231jxmkdmoycvSSOYL FAZIONot AvailableStart: 12-18-2024 End: 94-37-0804Ednimox encounter procedureNia GUILLEN Work Phone: [facility] Work Phone: Start: 12-18-2024 End: 55-33-2649Mrcuvfbk preventive med est patient 18-39 yrsNia GUILLEN Work Phone: [facility] [place] OBGYNComment on above:Well woman exam with routine gynecological exam; UTI symptoms; Exposure to STD; Vaginal dischargeStart: 12-18-2024 End: 71-18-1712newmiksauoQBF RAMEYNot AvailableStart: 12-18-2024 End: 77-57-0249Utkcoq flowsheetNia GUILLEN Work Phone: [facility] OBGYNStart: 12-18-2024 End: 31-99-1315Mupelm flowsSarah Elcaitlyn GUILLEN Work Phone: [facility] OBGYNStart: 12-18-2024 End: 46-89-2306Zrmuctheq Result EncounterNia Elcaitlyn GUILLEN Work Phone: [facility] External Department UnsolicitedStart: 12-18-2024 End: 88-38-5669Sizcialm Result EncounterNia Colbert WILMER Work Phone: [facility] External Department UnsolicitedStart: 12-06-2024 End: 28-59-3561pyntgcvcozGSQTSQF A DONNAMILLERNot AvailableStart: 12-06-2024 End: 27-43-2215Gukgrl outpatient visit 15 minutesCherise Jaimes NP Work Phone: [facility] HospitalComment on above:Acute diarrhea (Primary Dx); Nausea; Abdominal crampingStart: 09-26-2024 End: 44-82-4779Cifkcu Autumn Nolan MD Work Phone: [facility] [place] FMStart: 09-26-2024 End: 65-43-1347Huyvng Autumn Nolan MD Work Phone: [facility] [place] FMStart: 09-26-2024 End: 89-63-2255Kltmku outpatient visit 15 minutesRaquel Nolan MD Work Phone: [facility] [place] FMComment on above:Intractable episodic headache, unspecified headache type (Primary Dx); Nausea; Facial tingling; Overweight; BMI 27.0-27.9,adultStart: 09-26-2024 End: 27-93-2925iwwwjgnsezBXMPCMayank Lopez AvailableStart: 06-15-2024 End: 47-43-8338Igdxrcwilson Nolan MD Work Phone: [facility] NE FMStart: 06-15-2024 End: 81-65-7404Tsjncb Autumn Nolan MD Work Phone: [facility] [place] FMStart: 06-15-2024 End: 95-20-9524Hmvdre outpatient visit 25 minutesRaquel Nolan MD Work Phone: [facility] NE FMComment on above:Leukocytosis, unspecified type (Primary Dx); Gastroesophageal reflux disease, unspecified whether esophagitis present; BMI 26.0-26.9,adult; OverweightStart: 06-15-2024 End: 90-49-0058zwearvrjxvDBLKY M RUGGLESNot AvailableStart: 06-11-2024 End: 47-19-9790Uilfvmwdj department patient visitElver ThomasFacility:FTMCStart: 04-15-2024 End: 26-96-5016Qpwnnqfmn department patient visitNarinder Kumar [facility] Start: 04-12-2024 End: 10-23-2808gwkpeplmthAfskyvid Ana WarnerFacility:[facility] [place]Start: 04-12-2024 End: 50-77-9869Krmudda encounter procedurePatricia Ana Warner [phone]-TifceOhio[facility] Start: 03-22-2024 End: 86-29-7433Ljtzfb Autumn Noaln MD Work Phone: [facility] FMStart: 03-22-2024 End: 47-71-9362Fqxukg Autumn Nolan MD Work Phone: [facility] FMStart: 03-22-2024 End: 00-71-1697Mnlmom outpatient visit 15 minutesRaquel Nolan MD Work Phone: [facility] [place] FMComment on above:Acute cough (Primary Dx); Nausea; Nasal congestion; Ear fullness, bilateral; BMI 27.0-27.9,adult; OverweightStart: 03-22-2024 End: 14-86-2971texpxncjrvJLKBD M RUGGLESNot AvailableStart: 03-20-2024 End: 32-85-3135Qdqbmfrbg department patient visitJohn ParenteFacility:[facility]MCStart: 03-15-2024 End: 60-72-2987ttibtohgaaGnxkxdvx Ana DaviddnerFacility:FTMCStart: 12-22-2023 End: 86-80-3942Jvkqbz flowsSarah GUILLEN Work Phone: [facility] OBStart: 12-22-2023 End: 26-98-4560Dumlwx flowsSarah GUILLEN Work Phone: [facility] OBStart: 12-22-2023 End: 48-34-9014Iuypyz outpatient visit 10 minutesNia GUILLEN Work Phone: [facility] OBComment on above:Wellness examination (Primary Dx)Start: 12-22-2023 End: 27-25-6001Vmkkhpw encounter statusNia GUILLEN Work Phone: [facility] Work Phone: Start: 12-14-2023 End: 96-54-3788aqjlzuitqnEZR L RAMEYFacility:FTMCStart: 12-14-2023 End: 25-59-0956Ejfqihf encounter procedureNIA [facility]ERT [facility] Start: 12-13-2023 End: 72-09-3928Uhkfgqv encounter procedureNia GUILLEN Work Phone: [facility] Work Phone: Start: 12-13-2023 End: 24-09-5542Nhtxtlrx preventive med est patient 18-39 yrsNia GUILLEN Work Phone: [facility] OBComment on above:Well woman exam with routine gynecological exam; PCOS (polycystic ovarian syndrome); NauseaStart: 12-13-2023 End: 15-28-3948Hdhheb flowsSarah GUILLEN Work Phone: [facility] OBStart: 12-13-2023 End: 31-00-3303Wtvajdrsh Result EncounterNia Filemon GUILLEN Work Phone: [facility] Department UnsolicitedStart: 12-13-2023 End: 57-14-3072Eydenlejv Result EncounterNia Filemon GUILLEN Work Phone: noMS External Department UnsolicitedStart: 06-29-2023 End: 08-95-5004Xwtolohjs department patient visitAmberly Wihtehead [facility] Start: 02-16-2023 End: 44-33-0507Mcjbfztrh department patient visitJacinto SiegelElizabeth Maury [facility] Start: 12-18-2022 End: 26-66-7148Txdhprd encounter Travis Aguirre [facility] Start: 12-18-2022 End: 93-88-0198pknlhymkevUjbiq M. DempseyFacility:FTKAISER [facility]OSPITALtart: 06-24-2022 End: 19-86-7517cmlznjqoxhME SHAAN MIRYAM .Facility:H0Dwsky: 09-90-8561Lpllnlzko for preprocedural cardiovascular examinationDR SHAAN MIRYAM .[facility] 06-10[facility]2022 End: 20-09-8558rzkdnyxoxsOM SHAAN MIRYAM .Facility:S0Rmpjc: 06-10-2022 End: 69-35-7107Puspdtxoa for preprocedural cardiovascular examinationDR SHAAN MIRYAM .Facility:H8Ariex: 11-19-2021 End: 37-42-2176Tykntdk encounter procedureMaher SALAM [phone]-QcycbOhiohealth [facility] Start: 10-18-2021 End: 17-07-7615rpsqccztgaXV SHAAN MIRYAM .Facility:H4Dulgl: 47-85-3456pkmhtngfea DR SHAAN WITT .Facility:H0Svxlr: 10-10-2021 End: 32-13-5742Yjtdqdq encounter procedureJavier Gutierrez MD Work Phone: GastroenterologyComment on above:Constipation, unspecified constipation type (Primary Dx)Start: 09-17-2021 End: 90-29-1464Wfwilbkvd department patient visitAmberly Palm Dovandana [facility] Start: 08-07-2021 End: 75-31-4540Lyz Drop offSkarina MUNROE [facility] Start: 07-16-2021 End: 61-95-0047Osqzzsyrr department patient visitLucila Peters O[facility]ieGre[facility] Start: 34-65-8170BblguaglbeBPXLQD EHRENBERG [facility] Procedures DateProcedureProcedure DetailPerforming ClinicianStart: 66-43-3345AE CHEST 2V Shaan Dooleyo DO Work Phone: Start: 97-12-0950WJW CBC WITH AUTO DIFFCorey Miryam DO Work Phone: Start: 62-40-0528DSLDJOXNG VAGINITIS (HTRX)Nia GUILLEN Work Phone: Start: 92-44-3410Nxpca dip stick/tablet rgnt non-auto w/o micrscpAmy Filemon GUILLEN Work Phone: Start: 37-71-4124KOD,APTIMA HPV,AGE GDRichard GUILLEN Work Phone: Start: 73-41-4323KXJ,APTIMA HPV,AGE Catherine GUILLEN Work Phone: Start: 86-87-8285Gkbbsipiv of intrauterine contraceptive deviceAstrit HajdariLigation of fallopian tubeNodana Mendiola Plan of Treatment DateCare ActivityDetailAuthorStart: 12-25-2025 End: 76-83-4741Oczvmmk encounter dkugfalnu18/22/2026 3:00 PM EDT Procedure Visit [facility]gt AGUERO [address] [place] [address] Nia Colbert PA [address] [place] [address] [facility] Bright OBGYNStart: 01-24-2025 End: 05-12-5041Bgsymlk encounter yhzbjxqsw98/22/2025 11:10 AM EDT Consult NOMChristal AGUERO [address] [place] [address] Shaan Witt DO [address] [place] [address] [facility] OBGYNStart: 01-24-2025 End: 43-14-3011Gmltesqsxhyw / ancillary services ykrhsxxvvg75/22/2025 10:00 AM EDT Ancillary Procedure [facility] HARDYGYN [address] [place] [address] [facility] OBGYNStart: 12-18-2024 End: 56-20-4214Jidrxyr encounter procedureNOMS BCP OBComment on above:Arrived Start: 33-84-1121Srrmwvpgx vaccinationNOMS HealthcareStart: 09-26-2024 End: 72-42-1231Gwcbtlb encounter qmeeizvnu92/24/2025 12:40 PM EDT Office Visit [facility] [address] [place] [phone] [phone], Hanna M, MD [address] [place] [address] ArrivedNOMS NE FMComment on above:ArrivedStart: 06-15-2024 End: 86-07-6804WXH W Auto Differential panel - BloodCBC and differential Lab Routine Leukocytosis, unspecified type Expected: 06/15/2024 (Approximate), Expires: 06/15/2025[facility] Work Phone: comment on above:Expected: 06/15/2024 (Approximate), Expires: 06/15/2025Start: 06-15-2024 End: 30-12-6737Hjqcnyr encounter btgcdmatq51/13/2025 10:40 AM EDT Office Visit [facility] [place] [address] [place] [address] Dqofyep, Hanna M, MD [address] [place] [address] ArrivedNOMI NE FMComment on above:ArrivedStart: 03-22-2024 End: 36-55-3918Blgiwlh encounter iejpmujrq58/18/2024 12:40 PM EST Office Visit [facility] [place] [address] [place] [address] Okjalex, Hanna M, MD [address] [place] [address] ArrivedNOMI NE FMComment on above:ArrivedStart: 12-13-2023 End: 56-86-6115Slfvdzx encounter sfkyqswkx88/09/2024 3:00 PM EDT Office Visit [facility] BCP OB [address] [place] [address] Nia Colbert PA [address] [place] [address] ArrivedNOMI BCP OBComment on above:ArrivedStart: 12-13-2023 End: 79-11-4194Ukrkxc [Enzymatic activity/volume] in Serum or PlasmaLipase Lab Routine Well woman exam with routine gynecological exam PCOS (polycystic ovarian syndrome) Expected: 12/13/2023 (Approximate), Expires: 12/12/2024[facility] Comment on above:Expected: 12/13/2023 (Approximate), Expires: 12/12/2024Start: 12-13-2023 End: 39-86-4987Hpfob 1996 panel - Serum or PlasmaLipid panel Lab Routine Well woman exam with routine gynecological exam PCOS (polycystic ovarian syndrome) Expected: 12/13/2023 (Approximate), Expires: 12/12/2024[facility] HealthcareComment on above:Expected: 12/13/2023 (Approximate), Expires: 12/12/2024Start: 12-05-2023 Influenza vaccinationInfluenza Vaccine (#1)[facility] HealthcareStart: 12-04-2021 Influenza vaccinationINFLUENZA (#1)[facility]: 60-41-5763QTI TESTING PAP TESTINGEast Liverpool City Hospitaltart: 64-77-4354Ijcjt microalbumin profile DTAP,TDAP,TD (1 - Tdap)[facility] Hospitaltart: 90-90-7581ACVYEQPQG SCREENING (18-24)CHLAMYDIA SCREENING (18-24)[facility]tart: 90-90-1029CL (GONORRHEA) SCREENING (18-24)GC (GONORRHEA) SCREENING (18-24)[facility] Start: 60-78-7528AVXFIHUPP C SCREENINGHEPATITIS C SCREENINGCleveland Clinic Mentor Hospital Start: 25-96-9846PZT SCREENINGHIV SCREENINGEast [facility] Hospitaltart: 91-57-0314KMRV TO ADULT TRANSITION ANNUAL ASSESSMENTPEDS TO ADULT TRANSITION ANNUAL ASSESSMENT [facility]tart: 08-50-4126Abuhh depression screening assessmentDEPRESSION SCREENINGEast [facility] City Hospitaltart: 95-51-3170OJUP TO ADULT TRANSITION INITIAL DISCUSSIONPEDS TO ADULT TRANSITION INITIAL DISCUSSIONEast [facility] City Hospitaltart: 00-39-0410QYP VACCINE (1 - 2-dose series)HPV VACCINE (1 - 2-dose series) [facility]: 75-90-2334GCNTZDTLFRLGQ B: Consider based on risk (1 of 2 - Risk Bexsero 2-dose series)MENINGOCOCCAL B: Consider based on risk (1 of 2 - Risk Bexsero 2-dose series)[facility]: 85-52-5791XYFMWDEZYRRN (1 - PCV)PNEUMOCOCCAL (1 - PCV)[facility]tart: 15-07-8495XKQLD-19 VACCINE (#1) COVID-19 VACCINE (#1)[facility] End: 95-07-5004EMWSD [place] ANORECTAL MANOMETRYADULT [place] ANORECTAL MANOMETRY Endoscopy Routine Constipation, unspecified constipation type 1 Occurrences starting 10/10/2021 until 10/10/2022[facility] Work Phone: Comment on above:1 Occurrences starting 10/10/2021 until 10/10/2022BC W Auto Differential panel - BloodCBC and differential Lab Routine Well woman exam with routine gynecological exam PCOS (polycystic ovarian syndrome) Ordered: 12/13/2023[facility] HealthcareComment on above:Ordered: 12/13/2023 CHLAMYDIA TRACHOMATIS (GENITO/STI)CHLAMYDIA TRACHOMATIS (GENITO/STI) Lab Routine Vaginal discharge Ordered: 12/18/2024[facility] HealthcareComment on above:Ordered: 12/18/2024omprehensive metabolic 2000 panel - Serum or PlasmaComprehensive metabolic panel Lab Routine Well woman exam with routine gynecological exam PCOS (polycystic ovarian syndrome) Ordered: 12/13/2023[facility] HealthcareComment on above:Ordered: 4Cytology Cervical or vaginal smear or scraping studyPap Smear Pathology and Cytology Routine Well woman exam with routine gynecological exam Ordered: 12/13/2023[facility] Healthcare Work Phone: comment on above:Ordered: ytology Cervical or vaginal smear or scraping studyPap Smear Pathology and Cytology Routine Well woman exam with routine gynecological exam Ordered: 12/18/2024[facility] Work Phone: comment on above:Ordered: 12/18/2024Hemoglobin A1c/Hemoglobin.total in BloodHemoglobin A1c Lab Routine Well woman exam with routine gynecological exam PCOS (polycystic ovariansyndrome) Ordered: 12/13/2023 [facility] HealthcareComment on above:Ordered: 12/13/2023Neisseria gonorrhoeae DNA [Presence] in Unspecified specimen by PRASHANT with probe detectionNeisseria gonorrhea DNA probe, direct Lab Routine Vaginal discharge Ordered: 12/18/2024 [facility] HealthcareComment on above:Ordered: 12/18/2024SURESWAB(R) ADVANCED VAGINITIS PLUS, TMASURESWAB(R) ADVANCED VAGINITIS PLUS, TMA Pathology and Cytology Routine Exposure to STD Ordered: 12/18/2024[facility] HealthcareComment on above:Ordered: 12/18/2024Thyrotropin [Units/volume] in Serum or PlasmaTSH Lab Routine Well woman exam with routine gynecological exam PCOS (polycystic ovarian syndrome) Ordered: 12/13/2023[facility] HealthcareComment on above:Ordered: [facility] Immunizations Immunization DateImmunizationNotesCare BbizfmqnAnvptmck75-87-9755vypyedk toxoid, reduced diphtheria toxoid, and acellular pertussis vaccine, adsorbedAmy Filemon GUILLEN Work Phone: [facility] [place] [facility] HospitalIipsocydhk00-01-9935vzsmigd toxoid, unspecified formulationRaritan Bay Medical Center, Old Bridgeit [facility] HospitalComment on above:Result Comment: Done at Health DepartmentResult Comment: Done at Health Department 08-47-3834fzdfxdo toxoid, reduced diphtheria toxoid, and acellular pertussis vaccine, adsorbedMaher SALAM 624-6992Exxskj-ExmwdOhiohealth [facility] 10-525490-56-2591concschsl A vaccine, unspecified formulation Aguilar SALAM 889-7449Tbxtzr-UizafOhiohealth Arthur [facility]. [facility] 10-563812-33-1471KVA, unspecified formulationMaher SALAM 391-6122Anhxqi-ButqeOhiohealth [facility] 10-941935-94-8653xrpzugfqppxkk B vaccine, fully recombinant Aguilar SALAM 492-4255Ttgtmc-VrvrfOhiohealth [facility] 08-334018-46-3707QPQ, unspecified formulationMaher SALAM 954-4502Rvqjer-OchboOhiohealth [facility] 09335936-71-1472wqyexnrnhaxbp ACWY vaccine, unspecified formulationMaher SALAM 384-1595Oblrcu-UzdmeOhiohealth [facility] 09-871682-74-4779tpqascstlfijz polysaccharide (groups A, C, Y and W-135) diphtheria toxoid conjugate vaccine (MCV4P)Nia GUILLEN Work Phone: [place] HospitalPujaiiwnlq14-72-5257mujnhyx toxoid, reduced diphtheria toxoid, and acellular pertussis vaccine, adsorbedMaher SALAM 459-2900Rlytkm-OejsdOhiohealth [facility] 11606203-24-6345rawew jgenbrqtj-S9I0-10, preservative-free, injectableNia GUILLEN Work Phone: [place] HospitalXzqmsxqxlv77-59-2177wunpinhppr, tetanus toxoids and acellular pertussis vaccineNia GUILLEN Work Phone: [place] HospitalCrawcdpzcm87-87-2045jndoszreok, tetanus toxoids and acellular pertussis vaccine, unspecified formulationNia GUILLEN Work Phone: [place] HospitalSakrjbvyly60-26-8447HYaF, unspecified formulation Aguilar SALAM 316-4571Clmswr-OteouOhiohealth [facility] 10259202-26-3734jicgmhi, mumps and rubella virus vaccineWvher SALAM 765-2627Mpagxr-JqpukOhiohealth [facility] 10141749-19-9286eicybvepbz vaccine, unspecified formulation Nia GUILLEN Work Phone: [place] HospitalMmynyiwhab83-43-1126dzffqjpabosl conjugate vaccine, 7 valSaad GUILLEN Work Phone: [place] HospitalUklqjeezxd09-43-1506lhkeshirulcq conjugate vaccine, 7 valSaad GUILLEN Work Phone: [place] HospitalUtjgsrqczh97-76-9144emssowknpz, tetanus toxoids and acellular pertussis vaccineNia GUILLEN Work Phone: [place] HospitalBumllayvxl52-00-4447lmcqwflale, tetanus toxoids and acellular pertussis vaccine, unspecified formulationNia GUILLEN Work Phone: [place] HospitalSfhdqxjyze47-12-4130TTbB, unspecified formulation Aguilar SALAM 880-8941Pvkjwf-AphzqOhiohealth [facility] 488998-66-0858tzmsnxqnjxh influenzae type b vaccine, PRP- OMP conjugateMaher SALAM 080-5627Qzetbx-VbwezOhiohealth [facility] 09387298-40-6839jzwjrsa, mumps and rubella virus vaccineMaher SALAM 992-9865Bwasby-LiljcOhiohealth [facility] 09651569-28-8738axtdixgfzk vaccine, inactivatedAmy Filemon GUILLEN Work Phone: [place] HospitalInuzauvugu39-53-4483cebczctcst vaccine, unspecified formulationWvher SALAM 910-0364Jnxkns-ZmwukOhiohealth [facility] 860843-60-0258orlethfafj, tetanus toxoids and acellular pertussis vaccineNia GUILLEN Work Phone: [place] HospitalWlnwnkmchw95-79-7040afytljgnsz, tetanus toxoids and acellular pertussis vaccine, unspecified formulationNia GUILLEN Work Phone: [place] HospitalCdbprfoxnq72-91-4791MVgO, unspecified formulation Aguilar SALAM 533-9274Aphxfo-ZtasqOhiohealth [facility] 654818-73-3336yrtfmgbwnbl influenzae type b vaccine, PRP- OMP conjugateMaher SALAM 702-9445Qoyyso-PtvpdOhiohealth [facility] 01-825301-14-0140yhhbagkvv B vaccine, pediatric or pediatric/adolescent dosageMaher SALAM 718-3004Liybqu-ErjzxOhiohealth [facility] 190470-59-9903xgxuddovri, tetanus toxoids and acellular pertussis vaccineAmy Filemon GUILLEN Work Phone: [place] HospitalDcptexdjgg15-42-1003cgykjzjjgf, tetanus toxoids and acellular pertussis vaccine, unspecified formulationAmy Filemon PA Work Phone: [place] HospitalJrqfmmxzoi15-47-5740QGrU, unspecified formulation Aguilar SALAM 835-2675Gaiqkl-FssvhOhiohealth [facility] 11786633-47-2989cphjgxfroii influenzae type b vaccine, PRP- OMP conjugateMaher SALAM 505-8713Jipvgk-DexohOhiohealth [facility] 6-972009-99518205-05-1744bmwzkhrkup vaccine, inactivatedAmy Filemon PA Work Phone: [place] HospitalTehevseujx25-88-6195jjwcjznidj vaccine, unspecified formulationMaher SALAM 138-4352Mbklqo-JkjimOhiohealth [facility] 850119-52-0425jziwlikybc, tetanus toxoids and acellular pertussis vaccineAmy Calera PA Work Phone: [place] HospitalZkpmtvxdtj13-92-0946hspzopspxu, tetanus toxoids and acellular pertussis vaccine, unspecified formulationAmy Calera PA Work Phone: [place] HospitalAzlgiubbcb95-52-7354ZLjK, unspecified formulation Aguilar SALAM 243-2797Rojmof-SudobOhiohealth Arthur [facility] 09561933-59-1458fioczhdmmif influenzae type b vaccine, PRP- OMP conjugateMaher SALAM 193-7343Ourmet-DzztxOhiohealth [facility] 09609317-90-6499ozfxshykr B vaccine, pediatric or pediatric/adolescent dosageMaher SALAM 470-6645Sagvyp-UbsysOhiohealth [facility] 09256050-94-4534dvprdozabe vaccine, inactivatedAmy Calera PA Work Phone: [place] HospitalDpcuehvvtq09-84-7634gydvwjrcqz vaccine, unspecified formulationMaher SALAM 769-6974Mtbnch-RotbaOhiohealth [facility] 684645-78-1790lsyfsbcfm B vaccine, pediatric or pediatric/adolescent dosageMaher SALAM 076-8876Xgthll-QsbfuOhiohealth Arthur G.[facility] NEGATED: Highlighted row has not occurred!03-21-2019 influenza virus vaccine, live, attenuated, for intranasal useAstrit [facility] Payers DatePayer CategoryPayerPolicy [id number] [facility] [id number] [facility] [id number] 2023- [phone] [address] [place] [address] [id number] Medicaid[place] MED[place] MED[place] [id number] 2017-Present [phone] [address] [place] [address] [id number] [id number] 2.16.840.1.540301.3.57[id number] .16.840.1.786925.3.57[id number] 2.16.840.1.920162.3.57[id number] 2.16.840.1.329348.3.57[id number] 2.16.840.1.048235.3.579.2.07349-35-5827Qknznte05101539 2.16.840.1.189113.3.579.2.20[id number] 2.16840.1.946229.3.579.2.91982-97-4731Awdufwu39682706 2.16840.1.443308.3.579.2.42247-79-5945Hxjqchj14623352 2.16840.1.782705.3.579.[id number] 2.16840.1.331804.3.57[id number] 2.16840.1.186098.3.579.[id number] 2.16.840.1.724979.3.579.2.39272-77-9535Swwqkrp91503157 2.16840.1.516731.3.579.2.79429-64-7236Ewyoboh09870015 2.16.840.1.350035.3.579.2.65248-96-6744Hipshiy57745164 2.16840.1.408399.3.579.2.32378-78-0594Ysowpoa52461121 2.16.840.1.770806.3.579.2.80942-40-5283Hogjcmm03949319 2.16.840.1.618771.3.579.2.03360-30-7333Ddlliqk98622514 2.16.840.1.822699.3.579.2.05799-86-1037Lphjocv69775878 2.16.840.1.672515.3.579.2.832192-75-2048Yeqvebq72466654 2.16.840.1.111464.3.579.2.168427-59-6693Evgbkzj73079081 2.16.840.1.921503.3.579.2.344261-26-7866Qrexjfb62177342 2.16.840.1.267346.3.579.2.706099-92-0321Hacucln57667189 2.16.840.1.548016.3.579.2.611746-29-3336Hhfzsju5140781 2.16.840.1.666305.3.579.2.145719-97-0999Tatbqhk7618057 2.16.840.1.136824.3.579.2.450396-63-2647Dfhx-hxo25-74-2702Zdypvca854732815806 Social History DateTypeDetailFacilityTobaccoCurrent every day smokerGreene Memorial HospitalComment on above:currentcurrentStart: 08-27-2023 End: 59-04-2399Ppj Assigned At BirthFeOhio State Harding Hospitaltart: 12-25-8624Pvwllhh smoking status NHISOccasional tobacco smokerCleveland Clinic [facility]or Hospital History of tobacco useCigarette SmokerEast [facility] City Hospitaltart: 10-10-2021 End: 48-56-9259Hvohctbkci smoked current (pack per day) - Ksgyetnr1WNAW HealthcareStart: 32-31-2309Ltnojlq intakeEx-drinker (finding)[facility] Start: 74-94-2020Dvkewwm Commentsmokes 1 packs every 2 daysCleveland Clinic Mentor Hospital Start: 11-55-7000Qdd Assigned At BirthNot on fileEast Liverpool City Hospitaltart: 12-18-2022 End: 01-04-5751Rxzssiy smoking statusLight tobacco smoker (finding)[facility] Convenient CareComment on above:currentTobacco smoking statusNo Smoking Status EnteredKindred Hospital Daytontart: 09-14-2022 End: 03-31-9394Nknpgqt smoking status NHISSmokes tobacco dailyNOMS Healthcare Start: 09-14-2022 End: 68-68-1967Ijphngd use and exposureSmokeless tobacco non-userNOMS Healthcare Start: 12-13-2023 End: 49-24-3685Mhgqbicwx beverage intakeLifetime non-drinker (finding)[facility] HospitalStart: 57-76-1520Pxlofyl CommentCaffeine intake: occasionalNOMS HealthcareStart: 12-89-0998DtgYgmbydZSBT Healthcare Functional Status DsdcJgppjcjckaLbadadRjsuoiob61-21-0884Iyjvkwi Health Questionnaire 2 item (PHQ- 2) [Reported][facility] [place] HospitalDoomodcyrg62-53-0594Whsppyrwqv StatusN/[facility]01-08-2025Functional StatusN/[facility] 45-38-1191Fsxomvfvog StatusN/[facility]03-26-2024Functional StatusN/[facility]11-14-2023Functional StatusN/[facility]06-15-2022Functional StatusN/[facility] Clinical Notes 07-16-2021 to 01-24-2025 Note Date & VywfSakkHhpmtffg72-19-5854 History of Present illness Narrative* Krista Nazia - 01/24/2025 11:10 AM EDT Reason for Appointment: Patient ID: Socorro Joseph is a 24 y.o. female who presents for Pre-op Visit Patient presents today for Pre Op appointment. Patient is scheduled to undergo Da Aliya assisted Laparoscopic Hysterectomy, possible exploratory laparotomy, possible BSO, possible cystoscopy on 02/19/[address] Witt at [facility]. MEDICATIONS Current Outpatient Medications Medication Instructions [...] II, CUONG III History of being hospitalized [facility] inflammation of stomach and [...] ENDOMETRIAL ABLATION 02/05/2023 PAP SMEAR 08/12/2021 negative MS SALPINGECTOMY COMPLETE/PARTIAL UNI/BI SPX 06/24/2022 robotic, fulguration [...] nursing note reviewed. Exam conducted with a heavy equipment diesel mechanic present. Vitals: Estimated body mass index is [...] cystoscopy on 02/19/2025. Surgical consents were signed, [facility], and patient is to proceed to [facility] OR. Follow Up: Patient is to follow up at 1 & 6 weeks post operative to assess proper healing and recovery from procedure. Documented by Debi Nunez LPN on behalf of: Shaan Witt DO documented in this encounterNorth Kansas City HospitalEpntkfyuyo63-93-6739 History of Present illness Narrative* WILMER Hernandez [...] II, CUONG III History of being hospitalized [facility] inflammation of stomach and [...] ENDOMETRIAL ABLATION 02/05/2023 PAP SMEAR 08/12/2021 negative MS SALPINGECTOMY COMPLETE/PARTIAL UNI/BI SPX 06/24/2022 robotic, fulguration [...] nursing note reviewed. Exam conducted with a heavy equipment diesel mechanic present. Vitals: Estimated body mass index is [...] behalf of: WILMER Hernandez documented in this encounterNorth Kansas City HospitalUfusgrhlgj98-21-8999 History of Present illness Narrative* Cherise Jaimes [...] sub stitutions have occurred. documented in this encounterNorth Kansas City HospitalYvfiyqrhph79-16-0434 History of Present illness Narrative* Raquel Nolan [...] imaging if sx persist. documented in this encounterNorth Kansas City HospitalZhszrmvwwa84-66-9086 History of Present illness Narrative* Raquel Nolan [...] 06/11/24 Discharged To: Home Setting [facility]charge [facility] Engagement Admission Date 06/11/24 Medications Discharge [...] or fail to improve. documented in this encounterNorth Kansas City HospitalVcnjykiwtz56-43-6509 NoteED Patient Education Note Gastroenterology Viral Gastroenteritis, [...] than 2 years. ??? Live in a long-term. ??? Travel on cruise ships. What are [...] and water are not available, use hand compliance mgr. ??? Make sure that all people in your household wash their hands well and often. ??? Take ngrj-sbc-whkzwfm and prescription medicines only as told by [...] emergency. Get help right (more content not included)...[facility]01-12-2025 Evaluation + Plan note Extracted from:Title:ED NoteAuthor:Narinder Kumar DODate:04/16/24 Abdominal pain, acute, epiga stric (R10.13: Epigastric pain) N&V (nausea and vomiting) (R11.2: Nausea with vomiting, unspecified) Orders: dicyclomine, 10 mg = 1 cap(s), Oral, QID, PRN Nausea/Vomiting, For abdominal cramping, # 16 cap(s),Refills(s) 0, Pharmacy: [facility], 177, cm, 04/15/24 21:15:00 [...] PRN Nausea/Vomiting, # 12 tab(s), Refills(s) 0, Pharmacy:[facility], 177, cm, 04/15/24 21:15:00 [...] CT Abdomen/Pelvis w/ Contrast eGFR Lipase Level [facility] 01-12-2025 Hospital Discharge instructions Patient [...] Follow these instructions at home: Medicines Take odlw-oqe-icssypv and prescription medicines only as told by [...] provider. Document Revised: 01/06/2023 Document Reviewed: 01/06/2023 MVERSE Patient Education 2023 [employer]. Follow Up Care 04/15/2024 20:34:28 With:Raquel Nolan Address: [address] [place] [address]- [facility] (1) When:04/19/2024 Comments:Call the office of your [...] you develop any new or worsening symptoms. [facility] 01-12-2025 NoteED Patient Education Note [...] these instructions at home: Medicines ??? Take fihf-hqu-ycyguka and prescription medicines only as told by [...] provider. Document Revised: 01/06/2023 Document Reviewed: 01/06/2023 [employer] (P) Patient Education ? 2023 [employer].[facility] 04-12-2024 Hospital Discharge instructions Patient Education 04/12/2024 18:34:01 Influenza, Adult, Yimv-vb-Upws Influenza, Adult Influenza is also called the [...] Your doctor may want you to: Take imtj-puh-fysxwmw medicines. Drink plenty of fluids. The flu [...] foods include: ?Bananas. ?Applesauce. ?Rice. ?Lean meats. ?Savage. ?Crackers. Do not eat or drink: ?Fluids that have a lot of sugar or caffeine. ?Alcohol. ?Spicy or fatty foods. General instructions Take apas-fes-opscbar and prescription medicines only as told by [...] use soap and water, use alcohol-based hand compliance mgr. Keep all follow-up visits. How is this [...] spreads easily from person to person. Take rhkc-nna-zexqdbc and prescription medicines only as told by your doctor. Getting a flu shot every year is the best way to not get the flu. This information is not intended to replace advice given to you by your health care provider. Make sure you discuss any questions you have with your health care provider. Document Revised: 11/06/2020 Document Reviewed: 11/08/2020 [employer] Patient Education 2023 [employer]. Follow Up Care 04/12/2024 13:30:03 With:Raquel Nolan MD Address: [place] [address]- When: Unknown [facility] 01-08-2025 NotePatient Education Infectious [...] doctor may want you to: ??? Take vmex-pdi-bpjkpml medicines. ??? Drink plenty of fluids. The [...] Applesauce. ? Rice. ? Lean meats. ? Savage. ? Crackers. ??? Do not eat or drink: ? Fluids that have a lot of sugar or caffeine. ? Alcohol. ? Spicy or fatty foods. General instructions ??? Take gmim-dxe-rwlgbni and prescription medicines only as told by [...] use soap and water, use alcohol-based hand compliance mgr. ??? Keep all follow-up visits. How is [...] the [place] ??? Do (more content not included)...[facility]12-18-2024 History of Present illness Narrative* Raquel Nolan [...] timestamp. Flowsheet Row Documentation from 03/21/2024 in [facility] with Amanda Rogers MA Hospital Information ED, Hospital or Custodial Facility Discharge? ED Patient has been contacted within 1 week of being seen in the ED Yes Discharge Date 03/20/24 Discharged To: Home Setting Discharge Hospital [facility] Engagement Admission Date 03/20/24 Medications Discharge [...] or fail to improve. documented in this encounterNorth [place] [id number] Hospital Discharge instructions Patient Education 03/20/2024 09:23:47 [...] Follow these instructions at home: Medicines Take pmpa-dkm-tuiucde and prescription medicines only as told by [...] provider. Document Revised: 11/20/2022 Document Reviewed: 11/20/2022 [employer] Patient Education 2023 [employer]. 03/20/2024 09:23:47 Abdominal Pain, Adult Abdominal Pain, [...] Follow these instructions at home: Medicines Take zpql-foh-rhexyem and prescription medicines only as told by [...] provider. Document Revised: 01/06/2023 Document Reviewed: 01/06/2023 [employer] (P) Patient Education 2023 [employer] Follow Up Care 03/20/2024 07:17:55 With:Raquel Nolan Address: [place] [address]- Business (1) When:03/23/2024 09:16:32 [facility] 12-16-2024 NoteED Patient Education Note [...] these instructions at home: Medicines ??? Take qdna-upd-becultd and prescription medicines only as told by [...] provider. Document Revised: 11/20/2022 Document Reviewed: 11/20/2022 [employer] Patient Education ? 2023 [employer]. Gastroenterology Abdominal Pain, Adult Pain in the [...] these instructions at home: Medicines ??? Take iknc-vvt-batrqnm and prescription medicines only as told by [...] you discuss any qu (more content not included)...[facility]12-11-2024 NotePatient Education ENT Cough, Adult A cough [...] these instructions at home: Medicines ??? Take xljp-pyo-zdphrqn and prescription medicines only as told by [...] provider. Document Revised: 11/20/2022 Document Reviewed: 11/20/2022 [employer] Patient Education ? 2023 [employer] Infectious Disease Viral Respiratory Infection A [...] home: Managing pain and congestion ??? Take tsxv-ujf-bpizzvo and prescription medicines only as told by [...] How is this pr (more content not included)...[facility] 12-22-2023 History of Present illness Narrative* WILMER Hernandez - 12/22/2023 10:30 AM EDT Reason for Appointment: Patient ID: Socorro Joseph is a 23 y.o. female who presents for No chief complaint on file. Patient presents today via telephone call for a telehealth appointment. Patients Phone #: [phone] (mobile) Current Medications: has a current medication list which includes the following prescription(s): albuterol hfa, ibuprofen, metformin, ondansetron, and ondansetron odt. Medical History: Active Ambulatory Problems Diagnosis Date Noted Depression ([facility]) 09/14/2022 CUONG II (cervical intraepithelial neoplasia II) 09/24/2022 Colitis 09/24/2022 Constipation 09/24/2022 Nausea 09/24/2022 Mechanical complication of intrauterine contraceptive device 09/24/2022 Moderate episode of recurrent major depressive disorder (HCC) ([facility]) 09/24/2022 Pelvic and perineal pain 09/24/2022 [...] hospitalized History of cervical dysplasia Post depression ([facility]) Smoker Family History Problem Relation Name [...] ENDOMETRIAL ABLATION 02/05/2023 PAP SMEAR 08/12/2021 negative MS SALPINGECTOMY COMPLETE/PARTIAL UNI/BI SPX 06/24/2022 robotic, fulguration [...] for a telehealth appointment. Patients Phone #: [phone] (mobile) Current Medications: has a current medication [...] ENDOMETRIAL ABLATION 02/05/2023 PAP SMEAR 08/12/2021 negative MS SALPINGECTOMY COMPLETE/PARTIAL UNI/BI SPX 06/24/2022 robotic, fulguration [...] behalf of: WILMER Hernandez documented in this encounterNorth [place] City [id number] History of Present illness Narrative* WILMER Hernandez - 12/13/2023 3:00 PM EDT Reason for Appointment: Patient ID: Socorro Joseph is a 23 y.o. female who presents for [facility] Patient presents today for Annual [...] episode of recurrent major depressive disorder (HCC) ([facility]) 09/24/2022 Pelvic and perineal pain 09/24/2022 Cigarette [...] hospitalized History of cervical dysplasia Post depression ([facility]) Smoker HISTORY PAST MEDICAL HISTORY SOCIAL HISTORY Past Medical History: Diagnosis Date Constipation History of abnormal cervical Pap smear Colpo: CUONG II; Leep - CUONG II, CUONG III History of being hospitalized [facility] inflammation of stomach and ovarian cyst pain History of cervical dysplasia Pelvic and perineal pain Post depression ([facility]) Smoker Social History Tobacco Use Smoking [...] ENDOMETRIAL ABLATION 02/05/2023 PAP SMEAR 08/12/2021 negative MS SALPINGECTOMY COMPLETE/PARTIAL UNI/BI SPX 06/24/2022 robotic, fulguration [...] nursing note reviewed. Exam conducted with a heavy equipment diesel mechanic present. Vitals: Estimated body mass index is [...] of: WILMER Hernandez documented in this encounterNOMS [id number] Hospital Discharge instructions Patient Education 06/30/2023 00:02:57 Nausea and Vomiting, Adult, Tbqq-dq-Uxvn Nausea and Vomiting, Adult Nausea is feeling [...] fruit juice). ?Low-calorie sports drinks. Eat bland, fdnt-be-yvjeep foods in small amounts as you are able, such as: ?Bananas. ?Applesauce. ?Rice. ?Low-fat (lean) meats. ?Savage. ?Crackers. Avoid drinking fluids that have a lot of sugar or caffeine in them. This includes energy drinks, sports drinks, and soda. Avoid alcohol. Avoid spicy or fatty foods. General instructions Take dbnn-cxf-ewkdybl and prescription medicines only as told by your doctor. Drink enough fluid to keep your pee (urine) pale yellow. Wash your hands often with soap and water for at least 20 seconds. If you cannot use soap and water, use hand compliance mgr. Make sure that everyone in your home [...] your doctor about eating and drinking. Take akqc-uop-ucylxaf and prescription medicines only as told by your doctor. Contact your doctor if your symptoms get worse or you have new symptoms. Keep all follow-up visits. This information is not intended to replace advice given to you by your health care provider. Make sure you discuss any questions you have with your health care provider. Document Revised: 09/26/2021 Document Reviewed: 09/26/2021 [employer] Patient Education 2022 [employer]. 06/30/2023 00:02:57 General Headache Without Cause, Uexh-gq-Thzd General Headache Without Cause A headache is pain or discomfort you feel around the head or neck area. There are many causes and types of headaches. In some cases, the cause may not be found. Follow these instructions at home: Watch your condition for any changes. Let your doctor know about them. Take these steps to help with your condition: Managing pain Take hcht-enf-djlnvca and prescription medicines only as told by [...] away. Call your local emergency services ([facility] [place] Do not wait to see [...] provider. Document Revised: 08/20/2021 Document Reviewed: 08/20/2021 [employer] Patient Education 2022 [employer] 06/30/2023 00:02:57 Abdominal Pain, Adult, Yzta-qv-Flgu Abdominal Pain, Adult Many things can cause belly (abdominal) pain. Most times, belly pain is not dangerous. Many cases of belly pain can be watched and treated at home. Sometimes, though, belly pain is serious. Your doctor will try to find the cause of your belly pain. Follow these instructions at home: Medicines Take todi-ysh-uftbkoh and prescription medicines only as told by [...] your belly pain for any changes. Take kxzj-nux-xhrqjet and prescription medicines only as told by [...] provider. Document Revised: 07/31/2019 Document Reviewed: 07/31/2019 [employer] Patient Education 2022 [employer]. Follow Up Care 06/29/2023 19:12:13 With:Raquel Nolan Address: [address] [place] [address]- Business (1) When:07/02/2023 Comments:You can take the medications as prescribed as needed for pain. Please follow-up with your primary care doctor in the next 2 to 3 days for further evaluation management. Please return to the ED for any new or worsening symptoms. [facility]03-26-2024 Evaluation + Plan noteExtracted from: [...] day(s), # 9 tab(s), Refills(s) 0, Pharmacy: [facility], 175, cm, 06/29/23 19:28:00 EDT, Height/Length Dosing, 82, kg, 06/29/23 19:28:00 EDT, Weight Dosing metoclopramide, 10 mg = 2 mL, Injection, IV Push, Once, Stop date 06/29/23 21:00:00 EDT, STAT, Start date 06/29/23 21:00:00 EDT, 06/29/23 21:00:00 EDT naproxen, 500 mg = 1 tab(s), Oral, BID, PRN for pain, # 20 tab(s), Refills(s) 0, Pharmacy: [facility], 175, cm, 06/29/23 19:28:00 EDT, Height/Length Dosing, 82, kg, 06/29/23 19:28:00 EDT, Weight Dosing ondansetron, 4 mg = 1 tab(s), Oral, q8hr, # 12 tab(s), Refills(s) 0, Pharmacy: [facility], 175, cm, 06/29/23 19:28:00 [...] Panel Lipase Level UA with Cult Rflx [facility]11-14-2023 Evaluation + Plan noteExtracted from: [...] Level Saline Lock Insert Troponin 0 Hr. [facility]11-14-2023 Hospital Discharge instructions Patient Education [...] water added (diluted fruit juice). Eat bland, xmkm-au-hsuqbb foods in small amounts as you are able. These foods include bananas, applesauce, rice, lean meats, toast, and crackers. Avoid fluids that contain a lot of sugar or caffeine, such as energy drinks, sports drinks, and soda. Avoid alcohol. Avoid spicy or fatty foods. General instructions Take ocet-ual-rxfmvet and prescription medicines only as told by your health care provider. Drink enough fluid to keep your urine pale yellow. Wash your hands often using soap and water for at least 20 seconds. If soap and water are not available, use hand compliance mgr. Make sure that everyone in your household [...] eating and drinking to prevent dehydration. Take sfff-yfr-denkcnx and prescription medicines only as told by [...] provider. Document Revised: 09/26/2021 Document Reviewed: 09/26/2021 [employer] Patient Education 2022 [employer]. Follow Up Care 02/16/2023 05:06:19 With:Lilliam Gonzalez Address: [address] [place] [phone]- Business (1) When:Within 3 Day(s) [facility]03-22-2023 NoteOPERATIVE NOTE OPERATION DATE: 06/24/2022 PROCEDURE: Robotic assisted bilateral laparoscopic salpingectomy, fulguration of ovarian endometrial implant. PREOPERATIVE DIAGNOSIS: Desires permanent sterilization, multiparity. POSTOPERATIVE DIAGNOSIS: Desires permanent sterilization, multiparity. ANESTHESIA: General. SURGEON: Shaan Witt D.O. GARDEN WORKER: ASHLEY Dominguez URINE OUTPUT: Yellow and clear. [...] lap and needle counts were correct x2.[facility] [id number] NoteHNO ID: [id number] Author: Javier Gutierrez MD Service: ? Author Type: Physician Type: Progress Notes Filed: 10/10/2021 3:41 PM Note Text: NAME: Socorro Joseph CLINIC NO: [id number] REASON FOR VISIT Socorro Joseph is a [...] No masses or organomegaly. (more content not included)...[facility]07-08-2022 History of Present illness Narrative* Javier Gutierrez MD - 10/10/2021 2:00 PM EDT NAME: Socorro Joseph [facility] NO: [id number] REASON FOR VISIT Socorro Joseph is a [...] 10, 2021 11:07 AM documented [facility] Hospital Discharge instructions Patient Education 09/18/2021 03:02:59 Ovarian Cyst, Biqs-wg-Quet Ovarian Cyst An ovarian cyst is a fluid-filled sac on an ovary. The ovaries are organs that make eggs in women. Most ovarian cysts go away on their own and are not cancerous (are benign). Some cysts need treatment. Follow these instructions at home: Take bgns-pje-xvhppzl and prescription medicines only as told by [...] 09/07/2008 Document Revised: 03/04/2018 Document Reviewed: 08/23/2016 [employer] Patient Education 2020 [employer]. 09/18/2021 03:02:59 Colitis Colitis Colitis is inflammation [...] if you start to feel better. Take ppfg-zjc-uqzupwd and prescription medicines only as told by [...] 04/29/2005 Document Revised: 09/22/2018 Document Reviewed: 09/22/2018 [employer] Patient Education [employer]. Follow Up Care 09/17/2021 22:00:56 With:Jeff ROACH Address: [facility] [address] [place] [address] Business (1) When:09/21/2021 Comments:Take The antibiotics as prescribed until you have completed the course. You can use the Zofran every 6 hours as needed for nausea and vomiting. You can use the [place] every 6 hours as needed for pain or the Bentyl every 8 hours. Please follow-up with your primary care doctor in addition to GI for further evaluation and management of the inflammation of your colon. Please return to the ED for any new or worsening symptoms. With:Raquel Nolan Address: [place] [address]- Business (1) When:Within 3 Day(s) [facility]06-15-2022 Evaluation + Plan noteExtracted from: [...] Date:11/19/2021 08:00:00 AM Scheduled Provider:Jeff ROACH MD Location:[facility] Digestive Health Appointment Type:[facility]04-13-2022 Hospital Discharge instructions Patient Education 07/16/2021 [...] 03/22/2006 Document Revised: 06/29/2018 Document Reviewed: 04/23/2017 [employer] Patient Education [employer]. Follow Up Care 07/16/2021 14:22:36 With:Sujit Mujica Address: [address] [place] [phone] Business (1) When:07/18/2021 16:29:07 Comments:Make sure to follow-up with Dr. Mujica as discussed. Return to the emergency room if your bleeding gets worse, you develop dizziness your abdominal pain gets worse or any new symptoms. With:Lilliam Gonzalez Address: [address] [place] [phone] Business (1) When:Within 3 Day(s) [facility]04-13-2022 Evaluation + Plan noteExtracted from: [...] Beta Hcg Qual UA With Cult Reflex [facility]* Diagnosis Constipation, unspecified constipation type- Primary [facility]* Diagnosis Wellness examination- Primary documented in [facility] encounter [facility]* Diagnosis Nausea- Primary Nausea alone Acute cough- Primary Nausea Nausea alone Nasal congestion Other diseases of nasal cavity and sinuses Ear fullness, bilateral BMI 27.0-27.9,adult Overweight documented in this encounter [facility]* Diagnosis Well woman exam with routine gynecological exam Routine gynecological examination PCOS (polycystic ovarian syndrome) Polycystic ovaries Nausea Nausea alone documented in this encounter [facility]* Diagnosis Nausea- Primary Nausea alone Leukocytosis, unspecified type- Primary Gastroesophageal reflux disease, unspecified whether esophagitis present BMI 26.0-26.9,adult Overweight documented in this encounter [facility]* Diagnosis Nausea- Primary Nausea alone Intractable episodic headache, unspecified headache type- Primary Nausea Nausea alone Facial tingling Overweight BMI 27.0-27.9,adult documented in this encounter [facility]* Diagnosis Nausea- Primary Nausea alone Acute diarrhea- Primary Diarrhea Nausea Nausea alone Abdominal cramping Abdominal pain, unspecified site documented in this encounter [facility]* Diagnosis Nausea- Primary Nausea alone Well woman exam with routine gynecological exam Routine gynecological examination UTI symptoms Exposure to STD Vaginal discharge Leukorrhea, not specified as infective documented in this encounter [facility]* Diagnosis Nausea- Primary Nausea alone Pre-operative exam Unspecified pre-operative examination Menorrhagia with irregular cycle Pelvic pain in female Unspecified symptom associated with female genital organs Dysmenorrhea Dyspareunia, female documented in this encounter [facility] [place] [facility] HospitalHospital course Narrative No data available for this section [facility] No data available for this section [facility] HospitalProgress note No data available for this section [facility] HospitalReason for referral (narrative)* Outpatient Procedure (Routine) - AuthorizedSpecialtyDiagnoses / ProceduresReferred By ContactReferred To [facility] Diagnoses Constipation, unspecified constipation type Procedures ADULT [place] ANORECTAL MANOMETRY ANORECTAL MANOMETRY Javier Gutierrez MD [address] [place] [address] [facility] [place] [address] [place], [place] [id number] Referral IDStatusReasonStart DateExpiration DateVisits RequestedVisits [id number] Auto-Generated Referral [facility] Summary Purpose Family History No Family [...] section and content) DATE CREATED AUTHOR 09/23/2017 [facility] DATE CREATED AUTHOR AUTHOR'S ORGANIZ ATION 11/07/2021 [facility] DATE CREATED AUTHOR AUTHOR'S ORGANIZ ATION 07/10/[address] [facility] DATE CREATED AUTHOR AUTHOR'S ORGANIZ ATION 12/16/2023 [facility] DATE CREATED AUTHOR AUTHOR'S ORGANIZ ATION 03/21/2024 [facility] DATE CREATED AUTHOR AUTHOR'S ORGANIZ ATION 04/18/2024 [facility] DATE CREATED AUTHOR AUTHOR'S ORGANIZ ATION 04/19/2024 [facility] DATE CREATED AUTHOR AUTHOR'S ORGANIZ ATION 06/12/2024 [facility] DATE CREATED AUTHOR AUTHOR'S ORGANIZ ATION 06/18/2024 [facility] DATE CREATED AUTHOR AUTHOR'S ORGANIZ ATION 06/20/2024 [facility] DATE CREATED AUTHOR AUTHOR'S ORGANIZ ATION 01/25/2025 [facility] EPIC Care Team (unrecognized sect ion and content) Team MemberRelationshipSpecialtyStart DateEnd Date Raquel Nolan MD [address] [place] [address] PCP - [facility]09/14/22 Raquel Nolan MD [address] [place] [address] PCP - [facility]10/03/22Te MemberRelationshipSpecialtyStart DateEnd Date Raquel Nolan MD [address] [place] [address] [facility]09/14/22 Raquel Nolan MD [address] [place] [address] [facility]10/03/22Te MemberRelationshipSpecialtyStart DateEnd Date Raquel Nolan MD [address] [place] [address] [facility] - [facility]09/14/22Te MemberRelationshipSpecialtyStart DateEnd Date Raquel Nolan MD [address] [place] [address] PCP - [facility]09/14/22Te MemberRelationshipSpecialtyStart DateEnd Date Raquel Nolan MD [address] [place] [address] [facility] - [facility]09/14/22 Raquel Nolan MD [address] [place] [address] [facility] - [facility]10/03/22Te MemberRelationshipSpecialtyStart DateEnd Date Raquel Nolan MD [address] [place] [address] [facility] - [facility]09/14/22 Raquel Nolan MD [address] [place] [address] [facility] - [facility]10/03/22Te MemberRelationshipSpecialtyStart DateEnd Date Raquel Nolan MD [address] [place] [address] [facility]09/14/22 Raquel Nolan MD [address] [place] [address] PCP - [employer] MemberRelationshipSpecialtyStart DateEnd Date Raquel Nolan MD [address] [place] [address] [facility]CP - [facility]09/14/22 Raquel Nolan MD [address] [place] [address] PCP - [employer] MemberRelationshipSpecialtyStart DateEnd Date Raquel Nolan MD [address] [place] [address] PCP - [facility]09/14/22 Raquel Nolan MD [address] [place] [address] PCP - [employer] [facility]08/03/24Team MemberRelationshipSpecialtyStart DateEnd Date Raquel Nolan MD [address] [place] [address] [facility]/14/22 Raquel Nolan MD [address] [place] [address] PCP - [employer]08/03/24Team MemberRelationshipSpecialtyStart DateEnd Date Raquel Nolan MD [address] [place] [address] PCP - [facility]09/14/22 Raquel Nolan MD [address] [place] [address] PCP - [employer]08/03/24Te MemberRelationshipSpecialtyStart DateEnd Date Raquel Nolan MD [address] [place] [address] [facility] Raquel Nolan MD [address] [place] [address] PCP - [employer]08/03/24Team MemberRelationshipSpecialtyStart DateEnd Date Raquel Nolan MD [address] [place] [address] PCP - [facility]09/14/22 Raquel Nolan MD [address] [place] [address] PCP - [employer]08/03/24Te MemberRelationshipSpecialtyStart DateEnd Raquel Nolan MD [address] [place] [address] PCP - [facility]09/14/22 Raquel Nolan MD [address] [place] [address] PCP - [employer]08/03/24Team MemberRelationshipSpecialtyStart DateEnd Date Raquel Nolan MD [address] [place] [address] PCP - [facility]09/14/22 Raquel Nolan MD [address] [place] [address] PCP - Dewayne Yun08/03/24 Source Comments (unrecognize d section and content) In the event this informatio n is protected by the Federal Confidentiality of Alcohol and Drug Abuse Patient Records regulations: The Federal rules restrict any use of the information to criminally investigate or prosecute any alcohol or drug abuse patient.[facility] Reason for Visit (unrecogniz ed section [...] BE BASED ON THE PRIMARY CLINICAL RECORDS. [employer] provides no warranty or guarantee of the accuracy or completeness of information in this document.
[2025-02-19] MEDS: PROMETHAZINE HCL 25 MG in 0.9 % SODIUM CHLORIDE 50 ML 204 MG IV (18:36)
[2025-02-19] MEDS: 0.9 % SODIUM CHLORIDE 250 ML 10 ML IV (20:39)
[2025-02-19] MEDS: CEFAZOLIN SODIUM/DEXTROSE,ISO 2 GM/50 ML PIGGYBACK IV (20:39)
[2025-02-19 22:00] LABS: Hematocrit 38.2 % (36.0-48.0); Hemoglobin 13.1 g/dL (12.0-16.0); Immature Granulocytes Abs Auto 0.03 10^3/uL (0.00-0.03); Immature Granulocytes Pct Auto 0.2 % (0.0-0.5); Lymphocytes Absolute Auto 1.0 10^3/uL (1.2-3.8); Mean Corpuscular HGB Conc 34.3 g/dL (29.9-35.2); Mean Corpuscular Hemoglobin 31.9 pg (26.7-34.0); Mean Corpuscular Volume 92.9 fL (81.0-99.0); Platelet Count 214 10^3/uL (150-450); Red Blood Count 4.11 10^6/uL (4.20-5.40); White Blood Count 12.2 10^3/uL (4.0-11.0)
== END 2025-02-19 22:30 | disposition home or self-care (01) ==
LOC: SURGOUT 18:27 → MS 22:10
PROVIDERS: PCP Student in an Organized Health Care Education/Training Program; Visit Provider Obstetrics & Gynecology
PROC: (CPT 840; principal; 2025-02-19 13:55)
DX: N92.0 Excessive and frequent menstruation with regular cycle (principal); N94.10 Unspecified dyspareunia; N94.6 Dysmenorrhea, unspecified; Z90.79 Acquired absence of other genital organ(s); K21.9 Gastro-esophageal reflux disease without esophagitis; F41.9 Anxiety disorder, unspecified; N80.9 Endometriosis, unspecified; E28.2 Polycystic ovarian syndrome; R10.30 Lower abdominal pain, unspecified; N72 Inflammatory disease of cervix uteri; F17.290 Nicotine dependence, other tobacco product, uncomplicated
CPT/HCPCS: 58570; 36415; 84702; 85025; 88307; 94667; G0378; J0131; J0690; J1100; J1171; J1453; J1885; J2003; J2250; J2405; J2550; J2704; J3010